=== PATIENT | female | born 1940 | race Caucasian/White ===

== ENCOUNTER 2022-08-05 10:03 | Outpatient (OUT) | payer MEDICARE, SELFPAY ==
--- NOTE | 2022-08-05 12:50 | PM.CN ---
Consult Note: HPI Data of Consult Patient: new to practice Consult date: 08/05/22 Requesting Physician: Guille Howard MD Primary Care Provider: Shruthi Monterroso MD Consult Narrative Reason for consult: Left knee pain Narrative: this is a pleasant 82-year-old female who presents for evaluation. She has increasing left knee pain that is worsened with ambulation. She previously underwent a left knee steroid injection several years ago, which provided significant relief for over a three-month period. She has not had any interventions or imaging since then. She utilizes Celebrex, which provided some relief. She otherwise denies adverse medication side effect or loss of bowel or bladder control. cc:: CC: Guille Howard MD Review of Systems ROS Status of ROS 10 or more systems reviewed and unremarkable except as noted in history and below Musculoskeletal Reports: joint pain (left knee) Exam Constitutional: Common normals: no apparent distress, oriented x3 and healthy appearing Respiratory: Common normals: normal respiratory effort Effort & inspection: able to speak in complete sentences Extremity: Common normals: normal to inspection Left lower extremity: knee joint (Tenderness to palpation. Crepitus noted with flexion and extension.) Neuro: Common normals: oriented x3, CN's II-XII intact bilaterally and no focal motor deficits Psych: Common normals: mental status grossly normal and cooperative Skin: Common normals: no rashes or lesions noted Assessment and Plan Assessment and Plan (1) Localized osteoarthritis of left knee: Plan this is a pleasant 82-year-old female who presents for evaluation. She has held physical and medical modalities, as listed above. We discussed that given her previous significant relief with a left knee injection, she may likely benefit from a repeated left knee steroid injection. Prior to this, I would like her to undergo a left knee x-ray. She is in agreement with this plan. Provided that there are no concerning acute findings, we will proceed with a left knee steroid injection. She is in agreement with this plan. Medications were reviewed, and no changes were made at this time. She will follow-up for the procedure.
== END 2022-08-05 10:04 ==
LOC: PM 10:03
PROVIDERS: PCP Specialist; Visit Provider Anesthesiology
DX: M17.12 Unilateral primary osteoarthritis, left knee (principal)
CPT/HCPCS: G0463

== ENCOUNTER 2022-08-05 11:13 | Outpatient (OUT) | payer MEDICARE, SELFPAY ==
--- NOTE | 2022-08-05 11:25 | XR_ITS ---
The [address] [address] Patient Name: BOB NEVAREZ MRN: [facility]:[id number] date: 1940 Sex: F Assigned Patient Location: [facility] Current Patient Location: [facility] Accession/Order Number: [id number] Exam Date: 08/05/2022 11:30 Report Date: 08/05/2022 13:04 At the request of: GAIL GIEDRAITIS Procedure: XR knee LT 4V EXAM: XR knee LT 4V HISTORY: Left Knee Pain COMPARISON: None. TECHNIQUE: 4 views FINDINGS: No acute fracture or dislocation. Moderate degenerative changes. Scattered calcified atherosclerotic disease of the SFA and popliteal artery. IMPRESSION: Moderate degenerative changes as described. Electronically authenticated by: PRECIOUS MAKI Date: 08/05/2022 13:04
== END 2022-08-05 11:14 ==
LOC: RAD 11:17
PROVIDERS: PCP Specialist; Visit Provider Anesthesiology
DX: M25.562 Pain in left knee (principal); M17.12 Unilateral primary osteoarthritis, left knee
CPT/HCPCS: 73564; G0463

== ENCOUNTER 2022-09-07 12:57 | Outpatient (OUT) | payer MEDICARE, SELFPAY | END 2022-09-07 12:58 | disposition home or self-care (01) | LOC: WC 12:57 | PROVIDERS: PCP Specialist; Visit Provider Podiatrist Foot & Ankle Surgery | DX: L60.3 Nail dystrophy (principal); G99.0 Autonomic neuropathy in diseases classified elsewhere; I73.89 Other specified peripheral vascular diseases | CPT/HCPCS: 11721 ==

== ENCOUNTER 2022-09-13 12:58 | Outpatient (RCR) | payer MEDICARE, SELFPAY | END 2022-09-30 11:00 | disposition home or self-care (01) | LOC: PT 12:58 | PROVIDERS: PCP Specialist; Visit Provider Family Medicine | DX: H83.09 Labyrinthitis, unspecified ear (principal) | CPT/HCPCS: 95992; 97110; 97140; 97161 ==

== ENCOUNTER 2022-09-21 12:51 | Outpatient (OUT) | payer MEDICARE, SELFPAY ==
--- NOTE | 2022-09-21 13:05 | US_ITS ---
The [address] [address] Patient Name: BOB NEVAREZ MRN: [facility]:[id number] date: 1940 Sex: F Assigned Patient Location: [place] Current Patient Location: [place] Accession/Order Number: [id number] Exam Date: 09/21/2022 13:15 Report Date: 09/21/2022 14:07 At the request of: RAMILA CASTILLO Procedure: US abdomen complete EXAM: US abdomen complete HISTORY: Right Upper Quadrant Pain COMPARISON: None. TECHNIQUE: Real-time complete abdomen ultrasound Findings: The visualized portions of the aorta and IVC are unremarkable. Evaluation of the pancreas is limited due to overlying bowel gas. The visualized portions unremarkable. The hepatic parenchyma is coarsened and echogenic. No focal intrahepatic mass. The main portal vein is patent and demonstrates hepatopedal flow. The gallbladder is surgically absent. No biliary ductal dilatation. The common bile duct measures 0.5 cm. The right and left kidneys measure 9.2 and 9.8 cm. There is a nonobstructing 1.0 x 0.6 x 0.6 cm left renal stone. No renal collecting system dilatation. Left anechoic lesions with posterior acoustic enhancement likely representing cysts. The largest is an exophytic cyst off the upper pole measuring 3.0 x 2.4 x 3.0 cm. No perinephric fluid collection. The spleen is nonenlarged measuring 11.0 cm unremarkable. No free abdominal fluid. US/US abdomen complete IMPRESSION: 1. Coarsened and echogenic hepatic parenchymal echotexture likely related to diffuse hepatocellular disease such as fatty infiltration. 2. Nonobstructing left renal stone. 3. Left renal cysts. Electronically authenticated by: EDGAR HEART Date: 09/21/2022 14:07
== END 2022-09-21 12:52 | disposition home or self-care (01) ==
LOC: US 12:52
PROVIDERS: PCP Specialist; Visit Provider Nurse Practitioner
DX: R10.11 Right upper quadrant pain (principal); N28.1 Cyst of kidney, acquired
CPT/HCPCS: 76700

== ENCOUNTER 2022-09-22 10:57 | Outpatient (OUT) | payer MEDICARE, SELFPAY ==
--- NOTE | 2022-09-22 11:03 | XR_ITS ---
[address] [address] Patient Name: BOB NEVAREZ MRN: [facility]:[id number] date: 1940 Sex: F Assigned Patient Location: Current Patient Location: [place] Accession/Order Number: [id number] Exam Date: 09/22/2022 11:10 Report Date: 09/22/2022 17:10 At the request of: RAMILA CASTILLO Procedure: XR DEXA axial skeleton EXAMINATION: XR DEXA axial skeleton, 09/22/2022 11:10 AM EDT HISTORY: Primary Ovarian Failure Z00.01 COMPARISON: 2006. TECHNIQUE: Dual-energy X-ray absorptiometry (DEXA) bone density study performed for the axial skeleton. HISTORY: Primary Ovarian Failure Z00.01 FINDINGS: Bone mineral density lumbar spine L1-L4 measures 1.451 g/sq cm. T score 2.3. WHO classification: Normal. This likely is elevated secondary to proliferative degenerative spondylosis Lowest bone mineral densities the right femoral trochanter measuring 0.637 g/sq cm. T score -1.9. WHO classification: Osteopenia. XR/XR DEXA axial skeleton IMPRESSION: Osteopenia. Moderate fracture risk Electronically authenticated by: CORDELL SANTOS Date: 09/22/2022 17:10
== END 2022-09-22 10:58 | disposition home or self-care (01) ==
LOC: US 10:57
PROVIDERS: PCP Specialist; Visit Provider Nurse Practitioner
DX: M81.0 Age-related osteoporosis without current pathological fracture (principal); E28.39 Other primary ovarian failure; M85.851 Other specified disorders of bone density and structure, right thigh
CPT/HCPCS: 77080

== ENCOUNTER 2022-10-05 09:57 | Outpatient (OUT) | payer MEDICARE, SELFPAY ==
--- NOTE | 2022-10-05 11:05 | CA_ITS ---
Patient: BOB NEVAREZ Exam Date: 10/05/2022 : 1940 Gender:F Ordering : DR NAOMY NAYLOR M.D. Admission #: [id number] Family : Order #: [id number] CLICK HERE TO VIEW EXAM ECHOCARDIOGRAM REPORT PROCEDURE: CA ECHO DOPPLER COMPLETE INDICATIONS: Aortic valve stenosis COMPARISON: None. DESCRIPTION: COMPLETE ECHOCARDIOGRAM Real-time transthoracic echocardiography with 2D, M-mode, spectral and color flow Doppler performed. QUALITY: Technical quality was good. LEFT VENTRICLE: Normal chamber size. Mild left ventricular hypertrophy. The septum is abnormal in motion, likely due to bundle branch block. Global left ventricular systolic function is normal. LV EF: Calculated left ventricular ejection fraction is 57%. DIASTOLIC: Grade I diastolic dysfunction. ATRIAL SEPTUM: LEFT ATRIUM: Mild dilatation. RIGHT ATRIUM: Normal chamber size. RIGHT VENTRICLE: Normal chamber size. Normal right ventricular systolic function. TRICUSPID VALVE: Normal mobility and thickness. No stenosis with trivial regurgitation. No evidence of pulmonary hypertension. RVSP 36 mmHg MITRAL VALVE: Normal mobility and thickness. No evidence of mitral valve stenosis. There is no mitral annular calcification. Trivial mitral regurgitation. AORTIC VALVE: Normal trileaflet appearance. Mildly calcified aortic valve. Mildly diminished mobility. Doppler velocity suggest mild aortic valve stenosis. DVI 0.5, Vmax 2.1m/s, Mean gradient 8.94 mmHg. Mild aortic regurgitation. AORTIC ROOT: Normal diameter and appearance. PULMONIC VALVE: Normal thickness and mobility. No stenosis. Trivial regurgitation. PERICARDIUM: No evidence of pericardial effusion. IVC: Collapses with inspirations. Normal size. PLEURA: CONCLUSION: 1. Mild left ventricular hypertrophy with normal global systolic function. LVEF is 55 to 60%. 2. Normal right ventricular size and systolic function. 3. Mild diastolic dysfunction. 4. Mild aortic valve stenosis with mild regurgitation. 5. Mildly elevated right-sided pressures. Adult Echocardiography Procedure Report Left Ventricle LVEDD (3.7 - 5.6 cm): 3.83 cm LVESD (2.2 - 4.0 cm): 2.71 cm LVIVS thickness (0.6 - 1.2 cm): 1.25 cm LVPW thickness (0.5 - 1.0 cm): 1.00 cm e': 0.04 m/s E - e': 16.53 LVOT Max Gradient: 4.39 mm[Hg] LVOT Area (cm2): 1.05 m/s Peak Velocity (LVOT): 1.05 m/s Mean Velocity (LVOT): 0.73 m/s LVOT Diameter 1.59 cm Left Ventricular Ejection Fraction: 56.94 % Left Atrium LA Volume Index (2D A2C): 29.28 ml/m2 Left Atrium Systolic Dimension: 2.94 cm Mitral Valve MV E to A Ratio: 0.55 Mitral Valve A-Wave Peak Velocity: 1.10 m/s Mitral Valve E-Wave Peak Velocity: 0.61 m/s Right Ventricle RV Internal Diastolic Dimension: 2.65 cm Aorta AO Root Diam: 3.29 cm Ascending Ao Diam: 3.15 cm Aortic Valve AoV Area (Peak Sami): 1.15 cm2, 0.99 cm2, 1.06 cm2, 1.06 cm2 AoV Area (VTI): 1.19 cm2, 1.01 cm2 Deceleration [place]: 1.45 m/s2 Pressure Half-Time: 739.45 ms Peak Velocity(Antegrade Flow): 2.10 m/s, 1.54 m/s, 1.98 m/s Peak Gradient(Antegrade Flow): 17.69 mm[Hg], 9.47 mm[Hg], 15.65 mm[Hg] Mean Velocity(Antegrade Flow): 1.38 m/s, 1.02 m/s Mean Gradient(Antegrade Flow): 8.94 mm[Hg], 4.84 mm[Hg] Velocity Time Integral: 39.10 cm, 27.13 cm Tricuspid Valve Peak Velocity (Regurgitant Flow): 2.87 m/s, 2.39 m/s, 2.71 m/s Pulmonic Valve Mean Gradient: 2.89 mm[Hg], 4.00 mm[Hg] Mean Velocity: 0.78 m/s, 0.91 m/s Peak Velocity: 1.36 m/s Peak Gradient: 5.83 mm[Hg], 9.25 mm[Hg] Right Atrium Right Atrium Systolic Pressure: 22.70 ml, 22.70 ml Dictated by: Naomy Naylor M.D. on 10/06/2022 at 13:08 Approved by: Naomy Naylor M.D. on 10/06/2022 at 13:13
== END 2022-10-05 09:58 | disposition home or self-care (01) ==
LOC: CARD 09:57
PROVIDERS: PCP Specialist; Visit Provider Internal Medicine Interventional Cardiology
DX: I35.0 Nonrheumatic aortic (valve) stenosis (principal)
CPT/HCPCS: 93306

== ENCOUNTER 2022-11-24 17:02 | Outpatient (RCR) | payer MEDICARE, SELFPAY | END 2022-12-10 16:37 | disposition home or self-care (01) | LOC: PT 17:02 | PROVIDERS: PCP Family Medicine; Visit Provider Family Medicine | DX: R42 Dizziness and giddiness (principal) | CPT/HCPCS: 97140; 97161 ==

== ENCOUNTER 2022-12-28 13:05 | Outpatient (OUT) | payer MEDICARE, SELFPAY | END 2022-12-28 13:06 | disposition home or self-care (01) | LOC: WC 13:05 | PROVIDERS: PCP Family Medicine; Visit Provider Podiatrist Foot & Ankle Surgery | DX: L60.3 Nail dystrophy (principal); G90.9 Disorder of the autonomic nervous system, unspecified; I73.9 Peripheral vascular disease, unspecified; B35.1 Tinea unguium | CPT/HCPCS: 11721 ==

== ENCOUNTER 2023-02-09 10:51 | Outpatient (OUT) | payer MEDICARE, SELFPAY ==
[2023-02-09 12:24] LABS: Alanine Aminotransferase 34 U/L (14-59); Albumin Globulin Ratio 1.1; Albumin Level 3.9 g/dL (3.4-5.0); Alkaline Phosphatase 83 U/L (46-116); Aspartate Amino Transferase 25 U/L (15-37); Bilirubin Direct 0.2 mg/dL (0.0-0.2); Bilirubin Total 0.9 mg/dL (0.2-1.0); Globulin 3.5 g/dL; Total Protein 7.4 g/dL (6.4-8.2)
[2023-02-10 06:09] LABS: HBsAg Screen Negative (Negative); HCV Ab Non Reactive (Non Reactive); Hep A Ab, Total Negative (Negative); Hep B Core Ab, Tot Negative (Negative); Hepatitis B Surf Ab Quant 27.4 mIU/mL (Immunity>9.9)
== END 2023-02-09 10:52 | disposition home or self-care (01) ==
LOC: LAB 10:53
PROVIDERS: PCP Family Medicine
DX: R10.11 Right upper quadrant pain (principal)
CPT/HCPCS: 36415; 80076; 86704; 86706; 86708; 86803; 87340

== ENCOUNTER 2023-03-22 13:30 | Outpatient (OUT) | payer MEDICARE, SELFPAY ==
--- OUTSIDE RECORDS SUMMARY | 2023-03-22 13:35 | XMS_ITS | CCD ---
Author Name Unknown Address [address] [place] [address] Organization [facility] Care Team Providers Care Patent Chemist Name Role Phone SHRUTHI MONTERROSO Primary Care Unavailable SHRUTHI MONTERROSO Referring Unavailable SUSANA OSAMA Admitting Unavailable SUSANA OSAOTTO Attending Unavailable IA Procedure Practitioner Unavailab BERTHA Ahumada Surgeon Unavailable CASEY GARSIA Attending Unavailable CASEY GARSIA Admitting Unavailable MONTERROSO ., DR SHRUTHI Yanes Primary Care Unavailable CASEY GARSIA Attending Unavailable MONTERROSO ., DR SHRUTHI Yanes Primary Care Unavailable CASEY GARSIA Admitting Unavailable TAISHA EATON Admitting Unavailable TAISHA EATON Consulting Unavailable TAISHA EATON Attending Unavailable MONTERROSO ., DR SHRUTHI Yanes Primary Care Unavailable MONTERROSO ., DR SHRUTHI Yanes Primary Care Unavailable MONTERROSO ., DR SHRUTHI Yanes Consulting Unavailable MONTERROSO ., DR SHRUTHI Yanes Attending Unavailable MONTERROSO ., DR SHRUTHI Yanes Admitting Unavailable MONTERROSO ., DR SHRUTHI Yanes Primary Care Unavailable MONTERROSO ., DR SHRUTHI Yanes Consulting Unavailable MONTERROSO ., DR SHRUTHI Yanes Attending Unavailable MONTERROSO ., DR SHRUTHI Yanes Admitting Unavailable MONTERROSO ., DR SHRUTHI Yanes Primary Care Unavailable MONTERROSO ., DR SHRUTHI Yanes Attending Unavailable MONTERROSO ., DR SHRUTHI Yanes Admitting Unavailable CASEY GARSIA Attending Unavailable MONTERROSO ., DR SHRUTHI Yanes Primary Care Unavailable CASEY GARSIA Admitting Unavailable CASEY GARSIA Attending Unavailable MONTERROSO ., DR SHRUTHI Yanes Primary Care Unavailable CASEY GARSIA Admitting Unavailable Yaniv De La Garza. Primary Care Physician SHAHBAZ SCHULTZ Attending Unavailable Asaad, Imad Unavailable Asaad, Imad Admitting Unavailable Clintad, Imad Attending Unavailable Yaniv De La Garza Primary Care Unavailable SHRUTHI MONTERROSO Attending Unavailable Yaniv De La Garza. Attending Unavailable Ross, Yaniv E. Attending Unavailable Yaniv De La Garza Attending Unavailable Marlee Malcolm Attending Unavailable Marlee Malcolm Attending Unavailable SHRUTHI MONTERROSO Admitting Unavailable SHRUTHI MONTERROSO Attending Unavailable Marlee Malcolm Attending Unavailable Marlee Malcolm Admitting Unavailable Joy Harper Attending Unavaila Yaniv Marshall Referring Unavailable Marlee Malcolm Attending Unavailable Marlee Malcolm Attending Unavailable Yaniv De La Garza Attending Unavailable SHRUTHI MONTERROSO Attending Unavailable Allergies Allergy Classification Reported Allergen(s) Allergy Type Date of Onset Reaction(s) Facility (1 source) Hicks powder; Translations: [hicks powder] Propensity to adverse reactions (disorder) [address] [facility] Rep[facility] (1 source) eggplant extract Drug Allergy [address] [facility] (3 sources) Sulfonamides (Antibiotic); Translations: [SULFA (SULFONAMIDE ANTIBIOTICS)] Propensity to adverse reactions (disorder) [address] [facility] (1 source) HYDROcodone Drug Allergy 0 [facility] (1 source) Sulfonamides (Antibiotic) Drug allergy (disorder) 3 [facility] (2 sources) Amoxicillin / Clavulanate; Translations: [amoxicillin-cla vulanate] Drug Allergy Unknown (qualifier value) [facility] (3 sources) Fluconazole; Translations: [fluconazole] Drug Allergy 3 Unknown (qualifier value) [facility] (2 sources) Sulfonamides (Antibiotic); Translations: [sulfa drugs] Drug allergy Unknown (qualifier value) [facility] (3 sources) traMADol; Translations: [tramadol] Drug Allergy 3 Unknown (qualifier value) [facility] (1 source) AMOXICILLIN-POT CLAVULANATE; Translations: [AMOXICILLIN-POT CLAVULANATE] Propensity to adverse reactions to drug (disorder) 3 [facility] Medications Current Medications Medication Drug Class(es) Dates Sig (Normalized) Sig (Original) ProAir HFA (1 source) beta2-Adrenergic Agonist Start: 09-08-2022 ProAir HFA Inhalation, q6hr Wheezing, Refill(s) 0 Start Date: 09/08/22 Status: Ordered Aspir-81 (2 sources) Aspir-81 Active aspirin 81 mg oral tablet (1 source) Platelet Aggregation Inhibitor, Nonsteroidal Anti-inflammatory Drug Start: 09-08-2022 take 81 mg by mouth once daily aspirin 81 mg, Oral, Daily, Refills(s) 0 Start Date: 09/08/22 Status: Ordered Symbicort (3 sources) Corticosteroid, beta2-Adrenergic Agonist Start: 09-08-2022 Symbicort 80/4.5, Inhalation, BID, Refill(s) 0 Start Date: 09/08/22 Status: Ordered take 2 puff(s) by inhalation twi ce daily Symbicort 80-4.5 MCG/ACT 2 puffs Inhalation Twice a day Active Symbicort Active Calcium Carbonate (3 sources) Start: 09-08-2022 Tums mg, Chewe d, Daily, Refills(s) 0 Start Date: 09/08/22 Status: Ordered Tums Active candesartan cilexetil 4 mg oral tablet (2 sources) Angiotensin 2 Receptor Mily Start: 09-08-2022 take 1 tablet by mouth once daily Atacand 4 mg Tab 4 mg = 1 tab(s), Oral, Daily, # 90 tab(s), Refills(s) 0, Pharmacy: [facility], 148, cm, 09/08/22 11:37:00 EDT, Height/Length Dosing, 63.6, kg, 09/08/22 11:37:00 EDT, Weight Dosing Start Date: 09/08/22 Status: Ordered Candesartan Cilexetil-HCTZ (1 source) Candesartan Cilexetil-HCTZ Active celecoxib 200 mg oral capsule (3 sources) Nonsteroidal Anti-inflammatory Drug Start: 07-05-2022 take 1 capsule by mouth twice daily as needed for pain celecoxib 200 mg Cap 200 mg = 1 cap(s), Oral, BID, as needed for pain, Refills(s) 0 Start Date: 07/05/22 Status: Ordered Celecoxib Active digoxin 0.125 mg oral tablet (3 sources) Cardiac Glycoside Start: 07-05-2022 take 1 tablet by mouth once daily digoxin 125 mcg (0.125 mg) Tab 125 mcg = 1 tab(s), Oral, Daily, Refills(s) 0 Start Date: 07/05/22 Status: Ordered Digoxin Active ICaps AREDS 2 (1 source) Start: 07-05-2022 ICaps AREDS 2 See Instructions, Refill(s) 0, take 2 orally daily Start Date: 07/05/22 Status: Ordered levothyroxine sodium 0.05 mg oral tablet (3 sources) l-Thyroxi ne Start: 07-05-2022 take 1 tablet by mouth once daily levothyroxine 50 mcg (0.05 mg) Tab 50 mcg = 1 tab(s), Oral, Daily, Refills(s) 0 Start Date: 07/05/22 Status: Ordered Levothyroxine So dium Active meclizine hydrochloride 25 mg oral tablet (1 source) Antiemetic Start: 08-25-2022 take 1 tablet by mouth every eight hours as needed for dizziness meclizine 25 mg Tab 25 mg = 1 tab(s), Oral, q8hr, as needed for dizziness, # 30 tab(s), Refills(s) 0, Pharmacy: [facility]/pharmacy #[id number], 147.8, cm, 07/26/22 15:28:00 EDT, Height/Length Dosing, 63.6, kg, 07/26/22 15:28:00 EDT, Weight Dosing Start Date: 08/25/22 Status: Ordered 24 hr metoprolol succinate 25 mg extended release oral tablet (2 sources) beta-Adrenergic Mily Start: 07-05-2022 take 1 tablet by mouth at bedtime metoprolol 25 mg ER Tab 25 mg = 1 tab(s), Oral, Bedtime, Refills(s) 0 Start Date: 07/05/22 Status: Ordered Metoprolol Tartr ate Not-Taking montelukast 10 mg oral tablet (3 sources) Leukotriene Receptor Antagonist Start: 08-22-2022 take 1 tablet by mouth once daily montelukast 10 mg Tab 10 mg = 1 tab(s), Oral, Daily, # 90 tab(s), Refills(s) 3, Pharmacy: [facility], 147.8, cm, 07/26/22 15:28:00 EDT, Height/Length Dosing, 63.6, kg, 07/26/22 15:28:00 EDT, Weight Dosing Start Date: 08/22/22 Status: Ordered Montelukast Sodi um Active PreserVision AREDS (2 sources) PreserVision ARE DS Active spironolactone 25 mg oral tablet (3 sources) Aldosterone Antagonist Start: 07-06-19 take 1 tablet by mouth once daily spironolactone 25 mg Tab 25 mg = 1 tab(s), Oral, Daily, Refills(s) 0 Start Date: 07/05/22 Status: Ordered Spironolactone A ctive Tylenol Extra Strength (1 source) Start: 09-08-2022 take 500 mg by mouth twice daily as needed for pain Tylenol Extra Strength 500 mg, Oral, BID, PRN as needed for pain, Refills(s) 0 Start Date: 09/08/22 Status: Ordered Problems Active Problems Problem Classification Problem Date Documented Date Episodic/Chronic Abdominal pain (3 sources) Right upper quadrant pain; Translations: [Right upper quadrant pain] Episodic Acquired foot deformities (1 source) Foot-drop 09-08-2022 Episodic Asthma (1 source) Asthma 09-08-2022 Chronic Conditions associated with dizziness or vertigo (5 sources) Benign paroxysmal vertigo, unspecified ear; Translations: [Labyrinthitis] Onset: 12-23-19 Episodic Conduction disorders (2 sources) Left bundle-branch block, unspecified; Translations: [Left bundle-branch block, unspecified] Onset: 10-21-19 Chronic Disorders of lipid metabolism (1 source) Hypercholesterolemia 07-05-2022 Chronic Diverticulosis and diverticulitis (1 source) Diverticular disease 07-05-2022 Chronic Essential hypertension (3 sources) Hypertensive disorder; Translations: [Essential (primary) hypertension] Onset: 10-21-1907-05-2022 Chronic Heart valve disorders (6 sources) Nonrheumatic aortic (valve) stenosis; Translations: [NONRHEUMATIC AORTIC VALVE STENOSIS] Onset: 07-20-19 Chronic Heart valve disorders (1 source) Heart murmur 07-05-2022 Episodic Comment on above: bicuspid aortic valv e Osteoarthritis (1 source) Osteoarthritis of hip 07-05-2022 Chronic Osteoporosis (1 source) Osteoporosis 07-05-2022 Chronic 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 OPERATOR infection and poliomyelitis (1 source) 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 Other gastrointestinal disorders (2 sources) Dysphagia; Translations: [Dysphagia, unspecified] Episodic Other hereditary and degenerative nervous system conditions (1 source) Restless legs 07-05-2022 Chronic Other liver diseases (2 sources) Steatosis of liver; Translations: [Fatty (change of) liver, not elsewhere classified] 07-05-2022 Chronic Other liver diseases (2 sources) Fatty (change of) liver, not elsewhere classified; Translations: [Fatty (change of) liver, not elsewhere classified] Onset: 12-28-19 Chronic Other nervous system disorders (1 source) Disorder of the autonomic nervous system, unspecified; Translations: [DISORDER AUTONOMIC NERVOUS SYS UNS] Onset: 03-11-19 Chronic Other nervous system disorders (1 source) Other disorders of autonomic nervous system; Translations: [OTH DISORDERS AUTONOMIC NERVOUS SYS] Onset: 12-11-19 Chronic Other nutritional; endocrine; and metabolic disorders (1 source) Overweight 07-05-2022 Episodic Other skin disorders (4 sources) Nail dystrophy; Translations: [NAIL DYSTROPHY] Onset: 06-09-19 Episodic Other upper respiratory disease (1 source) Allergic rhinitis 07-05-2022 Chronic Peripheral and visceral atherosclerosis (1 source) Peripheral vascular disease, unspecified; Translations: [PERIPHERAL VASCULAR DISEASE UNS] Onset: 03-11-19 Chronic Spondylosis; intervertebral disc disorders; other back problems (3 sources) Cervical spondylosis; Translations: [Lumbar spondylosis] 07-05-2022 Chronic Thyroid disorders (1 source) Hypothyroidism 07-05-2022 Chronic Unclassified (3 sources) COUGH, UNSPECIFIED; Translations: [COUGH, UNSPECIFIED] Onset: 09-11-19 Viral infection (1 source) COVID-19; Translations: [COVID-19] Onset: 09-11-19 Past or Other Problems Problem Classification Problem Date Documented Da te Episodic/Chronic Mycoses (2 sources) Tinea unguium; Translations: [Dermatophytosis, unspecified] Onset: 03-11-2022 Episodic Other circulatory disease (4 sources) Other specified symptoms and signs involving the circulatory and respiratory systems; Translations: [OTH SPEC SX SIGNS INVLV CIRC RS] Onset: 01-03-2022 Episodic Other skin disorders (1 source) Onychogryphosis; 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] Onset: 09-02-2021 Episodic Unclassified (1 source) COUGH, UNSPECIFIED; Translations: [COUGH, UNSPECIFIED] Onset: 09-07-2021 Results Test Name Value Interpretation Reference Range April tate Retail - Clinical Noteon Retail - Clinical Note [id number] 0TIFF Normal [facility] Ambulatory Visit Summaryon 1 Ambulatory Visit Summary UNA GOMEZ :1940 Visit Date:03/03/2023 Ambulatory Visit Instructions Your Diagnosis Body mass index [BMI] 28.0-28.9, adult Non-smoker Your Care Team Attending Physician - Marlee Martinez Primary Care Physician - Yaniv De La Garza MD This Is Your Medications List acetaminophen (Tylenol Extra Strength) albuterol (ProAir HFA) aspirin budesonide-formoterol (Symbicort) calcium carbonate (Tums) candesartan (Atacand 4 mg Tab) celecoxib (celecoxib 200 mg Cap) digoxin (digoxin 125 mcg (0.125 mg) Tab) levothyroxine (levothyroxine 50 mcg (0.05 mg) Tab) meclizine (meclizine 25 mg Tab) metoprolol (metoprolol 25 mg ER Tab) montelukast (montelukast 10 mg Tab) multivitamin with minerals (ICaps AREDS 2) spironolactone (spironolactone 25 mg Tab) Procedures Performed Cataracts, Cholecystectomy, Shoulder replacement. Discharge Vitals Temperature (Tympanic) 36.4 ?C Heart Rate (Peripheral) 88 Respiratory Rate 18 Blood Pressure 124/70 Height 148 cm Height 58 in Weight 64.1 kg Weight 141.02 lb BMI 29.26 What to do next Scheduled Follow-Up Appointments Monday 1:15 PM EST With: Yaniv De La Garza MD Where: [facility] Normal [address] [place] [id number].br\ Medications\.br\ What How Much When Instructions\.br \ Unchanged acetaminophen (Tylenol Extra Strength) 500 Milligram By Mouth 2 times a day as needed for as needed for pain\.br\ Unchanged albuterol (ProAir HFA) Inhalation Every 6 hours as needed for Wheezing\.br\ Unchanged aspirin 81 Milligram By Mouth Every day\.br\ Unchanged budesonide-formo terol (Symbicort) 80/4.5 Inhalation 2 times a day\.br\ Unchanged calcium carbonate (Tums) Chewed Every day\.br\ Unchanged candesartan (Atacand 4 mg Tab) 1 Tablets By Mouth Every day\.br\ Unchanged celecoxib (celecoxib 200 mg Cap) 1 Capsules By Mouth 2 times a day as needed for pain \.br\ Unchanged digoxin (digoxin 125 mcg (0.125 mg) Tab) 1 Tablets By Mouth Every day Duration: 90 Days\.br\ Unchanged levothyroxine (levothyroxine 50 mcg (0.05 mg) Tab) 1 Tablets By Mouth Every day\.br\ Unchanged meclizine (meclizine 25 mg Tab) 1 Tablets By Mouth Every 8 hours as needed for dizziness \.br\ Unchanged metoprolol (metoprolol 25 mg ER Tab) 1 Tablets By Mouth At bedtime\.br\ Unchanged montelukast (montelukast 10 mg Tab) 1 Tablets By Mouth Every day\.br\ Unchanged multivitamin with minerals (ICaps AREDS 2) See instructions take 2 orally daily \.br\ Unchanged spironolactone (spironolactone 25 mg Tab) 1 Tablets By Mouth Every day\.br\ Allergies\.br\ Augmentin (Unknown)\.br\ Diflucan (Unknown)\.br\ sulfa drugs (Unknown)\.br\ traMADol (Unknown)\.br\ Problems\.br\ Ongoing - Any problem that you are currently receiving treatment for.\.br\ Age-related osteoporosis without current pathological fracture\.br\ Asthma\.br\ Cervical spondylosis\.br\ Diverticular disease\.br\ Foot drop\.br\ Hypercholesterol emia\.br\ Hypothyroidism\. 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 Please share your experience with us by completing your survey. We appreciate your feedback and thank you for choosing us for your care.\.br\ \.br\ [facility] Family Medicine Office/Clini c Noteon 03-03-2023 Family Medicine Office/Clinic Note HPI Staff Una is a 82 year old female presenting for acute sick visit Respiratory C/O: Onset: 3 days Body aches: no Chest congestion: no Chills: no Cough: yes Sputum production: no Sore throat: no Ear complaints: no pressure and itching right ear worse Eye itching/watering: no Fever: no Headache: no Nasal congestion: yes Nasal discharge: yes Post nasal drip: yes Poor appetite: yes Reduced activity: no Sinus pain/pressure: no Sneezing: yes Wheezing: no Ill contacts: yes Remedies tried: emergent-c Questions/Concerns: pt needs refills on spironolactone, metoprolol and levothyroxine History of Present Illness pt presents today wit URI symptoms Review of Systems PHQ Score Initial Depression Screen Score: 0 SCORE ROS - Provider Constitutional: no fever, no chills, no sweats, no fatigue Respiratory: no shortness of breath, yes cough, no orthopnea, no wheezing. nasal congestion, ear pressure Cardiovascular: no chest pain, no palpitations, no edema. Neurologic: no headache, no dizziness, no numbness, no weakness. Physical Exam Vitals & Measurements T: 36.4 ?C(Tympanic) HR: 88(Peripheral) RR: 18 BP: 124/70 SpO2: 95% HT: 58 in HT: 148 cm WT: 64.1 kg WT: 141.02 lb BMI: 29.26 General: alert, no acute distress ENMT: oral mucosa moist, no pharyngeal erythema or exudate Cardiovascular: regular rate and rhythm, normal peripheral perfusion Respiratory: Lungs CTA, respirations non labored Extremities: no deformity, no trauma Neurological: oriented x 4, LOC appropriate for age, CN II-XII intact, motor strength equal & normal bilaterally, speech normal CHRISTOPHER ear canals impacted with cerumen Assessment/Plan 1. Cough (R05.9: Cough, unspecified) pt c/o worsening cough. has asthma and when she get URI's it sometimes turns into pneumonia. will treat with z teresa, medrol dose pack and tessalon pearls. samples of mucinex provided. RTC as needed 2. Nasal congestion (R09.81: Nasal congestion) pt c/o nasal congestion and sinus pressure 3. Body mass index [BMI] 28.0-28.9, adult (Z68.28: Body mass index [BMI] 28.0-28.9, adult) BMI education complete Ordered: azithromycin, = 1 packet(s), Oral, As Directed, as directed on package labeling, X 5 day(s), # 6 tab(s), Refills(s) 0, Pharmacy: [facility] #[id number], 148, cm, 03/03/23 13:51:00 EST, Height/Length Dosing, 64.1, kg, 03/03/23 13:51:00 EST, Weight Dosing benzonatate, 200 mg = 1 cap(s), Oral, TID, X 7 day(s), # 21 cap(s), Refills(s) 0, Pharmacy: [facility] #[id number], 148, cm, 03/03/23 13:51:00 EST, Height/Length Dosing, 64.1, kg, 03/03/23 13:51:00 EST, Weight Dosing 4. Non-smoker (Z78.9: Other specified health status) continue not smoking Ordered: azithromycin, = 1 packet(s), Oral, As Directed, as directed on package labeling, X 5 day(s), # 6 tab(s), Refills(s) 0, Pharmacy: [facility] #[id number], 148, cm, 03/03/23 13:51:00 EST, Height/Length Dosing, 64.1, kg, 03/03/23 13:51:00 EST, Weight Dosing benzonatate, 200 mg = 1 cap(s), Oral, TID, X 7 day(s), # 21 cap(s), Refills(s) 0, Pharmacy: [facility] #[id number], 148, cm, 03/03/23 13:51:00 EST, Height/Length Dosing, 64.1, kg, 03/03/23 13:51:00 EST, Weight Dosing 5. Cerumen impaction (H61.20: Impacted cerumen, unspecified ear) pt encouraged to get debrox ear drops and use for 1 week then make nurse visit appointment for irrigation Orders: methylPREDNISolone, = 1 packet(s), Oral, Once, as directed on package labeling, # 21 tab(s), Refills(s) 0, Pharmacy: [facility]acy #[id number], 148, cm, 03/03/23 13:51:00 EST, Height/Length Dosing, 64.1, kg, 03/03/23 13:51:00 EST, Weight Dosing Follow-up No qualifying data available Problem List/Past Medical History Ongoing Age-related osteoporosis without current pathological fracture Asthma Cerumen impaction Cervical spondylosis Cough Diverticular disease Foot drop Hypercholesterolemia Hypothyroidism Labyrinthitis Lumbar spondylosis Murmur Nasal congestion Non-seasonal allergic rhinitis due to pollen Osteoarthritis of hip Osteopenia Over weight Post-poliomyelitis muscular atrophy Primary hypertension Restless legs syndrome Right upper quadrant pain Squamous cell carcinoma in situ Steatosis of liver Thoracic spondylosis Historical No qualifying data Procedure/Surgical History Cataracts, Cholecystectomy, Shoulder replacement. Medications aspirin, 81 mg, Oral, Daily Atacand 4 mg Tab, 4 mg= 1 tab(s), Oral, Daily, 1 refills azithromycin 250 mg Tab, 1 packet(s), Oral, As Directed benzonatate 200 mg oral capsule, 200 mg= 1 cap(s), Oral, TID celecoxib 200 mg Cap, 200 mg= 1 cap(s), Oral, BID, 1 refills digoxin 125 mcg (0.125 mg) Tab, 125 mcg= 1 tab(s), Oral, Daily, 3 refills ICaps AREDS 2, See Instructions levothyroxine 50 mcg (0.05 mg) Tab, 50 mcg= 1 tab(s), Oral, Daily, 1 refills meclizine 25 mg Tab, 25 mg= 1 tab(s), Oral, q8hr methylPREDNISolone 4 mg tab dosepak, 1 packet(s), Oral, Once metoprolol 25 m (more content not included)... Normal [facility] Comment on above: Result Comment: Elec tronically Signed By: Marlee Martinez\.br\Date and Time Signed: 03/03/23 15:50 EST Consultation Noteon 12-28-19 Consultation Note [id number] [facility] Immunization Recordson 12-20 Immunization Records [id number] [facility] Discharge Note - PTon 2022 Discharge Note - PT [id number] [facility] Plan of Care - PT/OT/Speecho n 11-28-2022 Plan of Care - PT/OT/Speech [id number] 0CD:[address] [facility] Office Visiton 10-20-2022 Follow-up visit [id number] Una Gomez 1940 F Date Provider Department Center 10/20/2022 [id number] SCHULTZ CARD [facility] No family history on file Level of Service:05127 [place] OFFICE/OUTPATIENT ESTABLISHED LOW MDM 20-29 MIN Reason for Visit and Comments: Follow-up [135655] - Yearly follow up - go over echo results Normal [facility] Physician Referralon 023 Physician Referral [id number] CD:127 Normal [facility] Discharge Note - PTon 2022 Discharge Note - PT [id number] 0CD:127 Normal [facility] Dexa Scanson 09-27-2022 Dexa Scans [id number] 0CD:127 Normal [facility] Dexa Scanson 09-26-2022 Dexa Scans [id number] 0CD:127 Normal [facility] Family Medicine Office/Clini c Noteon 09-22-2022 Family Medicine Office/Clinic Note Chief Complaint establish care HPI Staff establish care Establish Care: History: asthma. htn, hypothyroid, hypercholesterolemia Last provider: Loc Any recent labs: 06/2021 Health Maintenance UTD: Colonoscopy: aged out not opposed to doing the cologard if you feel necessary Mammogram: doesn't get them anymore Pelvic/Pap: aged out covid: UTD Acute: Current issues/complaints: saw Marlee on monday for right side pain, toradol shot really helped, didn't start the medro dosepak due to already had vertigo and that was a side effect. Still having the vertigo will need her symbicort refilled ([facility]) there's another but she can't remember the other History of Present Illness Una Gomez is an 82-year-old female who presents today for a follow-up evaluation. She is still experiencing abdominal pain. She recently received an injection, which calmed everything down. It does not hurt right now, but she feels uncomfortable. She suspected that nuts can aggravate the pain, so she quit eating them. She had her gallbladder removed a couple of years ago. She states that it has always felt kind of wearing in there. She has an ultrasound coming up. She had a biopsy done. She states that it was a carcinoma. She has vertigo that is not going away. She has gone to physical therapy twice. The first time she went, she felt great. During the week she overdid it, she got too tired again and it started coming back. The last time she went to physical therapy last week, it did not go away. She has a follow-up appointment tomorrow. She has been trying to drink more water. She was prescribed a steroid which you can take many pills in a day then decreased it, but she was reading it and it said that it might cause dizziness so she has not taken it yet. She wants to get rid with the dizziness. Her dizziness was really bad this week. She has asthma and uses a Symbicort inhaler. Review of Systems PHQ Score Initial Depression Screen Score: 0 Physical Exam Vitals & Measurements T: 36.4 ?C(Oral) HR: 78(Peripheral) RR: 14 BP: 122/80 SpO2: 98% HT: 58 in HT: 148 cm WT: 63.14 kg WT: 138.908 lb BMI: 28.83 General: alert, no acute distress ENMT: oral mucosa moist, no pharyngeal erythema or exudate Cardiovascular: regular rate and rhythm, normal peripheral perfusion Respiratory: Lungs CTA, respirations non labored Extremities: no deformity, no trauma Neurological: oriented x 4, LOC appropriate for age, CN II-XII intact, motor strength equal & normal bilaterally, speech normal Assessment/Plan Total time spent preparing for the encounter, evaluating and assessing the patient, documenting the visit, and ordering appropriate follow-up work was 50 minutes. 1. Primary hypertension (I10: Essential (primary) hypertension) Patient's blood pressure is at goal. No concerns at this time. Continue on home medication. 2. Hypercholesterolemia (E78.00: Pure hypercholesterolemia, unspecified) Patient's cholesterol is low, a total of 107 mg/dL, triglycerides are 151mg/dL, HDL is 30 mg/dL, and LDL is 60 mg/dL. Patient is not on any cholesterol medicine at this time, so we will continue holding off for adding any cholesterol medication. Unsure where the hypercholesterolemia came from other than the triglycerides and at this time we will not be treating just a sole triglyceride issue. 3. Hypothyroidism, unspecified type (E03.9: Hypothyroidism, unspecified) Reviewed labs. Patient is doing well with her medication and the dosage. We will continue medication as before. 4. Age-related osteoporosis without current pathological fracture (M81.0: Age-related osteoporosis without current pathological fracture) Patient has not had any fracture. Patient takes calcium for this. 5. Labyrinthitis, unspecified laterality (H83.09: Labyrinthitis, unspecified ear) We will try low dose steroid to decrease the inflammation, increase hydration. Patient already has meclizine for this. Patient can take a half of meclizine as this helps her. Patient continues to see physical therapy, but encouraged the patient to continue with hydration to help. 6. Non-seasonal allergic rhinitis due to pollen (J30.1: Allergic rhinitis due to pollen) 7. Diverticular disease (K57.90: Diverticulosis of intestine, part unspecified, without perforation or abscess without bleeding) No issues at this time 8. BMI 28.0-28.9,adult (Z68.28: Body mass index [BMI] 28.0-28.9, adult) 9. Overweight (E66.3: Overweight) 10. Steatosis of liver (K76.0: Fatty (change of) liver, not elsewhere classified) This may be the cause of the pain in the right upper quadrant. Labs for the liver are within normal limits, so we will wait for the ultrasound. 11. 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 Do not see any statement about if clean margins have been taken. Unsure what the next steps are with this, so we will call the dermatology group this week to see what (more content not included)... [facility] Comment on above: Result Comment: Elec tronically Signed By: Yaniv De La Garza MD\.br\Date and Time Signed: 09/22/22 12:58 EDT\.br\Electronically Co-Signed By: Anneliese Anguiano\.br\Date and Time Co-Signed: 09/19/22 12:41 EDT\.br\Electronically Co-Signed By: Anneliese Anguiano\.br\Date and Time Co-Signed: 09/19/22 12:42 EDT Physician Referralon 023 Physician Referral [id number] 0CD:[address] [facility] RAD - Ultrasound Reporton RAD - Ultrasound Report [id number] 0CD:[address] [facility] Consenton 09-19-2022 Consent [id number] 0CD:[address] [facility] PT - Progress Noteson 2022 PT - Progress Notes [id number] 0CD:[address] [facility] Family Medicine Office/Clini c Noteon 09-16-2022 Family Medicine Office/Clinic Note Chief Complaint right side pain HPI Staff Una is an 82 year old presents with severe back pain, worsening on right side, started Wed. woke up with whole right side of back and rolled around to the middle, has had her gallbladder out and it's in that area now. ALso been dealing with vertigo for a few weeks did PT monday and felt great but over did it and vertigo is flared Pain characteristics: Pain location: right side of back and rotates around to the front in [facility] area Intensity:06/13 Onset: Mon woke this way Medication used: nothing but has tried stretching Opioids prescribed: n/a Medication agreement UTD: n/a Urine drug screen performed:n/a History of Present Illness pt presents today with R upper quadrant pain Review of Systems PHQ Score Initial Depression Screen Score: 0 ROS - Provider Constitutional: no fever, no chills, no sweats, no fatigue Respiratory: no shortness of breath, no cough, no orthopnea, no wheezing. Cardiovascular: no chest pain, no palpitations, no edema. Neurologic: no headache, no dizziness, no numbness, no weakness. right upper quadrant pain Physical Exam Vitals & Measurements HR: 82(Peripheral) RR: 16 BP: 118/66 SpO2: 93% HT: 58 in HT: 148 cm WT: 63.3 kg WT: 139.26 lb BMI: 28.9 General: alert, no acute distress ENMT: oral mucosa moist, no pharyngeal erythema or exudate Cardiovascular: regular rate and rhythm, normal peripheral perfusion Respiratory: Lungs CTA, respirations non labored Extremities: no deformity, no trauma Neurological: oriented x 4, LOC appropriate for age, CN II-XII intact, motor strength equal & normal bilaterally, speech normal negative rebound tenderness to abdomen. Assessment/Plan 1. Right upper quadrant pain (R10.11: Right upper quadrant pain) pt c/o right upper quadrant pain. she does not have her gallbladder. pt states the pain is the worst when she tries to get out of bed. then it lessens as she starts to move around. all questions answered. pt has appointment with Dr. De La Garza on Monday to establish care with him. I feel this pain may be musculoskeletal. Will give dose of toradol and a medrol dose pack for inflammation. will order abdominal ultrasound as well. order faxed to [facility] Ordered: methylPREDNISolone, = 1 packet(s), Oral, As Directed, as directed on package labeling, X 6 day(s), # 21 tab(s), Refills(s) 0, [id number], 148, cm, 09/16/22 15:05:00 EDT, Height/Length Dosing, 63.3, kg, 09/16/22 15:05:00 EDT, Weight Dosing 2. BMI 28.0-28.9,adult (Z68.28: Body mass index [BMI] 28.0-28.9, adult) BMI education complete Ordered: methylPREDNISolone, = 1 packet(s), Oral, As Directed, as directed on package labeling, X 6 day(s), # 21 tab(s), Refills(s) 0, [id number], 148, cm, 09/16/22 15:05:00 EDT, Height/Length Dosing, 63.3, kg, 09/16/22 15:05:00 EDT, Weight Dosing Body Mass Index (BMI) documented 3008F Current tobacco non-user 1036F Depression Screening Negative 3352F Fall Risk Screen 2 or more w/injury 1100F Influenza immunization administered or previously received 4274F Most recent diastolic blood pressure <80 mm Hg 3078F Systolic BP <130 mm Hg (Most Recent) 3074F 3. Over weight (E66.3: Overweight) see above Ordered: methylPREDNISolone, = 1 packet(s), Oral, As Directed, as directed on package labeling, X 6 day(s), # 21 tab(s), Refills(s) 0, [id number], 148, cm, 09/16/22 15:05:00 EDT, Height/Length Dosing, 63.3, kg, 09/16/22 15:05:00 EDT, Weight Dosing Body Mass Index (BMI) documented 3008F Current tobacco non-user 1036F Depression Screening Negative 3352F Fall Risk Screen 2 or more w/injury 1100F Influenza immunization administered or previously received 4274F Most recent diastolic blood pressure <80 mm Hg 3078F Systolic BP <130 mm Hg (Most Recent) 3074F Follow-up No qualifying data available Problem List/Past Medical History Ongoing Allergic rhinitis Asthma Cervical spondylosis Diverticular disease Foot drop Hypercholesterolemia Hypertension Hypothyroid Labyrinthitis Lumbar spondylosis Murmur Osteoarthritis of hip Osteoporosis Over weight Post-poliomyelitis muscular atrophy Restless legs syndrome Right upper quadrant pain Steatosis of liver Thoracic spondylosis Historical No qualifying data Procedure/Surgical History Cataracts, Cholecystectomy, Shoulder replacement. Medications aspirin, 81 mg, Oral, Daily Atacand 4 mg Tab, 4 mg= 1 tab(s), Oral, Daily celecoxib 200 mg Cap, 200 mg= 1 cap(s), Oral, BID digoxin 125 mcg (0.125 mg) Tab, 125 mcg= 1 tab(s), Oral, Daily ICaps AREDS 2, See Instructions levothyroxine 50 mcg (0.05 mg) Tab, 50 mcg= 1 tab(s), Oral, Daily meclizine 25 mg Tab, 25 mg= 1 tab(s), Oral, q8hr Medrol 4 mg Tab, 1 packet(s), Oral, As Directed metoprolol 25 mg ER Tab, 25 mg= 1 tab(s), Oral, Bedtime montelukast 10 mg Tab, 10 mg= 1 tab(s), Oral, Daily, 3 refills ProAir HFA, Inhalation, q6 (more content not included)... Normal [facility] Comment on above: Result Comment: Elec tronically Signed By: Marlee Martinez\.br\Date and Time Signed: 09/16/22 15:30 EDT Consultation Noteon 09-13-19 Consultation Note [id number] 0CD:127 Normal [facility] CHEMISTRYOrdered By: SYSTEM SYSTEM on 09-09-2022 Albumin [Mass/Vol] 4.4 g/dL Normal 3.3 - 5.0 gm/dL [facility] Albumin/Globulin [Mass ratio] 1.6 {ratio} Normal 1.1 - 2.2 [facility] ALP [Catalytic activity/Vol] 77 [iU]/d Normal 21 - 98 Int._Unit/L [facility] ALT No additional P-5'-P [Catalytic activity/Vol] 20 [iU]/d Normal 6 - 46 Int._Unit/L [facility] Anion gap [Moles/Vol] 12 mmol/L Normal 6 - 16 mEq/L [facility] AST [Catalytic activity/Vol] 25 [iU]/d Normal 5 - 43 Int._Unit/L [facility] Bilirubin [Mass/Vol] 1.1 mg/dL Normal 0.0 - 1.1 mg/dL [facility] Calcium [Mass/Vol] 9.4 mg/dL Normal 8.9 - 11.1 mg/dL [facility] Chloride [Moles/Vol] 104 mmol/L Normal 101 - 111 mmol/L [facility] Cholesterol [Mass/Vol] 107 mg/dL Low 120 - 200 mg/dL [facility] Cholesterol in HDL [Mass/Vol] 30 mg/dL Invalid Interpretation Code [facility] Cholesterol in LDL [Mass/Vol] 60 mg/dL Normal <=129mg/dL [facility] Cholesterol in VLDL [Mass/Vol] 30 mg/dL Normal 7 - 40 mg/dL [facility] CO2 [Moles/Vol] 26 mmol/L Normal 21 - 31 mmol/L [facility] Creatinine [Mass/Vol] 0.8 mg/dL Normal 0.5 - 1.3 mg/dL [facility] GFR/1.73 sq M.predicted among non-blacks MDRD (S/P/Bld) [Vol rate/Area] 73 mL/min/1.73 m2 Normal >=59mL/min/1.73 m2 FT [facility] S Globulin (S) [Mass/Vol] 2.8 g/dL Normal 1.4 - 4.0 gm/dL [facility] Glucose [Mass/Vol] 96 mg/dL Normal 55 - 199 mg/dL [facility] Potassium [Moles/Vol] 4.1 mmol/L Normal 3.5 - 5.3 mmol/L [facility] Protein [Mass/Vol] 7.2 g/dL Normal 6.0 - 7.8 gm/dL [facility] Sodium [Moles/Vol] 138 mmol/L Normal 135 - 145 mmol/L [facility] Triglyceride [Mass/Vol] 151 mg/dL High <=149mg/dL [facility] TSH Qn 1.42 m[IU]/L Normal 0.34 - 5.60 mcIU/mL [facility] Urea nitrogen [Mass/Vol] 13 mg/dL Normal 5 - 21 mg/dL [facility] Urea nitrogen/Creatinine [Mass ratio] 16 mg/mg Normal 10 - 20 [facility] Remisol CMPon 09-09-2022 Albumin [Mass/Vol] 4.4 g/dL Normal 3.3-5.0 [facility] Comment on above: Performed By: #### 2 [id number], [id number], 3456147, [id number] ####[facility] [address] [place] [address] Albumin/Globulin (S) [Mass conc ratio] 1.6 Normal 1.1-2.2 [facility] Comment on above: Performed By: #### 2 443283, [id number], 4569941, [id number] ####[facility] [address] [place] [address] ALP [Catalytic activity/Vol] 77 Int._Unit/L Normal 21-98 [facility] Comment on above: Performed By: #### 2 545843, 11026682, 1397187, 76385219 ####[facility] [address] [place] [address] ALT No additional P-5'-P [Catalytic activity/Vol] 20 Int._Unit/L Normal 6-46 [facility] Comment on above: Performed By: #### 2 641030, 89973241, 8397406, 75162760 ####[facility] [address] [place] [address] Anion gap [Moles/Vol] 12 mmol/L Normal 6-16 [facility] Comment on above: Performed By: #### 2 531466, 95381284, 6894622, 46203741 ####[facility] [address] [place] [address] AST [Catalytic activity/Vol] 25 Int._Unit/L Normal 5-43 [facility] Comment on above: Performed By: #### 2 370884, 58582856, 8863919, [id number] ####[facility] [address] [place] [address] Bilirubin [Mass/Vol] 1.1 mg/dL Normal 0.0-1.1 [facility] Comment on above: Performed By: #### 2 984642, 55063083, 7891917, 07803617 ####[facility] [address] [place] [address] Calcium [Mass/Vol] 9.4 mg/dL Normal 8.9-11.1 [facility] Comment on above: Performed By: #### 2 637712, 76409883, 5062799, 12898176 ####[facility] [address] [place] [address] Chloride [Moles/Vol] 104 mmol/L Normal 101-111 [facility] Comment on above: Performed By: #### 2 050341, 54043079, 8452078, 72357536 ####[facility] [address] [place] [address] CO2 [Moles/Vol] 26 mmol/L Normal 21-31 [facility] Comment on above: Performed By: #### 2 018987, 19161863, 0054808, 77370920 ####[facility] [address] [place] [address] Creatinine [Mass/Vol] 0.8 mg/dL Normal 0.5-1.3 [facility] Comment on above: Performed By: #### 2 715794, 93753704, 7990485, 01232729 ####[facility] [address] [place] [address] Globulin (S) [Mass/Vol] 2.8 g/dL Normal 1.4-4.0 [facility] Comment on above: Performed By: #### 2 135529, 79080425, 8177620, 06462970 ####[facility] [address] [place] [address] Glucose [Mass/Vol] 96 mg/dL Normal 55-199 [facility] Comment on above: Result Comment: If t his glucose result represents a fasting glucose, interpretation should refer to the following reference range: 55-99 mg/dL Performed By: #### 2 402476, 29447541, 6035309, 71146968 ####[facility] [address] [place] [address] Potassium [Moles/Vol] 4.1 mmol/L Normal 3.5-5.3 [facility] Comment on above: Performed By: #### 2 459971, 13868185, 5637104, 41873564 ####[facility] [address] [place] [address] Protein [Mass/Vol] 7.2 g/dL Normal 6.0-7.8 [facility] Comment on above: Performed By: #### 2 709866, 52985379, 4547057, 01411540 ####[facility] [address] [place] [address] Sodium [Moles/Vol] 138 mmol/L Normal 135-145 [facility] Comment on above: Performed By: #### 2 405700, 61813855, 5677688, 61594070 ####[facility] [address] [place] [address] Urea nitrogen [Mass/Vol] 13 mg/dL Normal 5-21 [facility] Comment on above: Performed By: #### 2 528486, 11378617, 0576572, 63975466 ####[facility] [address] [place] [address] Urea nitrogen/Creatinine [Mass ratio] 16 No Units Normal 10-20 [facility] Comment on above: Performed By: #### 2 776695, 69882323, 3271113, 73351009 ####[facility] [address] [place] [address] Lipid Panelon 09-09-2022 Cholesterol [Mass/Vol] 107 mg/dL Low 120-200 [facility] Comment on above: Performed By: #### 2 187181, 14376845, 8379028, 96503479 ####[facility] [address] [place] [address] Cholesterol in HDL [Mass/Vol] 30 mg/dL Invalid Interpretation Code [facility] Comment on above: Result Comment: HDL > or equal to 60 mg/dL: Low cardiovascular risk HDL < 40 mg/dL : High cardiovascular risk Performed By: #### 2 602082, 76794085, 5639583, 73618594 ####[facility] [address] [facility] [place] [address] Cholesterol in LDL [Mass/Vol] 60 mg/dL Normal <=129 [facility] Comment on above: Performed By: #### 2 335310, 94946097, 9779406, 97352344 ####[facility] [address] [facility] [place] [address] Cholesterol in VLDL [Mass/Vol] 30 mg/dL Normal 7-40 [facility] Comment on above: Performed By: #### 2 827790, 17952102, 4702925, 22666837 ####[facility] [address] [place] [address] Triglyceride [Mass/Vol] 151 mg/dL High <=149 [facility] Comment on above: Performed By: #### 2 920272, 98909973, 5349665, 90504076 ####[facility] [address] [place] [address] Nurse Consultation Noteon Nurse Consultation Note Physical Exam pt here for lab draw, pt tolerated well Assessment/Plan Well adult exam (Z00.00: Encounter for general adult medical examination without abnormal findings) Medications aspirin, 81 mg, Oral, Daily Atacand 4 mg Tab, 4 mg= 1 tab(s), Oral, Daily celecoxib 200 mg Cap, 200 mg= 1 cap(s), Oral, BID digoxin 125 mcg (0.125 mg) Tab, 125 mcg= 1 tab(s), Oral, Daily ICaps AREDS 2, See Instructions levothyroxine 50 mcg (0.05 mg) Tab, 50 mcg= 1 tab(s), Oral, Daily meclizine 25 mg Tab, 25 mg= 1 tab(s), Oral, q8hr metoprolol 25 mg ER Tab, 25 mg= 1 tab(s), Oral, Bedtime montelukast 10 mg Tab, 10 mg= 1 tab(s), Oral, Daily, 3 refills ProAir HFA, Inhalation, q6hr, PRN spironolactone 25 mg Tab, 25 mg= 1 tab(s), Oral, Daily Symbicort, 80/4.5, Inhalation, BID Tums, Chewed, Daily Tylenol Extra Strength, 500 mg, Oral, BID, PRN Allergies Augmentin (Unknown) Diflucan (Unknown) sulfa drugs (Unknown) traMADol (Unknown) Immunizations Vaccine Date Status Comments SARS-CoV-2 (COVID-19) [id number].[id number] 02/10/2022 Recorded influenza virus vaccine, inactivated 12/27/2021 Recorded SARS-CoV-2 (COVID-19) mRNA-1273 vaccine 03/17/2021 Recorded 2022-07-04: [id number] influenza virus vaccine, inactivated 02/10/2021 Recorded pneumococcal 23-valent vaccine 09/11/2020 Recorded SARS-CoV-2 (COVID-19) mRNA-1273 vaccine 05/05/2020 Recorded SARS-CoV-2 (COVID-19) mRNA-1273 vaccine 04/07/2020 Recorded pneumococcal 13-valent vaccine 09/12/2019 Recorded influenza virus vaccine, inactivated 02/01/2019 Recorded influenza virus vaccine, inactivated 01/30/2018 Recorded influenza virus vaccine, inactivated 03/04/2016 Recorded influenza virus vaccine, inactivated 03/18/2015 Recorded influenza, whole 01/17/2005 Recorded Normal [facility] TSH With T4fr Reflexon 09-09 TSH Qn 1.42 m[IU]/L Normal 0.34-5.60 [facility] Comment on above: Performed By: #### 2 120536, 07080990, 0959184, 17865500 ####[facility] [address] [place] [address] eGFRon 09-09-2022 GFR/1.73 sq M.predicted among non-blacks MDRD (S/P/Bld) [Vol rate/Area] 73 mL/min/1.73 m2 Normal >=59 [facility] Comment on above: Order Comment: Order added by Discern Expert. Result Comment: [employer]en[employer] Architect ivana kidney disease could be indicated at eGFR's of less than 60 mL/min/1.73m2. Kidney failure is indicated at less than 15 mL/min/1.73m2. Performed By: #### 2 441094, 94811991, 3167214, [id number] ####[facility] [address] [place] [address] Ambulatory Visit Summaryon 0 09-08-2022 Ambulatory Visit Summary UNA GOMEZ :1940 Visit Date:09/08/2022 Ambulatory Visit Instructions Your Diagnosis Annual visit for general adult medical examination with abnormal findings Ovarian failure Osteoporosis Other asthma Foot drop, unspecified foot Hypercholesterolemia Hypertension Over weight Hypothyroid Tests Performed BD Bone Density DEXA -- Results Pending -- Please visit your patient portal for your results or contact your primary care physician. Your Care Team Attending Physician - Yaniv De La Garza MD Primary Care Physician - Yaniv De La Garza MD This Is Your Medications List acetaminophen (Tylenol Extra Strength) albuterol (ProAir HFA) aspirin budesonide-formoterol (Symbicort) calcium carbonate (Tums) candesartan (Atacand 4 mg Tab) celecoxib (celecoxib 200 mg Cap) digoxin (digoxin 125 mcg (0.125 mg) Tab) levothyroxine (levothyroxine 50 mcg (0.05 mg) Tab) meclizine (meclizine 25 mg Tab) metoprolol (metoprolol 25 mg ER Tab) montelukast (montelukast 10 mg Tab) multivitamin with minerals (ICaps AREDS 2) spironolactone (spironolactone 25 mg Tab) Procedures Performed Cataracts, Cholecystectomy, Shoulder replacement. Discharge Vitals Heart Rate (Peripheral) 79 Blood Pressure 116/64 Height 148 cm Height 58 in Weight 63.6 kg Weight 139.92 lb BMI 29.04 What to do next Scheduled Follow-Up Appointments Monday 10:00 AM EDT With: Where: [facility] Invalid Interpretation Code [address] [place] [address]- \.br\ 2023 11:00 AM EDT \.br\ With:\.br\ Where: [facility] Family Medicine Office/Clini c Noteon 09-08-2022 Family Medicine Office/Clinic Note Chief Complaint Subsequent Medicare Wellness Visit Review of Systems PHQ Score Initial Depression Screen Score: 0 Physical Exam Vitals & Measurements HR: 79(Peripheral) BP: 116/64 SpO2: 94% HT: 148 cm HT: 58 in WT: 63.6 kg WT: 139.92 lb BMI: 29.04 Assessment/Plan 1. Annual visit for general adult medical examination with abnormal findings (Z00.01: Encounter for general adult medical examination with abnormal findings) The patient was given a customized and personalized print out of all the current AHRQ USPSTF?s recommendations for preventative services and all current CDC recommended immunizations, relevant risk recommendations and the following patient brochures were given. Reviewed Medicare preventative services checklist. CDC-Falls Prevention and home safety screening reviewed. Patient reports 1 fall in last 12 months, voices no worry about falling, exhibits no problems with sitting, standing, or ambulation. Pt voices understanding with keeping walk way area free of clutter to prevent tripping and/or falling. [place] Advance Directives reviewed, patient has LW/POA at home, encouraged to bring documents to office for scanning to chart. Patient denies any problems with ADL?s and Instrumental ADL?s. Cognitive screening completed with memory and clock face drawing, no deficits noted. Immunization Record reviewed with the patient. Discussed Shingrix vaccine with educational handout and availability. COVID vaccines have been administered, with 2 boosters, immunization record is up to date. Allergies and medications reviewed and up to date. Patient denies concerns with taking medication as prescribed, reviewed OTC medications with patient, medication list up to date. Blood tests were reviewed: Discussed what tests need to be updated. Labs were ordered, will have completed prior to next PCP visit. Nurse visit scheduled: 09/09/2022 Will have labs completed with [facility]. Patient denies coloscopy, states Cologuard in past was negative, records requested. Mammograms stopped at age 78, pt encouraged to continue with self breast exams. Reviewed pain symptoms with patient: reports left leg and right side pain, 3-4/10. Patient continues taking Celebrex and Tylenol as needed for pain, states effective. Patient continue exercises at home, learned from different therapies. Reviewed all outside providers that patient follows. Last visit summary notes available in chart and/or have been requested. Follow up scheduled, 09/19/2022 AWV has been scheduled, 09/14/2023 Medicare provides yearly screening for alcohol and depression concerns. This is completed during our Medicare Wellness visit for those who do not have a current diagnosis of depression or concerns with alcohol use. I spent a total of 17 minutes on this date of service which included preparing to see the patient, face to face patient care, completing clinical documentation, obtaining and/or reviewing separately obtained history, counseling and educating the patient with handouts. Explanations were provided with reviewing questionnaires. AUDIT risk assessment screening completed, risk score 0, with patient denying concerns with use. Completed PHQ-2 risk assessment for depression with risk score 0, negative findings. Patient has been reminded to notify the provider if there would be a change or concerns with symptoms with fear, unable to sleep, worrying too much or feeling down and/or sad with lost of interest with daily activities. Will continue to monitor with screening yearly during Medicare wellness visits. 2. Ovarian failure (E28.39: Other primary ovarian failure) Reviewed recommended bone mineral density testing for women who are 65 years of age or older. Medicare recommends testing every 5 years if results are WNL and every 2 years if results shows low bone mass. This is a deterioration of bone structure and can increase the risk of a fracture with falls. Eating a well-balanced diet with plenty of Calcium and Vitamin D will help to protect your bones. Daily weight-bearing physical activity can help build strong bones, improve bone amounts, and may reduce the risk of weakening of bones (Osteoporosis) later in life. Dexa scan ordered today, order faxed to [facility]. 3. Osteoporosis (M81.0: Age-related osteoporosis without current pathological fracture) Patient not currently taking any medication at this time. Patient denies any issues or concerns. Also see above #2. 4. Other asthma (J45.998: Other asthma) Patient using inhalers daily as directed with effectiveness. Encouraged to remain active. Patient no longer follows miller head wet process, states asthma has been under good control for years. Will continue to monitor for changes and/or concerns with office visits. Pulse ox today was 94%. 5. Foot drop, unspecified foot (M21.379: Foot drop, unspecified foot) Patient denies issues or concerns at this time. Patient continues to wear foot brace. Patient will continue to follow up with PCP as needed (more content not included)... Normal [facility] Comment on above: Result Comment: Elec tronically Signed By: Marlee Martinez\.br\Date and Time Signed: 09/08/22 12:54 EDT\.br\Electronically Co-Signed By: Sean Ford\.br\Date and Time Co-Signed: 09/08/22 12:12 EDT Patient Educationon 09-09-19 Patient Education Endocrinology Hypothyroidism Hypothyroidism is when the thyroid gland does not make enough of certain hormones. This is called an underactive thyroid. The thyroid gland is a small gland located in the lower front part of the neck, just in front of the windpipe (trachea). This gland makes hormones that help control how the body uses food for energy (metabolism) as well as how the heart and brain function. These hormones also play a role in keeping your bones strong. When the thyroid is underactive, it produces too little of the hormones thyroxine (T4) and triiodothyronine (T3). What are the causes? This condition may be caused by: ? Enzo's disease. This is a disease in which the body's disease-fighting system (immune system) attacks the thyroid gland. This is the most common cause. ? Viral infections. ? . ? Certain medicines. ? defects. ? Problems with a gland in the center of the brain (pituitary gland). ? Lack of enough iodine in the diet. Other causes may include: ? Past radiation treatments to the head or neck for cancer. ? Past treatment with radioactive iodine. ? Past exposure to radiation in the environment. ? Past surgical removal of part or all of the thyroid. What increases the risk? You are more likely to develop this condition if: ? You are female. ? You have a family history of thyroid conditions. ? You use a medicine called lithium. ? You take medicines that affect the immune system (immunosuppressants). What are the signs or symptoms? Common symptoms of this condition include: ? Not being able to tolerate cold. ? Feeling as though you have no energy (lethargy). ? Lack of appetite. ? Constipation. ? Sadness or depression. ? Weight gain that is not explained by a change in diet or exercise habits. ? Menstrual irregularity. ? Dry skin, coarse hair, or brittle nails. Other symptoms may include: ? Muscle pain. ? Slowing of thought processes. ? Poor memory. How is this diagnosed? This condition may be diagnosed based on: ? Your symptoms, your medical history, and a physical exam. ? Blood tests. You may also have imaging tests, such as an ultrasound or MRI. How is this treated? This condition is treated with medicine that replaces the thyroid hormones that your body does not make. After you begin treatment, it may take several weeks for symptoms to go away. Follow these instructions at home: ? Take sjpo-yfi-ddckxen and prescription medicines only as told by your health care provider. ? If you start taking any new medicines, tell your health care provider. ? Keep all follow-up visits as told by your health care provider. This is important. ? As your condition improves, your dosage of thyroid hormone medicine may change. ? You will need to have blood tests regularly so that your health care provider can monitor your condition. Contact a health care provider if: ? Your symptoms do not get better with treatment. ? You are taking thyroid hormone replacement medicine and you: ? Sweat a lot. ? Have tremors. ? Feel anxious. ? Lose weight rapidly. ? Cannot tolerate heat. ? Have emotional swings. ? Have diarrhea. ? Feel weak. Get help right away if: ? You have chest pain. ? You have an irregular heartbeat. ? You have a rapid heartbeat. ? You have difficulty breathing. These symptoms may be an emergency. Get help right away. Call 911. ? Do not wait to see if the symptoms will go away. ? Do not drive yourself to the hospital. Summary ? Hypothyroidism is when the thyroid gland does not make enough of certain hormones (it is underactive). ? When the thyroid is underactive, it produces too little of the hormones thyroxine (T4) and triiodothyronine (T3). ? The most common cause is Enzo's disease, a disease in which the body's disease-fighting system (immune system) attacks the thyroid gland. The condition can also be caused by viral infections, medicine, , or past radiation treatment to the head or neck. ? Symptoms may include weight gain, dry skin, constipation, feeling as though you do not have energy, and not being able to tolerate cold. ? This condition is treated with medicine to replace the thyroid hormones that your body does not make. This information is not intended to replace advice given to you by your health care provider. Make sure you discuss any questions you have with your health care provider. Document Revised: 02/22/2022 Document Reviewed: 02/22/2022 [employer] Patient Education ? 2022 [employer]. Nutrition High Cholesterol High cholesterol is a condition in which the blood has high levels of a white, waxy substance similar to fat (cholesterol). The liver makes all the cholesterol that the body needs. The human body needs small amounts of cholesterol to help build cells. A person gets extra or excess cholesterol from the food that he o (more content not included)... Normal [facility] Screenson 09-08-2022 Screens [id number] 0CD:[address] [facility] Physician Referralon 023 Physician Referral [id number] 0CD:[address] [facility] Pathology Noteon 08-09-2022 Pathology Note [id number] 0CD:[address] [facility] Pathology Reporton Pathology Report [id number]. 00CD:[address] [facility] Nurse Consultation Noteon Nurse Consultation Note Reason for Visit Patient presents for suture removal, lesions excised from anterior front left clavicle area. Incision intact, no signs of infection, healing well, 3 sutures removed Medications Atacand 4 mg Tab, 4 mg= 1 tab(s), Oral, Daily celecoxib 200 mg Cap, 200 mg= 1 cap(s), Oral, BID digoxin 125 mcg (0.125 mg) Tab, 125 mcg= 1 tab(s), Oral, Daily famotidine 40 mg Tab, 40 mg= 1 tab(s), Oral, Daily ICaps AREDS 2, See Instructions levothyroxine 50 mcg (0.05 mg) Tab, 50 mcg= 1 tab(s), Oral, Daily metoprolol 25 mg ER Tab, 25 mg= 1 tab(s), Oral, Bedtime montelukast 10 mg Tab, 10 mg= 1 tab(s), Oral, Daily Proventil HFA 90 mcg/inh Aerosol, 2 puff(s), Inhalation, q4hr spironolactone 25 mg Tab, 25 mg= 1 tab(s), Oral, Daily Allergies Augmentin (Unknown) Diflucan (Unknown) sulfa drugs (Unknown) traMADol (Unknown) Immunizations Vaccine Date Status Comments SARS-CoV-2 (COVID-19) mRNAMUL.ORD![id number] 02/10/2022 Recorded influenza virus vaccine, inactivated 12/27/2021 Recorded SARS-CoV-2 (COVID-19) mRNA-1273 vaccine 03/17/2021 Recorded 2022-07-04: [id number] influenza virus vaccine, inactivated 02/10/2021 Recorded pneumococcal 23-valent vaccine 09/11/2020 Recorded SARS-CoV-2 (COVID-19) mRNA-1273 vaccine 05/05/2020 Recorded SARS-CoV-2 (COVID-19) mRNA-1273 vaccine 04/07/2020 Recorded pneumococcal 13-valent vaccine 09/12/2019 Recorded influenza virus vaccine, inactivated 02/01/2019 Recorded influenza virus vaccine, inactivated 01/30/2018 Recorded influenza virus vaccine, inactivated 03/04/2016 Recorded influenza virus vaccine, inactivated 03/18/2015 Recorded influenza, whole 01/17/2005 Recorded Normal [facility] Physician Referralon 023 Physician Referral [id number] 0CD:127 Normal [facility] Ambulatory Visit Summaryon 0 07-26-2022 Ambulatory Visit Summary UNA GOMEZ :1940 Visit Date:07/26/2022 Ambulatory Visit Instructions Your Diagnosis BMI 29.0-29.9,adult Over weight Neoplasm of uncertain behavior of skin Tests Performed Pathology Tissue Exam -- Results Pending -- Please visit your patient portal for your results or contact your primary care physician. Your Care Team Attending Physician - SHRUTHI MONTERROSO MD Primary Care Physician - SHRUTHI MONTERROSO MD This Is Your Medications List albuterol (Proventil HFA 90 mcg/inh Aerosol) candesartan (Atacand 4 mg Tab) celecoxib (celecoxib 200 mg Cap) digoxin (digoxin 125 mcg (0.125 mg) Tab) famotidine (famotidine 40 mg Tab) levothyroxine (levothyroxine 50 mcg (0.05 mg) Tab) metoprolol (metoprolol 25 mg ER Tab) montelukast (montelukast 10 mg Tab) multivitamin with minerals (ICaps AREDS 2) spironolactone (spironolactone 25 mg Tab) Procedures Performed Cataracts, Cholecystectomy, Shoulder replacement. Discharge Vitals Heart Rate (Peripheral) 71 Respiratory Rate 16 Blood Pressure 138/72 Height 147.8 cm Height 58 in Weight 63.6 kg Weight 139.92 lb BMI 29.11 What to do next Scheduled Follow-Up Appointments Monday 10:20 AM EDT With: Where: [place] [id number]- \.br\ Medications\.br\ What How Much When Instructions\.br \ Unchanged albuterol (Proventil HFA 90 mcg/ inh Aerosol) 2 Puffs Inhalation Every 4 hours as needed \.br\ Unchanged candesartan (Atacand 4 mg Tab) 1 Tablets By Mouth Every day\.br\ Unchanged celecoxib (celecoxib 200 mg Cap) 1 Capsules By Mouth 2 times a day as needed for pain \.br\ Unchanged digoxin (digoxin 125 mcg (0.125 mg) Tab) 1 Tablets By Mouth Every day\.br\ Unchanged famotidine (famotidine 40 mg Tab) 1 Tablets By Mouth Every day\.br\ Unchanged levothyroxine (levothyroxine 50 mcg (0.05 mg) Tab) 1 Tablets By Mouth Every day\.br\ Unchanged metoprolol (metoprolol 25 mg ER Tab) 1 Tablets By Mouth At bedtime\.br\ Unchanged montelukast (montelukast 10 mg Tab) 1 Tablets By Mouth Every day\.br\ Unchanged multivitamin with minerals (ICaps AREDS 2) See instructions take 2 orally daily \.br\ Unchanged spironolactone (spironolactone 25 mg Tab) 1 Tablets By Mouth Every day\.br\ Allergies\.br\ Augmentin (Unknown)\.br\ Diflucan (Unknown)\.br\ sulfa drugs (Unknown)\.br\ traMADol (Unknown)\.br\ Problems\.br\ Ongoing - Any problem that you are currently receiving treatment for.\.br\ Allergic rhinitis\.br\ Asthma\.br\ Cervical spondylosis\.br\ Diverticular disease\.br\ Foot drop\.br\ Hypercholesterol emia\.br\ Hypertension\.br \ Hypothyroid\.br\ Labyrinthitis\.b r\ Lumbar spondylosis\.br\ Murmur\.br\ Osteoarthritis of hip\.br\ Osteoporosis\.br \ Over weight\.br\ Restless legs syndrome\.br\ Steatosis of liver\.br\ Thoracic spondylosis\.br\ \.br\ [facility] Medicine Office/Clini c Noteon 07-26-2022 Family Medicine Office/Clinic Note Chief Complaint excision lesion on neck HPI Staff Here for excision of a lesion on left side of her neck Review of Systems PHQ Score Initial Depression Screen Score: 0 Physical Exam Vitals & Measurements HR: 71(Peripheral) RR: 16 BP: 138/72 SpO2: 93% HT: 58 in HT: 147.8 cm WT: 63.6 kg WT: 139.92 lb BMI: 29.11 LESION ON LEFT SCAPULA 0.8 CM BY 0.4 CM. MAJOR RISKS AND BENEFITS EXPLAINED. STERILE SCRUB, LOCAL 1% XYLOCAINE ELLIPTICAL EXCISION WITH WIDE MARGINS. LESION REMOVED AND SENT TO PATHOLOGY. CLOSE WITH 3-0 NYLON X3 KEEP COVERED FOR 24 HOURS. AFTER THAT DOES NOT HAVE TO COVER AND MAY SHOWER WITH SOAP AND WATER BUT NO IMMERSION IN WATER, IE SWIMMING ETC. HYDROGEN PEROXIDE TID EXPLAINED. REMOVE STITCHES IN 10-14 DAYS. RTO FOR EVIDENCE OF INFECTION, EXPLAINED. Assessment/Plan SENT FOR PATHOLOGY READING. 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 Benign neoplasm of skin (D23.9: Other benign neoplasm of skin, unspecified) 3. BMI 29.0-29.9,adult (Z68.29: Body mass index [BMI] 29.0-29.9, adult) Ordered: Body Mass Index (BMI) documented 3008F Current tobacco non-user 1036F Depression Screening Negative 3352F Influenza immunization administered or previously received 4274F Most recent diastolic blood pressure <80 mm Hg 3078F Pathology Tissue Exam Patient screen for fall risk: no falls in last year or 1 fall with no injury in last year 1101F Systolic BP 130-139 mm Hg (Most Recent) 3075F 4. Over weight (E66.3: Overweight) Ordered: Body Mass Index (BMI) documented 3008F Current tobacco non-user 1036F Depression Screening Negative 3352F Influenza immunization administered or previously received 4274F Most recent diastolic blood pressure <80 mm Hg 3078F Patient screen for fall risk: no falls in last year or 1 fall with no injury in last year 1101F Systolic BP 130-139 mm Hg (Most Recent) 3075F Neoplasm of uncertain behavior of skin (D48.5: Neoplasm of uncertain behavior of skin) Ordered: Pathology Tissue Exam Follow-up No qualifying data available Problem List/Past Medical History Ongoing Allergic rhinitis Asthma Cervical spondylosis Diverticular disease Foot drop Hypercholesterolemia Hypertension Hypothyroid Labyrinthitis Lumbar spondylosis Murmur Osteoarthritis of hip Osteoporosis Over weight Restless legs syndrome Steatosis of liver Thoracic spondylosis Historical No qualifying data Procedure/Surgical History Cataracts, Cholecystectomy, Shoulder replacement. Medications Atacand 4 mg Tab, 4 mg= 1 tab(s), Oral, Daily celecoxib 200 mg Cap, 200 mg= 1 cap(s), Oral, BID digoxin 125 mcg (0.125 mg) Tab, 125 mcg= 1 tab(s), Oral, Daily famotidine 40 mg Tab, 40 mg= 1 tab(s), Oral, Daily ICaps AREDS 2, See Instructions levothyroxine 50 mcg (0.05 mg) Tab, 50 mcg= 1 tab(s), Oral, Daily metoprolol 25 mg ER Tab, 25 mg= 1 tab(s), Oral, Bedtime montelukast 10 mg Tab, 10 mg= 1 tab(s), Oral, Daily Proventil HFA 90 mcg/inh Aerosol, 2 puff(s), Inhalation, q4hr spironolactone 25 mg Tab, 25 mg= 1 tab(s), Oral, Daily Allergies Augmentin (Unknown) Diflucan (Unknown) sulfa drugs (Unknown) traMADol (Unknown) Social History Tobacco Never (less than 100 in lifetime) Tobacco Use:. Never Smokeless Tobacco Use:., 07/26/2022 Family History Acute myocardial infarction: Grandparent and Grandparent. Immunizations Vaccine Date Status Comments SARS-CoV-2 (COVID-19) mRNAMUL.[id number] 02/10/2022 Recorded influenza virus vaccine, inactivated 12/27/2021 Recorded SARS-CoV-2 (COVID-19) mRNA-1273 vaccine 03/17/2021 Recorded 2022-07-04: [id number] influenza virus vaccine, inactivated 02/10/2021 Recorded pneumococcal 23-valent vaccine 09/11/2020 Recorded SARS-CoV-2 (COVID-19) mRNA-1273 vaccine 05/05/2020 Recorded SARS-CoV-2 (COVID-19) mRNA-1273 vaccine 04/07/2020 Recorded pneumococcal 13-valent vaccine 09/12/2019 Recorded influenza virus vaccine, inactivated 02/01/2019 Recorded influenza virus vaccine, inactivated 01/30/2018 Recorded influenza virus vaccine, inactivated 03/04/2016 Recorded influenza virus vaccine, inactivated 03/18/2015 Recorded influenza, whole 01/17/2005 Recorded Normal [facility] Comment on above: Result Comment: Elec tronically Signed By: LOC BELTRAN, SHRUTHI Yanes\.br\Date and Time Signed: 07/26/22 16:21 EDT Physician Referralon 023 Physician Referral [id number]. 00CD:127 Normal [facility] Family Medicine Office/Clini c Noteon 07-05-2022 Family Medicine Office/Clinic Note Chief Complaint sore area on neck that won't heal HPI Staff sore on lower left neck area that won't go away Health Maintenance: Colonoscopy: aged out Dexa: lpng time Mammo: none since age 78 Pap: aged out Last Labs: fall 2021 covid: UTD questions/concerns: has a list with her History of Present Illness SPOT ON LEFT NECK FOR ABOUT ONE YEAR, SEEMS TO GET BIGGER AND THEN SMALLER. LEFT KNEE IS FIBING HER MORE PROB LEMS, USING VOLTAREN AND HELPS BUT DOES NOT LAST LONG IT USED TO. WONDERS ABOUT SHOTS. WANTS TO LOOK INTO A MEDICAL ALERT HTN HYPERCHOLESTEROLEMIA HYPOTHYROID Review of Systems PHQ Score Initial Depression Screen Score: 2 Constitutional: no fever, no chills, no sweats, no weakness Respiratory: no shortness of breath, no cough, no orthopnea, no wheezing Cardiovascular: no chest pain, no palpitations, no edema left knee pain Additional ROS info: Except as noted in the above Review of Systems and in the History of Present Illness all other systems have been reviewed and are negative or noncontributory. Physical Exam Vitals & Measurements HR: 81(Peripheral) RR: 16 BP: 118/74 SpO2: 89% HT: 58 in HT: 147.8 cm WT: 64.2 kg WT: 141.24 lb BMI: 29.39 General: alert, no acute distress tired and anxious Skin: warm, dryLESIONS LEFT CLAVIVLE NEEDS REMOVED Head: no trauma, normocephalic Neck: Trachea midline, no adenopathy, no tenderness Eye: normal conjunctiva, sclera clear ENMT: TM's clear, oral mucosa moist, no pharyngeal erythema or exudate Cardiovascular: regular rate and rhythm, normal peripheral perfusion Respiratory: Lungs CTA, respirations non labored Chest wall: no deformity. Gastrointestinal: soft, non distended, no tenderness, no guarding. Back: No tenderness, Normal ROM, Normal alignment. Extremities: diffuse arthritis Neurological: oriented FOOT DROP Psychiatric: cooperative, affect appropriate for age, normal judgement, normal psychiatric thoughts. Assessment/Plan MEDS REVIEWED. WILL REFER TO PAIN MGM FOR THE KNEE WILL NEED BIOPSY LEFT CLAVICLE DISCUSSED LORATIADINE FOR ALLERGIES. DISCUSSED MEDICAL ALERT AND GAVE PATIENT LIST OF POSSIBLE VENDORS. RTO PRN EXPLAINED. 1. Hypertension (I10: Essential (primary) hypertension) 2. Hypercholesterolemia (E78.00: Pure hypercholesterolemia, unspecified) 3. Hypothyroid (E03.9: Hypothyroidism, unspecified) 4. Osteoarthritis of left knee (M17.12: Unilateral primary osteoarthritis, left knee) Orders: Body Mass Index (BMI) documented 3008F Current tobacco non-user 1036F Depression Screening Negative 3352F Influenza immunization administered or previously received 4274F Most recent diastolic blood pressure <80 mm Hg 3078F Patient screen for fall risk: no falls in last year or 1 fall with no injury in last year 1101F Systolic BP <130 mm Hg (Most Recent) 3074F Follow-up No qualifying data available Problem List/Past Medical History Ongoing Allergic rhinitis Asthma BMI 29.0-29.9,adult Cervical spondylosis Diverticular disease Foot drop Hypercholesterolemia Hypertension Hypothyroid Labyrinthitis Lumbar spondylosis Murmur Osteoarthritis of hip Osteoporosis Over weight Restless legs syndrome Steatosis of liver Thoracic spondylosis Historical No qualifying data Procedure/Surgical History Cataracts, Cholecystectomy, Shoulder replacement. Medications Atacand 4 mg Tab, 4 mg= 1 tab(s), Oral, Daily celecoxib 200 mg Cap, 200 mg= 1 cap(s), Oral, BID digoxin 125 mcg (0.125 mg) Tab, 125 mcg= 1 tab(s), Oral, Daily famotidine 40 mg Tab, 40 mg= 1 tab(s), Oral, Daily, Not taking ICaps AREDS 2, See Instructions levothyroxine 50 mcg (0.05 mg) Tab, 50 mcg= 1 tab(s), Oral, Daily metoprolol 25 mg ER Tab, 25 mg= 1 tab(s), Oral, Bedtime montelukast 10 mg Tab, 10 mg= 1 tab(s), Oral, Daily Proventil HFA 90 mcg/inh Aerosol, 2 puff(s), Inhalation, q4hr spironolactone 25 mg Tab, 25 mg= 1 tab(s), Oral, Daily Allergies Augmentin (Unknown) Diflucan (Unknown) sulfa drugs (Unknown) traMADol (Unknown) Social History Tobacco Never (less than 100 in lifetime) Tobacco Use:. Never Smokeless Tobacco Use:., 07/05/2022 Family History Acute myocardial infarction: Grandparent and Grandparent. Immunizations Vaccine Date Status Comments SARS-CoV-2 (COVID-19) mRNAMUL.[id number] 02/10/2022 Recorded influenza virus vaccine, inactivated 12/27/2021 Recorded SARS-CoV-2 (COVID-19) mRNA-1273 vaccine 03/17/2021 Recorded 2022-07-04: [id number] influenza virus vaccine, inactivated 02/10/2021 Recorded pneumococcal 23-valent vaccine 09/11/2020 Recorded SARS-CoV-2 (COVID-19) mRNA-1273 vaccine 05/05/2020 Recorded SARS-CoV-2 (COVID-19) mRNA-1273 vaccine 04/07/2020 Recorded pneumococcal 13-valent vaccine 09/12/2019 Recorded influenza virus vaccine, inactivated 02/01/2019 Recorded influenza virus vaccine, inactivated 01/30/2018 Recorded influenza virus vaccine, inactivated 03/04/2016 Recor (more content not included)... Normal [facility] Comment on above: Result Comment: Elec tronically Signed By: LOC BELTRAN, SHRUTHI [employer]\Date and Time Signed: 07/05/22 15:45 EDT [facility]on SARS-CoV-2 (COVID-19) RNA JESSIE+probe Ql (Unsp spec) Detected Critically abnormal NOT DETECTED [facility] Comment on above: Result Comment: This test is not yet approved or cleared by the [place] FDA. When there are no FDA-approved or cleared tests available, and other criteria are met, FDA can make tests available under an emergency access mechanism called an Emergency Use Authorization (EUA). The EUA for this test is supported by the [employer] In[employer] of Health and Human Service's declaration that circumstances exist to justify the emergency use of in vitro diagnostics for the detection and/or diagnosis of the virus that causes COVID-19. This EUA will remain in effect for the duration of the COVID-19 declaration justifying emergency of IVDs, unless it is terminated or revoked by the FDA (after which the test may no longer be used). Performed By: #### [facility] #### [facility] [address] [place] [address] Dr. Josie Bauman ECHOCARDIO M/2D COMPLETEon 0 07-19-2021 ECHOCARDIO M/2D COMPLETE Patient: UNA GOMEZ Exam Date: 07/19/2021 : 1940 Gender:F Ordering : DR SHRUTHI MONTERROSO . Admission #: [id number] Family : Order #: [id number] CLICK HERE TO VIEW EXAM ECHOCARDIOGRAM REPORT PROCEDURE: CARDIO PULMONARY ECHOCARDIO M/2D COMP INDICATIONS: Aortic Stenosis COMPARISON: None. DESCRIPTION: COMPLETE ECHOCARDIOGRAM Real-time transthoracic echocardiography with 2D, M-mode, spectral and color flow Doppler performed. QUALITY: Technical quality was good. LEFT VENTRICLE: Normal chamber size. Normal left ventricular wall thickness. Abnormal septal motion likely due to bundle branch block. Left ventricular systolic function is at the lower limits of normal. LV EF: Left ventricular ejection fraction is at the lower limits of normal, (50%). DIASTOLIC: Diastolic function is indeterminate. ATRIAL SEPTUM: LEFT ATRIUM: Normal chamber size. RIGHT ATRIUM: Normal chamber size. RIGHT VENTRICLE: Normal chamber size. Normal right ventricular systolic function. TRICUSPID VALVE: Normal mobility and thickness. No stenosis with trivial regurgitation. No evidence of pulmonary hypertension. RVSP is 33 mmHg MITRAL VALVE: Normal mobility and thickness. No evidence of mitral valve stenosis. There is no mitral annular calcification. Mild mitral regurgitation. AORTIC VALVE: Normal trileaflet appearance. Thickened aortic valve. Mildly diminished mobility. Doppler velocities suggest very aortic valve stenosis. DVI 0.59, LINDSEY (VTI) 1.54 cm2. Mild aortic regurgitation. AORTIC ROOT: Normal diameter and appearance. Ascending aorta is mildly dilated (3.37 cm). PULMONIC VALVE: Normal thickness and mobility. No stenosis. No regurgitation. PERICARDIUM: No evidence of pericardial effusion. IVC: Collapses with inspirations. PLEURA: CONCLUSION: 1. Left ventricular systolic function is at the lower limits of normal. LVEF is 50%. 2. Normal right ventricular systolic function. 3. Mild aortic valve stenosis. 4. No pericardial effusion. 5. Normal right-sided pressures. Adult Echocardiography Procedure Report Left Ventricle LVEDD (3.7 - 5.6 cm): 4.46 cm LVESD (2.2 - 4.0 cm): 3.33 cm LVIVS thickness (0.6 - 1.2 cm): 9.60 mm LVPW thickness (0.5 - 1.0 cm): 9.59 mm e': 5.59 cm/s E - e': 12.90 LVOT Area (cm2): 2.54 cm2 LVOT Diameter 1.80 cm Left Ventricular Ejection Fraction: 50 % Left Atrium LA Volume Index (2D A2C): 23.50 ml/m2 Left Atrium Systolic Dimension: 3.30 cm Left Atrium Systolic Area(A2C): 14.80 cm2 Left Atrium Systolic Volume(A2C): 08881 mm3 Mitral Valve MV E to A Ratio: 0.70 Mitral Valve A-Wave Peak Velocity: 102.00 cm/s Mitral Valve E-Wave Peak Velocity: 72.10 cm/s Deceleration Time: 251 ms Right Ventricle Aorta AO Root Diam: 3.30 cm Aortic Valve Peak Velocity (Antegrade Flow): 137.00 cm/s AoV Area (Peak Sami): 1.52 cm2 AoV Area (VTI): 1.54 cm2 Peak Velocity(Antegrade Flow): 174.00 cm/s Peak Gradient(Antegrade Flow): 12 mm[Hg] Mean Velocity(Antegrade Flow): 120.00 cm/s Mean Gradient(Antegrade Flow): 7 mm[Hg] Velocity Time Integral: 33.70 cm Tricuspid Valve Pulmonic Valve Peak Velocity: 127.00 cm/s Peak Gradient: 6 mm[Hg] Right Atrium Dictated by: Curtis Naylor M.D. on 07/19/2021 at 18:20 Approved by: Curtis Naylor M.D. on 07/19/2021 at 18:28 Normal [facility] KNEE LEFT [address] [facility] 07-16-2020 KNEE LEFT 3 [facility] Department of Radiology [address] [place] [id number] ======== Patient Name: UNA GOMEZ : 1940 Sex: F Age: Race: White Pt. Location: Patient Status: D Ordered Date: 07/16/2020 2:00:00 PM Completed Date: 07/16/2020 01:59 PM Requesting Provider: NICOLLE JAY Attending Provider: Report Copy To: Signs & Symptoms: M25.561 Pain in right knee I10 History: [place] Comments: , , , Ordering Provider - NICOLLE JAY MD , Exam: KNEE LEFT 3 S ======== KNEE LEFT 3 S 07/16/2020 1:59 PM SIGNS AND SYMPTOMS: M25.561 Pain in right knee I10 TECHNOLOGIST COMMENTS: pt states having bilateral knee pain. no known trauma QUESTION FOR THE RADIOLOGIST: , , , Ordering Provider - NICOLLE JAY MD , PROTOCOL: AP,Lateral and Tangential views were obtained. COMPARISON: None FINDINGS: Tricompartment degenerative disease. Medial compartment noted more so than lateral. Spur formation more pronounced medial side as well as tibial spines and patellar undersurface. Small suprapatellar joint effusion. IMPRESSION: * Tricompartment degenerative disease. No acute findings. Electronically signed: Trell Amado. Transcribed by: [email or web address], User Resident: TRELL AMADO Electronically Signed by: TRELL AMADO @ 07/17/2020 10:46 AM I personally read this/these film(s) with this resident Normal [facility] Comment on above: Order Comment: , , = ========= , Ordering Provider - NICOLLE JAY MD , KNEE RIGHT [address] [facility] 1 KNEE RIGHT [address] [facility] Department of Radiology [address] [place] [phone] ======== Patient Name: UNA GOMEZ : 1940 Sex: F Age: Race: White Pt. Location: Patient Status: D Ordered Date: 07/16/2020 2:00:00 PM Completed Date: 07/16/2020 01:59 PM Requesting Provider: NICOLLE JAY Attending Provider: Report Copy To: Signs & Symptoms: M25.561 Pain in right knee I10 History: [place] Comments: , , , Ordering Provider - NICOLLE JAY MD , Exam: KNEE RIGHT 3 VWS ======== KNEE RIGHT 3 VWS 07/16/2020 1:59 PM SIGNS AND SYMPTOMS: M25.561 Pain in right knee I10 TECHNOLOGIST COMMENTS: pt states having bilateral knee pain. no known trauma QUESTION FOR THE RADIOLOGIST: , , , Ordering Provider - NICOLLE JAY MD , PROTOCOL: AP,Lateral and Tangential views were obtained. COMPARISON: None FINDINGS: Tricompartment degenerative disease. Anterior compartment shows remodeling of the patellar undersurface as well as adjacent lateral trochlea. Chronic suprapatellar joint effusion with calcifications. Additional chondrocalcinosis and medial and lateral compartment narrowing. IMPRESSION: * Tricompartment degenerative disease with advanced anterior compartment disease and articular surface remodeling. Electronically signed: Trell Amado. Transcribed by: [email or web address], User Resident: TRELL AMADO Electronically Signed by: TRELL AMADO @ 07/17/2020 08:46 AM I personally read this/these film(s) with this resident Normal [facility] Comment on above: Order Comment: , , = ========= , Ordering Provider - NICOLLE JAY MD , HIPS BILATERAL 2 VWS WITH PE LVISon 07-06-2020 HIPS BILATERAL [address] [facility] Department of Radiology [address] [place] [id number] ======== Patient Name: UNA GOMEZ : 1940 Sex: F Age: Race: White Pt. Location: 82 Patient Status: O Ordered Date: 07/06/2020 1:25:00 PM Completed Date: 07/06/2020 01:28 PM Requesting Provider: BERTHA MEZA Attending Provider: BERTHA MEZA Report Copy To: SHRUTHI MONTERROSO Signs & Symptoms: M25.551 Pain in right hip I10 History: [place] Comments: evaluate Exam: HIPS BILATERAL 2 VWS WITH PELVIS ======== HIPS BILATERAL 2 VWS WITH PELVIS HISTORY: Hip pain. COMPARISON: None. IMPRESSION: 1. Osteopenia, no appreciable fracture. No malalignment. If there is concern for occult fracture, consider further evaluation with MRI. 2. Hip arthritis with near complete joint space narrowing, multi focal osteophytes. Sacroiliac, pubic symphyseal, and partially visualized lower lumbar spine degenerative changes. Electronically signed: Lincoln Brooke. Transcribed by: [email or web address], User Resident: Electronically Signed by: LINCOLN BROOKE @ 07/06/2020 02:[address] [facility] Comment on above: Order Comment: evalu ate Operative Reporton Operative Report MR#: [id number] [facility] Pt. Name: Una Gomez Room #: [id number] Discharge 04/15/2020 Date: Birthdate: 1940 OPERATIVE REPORT DATE OF SURGERY: 04/14/2020 SURGEON: Bertha Meza MD PHOTOVOLTAIC PANEL INSTALLER: Bruno Schafer MD. ANESTHESIA: General with interscalene nerve block. PREOPERATIVE DIAGNOSIS: Left shoulder severe glenohumeral osteoarthritis with rotator cuff deficiency and arthropathy. POSTOPERATIVE DIAGNOSIS: Left shoulder severe glenohumeral osteoarthritis with rotator cuff deficiency and arthropathy. PROCEDURE PERFORMED: Left reverse total shoulder replacement noted as per anesthesia record. ESTIMATED BLOOD LOSS: 400 mL. DRAINS: None. SPECIMENS: None. COMPLICATIONS: None. EXPLANTS: None. IMPLANTS: 1. Tornier reverse Aequalis Ascend flex stem size 3. 2. Glenoid base plate, size 25 mm. 3. Glenosphere size 36 standard. 4. Standard tray. 5. +9 mm polyethylene insert. OPERATIVE INDICATION: The patient is an 80-year-old female patient, who presents to our office with chronic left hip pain and weakness and after failing extensive conservative management with physical therapy and corticosteroid injection, the patient was deemed an appropriate candidate to proceed to the above-mentioned procedure. The patient has had an MRI and an x-ray and a CT scan that showed severe glenohumeral osteoarthritis of the left shoulder joint with [id number] as well as severe massive retracted chronic rotator cuff tear with rotator cuff insufficiency. All benefits and potential risks of the procedure have been explained to the patient. Risks of surgery include, but not limited to infection, neurovascular injury, DVT, persistent pain, worsening of pain, loosening of the prosthesis, instability of the prosthesis, dislocation of the prosthesis, the need for further surgery, as well as medical risks associated with anesthesia. DESCRIPTION OF THE PROCEDURE: On the day of surgery, the patient was greeted in the preoperative holding area by me. The patient's left upper extremity and shoulder were marked with my initials. Informed consent was obtained. All questions were answered. Prophylactic antibiotics were administrated. Regional nerve block was established by Anesthesia in the preoperative holding area. The patient was then taken back to the operating theater, placed in supine position on the operating table. General anesthesia was induced without complications. The patient was then subsequently placed in a semi beach chair position where the head was secured in the headrest and all bony prominences were well padded and the patient was secured to the table with safety straps. The left upper extremity and shoulder were then prepped and draped in a standard sterile fashion. The arm was then placed in a spider arm mar and positioner. A time-out was next performed confirming correct patient, correct procedure, and correct laterality. We then began by marking our skin incision. Our landmark was the coracoid process and about 12 cm skin incision was made 1 cm lateral to the coracoid process and beginning just proximal to the coracoid process and crossing the deltopectoral groove, which was palpated. Once we made the skin incision, we then used Bovie to perform meticulous subcutaneous dissection of the subcutaneous tissue and fat. We then used 2 Gelpi retractors to retract the skin edges and made by identified the interval between the pectoralis major and the deltoid in the deltopectoral groove. We then identified the cephalic vein, which was dissected and retracted laterally with the deltoid. We then placed a Hohmann retractor over the coracoid, performed release of the coracoacromial ligament on the lateral aspect of the coracoid process to facilitate exposure. We also performed an extensive release of the subdeltoid as well as subcoracoid area. We then identified the strap muscles deeper to the pectoralis major muscle. In total to obtain better visualization and exposure, we performed a partial release of the insertion of the upper border of the pectoralis major and about 1 cm of the pectoralis major insertion was taken down to facilitate exposure. We also identified the circumflex visited the lower border of subscapularis and they were cauterized using Bovie. It was noted that the patient had a full-thickness tear of the supraspinatus and infraspinatus. There was also atrophied rudimentary subscapularis tendon. We then retracted the strap muscles medially and deltoid laterally. We then identified the biceps tendon in the bicipital groove and opened the sheaths of the biceps tendon. It was noted that the biceps tendon was severely diseased and sheath was significantly thickened and diseased as well. We then checked the biceps tendon proximally and entered the shoulder joint and performed a biceps tenotomy. We then followed the cou (more content not included)... Normal [facility] HEMOGLOBINon 04-14-2020 Hemoglobin (Bld) [Mass/Vol] 12.7 g/dL Normal 12.0-15.[address] [facility] Comment on above: Order Comment: No: D o not add to previous draw Performed By: #### [id number] #### [facility] [address] [place] [address], [facility] POC GLUCOSE LABon 04-14-2020 Glucose [Mass/Vol] 97 mg/dL Normal 70-[address] [facility] Comment on above: Performed By: #### [id number] #### [place] [address], [facility] PORTABLE SHOULDER LEFT 2 VWS on 04-14-2020 PORTABLE SHOULDER LEFT [address] [facility] Department of Radiology [address] [place] [id number] ======== Patient Name: UNA GOMEZ : 1940 Sex: F Age: Race: White Pt. Location: [place] [address] Patient Status: I Ordered Date: 04/14/2020 5:10:00 PM Completed Date: 04/14/2020 05:37 PM Requesting Provider: BRUNO SCHAFER Attending Provider: BERTHA MEZA Report Copy To: Signs & Symptoms: Pain History: Comments: Hardware Evaluation, in PACU Exam: PORTABLE SHOULDER LEFT 2 VWS ======== PORTABLE SHOULDER LEFT 2 VWS 04/14/2020 5:37 PM CLINICAL INDICATIONS: Pain TECHNOLOGIST COMMENTS: post op .Hardware Evaluation QUESTION FOR THE RADIOLOGIST: Hardware Evaluation, in PACU PROTOCOL: COMPARISON: Preoperative x-ray 12/25/2019 FINDINGS: There are recent surgical changes of total left glenohumeral arthroplasty with satisfactory gross alignment and no gross hardware failure. There is moderate amount of subcutaneous soft tissue emphysema consistent with recent surgical procedure. IMPRESSION: Satisfactory total left shoulder arthroplasty alignment with no gross hardware failure Electronically signed: Tarek Moustafa. Transcribed by: [email or web address], User Resident: EFRAIN INGRAM Electronically Signed by: EFRAIN INGRAM @ 04/14/2020 06:12 PM I personally read this/these film(s) with this resident Normal [facility] Comment on above: Order Comment: Hardw are Evaluation, in PACU Vital Signs Date Time Vital Sign Value Performing Clinician Facility 02-07-2023 15:15-0500 Body height 149.86 cm Imad Asaad Other [facility] Other 02-07-2023 15:15-0500 Body mass index (BMI) [Ratio] 27.87 kg/m2 Imad Asaad Other [facility] Other 02-07-2023 15:15-0500 Body weight 62.6 kg Imad Asaad Other [facility] Other 02-07-2023 15:15-0500 Diastolic blood pressure 63 mm[Hg] Imad Asaad Other [facility] Other 02-07-2023 15:15-0500 Systolic blood pressure 129 mm[Hg] Imad Asaad Other [facility] Other 12-13-2022 14:15-0400 Body height 149.86 cm Imad Asaad Other [facility] Other 12-13-2022 14:15-0400 Body mass index (BMI) [Ratio] 29.28 kg/m2 Imad Asaad Other [facility] Other 12-13-2022 14:15-0400 Body weight 65.77 kg Imad Asaad Other [facility] Other 12-13-2022 14:15-0400 Diastolic blood pressure 63 mm[Hg] Imad Asaad Other [facility] Other 12-13-2022 14:15-0400 Systolic blood pressure 140 mm[Hg] Imad Asaad Other [facility] Other Encounters Encounter Date Encounter Type Care Provider Facility Start: 03-03-2023 End: 03-04-2023 ambulatory Marlee L Yun Facility:[facility] Start: 02-07-2023 End: 02-07-2023 ambulatory Imad Asaad Other [facility] Other Start: 02-07-2023 Office outpatient ne w 45 minutes Imad Asaad [facility] Start: 12-27-2022 End: 12-27-2022 ambulatory Imad Asaad Facility:[facility] Start: 12-26-2022 ambulatory Joy Harper Facility:[facility] Start: 12-13-2022 End: 12-13-2022 ambulatory Imad Asaad Other [facility] Other Start: 12-13-2022 Office outpatient ne w 45 minutes Imad Asaad [facility] Start: 10-20-2022 End: 10-20-2022 ambulatory [facility] Start: 10-12-2022 ambulatory SHRUTHI MONTERROSO Facility:[facility] Start: 09-19-2022 End: 09-20-2022 ambulatory Yaniv De La Garza Facility: [facility] Start: 09-16-2022 End: 09-17-2022 ambulatory Marlee L Yun Facility: [facility] Start: 09-09-2022 End: 09-10-2022 ambulatory Marlee L Yun Facility:[facility] Start: 09-09-2022 End: 09-09-2022 Lab Drop off Marlee L Yun [facility] Start: 09-08-2022 End: 09-09-2022 ambulatory Yaniv De La Garza Facility: [facility] Start: 08-08-2022 End: 08-09-2022 ambulatory Yaniv De La Garza Facility: [facility] Start: 07-26-2022 End: 07-27-2022 ambulatory SHRUTHI MONTERROSO Facility:[facility] Start: 07-26-2022 End: 07-27-2022 ambulatory SHRUTHI MONTERROSO Facility:[facility] Start: 07-05-2022 End: 07-06-2022 ambulatory SHRUTHI MONTERROSO Facility:[facility] Start: 06-14-2022 ambulatory SHRUTHI MONTERROSO Facility: [facility] Start: 06-08-2022 End: 06-09-2022 ambulatory CASEY GARSIA Facility:[facility] Start: 03-03-2022 End: 03-04-2022 ambulatory CASEY GARSIA Facility:[facility] Start: 01-03-2022 End: 01-04-2022 ambulatory TAISHA EATON Facility:[facility] Start: 12-22-2021 End: 02-10-[address] SHRUTHI MONTERROSO . Facility:[facility] Start: 11-29-2021 End: 11-30-2021 ambulatory CASEY GARSIA Facility:[facility] Start: 09-07-2021 End: 09-07-[address] SHRUTHI MONTERROSO . Facility:[facility] Start: 08-27-2021 End: 08-28-2021 ambulatory CASEY GARSIA Facility:[facility] Start: 07-19-2021 End: 07-20-[address] SHRUTHI MONTERROSO . Facility:[facility] Start: 04-14-2020 End: 04-15-2020 Evaluation and management of inpatient SHRUTHI MONTERROSO Facility:[facility] Procedures Date Procedure Procedure Detail Performing Clinician Start: 04-15-2020 ASSISTANCE WITH RESP IRATORY VENTILATION, <24 HRS OSAMA ELATTAR Start: 04-14-2020 REPLACEMENT OF L ABIGAIL JEFFRIESDER JT WITH SYNTH SUB, OPEN APPROACH OSAMA ELATTAR Start: 04-14-2020 REPOSITION LEFT UPPE R ARM TENDON, OPEN APPROACH OSAMA ELATTAR Bilateral cataracts (disorder) Marlee Yun Cholecystectomy Marlee Yun Prosthetic arthropla sty of shoulder Marlee Yun Comment on above: right 2019 Plan of Treatment Date Care Activity Detail Author Start: 09-14-2023 ambulatory Ambulatory Facility:[facility] Start: 03-20-2023 ambulatory [facility] Immun[facility] Immunization Date Immunization Notes Care Provider Analisa juan 02-10-2022 SARS-CoV-2 (COVID-19 ) [id number] Marlee Yun [facility] 12-27-2021 influenza virus vacc ine, unspecified formulation Marlee Yun [facility] 03-17-2021 SARS-CoV-2 (COVID-19 ) mRNA-1273 vaccine Marlee Yun [facility] Comment on above: Result Comment: 2022: [id number] 02-10-2021 influenza virus vacc ine, unspecified formulation Marlee Yun [facility] 09-11-2020 pneumococcal polysaccharide vaccine, 23 valent Marlee Yun [facility] 05-05-2020 SARS-CoV-2 (COVID-19 ) mRNA-1273 vaccine Marlee Yun [facility] 04-07-2020 SARS-CoV-2 (COVID-19 ) mRNA-1273 vaccine Marlee Yun [facility] 09-12-2019 pneumococcal conjuga te vaccine, 13 valent Marlee Yun [facility] 02-01-2019 influenza virus vacc ine, unspecified formulation Mralee Yun [facility] 01-30-2018 influenza virus vacc ine, unspecified formulation Marlee Yun [facility] 03-04-2016 influenza virus vacc ine, unspecified formulation Marlee Yun [facility] 03-18-2015 influenza virus vacc ine, unspecified formulation Marlee Yun [facility] 01-17-2005 influenza, whole Marlee Yun [facility] Payers Date Payer Category Payer Self-pay 1961 Medicare [id number] 1940 Unknown [id number] 2.16.8 40.1.745804.3.579.2.647 1940 Unknown [id number] 2.16.84 0.1.490811.3.579.2.593 1940 Unknown [id number] 2.16.84 0.1.489991.3.579.2.593 1940 Unknown [id number] 2.16.84 0.1.537055.3.579.2.593 1940 Unknown [id number] 2.16.84 0.1.095106.3.579.2.593 1940 Unknown [id number] 2.16.84 0.1.840057.3.579.2.593 1940 Unknown [id number] 2.16.84 0.1.423405.3.579.2.593 1940 Unknown [id number] 2.16.84 0.1.201143.3.579.2.593 1940 Unknown [id number] 2.16.84 0.1.743555.3.579.2.593 1940 Unknown [id number] 2.16.8 40.1.604903.3.579.2.727 1940 Unknown [id number] 2.16.8 40.1.909861.3.579.2.727 1940 Unknown [id number] 2.16.8 40.1.541872.3.579.2.727 1940 Unknown [id number] 2.16.8 40.1.038449.3.579.2.727 1940 Unknown [id number] 2.16.8 40.1.779332.3.579.2.727 1940 Unknown [id number] 2.16.8 40.1.680087.3.579.2.727 1940 Unknown [id number] 2.16.8 40.1.595159.3.579.2.727 1940 Unknown [id number] 2.16.8 40.1.831314.3.579.2.727 1940 Unknown [id number] 2.16.8 40.1.225431.3.579.2.727 1940 Unknown [id number] 2.16.8 40.1.979530.3.579.2.727 1940 Unknown [id number] 2.16.8 40.1.804253.3.579.2.727 1940 Unknown [id number] 2.16.8 40.1.421324.3.579.2.727 1940 Unknown [id number] 2.16.8 40.1.617201.3.579.2.727 1940 Unknown [id number] 2.16.8 40.1.657044.3.579.2.727 Private Health Insurance [facility] [id number] Unknown [id number] 2.16.8 40.1.357089.3.579.2.531 Social History Date Type Detail Facility Start: 09-08-2022 Tobacco smoking status Never s moked tobacco (finding) [facility] Sex Assigned At Female [facility] Evaluation note 02-07-2023 Note Date & Type Note Facility 02-07-2023 Evaluation note Encounter Date Diagnosis Assessment Notes Feb, Fatty liver (ICD-10 - K76.0) Patient advised to make life style modifications -diet/exercis e/weight loss. Repeat fibroscan in 1 yr Rto 1 yr [facility] Other Evaluation note 12-13-2022 Note Date & Type Note Facility 12-13-2022 Evaluation note Encounter Date Diagnosis Assessment Notes Dec, RUQ pain (ICD-10 - R10.11) [facility] Other Progress note 10-20-2022 Note Date & Type Note Facility 10-20-2022 Note Cardiology Clinic No te Subjective Una Gomez is a 82 y.o. year old female with past medical history of aortic valve stenosis, left bundle branch block, hypertension, and ?irregular heart rhythm seen in follow-up. 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 Age-related osteoporosis without current pathological fracture Allergic rhinitis Asthma Blepharitis of upper and lower eyelids of both eyes Diverticular disease Dry eyes Dyspnea Foot drop Heart murmur Hypercholesterolemia Hypertension Hypothyroidism Labyrinthitis Left bundle branch block Non-seasonal allergic rhinitis due to pollen Osteoarthritis of glenohumeral joint Osteoarthritis of hip Osteoporosis Over weight Post poliomyelitis syndrome Restless legs syndrome Right upper quadrant pain Shoulder pain Squamous cell carcinoma in situ Steatosis of liver Lumbar spondylosis No family history on file. Social History Tobacco Use Smoking status: Never Smokeless tobacco: Never Substance Use Topics Alcohol use: Not Currently Drug use: Never HPI Ms. Gomez is seen in follow up. She is an 81-year-old woman. She has history of polio as a child with right leg weakness. In 2014 she was admitted to the [place] with shortness of breath. Her echocardiogram showed normal ventricular function, and normal valvular function. At that time her ECG showed that she has LBBB which was new compared to prior ECG several years ago. She has been taking digoxin for many years for ? irregular heart beat. She has prior history of possible bicuspid aortic valve noted in prior documents but a prior echocardiogram showed normal valve. Recent echocardiogram in July 2021 showed preserved ventricular function with mild aortic valve stenosis and mild regurgitation. She has hypertension on therapy. She has been doing well with no chest pain and no shortness of breath. She is taking thyroid replacement and feels good with that. She has good activity tolerance and no symptoms. Update: 10/20/2022 She has been doing well without concerns Blood pressure is well controlled Denies chest pain, dyspneic symptoms, or lower extremity edema Review of Systems Cardiovascular: Negative for chest pain, dyspnea on exertion, irregular heartbeat, leg swelling, near-syncope, orthopnea, palpitations, paroxysmal nocturnal dyspnea and syncope. Objective Visit Vitals BP 100/60 (BP Location: Right arm, Patient Position: Sitting, BP Cuff Size: Adult) Pulse 70 Resp 12 Ht 1.499 m (4' 11 ) Wt 59.9 kg (132 lb) SpO2 96% BMI 26.66 kg/m??? Smoking Status Never BSA 1.58 m??? Physical Exam General: Awake, alert, NAD Pulm: Breath sounds clear to ascultation bilaterally with no wheeze, crackles or rhonchi Cards: Regular rate and rhythm, S1, S2. No S3 or S4 gallop. Murmur: none Extr: Lower extremity edema: None. Skin: warm, dry, well perfused Neuro: A&Ox3, No gross deficits Allergies Allergies Allergen Reactions Amoxicillin-Pot Clavulanate Unknown Fluconazole Unknown Other Reaction(s): Unknown Sulfa (Sulfonamide Antibiotics) Unknown Tramadol Unknown Other Reaction(s): Unknown Medications Current Outpatient Medications: aspirin 81 mg EC tablet, 1 (one) time each day at the same time., Disp: , Rfl: budesonide-formoteroL (Symbicort) 80-4.5 mcg/actuation inhaler, Inhale 1 puff twice a day by inhalation route for 90 days., Disp: , Rfl: candesartan (Atacand) 4 mg tablet, Take 1 tablet every day by oral route for 90 days., Disp: , Rfl: celecoxib (CeleBREX) 200 mg capsule, , Disp: , Rfl: digoxin (Lanoxin) 125 MCG tablet, Take 1 tablet every day by oral route for 90 days., Disp: , Rfl: montelukast (Singulair) 10 mg tablet, , Disp: , Rfl: spironolactone (Aldactone) 25 mg tablet, , Disp: , Rfl: Synthroid 50 mcg tablet, , Disp: , Rfl: Recent Labs Request recent labs from PCP Dr. De La Garza. Imaging and other tests Echocardiogram: 10/05/2022 Mild left ventricular hypertrophy with normal global systolic function. LVEF 55 to 60% Mild right ventricular size and function Mild diastolic dysfunction Mild aortic valve stenosis with mild regurgitation (DVI 0.5, V-max 2.1 m/s, mean gradient 8.94 mmHg) Mildly elevated right-sided pressures (RVSP 36 mmHg) Echocardiogram 07/19/2021: LV systolic function is at the lower limits of normal, LVEF is 50%, normal right ventricular systolic function, mild aortic valve stenosis, no pericardial effusion, normal right-sided pressures. The aortic valve has a normal trileaflet appearance. Aortic valve area is 1.54 cm???, DVI 0.59. Mild aortic valve regurgitation. Blood testing 06/28/2021: Hemoglobin 13.3, platelets 176, potassium 4.3, BUN 10, creatinine 0.86, GFR more than 60, LFTs normal, TSH normal. ECG 01/13/2021: Sinus rhythm, left bundle branch block. Pr (more content not included)... [facility] Discharge summary note 04-22-2020 Note Date & Type Note Facility 04-22-2020 Note MR#: [id number] [facility] Pt. 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 SECONDARY DIAGNOSIS: None. HOSPITAL COURSE: The patient came to the [facility] for left reverse total shoulder arthroplasty on 04/14/2020. The patient tolerated the procedure well. The patient was transferred up to the floor where she worked with PT and OT. The patient was discharged home in good condition on 04/15/2020 with prescriptions for pain medicine for Colace and for Lovenox. The patient will follow up with Dr. Meza in clinic in 2 weeks' time. The patient will be nonweightbearing in a sling. Electronically Signed by: Bertha Meza MD 05/03/2020 09:57 P Bertha Meza MD I personally saw this patient on the day of the encounter, performed the penaloza portion(s) of the service and participated in the management and confirm the resident's documentation. Please note there may be an additional personal documentation from me. Date Dict: 04/22/2020/05:42 P/Bruno Schafer MD Date Trans: 04/22/2020 06:23 P/vicky [id number] cc: Shruthi Monterroso M.D. [address] [place] [address] [facility] [id number] [facility] Evaluation + Plan note Note Date & Type Note Facility Evaluation + Plan note Future Appointments Appointment Date:09/19/2022 10:40:00 AM Scheduled Provider:Yaniv De La Garza MD Location:[facility] Appointment Type: Open Appointment Date:09/14/2023 11:00:00 AM Scheduled Provider: Location:[facility] Appointment Type:FM Medicare Wellness Subsequent [facility] History general Narrative - Reported Note Date & Type Note Facility History general Narrative - Reported Type Medical History ASTHMA Medical History VERTIGO Medical History ESOPHAGEAL STRICTURE Surgical History SHOULDER REPLACEMENT Surgical History CHOLECYSTECOMY Hospitalization History SEE ABOVE [employer] Other Hospital course Narrative Note Date & Type Note Facility Hospital course Narrative No data available for this section [facility] Hospital Discharge instructions Note Date & Type Note Facility Hospital Discharge instructions No data available for this section [facility] Progress note Note Date & Type Note Facility Progress note No data available for this section [facility] Summary Purpose Family History No Family History Records FoundNo Family History Records FoundNo Family History Records FoundNo Family History Records FoundNo Family History Records Found Advance Directives No Advanced Directives Records FoundNo Advanced Directives Records FoundNo Advanced Directives Records FoundNo Advanced Directives Records FoundNo Advanced Directives Records Found Additional Source Comments INFORMATION SOURCE (unrecogn ized section and content) DATE CREATED AUTHOR 04/11/2021 [facility] DATE CREATED AUTHOR AUTHOR'S ORGANIZ ATION 07/07/2022 [facility] DATE CREATED AUTHOR AUTHOR'S ORGANIZ ATION 10/21/[address] [facility] DATE CREATED AUTHOR AUTHOR'S ORGANIZ ATION 01/08/2023 [facility] [place] DATE CREATED AUTHOR AUTHOR'S ORGANIZ ATION 03/07/2023 [place] [facility] Patient Care team informatio n (unrecognized section and content) Personnel Name: Francisco BELTRAN, Yaniv Pope Address: [address] [place] [address]- REASON FOR VISIT (unrecogniz ed section and content) PATIENT IS HERE AT THE [facility] OF DR[facility] DE LA GARZA FOR RUQ PAIN. ULTRASOUND SHOWED ABNORMALITIES OF LIVERfibroscan follow up FOR RECORDS PERTAINING TO PATIENTS WHO ARE OR HAVE BEEN ENROLLED IN A CHEMICAL DEPENDENCY/SUBSTANCEABUSE PROGRAM, SOME INFORMATION MAY BE OMITTED. This clinical summary was aggregated from multiple sources. Caution should be exercised in using it in the provision of clinical care. This summary normalizes information from multiple sources, and as a consequence, information in this document may materially change the coding, format and clinical context of patient data. In addition, data may be omitted in some cases. CLINICAL DECISIONS SHOULD BE BASED ON THE PRIMARY CLINICAL RECORDS. [employer] provides no warranty or guarantee of the accuracy or completeness of information in this document.
== END 2023-03-22 13:31 | disposition home or self-care (01) ==
LOC: WC 13:30
PROVIDERS: PCP Family Medicine; Visit Provider Podiatrist Foot & Ankle Surgery
DX: L60.3 Nail dystrophy (principal); G99.0 Autonomic neuropathy in diseases classified elsewhere
CPT/HCPCS: 11721

== ENCOUNTER 2023-04-24 15:55 | Outpatient (RCR) | payer MEDICARE, SELFPAY | END 2023-05-03 10:17 | disposition home or self-care (01) | LOC: PT 15:55 | PROVIDERS: PCP Family Medicine | DX: M54.2 Cervicalgia (principal); M50.30 Other cervical disc degeneration, unspecified cervical region; M54.12 Radiculopathy, cervical region ==

== ENCOUNTER 2023-06-21 13:46 | Outpatient (OUT) | payer MEDICARE, SELFPAY | END 2023-06-21 13:47 | disposition home or self-care (01) | LOC: WC 13:46 | PROVIDERS: PCP Family Medicine; Visit Provider Podiatrist Foot & Ankle Surgery | DX: L60.3 Nail dystrophy (principal); B35.1 Tinea unguium; G99.0 Autonomic neuropathy in diseases classified elsewhere; I73.89 Other specified peripheral vascular diseases | CPT/HCPCS: 11721 ==

== ENCOUNTER 2023-06-29 09:33 | Outpatient (OUT) | payer MEDICARE, SELFPAY ==
--- OUTSIDE RECORDS SUMMARY | 2023-06-29 09:43 | XMS_ITS | CCD ---
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 Primary Care Physician Asaad, Imad Unavailable Asaad, Imad Admitting Unavailable Clintad, Imad Attending Unavailable Yaniv De La Garza Primary Care Unavailable OTTONIEL LOUISE Attending Unavailable ELATTAR, OSAMA Attending Unavailable ELATTAR, OSAMA Referring Unavailable ELATTAR, OSAMA Referring Unavailable ELATTAR, OSAMA Referring Unavailable SHAHBAZ SCHULTZ Attending Unavailable CYNTHIA PENN Attending Unavailable BERTHA MEZA Referring Unavailable Marlee Malcolm Attending Unavailable MD Yaniv De La Garza Attending Unavailable Marlee Malcolm Attending Unavailable SHRUTHI MONTERROSO Attending Unavailable SHRUTHI MONTERROSO Attending Unavailable SHRUTHI MONTERROSO Admitting Unavailable SHRUTHI MONTERROSO Attending Unavailable Marlee Malcolm Attending Unavailable Marlee Malcolm Admitting Unavailable Joy Harper Attending Unavaila MD Yaniv Marshall Referring Unavailable MD Yaniv De La Garza Attending Unavailable MD Yaniv De La Garza Attending Unavailable Marlee Malcolm Attending Unavailable MD Yaniv De La Garza Attending Unavailable Marlee Malcolm Attending Unavailable MD Yaniv De La Garza Attending Unavailable MD Yaniv De La Garza Attending Unavailable Allergies Allergy Classification Reported Allergen(s) Allergy Type Date of Onset Reaction(s) Facility (1 source) Hicks powder; Translations: [hicks powder] Propensity to adverse reactions (disorder) [address] [facility] Repository (1 source) eggplant extract Drug Allergy [address] [facility] Repository (3 sources) Sulfonamides (Antibiotic); Translations: [SULFA (SULFONAMIDE ANTIBIOTICS)] Propensity to adverse reactions (disorder) [address] [facility] Repository (1 source) HYDROcodone Drug Allergy 0 [facility] Repository (1 source) Sulfonamides (Antibiotic) Drug allergy (disorder) 3 [facility] Repository (2 sources) Amoxicillin / Clavulanate; Translations: [amoxicillin-cla vulanate] Drug Allergy Unknown (qualifier value) [facility] (3 sources) Fluconazole; Translations: [fluconazole] Drug Allergy 3 Unknown (qualifier value) [facility] (2 sources) Sulfonamides (Antibiotic); Translations: [sulfa drugs] Drug allergy Unknown (qualifier value) [facility] (3 sources) traMADol; Translations: [tramadol] Drug Allergy 3 Unknown (qualifier value) [facility] (1 source) AMOXICILLIN-POT CLAVULANATE; Translations: [AMOXICILLIN-POT CLAVULANATE] Propensity to adverse reactions to drug (disorder) 3 [facility] Repository Medications Current Medications Medication Drug Class(es) [...] Daily, # 90 tab(s), Refills(s) 0, Pharmacy: [facility], 148, cm, 09/08/22 11:37:00 EDT, [...] dizziness, # 30 tab(s), Refills(s) 0, Pharmacy: [facility]/pharmacy #[id number], 147.8, cm, 07/26/22 15:28:00 EDT, Height/Length [...] Daily, # 90 tab(s), Refills(s) 3, Pharmacy: [facility], 147.8, cm, 07/26/22 15:28:00 EDT, [...] Osteoporosis (1 source) Osteoporosis 07-05-2022 Chronic Other [employer] infection and poliomyelitis (1 source) Post poliomyelitis [...] AUTONOMIC NERVOUS SYS] Onset: 12-11-19 Chronic Other non-traumatic joint disorders (2 sources) Pain in right shoulder; Translations: [Pain in right shoulder] Onset: 10-21-19 Episodic Other non-traumatic joint disorders (2 sources) Pain in left shoulder; Translations: [Pain in left shoulder] Onset: 10-21-19 Episodic Other nutritional; endocrine; and metabolic disorders (1 source) Overweight 07-05-2022 Episodic Other skin disorders (4 sources) Nail dystrophy; Translations: [NAIL DYSTROPHY] Onset: 06-09-19 Episodic Other upper respiratory disease (1 source) Allergic rhinitis 07-05-2022 Chronic Peripheral and visceral atherosclerosis (1 source) Peripheral vascular disease, unspecified; Translations: [PERIPHERAL VASCULAR DISEASE UNS] Onset: 03-11-19 Chronic Spondylosis; intervertebral disc disorders; other back problems (5 sources) Cervical spondylosis; Translations: [Lumbar spondylosis] Onset: 04-13-1907-05-2022 Chronic Spondylosis; intervertebral disc disorders; other back problems (4 sources) Radiculopathy, cervical region; Translations: [Cervicalgia] Onset: 04-10-19 24 Episodic Thyroid disorders (1 source) Hypothyroidism 07-05-2022 Chronic Unclassified (3 sources) COUGH, UNSPECIFIED; Translations: [COUGH, UNSPECIFIED] Onset: 09-11-19 Viral infection (1 source) COVID-19; Translations: [COVID-19] Onset: 09-11-19 22 Past or Other Problems Problem Classification Problem [...] Results Test Name Value Interpretation Reference Range Facil ity Ambulatory Visit Summaryon 0 06-27-2023 Ambulatory Visit Summary UNA GOMEZ :1940 Visit Date:06/27/2023 Ambulatory Visit Instructions Your Care Team Attending Physician - Yaniv [...] Cataracts, Cholecystectomy, Shoulder replacement. Discharge Vitals Temperature (Temporal Artery) 36.1 ?C Heart Rate (Peripheral) 76 Respiratory Rate 16 Blood Pressure 120/78 Height 148 cm Height 58 in Weight 62.3 kg Weight 137.06 lb BMI 28.44 What to do next Scheduled Follow-Up Appointments 2023 11:00 AM EDT With: Where: [facility] [place] [facility] [address] [place] [address]- \.br\ Medications\.br\ What How Much When Instructions\.br\ Unchanged acetaminophen (Tylenol Extra Strength) 500 Milligram By Mouth 2 times a day as needed for as needed for pain\.br\ Unchanged albuterol (ProAir HFA) Inhalation Every 6 hours as needed for Wheezing\.br\ Unchanged aspirin 81 Milligram By Mouth Every day\.br\ Unchanged budesonide-formoterol (Symbicort) 80/4.5 Inhalation 2 times a day\.br\ [...] that you are currently receiving treatment for.\.br\ Asthma\.br\ Cervical spondylosis\.br\ Diverticular disease\.br\ Foot drop\.br\ Hypercholesterolemia\ .br\ Hypothyroidism\.br\ Lumbar spondylosis\.br\ Murmur\.br\ Nasal congestion\.br\ Non-seasonal allergic rhinitis due to pollen\.br\ Osteoarthritis of hip\.br\ Osteopenia\.br\ Over weight\.br\ Post-poliomyelitis muscular atrophy\.br\ Primary hypertension\.br\ Restless legs syndrome\.br\ Right upper quadrant pain\.br\ Shoulder pain, right\.br\ Squamous cell carcinoma in situ\.br\ Steatosis of liver\.br\ Thoracic spondylosis\.br\ Patient Survey\.br\ You may receive a survey via text or e-mail asking about your office visit. Please share your experience with us by completing your survey. We appreciate your feedback and thank you for choosing us for your care.\.br\ \.br\ [facility] Family Medicine Office/Clini c Noteon 06-27-2023 Family Medicine Office/Clinic Note HPI Staff Una is an 83 year old female presenting for acute visit Acute: left knee pain, wants to discuss options Also started with some right hip pain, sore when pushes on it Pain characteristics: Pain location: left knee Intensity:3/10 Onset: ongoing 4 years ago had xrays and was told bone on bone got a shot that helped for awhile and using voltaren gel Medication used: voltaren gel History of Present Illness - See staff HPI. Physical Exam Vitals & Measurements T: 36.1 ?C(Temporal Artery) HR: 76(Peripheral) RR: 16 BP: 120/78 SpO2: 97% HT: 58 in HT: 148 cm WT: 62.3 kg WT: 137.06 lb BMI: 28.44 General: alert, no acute distress ENMT: oral mucosa moist, Cardiovascular: normal peripheral perfusion Respiratory: respirations non labored Extremities: no deformity, no trauma, antalgic gait Neurological: oriented x 4, LOC appropriate for age, CN II-XII intact, motor strength equal & normal bilaterally, speech normal Assessment/Plan 1. Knee pain, left (M25.562: Pain in left knee) - Steroids - Injection by ortho when able - Xray ordered. [place] [facility] [place] Referral Orders: methylPREDNISolone, = 1 packet(s), Oral, As Directed, as directed on package labeling, X 6 day(s), # 21 tab(s), Refills(s) 0, Pharmacy: [facility]/pharmacy #[id number], 148, cm, 06/27/23 11:22:00 EDT, Height/Length Dosing, 62.3, kg, 06/27/23 11:22:00 EDT, Weight Dosing Follow-up No qualifying data available Patient Education Acute Knee Pain, Adult Problem List/Past Medical History Ongoing Asthma Cervical spondylosis Diverticular disease Foot drop Hypercholesterolemia Hypothyroidism Knee pain, left Lumbar spondylosis Murmur Nasal congestion Non-seasonal allergic rhinitis due to pollen Osteoarthritis of hip Osteopenia Over weight Post-poliomyelitis muscular atrophy Primary hypertension Restless legs syndrome Right upper quadrant pain Shoulder pain, right Squamous cell carcinoma in situ Steatosis of liver Thoracic spondylosis Historical No qualifying data Procedure/Surgical History Cataracts, Cholecystectomy, Shoulder replacement. Medications aspirin, 81 mg, Oral, Daily Atacand 4 mg Tab, 4 mg= 1 tab(s), Oral, Daily, 1 refills celecoxib 200 mg Cap, 200 mg= 1 cap(s), Oral, BID, 1 refills digoxin 125 mcg (0.125 mg) Tab, 125 mcg= 1 tab(s), Oral, Daily, 3 refills ICaps AREDS 2, See Instructions levothyroxine 50 mcg (0.05 mg) Tab, 50 mcg= 1 tab(s), Oral, Daily, 1 refills meclizine 25 mg Tab, 25 mg= 1 tab(s), Oral, q8hr, Self Directed Medrol 4 mg Tab, 1 packet(s), Oral, As Directed metoprolol 25 mg ER Tab, 25 mg= 1 tab(s), Oral, Bedtime, 1 refills montelukast 10 mg Tab, 10 mg= 1 tab(s), Oral, Daily, 3 refills ProAir HFA, Inhalation, q6hr, PRN spironolactone 25 mg Tab, 25 mg= 1 tab(s), Oral, Daily, 1 refills Symbicort, 80/4.5, Inhalation, BID Tums, Chewed, Daily Tylenol Extra Strength, 500 mg, Oral, BID, PRN Allergies Augmentin (Unknown) Diflucan (Unknown) sulfa drugs (Unknown) traMADol (Unknown) Social History Alcohol Household alcohol concerns: No., 09/08/2022 Tobacco Never (less than 100 in lifetime) Tobacco Use:. Never Smokeless Tobacco Use:. Household tobacco concerns: No., 06/27/2023 Family History Acute myocardial infarction: Grandparent and Grandparent. Immunizations Vaccine Date Status Comments influenza virus vaccine, inactivated 12/14/2022 Recorded SARS-CoV-2 (COVID-19) [id number] 02/10/2022 Recorded influenza virus vaccine, inactivated 12/27/2021 [...] 03/18/2015 Recorded influenza, whole 01/17/2005 Recorded Normal [facility] Comment on above: Result Comment: Elec tronically Signed By: Francisco BELTRAN, Yaniv Sanabria.br\Date and Time Signed: 06/27/23 11:48 EDT Patient Educationon 06-27-19 Patient Education Orthopedics Acute Knee Pain, Adult Acute knee pain is sudden and may be caused by damage, swelling, or irritation of the muscles and tissues that support the knee. Pain may result from: ? A fall. ? An injury to the knee from twisting motions. ? A hit to the knee. ? Infection. Acute knee pain may go away on its own with time and rest. If it does not, your health care provider may order tests to find the cause of the pain. These may include: ? Imaging tests, such as an X-ray, MRI, CT scan, or ultrasound. ? Joint aspiration. In this test, fluid is removed from the knee and evaluated. ? Arthroscopy. In this test, a lighted tube is inserted into the knee and an image is projected onto a TV screen. ? Biopsy. In this test, a sample of tissue is removed from the body and studied under a microscope. Follow these instructions at home: If you have a knee sleeve or brace: ? Wear the knee sleeve or brace as told by your health care provider. Remove it only as told by your health care provider. ? Loosen it if your toes tingle, become numb, or turn cold and blue. ? Keep it clean. ? If the knee sleeve or brace is not waterproof: ? Do not let it get wet. ? Cover it with a watertight covering when you take a bath or shower. Activity ? Rest your knee. ? Do not do things that cause pain or make pain worse. ? Avoid high-impact activities or exercises, such as running, jumping rope, or doing jumping jacks. ? Work with a physical therapist to make a safe exercise program, as recommended by your health care provider. Do exercises as told by your physical therapist. Managing pain, stiffness, and swelling ? If directed, put ice on the affected knee. To do this: ? If you have a removable knee sleeve or brace, remove it as told by your health care provider. ? Put ice in a plastic bag. ? Place a towel between your skin and the bag. ? Leave the ice on for 20 minutes, 2?3 times a day. ? Remove the ice if your skin turns bright red. This is very important. If you cannot feel pain, heat, or cold, you have a greater risk of damage to the area. ? If directed, use an elastic bandage to put pressure (compression) on your injured knee. This may control swelling, give support, and help with discomfort. ? Raise (elevate) your knee above the level of your heart while you are sitting or lying down. ? Sleep with a pillow under your knee. General instructions ? Take fpdl-vhx-skxynve and prescription medicines only as told by your health care provider. ? Do not use any products that contain nicotine or tobacco, such as cigarettes, e-cigarettes, and chewing tobacco. If you need help quitting, ask your health care provider. ? If you are overweight, work with your health care provider and a dietitian to set a weight-loss goal that is healthy and reasonable for you. Extra weight can put pressure on your knee. ? Pay attention to any changes in your symptoms. ? Keep all follow-up visits. This is important. Contact a health care provider if: ? Your knee pain continues, changes, or gets worse. ? You have a fever along with knee pain. ? Your knee feels warm to the touch or is red. ? Your knee inderjit or locks up. Get help right away if: ? Your knee swells, and the swelling becomes worse. ? You cannot move your knee. ? You have severe pain in your knee that cannot be managed with pain medicine. Summary ? Acute knee pain can be caused by a fall, an injury, an infection, or damage, swelling, or irritation of the tissues that support your knee. ? Your health care provider may perform tests to find out the cause of the pain. ? Pay attention to any changes in your symptoms. Relieve your pain with rest, medicines, light activity, and the use of ice. ? Get help right away if your knee swells, you cannot move your knee, or you have severe pain that cannot be managed with medicine. This information is not intended to replace advice given to you by your health care provider. Make sure you discuss any questions you have with your health care provider. Document Revised: 08/05/2020 Document Reviewed: 08/05/2020 [employer] Patient Education ? 2022 [employer]. [facility] Physician Referralon 024 Physician Referral [id number] 1.00TIFF [facility] Physician Orderon 04-21-2023 Physician Order [id number] .00TIFF [facility] Consultation Noteon 04-18-19 24 Consultation Note [id number] .00TIFF [facility] 29on 04-13-2023 29 Addended by: TYRONE MONTALVO on: 04/13/2023 10:49 AM Modules accepted: Orders [facility] Office Visiton 04-13-2023 Follow-up visit [id number] Una Gomez 1940 F Date Provider Department Center 04/13/2023 [facility]CYNTHIA P[facility] No family history on file Level of Service:97813 [place] OFFICE/OUTPATIENT ESTABLISHED MOD MDM 30 MIN Reason for Visit and Comments: Follow-up [087088] - Pt is c/o neck pain that started back in 02/2023. She has had two regimens of steroids, last dose was on this past Monday night. Denies any injury. Denies any pain at this time. [facility] Office Visiton 04-10-2023 Follow-up visit [id number] Una Gomez 1940 F Date Provider Department Center 04/10/2023 [facility]BERTHA [facility] No family history on file Level of Service:82370 [place] OFFICE/OUTPATIENT ESTABLISHED LOW MDM 20 MIN Reason for Visit and Comments: Pain [136] Pain [136] Normal [facility] Ambulatory Visit Summaryon 0 03-21-2023 Ambulatory Visit Summary UNA GOMEZ :1940 Visit Date:03/21/2023 Ambulatory Visit Instructions Your Diagnosis Hypothyroidism Hypercholesterolemia Primary hypertension BMI 29.0-29.9,adult Over weight Nonsmoker Post-poliomyelitis muscular atrophy Shoulder pain, right Osteopenia Your Care Team Attending Physician - Yaniv De La Garza MD Primary Care Physician - Yaniv De La Garza MD This Is Your Medications List candesartan (Atacand 4 mg Tab) celecoxib (celecoxib 200 mg Cap) digoxin (digoxin 125 mcg (0.125 mg) Tab) levothyroxine (levothyroxine 50 mcg (0.05 mg) Tab) metoprolol (metoprolol 25 mg ER Tab) montelukast (montelukast 10 mg Tab) predniSONE (predniSONE 20 mg Tab) spironolactone (spironolactone 25 mg Tab) Contact prescribing physician if questions or concerns acetaminophen (Tylenol Extra Strength) albuterol (ProAir HFA) aspirin budesonide-formoterol (Symbicort) calcium carbonate (Tums) meclizine (meclizine 25 mg Tab) multivitamin with minerals (ICaps AREDS 2) Procedures Performed Cataracts, Cholecystectomy, Shoulder replacement. Discharge Vitals Temperature (Temporal Artery) 35.9 ?C Heart Rate (Peripheral) 80 Respiratory Rate 16 Blood Pressure 122/70 Height 148 cm Height 58 in Weight 64.0 kg Weight 140.8 lb BMI 29.22 What to do next Scheduled Follow-Up Appointments 2023 11:00 AM EDT With: Where: [facility] Normal [address] [id number] \.br\ Medications\.br\ What How Much When Why Instructions\.br\ New predniSONE (predniSONE 20 mg Tab) 1 Tablets By Mouth Every day Hypothyroidism Hypercholesterolemia Primary hypertension BMI 29.0-29.9,adult Over weight Nonsmoker Post-poliomyelitis muscular atrophy Duration: 5 Days Pickup at [facility]/pharmacy #[id number]\.br\ Changed metoprolol (metoprolol 25 mg ER Tab) 1 Tablets By Mouth At bedtime Pickup at [facility]/pharmacy #[id number]\.br\ Changed spironolactone (spironolactone 25 mg Tab) 1 Tablets By Mouth Every day Pickup at [facility]/pharmacy #[id number]\.br\ Unchanged candesartan (Atacand 4 mg Tab) 1 Tablets By Mouth Every day Pickup at [facility]/pharmacy #[id number]\.br\ Unchanged celecoxib (celecoxib 200 mg Cap) 1 Capsules By Mouth 2 times a day as needed for pain Pickup at [facility]/pharmacy #[id number]\.br\ Unchanged digoxin (digoxin 125 mcg (0.125 mg) Tab) 1 Tablets By Mouth Every day Duration: 90 Days Pickup at [facility]/pharmacy #[id number]\.br\ Unchanged levothyroxine (levothyroxine 50 mcg (0.05 mg) Tab) 1 Tablets By Mouth Every day Pickup at [facility]/pharmacy #[id number]\.br\ Unchanged montelukast (montelukast 10 mg Tab) 1 Tablets By Mouth Every day Pickup at [facility]/pharmacy #[id number]\.br\ Unchanged acetaminophen (Tylenol Extra Strength) 500 Milligram By Mouth 2 times a day as needed for as needed for pain Contact prescribing physician if questions or concerns \.br\ Unchanged albuterol (ProAir HFA) Inhalation Every 6 hours as needed for Wheezing Contact prescribing physician if questions or concerns \.br\ Unchanged aspirin 81 Milligram By Mouth Every day Contact prescribing physician if questions or concerns \.br\ Unchanged budesonide-formoterol (Symbicort) 80/4.5 Inhalation 2 times a day Contact prescribing physician if questions or concerns \.br\ Unchanged calcium carbonate (Tums) Chewed Every day Contact prescribing physician if questions or concerns \.br\ Unchanged meclizine (meclizine 25 mg Tab) 1 Tablets By Mouth Every 8 hours as needed for dizziness Contact prescribing physician if questions or concerns \.br\ Unchanged multivitamin with minerals (ICaps AREDS 2) See instructions take 2 orally daily Contact prescribing physician if questions or concerns \.br\ Pharmacy Information\.br\ [facility]/pharmacy #[id number]: [address], [place] [id number] [phone]\.br\ Allergies\.br\ Augmentin (Unknown)\.br\ Diflucan (Unknown)\.br\ sulfa drugs (Unknown)\.br\ traMADol (Unknown)\.br\ Problems\.br\ Ongoing - Any problem that you are currently receiving treatment for.\.br\ Asthma\.br\ Cervical spondylosis\.br\ Diverticular disease\.br\ Foot drop\.br\ Hypercholesterolemia\ .br\ Hypothyroidism\.br\ Lumbar spondylosis\.br\ Murmur\.br\ Nasal congestion\.br\ Non-seasonal allergic rhinitis due to pollen\.br\ Osteoarthritis of hip\.br\ Osteopenia\.br\ Over weight\.br\ Post-poliomyelitis muscular atrophy\.br\ Primary hypertension\.br\ Restless legs syndrome\.br\ Right upper quadrant pain\.br\ Shoulder pain, right\.br\ Squamous cell carcinoma in situ\.br\ Steatosis of liver\.br\ Thoracic spondylosis\.br\ Patient Survey\.br\ You may receive a survey via text or e-mail asking about your office visit. Please share your experience with us by completing your survey. We appreciate your feedback and thank you for choosing us for your care.\.br\ Education Materials\.br\ BMI for Adults\.br\ What is BMI?\.br\ Body mass index (BMI) is a number that is calculated from a person's weight and height. BMI can help estimate how much of a person's weight is composed of fat. BMI does not measure body fat directly. Rather, it is an alternative to procedures that directly measure body fat, which can be difficult and expensive.\.br\ BMI can help identify people who may be at higher risk for certain medical problems.\.br\ What are BMI measurements used for?\.br\ BMI is used as a screening tool to identify possible weight problems. It helps determine whether a person is obese, overweight, a healthy weight, or underweight.\.br\ BMI is useful for:\.br\ ? \.br\ Identifying a weight problem that may be related to a medical condition or may increase the risk for medical problems.\.br\ ? \.br\ Promoting changes, such as changes in diet and exercise, to help reach a healthy weight. BMI screening can be repeated to see if these changes are working.\.br\ How is BMI calculated?\.br\ BMI involves measuring your weight in relation to your height. Both height and weight are measured, and the BMI is calculated from those numbers. This can be done either in [place] or metric measurements. Note that charts and online BMI calculators are available to help you find your BMI quickly and easily without having to do these calculations yourself.\.br\ To calculate your BMI in [place] measurements:\.br\ \.br\ 1. \.br\ Measure your weight in pounds (lb).\.br\ 2. \.br\ Multiply the number of pounds by 703.\.br\ ? \.br\ For example, for a person who weighs 180 lb, multiply that number by 703, which equals 126,540.\.br\ 3. \.br\ Measure your height in inches. Then multiply that number by itself to get a measurement called inches squared. \.br\ ? \.br\ For example, for a person who is 70 inches tall, the inches squared measurement is 70 inches x 70 inches, which equals 4,900 inches squared.\.br\ 4. \.br\ Divide the total from step 2 (number of lb x 703) by the total from step 3 (inches squared): 126,540 ? 4,900 = 25.8. This is your BMI.\.br\ To calculate your BMI in metric measurements:\.br\ 1. \.br\ Measure your weight in kilograms (kg).\.br\ 2. \.br\ Measure your height in meters (m). Then multiply that number by itself to get a measurement called meters squared. \.br\ ? \.br\ For example, for a person who is 1.75 m tall, the meters squared measurement is 1.75 m x 1.75 m, which is equal to 3.1 meters squared.\.br\ 3. \.br\ Divide the number of kilograms (your weight) by the meters squared number. In this example: 70 ? 3.1 = 22.6. This is your BMI.\.br\ What do the results mean?\.br\ BMI charts are used to identify whether you are underweight, normal weight, overweight, or obese. The following guidelines will be used:\.br\ ? \.br\ Underweight: BMI less than 18.5.\.br\ ? \.br\ Normal weight: BMI between 18.5 and 24.9.\.br\ ? \.br\ Overweight: BMI between 25 and 29.9.\.br\ ? \.br\ Obese: BMI of 30 or above.\.br\ Keep these notes in mind:\.br\ ? \.br\ Weight includes both fat and muscle, so someone with a muscular build, such as an athlete, may have a BMI that is higher than 24.9. In cases like these, BMI is not an accurate measure of body fat.\.br\ ? \.br\ To determine if excess body fat is the cause of a BMI of 25 or higher, further assessments may need to be done by a health care provider.\.br\ ? \.br\ BMI is usually interpreted in the same way for men and women.\.br\ Where to find more information\.br\ For more information about BMI, including tools to quickly calculate your BMI, go to these websites:\.br\ ? \.br\ Centers for Disease Control and Prevention: www.cdc.gov\.br\ ? \.br\ [place] Heart Association: www.heart.org\.br\ ? \.br\ National Heart, Lung, and Blood [place]: www.nhlbi.nih.gov\.br \ Summary\.br\ ? \.br\ Body mass index (BMI) is a number that is calculated from a person's weight and height.\.br\ ? \.br\ BMI may help estimate how much of a person's weight is composed of fat. BMI can help identify those who may be at higher risk for certain medical problems.\.br\ ? \.br\ BMI can be measured aline Saucedo [facility] Family Medicine Office/Clini c Jaylene 03-21-2023 Family Medicine Office/Clinic Note HPI Staff Una is an 82 year old female presenting for 6 month follow up cholesterol, thyroid, htn Patient is here for follow up on hyperlipidemia: Do you have side effects from the medication? not on any meds for cholesterol Refill needed?:n/a _ Yearly Lipid labs: 09/09/22 Patient is here for follow up on Thyroid Disease. Do you have any of the following symptoms? Change in energy level? no Weight change? no Heat/cold intolerance? yesgets quite hot, sleeps with just a sheet still having hot flashes Hair/skin/nail changes? no Change in bowels? no Last TSH: TSH: 1.42 mcIU/mL (09/09/22 10:14:00) Patient is here for follow up on hypertension. How often are you checking your blood pressure? Doesnt check BP at home What are your average readings? N/A, Not checking at home Yearly BMP:09/09/22 flu: UTD questions/concerns: needs all meds refilled with new insurance can use [facility] ( not the symbicort, [facility] refills that) Acute thinks she did something to her right shoulder, having neck pain and by bedtime it really hurts, has used heating pad at night for several nights til it calms down, the shoulder does hurt some, only thing she did was sleep on her right side and had pressure on it from sleeping, can't think of anything else that would of caused this ( did have both shoulders replaced) History of Present Illness The patient is a 73-year-old female who presents for evaluation of multiple medical concerns. Her shoulder does not hurt constantly, but as the day goes, she gets pain in her neck. By nighttime, it is very painful and she has trouble going to sleep. She was up with a hot pad on it last night. She likes to sleep on her right side, but she went too far over and must have done something to her shoulder. Her shoulder and neck also hurt. Her neck pain has been going on for a month or so. She has used prednisone in the past. She denies any issues with her thyroid. She is doing well on her medications. She denies any issues with her cholesterol. She denies any history of stroke or heart attack. She has rheumatoid arthritis. She has not had labs done since she had a wellness check last fall. Supplemental Information She had polio in 1945. She had a reverse shoulder surgery by Dr. Arriaza at the [facility]. She never had any pain after the surgery. Review of Systems PHQ Score Initial Depression Screen Score: 1 SCORE Physical Exam Vitals & Measurements T: 35.9 ?C(Temporal Artery) HR: 80(Peripheral) RR: 16 BP: 122/70 SpO2: 97% HT: 58 in HT: 148 cm WT: 64.0 kg WT: 140.8 lb BMI: 29.22 General: alert, no acute distress ENMT: oral mucosa moist, Cardiovascular: regular rate and rhythm, normal peripheral perfusion Respiratory: Lungs CTA, respirations non labored Extremities: no deformity, no trauma Neurological: oriented x 4, LOC appropriate for age, CN II-XII intact, motor strength equal & normal bilaterally, speech normal Abdomen: Soft, Nontender, Non-distended, + BS Assessment/Plan 1. Hypothyroidism (E03.9: Hypothyroidism, unspecified) - At goal. - Continue with meds as before - Refilled today Ordered: predniSONE, 20 mg = 1 tab(s), Oral, Daily, X 5 day(s), # 5 tab(s), Refills(s) 0, Pharmacy: [facility]/pharmacy #[id number], 148, cm, 03/21/23 8:51:00 EST, Height/Length Dosing, 64, kg, 03/21/23 8:51:00 EST, Weight Dosing Body Mass Index (BMI) documented 3008F Current tobacco non-user 1036F Depression Screening Negative 3352F Influenza immunization administered or previously received 4274F Most recent diastolic blood pressure <80 mm Hg 3078F Patient screen for fall risk: no falls in last year or 1 fall with no injury in last year 1101F Systolic BP <130 mm Hg (Most Recent) 3074F 2. Hypercholesterolemia (E78.00: Pure hypercholesterolemia, unspecified) - Not on cholesterol meds - Cholesterol is at goal Ordered: predniSONE, 20 mg = 1 tab(s), Oral, Daily, X 5 day(s), # 5 tab(s), Refills(s) 0, Pharmacy: [facility]/pharmacy #[id number], 148, cm, 03/21/23 8:51:00 EST, Height/Length Dosing, 64, kg, 03/21/23 8:51:00 EST, Weight Dosing Body Mass Index (BMI) documented 3008F Current tobacco non-user 1036F Depression Screening Negative 3352F Influenza immunization administered or previously received 4274F Most recent diastolic blood pressure <80 mm Hg 3078F Patient screen for fall risk: no falls in last year or 1 fall with no injury in last year 1101F Systolic BP <130 mm Hg (Most Recent) 3074F 3. Primary hypertension (I10: Essential (primary) hypertension) - At goal today - Will refill meds Ordered: predniSONE, 20 mg = 1 tab(s), Oral, Daily, X 5 day(s), # 5 tab(s), Refills(s) 0, Pharmacy: [facility]/pharmacy #[id number], 148, cm, 03/21/23 8:51:00 EST, Height/Length Dosing, 64, kg, 03/21/23 8:51:00 EST, Weight Dosing Body Mass Index (BMI) documented 3008F Current tobacco non-user 1036F Depression Screening Negative 3352F Influenza immunization administered or previously received 4274F Most r (more content not included)... Normal [facility] Comment on above: Result Comment: Elec tronically Signed By: Francisco BELTRAN, Yaniv Sanabria.br\Date and Time Signed: 03/21/23 09:18 EST Patient Educationon 03-21-19 Patient Education Nutrition BMI for Adults What is BMI? Body mass index (BMI) is a number that is calculated from a person's weight and height. BMI can help estimate how much of a person's weight is composed of fat. BMI does not measure body fat directly. Rather, it is an alternative to procedures that directly measure body fat, which can be difficult and expensive. BMI can help identify people who may be at higher risk for certain medical problems. What are BMI measurements used for? BMI is used as a screening tool to identify possible weight problems. It helps determine whether a person is obese, overweight, a healthy weight, or underweight. BMI is useful for: ? Identifying a weight problem that may be related to a medical condition or may increase the risk for medical problems. ? Promoting changes, such as changes in diet and exercise, to help reach a healthy weight. BMI screening can be repeated to see if these changes are working. How is BMI calculated? BMI involves measuring your weight in relation to your height. Both height and weight are measured, and the BMI is calculated from those numbers. This can be done either in [place] or metric measurements. Note that charts and online BMI calculators are available to help you find your BMI quickly and easily without having to do these calculations yourself. To calculate your BMI in [place] measurements: 1. Measure your weight in pounds (lb). 2. Multiply the number of pounds by 703. ? For example, for a person who weighs 180 lb, multiply that number by 703, which equals 126,540. 3. Measure your height in inches. Then multiply that number by itself to get a measurement called inches squared. ? For example, for a person who is 70 inches tall, the inches squared measurement is 70 inches x 70 inches, which equals 4,900 inches squared. 4. Divide the total from step 2 (number of lb x 703) by the total from step 3 (inches squared): 126,540 ? 4,900 = 25.8. This is your BMI. To calculate your BMI in metric measurements: 1. Measure your weight in kilograms (kg). 2. Measure your height in meters (m). Then multiply that number by itself to get a measurement called meters squared. ? For example, for a person who is 1.75 m tall, the meters squared measurement is 1.75 m x 1.75 m, which is equal to 3.1 meters squared. 3. Divide the number of kilograms (your weight) by the meters squared number. In this example: 70 ? 3.1 = 22.6. This is your BMI. What do the results mean? BMI charts are used to identify whether you are underweight, normal weight, overweight, or obese. The following guidelines will be used: ? Underweight: BMI less than 18.5. ? Normal weight: BMI between 18.5 and 24.9. ? Overweight: BMI between 25 and 29.9. ? Obese: BMI of 30 or above. Keep these notes in mind: ? Weight includes both fat and muscle, so someone with a muscular build, such as an athlete, may have a BMI that is higher than 24.9. In cases like these, BMI is not an accurate measure of body fat. ? To determine if excess body fat is the cause of a BMI of 25 or higher, further assessments may need to be done by a health care provider. ? BMI is usually interpreted in the same way for men and women. Where to find more information For more information about BMI, including tools to quickly calculate your BMI, go to these websites: ? Centers for Disease Control and Prevention: www.cdc.gov ? [place] Heart Association: www.heart.org ? National Heart, Lung, and Blood [place]: www.nhlbi.nih.gov Summary ? Body mass index (BMI) is a number that is calculated from a person's weight and height. ? BMI may help estimate how much of a person's weight is composed of fat. BMI can help identify those who may be at higher risk for certain medical problems. ? BMI can be measured using [place] measurements or metric measurements. ? BMI charts are used to identify whether you are underweight, normal weight, overweight, or obese. This information is not intended to replace advice given to you by your health care provider. Make sure you discuss any questions you have with your health care provider. Document Revised: 11/13/2019 Document Reviewed: 09/20/2019 [employer] Patient Education ? 2022 [employer]. [facility] Retail - Clinical Noteon Retail - Clinical Note [id number]#1 .00TIFF [facility] Ambulatory Visit Summaryon 1 Ambulatory Visit Summary GERI UNA S :1940 Visit Date:03/03/2023 Ambulatory Visit Instructions Your [...] With: Yaniv De La Garza MD Where: [facility] Normal [address] [place] [address] \.br\ Medications\.br\ What How Much When Instructions\.br\ Unchanged acetaminophen (Tylenol Extra Strength) 500 Milligram By Mouth 2 times a day as needed for as needed for pain\.br\ Unchanged albuterol (ProAir HFA) Inhalation Every 6 hours as needed for Wheezing\.br\ Unchanged aspirin 81 Milligram By Mouth Every day\.br\ Unchanged budesonide-formoterol (Symbicort) 80/4.5 Inhalation 2 times a day\.br\ [...] Asthma\.br\ Cervical spondylosis\.br\ Diverticular disease\.br\ Foot drop\.br\ Hypercholesterolemia\ .br\ Hypothyroidism\.br\ Labyrinthitis\.br\ Lumbar spondylosis\.br\ Murmur\.br\ Non-seasonal allergic rhinitis due to pollen\.br\ Osteoarthritis of hip\.br\ Osteopenia\.br\ Over weight\.br\ Post-poliomyelitis muscular atrophy\.br\ Primary hypertension\.br\ Restless legs syndrome\.br\ Right upper quadrant pain\.br\ Squamous cell carcinoma in situ\.br\ Steatosis of liver\.br\ Thoracic spondylosis\.br\ Patient Survey\.br\ You may receive a survey via text or e-mail asking about your office visit. Please share your experience with us by completing your survey. We appreciate your feedback and thank you for choosing us for your care.\.br\ \.br\ [facility] Family Medicine Office/Clini c Noteon 03-03-2023 Family [...] # 6 tab(s), Refills(s) 0, [id number], 148, cm, 03/03/23 13:51:00 EST, Height/Length Dosing, 64.1, kg, 03/03/23 13:51:00 EST, Weight Dosing benzonatate, 200 mg = 1 cap(s), Oral, TID, X 7 day(s), # 21 cap(s), Refills(s) 0, [id number], 148, cm, 03/03/23 13:51:00 EST, Height/Length Dosing, 64.1, kg, 03/03/23 13:51:00 EST, Weight Dosing 4. Non-smoker (Z78.9: Other specified health status) continue not smoking Ordered: azithromycin, = 1 packet(s), Oral, As Directed, as directed on package labeling, X 5 day(s), # 6 tab(s), Refills(s) 0, Pharmacy: [facility] #[id number], 148, cm, 03/03/23 13:51:00 EST, Height/Length Dosing, 64.1, kg, 03/03/23 13:51:00 EST, Weight Dosing benzonatate, 200 mg = 1 cap(s), Oral, TID, X 7 day(s), # 21 cap(s), Refills(s) 0, Pharmacy: [facility] #[id number], 148, cm, 03/03/23 13:51:00 EST, Height/Length Dosing, 64.1, kg, 03/03/23 13:51:00 EST, Weight Dosing 5. Cerumen impaction (H61.20: Impacted cerumen, unspecified ear) pt encouraged to get debrox ear drops and use for 1 week then make nurse visit appointment for irrigation Orders: methylPREDNISolone, = 1 packet(s), Oral, Once, as directed on package labeling, # 21 tab(s), Refills(s) 0, Pharmacy: [facility] #[id number], 148, cm, 03/03/23 13:51:00 EST, Height/Length [...] metoprolol 25 m (more content not included)... [facility] Comment on above: Result Comment: Elec tronically Signed By: Marlee Martinez\.br\Date and Time Signed: 03/03/23 15:50 EST Consultation Noteon 12-28-19 Consultation Note [id number]#1 .00TIFF [facility] Immunization Recordson 12-20 Immunization Records [id number]#1 .00TIFF [facility] Discharge Note - PTon 2022 Discharge Note - PT [id number]#1 .00TIFF [facility] Plan of Care - PT/OT/Speecho n 11-28-2022 Plan of Care - PT/OT/Speech [id number] .00CD:127 Normal [facility] Office Visiton 10-20-2022 Follow-up visit [id number] Una Gomez 1940 F Date Provider Department Center 10/20/2022 [id number]-MNOERKNVLSHAHBAZ SCHULT[facility] C[facility] No family history on file Level of Service:38287 [place] OFFICE/OUTPATIENT ESTABLISHED LOW MDM 20-29 MIN Reason for Visit and Comments: Follow-up [697591] - Yearly follow up - go over echo results Normal [facility] Physician Referralon 023 Physician Referral [id number]#1. 00CD:127 Normal [facility] Discharge Note - PTon 2022 Discharge Note - PT [id number] .00CD:127 Normal [facility] Dexa Scanson 09-27-2022 Dexa Scans [id number] .00CD:127 Normal [facility] Dexa Scanson 09-26-2022 Dexa Scans [id number] .00CD:127 Normal [facility] Family Medicine Office/Clini c Noteon 09-22-2022 Family [...] to see what (more content not included)... Normal [facility] Comment on above: Result Comment: Elec tronically Signed By: Francisco BELTRAN, Yaniv Pope\.br\Date and Time Signed: 09/22/22 12:58 EDT\.br\Electronically Co-Signed By: Anneliese Anguiano\.br\Date and Time Co-Signed: 09/19/22 12:41 EDT\.br\Electronically Co-Signed By: Anneliese Anguiano\.br\Date and Time Co-Signed: 09/19/22 12:42 EDT Physician Referralon 023 Physician Referral [id number]#1 .00CD:127 Normal [facility] RAD - Ultrasound Reporton RAD - Ultrasound Report [id number]#1 .00CD:127 Normal [facility] Consenton 09-19-2022 Consent [id number] .00CD:127 Normal [facility] PT - Progress Noteson 2022 PT - Progress Notes [id number] .00CD:127 Normal [facility] Family Medicine Office/Clini c Noteon 09-16-2022 Family [...] and rotates around to the front in [facility] area Intensity:06/13 Onset: Mon woke this way [...] abdominal ultrasound as well. order faxed to [facility] Ordered: methylPREDNISolone, = 1 packet(s), Oral, As Directed, as directed on package labeling, X 6 day(s), # 21 tab(s), Refills(s) 0, Pharmacy: [facility]/pharmacy #[id number], 148, cm, 09/16/22 15:05:00 EDT, Height/Length Dosing, 63.3, kg, 09/16/22 15:05:00 EDT, Weight Dosing 2. BMI 28.0-28.9,adult (Z68.28: Body mass index [BMI] 28.0-28.9, adult) BMI education complete Ordered: methylPREDNISolone, = 1 packet(s), Oral, As Directed, as directed on package labeling, X 6 day(s), # 21 tab(s), Refills(s) 0, Pharmacy: [facility]/pharmacy #[id number], 148, cm, 09/16/22 15:05:00 EDT, Height/Length [...] day(s), # 21 tab(s), Refills(s) 0, Pharmacy: [facility]/pharmacy #6177, 148, cm, 09/16/22 15:05:00 EDT, Height/Length [...] Inhalation, q6 (more content not included)... Normal [facility] Comment on above: Result Comment: Elec tronically Signed By: Marlee Martinez\.br\Date and Time Signed: 09/16/22 15:30 EDT Consultation Noteon 09-13-19 Consultation Note [id number]#1 .00CD:127 Normal [facility] CHEMISTRYOrdered By: SYSTEM SYSTEM on 09-09-2022 Albumin [Mass/Vol] 4.4 g/dL Normal 3.3 - 5.0 gm/dL [facility] Remisol Albumin/Globulin [Mass ratio] 1.6 {ratio} Normal [...] 96 mg/dL Normal 55 - 199 mg/dL [facility] Remisol Potassium [Moles/Vol] 4.1 mmol/L Normal 3.5 - 5.3 mmol/L [facility] Remisol Protein [Mass/Vol] 7.2 g/dL Normal 6.0 - 7.8 gm/dL [facility] Remisol Sodium [Moles/Vol] 138 mmol/L Normal 135 - 145 mmol/L [facility] Remisol Triglyceride [Mass/Vol] 151 mg/dL High <=149mg/dL [facility] Remisol TSH Qn 1.42 m[IU]/L Normal 0.34 - 5.60 mcIU/mL [facility] Remisol Urea nitrogen [Mass/Vol] 13 mg/dL Normal 5 - 21 mg/dL [facility] Remisol Urea nitrogen/Creatini ne [Mass ratio] 16 mg/mg Normal 10 - 20 [facility] Remisol CMPon 09-09-2022 Albumin [Mass/Vol] 4.4 g/dL Normal 3.3-5.0 [facility] Comment on above: Performed By: #### 2 100571, [id number], 9459387, 50306931 ####[facility] [address] [place] [address] Albumin/Globulin (S) [Mass conc ratio] 1.6 Normal 1.1-2.2 [facility] Comment on above: Performed By: #### 2 644358, [id number], 1333330, 57421470 ####[facility] [address] [place] [address] ALP [Catalytic activity/Vol] 77 Int._Unit/L Normal 21-98 [facility] Comment on above: Performed By: #### 2 364374, 13577207, 8997725, 25506531 ####[facility] [address] [place] [address] ALT No additional P-5'-P [Catalytic activity/Vol] 20 Int._Unit/L Normal 6-46 [facility] Comment on above: Performed By: #### 2 616999, 55008552, 3621337, 70280911 ####[facility] [address] [place] [address] Anion gap [Moles/Vol] 12 mmol/L Normal 6-16 [facility] Comment on above: Performed By: #### 2 770657, 25705513, 4169536, 52490444 ####[facility] [address] [place] [address] AST [Catalytic activity/Vol] 25 Int._Unit/L Normal 5-43 [facility] Comment on above: Performed By: #### 2 620451, 79423238, 4937441, 69630114 ####[facility] [address] [place] [facility] [place] [address] Bilirubin [Mass/Vol] 1.1 mg/dL Normal 0.0-1.1 [facility] Comment on above: Performed By: #### 2 080403, 91266163, 5895491, 31859633 ####[facility] [address] [place] [address] Calcium [Mass/Vol] 9.4 mg/dL Normal 8.9-11.1 [facility] Comment on above: Performed By: #### 2 215081, 57443595, 5991565, 85760601 ####[facility] [address] [place] [address] Chloride [Moles/Vol] 104 mmol/L Normal 101-111 [facility] Comment on above: Performed By: #### 2 982622, 18671412, 2554086, 08905695 ####[facility] [address] [place] [address] CO2 [Moles/Vol] 26 mmol/L Normal 21-31 [facility] Comment on above: Performed By: #### 2 274836, 61108337, 0445060, 22295202 ####[facility] [address] [place] [address] Creatinine [Mass/Vol] 0.8 mg/dL Normal 0.5-1.3 [facility] Comment on above: Performed By: #### 2 644937, 72528320, 6938817, 37542944 ####[facility] [address] [place] [address] Globulin (S) [Mass/Vol] 2.8 g/dL Normal 1.4-4.0 [facility] Comment on above: Performed By: #### 2 467871, 60275998, 9978373, 56694809 ####[facility] [address] [place] [address] Glucose [Mass/Vol] 96 mg/dL Normal 55-199 [facility] Comment on above: Result Comment: If t his glucose result represents a fasting glucose, interpretation should refer to the following reference range: 55-99 mg/dL Performed By: #### 2 526276, 19074756, 5268647, 79546521 ####[facility] [address] [place] [address] Potassium [Moles/Vol] 4.1 mmol/L Normal 3.5-5.3 [facility] Comment on above: Performed By: #### 2 945880, 46332103, 0794131, 15217628 ####[facility] [address] [place] [address] Protein [Mass/Vol] 7.2 g/dL Normal 6.0-7.8 [facility] Comment on above: Performed By: #### 2 849335, 53313113, 5235537, 04665077 ####[facility] [address] [place] [address] Sodium [Moles/Vol] 138 mmol/L Normal 135-145 [facility] Comment on above: Performed By: #### 2 108957, 19498443, 9674189, 80742015 ####[facility] [address] [place] [address] Urea nitrogen [Mass/Vol] 13 mg/dL Normal 5-21 [facility] Comment on above: Performed By: #### 2 849710, 04650282, 5880096, 67885150 ####[facility] [address] [place] [address] Urea nitrogen/Creatini ne [Mass ratio] 16 No Units Normal 10-20 [facility] Comment on above: Performed By: #### 2 318534, 76547437, 4150374, 25924909 ####[facility] [address] [place] [address] Lipid Panelon 09-09-2022 Cholesterol [Mass/Vol] 107 mg/dL Low 120-200 [facility] Comment on above: Performed By: #### 2 436676, 33506788, 7640169, 14896239 ####[facility] [address] [place] [address] Cholesterol in HDL [Mass/Vol] 30 mg/dL Invalid Interpretation Code [facility] Comment on above: Result Comment: HDL > or equal to 60 mg/dL: Low cardiovascular risk HDL < 40 mg/dL : High cardiovascular risk Performed By: #### 2 323118, 30445076, 6604611, 46303221 ####[facility] [address] [place] [address] Cholesterol in LDL [Mass/Vol] 60 mg/dL Normal <=129 [facility] Comment on above: Performed By: #### 2 067338, 30766767, 2017784, 86175467 ####[facility] [address] [place] [address] Cholesterol in VLDL [Mass/Vol] 30 mg/dL Normal 7-40 [facility] Comment on above: Performed By: #### 2 165633, 62230474, 3465868, 27041217 ####[facility] [address] [place] [address] Triglyceride [Mass/Vol] 151 mg/dL High <=149 [facility] Comment on above: Performed By: #### 2 823630, 07701730, 2100624, 71532164 ####[facility] [address] [place] [address] Nurse Consultation Noteon Nurse Consultation Note Physical [...] Immunizations Vaccine Date Status Comments SARS-CoV-2 (COVID-19) [id number].[id number] 02/10/2022 Recorded influenza virus vaccine, inactivated 12/27/2021 [...] 03/18/2015 Recorded influenza, whole 01/17/2005 Recorded Normal [facility] TSH With T4fr Reflexon 09-09 TSH Qn 1.42 m[IU]/L Normal 0.34-5.60 [facility] Comment on above: Performed By: #### 2 [id number], [id number], [id number], [id number] ####[facility] [address] [place] [address] eGFRon 09-09-2022 GFR/1.73 sq M.predicted among non-blacks MDRD (S/P/Bld) [Vol rate/Area] 73 mL/min/1.73 m2 Normal >=59 [facility] Comment on above: Order Comment: Order added by Discern Expert. Result Comment: Plastics Worker ivana kidney disease could be indicated at eGFR's of less than 60 mL/min/1.73m2. Kidney failure is indicated at less than 15 mL/min/1.73m2. Performed By: #### 2 [id number], [id number], [id number] ####[facility] [address] [place] [address] Ambulatory Visit Summaryon 0 09-08-2022 Ambulatory Visit [...] Appointments Monday 10:00 AM EDT With: Where: [facility] Invalid Interpretation Code [address] [place] [address]- \.br\ 2023 11:00 AM EDT \.br\ With:\.br\ Where: [facility] Family Medicine Office/Clini c Noteon 09-08-2022 Family [...] of clutter to prevent tripping and/or falling. [place] Advance Directives reviewed, patient has LW/POA at [...] scheduled: 09/09/2022 [place] with [facility] Patient denies coloscopy, states Cologuard in past [...] scan ordered today, order faxed to [facility]. 3. Osteoporosis (M81.0: Age-related osteoporosis without current pathological fracture) Patient not currently taking any medication at this time. Patient denies any issues or concerns. Also see above #2. 4. Other asthma (J45.998: Other asthma) Patient using inhalers daily as directed with effectiveness. Encouraged to remain active. Patient no longer follows converting technician, states asthma has been under good control [...] as needed (more content not included)... Normal [facility] Comment on above: Result Comment: [...] Follow these instructions at home: ? Take rjai-aue-dttusqm and prescription medicines only as told by [...] provider. Document Revised: 02/22/2022 Document Reviewed: 02/22/2022 [employer] Patient Education ? 2022 [employer]. Nutrition High Cholesterol High cholesterol is a [...] he o (more content not included)... Normal [facility] Screenson 09-08-2022 Screens [id number] .00CD:127 Normal [facility] Physician Referralon 023 Physician Referral [id number] .00CD:127 Normal [facility] Pathology Noteon 08-09-2022 Pathology Note [id number] .00CD:127 Normal [facility] Pathology Reporton Pathology Report [id number]# 1.00CD:127 Normal [facility] Nurse Consultation Noteon Nurse Consultation Note Reason [...] Immunizations Vaccine Date Status Comments SARS-CoV-2 (COVID-19) mRNAMUL.ORD![id number] 02/10/2022 Recorded influenza virus vaccine, inactivated 12/27/2021 [...] 03/18/2015 Recorded influenza, whole 01/17/2005 Recorded Normal [facility] Physician Referralon 023 Physician Referral [id number] .00CD:127 Normal [facility] Ambulatory Visit Summaryon 0 07-26-2022 [...] Appointments Monday 10:20 AM EDT With: Where: [facility] Normal [address] [place] [address]- \.br\ Medications\.br\ What How Much When Instructions\.br\ Unchanged albuterol (Proventil HFA 90 mcg/ inh [...] Asthma\.br\ Cervical spondylosis\.br\ Diverticular disease\.br\ Foot drop\.br\ Hypercholesterolemia\ .br\ Hypertension\.br\ Hypothyroid\.br\ Labyrinthitis\.br\ Lumbar spondylosis\.br\ Murmur\.br\ Osteoarthritis of hip\.br\ Osteoporosis\.br\ Over weight\.br\ Restless legs syndrome\.br\ Steatosis of liver\.br\ Thoracic spondylosis\.br\ \.br\ [facility] Medicine Office/Clini c Noteon 07-26-2022 Family Medicine [...] Immunizations Vaccine Date Status Comments SARS-CoV-2 (COVID-19) mRNAMUL.ORD![id number] 02/10/2022 Recorded influenza virus vaccine, inactivated 12/27/2021 [...] 03/18/2015 Recorded influenza, whole 01/17/2005 Recorded Normal [facility] Comment on above: Result Comment: Elec tronically Signed By: LOC BELTRAN, SHRUTHI Sharp\Date and Time Signed: 07/26/22 16:21 EDT Physician Referralon 023 Physician Referral [id number]# 1.00CD:127 Normal [facility] Family Medicine Office/Clini c Noteon [...] Immunizations Vaccine Date Status Comments SARS-CoV-2 (COVID-19) mRNAMUL.ORD![id number] 02/10/2022 Recorded influenza virus vaccine, inactivated 12/27/2021 [...] 03/04/2016 Recor (more content not included)... Normal [facility] Comment on above: Result Comment: Elec tronically Signed By: LOC BELTRAN, SHRUTHI E\.br\Date and Time Signed: 07/05/22 15:45 EDT Covid-19 PCR (CVDTB)on SARS-CoV-2 (COVID-19) RNA JESSIE+probe Ql (Unsp spec) Detected Critically abnormal NOT DETECTED [facility] Comment on above: Result Comment: This test is not yet approved or cleared by the [place] FDA. When there are no FDA-approved or cleared tests available, and other criteria are met, FDA can make tests available under an emergency access mechanism called an Emergency Use Authorization (EUA). The EUA for this test is supported by the C[employer] Lathe Operator of Health and Human Service's declaration that [...] longer be used). Performed By: #### [facility] #### [facility] [address] [address] [address] Josie Bauman ECHOCARDIO M/2D COMPLETEon 0 07-19-2021 ECHOCARDIO M/2D COMPLETE Patient: UNA GOMEZ Exam Date: 07/19/2021 : 1940 Gender:F Ordering : DR SHRUTHI MONTERROSO . Admission #: [id number] Family : Order #: [id number] CLICK HERE TO VIEW EXAM ECHOCARDIOGRAM REPORT [...] Area(A2C): 14.80 cm2 Left Atrium Systolic Volume(A2C): 45885 mm3 Mitral Valve MV E to A [...] Naylor M.D. on 07/19/2021 at 18:28 Normal [facility] KNEE LEFT 3 Son 07-16-2020 K[address] LEFT [address] [facility] Department of Radiology [address] [place] [phone] Patient Name: UNA GOMEZ : 1940 Sex: F Age: Race: White Pt. Location: 84 Patient Status: D Ordered Date: 07/16/2020 2:00:00 PM Completed Date: 07/16/2020 01:59 PM Requesting Provider: NICOLLE JAY Attending Provider: Report Copy To: Signs & Symptoms: M25.561 Pain in right knee I10 History: Mone Comments: , , , Ordering Provider - NICOLLE JAY MD , Exam: KNEE LEFT 3 [facility] KNEE LEFT 3 S 07/16/2020 1:59 PM [...] findings. Electronically signed: Trell Amado. Transcribed by: [email or web address], User Resident: TRELL AMADO Electronically Signed by: TRELL AMADO @ 07/17/2020 10:46 AM I personally read this/these film(s) with this resident Normal [facility] Comment on above: Order Comment: , , = ========= , Ordering Provider - NICOLLE JAY MD , KNEE RIGHT 3 Son KNEE RIGHT [address] [facility] Department of Radiology [address] [place] [phone] Patient Name: UNA GOMEZ : 1940 Sex: F Age: Race: White Pt. Location: Patient Status: D Ordered Date: 07/16/2020 2:00:00 PM Completed Date: 07/16/2020 01:59 PM Requesting Provider: NICOLLE JAY Attending Provider: Report Copy To: Signs & Symptoms: M25.561 Pain in right knee I10 History: Mone Comments: , , , Ordering Provider - NICOLLE JAY MD , Exam: KNEE RIGHT 3 [facility] KNEE RIGHT 3 S 07/16/2020 1:59 PM SIGNS AND [...] remodeling. Electronically signed: Trell Amado. Transcribed by: [email or web address], User Resident: TRELL AMADO Electronically Signed by: TRELL AMADO @ 07/17/2020 08:46 AM I personally read this/these film(s) with this resident Normal [facility] Comment on above: Order Comment: , , = ========= , Ordering Provider - NICOLLE JAY MD , HIPS BILATERAL 2 VWS WITH PE LVISon 07-06-2020 HIPS BILATERAL [address] [facility] Department of Radiology [address] [place] [phone] Patient Name: UNA GOMEZ : 1940 Sex: F Age: Race: White Pt. Location: 84 Patient Status: O Ordered Date: 07/06/2020 1:25:00 PM Completed Date: 07/06/2020 01:28 PM Requesting Provider: BERTHA MEZA Attending Provider: BERTHA MEZA Report Copy To: SHRUTHI MONTERROSO Signs & Symptoms: M25.551 Pain in right hip I10 History: Mone Comments: evaluate Exam: HIPS BILATERAL 2 VWS WITH PELVIS HIPS BILATERAL 2 VWS WITH PELVIS HISTORY: Hip pain. COMPARISON: None. IMPRESSION: 1. Osteopenia, no appreciable fracture. No malalignment. If there is concern for occult fracture, consider further evaluation with MRI. 2. Hip arthritis with near complete joint space narrowing, multi focal osteophytes. Sacroiliac, pubic symphyseal, and partially visualized lower lumbar spine degenerative changes. Electronically signed: Lincoln Brooke. Transcribed by: [email or web address], User Resident: Electronically Signed by: LINCOLN BROOKE @ 07/06/2020 02:[address] [facility] Comment on above: Order Comment: evalu ate Operative Reporton Operative Report MR#: [id number] [facility] Pt. Name: Una Gomez Room #: [id number] Discharge 04/15/2020 Date: Birthdate: 1940 OPERATIVE REPORT DATE OF SURGERY: 04/14/2020 SURGEON: Bertha Meza MD EMERGENCY ROOM TECHNICIAN: Bruno Schafer MD. ANESTHESIA: General with interscalene [...] osteoarthritis of the left shoulder joint with lnlm-ls-cmfh as well as severe massive retracted chronic [...] (more content not included)... Normal [facility] HEMOGLOBINon 04-14-2020 Hemoglobin (Bld) [Mass/Vol] 12.7 g/dL Normal 12.0-15.[address] [facility] Comment on above: Order Comment: No: D o not add to previous draw Performed By: #### 9 2089 #### [address] POC GLUCOSE LABon 04-14-2020 Glucose [Mass/Vol] 97 mg/dL Normal 70-[address] [facility] Comment on above: Performed By: #### 8 5499 #### [address] PORTABLE SHOULDER LEFT 2 VWS on 04-14-2020 PORTABLE SHOULDER LEFT [address] [facility] Department of Radiology [address] [place] [address] Patient Name: UNA GOMEZ : 1940 Sex: F Age: Race: White Pt. Location: [place] [address] Patient Status: I Ordered Date: 04/14/2020 5:10:00 PM Completed Date: 04/14/2020 05:37 PM Requesting Provider: BRUNO SCHAFER Attending Provider: BERTHA MEZA Report Copy To: Signs & Symptoms: Pain History: Comments: Hardware Evaluation, in PACU Exam: PORTABLE SHOULDER LEFT 2 VWS PORTABLE SHOULDER LEFT 2 S 04/14/2020 5:37 PM CLINICAL INDICATIONS: Pain TECHNOLOGIST [...] with no gross hardware failure Electronically signed: Andres Ingram. Transcribed by: [email or web address], User Resident: ANDRES INGRAM Electronically Signed by: ANDRES INGRAM @ 04/14/2020 06:12 PM I personally read this/these film(s) with this resident Normal [facility] Comment on above: Order Comment: Hardw are Evaluation, in PACU Vital Signs Date Time Vital Sign Value Performing Clinician Facility 02-07-2023 15:15-0500 Body height 149.86 cm [facility] Other [facility] Other 02-07-2023 15:15-0500 Body mass index (BMI) [Ratio] 27.87 kg/m2 Imad [facility] Other [facility] Other 02-07-2023 15:15-0500 Body weight 62.6 kg Imad Asaad Other [facility] Other 02-07-2023 15:15-0500 Diastolic blood pressure 63 mm[Hg] Imad Asaad Other [facility] Other 02-07-2023 15:15-0500 Systolic blood pressure 129 mm[Hg] Imad Asaad Other [facility] Other 12-13-2022 14:15-0400 Body height 149.86 cm Imad Asaad Other [facility] Other 12-13-2022 14:15-0400 Body mass index (BMI) [Ratio] 29.28 kg/m2 Imad Asaad Other [facility] Other 12-13-2022 14:15-0400 Body weight 65.77 kg Imad Asaad Other [facility] Other 12-13-2022 14:15-0400 Diastolic blood pressure 63 mm[Hg] Imad Asaad Other [facility] Other 12-13-2022 14:15-0400 Systolic blood pressure 140 mm[Hg] Imad Asaad Other [facility] Other Encounters Encounter Date Encounter Type Care Provider Facility Start: 09-19-2023 ambulatory MD Yaniv Chen ity:[facility] Start: 09-14-2023 ambulatory Marlee Malcolm Facility: [facility] [place] Start: 06-27-2023 ambulatory MD Yaniv De La Garza Facil ity:[facility] Start: 04-13-2023 End: 04-13-2023 ambulatory [facility] Start: 04-10-2023 End: 04-11-[address] [facility] Start: 03-22-2023 End: 03-22-2023 ambulatory OTTONIEL LOUISE Not Available Start: 03-21-2023 End: 03-22-2023 ambulatory MD Yaniv De La Garza Facility:[facility] [place] [facility] Start: 03-03-2023 End: 03-04-2023 ambulatory Marlee L Yun Facility: [facility] Start: 02-07-2023 End: 02-07-2023 ambulatory [facility]ad [facility] Other Start: 02-07-2023 Office outpatient ne w 45 minutes Imad Asaad [facility] Start: 12-27-2022 End: 12-27-2022 ambulatory Imad Asaad Facility:[facility] Start: 12-26-2022 ambulatory Joy Yen Noreenjusten Facility:[facility] Start: 12-13-2022 End: 12-13-2022 ambulatory Imad Asaad [facility] Other Start: 12-13-2022 Office outpatient ne w 45 minutes Imad Asaad [facility] Start: 10-20-2022 End: 10-20-2022 [facility] Start: 10-12-2022 ambulatory Marlee Yun Facility:[facility] Start: 09-19-2022 End: 09-20-2022 ambulatory MD Yaniv De La Garza Facility: [facility] Start: 09-16-2022 End: 09-17-2022 ambulatory Marlee L Yun Facility: [facility] Start: 09-09-2022 End: 09-10-2022 ambulatory Marlee L Yun [place] Start: 09-09-2022 End: 09-09-2022 Lab Drop off Marlee L Yun [facility] Start: 09-08-2022 End: 09-09-2022 ambulatory MD Yaniv De La Garza Facility:[facility] Start: 08-08-2022 End: 08-09-2022 ambulatory MD Yaniv De La Garza Facility:[facility] Start: 07-26-2022 End: 07-27-2022 ambulatory SHRUTHI MONTERROSO Facility:[facility] Start: 07-26-2022 End: 07-27-2022 ambulatory SHRUTHI MONTERROSO [facility] Start: 07-05-2022 End: 07-06-2022 ambulatory SHRUTHI MONTERROSO Facility:[facility] Start: 06-08-2022 End: 06-09-2022 ambulatory CASEY GARSIA Facility: Start: 03-03-2022 End: 03-04-2022 ambulatory CASEY GARSIA Facility: Start: 01-03-2022 End: 01-04-2022 ambulatory TAISHA EATON Facility:[facility] Start: 12-22-2021 End: 02-10-[address] SHRUTHI MONTERROSO . Facility:[facility] Start: 11-29-2021 End: 11-30-2021 ambulatory CASEY GARSIA Facility: Start: 09-07-2021 End: 09-07-[address] SHRUTHI MONTERROSO . Facility: Start: 08-27-2021 End: 08-28-2021 ambulatory CASEY GARSIA Facility: Start: 07-19-2021 End: 07-20-[address] SHRUTHI MONTERROSO . Facility: Start: 04-14-2020 End: 04-15-2020 Evaluation and management of inpatient SHRUTHI MONTERROSO Facility:[facility] Procedures Date Procedure Procedure Detail Performing Clinician Start: 04-15-2020 ASSISTANCE WITH RESP IRATORY VENTILATION, <24 HRS OSAMA ELATTAR Start: 04-14-2020 REPLACEMENT OF L ABIGAIL ULDER JT WITH SYNTH SUB, OPEN APPROACH OSAMA ELATTAR Start: 04-14-2020 REPOSITION LEFT UPPE R ARM TENDON, OPEN APPROACH OSAMA ELATTAR Bilateral cataracts (disorder) Marlee Yun Cholecystectomy Marlee Yun Prosthetic arthropla sty of shoulder Marlee Yun Comment on above: right 2020 Immunizations Immunization Date Immunization Notes Care Provider Fa drake 02-10-2022 SARS-CoV-2 (COVID-19 ) mRNAMUL.ORD![id number] Marlee Yun [facility] 12-27-2021 influenza virus vacc ine, unspecified formulation Marlee Yun [facility] 03-17-2021 SARS-CoV-2 (COVID-19 ) mRNA-1273 vaccine Marlee Yun [facility] Comment on above: Result Comment: 2022: [id number] 02-10-2021 influenza virus vacc ine, unspecified formulation Marlee Yun [facility] 09-11-2020 pneumococcal polysaccharide vaccine, 23 valent Marlee Yun [facility] 05-05-2020 SARS-CoV-2 (COVID-19 ) mRNA-1273 vaccine Marlee Yun [facility] 04-07-2020 SARS-CoV-2 (COVID-19 ) mRNA-1273 vaccine Marlee Yun [facility] 09-12-2019 pneumococcal conjuga te vaccine, 13 valent Marlee Yun [facility] 02-01-2019 influenza virus vacc ine, unspecified formulation Marlee Yun [facility] 01-30-2018 influenza virus vacc ine, unspecified formulation Marlee Yun [facility] 03-04-2016 influenza virus vacc ine, unspecified formulation Marlee Yun [facility] 03-18-2015 influenza virus vacc ine, unspecified formulation Marlee Ynu [facility] 01-17-2005 influenza, whole Marlee Yun [facility] Payers Date Payer Category Payer Self-pay 1961 Medicare [id number] 1940 Unknown [id number] 2.16.8 40.1.799903.3.579.2.647 1940 Unknown [id number] 2.16.84 0.1.369140.3.579.2.593 1940 Unknown [id number] 2.16.84 0.1.284283.3.579.2.593 1940 Unknown [id number] 2.16.84 0.1.939023.3.579.2.593 1940 Unknown [id number] 2.16.84 0.1.168375.3.579.2.593 1940 Unknown [id number] 2.16.84 0.1.157632.3.579.2.593 1940 Unknown [id number] 2.16.84 0.1.737318.3.579.2.593 1940 Unknown [id number] 2.16.84 0.1.044906.3.579.2.593 1940 Unknown [id number] 2.16.84 0.1.826742.3.579.2.593 1940 Unknown [id number] 2.16.84 0.1.401866.3.579.2.1259 1940 Unknown [id number] 2.16.8 40.1.988872.3.579.2.727 1940 Unknown [id number] 2.16.8 40.1.180203.3.579.2.727 1940 Unknown [id number] 2.16.8 40.1.252686.3.579.2.727 1940 Unknown [id number] 2.16.8 40.1.386031.3.579.2.727 1940 Unknown [id number] 2.16.8 40.1.423430.3.579.2.727 1940 Unknown [id number] 2.16.8 40.1.776832.3.579.2.727 1940 Unknown [id number] 2.16.8 40.1.640499.3.579.2.727 1940 Unknown [id number] 2.16.8 40.1.264508.3.579.2.727 1940 Unknown [id number] 2.16.8 40.1.948977.3.579.2.727 1940 Unknown [id number] 2.16.8 40.1.291509.3.579.2.727 1940 Unknown [id number] 2.16.8 40.1.541762.3.579.2.727 1940 Unknown [id number] 2.16.8 40.1.714858.3.579.2.727 1940 Unknown [id number] 2.16.8 40.1.254155.3.579.2.727 1940 Unknown [id number] 2.16.8 40.1.128258.3.579.2.727 1940 Unknown [id number] 2.16.8 40.1.113327.3.579.2.727 Private Health Insurance [id number] Unknown [id number] 2.16.8 40.1.154472.3.579.2.531 Social History Date Type Detail Facility Start: 09-08-2022 Tobacco smoking status Never s moked tobacco (finding) [facility] Tobacco smoking status Never [facility] Sex Assigned At Female [facility] Clinical Notes 04-22-2020 to 04-13-2023 Note Date & Type Note Facility 04-13-2023 Note Chief Complaint: nec k pain and radicular pain shoulder right arm HPI When did this problem begin: Long time Timing/frequency of occurrence: Constant Pain description: dull ache Pain severity: 10 Radicular pain: right shoulder Numbness/tingling: No Weakness: No What improves symptoms: Rest What makes symptoms worse: Activity Gait disturbance: No Fine hand dexterity problem: No Previous treatment for this problem: prednisone helped ROS Constitutional: Fatigue: No Weight loss: No Fever: No Chills: No History reviewed. No pertinent surgical history. History reviewed. No pertinent past medical history. History reviewed. No pertinent surgical history. Allergies Allergen Reactions Amoxicillin-Pot Clavulanate Unknown Fluconazole Unknown Other Reaction(s): Unknown Sulfa (Sulfonamide Antibiotics) Unknown Tramadol Unknown Other Reaction(s): Unknown Current Outpatient Medications: aspirin 81 mg EC [...] 50 mcg tablet, , Disp: , Rfl: Social History Socioeconomic History Marital status: Spouse name: Not on file Number of children: Not on file Years of education: Not on file Highest education level: Not on file Occupational History Not on file Tobacco Use Smoking status: Never Smokeless tobacco: Never Substance and Sexual Activity Alcohol use: Not Currently Drug use: Never Sexual activity: Defer Other Topics Concern Not on file Social History Narrative Not on file Social Determinants of Health Financial Resource Strain: Low Risk (04/10/2023) Overall Financial Resource Strain (CARDIA) Difficulty of Paying Living Expenses: Not hard at all Food Insecurity: Unknown (04/10/2023) Hunger Vital Sign Worried About Running Out of Food in the Last Year: Never true Ran Out of Food in the Last Year: Not on file Transportation Needs: Unknown (04/10/2023) PRAPARE - Transportation Lack of Transportation (Medical): No Lack of Transportation (Non-Medical): Not on file Physical Activity: Not on file Stress: Not on file Social Connections: Not on file Intimate Partner Violence: Not on file (04/13/2023) Housing Stability: Unknown (04/10/2023) Housing Stability Vital Sign Unable to Pay for Housing in the Last Year: Not on file Number of Places Lived in the Last Year: Not on file Unstable Housing in the Last Year: No No family history on file. Physical Exam There were no vitals taken for this visit. Musculoskeletal Ortho spine musculoskeletal examination: Alignment spine: normal Tenderness: cervical paraspinal Range of motion Cervical spine: limited Range of motion lumbar spine: normal Spurling Test: Negative Neurological Biceps strength: 5 Wrist extension: 5 Triceps strength: 5 Finger flexor: 5 Finger abduction strength: 5 Flexion at the hip strength: 5 Quadriceps strength: 5 Tibialis anterior strength: 5 Plantar flexion strength: 5 Extensor Hallicis Longus strength: 5 Sensory Exam: intact Straight leg raising: Negative Positive degrees DTR/ Pathologic reflexes Biceps reflex- 2 Brachioradialis reflex- 2 Triceps reflex- 2 Patellar reflex- 2 Achilles reflex- 2 Babinski- negative Bryan reflex: Absent Gait and station Gait: Normal Images: I, Dr. Cynthia Penn, personally reviewed the images and my personal interpretation are: x ray mutilevel cervical disc degeneration, C4-5 anterolisthesis Assessment and Plan 83 years presents with neck and right shoulder pain Explained the clinical and radiological findings with the patient and discussed management options. Recommended PT, extra strength tylenol Follow up 4-[address] [facility] 04-10-2023 Note Orthopedic Surgery Subjective Chief complaint: Chief Complaint Patient presents with Left Shoulder - Pain Right Shoulder - Pain 04/10/23 Una Gomez is a 83 y.o. year old female presenting for follow up of bilateral shoulders. She is: 3 years S/P L shoulder rTSA (DOS 04/14/2020) 3 and half years R rTSA (DOS 10/29/2019) She has been doing very well. Able to do all ADLs with no pain and has maintained good motion in the shoulder. Recently she had pain in her neck and felt it radiates down her trap ms and to the right shoulder. She is here today to make sure that nothing is wrong with the reverse shoulder replacement. Denies numbness, tingling, and weakness. ROS Constitutional: Denies Musculoskeletal: No back pain Skin: Denies any skin lesions Neurological: No tingling, numbness, weakness Patient History History reviewed. No pertinent surgical history. History reviewed. No pertinent past medical history. Objective General: Body mass index is 26.66 kg/m???. No acute distress, comfortable Respiratory: Unlabored breathing with normal rate, no cough Cardiovascular: Warm well perfused extremities Psych: Appropriate mood behavior Cardiovascular System: Right: radial pulse 2+, hand edema none, and finger capillary refill <2 seconds. Left: radial pulse 2+, ulnar pulse 2+, hand edema none, and finger capillary refill <2 seconds. Sensation: Right: axillary normal, median normal, ulnar normal, and radial normal. Left: axillary normal, median normal, ulnar normal, and radial normal. Evaluation of the Left shoulder reveals healed surgical incision, FF to 140, ER to 45,IR to back pocket Evaluation of the right shoulder reveals healed surgical incision, FF to 160, ER to 45,IR to back pocket Axillary nerve intact, and deltoid firing bilaterally Both UL are NVI + Spurling test Imaging: Bilateral shoulder X-rays, 3 views each obtained in office today 04/10/23 shows stable well aligned reverse shoulder arthroplasty components with no complications Assessment/Plan Una Gomez is a 83 y.o. year old female with neck pain and possible radiculopathy Of note she is: 3 years S/P L shoulder rTSA (DOS 04/14/2020) 3 and half years R rTSA (DOS 10/29/2019 Shoulders are doing very well.Today's X-rays reviewed. Plan Continue activities as tolerated using pain as a guide Continue shoulder HEP Will get cervical spine X-rays and have the patient see Dr. Penn for further evaluation of her cervical spine Follow up as needed The patient understands and agrees to the management plan, and all patient questions have been answered to her satisfaction. Bilateral shoulder pain, unspecified chronicity Neck pain, acute Bertha Meza MD Orthopedic Surgery, [employer] [facility] 04/10/23 [facility] 02-07-2023 Evaluation note Encounter Date Diagnosis Assessment Notes Feb, Fatty liver (ICD-10 - K76.0) Patient advised to make life style modifications -diet/exercis e/weight loss. Repeat fibroscan in 1 yr Rto 1 yr [employer] Other 10-10-2023 Evaluation note* Encounter Date Diagnosis Assessment Notes Treatment Notes Treatment Clinical Notes Dec, RUQ pain (ICD-10 - R10.11) [employer] Other 08-17-2023 NoteCardiology Clinic Note Subjective Una Gomez is a 82 y.o. [...] In 2014 she was admitted to the [facility] with shortness of breath. Her echocardiogram showed [...] bundle branch block. Pr (more content not included)...[facility]02-17-2021 NoteMR#: [id number] [facility] Pt. 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 SECONDARY DIAGNOSIS: None. HOSPITAL COURSE: The patient came to the [facility] for left reverse total shoulder arthroplasty on [...] may be an additional personal documentation from ms. Date Dict: 04/22/2020/05:42 P/Bruno Schafer MD Date Trans: 04/22/2020 06:23 P/mmo [id number] cc: Shruthi Monterroso M.D. [address] [place] [address] [facility] [id number] [facility] + [facility] note Future Appointments Appointment Date:09/19/2022 10:40:00 AM Scheduled Provider:Yaniv De La Garza MD Location:[facility] Appointment Type:FM Open Appointment Date:09/14/2023 11:00:00 AM Scheduled Provider: Location:[facility] Appointment Type: Medicare Wellness [facility] N[facility] - Reported* Type Description Date Medical History ASTHMA Medical History VERTIGO Medical History ESOPHAGEAL STRICTURE Surgical History SHOULDER REPLACEMENT Surgical History CHOLECYSTECOMY Hospitalization History SEE ABOVE [employer] Other Hospital course Narrative No data available for this section [facility] No data available for this section [facility] No data available for this section [facility] Summary Purpose Family History No Family History [...] and content) DATE CREATED AUTHOR 04/11/2021 [facility] DATE CREATED AUTHOR AUTHOR'S ORGANIZ ATION 07/07/2022 [facility] DATE CREATED AUTHOR AUTHOR'S ORGANIZ ATION 01/08/2023 [facility] DATE CREATED AUTHOR AUTHOR'S ORGANIZ ATION 03/23/2023 [facility] EPIC DATE CREATED AUTHOR AUTHOR'S ORGANIZ ATION 04/14/2023 [facility] DATE CREATED AUTHOR AUTHOR'S ORGANIZ ATION 06/27/2023 [facility] Patient Care team informatio n (unrecognized section and content) Personnel Name: Francisco BELTRAN, Yaniv Pope Address: Address: [address] [place] [address]- REASON FOR VISIT (unrecogniz ed section and content) [facility] FOR [...] BE BASED ON THE PRIMARY CLINICAL RECORDS. [employer] provides no warranty or guarantee of the accuracy or completeness of information in this document.
--- NOTE | 2023-06-29 09:44 | XR_ITS ---
The [address] [address] Patient Name: BOB NEVAREZ MRN: [id number] date: 1940 Sex: F Assigned Patient Location: [facility] Current Patient Location: Accession/Order Number: [id number] Exam Date: 06/29/2023 10:03 Report Date: 06/30/2023 05:47 At the request of: SREEKANTH DE LA GARZA Procedure: XR knee LT 4V PROCEDURE: XR knee LT 4V HISTORY: Left Knee Pain ; chronic medial left knee pain increasing in severity COMPARISON: XR knee left 08/05/2022 FINDINGS: BONES:Narrowing of the anterior and medial joint spaces with large periarticular degenerative osteophytes. No fracture, dislocation, bone lesion. SOFT TISSUES:No visible soft tissue swelling. EFFUSION:None visible. OTHER: Negative. XR/XR knee LT 4V IMPRESSION: 1. 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 No appreciable progression. Electronically authenticated by: LANE HERBERT Date: 06/30/2023 05:47
== END 2023-06-29 09:34 | disposition home or self-care (01) ==
LOC: RAD 09:35
PROVIDERS: PCP Family Medicine; Visit Provider Family Medicine
DX: M25.562 Pain in left knee (principal); M17.12 Unilateral primary osteoarthritis, left knee
CPT/HCPCS: 73564

== ENCOUNTER 2023-10-03 09:51 | Outpatient (RCR) | payer MEDICARE, SELFPAY | END 2023-11-04 08:15 | disposition home or self-care (01) | LOC: PT 09:51 | PROVIDERS: PCP Family Medicine; Visit Provider Family Medicine | DX: M54.32 Sciatica, left side (principal); H83.09 Labyrinthitis, unspecified ear; M85.80 Other specified disorders of bone density and structure, unspecified site ==

== ENCOUNTER 2023-10-04 16:11 | Outpatient (OUT) | payer MEDICARE, SELFPAY ==
--- OUTSIDE RECORDS SUMMARY | 2023-10-04 16:15 | XMS_ITS | CCD ---
Author Organization [facility] Care Team Providers Care Community Health Nurse Name Role Phone SHRUTHI MONTERROSO Primary Care Unavailable SHRUTHI MONTERROSO Referring Unavailable ELATTAR, OSAMA Admitting Unavailable ELATTAR, OSAMA Attending Unavailable PA Procedure Practitioner Unavailab le ALEXIS MEZAMA Surgeon Unavailable CASEY GARSIA Attending Unavailable CASEY [...] Yaniv De La Garza. Primary Care Physician [phone] Asaad, Imad Unavailable Asaad, Imad Admitting Unavailable Clintad, Imad Attending Unavailable Yaniv De La Garza Primary Care Unavailable ELATTAR, OSAMA Attending Unavailable ELATTAR, OSAMA Referring Unavailable ELATTAR, OSAMA Referring Unavailable ELATTAR, OSAMA Referring Unavailable SHAHBAZ SCHULTZ Attending Unavailable CYNTHIA PENN Attending Unavailable BERTHA MEZA Referring Unavailable OTTONIEL LOUISE Attending Unavailable OTTONIEL LOUISE Attending Unavailable OTTONIEL LOUISE Attending Unavailable Yaniv De La Garza Attending Unavailable LEA WALLACE Attending Unavailable Yaniv De La Garza Attending Unavailable Yaniv De La Garza Attending Unavailable Marlee Malcolm Attending Unavailable Yaniv De La Garza Attending Unavailable Marlee Malcolm Attending Unavailable Yaniv De La Garza Attending Unavailable Yaniv De La Garza Admitting Unavailable Yaniv De La Garza Attending Unavailable Yaniv De La Garza Referring Unavailable Joy Harper Attending Unavaila Yaniv Marshall Attending Unavailable Yaniv De La Garza Attending Unavailable MD Yaniv De La Garza Admitting Unavailable MD Yaniv De LaG arza Attending Unavailable MD Yaniv De La Garza Attending Unavailable Allergies Allergy Classification Reported Allergen(s) Allergy Type Date of Onset Reaction(s) Facility (1 source) Hicks powder; Translations: [hicks powder] Propensity to adverse reactions (disorder) 1 [facility] (1 source) eggplant extract Drug Allergy 1 [facility] (3 sources) Sulfonamides (Antibiotic); Translations: [SULFA (SULFONAMIDE ANTIBIOTICS)] Propensity to adverse reactions (disorder) 9 [facility] (1 source) HYDROcodone Drug Allergy 0 [facility] (1 source) Sulfonamides (Antibiotic) Drug allergy (disorder) 3 [facility] (4 sources) Amoxicillin / Clavulanate; Translations: [amoxicillin-cla vulanate] Drug Allergy Unknown (qualifier value) [facility] (5 sources) Fluconazole; Translations: [fluconazole] Drug Allergy 3 Unknown (qualifier value) [facility] (4 sources) Sulfonamides (Antibiotic); Translations: [sulfa drugs] Drug allergy Unknown (qualifier value) [facility] (5 sources) traMADol; Translations: [tramadol] Drug Allergy 3 Unknown (qualifier value) [facility] (1 source) AMOXICILLIN-POT CLAVULANATE; Translations: [AMOXICILLIN-POT CLAVULANATE] Propensity to adverse reactions to drug (disorder) 3 [facility] Medications Current Medications Medication Drug Class(es) Dates Sig (Normalized) Sig (Original) ProAir HFA (1 source) beta2-Adrenergic Agonist Start: 09-08-2022 ProAir HFA Inhalation, q6hr Wheezing, Refill(s) 0 Start Date: 09/08/22 Status: Ordered Albuterol (Eqv-ProAir HFA) 90 mcg/inh inhalation aerosol (1 source) Start: 08-15-2023 Albuterol (Eqv-ProAir HFA) 90 mcg/inh inhalation aerosol See Instructions, 8.5 EA, Refill(s) 0, TAKE 2 PUFFS EVERY 4 HOURS NEEDED, [id number], 148, cm, 07/19/23 10:14:00 EDT, Height/Length Dosing, 61.7, kg, 07/19/23 10:14:00 EDT, Weight Dosing Start Date: 08/15/23 Status: Ordered Aspir-81 (2 sources) Aspir-81 Active aspirin 81 mg oral tablet (2 sources) Platelet Aggregation Inhibitor, Nonsteroidal Anti-inflammatory Drug Start: 09-08-2022 take 81 mg by mouth once daily aspirin 81 mg, Oral, Daily, Refills(s) 0 Start Date: 09/08/22 Status: Ordered Symbicort (4 sources) Corticosteroid, beta2-Adrenergic Agonist Start: 09-08-2022 Symbicort 80/4.5, Inhalation, BID, Refill(s) 0 Start Date: 09/08/22 Status: Ordered take 2 puff(s) by inhalation twi ce daily Symbicort 80-4.5 MCG/ACT 2 puffs Inhalation Twice a day Active Symbicort Active Calcium Carbonate (4 sources) Start: 09-08-2022 Tums mg, Chewe d, Daily, Refills(s) 0 Start Date: 09/08/22 Status: Ordered Tums Active candesartan cilexetil 4 mg oral tablet (3 sources) Angiotensin 2 Receptor Mily Start: 03-21-2023 take 1 tablet by mouth once daily Atacand 4 mg Tab 4 mg = 1 tab(s), Oral, Daily, # 90 tab(s), Refills(s) 1, Pharmacy: [facility]/pharmacy #[id number], 148, cm, 03/21/23 8:51:00 EST, Height/Length Dosing, 64, kg, 03/21/23 8:51:00 EST, Weight Dosing Start Date: 03/21/23 Status: Ordered Start: 09-08-2022 take 1 tablet by [facility] once daily Atacand 4 mg Tab 4 mg = 1 tab(s), Oral, Daily, # 90 tab(s), Refills(s) 0, Pharmacy: [facility], 148, cm, 09/08/22 11:37:00 EDT, Height/Length Dosing, 63.6, kg, 09/08/22 11:37:00 EDT, Weight Dosing Start Date: 09/08/22 Status: Ordered Candesartan Cilexetil-HCTZ (1 source) Candesartan Cilexetil-HCTZ Active celecoxib 200 mg oral capsule (4 sources) Nonsteroidal Anti-inflammatory Drug Start: 09-14-19 take 1 capsule by mouth twice daily as needed for pain celecoxib 200 mg Cap See Instructions, TAKE 1 CAPSULE BY MOUTH TWICE A DAY NEEDED FOR PAIN, # 180 cap(s), Refills(s) 1, Pharmacy: [facility] STORE [id number], 148, cm, 07/19/23 10:14:00 EDT, Height/Length Dosing, 61.7, kg, 07/19/23 10:14:00 EDT, Weight Dosing Start Date: 09/14/23 Status: Ordered Start: 07-05-2022 take 1 capsule by [facility] twice daily as needed for pain celecoxib 200 mg Cap 200 mg = 1 cap(s), Oral, BID, as needed for pain, Refills(s) 0 Start Date: 07/05/22 Status: Ordered Celecoxib Active digoxin 0.125 mg oral tablet (4 sources) Cardiac Glycoside Start: 03-21-2023 End: 03-15-2024 take 1 tablet by mouth once daily digoxin 125 mcg (0.125 mg) Tab 125 mcg = 1 tab(s), Oral, Daily, X 90 day(s), # 90 tab(s), Refills(s) 3, Pharmacy: [facility]/pharmacy #[id number], 148, cm, 03/21/23 8:51:00 EST, Height/Length Dosing, 64, kg, 03/21/23 8:51:00 EST, Weight Dosing Start Date: 03/21/23 Stop Date: 03/15/24 Status: Ordered Start: 07-05-2022 take 1 tablet by bridget th once daily digoxin 125 mcg (0.125 mg) Tab 125 mcg = 1 tab(s), Oral, Daily, Refills(s) 0 Start Date: 07/05/22 Status: Ordered Digoxin Active ICaps AREDS 2 (2 sources) Start: 07-05-2022 ICaps AREDS 2 See Instructions, Refill(s) 0, take 2 orally daily Start Date: 07/05/22 Status: Ordered levothyroxine sodium 0.05 mg oral tablet (4 sources) l-Thyroxi ne Start: 03-21-2023 take 1 tablet by mouth once daily levothyroxine 50 mcg (0.05 mg) Tab 50 mcg = 1 tab(s), Oral, Daily, # 90 tab(s), Refills(s) 1, Pharmacy: [facility]/pharmacy #[id number], 148, cm, 03/21/23 8:51:00 EST, Height/Length Dosing, 64, kg, 03/21/23 8:51:00 EST, Weight Dosing Start Date: 03/21/23 Status: Ordered Start: 07-05-2022 take 1 tablet by bridget once daily levothyroxine 50 mcg (0.05 mg) Tab 50 mcg = 1 tab(s), Oral, Daily, Refills(s) 0 Start Date: 07/05/22 Status: Ordered Levothyroxine So dium Active meclizine hydrochloride 25 mg oral tablet (2 sources) Antiemetic Start: 08-25-2022 take 1 tablet by mouth every eight hours as needed for dizziness meclizine 25 mg Tab 25 mg = 1 tab(s), Oral, q8hr, as needed for dizziness, # 30 tab(s), Refills(s) 0, Pharmacy: [facility]/pharmacy #[id number], 147.8, cm, 07/26/22 15:28:00 EDT, Height/Length Dosing, 63.6, kg, 07/26/22 15:28:00 EDT, Weight Dosing Start Date: 08/25/22 Status: Ordered 24 hr metoprolol succinate 25 mg extended release oral tablet (3 sources) beta-Adrenergic Mily Start: 09-14-2023 take 1 tablet by mouth at bedtime metoprolol succinate 25 mg ER Tab 25 mg = 1 tab(s), Oral, Bedtime, # 90 tab(s), Refills(s) 1, Pharmacy: [facility]/pharmacy #[id number], 148, cm, 07/19/23 10:14:00 EDT, Height/Length Dosing, 61.7, kg, 07/19/23 10:14:00 EDT, Weight Dosing Start Date: 09/14/23 Status: Ordered Start: 07-05-2022 take 1 tablet by bridget th at bedtime metoprolol 25 mg ER Tab 25 mg = 1 tab(s), Oral, Bedtime, Refills(s) 0 Start Date: 07/05/22 Status: Ordered Metoprolol Tartr ate Not-Taking montelukast 10 mg oral tablet (4 sources) Leukotriene Receptor Antagonist Start: 03-21-2023 take 1 tablet by mouth once daily montelukast 10 mg Tab 10 mg = 1 tab(s), Oral, Daily, # 90 tab(s), Refills(s) 3, [id number] 148, cm, 03/21/23 8:51:00 EST, Height/Length Dosing, 64, kg, 03/21/23 8:51:00 EST, Weight Dosing Start Date: 03/21/23 Status: Ordered Start: 08-22-2022 take 1 tablet by bridget th once daily montelukast 10 mg Tab 10 mg = 1 tab(s), Oral, Daily, # 90 tab(s), Refills(s) 3, Pharmacy: [facility], 147.8, cm, 07/26/22 15:28:00 EDT, Height/Length Dosing, 63.6, kg, 07/26/22 15:28:00 EDT, Weight Dosing Start Date: 08/22/22 Status: Ordered Montelukast Sodi um Active PreserVision AREDS (2 sources) PreserVision ARE DS Active spironolactone 25 mg oral tablet (4 sources) Aldosterone Antagonist Start: 09-14-19 take 1 tablet by mouth once daily spironolactone 25 mg Tab See Instructions, TAKE 1 TABLET BY MOUTH EVERY DAY, # 90 tab(s), Refills(s) 1, Pharmacy: [id number], 148, cm, 07/19/23 10:14:00 EDT, Height/Length Dosing, 61.7, kg, 07/19/23 10:14:00 EDT, Weight Dosing Start Date: 09/14/23 Status: Ordered Start: 07-05-2022 take 1 tablet by bridget th once daily spironolactone 25 mg Tab 25 mg = 1 tab(s), Oral, Daily, Refills(s) 0 Start Date: 07/05/22 Status: Ordered Spironolactone A ctive Tylenol Extra Strength (2 sources) Start: 09-08-2022 take 500 mg by mouth twice daily as needed for pain Tylenol Extra Strength 500 mg, Oral, BID, PRN as needed for pain, Refills(s) 0 Start Date: 09/08/22 Status: Ordered Problems Active Problems Problem Classification Problem Date Documented Date Episodic/Chronic Abdominal pain (4 sources) Right upper quadrant pain; Translations: [Right upper quadrant pain] Episodic Acquired foot deformities (2 sources) Foot-drop 09-08-2022 Episodic Asthma (2 sources) Asthma 09-08-2022 Chronic Cancer; other and unspecified primary (1 source) Squamous cell carcinoma in situ Onset: 09-20-1909-19-2022 Chronic Conditions associated with dizziness or vertigo (5 sources) Benign paroxysmal vertigo, unspecified ear; Translations: [Labyrinthitis] Onset: 12-23-19 Episodic Conduction disorders (2 sources) Left bundle-branch block, unspecified; Translations: [Left bundle-branch block, unspecified] Onset: 10-21-19 Chronic Disorders of lipid metabolism (2 sources) Hypercholesterolemia 07-05-2022 Chronic Diverticulosis and diverticulitis (2 sources) Diverticular disease 07-05-2022 Chronic Essential hypertension (4 sources) Hypertensive disorder; Translations: [Essential (primary) hypertension] Onset: 10-21-1907-05-2022 Chronic Heart valve disorders (6 sources) Nonrheumatic aortic (valve) stenosis; Translations: [NONRHEUMATIC AORTIC VALVE STENOSIS] Onset: 07-20-19 Chronic Heart valve disorders (2 sources) Heart murmur 07-05-2022 Episodic Comment on above: bicuspid aortic valv e Osteoarthritis (2 sources) Osteoarthritis of hip 07-05-2022 Chronic Osteoporosis (1 source) Osteoporosis 07-05-2022 Chronic Other bone disease and musculoskeletal deformities (1 source) Osteopenia 09-26-2022 Episodic Other [employer] infection and poliomyelitis (2 sources) 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 Other gastrointestinal disorders (2 sources) Dysphagia; Translations: [Dysphagia, unspecified] Episodic Other hereditary and degenerative nervous system conditions (2 sources) Restless legs 07-05-2022 Chronic Other liver diseases (3 sources) Steatosis of liver; Translations: [Fatty (change [...] Episodic Other nutritional; endocrine; and metabolic disorders (2 sources) Overweight 07-05-2022 Episodic Other skin disorders (4 sources) Nail dystrophy; Translations: [NAIL DYSTROPHY] Onset: 06-09-19 Episodic Other upper respiratory disease (1 source) Allergic rhinitis 07-05-2022 Chronic Other upper respiratory disease (1 source) Allergic rhinitis due to pollen; Translations: [Allergic rhinitis due to pollen] 09-19-2022 Chronic Other upper respiratory disease (1 source) Nasal congestion 03-03-2023 Episodic Other upper respiratory infections (1 source) Acute upper respiratory infection 07-10-2023 Episodic Peripheral and visceral atherosclerosis (1 source) Peripheral vascular disease, unspecified; Translations: [PERIPHERAL VASCULAR DISEASE UNS] Onset: 03-11-19 Chronic Spondylosis; intervertebral disc disorders; other back problems (8 sources) Cervical spondylosis; Translations: [Lumbar spondylosis] Onset: 04-13-19 24 07-05-2022 Chronic Spondylosis; intervertebral disc disorders; other back problems (4 sources) Radiculopathy, cervical region; Translations: [Cervicalgia] Onset: 04-10-19 Episodic Thyroid disorders (2 sources) Hypothyroidism 07-05-2022 Chronic Unclassified (3 sources) COUGH, UNSPECIFIED; Translations: [COUGH, UNSPECIFIED] Onset: 09-11-19 Unclassified (1 source) Pain of knee region 06-27-2023 Unclassified (1 source) Pain of right shoulder region 03-21-2023 Viral infection (1 source) COVID-19; Translations: [COVID-19] [...] Range Facil ity Ambulatory Visit Summaryon 0 09-19-2023 Ambulatory Visit Summary Ambulatory Visit Summary UNA GOMEZ :1940 Visit Date:09/19/2023 Ambulatory Visit Instructions Your Diagnosis Hypothyroidism Primary hypertension Squamous cell carcinoma in situ Left sciatic nerve pain BMI 28.0-28.9,adult Over weight Nonsmoker Your Care Team Attending Physician - Yaniv De La Garza MD Primary Care Physician - Yaniv De La Garza MD This Is Your Medications List Contact prescribing physician if questions or concerns acetaminophen (Tylenol Extra Strength) albuterol (Albuterol (Eqv-ProAir HFA) 90 mcg/inh inhalation aerosol) aspirin budesonide-formoterol (Symbicort) calcium carbonate (Tums) candesartan (Atacand 4 mg Tab) celecoxib (celecoxib 200 mg Cap) digoxin (digoxin 125 mcg (0.125 mg) Tab) levothyroxine (levothyroxine 50 mcg (0.05 mg) Tab) meclizine (meclizine 25 mg Tab) metoprolol (metoprolol succinate 25 mg ER Tab) montelukast (montelukast 10 mg Tab) multivitamin with minerals (ICaps AREDS 2) spironolactone (spironolactone 25 mg Tab) Procedures Performed Cataracts, Cholecystectomy, Shoulder replacement. Discharge Vitals Temperature (Oral) 36.6 ?C Heart Rate (Peripheral) 72 Respiratory Rate 16 Blood Pressure 118/72 Height 147 cm Height 58 in Weight 61.8 kg Weight 135.96 lb BMI 28.6 What to do next Scheduled Follow-Up Appointments Monday 10:45 AM EST With: Francisco BELTRAN, Yaniv Pope Where: [place] [phone] \.br\ Medications\.br\ What How Much When Instructions\.br\ Unchanged acetaminophen (Tylenol Extra Strength) 500 Milligram By Mouth 2 times a day as needed for as needed for pain Contact prescribing physician if questions or concerns \.br\ Unchanged albuterol (Albuterol (Eqv-ProAir HFA) 90 mcg/ inh inhalation aerosol) See instructions TAKE 2 PUFFS EVERY 4 HOURS NEEDED Contact prescribing physician if questions or concerns \.br\ Unchanged aspirin 81 Milligram By Mouth Every day Contact prescribing physician if questions or concerns \.br\ Unchanged budesonide-formoterol (Symbicort) 80/4.5 Inhalation 2 times a day Contact prescribing physician if questions or concerns \.br\ Unchanged calcium carbonate (Tums) Chewed Every day Contact prescribing physician if questions or concerns \.br\ Unchanged candesartan (Atacand 4 mg Tab) 1 Tablets By Mouth Every day Contact prescribing physician if questions or concerns \.br\ Unchanged celecoxib (celecoxib 200 mg Cap) See instructions TAKE 1 CAPSULE BY MOUTH TWICE A DAY NEEDED FOR PAIN Contact prescribing physician if questions or concerns \.br\ Unchanged digoxin (digoxin 125 mcg (0.125 mg) Tab) 1 Tablets By Mouth Every day Duration: 90 Days Contact prescribing physician if questions or concerns \.br\ Unchanged levothyroxine (levothyroxine 50 mcg (0.05 mg) Tab) 1 Tablets By Mouth Every day Contact prescribing physician if questions or concerns \.br\ Unchanged meclizine (meclizine 25 mg Tab) 1 Tablets By Mouth Every 8 hours as needed for dizziness Contact prescribing physician if questions or concerns \.br\ Unchanged metoprolol (metoprolol succinate 25 mg ER Tab) 1 Tablets By Mouth At bedtime Contact prescribing physician if questions or concerns \.br\ Unchanged montelukast (montelukast 10 mg Tab) 1 Tablets By Mouth Every day Contact prescribing physician if questions or concerns \.br\ Unchanged multivitamin with minerals (ICaps AREDS 2) See instructions take 2 orally daily Contact prescribing physician if questions or concerns \.br\ Unchanged spironolactone (spironolactone 25 mg Tab) See instructions TAKE 1 TABLET BY MOUTH EVERY DAY Contact prescribing physician if questions or concerns \.br\ Allergies\.br\ Augmentin (Unknown)\.br\ Diflucan (Unknown)\.br\ sulfa drugs (Unknown)\.br\ traMADol (Unknown)\.br\ Problems\.br\ Ongoing - Any problem that you are currently receiving treatment for.\.br\ Asthma\.br\ Cervical spondylosis\.br\ Diverticular disease\.br\ Foot drop\.br\ Hypercholesterolemia\ .br\ Hypothyroidism\.br\ Knee pain, left\.br\ Left sciatic nerve pain\.br\ Lumbar spondylosis\.br\ Murmur\.br\ Nasal congestion\.br\ Non-seasonal allergic [...] choosing us for your care.\.br\ \.br\ [facility] Medicine Office/Clini c Noteon 09-19-2023 Family Medicine Office/Clinic Note Family Medicine Office/Clinic Note HPI Staff Una is an 83 year old female presenting for 6 month follow up htn, thyroid Patient is here for follow up on hypertension. How often are you checking your blood pressure? Doesnt check BP at home What are your average readings? N/A, Not checking at home Yearly BMP: 09/09/22 Patient is here for follow up on Thyroid Disease. Do you have any of the following symptoms? Change in energy level? no Weight change? 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 yes gets hot flashes yet Hair/skin/nail changes? no Change in bowels? no Last TSH: TSH: 1.42 mcIU/mL (09/09/22 10:14:00) questions/concerns: her sciatic nerve especially left leg, has one exercise she does but ? maybe needs some PT to get more exercises to help it History of Present Illness - Here for follow up. - See staff HPI. Review of Systems PHQ Score Initial Depression Screen Score: 2 SCORE Physical Exam Vitals & Measurements T: 36.6 ?C(Oral) HR: 72(Peripheral) RR: 16 BP: 118/72 SpO2: 98% HT: 58 in HT: 147 cm WT: 61.8 kg WT: 135.96 lb BMI: 28.6 General: alert, no acute distress ENMT: oral mucosa moist, Cardiovascular: regular rate and rhythm, normal peripheral perfusion Respiratory: Lungs CTA, respirations non labored Extremities: no deformity, no trauma, pain radiating down the Neurological: oriented x 4, LOC appropriate for age, CN II-XII intact, motor strength equal & normal bilaterally, speech normal Abdomen: Soft, Nontender, Non-distended, + BS Assessment/Plan 1. Hypothyroidism (E03.9: Hypothyroidism, unspecified) WNL. - Continue on meds as before Ordered: TSH With T4fr Reflex 2. Primary hypertension (I10: Essential (primary) hypertension) - At goal. - No issues with meds Ordered: Comprehensive Metabolic Panel eGFR 3. 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 Left sciatic nerve pain (M54.32: Sciatica, left side) - Will send to PT for further work to reduce pain. 5. Bereavement (Z63.4: Disappearance and of family member) - Doing ok. - Pt will contact us if needing anything. 6. BMI 28.0-28.9,adult (Z68.28: Body mass index [BMI] 28.0-28.9, adult) - BMI education added 7. Over weight (E66.3: Overweight) - Diet and exercise advised Ordered: TSH With T4fr Reflex 8. Nonsmoker (Z78.9: Other specified health status) - Please continue to not smoke. Orders: Lab Specimen Collect [id number] Lipid Panel Follow-up No qualifying data available Patient Education BMI for Adults Problem List/Past Medical History Ongoing Asthma Bereavement Cervical spondylosis Diverticular disease Foot drop Hypercholesterolemia Hypothyroidism Knee pain, left Left sciatic nerve pain Lumbar spondylosis Murmur Nasal congestion Non-seasonal allergic rhinitis due to pollen Osteoarthritis of hip Osteopenia Over weight Post-poliomyelitis muscular atrophy Primary hypertension Restless legs syndrome Right upper quadrant pain Shoulder pain, right Squamous cell carcinoma in situ Steatosis of liver Thoracic spondylosis Historical No qualifying data Procedure/Surgical History Cataracts, Cholecystectomy, Shoulder replacement. Medications Albuterol (Eqv-ProAir HFA) 90 mcg/inh inhalation aerosol, See Instructions aspirin, 81 mg, Oral, Daily Atacand 4 mg Tab, 4 mg= 1 tab(s), Oral, Daily, 1 refills celecoxib 200 mg Cap, See Instructions digoxin 125 mcg (0.125 mg) Tab, 125 mcg= 1 tab(s), Oral, Daily, 3 refills ICaps AREDS 2, See Instructions levothyroxine 50 mcg (0.05 mg) Tab, 50 mcg= 1 tab(s), Oral, Daily, 1 refills meclizine 25 mg Tab, 25 mg= 1 tab(s), Oral, q8hr metoprolol succinate 25 mg ER Tab, 25 mg= 1 tab(s), Oral, Bedtime, 1 refills montelukast 10 mg Tab, 10 mg= 1 tab(s), Oral, Daily, 3 refills spironolactone 25 mg Tab, See Instructions Symbicort, 80/4.5, Inhalation, BID Tums, Chewed, Daily Tylenol Extra Strength, 500 mg, Oral, BID, PRN Allergies Augmentin (Unknown) Diflucan (Unknown) sulfa drugs (Unknown) traMADol (Unknown) Social History Alcohol - Denies Alcohol Use, 09/14/2023 Household alcohol concerns: No., 09/08/2022 Substance Abuse - Denies Substance Abuse, 09/14/2023 Tobacco - Denies Tobacco Use, 09/14/2023 Never (less than 100 in lifetime) Tobacco Use:. Never Smokeless Tobacco Use:. Household tobacco concerns: No., 09/19/2023 Family History Acute myocardial infarction: Grandparent and Grandparent. Immunizations Vaccine Date Status Comments influenza virus vaccine, inactivated 12/14/2022 Recorded SARS-CoV-2 (COVID-19) [id number] 02/10/2022 Recorded influenza virus vaccine, inactivated 12/27/2021 Recorded SARS-CoV-2 (COVID-19) [id number] vaccine 03/17/2021 Recorded 2022-07-04: [id number] influenza virus vaccine, inactivated 02/10/2021 Recorded pneumoco (more content not included)... Normal [facility] Comment on above: Result Comment: Elec tronically Signed By: Francisco BELTRAN, Yaniv Pope\.br\Date and Time Signed: 09/19/23 10:30 EDT CHEMISTRYOrdered By: SYSTEM SYSTEM on 09-18-2023 Albumin [Mass/Vol] 4.5 g/dL Normal 3.3 - 5.0 gm/dL Remisol Chem Albumin/Globulin [Mass ratio] 1.6 {ratio} Normal 1.1 - 2.2 Remisol Chem ALP [Catalytic activity/Vol] 81 [iU]/d Normal 21 - 98 Int._Unit/L Remisol Chem ALT No additional P-5'-P [Catalytic activity/Vol] 23 [iU]/d Normal 6 - 46 Int._Unit/L Remisol Chem Anion gap [Moles/Vol] 11 mmol/L Normal 6 - 16 mEq/L Remisol Chem AST [Catalytic activity/Vol] 25 [iU]/d Normal 5 - 43 Int._Unit/L Remisol Chem Bilirubin [Mass/Vol] 1.4 mg/dL High 0.0 - 1.1 mg/dL Remisol Chem Calcium [Mass/Vol] 9.4 mg/dL Normal 8.9 - 11.1 mg/dL Remisol Chem Chloride [Moles/Vol] 105 mmol/L Normal 101 - 111 mmol/L Remisol Chem Cholesterol [Mass/Vol] 105 mg/dL Low 120 - 200 mg/dL Remisol Chem Cholesterol in HDL [Mass/Vol] 32 mg/dL Invalid Interpretation Code Remisol Chem Comment on above: Result Comment: '>= 60 LOW RISK' '<= 40 HIGH RISK' Cholesterol in LDL [Mass/Vol] 60 mg/dL Normal <=129mg/dL Remisol Chem Cholesterol in VLDL [Mass/Vol] 28 mg/dL Normal 7 - 40 mg/dL Remisol Chem CO2 [Moles/Vol] 25 mmol/L Normal 21 - 31 mmol/L Remis ol Chem Creatinine [Mass/Vol] 0.7 mg/dL Normal 0.5 - 1.3 mg/dL Remisol Chem eGFR 84 mL/min/1.73 m2 Normal >=59mL/min/1.73 m2 Remisol Chem Globulin (S) [Mass/Vol] 2.8 g/dL Normal 1.4 - 4.0 gm/dL Remisol Chem Glucose [Mass/Vol] 96 mg/dL Normal 55 - 199 mg/dL Remisol Chem Potassium [Moles/Vol] 4.1 mmol/L Normal 3.5 - 5.3 mmol/L Remisol Chem Protein [Mass/Vol] 7.3 g/dL Normal 6.0 - 7.8 gm/dL Remisol Chem Sodium [Moles/Vol] 137 mmol/L Normal 135 - 145 mmol/L Remisol Chem Triglyceride [Mass/Vol] 142 mg/dL Normal <=149mg/dL Remisol Chem TSH Qn 1.34 m[IU]/L Normal 0.34 - 5.60 mcIU/mL Rem isol Chem Urea nitrogen [Mass/Vol] 19 mg/dL Normal 5 - 21 mg/dL Remisol Chem Urea nitrogen/Creatini ne [Mass ratio] 27 mg/mg High 10 - 20 Remisol Chem CMPon 09-18-2023 Albumin [Mass/Vol] 4.5 g/dL Normal 3.3-5.0 [facility] Comment on above: Performed By: #### 2 [id number] #### [facility] [address] [place] [address] Albumin/Globulin (S) [Mass conc ratio] 1.6 Normal 1.1-2.2 [facility] Comment on above: Performed By: #### 2 [id number] #### [facility] [address] [place] [address] ALP [Catalytic activity/Vol] 81 Int._Unit/L Normal 21-98 [facility] Comment on above: Performed By: #### 2 [id number] #### [facility] [address] [place] [address] ALT No additional P-5'-P [Catalytic activity/Vol] 23 Int._Unit/L Normal 6-46 [facility] Comment on above: Performed By: #### 2 [id number] #### [facility] [address] [place] [address] Anion gap [Moles/Vol] 11 mmol/L Normal 6-16 [facility] Comment on above: Performed By: #### 2 [id number] #### [facility] [address] [place] [address] AST [Catalytic activity/Vol] 25 Int._Unit/L Normal 5-43 [facility] Comment on above: Performed By: #### 2 [id number] #### [facility] [address] [place] [address] Bilirubin [Mass/Vol] 1.4 mg/dL High 0.0-1.1 [facility] Comment on above: Performed By: #### 2 [id number] #### [facility] [address] [place] [address] Calcium [Mass/Vol] 9.4 mg/dL Normal 8.9-11.1 [facility] Comment on above: Performed By: #### 2 [id number] #### [facility] [address] [place] [address] Chloride [Moles/Vol] 105 mmol/L Normal 101-111 [facility] Comment on above: Performed By: #### 2 [id number] #### [facility] [address] [place] [address] CO2 [Moles/Vol] 25 mmol/L Normal 21-31 [facility] Comment on above: Performed By: #### 2 [id number] #### [facility] [address] [place] [address] Creatinine [Mass/Vol] 0.7 mg/dL Normal 0.5-1.3 [facility] Comment on above: Performed By: #### 2 [id number] #### [facility] [address] [place] [address] Globulin (S) [Mass/Vol] 2.8 g/dL Normal 1.4-4.0 [facility] Comment on above: Performed By: #### 2 [id number] #### [facility] [address] [place] [address] Glucose [Mass/Vol] 96 mg/dL Normal 55-199 [facility] Comment on above: Performed By: #### 2 [id number] #### [facility] [address] [place] [address] Potassium [Moles/Vol] 4.1 mmol/L Normal 3.5-5.3 [facility] Comment on above: Performed By: #### 2 [id number] #### [facility] [address] [place] [address] Protein [Mass/Vol] 7.3 g/dL Normal 6.0-7.8 [facility] Comment on above: Performed By: #### 2 [id number] #### [facility] [address] [place] [address] Sodium [Moles/Vol] 137 mmol/L Normal 135-145 [facility] Comment on above: Performed By: #### 2 [id number] #### [facility] [address] [place] [address] Urea nitrogen [Mass/Vol] 19 mg/dL Normal 5-21 [facility] Comment on above: Performed By: #### 2 [id number] #### [facility] [address] [place] [address] Urea nitrogen/Creatini ne [Mass ratio] 27 No Units High 10-20 [facility] Comment on above: Performed By: #### 2 [id number] #### [facility] [address] [place] [address] Lipid Panelon 09-18-2023 Cholesterol [Mass/Vol] 105 mg/dL Low 120-200 [facility] Comment on above: Performed By: #### 2 [id number] #### [facility] [address] [place] [address] Cholesterol in HDL [Mass/Vol] 32 mg/dL Invalid Interpretation Code [facility] Comment on above: Result Comment: '>= 60 LOW RISK' '<= 40 HIGH RISK' Performed By: #### 2 [id number] #### [facility] [address] [place] [address] Cholesterol in LDL [Mass/Vol] 60 mg/dL Normal <=129 [facility] Comment on above: Performed By: #### 2 [id number] #### [facility] [address] [place] [address] Cholesterol in VLDL [Mass/Vol] 28 mg/dL Normal 7-40 [facility] Comment on above: Performed By: #### 2 [id number] #### [facility] [address] [place] [address] Triglyceride [Mass/Vol] 142 mg/dL Normal <=149 [facility] Comment on above: Performed By: #### 2 [id number] #### [facility] [address] [place] [address] TSH With T4fr Reflexon 09-17 TSH Qn 1.34 m[IU]/L Normal 0.34-5.60 [facility] Comment on above: Performed By: #### 1 [id number] #### [facility] [address] [place] [address] eGFRon 09-18-2023 eGFR 84 mL/min/1.73 m2 Normal >=59 [facility] Comment on above: Order Comment: Order added by Discern Expert. Performed By: #### 1 [id number] #### [facility] [address] [place] [address] Ambulatory Visit Summaryon 0 09-14-2023 Ambulatory Visit Summary Ambulatory Visit Summary UNA GOMEZ :1940 Visit Date:09/14/2023 Ambulatory Visit Instructions Your Diagnosis Annual visit for general adult medical examination without abnormal findings Post-poliomyelitis muscular atrophy Primary hypertension Hypothyroidism Hypercholesterolemia Asthma Osteoarthritis of hip Over weight Your Care Team Attending Physician - Marlee Martinez Primary Care Physician - Yaniv De La Garza MD This Is Your Medications List acetaminophen (Tylenol Extra Strength) albuterol (Albuterol (Eqv-ProAir HFA) 90 mcg/inh inhalation aerosol) aspirin budesonide-formoterol (Symbicort) calcium carbonate (Tums) candesartan (Atacand 4 mg Tab) celecoxib (celecoxib 200 mg Cap) digoxin (digoxin 125 mcg (0.125 mg) Tab) levothyroxine (levothyroxine 50 mcg (0.05 mg) Tab) meclizine (meclizine 25 mg Tab) metoprolol (metoprolol succinate 25 mg ER Tab) montelukast (montelukast 10 mg Tab) multivitamin with minerals (ICaps AREDS 2) spironolactone (spironolactone 25 mg Tab) Procedures Performed Cataracts, Cholecystectomy, Shoulder replacement. Discharge Vitals Heart Rate (Peripheral) 71 Respiratory Rate 16 Blood Pressure 102/62 Height 147 cm Height 58 in Weight 61 kg Weight 134.2 lb BMI 28.23 What to do next Scheduled Follow-Up Appointments Monday 9:20 AM EDT With: Where: [facility] Invalid Interpretation Code [address] [place] [address]- \.br\ Monday 11:00 AM EDT \.br\ With:\.br\ Where: [facility] Family Medicine Office/Clini c Noteon 09-14-2023 Family Medicine Office/Clinic Note Family Medicine Office/Clinic Note Chief Complaint Medicare Wellness Visit Subsequent Review of Systems PHQ Score Initial Depression Screen Score: 3 SCORE Detailed Depression Screen Score: 5 Total Depression Screen Score: 8 Physical Exam Vitals & Measurements HR: 71(Peripheral) RR: 16 BP: 102/62 SpO2: 95% HT: 147 cm HT: 58 in WT: 61 kg WT: 134.2 lb BMI: 28.23 Assessment/Plan 1. Annual visit for general adult medical examination without abnormal findings (Z00.00: Encounter for general adult medical examination without abnormal findings) Discussed all the current AHRQ USPSTF?s recommendations for preventative services and all current CDC recommended immunizations, relevant risk recommendations and the following patient brochures were given. Reviewed Medicare Prevention Services checklist. CDC-Falls Prevention and home safety screening reviewed. Patient states one fall without injury last 12 months, denies any falls in the past three months, voices no worry about falling. Exhibits no problems with sitting, standing or ambulation. Patient aware with keeping walk way area free of clutter to prevent tripping and/or falling. [place] Advance Directives reviewed. Documents remain at home and present in the chart. Patient denies any problems with ADL?s and Instrumental ADL?s- states she does need help to do heavy cleaning, states she plans to call to hire someone to come clean for her. Cognitive screening completed with memory and clock face drawing. No deficits noted. Immunization record reviewed, discussed Shingrix vaccine with educational handout and availability. COVID vaccines have been administered, with Boosters received. Allergies and medications reviewed and up to date. No concerns with taking medication as prescribed. Reviewed OTC medications, medication list up to date. Blood tests were reviewed: Discussed what tests need to be updated. Labs were ordered, will have completed prior to next PCP visit. Labs to be completed with [facility] on a nurse visit. No concerns with bowel/ bladder. Colonoscopy: Aged out. Reviewed pain symptoms : denies pain today, c/o sciatic nerve pain down her left leg sometimes when she stands, states she has had it for years but has decided to discuss this with PCP at next office visit, declined to make an earlier appointment, states she is going to request an order for PT from PCP when she sees him next. Reviewed all outside providers that patient follows. Last visit summary notes available in chart and/or have been requested. Patient declines any signs or symptoms of depression at this time. 15 minutes spent with screening and documentation. PHQ2 screening score 3. PHQ9-8. Patient declines referral for Behavioral Health at this time. Denies suicidal thoughts. States her recently passed and she has been down but is not ready to talk about it yet. States when she is ready she has a really good manager hiv she can talk to and she can talk to her daughter who lives nearby. Patient denies alcohol use, denies concerns. 8 minutes spent with screening and documentation. Audit score 0. Follow up scheduled with PCP, 09/19/23. AWV has been scheduled, 09/09/24. Medicare provides yearly screening for alcohol and depression concerns. This is completed during our Medicare wellness visit for those who do not have a current diagnosis of depression or concerns with alcohol use. I spent a total of 23 minutes on this date of service which included preparing to see the patient, face to face patient care, completing clinical documentation, obtaining and/or reviewing separately obtained history, counseling and educating the patient with handouts. Explanations were provided with reviewing questionnaires. AUDIT risk assessment screening completed, risk score (0) with patient denying concerns with use. Completed PHQ-2 risk assessment for depression with risk score (3), positive findings, PHQ-9 risk score 8, negative findings. Patient has been reminded to notify the provider if there would be a change or concerns with symptoms with fear, unable to sleep, worrying too much or feeling down and/or sad with lost of interest with daily activities. Will continue to monitor with screening yearly during Medicare wellness visits. 2. Post-poliomyelitis muscular atrophy (G14: Postpolio syndrome) Denies any muscle weakness, denies difficulty walking, denies tripping, able to perform most ADLs on her own states she just needs help with heavy house cleaning. Her used to do it for her but recently passed, she plans to call to hire a general cleaner but has not done it yet. Follow up with PCP. 3. Primary hypertension (I10: Essential (primary) hypertension) Patient taking medications daily as directed, BP not monitored at home. Patient does voice understanding with signs and symptoms to monitor for. HTN stoplight handout reviewed with importance of keeping BP <140/90 to prevent increased cardiovascular risks. DASH dietary handout reviewed with impo (more content not included)... Normal [facility] Comment on above: Result Comment: Elec tronically Signed By: LEA WALLACE CNP\.br\Date and Time Signed: 09/14/23 15:23 EDT\.br\Electronically Co-Signed By: Brittney Weber LPN\.br\Date and Time Co-Signed: 09/14/23 14:34 EDT Ambulatory Visit Summaryon 0 07-19-2023 Ambulatory Visit Summary UNA GOMEZ :1940 Visit Date:07/19/2023 Ambulatory Visit Instructions Your Diagnosis Asthma BMI 28.0-28.9,adult Your Care Team Attending Physician - LEA WALLACE CNP Primary Care Physician - Yaniv De La Garza MD This Is Your Medications List acetaminophen (Tylenol Extra Strength) albuterol (Albuterol (Eqv-ProAir HFA) 90 mcg/inh inhalation aerosol) aspirin budesonide-formoterol (Symbicort) calcium carbonate (Tums) candesartan [...] Shoulder replacement. Discharge Vitals Temperature (Temporal Artery) 37.0 ?C Heart Rate (Peripheral) 76 Respiratory Rate 14 Blood Pressure 112/60 Height 148.0 cm Height 58 in Weight 61.7 kg Weight 135.74 lb BMI 28.17 What to do next Scheduled Follow-Up Appointments 2023 11:00 AM EDT With: Where: [facility] Normal [address] [place] [id number]- \.br\ Medications\.br\ What How Much When Instructions\.br\ Changed albuterol (Albuterol (Eqv-ProAir HFA) 90 mcg/ inh inhalation aerosol) 2 Puffs Inhalation Every 4 hours as needed \.br\ Unchanged acetaminophen (Tylenol Extra Strength) 500 Milligram By Mouth 2 times a day as needed for as needed for pain\.br\ Unchanged aspirin 81 Milligram By Mouth Every [...] that you are currently receiving treatment for.\.br\ Acute URI\.br\ Asthma\.br\ Cervical spondylosis\.br\ Diverticular disease\.br\ Foot drop\.br\ Hypercholesterolemia\ .br\ Hypothyroidism\.br\ Knee pain, left\.br\ Lumbar spondylosis\.br\ Murmur\.br\ Nasal congestion\.br\ Non-seasonal allergic [...] for choosing us for your care.\.br\ \.br\ [facility] Ambulatory Visit Summary UNA GOMEZ :1940 Visit Date:07/19/2023 Ambulatory Visit Instructions Your Diagnosis Asthma BMI 28.0-28.9,adult Your Care Team Attending Physician - LEA WALLACE CNP Primary Care Physician - Yaniv De La Garza MD This Is Your Medications List acetaminophen (Tylenol Extra Strength) albuterol (Albuterol (Eqv-ProAir HFA) 90 mcg/inh inhalation aerosol) aspirin budesonide-formoterol (Symbicort) calcium carbonate (Tums) candesartan [...] Shoulder replacement. Discharge Vitals Temperature (Temporal Artery) 37.0 ?C Heart Rate (Peripheral) 76 Respiratory Rate 14 Blood Pressure 112/60 Height 148.0 cm Height 58 in Weight 61.7 kg Weight 135.74 lb BMI 28.17 What to do next Scheduled Follow-Up Appointments 2023 11:00 AM EDT With: Where: [facility] [place] Normal [address] [place] [address]- \.br\ Medications\.br\ What How Much When Instructions\.br\ Changed albuterol (Albuterol (Eqv-ProAir HFA) 90 mcg/ inh inhalation aerosol) 2 Puffs Inhalation Every 4 hours as needed \.br\ Unchanged acetaminophen (Tylenol Extra Strength) 500 Milligram By Mouth 2 times a day as needed for as needed for pain\.br\ Unchanged aspirin 81 Milligram By Mouth Every [...] that you are currently receiving treatment for.\.br\ Acute URI\.br\ Asthma\.br\ Cervical spondylosis\.br\ Diverticular disease\.br\ Foot drop\.br\ Hypercholesterolemia\ .br\ Hypothyroidism\.br\ Knee pain, left\.br\ Lumbar spondylosis\.br\ Murmur\.br\ Nasal congestion\.br\ Non-seasonal allergic [...] for choosing us for your care.\.br\ \.br\ [facility] Family Medicine Office/Clini c Noteon 07-19-2023 Family Medicine Office/Clinic Note Chief Complaint chest congestion and cough HPI Staff Patient of Dr. De La Garza presents for acute visit. complaints of chest congestion and cough not improving. Onset: seen Dr. De La Garza for same condition 07/10/2023 negative COVID and FLU tests Characteristics: congestion in head and chest OTC tried: Mucinex, Zpack, and steroids rescue inhaler sent in by Dr. De La Garza, [facility] called patient yesterday to tell her they got it in. Dr. De La Garza gave steriods and zpack. Patient feels it did help some. Patient is still taking mucinex. History of Present Illness 83 year old patient of Dr. De La Gazra presents today for an acute visit for evaluation of cough and chest congestion. She was seen by Dr. De La Garza on 07/10/2023 and prescribed a Zpack and a Medrol dose pack. She reports she has not obtained the ProAir as she was just notified by the pharmacy that it is available. She denies ear pain, fever, and nasal congestion. She reports she has a cough with some white mucus production. She is taking OTC Mucinex one time daily. Review of Systems Constitutional: no fever, no chills, no sweats, no weakness Respiratory: no shortness of breath, mild cough, no orthopnea, no wheezing Cardiovascular: no chest pain, no palpitations, no edema Additional ROS info: Except as noted in the above Review of Systems and in the History of Present Illness all other systems have been reviewed and are negative or noncontributory. Physical Exam Vitals & Measurements T: 37.0 ?C(Temporal Artery) HR: 76(Peripheral) RR: 14 BP: 112/60 SpO2: 96% HT: 58 in HT: 148.0 cm WT: 61.7 kg WT: 135.74 lb BMI: 28.17 General: alert, no acute distress ENMT: TM's clear, oral mucosa moist, no pharyngeal erythema or exudate; nasal passages clear Cardiovascular: regular rate and rhythm, normal peripheral perfusion Respiratory: Lungs CTA, respirations non labored Extremities: no deformity, no trauma Neurological: oriented x 4, LOC appropriate for [facility] normal Assessment/Plan 1. Asthma (J45.998: Other asthma) Continue with montelukast & symbicort as prescribed Encouraged to obtain the Albuterol inhaler from the pharmacy Discussed Mavis Nguyen with patient and she declined at this visit Discussed with patient viral vs bacterial infections Encouraged to continue OTC Mucinex BID f/u if no improvement in 3 days Ordered: Body Mass Index (BMI) documented 3008F Current tobacco non-user 1036F Medication list documented in medical record 1159F Most recent diastolic blood pressure <80 mm Hg 3078F Patient screen for fall risk: no falls in last year or 1 fall with no injury in last year 1101F Systolic BP <130 mm Hg (Most Recent) 3074F 2. BMI 28.0-28.9,adult (Z68.28: Body mass index [BMI] 28.0-28.9, adult) The standard range for ages 18 and older is >=18.5 and < 25 kg/m2. Your BMI today was above this range, this falls in the overweight to obese category and there are medical benefits to weight loss. We can offer counselling, referral, and/or medical support in addressing this problem. Your BMI and weight management will be followed at subsequent visits. Follow-up No qualifying data available Patient Education Cough, Adult, Opej-xe-Gghz Problem List/Past Medical History Ongoing Acute URI Asthma Cervical spondylosis Diverticular disease Foot drop [...] Procedure/Surgical History Cataracts, Cholecystectomy, Shoulder replacement. Medications Albuterol (Eqv-ProAir HFA) 90 mcg/inh inhalation aerosol, 180 mcg= 2 puff(s), Inhalation, q4hr aspirin, 81 mg, Oral, Daily Atacand 4 [...] mg= 1 tab(s), Oral, Daily, 3 refills spironolactone 25 mg Tab, 25 mg= 1 tab(s), Oral, Daily, 1 refills Symbicort, 80/4.5, Inhalation, BID Tums, Chewed, Daily Tylenol Extra Strength, 500 mg, Oral, BID, PRN Allergies Augmentin (Unknown) Diflucan (Unknown) sulfa drugs (Unknown) traMADol (Unknown) Social History Alcohol Household alcohol concerns: No., 09/08/2022 Tobacco Never (less than 100 in lifetime) Tobacco Use:. Never Smokeless Tobacco Use:. Household tobacco concerns: No., 07/19/2023 Family History Acut (more content not included)... Normal [facility] Comment on above: Result Comment: Elec tronically Signed By: LEA WALLACE CNP\.deshawn\Date and Time Signed: 07/19/23 12:30 EDT Patient Educationon 07-19-19 Patient Education ENT Cough, Adult A cough helps to clear your throat and lungs. A cough may be a sign of an illness or another medical condition. An acute cough may only last 2?3 weeks, while a chronic cough may last 8 or more weeks. Many things can cause a cough. They include: ? Germs (viruses or bacteria) that attack the airway. ? Breathing in things that bother (irritate) your lungs. ? Allergies. ? Asthma. ? Mucus that runs down the back of your throat (postnasal drip). ? Smoking. ? Acid backing up from the stomach into the tube that moves food from the mouth to the stomach (gastroesophageal reflux). ? Some medicines. ? Lung problems. ? Other medical conditions, such as heart failure or a blood clot in the lung (pulmonary embolism). Follow these instructions at home: Medicines ? Take cecf-yzu-fuwosfc and prescription medicines only as told by your doctor. ? Talk with your doctor before you take medicines that stop a cough (cough suppressants). Lifestyle ? Do not smoke, and try not to be around smoke. Do not use any products that contain nicotine or tobacco, such as cigarettes, e-cigarettes, and chewing tobacco. If you need help quitting, ask your doctor. ? Drink enough fluid to keep your pee (urine) pale yellow. ? Avoid caffeine. ? Do not drink alcohol if your doctor tells you not to drink. General instructions ? Watch for any changes in your cough. Tell your doctor about them. ? Always cover your mouth when you cough. ? Stay away from things that make you cough, such as perfume, candles, campfire smoke, or cleaning products. ? If the air is dry, use a cool mist vaporizer or humidifier in your home. ? If your cough is worse at night, try using extra pillows to raise your head up higher while you sleep. ? Rest as needed. ? Keep all follow-up visits as told by your doctor. This is important. Contact a doctor if: ? You have new symptoms. ? You cough up pus. ? Your cough does not get better after 2?3 weeks, or your cough gets worse. ? Cough medicine does not help your cough and you are not sleeping well. ? You have pain that gets worse or pain that is not helped with medicine. ? You have a fever. ? You are losing weight and you do not know why. ? You have night sweats. Get help right away if: ? You cough up blood. ? You have trouble breathing. ? Your heartbeat is very fast. These symptoms may be an emergency. Do not wait to see if the symptoms will go away. Get medical help right away. Call your local emergency services (911 in the [place] Do not drive yourself to the hospital. Summary ? A cough helps to clear your throat and lungs. Many things can cause a cough. ? Take kwzm-oaz-dmshwcz and prescription medicines only as told by your doctor. ? Always cover your mouth when you cough. ? Contact a doctor if you have new symptoms or you have a cough that does not get better or gets worse. This information is not intended to replace advice given to you by your health care provider. Make sure you discuss any questions you have with your health care provider. Document Revised: 04/10/2020 Document Reviewed: 03/11/2019 [employer] Patient Education ? 2022 [employer]. [facility] Ambulatory Visit Summaryon 0 07-10-2023 Ambulatory Visit Summary UNA GOMEZ :1940 Visit Date:07/10/2023 Ambulatory Visit Instructions Your Diagnosis Acute URI Asthma BMI 28.0-28.9,adult Overweight Your Care Team Attending Physician - Yaniv De La Garza MD Primary Care Physician - Yaniv De La Garza MD This Is Your Medications List azithromycin (azithromycin 250 mg Tab 5-day Dose Pack (Z-Sachin)) methylPREDNISolone (Medrol Dosepack 4 mg Tab) Contact prescribing physician if questions or concerns acetaminophen (Tylenol Extra Strength) albuterol (Albuterol (Eqv-ProAir HFA) 90 mcg/inh inhalation aerosol) albuterol (ProAir HFA) aspirin budesonide-formoterol (Symbicort) calcium [...] Shoulder replacement. Discharge Vitals Temperature (Temporal Artery) 35.8 ?C Heart Rate (Peripheral) 80 Respiratory Rate 16 Blood Pressure 116/62 Height 148 cm Height 58 in Weight 62.0 kg Weight 136.4 lb BMI 28.31 What to do next Scheduled Follow-Up Appointments 2023 11:00 AM EDT With: Where: [facility] [place] [facility] [address] [place] [address]- \.br\ Medications\.br\ What How Much When Instructions\.br\ New azithromycin (azithromycin 250 mg Tab 5-day Dose Pack (Z-Sachin)) 1 Packets By Mouth As Directed Duration: 5 Days as directed on package labeling Pickup at [facility]/pharmacy #[id number]\.br\ New methylPREDNISolone (Medrol Dosepack 4 mg Tab) 1 Packets By Mouth As Directed Duration: 6 Days as directed on package labeling Pickup at [facility]/pharmacy #[id number]\.br\ Unchanged acetaminophen (Tylenol Extra Strength) 500 Milligram By Mouth 2 times a day as needed for as needed for pain Contact prescribing physician if questions or concerns \.br\ Unchanged albuterol (Albuterol (Eqv-ProAir HFA) 90 mcg/ inh inhalation aerosol) 2 Puffs Inhalation Every 4 hours as needed Contact prescribing physician if questions or concerns [...] physician if questions or concerns \.br\ Unchanged candesartan (Atacand 4 mg Tab) 1 Tablets By Mouth Every day Contact prescribing physician if questions or concerns \.br\ Unchanged celecoxib (celecoxib 200 mg Cap) 1 Capsules By Mouth 2 times a day as needed for pain Contact prescribing physician if questions or concerns \.br\ Unchanged digoxin (digoxin 125 mcg (0.125 mg) Tab) 1 Tablets By Mouth Every day Duration: 90 Days Contact prescribing physician if questions or concerns \.br\ Unchanged levothyroxine (levothyroxine 50 mcg (0.05 mg) Tab) 1 Tablets By Mouth Every day Contact prescribing physician if questions or concerns \.br\ Unchanged meclizine (meclizine 25 mg Tab) 1 Tablets By Mouth Every 8 hours as needed for dizziness Contact prescribing physician if questions or concerns \.br\ Unchanged metoprolol (metoprolol 25 mg ER Tab) 1 Tablets By Mouth At bedtime Contact prescribing physician if questions or concerns \.br\ Unchanged montelukast (montelukast 10 mg Tab) 1 Tablets By Mouth Every day Contact prescribing physician if questions or concerns \.br\ Unchanged multivitamin with minerals (ICaps AREDS 2) See instructions take 2 orally daily Contact prescribing physician if questions or concerns \.br\ Unchanged spironolactone (spironolactone 25 mg Tab) 1 Tablets By Mouth Every day Contact prescribing physician if questions or concerns \.br\ Pharmacy Information\.br\ [id number]: [address], [place] [id number] [phone]\.br\ Allergies\.br\ Augmentin (Unknown)\.br\ Diflucan (Unknown)\.br\ sulfa drugs (Unknown)\.br\ traMADol (Unknown)\.br\ Problems\.br\ Ongoing - Any problem that you are currently receiving treatment for.\.br\ Acute URI\.br\ Asthma\.br\ Cervical spondylosis\.br\ Diverticular disease\.br\ Foot drop\.br\ Hypercholesterolemia\ .br\ Hypothyroidism\.br\ Knee pain, left\.br\ Lumbar spondylosis\.br\ Murmur\.br\ Nasal congestion\.br\ Non-seasonal allergic [...] choosing us for your care.\.br\ \.br\ [facility] Family Medicine Office/Clini c Noteon 07-10-2023 Family Medicine Office/Clinic Note HPI Staff Una is an 83 year old female presenting for sick visit Acute: sinus congestion and cough home with hospice and she's not getting any sleep due to no one to sit with her during the night so she's run down _Respiratory C/O: Duration: weekend before this current one Body aches: no Chest congestion: yes Chills: no Cough: yes Ear complaints: no Eye itching/watering: no Fever: no Headache: no Nasal congestion: yes Nasal discharge: yes colored Poor appetite: yes Reduced activity: no Sinus pain/pressure: no Sneezing: yes Sputum production: yescolored Wheezing: no Ill contacts: no Remedies tried: mucinex just recently and it relieves the congestions for a while _ _ questions/concerns: needs her albuterol rescue inhaler refilled hers was last filled in 2020 and she doesn't use it often but hers is old History of Present Illness - Here for URI symptoms. - is in hospice. - Not sleeping. - Been in and out of the hospital. - + sick contacts. - Worried with her asthma. Physical Exam Vitals & Measurements T: 35.8 ?C(Temporal Artery) HR: 80(Peripheral) RR: 16 BP: 116/62 SpO2: 98% HT: 58 in HT: 148 cm WT: 62.0 kg WT: 136.4 lb BMI: 28.31 General: alert, no acute distress ENMT: oral mucosa moist, Cardiovascular: regular rate and rhythm, normal peripheral perfusion Respiratory: Lungs expiratory wheezes, respirations non labored Extremities: no deformity, no trauma Neurological: oriented x 4, LOC appropriate for age, CN II-XII intact, motor strength equal & normal bilaterally, speech normal Abdomen: Soft, Nontender, Non-distended, + BS Assessment/Plan 1. Acute URI (J06.9: Acute upper respiratory infection, unspecified) - Will do steroids - Will do Zpack given and anti-inflammatory properties to help with number 2. 2. Asthma (J45.998: Other asthma) - Wheezing. - Steroids ordered - Increase rescue inhaler and wean down as needed 3. BMI 28.0-28.9,adult (Z68.28: Body mass index [BMI] 28.0-28.9, adult) - BMI education given Ordered: Body Mass Index (BMI) documented 3008F Current tobacco non-user 1036F Depression Screening Negative 3352F Influenza immunization administered or previously received 4274F Most recent diastolic blood pressure <80 mm Hg 3078F Patient screen for fall risk: no falls in last year or 1 fall with no injury in last year 1101F Systolic BP <130 mm Hg (Most Recent) 3074F 4. Overweight (E66.3: Overweight) - Diet and exercise advised Ordered: Body Mass Index (BMI) documented 3008F Current tobacco non-user 1036F Depression Screening Negative 3352F Influenza immunization administered or previously received 4274F Most recent diastolic blood pressure <80 mm Hg 3078F Patient screen for fall risk: no falls in last year or 1 fall with no injury in last year 1101F Systolic BP <130 mm Hg (Most Recent) 3074F Orders: azithromycin, = 1 packet(s), Oral, As Directed, as directed on package labeling, X 5 day(s), # 6 tab(s), Refills(s) 0, Pharmacy: [facility]/pharmacy #[id number], 148, cm, 07/10/23 10:38:00 EDT, Height/Length Dosing, 62, kg, 07/10/23 10:38:00 EDT, Weight Dosing methylPREDNISolone, = 1 packet(s), Oral, As Directed, as directed on package labeling, X 6 day(s), # 21 tab(s), Refills(s) 0, Pharmacy: [facility]/pharmacy #[id number], 148, cm, 07/10/23 10:38:00 EDT, Height/Length Dosing, 62, kg, 07/10/23 10:38:00 EDT, Weight Dosing Follow-up No qualifying data available Problem List/Past Medical History Ongoing Acute URI Asthma Cervical spondylosis Diverticular disease Foot drop [...] Procedure/Surgical History Cataracts, Cholecystectomy, Shoulder replacement. Medications Albuterol (Eqv-ProAir HFA) 90 mcg/inh inhalation aerosol, 2 puff(s), Inhalation, q4hr aspirin, 81 mg, Oral, Daily Atacand 4 mg Tab, 4 mg= 1 tab(s), Oral, Daily, 1 refills azithromycin 250 mg Tab 5-day Dose Pack (Z-Sachin), 1 packet(s), Oral, As Directed celecoxib 200 mg Cap, 200 mg= 1 cap(s), Oral, BID, 1 refills digoxin 125 mcg (0.125 mg) Tab, 125 mcg= 1 tab(s), Oral, Daily, 3 refills ICaps AREDS 2, See Instructions levothyroxine 50 mcg (0.05 mg) Tab, 50 mcg= 1 tab(s), Oral, Daily, 1 refills meclizine 25 mg Tab, 25 mg= 1 tab(s), Oral, q8hr, Self Directed Medrol Dosepack 4 mg Tab, 1 packet(s), Oral, As Directed metoprolol 25 mg ER Tab, 25 mg= 1 tab(s), Oral, Bedtime, 1 refills montelukast 10 mg Tab, 10 mg= 1 tab(s), Oral, Daily, 3 refills ProAir HFA, Inhalation, q6hr, PRN spironolactone 25 mg Tab, 2 (more content not included)... Normal [facility] Comment on above: Result Comment: Elec tronically Signed By: Yaniv De La Garza MD\.br\Date and Time Signed: 07/10/23 11:11 EDT RAD - MISCon 06-30-2023 RAD - MISC [id number] .00TIFF Normal [facility] Ambulatory Visit Summaryon 0 06-27-2023 Ambulatory Visit Summary GERIKHALIFUNA Radha :1940 Visit Date:06/27/2023 Ambulatory Visit Instructions Your [...] Appointments 2023 11:00 AM EDT With: Where: [facility] [place] [facility] [address] [id number]- \.br\ Medications\.br\ What How Much When Instructions\.br\ [...] choosing us for your care.\.br\ \.br\ [facility] Family Medicine Office/Clini c Noteon 06-27-2023 Family [...] ortho when able - Xray ordered. Ordered: [facility] External Ambulatory Referral Orders: methylPREDNISolone, = 1 packet(s), Oral, As Directed, as directed on package labeling, X 6 day(s), # 21 tab(s), Refills(s) 0, Pharmacy: [facility]/pharmacy #[id number], 148, cm, 06/27/23 11:22:00 EDT, Height/Length [...] virus vaccine, inactivated 12/14/2022 Recorded SARS-CoV-2 (COVID-19) mRNAMUL.ORD![id number] 02/10/2022 Recorded influenza virus vaccine, inactivated 12/27/2021 [...] Recorded influenza, whole 01/17/2005 Recorded Normal [facility] Comment on above: Result Comment: Elec tronically [...] under your knee. General instructions ? Take [id number]-qcfwyao and prescription medicines only as told by [...] provider. Document Revised: 08/05/2020 Document Reviewed: 08/05/2020 Elsevier Patient Education ? 2022 [employer] Normal [facility] Physician Referralon 024 Physician Referral [id number] 1.00TIFF Normal [facility] Physician Orderon 04-21-2023 Physician Order [id number] .00TIFF [facility] Consultation Noteon 04-18-19 24 Consultation Note [id number] .00TIFF [facility] 29on 04-13-2023 29 Addended by: TYRONE MONTALVO on: 04/13/2023 10:49 AM Modules accepted: Orders Normal [facility] Office Visiton 04-13-2023 Follow-up visit [id number] Una Gomez 1940 F Date Provider Department Center 04/13/2023 Akua-CYNTHIA PENN MP ORTHO MPORTHO No family history on file Level of Service:57257 PA OFFICE/OUTPATIENT ESTABLISHED MOD MDM 30 MIN Reason for Visit and Comments: Follow-up [028443] - Pt is c/o neck pain that started back in 02/2023. She has had two regimens of steroids, last dose was on this past Monday night. Denies any injury. Denies any pain at this time. Normal [facility] Office Visiton 04-10-2023 Follow-up visit [id number] Una Gomez 1940 F Date Provider Department Center 04/10/2023 Arthur-BERTHA MEZA MP ORTHO MPORTHO No family history on file Level of Service:41944 PA OFFICE/OUTPATIENT ESTABLISHED LOW MDM 20 MIN Reason for Visit and Comments: Pain [136] Pain [136] [facility] Ambulatory Visit Summaryon 0 03-21-2023 Ambulatory Visit [...] Appointments 2023 11:00 AM EDT With: Where: [facility] Normal [address] [id number] \.br\ Medications\.br\ What How Much When Why Instructions\.br\ New predniSONE (predniSONE 20 mg Tab) 1 Tablets By Mouth Every day Hypothyroidism Hypercholesterolemia Primary hypertension BMI 29.0-29.9,adult Over weight Nonsmoker Post-poliomyelitis muscular atrophy Duration: 5 Days Pickup at [facility]/pharmacy #[id number]\.br\ Changed metoprolol (metoprolol 25 mg ER Tab) 1 Tablets By Mouth At bedtime Pickup at [facility]/pharmacy #6177\.br\ Changed spironolactone (spironolactone 25 mg Tab) 1 Tablets By Mouth Every day Pickup at [facility]/pharmacy #6177\.br\ Unchanged candesartan (Atacand 4 mg Tab) 1 Tablets By Mouth Every day Pickup at [facility]/pharmacy #6177\.br\ Unchanged celecoxib (celecoxib 200 mg Cap) 1 Capsules By Mouth 2 times a day as needed for pain Pickup at [facility]/pharmacy #6177\.br\ Unchanged digoxin (digoxin 125 mcg (0.125 mg) Tab) 1 Tablets By Mouth Every day Duration: 90 Days Pickup at [facility]/pharmacy #6177\.br\ Unchanged levothyroxine (levothyroxine 50 mcg (0.05 mg) Tab) 1 Tablets By Mouth Every day Pickup at [facility]/pharmacy #6156\.br\ Unchanged montelukast (montelukast 10 mg Tab) 1 Tablets By Mouth Every day Pickup at [facility]/pharmacy #6179\.br\ Unchanged acetaminophen (Tylenol Extra Strength) 500 Milligram [...] if questions or concerns \.br\ Pharmacy Information\.br\ [facility]/pharmacy #[id number]: [address], [place] [id number] [phone]\.br\ Allergies\.br\ Augmentin (Unknown)\.br\ Diflucan (Unknown)\.br\ sulfa drugs [...] numbers. This can be done either in [place] ([place] or metric measurements. Note that charts and online BMI calculators are available to help you find your BMI quickly and easily without having to do these calculations yourself.\.br\ To calculate your BMI in [place] ([place] measurements:\.br\ \.br\ 1. \.br\ Measure your [...] Disease Control and Prevention: www.cdc.gov\.br\ ? \.br\ [place] Heart [employer]: www.heart.org\.br\ ? \.br\ National Heart, Lung, and Blood [place]: www.nhlbi.nih.gov\.br \ Summary\.br\ ? \.br\ Body mass index (BMI) is a number that is calculated from a person's weight and height.\.br\ ? \.br\ BMI may help estimate how much of a person's weight is composed of fat. BMI can help identify those who may be at higher risk for certain medical problems.\.br\ ? \.br\ BMI can be measured aline [facility] Family Medicine Office/Clini c Noteon 03-21-2023 Family Medicine Office/Clinic Note HPI Staff [...] [facility] ( not the symbicort, senior marketing data analyst refills that) Acute thinks she did something [...] shoulder surgery by Dr. Arriaza at the [facility]. She never had any pain after the [...] day(s), # 5 tab(s), Refills(s) 0, Pharmacy: [facility]/pharmacy #6177, 148, cm, 03/21/23 8:51:00 EST, Height/Length [...] day(s), # 5 tab(s), Refills(s) 0, [id number] 148, cm, 03/21/23 8:51:00 EST, Height/Length [...] day(s), # 5 tab(s), Refills(s) 0, Pharmacy: [facility]/pharmacy #6177, 148, cm, 03/21/23 8:51:00 EST, Height/Length Dosing, 64, kg, 03/21/23 8:51:00 EST, Weight Dosing Body Mass Index (BMI) documented 3008F Current tobacco non-user 1036F Depression Screening Negative 3352F Influenza immunization administered or previously received 4274F Most r (more content not included)... Normal [facility] Comment on above: Result Comment: Elec [...] numbers. This can be done either in [place] ([place] or metric measurements. Note that charts and online BMI calculators are available to help you find your BMI quickly and easily without having to do these calculations yourself. To calculate your BMI in [place]ese ([place] measurements: 1. Measure your weight in [...] for Disease Control and Prevention: www.cdc.gov ? [place] Heart [employer]: www.heart.org ? National Heart, Lung, and Blood [place]: www.nhlbi.nih.gov Summary ? Body mass index (BMI) is a number that is calculated from a person's weight and height. ? BMI may help estimate how much of a person's weight is composed of fat. BMI can help identify those who may be at higher risk for certain medical problems. ? BMI can be measured using [place]ese measurements or metric measurements. ? BMI charts are used to identify whether you are underweight, normal weight, overweight, or obese. This information is not intended to replace advice given to you by your health care provider. Make sure you discuss any questions you have with your health care provider. Document Revised: 11/13/2019 Document Reviewed: 09/20/2019 [employer] Patient Education ? 2022 [employer]. [facility] Retail - Clinical Noteon Retail - Clinical Note [id number] .00TIFF [facility] Ambulatory Visit Summaryon 1 Ambulatory Visit Summary [...] With: Yaniv De La Garza MD Where: [facility] Normal [address] [place], [place] [address]- \.br\ Medications\.br\ What How Much When Instructions\.br\ [...] for choosing us for your care.\.br\ \.br\ [facility] Medicine Office/Clini c Noteon 03-03-2023 Family Medicine [...] turns into pneumonia. will treat with z sachin, medrol dose pack and tessalon pearls. samples [...] day(s), # 6 tab(s), Refills(s) 0, [id number], 148, cm, 03/03/23 13:51:00 EST, Height/Length Dosing, 64.1, kg, 03/03/23 13:51:00 EST, Weight Dosing benzonatate, 200 mg = 1 cap(s), Oral, TID, X 7 day(s), # 21 cap(s), Refills(s) 0, [facility], 148, cm, 03/03/23 13:51:00 EST, Height/Length Dosing, 64.1, kg, 03/03/23 13:51:00 EST, Weight Dosing 4. Non-smoker (Z78.9: Other specified health status) continue not smoking Ordered: azithromycin, = 1 packet(s), Oral, As Directed, as directed on package labeling, X 5 day(s), # 6 tab(s), Refills(s) 0, [facility], 148, cm, 03/03/23 13:51:00 EST, Height/Length Dosing, 64.1, kg, 03/03/23 13:51:00 EST, Weight Dosing benzonatate, 200 mg = 1 cap(s), Oral, TID, X 7 day(s), # 21 cap(s), Refills(s) 0, Pharmacy: [facility]/pharmacy #6177, 148, cm, 03/03/23 13:51:00 EST, Height/Length Dosing, 64.1, kg, 03/03/23 13:51:00 EST, Weight Dosing 5. Cerumen impaction (H61.20: Impacted cerumen, unspecified ear) pt encouraged to get debrox ear drops and use for 1 week then make nurse visit appointment for irrigation Orders: methylPREDNISolone, = 1 packet(s), Oral, Once, as directed on package labeling, # 21 tab(s), Refills(s) 0, Pharmacy: [facility]/pharmacy #6177, 148, cm, 03/03/23 13:51:00 EST, Height/Length [...] metoprolol 25 m (more content not included)... [facility] Comment on above: Result Comment: Elec tronically Signed By: Marlee Martinez\.br\Date and Time Signed: 03/03/23 15:50 EST Consultation Noteon 24-20 23 Consultation Note [id number] .00TIFF [facility] Immunization Recordson 12-20 Immunization Records [id number] .00TIFF [facility] Discharge Note - PTon 2022 Discharge Note - PT [id number] .00TIFF [facility] Plan of Care - PT/OT/Speecho n 11-28-2022 Plan of Care - PT/OT/Speech [id number] .00CD:127 [facility] Office Visiton 10-20-2022 Follow-up visit [id number] Una Gomez 1940 F Date Provider Department Center 10/20/2022 [id number]-INJUQLEJSSHAHBAZ [facility] No family history on file Level of Service:68812 PA OFFICE/OUTPATIENT ESTABLISHED LOW MDM 20-29 MIN Reason for Visit and Comments: Follow-up [916068] - Yearly follow up - go over echo results Normal [facility] Physician Referralon 023 Physician Referral [id number]. 00CD:127 Normal [facility] Discharge Note - PTon 2022 Discharge Note - PT [id number] .00CD:127 [facility] Dexa Scanson 09-27[birth year]2022 Dexa Scans [id number] .00CD:127 [facility] Dexa Scanson [birth year]-26[birth year]2022 Dexa Scans [id number] .00CD:127 [facility] Family Medicine Office/Clini c Noteon 09-22-2022 [...] to see what (more content not included)... [facility] Comment on above: Result Comment: Elec tronically Signed By: Yaniv De La Garza MD\.br\Date and Time Signed: 09/22/22 12:58 EDT\.br\Electronically Co-Signed By: Anneliese Anguiano\.br\Date and Time Co-Signed: 09/19/22 12:41 EDT\.br\Electronically Co-Signed By: Anneliese Anguiano\.br\Date and Time Co-Signed: 09/19/22 12:42 EDT Physician Referralon 023 Physician Referral [id number] .00CD:127 [facility] RAD - Ultrasound Reporton RAD - Ultrasound Report [id number] .00CD:127 [facility] PT - Progress Noteson 2022 PT - Progress Notes [id number] .00CD:127 [facility] CHEMISTRYOrdered By: SYSTEM SYSTEM on 09-09-2022 Albumin [...] rate/Area] 73 mL/min/1.73 m2 Normal >=59mL/min/1.73 m2 [facility] Chem S Globulin (S) [Mass/Vol] 2.8 g/dL [...] 13 mg/dL Normal 5 - 21 mg/dL [facility] Remisol Urea nitrogen/Creatini ne [Mass ratio] 16 mg/mg Normal 10 - 20 [facility] Remisol Covid-19 PCR ([facility])on SARS-CoV-2 (COVID-19) RNA JESSIE+probe Ql (Unsp spec) Detected Critically abnormal NOT DETECTED [facility] Comment on above: Result Comment: This test is not yet approved or cleared by the [place] FDA. When there are no FDA-approved or cleared tests available, and other criteria are met, FDA can make tests available under an emergency access mechanism called an Emergency Use Authorization (EUA). The EUA for this test is supported by the Marriage And Family Counselor of Health and Human Service's declaration that [...] longer be used). Performed By: #### [facility] #### [facility] [address] [place] [address] Dr. Josie Bauman ECHOCARDIO M/2D COMPLETEon 0 07-19-2021 ECHOCARDIO M/2D COMPLETE Patient: UNA GOMEZ Exam Date: 07/19/2021 : 1940 Gender:F Ordering : DR SHRUTHI MONTERROSO . Admission #: [id number] Family : Order #: [id number] CLICK HERE TO VIEW EXAM ECHOCARDIOGRAM REPORT [...] Area(A2C): 14.80 cm2 Left Atrium Systolic Volume(A2C): 01147 mm3 Mitral Valve MV E to A [...] Naylor M.D. on 07/19/2021 at 18:28 Normal [facility] KNEE LEFT 3 Son 07-16-2020 KNEE LEFT 3 S [facility] Department of Radiology [address] [place] [address] Patient Name: UNA GOMEZ : 1940 Sex: F Age: Race: White Pt. Location: Patient Status: D Ordered Date: 07/16/2020 2:00:00 PM Completed Date: 07/16/2020 01:59 PM Requesting Provider: NICOLLE JAY Attending Provider: Report Copy To: Signs & Symptoms: M25.561 Pain in right knee I10 History: [place] Comments: , , , Ordering Provider - NICOLLE JAY MD , Exam: KNEE LEFT 3 [facility] KNEE LEFT 3 S 07/16/2020 1:59 PM [...] findings. Electronically signed: Trell Amado. Transcribed by: [email or web address], User Resident: TRELL AMADO Electronically Signed by: TRELL AMADO @ 07/17/2020 10:46 AM I personally read this/these film(s) with this resident Normal [facility] Comment on above: Order Comment: , , = ========= , Ordering Provider - NICOLLE JAY MD , KNEE RIGHT 3 Son 1 KNEE RIGHT 3 S [facility] Department of Radiology [address] [place] [id number] Patient Name: UNA GOMEZ : 1940 Sex: F Age: Race: White Pt. Location: Patient Status: D Ordered Date: 07/16/2020 2:00:00 PM Completed Date: 07/16/2020 01:59 PM Requesting Provider: NICOLLE JAY Attending Provider: Report Copy To: Signs & Symptoms: M25.561 Pain in right knee I10 History: [place] Comments: , , , Ordering Provider - NICOLLE JAY MD , Exam: KNEE RIGHT 3 VWS KNEE RIGHT 3 VWS 07/16/2020 1:59 PM [...] remodeling. Electronically signed: Trell Amado. Transcribed by: [email or web address], User Resident: TRELL AMADO Electronically Signed by: TRELL AMADO @ 07/17/2020 08:46 AM I personally read this/these film(s) with this resident Normal [facility] Comment on above: Order Comment: , , = ========= , Ordering Provider - NICOLLE JAY MD , HIPS BILATERAL 2 VWS WITH PE LVISon 07-06-2020 HIPS BILATERAL 2 VWS WITH PELVIS [facility] Department of Radiology [address] [place] [id number] Patient Name: UNA GOMEZ : 1940 Sex: F Age: Race: White Pt. Location: 84 Patient Status: O Ordered Date: 07/06/2020 1:25:00 PM Completed Date: 07/06/2020 01:28 PM Requesting Provider: BERTHA MEZA Attending Provider: BETRHA MEZA Report Copy To: SHRUTHI MONTERROSO Signs [...] changes. Electronically signed: Lincoln Brooke. Transcribed by: [email or web address], User Resident: Electronically Signed by: LINCOLN BROOKE @ 07/06/2020 02:00 PM Normal [facility] Comment on above: Order Comment: evalu ate Operative Reporton Operative Report MR#: [id number] I [facility] Pt. Name: Una Gomez Room #: [id number] Discharge 04/15/2020 Date: Birthdate: 1940 OPERATIVE REPORT DATE OF SURGERY: 04/14/2020 SURGEON: Bertha Meza MD FACULTY HEAD: Bruno Schafer MD. 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 Normal [facility] HEMOGLOBINon 04-14-2020 Hemoglobin (Bld) [Mass/Vol] 12.7 g/dL Normal 12.0-15.0 [facility] Comment on above: Order Comment: No: D o not add to previous draw Performed By: #### [id number] #### [facility] [address] [place] [address], [facility] POC GLUCOSE LABon 04-14-2020 Glucose [Mass/Vol] 97 mg/dL Normal 70-100 [facility] Comment on above: Performed By: #### [id number] #### [address] [address], [facility] PORTABLE SHOULDER LEFT 2 VWS on 04-14-2020 PORTABLE SHOULDER LEFT 2 VWS [facility] Department of Radiology [address] [place] [id number] Patient Name: UNA GOMEZ : 1940 Sex: F Age: Race: White Pt. Location: [place] [address] Patient Status: I Ordered Date: 04/14/2020 5:10:00 PM Completed Date: 04/14/2020 05:37 PM Requesting Provider: BRUNO SCHAFER Attending Provider: BERTHA MEZA Report Copy To: Signs & Symptoms: Pain History: Comments: Hardware Evaluation, in PACU Exam: PORTABLE SHOULDER LEFT 2 VWS PORTABLE SHOULDER LEFT 2 VWS 04/14/2020 5:37 [...] failure Electronically signed: Andres Ingram. Transcribed by: [email or web address], User Resident: ANDRES INGRAM Electronically Signed by: ANDRES INGRAM @ 04/14/2020 06:12 PM I personally read this/these film(s) with this resident Normal [facility] Comment on above: Order Comment: Hardw are Evaluation, in PACU Vital Signs Date Time Vital Sign Value Performing Clinician Facility 02-07-2023 15:15-0500 Body height 149.86 cm Imad Asaad Other [facility] Other 02-07-2023 15:15-0500 Body mass index (BMI) [Ratio] 27.87 kg/m2 Imad Asaad Other [facility] Other 02-07-2023 15:15-0500 Body weight 62.6 kg Imad Asaad Other [facility] Other 02-07-2023 15:15-0500 Diastolic blood pressure 63 mm[Hg] Imad Asaad Other [facility] Other 02-07-2023 15:15-0500 Systolic blood pressure 129 mm[Hg] Imad Asaad Other [facility] Other 12-13-2022 14:15-0400 Body height 149.86 cm Imad Asaad Other [facility] Other 12-13-2022 14:15-0400 Body mass index (BMI) [Ratio] 29.28 kg/m2 Imad Asaad Other [facility] Other 12-13-2022 14:15-0400 Body weight 65.77 kg Imad Asaad Other [facility] Other 12-13-2022 14:15-0400 Diastolic blood pressure 63 mm[Hg] Imad Asaad Other [facility] Other 12-13-2022 14:15-0400 Systolic blood pressure 140 mm[Hg] Imad Asaad Other [facility] Other Encounters Encounter Date Encounter Type Care Provider Facility Start: 09-09-2024 ambulatory Yaniv De La Garza Facility :[facility] Start: 02-13-2024 ambulatory MD Yaniv De La Garza [facility] ity:[facility] Start: 09-19-2023 End: 09-19-2023 ambulatory Yaniv De La Garza Facility:[facility] Start: 09-18-2023 End: 09-18-2023 Lab Drop off Yaniv De La Garza [facility] Start: 09-18-2023 End: 09-18-2023 ambulatory Yaniv De La Garza Facility:[facility] [place] [facility] Start: 09-14-2023 End: 09-14-2023 ambulatory Marlee Malcolm Facility:[facility] [place] [facility] Start: 08-02-2023 End: 08-02-2023 ambulatory OTTONIEL LOUISE Not Available Start: 07-19-2023 End: 07-19-2023 ambulatory OTTONIEL LOUISE Not Available Start: 07-19-2023 End: 07-19-2023 ambulatory LEA WALLACE Facility:[facility] Start: 07-10-2023 End: 07-10-2023 ambulatory Yaniv De La Garza Facility:[facility] [place] [facility] Start: 06-27-2023 End: 06-27-2023 ambulatory Yaniv De La Garza Facility:[facility] [place] [facility] Start: 04-13-2023 End: 04-13-2023 ambulatory CYNTHIA SUTTONBrandin [facility] Start: 04-10-2023 End: 04-11-2023 ambulatory [facility] Start: 03-22-2023 End: 03-22-2023 ambulatory OTTONIEL LOUISE Not Available Start: 03-21-2023 End: 03-21-2023 ambulatory Yaniv Toshia De La Garza Facility:[facility] Start: 03-03-2023 End: 03-03-2023 ambulatory Marlee L Yun Facility:[facility] Start: 02-07-2023 End: 02-07-2023 ambulatory Imad Asaad Other [facility] [employer] Other Start: 02-07-2023 Office outpatient ne w 45 minutes Imad Asaad [facility] Start: 12-27-2022 End: 12-27-2022 ambulatory Imad Asaad Facility:[facility] Start: 12-26-2022 ambulatory Yaniv ELynn De La Garza Facility :[place] Start: 12-13-2022 End: 12-13-2022 ambulatory Imad Asaad Other [facility] [employer] Other Start: 12-13-2022 Office outpatient ne w 45 minutes Imad Asaad [facility] Start: 10-20-2022 End: 10-20-2022 ambulatory [facility] Start: 10-12-2022 ambulatory Yaniv Francisco Facility: [facility] Start: 09-19-2022 End: 09-19-2022 ambulatory Yaniv De La Garza Facility:[facility] Start: 09-09-2022 End: 09-09-2022 Lab Drop off Marlee L Yun [facility] Start: 06-08-2022 End: 06-09-2022 ambulatory CASEY GARSIA Facility:[facility] Start: 03-03-2022 End: 03-04-2022 ambulatory CASEY GARSIA Facility:[facility] Start: 01-03-2022 End: 01-04-2022 ambulatory TAISHA EATON Facility:[facility] Start: 12-22-2021 End: 02-10-[address] SHRUTHI Bailey Facility:[facility] Start: 11-29-2021 End: 11-30-2021 ambulatory CASEY GARSIA Facility:[facility] Start: 09-07-2021 End: 09-07-[address] SHRUTHI MONTERROSO . Facility:[facility] Start: 08-27-2021 End: 08-28-2021 ambulatory CASEY GARSIA Facility:[facility] Start: 07-19-2021 End: 07-20-[address] SHRUTHI MONTERROSO . Facility:[facility] Start: 04-14-2020 End: 04-15-2020 Evaluation and management of inpatient SHRUTHI MONTERROSO Facility:[facility] Procedures Date Procedure Procedure Detail Performing [...] Marlee Yun Comment on above: right 2019 Immunizations Immunization Date Immunization Notes Care Provider Analisa navarrete 12-14-2022 influenza virus vacc ine, unspecified formulation Yaniv De La Garza [facility] 02-10-2022 SARS-CoV-2 (COVID-19 ) [id number] Marlee Yun [facility] 12-27-2021 influenza virus vacc ine, unspecified formulation Marlee Yun [facility] 03-17-2021 SARS-CoV-2 (COVID-19 ) mRNA-1273 vaccine Marlee Yun [facility] Comment on above: Result Comment: 2022: [id number] 02-10-2021 influenza virus vacc ine, unspecified formulation Marlee Yun [facility] 09-11-2020 pneumococcal polysaccharide vaccine, 23 valent Marlee Yun [facility] 05-05-2020 SARS-CoV-2 (COVID-19 ) mRNA-1273 vaccine Marlee Yun [facility] 04-07-2020 SARS-CoV-2 (COVID-19 ) mRNA-1273 vaccine Marlee Yun [facility] 09-12-2019 pneumococcal conjuga te vaccine, 13 valent Marlee Yun [facility] 02-01-2019 influenza virus vacc ine, unspecified formulation Marlee Yun [facility] 01-30-2018 influenza virus vacc ine, unspecified formulation Marlee Yun [facility] 03-04-2016 influenza virus vacc ine, unspecified formulation Marlee Yun [facility] 03-18-2015 influenza virus vacc ine, unspecified formulation Marlee Yun [facility] 01-17-2005 influenza, whole Marlee Yun [facility] Payers Date Payer Category Payer Self-pay 1961 Medicare [id number] 1940 Unknown [id number] 2.16.8 40.1.514879.3.579.2.647 1940 Unknown [id number] 2.16.84 0.1.073165.3.579.2.593 1940 Unknown [id number] 2.16.84 0.1.462224.3.579.2.593 1940 Unknown [id number] 2.16.84 0.1.407857.3.579.2.593 1940 Unknown [id number] 2.16.84 0.1.007276.3.579.2.593 1940 Unknown [id number] 2.16.84 0.1.941970.3.579.2.593 1940 Unknown [id number] 2.16.84 0.1.135488.3.579.2.593 1940 Unknown [id number] 2.16.84 0.1.084579.3.579.2.593 1940 Unknown [id number] 2.16.84 0.1.524238.3.579.2.593 1940 Unknown [id number] 2.16.84 0.1.329830.3.579.2.1259 1940 Unknown [id number] 2.16.84 0.1.593470.3.579.2.1259 1940 Unknown [id number] 2.16.84 0.1.062879.3.579.2.1259 1938 Unknown [id number] 2.16.8 40.1.419585.3.579.2.727 1940 Unknown [id number] 2.16.8 40.1.041624.3.579.2.727 1940 Unknown [id number] 2.16.8 40.1.746888.3.579.2.727 1940 Unknown [id number] 2.16.8 40.1.910630.3.579.2.727 1938 Unknown [id number] 2.16.8 40.1.955974.3.579.2.727 1938 Unknown [id number] 2.16.8 40.1.988133.3.579.2.727 1938 Unknown [id number] 2.16.8 40.1.716086.3.579.2.727 1940 Unknown [id number] 2.16.8 40.1.113124.3.579.2.72 1940 Unknown [id number] 2.16.8 40.1.094132.3.579.2.727 1940 Unknown [id number] 2.16.8 40.1.829185.3.579.2.727 1940 Unknown [id number] 2.16.8 40.1.599801.3.579.2.727 1940 Unknown [id number] 2.16.8 40.1.528052.3.579.2.727 1940 Unknown [id number] 2.16.8 40.1.765123.3.579.2.727 Private Health Insurance [facility] [id number] Unknown [id number] 2.16.8 40.1.364362.3.579.2.531 Social History Date Type Detail Facility Start: 09-08-2022 End: 07-19-2023 Tobacco smoking status Never smoked tobacco (finding) [facility] Tobacco smoking status Never [facility] Sex Assigned At Female [facility] Clinical Notes 04-22-2020 to 09-19-2023 Note Date & Type Note Facility 09-19-2023 Note Patient Education Nutrition BMI for Adults What [...] numbers. This can be done either in [place] ([place] or metric measurements. Note that charts and online BMI calculators are available to help you find your BMI quickly and easily without having to do these calculations yourself. To calculate your BMI in [place] ([place] measurements: 1. Measure your weight in [...] for Disease Control and Prevention: www.cdc.gov ? [place] Heart Association: www.heart.org ? National Heart, Lung, and Blood [place]: www.nhlbi.nih.gov Summary ? Body mass index (BMI) is a number that is calculated from a person's weight and height. ? BMI may help estimate how much of a person's weight is composed of fat. BMI can help identify those who may be at higher risk for certain medical problems. ? BMI can be measured using [place] measurements or metric measurements. ? BMI charts are used to identify whether you are underweight, normal weight, overweight, or obese. This information is not intended to replace advice given to you by your health care provider. Make sure you discuss any questions you have with your health care provider. Document Revised: 11/13/2019 Document Reviewed: 09/20/2019 [employer] Patient Education ? 2022 [employer]. [facility] 09-14-2023 Note Patient Education Mental and Behavioral Health Managing Depression, Adult Depression is a mental health condition that affects your thoughts, feelings, and actions. Being diagnosed with depression can bring you relief if you did not know why you have felt or behaved a certain way. It could also leave you feeling overwhelmed with uncertainty about your future. Preparing yourself to manage your symptoms can help you feel more positive about your future. How to manage lifestyle changes Managing stress Stress is your body's reaction to life changes and events, both good and bad. Stress can add to your feelings of depression. Learning to manage your stress can help lessen your feelings of depression. Try some of the following approaches to reducing your stress (stress reduction techniques): ? Listen to music that you enjoy and that inspires you. ? Try using a meditation charity or take a meditation class. ? Develop a practice that helps you connect with your spiritual self. Walk in nature, pray, or go to a place of mosque. ? Do some deep breathing. To do this, inhale slowly through your nose. Pause at the top of your inhale for a few seconds and then exhale slowly, letting your muscles relax. ? Practice yoga to help relax and work your muscles. Choose a stress reduction technique that suits your lifestyle and personality. These techniques take time and practice to develop. Set aside 5?15 minutes a day to do them. Therapists can offer training in these techniques. Other things you can do to manage stress include: ? Keeping a stress diary. ? Knowing your limits and saying no when you think something is too much. ? Paying attention to how you react to certain situations. You may not be able to control everything, but you can change your reaction. ? Adding humor to your life by watching funny films or TV shows. ? Making time for activities that you enjoy and that relax you. Medicines Medicines, such as antidepressants, are often a part of treatment for depression. ? Talk with your pharmacist or health care provider about all the medicines, supplements, and herbal products that you take, their possible side effects, and what medicines and other products are safe to take together. ? Make sure to report any side effects you may have to your health care provider. Relationships Your health care provider may suggest family therapy, couples therapy, or individual therapy as part of your treatment. How to recognize changes Everyone responds differently to treatment for depression. As you recover from depression, you may start to: ? Have more interest in doing activities. ? Feel less hopeless. ? Have more energy. ? Overeat less often, or have a better appetite. ? Have better mental focus. It is important to recognize if your depression is not getting better or is getting worse. The symptoms you had in the beginning may return, such as: ? Tiredness (fatigue) or low energy. ? Eating too much or too little. ? Sleeping too much or too little. ? Feeling restless, agitated, or hopeless. ? Trouble focusing or making decisions. ? Unexplained physical complaints. ? Feeling irritable, angry, or aggressive. If you or your family members notice these symptoms coming back, let your health care provider know right away. Follow these instructions at home: Activity ? Try to get some form of exercise each day, such as walking, biking, swimming, or lifting weights. ? Practice stress reduction techniques. ? Engage your mind by taking a class or doing some volunteer work. Lifestyle ? Get the right amount and quality of sleep. ? Cut down on using caffeine, tobacco, alcohol, and other potentially harmful substances. ? Eat a healthy diet that includes plenty of vegetables, fruits, whole grains, low-fat dairy products, and lean protein. Do not eat a lot of foods that are high in solid fats, added sugars, or salt (sodium). General instructions ? Take jqja-xmf-htdwbmc and prescription medicines only as told by your health care provider. ? Keep all follow-up visits as told by your health care provider. This is important. Where to find support Talking to others Friends and family members can be sources of support and guidance. Talk to trusted friends or family members about your condition. Explain your symptoms to them, and let them know that you are working with a health care provider to treat your depression. Tell friends and family members how they also can be helpful. Finances ? Find appropriate mental health providers that fit with your financial situation. ? Talk with your health care provider about options to get reduced prices on your medicines. Where to find more information You can find support in your area from: ? Anxiety and Depression Association of [place] (ADAA): www.adaa.org ? Mental Health [place]: www.ga (more content not included)... 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 Repeat fibroscan in 1 yr Rto 1 yr [facility] Other 10-10-2023 Evaluation note* Encounter Date Diagnosis Assessment Notes Treatment Notes Treatment Clinical Notes Dec, RUQ pain (ICD-10 - R10.11) [facility] Other 08-17-2023 NoteCardiology Clinic Note Subjective Una [...] In 2014 she was admitted to [facility] with shortness of breath. Her echocardiogram showed [...] bundle branch block. Pr (more content not included)...[facility]02-17-2021 NoteMR#: [id number] I [facility] Pt. 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 SECONDARY DIAGNOSIS: None. HOSPITAL COURSE: The patient came to the [facility] for left reverse total shoulder arthroplasty [...] Schafer MD Date Trans: 04/22/2020 06:23 P/vicky [id number] cc: Shruthi Monterroso M.D. [address] [place] [id number] Future Appointments Appointment Date:09/19/2022 10:40:00 AM Scheduled Provider:Yaniv De La Garza MD [facility] App[facility] Type:FM Open Appointment Date:09/14/2023 11:00:00 AM Scheduled Provider: Location:[facility] [place] Appointment Type:FM [facility] Future Appointments Appointment Date:09/19/2023 10:00:00 AM Scheduled Provider:Yaniv De La Garza MD [facility] Appointment Type:FM Open Appointment Date:09/09/2024 11:00:00 AM Scheduled Provider: Location:[facility] Appointment Type: Medicare Wellness [facility] - Reported* Type Description Date Medical History ASTHMA Medical History VERTIGO Medical History ESOPHAGEAL STRICTURE Surgical History SHOULDER REPLACEMENT Surgical History CHOLECYSTECOMY Hospitalization History SEE ABOVE [facility] Other Hospital course Narrative No data available for this section [facility] No data available for this section [facility] No data available for this section [facility] Summary Purpose Family History No Family History Records FoundNo Family History Records FoundNo Family History Records FoundNo Family History Records FoundNo Family History Records FoundNo Family History Records Found No data available for this section No Family History Records FoundNo Family History [...] section and content) DATE CREATED AUTHOR 04/11/2021 [facility] DATE CREATED AUTHOR AUTHOR'S ORGANIZ ATION 07/07/2022 [facility] DATE CREATED AUTHOR AUTHOR'S ORGANIZ ATION 01/08/2023 [facility] DATE CREATED AUTHOR AUTHOR'S ORGANIZ ATION 04/14/2023 [facility] DATE CREATED AUTHOR AUTHOR'S ORGANIZ ATION 08/03/2023 [facility] dical Specialists [facility] DATE CREATED AUTHOR AUTHOR'S ORGANIZ ATION 09/20/2023 [facility] DATE CREATED AUTHOR AUTHOR'S ORGANIZ ATION 09/22/2023 [facility] DATE CREATED AUTHOR AUTHOR'S ORGANIZ ATION 09/26/2023 [facility] Patient Care team informatio n (unrecognized section and content) Personnel Name: Yaniv De La Garza MD Address: Address: [facility] [place], [place] [address] Personnel Name: Yaniv De La Garza MD Address: Address: [address] [place] [address]- REASON FOR VISIT (unrecogniz ed section and [...] BE BASED ON THE PRIMARY CLINICAL RECORDS. [facility] [employer] [facility]. provides no warranty or guarantee of the accuracy or completeness of information in this document.
== END 2023-10-04 16:12 | disposition home or self-care (01) ==
LOC: WC 16:11
PROVIDERS: PCP Family Medicine; Visit Provider Podiatrist Foot & Ankle Surgery
DX: L60.3 Nail dystrophy (principal)
CPT/HCPCS: G0463

== ENCOUNTER 2024-01-25 15:28 | Outpatient (OUT) | payer MEDICARE, SELFPAY | END 2024-01-25 15:29 | disposition home or self-care (01) | LOC: WC 15:28 | PROVIDERS: PCP Family Medicine; Visit Provider Physician Assistant | DX: L60.3 Nail dystrophy (principal); I73.89 Other specified peripheral vascular diseases | CPT/HCPCS: 11721 ==

== ENCOUNTER 2024-02-15 15:15 | Outpatient (OUT) | payer MEDICARE, SELFPAY | END 2024-02-15 15:16 | disposition home or self-care (01) | LOC: WC 15:15 | PROVIDERS: PCP Family Medicine; Visit Provider Physician Assistant | DX: L84 Corns and callosities (principal); I73.89 Other specified peripheral vascular diseases | CPT/HCPCS: G0463 ==

== ENCOUNTER 2024-04-22 15:16 | Outpatient (OUT) | payer MEDICARE, SELFPAY | END 2024-04-22 15:17 | disposition home or self-care (01) | LOC: WC 15:16 | PROVIDERS: PCP Family Medicine; Visit Provider Physician Assistant | DX: I73.89 Other specified peripheral vascular diseases (principal); G99.0 Autonomic neuropathy in diseases classified elsewhere; L60.3 Nail dystrophy | CPT/HCPCS: 11721 ==

== ENCOUNTER 2024-05-13 09:41 | Emergency (ER) | payer MEDICARE, SELFPAY ==
[2024-05-13 09:48] VITALS: BP 134/84; PULSE 85; TEMP 36.5; O2SAT 96; BMI 26.3
--- NOTE | 2024-05-13 09:55 | ED_ITS ---
HPI HPI - General Adult General Chief complaint: Extremity Problem, Nontraumatic Stated complaint: RIGHT FOOT PAIN Time Seen by Provider: 05/13/24 09:44 Source: patient Mode of arrival: walk-in Limitations: no limitations History of Present Illness HPI narrative: 84-year-old female presents because she has a callus on her right fifth toe and she wanted it filed down. It has been hurting for a few weeks and she sees a composite laminator. That office is closed this week and she was referred to another 1 nearby and she has an appointment tomorrow morning but she did not want to wait. There has been no injury to her foot or toe. Related Data Home Medications ?Medication ?Instructions ?Recorded ?Confirmed acetaminophen 500 mg tablet 500 mg PO BID PRN pain 08/05/22 08/05/22 (Tylenol Extra Strength) aspirin 81 mg capsule 81 mg PO DAILY 08/05/22 08/05/22 budesonide-formoterol HFA 80 2 inh inhalation BID 08/05/22 08/05/22 mcg-4.5 mcg/actuation aerosol inhaler (Symbicort) calcium carbonate (Antacid 200 mg PO DAILY 08/05/22 08/05/22 (calcium carbonate)) candesartan 4 mg tablet (Atacand) 4 mg PO DAILY 08/05/22 08/05/22 celecoxib 200 mg capsule (Celebrex) 200 mg PO BID 08/05/22 08/05/22 digoxin 125 mcg (0.125 mg) tablet 125 mcg PO DAILY 08/05/22 08/05/22 (Digitek) levothyroxine 50 mcg tablet 50 mcg PO DAILY 08/05/22 08/05/22 (Euthyrox) metoprolol tartrate 25 mg tablet 25 mg PO .hs 08/05/22 08/05/22 montelukast 10 mg tablet 10 mg PO DAILY 08/05/22 08/05/22 (Singulair) pro-air inhaler 08/05/22 spironolactone 25 mg tablet 25 mg PO DAILY 08/05/22 08/05/22 (Aldactone) vit C 250 mg-vit E 90 mg-zinc 40 1 tab PO BID 08/05/22 08/05/22 mg-copper 1 ce-sbwocn-drphse capsule (PreserVision AREDS-2) Allergies Allergy/AdvReac Type Severity Reaction Status Date / Time Sulfa (Sulfonamide Allergy Mild Nausea Verified 08/05/22 13:18 Antibiotics) Opioid HPI Opioid Management Most Recent Opioid Data: No Data to Display Review of Systems ROS Narrative A ten point review of systems is negative except as noted above. PFSH PFS Medical History (Updated 05/13/24 @ 09:55 by Samuel Cheng MD) Osteoarthritis ?M19.90 - Unspecified osteoarthritis, unspecified site (ICD-10) Hypothyroid ?E03.9 - Hypothyroidism, unspecified (ICD-10) Asthma ?J45.909 - Unspecified asthma, uncomplicated (ICD-10) Irregular heart beat ?I49.9 - Cardiac arrhythmia, unspecified (ICD-10) Hypertension ?I10 - Essential (primary) hypertension (ICD-10) Surgical History (Updated 08/05/22 @ 13:31 by Dominique Castellanos) History of cholecystectomy ?Z90.49 - Acquired absence of other specified parts of digestive tract (ICD- 10) History of arthroplasty of left shoulder ?Z96.612 - Presence of left artificial shoulder joint (ICD-10) History of arthroplasty of right shoulder ?Z96.611 - Presence of right artificial shoulder joint (ICD-10) Status post tonsillectomy and adenoidectomy ?Z90.89 - Acquired absence of other organs (ICD-10) Social History Little interest or pleasure in doing things: not at all Feeling down, depressed, or hopeless: not at all Exam Narrative Exam Narrative: Nurses note and vital signs reviewed and patient is not hypoxic. General: The patient appears well and in no apparent distress. Patient is resting comfortably on cart. Skin: Warm, dry, no pallor noted. There is no rash noted. Head: Normocephalic, atraumatic Eye: Normal conjunctiva, no drainage Ears, Nose, Mouth, and Throat: oral mucosa is moist. Nares patent. Cardiovascular: Regular Rate and Rhythm Respiratory: Patient is in no distress, no accessory muscle use, lungs are clear to auscultation, no wheezing, rales or rhonchi Back: non-tender GI: Nontender Musculoskeletal: The right fifth toes examined. There is a small callus on the lateral aspect of it. There is no erythema open area or drainage and there is no wart present. Neurological: A&O, normal speech Psychiatric: Cooperative Constitutional Vital Signs, click to edit/add: Last Vital Signs Temp 97.7 F 05/13/24 09:48 Pulse 85 05/13/24 09:48 Resp 20 05/13/24 09:48 BP 134/84 05/13/24 09:48 Pulse Ox 96 05/13/24 09:48 O2 Del Method Room Air 05/13/24 09:48 Course Vital Signs Vital signs: Vital Signs Temperature 97.7 F 05/13/24 09:48 Pulse Rate 85 05/13/24 09:48 Respiratory Rate 20 05/13/24 09:48 Blood Pressure 134/84 05/13/24 09:48 Pulse Oximetry 96 05/13/24 09:48 Oxygen Delivery Method Room Air 05/13/24 09:48 Temperature 97.7 F 05/13/24 09:48 Pulse Rate 85 05/13/24 09:48 Respiratory Rate 20 05/13/24 09:48 Blood Pressure 134/84 05/13/24 09:48 Pulse Oximetry 96 05/13/24 09:48 Oxygen Delivery Method Room Air 05/13/24 09:48 Medical Decision Making MDM Narrative Medical decision making narrative: My clinical impression is that she has a callus and she will need to have this addressed by podiatry at her appointment tomorrow morning. Differential Diagnosis Differential Diagnosis: Callus Discharge Plan Discharge Chief Complaint: Extremity Problem, Nontraumatic Clinical Impression: Callus of foot Patient Disposition: Home, Self-Care Time of Disposition Decision: 09:53 Condition: Good Mode of Transportation: Private Vehicle Prescriptions / Home Meds: No Action digoxin [Digitek] 125 mcg (0.125 mg) tablet 125 mcg PO DAILY montelukast [Singulair] 10 mg tablet 10 mg PO DAILY spironolactone [Aldactone] 25 mg tablet 25 mg PO DAILY candesartan [Atacand] 4 mg tablet 4 mg PO DAILY metoprolol tartrate 25 mg tablet 25 mg PO .hs budesonide-formoterol [Symbicort] 80-4.5 mcg/actuation HFA aerosol inhaler 2 inh inhalation BID aspirin 81 mg capsule 81 mg PO DAILY calcium carbonate [Antacid (calcium carbonate)] 200 mg calcium (500 mg) tablet,chewable 200 mg PO DAILY levothyroxine [Euthyrox] 50 mcg tablet 50 mcg PO DAILY PreserVision AREDS-2 250-90-40-1 mg capsule 1 tab PO BID celecoxib [Celebrex] 200 mg capsule 200 mg PO BID acetaminophen [Tylenol Extra Strength] 500 mg tablet 500 mg PO BID PRN (Reason: pain) pro-air inhaler inhaler Print Language: Malawian Instructions: Arthralgia (ED) Referrals: SREEKANTH DE LA GARZA [Primary Care Provider] - 1 week
--- OUTSIDE RECORDS SUMMARY | 2024-05-13 10:09 | XMS_ITS | CCD ---
Author Organization [facility] Care Team Providers Care Bicycle Courier Name Role Phone AMAURY MONTERROSO Primary Care Unavailable AMAURY MONTERROSO Referring Unavailable ELTIFFANIER OSAMA Admitting Unavailable KRISTINR OSAMA Attending Unavailable TX Procedure Practitioner UnavailBERTHA Burkett Surgeon Unavailable CASEY GARSIA Attending Unavailable CASEY GARSIA Admitting Unavailable MONTERROSO ., DR AMAURY Palumbo Primary Care Unavailable CASEY GARSIA Attending Unavailable MONTERROSO ., DR AMAURY Palumbo Primary Care Unavailable CASEY GARSIA Admitting Unavailable TAISHA EATON Admitting Unavailable TAISHA EATON Consulting Unavailable TAISHA EATON Attending Unavailable MONTERROSO ., DR AMAURY Palumbo Primary Care Unavailable MONTERROSO ., DR AMAURY Palumbo Primary Care Unavailable MONTERROSO ., DR AMAURY Palumbo Consulting Unavailable MONTERROSO ., DR AMAURY Palumbo Attending Unavailable MONTERROSO ., DR AMAURY Palumbo Admitting Unavailable MONTERROSO ., DR AMAURY Palumbo Primary Care Unavailable MONTERROSO ., DR AMAURY Palumbo Consulting Unavailable MONTERROSO ., DR AMAURY Palumbo Attending Unavailable MONTERROSO ., DR AMAURY Palumbo Admitting Unavailable MONTERROSO ., DR AMAURY Palumbo Primary Care Unavailable MONTERROSO ., DR AMAURY Palumbo Attending Unavailable MONTERROSO ., DR AMAURY Palumbo Admitting Unavailable CASEY GARSIA Attending Unavailable MONTERROSO ., DR AMAURY Palumbo Primary Care Unavailable CASEY GARSIA Admitting Unavailable CASEY GARSIA Attending Unavailable MONTERROSO ., DR AMAURY Palumbo Primary Care Unavailable CASEY GARSIA Admitting Unavailable Yaniv Singh. Primary Care Physician Asaad, Imangel Unavailable Yaniv Singh. Attending Unavailable LEA WALLACE Attending Unavailable Yaniv Singh. Attending Unavailable Yaniv Singh. Attending Unavailable Marlee Malcolm Attending Unavailable Yaniv Singh. Attending Unavailable Marlee Malcolm Attending Unavailable Yaniv Singh Attending Unavailable Yaniv Singh Admitting Unavailable Yaniv Singh Attending Unavailable Yaniv Singh Referring Unavailable Joy Harper Attending Unavaila Yaniv Marshall Attending Unavailable Yaniv Singh Attending Unavailable ELATTAR, OSAMA Referring Unavailable ELJUAN CARRANZA Attending Unavailable ELATTAR, OSAMA Referring Unavailable ELATTAR, OSAMA Attending Unavailable MELISSA RODRIGEZ Attending Unavailable ELATTAR, OSAMA Referring Unavailable ELATTAR, OSAMA Referring Unavailable Yaniv Singh MD Primary Care Provider [phone] MD Yaniv Singh Attending Unavailable MD Yaniv Singh Admitting Unavailable MD Yaniv Singh Attending Unavailable MD Yaniv Singh Attending Unavailable DIONTE, MELISSA A Admitting Unavailable DIONTE, MELISSA A Attending Unavailable OTTONIEL WILLS Attending Unavailable OTTONIEL WILLS Attending Unavailable OTTONIEL WILLS Attending Unavailable OTTONIEL WILLS Attending Unavailable OTTONIEL WILLS Attending Unavailable Yaniv Singh Attending Unavailable Yaniv Singh Attending Unavailable Yaniv Singh Attending Unavailable DIONTEVADIM LANDAVERDEA A Admitting Unavailable MELISSA RODRIGEZ Attending Unavailable Marlee Malcolm Attending Unavailable Yaniv Singh Attending Unavailable Yaniv Singh MD Primary Care Provider [phone] Marija Vega MD Attending Provider Marija Vega Attending Unavailable Gary Imangel Admitting Unavailable Yaniv Singh Primary Care Unavailable Yaniv Singh Primary Care Unavailable Fred Hernandez II Attending UnavailFred Adam II Admitting Unavailnery palumbo Allergies Allergy Classification Reported Allergen(s) Allergy Type Date of Onset Reaction(s) Facility (1 source) Hicks powder; Translations: [hicks powder] Propensity to adverse reactions (disorder) 1 [facility] Repository (1 source) eggplant extract Drug Allergy 1 [facility] Repository (3 sources) Sulfonamides (Antibiotic); Translations: [SULFA (SULFONAMIDE ANTIBIOTICS)] Propensity to adverse reactions (disorder) 0 [facility] Repository (1 source) HYDROcodone Drug Allergy 0 The [facility] Repository (1 source) Sulfonamides (Antibiotic) Drug allergy (disorder) 3 The [facility] Repository (6 sources) Amoxicillin / Clavulanate; Translations: [amoxicillin-cla vulanate] Drug Allergy Unknown (qualifier value) [facility] (7 sources) Fluconazole; Translations: [fluconazole] Drug Allergy 3 Unknown (qualifier value) [facility] (6 sources) Sulfonamides (Antibiotic); Translations: [sulfa drugs] Drug allergy Unknown (qualifier value) [facility] (12 sources) traMADol; Translations: [tramadol] Drug Allergy 3 Unknown (qualifier value) [facility] (6 sources) AMOXICILLIN-POT CLAVULANATE; Translations: [AMOXICILLIN-POT CLAVULANATE] Propensity to adverse reactions to drug (disorder) 3 Unknown [facility] Repository (5 sources) Fluconazole Allergy to substance 3 [facility] (5 sources) Sulfonamides (Antibiotic) Drug Allergy 3 Unknown [facility] Healthcare Medications Current Medications Medication Drug Class(es) Dates Sig (Normalized) Sig (Original) acetaminophen 500 mg oral tablet (6 sources) Start: 07-10-2018 take 1 tablet by mouth twice daily as needed for pain Acetaminophen (Tylenol Extra Strength) 500 mg Tablet Active 500 MG PO Twice daily as needed for Pain July 09, 2018 11:00pm acetaminophen (T ylenol Extra Strength) 500 MG tablet every 6 (six) hours. Active ProAir HFA (6 sources) beta2-Adrenergic Agonist Start: 09-08-2022 ProAi r HFA Inhalation, q6hr Wheezing, Refill(s) 0 Start Date: 09/08/22 Status: Ordered Start: 07-05-2022 take 2 puff(s) by in halation every four hours as needed albuterol HFA (Proventil HFA) 90 mcg/act inhaler 2 puff(s), Inhalation, q4hr, Refill(s) 0, as needed 07/05/2022 Active Albuterol (Eqv-ProAir HFA) 90 mcg/inh inhalation aerosol (2 sources) Start: 08-15-2023 Albuterol (Eqv-ProAir HFA) 90 mcg/inh inhalation aerosol See Instructions, 8.5 EA, Refill(s) 0, TAKE 2 PUFFS EVERY 4 HOURS NEEDED, [id number], 148, cm, 07/19/23 10:14:00 EDT, Height/Length Dosing, 61.7, kg, 07/19/23 10:14:00 EDT, Weight Dosing Start Date: 08/15/23 Status: Ordered Aspir-81 (2 sources) Aspir-81 Active aspirin 81 mg oral tablet (19 sources) Platelet Aggregation Inhibitor, Nonsteroidal Anti-inflammatory Drug Start: 09-08-2022 take 81 mg by mouth once daily aspirin 81 mg, Oral, Daily, Refills(s) 0 Start Date: 09/08/22 Status: Ordered Start: 07-10-2018 take 1 tablet by bridget th once daily Aspirin 81 mg Tablet,Chewable Active 81 MG PO Daily July 09, 2018 11:00pm aspirin 81 MG EC tablet 1 (one) time each day at the same time. Active Symbicort (11 sources) Corticosteroid, beta2-Adrenergic Agonist Start: 09-08-2022 Symbicort 80/4. 5, Inhalation, BID, Refill(s) 0 Start Date: 09/08/22 Status: Ordered Start: 06-13-2022 Symbicort 80-4 .5 MCG/ACT inhaler 06/13/2022 Active Start: 07-10-2018 take 1 puff(s) by in halation twice daily Budesonide-Formoterol 80-4.5 mcg/actuation HFA aerosol inhaler Active 1 PUFF INHALATION Twice daily July 09, 2018 11:00pm take 2 puff(s) by in halation twice daily Symbicort 80-4.5 MCG/ACT 2 puffs Inhalation Twice a day Active Symbicort Active bupivacaine hydrochloride 5 mg/ml injectable solution (5 sources) Amide Local Anesthetic bupivacai ne (Marcaine) 0.5 % injection bupivacaine HCl 0.5 % (5 mg/mL) injection solution via inject Active Calcium Carbonate (11 sources) Start: 09-08-2022 Tums mg, Chewed, Daily, Refills(s) 0 Start Date: 09/08/22 Status: Ordered Start: 07-10-2018 take 1 tablet by bridget twice daily Calcium Carbonate (Tums) 200 mg calcium (500 mg) Tablet,Chewable Active 200 MG PO Twice daily July 09, 2018 11:00pm calcium carbonat e (Os-Yung) 1250 (500 Ca) MG chewable tablet Chew 200 mg in the morning. Active Tums Active candesartan cilexetil 4 mg oral tablet (10 sources) Angiotensin 2 Receptor Samm Start: 07-10-2018 take 1 tablet by mouth once daily candesartan 4 mg Tab See Instructions, TAKE 1 TABLET BY MOUTH EVERY DAY, # 90 tab(s), Refills(s) 1, Pharmacy: [id number], 147, cm, 09/19/23 10:15:00 EDT, Height/Length Dosing, 61.8, kg, 09/19/23 10:15:00 EDT, Weight Dosing Start Date: 09/21/23 Status: Ordered Candesartan Cilexetil-HCTZ (1 source) Candesartan Cilexetil-HCTZ Active celecoxib 200 mg oral capsule (16 sources) Nonsteroidal Anti-inflammatory Drug Start: 07-05-2022 celecoxib (CeleBREX) 200 MG capsule 1 (one) time each day at the same time. 07/05/2022 Active Start: 07-10-2018 take 1 capsule by mo [facility] twice daily as needed for pain celecoxib 200 mg Cap See Instructions, TAKE 1 CAPSULE BY MOUTH TWICE A DAY NEEDED FOR PAIN, # 180 cap(s), Refills(s) 1, Pharmacy: [id number], 148, cm, 07/19/23 10:14:00 EDT, Height/Length Dosing, 61.7, kg, 07/19/23 10:14:00 EDT, Weight Dosing Start Date: 09/14/23 Status: Ordered Celecoxib Active cephalexin 500 mg oral capsule (5 sources) Cephalosporin Antibacterial Start: 04-07-2022 take 1 capsule by mouth in the morning cephalexin (Keflex) 500 MG capsule Take 500 mg by mouth in the morning and 500 mg before bedtime. 04/07/2022 Active desonide 0.5 mg/ml topical cream (5 sources) Corticosteroid Start: 07-11-2022 desonide (DesOwen) 0.05 % cream APPLY SMALL AMOUNT 3 TIMES A DAY NEEDED 07/11/2022 Active digoxin 0.125 mg oral tablet (11 sources) Cardiac Glycoside Start: 03-21-2023 End: 03-15-2024 take 1 tablet by mouth once daily digoxin 125 mcg (0.125 mg) Tab 125 mcg = 1 tab(s), Oral, Daily, X 90 day(s), # 90 tab(s), Refills(s) 3, Pharmacy: [facility]/pharmacy #[id number], 148, cm, 03/21/23 8:51:00 EST, Height/Length Dosing, 64, kg, 03/21/23 8:51:00 EST, Weight Dosing Start Date: 03/21/23 Stop Date: 03/15/24 Status: Ordered Start: 07-05-2022 take 1 tablet by bridget th once daily digoxin 125 mcg (0.125 mg) Tab 125 mcg = 1 tab(s), Oral, Daily, Refills(s) 0 Start Date: 07/05/22 Status: Ordered Start: 07-10-2018 digoxin (Lanox in) 125 MCG tablet digoxin 125 mcg (0.125 mg) tablet 07/05/2022 Active Digoxin Active famotidine 40 mg oral tablet (5 sources) Histamine-2 Receptor Antagonist Start: 07-05-2022 famotidine (Pepcid) 40 MG tablet Take 40 mg by mouth. 07/05/2022 Active ICaps AREDS 2 (3 sources) Start: 07-05-2022 ICaps AREDS 2 See Instructions, Refill(s) 0, take 2 orally daily Start Date: 07/05/22 Status: Ordered levothyroxine sodium 0.05 mg oral tablet (11 sources) l-Thyroxine Start: 10-18-2023 take 1 tablet by mouth once daily levothyroxine 50 mcg (0.05 mg) Tab See Instructions, TAKE 1 TABLET BY MOUTH EVERY DAY, # 90 tab(s), Refills(s) 1, Pharmacy: [facility] STORE [id number], 147, cm, 09/19/23 10:15:00 EDT, Height/Length Dosing, 61.8, kg, 09/19/23 10:15:00 EDT, Weight Dosing Start Date: 10/18/23 Status: Ordered Start: 03-21-2023 take 1 tablet by bridget th once daily levothyroxine 50 mcg (0.05 mg) Tab 50 mcg = 1 tab(s), Oral, Daily, # 90 tab(s), Refills(s) 1, [id number], 148, cm, 03/21/23 8:51:00 EST, Height/Length Dosing, 64, kg, 03/21/23 8:51:00 EST, Weight Dosing Start Date: 03/21/23 Status: Ordered Start: 07-05-2022 take 1 tablet by bridget once daily levothyroxine 50 mcg (0.05 mg) Tab 50 mcg = 1 tab(s), Oral, Daily, Refills(s) 0 Start Date: 07/05/22 Status: Ordered Start: 07-10-2018 Synthroid 50 M CG tablet Synthroid 50 mcg tablet 07/05/2022 Active Levothyroxine So dium Active meclizine hydrochloride 25 mg oral tablet (3 sources) Antiemetic Start: 08-25-2022 take 1 tablet by mouth every eight hours as needed for dizziness meclizine 25 mg Tab 25 mg = 1 tab(s), Oral, q8hr, as needed for dizziness, # 30 tab(s), Refills(s) 0, Pharmacy: [facility]/pharmacy #[id number], 147.8, cm, 07/26/22 15:28:00 EDT, Height/Length Dosing, 63.6, kg, 07/26/22 15:28:00 EDT, Weight Dosing Start Date: 08/25/22 Status: Ordered methylPREDNISolone (5 sources) Corticosteroid Start: 09-16-2022 methylPREDNISolone (Medrol Dospak) 4 MG tablets TAKE 6 TABLETS ON DAY 1 DIRECTED ON PACKAGE AND DECREASE BY 1 TAB EACH DAY FOR A TOTAL OF 6 DAYS 09/16/2022 Active 24 hr metoprolol succinate 25 mg extended release oral tablet (15 sources) beta-Adrenergic Samm Start: 09-14-2023 take 1 tablet by mouth at bedtime metoprolol succinate 25 mg ER Tab 25 mg = 1 tab(s), Oral, Bedtime, # 90 tab(s), Refills(s) 1, Pharmacy: [facility]/pharmacy #[id number], 148, cm, 07/19/23 10:14:00 EDT, Height/Length Dosing, 61.7, kg, 07/19/23 10:14:00 EDT, Weight Dosing Start Date: 09/14/23 Status: Ordered Start: 07-05-2022 metoprolol suc cinate XL (Toprol-XL) 25 MG 24 hr tablet metoprolol succinate ER 25 mg tablet,extended release 24 hr 07/05/2022 Active Start: 07-10-2018 take 1 tablet by bridget th at bedtime metoprolol 25 mg ER Tab 25 mg = 1 tab(s), Oral, Bedtime, Refills(s) 0 Start Date: 07/05/22 Status: Ordered metoprolol tartr ate (Lopressor) 25 MG tablet 1 (one) time each day at the same time. Active Metoprolol Tartr ate Not-Taking montelukast 10 mg oral tablet (11 sources) Leukotriene Receptor Antagonist Start: 07-10-2018 montelukast (Singulair) 10 MG tablet montelukast 10 mg tablet 07/05/2022 Active Montelukast Sodi um Active Multiple Vitamins-Minerals (PreserVision AREDS) tablet (5 sources) Multiple Vitamins-Minerals (PreserVision AREDS) tablet Orally Active prednisoLONE acetate 10 mg/ml ophthalmic suspension (5 sources) Corticosteroid prednisoLONE veena lao (Pred-Forte) 1 % ophthalmic suspension prednisolone acetate 1 % eye drops,suspension Active PreserVision AREDS (2 sources) PreserVision ARE DS Active spironolactone 25 mg oral tablet (16 sources) Aldosterone Antagonist Start: spironolactone (Aldactone) 25 MG tablet every 12 (twelve) hours. 07/05/2022 Active Start: 07-10-2018 take 1 tablet by bridget th once daily spironolactone 25 mg Tab See Instructions, TAKE 1 TABLET BY MOUTH EVERY DAY, # 90 tab(s), Refills(s) 1, Pharmacy: [id number], 148, cm, 07/19/23 10:14:00 EDT, Height/Length Dosing, 61.7, kg, 07/19/23 10:14:00 EDT, Weight Dosing Start Date: 09/14/23 Status: Ordered Spironolactone A ctive Tylenol Extra Strength (3 sources) Start: 09-08-2022 take 500 mg by mouth twice daily as needed for pain Tylenol Extra Strength 500 mg, Oral, BID, PRN as needed for pain, Refills(s) 0 Start Date: 09/08/22 Status: Ordered Vit C,E-Mj-Pytgb-Lutein-Ze axan (Preservision Areds-2) [id number] cb-omzd-ry-mg Capsule (1 source) Start: 07-13-2018 take 1 capsule by mouth twice daily Vit C,Y-Wh-Elfzp-Lutein-Stephanie barak (Preservision Areds-2) [phone] gz-xqes-wk-mg Capsule Active 2 TAB PO Twice daily July 12, 2018 11:00pm Completed/Discontinued Medications Medication Drug Class(es) Dates Sig (Normalized) Sig (Original) Areds 2 1 tab (1 source) Start: 07-10-2018 End: 07-13-2018 take 2 tablets by mouth twice daily Areds 2 1 tab Discontinued 2 TAB PO Twice daily July 09, 2018 11:00pm July 13, 2018 9:17am Problems Active Problems Problem Classification Problem Date Documented Date Episodic/Chronic Abdominal pain (5 sources) Right upper quadrant pain; Translations: [Right upper quadrant pain] Episodic Acquired foot deformities (3 sources) Foot-drop 09-08-2022 Episodic Administrative/social admission (1 source) Bereavement 09-19-2023 Episodic Asthma (3 sources) Asthma 09-08-2022 Chronic Cancer; other and unspecified primary (2 sources) Squamous cell carcinoma in situ Onset: 09-20-1909-19-2022 Chronic Conditions associated with dizziness or vertigo (5 sources) Benign paroxysmal vertigo, unspecified ear; Translations: [Labyrinthitis] Onset: 12-23-19 Episodic Disorders of lipid metabolism (3 sources) Hypercholesterolemia 07-05-2022 Chronic Diverticulosis and diverticulitis (3 sources) Diverticular disease 07-05-2022 Chronic Essential hypertension (3 sources) Hypertensive disorder; Translations: [Essential hypertension] 07-05-2022 Chronic Heart valve disorders (6 sources) Nonrheumatic aortic (valve) stenosis; Translations: [Rheumatic disorders of both mitral and aortic valves] Onset: 07-20-19 Chronic Heart valve disorders (3 sources) Heart murmur 07-05-2022 Episodic Comment on above: bicuspid aortic valv e Hypertension with complications and secondary hypertension (2 sources) Hypertensive heart disease without heart failure; Translations: [Hypertensive heart disease without heart failure] Onset: 11-30-19 Chronic Inflammation; infection of eye (except that caused by tuberculosis or sexually transmitteddisease) (7 sources) 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; Translations: [Unspecified blepharitis right eye, upper and lower eyelids] Onset: 09-20-1909-19-2022 Episodic Osteoarthritis (3 sources) Osteoarthritis of hip 07-05-2022 Chronic Osteoporosis (1 source) Osteoporosis 07-05-2022 Chronic Other aftercare (2 sources) Encounter for therapeutic drug level monitoring; Translations: [Encounter for therapeutic drug level monitoring] Onset: 11-30-19 Episodic Other aftercare (2 sources) Other kick press setter (current) drug therapy; Translations: [Other kick press setter (current) drug therapy] Onset: 11-30-19 Episodic Other bone disease and musculoskeletal deformities (2 sources) Osteopenia 09-26-2022 Episodic Other ESL INSTRUCTOR infection and poliomyelitis (3 sources) 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 EHR Cmte Other hereditary and degenerative nervous system conditions (3 sources) Restless legs 07-05-2022 Chronic Other liver diseases (5 sources) Steatosis of liver; Translations: [Fatty (change of) liver, not elsewhere classified] 07-05-2022 Chronic Other liver diseases (3 sources) Fatty (change of) liver, not elsewhere classified; Translations: [Other chronic nonalcoholic liver disease] Onset: 03-05-20 Chronic Other nervous system disorders (1 source) Disorder of the autonomic nervous system, unspecified; Translations: [DISORDER AUTONOMIC NERVOUS SYS UNS] Onset: 03-11-19 Chronic Other nervous system disorders (1 source) Other disorders of autonomic nervous system; Translations: [OTH DISORDERS AUTONOMIC NERVOUS SYS] Onset: 12-11-19 Chronic Other non-traumatic joint disorders (1 source) Pain in right hip; Translations: [Pain in right hip] Onset: 05-09-19 Episodic Other nutritional; endocrine; and metabolic disorders (3 sources) Overweight 07-05-2022 Episodic Other skin disorders (4 sources) Nail dystrophy; Translations: [NAIL DYSTROPHY] Onset: 06-09-19 Episodic Other upper respiratory disease (1 source) Allergic rhinitis 07-05-2022 Chronic Other upper respiratory disease (2 sources) Allergic rhinitis due to pollen; Translations: [Allergic rhinitis due to pollen] 09-19-2022 Chronic Other upper respiratory disease (2 sources) Nasal congestion 03-03-2023 Episodic Other upper respiratory infections (1 source) Acute upper respiratory infection 07-10-2023 Episodic Peripheral and visceral atherosclerosis (1 source) Peripheral vascular disease, unspecified; Translations: [PERIPHERAL VASCULAR DISEASE UNS] Onset: 03-11-19 Chronic Retinal detachments; defects; vascular occlusion; and retinopathy (7 sources) Nonexudative age-related macular degeneration; Translations: [Nonexudative age-related macular degeneration, bilateral, advanced atrophic with subfoveal involvement] Onset: 09-20-1909-19-2022 Chronic Spondylosis; intervertebral disc disorders; other back problems (11 sources) Cervical spondylosis; Translations: [Lumbar spondylosis] Onset: 04-13-1907-05-2022 Chronic Thyroid disorders (3 sources) Hypothyroidism 07-05-2022 Chronic Unclassified (3 sources) COUGH, UNSPECIFIED; Translations: [COUGH, UNSPECIFIED] Onset: 09-11-19 Unclassified (2 sources) Pain of knee region 06-27-2023 Unclassified (2 sources) Pain of right shoulder region 03-21-2023 Viral [...] INVLV CIRC RS] Onset: 01-03-2022 Episodic Other non-traumatic joint disorders (2 sources) Pain in right shoulder; Translations: [Pain in right shoulder] Onset: 10-20-2022 Episodic Other non-traumatic joint disorders (2 sources) Pain in left shoulder; Translations: [Pain in left shoulder] Onset: 10-20-2022 Episodic Other skin disorders (1 source) Onychogryphosis; 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] Onset: 09-02-2021 Episodic Spondylosis; intervertebral disc disorders; other back problems (5 sources) Cervicalgia; Translations: [Radiculopathy, cervical region] Onset: 04-13-2023 Episodic Unclassified (1 source) COUGH, UNSPECIFIED; Translations: [COUGH, UNSPECIFIED] Onset: 09-07-2021 Results Test Name Value Interpretation Reference Range Facil ity XR hip RT min 2V(w/wo pelvis )*on 05-08-2024 XR hip RT min 2V(w/wo pelvis)* [facility] [address] [place] [address] XRay Report Signed Patient: Una Gomez MR#: [id number] : 1940 Acct:[id number] Age/Sex: 84 / F ADM Date: 05/08/24 Loc: [facility] [place]: Type: [facility] Attending Dr: Fred Hernandez II, MD Copies to: Fred Hernandez MD Ordering Provider: Fred Hernandez MD Date of Service: 05/08/24 XR/XR hip RT min 2V(w/wo pelvis)*: M25.551 - Pain in right hip WEIGHTBEARING AP PELVIS AND RIGHT HIP - 2 views: CLINICAL HISTORY: Right hip and groin pain for 4 to 5 months. No injury. COMPARISON: None AP view of the pelvis and crosstable lateral view of the right hip were obtained. There is no acute fracture or dislocation. There is moderate to severe narrowing of the hip joint spaces bilaterally though minimally worse on the right. There is also marginal spurring at the periphery of the femoral heads and superior acetabula. There is mild sclerosis at the SI joints. Dextroscoliotic curvature and degenerative changes are seen at the lower imaged lumbar spine. There are no significant soft tissue abnormalities. XR/XR hip RT min 2V(w/wo pelvis)* IMPRESSION: DEGENERATIVE CHANGE INVOLVING BOTH HIPS, SLIGHTLY WORSE ON THE RIGHT. Impression dictated by: Nory Jarrett M.D.05/08/2024 4:04 PM Dictation Location: [place] [address] Transcribed By: NURYS 05/08/24 1604 Dictated By: Nory Jarrett MD 05/08/24 1602 Signed By: 05/08/24 1604 Normal [facility] Physician [facility] Family Medicine Office/Clini c Noteon 04-08-2024 Family Medicine Office/Clinic Note Family Medicine Office/Clinic Note Chief Complaint Rt Leg Pain The patient presents with hip pain aggravated by playing the organ, with a history of post-poliomyelitis muscular atrophy. HPI Staff Pt presents today due to pain Rt leg. Pain characteristics: Pain location: Rt leg Intensity:_Currently 5/10 Onset: Worst pain is at night. Keeps her awake Medication used: Celecoxib. No relief. Has not tried Tylenol due to scared it will cause dizziness. History of Present Illness The patient is an 84-year-old female presenting with concerns of hip pain and mobility issues, primarily exacerbated by playing the organ. The patient reports experiencing pain in the right leg, specifically near the hip, which escalates to a pain level of 5 while walking and resolves upon sitting. The pain increases during organ playing, attributed to weight shifting and movement. The patient conveyed concerns about the potential for arthritis, with a belief that this issue might stem from the hip joint as the pain initiates in the front and rotates to the back. The patient's history includes post-poliomyelitis muscular atrophy, potentially impacting muscle strength and mobility. The patient has utilized analgesics like Tylenol independently, although efficacy appears limited. She possesses a life alert system for emergencies while alone, indicating a proactive approach to maintaining safety. - Discussion on utilizing life alert system for safety at home. - Suggestion to try Tylenol for pain management. - Consideration of physical therapy or local injection for hip pain due to suspected arthritis. Review of Systems PHQ Score Initial Depression Screen Score: 2 SCORE Physical Exam Vitals & Measurements T: 36.7 ???C(Tympanic) HR: 84(Peripheral) RR: 18 BP: 132/84 SpO2: 97% HT: 58 in HT: 147 cm WT: 59.7 kg WT: 131.616 lb BMI: 27.63 General: alert, no acute distress ENMT: oral mucosa moist Cardiovascular: Regular rate and rhythm, normal peripheral perfusion Respiratory: Lungs clear to auscultation, respirations non labored Extremities: no deformity, no trauma, right leg pain near the hip, possibly due to hip arthritis, Leg roll was negative. Neurological: oriented x 4, level of consciousness appropriate for age, CN II-XII intact, motor strength equal & normal bilaterally, speech normal Abdomen: Soft, Non-tender, Non-distended, + Bowel sounds Assessment/Plan 1. Hip pain (M25.559: Pain in unspecified hip) Unsure if this is due to OA or something else. 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 Tylenol for pain. Discussed safety given she lives at home and fear of being dizzy. [place] [facility] [place] 2. BMI 27.0-27.9,adult (Z68.27: Body mass index [BMI] 27.0-27.9, adult) Monitor weight and provide guidance on maintaining a healthy BMI through balanced diet and exercise, as discussed with the patient. [place] [facility] [place] 3. Overweight (BMI 25.0-29.9) (E66.3: Overweight) Reinforce healthy lifestyle modifications, including diet and physical activity, to maintain or reduce weight and improve overall health, considering the patient's age and mobility status. Ordered[place] [facility] [place] 4. 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 Ordered[place] [facility] [place] 5. 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 Continuation of current routine, with consideration for orthopedic assessment if functional concerns arise. Ordered: [facility] [place] 6. Nonsmoker (Z78.9: Other specified health status) Please continue to not smoke. 84-year-old female with a history of post-poliomyelitis muscular atrophy presenting with hip pain possibly due to hip arthritis. The pain is notably exacerbated by activities that require shifting body weight, such as playing the organ. The lack of pain on passive movement during examination suggests localized issues rather than systemic causes. The past history of polio and resultant muscular atrophy may complicate her musculoskeletal health and contribute to her current symptoms. During the visit, I discussed with the patient the likelihood of hip arthritis contributing to her pain, particularly exacerbated by activities like playing the organ. We considered potential management strategies, including referring for an orthopedic evaluation to explore further interventions such as possible injections or physical therapy aimed at strengthening surrounding musculature. I emphasized the importance of continuing her current safety measures at home, especially use of her life alert system. We also discussed pain management options including Tylen (more content not included)... Normal [facility] Comment on above: Result Comment: Elec tronically Signed By: Yaniv Singh MD\.br\Date and Time Signed: 04/08/24 11:14 EST Optical coherence tomography study reporton 02-21-2024 [facility] Radiology Study observation (narrative) [facility] Ambulatory Visit Summaryon 1 04-15-2023 Ambulatory Visit Summary Ambulatory Visit Summary UNA GOMEZ :1940 Visit Date:02/13/2024 Ambulatory Visit Instructions Your Diagnosis Primary hypertension Hypothyroidism BMI 27.0-27.9,adult Overweight Nonsmoker Osteoarthritis of hip Left sciatic nerve pain Post-poliomyelitis muscular atrophy Nasal congestion Your Care Team Attending Physician - Yaniv Singh MD Primary Care Physician - Yaniv Singh MD This Is Your Medications List acetaminophen (Tylenol Extra Strength) albuterol (Albuterol (Eqv-ProAir HFA) 90 mcg/inh inhalation aerosol) aspirin budesonide-formoterol (Symbicort) calcium carbonate (Tums) candesartan (candesartan 4 mg Tab) celecoxib (celecoxib 200 mg Cap) digoxin (digoxin 125 mcg (0.125 mg) Tab) levothyroxine (levothyroxine 50 mcg (0.05 mg) Tab) meclizine (meclizine 25 mg Tab) methylPREDNISolone (Medrol Dosepack 4 mg Tab) metoprolol (metoprolol succinate 25 mg ER Tab) montelukast (montelukast 10 mg Tab) multivitamin with minerals (ICaps AREDS 2) spironolactone (spironolactone 25 mg Tab) Procedures Performed Cataracts, Cholecystectomy, Shoulder replacement. Discharge Vitals Temperature (Temporal Artery) 36.5 ???C Heart Rate (Peripheral) 80 Respiratory Rate 18 Blood Pressure 118/66 Height 147 cm Height 58 in Weight 59.9 kg Weight 132.057 lb BMI 27.72 What to do next Scheduled Follow-Up Appointments Monday 1:00 PM EDT With: Francisco BELTRAN, Yaniv Pope Where: [address] [address]- Monday 11:00 AM EDT With: Where: [address] [address]- Medications What How Much When Why Instructions New methylPREDNISolone (Medrol Dosepack 4 mg Tab) 1 Packets By Mouth As Directed Primary hypertension Hypothyroidism BMI 27.0-27.9,adult Overweight Nonsmoker Osteoarthritis of hip Left sciatic nerve pain Post-poliomyelitis muscular atrophy Nasal congestion Duration: 6 Days as directed on package labeling Pickup at [facility]/pharmacy #[id number] Unchanged acetaminophen (Tylenol Extra Strength) 500 Milligram By Mouth 2 times a day as needed for as needed for pain Unchanged albuterol (Albuterol (Eqv-ProAir HFA) 90 mcg/ inh inhalation aerosol) See instructions TAKE 2 PUFFS EVERY 4 HOURS NEEDED Unchanged aspirin 81 Milligram By Mouth Every day Unchanged budesonide-formoterol (Symbicort) 80/4.5 Inhalation 2 times a day Unchanged calcium carbonate (Tums) Chewed Every day Unchanged candesartan (candesartan 4 mg Tab) See instructions TAKE 1 TABLET BY MOUTH EVERY DAY Unchanged celecoxib (celecoxib 200 mg Cap) See instructions TAKE 1 CAPSULE BY MOUTH TWICE A DAY NEEDED FOR PAIN Unchanged digoxin (digoxin 125 mcg (0.125 mg) Tab) 1 Tablets By Mouth Every day Duration: 90 Days Unchanged levothyroxine (levothyroxine 50 mcg (0.05 mg) Tab) See instructions TAKE 1 TABLET BY MOUTH EVERY DAY Unchanged meclizine (meclizine 25 mg Tab) 1 Tablets By Mouth Every 8 hours as needed for dizziness Unchanged metoprolol (metoprolol succinate 25 mg ER Tab) 1 Tablets By Mouth At bedtime Unchanged montelukast (montelukast 10 mg Tab) 1 Tablets By Mouth Every day Unchanged multivitamin with minerals (ICaps AREDS 2) See instructions take 2 orally daily Unchanged spironolactone (spironolactone 25 mg Tab) See instructions TAKE 1 TABLET BY MOUTH EVERY DAY Pharmacy Information [facility]/pharmacy #[id number]: [address], [place] [phone] Allergies Augmentin (Unknown) Diflucan (Unknown) sulfa drugs (Unknown) traMADol (Unknown) Problems Ongoing - Any problem that you are currently receiving treatment for. Asthma Bereavement BMI 27.0-27.9,adult Cellulitis Cervical spondylosis Diverticular disease Foot drop Hypercholesterolemia Hypothyroidism Knee pain, left Left sciatic nerve pain Lumbar spondylosis Murmur Nasal congestion Non-seasonal allergic rhinitis due to pollen Nonsmoker Osteoarthritis of hip Osteopenia Over weight Overweight (BMI 25.0-29.9) Overweight with body mass index (BMI) of 27 to 27.9 in adult Post-poliomyelitis muscular atrophy Primary hypertension Restless legs syndrome Right hip pain Right upper quadrant pain Shoulder pain, right Skin infection Squamous cell carcinoma in situ Steatosis of liver Thoracic spondylosis Patient Survey You may receive a survey via text or e-mail asking about your office visit. Please share your experience with us by completing your survey. We appreciate your feedback and thank you for choosing us for your care. Normal [facility] Family Medicine Office/Clini c Noteon 02-13-2024 Family Medicine Office/Clinic Note Family Medicine Office/Clinic Note HPI Staff Una is an 83 year old female presenting for follow up htn, thyroid Patient is here for follow up on hypertension. How often are you checking your blood pressure? Doesnt check BP at home What are your average readings? N/A, Not checking at home Yearly BMP: 09/18/23 Patient is here for follow up on Thyroid Disease. Do you have any of the following symptoms? Change in energy level? no Weight change? no Heat/cold intolerance? no Hair/skin/nail changes? yes callous on bottom of one of her toes Change in bowels? no Last TSH: TSH: 1.34 mcIU/mL (09/18/23 12:10:00) questions/concerns: sneezing and some nasal congestion legs hurting ? arthritis moving down her legs, wondered about a high dose of celebrex ( may be on the highest dose) Also still having issues with her sciatic nerve History of Present Illness Pt states she is having OA pain down both legs. Worse first thing in the AM, better with movement then her sciatic kicks in. She states it kicks in every now and then. Pt states 7 days ago she started with sneezing and congestion. She was around others who were sick on the flight. No change in 7 days. At night she is worse. Does not want anything sedating. Having itching on the R leg, better now with the cream. NO other concerns. Review of Systems PHQ Score Initial Depression Screen Score: 1 SCORE Physical Exam Vitals & Measurements T: 36.5 ???C(Temporal Artery) HR: 80(Peripheral) RR: 18 BP: 118/66 SpO2: 97% HT: 58 in HT: 147 cm WT: 59.9 kg WT: 132.057 lb BMI: 27.72 General: alert, no acute distress ENMT: oral mucosa moist, Cardiovascular: regular rate and rhythm, normal peripheral perfusion, Murmur Respiratory: Lungs CTA, respirations non labored Extremities: no deformity, no trauma Neurological: oriented x 4, LOC appropriate for age, CN II-XII intact, motor strength equal & normal bilaterally, speech normal Abdomen: Soft, Nontender, Non-distended, + BS Assessment/Plan 1. Primary hypertension (I10: Essential (primary) hypertension) At goal at this time. No issues. Continue meds as before. Ordered: methylPREDNISolone, = 1 packet(s), Oral, As Directed, as directed on package labeling, X 6 day(s), # 21 tab(s), Refills(s) 0, Pharmacy: [facility]/pharmacy #[id number], 147, cm, 02/13/24 10:53:00 EST, Height/Length Dosing, 59.9, kg, 02/13/24 10:53:00 EST, Weight Dosing Body Mass Index (BMI) documented 3008F Current tobacco non-user 1036F Depression Screening Negative 3352F Influenza immunization administered or previously received 4274F Most recent diastolic blood pressure <80 mm Hg 3078F Patient screen for fall risk: no falls in last year or 1 fall with no injury in last year 1101F Systolic BP <130 mm Hg (Most Recent) 3074F 2. Hypothyroidism (E03.9: Hypothyroidism, unspecified) NO symptoms at this time. Recheck labs in 6 months Ordered: methylPREDNISolone, = 1 packet(s), Oral, As Directed, as directed on package labeling, X 6 day(s), # 21 tab(s), Refills(s) 0, Pharmacy: [facility]/pharmacy #[id number], 147, cm, 02/13/24 10:53:00 EST, Height/Length Dosing, 59.9, kg, 02/13/24 10:53:00 EST, Weight Dosing Body Mass Index (BMI) documented 3008F Current tobacco non-user 1036F Depression Screening Negative 3352F Influenza immunization administered or previously received 4274F Most recent diastolic blood pressure <80 mm Hg 3078F Patient screen for fall risk: no falls in last year or 1 fall with no injury in last year 1101F Systolic BP <130 mm Hg (Most Recent) 3074F 3. BMI 27.0-27.9,adult (Z68.27: Body mass index [BMI] 27.0-27.9, adult) BMI education added Ordered: methylPREDNISolone, = 1 packet(s), Oral, As Directed, as directed on package labeling, X 6 day(s), # 21 tab(s), Refills(s) 0, Pharmacy: [facility]/pharmacy #[id number], 147, cm, 02/13/24 10:53:00 EST, Height/Length Dosing, 59.9, kg, 02/13/24 10:53:00 EST, Weight Dosing Body Mass Index (BMI) [...] (Most Recent) 3074F 4. Overweight (E66.3: Overweight) Diet and exercise advised Ordered: methylPREDNISolone, = 1 packet(s), Oral, As Directed, as directed on package labeling, X 6 day(s), # 21 tab(s), Refills(s) 0, Pharmacy: [facility]/pharmacy #[id number], 147, cm, 02/13/24 10:53:00 EST, Height/Length Dosing, 59.9, kg, 02/13/24 10:53:00 EST, Weight Dosing Body Mass Index (BMI) documented 3008F Current tobacco non-user 1036F Depression Screening Negative 3352F Influenza immunization administered or previously received 4274F Most recent diastolic blood pressure <80 mm Hg 3078F Patient screen for fall risk: no falls in last year or 1 fall with no injury in last year 1101F Systolic BP <130 mm Hg (Most Recent (more content not included)... Normal [facility] Comment on above: Result Comment: Elec tronically Signed By: Yaniv Singh MD\.br\Date and Time Signed: 02/13/24 11:19 EST Ambulatory Visit Summaryon 1 03-17-2023 Ambulatory Visit Summary Ambulatory Visit Summary UNA GOMEZ :1940 Visit Date:01/16/2024 Ambulatory Visit Instructions Your Diagnosis Cellulitis Left sciatic nerve pain Post-poliomyelitis muscular atrophy Overweight (BMI 25.0-29.9) Nonsmoker Body mass index [BMI] 28.0-28.9, adult Your Care Team Attending Physician - Yaniv Singh MD Primary Care Physician - Yaniv Singh MD This Is Your Medications List acetaminophen (Tylenol Extra Strength) albuterol (Albuterol (Eqv-ProAir HFA) 90 mcg/inh inhalation aerosol) aspirin budesonide-formoterol (Symbicort) calcium carbonate (Tums) candesartan (candesartan 4 mg Tab) celecoxib (celecoxib 200 mg Cap) digoxin (digoxin 125 mcg (0.125 mg) Tab) levothyroxine (levothyroxine 50 mcg (0.05 mg) Tab) meclizine (meclizine 25 mg Tab) methylPREDNISolone (Medrol Dosepack 4 mg Tab) metoprolol (metoprolol succinate 25 mg ER Tab) montelukast (montelukast 10 mg Tab) multivitamin with minerals (ICaps AREDS 2) spironolactone (spironolactone 25 mg Tab) triamcinolone topical (triamcinolone Top 0.1% Crm 15 gram) Procedures Performed Cataracts, Cholecystectomy, Shoulder replacement. Discharge Vitals Temperature (Tympanic) 36.4 ???C Heart Rate (Peripheral) 83 Respiratory Rate 16 Blood Pressure 140/80 Height 147 cm Height 58 in Weight 60.6 kg Weight 133.6 lb BMI 28.04 What to do next Scheduled Follow-Up Appointments Monday 10:45 AM EST With: Francisco BELTRAN, Yaniv Pope Where: [address] [address]- Monday 11:00 AM EDT With: Where: [address] [address]- Medications What How Much When Why Instructions New methylPREDNISolone (Medrol Dosepack 4 mg Tab) 1 Packets By Mouth As Directed Cellulitis Left sciatic nerve pain Duration: 6 Days as directed on package labeling Pickup at [facility]/pharmacy #[id number] Unchanged acetaminophen (Tylenol Extra Strength) 500 Milligram By Mouth 2 times a day as needed for as needed for pain Unchanged albuterol (Albuterol (Eqv-ProAir HFA) 90 mcg/ inh inhalation aerosol) See instructions TAKE 2 PUFFS EVERY 4 HOURS NEEDED Unchanged aspirin 81 Milligram By Mouth Every day Unchanged budesonide-formoterol (Symbicort) 80/4.5 Inhalation 2 times a day Unchanged calcium carbonate (Tums) Chewed Every day Unchanged candesartan (candesartan 4 mg Tab) See instructions TAKE 1 TABLET BY MOUTH EVERY DAY Unchanged celecoxib (celecoxib 200 mg Cap) See instructions TAKE 1 CAPSULE BY MOUTH TWICE A DAY NEEDED FOR PAIN Unchanged digoxin (digoxin 125 mcg (0.125 mg) Tab) 1 Tablets By Mouth Every day Duration: 90 Days Unchanged levothyroxine (levothyroxine 50 mcg (0.05 mg) Tab) See instructions TAKE 1 TABLET BY MOUTH EVERY DAY Unchanged meclizine (meclizine 25 mg Tab) 1 Tablets By Mouth Every 8 hours as needed for dizziness Unchanged metoprolol (metoprolol succinate 25 mg ER Tab) 1 Tablets By Mouth At bedtime Unchanged montelukast (montelukast 10 mg Tab) 1 Tablets By Mouth Every day Unchanged multivitamin with minerals (ICaps AREDS 2) See instructions take 2 orally daily Unchanged spironolactone (spironolactone 25 mg Tab) See instructions TAKE 1 TABLET BY MOUTH EVERY DAY Unchanged triamcinolone topical (triamcinolone Top 0.1% Crm 15 gram) 1 Application Topical 3 times a day BMI 27.0-27.9,adult Overweight with body mass index (BMI) of 27 to 27.9 in adult Nonsmoker Pharmacy Information [facility]/pharmacy #[id number]: [address], [place] [phone] Allergies Augmentin (Unknown) Diflucan (Unknown) sulfa drugs (Unknown) traMADol (Unknown) Problems Ongoing - Any problem that you are currently receiving treatment for. Asthma Bereavement BMI 27.0-27.9,adult Cellulitis Cervical spondylosis Diverticular disease Foot drop Hypercholesterolemia Hypothyroidism Knee pain, left Left sciatic nerve pain Lumbar spondylosis Murmur Nasal congestion Non-seasonal allergic rhinitis due to pollen Nonsmoker Osteoarthritis of hip Osteopenia Over weight Overweight (BMI 25.0-29.9) Overweight with body mass index (BMI) of 27 to 27.9 in adult Post-poliomyelitis muscular atrophy Primary hypertension Restless legs syndrome Right hip pain Right upper quadrant pain Shoulder pain, right Skin infection Squamous cell carcinoma in situ Steatosis of liver Thoracic spondylosis Patient Survey You may receive a survey via text or e-mail asking about your office visit. Please share your experience with us by completing your survey. We appreciate your feedback and thank you for choosing us for your care. Education Materials BMI for Adults Body mass index (BMI) is a number found using a person's weight and height. BMI can help tell how much of a person's weight is (more content not included)... Normal [facility] Family Medicine Office/Clini c Noteon 01-16-2024 Family Medicine Office/Clinic Note Family Medicine Office/Clinic Note Chief Complaint 1wk follow up to possible cellulitis & hip pain HPI Staff Pt presents today for 1wk follow up to cellulitis vs skin breakdown from AFO Continued on Cipro @ time of EL & started on abx cream Also given steroid for hip pain however pt states pharmacy never received script. Increased redness & pain in Rt leg. Feels swollen & hot. History of Present Illness Please see staff HPI Review of Systems PHQ Score Initial Depression Screen Score: 0 SCORE Physical Exam Vitals & Measurements T: 36.4 ???C(Tympanic) HR: 83(Peripheral) RR: 16 BP: 140/80 SpO2: 97% HT: 58 in HT: 147 cm WT: 60.6 kg WT: 133.6 lb BMI: 28.04 Improved redness in the right white. Assessment/Plan 1. Cellulitis (L03.90: Cellulitis, unspecified) At this time I do not believe that this is cellulitis. I do think this is skin irritation. Increased padding and lotion is recommended for the skin. If this does not improve we will try to send a wound. Will call in Keflex tomorrow if patient still having issues after starting the steroid. Ordered: methylPREDNISolone, = 1 packet(s), Oral, As Directed, as directed on package labeling, X 6 day(s), # 21 tab(s), Refills(s) 0, Pharmacy: [facility]/pharmacy #[id number], 147, cm, 01/16/24 11:11:00 EST, Height/Length Dosing, 60.6, kg, 01/16/24 11:11:00 EST, Weight Dosing 2. Left sciatic nerve pain (M54.32: Sciatica, left side) Will do a Medrol Dosepak at this time. This was not sent last time. Encouraged the patient to call us if medication does not get called in. Ordered: methylPREDNISolone, = 1 packet(s), Oral, As Directed, as directed on package labeling, X 6 day(s), # 21 tab(s), Refills(s) 0, Pharmacy: [facility]/pharmacy #[id number], 147, cm, 01/16/24 11:11:00 EST, Height/Length Dosing, 60.6, kg, 01/16/24 11:11:00 EST, Weight Dosing 3. Post-poliomyelitis muscular atrophy (G14: Postpolio syndrome) Wondering if the cause of the patient's feeling different in that leg is because of the post polymyositis atrophy. 4. Overweight (BMI 25.0-29.9) (E66.3: Overweight) 5. Body mass index [BMI] 28.0-28.9, adult (Z68.28: Body mass index [BMI] 28.0-28.9, adult) Follow-up No qualifying data available Patient Education BMI for Adults Problem List/Past Medical History Ongoing Asthma Bereavement BMI 27.0-27.9,adult Cellulitis Cervical spondylosis Diverticular disease Foot drop Hypercholesterolemia Hypothyroidism Knee pain, left Left sciatic nerve pain Lumbar spondylosis Murmur Nasal congestion Non-seasonal allergic rhinitis due to pollen Nonsmoker Osteoarthritis of hip Osteopenia Over weight Overweight (BMI 25.0-29.9) Overweight with body mass index (BMI) of 27 to 27.9 in adult Post-poliomyelitis muscular atrophy Primary hypertension Restless legs syndrome Right hip pain Right upper quadrant pain Shoulder pain, right Skin infection Squamous cell carcinoma in situ Steatosis of liver Thoracic spondylosis Historical No qualifying data Procedure/Surgical History Cataracts, Cholecystectomy, Shoulder replacement. Medications Albuterol (Eqv-ProAir HFA) 90 mcg/inh inhalation aerosol, See Instructions aspirin, 81 mg, Oral, Daily candesartan 4 mg Tab, See Instructions celecoxib 200 mg Cap, See Instructions digoxin 125 mcg (0.125 mg) Tab, 125 mcg= 1 tab(s), Oral, Daily, 3 refills ICaps AREDS 2, See Instructions levothyroxine 50 mcg (0.05 mg) Tab, See Instructions meclizine 25 mg Tab, 25 mg= 1 tab(s), Oral, q8hr Medrol Dosepack 4 mg Tab, 1 packet(s), Oral, As Directed metoprolol succinate 25 mg ER Tab, 25 mg= 1 tab(s), Oral, Bedtime, 1 refills montelukast 10 mg Tab, 10 mg= 1 tab(s), Oral, Daily, 3 refills spironolactone 25 mg Tab, See Instructions Symbicort, 80/4.5, Inhalation, BID triamcinolone Top 0.1% Crm 15 gram, 1 charity, Topical, TID Tums, Chewed, Daily Tylenol Extra Strength, 500 mg, Oral, BID, PRN Allergies Augmentin (Unknown) Diflucan (Unknown) sulfa drugs (Unknown) traMADol (Unknown) Social History Alcohol - Denies Alcohol Use, 09/14/2023 Never., 01/03/2024 Substance Abuse - Denies Substance Abuse, 09/14/2023 Never., 01/03/2024 Tobacco - Denies Tobacco Use, 09/14/2023 Never (less than 100 in lifetime) Tobacco Use:. Never Smokeless Tobacco Use:. Household tobacco concerns: No. Yes, 01/16/2024 Family History Acute myocardial infarction: Grandparent and Grandparent. Immunizations Vaccine Date Status Comments influenza virus vaccine, inactivated 12/14/2022 Recorded SARS-CoV-2 (COVID-19) [id number] 02/10/2022 Recorded influenza virus vaccine, inactivated 12/27/2021 Recorded SARS-CoV-2 (COVID-19) mRNA-1273 vaccine 03/17/2021 Recorded 2022-07-04: [id number] influenza virus vaccine, inactivated 02/10/2021 Recorded pneumococcal 23-valent vaccine 09/11/2020 Recorded SARS-CoV-2 (COVID-19) mRNA-1273 vaccine 05/05/2020 Recorded SARS-CoV-2 (COVID-19) mRNA-1273 vaccine 04/07/2020 Recorded pne (more content not included)... Normal [facility] Comment on above: Result Comment: Elec tronically Signed By: Francisco BELTRAN, Yaniv Pope\.br\Date and Time Signed: 01/16/24 11:28 EST Family Medicine Office/Clini c Noteon 01-08-2024 Family Medicine Office/Clinic Note Family Medicine Office/Clinic Note HPI Staff Una is an 83 year old female presenting for follow up right leg no improvement Seen 01/02 by Marlee ford/ sadaf infection rt leg, rxed keflex and triamcinolone cream The cream really stops the itching which keeps her from scratching, no swelling or redness but feels it's in there again the brace she wears on her right leg has really been bothering her where it straps across, put a handkerchief in there today so less irritation Also some trouble with her right hip and had a horrible time sleeping last night, rated it a 9 last night but only a 3 right now History of Present Illness See staff HPI Review of Systems PHQ Score Initial Depression Screen Score: 1 SCORE Physical Exam Vitals & Measurements T: 36.6 ???C(Oral) HR: 72(Peripheral) RR: 16 BP: 120/72 SpO2: 97% HT: 58 in HT: 147 cm WT: 60.6 kg WT: 133.32 lb BMI: 28.04 Patient has an area of redness on her right white where the AFO brace comes across. Slight erythema in that area without any swelling. Patient is tender to palpation of the right hip. Assessment/Plan At this time we will not sure that this really is cellulitis versus skin breakdown from the AFO. Will continue the patient on the Cipro however we will work on topical antibiotic cream with petroleum jelly to help protect the skin. Will continue to monitor. Right hip is likely secondary to playing the organ more than normal. Will go ahead and do a small dose of steroid. Stop using the topical steroid for the skin as there is breakdown. Will have the patient follow-up as needed. 1. Cellulitis (L03.90: Cellulitis, unspecified) 2. Right hip pain (M25.551: Pain in right hip) 3. BMI 28.0-28.9,adult (Z68.28: Body mass index [BMI] 28.0-28.9, adult) Ordered: Body Mass Index (BMI) documented 3008F Current tobacco non-user 1036F Depression Screening Negative 3352F Most recent diastolic blood pressure <80 mm Hg 3078F Patient screen for fall risk: no falls in last year or 1 fall with no injury in last year 1101F Systolic BP <130 mm Hg (Most Recent) 3074F 4. Overweight (E66.3: Overweight) Ordered: Body Mass Index (BMI) documented 3008F Current tobacco non-user 1036F Depression Screening Negative 3352F Most recent diastolic blood pressure <80 mm Hg 3078F Patient screen for fall risk: no falls in last year or 1 fall with no injury in last year 1101F Systolic BP <130 mm Hg (Most Recent) 3074F 5. Nonsmoker (Z78.9: Other specified health status) Ordered: Body Mass Index (BMI) documented 3008F Current tobacco non-user 1036F Depression Screening Negative 3352F Most recent diastolic blood pressure <80 mm Hg 3078F Patient screen for fall risk: no falls in last year or 1 fall with no injury in last year 1101F Systolic BP <130 mm Hg (Most Recent) 3074F 6. Post-poliomyelitis muscular atrophy (G14: Postpolio syndrome) Follow-up No qualifying data available Problem List/Past Medical History Ongoing Asthma Bereavement BMI 27.0-27.9,adult Cellulitis Cervical spondylosis Diverticular disease Foot drop Hypercholesterolemia Hypothyroidism Knee pain, left Left sciatic nerve pain Lumbar spondylosis Murmur Nasal congestion Non-seasonal allergic rhinitis due to pollen Osteoarthritis of hip Osteopenia Over weight Overweight with body mass index (BMI) of 27 to 27.9 in adult Post-poliomyelitis muscular atrophy Primary hypertension Restless legs syndrome Right hip pain Right upper quadrant pain Shoulder pain, right Skin infection Squamous cell carcinoma in situ Steatosis of liver Thoracic spondylosis Historical No qualifying data Procedure/Surgical History Cataracts, Cholecystectomy, Shoulder replacement. Medications Albuterol (Eqv-ProAir HFA) 90 mcg/inh inhalation aerosol, See Instructions aspirin, 81 mg, Oral, Daily candesartan 4 mg Tab, See Instructions celecoxib 200 mg Cap, See Instructions cephalexin 500 mg Cap, 500 mg= 1 cap(s), Oral, q12hr digoxin 125 mcg (0.125 mg) Tab, 125 mcg= 1 tab(s), Oral, Daily, 3 refills ICaps AREDS 2, See Instructions levothyroxine 50 mcg (0.05 mg) Tab, See Instructions meclizine 25 mg Tab, 25 mg= 1 tab(s), Oral, q8hr metoprolol succinate 25 mg ER Tab, 25 mg= 1 tab(s), Oral, Bedtime, 1 refills montelukast 10 mg Tab, 10 mg= 1 tab(s), Oral, Daily, 3 refills spironolactone 25 mg Tab, See Instructions Symbicort, 80/4.5, Inhalation, BID triamcinolone Top 0.1% Crm 15 gram, 1 charity, Topical, TID Tums, Chewed, Daily Tylenol Extra Strength, 500 mg, Oral, BID, PRN Allergies Augmentin (Unknown) Diflucan (Unknown) sulfa drugs (Unknown) traMADol (Unknown) Social History Alcohol - Denies Alcohol Use, 09/14/2023 Never., 01/03/2024 Substance Abuse - Denies Substance Abuse, 09/14/2023 Never., 01/03/2024 Tobacco - Denies Tobacco Use, 09/14/2023 Never (less than 100 in lifetime) Tobacco Use:. Never Smokeless Tobacco Use:. Household tobacco concerns: No. Ye (more content not included)... Normal [facility] Comment on above: Result Comment: Elec tronically Signed By: Francisco BELTRAN, Yaniv Pope\.br\Date and Time Signed: 01/08/24 14:52 EST Ambulatory Visit Summaryon 1 Ambulatory Visit Summary Ambulatory Visit Summary UNA GOMEZ :1940 Visit Date:01/03/2024 Ambulatory Visit Instructions Your Diagnosis Skin infection BMI 27.0-27.9,adult Overweight with body mass index (BMI) of 27 to 27.9 in adult Nonsmoker Your Care Team Attending Physician - Marlee Martinez Primary Care Physician - Yaniv Singh MD This Is Your Medications List acetaminophen (Tylenol Extra Strength) albuterol (Albuterol (Eqv-ProAir HFA) 90 mcg/inh inhalation aerosol) aspirin budesonide-formoterol (Symbicort) calcium carbonate (Tums) candesartan (candesartan 4 mg Tab) celecoxib (celecoxib 200 mg Cap) cephalexin (cephalexin 500 mg Cap) digoxin (digoxin 125 mcg (0.125 mg) Tab) levothyroxine (levothyroxine 50 mcg (0.05 mg) Tab) meclizine (meclizine 25 mg Tab) metoprolol (metoprolol succinate 25 mg ER Tab) montelukast (montelukast 10 mg Tab) multivitamin with minerals (ICaps AREDS 2) spironolactone (spironolactone 25 mg Tab) triamcinolone topical (triamcinolone Top 0.1% Crm 15 gram) Procedures Performed Cataracts, Cholecystectomy, Shoulder replacement. Discharge Vitals Temperature (Tympanic) 36.0 ???C Heart Rate (Peripheral) 74 Respiratory Rate 18 Blood Pressure 138/74 Height 147 cm Height 58 in Weight 60.2 kg Weight 132.44 lb BMI 27.86 What to do next Scheduled Follow-Up Appointments Monday 10:45 AM EST With: Yaniv Singh MD Where: [address] [id number] Monday 11:00 AM EDT With: Where: [address] [address]- Medications What How Much When Why Instructions New triamcinolone topical (triamcinolone Top 0.1% Crm 15 gram) 1 Application Topical 3 times a day BMI 27.0-27.9,adult Overweight with body mass index (BMI) of 27 to 27.9 in adult Nonsmoker Tuckerup at [facility]/pharmacy #[id number] Unchanged acetaminophen (Tylenol Extra Strength) 500 Milligram By Mouth 2 times a day as needed for as needed for pain Unchanged albuterol (Albuterol (Eqv-ProAir HFA) 90 mcg/ inh inhalation aerosol) See instructions TAKE 2 PUFFS EVERY 4 HOURS NEEDED Unchanged aspirin 81 Milligram By Mouth Every day Unchanged budesonide-formoterol (Symbicort) 80/4.5 Inhalation 2 times a day Unchanged calcium carbonate (Tums) Chewed Every day Unchanged candesartan (candesartan 4 mg Tab) See instructions TAKE 1 TABLET BY MOUTH EVERY DAY Unchanged celecoxib (celecoxib 200 mg Cap) See instructions TAKE 1 CAPSULE BY MOUTH TWICE A DAY NEEDED FOR PAIN Unchanged cephalexin (cephalexin 500 mg Cap) 1 Capsules By Mouth Every 12 hours Pickup at [facility]/pharmacy #[id number] Unchanged digoxin (digoxin 125 mcg (0.125 mg) Tab) 1 Tablets By Mouth Every day Duration: 90 Days Unchanged levothyroxine (levothyroxine 50 mcg (0.05 mg) Tab) See instructions TAKE 1 TABLET BY MOUTH EVERY DAY Unchanged meclizine (meclizine 25 mg Tab) 1 Tablets By Mouth Every 8 hours as needed for dizziness Unchanged metoprolol (metoprolol succinate 25 mg ER Tab) 1 Tablets By Mouth At bedtime Unchanged montelukast (montelukast 10 mg Tab) 1 Tablets By Mouth Every day Unchanged multivitamin with minerals (ICaps AREDS 2) See instructions take 2 orally daily Unchanged spironolactone (spironolactone 25 mg Tab) See instructions TAKE 1 TABLET BY MOUTH EVERY DAY Pharmacy Information [facility]/pharmacy #[id number]: [address], [place] [id number] [phone] Allergies Augmentin (Unknown) Diflucan (Unknown) sulfa drugs (Unknown) traMADol (Unknown) Problems Ongoing - Any problem that you are currently receiving treatment for. Asthma Bereavement BMI 27.0-27.9,adult Cervical spondylosis Diverticular disease Foot drop Hypercholesterolemia Hypothyroidism Knee pain, left Left sciatic nerve pain Lumbar spondylosis Murmur Nasal congestion Non-seasonal allergic rhinitis due to pollen Osteoarthritis of hip Osteopenia Over weight Overweight with body mass index (BMI) of 27 to 27.9 in adult Post-poliomyelitis muscular atrophy Primary hypertension Restless legs syndrome Right upper quadrant pain Shoulder pain, right Skin infection Squamous cell carcinoma in situ Steatosis of liver Thoracic spondylosis Patient Survey You may receive a survey via text or e-mail asking about your office visit. Please share your experience with us by completing your survey. We appreciate your feedback and thank you for choosing us for your care. Nubia Saucedo [facility] Family Medicine Office/Clini c Noteon 01-03-2024 Family Medicine Office/Clinic Note Family Medicine Office/Clinic Note Chief Complaint Possible Infection HPI Staff Una is a 83 year old female presenting with possible infection on right leg Rt white. Started last week. Denies pain. Does itch. Keeps her up at night. Redness. States she had an infection in leg a while ago, does not want it to get to that point. Has not tried anything because she was not sure what to put on it. History of Present Illness pt presents today with red itchy area on right white Review of Systems PHQ Score Initial Depression Screen Score: 1 SCORE Physical Exam Vitals & Measurements T: 36.0 ???C(Tympanic) HR: 74(Peripheral) RR: 18 BP: 138/74 SpO2: 98% HT: 58 in HT: 147 cm WT: 60.2 kg WT: 132.44 lb BMI: 27.86 General: alert, no acute distress ENMT: oral mucosa moist, no pharyngeal erythema or exudate Cardiovascular: regular rate and rhythm, normal peripheral perfusion Respiratory: Lungs CTA, respirations non labored Extremities: no deformity, no trauma Neurological: oriented x 4, LOC appropriate for age, CN II-XII intact, motor strength equal & normal bilaterally, speech normal red raised area about 2.5 inches in length and 1 inch in width. no oozing Assessment/Plan 1. Skin infection (L08.9: Local infection of the skin and subcutaneous tissue, unspecified) pt has area on right white that is red, irritated and itchy. a few years ago she had severe cellulitis of this leg and she says this is how it felt when that started. will order keflex and triamcinolone cream. if no improvement she will come back in. RTC as needed 2. BMI 27.0-27.9,adult (Z68.27: Body mass index [BMI] 27.0-27.9, adult) BMI education given Ordered: triamcinolone topical, 1 charity, Topical, TID, 30 gram, Refill(s) 0, [id number], 147, cm, 01/03/24 11:43:00 EDT, Height/Length Dosing, 60.2, kg, 01/03/24 11:43:00 EDT, Weight Dosing 3. Overweight with body mass index (BMI) of 27 to 27.9 in adult (E66.3: Overweight) see above Ordered: triamcinolone topical, 1 charity, Topical, TID, 30 gram, Refill(s) 0, [id number], 147, cm, 01/03/24 11:43:00 EDT, Height/Length Dosing, 60.2, kg, 01/03/24 11:43:00 EDT, Weight Dosing 4. Nonsmoker (Z78.9: Other specified health status) continue not smoking Ordered: triamcinolone topical, 1 charity, Topical, TID, 30 gram, Refill(s) 0, [id number], 147, cm, 01/03/24 11:43:00 EDT, Height/Length Dosing, 60.2, kg, 01/03/24 11:43:00 EDT, Weight Dosing Orders: cephalexin, 500 mg = 1 cap(s), Oral, q12hr, # 20 cap(s), Refills(s) 0, Pharmacy: [facility]/pharmacy #[id number], 147, cm, 01/03/24 11:43:00 EDT, Height/Length Dosing, 60.2, kg, 01/03/24 11:43:00 EDT, Weight Dosing Follow-up No qualifying data available Problem List/Past Medical History Ongoing Asthma Bereavement BMI 27.0-27.9,adult Cervical spondylosis Diverticular disease Foot drop Hypercholesterolemia Hypothyroidism Knee pain, left Left sciatic nerve pain Lumbar spondylosis Murmur Nasal congestion Non-seasonal allergic rhinitis due to pollen Osteoarthritis of hip Osteopenia Over weight Overweight with body mass index (BMI) of 27 to 27.9 in adult Post-poliomyelitis muscular atrophy Primary hypertension Restless legs syndrome Right upper quadrant pain Shoulder pain, right Skin infection Squamous cell carcinoma in situ Steatosis of liver Thoracic spondylosis Historical No qualifying data Procedure/Surgical History Cataracts, Cholecystectomy, Shoulder replacement. Medications Albuterol (Eqv-ProAir HFA) 90 mcg/inh inhalation aerosol, See Instructions aspirin, 81 mg, Oral, Daily candesartan 4 mg Tab, See Instructions celecoxib 200 mg Cap, See Instructions cephalexin 500 mg Cap, 500 mg= 1 cap(s), Oral, q12hr digoxin 125 mcg (0.125 mg) Tab, 125 mcg= 1 tab(s), Oral, Daily, 3 refills ICaps AREDS 2, See Instructions levothyroxine 50 mcg (0.05 mg) Tab, See Instructions meclizine 25 mg Tab, 25 mg= 1 tab(s), Oral, q8hr metoprolol succinate 25 mg ER Tab, 25 mg= 1 tab(s), Oral, Bedtime, 1 refills montelukast 10 mg Tab, 10 mg= 1 tab(s), Oral, Daily, 3 refills spironolactone 25 mg Tab, See Instructions Symbicort, 80/4.5, Inhalation, BID triamcinolone Top 0.1% Crm 15 gram, 1 charity, Topical, TID Tums, Chewed, Daily Tylenol Extra Strength, 500 mg, Oral, BID, PRN Allergies Augmentin (Unknown) Diflucan (Unknown) sulfa drugs (Unknown) traMADol (Unknown) Social History Alcohol - Denies Alcohol Use, 09/14/2023 Never., 01/03/2024 Substance Abuse - Denies Substance Abuse, 09/14/2023 Never., 01/03/2024 Tobacco - Denies Tobacco Use, 09/14/2023 Never (less than 100 in lifetime) Tobacco Use:. Never Smokeless Tobacco Use:. Household tobacco concerns: No. Yes, 01/03/2024 Family History Acute myocardial infarction: Grandparent and Grandparent. Immunizations Vaccine Date Status Comments influenza virus vaccine, inactivated 12/14/2022 Recorded SARS-CoV-2 (COVID-19) [id number].[id number] (more content not included)... Normal [facility] Comment on above: Result Comment: Elec tronically Signed By: Marlee Martinez\.br\Date and Time Signed: 01/03/24 12:21 EDT 36on 12-12-2023 36 Regarding dig level from 12/11/2023: Melissa Rodrigez, FRANSISCO Clarke MA Please let her know her digoxin level looks good. Thanks Patient informed. Normal [facility] CHEMISTRYOrdered By: SYSTEM SYSTEM on 12-11-2023 Digoxin Lvl 0.6 ng/mL Normal 0.5 - 1.9 ng/mL Remisol Chem Digoxinon 12-11-2023 Digoxin Lvl 0.6 ng/mL Normal 0.5-1.9 [facility] Comment on above: Performed By: #### 2 [id number] #### [facility] Laboratory [address] [place] [address] Office Visiton 11-30-2023 Follow-up visit [id number] Jason,Una Radha 1940 F Date Provider Department Center 11/30/2023 MELISSA DELACRUZ [facility] No family history on file Level of Service:17537 [place] OFFICE/OUTPATIENT ESTABLISHED LOW MDM 20 MIN Normal [facility] Optical coherence tomography study reporton 11-20-2023 [facility] Radiology Study observation (narrative) [facility] Ambulatory Visit Summaryon 0 09-19-2023 Ambulatory Visit Summary Ambulatory Visit Summary UNA GOMEZ :1940 Visit Date:09/19/2023 Ambulatory Visit Instructions Your Diagnosis Hypothyroidism Primary hypertension Squamous cell carcinoma in situ Left sciatic nerve pain BMI 28.0-28.9,adult Over weight Nonsmoker Your Care Team Attending Physician - Yaniv Singh MD Primary Care Physician - Yaniv Singh MD This Is Your Medications List Contact [...] Monday 10:45 AM EST With: Francisco BELTRAN, Yainv Pope Where: [facility] Normal [address] [place] [address]- \.br\ Medications\.br\ What How Much When Instructions\.br\ [...] choosing us for your care.\.br\ \.br\ [facility] Family Medicine Office/Clini c Noteon 09-19-2023 Family Medicine [...] to not smoke. Orders: Lab Specimen Collect [id number] Lipid Panel Follow-up No qualifying data available [...] virus vaccine, inactivated 12/14/2022 Recorded SARS-CoV-2 (COVID-19) [id number].[id number] 02/10/2022 Recorded influenza virus vaccine, inactivated 12/27/2021 Recorded SARS-CoV-2 (COVID-19) mRNA-1273 vaccine 03/17/2021 Recorded 2022-07-04: [id number] influenza virus vaccine, inactivated 02/10/2021 Recorded pneumoco (more content not included)... Normal [facility] Comment on above: Result Comment: Elec tronically Signed By: Francisco BELTRAN, Yaniv Sanabria.br\Date and Time Signed: 09/19/23 10:30 EDT CHEMISTRYOrdered [...] 09-18-2023 Albumin [Mass/Vol] 4.5 g/dL Normal 3.3-5.0 [facility] Comment on above: Performed By: #### 2 [id number] #### [facility] [address] [place] [address] Albumin/Globulin (S) [Mass conc ratio] 1.6 Normal 1.1-2.2 [facility] Comment on above: Performed By: #### 2 [id number] #### [facility] [address] [place] [address] ALP [Catalytic activity/Vol] 81 Int._Unit/L Normal 21-98 [facility] Comment on above: Performed By: #### 2 [id number] #### [facility] [address] [place] [address] ALT No additional P-5'-P [Catalytic activity/Vol] 23 Int._Unit/L Normal 6-46 [facility] Comment on above: Performed By: #### 2 [id number] #### [facility] [address] [place] [address] Anion gap [Moles/Vol] 11 mmol/L Normal 6-16 [facility] Comment on above: Performed By: #### 2 [id number] #### [facility] [address] [place] [address] AST [Catalytic activity/Vol] 25 Int._Unit/L Normal 5-43 [facility] Comment on above: Performed By: #### 2 [id number] #### [facility] [address] [place] [address] Bilirubin [Mass/Vol] 1.4 mg/dL High 0.0-1.1 [facility] Comment on above: Performed By: #### 2 [id number] #### [facility] [address] [place] [address] Calcium [Mass/Vol] 9.4 mg/dL Normal 8.9-11.1 [facility] Comment on above: Performed By: #### 2 [id number] #### [facility] [address] [place] [address] Chloride [Moles/Vol] 105 mmol/L Normal 101-111 [facility] Comment on above: Performed By: #### 2 [id number] #### [facility] [address] [place] [address] CO2 [Moles/Vol] 25 mmol/L Normal 21-31 [facility] Comment on above: Performed By: #### 2 [id number] #### [facility] [address] [place] [address] Creatinine [Mass/Vol] 0.7 mg/dL Normal 0.5-1.3 [facility] Comment on above: Performed By: #### 2 [id number] #### [facility] [address] [place] [address] Globulin (S) [Mass/Vol] 2.8 g/dL Normal 1.4-4.0 [facility] Comment on above: Performed By: #### 2 [id number] #### [facility] [address] [place] [address] Glucose [Mass/Vol] 96 mg/dL Normal 55-199 [facility] Comment on above: Performed By: #### 2 [id number] #### [facility] [address] [place] [address] Potassium [Moles/Vol] 4.1 mmol/L Normal 3.5-5.3 [facility] Comment on above: Performed By: #### 2 [id number] #### [facility] [address] [place] [address] Protein [Mass/Vol] 7.3 g/dL Normal 6.0-7.8 [facility] Comment on above: Performed By: #### 2 769125 #### [facility] [address] [place] [address] Sodium [Moles/Vol] 137 mmol/L Normal 135-145 [facility] Comment on above: Performed By: #### 2 110993 #### [facility] [address] [place] [address] Urea nitrogen [Mass/Vol] 19 mg/dL Normal 5-21 [facility] Comment on above: Performed By: #### 2 [id number] #### [facility] [address] [place] [address] Urea nitrogen/Creatini ne [Mass ratio] 27 No Units High 10-20 [facility] Comment on above: Performed By: #### 2 [id number] #### [facility] [address] [place] [address] Lipid Panelon 09-18-2023 Cholesterol [Mass/Vol] 105 mg/dL Low 120-200 [facility] Comment on above: Performed By: #### 2 [id number] #### [facility] [address] [place] [address] Cholesterol in HDL [Mass/Vol] 32 mg/dL Invalid Interpretation Code [facility] Comment on above: Result Comment: '>= 60 LOW RISK' '<= 40 HIGH RISK' Performed By: #### 2 [id number] #### [facility] [address] [place] [address] Cholesterol in LDL [Mass/Vol] 60 mg/dL Normal <=129 [facility] Comment on above: Performed By: #### 2 [id number] #### [facility] [address] [place] [address] Cholesterol in VLDL [Mass/Vol] 28 mg/dL Normal 7-40 [facility] Comment on above: Performed By: #### 2 328203 #### [facility] [address] [place] [address] Triglyceride [Mass/Vol] 142 mg/dL Normal <=149 [facility] Comment on above: Performed By: #### 2 [id number] #### [facility] [address] [place] [address] TSH With T4fr Reflexon 09-17 TSH Qn 1.34 m[IU]/L Normal 0.34-5.60 [facility] Comment on above: Performed By: #### 1 [id number] #### [facility] [address] [place] [address] eGFRon 09-18-2023 eGFR 84 mL/min/1.73 m2 Normal >=59 [facility] Comment on above: Order Comment: Order added by Discern Expert. Performed By: #### 1 [id number] #### [facility] [address] [place] [address] Ambulatory Visit Summaryon 0 09-14-2023 Ambulatory Visit Summary Ambulatory Visit Summary UNA GOMEZ :1940 Visit Date:09/14/2023 Ambulatory Visit Instructions Your Diagnosis Annual visit for general adult medical examination without abnormal findings Post-poliomyelitis muscular atrophy Primary hypertension Hypothyroidism Hypercholesterolemia Asthma Osteoarthritis of hip Over weight Your Care Team Attending Physician - Marlee Martinez Primary Care Physician - Yaniv Singh MD This Is Your Medications List acetaminophen [...] Appointments Monday 9:20 AM EDT With: Where: [facility] Invalid Interpretation Code [address] [place] [address]- \.br\ Monday 11:00 AM EDT \.br\ With:\.br\ Where: [facility] Office/Clini c Noteon 09-14-2023 Family Medicine Office/Clinic [...] of clutter to prevent tripping and/or falling. [place] Advance Directives reviewed. Documents remain at home [...] PCP visit. Labs to be completed with [facility] on a nurse visit. No concerns [...] is ready she has a really good inside sales associate she can talk to and she can [...] she plans to call to hire a turkey cleaner but has not done it yet. [...] with impo (more content not included)... Normal [facility] Comment on above: Result Comment: [...] WALLACE CNP Primary Care Physician - Yaniv Singh MD This Is Your Medications List acetaminophen [...] Appointments 2023 11:00 AM EDT With: Where: [place] [id number] \.br\ Medications\.br\ What How Much When Instructions\.br\ [...] for choosing us for your care.\.br\ \.br\ [facility] Ambulatory Visit Summary UNA GOMEZ :1940 Visit Date:07/19/2023 Ambulatory Visit Instructions Your Diagnosis Asthma BMI 28.0-28.9,adult Your Care Team Attending Physician - LEA WALLACE CNP Primary Care Physician - Yaniv Singh MD This Is Your Medications List acetaminophen [...] Appointments 2023 11:00 AM EDT With: Where: [place] [id number] \.br\ Medications\.br\ What How Much When Instructions\.br\ [...] choosing us for your care.\.br\ \.br\ [facility] Medicine Office/Clini c Noteon 07-19-2023 Family Medicine Office/Clinic Note Chief Complaint chest congestion and cough HPI Staff Patient of Dr. Singh presents for acute visit. complaints of chest congestion and cough not improving. Onset: seen Dr. Singh for same condition 07/10/2023 negative COVID and FLU tests Characteristics: congestion in head and chest OTC tried: Mucinex, Zpack, and steroids rescue inhaler sent in by Dr. Singh, [facility] called patient yesterday to tell her they got it in. Dr. Singh gave steriods and zpack. Patient feels it did help some. Patient is still taking mucinex. History of Present Illness 83 [address] patient of Dr. Singh presents today for an acute visit for evaluation of cough and chest congestion. She was seen by Dr. Singh on 07/10/2023 and prescribed a Zpack and [...] Neurological: oriented x 4, LOC appropriate for agespeech normal Assessment/Plan 1. Asthma (J45.998: Other asthma) [...] qualifying data available Patient Education Cough, Adult, Ngcm-dz-Jcud Problem List/Past Medical History Ongoing Acute URI [...] History Acut (more content not included)... Normal [facility] Comment on above: Result Comment: Elec tronically Signed By: LEA WALLACE CNP\.br\Date and Time Signed: 07/19/23 12:30 EDT Patient Educationon 07-19-19 24 Patient Education ENT Cough, Adult A cough [...] these instructions at home: Medicines ? Take jtyw-rjv-xhmlibh and prescription medicines only as told by [...] things can cause a cough. ? Take mwbb-bxv-zgfdlrv and prescription medicines only as told by [...] provider. Document Revised: 04/10/2020 Document Reviewed: 03/11/2019 ElseSafeTool Patient Education ? 2022 Sleep Number. Normal [facility] Ambulatory Visit Summaryon 0 07-10-2023 Ambulatory Visit Summary UNA GOMEZ :1940 Visit Date:07/10/2023 Ambulatory Visit Instructions Your Diagnosis Acute URI Asthma BMI 28.0-28.9,adult Overweight Your Care Team Attending Physician - Yaniv Singh MD Primary Care Physician - Yaniv Singh MD This Is Your Medications List azithromycin [...] Appointments 2023 11:00 AM EDT With: Where: [facility] [place] [address] [place] [address]- \.br\ Medications\.br\ What How Much When Instructions\.br\ New azithromycin (azithromycin 250 mg Tab 5-day Dose Pack (Z-Sachin)) 1 Packets By Mouth As Directed Duration: 5 Days as directed on package labeling Pickup at [facility]/pharmacy #[id number]\.br\ New methylPREDNISolone (Medrol Dosepack 4 mg Tab) 1 Packets By Mouth As Directed Duration: 6 Days as directed on package labeling Pickup at [facility]/pharmacy #6110\.br\ Unchanged acetaminophen (Tylenol Extra Strength) 500 Milligram [...] \.br\ Pharmacy Information\.br\ [id number] [address], [place] [id number] [phone]\.br\ Allergies\.br\ Augmentin (Unknown)\.br\ Diflucan (Unknown)\.br\ sulfa drugs [...] for choosing us for your care.\.br\ \.br\ [facility] Family Medicine Office/Clini c Noteon 07-10-2023 Family [...] # 6 tab(s), Refills(s) 0, Pharmacy: [facility]/pharmacy #6177, 148, cm, 07/10/23 10:38:00 EDT, Height/Length Dosing, 62, kg, 07/10/23 10:38:00 EDT, Weight Dosing methylPREDNISolone, = 1 packet(s), Oral, As Directed, as directed on package labeling, X 6 day(s), # 21 tab(s), Refills(s) 0, [id number], 148, cm, 07/10/23 10:38:00 EDT, Height/Length [...] Tab, 2 (more content not included)... Normal [facility] Comment on above: Result Comment: Elec tronically Signed By: Francisco BELTRAN, Yaniv Pope\.br\Date and Time Signed: 07/10/23 11:11 EDT RAD - MISCon 06-30-2023 RAD - MISC [id number] .00TIFF Normal [facility] Ambulatory Visit Summaryon 0 06-27-2023 Ambulatory Visit Summary UNA GOMEZ :1940 Visit Date:06/27/2023 Ambulatory Visit Instructions Your Care Team Attending Physician - Yaniv Singh MD Primary Care Physician - Yaniv Singh MD This Is Your Medications List acetaminophen [...] 11:00 AM EDT With: Where: [facility] [place] [facility] [address] [id number]- \.br\ Medications\.br\ What How Much When Instructions\.br\ [...] for choosing us for your care.\.br\ \.br\ [facility] Family Medicine Office/Clini c Noteon 06-27-2023 [...] ortho when able - Xray ordered. Ordered: [facility] [place] Ambulatory Referral Orders: methylPREDNISolone, = 1 packet(s), Oral, As Directed, as directed on package labeling, X 6 day(s), # 21 tab(s), Refills(s) 0, Pharmacy: [facility]/pharmacy #[id number], 148, cm, 06/27/23 11:22:00 EDT, Height/Length [...] virus vaccine, inactivated 12/14/2022 Recorded SARS-CoV-2 (COVID-19) [id number].[id number] 02/10/2022 Recorded influenza virus vaccine, inactivated 12/27/2021 [...] Recorded influenza, whole 01/17/2005 Recorded Normal [facility] Comment on above: Result Comment: Elec tronically Signed By: Francisco BELTRAN, Yaniv Sanabria.br\Date and Time Signed: 06/27/23 11:48 EDT Patient Educationon 06-27-19 24 Patient Education Orthopedics Acute Knee Pain, Adult [...] under your knee. General instructions ? Take wtsw-dho-kafivvd and prescription medicines only as told by [...] Reviewed: 08/05/2020 Elsevier Patient Education ? 2022 [employer] [facility] Physician Referralon 024 Physician Referral [id number] 1.00TIFF [facility] Physician Orderon 04-21-2023 Physician Order [id number] .00TIFF [facility] Consultation Noteon 04-18-19 24 Consultation Note [id number] .00TIFF [facility] 29on 04-13-2023 29 Addended by: TYRONE MONTALVO on: 04/13/2023 10:49 AM Modules accepted: Orders Normal [facility] Office Visiton 04-13-2023 Follow-up visit [id number] Una Gomez 1940 F Date Provider Department Center 04/13/2023 Akua-JUAN PENN MP ORTHO MPORTHO No family history on file Level of Service:58149 [place] OFFICE/OUTPATIENT ESTABLISHED MOD MDM 30 MIN Reason for Visit and Comments: Follow-up [011809] - Pt is c/o neck pain that started back in 02/2023. She has had two regimens of steroids, last dose was on this past Monday night. Denies any injury. Denies any pain at this time. Normal [facility] Office Visiton 04-10-2023 Follow-up visit [id number] Una Gomez 1940 F Date Provider Department Center 04/10/2023 Arthur-BERTHA MEZA MP ORTHO MPORTHO No family history on file Level of Service:66091 [place] OFFICE/OUTPATIENT ESTABLISHED LOW MDM 20 MIN Reason for Visit and Comments: Pain [136] Pain [136] Normal [facility] Ambulatory Visit Summaryon 0 03-21-2023 Ambulatory Visit Summary UNA GOMEZ :1940 Visit Date:03/21/2023 Ambulatory Visit Instructions Your Diagnosis Hypothyroidism Hypercholesterolemia Primary hypertension BMI 29.0-29.9,adult Over weight Nonsmoker Post-poliomyelitis muscular atrophy Shoulder pain, right Osteopenia Your Care Team Attending Physician - Yaniv Singh MD Primary Care Physician - Yaniv Singh MD This Is Your Medications List candesartan [...] 11:00 AM EDT With: Where: [facility] [address] [place] [address]- \.br\ Medications\.br\ What How Much When Why Instructions\.br\ New predniSONE (predniSONE 20 mg Tab) 1 Tablets By Mouth Every day Hypothyroidism Hypercholesterolemia Primary hypertension BMI 29.0-29.9,adult Over weight Nonsmoker Post-poliomyelitis muscular atrophy Duration: 5 Days Pickup at [facility]/pharmacy #6177\.br\ Changed metoprolol (metoprolol 25 mg ER Tab) 1 Tablets By Mouth At bedtime Pickup at [facility]/pharmacy #6177\.br\ Changed spironolactone (spironolactone 25 mg Tab) 1 Tablets By Mouth Every day Pickup at [facility]/pharmacy #6177\.br\ Unchanged candesartan (Atacand 4 mg Tab) 1 Tablets By Mouth Every day Pickup at [facility]/pharmacy #6177\.br\ Unchanged celecoxib (celecoxib 200 mg Cap) 1 Capsules By Mouth 2 times a day as needed for pain Pickup at [facility]/pharmacy #6177\.br\ Unchanged digoxin (digoxin 125 mcg (0.125 mg) Tab) 1 Tablets By Mouth Every day Duration: 90 Days Pickup at [facility]/pharmacy #6177\.br\ Unchanged levothyroxine (levothyroxine 50 mcg (0.05 mg) Tab) 1 Tablets By Mouth Every day Pickup at [facility]/pharmacy #6177\.br\ Unchanged montelukast (montelukast 10 mg Tab) 1 Tablets By Mouth Every day Pickup at [facility]/pharmacy #6177\.br\ Unchanged acetaminophen (Tylenol Extra Strength) 500 [...] questions or concerns \.br\ Pharmacy Information\.br\ [facility]/pharmacy #6177: [address], [place] [id number] [phone]\.br\ Allergies\.br\ Augmentin (Unknown)\.br\ Diflucan (Unknown)\.br\ sulfa drugs [...] numbers. This can be done either in [place] ([place] or metric measurements. Note that charts and online BMI calculators are available to help you find your BMI quickly and easily without having to do these calculations yourself.\.br\ To calculate your BMI in [place] ([place] measurements:\.br\ \.br\ 1. \.br\ Measure your [...] Disease Control and Prevention: www.cdc.gov\.br\ ? \.br\ [place] Heart Association: www.heart.org\.br\ ? \.br\ National Heart, Lung, and Blood Kaplan: www.nhlbi.nih.gov\.br \ Summary\.br\ ? \.br\ Body mass index (BMI) is a number that is calculated from a person's weight and height.\.br\ ? \.br\ BMI may help estimate how much of a person's weight is composed of fat. BMI can help identify those who may be at higher risk for certain medical problems.\.br\ ? 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 Arriaza at [facility]. She never had any pain after [...] # 5 tab(s), Refills(s) 0, Pharmacy: [facility]/pharmacy #6177, 148, cm, 03/21/23 8:51:00 EST, Height/Length [...] # 5 tab(s), Refills(s) 0, Pharmacy: [facility]/pharmacy #6177, 148, cm, 03/21/23 8:51:00 EST, Height/Length [...] # 5 tab(s), Refills(s) 0, Pharmacy: [facility]/pharmacy #6177, 148, cm, 03/21/23 8:51:00 EST, Height/Length Dosing, 64, kg, 03/21/23 8:51:00 EST, Weight Dosing Body Mass Index (BMI) documented 3008F Current tobacco non-user 1036F Depression Screening Negative 3352F Influenza immunization administered or previously received 4274F Most r (more content not included)... Normal [facility] Comment on above: Result Comment: [...] numbers. This can be done either in [place] ([place] or metric measurements. Note that charts and online BMI calculators are available to help you find your BMI quickly and easily without having to do these calculations yourself. To calculate your BMI in [place] ([place] measurements: 1. Measure your weight in [...] for Disease Control and Prevention: www.cdc.gov ? [place] Heart Association: www.heart.org ? National Heart, Lung, and Blood Kaplan: www.nhlbi.nih.gov Summary ? Body mass index (BMI) is a number that is calculated from a person's weight and height. ? BMI may help estimate how much of a person's weight is composed of fat. BMI can help identify those who may be at higher risk for certain medical problems. ? BMI can be measured using Egyptian measurements or metric measurements. ? BMI charts are used to identify whether you are underweight, normal weight, overweight, or obese. This information is not intended to replace advice given to you by your health care provider. Make sure you discuss any questions you have with your health care provider. Document Revised: 11/13/2019 Document Reviewed: 09/20/2019 ONtheAIR Patient Education ? 2022 Sleep Number. [facility] Retail - Clinical Noteon Retail - Clinical Note [id number] .00TIFF [facility] Ambulatory Visit Summaryon 1 Ambulatory Visit Summary UNA GOMEZ :1940 Visit Date:03/03/2023 Ambulatory Visit Instructions Your Diagnosis Body mass index [BMI] 28.0-28.9, adult Non-smoker Your Care Team Attending Physician - Marlee Martinez Primary Care Physician - Yaniv Singh MD This Is Your Medications List acetaminophen [...] Appointments Monday 1:15 PM EST With: Yaniv Singh MD Where: [facility] Normal [address] [place] [address] \.br\ Medications\.br\ What How Much When Instructions\.br\ [...] choosing us for your care.\.br\ \.br\ [facility] Family Medicine Office/Clini c Noteon 03-03-2023 [...] day(s), # 6 tab(s), Refills(s) 0, [facility], 148, cm, 03/03/23 13:51:00 EST, Height/Length Dosing, 64.1, kg, 03/03/23 13:51:00 EST, Weight Dosing benzonatate, 200 mg = 1 cap(s), Oral, TID, X 7 day(s), # 21 cap(s), Refills(s) 0, [facility], 148, cm, 03/03/23 13:51:00 EST, Height/Length Dosing, 64.1, kg, 03/03/23 13:51:00 EST, Weight Dosing 4. Non-smoker (Z78.9: Other specified health status) continue not smoking Ordered: azithromycin, = 1 packet(s), Oral, As Directed, as directed on package labeling, X 5 day(s), # 6 tab(s), Refills(s) 0, [facility], 148, cm, 03/03/23 13:51:00 EST, Height/Length Dosing, 64.1, kg, 03/03/23 13:51:00 EST, Weight Dosing benzonatate, 200 mg = 1 cap(s), Oral, TID, X 7 day(s), # 21 cap(s), Refills(s) 0, Pharmacy: [facility] #6177, 148, cm, 03/03/23 13:51:00 EST, Height/Length Dosing, 64.1, kg, 03/03/23 13:51:00 EST, Weight Dosing 5. Cerumen impaction (H61.20: Impacted cerumen, unspecified ear) pt encouraged to get debrox ear drops and use for 1 week then make nurse visit appointment for irrigation Orders: methylPREDNISolone, = 1 packet(s), Oral, Once, as directed on package labeling, # 21 tab(s), Refills(s) 0, Pharmacy: [facility] #6177, 148, cm, 03/03/23 13:51:00 EST, [...] metoprolol 25 m (more content not included)... [facility] Comment on above: Result Comment: Elec tronically Signed By: Marlee Martinez\.br\Date and Time Signed: 03/03/23 15:50 EST Consultation Noteon 12-28-19 Consultation Note [id number] .00TIFF [facility] Immunization Recordson 12-20 Immunization Records [id number] .00TIFF [facility] Discharge Note - PTon 2022 Discharge Note - PT [id number] .00TIFF [facility] Plan of Care - PT/OT/Speecho n 11-28-2022 Plan of Care - PT/OT/Speech [id number] .00CD:127 Normal [facility] Physician Referralon 023 Physician Referral [id number]. 00CD:127 Normal [facility] Discharge Note - PTon 2022 Discharge Note - PT [id number] .00CD:127 Normal [facility] Dexa Scanson 09-27-2022 Dexa Scans [id number] .00CD:127 Normal [facility] Dexa Scanson 09-26-2022 Dexa Scans [id number] .00CD:127 Normal [facility] Family Medicine Office/Clini c Noteon [...] see what (more content not included)... Normal [facility] Comment on above: Result Comment: Elec tronically Signed By: Yaniv Singh MD\.br\Date and Time Signed: 09/22/22 12:58 EDT\.br\Electronically Co-Signed By: Anneliese Anguiano\.br\Date and Time Co-Signed: 09/19/22 12:41 EDT\.br\Electronically Co-Signed By: Anneliese Anguiano\.br\Date and Time Co-Signed: 09/19/22 12:42 EDT Physician Referralon 023 Physician Referral [id number] .00CD:127 Normal [facility] RAD - Ultrasound Reporton RAD - Ultrasound Report [id number] .00CD:127 Normal [facility] PT - Progress Noteson 2022 PT - Progress Notes [id number] .00CD:127 Normal [facility] CHEMISTRYOrdered By: SYSTEM SYSTEM on [...] mg/mg Normal 10 - 20 [facility]on SARS-CoV-2 (COVID-19) RNA JESSIE+probe Ql (Unsp spec) Detected Critically abnormal NOT DETECTED [facility] Comment on above: Result Comment: This test is not yet approved or cleared by the [place] FDA. When there are no FDA-approved or cleared tests available, and other criteria are met, FDA can make tests available under an emergency access mechanism called an Emergency Use Authorization (EUA). The EUA for this test is supported by the [place] of Health and Human Service's declaration that [...] longer be used). Performed By: #### C [facility] #### [facility] [address] [place] [address] Dr. Josie Bauman ECHOCARDIO M/2D COMPLETEon 0 07-19-2021 ECHOCARDIO M/2D COMPLETE Patient: UNA GOMEZ Exam Date: 07/19/2021 : 1940 Gender:F Ordering : DR AMAURY MONTERROSO . Admission #: [id number] Family : Order #: [id number] CLICK HERE TO VIEW EXAM ECHOCARDIOGRAM REPORT [...] Area(A2C): 14.80 cm2 Left Atrium Systolic Volume(A2C): 87570 mm3 Mitral Valve MV E to A [...] Naylor M.D. on 07/19/2021 at 18:28 Normal [facility] KNEE LEFT 3 [facility] 07-16-2020 KNEE LEFT 3 S [facility] Department of Radiology [address] [place] [phone] Patient Name: UNA GOMEZ : 1940 Sex: F Age: Race: White Pt. Location: Patient Status: D Ordered Date: 07/16/2020 2:00:00 PM Completed Date: 07/16/2020 01:59 PM Requesting Provider: NICOLLE JAY Attending Provider: Report Copy To: Signs & Symptoms: M25.561 Pain in right knee I10 History: [place] Comments: , , , Ordering Provider - NICOLLE AJY MD , Exam: KNEE LEFT 3 VWS KNEE LEFT 3 S 07/16/2020 1:59 PM [...] findings. Electronically signed: Trell Amado. Transcribed by: [email or web address], User Resident: TRELL AMADO Electronically Signed by: TRELL AMADO @ 07/17/2020 10:46 AM I personally read this/these film(s) with this resident Normal The [facility] Comment on above: Order Comment: , , = ========= , Ordering Provider - NICOLLE JAY MD , KNEE RIGHT 3 [facility] KNEE RIGHT 3 S [facility] Department of Radiology [address] [place] [phone] Patient Name: UNA GOMEZ : 1940 Sex: F Age: Race: White Pt. Location: Patient Status: D Ordered Date: 07/16/2020 2:00:00 PM Completed Date: 07/16/2020 01:59 PM Requesting Provider: NICOLLE JAY Attending Provider: Report Copy To: Signs & Symptoms: M25.561 Pain in right knee I10 History: [place] Comments: , , , Ordering Provider - NICOLLE JAY MD , Exam: KNEE RIGHT 3 [facility] KNEE RIGHT 3 [facility] 07/16/2020 1:59 PM SIGNS AND SYMPTOMS: M25.561 [...] remodeling. Electronically signed: Trell Amado. Transcribed by: [email or web address], User Resident: TRELL AMADO Electronically Signed by: TRELL AMADO @ 07/17/2020 08:46 AM I personally read this/these film(s) with this resident Normal [facility] Comment on above: Order Comment: , , = ========= , Ordering Provider - NICOLLE JAY MD , HIPS BILATERAL 2 VWS WITH PE LVISon 07-06-2020 HIPS BILATERAL 2 VWS WITH PELVIS [facility] Department of Radiology [address] [place] [phone] Patient Name: UNA GOMEZ : 1940 Sex: F Age: Race: White Pt. Location: Patient Status: O Ordered Date: 07/06/2020 1:25:00 PM Completed Date: 07/06/2020 01:28 PM Requesting Provider: BERTHA MEZA Attending Provider: BERTHA MEZA Report Copy To: AMAURY MONTERROSO Signs & Symptoms: M25.551 Pain in right hip I10 History: [place] Comments: evaluate Exam: HIPS BILATERAL 2 VWS [...] changes. Electronically signed: Lincoln Brooke. Transcribed by: [email or web address], User Resident: Electronically Signed by: LINCOLN BROOKE @ 07/06/2020 02:00 PM Normal [facility] Comment on above: Order Comment: evalu ate Operative Reporton Operative Report MR#: [id number] I [facility] Pt. Name: Una Gomez Room #: [id number] Discharge 04/15/2020 Date: Birthdate: 1940 OPERATIVE REPORT DATE OF SURGERY: 04/14/2020 SURGEON: Bertha Meza MD SUPERVISOR DRY CELL ASSEMBLY: Bruno Schafer MD. ANESTHESIA: General with interscalene [...] osteoarthritis of the left shoulder joint with xjpb-su-wegf as well as severe massive retracted chronic [...] was then placed in a spider arm amr and positioner. A time-out was next performed [...] cou (more content not included)... Normal [facility] HEMOGLOBINon 04-14-2020 Hemoglobin (Bld) [Mass/Vol] 12.7 g/dL Normal 12.0-15.0 [facility] Comment on above: Order Comment: No: D o not add to previous draw Performed By: #### 9 2089 #### [address] POC GLUCOSE LABon 04-14-2020 Glucose [Mass/Vol] 97 mg/dL Normal 70-100 [facility] Comment on above: Performed By: #### 8 5499 #### [address] PORTABLE SHOULDER LEFT 2 VWS on 04-14-2020 PORTABLE SHOULDER LEFT 2 VWS [facility] Department of Radiology [address] [place] [phone] Patient Name: UNA GOMEZ : 1940 Sex: F Age: Race: White Pt. Location: [place] [address] Patient Status: I Ordered Date: 04/14/2020 5:10:00 [...] with no gross hardware failure Electronically signed: Efrain Ingram. Transcribed by: [email or web address], User Resident: EFRAIN INGRAM Electronically Signed by: EFRAIN INGRAM @ 04/14/2020 06:12 PM I personally read this/these film(s) with this resident Normal [facility] Comment on above: Order Comment: Hardw are Evaluation, in PACU Vital Signs Date Time Vital Sign Value Performing Clinician Facility 04-10-2024 11:34-0500 Body height 149.86 cm Yaniv Singh MD Work Phone: [facility] 04-10-2024 11:34-0500 Body mass index (BMI) [Ratio] 26 kg/m2 Yaniv Singh MD Work Phone: [facility] 04-10-2024 11:34-0500 Body weight 58.51 kg Yaniv Singh MD Work Phone: [facility] 04-10-2024 11:34-0500 Diastolic blood pressure 70 mm[Hg] Yaniv Singh MD Work Phone: [facility] 04-10-2024 11:34-0500 Heart rate 76 /min Yaniv Singh MD Work Phone: [facility] 04-10-2024 11:34-0500 Systolic blood pressure 139 mm[Hg] Yaniv Singh MD Work Phone: [facility] 02-07-2023 15:15-0500 Body height 149.86 cm Imad Asaad Other [facility] Other 02-07-2023 15:15-0500 Body mass index (BMI) [Ratio] 27.87 kg/m2 Imad Asaad Other [facility] Other 02-07-2023 15:15-0500 Body weight 62.6 kg Imad Asaad Other [facility] Other 02-07-2023 15:15-0500 Diastolic blood pressure 63 mm[Hg] Imad Asaad Other [facility] Other 02-07-2023 15:15-0500 Systolic blood pressure 129 mm[Hg] Imad Asaad Other [facility] Other 12-13-2022 14:15-0400 Body height 149.86 cm Imad Asaad Other [facility] Other 12-13-2022 14:15-0400 Body mass index (BMI) [Ratio] 29.28 kg/m2 Imad Asaad Other [facility] Other 12-13-2022 14:15-0400 Body weight 65.77 kg Imad Asaad Other [facility] Other 12-13-2022 14:15-0400 Diastolic blood pressure 63 mm[Hg] Imad Asaad Other [facility] Other 12-13-2022 14:15-0400 Systolic blood pressure 140 mm[Hg] Imad Asaad Other [facility] [place] Other Encounters Encounter Date Encounter Type Care Provider Facility Start: 09-09-2024 ambulatory Yaniv Singh Facility :[facility] Start: 05-08-2024 End: 05-08-2024 ambulatory Yaniv Singh Facility:[facility] Start: 04-10-2024 End: 04-10-2024 ambulatory Yaniv Singh MD Work Phone: [facility] Work Phone: Start: 04-10-2024 End: 04-10-2024 Patient encounter procedure Yaniv Singh MD Work Phone: [facility] Work Phone: Start: 04-08-2024 End: 04-08-2024 ambulatory Yaniv Singh Facility:[facility] Start: 03-05-2024 End: 03-05-2024 Patient encounter procedure Yaniv Singh MD Work Phone: [facility] Work Phone: Start: 03-05-2024 End: 03-05-2024 ambulatory Imad Asaad Facility:[facility] Start: 02-21-2024 End: 02-21-2024 Bamboo flowsheet Ottoniel Wills DO Work Phone: [facility] Start: 02-21-2024 End: 02-21-2024 Bamboo flowsheet Ottoniel Wills DO Work Phone: [facility] Start: 02-21-2024 End: 02-21-2024 ambulatory OTTONIEL WILLS Not Available Start: 02-13-2024 End: 02-13-2024 ambulatory MD Yaniv Singh Facility:[facility] Start: 01-22-2024 End: 01-22-2024 Telephone encounter Klaus Kalpana Mckeon DO Work Phone: [facility] Start: 01-16-2024 End: 01-16-2024 ambulatory Yaniv Singh Facility:[facility] [facility] Start: 01-08-2024 End: 01-08-2024 ambulatory Yaniv Singh Facility:[facility] [place] [facility] Start: 01-03-2024 End: 01-03-2024 ambulatory Marlee L Yun Facility:[facility] [place] [facility] Start: 12-11-2023 End: 12-11-2023 Lab Drop off MELISSA A DIONTE [facility] Start: 12-11-2023 End: 12-11-2023 ambulatory MD Yaniv Singh Facility:[facility] Start: 11-30-2023 End: 11-30-2023 ambulatory [facility] Start: 11-20-2023 End: 11-20-2023 Bamboo flowsheet Ottoniel Wills DO Work Phone: [facility] Start: 11-20-2023 End: 11-20-2023 Bamboo flowsheet Ottoniel Sanchezhler DO Work Phone: [facility] Start: 11-20-2023 End: 11-20-2023 ambulatory OTTONIEL WILLS Not Available Start: 09-19-2023 End: 09-19-2023 ambulatory Yaniv Singh Facility:[facility] Start: 09-18-2023 End: 09-18-2023 Lab Drop off Yaniv Singh [facility] Start: 09-18-2023 End: 09-18-2023 ambulatory Yaniv Singh Facility:[facility] Start: 09-14-2023 End: 09-14-2023 ambulatory Marlee L Yun Facility:[facility] Start: 08-02-2023 End: 08-02-2023 ambulatory OTTONIEL D ZAHLER Not Available Start: 07-19-2023 End: 07-19-2023 ambulatory OTTONIEL D ZAHLER Not Available Start: 07-19-2023 End: 07-19-2023 ambulatory LEA WALLACE Facility:[facility] Start: 07-10-2023 End: 07-10-2023 ambulatory Yaniv Singh Facility:[facility] Start: 06-27-2023 End: 06-27-2023 ambulatory Yaniv Singh Facility:[facility] Start: 04-13-2023 End: 04-13-2023 ambulatory JUAN [facility] Start: 04-10-2023 End: 04-10-2023 ambulatory [facility] Start: 03-22-2023 End: 03-22-2023 ambulatory OTTONIEL WILLS Not Available Start: 03-21-2023 End: 03-21-2023 ambulatory Yaniv Singh Facility:[facility] Start: 03-03-2023 End: 03-03-2023 ambulatory Marele L Yun Facility:[facility] Start: 02-07-2023 End: 02-07-2023 ambulatory Imad Asaad Other [facility] [place] Other Start: 02-07-2023 Office outpatient ne w 45 minutes Imad Asaad [facility] Start: 12-26-2022 ambulatory Yaniv Singh Facility :[facility] Start: 12-13-2022 End: 12-13-2022 ambulatory Imad Asaad Other [facility] Other Start: 12-13-2022 Office outpatient ne w 45 minutes Imad Asaad [facility] Start: 10-12-2022 ambulatory Yaniv Singh Facility:[facility] Start: 09-19-2022 End: 09-19-2022 ambulatory Yaniv Singh Facility:[facility] Start: 09-09-2022 End: 09-09-2022 Lab Drop off Marlee Malcolm [facility] Start: 06-08-2022 End: 06-09-2022 ambulatory CASEY GARSIA Facility:[facility] Start: 03-03-2022 End: 03-04-2022 ambulatory CASEY GARSIA Facility:[facility] Start: 01-03-2022 End: 01-04-2022 ambulatory TAISHA ANGELITO Facility:[facility] Start: 12-22-2021 End: 02-10-[address] AMAURY MONTERROSO . Facility:[facility] Start: 11-29-2021 End: 11-30-2021 ambulatory CASEY GARSIA Facility:[facility] Start: 09-07-2021 End: 09-07-[address] AMAURY MONTERROSO . Facility:[facility] Start: 08-27-2021 End: 08-28-2021 ambulatory CASEY GARSIA Facility:[facility] Start: 07-19-2021 End: 07-20-[address] AMAURY MONTERROSO . 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 Ottoniel Wills DO Work Phone: Comment on above: Advanced atrophic no nexudative age-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 involvement (Primary Dx); Dry eyes; Blepharitis of upper and lower eyelids of both eyes, unspecified type Start: 11-20-2023 Computerized ophthal karolyn imaging retina Ottoniel Wills DO Work Phone: Start: 11-20-2023 End: 11-20-2023 Ophth medical xm&eval intermediate estab pt 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 Ottoniel Wills DO Work Phone: Comment on above: Advanced atrophic no nexudative age-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 involvement (Primary Dx); Dry eyes; Blepharitis of upper and lower eyelids of both eyes, unspecified type Start: 04-15-2020 ASSISTANCE WITH RESPIRATORY VENTILATION, <24 HRS OSAMA ELATTAR Start: 04-14-2020 REPLACEMENT OF L ABIGAIL ULDER JT WITH SYNTH SUB, OPEN APPROACH OSAMA ELATTAR Start: 04-14-2020 REPOSITION LEFT UPPE R ARM TENDON, OPEN APPROACH OSAMA ELATTAR Bilateral cataracts (disorder) Marlee Yun Cholecystectomy Marlee Yun Prosthetic arthropla sty of shoulder Marlee Yun Comment on above: right 2019 Plan of Treatment Date Care Activity Detail Author Start: 08-13-2024 ambulatory Ambulatory Facility:[facility] Start: 03-05-2024 [facility] Start: 02-21-2024 End: 02-21-2024 Patient encounter procedure [facility] Comment on above: Arrived Start: 11-20-2023 End: 11-20-2023 Patient encounter procedure 11/20/2023 1:30 PM EDT Office Visit [facility] [address] [place] [id number] Ottoniel Wills DO [address] [place] [address] Arrived [facility] Comment on above: Arrived Start: 11-05-2023 Influenza vaccination Influenza Vacc ine (#1) [facility] Immunizations Immunization Date Immunization Notes Care Provider Fa cility 01-23-2024 influenza virus vacc ine, unspecified formulation Ottoniel Wills DO Work Phone: [facility] 12-14-2022 influenza virus vacc ine, unspecified formulation Yaniv Singh [facility] 02-10-2022 SARS-CoV-2 (COVID-19 ) [id number].ORD![id number] Marlee Yun [facility] 12-27-2021 influenza virus vacc ine, unspecified formulation Marlee Yun [facility] 03-17-2021 SARS-CoV-2 (COVID-19 ) mRNA-1273 vaccine Marlee Yun [facility] Comment on above: Result Comment: 2022: [id number] 02-10-2021 influenza virus vacc ine, unspecified formulation Marlee Yun [facility] 09-11-2020 pneumococcal polysaccharide vaccine, 23 valent Marlee Yun [facility] 05-05-2020 SARS-CoV-2 (COVID-19 ) mRNA-1273 vaccine Marlee Yun [facility] 04-07-2020 SARS-CoV-2 (COVID-19 ) mRNA-1273 vaccine Marlee Yun [facility] 09-12-2019 pneumococcal conjuga te vaccine, 13 valent Marlee Yun [facility] 02-01-2019 influenza virus vacc ine, unspecified formulation Marlee Yun [facility] 01-30-2018 influenza virus vacc ine, unspecified formulation Marlee Yun [facility] 03-04-2016 influenza virus vacc ine, unspecified formulation Marlee Yun [facility] 03-18-2015 influenza virus vacc ine, unspecified formulation [facility] 01-17-2005 influenza, whole Marlee Malcolm [facility] Payers Date Payer Category Payer Self-pay 2021 Medicaid [id number] 2021 Medicare [id number] 1959 Medicare [id number] 1940 Unknown [id number] 2.16.8 40.1.125123.3.579.2.647 1938 Unknown [id number] 2.16.84 0.1.443404.3.579.2.593 1938 Unknown [id number] 2.16.84 0.1.858729.3.579.2.593 1938 Unknown [id number] 2.16.84 0.1.444269.3.579.2.593 1938 Unknown [id number] 2.16.84 0.1.021281.3.579.2.593 1938 Unknown [id number] 2.16.84 0.1.605643.3.579.2.593 1938 Unknown [id number] 2.16.84 0.1.738714.3.579.2.593 1938 Unknown [id number] 2.16.84 0.1.827467.3.579.2.593 1938 Unknown [id number] 2.16.84 0.1.429068.3.579.2.593 1938 Unknown [id number] 2.16.8 40.1.263536.3.579.2.727 1938 Unknown [id number] 2.16.8 40.1.934404.3.579.2. 1938 Unknown [id number] 2.16.8 40.1.231413.3.579.2. 1938 Unknown [id number] 2.16.8 40.1.600604.3.579.2. 1938 Unknown [id number] 2.16.8 40.1.248883.3.579.2. 1938 Unknown [id number] 2.16.8 40.1.112937.3.579.2 1938 Unknown [id number] 2.16.8 40.1.728379.3.579.2 1938 Unknown [id number] 2.16.8 40.1.262059.3.579.2 1938 Unknown [id number] 2.16.8 40.1.135361.3.579.2 1938 Unknown [id number] 2.16.8 40.1.578593.3.579.2 1938 Unknown [id number] 2.16.8 40.1.288889.3.579.2 1938 Unknown [id number] 2.16.8 40.1.584579.3.579.2 1938 Unknown [id number] 2.16.8 40.1.184164.3.579.2. 1938 Unknown [id number] 2.16.8 40.1.382413.3.579.2 1938 Unknown [id number] 2.16.8 40.1.505104.3.579.2 1938 Unknown [id number] 2.16.84 0.1.804556.3.579.2.1259 1938 Unknown [id number] 2.16.84 0.1.814325.3.579.2.1259 1938 Unknown [id number] 2.16.84 0.1.421793.3.579.2.1259 1938 Unknown [id number] 2.16.84 0.1.674170.3.579.2.1259 1938 Unknown [id number] 2.16.84 0.1.055411.3.579.2.1259 1938 Unknown [id number] 2.16.8 40.1.961652.3.579.2.727 1938 Unknown [id number] 2.16.8 40.1.765835.3.579.2.727 1938 Unknown [id number] 2.16.8 40.1.768898.3.579.2.727 1938 Unknown [id number] 2.16.8 40.1.925884.3.579.2.727 1938 Unknown [id number] 2.16.8 40.1.648605.3.579.2.727 Private Health Insurance [facility] [id number] Unknown [id number] 2.16.8 40.1.342117.3.579.2.531 Unknown [id number] 2.16.8 40.1.941129.3.579.2.531 Social History Date Type Detail Facility Start: 09-08-2022 End: 09-19-2022 Tobacco smoking status Never smoked tobacco (finding) [facility] Tobacco smoking status Never [facility] Start: 09-19-2022 End: 08-02-2023 Sex Assigned At Female [facility] Start: 09-19-2022 Tobacco use and exposure Smokeless tobacco non-user [facility] Start: 08-02-2023 End: 02-21-2024 Alcoholic beverage intake Lifetime non-drinker (finding) [facility] Start: 09-19-2022 End: 08-02-2023 History of Social function [facility] Start: 12-07-2022 Alcohol Comment caffeine: 1-2 cups per day [facility] Start: 1940 Sex assigned at Female [facility] Start: 11-16-2022 Gender identity Identifies as female gender (finding) [facility] Tobacco smoking status NHIS Unknown if ever smoked [facility] Work Phone: Start: 04-10-2024 Sex Female (finding) [facility] NEGATED: Highlighted rowStart: MIRNA History of tobacco use Passive smoker [facility] Clinical Notes 04-22-2020 to 04-08-2024 Ottoniel Wills, DO - 02/21/2024 1:45 PM ESTTelephone Encounter - Julia Webber - 01/22/2024 2:55 PM ESTTelephone Encounter - Julia Webber - 01/22/2024 2:55 PM EST Note Date & Type Note Facility 04-08-2024 Note Patient Education Nutrition BMI for Adults Body mass index (BMI) is a number found using a person's weight and height. BMI can help tell how much of a person's weight is made up of fat. BMI does not measure body fat directly. It is used instead of tests that directly measure body fat, which can be difficult and expensive. What are BMI measurements used for? BMI is useful to: ??? Find out if your weight puts you at higher risk for medical problems. ??? Help recommend changes, such as in diet and exercise. This can help you reach a healthy weight. BMI screening can be done again to see if these changes are working. How is BMI calculated? Your height and weight are measured. The BMI is found from those numbers. This can be done with U.S. or metric measurements. Note that charts and online BMI calculators are available to help you find your BMI quickly and easily without doing these calculations. To calculate your BMI in U.S. measurements: 1. Measure your weight in pounds (lb). 2. Multiply the number of pounds by 703. ??? So, for an adult who weighs 150 lb, multiply that number by 703: 150 x 703, which equals 105,450. 3. Measure your height in inches. Then multiply that number by itself to get a measurement called inches squared. ??? So, for an adult who is 70 inches tall, the inches squared measurement is 70 inches x 70 inches, which equals 4,900 inches squared. 4. Divide the total from step 2 (number of lb x 703) by the total from step 3 (inches squared): 105,450 ? 4,900 = 21.5. This is your BMI. To calculate your BMI in metric measurements: 1. Measure your weight in kilograms (kg). ??? For this example, the weight is 70 kg. 2. Measure your height in meters (m). Then multiply that number by itself to get a measurement called meters squared. ??? So, for an adult who is 1.75 m tall, the meters squared measurement is 1.75 m x 1.75 m, which equals 3.1 meters squared. 3. Divide the number of kilograms (your weight) by the meters squared number. In this example: 70 ? 3.1 = 22.6. This is your BMI. What do the results mean? BMI charts are used to see if you are underweight, normal weight, overweight, or obese. The following guidelines will be used: ??? Underweight: BMI less than 18.5. ??? Normal weight: BMI between 18.5 and 24.9. ??? Overweight: BMI between 25 and 29.9. ??? Obese: BMI of 30 or above. BMI is a tool and cannot diagnose a condition. Talk with your health care provider about what your BMI means for you. Keep these notes in mind: ??? Weight includes fat and muscle. Someone with a muscular build, such as an athlete, may have a BMI that is higher than 24.9. In cases like these, BMI is not a correct measure of body fat. ??? If you have a BMI of 25 or higher, your provider may need to do more testing to find out if excess body fat is the cause. ??? BMI is measured the same way for males and females. Females usually have more body fat than males of the same height and weight. Where to find more information For more information about BMI, including tools to quickly find your BMI, go to: ??? Centers for Disease Control and Prevention: cdc.gov ??? [place] Heart Association: heart.org ??? National Heart, Lung, and Blood Kaplan: nhlbi.nih.gov This information is not intended to replace advice given to you by your health care provider. Make sure you discuss any questions you have with your health care provider. Document Revised: 11/10/2022 Document Reviewed: 11/03/2022 Wolf Patient Education ? 2023 ONtheAIR ShawnaLynn [facility] 02-21-2024 Note Right Eye Quality was good. Scan locations included subfoveal. Progression has been stable. Findings include pigment epithelial detachment. Left Eye Quality was good. Scan locations included subfoveal. Progression has been stable. Findings include pigment epithelial detachment. [facility] 02-21-2024 History of Presen t illness Narrative Images from the original note were not included. 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 Importance of smoking cessation, blood pressure control, and healthy diet were emphasized. Patient was advised to consider ultraviolet-B blocking sunglasses. In accordance with the AREDS study, appropriate antioxidant and mineral supplements were prescribed. Patient was instructed to self monitor their monocular vision (reading/Amsler Grid) at least weekly. Patient should immediately report any new onset of decreased vision or metamorphopsia. - Adult Vitelliform variant Dry eyes - Dry Eyes OU -- Environmental changes to minimize dryness and exposure and the use of artificial tears were recommended. Blepharitis of upper and lower eyelids of both eyes, unspecified type - Blepharitis, posterior type OU - The patient exhibits inspissated meibomian glands. Warm compresses, lid massage and lid scrubs were recommended. documented in this encounter [facility] 01-22-2024 Telephone encounter Note Spoke with pt informing them that Dr. Bravo did not accept leora as a new patient. Pt voiced understanding [facility] 01-22-2024 Miscellaneous Notes Spoke with pt informing them that Dr. Bravo did not accept leora as a new patient. Pt voiced understanding documented in this encounter [facility] 01-16-2024 Note Patient Education Nutrition BMI for Adults Body mass index (BMI) is a number found using a person's weight and height. BMI can help tell how much of a person's weight is made up of fat. BMI does not measure body fat directly. It is used instead of tests that directly measure body fat, which can be difficult and expensive. What are BMI measurements used for? BMI is useful to: ??? Find out if your weight puts you at higher risk for medical problems. ??? Help recommend changes, such as in diet and exercise. This can help you reach a healthy weight. BMI screening can be done again to see if these changes are working. How is BMI calculated? Your height and weight are measured. The BMI is found from those numbers. This can be done with U.S. or metric measurements. Note that charts and online BMI calculators are available to help you find your BMI quickly and easily without doing these calculations. To calculate your BMI in U.S. measurements: 1. Measure your weight in pounds (lb). 2. Multiply the number of pounds by 703. ??? So, for an adult who weighs 150 lb, multiply that number by 703: 150 x 703, which equals 105,450. 3. Measure your height in inches. Then multiply that number by itself to get a measurement called inches squared. ??? So, for an adult who is 70 inches tall, the inches squared measurement is 70 inches x 70 inches, which equals 4,900 inches squared. 4. Divide the total from step 2 (number of lb x 703) by the total from step 3 (inches squared): 105,450 ? 4,900 = 21.5. This is your BMI. To calculate your BMI in metric measurements: 1. Measure your weight in kilograms (kg). ??? For this example, the weight is 70 kg. 2. Measure your height in meters (m). Then multiply that number by itself to get a measurement called meters squared. ??? So, for an adult who is 1.75 m tall, the meters squared measurement is 1.75 m x 1.75 m, which equals 3.1 meters squared. 3. Divide the number of kilograms (your weight) by the meters squared number. In this example: 70 ? 3.1 = 22.6. This is your BMI. What do the results mean? BMI charts are used to see if you are underweight, normal weight, overweight, or obese. The following guidelines will be used: ??? Underweight: BMI less than 18.5. ??? Normal weight: BMI between 18.5 and 24.9. ??? Overweight: BMI between 25 and 29.9. ??? Obese: BMI of 30 or above. BMI is a tool and cannot diagnose a condition. Talk with your health care provider about what your BMI means for you. Keep these notes in mind: ??? Weight includes fat and muscle. Someone with a muscular build, such as an athlete, may have a BMI that is higher than 24.9. In cases like these, BMI is not a correct measure of body fat. ??? If you have a BMI of 25 or higher, your provider may need to do more testing to find out if excess body fat is the cause. ??? BMI is measured the same way for males and females. Females usually have more body fat than males of the same height and weight. Where to find more information For more information about BMI, including tools to quickly find your BMI, go to: ??? Centers for Disease Control and Prevention: cdc.gov ??? [place] Heart Association: heart.org ??? National Heart, Lung, and Blood Kaplan: nhlbi.nih.gov This information is not intended to replace advice given to you by your health care provider. Make sure you discuss any questions you have with your health care provider. Document Revised: 11/10/2022 Document Reviewed: 11/03/2022 ONtheAIR Patient Education ? 2023 Sleep Number. [facility] 12-11-2023 Note Nurse Consultation N ote Reason for Visit Here for lab draw for Melissa Rodrigez CALCIMINER Assessment/Plan Anticoagulation management encounter (Z51.81: Encounter for therapeutic drug level monitoring) Current use of beta samm (Z79.899: Other kick press setter (current) drug therapy) intermediate (current) use of anticoagulants (Z79.01: outreach manager (current) use of anticoagulants) Medications Albuterol (Eqv-ProAir HFA) 90 mcg/inh inhalation aerosol, See Instructions aspirin, 81 mg, Oral, Daily candesartan 4 mg Tab, See Instructions celecoxib 200 mg Cap, See Instructions digoxin 125 mcg (0.125 mg) Tab, 125 mcg= 1 tab(s), Oral, Daily, 3 refills ICaps AREDS 2, See Instructions levothyroxine 50 mcg (0.05 mg) Tab, See Instructions meclizine 25 mg Tab, 25 mg= 1 [...] traMADol (Unknown) Immunizations Vaccine Date Status Comments influenza virus vaccine, inactivated 12/14/2022 Recorded SARS-CoV-2 (COVID-19) [id number].ORD![id number] 02/10/2022 Recorded influenza virus vaccine, inactivated 12/27/2021 [...] inactivated 03/18/2015 Recorded influenza, whole 01/17/2005 Recorded [facility] 11-30-2023 Note Patient here for 1 y ear follow up aortic valve stenosis, LBBB, and hypertension. Had routine labs w/ lipid panel in September 2023. She denies chest pain, SOB, palpitations, and LE edema. Doing very well. Review of Systems All other systems reviewed and are negative. [facility] 11-30-2023 Note Cardiovascular Medic [facility] SUBJECTIVE No chief complaint on file. Una Gomez is a 83 y.o. female here for follow-up. HPI PMHx: aortic valve stenosis, LBBB, HTN, hx of an irregular beat dx'd many years ago and has been maintained on digoxin She is feeling well. Denies c/o CP, dyspnea, orthopnea, PND, LE edema, dizziness/LH, palpitations, syncope. Patient Active Problem List Diagnosis Advanced atrophic [...] in situ Steatosis of liver Lumbar spondylosis Acute URI Bereavement Cerumen impaction Cough Dysphagia Knee pain, left Left sciatic nerve pain Nasal congestion No past medical history on file. No family history on file. Social History Tobacco Use Smoking status: Never Smokeless tobacco: Never Substance Use Topics Alcohol use: Not Currently Drug use: Never Allergies Allergen Reactions Amoxicillin-Pot Clavulanate Unknown Fluconazole Unknown Other Reaction(s): Unknown Sulfa (Sulfonamide Antibiotics) Unknown Tramadol Unknown Other Reaction(s): Unknown Review of Systems Constitutional: Negative for chills, decreased appetite, fever, malaise/fatigue and weight gain. Cardiovascular: Negative for chest pain, dyspnea on exertion, irregular heartbeat, leg swelling, near-syncope, orthopnea, palpitations, paroxysmal nocturnal dyspnea and syncope. Hematologic/Lymphatic: Negative for bleeding problem. Does not bruise/bleed easily. OBJECTIVE Visit Vitals BP 136/62 (BP Location: Left arm, Patient Position: Sitting) Pulse 84 Ht 1.499 m (4' 11 ) Wt 60.3 kg (133 lb) SpO2 97% BMI 26.86 kg/m??? Smoking Status Never BSA 1.58 m??? Medications: Current Outpatient Medications: aspirin 81 mg EC [...] , Rfl: celecoxib (CeleBREX) 200 mg capsule, 200 mg two times daily., Disp: , Rfl: digoxin (Lanoxin) 125 MCG tablet, Take 1 tablet every day by oral route for 90 days., Disp: , Rfl: metoprolol succinate XL (Toprol-XL) 25 mg 24 hr tablet, Take 25 mg by mouth once daily as directed., Disp: , Rfl: montelukast (Singulair) 10 mg tablet, Take 10 mg by mouth at bedtime., Disp: , Rfl: spironolactone (Aldactone) 25 mg tablet, Take 25 mg by mouth in the morning., Disp: , Rfl: Synthroid 50 mcg tablet, Take 50 mcg by mouth before breakfast., Disp: , Rfl: Physical Exam Vitals reviewed. Constitutional: Appearance: Normal appearance. She is normal weight. HENT: Head: Normocephalic and atraumatic. Right Ear: External ear normal. Left Ear: External ear normal. Eyes: Extraocular Movements: Extraocular movements intact. Conjunctiva/sclera: Conjunctivae normal. Pupils: Pupils are equal, round, and reactive to light. Neck: Vascular: No carotid bruit. Cardiovascular: Rate and Rhythm: Normal rate and regular rhythm. Pulses: Normal pulses. Heart sounds: Normal heart sounds. Pulmonary: Effort: Pulmonary effort is normal. Breath sounds: Normal breath sounds. Abdominal: General: Bowel sounds are normal. Palpations: Abdomen is soft. Musculoskeletal: Cervical back: Neck supple. Right lower leg: No edema. Left lower leg: No edema. Skin: General: Skin is warm and dry. Neurological: General: No focal deficit present. Mental Status: She is alert and oriented to person, place, and time. Psychiatric: Mood and Affect: Mood normal. Behavior: Behavior normal. Thought Content: Thought content normal. Judgment: Judgment normal. Labs: Legacy Encounter on 04/14/2020 Component Date Value Ref Range Status Hemoglobin 04/14/2020 12.7 12.0 - 15.0 g/dL Final No results found for: EXTCMP , BMPR1A , CBCDIF , BNP , LASAP , RED 09/18/2023 Cr 0.7, BUN 19, K 4.1, Na 137, eGFR 84, ALT 23, AST 25 Chol 105, trig 142, LDL direct 60, HDL 32 Blood testing 06/28/2021: Hemoglobin 13.3, platelets 176, potassium 4.3, BUN 10, creatinine 0.86, GFR more than 60, LFTs normal, TSH normal. ECG 01/13/2021: Sinus rhythm, left bundle branch block. Testing/Procedures: Echocardiogram: 10/05/2022 Mild left (more content not included)... [facility] 11-20-2023 Note Right Eye Quality was good. Scan locations included subfoveal. Progression has been stable. Findings include abnormal foveal contour, pigment epithelial detachment. Left Eye Quality was good. Scan locations included subfoveal. Progression has been stable. Findings include abnormal foveal contour, pigment epithelial detachment. Notes Vitelliform change central OU [facility] 11-20-2023 History of Presen t illness Narrative Images from the original note were not included. 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 Importance of smoking cessation, blood pressure control, and healthy diet were emphasized. Patient was advised to consider ultraviolet-B blocking sunglasses. In accordance with the AREDS study, appropriate antioxidant and mineral supplements were prescribed. Patient was instructed to self monitor their monocular vision (reading/Amsler Grid) at least weekly. Patient should immediately report any new onset of decreased vision or metamorphopsia. - Adult Vitelliform variant Dry eyes - Dry Eyes OU -- Environmental changes to minimize dryness and exposure and the use of artificial tears were recommended. Blepharitis of upper and lower eyelids of both eyes, unspecified type - Blepharitis, posterior type OU - The patient exhibits inspissated meibomian glands. Warm compresses, lid massage and lid scrubs were recommended. documented in this encounter [facility] 09-19-2023 Note Patient Education Nutrition BMI for [...] numbers. This can be done either in [place] ([place] or metric measurements. Note that charts and online BMI calculators are available to help you find your BMI quickly and easily without having to do these calculations yourself. To calculate your BMI in [place] ([place] measurements: 1. Measure your weight in [...] for Disease Control and Prevention: www.cdc.gov ? [place] Heart Association: www.heart.org ? National Heart, Lung, and Blood Kaplan: www.nhlbi.nih.gov Summary ? Body mass index (BMI) is a number that is calculated from a person's weight and height. ? BMI may help estimate how much of a person's weight is composed of fat. BMI can help identify those who may be at higher risk for certain medical problems. ? BMI can be measured using Egyptian measurements or metric measurements. ? BMI charts are used to identify whether you are underweight, normal weight, overweight, or obese. This information is not intended to replace advice given to you by your health care provider. Make sure you discuss any questions you have with your health care provider. Document Revised: 11/13/2019 Document Reviewed: 09/20/2019 Elsevier Patient Education ? 2022 Sleep Number. [facility] 09-14-2023 Note Patient Education Mental and [...] pray, or go to a place of scientology. ? Do some deep breathing. To do [...] or salt (sodium). General instructions ? Take [id number]-fbssvre and prescription medicines only as told by [...] Jerica (ADAA): www.adaa.org ? Mental Health Jerica: www.me (more content not included)... [facility] 04-13-2023 Note Chief Complaint: nec k [...] and station Gait: Normal Images: I, Dr. Juan Penn, personally reviewed the images and my personal interpretation are: x ray mutilevel cervical disc degeneration, C4-5 anterolisthesis Assessment and Plan 83 years presents with neck and right shoulder pain Explained the clinical and radiological findings with the patient and discussed management options. Recommended PT, extra strength tylenol Follow up 4-6 Weeks [facility] 04-10-2023 Note Orthopedic Surgery Subjective Chief complaint: [...] pain, acute Bertha Meza MD Orthopedic Surgery, Museum Director [facility] 04/10/23 [facility] 02-07-2023 Evaluation note Encounter Date Diagnosis Assessment Notes Feb, Fatty liver (ICD-10 - K76.0) Patient advised to make life style modifications -diet/exercis e/weight loss. Repeat fibroscan in 1 yr Rto 1 yr [facility] Other 10-10-2023 Evaluation note* Encounter Date Diagnosis Assessment Notes Treatment Notes Treatment Clinical Notes Dec, RUQ pain (ICD-10 - R10.11) [facility] Other 02-17-2021 NoteMR#: [id number] I [facility] Pt. 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 SECONDARY DIAGNOSIS: None. HOSPITAL COURSE: The patient came to the [facility] for left reverse total shoulder arthroplasty on [...] Schafer MD Date Trans: 04/22/2020 06:23 P/vicky [id number] cc: Amaury Monterroso M.D. [address] [place] [id number] Future Appointments Appointment Date:09/19/2022 10:40:00 AM Scheduled Provider:[facility]aniv [facility] Type:FM Open Appointment Date:09/14/2023 11:00:00 AM Scheduled Provider: [facility] Type[facility]FM Medicare Wellness [facility] Future Appointments Appointment Date:09/19/2023 10:00:00 AM Scheduled Provider:Yaniv Singh MD [facility] Appointment Type: Open Appointment Date:09/09/2024 11:00:00 AM Scheduled Provider: Location[facility] Appointment Type:FM Medicare Wellness [facility] Future Appointments Appointment Date:02/13/2024 10:45:00 AM Scheduled Provider:[facility] Open Appointment Date:09/09/2024 11:00:00 AM Scheduled Provider: [facility] Type: Medicare Wellness Subsequent [facility] Evaluation note* Diagnosis 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- Primary Dry eyes Unspecified tear film insufficiency Blepharitis of upper and lower eyelids of both eyes, unspecified type [facility] Diagnosis 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- Primary Dry eyes Unspecified tear film insufficiency Blepharitis of upper and lower eyelids of both eyes, unspecified type [facility] Diagnosis Onset Date Resolution Status Admit Date Fatty liver acute April 10, 2024 11:29am [facility] Work Phone: History general Narrative - Reported* Type Description Date Medical History ASTHMA Medical History VERTIGO Medical History ESOPHAGEAL STRICTURE Surgical History SHOULDER REPLACEMENT Surgical History CHOLECYSTECOMY Hospitalization History SEE ABOVE [facility] Other Hospital course Narrative No data available for this section [facility] No data available for this section [facility] No data available for this section [facility] Summary Purpose Family History No Family History Records Found Relationship Condition Age at Onset Recorded Date/T lisa mother Malignant neoplasm of breast Unknown father Dementia Unknown father Unknown mother Unknown Advance Directives No Advanced Directives Records Found Advance Directive Response Recorded Date/ Time Advance Directives No July 13 8:38am Chief Complaint and Reason for Visit Chief Complaint Admit Date fatty liver March 05, 2024 12:53pm 1 yr f/u-fatty liver April 10, 2024 11:29am Reason for Visit Admit Date Fatty liver April 10, 2024 1 1:29am Additional Source Comments INFORMATION SOURCE (unrecogn ized section and content) DATE CREATED AUTHOR 04/11/2021 [facility] DATE CREATED AUTHOR AUTHOR'S ORGANIZ ATION 07/07/2022 [facility] DATE CREATED AUTHOR AUTHOR'S ORGANIZ ATION 09/20/2023 [facility] DATE CREATED AUTHOR AUTHOR'S ORGANIZ ATION 09/22/[address] [facility] DATE CREATED AUTHOR AUTHOR'S ORGANIZ ATION 12/14/2023 [facility] DATE CREATED AUTHOR AUTHOR'S ORGANIZ ATION 02/15/[address] [facility] DATE CREATED AUTHOR AUTHOR'S ORGANIZ ATION 02/24/2024 [facility] dical 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 Start Date End Date Yaniv Singh MD [address] [place] [address] PCP - General Family Medicine 11/20/23 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 Start Date End Date Yaniv Singh MD [address] [place] [address] PCP - [facility] Medicine 11/20/23 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 Start Date End Date Yaniv Singh MD [address] [place] [address] PCP - [facility] 11/20/23 Team Status: Active Member Role Status Dates Yaniv Singh MD Primary Care Provider Active Team Status: Inactive Member Role Status Dates Yaniv Singh MD Primary Care Provider Active Start: March 05, 2024 End: March 05, 2024 Marija Vega MD Attending Provider Active Start: March 05, 2024 End: March 05, 2024 Team Status: Inactive Member Role Status Dates Yaniv Singh MD Primary Care Provider Active Start: April 10, 2024 End: April 10, 2024 Marija Vega MD Attending Provider Active Start: April 10, 2024 End: April 10, 2024 REASON FOR VISIT (unrecogniz ed section and content) Reason Comments Annual Exam Follow-up Reason Comments Follow-up Goals (unrecognized section and content) Goals may be documented in a n alternate section FOR RECORDS PERTAINING TO PATIENTS WHO ARE [...] BE BASED ON THE PRIMARY CLINICAL RECORDS. [facility] [employer] provides no warranty or guarantee of the accuracy or completeness of information in this document.
== END 2024-05-13 10:07 | disposition home or self-care (01) ==
PROVIDERS: Emergency Provider Emergency Medicine; PCP Family Medicine
DX: L84 Corns and callosities (principal); Z90.49 Acquired absence of other specified parts of digestive tract; Z96.612 Presence of left artificial shoulder joint; Z96.611 Presence of right artificial shoulder joint
CPT/HCPCS: 99281

== ENCOUNTER 2024-07-25 13:25 | Outpatient (OUT) | payer MEDICARE, SELFPAY ==
--- OUTSIDE RECORDS SUMMARY | 2024-07-24 09:42 | XMS_ITS ---
Author Name Auto Generated Organization [place] Care Team Providers Care Fretted Instruments Inspector Name Role Phone ROGER SCHULER Attending Unavailable MELISSA RODRIGEZ Attending Unavailable Marlee Malcolm Attending Unavailable Yaniv Singh Attending Unavailable Yaniv Singh Attending Unavailable Yaniv Singh Attending Unavailable Marlee Malcolm Attending Unavailable Marlee Malcolm Attending Unavailable DIONTE, MELISSA A Admitting Unavailable ROSE RODRIGEZINDA A Attending Unavailable Yaniv Singh Admitting Unavailable Yaniv Singh Attending Unavailable Yaniv Singh Attending Unavailable Yaniv Singh Admitting Unavailable DIONTE, MELISSA A Admitting Unavailable DIONTE, MELISSA A Attending Unavailable Yaniv Singh Attending Unavailable Yaniv Singh Attending Unavailable Yaniv Singh Attending Unavailable Yaniv Singh Attending Unavailable Yaniv Singh Attending Unavailable Yaniv Singh Primary Care Unavailable Asaangel Imangel Admitting Unavailable Marija Vega Attending Unavailable Fred Hernandez II Admitting UnavailFred Adam II Attending Unavailnery e Yaniv Singh Primary Care Unavailable OTTONIEL LOUISE Attending Unavailable OTTONIEL LOUISE Attending Unavailable OTTONIEL LOUISE Attending Unavailable ULI RAGSDALE Attending Unavailable ULI RAGSDALE Attending Unavailable OTTONIEL LOUISE Attending Unavailable PROBLEMS DATE TYPE CONDITION / CODE ATTENDING STATUS [facility] 07/24/2024 Admitting Diagnosis Acute poliomyelitis, unspecified / A80.9(ICD-10) KELL [facility] 07/24/2024 Admitting Diagnosis Pain in right hip / M25.551(ICD-10) KELL [facility] 07/24/2024 Admitting Diagnosis Other chronic pain / G89.29(ICD-10) ANASTACIO [facility] 05/08/2024 Unknown Pain in right hi p / M25.551(ICD-10) Fred Hernandez II [facility] 03/05/2024 Unknown Fatty (change of ) liver, not elsewhere classified / K76.0(ICD-10) Asaangel, Imad [facility] 11/30/2023 Admitting Diagnosis Encounter for therapeutic drug level monitoring / Z51.81(ICD-10) MELISSA RODRIGEZ [facility] 11/30/2023 Admitting Diagnosis Other admissions clinician (current) drug therapy / Z79.899(ICD-10) MELISSA RODRIGEZ [facility] 11/30/2023 Admitting Diagnosis Rheumatic disorders of both mitral and aortic valves / I08.0(ICD-10) MELISSA RODRIGEZ [facility] 11/30/2023 Admitting Diagnosis Hypertensive heart disease without heart failure / I11.9(ICD-10) MELISSA RODRIGEZ [facility] PROCEDURES No Procedure Records Found RESULTS OFFICE VISIT Observed: 07/24/2024 10:00 AM Status: COMPLETED Source: [facility] [id number] Una Gomez 1940 F Date Provider Department Center 07/24/2024 425-ROGER SCHULER MP PHYS MED Medical Pavi No family history on file Level of Service:58568 [place] OFFICE/OUTPATIENT [facility] 30 MINUTES (GC) Reason for Visit and Comments: Hip Pain [840146] - Right Leg Pain [[id number]] - Right PROGRESS Observed: 07/24/2024 10:00 AM Status: COMPLETED Source: [facility] Attestation signed by Roger Schuler MD at 07/24/2024 12:32 PM By using the attestations below, the signing clinician agrees that I have read and verify that the documentation has been personally reviewed by me and ensure that the documentation accurately reflects the encounter. GC: I personally saw this patient on the day of the encounter, performed the penaloza portion(s) of the service and participated in the management and confirm the resident's documentation. Please note there may be an additional personal documentation from me. Seen with Dr. Dior Agree with the resident. Explained that I do not feel her polio is a contraindication to right WALLACE. Explained symptoms of post-polio syndrome and need for submaximal exertion when she rehabilitates. Follow up as needed. I spent 30 minutes of total time on the day of the visit. This time was spent preparing for the visit, obtaining and reviewing any outside history/data, taking a history, performing an exam/evaluation, counseling and educating the patient/family about the diagnosis and plan, performing medical decision making, referring to and communicating with other health care referrals, independently interpreting results and documenting in the EMR, and coordinating care. Please see the additional documentation in this note for specific details. ASSESSMENT/PLAN: Una Alejandre was seen today for hip pain and leg pain. Diagnoses and all orders for this visit: Poliomyelitis (Primary) Chronic right hip pain No ref. provider found Assessment: 84-year-old female with history of poliomyelitis affecting the right lower extremity presenting for evaluation of chronic right hip pain. She has previously been evaluated by orthopedic surgery at an outside clinic near her home in the [facility] who she reports recommended right total hip arthroplasty for treatment of severe osteoarthritis that is likely a major contributor to her pain and limits her functionally. She came to see us today to determine whether or not the pain she is experiencing in her right hip and right lower extremity could be associated with postpolio syndrome and inquires about our opinion regarding her undergoing right WALLACE. Overall she does not demonstrate clinical signs of post polio syndrome given absence or worsening weakness/fatigue in the RLE. We do feel that she would benefit from R WALLACE for severe right hip arthritis if deemed an appropriate candidate by her surgeon. Plan: - provided education regarding polio vs post-polio syndrome along with exercise and rehabilitation techniques focusing on avoiding maximal exertion as to not overstress and burnout her affected motor nerves in the RLE - given severity of her hip arthritis, we recommended following up with orthopaedic surgery for consideration of right WALLACE. We additionally reviewed conservative treatments including physical therapy, NSAIDS, injections, and various modalities - follow up with us as needed Risks, and benefits to any new medications were discussed with patient. All questions answered to patient's satisfaction. The patient was instructed to call if symptoms are worsening or not improving. The patient was counseled regarding impressions, instructions for management and importance of compliance with treatment. Flash Dior MD SUBJECTIVE: Una Gomez is a 84 y.o. female who presents to [facility] today for hip pain in the setting of polio disease. HPI: She reports being diagnosed with poliomyelitis when she was 3 years old. Since then she has had stable right lower extremity weakness and diffuse muscle atrophy at the level of her hip and distally since then. She denies appreciable changes in strength level in the right lower extremity over the past months to years. For the past several years, she has been experiencing pain on the outside and front aspect of her right hip which radiates into her groin area. She does not have similar symptoms on the left. She denies back pain. She denies knee or ankle pain. She does have a history of bilateral shoulder replacements for treatment of arthritis. She has not had recent falls. She denies any new focal weakness. She does have burning pain in her right lower extremity at the level of her knee and distally. She does not have any numbness or tingling. Hip pain is improved with relative rest. It is worse with exertion and with bending over. It is difficult to get in and out of cars due to pain. She takes Celebrex for treatment of this. She is unsure how much this helps. She has not had recent physical therapy. She has not tried injections or other treatment options thus far. 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 She is independent with driving and uses a two-pedal system. She is independent with ADLs and ambulates without a device for short distances but uses a manual wheelchair for long distances in the community. Review of Systems No fevers or chills Patient Active Problem List Diagnosis Advanced atrophic [...] hip Osteoporosis Over weight Post poliomyelitis syndrome (CMS/HCC) Restless legs syndrome Right upper quadrant pain Shoulder pain Squamous cell carcinoma in situ Steatosis of liver Lumbar spondylosis Acute URI Bereavement Cerumen impaction Cough Dysphagia Knee pain, left Left sciatic nerve pain Nasal congestion Outpatient Medications Prior to Visit Medication Sig Dispense Refill aspirin 81 mg EC tablet 1 (one) time each day at the same time. budesonide-formoteroL (Symbicort) 80-4.5 mcg/actuation inhaler Inhale 1 puff twice a day by inhalation route for 90 days. candesartan (Atacand) 4 mg tablet Take 1 tablet every day by oral route for 90 days. celecoxib (CeleBREX) 200 mg capsule 200 mg two times daily. digoxin (Lanoxin) 125 MCG tablet Take 1 tablet every day by oral route for 90 days. metoprolol succinate XL (Toprol-XL) 25 mg 24 hr tablet Take 25 mg by mouth once daily as directed. montelukast (Singulair) 10 mg tablet Take 10 mg by mouth at bedtime. spironolactone (Aldactone) 25 mg tablet Take 25 mg by mouth in the morning. Synthroid 50 mcg tablet Take 50 mcg by mouth before breakfast. No facility-administered medications prior to visit. Allergies Allergen Reactions Amoxicillin-Pot Clavulanate Unknown Fluconazole Unknown Other Reaction(s): Unknown Sulfa (Sulfonamide Antibiotics) Unknown Tramadol Unknown Other Reaction(s): Unknown OBJECTIVE: Vitals: 07/24/24 0945 BP: 122/78 BP Location: Left arm Patient Position: Sitting BP Cuff Size: Adult Pulse: 97 Weight: 56.7 kg (125 lb) Height: 1.499 m (4' 11 ) Body mass index is 25.25 kg/m???. Physical Exam: General: No acute distress, conversant HEENT: Normocephalic nontraumatic Cardiac: Limbs warm to touch Lungs: Normal rate, no respiratory distress Extremity: No significant edema Psychiatric: Normal mood and affect Skin: Warm to touch, no obvious lesions NEURO-MUSCULOSKELETAL: - Alert and oriented, no dysarthria and no word finding difficulty, follows all commands, sensation intact to light touch - she is wearing an AFO on the right - R leg is grossly atrophied compared to left - Gross Spine Alignment : normal - Tenderness: nontender to palpation - Range of motion Cervical spine: nonlimited - Range of motion lumbar spine: nonlimited Strength - Biceps strength: 5/5 bilaterally - Wrist extension: 5/5 bilaterally - Triceps strength: 5/5 bilaterally - Finger flexor: 5/5 bilaterally - Finger abduction strength: 5/5 - Flexion at the hip strength: 5/5 - Quadriceps strength: 4/5 on the right compared to 5/5 on the left - Tibialis anterior strength: 4/5 on the right compared to 5/5 on the left - Plantar flexion strength: 3/5 on the right compared to 5/5 on the left - Extensor Hallicis Longus strength: 3/5 on the right compared to 5/5 on the left Reflexes - Biceps reflex: 2+ - Brachioradialis reflex: 2+ - Triceps reflex: 2+ - Patellar reflex: 2+ - Achilles reflex: 2+ - Babinski- negative bilaterally Gait and station - Gait: Normal - Tandem gait: Able Right hip - Scour testing positive - Logroll testing positive - OLU and FADIR testing negative Left Hip - Scour testing positive - Logroll testing negative - OLU and FADIR testing negative Studies Reviewed: 07/06/2020 x-ray hips bilateral demonstrate severe joint space narrowing, near complete This note was completed using a voice market garden worker system. Every effort was made to ensure accuracy; however, inadvertent computerized market garden worker errors may be present, please contact MD if any information is unclear. [facility] MEDICINE OFFICE/CLINI C NOTE Observed: 05/20/2024 11:06 AM Status: F Source: [facility] Medicine Office/Clini c Note HPI Staff Una is a 84 year old female presenting for acute sick visit Respiratory C/O: Onset: 4 days Body aches: no Chest congestion: yes Chills: no Cough: yes Sputum production: yes Sore throat: Ear complaints: no Eye itching/watering: no Fever: no Headache: no Nasal congestion: yes Nasal discharge: yes Poor appetite: no Reduced activity: no Sinus pain/pressure: yes Sneezing: no Wheezing: no Ill contacts: no Remedies tried: vitamin c Questions/Concerns: Today did start to feel SOB History of Present Illness pt presents today with c/o URI symptoms Review of Systems PHQ Score Initial Depression Screen Score: 0 SCORE Physical Exam Vitals & Measurements HR: 72(Peripheral) RR: 18 BP: 122/64 SpO2: 96% HT: 58 in HT: 147.0 cm WT: 58.5 kg WT: 128.97 lb BMI: 27.07 General: alert, no acute distress ENMT: oral mucosa moist, no pharyngeal erythema or exudate, nasal turnbinated red and swollen, sinus tenderness Cardiovascular: regular rate and rhythm, normal peripheral perfusion Respiratory: Lungs CTA, respirations non labored Extremities: no deformity, no trauma Neurological: oriented x 4, LOC appropriate for age, CN II-XII intact, motor strength equal & normal bilaterally, speech normal Assessment/Plan 1. Sinusitis (J32.9: Chronic sinusitis, unspecified) sinus tenderness, nasal congestion, cough. will treat with z teresa and medrol dose pack since she is allergic to augmentin. Ordered: azithromycin, = 1 packet(s), Oral, As Directed, as directed on package labeling, X 5 day(s), # 6 tab(s), Refills(s) 0, [id number] 147, cm, 05/20/24 10:52:00 EDT, Height/Length Dosing, 58.5, kg, 05/20/24 10:52:00 EDT, Weight Dosing brompheniramine/dextromethorphan/PSE, 5 mL, Oral, QID for cough and congestion, 200 mL, Refill(s) 0, [id number] 147, cm, 05/20/24 10:52:00 EDT, Height/Length Dosing, 58.5, kg, 05/20/24 10:52:00 EDT, Weight Dosing methylPREDNISolone, = 1 packet(s), Oral, As Directed, as directed on package labeling, X 6 day(s), # 21 tab(s), Refills(s) 0, [id number], 147, cm, 05/20/24 10:52:00 EDT, Height/Length Dosing, 58.5, kg, 05/20/24 10:52:00 EDT, Weight Dosing 2. Cough, (R05.9: Cough, unspecified)Cough covid and flu both negative Ordered: azithromycin, = 1 packet(s), Oral, As Directed, as directed on package labeling, X 5 day(s), # 6 tab(s), Refills(s) 0, [id number], 147, cm, 05/20/24 10:52:00 EDT, Height/Length Dosing, 58.5, kg, 05/20/24 10:52:00 EDT, Weight Dosing brompheniramine/dextromethorphan/PSE, 5 mL, Oral, QID for cough and congestion, 200 mL, Refill(s) 0, [facility]acy #[id number], 147, cm, 05/20/24 10:52:00 EDT, Height/Length Dosing, 58.5, kg, 05/20/24 10:52:00 EDT, Weight Dosing methylPREDNISolone, = 1 packet(s), Oral, As Directed, as directed on package labeling, X 6 day(s), # 21 tab(s), Refills(s) 0, [id number], 147, cm, 05/20/24 10:52:00 EDT, Height/Length Dosing, 58.5, kg, 05/20/24 10:52:00 EDT, Weight Dosing Influenza Type A&B POC 71583 Rapid COVID POC 21284 3. BMI 27.0-27.9,adult (Z68.27: Body mass index [BMI] 27.0-27.9, adult) BMI education given Ordered: azithromycin, = 1 packet(s), Oral, As Directed, as directed on package labeling, X 5 day(s), # 6 tab(s), Refills(s) 0, [id number], 147, cm, 05/20/24 10:52:00 EDT, Height/Length Dosing, 58.5, kg, 05/20/24 10:52:00 EDT, Weight Dosing brompheniramine/dextromethorphan/PSE, 5 mL, Oral, QID for cough and congestion, 200 mL, Refill(s) 0, [id number], 147, cm, 05/20/24 10:52:00 EDT, Height/Length Dosing, 58.5, kg, 05/20/24 10:52:00 EDT, Weight Dosing methylPREDNISolone, = 1 packet(s), Oral, As Directed, as directed on package labeling, X 6 day(s), # 21 tab(s), Refills(s) 0, [id number], 147, cm, 05/20/24 10:52:00 EDT, Height/Length Dosing, 58.5, kg, 05/20/24 10:52:00 EDT, Weight Dosing 4. Non-smoker (Z78.9: Other specified health status) continue not smoking Ordered: azithromycin, = 1 packet(s), Oral, As Directed, as directed on package labeling, X 5 day(s), # 6 tab(s), Refills(s) 0, [id number], 147, cm, 05/20/24 10:52:00 EDT, Height/Length Dosing, 58.5, kg, 05/20/24 10:52:00 EDT, Weight Dosing brompheniramine/dextromethorphan/PSE, 5 mL, Oral, QID for cough and congestion, 200 mL, Refill(s) 0, [id number] 147, cm, 05/20/24 10:52:00 EDT, Height/Length Dosing, 58.5, kg, 05/20/24 10:52:00 EDT, Weight Dosing methylPREDNISolone, = 1 packet(s), Oral, As Directed, as directed on package labeling, X 6 day(s), # 21 tab(s), Refills(s) 0, Pharmacy: [facility] #[id number], 147, cm, 05/20/24 10:52:00 EDT, Height/Length Dosing, 58.5, kg, 05/20/24 10:52:00 EDT, Weight Dosing Orders: levothyroxine, See Instructions, TAKE 1 TABLET BY MOUTH EVERY DAY, # 90 tab(s), Refills(s) 1, [id number], 147, cm, 05/20/24 10:52:00 EDT, Height/Length Dosing, 58.5, kg, 05/20/24 10:52:00 EDT, Weight Dosing levothyroxine, See Instructions, TAKE 1 TABLET BY MOUTH EVERY DAY, # 90 tab(s), Refills(s) 1, Pharmacy: [id number], 147, cm, 04/08/24 10:58:00 EST, Height/Length Dosing, 59.7, kg, 04/08/24 10:58:00 EST, Weight Dosing Follow-up No qualifying data available Problem List/Past Medical History Ongoing Asthma Bereavement BMI 26.0-26.9,adult BMI 27.0-27.9,adult Cellulitis Cervical spondylosis Cough Diverticular disease Foot deformity Foot drop Hip pain Hypercholesterolemia Hypothyroidism Knee pain, left Left sciatic nerve pain Lumbar spondylosis Murmur Nasal congestion Non-seasonal allergic rhinitis due to pollen Nonsmoker Osteoarthritis of hip Osteopenia Overweight (BMI 25.0-29.9) Post-poliomyelitis muscular atrophy Primary hypertension Restless legs syndrome Right hip pain Right upper quadrant pain Shoulder pain, right Sinusitis Skin infection Squamous cell carcinoma in situ Steatosis of liver Thoracic spondylosis Historical No qualifying data Procedure/Surgical History Cataracts, Cholecystectomy, Shoulder replacement. Medications Albuterol (Eqv-ProAir HFA) 90 mcg/inh inhalation aerosol, See Instructions aspirin, 81 mg, Oral, Daily azithromycin 250 mg Tab, 1 packet(s), Oral, As Directed Bromfed DM oral syrup, 5 mL, Oral, QID, PRN candesartan 4 mg Tab, See Instructions, 1 refills celecoxib 200 mg Cap, See Instructions, 1 refills digoxin 125 mcg (0.125 mg) Tab, See Instructions ICaps AREDS 2, See Instructions levothyroxine 50 mcg (0.05 mg) Tab, See Instructions, 1 refills meclizine 25 mg Tab, 25 mg= 1 tab(s), Oral, q8hr Medrol 4 mg Tab, 1 packet(s), Oral, As Directed metoprolol succinate 25 mg ER Tab, 25 mg= 1 tab(s), Oral, Bedtime, 3 refills montelukast 10 mg Tab, See Instructions spironolactone 25 mg Tab, See Instructions Symbicort, [...] Tobacco Use:. Household tobacco concerns: No. Yes, 05/13/2024 Family History Acute myocardial infarction: Grandparent and Grandparent. Immunizations Vaccine Date Status Comments influenza virus vaccine, inactivated 01/23/2024 Recorded influenza virus vaccine, inactivated 12/14/2022 Recorded SARS-CoV-2 (COVID-19) [id number] 02/10/2022 Recorded influenza virus vaccine, inactivated 12/27/2021 [...] inactivated 03/18/2015 Recorded influenza, whole 01/17/2005 Recorded Lab Results Ambulatory Point of Care Results Influenza A POC: Negative (05/20/24 11:04:00) Influenza B POC: Negative (05/20/24 11:04:00) Rapid Covid POC: Negative (05/20/24 11:04:00) Result Comment: Electronical ly Signed By: Marlee Martinez\.br\Date and Time Signed: 05/20/24 11:06 EDT AMBULATORY VISIT SUMMARY Observed: 05/20 11:02 AM Status: F Source: [facility] Ambulatory Visit Summary UNA GOMEZ :1940 Visit Date:05/20/2024 Ambulatory Visit Instructions Your Diagnosis Sinusitis Cough, Cough BMI 27.0-27.9,adult Non-smoker Your Care Team Attending Physician - Marlee Martinez Primary Care Physician - Yaniv Signh MD This Is Your Medications List acetaminophen [...] Shoulder replacement. Discharge Vitals Heart Rate (Peripheral) 72 Respiratory Rate 18 Blood Pressure 122/64 Height 147.0 cm Height 58 in Weight 58.5 kg Weight 128.97 lb BMI 27.07 What to do next Scheduled Follow-Up Appointments Monday 1:00 PM EDT With: Francisco BELTRAN, Yaniv Pope Where: [address] [id number]- Monday 11:00 AM EDT With: Where: [address] [address]- Medications What How Much When Instructions Unchanged acetaminophen (Tylenol Extra Strength) 500 Milligram [...] digoxin (digoxin 125 mcg (0.125 mg) Tab) See instructions TAKE 1 TABLET BY MOUTH EVERY DAY Unchanged levothyroxine (levothyroxine 50 mcg (0.05 mg) Tab) See instructions TAKE 1 TABLET BY MOUTH EVERY DAY Unchanged meclizine (meclizine 25 mg Tab) 1 Tablets By Mouth Every 8 hours as needed for dizziness Unchanged metoprolol (metoprolol succinate 25 mg ER Tab) 1 Tablets By Mouth At bedtime Duration: 90 Days Unchanged montelukast (montelukast 10 mg Tab) See instructions TAKE 1 TABLET BY MOUTH EVERY DAY Unchanged multivitamin with minerals (ICaps AREDS 2) See instructions take 2 orally daily Unchanged spironolactone (spironolactone 25 mg Tab) See instructions TAKE 1 TABLET BY MOUTH EVERY DAY Allergies Augmentin (Unknown) Diflucan (Unknown) sulfa drugs (Unknown) traMADol (Unknown) Problems Ongoing - Any problem that you are currently receiving treatment for. Asthma Bereavement BMI 26.0-26.9,adult BMI 27.0-27.9,adult Cellulitis Cervical spondylosis Cough Diverticular disease Foot deformity Foot drop Hip pain Hypercholesterolemia Hypothyroidism Knee pain, left Left sciatic nerve pain Lumbar spondylosis Murmur Nasal congestion Non-seasonal allergic rhinitis due to pollen Nonsmoker Osteoarthritis of hip Osteopenia Overweight (BMI 25.0-29.9) Post-poliomyelitis muscular atrophy Primary hypertension Restless legs syndrome Right hip pain Right upper quadrant pain Shoulder pain, right Sinusitis Skin infection Squamous cell carcinoma in situ Steatosis of liver Thoracic spondylosis Patient Survey You may receive a survey via text or e-mail asking about your office visit. Please share your experience with us by completing your survey. We appreciate your feedback and thank you for choosing us for your care. FAMILY MEDICINE OFFICE/CLINI C NOTE Observed: 05/13/2024 1:47 PM Status: F Source: [facility] Family Medicine Office/Clini c Note Chief Complaint Foot pain The patient presents with pain in the right pinky toe, which is now growing underneath the adjacent toe. HPI Staff Una is a 84 year old female presenting with Pain characteristics: Pain location: right foot. Little toe. Intensity:12/13 Onset: Has been ongoing for yrs. This episode started last Monday. Medication used: None Unable to put shoe on. History of Present Illness The patient is an 84-year-old female presenting with pain in the right pinky toe. The deformity, where the toe grows underneath the adjacent toe, has been present since childhood, following surgery for polio. The patient experiences pain in that toe while walking in shoes, although no pain occurs while she is seated. This condition has become more problematic recently, potentially due to changes in fat distribution with age, leading to a loss of cushioning. The patient attempted to contact a specialist for potential footwear solutions but was unable to secure an appointment due to their temporary closure. There are no signs of infection currently, but callus formation could pose a risk. The patient has not yet used pharmacological interventions for this issue. Review of Systems PHQ Score Initial Depression Screen Score: 0 SCORE Physical Exam Vitals & Measurements HR: 64(Peripheral) RR: 18 BP: 136/84 SpO2: 99% HT: 58 in HT: 147 cm WT: 58.3 kg WT: 128.529 lb BMI: 26.98 General: alert, no acute distress ENMT: oral mucosa moist Cardiovascular: Regular rate and rhythm, normal peripheral perfusion Respiratory: Lungs clear to auscultation, respirations non labored Extremities: right pinky toe growing underneath the other, no trauma Neurological: oriented x 4, level of consciousness appropriate for age, CN II- XII intact, motor strength equal & normal bilaterally, speech normal Abdomen: Soft, Non-tender, Non-distended, + Bowel sounds Assessment/Plan 1. Foot deformity (M21.969: Unspecified acquired deformity of unspecified lower leg) Right Pinky Toe Deformity The patient is experiencing increased pain due to a deformity derived from polio in her right pinky toe. Motrin will be prescribed to help reduce pain and any associated swelling. It is important to manage potential callus formation, as this might lead to infection. Discussion also highlighted the need for consultation with a specialist regarding fitting for suitable footwear, though contact with [facility] could not currently be made due to their relocation. 2. BMI 26.0-26.9,adult (Z68.26: Body mass index [BMI] 26.0-26.9, adult) Bmi education added 3. Overweight (BMI 25.0-29.9) (E66.3: Overweight) Diet and exercise advised 4. Nonsmoker (Z78.9: Other specified health status) Please continue to not smoe. 84-year-old female with a history of polio presenting with pain in the right pinky toe due to long-term deformity. This condition has recently resulted in increased discomfort and callus formation due to changes in weight-bearing mechanics. Currently, there is no infection present, although specialized footwear is likely needed to prevent progression and alleviate symptoms. I discussed with the patient the management of the increasing pain in her right pinky toe. The likely etiology stems from long-term weight-bearing changes and deformity related to her polio history. We agreed on starting Motrin for pain relief and swelling reduction. With regard to her footwear needs, I advised contacting [facility] as soon as they resume operations, to arrange a fitting for specialized shoes. We noted the callus could potentially lead to infection if untreated, though there are currently no signs of infection. We will re-evaluate and consider further interventions if symptoms persist or worsen. There were no other specific risk estimates detailed in our discussions, and she agreed with the outlined plan. Follow-up No qualifying data available Patient Education BMI for Adults Problem List/Past Medical History Ongoing Asthma Bereavement BMI 26.0-26.9,adult BMI 27.0-27.9,adult Cellulitis Cervical spondylosis Diverticular disease Foot deformity Foot drop Hip pain Hypercholesterolemia Hypothyroidism Knee pain, left Left sciatic nerve pain Lumbar spondylosis Murmur Nasal congestion Non-seasonal allergic rhinitis due to pollen Nonsmoker Osteoarthritis of hip Osteopenia Overweight (BMI 25.0-29.9) Post-poliomyelitis muscular atrophy Primary hypertension Restless legs syndrome Right hip pain Right upper quadrant pain Shoulder pain, right Skin infection Squamous cell carcinoma in situ Steatosis of liver Thoracic spondylosis Historical No qualifying data Procedure/Surgical History Cataracts, Cholecystectomy, Shoulder replacement. Medications Albuterol (Eqv-ProAir HFA) 90 mcg/inh inhalation aerosol, See Instructions aspirin, 81 mg, Oral, Daily candesartan 4 mg Tab, See Instructions, 1 refills celecoxib 200 mg Cap, See Instructions, 1 refills digoxin 125 mcg (0.125 mg) Tab, See Instructions ICaps AREDS 2, See Instructions levothyroxine 50 mcg (0.05 mg) Tab, See Instructions meclizine 25 mg Tab, 25 mg= 1 tab(s), Oral, q8hr metoprolol succinate 25 mg ER Tab, 25 mg= 1 tab(s), Oral, Bedtime, 3 refills montelukast 10 mg Tab, See Instructions spironolactone 25 mg Tab, See Instructions Symbicort, [...] Tobacco Use:. Household tobacco concerns: No. Yes, 05/13/2024 Family History Acute myocardial infarction: Grandparent and Grandparent. Immunizations Vaccine Date Status Comments influenza virus vaccine, inactivated 01/23/2024 Recorded influenza virus vaccine, inactivated 12/14/2022 Recorded SARS-CoV-2 (COVID-19) [id number] 02/10/2022 Recorded influenza virus vaccine, inactivated 12/27/2021 [...] inactivated 03/18/2015 Recorded influenza, whole 01/17/2005 Recorded Result Comment: Electronical ly Signed By: Francisco BELTRAN, Yaniv Sanabria.br\Date and Time Signed: 05/13/24 13:49 EDT PATIENT EDUCATION Observed: 05/13/2024 1:46 PM Status: F Source: [facility] Patient Education Nutrition BMI for Adults Body [...] for Disease Control and Prevention: cdc.gov ??? [place] Heart Association: heart.org ??? National Heart, Lung, and Blood [place]: nhlbi.nih.gov This information is not intended to replace advice given to you by your health care provider. Make sure you discuss any questions you have with your health care provider. Document Revised: 11/10/2022 Document Reviewed: 11/03/2022 [employer] Patient Education ? 2023 [email or web address]. AMBULATORY VISIT SUMMARY Observed: 05/13 1:45 PM Status: F Source: [facility] Ambulatory Visit Summary UNA GOMEZ :1940 Visit Date:05/13/2024 Ambulatory Visit Instructions Your Diagnosis Foot deformity BMI 26.0-26.9,adult Overweight (BMI 25.0-29.9) Nonsmoker Your Care Team Attending Physician - Yaniv Singh MD Primary Care Physician - Yaniv Singh MD. This Is Your Medications List acetaminophen (Tylenol [...] Shoulder replacement. Discharge Vitals Heart Rate (Peripheral) 64 Respiratory Rate 18 Blood Pressure 136/84 Height 147 cm Height 58 in Weight 58.3 kg Weight 128.529 lb BMI 26.98 What to do next Scheduled Follow-Up Appointments Monday 1:00 PM EDT With: Francisco BELTRAN, Yaniv Pope Where: [address] [address]- Monday 11:00 AM EDT With: Where: [address] [id number]- Medications What How Much When Instructions Unchanged acetaminophen (Tylenol Extra Strength) 500 Milligram [...] digoxin (digoxin 125 mcg (0.125 mg) Tab) See instructions TAKE 1 TABLET BY MOUTH EVERY DAY Unchanged levothyroxine (levothyroxine 50 mcg (0.05 mg) Tab) See instructions TAKE 1 TABLET BY MOUTH EVERY DAY Unchanged meclizine (meclizine 25 mg Tab) 1 Tablets By Mouth Every 8 hours as needed for dizziness Unchanged metoprolol (metoprolol succinate 25 mg ER Tab) 1 Tablets By Mouth At bedtime Duration: 90 Days Unchanged montelukast (montelukast 10 mg Tab) See instructions TAKE 1 TABLET BY MOUTH EVERY DAY Unchanged multivitamin with minerals (ICaps AREDS 2) See instructions take 2 orally daily Unchanged spironolactone (spironolactone 25 mg Tab) See instructions TAKE 1 TABLET BY MOUTH EVERY DAY Allergies Augmentin (Unknown) Diflucan (Unknown) sulfa drugs (Unknown) traMADol (Unknown) Problems Ongoing - Any problem that you are currently receiving treatment for. Asthma Bereavement BMI 26.0-26.9,adult BMI 27.0-27.9,adult Cellulitis Cervical spondylosis Diverticular disease Foot deformity Foot drop Hip pain Hypercholesterolemia Hypothyroidism Knee pain, left Left sciatic nerve pain Lumbar spondylosis Murmur Nasal congestion Non-seasonal allergic rhinitis due to pollen Nonsmoker Osteoarthritis of hip Osteopenia Overweight (BMI 25.0-29.9) Post-poliomyelitis muscular atrophy Primary hypertension Restless legs [...] you for choosing us for your care. XR HIP RT MIN 2V(W/WO PELVIS)* Observed: 05/08/2024 4:02 PM Status: COMPLETED Source: [facility] [address] [place] [address] XRay Report Signed Patient: Una Gomez MR#: [id number] : 1940 Acct:[id number] Age/Sex: 84 / F ADM Date: 05/08/24 Loc: [facility] [place] Room: Type: [facility] Attending Dr: Fred Hernandez II, MD Copies [...] Nory Jarrett M.D.05/08/2024 4:04 PM Dictation Location: [facility]--02 Transcribed By: NURYS 05/08/24 1604 Dictated By: Nory Jarrett MD 05/08/24 1602 Signed By: <Electronically signed by MD Nory Jarrett in OV> 05/08/24 1604 FAMILY MEDICINE OFFICE/CLINI C NOTE Observed: 04/08/2024 11:12 AM Status: F Source: [facility] Family Medicine Office/Clini c Note Chief Complaint Rt Leg Pain The [...] level of consciousness appropriate for age, CN II- XII intact, motor strength equal & normal bilaterally, [...] home and fear of being dizzy. Ordered: [facility] External Ambulatory Referral 2. BMI 27.0-27.9,adult (Z68.27: Body mass index [BMI] 27.0-27.9, adult) Monitor weight and provide guidance on maintaining a healthy BMI through balanced diet and exercise, as discussed with the patient. Ordered: [facility] External Ambulatory Referral 3. Overweight (BMI 25.0-29.9) (E66.3: Overweight) Reinforce healthy lifestyle modifications, including diet and physical activity, to maintain or reduce weight and improve overall health, considering the patient's age and mobility status. Ordered: [facility] External Ambulatory Referral 4. 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 Ordered: [facility] External Ambulatory Referral 5. 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 Continuation of current routine, with consideration for orthopedic assessment if functional concerns arise. Ordered: [facility] External Ambulatory Referral 6. Nonsmoker (Z78.9: Other [...] We also discussed pain management options including Tylenol and possibly escalating to other medications if needed, following orthopedic evaluation results. 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 Follow-up No qualifying data available Patient Education BMI for Adults Problem List/Past Medical History Ongoing Asthma Bereavement BMI 27.0-27.9,adult Cellulitis Cervical spondylosis Diverticular disease Foot drop Hip pain Hypercholesterolemia Hypothyroidism Knee pain, left Left sciatic nerve pain Lumbar spondylosis Murmur Nasal congestion Non-seasonal allergic rhinitis due to pollen Nonsmoker Osteoarthritis of hip Osteopenia Overweight (BMI 25.0-29.9) Post-poliomyelitis muscular atrophy Primary hypertension Restless legs syndrome Right hip pain Right upper quadrant pain Shoulder pain, right Skin infection Squamous cell carcinoma in situ Steatosis of liver Thoracic spondylosis Historical No qualifying data Procedure/Surgical History Cataracts, Cholecystectomy, Shoulder replacement. Medications Albuterol (Eqv-ProAir HFA) 90 mcg/inh inhalation aerosol, See Instructions aspirin, 81 mg, Oral, Daily candesartan 4 mg Tab, See Instructions, 1 refills celecoxib 200 mg Cap, See Instructions, 1 refills digoxin 125 mcg (0.125 mg) Tab, See Instructions ICaps AREDS 2, See Instructions levothyroxine 50 mcg (0.05 mg) Tab, See Instructions meclizine 25 mg Tab, 25 mg= 1 tab(s), Oral, q8hr metoprolol succinate 25 mg ER Tab, 25 mg= 1 tab(s), Oral, Bedtime, 3 refills montelukast 10 mg Tab, 10 mg= [...] Tobacco Use:. Household tobacco concerns: No. Yes, 04/08/2024 Family History Acute myocardial infarction: Grandparent and Grandparent. Immunizations Vaccine Date Status Comments influenza virus vaccine, inactivated 01/23/2024 Recorded influenza virus vaccine, inactivated 12/14/2022 Recorded SARS-CoV-2 (COVID-19) [id number] 02/10/2022 Recorded influenza virus vaccine, inactivated 12/27/2021 [...] inactivated 03/18/2015 Recorded influenza, whole 01/17/2005 Recorded Result Comment: Electronical ly Signed By: Francisco BELTRAN, Yaniv Sanabria.deshawn\Date and Time Signed: 04/08/24 11:14 EST PATIENT EDUCATION Observed: 04/08/2024 11:12 AM Status: F Source: [facility] Patient Education Nutrition BMI for Adults Body [...] for Disease Control and Prevention: cdc.gov ??? [place] Heart Association: heart.org ??? National Heart, Lung, and Blood [place]: nhlbi.nih.gov This information is not intended to replace advice given to you by your health care provider. Make sure you discuss any questions you have with your health care provider. Document Revised: 11/10/2022 Document Reviewed: 11/03/2022 [employer] Patient Education ? 2023 [email or web address]. FAMILY MEDICINE OFFICE/CLINI C NOTE Observed: 02/13/2024 11:19 AM Status: F Source: [facility] Family Medicine Office/Clini c Note HPI Staff Una is an 83 [...] day(s), # 21 tab(s), Refills(s) 0, Pharmacy: [facility]/pharmacy #[id number], 147, cm, 02/13/24 10:53:00 EST, Height/Length [...] day(s), # 21 tab(s), Refills(s) 0, Pharmacy: [facility]/pharmacy #[id number], 147, cm, 02/13/24 10:53:00 EST, Height/Length [...] day(s), # 21 tab(s), Refills(s) 0, [id number] 147, cm, 02/13/24 10:53:00 EST, Height/Length [...] day(s), # 21 tab(s), Refills(s) 0, Pharmacy: [facility]/pharmacy #[id number], 147, cm, 02/13/24 10:53:00 EST, Height/Length [...] 5. Nonsmoker (Z78.9: Other specified health status) Please continue to not smoke Ordered: methylPREDNISolone, = 1 packet(s), Oral, As Directed, as directed on package labeling, X 6 day(s), # 21 tab(s), Refills(s) 0, Pharmacy: [facility]/pharmacy #[id number], 147, cm, 02/13/24 10:53:00 EST, Height/Length [...] <130 mm Hg (Most Recent) 3074F 6. Osteoarthritis of hip (M16.9: Osteoarthritis of hip, unspecified) Will order an xray Ordered: methylPREDNISolone, = 1 packet(s), Oral, As Directed, as directed on package labeling, X 6 day(s), # 21 tab(s), Refills(s) 0, [id number], 147, cm, 02/13/24 10:53:00 EST, Height/Length Dosing, 59.9, kg, 02/13/24 10:53:00 EST, Weight Dosing 7. Left sciatic nerve pain (M54.32: Sciatica, left side) - Will do a medrol dose pack to help with the pain when it gets bad. Pt has a [employer] service she has to play at. Ordered: methylPREDNISolone, = 1 packet(s), Oral, As Directed, as directed on package labeling, X 6 day(s), # 21 tab(s), Refills(s) 0, Pharmacy: [facility]/pharmacy #[id number], 147, cm, 02/13/24 10:53:00 EST, Height/Length Dosing, 59.9, kg, 02/13/24 10:53:00 EST, Weight Dosing 8. Post-poliomyelitis muscular atrophy (G14: Postpolio syndrome) Stable. Continue to use cream to help with the itching Ordered: methylPREDNISolone, = 1 packet(s), Oral, As Directed, as directed on package labeling, X 6 day(s), # 21 tab(s), Refills(s) 0, Pharmacy: [facility]/pharmacy #[id number], 147, cm, 02/13/24 10:53:00 EST, Height/Length Dosing, 59.9, kg, 02/13/24 10:53:00 EST, Weight Dosing 9. Nasal congestion (R09.81: Nasal congestion) Pt is wanting something not so sedating. Will do Zyrtec. Pt will get OTC. Ordered: methylPREDNISolone, = 1 packet(s), Oral, As Directed, as directed on package labeling, X 6 day(s), # 21 tab(s), Refills(s) 0, [id number], 147, cm, 02/13/24 10:53:00 EST, Height/Length Dosing, 59.9, kg, 02/13/24 10:53:00 EST, Weight Dosing Follow-up No qualifying data [...] Tobacco Use:. Household tobacco concerns: No. Yes, 02/13/2024 Family History Acute myocardial infarction: Grandparent and Grandparent. Immunizations Vaccine Date Status Comments influenza virus vaccine, inactivated 01/23/2024 Recorded influenza virus vaccine, inactivated 12/14/2022 Recorded SARS-CoV-2 (COVID-19) [id number].[id number] 02/10/2022 Recorded influenza virus vaccine, inactivated 12/27/2021 [...] inactivated 03/18/2015 Recorded influenza, whole 01/17/2005 Recorded Result Comment: Electronical ly Signed By: Yaniv Singh MD\.br\Date and Time Signed: 02/13/24 11:19 EST AMBULATORY VISIT SUMMARY Observed: 02/12 11:17 AM Status: F Source: [facility] Ambulatory Visit Summary UNA GOMEZ :1940 Visit [...] Follow-Up Appointments Monday 1:00 PM EDT With: Yaniv Singh MD Where: [address] [address]- Monday 11:00 AM EDT With: Where: [address] [address]- Medications What How Much When Why Instructions New methylPREDNISolone (Medrol Dosepack 4 mg Tab) 1 Packets By Mouth As Directed Primary hypertension Hypothyroidism BMI 27.0-27.9,adult Overweight Nonsmoker Osteoarthritis of hip Left sciatic nerve pain Post-poliomyelitis muscular atrophy Nasal congestion Duration: 6 Days as directed on package labeling Pickup at [facility]/pharmacy #[id number] Unchanged acetaminophen (Tylenol Extra Strength) 500 Milligram [...] TABLET BY MOUTH EVERY DAY Pharmacy Information [facility]/pharmacy #[id number]: [address], [place] [phone] Allergies Augmentin (Unknown) Diflucan (Unknown) sulfa drugs [...] you for choosing us for your care. AMBULATORY VISIT SUMMARY Observed: 01/15 11:30 AM Status: F Source: [facility] Ambulatory Visit Summary UNA GOMEZ :1940 Visit Date:01/16/2024 Ambulatory Visit Instructions Your Diagnosis Cellulitis Left sciatic nerve pain Post-poliomyelitis muscular atrophy Overweight (BMI 25.0-29.9) Nonsmoker Body mass index [BMI] 28.0-28.9, adult Your Care Team Attending Physician - Yaniv Singh MD. Primary Care Physician - Yanvi Singh MD. This Is Your Medications List acetaminophen (Tylenol [...] EST With: Francisco BELTRAN, Yaniv Pope Where: [address] [address]- Monday 11:00 AM EDT With: Where: [address] [address]- Medications What How Much When Why Instructions New methylPREDNISolone (Medrol Dosepack 4 mg Tab) 1 Packets By Mouth As Directed Cellulitis Left sciatic nerve pain Duration: 6 Days as directed on package labeling Pickup at [facility]/pharmacy #[id number] Unchanged acetaminophen (Tylenol Extra Strength) 500 Milligram [...] to 27.9 in adult Nonsmoker Pharmacy Information [facility]/pharmacy #[id number]: [address], [place] [phone] Allergies Augmentin (Unknown) Diflucan (Unknown) sulfa drugs [...] total from step 3 (inches squared): 105,450 ??? 4,900 = 21.5. This is your BMI. [...] meters squared number. In this example: 70 ??? 3.1 = 22.6. This is your BMI. [...] for Disease Control and Prevention: cdc.gov ??? [place] Heart Association: heart.org ??? National Heart, Lung, and Blood [place]: nhlbi.nih.gov This information is not intended to replace advice given to you by your health care provider. Make sure you discuss any questions you have with your health care provider. Document Revised: 11/10/2022 Document Reviewed: 11/03/2022 [employer] Patient Education ??? 2023 [email or web address]. FAMILY MEDICINE OFFICE/CLINI C NOTE Observed: 01/16/2024 11:26 AM Status: F Source: [facility] Family Medicine Office/Clini c Note Chief Complaint 1wk follow up to [...] day(s), # 21 tab(s), Refills(s) 0, Pharmacy: [facility]/pharmacy #[id number], 147, cm, 01/16/24 11:11:00 EST, Height/Length [...] day(s), # 21 tab(s), Refills(s) 0, [id number], 147, cm, 01/16/24 11:11:00 EST, Height/Length Dosing, 60.6, kg, 01/16/24 11:11:00 EST, Weight Dosing 3. Post-poliomyelitis muscular atrophy (G14: Postpolio syndrome) Wondering if the cause of the patient's feeling different in that leg is because of the post polymyositis atrophy. 4. Overweight (BMI 25.0-29.9) (E66.3: Overweight) 5. Body mass index [BMI] 28.0-28.9, adult (Z68.28: Body mass index [BMI] 28.0- 28.9, adult) Follow-up No qualifying data available Patient [...] virus vaccine, inactivated 12/14/2022 Recorded SARS-CoV-2 (COVID-19) [id number].[id number] 02/10/2022 Recorded influenza virus vaccine, inactivated 12/27/2021 [...] inactivated 03/18/2015 Recorded influenza, whole 01/17/2005 Recorded Result Comment: Electronical ly Signed By: Francisco BELTRAN, Yaniv Pope\.br\Date and Time Signed: 01/16/24 11:28 EST PATIENT EDUCATION Observed: 01/16/2024 11:26 AM Status: F Source: [facility] Patient Education Nutrition BMI for Adults Body [...] for Disease Control and Prevention: cdc.gov ??? [place] Heart Association: heart.org ??? National Heart, Lung, and Blood [place]: nhlbi.nih.gov This information is not intended to replace advice given to you by your health care provider. Make sure you discuss any questions you have with your health care provider. Document Revised: 11/10/2022 Document Reviewed: 11/03/2022 [employer] Patient Education ? 2023 [email or web address]. FAMILY MEDICINE OFFICE/CLINI C NOTE Observed: 01/08/2024 2:52 PM Status: F Source: [facility] Office/Clini c Note HPI Staff Una is an 83 [...] Tobacco Use:. Household tobacco concerns: No. Yes, 01/08/2024 Family History Acute myocardial infarction: Grandparent and Grandparent. Immunizations Vaccine Date Status Comments influenza virus vaccine, inactivated 12/14/2022 Recorded SARS-CoV-2 (COVID-19) [id number].[id number] 02/10/2022 Recorded influenza virus vaccine, inactivated 12/27/2021 [...] inactivated 03/18/2015 Recorded influenza, whole 01/17/2005 Recorded Result Comment: Electronical ly Signed By: Francisco BELTRAN, Yaniv Kochbr\Date and Time Signed: 01/08/24 14:52 EST AMBULATORY VISIT SUMMARY Observed: 01/02 1:25 PM Status: F Source: [facility] Ambulatory Visit Summary UNA GOMEZ :1940 Visit [...] AM EST With: Yaniv Singh MD Where: [address] [address]- Monday 11:00 AM EDT With: Where: [address] [address]- Medications What How Much When Why Instructions New triamcinolone topical (triamcinolone Top 0.1% Crm 15 gram) 1 Application Topical 3 times a day BMI 27.0-27.9,adult Overweight with body mass index (BMI) of 27 to 27.9 in adult Nonsmoker Pickup at [facility]/pharmacy #[id number] Unchanged acetaminophen (Tylenol Extra Strength) 500 Milligram [...] By Mouth Every 12 hours Pickup at [facility]/pharmacy #[id number] Unchanged digoxin (digoxin 125 mcg (0.125 [...] TABLET BY MOUTH EVERY DAY Pharmacy Information [facility]/pharmacy #[id number]: [address], [place] [phone] Allergies Augmentin (Unknown) Diflucan (Unknown) sulfa drugs [...] you for choosing us for your care. FAMILY MEDICINE OFFICE/CLINI C NOTE Observed: 01/03/2024 12:21 PM Status: F Source: [facility] Family Medicine Office/Clini c Note Chief Complaint Possible Infection HPI Staff [...] q12hr, # 20 cap(s), Refills(s) 0, Pharmacy: [facility]/pharmacy #[id number], 147, cm, 01/03/24 11:43:00 EDT, Height/Length [...] virus vaccine, inactivated 12/14/2022 Recorded SARS-CoV-2 (COVID-19) [id number].[id number] 02/10/2022 Recorded influenza virus vaccine, inactivated 12/27/2021 [...] inactivated 03/18/2015 Recorded influenza, whole 01/17/2005 Recorded Result Comment: Electronical ly Signed By: Marlee Martinez\.br\Date and Time Signed: 01/03/24 12:21 EDT 36 Observed: 12/12/2023 1:55 PM Status: COMPLETED Source: [facility] Regarding dig level from 12/11/2023: Melissa Rodrigez, FRANSISCO Clarke MA Please let her know her digoxin level looks good. Thanks Patient informed. NURSE CONSULTATION NOTE Observed: 2023 2:30 PM Status: F Source: [facility] Nurse Consultation Note Reason for Visit Here for lab draw for Melissa Rodrigez NP Assessment/Plan Anticoagulation management encounter (Z51.81: Encounter for therapeutic drug level monitoring) Current use of beta samm (Z79.899: Other admissions clinician (current) drug therapy) folder hand (current) use of anticoagulants (Z79.01: penitentiary (current) use of anticoagulants) Medications Albuterol (Eqv-ProAir [...] virus vaccine, inactivated 12/14/2022 Recorded SARS-CoV-2 (COVID-19) [id number].[id number] 02/10/2022 Recorded influenza virus vaccine, inactivated 12/27/2021 [...] inactivated 03/18/2015 Recorded influenza, whole 01/17/2005 Recorded DIGOXIN Collected: 2:29 PM Status: F Source: [facility] TYPE CODE TESTS RESULT OUT OF RANGE REFERENCE UNITS LAB [id number](LOINC) Digoxin Lvl 0.6 Normal 0.5-1.9 ng/m L Performed By: #### [id number] # ### [facility] [address] [place] [address] PROGRESS Observed: 11/30/2023 2:40 PM Status: COMPLETED Source: [facility] Patient here for 1 year foll ow up aortic valve stenosis, LBBB, and hypertension. Had routine labs w/ lipid panel in September 2023. She denies chest pain, SOB, palpitations, and LE edema. Doing very well. Review of Systems All other systems reviewed and are negative. OFFICE VISIT Observed: 11/30/2023 2:40 PM Status: COMPLETED Source: [facility] [id number] Una Gomez 1940 F Date Provider Department Center 11/30/2023 Puma-MELISSA RODRIGEZ CARD [facility] No family history on file Level of Service:77794 [place] OFFICE/OUTPATIENT ESTABLISHED LOW MDM 20 MIN PROGRESS Observed: 11/30/2023 2:40 PM Status: COMPLETED Source: [facility] Cardiovascular Medicine [facility] SUBJECTIVE No chief complaint on file. [...] branch block. Testing/Procedures: Echocardiogram: 10/05/2022 Mild left ventricular hypertrophy with [...] cm???, DVI 0.59. Mild aortic valve regurgitation. Prior testing: TSH 08/2016 within normal. Renal function and electrolytes in 06/2016 were normal. Blood testing 07/14/2015 showed normal renal function and electrolytes, CBC. She had the lexiscan stress test on 02/02/2015. This showed no evidence of ischemia. She had abnormal wall motion likely due to LBBB. Digoxin level on 02/10/2015 was 0.5. 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 ASSESSMENT/PLAN: 1. Nonrheumatic aortic valve stenosis -Mild aortic valve stenosis per 10/2022 - stable. She is doing well clinically without dyspneic symptoms or signs of fluid volume overload on exam. Given stability, will plan for follow-up echocardiogram in 1 year prior to her next office visit. Will schedule soon if sx's arise. 2. Hypertension -Well-controlled on candesartan 4mg daily, Toprol 25mg daily, spirionolactone 25mg daily. -continue current medication regimen. 3. Digoxin use -Unclear indication, reports for an irregular heart rhythm in the past and has been on digoxin ever since. -Will check a digoxin level. 4. LBBB -Asymptomatic -Prior stress test negative for ischemia Follow up in about 1 year (around 11/29/2024). Melissa Rodrigez NP [facility] [[email or web address]] Cardiovascular Medicine FAMILY MEDICINE OFFICE/CLINI C NOTE Observed: 09/19/2023 10:29 AM Status: F Source: [facility] Family Medicine Office/Clini c Note HPI Staff Una is an 83 [...] to not smoke. Orders: Lab Specimen Collect [id number] Lipid Panel Follow-up No qualifying data available [...] virus vaccine, inactivated 12/14/2022 Recorded SARS-CoV-2 (COVID-19) mRNAMUL.ORD![id number] 02/10/2022 Recorded influenza virus vaccine, inactivated 12/27/2021 [...] inactivated 03/18/2015 Recorded influenza, whole 01/17/2005 Recorded Result Comment: Electronical ly Signed By: Francisco BELTRAN, Yaniv Sanabria.br\Date and Time Signed: 09/19/23 10:30 EDT PATIENT EDUCATION Observed: 09/19/2023 10:29 AM Status: F Source: [facility] Patient Education Nutrition BMI for Adults What [...] numbers. This can be done either in [place]ijian ([place] or metric measurements. Note that charts and online BMI calculators are available to help you find your BMI quickly and easily without having to do these calculations yourself. To calculate your BMI in [place] ([place] measurements: 1. Measure your weight in [...] for Disease Control and Prevention: www.cdc.gov ? [place] Heart Association: www.heart.org ? National Heart, Lung, and Blood [place]: www.nhlbi.nih.gov Summary ? Body mass index (BMI) is a number that is calculated from a person's weight and height. ? BMI may help estimate how much of a person's weight is composed of fat. BMI can help identify those who may be at higher risk for certain medical problems. ? BMI can be measured using Fijian measurements or metric measurements. ? BMI charts are used to identify whether you are underweight, normal weight, overweight, or obese. This information is not intended to replace advice given to you by your health care provider. Make sure you discuss any questions you have with your health care provider. Document Revised: 11/13/2019 Document Reviewed: 09/20/2019 Elsevier Patient Education ? 2022 [email or web address]. AMBULATORY VISIT SUMMARY Observed: 09/18 10:27 AM Status: F Source: [facility] Ambulatory Visit Summary UNA GOMEZ :1940 Visit [...] AM EST With: Yaniv Singh MD Where: [facility] Family Medicine [place] [facility] Collected: 12:10 PM Status: F Source: [facility] Order Comment: Order added b y Discern Expert. TYPE CODE TESTS RESULT OUT OF RANGE REFERENCE UNITS LAB 81670850(LOINC) eGFR 84 Normal >=59 mL/min/1 .7 3 m2 Performed By: #### [id number] #### [facility] [address] [place] [address] CMP Collected: 4 12:10 PM Status: F Source: [facility] TYPE CODE TESTS RESULT OUT OF RANGE REFERENCE UNITS LAB 2345-7([facility]) GLUCOSE:MCNC:P T:SER/PLAS:QN: 96 Normal 55-199 mg/dL LAB 3094-0([facility]) UREA NITROGEN:MCNC: PT:SER/PLAS:QN : 19 Normal 5-21 mg/dL LAB 2160-0([facility]) CREATININE:MCN C:PT:SER/PLAS: QN: 0.7 Normal 0.5-1.3 mg/dL LAB 94798-2([facility]) CALCIUM:MCNC:P T:SER/PLAS:QN: 9.4 Normal 8.9-11.1 mg/dL LAB 2951-2([facility]) SODIUM:SCNC:PT :SER/PLAS:QN: 137 Normal 135-145 mmol/L LAB 2823-3([facility]) POTASSIUM:SCNC :PT:SER/PLAS:Q N: 4.1 Normal 3.5-5.3 mmol/L LAB 2075-0([facility]) CHLORIDE:SCNC: PT:SER/PLAS:QN : 105 Normal 101-111 mmol/L LAB 2027-9([facility]) CARBON DIOXIDE:SCNC:P T:SER/PLAS:QN: 25 Normal 21-31 mmol/L LAB 6768-6([facility]) ALKALINE PHOSPHATASE:CC NC:PT:SER/PLAS :QN: 81 Normal 21-98 Int._Unit /L LAB 1975-2([facility]) BILIRUBIN:MCNC :PT:SER/PLAS:Q N: 1.4 High 0.0-1.1 mg/dL LAB 1751-7([facility]) ALBUMIN:MCNC:P T:SER/PLAS:QN: 4.5 Normal 3.3-5.0 gm/dL LAB 2885-2([facility]) PROTEIN:MCNC:P T:SER/PLAS:QN: 7.3 Normal 6.0-7.8 gm/dL LAB 1744-2([facility]) ALANINE AMINOTRANSFERA SE:CCNC:PT:SER /PLAS:QN:NO ADDITION OF P-5'-P 23 Normal 6-46 Int._Unit /L LAB 1920-8([facility]) ASPARTATE AMINOTRANSFERA SE:CCNC:PT:SER /PLAS:QN: 25 Normal 5-43 Int._Unit /L LAB 3097-3([facility]) UREA NITROGEN/CREAT ININE:MRTO:PT: SER/PLAS:QN: 27 High 10-20 No Units LAB 29123-2([facility]) ANION GAP:SCNC:PT:SE R/PLAS:QN: 11 Normal 6-16 mEq/L LAB 30456-5([facility]) GLOBULIN:MCNC: PT:SER:QN:CALC ULATED 2.8 Normal 1.4-4.0 gm/dL LAB 24725-8([facility]) ALBUMIN/GLOBUL IN:MCRTO:PT:SE R:QN: 1.6 Normal 1.1-2.2 Performed By: #### [id number] # ### [facility] [address] [place] [address] LIPID PANEL Collected: 4 12:10 PM Status: F Source: [facility] TYPE CODE TESTS RESULT OUT OF RANGE REFERENCE UNITS LAB 2092-05([facility]) CHOLESTEROL:M CNC:PT:SER/PL :QN: 105 Low 120-200 mg/dL LAB 2084-11([facility]) CHOLESTEROL.I N HDL:MCNC:PT:S ER/PLAS:QN: 32 Unknown mg/dL Result Comment: '>= 60 LOW R ISK' '<= 40 HIGH RISK' LAB 2088-03([facility]) CHOLESTEROL.I N LDL:MCNC:PT:S ER/PLAS:QN: 60 Normal <=129 mg/dL LAB 2571-8([facility]) TRIGLYCERIDE: MCNC:PT:SER/P LAS:QN: 142 Normal <=149 mg/dL LAB 59416-6([facility]) CHOLESTEROL.I N VLDL:MCNC:PT: SER/PLAS:QN:C ALCULATED 28 Normal 7-40 mg/dL Performed By: #### [id number] # ### [facility] [address] [place] [address] TSH WITH T4FR REFLEX Collected: 12:10 PM Status: F Source: [facility] TYPE CODE TESTS RESULT OUT OF RANGE REFERENCE UNITS LAB 3016-3(LOINC) THYROTROPIN: ACNC:PT:SER/ PLAS:QN: 1.34 Normal 0.34-5.60 mcIU/mL Performed By: #### [id number] #### [facility] [address] [place] [address] AMBULATORY VISIT SUMMARY Observed: 09/13 2:38 PM Status: F Source: [facility] Ambulatory Visit Summary UNA GOMEZ :1940 Visit [...] Appointments Monday 9:20 AM EDT With: Where: [facility] [place] PATIENT EDUCATION Observed: 09/14/2023 2:38 PM Status: C Source: [facility] Patient Education Mental and Behavioral Health Managing [...] pray, or go to a place of lutheran. ? Do some deep breathing. To do [...] or salt (sodium). General instructions ? Take mvna-myr-kcvmeog and prescription medicines only as told by [...] [place] (ADAA): www.adaa.org ? Mental Health [place]: www.mentalhealthamerica.net ? National [place] on Mental Illness: www.catherine.org Contact a health care provider if: ? You stop taking your antidepressant medicines, and you have any of these symptoms: ? Nausea. ? Headache. ? Light-headedness. ? Chills and body aches. ? Not being able to sleep (insomnia). ? You or your friends and family think your depression is getting worse. Get help right away if: ? You have thoughts of hurting yourself or others. If you ever feel like you may hurt yourself or others, or have thoughts about taking your own life, get help right away. Go to your nearest emergency department or: ? Call your local emergency services (761 in the [place] ? Call a suicide crisis helpline, such as the National Suicide Prevention Lifeline at or 894 in the [place] This is open 24 hours a day in the [place] ? Text the Crisis Text Line at 751199 (in the [place].). Summary ? If you are diagnosed with depression, preparing yourself to manage your symptoms is a good way to feel positive about your future. ? Work with your health care provider on a management plan that includes stress reduction techniques, medicines (if applicable), therapy, and healthy lifestyle habits. ? Keep talking with your health care provider about how your treatment is working. ? If you have thoughts about taking your own life, call a suicide crisis helpline or text a crisis text line. This information is not intended to replace advice given to you by your health care provider. Make sure you discuss any questions you have with your health care provider. Document Revised: 09/15/2021 Document Reviewed: 01/01/2020 [employer] Patient Education ? 2022 [email or web address].Nutrition DASH Eating Plan DASH stands for Dietary Approaches to Stop Hypertension. The DASH eating plan is a healthy eating plan that has been shown to: ? Reduce high blood pressure (hypertension). ? Reduce your risk for type 2 diabetes, heart disease, and stroke. ? Help with weight loss. What are tips for following this plan? Reading food labels ? Check food labels for the amount of salt (sodium) per serving. Choose foods with less than 5 percent of the Daily Value of sodium. Generally, foods with less than 300 milligrams (mg) of sodium per serving fit into this eating plan. ? To find whole grains, look for the word whole as the first word in the ingredient list. Shopping ? Buy products labeled as low-sodium or no salt added. ? Buy fresh foods. Avoid canned foods and pre-made or frozen meals. Cooking ? Avoid adding salt when cooking. Use salt-free seasonings or herbs instead of table salt or sea salt. Check with your health care provider or pharmacist before using salt substitutes. ? Do not [place] foods. Cook foods using healthy methods such as baking, boiling, grilling, roasting, and broiling instead. ? Cook with heart-healthy oils, such as olive, canola, avocado, soybean, or sunflower oil. Meal planning ? Eat a balanced diet that includes: ? 4 or more servings of fruits and 4 or more servings of vegetables each day. Try to fill one-half of your plate with fruits and vegetables. ? 6?8 servings of whole grains each day. ? Less than 6 oz (170 g) of lean meat, poultry, or fish each day. A 3-oz (85-g) serving of meat is about the same size as a deck of cards. One egg equals 1 oz (28 g). ? 2?3 servings of low-fat dairy each day. One serving is 1 cup (237 mL). ? 1 serving of nuts, seeds, or beans 5 times each week. ? 2?3 servings of heart-healthy fats. Healthy fats called omega-3 fatty acids are found in foods such as walnuts, flaxseeds, fortified milks, and eggs. These fats are also found in cold-water fish, such as sardines, salmon, and mackerel. ? Limit how much you eat of: ? Canned or prepackaged foods. ? Food that is high in trans fat, such as some fried foods. ? Food that is high in saturated fat, such as fatty meat. ? Desserts and other sweets, sugary drinks, and other foods with added sugar. ? Full-fat dairy products. ? Do not salt foods before eating. ? Do not eat more than 4 egg yolks a week. ? Try to eat at least 2 vegetarian meals a week. ? Eat more home-cooked food and less restaurant, buffet, and fast food. Lifestyle ? When eating at a restaurant, ask that your food be prepared with less salt or no salt, if possible. ? If you drink alcohol: ? Limit how much you use to: ? 0?1 drink a day for women who are not . ? 0?2 drinks a day for men. ? Be aware of how much alcohol is in your drink. In the [place] one drink equals one 12 oz bottle of beer (355 mL), one 5 oz glass of wine (148 mL), or one 1? oz glass of hard liquor (44 mL). General information ? Avoid eating more than 2,300 mg of salt a day. If you have hypertension, you may need to reduce your sodium intake to 1,500 mg a day. ? Work with your health care provider to maintain a healthy body weight or to lose weight. Ask what an ideal weight is for you. ? Get at least 30 minutes of exercise that causes your heart to beat faster (aerobic exercise) most days of the week. Activities may include walking, swimming, or biking. ? Work with your health care provider or dietitian to adjust your eating plan to your individual calorie needs. What foods should I eat? Fruits All fresh, dried, or frozen fruit. Canned fruit in natural juice (without added sugar). Vegetables Fresh or frozen vegetables (raw, steamed, roasted, or grilled). Low-sodium or reduced-sodium tomato and vegetable juice. Low-sodium or reduced-sodium tomato sauce and tomato paste. Low-sodium or reduced-sodium canned vegetables. Grains Whole-grain or whole-wheat bread. Whole-grain or whole-wheat pasta. Brown rice. Oatmeal. Quinoa. Bulgur. Whole-grain and low-sodium cereals. Maryjo bread. Low- fat, low-sodium crackers. Whole-wheat flour tortillas. Meats and other proteins Skinless chicken or turkey. Ground chicken or turkey. Pork with fat trimmed off. Fish and seafood. Egg whites. Dried beans, peas, or lentils. Unsalted nuts, nut butters, and seeds. Unsalted canned beans. Lean cuts of beef with fat trimmed off. Low- sodium, lean precooked or cured meat, such as sausages or meat loaves. Dairy Low-fat (1%) or fat-free (skim) milk. Reduced-fat, low-fat, or fat-free cheeses. Nonfat, low-sodium ricotta or cottage cheese. Low-fat or nonfat yogurt. Low-fat, low-sodium cheese. Fats and oils Soft margarine without trans fats. Vegetable oil. Reduced-fat, low-fat, or light mayonnaise and salad dressings (reduced-sodium). Canola, safflower, olive, avocado, soybean, and sunflower oils. Avocado. Seasonings and condiments Herbs. Spices. Seasoning mixes without salt. Other foods Unsalted popcorn and pretzels. Fat-free sweets. The items listed above may not be a complete list of foods and beverages you can eat. Contact a dietitian for more information. What foods should I avoid? Fruits Canned fruit in a light or heavy syrup. Fried fruit. Fruit in cream or butter sauce. Vegetables Creamed or fried vegetables. Vegetables in a cheese sauce. Regular canned vegetables (not low-sodium or reduced-sodium). Regular canned tomato sauce and paste (not low-sodium or reduced-sodium). Regular tomato and vegetable juice (not low- sodium or reduced-sodium). Pickles. Olives. Grains Baked goods made with fat, such as croissants, muffins, or some breads. Dry pasta or rice meal packs. Meats and other proteins Fatty cuts of meat. Ribs. Fried meat. Layne. Bologna, salami, and other precooked or cured meats, such as sausages or meat loaves. Fat from the back of a pig (fatback). Bratwurst. Salted nuts and seeds. Canned beans with added salt. Canned or smoked fish. Whole eggs or egg yolks. Chicken or turkey with skin. Dairy Whole or 2% milk, cream, and ahsi-zsh-qqut. Whole or full-fat cream cheese. Whole-fat or sweetened yogurt. Full-fat cheese. Nondairy creamers. Whipped toppings. Processed cheese and cheese spreads. Fats and oils Butter. Stick margarine. Lard. Shortening. Ghee. Layne fat. Tropical oils, such as coconut, palm kernel, or palm oil. Seasonings and condiments Onion salt, garlic salt, seasoned salt, table salt, and sea salt. Worcestershire sauce. Tartar sauce. Barbecue sauce. Teriyaki sauce. Soy sauce, including reduced-sodium. Steak sauce. Canned and packaged gravies. Fish sauce. Oyster sauce. Cocktail sauce. Store-bought horseradish. Ketchup. Mustard. Meat flavorings and tenderizers. Bouillon cubes. Hot sauces. Pre-made or packaged marinades. Pre- made or packaged taco seasonings. Relishes. Regular salad dressings. Other foods Salted popcorn and pretzels. The items listed above may not be a complete list of foods and beverages you should avoid. Contact a dietitian for more information. Where to find more information ? National Heart, Lung, and Blood [place]: www.nhlbi.nih.gov ? [place] Heart Association: www.heart.org ? Academy of Nutrition and Dietetics: www.eatright.org ? National Kidney Foundation: www.kidney.org Summary ? The DASH eating plan is a healthy eating plan that has been shown to reduce high blood pressure (hypertension). It may also reduce your risk for type 2 diabetes, heart disease, and stroke. ? When on the DASH eating plan, aim to eat more fresh fruits and vegetables, whole grains, lean proteins, low-fat dairy, and heart-healthy fats. ? With the DASH eating plan, you should limit salt (sodium) intake to 2,300 mg a day. If you have hypertension, you may need to reduce your sodium intake to 1,500 mg a day. ? Work with your health care provider or dietitian to adjust your eating plan to your individual calorie needs. This information is not intended to replace advice given to you by your health care provider. Make sure you discuss any questions you have with your health care provider. Document Revised: 01/24/2020 Document Reviewed: 01/24/2020 [employer] Patient Education ? 2022 [employer] Inc[employer]Obstetrics and Gynecology Breast Self-Awareness Breast self-awareness means being familiar with how your breasts look and feel. It involves checking your breasts regularly and telling your health care provider about any changes. Practicing breast self-awareness helps to maintain breast health. Sometimes, changes are not harmful (are benign). Other times, a change in your breasts can be a sign of a serious medical problem. Being familiar with the look and feel of your breasts can help you catch a breast problem while it is still small and can be treated. You should do breast self-exams even if you have breast implants. What you need: ? A mirror. ? A well-lit room. ? A pillow or other soft object. How to do a breast self-exam A breast self-exam is one way to learn what is normal for your breasts and whether your breasts are changing. To do a breast self-exam: Look for changes 1. Remove all the clothing above your waist. 2. joint special operations front of a mirror in a room with good lighting. 3. Put your hands down at your sides. 4. Compare your breasts in the mirror. Look for differences between them (asymmetry), such as: ? Differences in shape. ? Differences in size. ? Puckers, dips, and bumps in one breast and not the other. 5. Look at each breast for changes in the skin, such as: ? Redness. ? Scaly areas. ? Skin thickening. ? Dimpling. ? Open sores (ulcers). 6. Look for changes in your nipples, such as: ? Discharge. ? Bleeding. ? Dimpling. ? Redness. ? A nipple that looks pushed in (retracted), or that has changed position. Feel for changes Carefully feel your breasts for lumps and changes. It is best to do this self- exam while lying down. Follow these steps to feel each breast: 1. Place a pillow under the shoulder of one side of your body. 2. Place the arm of that side of your body behind your head. 3. Feel the breast of that side of your body using the hand of the opposite arm. To do this: ? Start in the nipple area and use the pads of your three middle fingers to make ?-inch (2 cm) overlapping circles. ? Use light, medium, and then firm pressure as you feel your breast, gently covering the entire breast area and armpit. 4. Continue the overlapping circles, moving downward over the breast until you feel your ribs below your breast. 5. Then, make circles with your fingers going upward until you reach your collarbone. 6. Next, make circles by moving outward across your breast and into your armpit area. 7. Squeeze the nipple. Check for discharge and lumps. 8. Repeat steps 1?7 to check your other breast. 9. Sit or machine cementer the tub or shower. 10. With soapy water on your skin, feel each breast the same way you did when you were lying down. Write down what you find Writing down what you find can help you remember what to discuss with your health care provider. Write down: ? What is normal for each breast. ? Any changes that you find in each breast. These include: ? The kind of changes you find. ? Any pain or tenderness. ? Size and location of any lumps. ? Where you are in your menstrual cycle, if you are still getting your menstrual period (menstruating). General tips ? If you are , the best time to examine your breasts is after a feeding or after using a breast pump. ? If you menstruate, the best time to examine your breasts is 5?7 days after your menstrual period. Breasts are generally lumpier during menstrual periods, and it may be more difficult to notice changes. ? With time and practice, you will become more familiar with the differences in your breasts and more comfortable with the exam. Contact a health care provider if: ? You see a change in the shape or size of your breasts or nipples. ? You see a change in the skin of your breast or nipples, such as a reddened or scaly area. ? You have unusual discharge from your nipples. ? You find a new lump or thick area. ? You have breast pain. ? You have any concerns about your breast health. Summary ? Breast self-awareness includes looking for physical changes in your breasts and feeling for any changes within your breasts. ? Breast self-awareness should be done in front of a mirror in a well-lit room. ? If you menstruate, the best time to examine your breasts is 5?7 days after your menstrual period. ? Tell your health care provider about any changes you notice in your breasts. Changes include changes in size, changes on the skin, pain or tenderness, or unusual fluid from your nipples. This information is not intended to replace advice given to you by your health care provider. Make sure you discuss any questions you have with your health care provider. Document Revised: 01/11/2022 Document Reviewed: 12/23/2021 [employer] Patient Education ? 2022 [email or web address]. FAMILY MEDICINE OFFICE/CLINI C NOTE Observed: 09/14/2023 2:34 PM Status: F Source: [facility] Medicine Office/Clini c Note Chief Complaint Medicare Wellness Visit Subsequent [...] of clutter to prevent tripping and/or falling. [place] Advance Directives reviewed. Documents remain at home [...] PCP visit. Labs to be completed with [facility] [place] on a nurse visit. 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 Follow up with PCP. 3. Primary hypertension (I10: Essential (primary) hypertension) Patient taking medications daily as directed, BP not monitored at home. Patient does voice understanding with signs and symptoms to monitor for. HTN stoplight handout reviewed with importance of keeping BP <140/90 to prevent increased cardiovascular risks. DASH dietary handout reviewed with importance to lower salt intake, eat more chicken, fish and lean white meats. CMP ordered. Follow up with PCP. 4. Hypothyroidism (E03.9: Hypothyroidism, unspecified) Continues taking Levothyroxine daily as ordered. Voices no sensitivity to cold, extreme hair loss or increased daytime fatigue. TSH with T4 reflex ordered. Labs and medications followed up with PCP as needed. 5. Hypercholesterolemia (E78.00: Pure hypercholesterolemia, unspecified) Patient encouraged to eat a diet that is low in saturated fats. Stressed importance of losing weight and/or maintain healthy BMI. as being overweight does produce more lipids. Monitor alcohol intake and avoid smoking. Risks may also increase with a family history of hyperlipidemia. Patient voices understanding with healthy dietary choices to reduce risk factors associated with CVA. Currently diet controlled. Lipid panel ordered. Will continue to follow up with labs as directed. 6. Asthma (J45.998: Other asthma) Patient takes inhalers and Singulair as directed, uses PRN inhaler when needed. States effectiveness with current regimen. Respirations 16, non-labored on room air, sp02 95%, will follow up as needed with PCP. 7. Osteoarthritis of hip (M16.9: Osteoarthritis of hip, unspecified) Taking Celebrex as ordered, states effectiveness with medication. States she does some exercises in a therapy pool once per week. Denies pain at today's visit. Follow up with PCP. 8. Over weight (E66.3: Overweight) A combination of diet and exercise can help you lose weight. Discussed weight loss benefits to dietary management and overall health with increased cardiovascular risks associated with waist measurement female>35 men>40. Reminded of importance to work on lowering current body weight with healthy dietary intake choices and portion control. Reviewed goals and patients readiness with needing to make a lifestyle change. Will work on increasing daily activity to prevent further weight gain. Will continue to monitor during office visits with progress. I was in the office and available for consultation and to provide direct supervision at the time of this visit. I have provided supervision of the care team and have reviewed this chart and office note and agree with the plan of care. Follow-up No qualifying data available Problem List/Past [...] Household tobacco concerns: No., 07/19/2023 Family History Acute myocardial infarction: Grandparent and Grandparent. Immunizations Vaccine Date Status Comments influenza virus vaccine, inactivated 12/14/2022 Recorded SARS-CoV-2 (COVID-19) mRNAMUL.ORD![id number] 02/10/2022 Recorded influenza virus vaccine, inactivated 12/27/2021 [...] inactivated 03/18/2015 Recorded influenza, whole 01/17/2005 Recorded Result Comment: Electronical ly Signed By: LEA WALLACE CNP\.br\Date and Time Signed: 09/14/23 15:23 EDT\.br\Electronically Co-Signed By: Brittney Weber LPN\.br\Date and Time Co-Signed: 09/14/23 14:34 EDT ALLERGIES DATE TYPE / CODE NAME / CODE REACTION SEVERITY SOURCE 05/08/2024 Drug Allergy/470433 002(SNOMED CT) Sulfa (Sulfonamide Antibiotics)/D0159176 91(RXNORM) Nausea Unknown [facility] 08/02/2022 DRUG/756604037 (SNOMED CT) AMOXICILLIN-POT CLAVULANATE Unknown [facility] 08/02/2022 DRUG INGREDI/233836 003(SNOMED CT) FLUCONAZOLE Unknown [facility] 08/02/2022 DRUG INGREDI/886523 003(SNOMED CT) TRAMADOL Unknown [facility] 01/06/2021 Drug Class/34740692 3(SNOMED CT) SULFA (SULFONAMIDE ANTIBIOTICS) Unknown [facility] /878926532(S NOMED CT) sulfa drugs [id number] [facility] /837512193(S NOMED CT) Augmentin [id number] [facility] /691415068(S NOMED CT) Diflucan [id number] [facility] /141713383(S NOMED CT) traMADol [id number] [facility] ENCOUNTERS ADMIT/DISCHARGE ACCOUNT NUMBER ADMITTING ENCOUNTER CLASS LOCATION SOURCE 07/24/2024 [id number] Ambulatory Building:PMM R [facility] 06/26/2024/06/27/19 [id number] Ambulatory Building:NOM S NB OPHT [facility] EPIC 06/11/2024/06/12/19 25 [id number] Ambulatory Building:NOM S POD [facility] EPIC 05/23/2024/05/24/19 25 [id number] Ambulatory Building:NOM S POD [facility] EPIC 05/20/2024/05/21/19 25 [id number] Ambulatory [place] [place] [facility] 05/13/2024/05/14/19 25 [id number] Ambulatory [facility] [place]:[facility] [place] : CD:[id number] [address] [place] [address] 05/08/2024/05/09/19 25 [id number] Fred Hernandez II [facility] 04/08/2024/04/08/19 25 [id number] Ambulatory [place] [facility] [place]:[facility] [place] : CD:[id number] [address] [place] [address] 03/05/2024/03/05/20 24 [id number] Marija Vega [facility] 02/21/2024/02/21/20 24 [id number] Ambulatory Building:NOM S NB OPHT [facility] EPIC 02/13/2024/02/13/20 24 [id number] Ambulatory [place]:[facility] [place] : CD:[id number] [address] [place] [address] 01/16/2024/01/16/20 24 [id number] Ambulatory [place] [facility] [place]:FT FM [place] [facility] 01/08/2024/01/08/20 24 [id number] Ambulatory [place]:[facility] [place] : CD:[id number] [facility] 01/03/2024/01/03/20 24 [id number] Ambulatory [place] [facility] [place]:FT [facility] [place] : CD:[id number] [facility] 12/11/2023 [id number] DOUSMANROSEMELISSA Patricia Ambulatory FTMCBuilding :FT LAB [facility] 12/11/2023/12/11/19 24 [id number] [facility] Ambulatory FTMCBuilding :FT LAB [facility] 12/11/2023/12/11/19 24 [id number] Ambulatory FT [place]:FT [facility] 11/30/2023/11/30/19 24 [id number] Ambulatory Building:[facility] 11/20/2023/11/20/19 24 [id number] Ambulatory Building:[facility] 09/19/2023/09/19/19 24 [id number] Ambulatory [place] [facility] [place]:FT [facility] [place] : CD:[id number] [facility] 09/18/[id number] Yaniv Singh Ambulatory FTMCBuilding :[facility] 09/18/2023/09/18/19 24 [id number] Yaniv Singh Ambulatory FTMCBuilding :FT [facility] 09/18/2023/09/18/19 24 [id number] Ambulatory [place]:FT [facility] 09/14/2023/09/14/19 24 [id number] Ambulatory FT [place]:FT [facility] 08/02/2023/08/02/19 24 [id number] Ambulatory [facility] EPIC PAYERS ENCOUNTER GUARANTOR PAYER SUBSCRIBER SOURCE 07/24/2024 Primary Insurance:AETNA MEDICARE ADVANTAGEPolicy Number: [id number] Date:2021-03-06 UNA ANTHONYERINGDOB: [id number] [place] [address] [facility] 06/26/2024 UNA Garcia PICKOSMARDOB: [facility] [place] [address]Xxb: (HP) Primary Insurance:AETNA MEDICARE ADVANTAGEPolicy Number: [id number] Date:2021-03-06 UNA GOMEZDOB: [id number] [place] [address] [facility] EPIC 06/11/2024 UNA GOMEZDOB: [facility] [place], [place] [address]Eto: (HP) Primary Insurance:AETNA MEDICARE ADVANTAGEPolicy Number: [id number] Date:2021-03-06 UNA GOMEZDOB: [id number] [place] [address] [facility] 05/23/2024 UNA GOMEZDOB: [facility] [place] [address]Ffx: (HP) Primary Insurance:AETNA MEDICARE ADVANTAGEPolicy Number: [id number] Date:2021-03-06 UNA GOMEZDOB: [id number] [facility] [place] [address] [facility] EPIC 05/20/2024 UNA GOMEZDOB: [place]: ~~( 41 (HP) Primary Insurance:AETNAPolicy Number: [id number] Date:5711-12-07IE PABLO 201281AGZOYA PERRIN [address]SN: UNA ROPER [facility] 05/13/2024 UNA Garcia PICKOSMARDOB: [place] [address]Tel: ~~( 41 (HP) Primary Insurance:AETNAPolicy Number: [id number] Date:6385-69-93EI [address] [place], [place] [address]HJ: UNA ROPER [facility] 05/08/2024 Una Landaverde [place], [place] [address]Oaf: (HP) Primary Insurance:Aetna [facility] PFFSPolicy Number: [id number] Date:3035-09-82QG [address], [place] [address]TJ: Una GomezDOB: [id number] [place], [place] [address]Bvg: (HP) [facility] 05/08/2024 Secondary Insurance:Self PayPolicy Number: Effective Date:2024-05-08 [facility]/08/2024 UNA GOMEZDOB: [place]Tel: ~~( 41 (HP) Primary Insurance:AETNAPolicy Number: [id number] Date:8712-42-73VS [address], [place] [address]LM: [facility] 03/05/2024 Una Santiago4 [place], [place] [address]Ken: (HP) Primary Insurance:Aetna [facility] PFFSPolicy Number: [id number] Date:6216-65-04IN [address] [address]KV: Una GomezDOB: [id number] [place], [place] [address]Aew: (HP) [facility] 03/05/2024 Secondary Insurance:Self PayPolicy Number: Effective Date:2024-02-22 [facility] 02/21/2024 UNA ANTHONYERINGDOB: [place], [place] [address]Dza: (HP) Primary Insurance:AETNA MEDICARE ADVANTAGEPolicy Number: [id number] Date:2021-03-06 UNA Garcia PICKERINGDOB: [id number] [place] [address] [facility] 02/13/2024 UNA Garcia PICKERINGDOB: [place]Tel: ~~( 41 (HP) Primary Insurance:AETNAPolicy Number: [id number] Date:8483-59-89ZS [address] [address]YT: [facility] 01/16/2024 UNA Garcia PICKERINGDOB: [place]Tel: ~(4 19 (HP) Primary Insurance:AETNAPolicy Number: [id number] Date:0229-87-81GD [address] [place] [address]HW: [facility] 01/08/2024 UNA Garcia PICKERINGDOB: [place]Tel: ~(4 19 (HP) Primary Insurance:AETNAPolicy Number: [id number] Date:5773-34-37KV [address] [place] [address]JZ: [facility] 01/03/2024 UNA S PICKERINGDOB: [place]Tel: ~(4 19 (HP) Primary Insurance:AETNAPolicy Number: [id number] Date:1576-16-78SQ [address] [place] [address]RC: [facility] 12/11/2023 UNA S PICKERINGDOB: [place] PLTel: ~(4 19 (HP) Primary Insurance:AETNAPolicy Number: [id number] Date:1205-01-68EV [address], [place] [address]BE: UNASANJUANITA ROPER [facility] 12/11/2023 UNA S PICKERINGDOB: [place]Tel: ~(4 19 (HP) Primary Insurance:AETNAPolicy Number: [id number] Date:7288-24-68GA [facility] [id number] [place] [address]PD: UNASANJUANITA ROPER [facility] 11/30/2023 Primary Insurance:AETNA MEDICARE ADVANTAGEPolicy Number: [id number] Date:2021-03-06 UNA S GABRIELLEERINGDOB: [id number] [place] [address] [facility] 11/20/2023 NUA S GABRIELLEERINGDOB: [place], [place] [address]Eod: (HP) Primary Insurance:AETNA MEDICARE ADVANTAGEPolicy Number: [id number] Date:2021-03-06 UNA S GABRIELLEERINGDOB: [id number] [place] [address] [facility] 09/19/2023 UNA S PICKERINGDOB: [place]Tel: ~(4 19 (HP) Primary Insurance:AETNAPolicy Number: [id number] Date:3907-56-12TA [facility] [address], [place] [address]CQ: UNASANJUANITA ROPER [facility] 09/18/2023 UNA S PICKERINGDOB: [place]Tel: ~(4 19 (HP) Primary Insurance:AETNAPolicy Number: [id number] Date:7730-11-01OJ [address] [place] [address]WS: UNA ROPER [facility] 09/18/2023 UNA S PICKERINGDOB: [place]Tel: ~(4 19 (HP) Primary Insurance:AETNAPolicy Number: [id number] Date:6042-49-97OL [address] [place] [address]PA: UNA ROPER [facility] 09/14/2023 UNA Garcia PICKERINGDOB: [place]Tel: ~(4 19 (HP) Primary Insurance:AETNAPolicy Number: [id number] Date:9042-25-49NO [facility] [id number] [place] [address]HP: UNA ROPER [facility] 08/02/2023 UNA S GABRIELLEOSMARDOB: [place], [place] [address]Dej: (HP) Primary Insurance:AETNA MEDICARE ADVANTAGEPolicy Number: [id number] Date:2021-03-06 UNA S PICKERINGDOB: [id number] [place] [address] [facility] EPIC
--- OUTSIDE RECORDS SUMMARY | 2024-07-25 13:27 | XMS_ITS | Clinical Summary ---
Author Organization [facility] [employer] [facility] tem Address [id number] [address] [place] [address] Care Team Providers Care Multiple Drum Sander Name Role Phone Shruthi Monterroso MD Primary Care Provider [phone] Allergies Active Allergy Reactions Criticality Noted Date Comments Sulfa (Sulfonamide Antibiotics) 05/2020 Medications albuterol (PROVENTIL HFA;VENTOLIN HFA) 90 mcg/actuation inhaler 1 Active aspirin 81 mg chewable tablet Chew 81 mg and swallow daily. Active SYMBICORT 80-4.5 mcg/actuation inhaler 1 Active bupivacaine HCl (MARCAINE) 0.5 % (5 mg/mL) injection bupivacaine HCl 0.5 % (5 mg/mL) injection solution via inject Active calcium carbonate (TUMS) 200 mg (500 mg) chewable tablet Chew 200 mg and swallow daily. Active candesartan (ATACAND) 4 mg tablet Take 4 mg by mouth daily. 1 Active celecoxib (CeleBREX) 200 mg capsule Take 200 mg by mouth 2 (two) times a day. 1 Active digoxin (LANOXIN) 125 mcg tablet Take 125 mcg by mouth daily. Active SYNTHROID 50 mcg tablet Take 50 mcg by mouth daily. 1 Active metoprolol succinate XL (TOPROL-XL) 25 mg 24 hr tablet Take 25 mg by mouth daily. Active montelukast (SINGULAIR) 10 mg tablet Take 10 mg by mouth daily. 1 Active spironolactone (ALDACTONE) 25 mg tablet Take 25 mg by mouth daily. 1 Active vit A/C/E ac/ZnOx/cupric oxide (EYE VITAMIN AND MINERALS ORAL) Take by mouth 2 (two) times a day. Active Active Problems No known active problems Family History Medical History Relation Name Comments Throat cancer Maternal Aunt Relation Name Status Comments Brother Alive Father Maternal Aunt Mother Social History Tobacco Use Types Packs/Day Years Used Date Smoking Tobacco: Never Smokeless Tobacco: Never Alcohol Use Standard Drinks/Week Comments Never 0 (1 standard drink = 0.6 oz pur e alcohol) Comments Unknown Sex and Gender Information Value Date Recorded Sex Assigned at Not on file Legal Sex Female 1:09 PM EDT Gender Identity Not on file Sexual Orientation Not on file Last Filed Vital Signs Vital Sign Reading Time Taken Comments Blood Pressure 132/80 02/12/2021 10:05 AM EST Pulse - - Temperature 35.6 C (96 F) 02/12/2021 10:05 AM EST Respiratory Rate - - Oxygen Saturation - - Inhaled Oxygen Concentration - - Weight 65.3 kg (144 lb) 02/12/2021 10:05 AM EST Height 149.9 cm (4' 11 ) 02/12/2021 10:05 AM EST Body Mass Index 29.08 02/12/2021 10:05 AM EST Plan of Treatment Health Maintenance Due Date Last Done Comments Depression Screening 1952 Tobacco Screening 1952 DTaP,Tdap and Td Vaccines (1 - Tdap) 1957 Zoster (Shingles) Vaccine (1 of 2) 1988 Fall Risk Screening 2003 COVID-19 Vaccine (3 - 2023-2 5 season) 2023 05/05/2020, 04/07/2020 Influenza Vaccine 11/04/2024 02/10/2021, , 01/30/2018, Additional history exists Medical Devices Not on file Insurance AETNA MEDICARE Care Teams Multiple Drum Sander Relationship Specialty Start Date End Date Shruthi Monterroso MD PCP - General Family Medicine 12/30/20
--- OUTSIDE RECORDS SUMMARY | 2024-07-25 13:27 | XMS_ITS | Clinical Summary ---
Author Organization [facility] Address [address] [place], [place] [address] Care Team Providers Care Dental Technician Instructor Name Role Phone Shruthi Monterroso MD Primary Care Provider [phone] Social History Tobacco Use Types Packs/Day Years Used Date Smoking Tobacco: Never Assessed Comments Unknown Sex and Gender Information Value Date Recorded Sex Assigned at Not on file Legal Sex Female 8:46 AM EST Gender Identity Not on file Sexual Orientation Not on file Plan of Treatment Not on file Insurance AETNA MEDICARE Care Teams Dental Technician Instructor Relationship Specialty Start Date End Date Shruthi Monterroso MD [address] [place] [address] PCP - General Family Medicine 01/30/15
--- OUTSIDE RECORDS SUMMARY | 2024-07-25 13:27 | XMS_ITS | Encounter Summary ---
Author Organization [facility] Address [address] [place] [address] Care Team Providers Care Supervisor Quality Control Name Role Phone Shruthi Monterroso MD Primary Care Provider [phone] Source Comments In the event this information is protected by the Federal Confidentiality of Alcohol and Drug AbusePatient Records regulations: The Federal rules restrict any use of the information to criminally investigate or prosecute any alcohol or drug abuse patient.[facility] Encounter Details Date Type Department Care Team (Late st Contact Info) Description 08/05/2022 Lab Requisition [facility] [address] [place] [address] Josie Bauman MD [address] [place], [place] [id number] Person encountering health services to consult on behalf of another person Social History Tobacco Use Types Packs/Day Years Used Date Smoking Tobacco: Never Assessed Comments Unknown Sex and Gender Information Value Date Recorded Sex Assigned at Not on file Legal Sex Female 8:46 AM EST Gender Identity Not on file Sexual Orientation Not on file documented as of this encounter Plan of Treatment Not on file documented as of this encounter Procedures Procedure Name Priority Date/Time Associated Diagnosis Comments SURGICAL PATHOLOGY REFERENCE LAB CONSULT Routine 08/05/2022 9:15 AM EDT Person encountering health services to consult on behalf of another person documented in this encounter Results * SURGICAL PATHOLOGY REFERENCE LAB CONSULT (08/05/2022 9:15 AM EDT) Case Report Surgical Pathology Report Case: [id number] Authorizing Provider: Josie Bauman MD Collected: 08/05/2022 09:15 AM Ordering Location: [facility] Main Received: 08/05/2022 09:14 AM Pathologist: Kymberly Srivastava MD Specimen: SLIDE(S)/BLOCK(S), 7 SLIDES AND 1 BLOCK ([id number]) 08/08/2022 12:02 PM EDT [facility] FINAL DIAGNOSIS A. Skin, left clavicle, excision ([id number], 07/26/2022): -Squamous cell carcinoma in situ, see comment. ZOFIA/ARIADNA 08/07/2022 08/08/2022 12:02 PM EDT [facility] at 1202 EDT Diagnosis Comment Many thanks for sending in consultation this excision from the clavicle of your 82-year-old patient. Histologic sections demonstrate actinically damaged skin with full-thickness keratinocytic dysplasia that extends focally down adnexal structures. There are areas composed of of larger more clear keratinocytes that demonstrate pagetoid scatter. Ancillary diagnostic stains from the referring institution were reviewed. The intra-epidermal proliferation demonstrates patchy positivity for CK AE1/3 and p16. The cells are negative for Melan-A, SOX10, and GMS. This is an interesting case. 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 Thank you for sending this case in consultation. Please call the Dermatopathology Consultation Service at [phone] with questions or if additional follow-up information becomes available regarding this patient. This case was reviewed in conjunction with the Dermatopathology Fellow, Dr. Chatman. 08/08/2022 12:02 PM EDT [facility] Clinical History CONSULT REQUESTED 08/08/2022 12:02 PM EDT [facility] Performing Lab Diagnostic interpretation performed at [facility], [address] [place], [place] [address] CLIA# [id number] Bead Trimmer: Tera Dixon M.D. 08/08/2022 12:02 PM EDT [facility] Blocks or Slides PARAFFIN EMBEDDED TISSUE BLOCK SPECIMEN / Unknown 08/05/2022 9:15 AM EDT 08/05/2022 9:14 AM EDT us Josie Bauman MD SURGICAL PATHOLOGY Final Result [facility] [address] [facility] [address] [place] [address], documented in this encounter Visit Diagnoses Diagnosis Person encountering health services to consult on behalf of another person Other person consulting on behalf of another person documented in this encounter Care Teams Supervisor Quality Control Relationship Specialty Start Date End Date Shruthi Monterroso MD [address] [place] [address] PCP - General Family Medicine 01/30/15 documented as of this encounter
--- OUTSIDE RECORDS SUMMARY | 2024-07-25 13:27 | XMS_ITS | Clinical Summary ---
Author Organization [facility] Address [address] [place] [address] Care Team Providers Care Memory Care Program Resident Name Role Phone Yaniv Singh MD Primary Care Provider [phone] Allergies Active Allergy Reactions Criticality Noted Date Comments Amoxicillin-Pot Clavulanate Unknown 08/03/19 23 Fluconazole 08/02/2022 Other Reaction(s): Unknown Sulfa Antibiotics Unknown 08/02/2022 Tramadol 08/02/2022 Other Reaction(s): Unknown Medications acetaminophen (Tylenol Extra Strength) 500 MG tablet every 6 (six) hours. Active albuterol HFA (Proventil HFA) 90 mcg/act inhaler 2 puff(s), Inhalation, q4hr, Refill(s) 0, as needed 3 Active aspirin 81 MG chewable tablet Daily. Active aspirin 81 MG chewable tablet Chew 81 mg 1 (one) time each day at the same time. Active aspirin 81 MG EC tablet 1 (one) time each day at the same time. Active Symbicort 80-4.5 MCG/ACT inhaler 3 Active bupivacaine (Marcaine) 0.5 % injection bupivacaine HCl 0.5 % (5 mg/mL) injection solution via inject Active calcium carbonate (Os-Yung) 1250 (500 Ca) MG chewable tablet Chew 200 mg in the morning. Active celecoxib (CeleBREX) 200 MG capsule 1 (one) time each day at the same time. 3 Active celecoxib (CeleBREX) 200 MG capsule celecoxib 200 mg capsule Active cephalexin (Keflex) 500 MG capsule Take 500 mg by mouth in the morning and 500 mg before bedtime. 3 Active desonide (DesOwen) 0.05 % cream APPLY SMALL AMOUNT 3 TIMES A DAY NEEDED 3 Active digoxin (Lanoxin) 125 MCG tablet digoxin 125 mcg (0.125 mg) tablet 3 Active famotidine (Pepcid) 40 MG tablet Take 40 mg by mouth. 3 Active Synthroid 50 MCG tablet Synthroid 50 mcg tablet 3 Active metoprolol succinate XL (Toprol-XL) 25 MG 24 hr tablet metoprolol succinate ER 25 mg tablet,extended release 24 hr 3 Active metoprolol tartrate (Lopressor) 25 MG tablet 1 (one) time each day at the same time. Active montelukast (Singulair) 10 MG tablet montelukast 10 mg tablet 3 Active Multiple Vitamins-[place] als (PreserVision AREDS) tablet Orally Active prednisoLONE acetate (Pred-Forte) 1 % ophthalmic suspension prednisolone acetate 1 % eye drops,suspension Active spironolactone (Aldactone) 25 MG tablet every 12 (twelve) hours. 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 09/19/2022 Encounters Date Type Department Care Team Description 06/26/2024 1:15 PM EDT Office Visit [facility] [address] [facility] [address] [place] [address] Shabbir Wills, 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 (Primary Dx); Dry eyes; Blepharitis of upper and lower eyelids of both eyes, unspecified type 06/26/2024 Bamboo flowsheet [facility] [address] [place] [phone] Shabbir Wills DO 06/26/2024 Travel 06/11/2024 1:50 PM EDT Office Visit [facility] [address] [place] [phone] Dolce, Jose R, DPM FACFAS Neoplasm of uncertain behavior of skin (Primary Dx); Plantar verruca 06/11/2024 Bamboo flowsheet [facility] [address] [place] [phone] Dolce, Jose R, DPM FACFAS 05/23/2024 2:00 PM EDT Office Visit [facility] [address] [place] [phone] Dolce, Jose R, DPM FACFAS Neoplasm of uncertain behavior of skin (Primary Dx); Plantar verruca; Pain in right toe(s) 05/23/2024 Bamboo flowsheet [facility] [address] [place] [phone] Dolce, Jose R, DPM FACFAS 05/13/2024 Travel from Last 3 Months Family History Medical History Relation Name Comments No Known Problems Brother No Known Problems Father Cancer Mother Hypertension Mother No Known Problems Sister Relation Name Status Comments Brother Father Mother Sister Social History Tobacco Use Types Packs/Day Years Used Date Smoking Tobacco: Never Passive Smoke Exposure: Never Smokeless Tobacco: Never Tobacco Cessation:Counseling Given: Yes Alcohol Use Standard Drinks/Week Comments Never 0 (1 standard drink = 0.6 oz pur e alcohol) caffeine: 1-2 cups per day Comments Unknown Sex and Gender Information Value Date Recorded Sex Assigned at Female 11/16/2022 8:12 PM EDT Legal Sex Female 8:34 PM EDT Gender Identity Female 11/16/2022 8:12 PM EDT Sexual Orientation Not on file Last Filed Vital Signs Vital Sign Reading Time Taken Comments Blood Pressure 124/72 06/11/2024 2:19 PM EDT Pulse 67 06/11/2024 2:19 PM EDT Temperature - - Respiratory Rate - - Oxygen Saturation - - Inhaled Oxygen Concentration - - Weight 57.2 kg (126 lb) 06/11/2024 2:19 PM EDT Height 147.3 cm (4' 10 ) 06/11/2024 2:19 PM EDT Body Mass Index 26.33 06/11/2024 2:19 PM EDT Plan of Treatment Upcoming Encounters Date Type Department Care Team (Late st Contact Info) Description 10/30/2024 1:15 PM EDT Office Visit [facility] [address] [place] [address] Shabbir Wills, [address] [place], [place] [id number] Health Maintenance Due Date Last Done Comments Pneumococcal Vaccine: 65+ Years Completed , 09/12/2019 Influenza Vaccine Completed 01/23/2024, , 12/27/2021, Additional history exists Procedures Procedure Name Priority Date/Time Associated Diagnosis Comments OCT, RETINA - OU - BOTH EYES Routine 06/26/2024 1:51 PM EDT 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 from Last 3 Months Results * OCT, Retina - OU - Both Eyes (06/26/2024 1:51 PM EDT) Anatomical Region Laterality Modality Head Optical Coherenc e Tomography Narrative 06/26/2024 1:51 PM EDT Right Eye Quality was good. Scan locations included subfoveal. Progression has been stable. Findings include abnormal foveal contour, pigment epithelial detachment. Left Eye Quality was good. Scan locations included subfoveal. Progression has been stable. Findings include abnormal foveal contour, pigment epithelial detachment. us Shabbir Wills DO OPHTH TOMOGRAPHY Edited Res ult - Final from Last 3 Months Insurance [employer] MED[employer]ARE [employer]VANTAGE Care Teams Memory Care Program Resident Relationship Specialty Start Date End Date Yaniv Singh MD [address] [place] [address] PCP - General Family Medicine 11/20/23
--- NOTE | 2024-07-25 13:36 | PM.WCHP ---
Wound Care H&P: HPI History of Present Illness Narrative: The patient is a pleasant 84-year-old female with history of postpolio syndrome who presents for routine toenail care and callus management. The patient states she has a callus on the right fifth toe that is very painful and limits her ability to walk and carry out ADLs. Her postpolio syndrome has affected her right leg and foot and has resulted in numbness in her foot and weakness. [facility] Medical History (Updated 07/25/24 @ 13:42 by TIMOTHY Gutierres) Osteoarthritis ?M19.90 - Unspecified osteoarthritis, unspecified site (ICD-10) Hypothyroid ?E03.9 - Hypothyroidism, unspecified (ICD-10) Asthma ?J45.909 - Unspecified asthma, uncomplicated (ICD-10) Irregular heart beat ?I49.9 - Cardiac arrhythmia, unspecified (ICD-10) Hypertension ?I10 - Essential (primary) hypertension (ICD-10) Surgical History (Updated 08/05/22 @ 13:31 by Dominique Castellanos) History of cholecystectomy ?Z90.49 - Acquired absence of other specified parts of digestive tract (ICD-10) History of arthroplasty of left shoulder ?Z96.612 - Presence of left artificial shoulder joint (ICD-10) History of arthroplasty of right shoulder ?Z96.611 - Presence of right artificial shoulder joint (ICD-10) Status post tonsillectomy and adenoidectomy ?Z90.89 - Acquired absence of other organs (ICD-10) Social History Little interest or pleasure in doing things: not at all Feeling down, depressed, or hopeless: not at all Meds Home Medications and Allergies Home Medications ?Medication ?Instructions ?Recorded ?Confirmed ?Type acetaminophen 500 mg tablet 500 mg PO BID PRN pain 08/05/22 08/05/22 History (Tylenol Extra Strength) aspirin 81 mg capsule 81 mg PO DAILY 08/05/22 08/05/22 History budesonide-formoterol HFA 80 2 inh inhalation BID 08/05/22 08/05/22 History mcg-4.5 mcg/actuation aerosol inhaler (Symbicort) calcium carbonate (Antacid 200 mg PO DAILY 08/05/22 08/05/22 History (calcium carbonate)) candesartan 4 mg tablet (Atacand) 4 mg PO DAILY 08/05/22 08/05/22 History celecoxib 200 mg capsule (Celebrex) 200 mg PO BID 08/05/22 08/05/22 History digoxin 125 mcg (0.125 mg) tablet 125 mcg PO DAILY 08/05/22 08/05/22 History (Digitek) levothyroxine 50 mcg tablet 50 mcg PO DAILY 08/05/22 08/05/22 History (Euthyrox) metoprolol tartrate 25 mg tablet 25 mg PO .hs 08/05/22 08/05/22 History montelukast 10 mg tablet 10 mg PO DAILY 08/05/22 08/05/22 History (Singulair) pro-air inhaler 08/05/22 History spironolactone 25 mg tablet 25 mg PO DAILY 08/05/22 08/05/22 History (Aldactone) vit C 250 mg-vit E 90 mg-zinc 40 1 tab PO BID 08/05/22 08/05/22 History mg-copper 1 [id number] capsule (PreserVision AREDS-2) Allergies Allergy/AdvReac Type Severity Reaction Status Date / Time Sulfa (Sulfonamide Allergy Mild Nausea Verified 08/05/22 13:18 Antibiotics) Exam Narrative: Exam Narrative: Derm: Toenails 1 through 10 are thickened, elongated, and painful. No evidence of paronychia. Small callus noted on the right lateral fifth toe where it purchases the ground. No ulceration noted at base. No sign of infection. Skin is diffusely dry, thin, and atrophic. Vascular: DP and PT pulses are nonpalpable on the right. DP pulses 2/4 on the left and PT pulses 1/4 on the left. Neuro: Vibratory sensation is absent on the right, present on the left. Achilles deep tendon reflex is 1+ on the right and absent on the left. Protective sensation was tested with the monofilament and is present in 1/5 areas tested on the right and 3/5 areas tested on the left. Weakness noted in all planes, but especially with with dorsiflexion of the right foot. Musculoskeletal: Hammertoe and rotational deformity noted of the right fifth toe. Weakness noted on the right foot/ankle. No gross deformity or weakness noted on the left. Assessment and Plan Assessment and Plan (1) Tinea unguium: (2) Diminished pulses in lower extremity: (3) Callus of foot: (4) Abnormality of gait due to impairment of balance: (5) Post-polio limb muscle weakness: Plan Routine nail care performed. Callus on the right fifth toe was pared with a dermal curette without incident. Patient noted pain relief postprocedure. She was encouraged to use a moisturizer and foot file to keep the callus exfoliated. Follow-up in 3 months or as needed. Acute Procedures Podiatry Nail Debridement Class B Findings Absent posterior tibial pulse: right Advanced trophic changes as evidenced by any three of the following: decreased hair growth, nail changes (thickening) and skin texture (thin or shiny) Absent dorsalis pedis pulse: right Class C Findings Claudication: No Temperature changes: No Edema: No Nail debridement paresthesia (abnormal spontaneous sensations in the feet): No Burning: No Qualifies If: Qualifiers If:: A patient qualifies for nail debridement if they have: 1 class A finding (Q7) 2 class B findings (Q8) OR 1 class B & 2 class C findings in addition to a primary condition (Q9) Nail Procedure Nail Procedure Time out: Yes Nail procedure: other (Toenail debridement toes 1 through 10, callus paring right toe #5) Number of affected nails: 10 Location (toes): left and right Procedure successful: Yes Patient tolerated procedure: well and no complications Additional comments: Toenails 1 through 10 were sharply debrided with nail nippers without incident. Callus on the right fifth toe was pared with a dermal curette without incident.
== END 2024-07-25 13:26 | disposition home or self-care (01) ==
LOC: WC 13:25
PROVIDERS: PCP Family Medicine; Visit Provider Physician Assistant
DX: B35.1 Tinea unguium (principal); I70.211 Atherosclerosis of native arteries of extremities with intermittent claudication, right leg; L84 Corns and callosities; R26.89 Other abnormalities of gait and mobility; G14 Postpolio syndrome
CPT/HCPCS: 11055; 11721

== ENCOUNTER 2024-10-02 10:55 | Outpatient (OUT) | payer MEDICARE, SELFPAY ==
--- OUTSIDE RECORDS SUMMARY | 2024-09-26 23:59 | XMS_ITS | Continuity of Care Document ---
Author Organization [facility] Address [address] [place] [address] Care Team Providers Care Finish Patcher Name Role Phone Marlee Malcolm Primary Care Physician Encounter FT_AMBFIN [id number] Date(s): 09/26/24 - 09/26/24 [facility] [address] [place] [address]- Encounter Diagnosis Hypercholesterolemia(Discharge Diagnosis) - 09/26/24 Discharge Disposition: Home (Routine DC) Attending Physician: Marlee Martinez Encounter Type: Clinic Allergies, Adverse Reactions, Alerts Substance Criticality Severity Reaction Reaction Severity Status sulfa drugs Unknown Active Augmentin Unknown Active Diflucan Unknown Active traMADol Unknown Active Assessment and Plan Future Appointments Appointment Date:02/17/2025 01:40:00 PM Scheduled Provider:Marlee Martinez [facility] Appointment Type: Open Appointment Date:09/09/2025 11:00:00 AM Scheduled Provider: Location:[facility] Appointment Type: Medicare Wellness Subsequent Future Scheduled Tests Radiology* BD Bone Density DEXA 09/09/24 Immunizations Given and Recorded Vaccine Date Status Refusal Reason influenza virus vaccine, inactivated 01/23/24 Cruz rded influenza virus vaccine, inactivated 12/14/22 Cruz rded influenza virus vaccine, inactivated 12/27/21 Cruz rded influenza virus vaccine, inactivated 02/10/21 Cruz rded influenza virus vaccine, inactivated 02/01/19 Cruz rded influenza virus vaccine, inactivated 01/30/18 Cruz rded influenza virus vaccine, inactivated 03/04/16 Cruz rded influenza virus vaccine, inactivated 03/18/15 Cruz rded SARS-CoV-2 (COVID-19) [id number] 02/10/22 Recorded SARS-CoV-2 (COVID-19) mRNA-1273 vaccine 1 03/17/21 Recorded SARS-CoV-2 (COVID-19) mRNA-1273 vaccine 05/05/20 R ecorded SARS-CoV-2 (COVID-19) mRNA-1273 vaccine 04/07/20 R ecorded pneumococcal 23-valent vaccine 09/11/20 Recorded pneumococcal 13-valent vaccine 09/12/19 Recorded influenza, whole 01/17/05 Recorded 1Result Comment: 2022-07-04: [id number] Medications Albuterol (Eqv-ProAir HFA) 90 mcg/inh inhalation aerosol See Instructions, 8.5 EA, Refill(s) 0, TAKE 2 PUFFS EVERY 4 HOURS NEEDED, [id number], 148, cm, 07/19/23 10:14:00 EDT, Height/Length Dosing, 61.7, kg, 07/19/23 10:14:00 EDT, Weight Dosing Start Date: 08/15/23 Status: Ordered Quantity: 8.5 Unit: EA Repeat number: 1 aspirin 81 mg, Oral, Daily, Refills(s) 0 Start Date: 09/08/22 Status: Ordered Repeat number: 1 candesartan 4 mg Tab See Instructions, TAKE 1 TABLET BY MOUTH EVERY DAY, # 90 tab(s), Refills(s) 4, [id number] 147, cm, 08/29/24 14:41:00 EDT, Height/Length Dosing, 57.9, kg, 08/29/24 14:41:00 EDT, Weight Dosing Start Date: 09/02/24 Status: Ordered Quantity: 90.0 Unit: tab(s) Repeat number: 5 celecoxib 200 mg Cap See Instructions, TAKE 1 CAPSULE BY MOUTH TWICE A DAY NEEDED FOR PAIN, # 180 cap(s), Refills(s) 1, Pharmacy: [facility]/pharmacy #[id number], 147, cm, 09/09/24 11:11:00 EDT, Height/Length Dosing, 58.1, kg, 09/09/24 11:11:00 EDT, Weight Dosing Start Date: 09/18/24 Status: Ordered Quantity: 180.0 Unit: cap(s) Repeat number: 2 digoxin 125 mcg (0.125 mg) Tab See Instructions, TAKE 1 TABLET BY MOUTH EVERY DAY, # 90 tab(s), Refills(s) 3, Pharmacy: [facility] [id number], 147, cm, 02/13/24 10:53:00 EST, Height/Length Dosing, 59.9, kg, 02/13/24 10:53:00 EST, WeightDosing Start Date: 04/01/24 Status: Ordered Quantity: 90.0 Unit: tab(s) Repeat number: 1 levothyroxine 50 mcg (0.05 mg) Tab See Instructions, TAKE 1 TABLET BY MOUTH EVERY DAY, # 90 tab(s), Refills(s) 1, [id number], 147, cm, 05/20/24 10:52:00 EDT, Height/Length Dosing, 58.5, kg, 05/20/24 10:52:00 EDT, Weight Dosing Start Date: 05/20/24 Status: Ordered Quantity: 90.0 Unit: tab(s) Repeat number: 2 meclizine 25 mg Tab 25 mg = 1 tab(s), Oral, q8hr, as needed for dizziness, # 30 tab(s), Refills(s) 0, [id number], 147.8, cm, 07/26/22 15:28:00 EDT, Height/Length Dosing, 63.6, kg, 07/26/22 15:28:00 EDT, Weight Dosing Start Date: 08/25/22 Status: Ordered Quantity: 30.0 Unit: tab(s) Repeat number: 1 methylPREDNISolone 4 mg tab dosepak = 1 packet(s), Oral, Once, as directed on package labeling, # 21 tab(s), Refills(s) 0, [id number], 147, cm, 09/09/24 11:11:00 EDT, Height/Length Dosing, 58.1, kg, 09/09/24 11:11:00 EDT, Weight Dosing Start Date: 09/18/24 Status: Ordered Quantity: 21.0 Unit: tab(s) Repeat number: 1 metoprolol succinate 25 mg ER Tab 25 mg = 1 tab(s), Oral, Bedtime, X 90 day(s), # 90 tab(s), Refills(s) 3, [id number], 147, cm, 02/13/24 10:53:00 EST, Height/Length Dosing, 59.9, kg, 02/13/24 10:53:00 EST, Weight Dosing Start Date: 04/03/24 Stop Date: 03/29/25 Status: Ordered Quantity: 90.0 Unit: tab(s) Repeat number: 4 montelukast 10 mg Tab See Instructions, TAKE 1 TABLET BY MOUTH EVERY DAY, # 90 tab(s), Refills(s) 3, Pharmacy: [facility] [id number], 147, cm, 04/08/24 10:58:00 EST, Height/Length Dosing, 59.7, kg, 04/08/24 10:58:00 EST, WeightDosing Start Date: 04/15/24 Status: Ordered Quantity: 90.0 Unit: tab(s) Repeat number: 1 spironolactone 25 mg Tab See Instructions, TAKE 1 TABLET BY MOUTH EVERY DAY, # 90 tab(s), Refills(s) 4, [id number], 147, cm, 08/20/24 11:30:00 EDT, Height/Length Dosing, 58.2, kg, 08/20/24 11:30:00 EDT, Weight Dosing Start Date: 08/28/24 Status: Ordered Quantity: 90.0 Unit: tab(s) Repeat number: 5 Symbicort 80/4.5, Inhalation, BID, Refill(s) 0 Start Date: 09/08/22 Status: Ordered Repeat number: 1 Tums mg, Chewed, Daily, Refills(s) 0 Start Date: 09/08/22 Status: Ordered Repeat number: 1 Tylenol Extra Strength 500 mg, Oral, BID, PRN as needed for pain, Refills(s) 0 Start Date: 09/08/22 Status: Ordered Repeat number: 1 Vitamin D 50,000 intl units (1.25 mg) oral capsule 50,000 International_Unit = 1 cap(s), Oral, 2x/Wk, # 24 cap(s), Refills(s) 3, Pharmacy: [id number], 147, cm, 08/29/24 14:41:00 EDT, Height/Length Dosing, 57.9, kg, 08/29/24 14:41:00 EDT, Weight Dosing Start Date: 08/29/24 Status: Ordered Quantity: 24.0 Unit: cap(s) Repeat number: 4 Indications: Vitamin D deficiency, unspecified; Encounter for other preprocedural examination; Problem List Condition Confirmation Course Effective Dates Status Health Status Informant Non-seasonal allergic rhinitis due to pollen Confirmed Active Asthma Confirmed Active Cervical spondylosis Confirmed Active Foot deformity Confirmed Active Diverticular disease Confirmed Active Primary hypertension Confirmed Active Foot drop Confirmed Active Murmur 1 Confirmed Active Hypercholesterolemia Confirmed Active Hypothyroidism Confirmed Active Left atrial enlargement Confirmed Active Left bundle branch block Confirmed Active Lumbar spondylosis Confirmed Active Osteoarthritis of hip Confirmed Active Osteopenia Confirmed Active BMI 26.0-26.9,adult Confirmed Active Knee pain, left Confirmed Active Shoulder pain, right Confirmed Active Pre-op exam Confirmed Active Post-poliomyelitis muscular atrophy Confirmed Active Restless legs syndrome Confirmed Active Right bundle branch block Confirmed Resolved Right upper quadrant pain Confirmed Active Left sciatic nerve pain Confirmed Active 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 Patient Care team information Care Team Personnel Name: Marlee Martinez Position: [facility] - Primary [facility] - [place] Member Role: Primary Care Physician Address: [address] [place] [address]- Telecom: Care Team Related Persons Name: PENELOPE WALDRON Name: ELIER PALACIOS Insurance Providers Guarantor name: BOB Garcia [place] [employer] Plan Information #: 1 Payer: NA Payer Identifier: [id number] Member Number: [id number] Group Number: [id number] Subscriber Identifier: [id number] Relationship to Subscriber: Self Coverage Type: MEDICARE Coverage Verification Date: NA Telecom: NA Address: NA
--- OUTSIDE RECORDS SUMMARY | 2024-09-26 23:59 | XMS_ITS | Continuity of Care Document ---
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 Name Role Phone Marlee Malcolm Primary Care Physician Encounter _[facility] [id number] Date(s): 09/26/24 - 09/26/24 [facility] [address] [place], [place] [address] Discharge Disposition: Home (Routine DC) Attending Physician: Marlee Martinez Admitting Physician: Marlee Martinez Encounter Type: Lab Drop off Allergies, Adverse Reactions, Alerts Substance Criticality Severity Reaction Reaction Severity Status sulfa drugs Unknown Active Augmentin Unknown Active Diflucan Unknown Active traMADol Unknown Active Assessment and Plan Future Appointments Appointment Date:02/17/2025 01:40:00 PM Scheduled Provider:Marlee Martinez Location:[facility] [place] Appointment Type: Open Appointment Date:09/09/2025 11:00:00 AM Scheduled Provider: Location:[facility] [place] Appointment Type:FM Medicare Wellness Subsequent Future Scheduled Tests Radiology* [...] vaccine, inactivated 03/18/15 Cruz rded SARS-CoV-2 (COVID-19) [id number] 02/10/22 Recorded SARS-CoV-2 (COVID-19) mRNA-1273 vaccine 1 03/17/21 Recorded SARS-CoV-2 (COVID-19) mRNA-1273 vaccine 05/05/20 R ecorded SARS-CoV-2 (COVID-19) mRNA-1273 vaccine 04/07/20 R ecorded pneumococcal 23-valent vaccine 09/11/20 Recorded pneumococcal 13-valent vaccine 09/12/19 Recorded influenza, whole 01/17/05 Recorded 1Result Comment: 2022-07-04: TPV80 Medications Albuterol (Eqv-ProAir HFA) 90 mcg/inh inhalation aerosol See Instructions, 8.5 EA, Refill(s) 0, TAKE 2 PUFFS EVERY 4 HOURS NEEDED, [id number], 148, cm, 07/19/23 10:14:00 EDT, Height/Length Dosing, 61.7, kg, 07/19/23 10:14:00 EDT, Weight Dosing Start Date: 08/15/23 Status: Ordered Quantity: 8.5 Unit: EA Repeat number: 1 aspirin 81 mg, Oral, Daily, Refills(s) 0 Start Date: 09/08/22 Status: Ordered Repeat number: 1 candesartan 4 mg Tab See Instructions, TAKE 1 TABLET BY MOUTH EVERY DAY, # 90 tab(s), Refills(s) 4, Pharmacy: [facility]/pharmacy #[id number], 147, cm, 08/29/24 14:41:00 EDT, Height/Length Dosing, 57.9, kg, 08/29/24 14:41:00 EDT, Weight Dosing Start Date: 09/02/24 Status: Ordered Quantity: 90.0 Unit: tab(s) Repeat number: 5 celecoxib 200 mg Cap See Instructions, TAKE 1 CAPSULE BY MOUTH TWICE A DAY NEEDED FOR PAIN, # 180 cap(s), Refills(s) 1, Pharmacy: [facility]/pharmacy #[id number], 147, cm, 09/09/24 11:11:00 EDT, Height/Length Dosing, 58.1, kg, 09/09/24 11:11:00 EDT, Weight Dosing Start Date: 09/18/24 Status: Ordered Quantity: 180.0 Unit: cap(s) Repeat number: 2 digoxin 125 mcg (0.125 mg) Tab See Instructions, TAKE 1 TABLET BY MOUTH EVERY DAY, # 90 tab(s), Refills(s) 3, Pharmacy: [facility] [id number], 147, cm, 02/13/24 10:53:00 EST, Height/Length Dosing, 59.9, kg, 02/13/24 10:53:00 EST, WeightDosing Start Date: 04/01/24 Status: Ordered Quantity: 90.0 Unit: tab(s) Repeat number: 1 levothyroxine 50 mcg (0.05 mg) Tab See Instructions, TAKE 1 TABLET BY MOUTH EVERY DAY, # 90 tab(s), Refills(s) 1, [id number] 147, cm, 05/20/24 10:52:00 EDT, Height/Length Dosing, 58.5, kg, 05/20/24 10:52:00 EDT, Weight Dosing Start Date: 05/20/24 Status: Ordered Quantity: 90.0 Unit: tab(s) Repeat number: 2 meclizine 25 mg Tab 25 mg = 1 tab(s), Oral, q8hr, as needed for dizziness, # 30 tab(s), Refills(s) 0, [id number], 147.8, cm, 07/26/22 15:28:00 EDT, Height/Length Dosing, 63.6, kg, 07/26/22 15:28:00 EDT, Weight Dosing Start Date: 08/25/22 Status: Ordered Quantity: 30.0 Unit: tab(s) Repeat number: 1 methylPREDNISolone 4 mg tab dosepak = 1 packet(s), Oral, Once, as directed on package labeling, # 21 tab(s), Refills(s) 0, [id number], 147, cm, 09/09/24 11:11:00 EDT, Height/Length Dosing, 58.1, kg, 09/09/24 11:11:00 EDT, Weight Dosing Start Date: 09/18/24 Status: Ordered Quantity: 21.0 Unit: tab(s) Repeat number: 1 metoprolol succinate 25 mg ER Tab 25 mg = 1 tab(s), Oral, Bedtime, X 90 day(s), # 90 tab(s), Refills(s) 3, [id number], 147, cm, 02/13/24 10:53:00 EST, Height/Length Dosing, 59.9, kg, 02/13/24 10:53:00 EST, Weight Dosing Start Date: 04/03/24 Stop Date: 03/29/25 Status: Ordered Quantity: 90.0 Unit: tab(s) Repeat number: 4 montelukast 10 mg Tab See Instructions, TAKE 1 TABLET BY MOUTH EVERY DAY, # 90 tab(s), Refills(s) 3, Pharmacy: [facility] [id number], 147, cm, 04/08/24 10:58:00 EST, Height/Length Dosing, 59.7, kg, 04/08/24 10:58:00 EST, WeightDosing Start Date: 04/15/24 Status: Ordered Quantity: 90.0 Unit: tab(s) Repeat number: 1 spironolactone 25 mg Tab See Instructions, TAKE 1 TABLET BY MOUTH EVERY DAY, # 90 tab(s), Refills(s) 4, [id number], 147, cm, 08/20/24 11:30:00 [...] 2x/Wk, # 24 cap(s), Refills(s) 3, [id number], 147, cm, 08/29/24 14:41:00 [...] Completed Shoulder replacement 1 Co mpleted 1r2019 Results Laboratory List Name Date Lipid Panel 09/26/24 Most recent to oldest [Reference Range]: 1 Chol [120-200 mg/dL] 112 mg/dL *LOW* (09/26/24 9:28 AM) HDL 40 mg/dL 1 *NA* (09/26/24 9:28 AM) Trig [<=149 mg/dL] 163 mg/dL *HI* (09/26/24 9:28 AM) LDL Direct [<=129 mg/dL] 58 mg/dL (09/26/24 9:28 AM) VLDL [7-40 mg/dL] 33 mg/dL (09/26/24 9:28 AM) 1Result Comment: '>= 60 LOW RISK' '<= 40 HIGH RISK' Social History Social History Type Response Smoking Status Never (less than 100 in lifetime);Never; Concerns about tobacco use in household: No; Smoking Cessation Yes 1 entered on: 09/09/24 Sex Female Sex Representation Female (finding) 1denies use. Patient Care team information Care Team Personnel Name: Marlee Martinez Position: FT Ambulatory - Primary Care - [place] Member Role: Primary Care Physician Address: [address] [place] [address]- Telecom: Care Team Related Persons Name: PENELOPE WALDRON Name: ELIER PALACIOS Insurance Providers Guarantor name: BOB S [facility] Information #: 1 Payer: NA Payer Identifier: [id number] Member Number: [id number] Group Number: [id number] Subscriber Identifier: [id number] Relationship to Subscriber: Self Coverage Type: MEDICARE Coverage Verification Date: NA Telecom: NA Address: NA
--- OUTSIDE RECORDS SUMMARY | 2024-09-26 23:59 | XMS_ITS | Continuity of Care Document ---
Author Organization [facility] Address [address] [place] [address] Care Team Providers Care Senior Budget Analyst Name Role Phone Marlee Malcolm Primary Care Physician [phone] Encounter [facility] [id number] Date(s): 09/26/24 - 09/26/24 [facility] [address] [place] [address]- Discharge Disposition: Home (Routine DC) Attending Physician: Marlee Martinez Encounter Type: Clinic Allergies, Adverse Reactions, Alerts Substance Criticality Severity Reaction Reaction Severity Status sulfa drugs Unknown Active Augmentin Unknown Active Diflucan Unknown Active traMADol Unknown Active Assessment and Plan Future Appointments Appointment Date:02/17/2025 01:40:00 PM Scheduled Provider:Marlee Martinez Location:[facility] Appointment Type: Open Appointment Date:09/09/2025 11:00:00 AM Scheduled Provider: Location:[facility] Appointment Type: Medicare Wellness Subsequent Future [...] vaccine, inactivated 03/18/15 Cruz rded SARS-CoV-2 (COVID-19) [id number] 02/10/22 Recorded SARS-CoV-2 (COVID-19) mRNA-1273 vaccine 1 03/17/21 Recorded SARS-CoV-2 (COVID-19) mRNA-1273 vaccine 05/05/20 R ecorded SARS-CoV-2 (COVID-19) mRNA-1273 vaccine 04/07/20 R ecorded pneumococcal 23-valent vaccine 09/11/20 Recorded pneumococcal 13-valent vaccine 09/12/19 Recorded influenza, whole 01/17/05 Recorded 1Result Comment: 2022-07-04: TPV80 Medications Albuterol (Eqv-ProAir HFA) 90 mcg/inh inhalation aerosol See Instructions, 8.5 EA, Refill(s) 0, TAKE 2 PUFFS EVERY 4 HOURS NEEDED, [facility] STORE [address]32, 148, cm, 07/19/23 10:14:00 EDT, Height/Length Dosing, 61.7, kg, 07/19/23 10:14:00 EDT, Weight Dosing Start Date: 08/15/23 Status: Ordered Quantity: 8.5 Unit: EA Repeat number: 1 aspirin 81 mg, Oral, Daily, Refills(s) 0 Start Date: 09/08/22 Status: Ordered Repeat number: 1 candesartan 4 mg Tab See Instructions, TAKE 1 TABLET BY MOUTH EVERY DAY, # 90 tab(s), Refills(s) 4, Pharmacy: [facility]/pharmacy #[id number], 147, cm, 08/29/24 14:41:00 EDT, Height/Length Dosing, 57.9, kg, 08/29/24 14:41:00 EDT, Weight Dosing Start Date: 09/02/24 Status: Ordered Quantity: 90.0 Unit: tab(s) Repeat number: 5 celecoxib 200 mg Cap See Instructions, TAKE 1 CAPSULE BY MOUTH TWICE A DAY NEEDED FOR PAIN, # 180 cap(s), Refills(s) 1, Pharmacy: [facility]/pharmacy #[id number], 147, cm, 09/09/24 11:11:00 EDT, Height/Length Dosing, 58.1, kg, 09/09/24 11:11:00 EDT, Weight Dosing Start Date: 09/18/24 Status: Ordered Quantity: 180.0 Unit: cap(s) Repeat number: 2 digoxin 125 mcg (0.125 mg) Tab See Instructions, TAKE 1 TABLET BY MOUTH EVERY DAY, # 90 tab(s), Refills(s) 3, Pharmacy: [facility] [id number], 147, cm, 02/13/24 10:53:00 EST, Height/Length Dosing, 59.9, kg, 02/13/24 10:53:00 EST, WeightDosing Start Date: 04/01/24 Status: Ordered Quantity: 90.0 Unit: tab(s) Repeat number: 1 levothyroxine 50 mcg (0.05 mg) Tab See Instructions, TAKE 1 TABLET BY MOUTH EVERY DAY, # 90 tab(s), Refills(s) 1, [id number], 147, cm, 05/20/24 10:52:00 EDT, Height/Length Dosing, 58.5, kg, 05/20/24 10:52:00 EDT, Weight Dosing Start Date: 05/20/24 Status: Ordered Quantity: 90.0 Unit: tab(s) Repeat number: 2 meclizine 25 mg Tab 25 mg = 1 tab(s), Oral, q8hr, as needed for dizziness, # 30 tab(s), Refills(s) 0, [id number], 147.8, cm, 07/26/22 15:28:00 EDT, Height/Length Dosing, 63.6, kg, 07/26/22 15:28:00 EDT, Weight Dosing Start Date: 08/25/22 Status: Ordered Quantity: 30.0 Unit: tab(s) Repeat number: 1 methylPREDNISolone 4 mg tab dosepak = 1 packet(s), Oral, Once, as directed on package labeling, # 21 tab(s), Refills(s) 0, [id number], 147, cm, 09/09/24 11:11:00 EDT, Height/Length Dosing, 58.1, kg, 09/09/24 11:11:00 EDT, Weight Dosing Start Date: 09/18/24 Status: Ordered Quantity: 21.0 Unit: tab(s) Repeat number: 1 metoprolol succinate 25 mg ER Tab 25 mg = 1 tab(s), Oral, Bedtime, X 90 day(s), # 90 tab(s), Refills(s) 3, [id number], 147, cm, 02/13/24 10:53:00 EST, Height/Length Dosing, 59.9, kg, 02/13/24 10:53:00 EST, Weight Dosing Start Date: 04/03/24 Stop Date: 03/29/25 Status: Ordered Quantity: 90.0 Unit: tab(s) Repeat number: 4 montelukast 10 mg Tab See Instructions, TAKE 1 TABLET BY MOUTH EVERY DAY, # 90 tab(s), Refills(s) 3, Pharmacy: [facility] [address], 147, cm, 04/08/24 10:58:00 EST, Height/Length Dosing, 59.7, kg, 04/08/24 10:58:00 EST, WeightDosing Start Date: 04/15/24 Status: Ordered Quantity: 90.0 Unit: tab(s) Repeat number: 1 spironolactone 25 mg Tab See Instructions, TAKE 1 TABLET BY MOUTH EVERY DAY, # 90 tab(s), Refills(s) 4, [id number], 147, cm, 08/20/24 11:30:00 EDT, Height/Length [...] Cholecystectomy Completed Shoulder replacement 1 Co mpleted 1right 2019 Social History Social History Type Response Smoking Status Never (less than 100 in lifetime);Never; Concerns about tobacco use in household: No; Smoking Cessation Yes 1 entered on: 09/09/24 Sex Female Sex Representation Female (finding) 1denies use. Patient Care team information Care Team Personnel Name: Marlee Martinez Position: FT Ambulatory - Primary Care - [place] Member Role: Primary Care Physician Address: [address] [place] [address]- Telecom: Care Team Related Persons Name: PENELOPE WALDRON Name: ELIER PALACIOS Insurance Providers Guarantor name: BOB Garcia [employer] Plan Information #: 1 Payer: NA Payer Identifier: [id number] Member Number: [id number] Group Number: [id number] Subscriber Identifier: [id number] Relationship to Subscriber: Self Coverage Type: MEDICARE Coverage Verification Date: 24 Telecom: NA Address: NA
--- OUTSIDE RECORDS SUMMARY | 2024-10-01 23:59 | XMS_ITS | Continuity of Care Document ---
Author Organization [facility] Address [address] [place] [address] Care Team Providers Care Cocktail Server Name Role Phone Marlee Malcolm Primary Care Physician Encounter FT_[facility] [id number] Date(s): 10/01/24 - 10/01/24 [facility] [address] [place] [address]- Encounter Diagnosis Rash(Discharge Diagnosis) - 10/01/24 Discharge Disposition: Home (Routine DC) Attending Physician: LEA WALLACE CNP Encounter Type: Clinic Allergies, Adverse Reactions, Alerts Substance Criticality Severity Reaction Reaction Severity Status sulfa drugs Unknown Active Augmentin Unknown Active Diflucan Unknown Active traMADol Unknown Active Assessment and Plan Future Appointments Appointment Date:10/02/2024 09:00:00 AM Scheduled Provider:LEA WALLACE CNP Location:[facility] Appointment Type: Open Appointment Date:02/17/2025 01:40:00 PM Scheduled Provider:Marlee Martinez Location:[facility] Appointment Type: Open Appointment Date:09/09/2025 11:00:00 AM Scheduled Provider: Location:[facility] Appointment Type:FM Medicare Wellness Subsequent Future Scheduled [...] vaccine, inactivated 03/18/15 Cruz rded SARS-CoV-2 (COVID-19) [id number] 02/10/22 Recorded SARS-CoV-2 (COVID-19) mRNA-1273 vaccine 1 03/17/21 Recorded SARS-CoV-2 (COVID-19) mRNA-1273 vaccine 05/05/20 R ecorded SARS-CoV-2 (COVID-19) mRNA-1273 vaccine 04/07/20 R ecorded pneumococcal 23-valent vaccine 09/11/20 Recorded pneumococcal 13-valent vaccine 09/12/19 Recorded influenza, whole 01/17/05 Recorded 1Result Comment: 2022-07-04: TPV80 Medications Albuterol (Eqv-ProAir HFA) 90 mcg/inh inhalation aerosol See Instructions, 8.5 EA, Refill(s) 0, TAKE 2 PUFFS EVERY 4 HOURS NEEDED, [facility] STORE 58081, 148, cm, 07/19/23 10:14:00 EDT, Height/Length Dosing, 61.7, kg, 07/19/23 10:14:00 EDT, Weight Dosing Start Date: 08/15/23 Status: Ordered Quantity: 8.5 Unit: EA Repeat number: 1 aspirin 81 mg, Oral, Daily, Refills(s) 0 Start Date: 09/08/22 Status: Ordered Repeat number: 1 candesartan 4 mg Tab See Instructions, TAKE 1 TABLET BY MOUTH EVERY DAY, # 90 tab(s), Refills(s) 4, Pharmacy: [facility]/pharmacy #[id number], 147, cm, 08/29/24 14:41:00 EDT, Height/Length Dosing, 57.9, kg, 08/29/24 14:41:00 EDT, Weight Dosing Start Date: 09/02/24 Status: Ordered Quantity: 90.0 Unit: tab(s) Repeat number: 5 celecoxib 200 mg Cap See Instructions, TAKE 1 CAPSULE BY MOUTH TWICE A DAY NEEDED FOR PAIN, # 180 cap(s), Refills(s) 1, [id number], 147, cm, 09/09/24 11:11:00 EDT, Height/Length Dosing, 58.1, kg, 09/09/24 11:11:00 EDT, Weight Dosing Start Date: 09/18/24 Status: Ordered Quantity: 180.0 Unit: cap(s) Repeat number: 2 digoxin 125 mcg (0.125 mg) Tab See Instructions, TAKE 1 TABLET BY MOUTH EVERY DAY, # 90 tab(s), Refills(s) 3, Pharmacy: [facility] [id number], 147, cm, 02/13/24 10:53:00 EST, Height/Length Dosing, 59.9, kg, 02/13/24 10:53:00 EST, WeightDosing Start Date: 04/01/24 Status: Ordered Quantity: 90.0 Unit: tab(s) Repeat number: 1 levothyroxine 50 mcg (0.05 mg) Tab See Instructions, TAKE 1 TABLET BY MOUTH EVERY DAY, # 90 tab(s), Refills(s) 1, [id number], 147, cm, 05/20/24 10:52:00 EDT, Height/Length Dosing, 58.5, kg, 05/20/24 10:52:00 EDT, Weight Dosing Start Date: 05/20/24 Status: Ordered Quantity: 90.0 Unit: tab(s) Repeat number: 2 meclizine 25 mg Tab 25 mg = 1 tab(s), Oral, q8hr, as needed for dizziness, # 30 tab(s), Refills(s) 0, [id number], 147.8, cm, 07/26/22 15:28:00 EDT, Height/Length Dosing, 63.6, kg, 07/26/22 15:28:00 EDT, Weight Dosing Start Date: 08/25/22 Status: Ordered Quantity: 30.0 Unit: tab(s) Repeat number: 1 methylPREDNISolone 4 mg tab dosepak = 1 packet(s), Oral, Once, as directed on package labeling, # 21 tab(s), Refills(s) 0, [id number], 147, cm, 09/09/24 11:11:00 EDT, Height/Length Dosing, 58.1, kg, 09/09/24 11:11:00 EDT, Weight Dosing Start Date: 09/18/24 Status: Ordered Quantity: 21.0 Unit: tab(s) Repeat number: 1 metoprolol succinate 25 mg ER Tab 25 mg = 1 tab(s), Oral, Bedtime, X 90 day(s), # 90 tab(s), Refills(s) 3, [id number], 147, cm, 02/13/24 10:53:00 EST, Height/Length Dosing, 59.9, kg, 02/13/24 10:53:00 EST, Weight Dosing Start Date: 04/03/24 Stop Date: 03/29/25 Status: Ordered Quantity: 90.0 Unit: tab(s) Repeat number: 4 montelukast 10 mg Tab See Instructions, TAKE 1 TABLET BY MOUTH EVERY DAY, # 90 tab(s), Refills(s) 3, Pharmacy: [facility] [id number], 147, cm, 04/08/24 10:58:00 EST, Height/Length Dosing, 59.7, kg, 04/08/24 10:58:00 EST, WeightDosing Start Date: 04/15/24 Status: Ordered Quantity: 90.0 Unit: tab(s) Repeat number: 1 spironolactone 25 mg Tab See Instructions, TAKE 1 TABLET BY MOUTH EVERY DAY, # 90 tab(s), Refills(s) 4, [id number], 147, cm, 08/20/24 11:30:00 EDT, Height/Length [...] 2x/Wk, # 24 cap(s), Refills(s) 3, Pharmacy: [facility]/pharmacy #[id number], 147, cm, 08/29/24 14:41:00 EDT, [...] Completed Shoulder replacement 1 Co mpleted 1right 2020 Social History Social History Type Response Smoking Status Never (less than 100 in lifetime);Never; Concerns about tobacco use in household: No; Smoking Cessation Yes 1 entered on: 09/09/24 Sex Female Sex Representation Female (finding) 1denies use. Patient Care team information Care Team Personnel Name: Marlee Martinez Position: FT Ambulatory - Primary Care - [place] Member Role: Primary Care Physician Address: [address] [place] [phone]- Telecom: Care Team Related Persons Name: PENELOPE WALDRON Name: ELIER PALACIOS Insurance Providers Guarantor name: BOB Garcia [facility] Information #: 1 Payer: NA Payer Identifier: [id number] Member Number: [id number] Group Number: [id number] Subscriber Identifier: [id number] Relationship to Subscriber: Self Coverage Type: MEDICARE Coverage Verification Date: 24 Telecom: DASIA Address: NA
--- OUTSIDE RECORDS SUMMARY | 2024-10-02 10:57 | XMS_ITS | Clinical Summary ---
Author Organization [facility] Address [address] [place] [address] Care Team Providers Care Special Services Supervisor Name Role Phone Yaniv Singh MD Primary Care Provider [phone] Allergies Active Allergy Reactions Criticality Noted Date Comments Amoxicillin-Pot Clavulanate Unknown 08/03/19 23 Fluconazole Unknown 08/02/2022 Other Reaction(s): Unknown Sulfa (Sulfonamide Antibiotics) Unknown 01/06/2021 Tramadol Unknown 08/02/2022 Other Reaction(s): Unknown Medications aspirin 81 mg EC tablet 1 (one) time each day at the same time. Active budesonide-form oteroL (Symbicort) 80-4.5 mcg/actuation inhaler Inhale 1 puff twice a day by inhalation route for 90 days. 1 Active digoxin (Lanoxin) 125 MCG tablet Take 1 tablet every day by oral route for 90 days. 3 Active montelukast (Singulair) 10 mg tablet Take 10 mg by mouth at bedtime. 3 Active spironolactone (Aldactone) 25 mg tablet Take 25 mg by mouth in the morning. 3 Active candesartan (Atacand) 4 mg tablet Take 1 tablet every day by oral route for 90 days. 1 Active Synthroid 50 mcg tablet Take 50 mcg by mouth before breakfast. 3 Active celecoxib (CeleBREX) 200 mg capsule 200 mg two times daily. 3 Active metoprolol succinate XL (Toprol-XL) 25 mg 24 hr tablet Take 25 mg by mouth once daily as directed. 9 Active Active Problems Problem Noted Date Diagnosed Date Acute URI 11/30/2023 Bereavement 11/30/2023 Cerumen impaction 11/30/2023 Cough 11/30/2023 Dysphagia 11/30/2023 Knee pain, left 11/30/2023 Left sciatic nerve pain 11/30/2023 Nasal congestion 11/30/2023 Age-related osteoporosis wit hout current pathological fracture 10/20/2022 10/20/2022 Allergic rhinitis 10/20/2022 10/20/2022 Diverticular disease 10/20/2022 10/20/2022 Dyspnea 10/20/2022 10/20/2022 Heart murmur 10/20/2022 10/20/2022 Overview (10/20/2022): bicuspid aortic valve Hypercholesterolemia 10/20/2022 10/20/2022 Hypertension 10/20/2022 10/20/2022 Hypothyroidism 10/20/2022 10/20/2022 Labyrinthitis 10/20/2022 10/20/2022 Left bundle branch block 10/20/2022 023 Non-seasonal allergic rhinitis due to pollen 10/20/2022 Osteoarthritis of hip 10/20/2022 10/20/2022 Osteoporosis 10/20/2022 10/20/2022 Over weight 10/20/2022 10/20/2022 Restless legs syndrome 10/20/2022 Right upper quadrant pain 10/20/20222022 Steatosis of liver 10/20/2022 10/20/2022 Lumbar spondylosis 10/20/2022 10/20/2022 Advanced atrophic nonexudati ve age-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 involvement 09/19/2022 0 10/20/2022 Blepharitis of upper and lower eyelids of both e yes 09/19/2022 10/20/2022 Dry eyes 09/19/2022 10/20/2022 Squamous cell carcinoma in situ 09/19/2022 10/20/2022 Foot drop 11/06/2020 10/20/2022 Post poliomyelitis syndrome 11/06/202010/04 Shoulder pain 09/04/2019 10/20/2022 Asthma 01/09/2019 10/20/2022 Osteoarthritis of glenohumeral joint 07/05/2018 10/20/2022 Encounters Date Type Department Care Team Description 07/24/2024 10:00 AM EDT Office Visit [facility] [place] [address] Crissy Schuler MD Poliomyelitis (Primary Dx); Chronic right hip pain from Last 3 Months Social History Tobacco Use Types Packs/Day Years Used Date Smoking Tobacco: Never Passive Smoke Exposure: Never Smokeless Tobacco: Never Alcohol Use Standard Drinks/Week Comments Not Currently 0 (1 standard drink = 0.6 oz pur e alcohol) Humiliation, Afraid, Rape, and Kick questionnair e Answer Date Recorded Within the last year, have y ou been afraid of your partner or ex-partner? No 07/24/2024 Emotionally Abused Not on file 07/24/2024 Physically Abused Not on file 07/24/2024 Sexually Abused Not on file 07/24/2024 Overall Financial Resource Strain (CARDIA) Answe r Date Recorded How hard is it for you to pa y for the very basics like food, housing, medical care, and heating? Not hard at all 04/10/2023 PHQ-2 Answer Date Recorded Patient Health Questionnaire-2 Score 1 07/24/2024 Transportation Answer Date Recorded In the past 12 months, has l ack of transportation kept you from medical appointments or from getting medications? No 04/10/2023 Lack of Transportation (Non-Medical) Not on file 04/10/2023 Housing Stability Vital Sign Answer Garett e Recorded Unable to Pay for Housing in the Last Year Not o n file 04/10/2023 Number of Places Lived in the Last Year Not on f ile 04/10/2023 In the last 12 months, was t here a time when you did not have a steady place to sleep or slept in a detention (including now)? No 04/10/2023 Hunger Vital Sign Answer Date Recorded Within the past 12 months, y ou worried that your food would run out before you got the money to buy more. Never true 04/10/19 24 Ran Out of Food in the Last Year Not on file 04/10/2023 Comments Unknown Sex and Gender Information Value Date Recorded Sex Assigned at Not on file Legal Sex Female 11:37 PM EDT Gender Identity Not on file Sexual Orientation Not on file Last Filed Vital Signs Vital Sign Reading Time Taken Comments Blood Pressure 122/78 07/24/2024 9:45 AM EDT Pulse 97 07/24/2024 9:45 AM EDT Temperature - - Respiratory Rate 12 10/20/2022 1:05 PM EDT Oxygen Saturation 97% 11/30/2023 2:56 PM EDT Inhaled Oxygen Concentration - - Weight 56.7 kg (125 lb) 07/24/2024 9:45 AM EDT Height 149.9 cm (4' 11 ) 07/24/2024 9:45 AM EDT Body Mass Index 25.25 07/24/2024 9:45 AM EDT Plan of Treatment Upcoming Encounters Date Type Department Care Team (Late st Contact Info) Description 10/21/2024 1:45 PM EDT Follow-Up [facility] [address] [place] [address] [place] [phone] Marla Mutlani MD [address] [place] [address] Health Maintenance Due Date Last Done Comments Medicare Annual Wellness (AWV) 1940 Adult Tetanus 1960 Zoster Vaccines (1 of 2) 1988 COVID-19 Vaccine ( season) 2023 02/10/2022, 03/17/2021, 05/05/2020, Additional history exists Influenza Vaccine (#1) 2024 , 12/14/2022, 12/27/2021, Additional history exists Depression Screening 07/24/2025 07/24/2024 Fall Risk Screening 07/24/2025 07/24/2024 Pneumococcal Vaccine: 50+ Years Completed 09/11/2020, 09/12/2019 HIB Vaccines Aged Out No longer eligi ble based on patient's age to complete this topic HPV Vaccines Aged Out No longer eligi ble based on patient's age to complete this topic IPV Vaccines Aged Out No longer eligi ble based on patient's age to complete this topic Meningococcal B Vaccine Aged Out No l onger eligible based on patient's age to complete this topic Meningococcal Vaccine Aged Out No luis sam eligible based on patient's age to complete this topic Rotavirus Vaccines Aged Out No longer eligible based on patient's age to complete this topic Insurance [employer] MEDICARE ADVANTAGE Care Teams Special Services Supervisor Relationship Specialty Start Date End Date Yaniv Singh MD [address] [place] [address] PCP - General Family Medicine 10/20/22
--- OUTSIDE RECORDS SUMMARY | 2024-10-02 10:57 | XMS_ITS | Encounter Summary ---
Author Organization [facility] Address [address] [place] [address] Care Team Providers Care Bombsight Specialist Name Role Phone Shruthi Monterroso MD Primary Care Provider [phone] Source Comments In the event this information is protected by the Federal Confidentiality of Alcohol and Drug AbusePatient Records regulations: The Federal rules restrict any use of the information to criminally investigate or prosecute any alcohol or drug abuse patient.[facility] Encounter Details Date Type Department Care Team (Late st Contact Info) Description 08/05/2022 Lab Requisition [facility] [address] [place] [address] Josie Bauman MD [address] [place], [place] [id number] Person encountering health services to consult on [...] EDT) Case Report Surgical Pathology Report Case: [id number] Authorizing Provider: Josie Bauman MD Collected: 08/05/2022 09:15 AM Ordering Location: [facility] Main Received: 08/05/2022 09:14 AM Pathologist: Kymberly Srivastava MD Specimen: SLIDE(S)/BLOCK(S), 7 SLIDES AND 1 BLOCK ([id number]) 08/08/2022 12:02 PM EDT [facility] FINAL DIAGNOSIS A. Skin, left clavicle, excision ([id number], 07/26/2022): -Squamous cell carcinoma in situ, see comment. ZOFIA/ARIADNA 08/07/2022 08/08/2022 12:02 PM EDT [facility] at 1202 EDT Diagnosis Comment Many [...] Please call the Dermatopathology Consultation Service at [phone] with questions or if additional follow-up information becomes available regarding this patient. This case was reviewed in conjunction with the Dermatopathology Fellow, Dr. Chatman. 08/08/2022 12:02 PM EDT [facility] Clinical History CONSULT REQUESTED 08/08/2022 12:02 PM EDT [facility] Performing Lab Diagnostic interpretation performed at [facility], [address] [place], [place] [id number] CLIA# [id number] Flight Coordinator: Tera Dixon M.D. 08/08/2022 12:02 PM EDT [facility] Blocks or Slides PARAFFIN EMBEDDED TISSUE BLOCK SPECIMEN / Unknown 08/05/2022 9:15 AM EDT 08/05/2022 9:14 AM EDT us Josie Bauman MD SURGICAL PATHOLOGY Final Result [facility] [address] [facility] [address] [place] [address], documented in this encounter Visit Diagnoses Diagnosis Person encountering health services to consult on behalf of another person Other person consulting on behalf of another person documented in this encounter Care Teams Bombsight Specialist Relationship Specialty Start Date End Date Shruthi Monterroso MD [address] [place] [address] PCP - General Family Medicine 01/30/15 documented as of this encounter
--- OUTSIDE RECORDS SUMMARY | 2024-10-02 10:57 | XMS_ITS | Clinical Summary ---
Author Organization [facility] Address [address] [place], [place] [address] Care Team Providers Care Hospice Entrance Attendant Name Role Phone Shruthi Monterroso MD Primary Care Provider [phone] Social History Tobacco Use Types Packs/Day Years Used Date Smoking Tobacco: Never Assessed Comments Unknown Sex and Gender Information Value Date Recorded Sex Assigned at Not on file Legal Sex Female 8:46 AM EST Gender Identity Not on file Sexual Orientation Not on file Plan of Treatment Not on file Insurance AETNA MEDICARE Care Teams Hospice Entrance Attendant Relationship Specialty Start Date End Date Shruthi Monterroso MD [address] [facility] [address] PCP - General Family Medicine 01/30/15
--- OUTSIDE RECORDS SUMMARY | 2024-10-02 10:57 | XMS_ITS | Encounter Summary ---
Author Organization [facility] Address [id number] [address] [place] [address] Care Team Providers Care Area Cleaner Name Role Phone Shruthi Monterroso MD Primary Care Provider [phone] Encounter Details Date Type Department Care Team (Late st Contact Info) Description 01/08/2021 Telephone [facility] [address] [place] [phone] Kayla Miller RMA Social History Tobacco Use Types Packs/Day Years Used Date Smoking Tobacco: Never Smokeless Tobacco: Never Alcohol Use Standard Drinks/Week Comments Never 0 (1 standard drink = 0.6 oz pur e alcohol) Comments Unknown Sex and Gender Information Value Date Recorded Sex Assigned at Not on file Legal Sex Female 1:09 PM EDT Gender Identity Not on file Sexual Orientation Not on file COVID-19 Exposure Response Date Recorded In the last month, have you been in contact with someone who was confirmed or suspected to have Coronavirus / COVID-19? No / Unsure 01/06/2021 1:51 PM EDT documented as of this encounter Miscellaneous Notes * Telephone Encounter - ELLEN Singletary - 01/08/2021 2:09 PM EDT I called and left a message to call our office regarding obtaining a surgical clearance for Una. Dr. Collazo would like to do a laparoscopic cholecystectomy at [facility]. documented in this encounter Plan of Treatment Not on file documented as of this encounter Visit Diagnoses Not on filedocumented in this encounter Care Teams Area Cleaner Relationship Specialty Start Date End Date Shruthi Monterroso MD PCP - General Family Medicine 12/30/20 documented as of this encounter
--- OUTSIDE RECORDS SUMMARY | 2024-10-02 10:58 | XMS_ITS | Clinical Summary ---
Author Organization [email or web address] Address [id number] [address] [place] [address] Care Team Providers Care Precast Molder Name Role Phone Shruthi Monterroso MD Primary Care Provider [phone] Allergies Active Allergy Reactions Criticality Noted Date [...] on file Insurance AETNA MEDICARE Care Teams Precast Molder Relationship Specialty Start Date End Date Shruthi Monterroso MD PCP - General Family Medicine 12/30/20
--- OUTSIDE RECORDS SUMMARY | 2024-10-02 10:58 | XMS_ITS | Clinical Summary ---
Author Organization [facility] Address [address] [place] [address] Care Team Providers Care Level Vial Inspector Name Role Phone Yaniv Singh MD Primary Care Provider [phone] Allergies Active Allergy Reactions Criticality Noted Date [...] montelukast 10 mg tablet 3 Active Multiple Vitamins-Cryptographic Clerk als (PreserVision AREDS) tablet Orally Active prednisoLONE [...] lower eyelids of both e yes 09/19/2022 Family History Medical History Relation Name Comments [...] 10/30/2024 1:15 PM EDT Office Visit [facility] [address] [place] [phone] Shabbir Wills DO [address] [place] [address] Health Maintenance Due Date Last Done Comments Influenza Vaccine (#1) 2024 4, 12/14/2022, 12/27/2021, Additional history exists Pneumococcal Vaccine: 65+ Years Completed 1, 09/12/2019 Insurance [employer] MEDICARE ADVANTAGE Care Teams Level Vial Inspector Relationship Specialty Start Date End Date Yaniv Singh MD [address] [place] [address] PCP - General Family Medicine 11/20/23
--- OUTSIDE RECORDS SUMMARY | 2024-10-02 11:15 | XMS_ITS | CCD ---
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 Name Role Phone AMAURY MONTERROSO Primary Care Unavailable AMAURY MONTERROSO Referring Unavailable KRISTINR, OSAMA Admitting Unavailable KRISTINR OSAMA Attending Unavailable MD Procedure Practitioner Unavailab BERTHA Ahumada Surgeon Unavailable CASEY GARSIA Attending Unavailable CASEY GARSIA Admitting Unavailable MONTERROSO ., DR AMAURY Yanes Primary Care Unavailable CASEY GARSIA Attending Unavailable MONTERROSO ., DR AMAURY Yanes Primary Care Unavailable CASEY GARSIA Admitting Unavailable TAISHA EATON Admitting Unavailable TAISHA EATON Consulting Unavailable TAISHA EATON Attending Unavailable MONTERROSO ., DR AMAURY Yanes Primary Care Unavailable MONTERROSO ., DR AMAURY Yanes Primary Care Unavailable MONTERROSO ., DR AMAURY Yanes Consulting Unavailable MONTERROSO ., DR AMAURY Yanes Attending Unavailable MONTERROSO ., DR AMAURY Yanes Admitting Unavailable MONTERROSO ., DR AMAURY Yanes Primary Care Unavailable MONTERROSO ., DR AMAURY Yanes Consulting Unavailable MONTERROSO ., DR AMAURY Yanes Attending Unavailable MONTERROSO ., DR AMAURY Yanes Admitting Unavailable MONTERROSO ., DR AMAURY Yanes Primary Care Unavailable MONTERROSO ., DR AMAURY Yanes Attending Unavailable MONTERROSO ., DR AMAURY Yanes Admitting Unavailable CASEY GARSIA Attending Unavailable MONTERROSO ., DR AMAURY Yanes Primary Care Unavailable CASEY GARSIA Admitting Unavailable CASEY GARSIA Attending Unavailable MONTERROSO ., DR AMAURY Yanes Primary Care Unavailable CASEY GARSIA Admitting Unavailable Yaniv Singh. Primary Care Physician Asaad, Imad Unavailable Yaniv Singh MD Primary Care Provider [phone] MD Yaniv Singh. Attending Unavailable MD Yaniv Singh. Admitting Unavailable MD Yaniv Singh. Attending Unavailable MD Yaniv Singh. Attending Unavailable MELISSA RODRIGEZ Admitting Unavailable MELISSA RODRIGEZ Attending Unavailable Yaniv Singh MD Primary Care Provider Marija Vega MD Attending Provider [phone] Yaniv Singh MD Primary Care Provider Marija Vega MD Attending Provider Fred Hernandez MD Attending Provider [phone] DOLCERAYOULI R Attending Unavailable DOLCE, ULI R Attending Unavailable ZAHLEROTTONIEL Attending Unavailable ZAHLERJAIMEEOTTONIEL Mely Attending Unavailable ZAHLOTTONIEL MILIAN Attending Unavailable OTTONIEL LOUISE Attending Unavailable OTTONIEL LOUISE Attending Unavailable CRISSY SCHULER Attending Unavailable MELISSA RODRIGEZ Attending Unavailable VADIM RODRIGEZA Patricia Admitting Unavailable MELISSA RODRIGEZ Attending Unavailable Yaniv Singh Attending Unavailable Yun, EMILIANO Cortés Attending Unavailable Yaniv Singh Attending Unavailable Yaniv Singh Attending Unavailable Yaniv Singh Attending Unavailable Yaniv Singh Attending Unavailable Yaniv Singh Attending Unavailable YunEMILIANO chavez Attending Unavailable Yaniv Singh Admitting Unavailable Yaniv Singh Attending Unavailable Yaniv Singh MD Primary Care Provider Fred Hernandez MD Attending Provider [phone] Curtis Morales MD Attending Provider Rosa M Romano APRN Emergency Provider [phone] Yun EXTRACT MIXER-CMarlee Primary Care Provider [phone] Yaniv Singh Attending Unavailable EMILIANO Malcolm Attending Unavailable Yaniv Singh Attending Unavailable EMILIANO Malcolm Attending Unavailable Yaniv Singh Admitting Unavailable Yaniv Singh Attending Unavailable Fred Hernandez II Admitting UnavailFred Adam II Attending UnavailYaniv Ramírez Primary Care Unavailable Fred Hernandez II Admitting UnavailFred Adam II Attending Unavailabl e Yaniv Singh Primary Care Unavailable Curtis Morales Attending Yaniv Hernandez Primary Care Unavailable KoromCurtis prieto Admitting Unavamarion pérez Asaad, Imad Admitting Unavailable Asaad, Imad Attending Unavailable Yaniv Singh Primary Care Unavailable YunMarlee Primary Care Unavailable Saffle, Rosa M N Admitting Unavailable Saffle, Rosa M N Attending Unavailable Yun, Marlee L Attending Unavailable Yun, Marlee L Attending Unavailable Yun, Marlee L Attending Unavailable Yun, Marlee L Attending Unavailable Yun, Marlee L Admitting Unavailable Yaniv Singh. Admitting Unavailable Yaniv Singh. Attending Unavailable Yun, Marlee L Attending Unavailable Yun, Marlee L Attending Unavailable Yun, Marlee L Attending Unavailable Yun, Marlee L Admitting Unavailable Allergies Allergy Classification Reported Allergen(s) Allergy Type Date of Onset Reaction(s) Facility (1 source) Hicks powder; Translations: [hicks powder] Propensity to adverse reactions (disorder) 1 [facility] Repository (1 source) eggplant extract Drug Allergy 1 [facility] (6 sources) Sulfonamides (Antibiotic); Translations: [SULFA (SULFONAMIDE ANTIBIOTICS)] Propensity to adverse reactions (disorder) 0 Nausea [facility] Rep[facility] (1 source) HYDROcodone Drug Allergy 0 [facility] Repository (1 source) Sulfonamides (Antibiotic) Drug allergy (disorder) 3 [facility] Rep[facility] (8 sources) Amoxicillin / Clavulanate; Translations: [amoxicillin-cla vulanate] Drug Allergy Unknown (qualifier value) [facility] (12 sources) Fluconazole; Translations: [fluconazole] Drug Allergy 3 Unknown (qualifier value) [facility] (8 sources) Sulfonamides (Antibiotic); Translations: [sulfa drugs] Drug allergy Unknown (qualifier value) [facility] (20 sources) traMADol; Translations: [tramadol] Drug Allergy 3 Unknown (qualifier value) [facility] (12 sources) Fluconazole Allergy to substance 3 [facility] (12 sources) Sulfonamides (Antibiotic) Drug Allergy 3 Unknown [facility] (13 sources) Amoxicillin-Pot Clavulanate; Translations: [AMOXICILLIN-POT CLAVULANATE] Drug Allergy 3 Unknown [facility] Work Phone: (4 sources) Amoxicillin; Translations: [amoxicillin] Drug Allergy 5 Unknown Reaction [facility] (4 sources) Clavulanate; Translations: [clavulanic acid] Drug Allergy 5 Unknown Reaction [facility] (1 source) Fluconazole Drug Allergy 5 [facility] Repository (1 source) traMADol Drug Allergy 5 [facility] Repository Medications Current Medications Medication Drug Class(es) Dates Sig (Normalized) Sig (Original) acetaminophen 325 mg / HYDROcodone bitartrate 5 mg oral tablet (2 sources) Opioid Agonist Start: 09-05-2024 take 1 tablet by mouth three times daily as needed for pain [id number] 200 actuat albuterol 0.09 mg/actuat metered dose inhaler (16 sources) beta2-Adrenergic Agonist Start: 09-04-2024 take 1 puff(s) by inhalation every four to six hours as needed Start: 09-08-2022 ProAir HFA Inh alation, q6hr Wheezing, Refill(s) 0 Start Date: 09/08/22 Status: Ordered Start: 07-05-2022 take 2 puff(s) by in halation every four hours as needed albuterol HFA (Proventil HFA) 90 mcg/act inhaler 2 puff(s), Inhalation, q4hr, Refill(s) 0, as needed 07/05/2022 Active Albuterol (Eqv-ProAir HFA) 9 0 mcg/inh inhalation aerosol (3 sources) Start: 08-15-2023 Albuterol (Eqv -ProAir HFA) 90 mcg/inh inhalation aerosol See Instructions, 8.5 EA, Refill(s) 0, TAKE 2 PUFFS EVERY 4 HOURS NEEDED, [id number], 148, cm, 07/19/23 10:14:00 EDT, Height/Length Dosing, 61.7, kg, 07/19/23 10:14:00 EDT, Weight Dosing Start Date: 08/15/23 Status: Ordered Quantity: 8.5 Unit: EA Repeat number: 1 Start: 08-15-2023 Albuterol (Eqv -ProAir HFA) 90 mcg/inh inhalation aerosol See Instructions, 8.5 EA, Refill(s) 0, TAKE 2 PUFFS EVERY 4 HOURS NEEDED, [id number], 148, cm, 07/19/23 10:14:00 EDT, Height/Length Dosing, 61.7, kg, 07/19/23 10:14:00 EDT, Weight Dosing Start Date: 08/15/23 Status: Ordered Aspir-81 (2 sources) Aspir-81 Active aspirin 81 mg oral tablet (20 sources) Platelet Aggregation Inhibitor, Nonsteroidal Anti-inflammatory Drug Start: 09-08-2022 take 81 mg by mouth once daily aspirin 81 mg, Oral, Daily, Refills(s) 0 Start Date: 09/08/22 Status: Ordered Repeat number: 1 Start: 07-10-2018 take 1 tablet by mouth once da ortiz aspirin 81 MG EC tablet 1 (one) time each day at the same time. Active Symbicort (20 sources) Corticosteroid, beta2-Adrenergic Agonist Start: 09-08-2022 Symbicort 80/4. 5, Inhalation, BID, Refill(s) 0 Start Date: 09/08/22 Status: Ordered Repeat number: 1 Start: 09-08-2022 Symbicort 80/4 .5, Inhalation, BID, Refill(s) 0 Start Date: 09/08/22 Status: Ordered Start: 06-13-2022 Symbicort 80-4 .5 MCG/ACT inhaler 06/13/2022 Active Start: 07-10-2018 take 1 puff(s) by in halation twice daily take 2 puff(s) by in halation twice daily Symbicort 80-4.5 MCG/ACT 2 puffs Inhalation Twice a day Active Symbicort Active bupivacaine hydrochloride 5 mg/ml injectable solution (12 sources) Amide Local Anesthetic bupivacai ne (Marcaine) 0.5 % injection bupivacaine HCl 0.5 % (5 mg/mL) injection solution via inject Active Calcium Carbonate (20 sources) Start: 09-08-2022 Tums mg, Chewed, Daily, Refills(s) 0 Start Date: 09/08/22 Status: Ordered Repeat number: 1 Start: 09-08-2022 Tums mg, Chewe d, Daily, Refills(s) 0 Start Date: 09/08/22 Status: Ordered Start: 07-10-2018 End: 09-04-2024 take 1 tablet by mouth twice daily Calcium Carbonate (Tums) 200 mg calcium (500 mg) Tablet,Chewable Discontinued 200 MG PO Twice daily July 10, 2018 12:00am September 04, 2024 8:22am calcium carbonat e (Os-Yung) 1250 (500 Ca) MG chewable tablet Chew 200 mg in the morning. Active Tums Active candesartan cilexetil 4 mg oral tablet (20 sources) Angiotensin 2 Receptor Samm Start: 07-10-2018 take 1 tablet by mouth once daily Candesartan Cilexetil-HCTZ (1 source) Candesartan Cilexetil-HCTZ Active celecoxib 200 mg oral capsule (20 sources) Nonsteroidal Anti-inflammatory Drug Start: 07-05-2022 celecoxib (CeleBREX) 200 MG capsule 1 (one) time each day at the same time. 07/05/2022 Active Start: 07-10-2018 take 1 capsule by mouth twice daily Celecoxib Active cephalexin 500 mg oral capsule (12 sources) Cephalosporin Antibacterial Start: 04-07-2022 take 1 capsule by mouth in the morning cephalexin (Keflex) 500 MG capsule Take 500 mg by mouth in the morning and 500 mg before bedtime. 04/07/2022 Active cholecalciferol 1.25 mg oral capsule (3 sources) Vitamin D Start: 09-04-2024 take 1 capsule by mouth two times weekly desonide 0.5 mg/ml topical cream (12 sources) Corticosteroid Start: 07-11-2022 desonide (DesOwen) 0.05 % cream APPLY SMALL AMOUNT 3 TIMES A DAY NEEDED 07/11/2022 Active digoxin 0.125 mg oral tablet (20 sources) Cardiac Glycoside Start: 04-01-2024 take 1 tablet by mouth once daily digoxin 125 mcg (0.125 mg) Tab See Instructions, TAKE 1 TABLET BY MOUTH EVERY DAY, # 90 tab(s), Refills(s) 3, Pharmacy: [id number], 147, cm, 02/13/24 10:53:00 EST, Height/Length Dosing, 59.9, kg, 02/13/24 10:53:00 EST, Weight Dosing Start Date: 04/01/24 Status: Ordered Quantity: 90.0 Unit: tab(s) Repeat number: 1 Start: 03-21-2023 End: 03-15-2024 take 1 tablet by mouth once daily digoxin 125 mcg (0.125 mg) Tab 125 mcg = 1 tab(s), Oral, Daily, X 90 day(s), # 90 tab(s), Refills(s) 3, Pharmacy: [facility]/pharmacy #[id number], 148, cm, 03/21/23 8:51:00 EST, Height/Length Dosing, 64, kg, 03/21/23 8:51:00 EST, Weight Dosing Start Date: 03/21/23 Stop Date: 03/15/24 Status: Ordered Start: 07-05-2022 take 1 tablet by bridget th once daily digoxin 125 mcg (0.125 mg) Tab 125 mcg = 1 tab(s), Oral, Daily, Refills(s) 0 Start Date: 07/05/22 Status: Ordered Start: 07-10-2018 take 1 tablet by bridget th once daily Digoxin Active famotidine 40 mg oral tablet (12 sources) Histamine-2 Receptor Antagonist Start: 07-05-2022 famotidine (Pepcid) 40 MG tablet Take 40 mg by mouth. 07/05/2022 Active ICaps AREDS 2 (3 sources) Start: 07-05-2022 ICaps AREDS 2 See Instructions, Refill(s) 0, take 2 orally daily Start Date: 07/05/22 Status: Ordered levothyroxine sodium 0.05 mg oral tablet (20 sources) l-Thyroxine Start: 05-20-2024 take 1 tablet by mouth once daily levothyroxine 50 mcg (0.05 mg) Tab See Instructions, TAKE 1 TABLET BY MOUTH EVERY DAY, # 90 tab(s), Refills(s) 1, Pharmacy: [facility]/pharmacy #[id number], 147, cm, 05/20/24 10:52:00 EDT, Height/Length Dosing, 58.5, kg, 05/20/24 10:52:00 EDT, Weight Dosing Start Date: 05/20/24 Status: Ordered Quantity: 90.0 Unit: tab(s) Repeat number: 2 Start: 10-18-2023 take 1 tablet by bridget th once daily levothyroxine 50 mcg (0.05 mg) Tab See Instructions, TAKE 1 TABLET BY MOUTH EVERY DAY, # 90 tab(s), Refills(s) 1, Pharmacy: [facility] [id number], 147, cm, 09/19/23 10:15:00 EDT, Height/Length Dosing, 61.8, kg, 09/19/23 10:15:00 EDT, Weight Dosing Start Date: 10/18/23 Status: Ordered Start: 03-21-2023 take 1 tablet by bridget th once daily levothyroxine 50 mcg (0.05 mg) Tab 50 mcg = 1 tab(s), Oral, Daily, # 90 tab(s), Refills(s) 1, [id number], 148, cm, 03/21/23 8:51:00 EST, Height/Length Dosing, 64, kg, 03/21/23 8:51:00 EST, Weight Dosing Start Date: 03/21/23 Status: Ordered Start: 07-05-2022 take 1 tablet by bridget th once daily levothyroxine 50 mcg (0.05 mg) Tab 50 mcg = 1 tab(s), Oral, Daily, Refills(s) 0 Start Date: 07/05/22 Status: Ordered Start: 07-10-2018 take 1 tablet by bridget th once daily Levothyroxine So dium Active meclizine hydrochloride 25 m g oral tablet (7 sources) Antiemetic Start: 09-04-2024 take 1 tablet by bridget th three times daily as needed Start: 08-25-2022 take 1 tablet by bridget th every eight hours as needed for dizziness meclizine 25 mg Tab 25 mg = 1 tab(s), Oral, q8hr, as needed for dizziness, # 30 tab(s), Refills(s) 0, Pharmacy: [facility]/pharmacy #[id number], 147.8, cm, 07/26/22 15:28:00 EDT, Height/Length Dosing, 63.6, kg, 07/26/22 15:28:00 EDT, Weight Dosing Start Date: 08/25/22 Status: Ordered Quantity: 30.0 Unit: tab(s) Repeat number: 1 methylPREDNISolone (12 sources) Corticosteroid Start: 09-16-2022 methylPREDNISolone (Medrol Dospak) 4 MG tablets TAKE 6 TABLETS ON DAY 1 DIRECTED ON PACKAGE AND DECREASE BY 1 TAB EACH DAY FOR A TOTAL OF 6 DAYS 09/16/2022 Active 24 hr metoprolol succinate 25 mg extended release oral tablet (20 sources) beta-Adrenergic Samm Start: 07-05-2022 metoprolol succinate XL (Toprol-XL) 25 MG 24 hr tablet metoprolol succinate ER 25 mg tablet,extended release 24 hr 07/05/2022 Active Start: 07-10-2018 End: 03-29-2025 take 1 tablet by mouth once daily metoprolol tartr ate (Lopressor) 25 MG tablet 1 (one) time each day at the same time. Active Metoprolol Tartr ate Not-Taking montelukast 10 mg oral tablet (20 sources) Leukotriene Receptor Antagonist Start: 07-10-2018 take 1 tablet by mouth once daily Montelukast Sodi um Active Multiple Vitamins-Minerals (PreserVision AREDS) tablet (12 sources) Multiple Vitamins-Minerals (PreserVision AREDS) tablet Orally Active prednisoLONE acetate 10 mg/ml ophthalmic suspension (12 sources) Corticosteroid prednisoLONE veena lao (Pred-Forte) 1 % ophthalmic suspension prednisolone acetate 1 % eye drops,suspension Active predniSONE 20 mg oral tablet (2 sources) Start: 2024 take 1 tablet by mouth once daily PreserVision AREDS (2 sources) PreserVision ARE DS Active spironolactone 25 mg oral tablet (20 sources) Aldosterone Antagonist Start: 2022 spironolactone (Aldactone) 25 MG tablet every 12 (twelve) hours. 07/05/2022 Active Start: 07-10-2018 take 1 tablet by mouth once da ortiz Spironolactone A ctive Tylenol Extra Strength (4 sources) Start: 09-08-2022 take 500 mg by mouth twice daily as needed for pain Tylenol Extra Strength 500 mg, Oral, BID, PRN as needed for pain, Refills(s) 0 Start Date: 09/08/22 Status: Ordered Repeat number: 1 Start: 09-08-2022 take 500 mg by mouth twice daily as needed for pain Tylenol Extra Strength 500 mg, Oral, BID, PRN as needed for pain, Refills(s) 0 Start Date: 09/08/22 Status: Ordered Completed/Discontinued Medications Medication Drug Class(es) Dates Sig (Normalized) Sig (Original) acetaminophen 500 mg oral tablet (18 sources) Start: 07-10-2018 End: 09-04-2024 take 1 tablet by mouth twice daily as needed for pain Acetaminophen (Tylenol Extra Strength) 500 mg Tablet Discontinued 500 MG PO Twice daily as needed for Pain July 10, 2018 12:00am September 04, 2024 8:22am acetaminophen (T ylenol Extra Strength) 500 MG tablet every 6 (six) hours. Active Areds 2 1 tab (6 sources) Start: 07-10-2018 End: 07-13-2018 take 2 tablets by mouth twice daily Areds 2 1 tab Discontinued 2 TAB PO Twice daily July 10, 2018 12:00am July 13, 2018 10:17am Start: 07-10-2018 End: 07-13-2018 take 2 tablets by mouth twice daily Areds 2 1 tab Discontinued 2 TAB PO Twice daily July 09, 2018 11:00pm July 13, 2018 9:17am Vit C,I-Xx-Tbzyy-Lutein-Zeax an (Preservision Areds-2) 288-288-27-1 tt-ukzn-yv-mg Capsule (6 sources) Start: 07-13-2018 End: 09-04-2024 take 1 capsule by mouth twice daily Vit C,U-Ei-Fgsvr-Lutein-Zeaxan (Preservision Areds-2) 482-134-89-1 cv-ysxw-mb-mg Capsule Discontinued 2 TAB PO Twice daily July 13, 2018 12:00am September 04, 2024 8:22am Start: 07-13-2018 take 1 capsule by [facility] twice daily Vit C,G-Kx-Zvmwr-Lutein-Zeaxan (Preservision Areds-2) 048-323-25-1 bx-djce-aa-mg Capsule Active 2 TAB PO Twice daily July 13, 2018 12:00am Start: 07-13-2018 take 1 capsule by [facility] twice daily Vit C,F-Tm-Bayke-Lutein-Zeaxan (Preservision Areds-2) 933-172-67-1 kh-gpoj-xb-mg Capsule Active 2 TAB PO Twice daily July 12, 2018 11:00pm Problems Active Problems Problem Classification Problem Date Documented Date Episodic/Chronic Abdominal pain (6 sources) Right upper quadrant pain; Translations: [Right upper quadrant pain] Episodic Acquired foot deformities (4 sources) Foot-drop 09-08-2022 Episodic Administrative/social admission (1 source) Bereavement 09-19-2023 Episodic Asthma (4 sources) Asthma 09-08-2022 Chronic Cancer; other and unspecified primary (3 sources) Squamous cell carcinoma in situ Onset: 09-20-1909-19-2022 Chronic Cardiac dysrhythmias (4 sources) Irregular heart beat; Translations: [Cardiac arrhythmia, unspecified] 09-05-2024 Chronic Conditions associated with dizziness or vertigo (5 sources) Benign paroxysmal vertigo, unspecified ear; Translations: [Labyrinthitis] Onset: 12-23-19 Episodic Conduction disorders (4 sources) Left bundle branch block; Translations: [Left bundle-branch block, unspecified] 09-05-2024 Chronic Disorders of lipid metabolism (4 sources) Hypercholesterolemia 07-05-2022 Chronic Diverticulosis and diverticulitis (4 sources) Diverticular disease 07-05-2022 Chronic Essential hypertension (8 sources) Hypertensive disorder; Translations: [Essential hypertension] 07-05-2022 Chronic Heart valve disorders (6 sources) Nonrheumatic aortic (valve) stenosis; Translations: [Rheumatic disorders of both mitral and aortic valves] Onset: 07-20-19 Chronic Heart valve disorders (4 sources) Heart murmur 07-05-2022 Episodic Comment on above: bicuspid aortic valv e Hypertension with complications and secondary hypertension (2 sources) Hypertensive heart disease without heart failure; Translations: [Hypertensive heart disease without heart failure] Onset: 11-30-19 Chronic Inflammation; infection of eye (except that caused by tuberculosis or sexually transmitteddisease) (15 sources) 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; Translations: [Unspecified blepharitis right eye, upper and lower eyelids] Onset: 09-20-19 23 09-19-2022 Episodic Neoplasms of unspecified nature or uncertain behavior (4 sources) Neoplasm of uncertain behavior of skin; Translations: [Neoplasm of uncertain behavior of skin] 05-23-2024 Episodic Osteoarthritis (12 sources) Osteoarthritis of hip; Translations: [Osteoarthritis of right hip joint] 07-05-2022 Chronic Osteoporosis (2 sources) Osteoporosis; Translations: [Age-related osteoporosis without current pathological fracture] Onset: 08-23-19 25 07-05-2022 Chronic Other acquired deformities (1 source) Deformity of foot 05-13-2024 Episodic Other aftercare (3 sources) Other skilled nursing (current) drug therapy; Translations: [Other skilled nursing (current) drug therapy] Onset: 11-30-19 Episodic Other bone disease and musculoskeletal deformities (3 sources) Osteopenia 09-26-2022 Episodic Other PLUG STITCHER infection and poliomyelitis (4 sources) 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 WHITLEY Huffe Other hereditary and degenerative nervous system conditions (4 sources) Restless legs 07-05-2022 Chronic Other liver diseases (11 sources) Steatosis of liver; Translations: [Fatty (change of) liver, not elsewhere classified] 07-05-2022 Chronic Other liver diseases (5 sources) Fatty (change of) liver, not elsewhere classified; Translations: [Other chronic nonalcoholic liver disease] Onset: 03-05-20 Chronic Other nervous system disorders (1 source) Disorder of the autonomic nervous system, unspecified; Translations: [DISORDER AUTONOMIC NERVOUS SYS UNS] Onset: 03-11-19 Chronic Other nervous system disorders (1 source) Other disorders of autonomic nervous system; Translations: [OTH DISORDERS AUTONOMIC NERVOUS SYS] Onset: 12-11-19 Chronic Other nervous system disorders (2 sources) Other chronic pain; Translations: [Other chronic pain] Onset: 07-25-19 Chronic Other non-traumatic joint disorders (5 sources) Hip pain; Translations: [Pain in right hip] 05-07-2024 Episodic Other non-traumatic joint disorders (1 source) Pain in right shoulder; Translations: [Pain in right shoulder] Onset: 09-06-19 Episodic Other nutritional; endocrine; and metabolic disorders (3 sources) Overweight 07-05-2022 Episodic Other screening for suspected conditions (not mental disorders or infectious disease) (1 source) Abnormal electrocardiogram [ECG] [EKG]; Translations: [Abnormal electrocardiogram [ECG] [EKG]] Onset: 09-06-19 Episodic Other skin disorders (4 sources) Nail dystrophy; Translations: [NAIL DYSTROPHY] Onset: 06-09-19 Episodic Other upper respiratory disease (1 source) Allergic rhinitis 07-05-2022 Chronic Other upper respiratory disease (3 sources) Allergic rhinitis due to pollen; Translations: [Allergic rhinitis due to pollen] 09-19-2022 Chronic Other upper respiratory disease (2 sources) Nasal congestion 03-03-2023 Episodic Other upper respiratory infections (1 source) Acute upper respiratory infection 07-10-2023 Episodic Peripheral and visceral atherosclerosis (1 source) Peripheral vascular disease, unspecified; Translations: [PERIPHERAL VASCULAR DISEASE UNS] Onset: 03-11-19 Chronic Retinal detachments; defects; vascular occlusion; and retinopathy (15 sources) Nonexudative age-related macular degeneration; Translations: [Nonexudative age-related macular degeneration, bilateral, advanced atrophic with subfoveal involvement] Onset: 09-20-1909-19-2022 Chronic Spondylosis; intervertebral disc disorders; other back problems (12 sources) Cervical spondylosis; Translations: [Lumbar spondylosis] 07-05-2022 Chronic Spondylosis; intervertebral disc disorders; other back problems (5 sources) Sciatica; Translations: [Nerve root disorder] Onset: 09-06-1909-19-2023 Episodic Thyroid disorders (4 sources) Hypothyroidism 07-05-2022 Chronic Unclassified (3 sources) COUGH, UNSPECIFIED; Translations: [COUGH, UNSPECIFIED] Onset: 09-11-19 Unclassified (3 sources) Pain of knee region 06-27-2023 Unclassified (3 sources) Pain of right shoulder region 03-21-2023 Viral infection (4 sources) Verruca plantaris; Translations: [Plantar wart] 05-23-2024 Episodic Viral infection (1 source) COVID-19; Translations: [COVID-19] Onset: 09-11-19 Past or Other Problems Problem Classification Problem Date Documented Da te Episodic/Chronic Mycoses (2 sources) Tinea unguium; Translations: [Dermatophytosis, unspecified] Onset: 03-11-2022 Episodic Other aftercare (2 sources) Encounter for therapeutic drug level monitoring; Translations: [Encounter for therapeutic drug level monitoring] Onset: 11-30-2023 Episodic Other circulatory disease (4 sources) Other specified symptoms and signs involving the circulatory and respiratory systems; Translations: [OTH SPEC SX SIGNS INVLV CIRC RS] Onset: 01-03-2022 Episodic Other non-traumatic joint disorders (3 sources) Pain in right hip; Translations: [Pain in right hip] Onset: 05-08-2024 Episodic Other skin disorders (1 source) Onychogryphosis; 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] Onset: 09-02-2021 Episodic Unclassified (1 source) COUGH, UNSPECIFIED; Translations: [COUGH, UNSPECIFIED] Onset: 09-07-2021 Results Test Name Value Interpretation Reference Range [facility] it Lipid Panelon 09-26-2024 Cholesterol [Mass/Vol] 112 mg/dL Low 120-200 [facility] Comment on above: Performed By: #### 2 [id number] #### [facility] [address] [place] [address] Cholesterol in HDL [Mass/Vol] 40 mg/dL Invalid Interpretation Code [facility] Comment on above: Result Comment: '>= 60 LOW RISK' '<= 40 HIGH RISK' Performed By: #### 2 [id number] #### [facility] [address] [place] [address] Cholesterol in LDL [Mass/Vol] 58 mg/dL Normal <=129 [facility] Comment on above: Performed By: #### 2 [id number] #### [facility] [address] [place] [address] Cholesterol in VLDL [Mass/Vol] 33 mg/dL Normal 7-40 [facility] Comment on above: Performed By: #### 2 [id number] #### [facility] [address] [place] [address] Triglyceride [Mass/Vol] 163 mg/dL High <=149 [facility] Comment on above: Performed By: #### 2 [id number] #### [facility] [address] [place] [address] Ambulatory Visit Summaryon 0 09-09-2024 Ambulatory Visit Summary Ambulatory Visit Summary UNA GOMEZ :1940 Visit Date:09/09/2024 Ambulatory Visit Instructions Your Diagnosis Encounter for subsequent annual wellness visit (AWV) in Medicare patient Post-poliomyelitis muscular atrophy Hypercholesterolemia Hypothyroidism Primary hypertension Osteopenia Ovarian failure due to menopause Family history of diabetes mellitus (DM) Overweight Your Care Team Attending Physician - Marlee Martinez Primary Care Physician - Marlee Martinez This Is Your Medications List acetaminophen (Tylenol Extra Strength) albuterol (Albuterol (Eqv-ProAir HFA) 90 mcg/inh inhalation aerosol) aspirin budesonide-formoterol (Symbicort) calcium carbonate (Tums) candesartan (candesartan 4 mg Tab) celecoxib (celecoxib 200 mg Cap) digoxin (digoxin 125 mcg (0.125 mg) Tab) ergocalciferol (Vitamin D 50,000 intl units (1.25 mg) oral capsule) levothyroxine (levothyroxine 50 mcg (0.05 mg) Tab) meclizine (meclizine 25 mg Tab) metoprolol (metoprolol succinate 25 mg ER Tab) montelukast (montelukast 10 mg Tab) spironolactone (spironolactone 25 mg Tab) Procedures Performed Cataracts, Cholecystectomy, Shoulder replacement. Discharge Vitals Heart Rate (Peripheral) 64 Blood Pressure 120/60 Height 147.5 cm Height 58 in Weight 58.15 kg Weight 128.199 lb BMI 26.73 What to do next Scheduled Follow-Up Appointments Monday 8:40 AM EDT With: Where: [address] [address]- Monday 1:40 PM EST With: Marlee Martinez Where: [address] [address]- [id number] 11:00 AM EDT With: Where: [address] [address]- You Need to Complete the Following Lipid Panel, Blood, Routine collect, 09/09/24, Order for future visit, Lab Collect, Hypercholesterolemia, Required & Missing, Print Label By Order Location [facility] DEXA, 09/09/24, Routine, Order for Future Visit, Transport Mode: Ambulatory, Reason: Post menopausal, Ovarian failure due to menopause, No, 128, pp_set_radiology_subspeci alty, Not Required, [facility] Medications What How Much When Why Instructions Unchanged acetaminophen (Tylenol Extra Strength) 500 [...] 1 TABLET BY MOUTH EVERY DAY Unchanged ergocalciferol (Vitamin D 50,000 intl units (1.25 mg) oral capsule) 1 Capsules By Mouth 2 times a week Pre-op exam Vitamin D deficiency Unchanged levothyroxine (levothyroxine 50 mcg (0.05 mg) [...] 1 TABLET BY MOUTH EVERY DAY Unchanged spironolactone (spironolactone 25 mg Tab) See instructions TAKE 1 TABLET BY MOUTH EVERY DAY Allergies Augmentin (Unknown) Diflucan (Unknown) sulfa drugs (Unknown) traMADol (Unknown) Problems Ongoing - Any problem that you are currently receiving treatment for. Asthma BMI 26.0-26.9,adult Cervical spondylosis Diverticular disease Foot deformity Foot drop Hypercholesterolemia Hypothyroidism Knee pain, left Left atrial enlargement Left bundle branch block Left sciatic nerve pain Lumbar spondylosis Murmur Non-seasonal allergic rhinitis due to pollen Osteoarthritis of hip Osteopenia Post-poliomyelitis muscular atrophy Pre-op exam Primary hypertension Restless legs syndrome Right upper quadrant pain Shoulder pain, right Squamous cell carcinoma in situ Steatosis of liver Thoracic spondylosis Vitamin D deficiency Historical - Any problem that you are no longer receiving treatment for. Right bundle branch block Patient Survey You may receive a survey via text or e-mail asking about your office visit. Please share your experience with us by completing your survey. We appreciate your feedback and thank you for choosing us fo (more content not included)... Normal [facility] Family Medicine Office/Clini c Noteon 09-09-2024 Family Medicine Office/Clinic Note Family Medicine Office/Clinic Note Chief Complaint Subsequent Medicare Wellness Review of Systems PHQ Score Initial Depression Screen Score: 0 SCORE Physical Exam Vitals & Measurements HR: 64(Peripheral) BP: 120/60 SpO2: 96% HT: 58 in HT: 147.5 cm WT: 128.199 lb WT: 58.15 kg BMI: 26.73 Assessment/Plan 1. Encounter for subsequent annual wellness visit (AWV) in Medicare patient (Z00.00: Encounter for general adult medical examination without abnormal findings) Patient in office today for her Subsequent Medicare Wellness Visit. A customized and personalized print out of all the current AHRQ USPSTF???s recommendations for preventative services and all current CDC recommended immunizations, relevant risk recommendations and the following patient brochures were given. Reviewed What can I expect during my Medicare preventative care visit CDC-Falls Prevention and home safety screening reviewed. Patient denies any falls in last 12 months, voices no worry about falling, exhibits no problems with sitting and standing. Pt voices understanding with keeping walk way area free of clutter to prevent tripping and/or falling. [place] Advance Directives reviewed, present at home. Encouraged to bring into office to scan into chart. Patient denies any problems with ADL???s and Instrumental ADL???s. Cognitive screening completed with memory and clock face drawing. Immunization Record reviewed with the patient. Discussed Shingrix vaccine and availability, information on vaccine provided. Pneumonococcal vaccines previously received. 2 COVID vaccines have been administered, and 2 boosters. Immunization record is up to date. Allergies and medications reviewed and up to date. Patient denies concerns with taking medication as prescribed, reviewed OTC medications with patient with medication list up to date. Blood tests were reviewed: Discussed what tests need to be updated. Labs were ordered per patient request, she will have completed at [facility] prior to next PCP visit. Mammogram: Patient no longer screens due to age. Colonoscopy screenings no longer screens due to age. Reviewed concerns with bladder control over past 6 months with no concerns. Reviewed pain symptoms with patient: denies pain today. Reviewed all outside providers that patient follows. Last visit summary notes available in chart and/or have been requested. Follow up scheduled: 02/17/2025. AWV has been scheduled: 09/09/2025. Medicare provides yearly screening for alcohol and depression concerns. This is completed during our Medicare wellness visit for those who do not have a current diagnosis of depression or concerns with alcohol use. I spent a total of (12) minutes on this date of service which included preparing to see the patient, face to face patient care, completing clinical documentation, obtaining and/or reviewing separately obtained history, counseling and educating the patient with handouts. Explanations were provided with reviewing questionnaires. AUDIT risk assessment screening completed, risk score(0) with patient denying concerns with use. Completed PHQ-2 risk assessment for depression with risk score(0), negative findings. Patient has been reminded to notify the provider if there would be a change or concerns with symptoms with fear, unable to sleep, worrying too much or feeling down and/or sad with lost of interest with daily activities. Will continue to monitor with screening yearly during Medicare wellness visits. 2. Post-poliomyelitis muscular atrophy (G14: Postpolio syndrome) Patient reports some pain in right leg due to post polio. Patient denies pain today. Patient follows pcp as directed. 3. Hypercholesterolemia (E78.00: Pure hypercholesterolemia, unspecified) Reviewed healthy lifestyle with low fat diet and exercise regimen. When you are overweight our body produces more lipids. Risk also increases with family history of hyperlipidemia and with monitoring alcohol use and avoid smoking. Pt voices understanding with importance of monitoring dietary intake to reduce risk factors associated with CVA. Taking statin medications daily as directed. Will continue to follow up with office visits with updated labs as directed. LIPID Panel ordered. 4. Hypothyroidism (E03.9: Hypothyroidism, unspecified) Patient taking (Levothyroxine) daily as directed, taking in am on an empty stomach and 30 minutes before eating or taking other medications. Denies concerns with cold intolerance, or change in appetite, constipation, slow growing hair or hair thinning. Follows up with PCP during office visits with blood work and medication management. 5. Primary hypertension (I10: Essential (primary) hypertension) Patient is taking metoprolol and spironolactone daily as directed. Does not monitor BP pressure at home. HTN stoplight reviewed with BP goal to be <140/90. Reviewed different factors that can alter blood pressure readings. Education handout provided with s/s to monitor for and report to pro (more content not included)... Normal [facility] Comment on above: Result Comment: Elec tronically Signed By: Marlee Martinez\.br\Date and Time Signed: 09/09/24 17:53 EDT\.br\Electronically Co-Signed By: Juliana Glez\.br\Date and Time Co-Signed: 09/09/24 13:48 EDT [facility] ECG *CARDIOLOGY ONLY*on 09-05-2024 [facility] ECG *CARDIOLOGY ONLY* [facility] Main [place] [address] [place] [address] Electrocardiograph Report Signed Patient: Una Gomez MR#: [id number] : 1940 Acct:[id number] Age/Sex: 84 / F ADM Date: 09/05/24 Loc: EKGCARDIO [facility]: [facility] Attending Dr: Curtis Morales MD Ordering Provider: Curtis Morales MD Date of Service: 09/05/2405/29/835 ECG/FPG ECG *CARDIOLOGY ONLY*: R94.31 - Abnormal electrocardiogram [ECG] [EKG] Copies to: Test Reason : Blood Pressure : */* mmHG Vent. Rate : 76 BPM Atrial Rate : 76 BPM P-R Int : 166 ms QRS Dur : 136 ms QT Int : 400 ms P-R-T Axes : 28 -76 72 degrees QTcB Int : 450 ms Normal sinus rhythm Left axis deviation Left bundle branch block Abnormal ECG No previous ECGs available Confirmed by Curtis Morales ([id number]) on 09/09/2024 4:23:45 PM Referred By: Electronically Signed By: Curtis Morales Transcribed By: MUS Signed By Curtis Morales MD 09/09/24 1623 Normal [facility] X-ray reportOrdered By: Pedrito Webster on 09-05-2024 Study report [facility] Main [place] [id number] XRay Report Signed Patient: Una Gomez MR#: [id number] : 1940 Acct:[id number] Age/Sex: 84 / F ADM Date: 5 Loc: ER Room: Type: [facility] ER Attending Dr: Copies to: Rosa M Romano APRN~ Ordering Provider: Rosa M Romano APRN Date of Service: 09/05/24 XR/XR shoulder RT min 2V*: Extremity Injury, Upper 4 views right shoulder plain film HISTORY: Right axillary shoulder pain for months. COMPARISON: None ACUTE FINDINGS: None DEGENERATIVE CHANGE: Unremarkable SOFT TISSUE FINDINGS: Unremarkable JOINT EFFUSION: None POSTOP CHANGES: Uncomplicated right shoulder arthroplasty BONY MINERALIZATION: Adequate XR/XR shoulder RT min 2V* IMPRESSION: Uncomplicated right shoulder arthroplasty. Impression dictated by: Rock Webster M.D. 09/05/2024 8:44 PM Dictation Location: [place] [address] Transcribed By: [facility] 09/05/242043 Dictated By: oRck Webster DO 09/05/242043 Signed By: 09/05/242043 [facility] XR shoulder RT min 2V*on XR shoulder RT min 2V* [facility] Main [address] [address] XRay Report Signed Patient: Una Gomez MR#: [id number] : 1940 Acct:[id number] Age/Sex: 84 / F ADM Date: 09/05/24 Loc: ER Room: Type: [facility] ER Attending Dr: Copies to: Rosa M Romano APRN Ordering Provider: Rosa M Romano APRN Date of Service: 09/05/24 XR/XR shoulder RT min 2V*: Extremity Injury, Upper 4 views right shoulder plain film HISTORY: Right axillary shoulder pain for months. COMPARISON: None ACUTE FINDINGS: None DEGENERATIVE CHANGE: Unremarkable SOFT TISSUE FINDINGS: Unremarkable JOINT EFFUSION: None POSTOP CHANGES: Uncomplicated right shoulder arthroplasty BONY MINERALIZATION: Adequate XR/XR shoulder RT min 2V* IMPRESSION: Uncomplicated right shoulder arthroplasty. Impression dictated by: Rock Webster M.D. 09/05/2024 8:44 PM [facility]ictation Location[facility] Transcribed By: [facility] 09/05/242043 Dictated By: Rock Webster DO 09/05/242043 Signed By: 09/05/242043 Normal [facility] Ambulatory Visit Summaryon 0 08-29-2024 Ambulatory Visit Summary Ambulatory Visit Summary GERI UNA Radha :1940 Visit Date:08/29/2024 Ambulatory Visit Instructions Your Diagnosis Pre-op exam Vitamin D deficiency Your Care Team Attending Physician - Marlee Martinez Primary Care Physician - Marlee Martinez This Is Your Medications List acetaminophen (Tylenol Extra Strength) albuterol (Albuterol (Eqv-ProAir HFA) 90 mcg/inh inhalation aerosol) aspirin budesonide-formoterol (Symbicort) calcium carbonate (Tums) candesartan (candesartan 4 mg Tab) celecoxib (celecoxib 200 mg Cap) digoxin (digoxin 125 mcg (0.125 mg) Tab) ergocalciferol (Vitamin D 50,000 intl units (1.25 mg) oral capsule) levothyroxine (levothyroxine 50 mcg (0.05 mg) Tab) meclizine (meclizine 25 mg Tab) metoprolol (metoprolol succinate 25 mg ER Tab) montelukast (montelukast 10 mg Tab) spironolactone (spironolactone 25 mg Tab) Procedures Performed Cataracts, Cholecystectomy, Shoulder replacement. Discharge Vitals Heart Rate (Peripheral) 82 Blood Pressure 112/70 Height 147 cm Height 58 in Weight 57.9 kg Weight 127.647 lb BMI 26.79 What to do next Scheduled Follow-Up Appointments Monday 11:00 AM EDT Where: [address] [address]- Medications What How Much When Why Instructions New ergocalciferol (Vitamin D 50,000 intl units (1.25 mg) oral capsule) 1 Capsules By Mouth 2 times a week Pre-op exam Vitamin D deficiency Refills: 3 Pickup at [facility]/pharmacy #[id number] Unchanged acetaminophen (Tylenol Extra Strength) 500 Milligram [...] 1 TABLET BY MOUTH EVERY DAY Unchanged spironolactone (spironolactone 25 mg Tab) See instructions TAKE 1 TABLET BY MOUTH EVERY DAY Pharmacy Information [facility]/pharmacy #[id number]: [address], [place] [id number] [phone] Allergies Augmentin (Unknown) Diflucan (Unknown) sulfa drugs (Unknown) traMADol (Unknown) Problems Ongoing - Any problem that you are currently receiving treatment for. Asthma Cervical spondylosis Diverticular disease Foot deformity Foot drop Hypercholesterolemia Hypothyroidism Knee pain, left Left sciatic nerve pain Lumbar spondylosis Murmur Non-seasonal allergic rhinitis due to pollen Osteoarthritis of hip Osteopenia Post-poliomyelitis muscular atrophy Pre-op exam Primary hypertension Restless legs syndrome Right upper quadrant pain Shoulder pain, right Squamous cell carcinoma in situ Steatosis of liver Thoracic spondylosis Vitamin D deficiency Patient Survey You may receive a survey via text or e-mail asking about your office visit. Please share your experience with us by completing your survey. We appreciate your feedback and thank you for choosing us for your care. Patient Portal You may access all of your results and other medical record information on our secure patient portal. If you are not signed up for this yet, please contact [employer] at [phone] to get signed up today. Language Information Language assistance services are available as needed. Normal [facility] Family Medicine Office/Clini c Noteon 08-29-2024 Family Medicine Office/Clinic Note Family Medicine Office/Clinic Note Chief Complaint surgical clearance HPI Staff Patient is presenting for pre-surgical clearance Ortho - Dr. Hernandez at [facility] Pre-testing, labs done Concerns: Refills: unsure History of Present Illness pt presents today for pre op exam. Review of Systems PHQ Score Initial Depression Screen Score: 0 SCORE Physical Exam Vitals & Measurements HR: 82(Peripheral) BP: 112/70 SpO2: 97% HT: 147 cm HT: 58 in WT: 127.647 lb WT: 57.9 kg BMI: 26.79 General: alert, no acute distress ENMT: oral mucosa moist, no pharyngeal erythema or exudate Cardiovascular: regular rate and rhythm, normal peripheral perfusion Respiratory: Lungs CTA, respirations non labored Extremities: no deformity, no trauma Neurological: oriented x 4, LOC appropriate for age, CN II-XII intact, motor strength equal & normal bilaterally, speech normal Assessment/Plan 1. Pre-op exam (Z01.818: Encounter for other preprocedural examination) pt will be scheduled for right total hip arthroplasty by Dr. Hernandez. all pre op testing reviewed. pt is cleared for surgery. will send letter with OV note. EKG was performed in office today. all questions answered. RTC as needed Ordered: ergocalciferol, 50,000 International_Unit = 1 cap(s), Oral, 2x/Wk, # 24 cap(s), Refills(s) 3, [id number], 147, cm, 08/29/24 14:41:00 EDT, Height/Length Dosing, 57.9, kg, 08/29/24 14:41:00 EDT, Weight Dosing ECG 12 Lead Adult [facility] External Ambulatory Referral 2. Vitamin D deficiency (E55.9: Vitamin D deficiency, unspecified) vitamin D sent in Ordered: ergocalciferol, 50,000 International_Unit = 1 cap(s), Oral, 2x/Wk, # 24 cap(s), Refills(s) 3, [id number], 147, cm, 08/29/24 14:41:00 EDT, Height/Length Dosing, 57.9, kg, 08/29/24 14:41:00 EDT, Weight Dosing [facility] External Ambulatory Referral 3. Left bundle branch block (I44.7: Left bundle-branch block, unspecified) PT WILL BE REFERRED TO [facility] FOR CARDIAC CLEARANCE FOR SURGERY Ordered: [facility] External Ambulatory Referral 4. Left atrial enlargement (I51.7: Cardiomegaly) ABNORMAL EKG IN OFFICE Ordered: [facility] External Ambulatory Referral 5. BMI 26.0-26.9,adult (Z68.26: Body mass index [BMI] 26.0-26.9, adult) BMI EDUCATION Follow-up No qualifying data available Problem List/Past Medical History Ongoing Asthma BMI 26.0-26.9,adult Cervical spondylosis Diverticular disease Foot deformity Foot drop Hypercholesterolemia Hypothyroidism Knee pain, left Left atrial enlargement Left bundle branch block Left sciatic nerve pain Lumbar spondylosis Murmur Non-seasonal allergic rhinitis due to pollen Osteoarthritis of hip Osteopenia Post-poliomyelitis muscular atrophy Pre-op exam Primary hypertension Restless legs syndrome Right upper quadrant pain Shoulder pain, right Squamous cell carcinoma in situ Steatosis of liver Thoracic spondylosis Vitamin D deficiency Historical Right bundle branch block Procedure/Surgical History Cataracts, Cholecystectomy, Shoulder replacement. Medications Albuterol (Eqv-ProAir HFA) 90 mcg/inh inhalation aerosol, See Instructions aspirin, 81 mg, Oral, Daily candesartan 4 mg Tab, See Instructions, 1 refills celecoxib 200 mg Cap, See Instructions, 1 refills digoxin 125 mcg (0.125 mg) Tab, See Instructions levothyroxine 50 mcg (0.05 mg) Tab, See Instructions, 1 refills meclizine 25 mg Tab, 25 mg= 1 tab(s), Oral, q8hr metoprolol succinate 25 mg ER Tab, 25 mg= 1 tab(s), Oral, Bedtime, 3 refills montelukast 10 mg Tab, See Instructions spironolactone 25 mg Tab, See Instructions, 4 refills Symbicort, 80/4.5, Inhalation, BID Tums, Chewed, Daily Tylenol Extra Strength, 500 mg, Oral, BID, PRN Vitamin D 50,000 intl units (1.25 mg) oral capsule, [id number] International_Unit= 1 cap(s), Oral, 2x/Wk, 3 refills Allergies Augmentin (Unknown) Diflucan (Unknown) sulfa drugs (Unknown) traMADol (Unknown) Social History Alcohol - Denies Alcohol Use, 09/14/2023 Never., 01/03/2024 Substance Abuse - Denies Substance Abuse, 09/14/2023 Never., 01/03/2024 Tobacco - Denies Tobacco Use, 09/14/2023 Never (less than 100 in lifetime) Tobacco Use:. Never Smokeless Tobacco Use:. Household tobacco concerns: No. Yes, 08/29/2024 Family History Acute myocardial infarction: Grandparent and Grandparent. Immunizations Vaccine Date Status Comments influenza virus vaccine, inactivated 01/23/2024 Recorded influenza virus vaccine, inactivated 12/14/2022 Recorded SARS-CoV-2 (COVID-19) [id number] 02/10/2022 Recorded influenza virus vaccine, inactivated 12/27/2021 Recorded SARS-CoV-2 (COVID-19) mRNA-1273 vaccine 03/17/2021 Recorded 2022-07-04: [id number] influenza virus vaccine, inactivated 02/10/2021 Recorded pneumococcal 23-valent vaccine 09/11/2020 Recorded SARS-CoV-2 (COVID-19) mRNA-1273 vaccine 05/05/2020 Recorded SARS-CoV-2 (COVID-19) mRNA-1273 (more content not included)... [facility] Comment on above: Result Comment: Elec tronically Signed By: Marlee Martinez\.br\Date and Time Signed: 08/29/24 15:48 EDT Provider Letteron 08-29-2024 Provider Letter Provider Letter [address] [place] [address] August 29, 2024 UNA GOMEZ [address] [place] [phone] : [address] Hernandez, The above patient has been evaluated at your request for preoperative clearance. After assessment of available pertinent labs and diagnostic tests, I feel this patient is medically optimized for surgery. Final discretion of whether the patient is cleared for surgery remains up to the surgeon/anesthesiologist. Thank you, Marlee Malcolm, EMILIANO-[place] Normal [facility] A1C with Estimated Average G luon 08-22-2024 Glucose [Mass/Vol] 103 mg/dL Normal [facility] Comment on above: Result Comment: PERF ORMED BY: [address] [place] [address] PATHOLOGIST DIRECTOR OF FRONT OFFICE BRENT LOPEZ M.D. Performed By: #### A LB, A1C WTH eA, MRSA - MSSA PCR, HGB, [id number] #### [address] #### NICOTINE #### [facility] , Albumin Levelon 08-22-2024 Albumin [Mass/Vol] 4.3 g/dL Normal 3.5-5.7 [facility] Comment on above: Performed By: #### A LB, A1C WTH eA, MRSA - MSSA PCR, HGB, [id number] #### [facility] [address] [place] [address] [place] #### NICOTINE #### [facility] , Albumin [Mass/volume] in Ser um or Plasma by Bromocresol green (BCG) dye binding methoOrdered By: Fred Hernandez on 08-22-2024 Albumin BCG dye [Mass/Vol] 4.3 g/dL 3.5-5.7 [facility] Blood estimated average gluc ose determination by estimation from glycated hemoglobinOrdered By: Fred Hernandez on 08-22-2024 Average glucose Estimated from glycated hemoglobin (Bld) [Mass/Vol] 103 mg/dL [facility] Cotinine [Mass/volume] in Se rum or PlasmaOrdered By: Fred Hernandez on 08-22-2024 Cotinine [Mass/Vol] <1.0 ng/mL . [facility] Comment on above: This test was develo ped and its performance characteristicsdetermined by [employer] ???. It has not been cleared orapproved by the Food and Drug Administration.Cotinine levels greater than 20.0 are consistent with theuse of tobacco or tobacco cessation products.Performed at: [address] [id number] Director: Kayleigh Lawrence MD, Phone: [phone] Hemoglobin A1c/Hemoglobin.to parth in BloodOrdered By: Fred Hernandez on 08-22-2024 HbA1c (Bld) [Mass fraction] 5.2 % Normal 4.3-5.6 [facility] Comment on above: Increased risk for d iabetes: 5.7 - 6.4diabetes: >6.4glycemic control for adults with diabetes: <7.0 Result Comment: Incr eased risk for diabetes: 5.7 - 6.4 diabetes: >6.4 glycemic control for adults with diabetes: <7.0 Performed By: #### A LB, A1C WTH eA, MRSA - MSSA PCR, HGB, [id number] #### [place] [address] [place] #### NICOTINE #### [facility] , Hemoglobin [Mass/volume] in BloodOrdered By: Fred Hernandez on 08-22-2024 Hemoglobin (Bld) [Mass/Vol] 13.1 g/dL Normal 11.8-15.4 [facility] Comment on above: Result Comment: PERF ORMED BY: [place] [address] PATHOLOGIST DIRECTOR OF FRONT OFFICE BRENT S JOHN M.D. Performed By: #### A LB, A1C WTH eA, MRSA - MSSA PCR, HGB, [id number] #### [address] #### NICOTINE #### [facility] , MRSA - MSSA Nasal PCRon 08-04 MRSA - MSSA Nasal PCR MRSA Result MRSA Negative MSSA Result MSSA Negative Real-time PCR Test performed by real-time PCR Reference Range Reference Range for all targets = Neg / Not Detected Reference Note 20 ---- Reference Note 26 ---- PERFORMED BY: [place] [address] PATHOLOGIST DIRECTOR OF FRONT OFFICE BRENT LOPEZ M.D. Normal [facility] Comment on above: Performed By: #### A LB, A1C WT eA, MRSA - MSSA PCR, HGB, [id number] #### [address] #### NICOTINE #### [facility] , Nicotine [Mass/volume] in Se rum or PlasmaOrdered By: Fred Hernandez on 08-22-2024 Nicotine [Mass/Vol] <1.0 ng/mL . [facility] Comment on above: This test was develo ped and its performance characteristicsdetermined by [employer] ???. It has not been cleared orapproved by the Food and Drug Administration.Nicotine levels greater than 2.0 are consistent with theuse of tobacco or tobacco cessation products. Nicotine/Cotinine Bloodon Cotinine, Blood <1.0 Normal . [facility] Comment on above: Result Comment: This test was developed and its performance characteristics determined by [facility]. It has not been cleared or approved by the Food and Drug Administration. Cotinine levels greater than 20.0 are consistent with the use of tobacco or tobacco cessation products. Performed at: [facility] [address] [id number] Stave Block Splitter: Kayleigh Lawrence MD, Phone: [phone] PERFORMED BY: [place] [id number] PATHOLOGIST DIRECTOR OF FRONT OFFICE BRENT LOPEZ M.D. Performed By: #### A LB, A1C WTH eA, MRSA - MSSA PCR, HGB, [id number] #### [address] #### NICOTINE #### [facility] , Nicotine, Blood <1.0 Normal . [facility] Comment on above: Result Comment: This test was developed and its performance characteristics determined by [facility]. It has not been cleared or approved by the Food and Drug Administration. Nicotine levels greater than 2.0 are consistent with the use of tobacco or tobacco cessation products. Performed By: #### A LB, A1C WTH eA, MRSA - MSSA PCR, HGB, [id number] #### [place] [address] [place] #### NICOTINE #### [facility] , No Panel InformationOrdered By: Fred Hernandez on 08-22-2024 Nasal Screen MRSA/MSSA [facility] Vitamin D 25 Hydroxy Totalon 08-22-2024 Vitamin D 25 Hydroxy Total 20.1 ng/mL Low 30-100 [facility] Comment on above: Result Comment: ANGELITO MIN D STATUS 25(OH)VITAMIN D RANGE (ng/mL) Deficient <20 Insufficient 20 to <30 Sufficient 30 to 100 Reference: Wade MF,Divya MITCHELL, La Nena VIDES, et al. Evaluation,treatment, and prevention of vitamin D deficiency; an Endocrine Society clinical practice guideline. JCEM. 2010; 96(7):1911-30. PERFORMED BY: [address] [address] PATHOLOGIST DIRECTOR OF FRONT OFFICE BRENT LOPEZ M.D. Performed By: #### A LB, A1C WTH eA, MRSA - MSSA PCR, HGB, [id number] #### [facility] [address] #### NICOTINE #### [facility] , Vitamin D+Metabolites [Mass/ volume] in Serum or PlasmaOrdered By: Fred Hernandez on 08-22-2024 Vitamin D+Metabolites [Mass/Vol] 20.1 ng/mL Low 30-100 [facility] Comment on above: VITAMIN D STATUS 25( [place])VITAMIN D RANGE (ng/mL) Deficient <20 Insufficient 20 to <30Sufficient 30 to 100Reference: Wade MF,Divya MITCHELL, La Nena VIDES, et al. Evaluation,treatment, and prevention of vitamin D deficiency; an Endocrine Society clinical practice guideline. JCEM. 2010; 96(7):1911-30. Ambulatory Visit Summaryon 0 08-20-2024 Ambulatory Visit Summary Ambulatory Visit Summary UNA GOMEZ :1940 Visit Date:08/20/2024 Ambulatory Visit Instructions Your Diagnosis Primary hypertension Hypothyroidism Hypercholesterolemia Unspecified osteoarthritis, unspecified site Your Care Team Attending Physician - Yaniv Singh MD. Primary Care Physician - Yaniv Singh MD. [...] ER Tab) montelukast (montelukast 10 mg Tab) spironolactone (spironolactone 25 mg Tab) Procedures Performed Cataracts, Cholecystectomy, Shoulder replacement. Discharge Vitals Temperature (Oral) 36.1 ???C Heart Rate (Peripheral) 80 Respiratory Rate 18 Blood Pressure 120/60 Height 147.0 cm Height 58 in Weight 58.2 kg Weight 128.309 lb BMI 26.93 What to do next Scheduled Follow-Up Appointments Monday 11:00 AM EDT Where: [address] [address]- Medications What How Much When Instructions Unchanged [...] By Mouth At bedtime Duration: 90 Days Pickup at [facility]/pharmacy #[id number] Unchanged montelukast (montelukast 10 mg Tab) See instructions TAKE 1 TABLET BY MOUTH EVERY DAY Unchanged spironolactone (spironolactone 25 mg Tab) See instructions TAKE 1 TABLET BY MOUTH EVERY DAY Pharmacy Information [facility]/pharmacy #[id number]: [address], [place] [id number] [phone] Allergies Augmentin (Unknown) Diflucan (Unknown) sulfa drugs (Unknown) traMADol (Unknown) Problems Ongoing - Any problem that you are currently receiving treatment for. Asthma Cervical spondylosis Diverticular disease Foot deformity Foot drop Hypercholesterolemia Hypothyroidism Knee pain, left Left sciatic nerve pain Lumbar spondylosis Murmur Non-seasonal allergic rhinitis due to pollen Osteoarthritis of hip Osteopenia Post-poliomyelitis muscular atrophy Primary hypertension Restless legs [...] for choosing us for your care. Normal [facility] CHEMISTRYOrdered By: SYSTEM SYSTEM on 08-20-2024 Albumin [Mass/Vol] 4.2 g/dL Normal 3.3 - 5.0 gm/dL R emisol Chem Albumin/Globulin [Mass ratio] 1.8 {ratio} Normal 1.1 - 2.2 Remisol Chem ALP [Catalytic activity/Vol] 86 [iU]/d Normal 21 - 98 Int._Unit/L Remisol Chem ALT No additional P-5'-P [Catalytic activity/Vol] 17 [iU]/d Normal 6 - 46 Int._Unit/L Remisol Chem Anion gap [Moles/Vol] 10 mmol/L Normal 6 - 16 mEq/L Remisol Chem AST [Catalytic activity/Vol] 21 [iU]/d Normal 5 - 43 Int._Unit/L Remisol Chem Bilirubin [Mass/Vol] 0.7 mg/dL Normal 0.0 - 1.1 mg/dL Remisol Chem Calcium [Mass/Vol] 9.5 mg/dL Normal 8.9 - 11. 1 mg/dL Remisol Chem Chloride [Moles/Vol] 104 mmol/L Normal 101 - 111 mmol/L Remisol Chem CO2 [Moles/Vol] 27 mmol/L Normal 21 - 31 mmol/L Remis ol Chem Creatinine [Mass/Vol] 0.6 mg/dL Normal 0.5 - 1.3 mg/dL Remisol Chem GFR/1.73 sq M.predicted MDRD (S/P/Bld) [Vol rate/Area] 87 mL/min/1.73 m2 Normal >=59mL/min/1.73 m2 Remisol Chem Globulin (S) [Mass/Vol] 2.4 g/dL Normal 1.4 - 4.0 gm/dL Remisol Chem Glucose [Mass/Vol] 124 mg/dL Normal 55 - 199 mg/dL Re misol Chem Potassium [Moles/Vol] 4.2 mmol/L Normal 3.5 - 5.3 mmol/L Remisol Chem Protein [Mass/Vol] 6.6 g/dL Normal 6.0 - 7.8 gm/dL R emisol Chem Sodium [Moles/Vol] 137 mmol/L Normal 135 - 145 mmol/L Remisol Chem TSH Qn 1.36 m[IU]/L Normal 0.34 - 5.60 mcIU/mL Remisol Chem Urea nitrogen [Mass/Vol] 13 mg/dL Normal 5 - 21 mg/dL Remisol Chem Urea nitrogen/Creatinine [Mass ratio] 22 mg/mg High 10 - 20 Remisol Chem CMPon 08-20-2024 Albumin [Mass/Vol] 4.2 g/dL Normal 3.3-5.0 [facility] Comment on above: Performed By: #### 2 [id number] #### [facility] [address] [place] [address] Albumin/Globulin [Mass ratio] 1.8 {ratio} Normal 1.1-2.2 [facility] Comment on above: Performed By: #### 2 [id number] #### [facility] [address] [place] [address] Alk Phos 86 Int._Unit/L Normal 21-98 [facility] Comment on above: Performed By: #### 2 [id number] #### [facility] [address] [place] [address] ALT 17 Int._Unit/L Normal 6-46 [facility] Comment on above: Performed By: #### 2 [id number] #### [facility] [address] [place] [address] Anion gap [Moles/Vol] 10 mmol/L Normal 6-16 [facility] Comment on above: Performed By: #### 2 [id number] #### [facility] [address] [place] [address] AST 21 Int._Unit/L Normal 5-43 [facility] Comment on above: Performed By: #### 2 [id number] #### [facility] [address] [place] [address] Bili Total 0.7 mg/dL Normal 0.0-1.1 [facility] Comment on above: Performed By: #### 2 230243 #### [facility] [address] [place] [address] BUN/Creat Ratio 22 No Units High 10-20 [facility] Comment on above: Performed By: #### 2 [id number] #### [facility] [address] [place] [address] Calcium [Mass/Vol] 9.5 mg/dL Normal 8.9-11.1 [facility] Comment on above: Performed By: #### 2 [id number] #### [facility] [address] [place] [address] Chloride [Moles/Vol] 104 mmol/L Normal 101-111 [facility] Comment on above: Performed By: #### 2 [id number] #### [facility] [address] [place] [address] CO2 [Moles/Vol] 27 mmol/L Normal 21-31 [facility] Comment on above: Performed By: #### 2 535234 #### [facility] [address] [place] [address] Creatinine [Mass/Vol] 0.6 mg/dL Normal 0.5-1.3 [facility] Comment on above: Performed By: #### 2 [id number] #### [facility] [address] [place] [address] Globulin (S) [Mass/Vol] 2.4 g/dL Normal 1.4-4.0 [facility] Comment on above: Performed By: #### 2 [id number] #### [facility] [address] [place] [address] Glucose [Mass/Vol] 124 mg/dL Normal 55-199 [facility] Comment on above: Performed By: #### 2 [id number] #### [facility] [address] [place] [address] Potassium [Moles/Vol] 4.2 mmol/L Normal 3.5-5.3 [facility] Comment on above: Performed By: #### 2 [id number] #### [facility] [address] [place] [address] Protein [Mass/Vol] 6.6 g/dL Normal 6.0-7.8 [facility] Comment on above: Performed By: #### 2 [id number] #### [facility] [address] [place] [address] Sodium [Moles/Vol] 137 mmol/L Normal 135-145 [facility] Comment on above: Performed By: #### 2 [id number] #### [facility] [address] [place] [address] Urea nitrogen [Mass/Vol] 13 mg/dL Normal 5-21 [facility] Comment on above: Performed By: #### 2 [id number] #### [facility] [address] [place] [address] Family Medicine Office/Clini c Noteon 08-20-2024 Family Medicine Office/Clinic Note Family Medicine Office/Clinic Note Chief Complaint The patient presents with difficulty walking due to arthritis and hip pain. HPI Staff Una Eugenie) is an 84 year old female presenting for 6month med f/u, htn, thyroid As per [facility]- 02/13/24- lab recheck today Patient is here for follow up on hypertension. How often are you checking your blood pressure? no What are your average readings? _ Yearly BMP: _ Patient is here for follow up on Thyroid Disease. Do you have any of the following symptoms? Change in energy level? yes Weight change? no Heat/cold intolerance? no Hair/skin/nail changes? no Change in bowels? no Last TSH: TSH: 1.34 mcIU/mL (09/18/23 12:10:00) Needs refills on Levothyroxine She would like her A1C checked today also if she can History of Present Illness - The patient is an 84-year-old female presenting with arthritis and hip pain. - Reports difficulty walking due to arthritis and hip pain, with a recommendation for hip replacement surgery by Dr. Hernandez. - Considering surgery timing to align with personal commitments, aiming for recovery before significant events. - Manages hypercholesterolemia, hypothyroidism, and primary hypertension, with stable blood pressure readings. - Blood pressure management: Continued monitoring and medication adherence for primary hypertension. - Thyroid function: Regular monitoring of thyroid levels due to hypothyroidism. - Lipid profile: Monitoring and management of hypercholesterolemia. Review of Systems PHQ Score Initial Depression Screen Score: 0 SCORE Physical Exam Vitals & Measurements T: 36.1 ???C(Oral) HR: 80(Peripheral) RR: 18 BP: 120/60 SpO2: 94% HT: 147.0 cm HT: 58 in WT: 58.2 kg WT: 128.309 lb BMI: 26.93 General: alert, no acute distress ENMT: oral mucosa moist Cardiovascular: Regular rate and rhythm, normal peripheral perfusion Respiratory: Lungs clear to auscultation, respirations non labored Extremities: no deformity, no trauma, patient reports trouble with legs and walking, likely due to arthritis and hip issues Neurological: oriented x 4, level of consciousness appropriate for age, CN II-XII intact, motor strength equal & normal bilaterally, speech normal Abdomen: Soft, Non-tender, Non-distended, + Bowel sounds Assessment/Plan 1. Primary hypertension (I10: Essential (primary) hypertension) - Maintain current antihypertensive regimen with regular blood pressure monitoring. Ordered: Comprehensive Metabolic Panel TSH With T4fr Reflex 2. Hypothyroidism (E03.9: Hypothyroidism, unspecified) - Regular monitoring of thyroid function tests to ensure adequate control. Ordered: Comprehensive Metabolic Panel TSH With T4fr Reflex 3. Hypercholesterolemia (E78.00: Pure hypercholesterolemia, unspecified) - Continue monitoring lipid levels and adherence to prescribed lipid-lowering therapy. Ordered: Comprehensive Metabolic Panel TSH With T4fr Reflex 4. Unspecified osteoarthritis, unspecified site (M19.90) - Plan for hip replacement surgery, considering timing to align with personal commitments and recovery goals. Ordered: Comprehensive Metabolic Panel TSH With T4fr Reflex - 84-year-old female with a history of arthritis presenting with hip pain, impacting mobility and quality of life. - Orthopedic consultation recommended hip replacement surgery, with patient considering timing for optimal recovery. - Manages hypercholesterolemia, hypothyroidism, and primary hypertension, with stable blood pressure readings during the visit. The patient and I discussed the recommendation for hip replacement surgery, considering the timing to optimize recovery and avoid missing personal events. We also reviewed the management of her chronic conditions, including hypercholesterolemia, hypothyroidism, and primary hypertension, emphasizing the importance of regular monitoring and medication adherence. - Consider scheduling hip replacement surgery in late summer or early fall to allow for recovery before significant events. - Continue taking prescribed medications for hypercholesterolemia, hypothyroidism, and hypertension. - Monitor blood pressure regularly and report any significant changes. - Follow up with Dr. Hernandez regarding hip surgery scheduling. Follow-up No qualifying data available Problem List/Past Medical History Ongoing Asthma Cervical spondylosis Diverticular disease Foot deformity Foot drop Hypercholesterolemia Hypothyroidism Knee pain, left Left sciatic nerve pain Lumbar spondylosis Murmur Non-seasonal allergic rhinitis due to pollen Osteoarthritis of hip Osteopenia Post-poliomyelitis muscular atrophy Primary hypertension Restless legs syndrome Right upper quadrant pain Shoulder pain, right Squamous cell carcinoma in situ Steatosis of liver Thoracic spondylosis Historical No qualifying data Procedure/Surgical History Cataracts, Cholecystectomy, Shoulder replace (more content not included)... Normal [facility] Comment on above: Result Comment: Elec tronically Signed By: Francisco BELTRAN, Yaniv Pope\.br\Date and Time Signed: 08/20/24 11:48 EDT TSH With T4fr Reflexon 08-20 TSH Qn 1.36 m[IU]/L Normal 0.34-5.60 [facility] Comment on above: Performed By: #### 1 [id number] #### [facility] [address] [place] [address] eGFRon 08-20-2024 eGFR 87 mL/min/1.73 m2 Normal >=59 [facility] Comment on above: Performed By: #### 1 [id number] #### [facility] [address] [place] [address] Family Medicine Office/Clini c Noteon 08-01-2024 Family Medicine Office/Clinic Note Family Medicine Office/Clinic Note [facility] Staff Una is an 84 year old female presenting for acute visit Onset: Cat Bite Location: right hand Characteristics: scratch and black and blue She said it stings Washed and covered with Neosporin and wearing a sock on it because it is greasy History of Present Illness Here for a bharti bite that happened yesterday. scabbing over. NO erythema, no pain. Review of Systems PHQ Score Initial Depression Screen Score: 0 SCORE Physical Exam Vitals & Measurements T: 36.3 ???C(Oral) HR: 68(Peripheral) RR: 18 BP: 128/80 SpO2: 100% HT: 147.0 cm HT: 58 in WT: 57.8 kg WT: 127.427 lb BMI: 26.75 - L hand shows signs of scratches and minor bite sweeney. Assessment/Plan 1. Cat bite (W55.01XA: Bitten by cat, initial encounter) - Abx sent. Allergy to Augmentin. Using doxy instead. Orders: doxycycline, 100 mg = 1 tab(s), Oral, q12hr, X 7 day(s), # 14 tab(s), Refills(s) 0, Pharmacy: [facility]/pharmacy #[id number], 147, cm, 08/01/24 14:06:00 EDT, Height/Length Dosing, 57.8, kg, 08/01/24 14:06:00 EDT, Weight Dosing Follow-up No qualifying data [...] See Instructions aspirin, 81 mg, Oral, Daily Bromfed DM oral syrup, 5 mL, Oral, QID, PRN candesartan 4 mg Tab, See Instructions, 1 refills celecoxib 200 mg Cap, See Instructions, 1 refills digoxin 125 mcg (0.125 mg) Tab, See Instructions doxycycline hyclate 100 mg Tab, 100 mg= 1 tab(s), Oral, q12hr ICaps AREDS 2, See Instructions levothyroxine 50 [...] Tobacco Use:. Household tobacco concerns: No. Yes, 08/01/2024 Family History Acute myocardial infarction: Grandparent and Grandparent. Immunizations Vaccine Date Status Comments influenza virus vaccine, inactivated 01/23/2024 Recorded influenza virus vaccine, inactivated 12/14/2022 Recorded SARS-CoV-2 (COVID-19) [id number] 02/10/2022 Recorded influenza virus vaccine, inactivated 12/27/2021 [...] Recorded influenza, whole 01/17/2005 Recorded Normal [facility] Comment on above: Result Comment: Elec tronically Signed By: Francisco BELTRAN, Yaniv Sanabria.br\Date and Time Signed: 08/01/24 14:24 EDT Office Visiton 07-24-2024 Follow-up visit [id number] Una Gomez 1940 F Date Provider Department Center 07/24/2024 [facility] PHYS MED [facility] No family history on file Level of Service:92467 MD OFFICE/OUTPATIENT NEW LOW MDM 30 MINUTES (GC) Reason for Visit and Comments: Hip Pain [338422] - Right Leg Pain [272968] - Right Normal [facility] Optical coherence tomography study reporton 06-26-2024 [facility] Radiology Study observation (narrative) [facility] Ambulatory Visit Summaryon 0 05-20-2024 Ambulatory Visit Summary Ambulatory Visit Summary UNA [...] PM EDT With: Yaniv Singh MD Where: [address] [address]- Monday 11:00 AM EDT With: Where: [address] [address]- Medications What How Much When Instructions Unchanged [...] for choosing us for your care. Normal [facility] Medicine Office/Clini c Noteon 05-20-2024 Family Medicine Office/Clinic Note Family Medicine Office/Clinic Note HPI Staff Una is a 84 [...] day(s), # 6 tab(s), Refills(s) 0, Pharmacy: [facility]/pharmacy #[id number], 147, cm, 05/20/24 10:52:00 EDT, Height/Length Dosing, 58.5, kg, 05/20/24 10:52:00 EDT, Weight Dosing brompheniramine/dextromet horphan/PSE, 5 mL, Oral, QID for cough and congestion, 200 mL, Refill(s) 0, [facility]/pharmacy #[id number], 147, cm, 05/20/24 10:52:00 EDT, Height/Length Dosing, 58.5, kg, 05/20/24 10:52:00 EDT, Weight Dosing methylPREDNISolone, = 1 packet(s), Oral, As Directed, as directed on package labeling, X 6 day(s), # 21 tab(s), Refills(s) 0, Pharmacy: [facility]/pharmacy #[id number], 147, cm, 05/20/24 10:52:00 EDT, Height/Length Dosing, 58.5, kg, 05/20/24 10:52:00 EDT, Weight Dosing 2. Cough, (R05.9: Cough, unspecified)Cough covid and flu both negative Ordered: azithromycin, = 1 packet(s), Oral, As Directed, as directed on package labeling, X 5 day(s), # 6 tab(s), Refills(s) 0, Pharmacy: [facility]/pharmacy #[id number], 147, cm, 05/20/24 10:52:00 EDT, Height/Length Dosing, 58.5, kg, 05/20/24 10:52:00 EDT, Weight Dosing brompheniramine/dextromet horphan/PSE, 5 mL, Oral, QID for cough and congestion, 200 mL, Refill(s) 0, [facility]/pharmacy #[id number], 147, cm, 05/20/24 10:52:00 EDT, Height/Length Dosing, 58.5, kg, 05/20/24 10:52:00 EDT, Weight Dosing methylPREDNISolone, = 1 packet(s), Oral, As Directed, as directed on package labeling, X 6 day(s), # 21 tab(s), Refills(s) 0, Pharmacy: [facility]/pharmacy #[id number], 147, cm, 05/20/24 10:52:00 EDT, Height/Length Dosing, 58.5, kg, 05/20/24 10:52:00 EDT, Weight Dosing Influenza Type A&B POC 54574 Rapid COVID POC 97691 3. BMI 27.0-27.9,adult (Z68.27: Body mass index [BMI] 27.0-27.9, adult) BMI education given Ordered: azithromycin, = 1 packet(s), Oral, As Directed, as directed on package labeling, X 5 day(s), # 6 tab(s), Refills(s) 0, Pharmacy: [facility]/pharmacy #[id number], 147, cm, 05/20/24 10:52:00 EDT, Height/Length Dosing, 58.5, kg, 05/20/24 10:52:00 EDT, Weight Dosing brompheniramine/dextromet horphan/PSE, 5 mL, Oral, QID for cough and congestion, 200 mL, Refill(s) 0, [facility]/pharmacy #[id number], 147, cm, 05/20/24 10:52:00 EDT, Height/Length Dosing, 58.5, kg, 05/20/24 10:52:00 EDT, Weight Dosing methylPREDNISolone, = 1 packet(s), Oral, As Directed, as directed on package labeling, X 6 day(s), # 21 tab(s), Refills(s) 0, Pharmacy: [facility]/pharmacy #[id number], 147, cm, 05/20/24 10:52:00 EDT, Height/Length Dosing, 58.5, kg, 05/20/24 10:52:00 EDT, Weight Dosing 4. Non-smoker (Z78.9: Other specified health status) continue not smoking Ordered: azithromycin, = 1 packet(s), Oral, As Directed, as directed on package labeling, X 5 day(s), # 6 tab(s), Refills(s) 0, Pharmacy: [facility]/pharmacy #[id number], 147, cm, 05/20/24 10:52:00 EDT, Height/Length Dosing, 58.5, kg, 05/20/24 10:52:00 EDT, Weight Dosing brompheniramine/dextromet horphan/PSE, 5 mL, Oral, QID for cough and congestion, 200 mL, Refill(s) 0, [facility]/pharmacy #[id number], 147, cm, 05/20/24 10:52:00 EDT, Height/Length Dosing, 58.5, kg, 05/20/24 10:52:00 EDT, Weight Dosing methylPREDNISolone, = 1 packet(s), Oral, As Directed, as directed on package labeling, X 6 day(s), # 21 tab(s), Refills(s) 0, Pharmacy: [facility]/pharmacy #[id number], 147, cm, 05/20/24 10:52:00 EDT, Height/Length Dosing, 58.5, kg, 05/20/24 10:52:00 EDT, Weight Dosing Orders: levothyroxine, See Instructions, TAKE 1 TABLET BY MOUTH EVERY DAY, # 90 tab(s), Refills(s) 1, Pharmacy: [facility]/pharmacy #[id number], 147, cm, 05/20/24 10:52:00 EDT, Height/Length Dosing, 58.5, (more content not included)... Normal [facility] Comment on above: Result Comment: Elec tronically Signed By: Yun CUMMINGS, Marlee Cortés\.br\Date and Time Signed: 05/20/24 11:06 EDT Ambulatory Visit Summaryon 0 05-13-2024 Ambulatory Visit Summary Ambulatory Visit Summary UNA [...] EDT With: Francisco BELTRAN, Yaniv Pope Where: [address] [address]- Monday 11:00 AM EDT With: Where: [address] [address]- Medications What How Much When Instructions Unchanged [...] for choosing us for your care. Normal [facility] Family Medicine Office/Clini c Noteon 05-13-2024 Family Medicine Office/Clinic Note Family Medicine Office/Clinic Note Chief Complaint Foot pain The patient presents with pain in the right pinky toe, which is now growing underneath the adjacent toe. HPI Staff Una is a 84 year old female presenting with Pain characteristics: Pain location: right foot. Little toe. Intensity:10/10 Onset: Has been ongoing for yrs. This [...] for suitable footwear, though contact with [facility] could not currently be made due [...] her footwear needs, I advised contacting [facility] as soon as they resume operations, [...] Daily candesartan 4 mg Tab, See Instructions, (more content not included)... Normal [facility] Comment on above: Result Comment: Elec tronically Signed By: Francisco BELTRAN, Yaniv Pope\.br\Date and Time Signed: 05/13/24 13:49 EDT X-ray reportOrdered By: Danielle Jarrett on 05-08-2024 Study report [facility] [address] [place] [address] XRay Report Signed Patient: Una Gomez MR#: [id number] : 1940 Acct:[id number] Age/Sex: 84 / F ADM Date: 5 Loc: [facility] Room: Type: [facility] Attending Dr: Fred Hernandez II, MD Copies to: Fred Hernandez MD~ Ordering Provider: Fred Hernandez MD Date of [...] Nory Jarrett M.D.05/08/2024 4:04 PM Dictation Location: [place] [address] Transcribed By: [facility] 05/08/24 1604 Dictated By: Nory Jarrett MD 05/08/24 160 Signed By: 05/08/24 160 [facility] Work Phone: XR hip RT min 2V(w/wo pelvis )*on 05-08-2024 XR hip RT min 2V(w/wo pelvis)* [facility] [address] [place] [address] XRay Report Signed Patient: Una Gomez MR#: [id number] : 1940 Acct:[id number] Age/Sex: 84 / F ADM Date: 05/08/24 Loc: [facility] Room: Type: [facility] Attending Dr: Fred Hernandez II, MD Copies [...] Nory Jarrett M.D.05/08/2024 4:04 PM Dictation Location: [place] [address] Transcribed By: NURYS 05/08/24 1604 Dictated By: Nory Jarrett MD 05/08/24 1602 Signed By: 05/08/24 1604 Normal [facility] Family Medicine Office/Clini c Noteon 04-08-2024 Family [...] home and fear of being dizzy. Ordered: [facility] External Ambulatory Referral 2. BMI 27.0-27.9,adult (Z68.27: Body mass index [BMI] 27.0-27.9, adult) Monitor weight and provide guidance on maintaining a healthy BMI through balanced diet and exercise, as discussed with the patient. Ordered: [facility] External Ambulatory Referral 3. Overweight (BMI 25.0-29.9) (E66.3: Overweight) Reinforce healthy lifestyle modifications, including diet and physical activity, to maintain or reduce weight and improve overall health, considering the patient's age and mobility status. Ordered: [facility] External Ambulatory Referral 4. 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 Ordered: [facility] External Ambulatory Referral 5. 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 Continuation of current routine, with consideration for orthopedic assessment if functional concerns arise. Ordered: [facility] External Ambulatory Referral 6. Nonsmoker (Z78.9: Other [...] including Tylen (more content not included)... Normal [facility] Comment on above: Result Comment: Elec tronically Signed By: Yaniv Singh MD\.br\Date and Time Signed: 04/08/24 11:14 EST Optical coherence tomography study reporton 02-21-2024 [facility] Radiology Study observation (narrative) [facility] Ambulatory Visit Summaryon 1 04-15-2023 Ambulatory Visit Summary Ambulatory Visit Summary UNA GOMEZ :1940 Visit Date:02/13/2024 Ambulatory Visit Instructions Your Diagnosis Primary hypertension Hypothyroidism BMI 27.0-27.9,adult Overweight Nonsmoker Osteoarthritis of hip Left sciatic nerve pain Post-poliomyelitis muscular atrophy Nasal congestion Your Care Team Attending Physician - Yaniv Singh MD Primary Care Physician - Yaniv Snigh MD This Is Your Medications List acetaminophen [...] Monday 1:00 PM EDT With: Francisco BELTRAN, Ynaiv Pope Where: [address] [address]- Monday 11:00 AM EDT With: Where: [address] [address]- Medications What How Much When Why Instructions New methylPREDNISolone (Medrol Dosepack 4 mg Tab) 1 Packets By Mouth As Directed Primary hypertension Hypothyroidism BMI 27.0-27.9,adult Overweight Nonsmoker Osteoarthritis of hip Left sciatic nerve pain Post-poliomyelitis muscular atrophy Nasal congestion Duration: 6 Days as directed on package labeling Pickup at [facility]/pharmacy #[id number] Unchanged acetaminophen (Tylenol Extra Strength) 500 Milligram [...] TABLET BY MOUTH EVERY DAY Pharmacy Information [facility]/pharmacy #6177: [address], [place] [phone] Allergies Augmentin (Unknown) Diflucan (Unknown) sulfa drugs [...] for choosing us for your care. Normal [facility] Family Medicine Office/Clini c Noteon 02-13-2024 [...] day(s), # 21 tab(s), Refills(s) 0, Pharmacy: [facility]/pharmacy #6177, 147, cm, 02/13/24 10:53:00 EST, Height/Length [...] day(s), # 21 tab(s), Refills(s) 0, Pharmacy: [facility]/pharmacy #6177, 147, cm, 02/13/24 10:53:00 EST, Height/Length [...] day(s), # 21 tab(s), Refills(s) 0, [facility], 147, cm, 02/13/24 10:53:00 EST, Height/Length [...] day(s), # 21 tab(s), Refills(s) 0, Pharmacy: [facility]/pharmacy #6177, 147, cm, 02/13/24 10:53:00 EST, Height/Length [...] (Most Recent (more content not included)... Normal [facility] Comment on above: Result Comment: Elec tronically Signed By: Francisco BELTRAN, Yaniv Pope\.br\Date and Time Signed: 02/13/24 11:19 EST Ambulatory Visit Summaryon 1 03-17-2023 Ambulatory Visit Summary Ambulatory Visit Summary UNA GOMEZ :1940 Visit Date:01/16/2024 Ambulatory Visit Instructions Your Diagnosis Cellulitis Left sciatic nerve pain Post-poliomyelitis muscular atrophy Overweight (BMI 25.0-29.9) Nonsmoker Body mass index [BMI] 28.0-28.9, adult Your Care Team Attending Physician - Yaniv Singh MD. Primary Care Physician - Yaniv Singh MD [...] EST With: Francisco BELTRAN, Yaniv Pope Where: [address] [address]- Monday 11:00 AM EDT With: Where: [address] [address]- Medications What How Much When Why Instructions New methylPREDNISolone (Medrol Dosepack 4 mg Tab) 1 Packets By Mouth As Directed Cellulitis Left sciatic nerve pain Duration: 6 Days as directed on package labeling Pickup at [facility]/pharmacy #2121 Unchanged acetaminophen (Tylenol Extra Strength) 500 Milligram [...] Nonsmoker Pharmacy Information [facility]pharmacy #6177: [address], [place] [phone] Allergies Augmentin (Unknown) Diflucan (Unknown) sulfa drugs [...] weight is (more content not included)... Normal [facility] Family Medicine Office/Clini c Noteon 01-16-2024 [...] day(s), # 21 tab(s), Refills(s) 0, Pharmacy: [facility]/pharmacy #6177, 147, cm, 01/16/24 11:11:00 EST, Height/Length [...] day(s), # 21 tab(s), Refills(s) 0, Pharmacy: [facility]/pharmacy #6177, 147, cm, 01/16/24 11:11:00 EST, Height/Length [...] virus vaccine, inactivated 12/14/2022 Recorded SARS-CoV-2 (COVID-19) mRNAMUL.ORD![id number] 02/10/2022 Recorded influenza virus vaccine, inactivated 12/27/2021 Recorded SARS-CoV-2 (COVID-19) mRNA-1273 vaccine 03/17/2021 Recorded 2022-07-04: TPV80 influenza virus vaccine, inactivated 02/10/2021 Recorded pneumococcal 23-valent vaccine 09/11/2020 Recorded SARS-CoV-2 (COVID-19) mRNA-1273 vaccine 05/05/2020 Recorded SARS-CoV-2 (COVID-19) mRNA-1273 vaccine 04/07/2020 Recorded pne (more content not included)... Normal [facility] Comment on above: Result Comment: Elec [...] No. Ye (more content not included)... Normal [facility] Comment on above: Result Comment: Elec tronically Signed By: Yaniv Singh MD\.br\Date and Time Signed: 01/08/24 14:52 EST Ambulatory [...] AM EST With: Yaniv Singh MD Where: [facility] [address] [address]- Monday 11:00 AM EDT With: Where: [facility] [place] [address] [place] [address]- Medications What How Much When Why Instructions New triamcinolone topical (triamcinolone Top 0.1% Crm 15 gram) 1 Application Topical 3 times a day BMI 27.0-27.9,adult Overweight with body mass index (BMI) of 27 to 27.9 in adult Nonsmoker Pickup at [facility]/pharmacy #6177 Unchanged acetaminophen (Tylenol Extra Strength) 500 [...] By Mouth Every 12 hours Pickup at [facility]/pharmacy #6177 Unchanged digoxin (digoxin 125 mcg (0.125 [...] TABLET BY MOUTH EVERY DAY Pharmacy Information [facility]/pharmacy #6177: [address], [place] [phone] Allergies Augmentin (Unknown) Diflucan (Unknown) sulfa drugs [...] for choosing us for your care. Normal [facility] Family Medicine Office/Clini c Noteon 01-03-2024 [...] q12hr, # 20 cap(s), Refills(s) 0, Pharmacy: [facility], 147, cm, 01/03/24 11:43:00 EDT, [...] virus vaccine, inactivated 12/14/2022 Recorded SARS-CoV-2 (COVID-19) mRNAMUL.ORD![id number] 12/ (more content not included)... Normal [facility] Comment on above: Result Comment: Elec tronically Signed By: Marlee Martinez\.br\Date and Time Signed: 01/03/24 12:21 EDT 36on 12-12-2023 36 Regarding dig level from 12/11/2023: Melissa Rodrigez, FRANSISCO Clarke MA Please let her know her digoxin level looks good. Thanks Patient informed. Normal [facility] CHEMISTRYOrdered By: SYSTEM SYSTEM on 12-11-2023 Digoxin Lvl 0.6 ng/mL Normal 0.5 - 1.9 ng/mL Remisol Chem Digoxinon 12-11-2023 Digoxin Lvl 0.6 ng/mL Normal 0.5-1.9 [facility] Comment on above: Performed By: #### 2 [id number] ####[facility] [id number] [place] [address] Office Visiton 11-30-2023 Follow-up visit [id number] Una Gomez 1940 F Date Provider Department Center 11/30/2023 [facility]-MELISSA RODRIGEZ CARD [facility] No family history on file Level of Service:33233 MD OFFICE/OUTPATIENT ESTABLISHED LOW MDM 20 MIN [facility] Optical coherence tomography study reporton 11-20-2023 [facility] Radiology Study observation (narrative) [facility] Ambulatory Visit Summaryon 0 09-19-2023 Ambulatory Visit [...] EST With: Francisco BELTRAN, Yaniv Pope Where: [place] [id number]- \.br\ Medications\.br \ What How Much When Instructions\.b r\ Unchanged acetaminophen (Tylenol Extra Strength) 500 Milligram [...] physician if questions or concerns \.br\ Unchanged budesonide-form oterol (Symbicort) 80/4.5 Inhalation 2 times a day [...] are currently receiving treatment for.\.br\ Asthma\.br\ Cervical spondylosis\.br \ Diverticular disease\.br\ Foot drop\.br\ Hypercholestero lemia\.br\ Hypothyroidism\ .br\ Knee pain, left\.br\ Left sciatic nerve pain\.br\ Lumbar spondylosis\.br \ Murmur\.br\ Nasal congestion\.br\ Non-seasonal allergic rhinitis due to pollen\.br\ Osteoarthritis of hip\.br\ Osteopenia\.br\ Over weight\.br\ Post-poliomyeli tis muscular atrophy\.br\ Primary hypertension\.b r\ Restless legs syndrome\.br\ Right upper quadrant pain\.br\ Shoulder pain, right\.br\ Squamous cell carcinoma in situ\.br\ Steatosis of liver\.br\ Thoracic spondylosis\.br \ Patient Survey\.br\ You may receive a survey via text or e-mail asking about your office visit. Please share your experience with us by completing your survey. We appreciate your feedback and thank you for choosing us for your care.\.br\ \.br\ [facility] Medicine Office/Clini c Noteon 09-19-2023 Family [...] to not smoke. Orders: Lab Specimen Collect 70132 Lipid Panel Follow-up No qualifying data available [...] virus vaccine, inactivated 12/14/2022 Recorded SARS-CoV-2 (COVID-19) mRNAMUL.ORD![id number] 02/10/2022 Recorded influenza virus vaccine, inactivated 12/27/2021 Recorded SARS-CoV-2 (COVID-19) mRNA-1273 vaccine 03/17/2021 Recorded 2022-07-04: TPV80 influenza virus vaccine, inactivated 02/10/2021 Recorded pneumoco (more content not included)... Normal [facility] Comment on above: Result Comment: Elec tronically Signed By: Francisco BELTRAN, Yaniv Pope\.br\Date and Time Signed: 09/19/23 10:30 EDT CHEMISTRYOrdered By: SYSTEM SYSTEM on 09-18-2023 Albumin [Mass/Vol] 4.5 g/dL Normal 3.3 - 5.0 gm/dL R emisol Chem Albumin/Globulin [Mass ratio] 1.6 {ratio} Normal [...] Calcium [Mass/Vol] 9.4 mg/dL Normal 8.9 - 11. 1 mg/dL Remisol Chem Chloride [Moles/Vol] 105 mmol/L [...] Remisol Chem eGFR 84 mL/min/1.73 m2 Normal >=59mL/min /1.73 m2 Remisol Chem Globulin (S) [Mass/Vol] 2.8 g/dL Normal 1.4 - 4.0 gm/dL Remisol Chem Glucose [Mass/Vol] 96 mg/dL Normal 55 - 199 mg/dL Re misol Chem Potassium [Moles/Vol] 4.1 mmol/L Normal 3.5 - 5.3 mmol/L Remisol Chem Protein [Mass/Vol] 7.3 g/dL Normal 6.0 - 7.8 gm/dL R emisol Chem Sodium [Moles/Vol] 137 mmol/L Normal 135 - 145 mmol/L Remisol Chem Triglyceride [Mass/Vol] 142 mg/dL Normal <=149mg/dL Remisol Chem TSH Qn 1.34 m[IU]/L Normal 0.34 - 5.60 mcIU/mL Remisol Chem Urea nitrogen [Mass/Vol] 19 mg/dL Normal 5 - 21 mg/dL Remisol Chem Urea nitrogen/Creatinine [Mass ratio] 27 mg/mg High 10 - 20 Remisol Chem CMPon 09-18-2023 Albumin [Mass/Vol] 4.5 g/dL Normal 3.3-5.0 [facility] Comment on above: Performed By: #### 2 [id number] #### [facility] [address] [place] [address] Albumin/Globulin (S) [Mass conc ratio] 1.6 Normal 1.1-2.2 [facility] Comment on above: Performed By: #### 2 [id number] #### [facility] [address] [place] [address] ALP [Catalytic activity/Vol] 81 Int._Unit/L Normal 21-98 [facility] Comment on above: Performed By: #### 2 769257 #### [facility] [address] [place] [address] ALT No additional P-5'-P [Catalytic activity/Vol] 23 Int._Unit/L Normal 6-46 [facility] Comment on above: Performed By: #### 2 574219 #### [facility] [address] [place] [address] Anion gap [Moles/Vol] 11 mmol/L Normal 6-16 [facility] Comment on above: Performed By: #### 2 003717 #### [facility] [address] [place] [address] AST [Catalytic activity/Vol] 25 Int._Unit/L Normal 5-43 [facility] Comment on above: Performed By: #### 2 090579 #### [facility] [address] [place] [address] Bilirubin [Mass/Vol] 1.4 mg/dL High 0.0-1.1 [facility] Comment on above: Performed By: #### 2 655043 #### [facility] [address] [place] [address] Calcium [Mass/Vol] 9.4 mg/dL Normal 8.9-11.1 [facility] Comment on above: Performed By: #### 2 643786 #### [facility] [address] [place] [address] Chloride [Moles/Vol] 105 mmol/L Normal 101-111 [facility] Comment on above: Performed By: #### 2 780598 #### [facility] [address] [place] [address] CO2 [Moles/Vol] 25 mmol/L Normal 21-31 [facility] Comment on above: Performed By: #### 2 183686 #### [facility] [address] [place] [address] Creatinine [Mass/Vol] 0.7 mg/dL Normal 0.5-1.3 [facility] Comment on above: Performed By: #### 2 763360 #### [facility] [address] [place] [address] Globulin (S) [Mass/Vol] 2.8 g/dL Normal 1.4-4.0 [facility] Comment on above: Performed By: #### 2 759431 #### [facility] [address] [place] [address] Glucose [Mass/Vol] 96 mg/dL Normal 55-199 [facility] Comment on above: Performed By: #### 2 603124 #### [facility] [address] [place] [address] Potassium [Moles/Vol] 4.1 mmol/L Normal 3.5-5.3 [facility] Comment on above: Performed By: #### 2 395648 #### [facility] [address] [place] [address] Protein [Mass/Vol] 7.3 g/dL Normal 6.0-7.8 [facility] Comment on above: Performed By: #### 2 608686 #### [facility] [address] [place] [address] Sodium [Moles/Vol] 137 mmol/L Normal 135-145 [facility] Comment on above: Performed By: #### 2 584414 #### [facility] [address] [place] [address] Urea nitrogen [Mass/Vol] 19 mg/dL Normal 5-21 [facility] Comment on above: Performed By: #### 2 163948 #### [facility] [address] [place] [address] Urea nitrogen/Creatinine [Mass ratio] 27 No Units High 10-20 [facility] Comment on above: Performed By: #### 2 676077 #### [facility] [address] [place] [address] Lipid Panelon 09-18-2023 Cholesterol [Mass/Vol] 105 mg/dL Low 120-200 [facility] Comment on above: Performed By: #### 2 [id number] #### [facility] [address] [place] [address] Cholesterol in HDL [Mass/Vol] 32 mg/dL Invalid Interpretation Code [facility] Comment on above: Result Comment: '>= 60 LOW RISK' '<= 40 HIGH RISK' Performed By: #### 2 937266 #### [facility] [address] [place] [address] Cholesterol in LDL [Mass/Vol] 60 mg/dL Normal <=129 [facility] Comment on above: Performed By: #### 2 033653 #### [facility] [address] [place] [address] Cholesterol in VLDL [Mass/Vol] 28 mg/dL Normal 7-40 [facility] Comment on above: Performed By: #### 2 636274 #### [facility] [address] [place] [address] Triglyceride [Mass/Vol] 142 mg/dL Normal <=149 [facility] Comment on above: Performed By: #### 2 393314 #### [facility] [address] [place] [address] TSH With T4fr Reflexon 09-17 TSH Qn 1.34 m[IU]/L Normal 0.34-5.60 [facility] Comment on above: Performed By: #### 1 [id number] #### [facility] [address] [place] [address] eGFRon 09-18-2023 eGFR 84 mL/min/1.73 m2 Normal >=59 [facility] Comment on above: Order Comment: Order added by Discern Expert. Performed By: #### 1 [id number] #### [facility] [address] [place] [address] Ambulatory Visit Summaryon 0 09-14-2023 Ambulatory Visit [...] Appointments Monday 9:20 AM EDT With: Where: [facility] Invalid Interpretation Code [address] [place] [address]- \.br\ Monday 11:00 AM EDT \.br\ With:\.br\ Where: [facility]3] Medicine Office/Clini c Noteon 09-14-2023 Family Medicine [...] of clutter to prevent tripping and/or falling. [place] Advance Directives reviewed. Documents remain at home [...] PCP visit. Labs to be completed with [facility] Britton on a nurse visit. No concerns [...] is ready she has a really good special population paraprofessional she can talk to and she can [...] she plans to call to hire a street cleaner but has not done it yet. [...] with impo (more content not included)... Normal [facility] Comment on above: Result Comment: Elec tronically Signed By: LEA WALLACE CNP\.br\Date and Time Signed: 09/14/23 15:23 EDT\.br\Electronically Co-Signed By: Brittney Weber LPN\.br\Date and Time Co-Signed: 09/14/23 14:34 EDT CHEMISTRYOrdered By: [employer] SYSTEM on 09-09-2022 Albumin [Mass/Vol] 4.4 g/dL [...] Calcium [Mass/Vol] 9.4 mg/dL Normal 8.9 - 11. 1 mg/dL [facility] Remisol Chloride [Moles/Vol] 104 mmol/L [...] 10 - 20 [facility] Remisol Covid-19 PCR ([facility])on SARS-CoV-2 (COVID-19) RNA JESSIE+probe Ql (Unsp spec) Detected Critically abnormal NOT DETECTED [facility] Comment on above: Result Comment: This test is not yet approved or cleared by the [place] FDA. When there are no FDA-approved or cleared tests available, and other criteria are met, FDA can make tests available under an emergency access mechanism called an Emergency Use Authorization (EUA). The EUA for this test is supported by the [place] of Health and Human Service's declaration that [...] longer be used). Performed By: #### C VDTB #### [facility] [address] [place] [address] [address] Josie Bauman ECHOCARDIO M/2D 07-19-2021 ECHOCARDIO M/2D COMPLETE Patient: UNA GOMEZ Exam Date: 07/19/2021 : 1940 Gender:F Ordering : DR AMAURY MONTERROSO . Admission #: [id number] Family : Order #: [id number] CLICK HERE TO VIEW EXAM ECHOCARDIOGRAM REPORT [...] Area(A2C): 14.80 cm2 Left Atrium Systolic Volume(A2C): 09691 mm3 Mitral Valve MV E to A [...] Naylor M.D. on 07/19/2021 at 18:28 Normal [facility] KNEE LEFT 3 [facility] 07-16-2020 KNEE LEFT 3 [facility] Department of Radiology [address] [place] [phone] Patient Name: UNA GOMEZ : 1940 Sex: F Age: Race: White Pt. Location: Patient Status: D Ordered Date: 07/16/2020 2:00:00 PM Completed Date: 07/16/2020 01:59 PM Requesting Provider: NICOLLE JAY Attending Provider: Report Copy To: Signs & Symptoms: M25.561 Pain in right knee I10 History: [place] Comments: , , , Ordering Provider - NICOLLE JAY MD , Exam: KNEE LEFT 3 [facility] KNEE LEFT 3 [facility] 07/16/2020 1:59 PM SIGNS AND SYMPTOMS: M25.561 [...] disease. No acute findings. Electronically signed: Trell Enciso. Transcribed by: [email or web address], User Resident: TRELL ENCISO Electronically Signed by: TRELL ENCISO @ 07/17/2020 10:46 AM I personally read this/these film(s) with this resident Normal [facility] Comment on above: Order Comment: , , = ========= , Ordering Provider - NICOLLE JAY MD , KNEE RIGHT 3 [facility] KNEE RIGHT 3 [facility] Department of Radiology [address] [place] [phone] Patient Name: UNA GOMEZ : 1940 Sex: F Age: Race: White Pt. Location: Patient Status: D Ordered Date: 07/16/2020 2:00:00 PM Completed Date: 07/16/2020 01:59 PM Requesting Provider: NICOLLE JAY Attending Provider: Report Copy To: Signs & Symptoms: M25.561 Pain in right knee I10 History: [place] Comments: , , , Ordering Provider - [...] and articular surface remodeling. Electronically signed: Trell Enciso. Transcribed by: [email or web address], User Resident: TRELL ENCISO Electronically Signed by: TRELL ENCISO @ 07/17/2020 08:46 AM I personally read this/these film(s) with this resident Normal [facility] Comment on above: Order Comment: , , = ========= , Ordering Provider - NICOLLE JAY MD , HIPS BILATERAL 2 VWS WITH PE LVISon 07-06-2020 HIPS BILATERAL 2 VWS WITH PELVIS [facility] Department of Radiology [address] [place] [phone] Patient Name: UNA GOMEZ : 1940 Sex: F Age: Race: White Pt. Location: Patient Status: O Ordered Date: 07/06/2020 1:25:00 PM Completed Date: 07/06/2020 01:28 PM Requesting Provider: BERTHA MULTANI Attending Provider: BERTHA MULTANI Report Copy To: AMAURY MONTERROSO Signs & Symptoms: M25.551 Pain in right hip I10 History: [place] Comments: evaluate Exam: HIPS BILATERAL 2 VWS [...] changes. Electronically signed: Lincoln Brooke. Transcribed by: [email or web address], User Resident: Electronically Signed by: LINCOLN BROOKE @ 07/06/2020 02:00 PM Normal [facility] Comment on above: Order Comment: evalu ate Operative Reporton Operative Report MR#: [id number] I [facility] Pt. Name: Una Gomez Room #: 6AB [id number] Discharge 04/15/2020 Date: Birthdate: 1940 OPERATIVE REPORT DATE OF SURGERY: 04/14/2020 SURGEON: Bertha Multani MD SENIOR CREDIT ANALYST: Bruno Schafer MD. ANESTHESIA: General with interscalene [...] osteoarthritis of the left shoulder joint with etwj-vy-[id number] as well as severe massive retracted chronic [...] cou (more content not included)... Normal [facility] HEMOGLOBINon 04-14-2020 Hemoglobin (Bld) [Mass/Vol] 12.7 g/dL Normal 12.0-15.0 [facility] Comment on above: Order Comment: No: D o not add to previous draw Performed By: #### 9 [id number] #### [facility] [address] POC GLUCOSE LABon 04-14-2020 Glucose [Mass/Vol] 97 mg/dL Normal 70-100 [facility] Comment on above: Performed By: #### 8 [id number] #### [address] PORTABLE SHOULDER LEFT 2 VWS on 04-14-2020 PORTABLE SHOULDER LEFT 2 VWS [facility] Department of Radiology [address] [place] [id number] Patient Name: UNA GOMEZ : 1940 Sex: F Age: Race: White Pt. Location: [place] [address] Patient Status: I Ordered Date: 04/14/2020 5:10:00 PM Completed Date: 04/14/2020 05:37 PM Requesting Provider: BRUNO SCHAFER Attending Provider: BERTHA MULTANI Report Copy To: Signs & Symptoms: Pain [...] no gross hardware failure Electronically signed: Efrain Cuello. Transcribed by: [email or web address], User Resident: EFRAIN CUELLO Electronically Signed by: EFRAIN CUELLO @ 04/14/2020 06:12 PM I personally read this/these film(s) with this resident Normal [facility] Comment on above: Order Comment: Hardw are Evaluation, in PACU Vital Signs Date Time Vital Sign Value Performing Clinician Facility 09-05-2024 20:05-0400 Body height 137.16 cm Yaniv Singh MD Work Phone: [facility] 09-05-2024 20:05-0400 Body temperature 98.1 [degF] Yaniv Singh MD Work Phone: [facility] 09-05-2024 20:05-0400 Body weight 57 kg Yaniv Singh MD Work Phone: [facility] 09-05-2024 20:05-0400 Diastolic blood pressure 85 mm[Hg] Yaniv Singh MD Work Phone: [facility] 09-05-2024 20:05-0400 Heart rate 75 /min Yaniv Singh MD Work Phone: [facility] 09-05-2024 20:05-0400 Respiratory rate 18 /min Yaniv Singh MD Work Phone: [facility] 09-05-2024 20:05-0400 SaO2% (BldA) [Mass fraction] 94 % Yaniv Singh MD Work Phone: [facility] 09-05-2024 20:05-0400 Systolic blood pressure 176 mm[Hg] Yaniv Singh MD Work Phone: [facility] 09-05-2024 08:48-0400 Body height 147.32 cm Yaniv Singh MD Work Phone: [facility] 09-05-2024 08:48-0400 Body mass index (BMI) [Ratio] 26.5 kg/m2 Yaniv Singh MD Work Phone: [facility] 09-05-2024 08:48-0400 Body weight 57.6 kg Yaniv Singh MD Work Phone: [facility] 09-05-2024 08:48-0400 Diastolic blood pressure 70 mm[Hg] Yaniv Singh MD Work Phone: [facility] 09-05-2024 08:48-0400 Heart rate 74 /min Yaniv Singh MD Work Phone: [facility] 09-05-2024 08:48-0400 Respiratory rate 18 /min Yaniv Singh MD Work Phone: [facility] 09-05-2024 08:48-0400 SaO2% (BldA) [Mass fraction] 97 % Yaniv Singh MD Work Phone: [facility] 09-05-2024 08:48-0400 Systolic blood pressure 122 mm[Hg] Yaniv Singh MD Work Phone: [facility] 08-22-2024 11:18-0400 Body height 149.86 cm Yaniv Singh MD Work Phone: [facility] 08-22-2024 11:18-0400 Body mass index (BMI) [Ratio] 25.8 kg/m2 Yaniv Singh MD Work Phone: [facility] 08-22-2024 11:18-0400 Body weight 58 kg Yaniv Singh MD Work Phone: [facility] 06-11-2024 14:19-0400 Body height 147.3 cm Uli Dolce DPM FACFAS Work Phone: [facility] 06-11-2024 14:19-0400 Body mass index (BMI) [Ratio] 26.33 kg/m2 Uli Dolce DPM FACFAS Work Phone: [facility] 06-11-2024 14:19-0400 Body weight 57.15 kg Uli Dolce DPM FACFAS Work Phone: [facility] 06-11-2024 14:19-0400 Diastolic blood pressure 72 mm[Hg] Uli Dolce DPM FACFAS Work Phone: [facility] 06-11-2024 14:19-0400 Heart rate 67 /min Uli Dolce DPM FACFAS Work Phone: [facility] 06-11-2024 14:19-0400 Systolic blood pressure 124 mm[Hg] Uli Dolce DPM FACFAS Work Phone: [facility] 05-23-2024 14:14-0400 Body height 147.3 cm Uli Dolce DPM FACFAS Work Phone: [facility] 05-23-2024 14:14-0400 Body mass index (BMI) [Ratio] 26.33 kg/m2 Uli Dolce DPM FACFAS Work Phone: [facility] 05-23-2024 14:14-0400 Body weight 57.15 kg Uli Dolce DPM FACFAS Work Phone: [facility] 05-23-2024 14:14-0400 Diastolic blood pressure 74 mm[Hg] Uli Dolce DPM FACFAS Work Phone: [facility] 05-23-2024 14:14-0400 Systolic blood pressure 122 mm[Hg] Uli Dolce DPM FACFAS Work Phone: [facility] 05-08-2024 13:25-0500 Body height 149.86 cm Yaniv Singh MD Work Phone: [facility] 05-08-2024 13:25-0500 Body mass index (BMI) [Ratio] 25.8 kg/m2 Yaniv Singh MD Work Phone: [facility] 05-08-2024 13:25-0500 Body weight 58.05 kg Yaniv Singh MD Work Phone: [facility] 04-10-2024 11:34-0500 Body height 149.86 cm Yaniv Singh MD Work Phone: [facility] 04-10-2024 11:34-0500 Body mass index (BMI) [Ratio] 26 kg/m2 Yaniv Singh MD Work Phone: [facility] 04-10-2024 11:34-0500 Body weight 58.51 kg Yaniv Singh MD Work Phone: [facility] 04-10-2024 11:34-0500 Diastolic blood pressure 70 mm[Hg] Yaniv Singh MD Work Phone: [facility] 04-10-2024 11:34-0500 Heart rate 76 /min Yaniv Singh MD Work Phone: [facility] 04-10-2024 11:34-0500 Systolic blood pressure 139 mm[Hg] Yaniv Singh MD Work Phone: [facility] 02-07-2023 15:15-0500 Body height 149.86 cm Imad Asaad Other [facility] Other 02-07-2023 15:15-0500 Body mass index (BMI) [Ratio] 27.87 kg/m2 Imad Asaad Other [employer] [facility] Other 02-07-2023 15:15-0500 Body weight 62.6 kg Imad Asaad Other [employer] Other 02-07-2023 15:15-0500 Diastolic blood pressure 63 mm[Hg] Imad Asaad Other [employer] Other 02-07-2023 15:15-0500 Systolic blood pressure 129 mm[Hg] Imad Asaad Other [employer] Other 12-13-2022 14:15-0400 Body height 149.86 cm Imad Asaad Other [employer] Other 12-13-2022 14:15-0400 Body mass index (BMI) [Ratio] 29.28 kg/m2 Imad Asaad Other [employer] Other 12-13-2022 14:15-0400 Body weight 65.77 kg Imad Asaad Other [employer] Other 12-13-2022 14:15-0400 Diastolic blood pressure 63 mm[Hg] Imad Asaad Other [employer] Other 12-13-2022 14:15-0400 Systolic blood pressure 140 mm[Hg] Imad Asaad Other [employer] Other Encounters Encounter Date Encounter Type Care Provider Facility Start: 09-09-2025 ambulatory Marlee L Yun Facility: [facility] Britton Start: 02-17-2025 ambulatory Marlee L Yun Facility: [facility] Britton Start: 09-26-2024 End: 09-26-2024 ambulatory Marlee L Yun Facility:[facility] Mercedes diaz Start: 09-25-2024 ambulatory Marlee L Yun Facility: [facility] Britton Start: 09-09-2024 End: 09-09-2024 ambulatory PRODUCTION [employer]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 LEADER Marele L Yun Facility:[facility] [place] [facility] Start: 09-05-2024 End: 09-05-2024 Emergency department patient visit Yaniv Singh MD Work Phone: -Emergency Room Work Phone: Start: 09-05-2024 End: 09-05-2024 ambulatory Yaniv Singh MD Work Phone: [facility] Work Phone: Start: 09-05-2024 End: 09-05-2024 Patient encounter procedure Curtis Morales MD -[facility] Work Phone: Start: 08-29-2024 End: 08-29-2024 ambulatory Marlee Malcolm Facility:[facility] [place] [facility] Start: 08-22-2024 End: 08-22-2024 Patient encounter procedure Fred Mcneil MD -[facility] Start: 08-22-2024 End: 08-22-2024 ambulatory Fred Hernandez II Facility:[facility] Start: 08-22-2024 End: 08-22-2024 Patient encounter procedure Fred Mcneil MD -[facility] Work Phone: Start: 08-20-2024 End: 08-20-2024 Lab Drop off Yaniv Singh [facility] Start: 08-20-2024 End: 08-20-2024 ambulatory Yaniv Singh Facility:[facility] [place] [facility] Start: 08-01-2024 End: 08-01-2024 ambulatory Yaniv Singh Facility:[facility] [place] [facility] Start: 07-24-2024 ambulatory CRISSY morrison [facility] Start: 06-26-2024 End: 06-26-2024 Bamboo flowsheet Ottoniel Louise DO Work Phone: [facility] Start: 06-26-2024 End: 06-26-2024 Bamboo flowsheet Ottoniel Louise DO Work Phone: [facility] Start: 06-26-2024 End: 06-26-2024 ambulatory OTTONIEL LOUISE Not Available Start: 06-11-2024 End: 06-11-2024 Bamboo flowsheet Uli R Dolce DPM FACFAS Work Phone: [facility] Start: 06-11-2024 End: 06-11-2024 Bamboo flowsheet Uli R Dolce DPM FACFAS Work Phone: [facility] Start: 06-11-2024 End: 06-11-2024 Office outpatient visit 15 minutes Uli R Dolce DPM FACFAS Work Phone: [facility] Comment on above: Neoplasm of uncertai n behavior of skin (Primary Dx); Plantar verruca Start: 06-11-2024 End: 06-11-2024 ambulatory ULI R DOLCE Not Available Start: 05-23-2024 End: 05-23-2024 ambulatory ULI R DOLCE Not Available Start: 05-23-2024 End: 05-23-2024 Office outpatient new 30 minutes Uli R Dolce DPM FACFAS Work Phone: [facility] Comment on above: Neoplasm of uncertai n behavior of skin (Primary Dx); Plantar verruca; Pain in right toe(s) Start: 05-20-2024 End: 05-20-2024 ambulatory 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 ZONE LEADER Marlee Malcolm Facility:[facility] [place] [facility] Start: 05-13-2024 End: 05-13-2024 ambulatory Yaniv Singh Facility:[facility] [place] [facility] Start: 05-08-2024 End: 05-08-2024 ambulatory Yaniv Singh MD Work Phone: [facility] Work Phone: Start: 05-08-2024 End: 05-08-2024 Patient encounter procedure Yaniv Singh MD Work Phone: [facility] Work Phone: Start: 04-10-2024 End: 04-10-2024 ambulatory Yaniv Singh MD Work Phone: [facility] Work Phone: Start: 04-10-2024 End: 04-10-2024 Patient encounter procedure Yaniv Singh MD Work Phone: [facility] Work Phone: Start: 04-08-2024 End: 04-08-2024 ambulatory Yaniv Singh Facility:[facility] [place] [facility] Start: 03-05-2024 End: 03-05-2024 Patient encounter procedure Yaniv Singh MD Work Phone: [facility] Work Phone: Start: 03-05-2024 End: 03-05-2024 ambulatory Imad Asaad Facility:[facility] Start: 02-21-2024 End: 02-21-2024 Bamboo flowsheet Ottoniel Louise DO Work Phone: [facility] Start: 02-21-2024 End: 02-21-2024 Bamboo flowsheet Ottoniel Louise DO Work Phone: [facility] Start: 02-21-2024 End: 02-21-2024 ambulatory OTTONIEL LOUISE Not Available Start: 02-13-2024 End: 02-13-2024 ambulatory MD Yaniv Singh Facility:[facility] [place] [facility] Start: 01-22-2024 End: 01-22-2024 Telephone encounter Klaus Mckeon DO Work Phone: [facility] Start: 01-16-2024 End: 01-16-2024 ambulatory Yaniv Singh Facility:[facility] [place] [facility] Start: 01-08-2024 End: 01-08-2024 ambulatory Yaniv Singh Facility:[facility] [place] [facility] Start: 01-03-2024 End: 01-03-2024 ambulatory PRODUCTION ZONE LEADER Marlee Malcolm Facility:[facility] [place] [facility] Start: 12-11-2023 End: 12-11-2023 Lab Drop off MLEISSA A DIONTE [facility] Start: 12-11-2023 End: 12-11-2023 ambulatory MD Yaniv Singh Facility: [facility] Start: 11-30-2023 End: 11-30-2023 ambulatory MELISSA [facility] Start: 11-20-2023 End: 11-20-2023 Bamboo flowsheet Ottoniel Diazer DO Work Phone: [facility] Start: 11-20-2023 End: 11-20-2023 Bamboo flowsheet Ottoniel Diazer DO Work Phone: [facility] Start: 11-20-2023 End: 11-20-2023 ambulatory OTTONIEL LOUISE Not Available Start: 09-19-2023 End: 09-19-2023 ambulatory Yaniv Singh Facility: [facility] Start: 09-18-2023 End: 09-18-2023 Lab Drop off Yaniv Singh [facility] Start: 09-18-2023 End: 09-18-2023 ambulatory MD Yaniv Singh Facility:[facility] Start: 09-14-2023 End: 09-14-2023 ambulatory PRODUCTION ZONE LEADER Marlee Malcolm Facility:[facility] Mercedes diaz Start: 08-02-2023 End: 08-02-2023 ambulatory OTTONIEL LOUISE Not Available Start: 07-19-2023 End: 07-19-2023 ambulatory OTTONIEL BARRIGAHLER Not Available Start: 02-07-2023 End: 02-07-2023 ambulatory Imad Asaad Other [employer] Other Start: 02-07-2023 Office outpatient ne w 45 minutes Imad Asaad [facility] Start: 12-13-2022 End: 12-13-2022 ambulatory Imad Asaad Other [facility] Other Start: 12-13-2022 Office outpatient ne w 45 minutes Imad Gary [facility] Start: 09-09-2022 End: 09-09-2022 Lab Drop off Marlee Malcolm [facility] Start: 06-08-2022 End: 06-09-2022 ambulatory CASEY [...] Evaluation and management of inpatient AMAURY MONTERROSO Facility:[facility] Procedures Date Procedure Procedure Detail Performing Clinician Start: 09-05-2024 Plain X-ray of right shoulder Yaniv Singh MD Work Phone: Start: 08-22-2024 Nasal Screen MRSA/MSSA Yaniv Singh MD Work Phone: Start: 06-26-2024 Computerized ophthal karolyn imaging retina Ottoniel Louise DO Work Phone: Start: 06-26-2024 End: 06-26-2024 Ophth medical xm&eval intermediate estab pt 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 Ottoniel Louise DO Work Phone: Comment on above: Advanced atrophic no nexudative age-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 involvement (Primary Dx); Dry eyes; Blepharitis of upper and lower eyelids of both eyes, unspecified type Start: 05-08-2024 Plain X-ray of right hip Yaniv Singh MD Work Phone: Start: 03-05-2024 Ultrasound elastogra phy of liver Yaniv Singh MD Work Phone: Start: 02-21-2024 Computerized ophthal karolyn imaging retina Ottoniel Louise DO Work Phone: Start: 02-21-2024 End: 02-21-2024 [facility] xm&eval comprhnsv estab pt 1/> 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 Ottoniel Louise DO Work Phone: Comment on above: Advanced atrophic no nexudative age-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 involvement (Primary Dx); Dry eyes; Blepharitis of upper and lower eyelids of both eyes, unspecified type Start: 11-20-2023 Computerized ophthal karolyn imaging retina Ottoniel Mely Louise DO Work Phone: Start: 11-20-2023 End: 11-20-2023 [facility]&eval intermediate estab pt 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 Ottoniel Mely Louise DO Work Phone: Comment on above: Advanced [...] Treatment Date Care Activity Detail Author Start: 09-05-2024 [facility] Start: 06-26-2024 End: 06-26-2024 Patient encounter procedure [facility] Comment on above: Arrived Start: 06-11-2024 End: 06-11-2024 Patient encounter procedure [facility] Comment on above: Arrived Start: 05-08-2024 Plain X-ray of right hip XR hi p RT min 2V(w/wo pelvis)* [facility] Start: 05-08-2024 XR Hip - right 2 Views [facility] Start: 03-05-2024 [facility] Start: 02-21-2024 End: 02-21-2024 Patient encounter procedure [facility] Comment on above: Arrived Start: 11-20-2023 End: 11-20-2023 Patient encounter procedure 11/20/2023 1:30 PM EDT Office Visit [facility] [address] [place] [id number] Ottoniel Louise DO [address] [place] [address] Arrived [facility] Comment on above: Arrived Start: 11-05-2023 Influenza vaccination Influenza Vacc ine (#1) [facility] Patient Education Radiculopathy of the neck and back (including sciatica) [facility] Work Phone: Patient referral [facility] Work Phone: [facility]ansthor[facility] Immunizations Immunization Date Immunization Notes Care Provider Fa cility 01-23-2024 influenza virus vacc ine, unspecified formulation Ottoniel Louise DO Work Phone: [facility] 12-14-2022 influenza virus vacc ine, unspecified formulation Yaniv Singh [facility] 12-08-2022 SARS-CoV-2 (COVID-19 ) [id number].[id number] Marlee Yun [facility] 12-27-2021 influenza virus vacc ine, unspecified formulation Marlee Yun [facility] 03-17-2021 SARS-CoV-2 (COVID-19 ) mRNA-1273 vaccine Marlee Yun [facility] Comment on above: Result Comment: 2022: [id number] 02-10-2021 influenza virus vacc ine, unspecified formulation Marlee Yun [facility] 09-11-2020 pneumococcal polysaccharide vaccine, 23 valent Marlee Yun [facility] 05-05-2020 SARS-CoV-2 (COVID-19 ) mRNA-1273 vaccine Marlee Yun [facility] 04-07-2020 SARS-CoV-2 (COVID-19 ) mRNA-1273 vaccine Marlee Yun [facility] 09-12-2019 pneumococcal conjuga te vaccine, 13 valent Marlee Yun [facility] 02-01-2019 influenza virus vacc ine, unspecified formulation Marlee Yun [facility] 01-30-2018 influenza virus vacc ine, unspecified formulation Marlee Yun [facility] 03-04-2016 influenza virus vacc ine, unspecified formulation Marlee Yun [facility] 03-18-2015 influenza virus vacc ine, unspecified formulation Marlee Yun [facility] 01-17-2005 influenza, whole Marlee Yun [facility] Payers Date Payer Category Payer Self-pay 2021 Medicaid [id number] 2021 Medicare [id number] 1959 Medicare [id number] 1940 Unknown [id number] 2.16.8 40.1.244528.3.579.2.647 1940 Unknown [id number] 2.16.84 0.1.074303.3.579.2.593 1940 Unknown [id number] 2.16.84 0.1.198249.3.579.2.593 1938 Unknown [id number] 2.16.84 0.1.299818.3.579.2.593 1938 Unknown [id number] 2.16.84 0.1.593966.3.579.2.593 1938 Unknown [id number] 2.16.84 0.1.377472.3.579.2.593 1938 Unknown [id number] 2.16.84 0.1.431957.3.579.2.593 1938 Unknown [id number] 2.16.84 0.1.062481.3.579.2.593 1938 Unknown [id number] 2.16.84 0.1.987453.3.579.2.593 1938 Unknown [id number] 2.16.8 40.1.309121.3.579.2.727 1938 Unknown [id number] 2.16.8 40.1.272488.3.579.2.727 1938 Unknown [id number] 2.16.8 40.1.516232.3.579.2.727 1938 Unknown [id number] 2.16.84 0.1.990774.3.579.2.1259 1938 Unknown [id number] 2.16.84 0.1.109998.3.579.2.1259 1938 Unknown [id number] 2.16.84 0.1.947072.3.579.2.125 1938 Unknown [id number] 2.16.84 0.1.049460.3.579.2.1259 1938 Unknown [id number] 2.16.84 0.1.075892.3.579.2.125 1938 Unknown [id number] 2.16.84 0.1.983693.3.579.2.1259 1938 Unknown [id number] 2.16.84 0.1.519614.3.579.2.125 1938 Unknown [id number] 2.16.8 40.1.031566.3.579.2.72 1938 Unknown [id number] 2.16.8 40.1.344198.3.579.2. 1938 Unknown [id number] 2.16.8 40.1.954522.3.579.2.72 1938 Unknown [id number] 2.16.8 40.1.499706.3.579.2.72 1938 Unknown [id number] 2.16.8 40.1.283257.3.579.2.72 1938 Unknown [id number] 2.16.8 40.1.969510.3.579.2. 1938 Unknown [id number] 2.16.8 40.1.927714.3.579.2.72 1938 Unknown [id number] 2.16.8 40.1.959318.3.579.2. 1938 Unknown [id number] 2.16.8 40.1.376687.3.579.2.727 1938 Unknown [id number] 2.16.8 40.1.403944.3.579.2.727 1938 Unknown [id number] 2.16.8 40.1.822543.3.579.2.727 1938 Unknown [id number] 2.16.8 40.1.715710.3.579.2.727 1938 Unknown [id number] 2.16.8 40.1.750801.3.579.2.727 1938 Unknown [id number] 2.16.8 40.1.450972.3.579.2.727 1938 Unknown [id number] 2.16.8 40.1.533417.3.579.2.727 1938 Unknown [id number] 2.16.8 40.1.721612.3.579.2.727 1938 Unknown [id number] 2.16.8 40.1.903170.3.579.2.727 1938 Unknown [id number] 2.16.8 40.1.857741.3.579.2.727 1938 Unknown [id number] 2.16.8 40.1.921473.3.579.2.727 1938 Unknown [id number] 2.16.8 40.1.547503.3.579.2.727 1938 Unknown [id number] 2.16.8 40.1.099135.3.579.2.727 Private Health Insurance [id number] Unknown [id number] 2.16.8 40.1.651533.3.579.2.531 Unknown [id number] 2.16.8 40.1.747667.3.579.2.531 Unknown [id number] 2.16.8 40.1.690207.3.579.2.531 Unknown [id number] 2.16.8 40.1.645354.3.579.2.531 Unknown [id number] 2.16.8 40.1.771245.3.579.2.531 Social History Date Type Detail Facility Start: 09-08-2022 End: 09-05-2024 Tobacco smoking status Never smoked tobacco (finding) [facility] Tobacco smoking status Never [facility] Start: 08-02-2023 End: 06-11-2024 Sex Assigned At Female [facility] Start: 09-19-2022 Tobacco use and exposure Smokeless tobacco non-user [facility] Start: 08-02-2023 End: 06-26-2024 Alcoholic beverage intake Lifetime non-drinker (finding) [facility] Start: 08-02-2023 End: 06-11-2024 History of Social function [facility] Start: 12-07-2022 Alcohol Comment caffeine: 1-2 cups per day [facility] Start: 1940 Sex assigned at Female N [facility] Start: 11-16-2022 Gender identity Identifies as female gender (finding) [facility] Tobacco smoking stat us NHIS Unknown if ever smoked [facility] Work Phone: Start: 05-28-2018 End: 04-10-2024 Sex Female (finding) [facility] Sexual Orientation [facility] NEGATED: Highlighted rowStart: NINF History of tobacco use Passive smoker [facility] Clinical Notes 04-22-2020 to 09-26-2024 Note Date & Type Note Facility 09-26-2024 Note Nurse Consultation N ote Reason for Visit Pt presents today for lab draw. Assessment/Plan 1. Hypercholesterolemia (E78.00: Pure hypercholesterolemia, unspecified) Medications Albuterol (Eqv-ProAir HFA) 90 mcg/inh inhalation aerosol, See Instructions aspirin, 81 mg, Oral, Daily candesartan 4 mg Tab, See Instructions, 4 refills celecoxib 200 mg Cap, See Instructions, 1 refills digoxin 125 mcg (0.125 mg) Tab, See Instructions levothyroxine 50 mcg (0.05 mg) Tab, See Instructions, 1 refills meclizine 25 mg Tab, 25 mg= 1 tab(s), Oral, q8hr methylPREDNISolone 4 mg tab dosepak, 1 packet(s), Oral, Once metoprolol succinate 25 mg ER Tab, 25 mg= 1 tab(s), Oral, Bedtime, 3 refills montelukast 10 mg Tab, See Instructions spironolactone 25 mg Tab, See Instructions, 4 refills Symbicort, 80/4.5, Inhalation, BID Tums, Chewed, Daily Tylenol Extra Strength, 500 mg, Oral, BID, PRN Vitamin D 50,000 intl units (1.25 mg) oral capsule, 49000 International_Unit= 1 cap(s), Oral, 2x/Wk, 3 refills Allergies Augmentin (Unknown) Diflucan (Unknown) sulfa drugs (Unknown) traMADol (Unknown) Immunizations Vaccine Date Status Comments influenza virus vaccine, inactivated 01/23/2024 Recorded influenza virus vaccine, inactivated 12/14/2022 Recorded SARS-CoV-2 (COVID-19) [id number] 02/10/2022 Recorded influenza virus vaccine, inactivated 12/27/2021 [...] inactivated 03/18/2015 Recorded influenza, whole 01/17/2005 Recorded [facility] 09-09-2024 Note Patient Education Emergency Medicine Heart Attack A heart attack occurs when blood and oxygen supply to the heart is cut off. A heart attack can cause damage to the heart that cannot be fixed. A heart attack is also called a myocardial infarction, or NV. If you think you are having a heart attack, do not wait to see if the symptoms will go away. Get medical help right away. What are the causes? This condition may be caused by: ??? A fatty substance (plaque) in the blood vessels (arteries). This can block the flow of blood to the heart. ??? A blood clot in the blood vessels that go to the heart. The blood clot blocks blood flow. ??? An abnormal heartbeat. ??? Some diseases, such as problems in red blood cells (anemia)orproblems in breathing (respiratory failure). ??? Tightening (spasm) of a blood vessel that cuts off blood to the heart. ??? A tear in a blood vessel of the heart. Other causes may include: ??? Using drugs such as cocaine or methamphetamine. ??? Low blood pressure. What increases the risk? Aging. The risk gets higher as you get older. ??? Having a personal or family history of chest pain, heart attack, stroke, or narrowing of the arteries in the legs, arms, head, or stomach (peripheral vascular disease). ??? Having taken chemotherapy or immune-suppressing medicines. ??? Being male. ??? Being overweight or obese. ??? Having any of these conditions: ? High blood pressure. ? High cholesterol. ? Diabetes. ??? Making lifestyle choices such as: ? Drinking too much alcohol. ? Not getting regular exercise. ? Smoking. What are the signs or symptoms? Chest pain. It may feel like: ? Crushing or squeezing. ? Tightness, pressure, fullness, or heaviness. ??? Pain in the arm, neck, jaw, back, or upper body. ??? Heartburn. ??? Upset stomach (indigestion). ??? Shortness of breath. ??? Feeling like you may vomit (nauseous). ??? Cold sweats. ??? Sudden light-headedness, dizziness, or passing out. ??? Feeling tired. How is this treated? A heart attack must be treated as soon as possible. Treatment may include: ??? Medicines to: ? Break up or dissolve blood clots. ? Thin your blood and help prevent blood clots. ? Treat blood pressure. ? Improve blood flow to the heart. ? Reduce pain. ? Reduce cholesterol. ??? Procedures to widen a blocked artery and keep it open. ??? Open heart surgery. ??? Making your heart strong again (cardiac rehabilitation) through exercise, education, and counseling. Follow these instructions at home: Medicines ??? Take reol-vdr-inylyad and prescription medicines only as told by your doctor. ??? Do not take these medicines unless your doctor says it is okay: ? NSAIDs, such as ibuprofen, naproxen, or celecoxib. ? Any vitamins or supplements. ? Hormone replacement therapy that has estrogen with or without progestin. ??? If you are taking blood thinners: ? Talk with your doctor before taking any medicines that have aspirin or NSAIDs, such as ibuprofen. ? Take medicines exactly as told. Take them at the same time each day. ? Avoid doing things that could hurt or bruise you. Take action to prevent falls. ? Wear an alert bracelet or carry a card that shows you are taking blood thinners. Lifestyle ??? Do not smoke or use any products that contain nicotine or tobacco. If you need help quitting, ask your doctor. ??? Avoid secondhand smoke. ??? Exercise regularly. Ask your doctor about a cardiac rehab program. ??? Eat heart-healthy foods. Your doctor will tell you what foods to eat. ??? Stay at a healthy weight. ??? Learn ways to lower your stress level. ??? Do not use illegal drugs. Alcohol use ??? Do not drink alcohol if: ? Your doctor tells you not to drink. ? You are , may be , or are planning to become . ??? If you drink alcohol: ? Limit how much you have to: ? 0?1 drink a day for women. ? 0?2 drinks a day for men. ? Know how much alcohol is in your drink. In the [place] one drink equals one 12 oz bottle of beer (355 mL), one 5 oz glass of wine (148 mL), or one 1? oz glass of hard liquor (44 mL). General instructions ??? Work with your doctor to treat other problems you may have, such as diabetes or high blood pressure. ??? Get screened for depression. Get treatment if needed. ??? Keep your vaccines up to date. Get the flu shot (influenza vaccine) every year. ??? Keep all follow-up visits. Contact a doctor if: ??? You feel very sad. ??? You have trouble doing your daily activities. ??? You get light-headed or dizzy. Get help right away if: ??? You have sudden, unexplained discomfort in your chest, arms, back, neck, jaw, or upper body. ??? You have shortness of breath. ??? You have sudden sweating or clammy skin. ??? You feel like you may vomit or you vomit. ??? You fe (more content not included)... [facility] 08-22-2024 Evaluation note Diagnosis Onset Date Resolution Personal history of poliomyelitis acute August 22, 2024 11:02am Primary osteoarthritis of right hip acute August 22, 2024 11:02am [facility] Work Phone: [phone]) 927-613706-19-2025 Evaluation note* Diagnosis Onset Date Resolution Status Admit Date Personal history of poliomyelitis ac basilia August 22, 2024 11:02am Primary osteoarthritis of ri ght hip acute August 22, 2024 11:02am Hypertension acute September 05 8:33am Irregular heart beat acute September 05, 2024 8:33am Left bundle branch block (LBBB) acut e September 05, 2024 8:33am Primary osteoarthritis of ri ght hip acute September 05, 2024 8 :33am [facility] Work Phone: 1(445) 799-606705-21-2025 Note Attestation signed by Crissy Schuler MD at 07/24/2024 12:32 PM By [...] outside clinic near her [facility] who she reports recommended right total hip [...] a 84 y.o. female who presents to [facility] today for hip pain in [...] far. 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 She is independent with driving and uses a (more content not included)...[facility]04[facility] Note Right Eye Quality was good. Scan locations included subfoveal. Progression has been stable. Findings include abnormal foveal contour, pigment epithelial detachment. Left Eye Quality was good. Scan locations included subfoveal. Progression has been stable. Findings include abnormal foveal contour, pigment epithelial detachment.[facility] [id number] History of Present illness Narrative* Ottoniel Louise DO - 06/26/2024 1:15 PM EDT Images from the original note were not [...] lid scrubs were recommended. documented in this encounterMineral Area Regional Medical [id number] History of Present illness Narrative* Uli Schulte DPM FACFAS - 06/11/2024 1:50 PM EDT Patient: Una Gomez : 1940 PCP: Yaniv Singh MD SUBJECTIVE This is a 84 y.o. female that presents today for follow up after a painful lesion treatment 5th digit right she states the area was less painful after the treatment she has been putting CeraVe lotionto soften it. Allergies: Allergies Allergen Reactions Amoxicillin-Pot Clavulanate Unknown Fluconazole Other Reaction(s): Unknown Sulfa Antibiotics Unknown Tramadol Other Reaction(s): Unknown Past Medical History: Past Medical History: Diagnosis Date Arrhythmia Arthritis Asthma Diverticulosis Dry eyes Hepatitis History of hyperthyroidism History of YAG laser capsulotomy of lens Hypertension (CMS/HCC) Irregular heart beat Macular degeneration Osteoporosis (CMS/HCC) Polio PSVT (paroxysmal supraventricular tachycardia) (CMS/HCC) Rheumatoid arthritis (CMS/HCC) SCC (squamous cell carcinoma) Medications: Current Outpatient Medications: acetaminophen (Tylenol Extra Strength) 500 MG tablet, every 6 (six) hours., Disp: , Rfl: albuterol HFA (Proventil HFA) 90 mcg/act inhaler, 2 puff(s), Inhalation, q4hr, Refill(s) 0, as needed, Disp: , Rfl: aspirin 81 MG chewable tablet, Daily., Disp: , Rfl: aspirin 81 MG chewable tablet, Chew 81 mg 1 (one) time each day at the same time., Disp: , Rfl: aspirin 81 MG EC tablet, 1 (one) time each day at the same time., Disp: , Rfl: bupivacaine (Marcaine) 0.5 % injection, bupivacaine HCl 0.5 % (5 mg/mL) injection solution via inject, Disp: , Rfl: calcium carbonate (Os-Yung) 1250 (500 Ca) MG chewable tablet, Chew 200 mg in the morning., Disp: , Rfl: candesartan (Atacand) 4 MG tablet, Take 4 mg by mouth Daily, Disp: , Rfl: celecoxib (CeleBREX) 200 MG capsule, 1 (one) time each day at the same time., Disp: , Rfl: celecoxib (CeleBREX) 200 MG capsule, celecoxib 200 mg capsule, Disp: , Rfl: cephalexin (Keflex) 500 MG capsule, Take 500 mg by mouth in the morning and 500 mg before bedtime.,Disp: , Rfl: desonide (DesOwen) 0.05 % cream, APPLY SMALL AMOUNT 3 TIMES A DAY NEEDED, Disp: , Rfl: digoxin (Lanoxin) 125 MCG tablet, digoxin 125 mcg (0.125 mg) tablet, Disp: , Rfl: famotidine (Pepcid) 40 MG tablet, Take 40 mg by mouth., Disp: , Rfl: methylPREDNISolone (Medrol Dospak) 4 MG tablets, TAKE 6 TABLETS ON DAY 1 DIRECTED ON PACKAGE ANDDECREASE BY 1 TAB EACH DAY FOR A TOTAL OF 6 DAYS, Disp: , Rfl: metoprolol succinate XL (Toprol-XL) 25 MG 24 hr tablet, metoprolol succinate ER 25 mg tablet,extended release 24 hr, Disp: , Rfl: metoprolol tartrate (Lopressor) 25 MG tablet, 1 (one) time each day at the same time., Disp: , Rfl: montelukast (Singulair) 10 MG tablet, montelukast 10 mg tablet, Disp: , Rfl: Multiple Vitamins-Minerals (PreserVision AREDS) tablet, Orally, Disp: , Rfl: prednisoLONE acetate (Pred-Forte) 1 % ophthalmic suspension, prednisolone acetate 1 % eye drops,suspension, Disp: , Rfl: spironolactone (Aldactone) 25 MG tablet, every 12 (twelve) hours., Disp: , Rfl: spironolactone (Aldactone) 25 MG tablet, spironolactone 25 mg tablet, Disp: , Rfl: Symbicort 80-4.5 MCG/ACT inhaler, , Disp: , Rfl: Synthroid 50 MCG tablet, Synthroid 50 mcg tablet, Disp: , Rfl: ROS: General: denies fever, chills, fatigue, malaise Unremarkable OBJECTIVE LE EXAM: DERM: Positive hair growth to b/l feet with good skin turgor noted. Negative openings in skin lesion has resolved 5th digit right VASC: Palpable pedal pulsed b/l with warm to cool tibia to toes b/l NEURO: Gross sensation intact digits 1-10 and b/l feet ORTHO: +5/5 DF/PF/IN/EV right, +5/5 DF/PF/IN/EV left. 20 degrees inversion and 10 degrees eversion STJ b/l. Ankle ROM less than 10 degrees b/l. XRAY: US: ASSESSMENT 1. Neoplasm of uncertain behavior of skin 2. Plantar verruca PLAN Patient will RTC p.r.n. the area has completely resolved in the right 5th digit she was instructed to pad the area. JEANNINE Dolan documented in this encounterMineral Area Regional Medical [id number] History of Present illness Narrative* JEANNINE Dolan - 05/23/2024 2:00 PM EDT Images from the original note were not included. Patient: Una Gomez : 1940 PCP: Yaniv Singh MD SUBJECTIVE This is a 84 y.o. female that presents today with a chief complaint of a painful lesion plantar aspect of the foot. They state the lesion has been slow growing and has multipled. The area is painful and causes marked limitation in ambulation secondary to the pain. They have attempted ahsz-qix-vkhxmny anti- inflammatory medications as well as atrw-mtc-qpkotvv wart treatment to no avail. Patient haspolio and due to her toes ann she has a lesion that is very painful on the 5th digit right Allergies: Allergies Allergen Reactions Amoxicillin-Pot Clavulanate Unknown Fluconazole Other Reaction(s): Unknown Sulfa Antibiotics Unknown Tramadol Other Reaction(s): Unknown Past Medical History: Past Medical History: Diagnosis Date Arrhythmia Arthritis Asthma (CMS/HCC) Diverticulosis Dry eyes Hepatitis History of hyperthyroidism History of YAG laser capsulotomy of lens Hypertension (CMS/HCC) Irregular heart beat Macular degeneration Osteoporosis (CMS/HCC) Polio PSVT (paroxysmal supraventricular tachycardia) (CMS/HCC) Rheumatoid arthritis (CMS/HCC) SCC (squamous cell carcinoma) Medications: Current Outpatient Medications: acetaminophen (Tylenol Extra Strength) 500 MG tablet, every 6 (six) hours., Disp: , Rfl: albuterol HFA (Proventil HFA) 90 mcg/act inhaler, 2 puff(s), Inhalation, q4hr, Refill(s) 0, as needed, Disp: , Rfl: aspirin 81 MG chewable tablet, Daily., Disp: , Rfl: aspirin 81 MG chewable tablet, Chew 81 mg 1 (one) time each day at the same time., Disp: , Rfl: aspirin 81 MG EC tablet, 1 (one) time each day at the same time., Disp: , Rfl: bupivacaine (Marcaine) 0.5 % injection, bupivacaine HCl 0.5 % (5 mg/mL) injection solution via inject, Disp: , Rfl: calcium carbonate (Os-Yung) 1250 (500 Ca) MG chewable tablet, Chew 200 mg in the morning., Disp: , Rfl: candesartan (Atacand) 4 MG tablet, Take 4 mg by mouth Daily, Disp: , Rfl: celecoxib (CeleBREX) 200 MG capsule, 1 (one) time each day at the same time., Disp: , Rfl: celecoxib (CeleBREX) 200 MG capsule, celecoxib 200 mg capsule, Disp: , Rfl: cephalexin (Keflex) 500 MG capsule, Take 500 mg by mouth in the morning and 500 mg before bedtime.,Disp: , Rfl: desonide (DesOwen) 0.05 % cream, APPLY SMALL AMOUNT 3 TIMES A DAY NEEDED, Disp: , Rfl: digoxin (Lanoxin) 125 MCG tablet, digoxin 125 mcg (0.125 mg) tablet, Disp: , Rfl: famotidine (Pepcid) 40 MG tablet, Take 40 mg by mouth., Disp: , Rfl: methylPREDNISolone (Medrol Dospak) 4 MG tablets, TAKE 6 TABLETS ON DAY 1 DIRECTED ON PACKAGE ANDDECREASE BY 1 TAB EACH DAY FOR A TOTAL OF 6 DAYS, Disp: , Rfl: metoprolol succinate XL (Toprol-XL) 25 MG 24 hr tablet, metoprolol succinate ER 25 mg tablet,extended release 24 hr, Disp: , Rfl: metoprolol tartrate (Lopressor) 25 MG tablet, 1 (one) time each day at the same time., Disp: , Rfl: montelukast (Singulair) 10 MG tablet, montelukast 10 mg tablet, Disp: , Rfl: Multiple Vitamins-Minerals (PreserVision AREDS) tablet, Orally, Disp: , Rfl: prednisoLONE acetate (Pred-Forte) 1 % ophthalmic suspension, prednisolone acetate 1 % eye drops,suspension, Disp: , Rfl: spironolactone (Aldactone) 25 MG tablet, every 12 (twelve) hours., Disp: , Rfl: spironolactone (Aldactone) 25 MG tablet, spironolactone 25 mg tablet, Disp: , Rfl: Symbicort 80-4.5 MCG/ACT inhaler, , Disp: , Rfl: Synthroid 50 MCG tablet, Synthroid 50 mcg tablet, Disp: , Rfl: Review of systems: Constitutional: Denies fever, chills, nausea, vomiting GI: Denies abdominal pain, cramping, loose stool, gastric ulcers Musculoskeletal: Denies low back pain, knee pain, systemic arthritis Neurologic: Denies burning, tingling, transient paralysis OBJECTIVE Physical Examination: DERM: Positive hair growth to b/l feet with good skin turgor noted. Negative openings in skin. There is pinpoint bleeding noted upon debridement. Pain with lateral compression. No skin lines running through the lesion. The lesions are multiple and sporadic. One nucleated lesion on the plantar lateral aspect of the 5th digit right VASC: DP /PT were palpable bilateral. Capillary refill time < 3 seconds Digits 1-5 bilateral NEURO: [place] 5.07 monofilament was intact B/L. Vibratory sensation was intact B/L Musculoskeletal: Muscle strength was +5 over 5 all intrinsic and extrinsic muscles tested. 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 Neoplasm of uncertain behavior of skin 2. Plantar verruca 3. Pain in right toe(s) PLAN Patient was educated on the etiology of the plantar neoplasm. We discussed surgical versus conservative options. From a surgical standpoint we discussed excision with pathological examination versus Chemo -lytic treatment. Today I debrided the lesions to the level of pinpoint bleeding. I applied anapplication of 60 percent salicylic acid to the lesions. Covered with an occlusive dressing. JEANNINE Dolan documented in this encounterMineral Area Regional Medical [id number] NotePatient Education Nutrition BMI for Adults Body mass [...] This can help you reach a healthy weight.BMI screening can be done again to see if these changes are working. How is BMI calculated? Your height and weight are measured. The BMI is found from those numbers. This can be done with U.S. or metric measurements. Note that charts and online BMI calculators are available to help you findyour BMI quickly and easily without doing these [...] measurement is 1.75 m x 1.75 m, whichequals 3.1 meters squared. 3. Divide the number of kilograms (your weight) by the meters squared number. In this example: 70 ?3.1 = 22.6. This is your BMI. What [...] for Disease Control and Prevention: cdc.gov ??? [place] Heart Association: heart.org ??? National Heart, Lung, and Blood [place]: nhlbi.nih.gov This information is not intended to replace advice given to you by your health care provider. Make sure you discuss any questions you have with your health care provider. Document Revised: 11/10/2022 Document Reviewed: 11/03/2022 [employer] Workflow Management Patient Education ? 2023 [employer] 04-10-2024 Evaluation note* Author Marija [facility]illoProv[facility] Hospital Authored April 10, 2024 1 :12pm 84-year-old female referred to the gastroenterology clinic for evaluation of fatty liver. Recent ultrasound showed hepatic steatosis FibroScan on 12/23/2022 showed LSM 6.9 consistent with no significant fibrosis and CAP 317 consistent with steatosis grade 3. FibroScan on 03/05/2024 showed LSM 5.7 consistent with no significant fibrosis and CAP 280 consistent with steatosis grade S2 Patient has HTN, and hypothyroidism which are risk factors associated with MASLD. Patient does not have secondary causes of hepatic fat accumulation such as significant alcohol consumption, viral hepatitis, steatogenic medications (e.g., tamoxifen, amiodarone, methotrexate), or lipodystrophy. Pt was counseled about mediterranean diet and exercise. No need for medical therapy [facility] Work Phone: [phone]) 692-403502-03-2025 NotePatient Education Nutrition BMI for Adults Body mass [...] This can help you reach a healthy weight.BMI screening can be done again to see if these changes are working. How is BMI calculated? Your height and weight are measured. The BMI is found from those numbers. This can be done with U.S. or metric measurements. Note that charts and online BMI calculators are available to help you findyour BMI quickly and easily without doing these [...] measurement is 1.75 m x 1.75 m, whichequals 3.1 meters squared. 3. Divide the number of kilograms (your weight) by the meters squared number. In this example: 70 ?3.1 = 22.6. This is your BMI. What [...] for Disease Control and Prevention: cdc.gov ??? [place] Heart Association: heart.org ??? National Heart, Lung, and Blood [place]: nhlbi.nih.gov This information is not intended to replace advice given to you by your health care provider. Make sure you discuss any questions you have with your health care provider. Document Revised: 11/10/2022 Document Reviewed: 11/03/2022 [employer] Patient Education ? 2023 [employer].[facility] 02-21-2024 NoteRight Eye Quality was good. Scan locations included subfoveal. Progression has been stable. Findings include pigment epithelial detachment. Left Eye Quality was good. Scan locations included subfoveal. Progression has been stable. Findings include pigment epithelial detachment.[facility] [id number] History of Present illness Narrative* Ottoniel Louise DO - 02/21/2024 1:45 PM EST Images from the original note were not [...] lid scrubs were recommended. documented in this encounterMineral Area Regional Medical [id number] Telephone encounter Note* Telephone Encounter - Julia Riccelli - 01/22/2024 2:55 PM EST Spoke with pt informing them that Dr. Bravo did not accept leora as a new patient. Pt voiced understanding [facility] [id number] Miscellaneous Notes* Telephone Encounter - Julia Hernandezjuan - 01/22/2024 2:55 PM EST Spoke with pt informing them that [facility] did not accept leora as a new patient. Pt voiced understanding documented in this encounterMineral Area Regional Medical [id number] NotePatient Education Nutrition BMI for Adults Body mass [...] This can help you reach a healthy weight.BMI screening can be done again to see if these changes are working. How is BMI calculated? Your height and weight are measured. The BMI is found from those numbers. This can be done with U.S. or metric measurements. Note that charts and online BMI calculators are available to help you findyour BMI quickly and easily without doing these [...] measurement is 1.75 m x 1.75 m, whichequals 3.1 meters squared. 3. Divide the number of kilograms (your weight) by the meters squared number. In this example: 70 ?3.1 = 22.6. This is your BMI. What [...] for Disease Control and Prevention: cdc.gov ??? [place] Heart Association: heart.org ??? National Heart, Lung, and Blood [place]: nhlbi.nih.gov This information is not intended to replace advice given to you by your health care provider. Make sure you discuss any questions you have with your health care provider. Document Revised: 11/10/2022 Document Reviewed: 11/03/2022 [employer] Workflow Management Patient Education ? 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 Had routine labs w/ lipid panel in September 2023. She denies chest pain, SOB, palpitations, and LE edema. Doing very well. Review of Systems All other systems reviewed and are negative.[facility] 11-30-2023 [facility]Cardiovascular Medicine [facility] SUBJECTIVE No chief complaint on file. [...] Echocardiogram: 10/05/2022 Mild left (more content not included)...[facility] 11-20-2023 NoteRight Eye Quality was good. Scan locations included subfoveal. Progression has been stable. Findings include abnormal foveal contour, pigment epithelial detachment. Left Eye Quality was good. Scan locations included subfoveal. Progression has been stable. Findings include abnormal foveal contour, pigment epithelial detachment. Notes Vitelliform change central [facility] [id number] History of Present illness Narrative* Ottoniel Louise, DO - 11/20/2023 1:30 PM EDT Images from the original note were not [...] lid scrubs were recommended. documented in this encounterMineral Area Regional Medical [id number] NotePatient Education Nutrition BMI for Adults What is BMI? Body mass index (BMI) is a number that is calculated from a person's weight and height. BMI can help estimate how much of a person's weight is composed of fat. BMI does not measure body fat directly.Rather, it is an alternative to procedures that [...] your height. Both height and weight are measured,and the BMI is calculated from those numbers. This can be done either in [place] ([place] or metric measurements. Note that charts and online BMI calculators are available to help you find your BMI quickly and easily without having to do these calculations yourself. To calculate your BMI in [place] (U.[place] measurements: 1. Measure your weight in [...] meters squared number. In this example: 70 ?3.1 = 22.6. This is your BMI. What [...] for Disease Control and Prevention: www.cdc.gov ? [place] Heart Association: www.heart.org ? National Heart, Lung, and Blood [place]: www.nhlbi.nih.gov Summary ? Body mass index (BMI) is a number that is calculated from a person's weight and height. ? BMI may help estimate how much of a person's weight is composed of fat. BMI can help identify those who may be at higher risk for certain medical problems. ? BMI can be measured using [place] measurements or metric measurements. ? BMI charts are used to identify whether you are underweight, normal weight, overweight, or obese. This information is not intended to replace advice given to you by your health care provider. Make sure you discuss any questions you have with your health care provider. Document Revised: 11/13/2019 Document Reviewed: 09/20/2019 [employer] Patient Education ? 2022 [employer] 09-14-2023 NotePatient Education Mental and Behavioral Health Managing Depression, [...] pray, or go to a place of church. ? Do some deep breathing. To do [...] coming back, let your health care provider knowright away. Follow these instructions at home: Activity [...] or salt (sodium). General instructions ? Take [id number]-[id number] and prescription medicines only as told by [...] Mental Health Jerica: www.me (more content not included)...[facility]12-05-2023 Evaluation note* Encounter Date Diagnosis Assessment Notes Treatment Notes Treatment Clinical Notes Feb, Fatty liver (ICD-10 - K76.0) Patient advised to make life style modifications-diet /exercise/weight loss. Repeat fibroscan in 1 yr Rto 1 yr [employer] Other 10-10-2023 Evaluation note* Encounter Date Diagnosis Assessment Notes Treatment Notes Treatment Clinical Notes Dec, RUQ pain (ICD-10 - R10.11) [employer] Other 02-17-2021 NoteMR#: [id number] I [facility] Pt. 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 SECONDARY DIAGNOSIS: None. HOSPITAL COURSE: The patient came to the [facility] for left reverse total shoulder arthroplasty on 04/14/2020. The patient tolerated the procedure well. The patient was transferred up to the floor where she worked with PT and OT. The patient was discharged home in good condition on 04/15/2020 with prescriptions for pain medicine for Colace and for Lovenox. The patient will follow up with Dr. Multani in clinic in 2 weeks' time. The patient will be nonweightbearing in a sling. Electronically Signed by: Bertha Multani MD 05/03/2020 09:57 P Bertha Multani MD I personally saw this patient on the day of the encounter, performed the penaloza portion(s) of the service and participated in the management and confirm the resident's documentation. Please note there may be an additional personal documentation from me. Date Dict: 04/22/2020/05:42 P/Bruno Schafer MD Date Trans: 04/22/2020 06:23 P/vicky [id number] cc: Amaury Monterroso M.D. [address] [place] [phone] [facility] note Future Appointments Appointment Date:09/19/2022 10:40:00 AM Scheduled Provider:Yaniv Singh MD Location:[facility] Appointment Type: Open Appointment Date:09/14/2023 11:00:00 AM Scheduled [facility] Future Appointments Appointment Date:09/19/2023 10:00:00 AM Scheduled Provider:[facility]aniv [facility]: Open Appointment Date:09/09/2024 11:00:00 AM Scheduled Provider: [facility] Future Appointments Appointment Date:02/13/2024 10:45:00 AM Scheduled Provider:Yaniv Singh MD [facility] Type: Open Appointment Date:09/09/2024 11:00:00 AM Scheduled Provider: [facility] Type: Medicare [facility] Evaluation + Plan note Future Appointments Appointment Date:09/09/2024 11:00:00 AM Scheduled Provider: [facility] Type: Medicare Wellness [facility] Evaluation note* Diagnosis 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- Primary Dry eyes Unspecified tear film insufficiency Blepharitis of upper and lower eyelids of both eyes, unspecified type documented in this encounter [facility] HealthcareEvaluation note* Diagnosis 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- Primary Dry eyes Unspecified tear film insufficiency Blepharitis of upper and lower eyelids of both eyes, unspecified type documented in this encounter [facility] HealthcareEvaluation note* Diagnosis Onset Date Resolution Status Admit Date Fatty liver acute April 10, 2024 11:29am [facility] Work Phone: Evaluation note* Diagnosis 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 Pain in right toe(s) documented in this encounter [facility] HealthcareEvaluation note* Diagnosis 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 documented in this encounter [facility] HealthcareHistory general Narrative - Reported* Type Description Date Medical History ASTHMA Medical History VERTIGO Medical History ESOPHAGEAL STRICTURE Surgical History SHOULDER REPLACEMENT Surgical History CHOLECYSTECOMY Hospitalization History SEE ABOVE Dataminr Other Hospital course Narrative No data available for this section [facility] No data available for this section [facility] No data available for this section [facility] for referral (narrative)No reason for referral information availableAv[facility] Work Phone: Summary Purpose Family History No Family History Records Found Relationship Condition Age at Onset Recorded Date/T lisa mother Malignant neoplasm of breast Unknown father Dementia Unknown father Unknown mother Unknown Relationship Condition Age at Onset Recorded Date/T lisa mother Malignant neoplasm of breast Unknown Unknown father Dementia Unknown Advance Directives No Advanced Directives Records Found Advance Directive Response Recorded Date/ Time Advance Directives No July 13 8:38am Advance Directive Response Recorded Date/ Time Advance Directives No July 13 9:38am Chief Complaint and Reason for Visit Chief Complaint Admit Date fatty liver March 05, 2024 12:53pm 1 yr f/u-fatty liver April 10, 2024 11:29am Reason for Visit Admit Date Fatty liver April 10, 2024 1 1:29am Chief Complaint Admit Date fatty liver March 05, 2024 12:53pm 1 yr f/u-fatty liver April 10, 2024 11:29am NEW RT HIP PAIN NX May 08, 2024 12:5 5pm M25.551 - Pain in right hip May 08 1:04pm Chief Complaint Admit Date OP SP RT HIP PAIN August 22, 2024 11:0 2am Z79.899 M81.0 August 22, 2024 12:5 8pm POC September 05, 2024 8:33a m Reason for Visit Admit Date Personal history of poliomyelitis August 042024 11:02am Primary osteoarthritis of right hip August 22, 2024 11:02am Chief Complaint Admit Date OP SP RT HIP PAIN August 22, 2024 11:0 2am Z79.899 M81.0 August 22, 2024 12:5 8pm POC September 05, 2024 8:33a m shoulder pain September 05, 2024 7:42p m Reason for Visit Admit Date Personal history of poliomyelitis August 042024 11:02am Primary osteoarthritis of right hip August 22, 2024 11:02am Hypertension September 05, 2024 8:33a m Irregular heart beat September 05, 2024 8:33 am Left bundle branch block (LBBB) September 8:33am Primary osteoarthritis of right hip September 05, 2024 8:33am Additional Source Comments INFORMATION SOURCE (unrecogn ized section and content) DATE CREATED AUTHOR 04/11/2021 [facility] DATE CREATED AUTHOR AUTHOR'S ORGANIZ ATION 07/07/2022 [facility] DATE CREATED AUTHOR AUTHOR'S ORGANIZ ATION 09/22/2023 Saucedo Perfecto [facility] DATE CREATED AUTHOR AUTHOR'S ORGANIZ ATION 02/15/2024 Lingle Perfecto [facility] DATE CREATED AUTHOR AUTHOR'S ORGANIZ ATION 06/27/2024 [facility] DATE CREATED AUTHOR AUTHOR'S ORGANIZ ATION 07/31/2024 [facility] DATE CREATED AUTHOR AUTHOR'S ORGANIZ ATION 08/21/2024 Lingle Perfecto [facility] DATE CREATED AUTHOR AUTHOR'S ORGANIZ ATION 08/23/2024 Saucedo [place] [facility] DATE CREATED AUTHOR AUTHOR'S ORGANIZ ATION 09/12/2024 Saucedo [place] [facility] DATE CREATED AUTHOR AUTHOR'S ORGANIZ ATION 09/26/2024 [facility] DATE CREATED AUTHOR AUTHOR'S ORGANIZ ATION 09/27/2024 Lingle Perfecto [facility] DATE CREATED AUTHOR AUTHOR'S ORGANIZ ATION 09/28/2024 [facility] Patient Care team informatio n (unrecognized section and content) 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..] April 10, 2024 End: April 10, 2024 Team Status: Inactive Member Role Status Dates Yaniv Singh MD Primary Care Provider Active Start: May 08, 2024 End: May 08, 2024 Fred Hernandez II, MD Attending Provider Active Start: May 08, 2024 End: May 08, 2024 Team Status: Active Member Role Status Dates Fred Hernandez II, MD Attending Provider Active Start: May 08, 2024 Yaniv Singh MD Primary Care Provider Active Start: May 08, 2024 Team Status: Inactive Member Role Status Dates Fred Hernandez II, MD Attending Provider Active Start: May 08, 2024 End: May 08, 2024 Yaniv Singh MD Primary Care Provider Active Start: May 08, 2024 End: May 08, 2024 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 Start Date End Date Yaniv Singh MD [address] [place] [address] PCP - General Family Medicine 11/20/23 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 Start Date End Date Yaniv Singh MD [address] [place] [address] PCP - General Family Medicine 11/20/23 Team Status: Inactive Member Role Status Dates Yaniv Singh MD Primary Care Provider Active Start: August 22, 2024 End: August 22, 2024 Fred Hernandez II, MD Attending Provider Active Start: August 22, 2024 End: August 22, 2024 Team Status: Inactive Member Role Status Dates Yaniv Singh MD Primary Care Provider Active Start: September 05, 2024 End: September 05, 2024 Curtis Morales MD Attending Provider Activ e Start: September 05, 2024 End: September 05, 2024 Team Status: Active Member Role Status Dates Yaniv Singh MD Primary Care Provider Active Start: September 05, 2024 Curtis Morlaes MD Attending Provider Activ e Start: September 05, 2024 Team Status: Active Member Role Status Dates BALJIT RyanC Primary Care Provider Active Team Status: Inactive Member Role Status Dates Rosa M Romano APRN Emergency Provider Active Start: September 05, 2024 End: September 05, 2024 Marlee Debbie Yun , EXTRACT MIXER-C Primary Care Provider Active Start: September 05, 2024 End: September 05, 2024 REASON FOR VISIT (unrecogniz ed section and content) Reason Comments Annual Exam Follow-up Reason Comments Follow-up Reason Comments Foot Callouses RT 5th digit callus Reason Comments Macular Degeneration Goals (unrecognized section and content) Goals may [...] BE BASED ON THE PRIMARY CLINICAL RECORDS. [facility] [employer] provides no warranty or guarantee of the accuracy or completeness of information in this document.
== END 2024-10-02 10:56 | disposition home or self-care (01) ==
LOC: RAD 10:56
PROVIDERS: PCP Family Medicine; Visit Provider Nurse Practitioner
DX: E28.39 Other primary ovarian failure (principal); M85.80 Other specified disorders of bone density and structure, unspecified site
CPT/HCPCS: 77080

== ENCOUNTER 2024-10-24 13:01 | Outpatient (OUT) | payer MEDICARE, SELFPAY ==
--- OUTSIDE RECORDS SUMMARY | 2024-10-21 13:45 | XMS_ITS | Encounter Summary ---
Author Organization [facility] Address [address] [place] [address] Care Team Providers Care Heater Operator Name Role Phone Yaniv Sinhg MD Primary Care Provider [phone] Reason for Referral * Therapy (Routine) - Pending Review Specialty Diagnoses / Procedures Referred By Kendrick sierra Referred To Contact Physical Therapy Diagnoses Right shoulder pain, unspecified chronicity Procedures ND OFFICE/OUTPATIENT [facility] 60 MINUTES Marla Multani MD [address] [address] Phone: tel: fax: Referral ID Status Reason Start Date Expiration Date Visits Requested Visits Authorized [id number] Pending Review Evaluation and Treat 10/21/2024 10/21/2025 1 1 Reason for Visit * Reason Comments Follow-up Pt c/o right armpit pain. Pt has had for a few months. Happened when carrying groceries. Pt says oral steroids have helped in the past with this pain Pain Pt c/o right armpit pain. Pt has had for a few months. Happened when carrying groceries. Pt says oral steroids have helped in the past with this pain Encounter Details Date Type Department Care Team (Late st Contact Info) Description 10/21/2024 1:45 PM EDT Follow-Up [facility] [address] [place] [address] [place] [address] Marla Multani MD [address] [address] Bilateral shoulder pain, unspecified chronicity (Primary Dx); Right shoulder pain, unspecified chronicity Social History Tobacco Use Types Packs/Day Years [...] Answer Date Recorded Patient Health Questionnaire-2 Score 0 10/21/2024 Transportation Answer Date Recorded In the past [...] place to sleep or slept in a mcc (including now)? No 04/10/2023 Hunger Vital Sign Answer Date Recorded Within the past 12 months, y ou worried that your food would run out before you got the money to buy more. Never true 04/10/19 24 Ran Out of Food in the Last Year Not on file 04/10/2023 Comments Unknown Sex and Gender Information Value Date Recorded Sex Assigned at Female 10/15/2024 2:54 PM EDT Legal Sex Female 11:37 PM EDT Gender Identity Female 10/15/2024 2:54 PM EDT Sexual Orientation Heterosexual or Straight 10/04 2:54 PM EDT documented as of this encounter Functional Status documented as of this encounter Plan of Treatment Upcoming Encounters Date Type Department Care Team (Late st Contact Info) Description 12/09/2024 11:45 AM EDT Office Visit [facility] [address] [place] [phone] Curtis Naylor MD [address] [facility] [address] [facility] [place] [phone] Scheduled Referrals Name Type Priority Associated Diagnoses Orde r Schedule Ambulatory referral to Physical Therapy Outpatient Referral Routine Right shoulder pain, unspecified chronicity Expected: 10/21/2024 (Approximate), Expires: 04/23/2025 documented as of this encounter Results * XR shoulder 2+ views right (10/21/2024 1:46 PM EDT) Anatomical Region Laterality Modality Upper Extremities, Shoulder Right Comp uted Radiography 10/22/2024 12:3 0 PM EDT Impressions 10/22/2024 12:31 PM EDT FINDINGS/impression: Right shoulder arthroplasty hardware is intact with satisfactory gross alignment. There is no gross hardware failure or loosening Electronically signed: Andres Cuello. Narrative 10/22/2024 12:31 PM EDT XR SHOULDER 2+ VIEWS RIGHT 10/21/2024 1:46 PM CLINICAL INDICATIONS: Chronic right shoulder pain with history of arthroplasty 5 1/2 years ago COMPARISON: 04/10/2023 Procedure Note Andres Cuello MD - 10/22/2024 XR SHOULDER 2+ VIEWS RIGHT 10/21/2024 1:46 PM CLINICAL INDICATIONS: Chronic right shoulder pain with history ofarthroplasty 5 1/2 years ago COMPARISON: 04/10/2023 IMPRESSION: FINDINGS/impression: Right shoulder arthroplasty hardware is intact with satisfactory gross alignment. There is no gross hardware failure or loosening Electronically signed: Andres Cuello. Marla Multani MD IMG XR PROCEDURES Final Result documented in this encounter Visit Diagnoses Diagnosis Bilateral shoulder pain, unspecified chronicity- Primary Right shoulder pain, unspecified chronicity Right shoulder pain, unspecified chronicity documented in this encounter Care Teams Heater Operator Relationship Specialty Start Date End Date Yaniv Singh MD [address] [place] [address] PCP - General Family Medicine 10/20/22 documented as of this encounter
--- OUTSIDE RECORDS SUMMARY | 2024-10-21 13:45 | XMS_ITS | Encounter Summary ---
Author Organization [facility] Address [address] [place] [address] Care Team Providers Care Lab Tester Name Role Phone Yaniv Singh MD Primary Care Provider Encounter Details Date Type Department Care Team (Latest Contact Info) Description 10/21/2024 1:45 PM EDT - 10/21/2024 11:59 PM EDT Hospital Encounter [facility] [address] [place] [address] [place] [phone] Right shoulder pain, unspecified chronicity Discharge Disposition: Home or Self Care () Social History Tobacco Use Types Packs/Day Years [...] place to sleep or slept in a senior care (including now)? No 04/10/2023 Hunger Vital Sign [...] Functional Status documented as of this encounter Medications at Time of Discharge aspirin 81 mg EC tablet 1 (one) time each day at the same time. budesonide-formo teroL (Symbicort) 80-4.5 mcg/actuation inhaler Inhale 1 puff twice a day by inhalation route for 90 days. 12/20/2020 candesartan (Atacand) 4 mg tablet Take 1 tablet every day by oral route for 90 days. 12/07/2020 celecoxib (CeleBREX) 200 mg capsule 200 mg two times daily. 10/18/2022 digoxin (Lanoxin) 125 MCG tablet Take 1 tablet every day by oral route for 90 days. 07/05/2022 metoprolol succinate XL (Toprol-XL) 25 mg 24 hr tablet Take 25 mg by mouth once daily as directed. 07/10/2018 montelukast (Singulair) 10 mg tablet Take 10 mg by mouth at bedtime. 08/22/2022 spironolactone (Aldactone) 25 mg tablet Take 25 mg by mouth in the morning. 08/01/2022 Synthroid 50 mcg tablet Take 50 mcg by mouth before breakfast. 08/01/2022 documented as of this encounter Plan of Treatment Upcoming Encounters Date Type Department Care Team (Late st Contact Info) Description 12/09/2024 11:45 AM EDT Office Visit [facility] [address] [place] [address] Curtis Naylor MD [address] [facility] [place] [address] documented as of this encounter Procedures Procedure Name Priority Date/Time Associated Diagnosis Comments XR SHOULDER 2+ VIEWS RIGHT Routine 10/21/2024 1:46 PM EDT Right shoulder pain, unspecified chronicity documented in this encounter Results * XR shoulder 2+ [...] documented in this encounter Visit Diagnoses Diagnosis Right shoulder pain, unspecified chronicity documented in this encounter Care Teams Lab Tester Relationship Specialty Start Date End Date Yaniv Singh MD [address] [place] [address] PCP - General Family Medicine 10/20/22 documented as of this encounter
--- OUTSIDE RECORDS SUMMARY | 2024-10-24 13:04 | XMS_ITS | Clinical Summary ---
Author Organization [facility] Address [address] [place], [place] [id number] Care Team Providers Care Conductor Freight Name Role Phone Shruthi Monterroso MD Primary Care Provider [phone] Social History Tobacco Use Types Packs/Day Years Used Date Smoking Tobacco: Never Assessed Comments Unknown Sex and Gender Information Value Date Recorded Sex Assigned at Not on file Legal Sex Female 8:46 AM EST Gender Identity Not on file Sexual Orientation Not on file Plan of Treatment Not on file Insurance [employer] MEDICARE Care Teams Conductor Freight Relationship Specialty Start Date End Date Shruthi Monterroso MD [address] [place] [address] PCP - General Family Medicine 01/30/15
--- OUTSIDE RECORDS SUMMARY | 2024-10-24 13:04 | XMS_ITS | Clinical Summary ---
Author Organization [facility] Address [address] [place] [address] Care Team Providers Care Loan Servicing Specialist Name Role Phone Yaniv Singh MD Primary Care Provider [phone] Allergies Active Allergy Reactions Criticality Noted Date [...] Encounters Date Type Department Care Team Description 10/21/2024 1:45 PM EDT - 10/21/2024 11:59 PM EDT Hospital Encounter [facility] [address] [place] [address] [place] [phone] Right shoulder pain, unspecified chronicity Discharge Disposition: Home or Self Care () 10/21/2024 1:45 PM EDT Follow-Up [facility] [address] [place] [address] [place] [phone] Marla Multani MD Bilateral shoulder pain, unspecified chronicity (Primary Dx); Right shoulder pain, unspecified chronicity 07/24/2024 10:00 AM EDT Office Visit [facility] [address] [place] [address] [place] [phone] Crissy Schuler MD Poliomyelitis (Primary Dx); Chronic [...] place to sleep or slept in a halfway (including now)? No 04/10/2023 Hunger Vital Sign [...] Heterosexual or Straight 10/04 2:54 PM EDT Last Filed Vital Signs Vital Sign Reading [...] Description 12/09/2024 11:45 AM EDT Office Visit [facility] [address] [place] [address] Curtis Naylor MD [address] [facility] [place] [address] Health Maintenance Due Date Last Done Comments Medicare Annual Wellness (AWV) 1940 Adult Tetanus 1962 Zoster Vaccines (1 of 2) 1988 COVID-19 Vaccine ( season) 2023 02/10/2022, 03/17/2021, 05/05/2020, Additional history exists Influenza Vaccine (#1) 2024 , 12/14/2022, 12/27/2021, Additional history exists Depression Screening 10/21/2025 10/21/2024 Fall Risk Screening 10/21/2025 10/21/2024 Pneumococcal Vaccine: 50+ Years Completed 09/11/2020, 09/12/2019 [...] on patient's age to complete this topic Procedures Procedure Name Priority Date/Time Associated Diagnosis Comments XR SHOULDER 2+ VIEWS RIGHT Routine 10/21/2024 1:46 PM EDT Right shoulder pain, unspecified chronicity from Last 3 Months Results * XR shoulder 2+ views right [...] Multani MD IMG XR PROCEDURES Final Result from Last 3 Months Insurance [employer] MED[employer]ARE ADVANTAGE Care Teams Loan Servicing Specialist Relationship Specialty Start Date End Date Yaniv Singh MD [address] [place] [id number] PCP - General Family Medicine 10/20/22
--- OUTSIDE RECORDS SUMMARY | 2024-10-24 13:04 | XMS_ITS | Encounter Summary ---
Author Organization [facility] Address [address] [place] [address] Care Team Providers Care Medart Operator Name Role Phone Shruthi Monterroso MD Primary Care Provider [phone] Source Comments In the event this information is protected by the Federal Confidentiality of Alcohol and Drug AbusePatient Records regulations: The Federal rules restrict any use of the information to criminally investigate or prosecute any alcohol or drug abuse patient.[facility] Encounter Details Date Type Department Care Team (Late st Contact Info) Description 08/05/2022 Lab Requisition [facility] [address] [place] [address] Josie Bauman MD [address] [place], [place] [id number] Person encountering health services to consult on [...] EDT) Case Report Surgical Pathology Report Case: [id number] Authorizing Provider: Jsoie Bauman MD Collected: 08/05/2022 09:15 AM Ordering Location: [facility] Main Received: 08/05/2022 09:14 AM Pathologist: Kymberly Srivastava MD Specimen: SLIDE(S)/BLOCK(S), 7 SLIDES AND 1 BLOCK ([id number]) 08/08/2022 12:02 PM EDT [facility] FINAL DIAGNOSIS A. Skin, left clavicle, excision ([id number], 07/26/2022): -Squamous cell carcinoma in situ, see comment. ZOFIA/ARIADNA 08/07/2022 08/08/2022 12:02 PM EDT [facility] at 1202 EDT Diagnosis Comment Many [...] Please call the Dermatopathology Consultation Service at [phone] with questions or if additional follow-up information becomes available regarding this patient. This case was reviewed in conjunction with the Dermatopathology Fellow, Dr. Chatman. 08/08/2022 12:02 PM EDT [facility] Clinical History CONSULT REQUESTED 08/08/2022 12:02 PM EDT [facility] Performing Lab Diagnostic interpretation performed at [facility], [address] [place], [place] [id number] CLIA# [id number] Twister Tender Paper: Tera Dixon M.D. 08/08/2022 12:02 PM EDT [facility] Blocks or Slides PARAFFIN EMBEDDED TISSUE BLOCK SPECIMEN / Unknown 08/05/2022 9:15 AM EDT 08/05/2022 9:14 AM EDT us Josie Bauman MD SURGICAL PATHOLOGY Final Result [facility] [address] [facility] [address] [place] [address], documented in this encounter Visit Diagnoses Diagnosis Person encountering health services to consult on behalf of another person Other person consulting on behalf of another person documented in this encounter Care Teams Medart Operator Relationship Specialty Start Date End Date Shruthi Monterroso MD [address] [place] [address] PCP - General Family Medicine 01/30/15 documented as of this encounter
--- OUTSIDE RECORDS SUMMARY | 2024-10-24 13:04 | XMS_ITS | Clinical Summary ---
Author Organization [facility] tem Address [id number] [address] [place] [address] Care Team Providers Care Photograph Printer Name Role Phone Shruthi Monterroso MD Primary Care Provider [phone] Allergies Active Allergy Reactions Criticality Noted Date [...] on file Insurance [employer] MED[employer]ARE Care Teams Photograph Printer Relationship Specialty Start Date End Date Shruthi Monterroso MD PCP - General Family Medicine 12/30/20
--- OUTSIDE RECORDS SUMMARY | 2024-10-24 13:09 | XMS_ITS | CCD ---
Author Organization [facility] CliniSyhi Care Team Providers Care 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 Name Role Phone AMAURY MONTERROSO Primary Care Unavailable AMAURY MONTERROSO Referring Unavailable AMANDAATTAR, OSAMA Admitting Unavailable SUSANA OSAOTTO Attending Unavailable DE Procedure Practitioner Unavailab BERTHA Ahumada Surgeon Unavailable [...] Admitting Unavailable Yaniv Singh. Primary Care Physician [phone] Asaad, Imad Unavailable Yaniv Singh MD Primary Care Provider [phone] MD Yaniv Singh. Attending Unavailable MD Yaniv Singh. Admitting Unavailable MD Yaniv Singh. Attending Unavailable MD Yaniv Singh. Attending Unavailable DIONTE, MELISSA A Admitting Unavailable MELISSA RODRIGEZ Attending Unavailable Yaniv Singh MD Primary Care Provider Marija Vega MD Attending Provider [phone] Yaniv Singh MD Primary Care Provider [phone] Marija Vega MD Attending Provider [phone] Frde Hernandez MD Attending Provider DOLCERAYOULI R Attending Unavailable DOLCE, ULI R Attending Unavailable ZAHLOTTONIEL MILIAN Attending Unavailable ZAHLOTTONIEL MILIAN Attending Unavailable ZAHLOTTONIEL MILIAN Attending Unavailable ZAHLEROTTONIEL Attending Unavailable NITHYAHLOTTONIEL MILIAN Attending Unavailable VADIM RODRIGEZA A Admitting Unavailable MELISSA RODRIGEZ Attending Unavailable Yaniv Singh Attending Unavailable Yun, COOK FRY Marlee Cortés Attending Unavailable Yaniv Singh Attending Unavailable Yaniv Singh Attending Unavailable Yaniv Singh Attending Unavailable Yaniv Singh Attending Unavailable Yaniv Singh Attending Unavailable Yun, COOK FRY Marlee Cortés Attending Unavailable Yaniv Singh Admitting Unavailable Yaniv Singh Attending Unavailable Yaniv Singh MD Primary Care Provider Fred Hernandez MD Attending Provider Curtis Morales MD Attending Provider Rosa M Romano APRN Emergency Provider [phone] Yun MOODY-CMarlee Primary Care Provider [phone] Yaniv Singh Attending Unavailable Yun, COOK FRY Marlee L Attending Unavailable Yaniv Singh Attending Unavailable Yun, COOK FRY Marlee L Attending Unavailable Yaniv Singh Admitting Unavailable Yaniv Singh Attending Unavailable Fred Hernandez II Admitting UnavailFred Adam II Attending UnavailYaniv Ramírez Primary Care Unavailable Fred Hernandez II Admitting Unavailnery e Fred Hernandez II Attending Unavailabl e Yaniv Singh Primary Care Unavailable Curtis Morales Attending Yaniv Hernandez Primary Care Unavailable Curtis Morales Admitting Unavai lable Asaad, Imad Admitting Unavailable Asaad, Imad Attending Unavailable Yaniv Singh Primary Care Unavailable YunMarlee Primary Care Unavailable Saffle, Rosa M N Admitting Unavailable Saffle, Rosa M N Attending Unavailable Yun, Marlee L Attending Unavailable Yun, Marlee L Attending Unavailable Yun, Marlee L Attending Unavailable Yun, Marlee L Attending Unavailable Yun, Marele L Admitting Unavailable Yaniv Singh. Admitting Unavailable Ross, Yaniv E. Attending Unavailable Yun, Marlee L Attending Unavailable Yun, Marlee L Attending Unavailable Yun, Marlee L Admitting Unavailable Yun, Marlee L Attending Unavailable RODRIGO, LEA A Attending Unavailable RODRIGO, LEA A Attending Unavailable ELATTAR, OSAMA Attending Unavailable MELISSA RODRIGEZ Attending Unavailable AMANDAATTAR, OSAMA Referring Unavailable CRISSY SCHULER Attending Unavailable Allergies Allergy Classification Reported Allergen(s) Allergy Type Date of Onset Reaction(s) Facility (1 source) Hicks powder; Translations: [hicks powder] Propensity to adverse reactions (disorder) 1 [facility] (1 source) eggplant extract Drug Allergy 1 [facility] (6 sources) Sulfonamides (Antibiotic); Translations: [SULFA (SULFONAMIDE ANTIBIOTICS)] Propensity to adverse reactions (disorder) 0 Nausea [facility] (1 source) HYDROcodone Drug Allergy 0 [facility] Repository (1 source) Sulfonamides (Antibiotic) Drug allergy (disorder) 3 [facility] Repository (9 sources) Amoxicillin / Clavulanate; Translations: [amoxicillin-cla vulanate] Drug Allergy Unknown (qualifier value) [facility] (13 sources) Fluconazole; Translations: [fluconazole] Drug Allergy 3 Unknown (qualifier value) [facility] (9 sources) Sulfonamides (Antibiotic); Translations: [sulfa drugs] Drug allergy Unknown (qualifier value) [facility] (20 sources) traMADol; Translations: [tramadol] Drug Allergy 3 Unknown (qualifier value) [facility] (12 sources) Fluconazole Allergy to substance 3 [facility] (12 sources) Sulfonamides (Antibiotic) Drug Allergy 3 Unknown [facility] (13 sources) Amoxicillin-Pot Clavulanate; Translations: [AMOXICILLIN-POT CLAVULANATE] Drug Allergy 3 Unknown [facility] Work Phone: (4 sources) Amoxicillin; Translations: [amoxicillin] Drug Allergy 5 Unknown Reaction [facility] (4 sources) Clavulanate; Translations: [clavulanic acid] Drug Allergy 5 Unknown Reaction [facility] (1 source) Fluconazole Drug Allergy 5 [facility] (1 source) traMADol Drug Allergy 5 [facility] Repository Medications Current Medications Medication Drug Class(es) Dates Sig (Normalized) Sig (Original) acetaminophen 325 mg / HYDROcodone bitartrate 5 mg oral tablet (2 sources) Opioid Agonist Start: 09-05-2024 take 1 tablet by mouth three times daily as needed for pain [id number] 200 actuat albuterol 0.09 mg/actuat metered dose [...] TAKE 2 PUFFS EVERY 4 HOURS NEEDED, [id number], 148, cm, 07/19/23 10:14:00 EDT, Height/Length Dosing, 61.7, kg, 07/19/23 10:14:00 EDT, Weight Dosing Start Date: 08/15/23 Status: Ordered Quantity: 8.5 Unit: EA Repeat number: 1 Start: 08-15-2023 Albuterol (Eqv -ProAir HFA) 90 mcg/inh inhalation aerosol See Instructions, 8.5 EA, Refill(s) 0, TAKE 2 PUFFS EVERY 4 HOURS NEEDED, [facility], 148, cm, 07/19/23 10:14:00 EDT, Height/Length Dosing, [...] DAY, # 90 tab(s), Refills(s) 3, Pharmacy: [facility] STORE [id number], 147, cm, 02/13/24 10:53:00 EST, Height/Length Dosing, 59.9, kg, 02/13/24 10:53:00 EST, Weight Dosing Start Date: 04/01/24 Status: Ordered Quantity: 90.0 Unit: tab(s) Repeat number: 1 Start: 03-21-2023 End: 03-15-2024 take 1 tablet by mouth once daily digoxin 125 mcg (0.125 mg) Tab 125 mcg = 1 tab(s), Oral, Daily, X 90 day(s), # 90 tab(s), Refills(s) 3, [id number] 148, cm, 03/21/23 8:51:00 EST, Height/Length [...] DAY, # 90 tab(s), Refills(s) 1, Pharmacy: [facility] [id number], 147, cm, 09/19/23 10:15:00 EDT, Height/Length Dosing, 61.8, kg, 09/19/23 10:15:00 EDT, Weight Dosing Start Date: 10/18/23 Status: Ordered Start: 03-21-2023 take 1 tablet by bridget once daily levothyroxine 50 mcg (0.05 mg) Tab 50 mcg = 1 tab(s), Oral, Daily, # 90 tab(s), Refills(s) 1, [id number] 148, cm, 03/21/23 8:51:00 EST, Height/Length [...] 07/26/22 15:28:00 EDT, Height/Length Dosing, 63.6, kg, 05/23/23 15:28:00 EDT, Weight Dosing Start Date: 08/25/22 [...] 2018 11:00pm July 13, 2018 9:17am Vit C,T-Do-Kisyp-Lutein-Zeax an (Preservision Areds-2) 063-615-26-1 ry-gtll-oj-mg Capsule (6 sources) Start: 07-13-2018 End: 09-04-2024 take 1 capsule by mouth twice daily Vit C,R-Yp-Gogxk-Lutein-Zeaxan (Preservision Areds-2) 169-340-30-1 qu-wiua-qk-mg Capsule Discontinued 2 TAB PO Twice daily July 13, 2018 12:00am September 04, 2024 8:22am Start: 07-13-2018 take 1 capsule by id ut twice daily Vit C,L-Cq-Ndtqg-Lutein-Zeaxan (Preservision Areds-2) 848-546-19-1 dk-tcfb-oh-mg Capsule Active 2 TAB PO Twice daily July 13, 2018 12:00am Start: 07-13-2018 take 1 capsule by mo ut twice daily Vit C,H-Hm-Jshub-Lutein-Zeaxan (Preservision Areds-2) 253-950-31-1 yc-olyb-sd-mg Capsule Active 2 TAB PO Twice daily [...] upper and lower eyelids] Onset: 09-20-1909-19-2022 Episodic Neoplasms of unspecified nature or uncertain behavior (4 sources) Neoplasm of uncertain behavior of skin; Translations: [Neoplasm of uncertain behavior of skin] 05-23-2024 Episodic Osteoarthritis (12 sources) Osteoarthritis of hip; Translations: [Osteoarthritis of right hip joint] 07-05-2022 Chronic Osteoporosis (2 sources) Osteoporosis; Translations: [Age-related osteoporosis without current pathological fracture] Onset: 08-23-1907-05-2022 Chronic Other acquired deformities (1 source) Deformity of foot 05-13-2024 Episodic Other bone disease and musculoskeletal deformities (3 sources) Osteopenia 09-26-2022 Episodic Other INSPECTOR METAL FABRICATING infection and poliomyelitis (4 sources) 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 Other INSPECTOR METAL FABRICATING infection and poliomyelitis (8 sources) H/O: poliomyelitis; Translations: [Personal history of poliomyelitis] Onset: 07-25-1908-22-2024 Episodic Other connective tissue disease (2 sources) [...] [DISORDER AUTONOMIC NERVOUS SYS UNS] Onset: 03-11-19 23 Chronic Other nervous system disorders (1 source) Other disorders of autonomic nervous system; Translations: [OTH DISORDERS AUTONOMIC NERVOUS SYS] Onset: 12-11-19 Chronic Other nervous system disorders (2 sources) Other chronic pain; Translations: [Other chronic pain] Onset: 07-25-19 Chronic Other non-traumatic joint disorders (5 sources) Hip pain; Translations: [Pain in right hip] 05-07-2024 Episodic Other non-traumatic joint disorders (3 sources) Pain in right shoulder; Translations: [Pain in right shoulder] Onset: 10-21-19 Episodic Other non-traumatic joint disorders (3 sources) Pain in right hip; Translations: [Pain in right hip] Onset: 05-09-19 Episodic Other non-traumatic joint disorders (2 sources) [...] [Dermatophytosis, unspecified] Onset: 03-11-2022 Episodic Other aftercare (3 sources) 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 HPI Staff Pt presents today for acute visit. Rash on arms for the past 1-2 wks. Had been itchy. Has had relief with cortisone cream. Wants to have it looked at it. History of Present Illness 84-year-old female presenting with a worsening rash. The rash began several weeks ago and has progressively worsened, characterized by itching and redness, particularly on the elbows and arms. The patient has a history of eczema during high school, which was stress-induced, but resolved after the stressor was removed. The patient has been applying Jergens lotion regularly, which she suspects may have contributed to the itching. She has tried washing the affected areas thoroughly and applying hydrocortisone cream, which provided temporary relief from itching. The patient is reluctant to use oral steroids due to previous side effects, including constipation. The patient denies any recent changes in personal care products or exposure to new environments that could have triggered the rash. She has a history of a shoulder injury for which she was previously prescribed steroids, which were effective but caused gastrointestinal side effects. Review of Systems PHQ Score Initial Depression Screen Score: 0 SCORE - Dermatological: Reports worsening rash with itching and redness on elbows and arms. - Gastrointestinal: Denies recent changes in bowel habits except when on steroids. Physical Exam Vitals & Measurements T: 36.8 ???C(Oral) HR: 78(Peripheral) RR: 18 BP: 120/78 SpO2: 97% HT: 58 in HT: 147 cm WT: 129.852 lb WT: 58.9 kg BMI: 27.26 General: alert, no acute distress Skin: multiple erythematous patches along bilateral forearms extending into the elbow region. Head: no trauma, normocephalic Neck: Trachea midline, no adenopathy, no tenderness Eye: normal conjunctiva, sclera clear Cardiovascular: regular rate and rhythm, normal peripheral perfusion Respiratory: Lungs CTA, respirations non labored Back: No tenderness, Normal ROM, Normal alignment. Extremities: no deformity, no trauma Assessment/Plan 1. Rash (R21: Rash and other nonspecific skin eruption) - Suspected contact with an unknown irritant causing the rash. - Avoidance of potential irritants was recommended. - Patient declined oral steroids - f/U in 2 weeks if no improvement Ordered: triamcinolone topical, 1 charity, Topical, TID, 60 gram, Refill(s) 0, [facility]/pharmacy #[id number], 147, cm, 10/02/24 8:57:00 EDT, Height/Length Dosing, 58.9, kg, 10/02/24 8:57:00 EDT, Weight Dosing 2. BMI 27.0-27.9,adult (Z68.27: Body mass index [BMI] 27.0-27.9, adult) BMI 27.26 3. Overweight (BMI 25.0-29.9) (E66.3: Overweight) The standard range for ages 18 and older is >=18.5 and < 25 kg/m2. Your BMI today was above this range, this falls in the overweight to obese category and there are medical benefits to weight loss. We can offer counselling, referral, and/or medical support in addressing this problem. Your BMI and weight management will be followed at subsequent visits. 4. Nonsmoker (Z78.9: Other specified health status) Encouraged to continue as a non-smoker Ordered: Functional status assessed 1170F Medication list documented in medical record 1159F Review of all meds by a prescribing practitioner or clinical pharmacist documented in EHR 1160F Follow-up With When Contact Information Marlee Malcolm Within [address] [place] [address] [facility] [place] (1) Additional Instructions: Rash of forearms Patient Education Rash, Adult, Hlue-pc-Qpkz Problem List/Past Medical History Ongoing Asthma BMI 27.0-27.9,adult Cervical spondylosis Diverticular disease Foot deformity Foot drop Hypercholesterolemia Hypothyroidism Knee pain, left Left atrial enlargement Left bundle branch block Left sciatic nerve pain Lumbar spondylosis Murmur Non-seasonal allergic rhinitis due to pollen Nonsmoker Osteoarthritis of hip Osteopenia Overweight (BMI 25.0-29.9) Post-poliomyelitis muscular atrophy Pre-op exam Primary hypertension [...] mg ER Tab, 25 mg= 1 tab(s), Ora (more content not included)... [facility] Comment on above: Result Comment: Elec tronically Signed By: LEA WALLACE CNP\.br\Date and Time Signed: 10/02/24 12:12 EDT Lipid Panelon 09-26-2024 Cholesterol [Mass/Vol] 112 mg/dL Low 120-200 [facility] Comment on above: Performed By: #### 2 [id number] #### [facility] [address] [place] [address] Cholesterol in HDL [Mass/Vol] 40 mg/dL Invalid Interpretation Code [facility] Comment on above: Result Comment: '>= 60 LOW RISK' '<= 40 HIGH RISK' Performed By: #### 2 [id number] #### [facility] [address] [place] [address] Cholesterol in LDL [Mass/Vol] 58 mg/dL Normal <=129 [facility] Comment on above: Performed By: #### 2 [id number] #### [facility] [address] [place] [address] Cholesterol in VLDL [Mass/Vol] 33 mg/dL Normal 7-40 [facility] Comment on above: Performed By: #### 2 [id number] #### [facility] [address] [place] [address] Triglyceride [Mass/Vol] 163 mg/dL High <=149 [facility] Comment on above: Performed By: #### 2 [id number] #### [facility] [address] [place] [address] Ambulatory Visit Summaryon 0 09-09-2024 Ambulatory Visit [...] Appointments Monday 8:40 AM EDT With: Where: [address] [id number]- Monday 1:40 PM EST With: Marlee Martinez Where: [address] [id number] 11:00 AM EDT With: Where: [address] [address]- You Need to Complete the Following Lipid Panel, Blood, Routine collect, 09/09/24, Order for future visit, Lab Collect, Hypercholesterolemia, Required & Missing, Print Label By Order Location BD Bone Density DEXA, 09/09/24, Routine, Order for Future Visit, Transport Mode: Ambulatory, Reason: Post menopausal, Ovarian failure due to menopause, No, 128, pp_set_radiology_subspeci alty, Not Required, [facility] Medications What How Much When Why Instructions [...] us fo (more content not included)... [facility] Family Medicine Office/Clini c Jaylene 09-09-2024 Family Medicine Office/Clinic Note Family Medicine [...] of clutter to prevent tripping and/or falling. [place] Advance Directives reviewed, present at home. Encouraged [...] patient request, she will have completed at [facility] prior to next PCP visit. Mammogram: Patient [...] to pro (more content not included)... [facility] Comment on above: Result Comment: Elec tronically Signed By: Yun COOK FRY, Marlee L\.br\Date and Time Signed: 09/09/24 17:53 EDT\.br\Electronically Co-Signed By: Juliana Glez\.br\Date and Time Co-Signed: 09/09/24 13:48 EDT [facility] ECG *CARDIOLOGY ONLY*on 09-05-2024 [facility] ECG *CARDIOLOGY ONLY* [facility] Main [place] [address] [id number] Electrocardiograph Report Signed Patient: Una Gomez MR#: [id number] : 1940 Acct:[id number] Age/Sex: 84 / F ADM Date: 09/05/24 Loc: EKGCARDIO [facility]: Curtis Morales MD Ordering Provider: [...] previous ECGs available Confirmed by Curtis Morales ([id number]) on 09/09/2024 4:23:45 PM Referred By: Electronically Signed By: Curtis Morales Transcribed By: MUS Signed By Curtis Morales MD 09/09/24 1623 Normal [facility] X-ray reportOrdered By: Pedrito Webster on 09-05-2024 Study report [facility] Main [address] [address] XRay Report Signed Patient: Una Gomez MR#: [id number] : 1940 Acct:[id number] Age/Sex: 84 / F ADM Date: 5 Loc: ER Room: Type: [facility] ER Attending Dr: Copies to: Rosa M [...] Webster M.D. 09/05/2024 8:44 PM Dictation Location: RADIO-PC-20 Transcribed By: NURYS 09/05/242043 Dictated By: Rock Webster DO 09/05/242043 Signed By: 09/05/242043 [facility] XR shoulder RT min 2V*on XR shoulder RT min 2V* [facility] [place] [address] XRay Report Signed Patient: Una Gomez MR#: [id number] : 1940 Acct:[id number] Age/Sex: 84 / F ADM Date: 09/05/24 Loc: ER Room: Type: [facility] ER Attending Dr: Copies to: Rosa M [...] Webster M.D. 09/05/2024 8:44 PM Dictation Location: RADIO-PC-20 Transcribed By: [facility] 09/05/242043 Dictated By: Rock Webster DO 09/05/242043 Signed By: 09/05/242043 [place] [facility] Ambulatory Visit Summaryon 0 08-29-2024 Ambulatory Visit Summary Ambulatory Visit Summary UNA GOMEZ :1940 Visit Date:08/29/2024 Ambulatory Visit Instructions Your [...] Follow-Up Appointments Monday 11:00 AM EDT Where: [place] [id number]- Medications What How Much When Why Instructions New ergocalciferol (Vitamin D 50,000 intl units (1.25 mg) oral capsule) 1 Capsules By Mouth 2 times a week Pre-op exam Vitamin D deficiency Refills: 3 Pickup at [facility]/pharmacy #[id number] Unchanged acetaminophen (Tylenol Extra Strength) 500 Milligram [...] Information [facility]/pharmacy #[id number]: [address], [place] [id number] [phone] Allergies Augmentin (Unknown) Diflucan (Unknown) sulfa drugs [...] signed up for this yet, please contact [employer] at [phone] to get signed up today. Language Information Language assistance services are available as needed. Normal [facility] Family Medicine Office/Clini c Noteon 08-29-2024 Family Medicine Office/Clinic Note Family Medicine Office/Clinic Note Chief Complaint surgical clearance HPI Staff Patient is presenting for pre-surgical clearance Ortho - Dr. Hernandez at [facility] Pre-testing, labs done Concerns: Refills: unsure History [...] 2x/Wk, # 24 cap(s), Refills(s) 3, Pharmacy: [facility]/pharmacy #[id number], 147, cm, 08/29/24 14:41:00 EDT, Height/Length Dosing, 57.9, kg, 08/29/24 14:41:00 EDT, Weight Dosing ECG 12 Lead Adult [facility] External Ambulatory Referral 2. Vitamin D deficiency (E55.9: Vitamin D deficiency, unspecified) vitamin D sent in Ordered: ergocalciferol, 50,000 International_Unit = 1 cap(s), Oral, 2x/Wk, # 24 cap(s), Refills(s) 3, Pharmacy: [facility]/pharmacy #[id number], 147, cm, 08/29/24 14:41:00 EDT, Height/Length Dosing, 57.9, kg, 08/29/24 14:41:00 EDT, Weight Dosing [facility] External Ambulatory Referral 3. Left bundle branch block (I44.7: Left bundle-branch block, unspecified) PT WILL BE REFERRED TO [facility] FOR CARDIAC CLEARANCE FOR SURGERY Ordered: [facility] External Ambulatory Referral 4. Left atrial enlargement (I51.7: Cardiomegaly) ABNORMAL EKG IN OFFICE Ordered: [facility] External Ambulatory Referral 5. BMI 26.0-26.9,adult (Z68.26: [...] 50,000 intl units (1.25 mg) oral capsule, 355[address] International_Unit= 1 cap(s), Oral, 2x/Wk, 3 refills [...] virus vaccine, inactivated 12/14/2022 Recorded SARS-CoV-2 (COVID-19) [id number] 02/10/2022 Recorded influenza virus vaccine, inactivated 12/27/2021 Recorded SARS-CoV-2 (COVID-19) mRNA-1273 vaccine 03/17/2021 Recorded 2022-07-04: [id number] influenza virus vaccine, inactivated 02/10/2021 Recorded pneumococcal 23-valent vaccine 09/11/2020 Recorded SARS-CoV-2 (COVID-19) mRNA-1273 vaccine 05/05/2020 Recorded SARS-CoV-2 (COVID-19) mRNA-1273 (more content not included)... [facility] Comment on above: Result Comment: Elec tronically Signed By: Marlee Martinez\.br\Date and Time Signed: 08/29/24 15:48 EDT Provider Letteron 08-29-2024 Provider Letter Provider Letter [address] [place], [place] [phone] August 29, 2024 UNA GOMEZ [address] [place] [id number] : [address] Hernandez, The above patient has been evaluated at your request for preoperative clearance. After assessment of available pertinent labs and diagnostic tests, I feel this patient is medically optimized for surgery. Final discretion of whether the patient is cleared for surgery remains up to the surgeon/anesthesiologist. Thank you, MACK Watt [facility] A1C with Estimated Average G suad 08-22-2024 Glucose [Mass/Vol] 103 mg/dL Normal [facility] Comment on above: Result Comment: PERF ORMED BY: [facility] [address] [place] [address] PATHOLOGIST PEST CONTROL SERVICE REPRESENTATIVE BRENT LOPEZ M.D. Performed By: #### A LB, A1C WTH eA, MRSA - MSSA PCR, HGB, [id number] #### [address] #### NICOTINE #### [facility] , Albumin Levelon 08-22-2024 Albumin [Mass/Vol] 4.3 g/dL Normal 3.5-5.7 [facility] Comment on above: Performed By: #### A LB, A1C WTH eA, MRSA - MSSA PCR, HGB, [id number] #### [address] #### NICOTINE #### [facility] , Albumin [Mass/volume] in Ser um or Plasma by Bromocresol green (BCG) dye binding methoOrdered By: Fred Hernandez on 08-22-2024 Albumin BCG dye [Mass/Vol] 4.3 g/dL 3.5-5.7 [facility] Blood estimated average gluc ose determination by estimation from glycated hemoglobinOrdered By: Fred Hernandez on 08-22-2024 Average glucose Estimated from glycated hemoglobin (Bld) [Mass/Vol] 103 mg/dL [facility] Cotinine [Mass/volume] in Se rum or PlasmaOrdered By: Fred Hernandez on 08-22-2024 Cotinine [Mass/Vol] <1.0 ng/mL . [facility] Comment on above: This test was develo ped and its performance characteristicsdetermined by [employer]. It has not been cleared orapproved by the Food and Drug Administration.Cotinine levels greater than 20.0 are consistent with theuse of tobacco or tobacco cessation products.Performed at: [address] [id number] Director: Kayleigh Lawrence MD, Phone: [phone] Hemoglobin A1c/Hemoglobin.to parth in BloodOrdered By: Fred Hernandez on 08-22-2024 HbA1c (Bld) [Mass fraction] 5.2 % Normal 4.3-5.6 [facility] Comment on above: Increased risk for d iabetes: 5.7 - 6.4diabetes: >6.4glycemic control for adults with diabetes: <7.0 Result Comment: Incr eased risk for diabetes: 5.7 - 6.4 diabetes: >6.4 glycemic control for adults with diabetes: <7.0 Performed By: #### A LB, A1C WTH eA, MRSA - MSSA PCR, HGB, [id number] #### [address] #### NICOTINE #### [facility] , Hemoglobin [Mass/volume] in BloodOrdered By: Fred Hernandez on 08-22-2024 Hemoglobin (Bld) [Mass/Vol] 13.1 g/dL Normal 11.8-15.4 [facility] Comment on above: Result Comment: PERF ORMED BY: [place] [address] PATHOLOGIST [employer]ST CONTROL SERVICE REPRESENTATIVE BRENT LOPEZ M.D. Performed By: #### A LB, A1C WTH eA, MRSA - MSSA PCR, HGB, [id number] #### [address] #### NICOTINE #### [facility] , MRSA - MSSA Nasal PCRon 08-04 MRSA - MSSA Nasal PCR MRSA Result MRSA Negative MSSA Result MSSA Negative Real-time PCR Test performed by real-time PCR Reference Range Reference Range for all targets = Neg / Not Detected Reference Note 20 ---- Reference Note 26 ---- PERFORMED BY: [place] [id number] PATHOLOGIST PEST CONTROL SERVICE REPRESENTATIVE BRENT LOPEZ M.D. Normal [facility] Comment on above: Performed By: #### A LB, A1C [facility] eA, MRSA - MSSA PCR, HGB, [id number] #### [place] [address] [place] #### NICOTINE #### [facility] , Nicotine [Mass/volume] in Se rum or PlasmaOrdered By: Fred Hernandez on 08-22-2024 Nicotine [Mass/Vol] <1.0 ng/mL . [facility] Comment on above: This test was develo ped and its performance characteristicsdetermined by [facility]. It has not been cleared orapproved by the Food and Drug Administration.Nicotine levels greater than 2.0 are consistent with theuse of tobacco or tobacco cessation products. Nicotine/Cotinine Bloodon Cotinine, Blood <1.0 Normal . [facility] Comment on above: Result Comment: This test was developed and its performance characteristics determined by [facility]. It has not been cleared or approved by the Food and Drug Administration. Cotinine levels greater than 20.0 are consistent with the use of tobacco or tobacco cessation products. Performed at: [address] [id number] Roller Varnisher: Kayleigh Lawrence MD, Phone: [phone] PERFORMED BY: [place] [address] PATHOLOGIST PEST CONTROL SERVICE REPRESENTATIVE BRENT LOPEZ M.D. Performed By: #### A LB, A1C [facility] eA, MRSA - MSSA PCR, HGB, [id number] #### [address] #### NICOTINE #### [facility] , Nicotine, Blood <1.0 Normal . [facility] Comment on above: Result Comment: This test was developed and its performance characteristics determined by [facility]. It has not been cleared or approved by the Food and Drug Administration. Nicotine levels greater than 2.0 are consistent with the use of tobacco or tobacco cessation products. Performed By: #### A LB, A1C WTH eA, MRSA - MSSA PCR, HGB, [id number] #### [address] #### NICOTINE #### [facility] , No Panel InformationOrdered By: Fred Hernandez on 08-22-2024 Nasal Screen MRSA/MSSA [facility] Vitamin D 25 Hydroxy Totalon 08-22-2024 Vitamin D 25 Hydroxy Total 20.1 ng/mL Low 30-100 [facility] Comment on above: Result Comment: ANGELITO MIN D STATUS 25(OH)VITAMIN D RANGE (ng/mL) Deficient <20 Insufficient 20 to <30 Sufficient 30 to 100 Reference: Divya Grant Bischoff-Ferrari HA, et al. Evaluation,treatment, and prevention of vitamin D deficiency; an Endocrine Society clinical practice guideline. JCEM. 2010; 96(7):1911-. PERFORMED BY: [place] [address] PATHOLOGIST PEST CONTROL SERVICE REPRESENTATIVE BRENT LOPEZ M.D. Performed By: #### A LB, A1C WTH eA, MRSA - MSSA PCR, HGB, [id number] #### [address] #### NICOTINE #### [facility] , Vitamin D+Metabolites [Mass/ volume] in Serum or PlasmaOrdered By: Fred Hernandez on 08-22-2024 Vitamin D+Metabolites [Mass/Vol] 20.1 ng/mL Low 30-100 [facility] Comment on above: VITAMIN D STATUS 25( [place])VITAMIN D RANGE (ng/mL) Deficient <20 Insufficient 20 to <30Sufficient 30 to 100Reference: Divya Grant, La Nena VIDES, et al. Evaluation,treatment, and [...] Follow-Up Appointments Monday 11:00 AM EDT Where: [facility] [address] [address]- Medications What How Much When Instructions Unchanged [...] [facility] #[id number]: [address], [place] [phone] Allergies Augmentin (Unknown) Diflucan (Unknown) sulfa drugs [...] for choosing us for your care. [facility] CHEMISTRYOrdered By: SYSTEM SYSTEM on 08-20-2024 [...] 08-20-2024 Albumin [Mass/Vol] 4.2 g/dL Normal 3.3-5.0 [facility] Comment on above: Performed By: #### 2 [id number] #### [facility] [address] [place] [address] Albumin/Globulin [Mass ratio] 1.8 {ratio} Normal 1.1-2.2 [facility] Comment on above: Performed By: #### 2 [id number] #### [facility] [address] [place] [address] Alk Phos 86 Int._Unit/L Normal 21-98 [facility] Comment on above: Performed By: #### 2 186792 #### [facility] [address] [place] [address] ALT 17 Int._Unit/L Normal 6-46 [facility] Comment on above: Performed By: #### 2 [id number] #### [facility] [address] [place] [address] Anion gap [Moles/Vol] 10 mmol/L Normal 6-16 [facility] Comment on above: Performed By: #### 2 122403 #### [facility] [address] [place] [address] AST 21 Int._Unit/L Normal 5-43 [facility] Comment on above: Performed By: #### 2 [id number] #### [facility] [address] [place] [address] Bili Total 0.7 mg/dL Normal 0.0-1.1 [facility] Comment on above: Performed By: #### 2 582575 #### [facility] [address] [place] [address] BUN/Creat Ratio 22 No Units High 10-20 [facility] Comment on above: Performed By: #### 2 [id number] #### [facility] [address] [place] [address] Calcium [Mass/Vol] 9.5 mg/dL Normal 8.9-11.1 [facility] Comment on above: Performed By: #### 2 624817 #### [facility] [address] [place] [address] Chloride [Moles/Vol] 104 mmol/L Normal 101-111 [facility] Comment on above: Performed By: #### 2 440167 #### [facility] [address] [place] [address] CO2 [Moles/Vol] 27 mmol/L Normal 21-31 [facility] Comment on above: Performed By: #### 2 178537 #### [facility] [address] [place] [address] Creatinine [Mass/Vol] 0.6 mg/dL Normal 0.5-1.3 [facility] Comment on above: Performed By: #### 2 440707 #### [facility] [address] [place] [address] Globulin (S) [Mass/Vol] 2.4 g/dL Normal 1.4-4.0 [facility] Comment on above: Performed By: #### 2 098666 #### [facility] [address] [place] [address] Glucose [Mass/Vol] 124 mg/dL Normal 55-199 [facility] Comment on above: Performed By: #### 2 512131 #### [facility] [address] [place] [address] Potassium [Moles/Vol] 4.2 mmol/L Normal 3.5-5.3 [facility] Comment on above: Performed By: #### 2 789888 #### [facility] [address] [place] [address] Protein [Mass/Vol] 6.6 g/dL Normal 6.0-7.8 [facility] Comment on above: Performed By: #### 2 872308 #### [facility] [address] [place] [address] Sodium [Moles/Vol] 137 mmol/L Normal 135-145 [facility] Comment on above: Performed By: #### 2 873067 #### [facility] [address] [place] [address] Urea nitrogen [Mass/Vol] 13 mg/dL Normal 5-21 [facility] Comment on above: Performed By: #### 2 416633 #### [facility] [address] [place] [address] Family Medicine Office/Clini c Noteon 08-20-2024 Family Medicine Office/Clinic Note Family Medicine Office/Clinic Note Chief Complaint The patient presents with difficulty walking due to arthritis and hip pain. HPI Staff Una Traore) is an 84 year old female presenting for 6month med f/u, htn, thyroid As per EL- 02/13/24- lab recheck today Patient is here [...] Shoulder replace (more content not included)... Normal [facility] Comment on above: Result Comment: Elec tronically Signed By: Francisco BELTRAN, Yaniv Pope\.br\Date and Time Signed: 08/20/24 11:48 EDT TSH With T4fr Reflexon 08-20 TSH Qn 1.36 m[IU]/L Normal 0.34-5.60 [facility] Comment on above: Performed By: #### 1 [id number] #### [facility] [address] [place] [address] eGFRon 08-20-2024 eGFR 87 mL/min/1.73 m2 Normal >=59 [facility] Comment on above: Performed By: #### 1 [id number] #### [facility] [address] [place] [address] Family Medicine Office/Clini c Noteon 08-01-2024 Family Medicine Office/Clinic Note Family Medicine Office/Clinic Note HPI Staff Una is an 84 year old [...] day(s), # 14 tab(s), Refills(s) 0, Pharmacy: [id number], 147, cm, 08/01/24 14:06:00 EDT, Height/Length [...] virus vaccine, inactivated 12/14/2022 Recorded SARS-CoV-2 (COVID-19) mRNAMUL.ORD![id number] 02/10/2022 Recorded influenza virus vaccine, inactivated 12/27/2021 [...] Recorded influenza, whole 01/17/2005 Recorded Normal [facility] Comment on above: Result Comment: Elec tronically Signed By: Francisco BELTRAN, Yaniv Pope\.br\Date and Time Signed: 08/01/24 14:24 EDT Office Visiton 07-24-2024 Follow-up visit [id number] Una Gomez 1940 F Date Provider Department Center 07/24/2024 [facility] No family history on file Level of Service:06497 DE OFFICE/OUTPATIENT NEW LOW MDM 30 MINUTES (GC) Reason for Visit and Comments: Hip Pain [377764] - Right Leg Pain [545545] - Right Normal [facility] Optical coherence tomography study reporton 06-26-2024 [facility] Study observation (narrative) [facility] Ambulatory Visit Summaryon 0 05-20-2024 Ambulatory Visit [...] EDT With: Francisco BELTRAN, Yaniv Pope Where: [address] [address]- Monday 11:00 AM EDT With: Where: [address] [address]- Medications What How Much When Instructions Unchanged [...] for choosing us for your care. [facility] Family Medicine Office/Clini c Noteon 05-20-2024 Family Medicine [...] cough and congestion, 200 mL, [facility](s) 0[facility] 147, cm, 05/20/24 10:52:00 EDT, Height/Length Dosing, 58.5, kg, 05/20/24 10:52:00 EDT, Weight Dosing methylPREDNISolone, = 1 packet(s), Oral, As Directed, as directed on package labeling, X 6 day(s), # 21 tab(s), Refills(s) 0, [id number], 147, cm, 05/20/24 10:52:00 EDT, Height/Length Dosing, 58.5, kg, 05/20/24 10:52:00 EDT, Weight Dosing Influenza Type A&B POC 16202 Rapid COVID POC 31410 3. BMI 27.0-27.9,adult (Z68.27: Body mass index [BMI] 27.0-27.9, adult) BMI education given Ordered: azithromycin, = 1 packet(s), Oral, As Directed, as directed on package labeling, X 5 day(s), # 6 tab(s), Refills(s) 0, [id number], 147, cm, 05/20/24 10:52:00 [...] day(s), # 21 tab(s), Refills(s) 0, [id number], 147, cm, 05/20/24 10:52:00 EDT, Height/Length Dosing, 58.5, kg, 05/20/24 10:52:00 EDT, Weight Dosing 4. Non-smoker (Z78.9: Other specified health status) continue not smoking Ordered: azithromycin, = 1 packet(s), Oral, As Directed, as directed on package labeling, X 5 day(s), # 6 tab(s), Refills(s) 0, [id number], 147, cm, 05/20/24 10:52:00 EDT, Height/Length Dosing, 58.5, kg, 05/20/24 10:52:00 EDT, Weight Dosing brompheniramine/dextromet horphan/PSE, 5 mL, Oral, QID for cough and congestion, 200 mL, Refill(s) 0, [facility], 147, cm, 05/20/24 10:52:00 EDT, Height/Length Dosing, 58.5, kg, 05/20/24 10:52:00 EDT, Weight Dosing methylPREDNISolone, = 1 packet(s), Oral, As Directed, as directed on package labeling, X 6 day(s), # 21 tab(s), Refills(s) 0, [id number], 147, cm, 05/20/24 10:52:00 EDT, Height/Length Dosing, 58.5, kg, 05/20/24 10:52:00 EDT, Weight Dosing Orders: levothyroxine, See Instructions, TAKE 1 TABLET BY MOUTH EVERY DAY, # 90 tab(s), Refills(s) 1, [id number], 147, cm, 05/20/24 10:52:00 EDT, Height/Length Dosing, 58.5, (more content not included)... [facility] Comment on above: Result Comment: Elec tronically Signed By: Yun CUMMINGS, Marlee Cortés\.br\Date and Time Signed: 03/17/25 11:06 EDT Ambulatory Visit Summaryon 0 05-13-2024 [...] PM EDT With: Yaniv Singh MD Where: [address] [id number]- Monday 11:00 AM EDT With: Where: [address] [id number]- Medications What How Much When Instructions Unchanged [...] choosing us for your care. Normal [facility] Family Medicine Office/Clini c Noteon 05-13-2024 Family Medicine Office/Clinic Note Family Medicine Office/Clinic Note Chief Complaint Foot pain The patient presents with pain in the right pinky toe, which is now growing underneath the adjacent toe. HPI Staff Una is a 84 year old female presenting with Pain characteristics: Pain location: right foot. Little toe. Intensity:10 Onset: Has been ongoing for yrs. This [...] fitting for suitable footwear, though contact with [facility] [place] not currently be made due to [...] to her footwear needs, I advised contacting [facility] as soon as they resume operations, to [...] See Instructions, (more content not included)... Normal [facility] Comment on above: Result Comment: Elec tronically Signed By: Francisco BELTRAN, Yaniv Pope\.br\Date and Time Signed: 05/13/24 13:49 EDT X-ray reportOrdered By: Danielle Jarrett on 05-08-2024 Study report [facility] [address] [place] [address] XRay Report Signed Patient: Una Gomez MR#: [id number] : 1940 Acct:[id number] Age/Sex: 84 / F ADM Date: 5 Loc: [facility] [place] Room: Type: [facility] Attending Dr: Fred Hernandez II, MD Copies [...] Nory Jarrett M.D.05/08/2024 4:04 PM Dictation Location: [place] [address] Transcribed By: [facility] 05/08/24 1603 Dictated By: Nory Jarrett MD 05/08/24 1602 Signed By: 05/08/24 6698 [facility] Work Phone: XR hip RT min 2V(w/wo pelvis )*on 05-08-2024 XR hip RT min 2V(w/wo pelvis)* [facility] [address] [place] [address] XRay Report Signed Patient: Uan Gomez MR#: [id number] : 1940 Acct:[id number] Age/Sex: 84 / F ADM Date: 05/08/24 Loc: [facility] [place] Room: Type: [facility] Attending Dr: Fred Hernadnez II, MD Copies to: Fred Hernandez MD [...] Nory Jarrett M.D.05/08/2024 4:04 PM Dictation Location: [place] [address] Transcribed By: [facility] 05/08/24 1604 Dictated By: Nory Jarrett MD 05/08/24 1602 Signed By: 05/08/24 1604 Normal [facility] Family Medicine Office/Clini c Noteon [...] home and fear of being dizzy. Ordered: [facility] [place] 2. BMI 27.0-27.9,adult (Z68.27: Body mass index [BMI] 27.0-27.9, adult) Monitor weight and provide guidance on maintaining a healthy BMI through balanced diet and exercise, as discussed with the patient. Ordered: [facility] [place] [place] 3. Overweight (BMI 25.0-29.9) (E66.3: Overweight) Reinforce healthy lifestyle modifications, including diet and physical activity, to maintain or reduce weight and improve overall health, considering the patient's age and mobility status. Ordered: [facility] [place] Referral 4. 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 Ordered: [facility] Amb[facility] Referral 5. 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 Continuation of current routine, with consideration for orthopedic assessment if functional concerns arise. Ordered: [facility] Ambulatory Referral 6. Nonsmoker (Z78.9: Other [...] including Tylen (more content not included)... [facility] Comment on above: Result Comment: Elec tronically Signed By: Francisco BELTRAN, Yaniv Sanabria.br\Date and Time Signed: 04/08/24 11:14 EST Optical coherence tomography study reporton 02-21-2024 [facility] Study observation (narrative) [facility] Ambulatory Visit Summaryon 1 04-15-2023 Ambulatory Visit [...] PM EDT With: Yaniv Singh MD Where: [address] [address]- Monday 11:00 AM EDT With: Where: [address] [address]- Medications What How Much When Why Instructions New methylPREDNISolone (Medrol Dosepack 4 mg Tab) 1 Packets By Mouth As Directed Primary hypertension Hypothyroidism BMI 27.0-27.9,adult Overweight Nonsmoker Osteoarthritis of hip Left sciatic nerve pain Post-poliomyelitis muscular atrophy Nasal congestion Duration: 6 Days as directed on package labeling Pickup at [facility]/pharmacy #6199 Unchanged acetaminophen (Tylenol Extra Strength) 500 Milligram [...] Information [facility]/pharmacy #6177: [address], [place] [phone] Allergies Augmentin (Unknown) Diflucan (Unknown) sulfa drugs [...] choosing us for your care. Normal [facility] Family Medicine Office/Clini c Noteon 02-13-2024 Family Medicine Office/Clinic Note Family Medicine Office/Clinic Note [facility] Staff Una is an 83 year old [...] day(s), # 21 tab(s), Refills(s) 0, [facility], 147, cm, 02/13/24 10:53:00 EST, Height/Length [...] day(s), # 21 tab(s), Refills(s) 0, Pharmacy: [facility] #6177, 147, cm, 02/13/24 10:53:00 EST, Height/Length [...] day(s), # 21 tab(s), Refills(s) 0, [facility], 147, cm, 02/13/24 10:53:00 [...] (Most Recent (more content not included)... [facility] Comment on above: Result Comment: Elec tronically Signed By: Francisco BELTRAN, Yaniv Sanabria.deshawn\Date and Time Signed: 02/13/24 11:19 EST Ambulatory [...] AM EST With: Yaniv Singh MD Where: [address] [address]- Monday 11:00 AM EDT With: Where: [address] [address]- Medications What How Much When Why Instructions New methylPREDNISolone (Medrol Dosepack 4 mg Tab) 1 Packets By Mouth As Directed Cellulitis Left sciatic nerve pain Duration: 6 Days as directed on package labeling Pickup at [facility]/pharmacy #6828 Unchanged acetaminophen (Tylenol Extra Strength) 500 Milligram [...] to 27.9 in adult Nonsmoker Pharmacy Information [facility]/pharmacy #6177: [address], [place] [phone] Allergies Augmentin (Unknown) Diflucan (Unknown) sulfa drugs [...] weight is (more content not included)... [facility] Family Medicine Office/Clini c Noteon 01-16-2024 [...] virus vaccine, inactivated 12/14/2022 Recorded SARS-CoV-2 (COVID-19) mRNAMUL.ORD![id number] 02/10/2022 Recorded influenza virus vaccine, inactivated 12/27/2021 Recorded SARS-CoV-2 (COVID-19) mRNA-1273 vaccine 03/17/2021 Recorded 2022-07-04: [id number] influenza virus vaccine, inactivated 02/10/2021 Recorded pneumococcal 23-valent vaccine 09/11/2020 Recorded SARS-CoV-2 (COVID-19) mRNA-1273 vaccine 05/05/2020 Recorded SARS-CoV-2 (COVID-19) mRNA-1273 vaccine 04/07/2020 Recorded pne (more content not included)... [facility] Comment on above: Result Comment: Elec tronically Signed By: Francisco BELTRAN, Yaniv Sanabria.deshawn\Date and Time Signed: 01/16/24 11:28 EST Family [...] No. Ye (more content not included)... [facility] Comment on above: Result Comment: [...] EST With: Francisco BELTRAN, Yaniv Pope Where: [address] [address]- Monday 11:00 AM EDT With: Where: [address] [address]- Medications What How Much When Why Instructions New triamcinolone topical (triamcinolone Top 0.1% Crm 15 gram) 1 Application Topical 3 times a day BMI 27.0-27.9,adult Overweight with body mass index (BMI) of 27 to 27.9 in adult Nonsmoker Pickup at [facility]/pharmacy #5872 Unchanged acetaminophen (Tylenol Extra Strength) 500 Milligram [...] [facility]/pharmacy #6177: [address], [place] [phone] Allergies Augmentin (Unknown) Diflucan (Unknown) sulfa drugs [...] choosing us for your care. [facility] Family Medicine Office/Clini c Noteon 01-03-2024 Family [...] charity, Topical, TID, 30 gram, Refill(s) 0, [facility] #6177, 147, cm, 01/03/24 11:43:00 EDT, Height/Length [...] charity, Topical, TID, 30 gram, Refill(s) 0, [facility]/pharmacy #6177, 147, cm, 01/03/24 11:43:00 EDT, Height/Length Dosing, 60.2, kg, 01/03/24 11:43:00 EDT, Weight Dosing Orders: cephalexin, 500 mg = 1 cap(s), Oral, q12hr, # 20 cap(s), Refills(s) 0, Pharmacy: [facility]/pharmacy #6177, 147, cm, 01/03/24 11:43:00 EDT, Height/Length [...] virus vaccine, inactivated 12/14/2022 Recorded SARS-CoV-2 (COVID-19) mRNAMUL.ORD![id number] 12/ (more content not included)... [facility] Comment on above: Result Comment: Elec tronically Signed By: Marlee Martinez\.br\Date and Time Signed: 01/03/24 12:21 EDT 36on 12-12-2023 36 Regarding dig level from 12/11/2023: Melissa Rodrigez, FRANSISCO Clarke MA Please let her know her digoxin level looks good. Thanks Patient informed. Normal [facility] CHEMISTRYOrdered By: SYSTEM SYSTEM on 12-11-2023 Digoxin Lvl 0.6 ng/mL Normal 0.5 - 1.9 ng/mL Remisol Chem Digoxinon 12-11-2023 Digoxin Lvl 0.6 ng/mL Normal 0.5-1.9 [facility] Comment on above: Performed By: #### 2 [id number] ####[facility] [address] [place] [address] Office Visiton 11-30-2023 Follow-up visit [id number] Una Gomez 1940 F Date Provider Department Center 11/30/2023 MELISSA DELACRUZ [facility]3] Hos No family history on file Level of Service:68068 DE OFFICE/OUTPATIENT ESTABLISHED LOW MDM 20 MIN Normal [facility] Optical coherence tomography study reporton 11-20-2023 [facility] Study observation (narrative) [facility] Ambulatory Visit Summaryon 0 09-19-2023 Ambulatory Visit [...] AM EST With: Yaniv Singh MD Where: [facility] [place] Normal [address] [place] [address]- \.br\ Medications\.br \ What How Much When [...] choosing us for your care.\.br\ \.br\ [facility] Family Medicine Office/Clini c Noteon 09-19-2023 Family [...] to not smoke. Orders: Lab Specimen Collect 900[address] Lipid Panel Follow-up No qualifying data available [...] virus vaccine, inactivated 12/14/2022 Recorded SARS-CoV-2 (COVID-19) mRNAMUL.ORD![id number] 02/10/2022 Recorded influenza virus vaccine, inactivated 12/27/2021 Recorded SARS-CoV-2 (COVID-19) mRNA-1273 vaccine 03/17/2021 Recorded 2022-07-04: TPV80 influenza virus vaccine, inactivated 02/10/2021 Recorded pneumoco (more content not included)... [facility] Comment on above: Result Comment: [...] 09-18-2023 Albumin [Mass/Vol] 4.5 g/dL Normal 3.3-5.0 [facility] Comment on above: Performed By: #### 2 [id number] #### [facility] [address] [place] [address] Albumin/Globulin (S) [Mass conc ratio] 1.6 Normal 1.1-2.2 [facility] Comment on above: Performed By: #### 2 [id number] #### [facility] [address] [place] [address] ALP [Catalytic activity/Vol] 81 Int._Unit/L Normal 21-98 [facility] Comment on above: Performed By: #### 2 [id number] #### [facility] [address] [place] [address] ALT No additional P-5'-P [Catalytic activity/Vol] 23 Int._Unit/L Normal 6-46 [facility] Comment on above: Performed By: #### 2 [id number] #### [facility] [address] [place] [address] Anion gap [Moles/Vol] 11 mmol/L Normal 6-16 [facility] Comment on above: Performed By: #### 2 [id number] #### [facility] [address] [place] [address] AST [Catalytic activity/Vol] 25 Int._Unit/L Normal 5-43 [facility] Comment on above: Performed By: #### 2 [id number] #### [facility] [address] [place] [address] Bilirubin [Mass/Vol] 1.4 mg/dL High 0.0-1.1 [facility] Comment on above: Performed By: #### 2 [id number] #### [facility] [address] [place] [address] Calcium [Mass/Vol] 9.4 mg/dL Normal 8.9-11.1 [facility] Comment on above: Performed By: #### 2 [id number] #### [facility] [address] [place] [address] Chloride [Moles/Vol] 105 mmol/L Normal 101-111 [facility] Comment on above: Performed By: #### 2 [id number] #### [facility] [address] [place] [address] CO2 [Moles/Vol] 25 mmol/L Normal 21-31 [facility] Comment on above: Performed By: #### 2 [id number] #### [facility] [address] [place] [address] Creatinine [Mass/Vol] 0.7 mg/dL Normal 0.5-1.3 [facility] Comment on above: Performed By: #### 2 [id number] #### [facility] [address] [place] [address] Globulin (S) [Mass/Vol] 2.8 g/dL Normal 1.4-4.0 [facility] Comment on above: Performed By: #### 2 [id number] #### [facility] [address] [place] [address] Glucose [Mass/Vol] 96 mg/dL Normal 55-199 [facility] Comment on above: Performed By: #### 2 [id number] #### [facility] [address] [place] [address] Potassium [Moles/Vol] 4.1 mmol/L Normal 3.5-5.3 [facility] Comment on above: Performed By: #### 2 [id number] #### [facility] [address] [place] [address] Protein [Mass/Vol] 7.3 g/dL Normal 6.0-7.8 [facility] Comment on above: Performed By: #### 2 [id number] #### [facility] [address] [place] [address] Sodium [Moles/Vol] 137 mmol/L Normal 135-145 [facility] Comment on above: Performed By: #### 2 [id number] #### [facility] [address] [place] [address] Urea nitrogen [Mass/Vol] 19 mg/dL Normal 5-21 [facility] Comment on above: Performed By: #### 2 [id number] #### [facility] [address] [place] [address] Urea nitrogen/Creatinine [Mass ratio] 27 No Units High 10-20 [facility] Comment on above: Performed By: #### 2 [id number] #### [facility] [address] [place] [address] Lipid Panelon 09-18-2023 Cholesterol [Mass/Vol] 105 mg/dL Low 120-200 [facility] Comment on above: Performed By: #### 2 [id number] #### [facility] [address] [place] [address] Cholesterol in HDL [Mass/Vol] 32 mg/dL Invalid Interpretation Code [facility] Comment on above: Result Comment: '>= 60 LOW RISK' '<= 40 HIGH RISK' Performed By: #### 2 [id number] #### [facility] [address] [place] [address] Cholesterol in LDL [Mass/Vol] 60 mg/dL Normal <=129 [facility] Comment on above: Performed By: #### 2 [id number] #### [facility] [address] [place] [address] Cholesterol in VLDL [Mass/Vol] 28 mg/dL Normal 7-40 [facility] Comment on above: Performed By: #### 2 [id number] #### [facility] [address] [place] [address] Triglyceride [Mass/Vol] 142 mg/dL Normal <=149 [facility] Comment on above: Performed By: #### 2 [id number] #### [facility] [address] [place] [address] TSH With T4fr Reflexon 09-17 TSH Qn 1.34 m[IU]/L Normal 0.34-5.60 [facility] Comment on above: Performed By: #### 1 [id number] #### [facility] [address] [place] [address] eGFRon 09-18-2023 eGFR 84 mL/min/1.73 m2 Normal >=59 [facility] Comment on above: Order Comment: Order added by Discern Expert. Performed By: #### 1 [id number] #### [facility] [address] [place] [address] Ambulatory Visit Summaryon 0 09-14-2023 Ambulatory Visit [...] Appointments Monday 9:20 AM EDT With: Where: [facility] Invalid Interpretation Code [address] [place] [address]- \.br\ Monday 11:00 AM EDT \.br\ With:\.br\ Where: [facility] Medicine Office/Clini c Noteon 09-14-2023 Family Medicine [...] of clutter to prevent tripping and/or falling. [place] Advance Directives reviewed. Documents remain at home [...] PCP visit. Labs to be completed with [facility] on a nurse visit. 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 [...] with impo (more content not included)... [facility] Comment on above: Result Comment: Elec tronically Signed By: LEA WALLACE CNP\.br\Date and Time Signed: 09/14/23 15:23 EDT\.br\Electronically Co-Signed By: Brittney Weber LPN\.br\Date and Time Co-Signed: 09/14/23 14:34 EDT CHEMISTRYOrdered By: SYSTEM SYSTEM on 09-09-2022 Albumin [Mass/Vol] 4.4 g/dL Normal 3.3 - 5.0 gm/dL [facility] Albumin/Globulin [Mass ratio] 1.6 {ratio} Normal [...] mg/dL Normal 55 - 199 mg/dL [facility] Potassium [Moles/Vol] 4.1 mmol/L Normal 3.5 [...] 10 - 20 [facility]isol Covid-19 PCR (CVDTBH)on 070 SARS-CoV-2 (COVID-19) RNA JESSIE+probe Ql (Unsp spec) Detected Critically abnormal NOT DETECTED [facility] Comment on above: Result Comment: This test is not yet approved or cleared by the [place] FDA. When there are no FDA-approved or cleared tests available, and other criteria are met, FDA can make tests available under an emergency access mechanism called an Emergency Use Authorization (EUA). The EUA for this test is supported by the [place] of Health and Human Service's declaration that [...] longer be used). Performed By: #### C [facility] #### [facility] [address] [place] [address] Dr. Josie Bauman ECHOCARDIO M/2D COMPLETEon 0 07-19-2021 ECHOCARDIO M/2D COMPLETE Patient: UNA GOMEZ Exam Date: 07/19/2021 : 1940 Gender:F Ordering : DR AMAURY MONTERROSO . Admission #: [id number] Family : Order #: [id number] CLICK HERE TO VIEW EXAM ECHOCARDIOGRAM REPORT [...] Area(A2C): 14.80 cm2 Left Atrium Systolic Volume(A2C): 37199 mm3 Mitral Valve MV E to A [...] Naylor M.D. on 07/19/2021 at 18:28 Normal [facility] KNEE LEFT 3 VWSon 07-16-2020 KNEE LEFT 3 S [facility] Department of Radiology [address] [place] [phone] Patient Name: UNA GOMEZ : 1940 Sex: F Age: Race: White Pt. Location: Patient Status: D Ordered Date: 07/16/2020 2:00:00 PM Completed Date: 07/16/2020 01:59 PM Requesting Provider: NICOLLE JAY Attending Provider: Report Copy To: Signs & Symptoms: M25.561 Pain in right knee I10 History: [place] Comments: , , , Ordering Provider - NICOLLE JAY MD , Exam: KNEE LEFT 3 [facility] KNEE LEFT 3 S 07/16/2020 1:59 PM [...] findings. Electronically signed: Trell Enciso. Transcribed by: [email or web address], User Resident: TRELL ENCISO Electronically Signed by: TRELL ENCISO @ 07/17/2020 10:46 AM I personally read this/these film(s) with this resident Normal [facility] Comment on above: Order Comment: , , = ========= , Ordering Provider - NICOLLE JAY MD , KNEE RIGHT 3 [facility] 1 KNEE RIGHT 3 [facility] Department of Radiology [address] [place] [phone] Patient Name: UNA GOMEZ : 1940 Sex: F Age: Race: White Pt. Location: Patient Status: D Ordered Date: 07/16/2020 2:00:00 PM Completed Date: 07/16/2020 01:59 PM Requesting Provider: NICOLLE JAY Attending Provider: Report Copy To: Signs & Symptoms: M25.561 Pain in right knee I10 History: [place] Comments: , , , Ordering Provider - NICOLLE JAY MD , Exam: KNEE RIGHT 3 [facility] KNEE RIGHT 3 VWS 07/16/2020 1:59 PM [...] remodeling. Electronically signed: Trell Enciso. Transcribed by: [email or web address], User Resident: TRELL ENCISO Electronically Signed by: TRELL ENCISO @ 07/17/2020 08:46 AM I personally read this/these film(s) with this resident Normal [facility] Comment on above: Order Comment: , , = ========= , Ordering Provider - NICOLLE JAY MD , HIPS BILATERAL 2 VWS WITH PE LVISon 07-06-2020 HIPS BILATERAL 2 VWS WITH PELVIS [facility] Department of Radiology [address] [place] [phone] Patient Name: UNA GOMEZ : 1940 Sex: F Age: Race: White Pt. Location: 84 Patient Status: O Ordered Date: 07/06/2020 1:25:00 PM Completed Date: 07/06/2020 01:28 PM Requesting Provider: BERTHA MULTANI Attending Provider: BERTHA MULTANI Report Copy To: AMAURY MONTERROSO Signs & Symptoms: M25.551 Pain in right hip I10 History: [place] Comments: evaluate Exam: HIPS BILATERAL 2 VWS [...] changes. Electronically signed: Lincoln Brooke. Transcribed by: [email or web address], User Resident: Electronically Signed by: LINCOLN BROOKE @ 07/06/2020 02:00 PM Normal [facility] Comment on above: Order Comment: evalu ate Operative Reporton Operative Report MR#: [id number] I [facility] Pt. Name: Una Gomez Room #: [id number] Discharge 04/15/2020 Date: Birthdate: 1940 OPERATIVE REPORT DATE OF SURGERY: 04/14/2020 SURGEON: Bertha Multani MD PHARMACY AFFAIRS ASSISTANT: Bruno Schafer MD. ANESTHESIA: General with interscalene [...] osteoarthritis of the left shoulder joint with [id number] as well as severe massive retracted chronic [...] cou (more content not included)... Normal [facility] HEMOGLOBINon 04-14-2020 Hemoglobin (Bld) [Mass/Vol] 12.7 g/dL Normal 12.0-15.0 [facility] Comment on above: Order Comment: No: D o not add to previous draw Performed By: #### 9 [id number] #### [facility] [address] [place] [address], [facility] POC GLUCOSE LABon 04-14-2020 Glucose [Mass/Vol] 97 mg/dL Normal 70-100 [facility] Comment on above: Performed By: #### 8 [id number] #### [facility] [address] [place] [address], [facility] PORTABLE SHOULDER LEFT 2 VWS on 04-14-2020 PORTABLE SHOULDER LEFT 2 [facility] Department of Radiology [address] [place] [phone] Patient Name: UNA GOMEZ : 1940 Sex: F Age: Race: White Pt. Location: [place] [address] Patient Status: I Ordered Date: 04/14/2020 5:10:00 PM Completed Date: 04/14/2020 05:37 PM Requesting Provider: BRUNO SCHAFER Attending Provider: BERTHA MULTANI Report Copy To: Signs & Symptoms: Pain History: Comments: Hardware Evaluation, in PACU Exam: PORTABLE SHOULDER LEFT 2 [facility] PORTABLE SHOULDER LEFT 2 [facility] 04/14/2020 5:37 PM CLINICAL INDICATIONS: Pain TECHNOLOGIST [...] failure Electronically signed: Efrain Cuello. Transcribed by: [email or web address], User Resident: EFRAIN CUELLO Electronically Signed by: EFRAIN CUELLO @ 04/14/2020 06:12 PM I personally read this/these film(s) with this resident Normal [facility] Comment on above: Order Comment: Hardw are Evaluation, in PACU Vital Signs Date Time Vital Sign Value Performing Clinician Facility 09-05-2024 20:05-0400 Body height 137.16 cm Yaniv Singh MD Work Phone: [facility] 09-05-2024 20:05-0400 Body temperature 98.1 [degF] Yaniv Singh MD Work Phone: [facility] 09-05-2024 20:05-0400 Body weight 57 kg Yaniv Singh MD Work Phone: [facility] 09-05-2024 20:05-0400 Diastolic blood pressure 85 mm[Hg] Yaniv Singh MD Work Phone: [facility] 09-05-2024 20:05-0400 Heart rate 75 /min Yaniv Singh MD Work Phone: [facility] 09-05-2024 20:05-0400 Respiratory rate 18 /min Yaniv Singh MD Work Phone: [facility] 09-05-2024 20:05-0400 SaO2% (BldA) [Mass fraction] 94 % Yaniv Singh MD Work Phone: [facility] 09-05-2024 20:05-0400 Systolic blood pressure 176 mm[Hg] Yaniv Singh MD Work Phone: [facility] 09-05-2024 08:48-0400 Body height 147.32 cm Yaniv Singh MD Work Phone: [facility] 09-05-2024 08:48-0400 Body mass index (BMI) [Ratio] 26.5 kg/m2 Yaniv Singh MD Work Phone: [facility] 09-05-2024 08:48-0400 Body weight 57.6 kg Yaniv Singh MD Work Phone: [facility] 09-05-2024 08:48-0400 Diastolic blood pressure 70 mm[Hg] Yaniv Singh MD Work Phone: [facility] 09-05-2024 08:48-0400 Heart rate 74 /min Yaniv Singh MD Work Phone: [facility] 09-05-2024 08:48-0400 Respiratory rate 18 /min Yaniv Singh MD Work Phone: [facility] 09-05-2024 08:48-0400 SaO2% (BldA) [Mass fraction] 97 % Yaniv Singh MD Work Phone: [facility] 09-05-2024 08:48-0400 Systolic blood pressure 122 mm[Hg] Yaniv Singh MD Work Phone: [facility] 08-22-2024 11:18-0400 Body height 149.86 cm Yaniv Singh MD Work Phone: [facility] 08-22-2024 11:18-0400 Body mass index (BMI) [Ratio] 25.8 kg/m2 Yaniv Singh MD Work Phone: [facility] 08-22-2024 11:18-0400 Body weight 58 kg Yaniv Singh MD Work Phone: [facility] 06-11-2024 14:19-0400 Body height 147.3 cm Uli Dolce DPM FACFAS Work Phone: [facility] 06-11-2024 14:19-0400 Body mass index (BMI) [Ratio] 26.33 kg/m2 Uli Dolce DPM FACFAS Work Phone: [facility] 06-11-2024 14:19-0400 Body weight 57.15 kg Uli Dolce DPM FACFAS Work Phone: [facility] 06-11-2024 14:19-0400 Diastolic blood pressure 72 mm[Hg] Uli Dolce DPM FACFAS Work Phone: [facility] 06-11-2024 14:19-0400 Heart rate 67 /min Uli Dolce DPM FACFAS Work Phone: [facility] 06-11-2024 14:19-0400 Systolic blood pressure 124 mm[Hg] Uli Dolce DPM FACFAS Work Phone: [facility] 05-23-2024 14:14-0400 Body height 147.3 cm Uli Dolce DPM FACFAS Work Phone: [facility] 05-23-2024 14:14-0400 Body mass index (BMI) [Ratio] 26.33 kg/m2 Uli Dolce DPM FACFAS Work Phone: [facility] 05-23-2024 14:14-0400 Body weight 57.15 kg Uli Dolce DPM FACFAS Work Phone: [facility] 05-23-2024 14:14-0400 Diastolic blood pressure 74 mm[Hg] Uli Dolce DPM FACFAS Work Phone: [facility] 05-23-2024 14:14-0400 Systolic blood pressure 122 mm[Hg] Uli Dolce DPM FACFAS Work Phone: [facility] 05-08-2024 13:25-0500 Body height 149.86 cm Yaniv Singh MD Work Phone: [facility] 05-08-2024 13:25-0500 Body mass index (BMI) [Ratio] 25.8 kg/m2 Yaniv Singh MD Work Phone: [facility] 05-08-2024 13:25-0500 Body weight 58.05 kg Yaniv Singh MD Work Phone: [facility] 04-10-2024 11:34-0500 Body height 149.86 cm Yaniv Singh MD Work Phone: [facility] 04-10-2024 11:34-0500 Body mass index (BMI) [Ratio] 26 kg/m2 Yaniv Singh MD Work Phone: [facility] 04-10-2024 11:34-0500 Body weight 58.51 kg Yaniv Singh MD Work Phone: [facility] 04-10-2024 11:34-0500 Diastolic blood pressure 70 mm[Hg] Yaniv Singh MD Work Phone: [facility] 04-10-2024 11:34-0500 Heart rate 76 /min Yaniv Singh MD Work Phone: [facility] 04-10-2024 11:34-0500 Systolic blood pressure 139 mm[Hg] Yaniv Singh MD Work Phone: [facility] 02-07-2023 15:15-0500 Body height 149.86 cm Imad Asaad Other [employer] Other 02-07-2023 15:15-0500 Body mass index (BMI) [Ratio] 27.87 kg/m2 Imad Asaad Other [employer] Other 02-07-2023 15:15-0500 Body weight 62.6 kg Imad Asaad Other [employer] Other 02-07-2023 15:15-0500 Diastolic blood pressure 63 mm[Hg] Imad Asaad Other [employer] Other 02-07-2023 15:15-0500 Systolic blood pressure 129 mm[Hg] Imad Asaad Other [employer] Other 12-13-2022 14:15-0400 Body height 149.86 cm Imad Asaad Other [employer] Other 12-13-2022 14:15-0400 Body mass index (BMI) [Ratio] 29.28 kg/m2 Imad Asaad Other [employer] Other 12-13-2022 14:15-0400 Body weight 65.77 kg Imad Asaad Other [employer] Other 12-13-2022 14:15-0400 Diastolic blood pressure 63 mm[Hg] Imad Asaad Other [employer] Other 12-13-2022 14:15-0400 Systolic blood pressure 140 mm[Hg] Imad Asaad Other [employer] Other Encounters Encounter Date Encounter Type Care Provider Facility Start: 09-09-2025 ambulatory Marlee L Yun Facility: [facility] Start: 02-17-2025 ambulatory Marlee L Yun Facility: [facility] Start: 10-21-2024 End: 10[facility] Start: 10-02-2024 End: 10-02-2024 ambulatory LEA A RODRIGO Facility:[facility] [place] [facility] Start: 10-01-2024 End: 10-01-2024 ambulatory LEA A RODRIGO Facility:[facility] [place] [facility] Start: 09-26-2024 End: 09-26-2024 ambulatory Marlee L Yun Facility:[facility] [place] [facility] Start: 09-25-2024 ambulatory Marlee L Yun Facility: [facility] [place] Start: 09-09-2024 End: 09-09-2024 ambulatory COOK FRY Marlee L Yun Facility:[facility] [place] [facility] Start: 09-05-2024 End: 09-05-2024 Emergency department patient visit Yaniv Singh MD Work Phone: -Emergency Room Work Phone: Start: 09-05-2024 End: 09-05-2024 ambulatory Yaniv Singh MD Work Phone: [facility] Work Phone: Start: 09-05-2024 End: 09-05-2024 Patient encounter procedure Curtis Morales MD -[facility] Cardiology Work Phone: Start: 08-29-2024 End: 08-29-2024 ambulatory Marlee [place] Facility:[facility] Start: 08-22-2024 End: 08-22-2024 Patient encounter procedure Fred Mcneil MD -Lab [facility] Start: 08-22-2024 End: 08-22-2024 ambulatory Fred Hernandez II Facility:[facility] Start: 08-22-2024 End: 08-22-2024 Patient encounter procedure Fred Mcneil MD -[facility] Orthopedics Work Phone: Start: 08-20-2024 End: 08-20-2024 Lab Drop off Yaniv Singh [facility] Start: 08-20-2024 End: 08-20-2024 ambulatory Yaniv Singh Facility:[facility] Start: 08-01-2024 End: 08-01-2024 ambulatory Yaniv Singh Facility:[facility] Start: 07-24-[address] [facility] Start: 06-26-2024 End: 06-26-2024 Bamboo flowsheet [...] right toe(s) Start: 05-20-2024 End: 05-20-2024 ambulatory COOK FRY Marlee [place] Facility:[facility] [place] [facility] Start: 05-13-2024 End: 05-13-2024 ambulatory Yaniv Singh Facility:[facility] [place] [facility] Start: 05-08-2024 End: 05-08-2024 ambulatory Yaniv Singh MD Work Phone: [facility] Work Phone: Start: 05-08-2024 End: 05-08-2024 Patient encounter procedure Yaniv Singh MD Work Phone: [facility] Work Phone: Start: 04-10-2024 End: 04-10-2024 ambulatory Yaniv Singh MD Work Phone: [facility] Work Phone: Start: 04-10-2024 End: 04-10-2024 Patient encounter procedure Yaniv Singh MD Work Phone: [facility] Work Phone: Start: 04-08-2024 End: 04-08-2024 ambulatory Yaniv Singh Facility:[facility] [place] [facility] Start: 03-05-2024 End: 03-05-2024 Patient encounter procedure Yaniv Singh MD Work Phone: [facility] Work Phone: Start: 03-05-2024 End: 03-05-2024 ambulatory Imad Asaad Facility:[facility] Start: 02-21-2024 End: 02-21-2024 Bamboo flowsheet Ottoniel Louise DO Work Phone: [facility] Start: 02-21-2024 End: 02-21-2024 Bamboo flowsheet Ottoniel Louise DO Work Phone: [facility] Start: 02-21-2024 End: 02-21-2024 ambulatory OTTONIEL LOUISE Not Available Start: 02-13-2024 End: 02-13-2024 ambulatory MD Yaniv Singh Facility:[facility] [place] [facility] Start: 01-22-2024 End: 01-22-2024 Telephone encounter Klaus Mckeon DO Work Phone: [facility] Start: 01-16-2024 End: 01-16-2024 ambulatory Yaniv Singh Facility:[facility] [place] [facility] Start: 01-08-2024 End: 01-08-2024 ambulatory Yaniv Singh Facility:[facility] [place] [facility] Start: 01-03-2024 End: 01-03-2024 ambulatory COOK FRY Marlee [place] Facility:[facility] [place] [facility] Start: 12-11-2023 End: 12-11-2023 Lab Drop off MELISSA RODRIGEZ [facility] Start: 12-11-2023 End: 12-11-2023 ambulatory MD Yaniv Singh Facility:[facility] [place] [facility] Start: 11-30-2023 End: 11-30-2023 ambulatory MELISSA RODRIGEZ [facility] Start: 11-20-2023 End: 11-20-2023 Bamboo flowsheet Ottoniel Louise DO Work Phone: [facility] Start: 11-20-2023 End: 11-20-2023 Bamboo flowsheet Ottoniel Boone Zaagneser DO Work Phone: [facility] Start: 11-20-2023 End: 11-20-2023 ambulatory OTTONIEL DYSONER Not Available Start: 09-19-2023 End: 09-19-2023 ambulatory Yaniv Singh Facility:[facility] Start: 09-18-2023 End: 09-18-2023 Lab Drop off Yaniv Singh [facility] Start: 09-18-2023 End: 09-18-2023 ambulatory MD Yaniv Singh Facility:[facility] Start: 09-14-2023 End: 09-14-2023 ambulatory COOK FRY Marlee L Yun Facility:[facility]asc[facility] Start: 08-02-2023 End: 08-02-2023 ambulatory OTTONIEL DYSONER Not Available Start: 07-19-2023 End: 07-19-2023 ambulatory OTTONIEL Mely BARRIGAHLER Not Available Start: 02-07-2023 End: 02-07-2023 ambulatory Imad Asaad Other [employer] [facility] Other Start: 02-07-2023 Office outpatient ne w 45 minutes Imad Asaad [facility] Start: 12-13-2022 End: 12-13-2022 ambulatory Imad Asaad Other [facility] Other Start: 12-13-2022 Office outpatient ne w 45 minutes Imad Asaad [facility] Start: 09-09-2022 End: 09-09-2022 Lab Drop off Marlee L Yun [facility] Start: 06-08-2022 End: 06-09-2022 ambulatory CASEY [...] management of inpatient AMAURY MONTERROSO Facility:[facility] Procedures Date Procedure Procedure Detail Performing Clinician Start: 09-05-2024 Plain X-ray of right shoulder Yaniv Singh MD Work Phone: Start: 08-22-2024 Nasal Screen MRSA/MSSA Yaniv Singh MD Work Phone: Start: 06-26-2024 Computerized ophthal karolyn imaging retina Ottoniel Louise DO Work Phone: Start: 06-26-2024 End: 06-26-2024 Oph medical xm&eval intermediate estab pt Advanced atrophic [...] DO Work Phone: Start: 02-21-2024 End: 02-21-2024 Oph medical xm&eval comprhnsv estab pt 1/> 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 Ottoniel Louise DO Work Phone: Comment on above: Advanced atrophic no nexudative age-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 involvement (Primary Dx); Dry eyes; Blepharitis of upper and lower eyelids of both eyes, unspecified type Start: 11-20-2023 Computerized ophthal karolyn imaging retina Ottoniel Louise DO Work Phone: Start: 11-20-2023 End: 11-20-2023 [facility] medical xm&eval intermediate estab pt Advanced atrophic [...] Date Care Activity Detail Author Start: 09-05-2024 [facility] Start: 06-26-2024 End: 06-26-2024 Patient encounter procedure [facility] Comment on above: Arrived Start: 06-11-2024 End: 06-11-2024 Patient encounter procedure [facility] Comment on above: Arrived Start: 05-08-2024 Plain X-ray of right hip XR hi p RT min 2V(w/wo pelvis)* [facility] Start: 05-08-2024 XR Hip - right 2 Views [facility] Start: 03-05-2024 [facility] Start: 02-21-2024 End: 02-21-2024 Patient encounter procedure [facility] Comment on above: Arrived Start: 11-20-2023 End: 11-20-2023 Patient encounter procedure 11/20/2023 1:30 PM EDT Office Visit [facility] [address] [place] [address] Ottoniel Louise DO [address] [place] [address] Arrived [facility] Comment on above: Arrived Start: 11-05-2023 Influenza vaccination Influenza Vacc ine (#1) [facility] Patient Education Radiculopathy of the neck and back (including sciatica) [facility] Work Phone: Patient referral [facility] Work Phone: [facility] Immunizations Immunization Date Immunization Notes Care Provider Fa cility 01-23-2024 influenza virus vacc ine, unspecified formulation Ottoniel Louise DO Work Phone: [facility] 12-14-2022 influenza virus vacc ine, unspecified formulation Yaniv Singh [facility] 02-10-2022 SARS-CoV-2 (COVID-19 ) mRNAMUL.ORD![id number] Marlee Yun [facility] 12-27-2021 influenza virus vacc ine, unspecified formulation Marlee Yun [facility] 03-17-2021 SARS-CoV-2 (COVID-19 ) mRNA-1273 vaccine Marlee Yun [facility] Comment on above: Result Comment: 2022: [id number] 02-10-2021 influenza virus vacc ine, unspecified formulation Marlee Yun [facility] 09-11-2020 pneumococcal polysaccharide vaccine, 23 valent Marlee Yun [facility] 05-05-2020 SARS-CoV-2 (COVID-19 ) mRNA-1273 vaccine Marlee Yun [facility] 04-07-2020 SARS-CoV-2 (COVID-19 ) mRNA-1273 vaccine Marlee Yun [facility] 09-12-2019 pneumococcal conjuga te vaccine, 13 valent Marlee Yun [facility] 02-01-2019 influenza virus vacc ine, unspecified formulation Marlee Yun [facility] 01-30-2018 influenza virus vacc ine, unspecified formulation Marlee Yun [facility] 03-04-2016 influenza virus vacc ine, unspecified formulation Marlee Yun [facility] 03-18-2015 influenza virus vacc ine, unspecified formulation Marlee Yun [facility] 01-17-2005 influenza, whole Marlee Yun [facility] Payers Date Payer Category Payer Self-pay 2021 Medicaid [id number] 2021 Medicare [id number] 1959 Medicare [id number] 1940 Unknown [id number] 2.16.8 40.1.426355.3.579.2.647 1940 Unknown [id number] 2.16.84 0.1.026646.3.579.2.593 1938 Unknown [id number] 2.16.84 0.1.148598.3.579.2.593 1938 Unknown [id number] 2.16.84 0.1.058647.3.579.2.593 1938 Unknown [id number] 2.16.84 0.1.280894.3.579.2.593 1938 Unknown [id number] 2.16.84 0.1.826929.3.579.2.593 1938 Unknown [id number] 2.16.84 0.1.092522.3.579.2.593 1938 Unknown [id number] 2.16.84 0.1.277898.3.579.2.593 1938 Unknown [id number] 2.16.84 0.1.275949.3.579.2.593 1938 Unknown [id number] 2.16.8 40.1.272692.3.579.2.727 1938 Unknown [id number] 2.16.8 40.1.888195.3.579.2.727 1938 Unknown [id number] 2.16.8 40.1.038968.3.579.2.727 1938 Unknown [id number] 2.16.84 0.1.626205.3.579.2.1259 1938 Unknown [id number] 2.16.84 0.1.170579.3.579.2.1259 1938 Unknown [id number] 2.16.84 0.1.381238.3.579.2.1259 1938 Unknown [id number] 2.16.84 0.1.402455.3.579.2.1259 1938 Unknown [id number] 2.16.84 0.1.253613.3.579.2.1259 1938 Unknown [id number] 2.16.84 0.1.912562.3.579.2.1259 1938 Unknown [id number] 2.16.84 0.1.390582.3.579.2.1259 1938 Unknown [id number] 2.16.8 40.1.776888.3.579.2.72 1938 Unknown [id number] 2.16.8 40.1.783458.3.579.2.72 1938 Unknown [id number] 2.16.8 40.1.487397.3.579.2. 1938 Unknown [id number] 2.16.8 40.1.625289.3.579.2.72 1938 Unknown [id number] 2.16.8 40.1.877563.3.579.2.72 1938 Unknown [id number] 2.16.8 40.1.269849.3.579.2.72 1938 Unknown [id number] 2.16.8 40.1.871886.3.579.2. 1938 Unknown [id number] 2.16.8 40.1.175294.3.579.2.72 1938 Unknown [id number] 2.16.8 40.1.583642.3.579.2.72 1938 Unknown [id number] 2.16.8 40.1.268157.3.579.2.72 1938 Unknown [id number] 2.16.8 40.1.936115.3.579.2.72 1938 Unknown [id number] 2.16.8 40.1.670440.3.579.2.72 1938 Unknown [id number] 2.16.8 40.1.354419.3.579.2.727 1938 Unknown [id number] 2.16.8 40.1.741622.3.579.2.727 1938 Unknown [id number] 2.16.8 40.1.672944.3.579.2.727 1938 Unknown [id number] 2.16.8 40.1.601592.3.579.2.727 1938 Unknown [id number] 2.16.8 40.1.013326.3.579.2.727 1938 Unknown [id number] 2.16.8 40.1.021077.3.579.2.727 1938 Unknown [id number] 2.16.8 40.1.132407.3.579.2.727 1938 Unknown [id number] 2.16.8 40.1.908363.3.579.2.727 1938 Unknown [id number] 2.16.8 40.1.366759.3.579.2.727 1938 Unknown [id number] 2.16.8 40.1.979619.3.579.2.727 1938 Unknown [id number] 2.16.8 40.1.843129.3.579.2.727 Private Health Insurance [id number] Unknown [id number] 2.16.8 40.1.113113.3.579.2.531 Unknown [id number] 2.16.8 40.1.200619.3.579.2.531 Unknown [id number] 2.16.8 40.1.357937.3.579.2.531 Unknown [id number] 2.16.8 40.1.346285.3.579.2.531 Unknown [id number] 2.16.8 40.1.769725.3.579.2.531 Social History Date Type Detail Facility Start: 09-08-2022 End: 09-05-2024 Tobacco smoking status Never smoked tobacco (finding) [facility] Tobacco smoking status Never [facility] Start: 08-02-2023 End: 06-11-2024 Sex Assigned At Female [facility] Start: 09-19-2022 Tobacco use and exposure Smokeless tobacco non-user [facility] Start: 08-02-2023 End: 06-26-2024 Alcoholic beverage intake Lifetime non-drinker (finding) [facility] Start: 08-02-2023 End: 06-11-2024 History of Social function [facility] Start: 12-07-2022 Alcohol Comment caffeine: 1-2 cups per day [facility] Start: 1940 Sex assigned at Female [facility] Start: 11-16-2022 Gender identity Identifies as female gender (finding) [facility] Tobacco smoking stat [facility] Unknown if ever smoked [facility] Work Phone: Start: 05-28-2018 End: 04-10-2024 Sex Female (finding) [facility] Sexual Orientation [facility] NEGATED: Highlighted rowStart: NINF History of tobacco use Passive smoker [facility] Clinical Notes 04-22-2020 to 10-02-2024 Note Date & Type Note Facility 10-02-2024 Note Patient Education Infectious Disease Rash, Adult A rash is a breakout of spots or blotches on the skin. It can change the way your skin looks and feels. Many things can cause a rash. The goal of treatment is to stop the itching and keep the rash from spreading. Follow these instructions at home: Medicine Take or apply dpqu-iok-wqwbjnn and prescription medicines only as told by your doctor. These may include medicines to treat: ??? Red or swollen skin. ??? Itching. ??? An allergy. ??? Pain. ??? An infection. Skin care ??? Put a cool, wet cloth on the rash. ??? Do not scratch or rub your skin. ??? Try not to cover the rash. Keep it exposed to air as often as you can. Managing itching and discomfort ??? Avoid hot showers or baths. These can make itching worse. A cold shower may help. ??? Try taking a bath with: ? Epsom salts. You can get these at your pharmacy or grocery store. Follow the instructions on the package. ? Baking soda. Pour a small amount into the bath as told by your doctor. ? Colloidal oatmeal. You can get this at your pharmacy or grocery store. Follow the instructions on the package. ??? Try putting baking soda paste on your skin. Stir water into baking soda until it gets like a paste. ??? Try putting on a lotion to help with itching (calamine lotion). ??? Keep cool. Stay out of the sun. Sweating and being hot can make itching worse. General instructions ??? Rest as needed. ??? Drink enough fluid to keep your pee (urine) pale yellow. ??? Wear loose-fitting clothes. ??? Avoid scented soaps, detergents, and perfumes. Use gentle soaps, detergents, perfumes, and cosmetics. ??? Avoid the things that cause your rash. Keep a journal to help keep track of what causes your rash. Write down: ? What you eat. ? What cosmetics you use. ? What you drink. ? What you wear. This includes jewelry. Contact a doctor if: ??? You sweat a lot at night. ??? You pee (urinate) more or less than normal. ??? Your pee is a darker color than normal. ??? Your eyes are sensitive to light. ??? Your skin or the white parts of your eyes turn yellow. ??? Your skin tingles or is numb. ??? You get painful blisters in your nose or mouth. ??? Your rash does not go away after a few days, or it gets worse. ??? You are more tired than normal. ??? You are more thirsty than normal. ??? You have new or worse symptoms. These may include: ? Pain in your belly. ? A fever. ? Watery poop (diarrhea). ? Vomiting. ? Weakness. ? Weight loss. Get help right away if: ??? You start to feel mixed up (confused). ??? You have a very bad headache or a stiff neck. ??? You have very bad joint pain or stiffness. ??? You get very sleepy or not responsive. ??? You have a seizure. This information is not intended to replace advice given to you by your health care provider. Make sure you discuss any questions you have with your health care provider. Document Revised: 12/09/2022 Document Reviewed: 12/09/2022 [employer] Patient Education ? 2023 [employer]. [facility] 09-26-2024 Note Nurse Consultation N ote Reason [...] 50,000 intl units (1.25 mg) oral capsule, 20841 International_Unit= 1 cap(s), Oral, 2x/Wk, 3 refills Allergies Augmentin (Unknown) Diflucan (Unknown) sulfa drugs (Unknown) traMADol (Unknown) Immunizations Vaccine Date Status Comments influenza virus vaccine, inactivated 01/23/2024 Recorded influenza virus vaccine, inactivated 12/14/2022 Recorded SARS-CoV-2 (COVID-19) mRNAMUL.ORD![id number] 02/10/2022 Recorded influenza virus vaccine, inactivated 12/27/2021 [...] inactivated 03/18/2015 Recorded influenza, whole 01/17/2005 Recorded [facility] 09-09-2024 Note Patient Education Emergency Medicine Heart Attack A heart attack occurs when blood and oxygen supply to the heart is cut off. A heart attack can cause damage to the heart that cannot be fixed. A heart attack is also called a myocardial infarction, or IL. If you think you are having a [...] these instructions at home: Medicines ??? Take drus-avn-pzptzyo and prescription medicines only as told by [...] ??? You fe (more content not included)... [facility] 08-22-2024 Evaluation note Diagnosis Onset Date Resolution Personal history of poliomyelitis acute August 22, 2024 11:02am Primary osteoarthritis of right hip acute August 22, 2024 11:02am [facility] Work Phone: 1(370) 747-634306-19-2025 Evaluation note* Diagnosis Onset Date Resolution Status Admit Date Personal history of poliomyelitis ac lummi August 22, 2024 11:02am Primary osteoarthritis of ri ght hip acute August 22, 2024 11:02am Hypertension acute September 05 8:33am Irregular heart beat acute September 05, 2024 8:33am Left bundle branch block (LBBB) acut e September 05, 2024 8:33am Primary osteoarthritis of ri ght hip acute September 05, 2024 8 :33am [facility] Work Phone: 1(781) 459-778105-21-2025 Note Attestation signed by Crissy Schuler MD [...] outside clinic near her [facility] who she reports recommended right total hip [...] a 84 y.o. female who presents to [facility] today for hip pain in [...] far. 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 She is independent with driving and uses a (more content not included)...[facility]04-23-2025 Note Right Eye Quality was good. Scan locations included subfoveal. Progression has been stable. Findings include abnormal foveal contour, pigment epithelial detachment. Left Eye Quality was good. Scan locations included subfoveal. Progression has been stable. Findings include abnormal foveal contour, pigment epithelial detachment.[facility] [id number] History of Present illness Narrative* Ottoniel Louise [...] lid scrubs were recommended. documented in this encounterHawthorn Children's Psychiatric [id number] History of Present illness Narrative* Uli Schulte [...] the area. JEANNINE Dolan documented in this encounterHawthorn Children's Psychiatric [id number] History of Present illness Narrative* JEANNINE Dolan [...] secondary to the pain. They have attempted nnag-ota-uojjunl anti- inflammatory medications as well as tcry-hxa-waszsnb wart treatment to no avail. Patient haspolio [...] < 3 seconds Digits 1-5 bilateral NEURO: Elizabeth Ru 5.07 monofilament was intact B/L. Vibratory [...] occlusive dressing. JEANNINE Dolan documented in this encounterHawthorn Children's Psychiatric HospitalYvcdcynsde90-38-3058 NotePatient Education Nutrition BMI for Adults Body [...] for Disease Control and Prevention: cdc.gov ??? [place] Heart Association: heart.org ??? National Heart, Lung, and Blood Firth: nhlbi.nih.gov This information is not intended to replace advice given to you by your health care provider. Make sure you discuss any questions you have with your health care provider. Document Revised: 11/10/2022 Document Reviewed: 11/03/2022 Else[employer] Patient Education ? 2023 [employer] 04-10-2024 Evaluation note* Author Marija [facility] Authored April 10, 2024 1 :12pm 84-year-old [...] and exercise. No need for medical therapy [facility] Work Phone: 1(799) 621-602302-03-2025 NotePatient Education Nutrition BMI for Adults Body [...] for Disease Control and Prevention: cdc.gov ??? [place] Heart Association: heart.org ??? National Heart, Lung, and Blood Firth: nhlbi.nih.gov This information is not intended to replace advice given to you by your health care provider. Make sure you discuss any questions you have with your health care provider. Document Revised: 11/10/2022 Document Reviewed: 11/03/2022 [employer] Patient Education ? 2023 [employer] 02-21-2024 NoteRight Eye Quality was good. Scan locations included subfoveal. Progression has been stable. Findings include pigment epithelial detachment. Left Eye Quality was good. Scan locations included subfoveal. Progression has been stable. Findings include pigment epithelial detachment.[facility] [id number] History of Present illness Narrative* Ottoniel Louise, DO - 02/21/2024 1:45 PM EST Images [...] lid scrubs were recommended. documented in this encounterHawthorn Children's Psychiatric [id number] Telephone encounter Note* Telephone Encounter - Julia Webber - 01/22/2024 2:55 PM EST Spoke with pt informing them that Dr. Bravo did not accept leora as a new patient. Pt voiced understanding [facility] [id number] Miscellaneous Notes* Telephone Encounter - Julia Webber - 01/22/2024 2:55 PM EST Spoke with pt informing them that Dr. Bravo did not accept leora as a new patient. Pt voiced understanding documented in this encounterHawthorn Children's Psychiatric HospitalYeokltwgfg26-48-7989 NotePatient Education Nutrition BMI for Adults Body [...] for Disease Control and Prevention: cdc.gov ??? [place] Heart Association: heart.org ??? National Heart, Lung, and Blood Firth: nhlbi.nih.gov This information is not intended to replace advice given to you by your health care provider. Make sure you discuss any questions you have with your health care provider. Document Revised: 11/10/2022 Document Reviewed: 11/03/2022 [employer] Patient Education ? 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 Had routine labs w/ lipid panel in September 2023. She denies chest pain, SOB, palpitations, and LE edema. Doing very well. Review of Systems All other systems reviewed and are negative.[facility] 11-30-2023 NoteCardiovascular Medicine [facility] SUBJECTIVE No chief complaint on file. [...] Echocardiogram: 10/05/2022 Mild left (more content not included)...[facility] 11-20-2023 NoteRight Eye Quality was good. Scan locations included subfoveal. Progression has been stable. Findings include abnormal foveal contour, pigment epithelial detachment. Left Eye Quality was good. Scan locations included subfoveal. Progression has been stable. Findings include abnormal foveal contour, pigment epithelial detachment. Notes Vitelliform change central OU [facility] [id number] History of Present illness Narrative* Ottoniel Louise DO - 11/20/2023 1:30 PM EDT Images [...] lid scrubs were recommended. documented in this encounterHawthorn Children's Psychiatric [id number] NotePatient Education Nutrition BMI for Adults What [...] numbers. This can be done either in [place] or metric measurements. Note that charts and online BMI calculators are available to help you find your BMI quickly and easily without having to do these calculations yourself. To calculate your BMI in [place] measurements: 1. Measure your weight in [...] for Disease Control and Prevention: www.cdc.gov ? [place] Heart Association: www.heart.org ? National Heart, Lung, and Blood Firth: www.nhlbi.nih.gov Summary ? Body mass index (BMI) is a number that is calculated from a person's weight and height. ? BMI may help estimate how much of a person's weight is composed of fat. BMI can help identify those who may be at higher risk for certain medical problems. ? BMI can be measured using [place] measurements or metric measurements. ? BMI charts are used to identify whether you are underweight, normal weight, overweight, or obese. This information is not intended to replace advice given to you by your health care provider. Make sure you discuss any questions you have with your health care provider. Document Revised: 11/13/2019 Document Reviewed: 09/20/2019 [employer] Patient Education ? 2022 [employer] 09-14-2023 NotePatient Education Mental and Behavioral [...] pray, or go to a place of sabianist. ? Do some deep breathing. To do [...] or salt (sodium). General instructions ? Take uywi-biw-ieeoyac and prescription medicines only as told by [...] Mental Health Jer[place]: www.me (more content not included)...[facility]12-05-2023 Evaluation note* Encounter Date Diagnosis Assessment Notes Treatment Notes Treatment Clinical Notes Feb, Fatty liver (ICD-10 - K76.0) Patient advised to make life style modifications-diet /exercise/weight loss. Repeat fibroscan in 1 yr Rto 1 yr [employer] Other 10-10-2023 Evaluation note* Encounter Date Diagnosis Assessment Notes Treatment Notes Treatment Clinical Notes Dec, RUQ pain (ICD-10 - R10.11) [employer] Other 02-17-2021 NoteMR#: [id number] I [facility] Pt. 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 SECONDARY DIAGNOSIS: None. HOSPITAL COURSE: The patient came to the [facility] for left reverse total shoulder arthroplasty [...] Schafer MD Date Trans: 04/22/2020 06:23 P/vicky [id number] cc: Amaury Monterroso M.D. [address] [place] [address] [facility] [phone] Children's HospitalEvaluation + Plan note Future Appointments Appointment Date:09/19/2022 10:40:00 AM Scheduled Provider:Yaniv Singh MD [facility] Appointment Type:FM Open Appointment Date:09/14/2023 11:00:00 AM Scheduled Provider: Location:[facility] [place] Appointment Type[facility]FM [facility] Future Appointments Appointment Date:09/19/2023 10:00:00 AM Scheduled Provider:[facility] Open Appointment Date:09/09/2024 11:00:00 AM Scheduled Provider: Location:[facility] Appointment Type:FM Medicare [facility]ness [facility] Future Appointments Appointment Date:02/13/2024 10:45:00 AM Scheduled Provider:[facility]iv [facility]: Open Appointment Date:09/09/2024 11:00:00 AM Scheduled Provider[facility] Type: Medicare Wellness Subsequent [facility] Evaluation + Plan note Future Appointments Appointment Date:09/09/2024 11:00:00 AM Scheduled Provider: Location:[facility] Appointment Type: Medicare Wellness Subsequent [facility] Evaluation note* Diagnosis Advanced atrophic nonexudative [...] Fatty liver acute April 10, 2024 11:29am [facility] Work Phone: Evaluation note* Diagnosis 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 Pain in right toe(s) [facility]* Diagnosis 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 documented in this encounter [facility] HealthcareHistory general Narrative - Reported* Type Description Date Medical History ASTHMA Medical History VERTIGO Medical History ESOPHAGEAL STRICTURE Surgical History SHOULDER REPLACEMENT Surgical History CHOLECYSTECOMY Hospitalization History SEE ABOVE [employer] Other Hospital course Narrative No data available for this section [facility] Dis[facility] instructions No data available for this section [facility] HospitalProgress note No data available for this section [facility] HospitalReason for referral (narrative)No reason for referral information availableWayne [facility] Work Phone: Summary Purpose Family History No Family History Records Found Relationship Condition Age at Onset Recorded Date/T lisa mother Malignant neoplasm of breast Unknown father Dementia Unknown father Unknown mother Unknown Relationship Condition Age at Onset Recorded Date/T ilsa mother Malignant neoplasm of breast Unknown Unknown [...] and content) DATE CREATED AUTHOR 04/11/2021 [facility] DATE CREATED AUTHOR AUTHOR'S ORGANIZ ATION 07/07/2022 [facility] DATE CREATED AUTHOR AUTHOR'S ORGANIZ ATION 09/22/2023 [facility] DATE CREATED AUTHOR AUTHOR'S ORGANIZ ATION 02/15/2024 [facility] DATE CREATED AUTHOR AUTHOR'S ORGANIZ ATION 06/27/2024 [facility] DATE CREATED AUTHOR AUTHOR'S ORGANIZ ATION 08/21/2024 [facility] DATE CREATED AUTHOR AUTHOR'S ORGANIZ ATION 08/23/2024 [facility] DATE CREATED AUTHOR AUTHOR'S ORGANIZ ATION 09/12/2024 [facility] DATE CREATED AUTHOR AUTHOR'S ORGANIZ ATION 09/26/2024 [facility] DATE CREATED AUTHOR AUTHOR'S ORGANIZ ATION 09/27/2024 [facility] DATE CREATED AUTHOR AUTHOR'S ORGANIZ ATION 10/05/2024 [facility] DATE CREATED AUTHOR AUTHOR'S ORGANIZ ATION 10/22/2024 [facility] Patient Care team informatio n (unrecognized section and content) 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 Relationship Specialty Start Date End Date Yaniv Singh MD [address] [place] [phone] PCP - General Family Medicine 11/20/23 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 Relationship Specialty Start Date End Date Yaniv Singh MD [address] [place] [phone] PCP - General Family Medicine 11/20/23 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 Relationship Specialty Start Date End Date Yaniv Singh MD [address] [place] [address] PCP - General Family Medicine 11/20/23 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 Relationship Specialty Start Date End Date Yaniv Singh MD [address] [place] [address] PCP - General Family Medicine 11/20/23 Team [...] May 08, 2024 End: May 08, 2024 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 Relationship Specialty Start Date End Date Yaniv Singh MD [address] [place] [address] PCP - General Family Medicine 11/20/23 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 Relationship Specialty Start Date End Date Yaniv Singh MD [address] [place] [address] PCP - General Family Medicine 11/20/23 Team [...] Provider Active Start: September 05, 2024 Curtis Morales MD Attending Provider Activ e Start: September 05, 2024 Team Status: Active Member Role Status Dates DAWIT Ryan Primary Care Provider Active Team Status: Inactive Member Role Status Dates Rosa M Romano APRN Emergency Provider Active Start: September 05, 2024 End: September 05, 2024 Marlee Malcolm NP-Kalpana Primary Care Provider Active Start: September 05, [...] BE BASED ON THE PRIMARY CLINICAL RECORDS. [employer] provides no warranty or guarantee of the accuracy or completeness of information in this document.
--- NOTE | 2024-10-24 13:30 | PM.WCHP ---
Wound Care H&P: HPI History of Present Illness Narrative: The patient is a pleasant 84-year-old female with history of postpolio syndrome who presents for routine toenail care and callus management. The patient states she has a callus on the right fifth toe that is very painful and limits her ability to walk and carry out ADLs. Her postpolio syndrome has affected her right leg and foot and has resulted in numbness in her foot and weakness. [facility] Medical History (Updated 07/25/24 @ 13:42 by TIMOTHY Gutierres) Osteoarthritis ?M19.90 - Unspecified osteoarthritis, unspecified site (ICD-10) Hypothyroid ?E03.9 - Hypothyroidism, unspecified (ICD-10) Asthma ?J45.909 - Unspecified asthma, uncomplicated (ICD-10) Irregular heart beat ?I49.9 - Cardiac arrhythmia, unspecified (ICD-10) Hypertension ?I10 - Essential (primary) hypertension (ICD-10) Surgical History (Updated 08/05/22 @ 13:31 by Dominique Castellanos) History of cholecystectomy ?Z90.49 - Acquired absence of other specified parts of digestive tract (ICD-10) History of arthroplasty of left shoulder ?Z96.612 - Presence of left artificial shoulder joint (ICD-10) History of arthroplasty of right shoulder ?Z96.611 - Presence of right artificial shoulder joint (ICD-10) Status post tonsillectomy and adenoidectomy ?Z90.89 - Acquired absence of other organs (ICD-10) Social History Little interest or pleasure in doing things: not at all Feeling down, depressed, or hopeless: not at all Meds Home Medications and Allergies Home Medications ?Medication ?Instructions ?Recorded ?Confirmed ?Type acetaminophen 500 mg tablet 500 mg PO BID PRN pain 08/05/22 08/05/22 History (Tylenol Extra Strength) aspirin 81 mg capsule 81 mg PO DAILY 08/05/22 08/05/22 History budesonide-formoterol HFA 80 2 inh inhalation BID 08/05/22 08/05/22 History mcg-4.5 mcg/actuation aerosol inhaler (Symbicort) calcium carbonate (Antacid 200 mg PO DAILY 08/05/22 08/05/22 History (calcium carbonate)) candesartan 4 mg tablet (Atacand) 4 mg PO DAILY 08/05/22 08/05/22 History celecoxib 200 mg capsule (Celebrex) 200 mg PO BID 08/05/22 08/05/22 History digoxin 125 mcg (0.125 mg) tablet 125 mcg PO DAILY 08/05/22 08/05/22 History (Digitek) levothyroxine 50 mcg tablet 50 mcg PO DAILY 08/05/22 08/05/22 History (Euthyrox) metoprolol tartrate 25 mg tablet 25 mg PO .hs 08/05/22 08/05/22 History montelukast 10 mg tablet 10 mg PO DAILY 08/05/22 08/05/22 History (Singulair) pro-air inhaler 08/05/22 History spironolactone 25 mg tablet 25 mg PO DAILY 08/05/22 08/05/22 History (Aldactone) vit C 250 mg-vit E 90 mg-zinc 40 1 tab PO BID 08/05/22 08/05/22 History mg-copper 1 bb-bninad-wbsrxz capsule (PreserVision AREDS-2) Allergies Allergy/AdvReac Type Severity Reaction Status Date / Time Sulfa (Sulfonamide Allergy Mild Nausea Verified 08/05/22 13:18 Antibiotics) Exam Narrative: Exam Narrative: Derm: Toenails 1 through 10 are thickened, elongated, mycotic, and painful. Right hallux toenail is partially absent with just a spicule growing from the medial nail fold. No evidence of paronychia. Small callus noted on the right lateral fifth toe where it purchases the ground. No ulceration noted at base. No sign of infection. Skin is diffusely dry, thin, and atrophic. Vascular: DP and PT pulses are nonpalpable on the right. DP pulses 2/4 on the left and PT pulses 1/4 on the left. Neuro: Vibratory sensation is absent on the right, present on the left. Achilles deep tendon reflex is 1+ on the right and absent on the left. Protective sensation was tested with the monofilament and is present in 1/5 areas tested on the right and 3/5 areas tested on the left. Weakness noted in all planes, but especially with with dorsiflexion of the right foot. Musculoskeletal: Hammertoe and rotational deformity noted of the right fifth toe. Weakness noted on the right foot/ankle. No gross deformity or weakness noted on the left. Assessment and Plan Assessment and Plan (1) Tinea unguium: (2) Diminished pulses in lower extremity: (3) Callus of foot: (4) Abnormality of gait due to impairment of balance: (5) Post-polio limb muscle weakness: Plan Routine nail care performed. Callus on the right fifth toe was pared with a dermal curette without incident. Patient noted pain relief postprocedure. She was encouraged to use a moisturizer and foot file to keep the callus exfoliated. Follow-up in 3 months or as needed. Acute Procedures Podiatry Nail Debridement Class B Findings Absent posterior tibial pulse: right Advanced trophic changes as evidenced by any three of the following: decreased hair growth, nail changes (thickening) and skin texture (thin or shiny) Absent dorsalis pedis pulse: right Class C Findings Claudication: No Temperature changes: No Edema: No Nail debridement paresthesia (abnormal spontaneous sensations in the feet): No Burning: No Qualifies If: Qualifiers If:: A patient qualifies for nail debridement if they have: 1 class A finding (Q7) 2 class B findings (Q8) OR 1 class B & 2 class C findings in addition to a primary condition (Q9) Nail Procedure Nail Procedure Time out: Yes Nail procedure: other (Toenail debridement toes 1 through 10, callus paring right toe #5) Number of affected nails: 10 Location (toes): left and right Procedure successful: Yes Patient tolerated procedure: well and no complications Additional comments: Toenails 1 through 10 were sharply debrided with nail nippers without incident. Callus on the right fifth toe was pared with a dermal curette without incident.
== END 2024-10-24 13:02 | disposition home or self-care (01) ==
LOC: WC 13:01
PROVIDERS: PCP Nurse Practitioner; Visit Provider Physician Assistant
DX: B35.1 Tinea unguium (principal); R09.89 Other specified symptoms and signs involving the circulatory and respiratory systems; L84 Corns and callosities; R26.89 Other abnormalities of gait and mobility; G14 Postpolio syndrome
CPT/HCPCS: 11721

== ENCOUNTER 2024-10-25 14:58 | Outpatient (RCR) | payer MEDICARE, SELFPAY | END 2024-11-18 10:24 | disposition home or self-care (01) | LOC: PT 14:58 | PROVIDERS: PCP Nurse Practitioner; Visit Provider Orthopaedic Surgery Sports Medicine | DX: M25.511 Pain in right shoulder (principal) ==

== ENCOUNTER 2024-12-04 13:35 | Outpatient (OUT) | payer MEDICARE, SELFPAY | END 2024-12-04 13:36 | disposition home or self-care (01) | LOC: WC 13:35 | PROVIDERS: PCP Nurse Practitioner; Visit Provider Physician Assistant | DX: L84 Corns and callosities (principal); I73.89 Other specified peripheral vascular diseases | CPT/HCPCS: 11055 ==

== ENCOUNTER 2024-12-09 10:00 | Outpatient (RCR) | payer MEDICARE, SELFPAY | END 2025-01-01 06:53 | disposition home or self-care (01) | LOC: PT 10:00 | PROVIDERS: PCP Nurse Practitioner; Visit Provider Physical Medicine & Rehabilitation | DX: M25.551 Pain in right hip (principal); Z96.641 Presence of right artificial hip joint | CPT/HCPCS: 97110; 97112; 97161 ==

== ENCOUNTER 2025-01-20 17:14 | Emergency (ER) | payer MEDICARE, SELFPAY ==
[2025-01-20 17:21] VITALS: BP 124/73; PULSE 91; TEMP 36.5; O2SAT 97; BMI 25.3
--- NOTE | 2025-01-20 18:36 | ED.GENADUL1 ---
HPI HPI - General Adult General Chief complaint: Skin/Abscess/Foreign Body Stated complaint: PAIN FROM POSS SHINGLES Time Seen by Provider: 01/20/25 17:51 Source: patient Mode of arrival: walk-in Limitations: no limitations History of Present Illness HPI narrative: Patient is an 84-year-old female that presents with complaints of pain from her shingles that is on her right buttock and travels down her posterior thigh, and mid thigh that is preventing her from sleeping well. She has been taking extra strength Tylenol and states that the part on her right buttock bothers her more when she lays down to try and rest or sleep. She states that the outbreak started January 09 and she also had a total hip replacement with Dr. Hernandez in november. She reports that she was on an antibiotic that she finished today, on med check this was an antiviral valacyclovir x 3 days that her PCP, Dr Cottrell, gave her. Related Data Home Medications ?Medication ?Instructions ?Recorded ?Confirmed acetaminophen 500 mg tablet 500 mg PO BID PRN pain 08/05/22 08/05/22 (Tylenol Extra Strength) aspirin 81 mg capsule 81 mg PO DAILY 08/05/22 08/05/22 budesonide-formoterol HFA 80 2 inh inhalation BID 08/05/22 08/05/22 mcg-4.5 mcg/actuation aerosol inhaler (Symbicort) calcium carbonate (Antacid 200 mg PO DAILY 08/05/22 08/05/22 (calcium carbonate)) candesartan 4 mg tablet (Atacand) 4 mg PO DAILY 08/05/22 08/05/22 celecoxib 200 mg capsule (Celebrex) 200 mg PO BID 08/05/22 08/05/22 digoxin 125 mcg (0.125 mg) tablet 125 mcg PO DAILY 08/05/22 08/05/22 (Digitek) levothyroxine 50 mcg tablet 50 mcg PO DAILY 08/05/22 08/05/22 (Euthyrox) metoprolol tartrate 25 mg tablet 25 mg PO .hs 08/05/22 08/05/22 montelukast 10 mg tablet 10 mg PO DAILY 08/05/22 08/05/22 (Singulair) pro-air inhaler 08/05/22 spironolactone 25 mg tablet 25 mg PO DAILY 08/05/22 08/05/22 (Aldactone) vit C 250 mg-vit E 90 mg-zinc 40 1 tab PO BID 08/05/22 08/05/22 mg-copper 1 [id number] capsule (PreserVision AREDS-2) Allergies Allergy/AdvReac Type Severity Reaction Status Date / Time Sulfa (Sulfonamide Allergy Mild Nausea Verified 08/05/22 13:18 Antibiotics) Opioid HPI Opioid Management Most Recent Opioid Data: Last Pain Scale 5 05/13/24, 09:58 Last MAR Pain Assessment 01/20/25, 20:01 Review of Systems ROS Status of ROS 10 or more systems reviewed and unremarkable except as noted in history and below [facility] Medical History (Updated 01/20/25 @ 19:49 by TIMOTHY Duggan) Osteoarthritis ?M19.90 - Unspecified osteoarthritis, unspecified site (ICD-10) Hypothyroid ?E03.9 - Hypothyroidism, unspecified (ICD-10) Asthma ?J45.909 - Unspecified asthma, uncomplicated (ICD-10) Irregular heart beat ?I49.9 - Cardiac arrhythmia, unspecified (ICD-10) Hypertension ?I10 - Essential (primary) hypertension (ICD-10) Surgical History (Updated 08/05/22 @ 13:31 by Dominique Castellanos) History of cholecystectomy ?Z90.49 - Acquired absence of other specified parts of digestive tract (ICD-10) History of arthroplasty of left shoulder ?Z96.612 - Presence of left artificial shoulder joint (ICD-10) History of arthroplasty of right shoulder ?Z96.611 - Presence of right artificial shoulder joint (ICD-10) Status post tonsillectomy and adenoidectomy ?Z90.89 - Acquired absence of other organs (ICD-10) Social History Little interest or pleasure in doing things: not at all Feeling down, depressed, or hopeless: not at all Exam Narrative Exam Narrative: General: No distress, age-appropriate Skin: Warm, dry, no pallor. Rash right buttock that extends down the posterior right thigh, and mid thigh consistent with shingles. No drainage, no surrounding erythema. No warmth. Head: Normocephalic, atraumatic. Neck: Supple, non-tender. Eye: Pupils are equal, round and EOMI. No scleral icterus. Ears, Nose, Mouth, and Throat: No nasal mucosal hypertrophy. Oral mucosa is moist, no posterior oropharynx erythema, uvula is mid-line Cardiovascular: Regular Rate and Rhythm without murmur, gallop or rub. Respiratory: No accessory muscle use or respiratory distress. Musculoskeletal: Full ROM of all extremities, no calf or popliteal tenderness. Surgical incisions are well-healed, no surrounding erythema, shingles rash as above. Tenderness cannot be reproduced on exam. Neurological: A&O x4. No cranial nerve dysfunction observed. No truncal ataxia. Moves all extremities. Sensation intact. Psychiatric: Cooperative and interactive. Normal mood and affect. Constitutional Vital Signs, click to edit/add: Last Vital Signs Temp 97.7 F 01/20/25 17:21 Pulse 91 H 01/20/25 17:21 Resp 18 01/20/25 17:21 BP 124/73 01/20/25 17:21 Pulse Ox 97 01/20/25 17:21 O2 Del Method Room Air 01/20/25 17:21 Documenting provider has reviewed patient's vital signs: yes Course Vital Signs Vital signs: Vital Signs Temperature 97.7 F 01/20/25 17:21 Pulse Rate 91 H 01/20/25 17:21 Respiratory Rate 18 01/20/25 17:21 Blood Pressure 124/73 01/20/25 17:21 Pulse Oximetry 97 01/20/25 17:21 Oxygen Delivery Method Room Air 01/20/25 17:21 Temperature 97.7 F 01/20/25 17:21 Pulse Rate 91 H 01/20/25 17:21 Respiratory Rate 18 01/20/25 17:21 Blood Pressure 124/73 01/20/25 17:21 Pulse Oximetry 97 01/20/25 17:21 Oxygen Delivery Method Room Air 01/20/25 17:21 Medical Decision Making MDM Narrative Medical decision making narrative: This is a 84-year-old that presented to the ED with complaints of persistent right buttock pain after a shingles outbreak that started about 10 days ago. She also had a right total hip replacement with Dr. Hernandez 2 months ago. She has been taking valacyclovir for 3 days from her PCP but states that she is still having a lot of pain when she tries to go to sleep, more specifically in her right buttock. Her PCP could not see her today, she does have appointment tomorrow but needs some pain relief to help her sleep. Patient observed ambulating without issue, shingles rash extends from right buttock down posterior thigh. No signs of infection. Pain can be reproduced on exam but she notes when she tries to sleep it is in her right mid buttock area. It does not cause any issues with ambulation. 100 mg of tramadol given in ED. On reevaluation patient reports some improvement and would like to go home and try to sleep. I did give her 50 mg tramadol dose to go in case she wakes up in the middle of the night with breakthrough pain. She can continue to take her extra strength Tylenol with this. Patient voiced understanding. I recommended keeping her scheduled appointment with Dr. Cottrell, her PCP tomorrow. Patient's pain controlled, continue and ambulation stable, and was discharged from the emergency department with plan for follow-up with PCP tomorrow. Differential Diagnosis Differential Diagnosis: Postherpetic neuralgia, postop pain total hip Discharge Plan Discharge Chief Complaint: Skin/Abscess/Foreign Body Clinical Impression: Acute pain associated with herpes zoster Patient Disposition: Home, Self-Care Time of Disposition Decision: 19:48 Condition: Good Mode of Transportation: Private Vehicle Prescriptions / Home Meds: No Action digoxin [Digitek] 125 mcg (0.125 mg) tablet 125 mcg PO DAILY montelukast [Singulair] 10 mg tablet 10 mg PO DAILY spironolactone [Aldactone] 25 mg tablet 25 mg PO DAILY candesartan [Atacand] 4 mg tablet 4 mg PO DAILY metoprolol tartrate 25 mg tablet 25 mg PO .hs budesonide-formoterol [Symbicort] 80-4.5 mcg/actuation HFA aerosol inhaler 2 inh inhalation BID aspirin 81 mg capsule 81 mg PO DAILY calcium carbonate [Antacid (calcium carbonate)] 200 mg calcium (500 mg) tablet,chewable 200 mg PO DAILY levothyroxine [Euthyrox] 50 mcg tablet 50 mcg PO DAILY PreserVision AREDS-2 250-90-40-1 mg capsule 1 tab PO BID celecoxib [Celebrex] 200 mg capsule 200 mg PO BID acetaminophen [Tylenol Extra Strength] 500 mg tablet 500 mg PO BID PRN (Reason: pain) pro-air inhaler inhaler Print Language: Martiniquais Instructions: Shingles (ED) Additional Instructions: May take ultram sent home with you for pain after 1am. Follow up with your doctor tomorrow as scheduled. Referrals: Physician,Non-Staff, MD [Primary Care Provider] - 01/21/25 Referral Note: See Dr Cottrell tomorrow as scheduled. Discharge Date/Time: 01/20/25 20:07
--- OUTSIDE RECORDS SUMMARY | 2025-01-20 18:39 | XMS_ITS | CCD ---
Author Organization [facility] Care Team Providers Care Bailiff Name Role Phone AMAURY MONTERROSO Primary Care Unavailable AMAURY MONTERROSO Referring Unavailable AMANDAATTAR, OSAMA Admitting Unavailable SUSANA OSAOTTO Attending Unavailable [place] Procedure Practitioner Unavailab BERTHA Ahumada Surgeon Unavailable [...] Yanes Attending Unavailable MONTERROSO ., DR AMAURY Ynaes Admitting Unavailable MONTERROSO ., DR AMAURY Yanes [...] Unavailable Yaniv Singh MD Primary Care Provider [phone] MD Yaniv Singh. Attending Unavailable MD Yaniv Singh. Admitting Unavailable MD Yaniv Singh. Attending Unavailable MD Yaniv Singh. Attending Unavailable MELISSA RODRIGEZ Admitting Unavailable MELISSA RODRIGEZ Attending Unavailable Yaniv Singh MD Primary Care Provider Marija Vega MD Attending Provider Yaniv Singh MD Primary Care Provider Marija Vega MD Attending Provider Fred Hernandez MD Attending Provider MELISSA RODRIGEZ Admitting Unavailable MELISSA RODRIGEZ Attending Unavailable Yaniv Singh ELynn Attending Unavailable Yun, GUEST HOUSE MANAGER Marlee L Attending Unavailable Yaniv Singh ELynn Attending Unavailable Francisco Yaniv ELynn Attending Unavailable Francisco Yaniv ELynn Attending Unavailable Abdelrahman Singhuel ELynn Attending Unavailable Ross Yaniv ELynn Attending Unavailable Yun, GUEST HOUSE MANAGER Marlee L Attending Unavailable Francisco Yaniv ELynn Admitting Unavailable Yaniv Singh Attending Unavailable Yaniv Singh MD Primary Care Provider Fred Hernandez MD Attending Provider Curtis Morales MD Attending Provider Rosa M Romano APRN Emergency Provider [phone] Yun BROWNING PROCESSOR-CMarlee Primary Care Provider Yaniv Singh Attending Unavailable Yun, GUEST HOUSE MANAGER Marlee L Attending Unavailable Yaniv Singh ELynn Attending Unavailable Yun, GUEST HOUSE MANAGER Marlee L Attending Unavailable Francisco Yaniv ELynn Admitting Unavailable Yaniv Singh Attending Unavailable DOLCE, ULI R Attending Unavailable DOLCE, ULI R Attending Unavailable DANI OTTONIEL Mely Attending Unavailable OTTONEIL LOUISE Attending Unavailable OTTONIEL LOUISE Attending Unavailable OTTONIEL LOUISE Attending Unavailable Yaniv Singh MD Primary Care Provider [phone] BERTHA MULTANI Attending Unavailable MELISSA RODRIGEZ Attending Unavailable BERTHA MULTANI Referring Unavailable CRISSY SCHULER Attending Unavailable Yaniv Singh MD Primary Care Provider Fred Hernandez MD Attending Provider Fred Hernandez MD Other Provider Lorenza RN, Adalgisa Other Provider Unavailable Benjamin RN, Karine Other Provider Unavailable Arley RN, Love Other Provider Unavailable Vivienne RN, Gabrielle Other Provider Unavailable Francisco RN, Tonya Other Provider Unavailable Gopal RN, Tamia Other Provider Unavailable Nicholas Mckinley MD Other Provider Akhil NESS, Debby Other Provider [phone] Jacinto Billy MD Other Provider Joey Avelar DO Other Provider Marvel BELTRAN, Richard Other Provider Herminia Ashton MD Other Provider Jovon Mendez DO Other Provider Sanchez BELTRAN, Carlo Other Provider Unavailable Debbie Mendoza APRN Other Provider Garcia BELTRAN, Maximo Other Provider Doris Hallman MD Other Provider Unavailable Ksenia Rosario MD Other Provider Jovon Cramer DO Other Provider Abhishek Ngo MD Other Provider Alexis Dickson MD Other Provider Kristen BROWNING PROCESSOR-C, Kailee Chavarria Other Provider Merlin Swift APRN Other Provider Unavailable Jayson Deal MD Other Provider Aj BELTRAN, Tej Other Provider Brian BELTRAN, Coleen Other Provider Unavailable Kemar Brown DO Other Provider Stephanie PERSAUD, Cindy Other Provider Acosta Ptots DO Other Provider Rubén BELTRAN, John Mcneil Other Provider Areli Bear APRN Other Provider Stefania PERSAUD, Argelia Acuna Other Provider Elena BELTRAN, Beryl Other Provider Unavailable Sukhjinder BELTRAN, Orestes Chavarria Other Provider Anil Baires DO Other Provider Jero BELTRAN, Mayur Carr Other Provider Mark BELTRAN, Mikhail Sow Other Provider [phone] Froilan PERSAUD, Elissa Other Provider Unavailable Geovanny BELTRAN, Dejuan Other Provider Robert BELTRAN, Harlan Giraldo Other Provider Lena BELTRAN, Carlo Garcia Other Provider Bobo BELTRAN, Dat Other Provider Derick PERSAUD, Elina Izquierdo Other Provider Belinda PERSAUD, Kb Other Provider [phone] Becky WOODY, Cinthia Other Provider Unavailable Harlan Herron MD Other Provider Antonio Roche MD Admit Provider Antonio Roche MD Attending Provider [phone] Sara Liriano MD Other Provider Jovon Mendez DO Other Provider Unavailab Antonio Vann MD Other Provider Lucie Yanes APRN Attending Provider Yun BROWNING PROCESSOR-C, Marlee Lewis Primary Care Provider [phone] Curtis Morales MD Attending Provider Yun, GUEST HOUSE MANAGER Marlee L Attending Unavailable Yun, GUEST HOUSE MANAGER Marlee L Attending Unavailable Yun, GUEST HOUSE MANAGER Marlee L Attending Unavailable Yun, GUEST HOUSE MANAGER Marlee L Admitting Unavailable Yun, GUEST HOUSE MANAGER Marlee L Attending Unavailable Yaniv Singh Admitting Unavailable Yaniv Singh Attending Unavailable Yun, GUEST HOUSE MANAGER Marlee L Attending Unavailable Bobbs, Shauni L. Attending Unavailable Marlee Malcolm Primary Care Unavailable Adalgisa Britt Consulting Unavailable Fred Hernandez II Attending UnavailFred Adam II Admitting UnavailKarine Patel Consulting Unavailable Love Tubbs Consulting Unavailable Gabrielle Palafox Consulting Unavailable Tonya Singh Consulting Unavailable Tamia Herron Consulting Unavailable Nicholas Mckinley Consulting Unavailable Debby Landaverde Consulting Unavailable Jacinto Billy Consulting Unavailable Joey Avelar Consulting UnavailRichard Chavarria Consulting Unavailable Herminia Ashton Consulting Unavailable Jovon Mendez Consulting Unavailable Carlo Bradford Consulting Unavailable Debbie Mendoza Consulting UnavailMaximo Macdonald Consulting Unavailable Doris Hallman Consulting Unavailable Ksenia Rosario Consulting Unavailable Jovon Cramer Consulting Unavailable Abhishek Ngo Consulting Unavailable Alexis Dickson Consulting Unavailable Kailee Peterson Consulting Unavailable Merlin Swift Consulting Unavailable DoJayson springer Consulting Unavailab Tej Vanegas Consulting Unavailable Coleen Torres Consulting Unavailable Kemar Brown Consulting Unavailable Cindy Brown Consulting Unavailable Acosta Potts Consulting Unavailable John [place] Consulting Unavailable Areli Bear Consulting Unavailable Argelia Aguiar Consulting Unavailable Alayevgeniy Alaa Consulting Unavailable Orestes Slaughter Consulting Unavailable Anil Baires Consulting Unavailable Mayur Nogueira Consulting Unavailable Mikhail Flores Consulting Unava Elissa Barbour Consulting Unavailable Dejuan Small Consulting Unavailable Harlan Jones Consulting Unavailable Carlo Paredes Consulting Unavailable Dat Broussard Consulting Unavailable Elina Sepulveda Consulting Unavailable Kb Trevino Consulting Unavaila Cinthia Natarajan Consulting Unavailable Harlan Herron Consulting Unavailable Antonio Roche Attending Unavaila Adalgisa Horton Consulting Unavailable Antonio Roche Admitting Unavaila Marlee Blankenship Primary Care Unavailable Karine Alexander Consulting Unavailable Love Tubbs Consulting Unavailable Gabrielle Palafox Consulting Unavailable Tonya Singh Consulting Unavailable Tamia Herron Consulting Unavailable Nicholas Mckinley Consulting Unavailable Debby Landaverde Consulting Unavailable Jacinto Billy Consulting Unavailable Joey Avelar Consulting UnavailRichard Chavarria Consulting Unavailable Herminia Ashton Consulting Unavailable Jovon Mendez Consulting Unavailable Carlo Bradford Consulting Unavailable Debbie Mendoza Consulting UnavailMaximo Macdonald Consulting Unavailable Doris Hallman Consulting Unavailable Ksenia Rosario Consulting Unavailable Jovon Cramer Consulting Unavailable Abhishek Ngo Consulting Unavailable Alexis Dickson Consulting Unavailable Kailee Peterson Consulting Unavailable Merlin Swift Consulting Unavailable Jayson Deal Consulting Unavailab Tej Vanegas Consulting Unavailable Coleen Torres Consulting Unavailable Kemar Brown Consulting Unavailable Cindy Brown Consulting Unavailable Acosta Potts Consulting Unavailable John [place] Consulting Unavailable Areli Bear Consulting Unavailable Argelia Aguiar Consulting Unavailable Alahmad, Alaa Consulting Unavailable Orestes Slaughter Consulting Unavailable Dequan Yagurpreet Consulting Unavailable Mayur Nogueira Consulting Unavailable Mikhail Flores Consulting Unava rimmaable Elissa Mcgovern Consulting Unavailable Dejuan Small Consulting Unavailable Harlan Jones Consulting Unavailable Carlo Paredes Consulting Unavailable Dat Broussard Consulting Unavailable Elina Sepulvdea Consulting Unavailable Kb Trevino Consulting Unavaila Sara Walker Consulting Unavailable Cinthia Pena Consulting Unavailable Fred Hernandez II Attending UnavailFred Adam II Admitting Unavailabl e Francisco, Yaniv E Primary Care Unavailable Fred Hernandez II Attending Unavailnery Hernandez II, Fred Mcneil Admitting Unavailabl e Francisco, Yaniv E Primary Care Unavailable Asaad, Imad Attending Unavailable Asaad, Imad Admitting Unavailable Francisco, Yaniv E Primary Care Unavailable Rosa M Romano Admitting Unavailable Marlee Malcolm Primary Care Unavailable Rosa M Romano Attending Unavailable Fred Hernandez II Admitting Unavailnery Hernandez II, Fred Mcneil Attending Unavailabl e Yun, Marlee Lewis Primary Care Unavailable David JESUS, Fred Mcneil Attending Unavailabl e David II, Fred Mcneil Admitting Unavailabl e Yun, Marlee Lewis Primary Care Unavailable Koromconner, Curtis Mohan Attending Unavamarion lable Koromia, Curtis Mohan Admitting Unavai lable Yun, Marlee Lewis Primary Care Unavailable David JESUS, Fred Mcneil Attending Unavailabl e [place] II, Fred Mcneil Admitting Unavailabl e Yun, Marlee Lewis Primary Care Unavailable Koromia, Curtis Mohan Admitting Unavai lable Koromia, Curtis Mohan Attending NenavaYaniv Johnson Primary Care Unavailable Yun, Marlee Cortés Admitting Unavailable Yun, Marlee Cortés Attending Unavailable Yun, Marlee Cortés Admitting Unavailable Bobbs, Stew LLynn Attending Unavailable Bobbs, Stew Kennedy Attending Unavailable Bobbs, Stew Kennedy Attending Unavailable RODRIGOLEA A Attending Unavailable Bobbs, Stew Kennedy Attending Unavailable RODRIGOLEA A Attending Unavailable Yun, Marlee Cortés Attending Unavailable RODRIGOLEA LONG Attending Unavailable Allergies Allergy ClassificationReported Allergen(s)Allergy TypeDate of OnsetReaction(s) Facility (1 source)Hicks powder; Translations: [hicks powder]Propensity to adverse reactions (disorder)80-14-6648Hum [facility] Repository (1 source)eggplant extractDrug Irccdcv15-31-4386[facility] (16 sources)Sulfonamides (Antibiotic); Translations: [SULFA (SULFONAMIDE ANTIBIOTICS)]Propensity to adverse reactions (disorder)09-50-1486WbezkeXsr [facility] Repository (1 source)HYDROcodoneDrug Kqqhmdh20-93-4028WcnSelect [facility] (1 source)Sulfonamides (Antibiotic)Drug allergy (disorder)93-02-1059Vmb [facility] Repository (9 sources)Amoxicillin / Clavulanate; Translations: [amoxicillin-clavulanate] Drug AllergyUnknown (qualifier value)[facility] (20 sources)Fluconazole; Translations: [fluconazole]Drug Iddzsge66-90-9204 Unknown (qualifier value)[facility] (9 sources)Sulfonamides (Antibiotic); Translations: [sulfa drugs]Drug allergy Unknown (qualifier value)[facility] (20 sources)traMADol; Translations: [tramadol]Drug Holwqyr69-03-8066Ubqyyng (qualifier value)[facility] (14 sources)FluconazoleAllergy to fdrknuvqr32-74-8564ND[facility] (14 sources)Sulfonamides (Antibiotic)Drug Ppsmhng82-47-6518JuxufbiSEHZ Healthcare (15 sources)Amoxicillin-Pot Clavulanate; Translations: [AMOXICILLIN-POT CLAVULANATE]Drug Pfmgmch65-43-2875RnrvmalFXKH Healthcare Work Phone: (14 sources)Amoxicillin; Translations: [amoxicillin]Drug Eoqhfaz52-19-8647 [facility]Do[facility] (14 sources)Clavulanate; Translations: [clavulanic acid]Drug Pyaizib85-20-7585 Unknown ReactionDoctors Hospital (11 sources)predniSONE; Translations: [prednisone]Drug Otdgrxz21-18-0498 constipationDoctors Hospital (1 source)FluconazoleDrug Uchzsrw93-30-4289DievqtffnDoctors Hospital Repository (1 source)traMADolDrug Absnqdt76-15-2556UuzkhjhhgDoctors Hospital Repository Medications Current Medications MedicationDrug Class(es)DatesSig (Normalized)Sig (Original)acetaminophen 500 mg oral tablet (20 sources)Start: 11-07-2024 End: 54-26-2450dijx 2 tablets by mouth every eight hours as needed for pain Acetaminophen 500 mg Tablet Active 1000 MG PO Q8H as needed for Pain 0 0 December 02, 2024 12:00am Complies with drug therapyStart: 11-01-2024 End: 79-35-1966ayou 1 tablet by mouth twice dailyAcetaminophen (Acetaminophen Extra Strength) 500 mg tablet Discontinued 500 MG PO Twice daily November 01, 2024 12:00am December 02, 2024 10:51amStart: 07-10-2018 End: 59-15-1220nqis 1 tablet by mouth twice daily as needed for pain Acetaminophen (Tylenol Extra Strength) 500 mg Tablet Discontinued 500 MG PO Twice daily as needed for Pain July 10, 2018 12:00am September 04, 2024 8:22am acetaminophen (Tylenol Extra Strength) 500 MG tablet every 6 (six) hours. Active [id number] 200 actuat albuterol 0.09 mg/actuat metered dose inhaler (20 sources)beta2-Adrenergic AgonistStart: 90-84-5040worj 1 puff(s) by inhalation every four to six hours as needed for wheezingAlbuterol Sulfate 90 mcg/actuation HFA aerosol inhaler Active 2 PUFF INHALATION EVERY 4-6 HOURS as n eeded for shortness of breath or wheezing September 04, 2024 12:00am Complies with drug therapyStart: 73-53-0622UosJgo HFA Inhalation, q6hr Wheezing, Refill(s) 0 Start Date: 09/08/22 Status: OrderedStart: 19-00-9923wgqw 2 puff(s) by inhalation every four hours as neededalbuterol HFA (Proventil HFA) 90 mcg/act inhaler 2 puff(s), Inhalation, q4hr, Refill(s) 0, as needed 07/05/2022 ActiveAlbuterol (Eqv-ProAir HFA) 90 mcg/inh inhalation aerosol (3 sources)Start: 00-89-5263Gavloyitj (Eqv-ProAir HFA) 90 mcg/inh inhalation aerosol See Instructions, 8.5 EA, Refill(s) 0, TAKE 2 PUFFS EVERY 4 HOURS NEEDED, [id number], 148, cm, 07/19/23 10:14:00 EDT, Height/Length Dosing, 61.7, kg, 07/19/23 10:14:00 EDT, Weight Dosing Start Date: 08/15/23 Status: Ordered Quantity: 8.5 Unit: EA Repeat number: 1Start: 58-47-4472Wyymetefe (Eqv- ProAir HFA) 90 mcg/inh inhalation aerosol See Instructions, 8.5 EA, Refill(s) 0, TAKE 2 PUFFS EVERY 4 HOURS NEEDED, [id number], 148, cm, 07/19/23 10:14:00 EDT, Height/Length Dosing, 61.7, kg, 07/19/23 10:14:00 EDT, Weight Dosing Start Date: 08/15/23 Status: OrderedAspir-81 (2 sources)Aspir-81 Activeaspirin 81 mg delayed release oral tablet (20 sources)Platelet Aggregation Inhibitor, Nonsteroidal Anti-inflammatory Drug Start: 86-21-8735dymw 1 tablet by mouth once dailyAspirin 81 mg tablet,delayed release (DR/EC) Active 81 MG PO daily December 04, 2024 11:00am Complies with drug therapyStart: 11-07-2024 End: 52-94-1263wgqq 1 tablet by mouth twice dailyAspirin 81 mg tablet,delayed release (DR/EC) Discontinued 81 MG PO Twice daily 60 30 0 December 02, 2024 10:49am December 04, 2024 11:03am DO NOT RECONCILE UNTIL DOS:11/19/2024 MED TO BEDStart: 33-72-4262dpjc 81 mg by mouth once dailyaspirin 81 mg, Oral, Daily, Refills(s) 0 Start Date: 09/08/22 Status: Ordered Repeat number: 1Start: 07-10-2018 End: 37-36-9662vuki 1 tablet by mouth once dailyAspirin 81 mg Tablet,Chewable Discontinued 81 MG PO Daily July 10, 2018 12:00am November 25, 2024 2:06pm On Hold: Resume on 12/25/24.aspirin 81 MG EC tablet 1 (one) time each day at the same time. ActiveSymbicort (20 sources)Corticosteroid, beta2-Adrenergic AgonistStart: 23-72-1934Gtknawcpj 80/4.5, Inhalation, BID, Refill(s) 0 Start Date: 09/08/22 Status: Ordered Repeat number: 1Start: 81-91-6026Zghhvccub 80/4.5, Inhalation, BID, Refill(s) 0 Start Date: 09/08/22 Status: OrderedStart: 52-65-3547Psdeiydvq 80-4.5 MCG/ACT inhaler 06/13/2022 ActiveStart: 67-45-5731yaya 1 puff(s) by inhalation twice daily Budesonide-Formoterol 80-4.5 mcg/actuation HFA aerosol inhaler Active 2 PUFF INHALATION Twice dailyJuly 10, 2018 12:00am Complies with drug therapyStart: 80-58-5488sfwk 1 puff(s) by inhalation twice dailyStart: 57-92-6903bzon 1 puff(s) by inhalation twice dailytake 2 puff(s) by inhalation twice daily Symbicort 80-4.5 MCG/ACT 2 puffs Inhalation Twice a day ActiveSymbicort Active bupivacaine hydrochloride 5 mg/ml injectable solution (14 sources)Amide Local Anestheticbupivacaine (Marcaine) 0.5 % injection bupivacaine HCl 0.5 % (5 mg/mL) injection solution via inject Activecalcium carbonate 500 mg chewable tablet (20 sources)Start: 16-98-7991hjlr 1 tablet by mouth once daily in the morning Calcium Carbonate (Calcium Antacid) 200 mg calcium (500 mg) tablet,chewable Active 200 MG PO Every morning November 01, 2024 12:00am Complies with drug therapyStart: 15-91-6942Bcug mg, Chewed, Daily, Refills(s) 0 Start Date: 09/08/22 Status: Ordered Repeat number: 1Start: 87-61-3657Fhsb mg, Chewed, Daily, Refills(s) 0 Start Date: 09/08/22 Status: OrderedStart: 07-10-2018 End: 84-46-5835aytq 1 tablet by mouth twice dailyCalcium Carbonate (Tums) 200 mg calcium (500 mg) Tablet,Chewable Discontinued 200 MG PO Twice dailyMay 2018 12:00am September 04, 2024 8:22amcalcium carbonate (Os-Yung) 1250 (500 Ca) MG chewable tablet Chew 200 mg in the morning. ActiveTums Activecandesartan cilexetil 4 mg oral tablet (20 sources)Angiotensin 2 Receptor BlockerStart: 94-62-9608bfvz 1 tablet by mouth once daily at bedtimeCandesartan 4 mg tablet Active 4 MG PO Daily at bedtime July 10, 2018 12:00am Complies with drug therapyCandesartan Cilexetil-HCTZ (1 source)Candesartan Cilexetil-HCTZ Activecelecoxib 200 mg oral capsule (20 sources)Nonsteroidal Anti-inflammatory DrugStart: 26-61-5446olfoaeudu (CeleBREX) 200 MG capsule 1 (one) time each day at the same time. 07/05/2022 ActiveStart: 07-10-2018 End: 61-67-9831zzgd 1 capsule by mouth twice daily as needed for painCelecoxib 200 mg capsule Active 200 MG PO Twice daily as needed for pain 60 0 December 02, 2024 10:49am Complies with drug therapyCelecoxib Activecephalexin 500 mg oral capsule (14 sources)Cephalosporin AntibacterialStart: 78-61-4854mkfe 1 capsule by mouth in the morningcephalexin (Keflex) 500 MG capsule Take 500 mg by mouth in the morning and 500 mg before bedtime. 04/07/2022 Activedesonide 0.5 mg/ml topical cream (14 sources)CorticosteroidStart: 41-79-7487gtrgohvq (DesOwen) 0.05 % cream APPLY SMALL AMOUNT 3 TIMES A DAY NEEDED 07/11/2022 Activedigoxin 0.125 mg oral tablet (20 sources)Cardiac GlycosideStart: 20-85-9386ndqw 1 tablet by mouth once daily digoxin 125 mcg (0.125 mg) Tab See Instructions, TAKE 1 TABLET BY MOUTH EVERY DAY, # 90 tab(s), Refills(s) 3, Pharmacy: [id number], 147, cm, 02/13/24 10:53:00 EST, Height/Length Dosing, 59.9, kg, 02/13/24 10:53:00 EST, Weight Dosing Start Date: 04/01/24 Status: Ordered Quantity: 90.0 Unit: tab(s) Repeat number: 1Start: 03-21-2023 End: 26-47-4431ytss 1 tablet by mouth once dailydigoxin 125 mcg (0.125 mg) Tab 125 mcg = 1 tab(s), Oral, Daily, X 90 day(s), # 90 tab(s), Refills(s) 3, Pharmacy: [facility]/pharmacy #[id number], 148, cm, 03/21/23 8:51:00 EST, Height/Length Dosing, 64, kg, 03/21/23 8:51:00 EST, Weight Dosing Start Date: 03/21/23 Stop Date: 03/15/24 Status: OrderedStart: 16-22-8887etnb 1 tablet by mouth once daily digoxin 125 mcg (0.125 mg) Tab 125 mcg = 1 tab(s), Oral, Daily, Refills(s) 0 Start Date: 07/05/22 Status: OrderedStart: 06-88-0268mrvw 1 tablet by mouth once daily in the morningDigoxin 125 mcg tablet Active 125 MCG PO Every morning July 10, 2018 12:00am Complies with drug therapyDigoxin Activefamotidine 40 mg oral tablet (14 sources)Histamine-2 Receptor AntagonistStart: 45-12-2823zgevfpgdvj (Pepcid) 40 MG tablet Take 40 mg by mouth. 07/05/2022 ActiveICaps AREDS 2 (3 sources)Start: 45-42-2363CBnqt AREDS 2 See Instructions, Refill(s) 0, take 2 orally daily Start Date: 07/05/22 Status: Orderedlevothyroxine sodium 0.05 mg oral tablet (20 sources)l-ThyroxineStart: 87-92-2155pczi 1 tablet by mouth once daily levothyroxine 50 mcg (0.05 mg) Tab See Instructions, TAKE 1 TABLET BY MOUTH EVERY DAY, # 90 tab(s),Refills(s) 1, [id number] 147, cm, 05/20/24 10:52:00 EDT, Height/Length Dosing, 58.5, kg, 05/20/24 10:52:00 EDT, Weight Dosing Start Date: 05/20/24 Status: Ordered Quantity: 90.0 Unit: tab(s) Repeat number: 2Start: 74-03-8029wzdv 1 tablet by mouth once dailylevothyroxine 50 mcg (0.05 mg) Tab See Instructions, TAKE 1 TABLET BY MOUTH EVERY DAY, # 90 tab(s),Refills(s) 1, Pharmacy: [id number], 147, cm, 09/19/23 10:15:00 EDT, Height/Length Dosing, 61.8, kg, 09/19/23 10:15:00 EDT, Weight Dosing Start Date: 10/18/23 Status: OrderedStart: 83-03-8352oqvx 1 tablet by mouth once daily levothyroxine 50 mcg (0.05 mg) Tab 50 mcg = 1 tab(s), Oral, Daily, # 90 tab(s), Refills(s) 1, [id number], 148, cm, 03/21/23 8:51:00 EST, Height/Length Dosing, 64, kg, 03/21/23 8:51:00 EST, Weight Dosing Start Date: 03/21/23 Status: OrderedStart: 66-21-4011ekqh 1 tablet by mouth once daily levothyroxine 50 mcg (0.05 mg) Tab 50 mcg = 1 tab(s), Oral, Daily, Refills(s) 0 Start Date: 07/05/22 Status: OrderedStart: 28-91-7902swrh 1 tablet by mouth once daily in the morningLevothyroxine 50 mcg tablet Active 50 MCG PO Every morning July 10, 2018 12:00am Complies with drugtherapyLevothyroxine Sodium Active meclizine hydrochloride 25 mg oral tablet (17 sources)AntiemeticStart: 75-41-6561jrue 1 tablet by mouth three times daily as needed for dizzinessMeclizine 25 mg tablet Active 25 MG PO Three times daily as needed for dizziness September 04, 2024 12:00am Complies with drug therapyStart: 82-59-8293zcfh 1 tablet by mouth every eight hours as needed for dizziness meclizine 25 mg Tab 25 mg = 1 tab(s), Oral, q8hr, as needed for dizziness, # 30 tab(s), Refills(s) 0, Pharmacy: [facility]/pharmacy #[id number], 147.8, cm, 07/26/22 15:28:00 EDT, Height/Length Dosing, 63.6, kg, 07/26/22 15:28:00 EDT, Weight Dosing Start Date: 08/25/22 Status: Ordered Quantity: 30.0 Unit: tab(s) Repeat number: 1 methylPREDNISolone (14 sources)CorticosteroidStart: 23-25-8942krajciIZTGPXAdyyqg (Medrol Dospak) 4 MG tablets TAKE 6 TABLETS ON DAY 1 DIRECTED ON PACKAGE AND DECREASE BY 1 TAB EACH DAY FOR A TOTAL OF 6 DAYS 09/16/2022 Hobukx77 hr metoprolol succinate 25 mg extended release oral tablet (20 sources)beta-Adrenergic BlockerStart: 45-21-9151yinqckabke succinate XL (Toprol-XL) 25 MG 24 hr tablet metoprolol succinate ER 25 mg tablet,extended release 24 hr 07/05/2022 ActiveStart: 07-10-2018 End: 98-76-3819bmzb 1 tablet by mouth once daily in the eveningMetoprolol Succinate 25 mg tablet extended release 24 hr Active 25 MG PO Every evening July 10, 2018 12:00am Complies with drug therapymetoprolol tartrate (Lopressor) 25 MG tablet 1 (one) time each day at the same time. ActiveMetoprolol Tartrate Not-Takingmontelukast 10 mg oral tablet (20 sources)Leukotriene Receptor AntagonistStart: 57-77-9280rdvy 1 tablet by mouth once daily in the morningMontelukast 10 mg tablet Active 10 MG PO Every morning July 10, 2018 12:00am Complies with drug therapyMontelukast Sodium ActiveMultiple Vitamins-Minerals (PreserVision AREDS) tablet (14 sources)Multiple Vitamins-Minerals (PreserVision AREDS) tablet Orally Active prednisoLONE acetate 10 mg/ml ophthalmic suspension (14 sources)CorticosteroidprednisoLONE acetate (Pred-Forte) 1 % ophthalmic suspension prednisolone acetate 1 % eye drops,suspension ActivePreserVision AREDS (2 sources)PreserVision AREDS Activespironolactone 25 mg oral tablet (20 sources)Aldosterone AntagonistStart: 73-87-8745Ioimmquexobpik 25 mg tablet Active 12.5 MG PO Every morning 45 90 0 December 04, 2024 11:23am Complies with drug therapyStart: 48-94-7323hlaxdvdtwzhogg (Aldactone) 25 MG tablet every 12 (twelve) hours. 07/05/2022 ActiveStart: 07-10-2018 End: 43-01-7797yalq 1 tablet by mouth once daily in the morningSpironolactone 25 mg tablet Discontinued 25 MG PO Every morning July 10, 2018 12:00am December 04, 2024 11:24amSpironolactone ActiveTylenol Extra Strength (4 sources)Start: 74-34-4727dyqq 500 mg by mouth twice daily as needed for pain Tylenol Extra Strength 500 mg, Oral, BID, PRN as needed for pain, Refills(s) 0 Start Date: 09/08/22 Status: Ordered Repeat number: 1Start: 21-53-8395mfoa 500 mg by mouth twice daily as needed for painTylenol Extra Strength 500 mg, Oral, BID, PRN as needed for pain, Refills(s) 0 Start Date: 09/08/22 Status: OrderedVit C,O-Fk-Zvyky-Lutein-Zeaxan (Preservision Areds-2) 250-90-40-1 mg capsule (10 sources)Start: 95-35-3997Swj C,M-Fn-Ivzub-Lutein-Zeaxan (Preservision Areds- 2) 250-90-40-1 mg capsule Active 1 TAB PO Twice daily November 01, 2024 12:00am Complies with drug therapyStart: 11-01-2024 Completed/Discontinued Medications MedicationDrug Class(es)DatesSig (Normalized)Sig (Original)acetaminophen 325 mg / HYDROcodone bitartrate 5 mg oral tablet (12 sources)Opioid AgonistStart: 09-05-2024 End: 44-26-0322yvzy 1 tablet by mouth three times daily as needed for pain Hydrocodone-Acetaminophen 5-325 mg tablet Discontinued 1 TAB PO Three times daily as needed for pain 6 2 0 September 05, 2024 November 01, 2024 10:44am Radiculopathy Radiculopathy, site unspecifiedAreds 2 1 tab (16 sources)Start: 07-10-2018 End: 42-78-7415tybh 2 tablets by mouth twice dailyAreds 2 1 tab Discontinued 2 TAB PO Twice daily July 10, 2018 12:00am July 13, 2018 10:17amStart: 07-10-2018 End: 96-55-8923ncoq 2 tablets by mouth twice dailyAreds 2 1 tab Discontinued 2 TAB PO Twice daily July 09, 2018 11:00pm July 13, 2018 9:17amcefadroxil 500 mg oral capsule (9 sources)Cephalosporin AntibacterialStart: 11-07-2024 End: 83-84-3337xzzu 1 capsule by mouth every twelve hoursCefadroxil 500 mg capsule Discontinued 500 MG PO Q12H 14 7 0 November 07, 2024 12:00am December 02, 2024 10:51am DO NOT RECONCILE UNTIL DOS:11/19/2024 MED TO BED cholecalciferol 1.25 mg oral capsule (13 sources)Vitamin DStart: 09-04-2024 End: 81-12-9167flsu 1 capsule by mouth two times weeklyCholecalciferol (Vitamin D3) 1,250 mcg (50,000 unit) capsule Discontinued 1250 MCG PO Twice a Week September 04, 2024 12:00am November 01, 2024 10:44amdocusate sodium 50 mg / sennosides, fdc 8.6 mg oral tablet (9 sources)Start: 11-07-2024 End: 96-41-8599fyul 2 tablets by mouth once dailySennosides-Docusate Sodium (Senokot-S) 8.6-50 mg tablet Discontinued 2 TAB PO daily 60 30 0 November 07, 2024 12:00am December 02, 2024 10:51am DO NOT RECONCILE UNTIL DOS:11/19/2024 MED TO BEDergocalciferol 1.25 mg oral capsule (10 sources)Provitamin D2 CompoundStart: 09-13-2024 End: 12-19-1557ktlm 1 capsule by mouth every weekErgocalciferol (Vitamin D2) 1,250 mcg (50,000 unit) capsule Discontinued 1250 MCG PO Q7D 8 60 0 September 13, 2024 12:00am November 01, 2024 10:44amondansetron 4 mg oral tablet (9 sources)Serotonin-3 Receptor AntagonistStart: 11-07-2024 End: 64-15-2824tmhm 1 tablet by mouth every eight hours as needed for nausea Ondansetron Hcl 4 mg tablet Discontinued 4 MG PO Q8H as needed for Nausea 9 0 November 07, 2024 12:00am December 04, 2024 11:02am DO NOT RECONCILE UNTIL DOS:11/19/2024 MED TO BEDoxyCODONE hydrochloride 5 mg oral tablet (9 sources)Opioid AgonistStart: 11-07-2024 End: 56-46-5159ffjq 1 tablet by mouth every four hours as needed for pain Oxycodone 5 mg tablet Discontinued 5 MG PO Q4H as needed for Pain 42 7 0 November 07, 2024 December 02, 2024 10:51am Primary osteoarthritis of right hip Unilateral primary osteoarthritis, right hip DO NOT RECONCILE UNTIL DOS:11/19/2024 MED TO BEDpantoprazole 20 mg delayed release oral tablet (14 sources)Proton Pump InhibitorStart: 11-07-2024 End: 57-71-1221atih 1 tablet by mouth once dailyPantoprazole (Protonix) 20 mg tablet,delayed release (DR/EC) Discontinued 20 MG PO daily 35 35 0 December 02, 2024 10:49am December 04, 2024 11:03am DO NOT RECONCILE UNTIL DOS:11/19/2024 MED TO BEDpolyethylene glycol 3350 39835 mg powder for oral solution (9 sources)Osmotic LaxativeStart: 11-07-2024 End: 48-68-8237Ulsqylggvnek Glycol 3350 (Miralax) 17 gram/dose powder Discontinued 17 GM PO daily 7 7 0 November 07, 2024 12:00am December 02, 2024 10:51am 1 packed mixed with 8 ounces of fluid. DO NOT RECONCILE UNTIL DOS:11/19/2024 MED TO BEDpredniSONE 10 mg oral tablet (20 sources)Start: 11-07-2024 End: 40-56-5536hauu 1 tablet by mouth once dailyPrednisone 10 mg tablet Discontinued 10 MG PO daily 10 10 0 November 07, 2024 12:00am November 19, 2024 12:51pm DO NOT RECONCILE UNTIL DOS:11/19/2024 MED TO BEDStart: 09-05-2024 End: 97-24-4213dnjx 1 tablet by mouth once dailyPrednisone 20 mg tablet Discontinued 20 MG PO Daily 5 5 0 September 05, 2024 12:00am November 01, 2024 1 0:44amtraMADol hydrochloride 50 mg oral tablet (9 sources)Opioid AgonistStart: 11-07-2024 End: 94-15-7715qoiw 1 tablet by mouth every six hours as needed for painTramadol 50 mg tablet Discontinued 50 MG PO Q6H as needed for Pain 40 7 0 November 07, 2024 12:00am December 02, 2024 10:51am Primary osteoarthritis of right hip Unilateral primary osteoarthritis, right hip DO NOT RECONCILE UNTIL DOS:11/19/2024 MED TO BEDVit C,U-Wc-Nrfmz-Lutein-Zeaxan (Preservision Areds-2) 813-741-09-1 qv-xbmx-yw-mg Capsule (16 sources)Start: 07-13-2018 End: 83-71-7185vgiz 1 capsule by mouth twice dailyVit C,P-Mk-Qmtik-Lutein-Zeaxan (Preservision Areds-2) 616-716-07-1 ox-fuse-yz-mg Capsule Discontinued 2 TAB PO Twice daily July 13, 2018 12:00am September 04, 2024 8:22amStart: 86-48-3954bmyl 1 capsule by mouth twice dailyVit C,L-Fb-Qwxmm-Lutein-Zeaxan (Preservision Areds- 2) 363-633-93-1 th-ggcm-kr-mg Capsule Active 2 TAB PO Twice daily July 13, 2018 12:00amStart: 59-16-4004jjvc 1 capsule by mouth twice dailyVit C,L-Vm-Ijqdv-Lutein-Zeaxan (Preservision Areds-2) 520-980-91-1 rr-lona-pw-mg Capsule Active 2 TAB PO Twice daily July 12, 2018 11:00pm Problems Active Problems Problem ClassificationProblemDateDocumented DateEpisodic/ChronicAbdominal pain (6 sources)Right upper quadrant pain; Translations: [Right upper quadrant pain] EpisodicAcquired foot deformities (4 sources)Djtj-vrmr73-72tmil94-50-1511LbbpgjdzSxvizprqcmtifr/social admission (19 sources)Bereavement; Translations: [Other reduced mobility]Onset: 11-19-2024 25-60-3210CvptdhsuYcbodv (4 sources)Vqegja56-93-8905IryhtaeFvxbxh; other and unspecified primary (3 sources)Squamous cell carcinoma in situOnset: hronic Cardiac dysrhythmias (20 sources)Irregular heart beat; Translations: [Cardiac arrhythmia, unspecified]89-88-5463DoaormaKjjfudwbba associated with dizziness or vertigo (5 sources)Benign paroxysmal vertigo, unspecified ear; Translations: [Labyrinthitis]Onset: 58-51-1492RkimdfmkJkhgnkoava disorders (20 sources)Left bundle branch block; Translations: [Left bundle-branch block, unspecified]45-60-3713EibaknxItbgcllqj of lipid metabolism (4 sources)Ygifpmqnunhnfvzvpugq78-25-3041WvacqlvFlzgbbcberhpnb and diverticulitis (4 sources)Diverticular ahftnoa01-50-4882MskxqinNpxnilzpo hypertension (20 sources)Hypertensive disorder; Translations: [Essential hypertension]Onset: 710756-80-4115WkydjhjKndtd valve disorders (6 sources)Nonrheumatic aortic (valve) stenosis; Translations: [Rheumatic disorders of both mitral and aortic valves]Onset: 77-22-6368MkcablgSmswj valve disorders (4 sources)Heart gjoays86-38-7593TywrupinLpxcrjo on above:bicuspid aortic valve Hypertension with complications and secondary hypertension (2 sources)Hypertensive heart disease without heart failure; Translations: [Hypertensive heart disease withoutheart failure]Onset: 98-95-9209Zaqohjx Inflammation; infection of eye (except that caused by tuberculosis or sexually transmitteddisease) (18 sources)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; Translations: [Unspecified blepharitis right eye, upper and lower eyelids]Onset: 564750-75-6288DeenuzdzXzwdpogtp of unspecified nature or uncertain behavior (4 sources)Neoplasm of uncertain behavior of skin; Translations: [Neoplasm of uncertain behavior of skin]57-35-0982ArrlbnejRgavskpmpuuxnw (20 sources)Osteoarthritis of hip; Translations: [Osteoarthritis of right hip joint]Onset: 348410-28-0962TpfdmdjDrrazwwqmfzw (2 sources)Osteoporosis; Translations: [Age-related osteoporosis without current pathological fracture]Onset: 495529-24-6750OlchzpuSyrvw acquired deformities (1 source)Deformity of gkwi37-76-0312PuhdodfoOeikj aftercare (6 sources)Patient encounter status; Translations: [Aftercare following joint replacement surgery]79-59-8539EcmjiqqOiyyj aftercare (1 source)Aftercare following joint replacement surgery; Translations: [Aftercare following joint replacementsurgery]Onset: 78-58-7022GxyrbnbFaezr bone disease and musculoskeletal deformities (3 sources)Ukfznobhci17-17-2036ZsyzhyryIcubm ALLEY TENDER infection and poliomyelitis (20 sources)Post poliomyelitis syndrome; 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] Onset: 796832-07-6542CfmrwdtGyjsg ALLEY TENDER infection and poliomyelitis (20 sources)H/O: poliomyelitis; Translations: [Personal history of poliomyelitis]Onset: 503812-24-0923DfeodaulTwqyg connective tissue disease (20 sources)History of total hip arthroplasty; Translations: [Presence of right artificial hip joint]62-52-7479EudkswxLavad connective tissue disease (1 source)Presence of right artificial hip joint; Translations: [Presence of right artificial hip joint]Onset: 53-83-1323FygmgvpLkdet connective tissue disease (2 sources)Pain of toe of right foot; Translations: [Pain in right toe(s)] 86-19-4813GodoeuyfNvsfb eye disorders (18 sources)Dry eyes; Translations: [Dry eye syndrome of bilateral lacrimal glands]Onset: 593526-05-2199XcoeibnnGxphk gastrointestinal disorders (18 sources)Dysphagia; Translations: [Dysphagia, unspecified]70-85-4074Yzftdbkr Comment on above:Problem List clean-up per request of Phys. EHR CmteOther hereditary and degenerative nervous system conditions (4 sources)Restless ybxt30-72-6595UofguvtOwtux liver diseases (20 sources)Steatosis of liver; Translations: [Fatty (change of) liver, not elsewhere classified]43-77-0004HroejevWilhn liver diseases (5 sources)Fatty (change of) liver, not elsewhere classified; Translations: [Other chronic nonalcoholic liver disease]Onset: 29-68-8064OkfnrtiFpnbp nervous system disorders (1 source)Disorder of the autonomic nervous system, unspecified; Translations: [DISORDER AUTONOMIC NERVOUS SYS UNS]Onset: 53-04-1821LsxgkfgLkbxe nervous system disorders (1 source)Other disorders of autonomic nervous system; Translations: [OTH DISORDERS AUTONOMIC NERVOUS SYS]Onset: 32-42-9990BpljzonAtdng nervous system disorders (2 sources)Other chronic pain; Translations: [Other chronic pain]Onset: 72-65-0323ZtbtgpkRgxxf non-traumatic joint disorders (20 sources)Hip pain; Translations: [Pain in right hip]94-69-7554PkatkscqBpqsv non-traumatic joint disorders (2 sources)Pain in left shoulder; Translations: [Pain in left shoulder]Onset: 67-35-4798VvryloonWfzzs non-traumatic joint disorders (3 sources)Pain in right hip; Translations: [Pain in right hip]Onset: 07-24-2024 EpisodicOther nutritional; endocrine; and metabolic disorders (3 sources)Twodnicsqb16-75-0028AiiwjbhrIupay screening for suspected conditions (not mental disorders or infectious disease) (1 source)Abnormal electrocardiogram [ECG] [EKG]; Translations: [Abnormal electrocardiogram [ECG] [EKG]]Onset: 88-03-1400CzgjlwviXjclz skin disorders (4 sources)Nail dystrophy; Translations: [NAIL DYSTROPHY]Onset: 06-08-2022 EpisodicOther upper respiratory disease (1 source)Allergic qmiudizu18-70-1997LptjevnHvtsp upper respiratory disease (3 sources)Allergic rhinitis due to pollen; Translations: [Allergic rhinitis due to pollen]66-21-6886WbgmwgtXtlgz upper respiratory disease (2 sources)Nasal nakimogiqe52-59-0237RjykxzidJztpd upper respiratory infections (1 source)Acute upper respiratory hqzayzamq79-03-5731NmiolwroEhdm-; endo-; and myocarditis; cardiomyopathy (except that caused by tuberculosis or sexually transmitted disease) (1 source)Cardiomyopathy, unspecified; Translations: [Cardiomyopathy, unspecified]Onset: 74-65-5873HgnfujaFdkjxfteyt and visceral atherosclerosis (1 source)Peripheral vascular disease, unspecified; Translations: [PERIPHERAL VASCULAR DISEASE UNS]Onset: 37-22-2949EturpfvMrpnokfj codes; unclassified (1 source)Other specified health status; Translations: [Other specified health status]Onset: 60-75-1212ObslpqmpMevgrro detachments; defects; vascular occlusion; and retinopathy (18 sources)Nonexudative age-related macular degeneration; Translations: [Nonexudative age-related macular degeneration, bilateral, advanced atrophic with subfoveal involvement]Onset: 625877-12-5869LsslkrfWuulzxcpoks; intervertebral disc disorders; other back problems (12 sources)Cervical spondylosis; Translations: [Lumbar spondylosis]07-05-2022 ChronicThyroid disorders (4 sources)Qoiikbmzglvlfp66-20-2728PwnhecuTnukvhaavsxy (3 sources)COUGH, UNSPECIFIED; Translations: [COUGH, UNSPECIFIED]Onset: 86-58-2280Dnwnexavmkzc (3 sources)Pain of knee zoeafb75-14-7580Gpqeelkrdhnz (3 sources)Pain of right shoulder omonop24-71-9918Pasbmkeuhjzi (10 sources)Follow up with rehab physician as neededUnclassified (10 sources)Call to schedule follow up appointment with PCP after dischargeViral infection (4 sources)Verruca plantaris; Translations: [Plantar wart]23-31-9727Gacztlbw Viral infection (1 source)COVID-19; Translations: [COVID-19]Onset: 09-10-2021 Past or Other Problems Problem ClassificationProblemDateDocumented DateEpisodic/ChronicMycoses (2 sources)Tinea unguium; Translations: [Dermatophytosis, unspecified]Onset: 62-41-7638TuctyeaeJgruh aftercare (2 sources)Encounter for therapeutic drug level monitoring; Translations: [Encounter for therapeutic drug level monitoring]Onset: 36-02-7902OkkqgfcpShilo aftercare (3 sources)Other [place] [facility] [place] therapy; Translations: [Other [place] [facility] [place] ([place] drug therapy]Onset: 23-10-7043MngffnlgQvwzr circulatory disease (4 sources)Other specified symptoms and signs involving the circulatory and respiratory systems; Translations:[OTH SPEC SX SIGNS INVLV CIRC RS]Onset: 09-49-2626VughqnyjJtplg non-traumatic joint disorders (3 sources)Pain in right shoulder; Translations: [Pain in right shoulder]Onset: 29-06-9517GzquhfrqLuegj skin disorders (1 source)Onychogryphosis; 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]Onset: 09-02-2021 EpisodicSpondylosis; intervertebral disc disorders; other back problems (15 sources)Sciatica; Translations: [Nerve root disorder]Onset: 09-05-2024 81-72-3543SetelxhxIxkbadeaglhh (1 source)COUGH, UNSPECIFIED; Translations: [COUGH, UNSPECIFIED]Onset: 09-07-2021 Results Test NameValueInterpretationReference RangeFacilityAmbulatory Visit Summaryon 50-28-9058Tcgxpxxwdq Visit SummaryAmbulatory Visit Summary JASONUNA :1940 Visit Date:01/16/2025 Ambulatory Visit Instructions Your Diagnosis BMI 26.0-26.9,adult Overweight (BMI 25.0-29.9) Your Care Team Attending Physician - Stew Cottrell DO Primary Care Physician - Marlee Martinez This Is Your Medications List acetaminophen (Tylenol Extra Strength) albuterol (Albuterol (Eqv-ProAir HFA) 90 mcg/inh inhalation aerosol) aspirin budesonide-formoterol (Symbicort) calcium carbonate (Tums) candesartan (candesartan 4 mg Tab) digoxin (digoxin 125 mcg (0.125 mg) Tab) ergocalciferol (Vitamin D 50,000 intl units (1.25 mg) oral capsule) levothyroxine (levothyroxine 50 mcg (0.05 mg) Tab) meclizine (meclizine 25 mg Tab) metoprolol (metoprolol succinate 25 mg ER Tab) montelukast (montelukast 10 mg Tab) predniSONE (predniSONE 10 mg Tab) spironolactone (spironolactone 25 mg Tab) valacyclovir (valacyclovir 1 g Tab) Procedures Performed Hip replacement (11/29/2024), Cataracts, Cholecystectomy, Shoulder replacement. Discharge Vitals Temperature (Temporal Artery) 36.3 ???C Heart Rate (Peripheral) 87 Respiratory Rate 18 Blood Pressure 128/80 Height 147.0 cm Height 58 in Weight 56.6 kg Weight 124.781 lb BMI 26.19 What to do next Scheduled Follow-Up Appointments Monday 3:40 PM EST With: Stew Cottrell DO Where: [place] [address]- Monday 1:40 PM EST With: Stew Cottrell DO Where: [place] [id number] Monday2025 11:00 AM EDT With: Where: [place] [id number]- You Need to Schedule the Following Appointments Follow Up with Stew Cottrell DO, FAM, PED When: In 1 week Where: Medications What How Much When Why Instructions Unchanged acetaminophen (Tylenol Extra Strength) 500 Milligram By Mouth 2 times a day as needed foras needed for pain Unchanged albuterol (Albuterol (Eqv-ProAir HFA) 90 mcg/ inh inhalation aerosol) See instructions TAKE 2 PUFFS EVERY 4 HOURS NEEDED Unchanged aspirin 81 Milligram By Mouth Every day Unchanged budesonide-formoterol (Symbicort) 80/4.5 Inhalation 2 times a day Unchanged calcium carbonate (Tums) Chewed Every day Unchanged candesartan (candesartan 4 mg Tab) See instructions TAKE 1 TABLET BY MOUTH EVERY DAY Unchanged digoxin (digoxin 125 mcg (0.125 mg) Tab) See instructions TAKE 1 TABLET BY MOUTH EVERY DAY Unchanged ergocalciferol (Vitamin D 50,000 intl units (1.25 mg) oral capsule) 1 Capsules By Mouth 2times a week Pre-op exam Vitamin D deficiency Unchanged levothyroxine (levothyroxine 50 mcg (0.05 mg) Tab) See instructions TAKE 1 TABLET BY MOUTH EVERY DAY Unchanged meclizine (meclizine 25 mg Tab) 1 Tablets By Mouth Every 8 hours as needed for dizziness Unchanged metoprolol (metoprolol succinate 25 mg ER Tab) 1 Tablets By Mouth At bedtime Duration: 90Days Unchanged montelukast (montelukast 10 mg Tab) See instructions TAKE 1 TABLET BY MOUTH EVERY DAY Unchanged predniSONE (predniSONE 10 mg Tab) 1 Tablets By Mouth Every day BMI 26.0-26.9,adult Overweight (BMI 25.0-29.9) Duration: 7 Days Unchanged spironolactone (spironolactone 25 mg Tab) See instructions TAKE 1 TABLET BY MOUTH EVERY DAY Unchanged valacyclovir (valacyclovir 1 g Tab) 1 Tablets By Mouth 3 times a day Herpes zoster Shingles Duration: 7 Days Allergies Augmentin (Unknown) Diflucan (Unknown) sulfa drugs (Unknown) traMADol (Unknown) Problems Ongoing - Any problem that you are currently receiving treatment for. BMI 26.0-26.9,adult Cervical spondylosis Diverticular disease Foot deformity Foot drop Hypercholesterolemia Hypothyroidism Knee pain, left Left atrial enlargement Left bundle branch block Left sciatic nerve pain Lumbar spondylosis Macular degeneration, bilateral Moderate persistent asthma Murmur Non-seasonal allergic rhinitis due to pollen Osteoarthritis of hip Osteopenia Overweight (BMI 25.0-29.9) Post-poliomyelitis muscular atrophy Primary hypertension Restless legs syndrome Right upper quadrant pain Shoulder pain, right Squamous cell carcinoma in situ Steatosis of liver Thoracic spondylosis Vitamin D deficiency Historical - Any problem that you are no longer receiving treatment for. Asthma Right bundle branch block Patient Survey You [...] our secure patient portal. If you are n (more content not included)...[facility] Summaryon 09-89-7707Telcfgewxd Visit SummaryAmbulatory Visit Summary UNA GOMEZ :1940 Visit Date:01/10/2025 Ambulatory Visit Instructions Your Diagnosis BMI 26.0-26.9,adult Overweight (BMI 25.0-29.9) Your Care Team Attending Physician - Stew Cottrell DO Primary Care Physician - Marlee Martinez This Is Your Medications List acetaminophen (Tylenol Extra Strength) albuterol (Albuterol (Eqv-ProAir HFA) 90 mcg/inh inhalation aerosol) aspirin budesonide-formoterol (Symbicort) calcium carbonate (Tums) candesartan (candesartan 4 mg Tab) digoxin (digoxin 125 mcg (0.125 mg) Tab) ergocalciferol (Vitamin D 50,000 intl units (1.25 mg) oral capsule) levothyroxine (levothyroxine 50 mcg (0.05 mg) Tab) meclizine (meclizine 25 mg Tab) metoprolol (metoprolol succinate 25 mg ER Tab) montelukast (montelukast 10 mg Tab) spironolactone (spironolactone 25 mg Tab) Procedures Performed Hip replacement (11/29/2024), Cataracts, Cholecystectomy, Shoulder replacement. Discharge Vitals Temperature (Temporal Artery) 36.5 ???C Heart Rate (Peripheral) 89 Respiratory Rate 18 Blood Pressure 124/78 Height 147 cm Height 58 in Weight 56.6 kg Weight 124.781 lb BMI 26.19 What to do next Scheduled Follow-Up Appointments Monday 1:40 PM EST With: Stew Cottrell DO [facility] [address] [place] [address]- Monday2025 11:00 AM EDT With: Where: [facility] [address] [address]- You Need to Schedule the Following Appointments Follow Up with Stew Cottrell DO, FAM, PED When: In 1 week Where: Medications What How Much When Why Instructions Unchanged acetaminophen (Tylenol Extra Strength) 500 Milligram By Mouth 2 times a day as needed foras needed for pain Unchanged albuterol (Albuterol (Eqv-ProAir HFA) 90 mcg/ inh inhalation aerosol) See instructions TAKE 2 PUFFS EVERY 4 HOURS NEEDED Unchanged aspirin 81 Milligram By Mouth Every day Unchanged budesonide-formoterol (Symbicort) 80/4.5 Inhalation 2 times a day Unchanged calcium carbonate (Tums) Chewed Every day Unchanged candesartan (candesartan 4 mg Tab) See instructions TAKE 1 TABLET BY MOUTH EVERY DAY Unchanged digoxin (digoxin 125 mcg (0.125 mg) Tab) See instructions TAKE 1 TABLET BY MOUTH EVERY DAY Unchanged ergocalciferol (Vitamin D 50,000 intl units (1.25 mg) oral capsule) 1 Capsules By Mouth 2times a week Pre-op exam Vitamin D deficiency Unchanged levothyroxine (levothyroxine 50 mcg (0.05 mg) Tab) See instructions TAKE 1 TABLET BY MOUTH EVERY DAY Unchanged meclizine (meclizine 25 mg Tab) 1 Tablets By Mouth Every 8 hours as needed for dizziness Unchanged metoprolol (metoprolol succinate 25 mg ER Tab) 1 Tablets By Mouth At bedtime Duration: 90Days Unchanged montelukast (montelukast 10 mg Tab) See instructions TAKE 1 TABLET BY MOUTH EVERY DAY Unchanged spironolactone (spironolactone 25 mg Tab) See instructions TAKE 1 TABLET BY MOUTH EVERY DAY Allergies Augmentin (Unknown) Diflucan (Unknown) sulfa drugs (Unknown) traMADol (Unknown) Problems Ongoing - Any problem that you are currently receiving treatment for. BMI 26.0-26.9,adult Cervical spondylosis Diverticular disease Foot deformity Foot drop Hypercholesterolemia Hypothyroidism Knee pain, left Left atrial enlargement Left bundle branch block Left sciatic nerve pain Lumbar spondylosis Macular degeneration, bilateral Moderate persistent asthma Murmur Non-seasonal allergic rhinitis due to pollen Osteoarthritis of hip Osteopenia Overweight (BMI 25.0-29.9) Post-poliomyelitis muscular atrophy Primary hypertension Restless legs syndrome Right upper quadrant pain Shoulder pain, right Squamous cell carcinoma in situ Steatosis of liver Thoracic spondylosis Vitamin D deficiency Historical - Any problem that you are no longer receiving treatment for. Asthma Right bundle branch block Patient Survey You [...] signed up for this yet, please contact [employer] at [phone] to get signed up today. Language Information Language assistance services are available as needed. [facility] Medicine Office/Clinic Noteon [phone] [facility] Office/Clinic NoteFaclover hill hospital [facility] Office/Clinic Note HPI Staff Pt is presenting for acute visit, still in pain, blisters on legs EL started tylenol. Still having pain in both legs. entire right leg has broke out with blisters that are red and itchy and hurt if she scratches them History of Present Illness Patient is an 84-year-old female with past medical history of aortic valve stenosis, left bundle branch block, hypertension, hyperlipidemia, bilateral age- related macular degeneration (follows with Dr. 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 Patient was here to establish care 2 days ago. At that time, we discussed that patient should take Tylenol instead of Celebrex for right hip pain due to recent (Nov 2024) surgery. Celebrex was not working for the patient. Since then, patient reported increase in stinging pain and an emergence of a rash on her right leg.No fever or chills. Review of Systems PHQ Score Initial Depression Screen Score: 0 SCORE Pertinent review of systems is addressed in the HPI. Physical Exam Vitals & Measurements T: 36.5 ???C(Temporal Artery) HR: 89(Peripheral) RR: 18 BP: 124/78 SpO2: 98% HT: 147 cm HT: 58 in WT: 124.781 lb WT: 56.6 kg BMI: 26.19 General: Alert and oriented, in no acute distress HEENT: - Normocephalic, atraumatic - EOMI, conjunctiva WNL Neurologic: Grossly intact, normal gait Skin: Right-lower extremity erythemic vesicular rash spanning from buttock to ankle Psych: Normal mood, normal affect Assessment/Plan 1. Shingles, (B02.9: Zoster without complications)Herpes zoster Start valacyclovir 1 gram TID and prednisone 10 mg daily for 7 days, possible side effects discussed. Recommended continued use of Tylenol as needed. 1 week follow up to assess. Ordered: valacyclovir, 1 gm = 1 tab(s), Oral, TID, X 7 day(s), # 21 tab(s), Refills(s) 0, Pharmacy: [facility]/pharmacy #[id number], 147, cm, 01/10/25 14:43:00 EST, Height/Length Dosing, 56.6, kg, 01/10/25 14:43:00 EST, Weight Dosing Orders: predniSONE, 10 mg = 1 tab(s), Oral, Daily, X 7 day(s), # 7 tab(s), Refills(s) 0, Pharmacy: [facility]/pharmacy #[id number], 147, cm, 01/10/25 14:43:00 EST, Height/Length Dosing, 56.6, kg, 01/10/25 14:43:00 EST, Weight Dosing Follow-up With When Contact Information tSew Cottrell DO, FAM, PED In 1 week Additional Instructions: Problem List/Past Medical History Ongoing BMI 26.0-26.9,adult Cervical spondylosis Diverticular disease Foot deformity Foot drop Hypercholesterolemia Hypothyroidism Knee pain, left Left atrial enlargement Left bundle branch block Left sciatic nerve pain Lumbar spondylosis Macular degeneration, bilateral Moderate persistent asthma Murmur Non-seasonal allergic rhinitis due to pollen Osteoarthritis of hip Osteopenia Overweight (BMI 25.0-29.9) Post-poliomyelitis muscular atrophy Primary hypertension Restless legs syndrome Right upper quadrant pain Shoulder pain, right Squamous cell carcinoma in situ Steatosis of liver Thoracic spondylosis Vitamin D deficiency Historical Asthma Right bundle branch block Procedure/Surgical History Hip replacement (11/29/2024), Cataracts, Cholecystectomy, Shoulder replacement. Medications Albuterol (Eqv-ProAir HFA) 90 mcg/inh inhalation aerosol, See Instructions aspirin, 81 mg, Oral, Daily candesartan 4 mg Tab, See Instructions, 4 refills digoxin 125 mcg (0.125 mg) Tab, See Instructions levothyroxine 50 mcg (0.05 mg) Tab, See Instructions meclizine 25 mg Tab, 25 mg= 1 tab(s), Oral, q8hr metoprolol succinate 25 mg ER Tab, 25 mg= 1 tab(s), Oral, Bedtime, 3 refills montelukast 10 mg Tab, See Instructions predniSONE 10 mg Tab, 10 mg= 1 tab(s), Oral, Daily spironolactone 25 mg Tab, See Instructions, 4 refills Symbicort, 80/4.5, Inhalation, BID Tums, Chewed, Daily Tylenol Extra Strength, 500 mg, Oral, BID, PRN valacyclovir 1 g Tab, 1 gm= 1 tab(s), Oral, TID Vitamin D 50,000 intl units (1.25 mg) oral capsule, 37646 International_Unit= 1 cap(s), Oral, 2x/Wk, 3 refills Allergies Augmentin (Unknown) Diflucan (Unknown) sulfa drugs (Unknown) traMADol (Unknown) Social History Alcohol - Denies Alcohol Use, 09/14/2023 Never, 09/09/2024 Substance Abuse - Denies Substance Abuse, 09/14/2023 Never, 09/09/2024 Tobacco - Denies Tobacco Use, 09/14/2023 Never (less than 100 in lifetime) Tobacco Use:. Yes., 01/10/2025 Family History Acute myocardial infarction: Grandparent and Grandparent. Immunizations Vaccine Date Status Comments influenza virus vaccine, inactivated 01/23/2024 Recorded influenza virus vaccine, inactivated 12/14/2022 Recorded SARS-CoV-2 (COVID-19) [id number] 02/10/2022 Recorded influenza (more content not included)...[facility] CenterComment on above:Result Comment: Electronically Signed By: Stew Cottrell DO\.br\Date and Time Signed: 01/10/25 15:59 [facility] Medicine Office/Clinic Noteon [id number] HPI Staff Pt is presenting to establish care Establish Care: History: Any previous diagnosis: none 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 Had arthritis that went her legs this summer andsince weather has gotten colder they are hurting more. No pain after hip surgery but arthritis has gotten worse now. Would like something tot take to relieve the pain Refills: none Had hip surgery , Dr. Hernandez in [place]. Has been getting tired more easily since havingthe surgery. History of Present Illness Patient is an 84-year-old female with past medical history of aortic valve stenosis, left bundle branch block, hypertension, hyperlipidemia, bilateral age- related macular degeneration (follows with Dr. 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 Patient's right hip surgery was in November. She continues to report right lower extremity pain. She completed a course of physical therapy with some improvement. She has been taking Celebrex with no improvement in her symptoms. Patient follows with cardiology and GI at [facility]. She also follows with Dr. Louise for her bilateral macular degeneration. Review of Systems PHQ Score Initial Depression Screen Score: 1 SCORE Pertinent review of systems is addressed in the HPI. Physical Exam Vitals & Measurements T: 36.2 ???C(Temporal Artery) HR: 82(Peripheral) RR: 18 BP: 122/76 SpO2: 98% HT: 147.0 cm HT: 58 in WT: 124.781 lb WT: 56.6 kg BMI: 26.19 General: Alert and oriented, in no acute distress HEENT: - Normocephalic, atraumatic - EOMI, conjunctiva WNL Cardiovascular: Regular rate and rhythm, no murmur/rubs/gallops, no lower extremity edema Respiratory: Lungs clear to auscultation BL without wheezing/rales/rhonchi, normal respiratory effort Abdomen: Soft, nontender, nondistended Neurologic: Grossly intact, normal gait Skin: Warm, dry, intact Psych: Normal mood, normal affect Assessment/Plan 1. History of arthroplasty of right hip (Z96.641: Presence of right artificial hip joint) Recommended discontinuation of Celebrex due to being ineffective. Recommended as needed use of extra strength Tylenol. Advised patient continue home stretching/exercise as tolerated and adequate rest. 2. 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 Vitamin D deficiency (E55.9: Vitamin D deficiency, unspecified) Patient recently prescribed 50,000 IUs of vitamin D, patient has been taking this for weeks now. Advised patient to discontinue vitamin D supplementation. Plan to recheck vitamin D level. 4. Macular degeneration, bilateral (H35.30: Unspecified macular degeneration) Follows with Dr. Louise 5. BMI 26.0-26.9,adult (Z68.26: Body mass index [BMI] 26.0-26.9, adult) Patient's current BMI 26.19 kg/m2, while the standard range for people aged 18 years old and older is >=18.5 to <25 kg/m2. Patient's BMI and weight management strategies will continued to be monitored at subsequent visits. 6. Overweight (BMI 25.0-29.9) (E66.3: Overweight) Patient's BMI and weight management strategies will continued to be monitored at subsequent visits. Follow-up With When Contact Information Stew Cottrell DO, ELANA, PED In 1 month Additional Instructions: Problem List/Past Medical History Ongoing BMI 26.0-26.9,adult Cervical spondylosis Diverticular disease Foot deformity Foot drop Hypercholesterolemia Hypothyroidism Knee pain, left Left atrial enlargement Left bundle branch block Left sciatic nerve pain Lumbar spondylosis Macular degeneration, bilateral Moderate persistent asthma Murmur Non-seasonal allergic rhinitis due to pollen Osteoarthritis of hip Osteopenia Overweight (BMI 25.0-29.9) Post-poliomyelitis muscular atrophy Primary hypertension Restless legs syndrome Right upper quadrant pain Shoulder pain, right Squamous cell carcinoma in situ Steatosis of liver Thoracic spondylosis Vitamin D deficiency Historical Asthma Right bundle branch block Procedure/Surgical History Hip replacement (11/29/2024), Cataracts, Cholecystectomy, Shoulder replacement. Medications Albuterol (Eqv-ProAir HFA) 90 mcg/inh inhalation aerosol, See Instructions aspirin, 81 mg, Oral, Daily candesartan 4 mg Tab, See Instructions, 4 refills d (more content not included)...[facility] CenterComment on above:Result Comment: Electronically Signed By: Stew Cottrell DO\.br\Date and Time Signed: 01/09/25 11:29 ESTAmbulatory Visit Summaryon [id number] Visit SummaryAmbulatory Visit Summary UNA GOMEZ :1940 Visit Date:01/08/2025 Ambulatory Visit Instructions Your Diagnosis Left bundle branch block Vitamin D deficiency BMI 26.0-26.9,adult Overweight (BMI 25.0-29.9) Your Care Team Attending Physician - Stew Cottrell DO Primary Care Physician - Marlee Martinez This Is Your Medications List acetaminophen (Tylenol Extra Strength) albuterol (Albuterol (Eqv-ProAir HFA) 90 mcg/inh inhalation aerosol) aspirin budesonide-formoterol (Symbicort) calcium carbonate (Tums) candesartan (candesartan 4 mg Tab) digoxin (digoxin 125 mcg (0.125 mg) Tab) ergocalciferol (Vitamin D 50,000 intl units (1.25 mg) oral capsule) levothyroxine (levothyroxine 50 mcg (0.05 mg) Tab) meclizine (meclizine 25 mg Tab) metoprolol (metoprolol succinate 25 mg ER Tab) montelukast (montelukast 10 mg Tab) spironolactone (spironolactone 25 mg Tab) [Image Removed: STOP]Stop taking these medications methylPREDNISolone (methylPREDNISolone 4 mg tab dosepak) Procedures Performed Hip replacement (11/29/2024), Cataracts, Cholecystectomy, Shoulder replacement. Discharge Vitals Temperature (Temporal Artery) 36.2 ???C Heart Rate (Peripheral) 82 Respiratory Rate 18 Blood Pressure 122/76 Height 147.0 cm Height 58 in Weight 56.6 kg Weight 124.781 lb BMI 26.19 What to do next Scheduled Follow-Up Appointments Monday 1:40 PM EST With: Stew Cottrell DO Where: [address] [address]- Monday2025 11:00 AM EDT With: Where: [address] [phone]- You Need to Schedule the Following Appointments Follow Up with Stew Cottrell DO, ELANA, PED When: In 1 month Where: Medications What How Much When Why Instructions Unchanged acetaminophen (Tylenol Extra Strength) 500 Milligram By Mouth 2 times a day as needed foras needed for pain Unchanged albuterol (Albuterol (Eqv-ProAir HFA) 90 mcg/ inh inhalation aerosol) See instructions TAKE 2 PUFFS EVERY 4 HOURS NEEDED Unchanged aspirin 81 Milligram By Mouth Every day Unchanged budesonide-formoterol (Symbicort) 80/4.5 Inhalation 2 times a day Unchanged calcium carbonate (Tums) Chewed Every day Unchanged candesartan (candesartan 4 mg Tab) See instructions TAKE 1 TABLET BY MOUTH EVERY DAY Unchanged digoxin (digoxin 125 mcg (0.125 mg) Tab) See instructions TAKE 1 TABLET BY MOUTH EVERY DAY Unchanged ergocalciferol (Vitamin D 50,000 intl units (1.25 mg) oral capsule) 1 Capsules By Mouth 2times a week Pre-op exam Vitamin D deficiency Unchanged levothyroxine (levothyroxine 50 mcg (0.05 mg) Tab) See instructions TAKE 1 TABLET BY MOUTH EVERY DAY Unchanged meclizine (meclizine 25 mg Tab) 1 Tablets By Mouth Every 8 hours as needed for dizziness Unchanged metoprolol (metoprolol succinate 25 mg ER Tab) 1 Tablets By Mouth At bedtime Duration: 90Days Unchanged montelukast (montelukast 10 mg Tab) See instructions TAKE 1 TABLET BY MOUTH EVERY DAY Unchanged spironolactone (spironolactone 25 mg Tab) See instructions TAKE 1 TABLET BY MOUTH EVERY DAY What How Much When Comments Stop Taking methylPREDNISolone (methylPREDNISolone 4 mg tab dosepak) 1 Packets By Mouth Once as directed on package labeling Allergies Augmentin (Unknown) Diflucan (Unknown) sulfa drugs (Unknown) traMADol (Unknown) Problems Ongoing - Any problem that you are currently receiving treatment for. Cervical spondylosis Diverticular disease Foot deformity Foot drop Hypercholesterolemia Hypothyroidism Knee pain, left Left atrial enlargement Left bundle branch block Left sciatic nerve pain Lumbar spondylosis Moderate persistent asthma Murmur Non-seasonal allergic rhinitis due to pollen Osteoarthritis of hip Osteopenia Overweight (BMI 25.0-29.9) Post-poliomyelitis muscular atrophy Primary hypertension Restless legs syndrome Right upper quadrant pain Shoulder pain, right Squamous cell carcinoma in situ Steatosis of liver Thoracic spondylosis Vitamin D deficiency Historical - Any problem that you are no longer receiving treatment for. Asthma Right bundle branch block Patient Survey You [...] signed up for this yet, please contact [employer] at [phone] to get signed up today. Language Information Language assistance services are available as needed. [facility] CenterX-ray reportOrdered By: Jamarcus Meneses on [id number] [address] [place] [address] XRay Report Signed Patient: Una Gomez MR#: [id number] : 1940 Acct:[id number] Age/Sex: 84 / F ADM Date: 5 Loc: SOXD Room: Type: [facility] Attending Dr: Fred Hernandez II, MD Copies to: Fred Hernandez MD~ Ordering Provider: Fred Hernandez MD Date of Service: 01/03/25 XR/XR hip RT min 2V(w/wo pelvis)*: Z96.641 - Presenceof right artificialhip joint Single frontal view pelvis and single view right hip INDICATION: Right hip total arthroplasty 11/19/2024 FINDINGS: Postsurgical changes status post right total hip arthroplasty with well aligned osseous components. No periprosthetic lucency or fracture identified. Severe degenerative changes left hip. [id number] degenerative changes sacroiliac joints. Degenerative changes lumbosacral junction. XR/XR hip RT min 2V(w/wo pelvis)* IMPRESSION: Satisfactory right total hip arthroplasty. Severe degenerative changes left hip . Impression dictated by: Jamarcus Meneses M.D. 01/03/2025 6:01 PM Dictation Location: [facility] Transcribed By: [facility] 01/03/251800 Dictated By: Jamarcus Meneses MD 01/03/251756 Signed By: 01/03/251800 [facility] Work Phone: XR hip RT min 2V(w/wo pelvis)*on [id number] hip RT min 2V(w/wo pelvis)*[facility] [address] [place] [address] XRay Report Signed Patient: Una Gomez MR#: [id number] : 1940 Acct:[id number] Age/Sex: 84 / F ADM Date: 01/03/25 Loc: [facility] Room: Type: [facility] Attending Dr: Fred Hernandez II, MD Copies to: Fred Hernandez MD Ordering Provider: Fred Hernandez MD Date of Service: 01/03/25 XR/XR hip RT min 2V(w/wo pelvis)*: Z96.641 - Presence of right artificial hip joint Single frontal view pelvis and single view right hip INDICATION: Right hip total arthroplasty 11/19/2024 FINDINGS: Postsurgical changes status post right total hip arthroplasty with well aligned osseous components. No periprosthetic lucency or fracture identified. Severe degenerative changes left hip. [id number] degenerative changes sacroiliac joints. Degenerative changes lumbosacral junction. XR/XR hip RT min 2V(w/wo pelvis)* IMPRESSION: Satisfactory right total hip arthroplasty. Severe degenerative changes left hip . Impression dictated by: Jamarcus Meneses M.D. 01/03/2025 6:01 PM Dictation Location: [place] [address] Transcribed By: [facility] 01/03/251800 Dictated By: Jamarcus Meneses MD 01/03/251756 Signed By: 01/03/251800[facility] Physician GroupAmbulatory Visit Summaryon [id number] Visit SummaryAmbulatory Visit Summary UNA GOMEZ :1940 Visit Date:12/16/2024 Ambulatory Visit Instructions Your Diagnosis Osteoarthritis of hip Your Care Team Attending Physician - LEA WALLACE CNP Primary Care Physician - Marlee Martinez This [...] Tab) meclizine (meclizine 25 mg Tab) methylPREDNISolone (methylPREDNISolone 4 mg tab dosepak) metoprolol (metoprolol succinate 25 mg ER Tab) montelukast (montelukast 10 mg Tab) spironolactone (spironolactone 25 mg Tab) triamcinolone topical (triamcinolone Top 0.1% Crm 15 gram) Procedures Performed Hip replacement (11/29/2024), Cataracts, Cholecystectomy, Shoulder replacement. Discharge Vitals Heart Rate (Peripheral) 80 Respiratory Rate 16 Blood Pressure 122/60 Height 147 cm Height 58 in Weight 57.3 kg Weight 126.325 lb BMI 26.52 What to do next Scheduled Follow-Up Appointments Monday 1:40 PM EST With: Marlee Martinez Where: [address] [address]- Monday2025 11:00 AM EDT With: Where: [address] [address]- Medications What How Much When Why Instructions Unchanged acetaminophen (Tylenol Extra Strength) 500 Milligram By Mouth 2 times a day as needed foras needed for pain Unchanged albuterol (Albuterol (Eqv-ProAir [...] mg) oral capsule) 1 Capsules By Mouth 2times a week Pre-op exam Vitamin D deficiency Unchanged levothyroxine (levothyroxine 50 mcg (0.05 mg) Tab) See instructions TAKE 1 TABLET BY MOUTH EVERY DAY Unchanged meclizine (meclizine 25 mg Tab) 1 Tablets By Mouth Every 8 hours as needed for dizziness Unchanged methylPREDNISolone (methylPREDNISolone 4 mg tab dosepak) 1 Packets By Mouth Once as directed on package labeling Unchanged metoprolol (metoprolol succinate 25 mg ER Tab) 1 Tablets By Mouth At bedtime Duration: 90Days Unchanged montelukast (montelukast 10 mg Tab) See instructions TAKE 1 TABLET BY MOUTH EVERY DAY Unchanged spironolactone (spironolactone 25 mg Tab) See instructions TAKE 1 TABLET BY MOUTH EVERY DAY Unchanged triamcinolone topical (triamcinolone Top 0.1% Crm 15 gram) 1 Application Topical 3 times a day Rash Allergies Augmentin (Unknown) Diflucan (Unknown) sulfa drugs (Unknown) traMADol (Unknown) Problems Ongoing - Any problem that you are currently receiving treatment for. BMI 27.0-27.9,adult Cervical spondylosis Diverticular disease Foot deformity Foot drop Hypercholesterolemia Hypothyroidism Knee pain, left Left atrial enlargement Left bundle branch block Left sciatic nerve pain Lumbar spondylosis Moderate persistent asthma Murmur Non-seasonal allergic rhinitis due to pollen Nonsmoker Osteoarthritis of hip Osteopenia Overweight (BMI 25.0-29.9) Post-poliomyelitis muscular atrophy Primary hypertension Restless legs syndrome Right upper quadrant pain Shoulder pain, right Squamous cell carcinoma in situ Steatosis of liver Thoracic spondylosis Vitamin D deficiency Historical - Any problem that you are no longer receiving treatment for. Asthma Right bundle branch block Patient Survey You [...] signed up for this yet, please contact [employer] at [phone] to get signed up today. Language Information Language assistance services are available as needed. [facility] Medicine Office/Clinic Noteon [id number] Medicine Office/Cl[facility] NoteFaclover [facility] Medicine Office/Clinic Note HPI Staff TCM: 14 day Hospital: [facility] Admission date: 11/25 Discharge date:12/02 Symptoms the patient presented with: S/p total hip, post polio syndrome, impaired mobility Current concerns: pt states doing real good with the right hip, pt denies any pain today in office pt stated there is still swelling from the right knee down pt stated is going elevation to help control the swelling but that only last for a few hrs pt stats was RXed aspirin for after care for swelling but pt stated she does not feel good if she takes them so she stopped taking the aspirin pt stated that while in the hospital she come down with a cold and congestion pt stated the congestion has resolved but still has drainage in her throat History of Present Illness Patient presents today in f/u to right hip replacement. SHe reports she had her f/u ppointment withortho last week. She is receiving PT across from the hospital. She states her only concern is some slight swelling in the lower RL. This provider explained this is normal after surgery for this to have edema up to 12 weeks post-op. She states she is ambulating well and has no additional concerns. She denies needing medication refills at this visit. Review of Systems PHQ Score Initial Depression Screen Score: 0 SCORE Physical Exam Vitals & Measurements HR: 80(Peripheral) RR: 16 BP: 122/60 SpO2: 97% HT: 147 cm HT: 58 in WT: 57.3 kg WT: 126.325 lb BMI: 26.52 General: alert, no acute distress Skin: warm, dry Head: no trauma, normocephalic Neck: Trachea midline, no adenopathy, no tenderness Eye: normal conjunctiva, sclera clear Cardiovascular: regular rate and rhythm, normal peripheral perfusion Respiratory: Lungs CTA, respirations non labored Extremities: no deformity, no trauma Assessment/Plan 1. Osteoarthritis of hip (M16.9: Osteoarthritis of hip, unspecified) - Encouraged to continue with PT as ordered - Follow-up with Ortho as scheduled Follow-up No qualifying data available Patient Education Total Hip Replacement, [id number] Problem List/Past Medical History Ongoing BMI 27.0-27.9,adult Cervical spondylosis Diverticular disease Foot deformity Foot drop Hypercholesterolemia Hypothyroidism Knee pain, left Left atrial enlargement Left bundle branch block Left sciatic nerve pain Lumbar spondylosis Moderate persistent asthma Murmur Non-seasonal allergic rhinitis due to pollen Nonsmoker Osteoarthritis of hip Osteopenia Overweight (BMI 25.0-29.9) Post-poliomyelitis muscular atrophy Primary hypertension Restless legs syndrome Right upper quadrant pain Shoulder pain, right Squamous cell carcinoma in situ Steatosis of liver Thoracic spondylosis Vitamin D deficiency Historical Asthma Right bundle branch block Procedure/Surgical History Hip replacement (11/29/2024), Cataracts, Cholecystectomy, Shoulder replacement. Medications acetaminophen 500 mg Tab Albuterol (Eqv-ProAir HFA) 90 mcg/inh inhalation aerosol, See Instructions aspirin, 81 mg, Oral, Daily aspirin 81 mg Oral EC Tab budesonide-formoterol 80 mcg-4.5 mcg/inh Inh Aer w/adapter candesartan 4 mg Tab, See Instructions, 4 refills celecoxib 200 mg Cap, See Instructions, 1 refills digoxin 125 mcg (0.125 mg) Tab, See Instructions docusate-senna 50 mg-8.6 mg Tab ergocalciferol 50,000 intl units Cap levothyroxine 50 mcg (0.05 mg) Tab, See Instructions, 1 refills meclizine 25 mg Tab, 25 mg= 1 tab(s), Oral, q8hr methylPREDNISolone 4 mg tab dosepak, 1 packet(s), Oral, Once metoprolol succinate 25 mg ER Tab, 25 mg= 1 tab(s), Oral, Bedtime, 3 refills montelukast 10 mg Tab, See Instructions spironolactone 25 mg Tab, See Instructions, 4 refills Symbicort, 80/4.5, Inhalation, BID triamcinolone Top 0.1% Crm 15 gram, 1 charity, Topical, TID Tums, Chewed, Daily Tylenol Extra Strength, 500 mg, Oral, BID, PRN Vitamin D 50,000 intl units (1.25 mg) oral capsule, 48420 International_Unit= 1 cap(s), Oral, 2x/Wk, 3 refills Allergies Augmentin (Unknown) Diflucan (Unknown) sulfa drugs (Unknown) traMADol (Unknown) Social History Alcohol - Denies Alcohol Use, 09/14/2023 Never, 09/09/2024 Substance Abuse - Denies Substance Abuse, 09/14/2023 Never, 09/09/2024 Tobacco - Denies Tobacco Use, 09/14/2023 Never (less than 100 in lifetime) Tobacco Use:. Never Smokeless Tobacco Use:. Household tobacco concerns: No. Yes, 10/02/2024 Family History Acute myocardial infarction: Grandparent and Grandparent. Immunizations Vaccine Date Status Comments influenza virus vaccine, inactivated 01/23/2024 Recorded influenza virus vaccine, inactivated 12/14/2022 Recorded SARS-CoV-2 (COVID-19) mRNAMUL.ORD![id number] 02/10/2022 Recorded influenza virus vaccine, inactivated 12/27/2021 Recorded SARS-CoV-2 (COVID-19) mRNA-1273 vaccine 03/17/2021 Recorded 2022-07-04: TPV80 influenza virus vaccine, inactivated 02/10/2021 Recorded pneumococca (more content not included)...[facility] Comment on above:Result Comment: Electronically Signed By: LEA WALLACE CNP.[email or web address]\Date and Time Signed: 12/16/24 14:44 EDTPre-Visit Planningon 12-12-2024 Pre-Visit PlanningPre-Visit Planning From: Sapphire Goel To: Marlee Martinez; Sent: 12/11/2024 10:01:57 EDT Subject: Pre-Visit Planning Due Date/Time: 12/11/2024 10:01:00 EDT Caller Name: UNA GOMEZ; Caller Number: Forrest , M Dc Whalen. During a pre-visit planning chart review, I noted the following documentation in the medical record: Current Problem List: Asthma. Current Medication List: albuterol, budesonide-formoterol, methylprednisolone, and montelukast. Based on your medical judgment, can you please clarify which of the following conditions/complications are present? I can update the Chronic Problem List with your response if you would like. -Intermittent or Persistent and -Mild, moderate, or severe -Other (please specify): In responding to this request, please exercise your independent professional judgment. The fact that a question is asked does not imply that any particular answer is desired or expected. If you have any questions, please feel free to contact me at extension [phone]. Thank you! Sapphire Goel LPN Clinical Public Transit Bus Driver [place] [address] Extension: [phone] [email or web address] From: Marlee Martinez To: Sapphire Goel; Sent: 12/12/2024 08:35:38 EDT Subject: RE: Pre-Visit Planning Caller Name: UNA GOMEZ; Caller Number: Forrest , M moderate persistent [facility]eraNoAden[facility] [phone] [facility] Case Information Case Priority: None Programs: -- Referral Source: Product Operations Associate Referral Reason: Care coordination Case Type: Transition Care Management Risk Score: -- Case Status: Enrolled (December 03, 2024) Date Assigned: December 03, 2024 Assigned By: Sean Ford Date Enrolled: December 03, 2024 Assigned Primary Personnel: Sean Ford Assigned Secondary Personnel: -- Case Physician: Marlee Martinez Problems Ongoing Asthma BMI 27.0-27.9,adult Cervical spondylosis Diverticular [...] block Procedure/Surgical History Cataracts, Cholecystectomy, Shoulder replacement. Home Medications Albuterol (Eqv-ProAir HFA) 90 mcg/inh inhalation [...] Instructions, 4 refills Symbicort, 80/4.5, Inhalation, BID triamcinolone Top 0.1% Crm 15 gram, 1 charity, Topical, TID Tums, Chewed, Daily Tylenol Extra Strength, 500 mg, Oral, BID, PRN Vitamin D 50,000 intl units (1.25 mg) oral capsule, 89052 International_Unit= 1 cap(s), Oral, 2x/Wk, 3 refills Allergies Augmentin (Unknown) Diflucan (Unknown) sulfa drugs (Unknown) traMADol (Unknown) Social History Alcohol - Denies Alcohol Use, 09/14/2023 Never, 09/09/2024 Substance Abuse - Denies Substance Abuse, 09/14/2023 Never, 09/09/2024 Tobacco - Denies Tobacco Use, 09/14/2023 Never (less than 100 in lifetime) Tobacco Use:. Never Smokeless Tobacco Use:. Household tobacco concerns: No. Yes, 10/02/2024 Family History Acute myocardial infarction: Grandparent and Grandparent. Screenings and Assessments 12/03/24 10:44:00 Result Name Value Comment Phone Call Monitoring Consent Agreed to continue call Phone Verification Patient Information Full name, street address and date of verified CM Program Enrollment Provides verbal consent for enrollment Goals and Interventions Care Plan Progress Note Admit Date: 11/25/24 [facility] Date of Discharge: 12/02/24 Follow-up appointment scheduled? yes, TCM follow up with Yan Malcolm 12/12 at 1340 Did you understand your discharge instructions? yes Are you able to follow them? yes Did you receive new medications? yes, acetaminophen 1000 mg q8 hr PRN Have you filled the Rx's? no, 'I do not need that' Are you taking them as prescribed? has not needed Are you having difficulty eating or swallowing your pills? no Are you having any stomach upset, diarrhea or constipation? no How are you sleeping? 'I slept really good last night' Are you having any pain? no Do you have everything you need at home to care for yourself? yes Do you have Home Health? no, will be doing out patient PT at [facility] Called patient for initial Transitional Care Management Program call. Readmission score is not available. Reviewed d/c instructions and dx of: S/P right total hip, post polio syndrome, impaired mobility, primary osteoarthritis. Reviewed purpose and side effects of new medication with patient. Medications will need to be reconciled at time of OV, patient is upstairs in bedroom at time of call. Patient underwent surgery at [facility], she was admitted there 11/19-11/25, prior to transitioning to the rehab unit. Patient states she is feeling 'good.' Notes she is ambulating without difficulty, she only uses walker if needed. She will complete PT at [facility] out patient clinic. Notes her appetite is good, and she is drinking lots of fluid. Denies bowel or urinary issues. Notes her surgical incision looks good, tashi intact. Denies drainage. Denied fever. Patient denies any questions or concerns at thistime. Patient has ortho f/u this Monday. TCM follow up with PCP, 12/12/24 at 1340, medications will need to be reconciled at that time. CN explained TCM program and gave CN contact number. Communication Events Date: December 03, 2024 Method: Phone c (more content not included)...Normal [facility] HospitalComplete Blood Count Auto Diffon 05-12-9221Wdnzapeii (Bld) [#/Vol]0.0 10*3/uLNormal0.0-0.2The [facility] Physician GroupComment on above:Result Comment: PERFORMED BY: [facility] [address] [place] [id number] PATHOLOGIST SALES STORE CHECKER BRENT LOPEZ M.D.Performed By: #### CBC, CMP, PAB ####[place] [address] USABasophils/100 WBC (Bld)0.3 % Normal.The [facility] Physician GroupComment on above:Performed By: #### CBC, CMP, PAB ####[place] [address] USAEosinophils (Bld) [#/Vol]0.3 10*3/uLNormal0.0-0.45The [facility] Physician GroupComment on above:Performed By: #### CBC, CMP, PAB ####[place] [address] USAEosinophils/100 WBC (Bld)5.2 % Normal.The [facility] Physician GroupComment on above:Performed By: #### CBC, CMP, PAB ####[place] [id number] USAErythrocyte distribution width (RBC) [Ratio]15.6 %High11.9-15.3The [facility] Physician GroupComment on above:Performed By: #### CBC, CMP, PAB ####[place] [address] USAHematocrit (Bld) [Volume fraction]28.8 %Low34.0-46.4The [facility] Physician GroupComment on above:Performed By: #### CBC, CMP, PAB ####[place] [address] USAHemoglobin (Bld) [Mass/Vol]9.9 g/dLLow 11.8-15.4The [facility] Physician GroupComment on above:Performed By: #### CBC, CMP, PAB ####[place] [address] USALymphocytes (Bld) [#/Vol]1.7 10*3/uLNormal1.00-4.8The [facility] Physician GroupComment on above:Performed By: #### CBC, CMP, PAB ####[place] [address] USALymphocytes/100 WBC (Bld)30.4 %Normal.The [facility] Physician GroupComment on above:Performed By: #### CBC, CMP, PAB ####[address] Ward StreetH (RBC) [Entitic mass]29.3 cqVyotds17.7-34.3The [facility] Comment on above:Performed By: #### CBC, CMP, PAB ####[address]MCV (RBC) [Entitic vol]85.5 fLNormal 80-100The [facility] Physician GroupComment on above:Performed By: #### CBC, CMP, PAB ####[address] Mean Corpuscular HGB Conc34.2 g/gQNwhvwu54.0-35.0The [facility] Comment on above:Performed By: #### CBC, CMP, PAB ####[place] [address] USAMonocytes (Bld) [#/Vol]0.6 10*3/uL Normal0.0-0.8The [facility] Physician GroupComment on above:Performed By: #### CBC, CMP, PAB ####[place] [address] USAMonocytes/100 WBC (Bld)11.0 %Normal.[facility] Comment on above:Performed By: #### CBC, CMP, PAB ####[place] [address] USANeutrophils (Bld) [#/Vol]3.0 10*3/uL Normal1.8-7.7The [facility] Physician GroupComment on above:Performed By: #### CBC, CMP, PAB ####[place] [address] USANeutrophils/100 WBC (Bld)53.1 %Normal.[facility] Comment on above:Performed By: #### CBC, CMP, PAB ####[place] [address] USANRBC%0.1 /100{WBC}Normal0-0.5The [facility] Physician GroupComment on above:Performed By: #### CBC, CMP, PAB ####[place] [address] [place] Platelet mean volume (Bld) [Entitic vol]7.3 fLNormal6.3-10.7The [facility] Physician GroupComment on above:Performed By: #### CBC, CMP, PAB ####[place] [address] USAPlatelets (Bld) [#/Vol]233 10*3/yOWxqpfx171-340Ubm [facility] Physician GroupComment on above: Performed By: #### CBC, CMP, PAB ####[place] [address] USARBC (Bld) [#/Vol]3.37 10*6/uLLow3.60-5.00The [facility] Physician GroupComment on above:Performed By: #### CBC, CMP, PAB ####[place] [address] USAWBC (Bld) [#/Vol]5.6 10*3/uLNormal3.8-11.6The [facility] Physician GroupComment on above:Performed By: #### CBC, CMP, PAB ####[address] [address] USAWhite Blood Count5.6 [CFU]/mLNormal3.8-11.6The [facility] Physician GroupComment on above:Performed By: #### CBC, CMP, PAB ####[address] [address] [facility] Comprehensive Metabolic Panelon [id number] [Mass/Vol]3.4 g/dLLow3.5-5.7 The [facility] Physician GroupComment on above:Performed By: #### CBC, CMP, PAB ####[place] [id number] [facility] Albumin/Globulin [Mass ratio]1.5 {ratio}NormalThe [facility] Comment on above:Performed By: #### CBC, CMP, PAB ####[address] [address] USAALP [Catalytic activity/Vol]58 U/L Ksekiy22-742Jcd [facility] Physician GroupComment on above:Performed By: #### CBC, CMP, PAB ####[address] [address] USAALT [Catalytic activity/Vol]20 U/LNormal7-52The [facility] Physician GroupComment on above:Performed By: #### CBC, CMP, PAB ####[address] [address] USAAnion gap [Moles/Vol]10.0 mmol/LNormal6.0-15.0The [facility] Physician GroupComment on above:Performed By: #### CBC, CMP, PAB ####[address] [address] USAAST [Catalytic activity/Vol]29 U/NRvxery04-55Aft [facility] Physician GroupComment on above:Performed By: #### CBC, CMP, PAB ####[address] [address] USABilirubin [Mass/Vol]0.7 mg/dL Normal0.3-1.0The [facility] Physician GroupComment on above:Performed By: #### CBC, CMP, PAB ####[place] [address] [place] [address] USACalcium [Mass/Vol]8.8 mg/dLNormal8.6-10.3The [facility] Comment on above:Performed By: #### CBC, CMP, PAB ####[address] [address] USAChloride [Moles/Vol]106 mmol/LNormal 98-107The [facility] Physician GroupComment on above:Performed By: #### CBC, CMP, PAB ####[address] [address] [place] CO2 [Moles/Vol]26.1 mmol/HTarjal93.0-31.0The [facility] Physician GroupComment on above:Performed By: #### CBC, CMP, PAB ####[place] [address] USACreatinine [Mass/Vol]0.65 mg/dLNormal0.60-1.20 The [facility] Physician GroupComment on above:Performed By: #### CBC, CMP, PAB ####[place] [address] [place] Creatinine Clr Calc Fqnjutzv24.56NormTampa Shriners Hospital Physician GroupComment on above:Performed By: #### CBC, CMP, PAB ####[place] [address] USAGFR/1.73 sq M.predicted MDRD (S/P/Bld) [Vol rate/Area]mL/min/{1.73_m2}NormalThe [facility] Physician GroupComment on above: Performed By: #### CBC, CMP, PAB ####[address] [address] USAGlobulin (S) [Mass/Vol]2.2 g/dLNoUNC Health Caldwell Physician GroupComment on above:Performed By: #### CBC, CMP, PAB ####[place] [address] USAGlucose [Mass/Vol]114 mg/aOIehb63-747Qpo [facility]ician GroupComment on above:Result Comment: Random Glucose Reference Range is dependent on time and content of last meal. Glucose of more than 200 mg/dL in a nonstressed, ambulatory subject supports the diagnosis of Diabetes Mellitus. ADA recommended reference rangePerformed By: #### CBC, CMP, PAB ####[place] [address] [place] [address] USAPotassium [Moles/Vol] 4.1 mmol/LNormal3.5-5.1The [facility] Physician GroupComment on above:Performed By: #### CBC, CMP, PAB ####[place] [address] [place] [address] USAProtein [Mass/Vol]5.6 g/dLLow6.4-8.9The [facility] Physician GroupComment on above:Performed By: #### CBC, CMP, PAB ####[address] [address] USASodium [Moles/Vol]138 mmol/FNceltf794-296Btd [facility] Physician GroupComment on above:Performed By: #### CBC, CMP, PAB ####[address] [address] USAUrea nitrogen [Mass/Vol]10 mg/dLNormal7-25The [facility] Physician GroupComment on above:Performed By: #### CBC, CMP, PAB ####[address] [address] USAPrealbuminon 11-26-2024 Prealbumin [Mass/Vol]14.1 mg/dLLow17.0-34.0The [facility] Physician GroupComment on above:Result Comment: PERFORMED BY: [facility] [address] [facility] [place] [id number] PATHOLOGIST SALES STORE CHECKER BRENT LOPEZ M.D.Performed By: #### CBC, CMP, PAB ####[address] [address] USABasic Metabolic Panelon [id number] gap [Moles/Vol]7.2 mmol/LNormal6.0-15.0The [facility] Physician GroupComment on above:Performed By: #### BMP, CBC ####[place] [address] [place] [address] USACalcium [Mass/Vol]8.1 mg/dLLow 8.6-10.3The [facility] Physician GroupComment on above:Performed By: #### BMP, CBC ####[place] [address] [place] [address] [place] Chloride [Moles/Vol]104 mmol/GGylsvo89-601Sfb [facility] Physician GroupComment on above:Performed By: #### BMP, CBC ####[place] [address] [place] [address] USACO2 [Moles/Vol]26.9 mmol/OAmuanl54.0-31.0The [facility] Physician GroupComment on above:Performed By: #### BMP, CBC ####[address] [address] [place] Creatinine [Mass/Vol]0.58 mg/dLLow0.60-1.20The [facility] Physician GroupComment on above:Performed By: #### BMP, CBC ####[place] [address] [place] [address] USACreatinine Clr Calc Jefyznml17.08NormTampa Shriners Hospital Physician [facility] HospitalComment on above:Result Comment: PERFORMED BY: [facility] [address] [place] [id number] PATHOLOGIST SALES STORE CHECKER BRENT LOPEZ M.D.Performed By: #### BMP, CBC ####[address] [address] USAGFR/1.73 sq M.predicted MDRD (S/P/Bld) [Vol rate/Area]mL/min/{1.73_m2}NormalThe [facility] Physician GroupComment on above:Performed By: #### BMP, CBC ####[address] [address] USAGlucose [Mass/Vol]99 mg/rGOkftnt66-191Rdw [facility] Physician GroupComment on above:Result Comment: Random Glucose Reference Range is dependent on time and content of last meal. Glucose of more than 200 mg/dL in a nonstressed, ambulatory subject supports the diagnosis of Diabetes Mellitus. ADA recommended reference rangePerformed By: #### BMP, CBC ####[place] [address] USAPotassium [Moles/Vol] 4.1 mmol/LNormal3.5-5.1The [facility] Physician GroupComment on above:Performed By: #### BMP, CBC ####[place] [address] USASodium [Moles/Vol]134 mmol/MJwv831-581Djx [facility] Comment on above:Performed By: #### BMP, CBC ####[place] [address] USAUrea nitrogen [Mass/Vol]12 mg/dLNormal 7-25The [facility] Physician GroupComment on above:Performed By: #### BMP, CBC ####[address] Complete Blood Count Auto Diffon [id number] (Bld) [#/Vol]0.0 10*3/uL Normal0.0-0.2The [facility] Physician [facility] HospitalComment on above:Result Comment: PERFORMED BY: [address] [place] [address] PATHOLOGIST SALES STORE CHECKER BRENT LOPEZ M.D.Performed By: #### BMP, CBC ####[place] [address] USABasophils/100 WBC (Bld)0.2 %Normal.The [facility] Physician GroupComment on above:Performed By: #### BMP, CBC ####[place] [address] [place] Eosinophils (Bld) [#/Vol]0.1 10*3/uLNormal0.0-0.45The [facility] Comment on above:Performed By: #### BMP, CBC ####[place] [address] USAEosinophils/100 WBC (Bld)1.0 %Normal. The [facility] Physician GroupComment on above:Performed By: #### BMP, CBC ####[place] [address] [place] Erythrocyte distribution width (RBC) [Ratio]15.7 %High11.9-15.3The [facility] Physician GroupComment on above:Performed By: #### BMP, CBC ####[place] [address] USAHematocrit (Bld) [Volume fraction]29.4 %Low34.0-46.4The [facility] Physician GroupComment on above:Performed By: #### BMP, CBC ####[place] [address] USAHemoglobin (Bld) [Mass/Vol]10.0 g/dLLow11.8-15.4The [facility] Physician GroupComment on above:Performed By: #### BMP, CBC ####[place] [address] [place] Lymphocytes (Bld) [#/Vol]2.3 10*3/uLNormal1.00-4.8The [facility] Comment on above:Performed By: #### BMP, CBC ####[place] [address] USALymphocytes/100 WBC (Bld)27.8 %Normal. The [facility] Physician GroupComment on above:Performed By: #### BMP, CBC ####[place] [address] USAMCH (RBC) [Entitic mass]29.4 kiOezdtn34.7-34.3The [facility] Physician GroupComment on above:Performed By: #### BMP, CBC ####[place] [address] USAMCV (RBC) [Entitic vol]86.6 rNSbvmeu44-203Cyh [facility] Physician GroupComment on above:Performed By: #### BMP, CBC ####[place] [address] USAMean Corpuscular HGB Conc33.9 g/zGTgmmae21.0-35.0The [facility] Physician GroupComment on above:Performed By: #### BMP, CBC ####[place] [address] USAMonocytes (Bld) [#/Vol]0.9 10*3/uLHigh0.0-0.8 The [facility] Physician GroupComment on above:Performed By: #### BMP, CBC ####[place] [address] [place] Monocytes/100 WBC (Bld)10.3 %Normal.The [facility] Physician GroupComment on above:Performed By: #### BMP, CBC ####[place] [address] USANeutrophils (Bld) [#/Vol]5.1 10*3/uLNormal1.8-7.7The [facility] Physician GroupComment on above:Performed By: #### BMP, CBC ####[place] [address] [place] Neutrophils/100 WBC (Bld)60.7 %Normal.The [facility] Physician GroupComment on above:Performed By: #### BMP, CBC ####[place] [address] USANRBC%0.0 /100{WBC}Normal0-0.5The [facility] Physician GroupComment on above:Performed By: #### BMP, CBC ####[place] [address] USAPlatelet mean volume (Bld) [Entitic vol]7.4 fLNormal6.3-10.7The [facility] Physician GroupComment on above: Performed By: #### BMP, CBC ####[place] [address] USAPlatelets (Bld) [#/Vol]174 10*3/bBRvzrpo125-661Sqb [facility] Physician GroupComment on above:Performed By: #### BMP, CBC ####[facility] [address] [place] [id number] USARBC (Bld) [#/Vol]3.39 10*6/uLLow3.60-5.00The [facility] Physician GroupComment on above:Performed By: #### BMP, CBC ####[facility] [address] [place] [address] USAWBC (Bld) [#/Vol]8.4 10*3/uLNormal3.8-11.6The [facility] Physician GroupComment on above:Performed By: #### BMP, CBC ####[place] [address] USAWhite Blood Count8.4 [CFU]/mLNormal3.8-11.6The [facility] Physician GroupComment on above:Performed By: #### BMP, CBC ####[place] [address] USABasic Metabolic Panelon [id number] gap [Moles/Vol]10.0 mmol/LNormal6.0-15.0The [facility] Physician GroupComment on above:Performed By: #### BMP, CBC #### [facility] [address] [place] [address] USACalcium [Mass/Vol]8.7 mg/dLNormal8.6-10.3The [facility] Physician GroupComment on above:Performed By: #### BMP, CBC #### [facility] [address] [place] [address] USAChloride [Moles/Vol]102 mmol/OBkmtks42-045Mhq [facility] Physician GroupComment on above:Performed By: #### BMP, CBC #### [facility] [address] [place] [address] USACO2 [Moles/Vol]27.0 mmol/RDhhwvh15.0-31.0The [facility] Physician GroupComment on above:Performed By: #### BMP, CBC #### [facility] [address] [place] [address] USACreatinine [Mass/Vol]0.61 mg/dLNormal0.60-1.20The [facility] Physician GroupComment on above:Performed By: #### BMP, CBC #### [place] [address] USACreatinine Clr Calc Paikhzjf02.08NormalThe [facility] Physician GroupComment on above:Result Comment: PERFORMED BY: [place] [address] PATHOLOGIST SALES STORE CHECKER BRENT LOPEZ M.D.Performed By: #### BMP, CBC #### [place] [address] USAGFR/1.73 sq M.predicted MDRD (S/P/Bld) [Vol rate/Area] mL/min/{1.73_m2}NormalThe [facility] Physician GroupComment on above:Performed By: #### BMP, CBC #### [place] [address] USAGlucose [Mass/Vol]139 mg/rIRclw98-479Ltb [facility] Physician GroupComment on above:Result Comment: Random Glucose Reference Range is dependent on time and content of last meal. Glucose of more than 200 mg/dL in a nonstressed, ambulatory subject supports the diagnosis of Diabetes Mellitus. ADA recommended reference rangePerformed By: #### BMP, CBC #### [place] [address] USAPotassium [Moles/Vol]4.0 mmol/LNormal3.5-5.1The [facility] Physician GroupComment on above:Performed By: #### BMP, CBC #### [place] [address] USASodium [Moles/Vol]135 mmol/CGxq512-818Ack [facility] Physician GroupComment on above:Performed By: #### BMP, CBC #### [place] [address] USAUrea nitrogen [Mass/Vol]12 mg/dLNormal7-25The [facility] Physician GroupComment on above:Performed By: #### BMP, CBC #### [place] [address] USAComplete Blood Count Auto Diffon [id number] (Bld) [#/Vol]0.0 10*3/uLNormal0.0-0.2The [facility] Physician GroupComment on above: Result Comment: PERFORMED BY: [place] [address] PATHOLOGIST SALES STORE CHECKER BRENT LOPEZ M.D.Performed By: #### BMP, CBC #### [place] [address] USABasophils/100 WBC (Bld)0.1 %Normal.The [facility] Physician GroupComment on above:Performed By: #### BMP, CBC #### [place] [address] USAEosinophils (Bld) [#/Vol]0.0 10*3/uLNormal0.0-0.45The [facility] Physician GroupComment on above:Performed By: #### BMP, CBC #### [place] [address] USAEosinophils/100 WBC (Bld)0.0 %Normal.The [facility] Physician GroupComment on above:Performed By: #### BMP, CBC #### [place] [address] USAErythrocyte distribution width (RBC) [Ratio]15.6 %High 11.9-15.3The [facility] Physician GroupComment on above:Performed By: #### BMP, CBC #### [place] [address] USAHematocrit (Bld) [Volume fraction]32.9 %Low34.0-46.4The [facility] Physician GroupComment on above:Performed By: #### BMP, CBC #### [place] [address] USAHemoglobin (Bld) [Mass/Vol]11.0 g/dLLow11.8-15.4The [facility] Physician GroupComment on above:Performed By: #### BMP, CBC #### [address] [place] [address] USALymphocytes (Bld) [#/Vol]1.2 10*3/uLNormal1.00-4.8The [facility] Physician GroupComment on above:Performed By: #### BMP, CBC #### [place] [address] USALymphocytes/100 WBC (Bld)9.8 %Normal.The [facility] Physician GroupComment on above:Performed By: #### BMP, CBC #### [place] [address] USAMCH (RBC) [Entitic mass]28.6 pvCfwklp98.7-34.3The [facility] Physician GroupComment on above:Performed By: #### BMP, CBC #### [place] [address] USAMCV (RBC) [Entitic vol]85.5 cTHndfyx56-816Yub [facility] Physician GroupComment on above:Performed By: #### BMP, CBC #### [place] [address] USAMean Corpuscular HGB Conc33.4 g/hEVluxlg04.0-35.0The [facility] Physician GroupComment on above:Performed By: #### BMP, CBC #### [place] [address] USAMonocytes (Bld) [#/Vol]0.6 10*3/uLNormal0.0-0.8The [facility] Physician GroupComment on above:Performed By: #### BMP, CBC #### [place] [address] USAMonocytes/100 WBC (Bld)5.4 %Normal.The [facility] Physician GroupComment on above:Performed By: #### BMP, CBC #### [place] [address] USANeutrophils (Bld) [#/Vol]10.2 10*3/uLHigh1.8-7.7The [facility] Physician GroupComment on above:Performed By: #### BMP, CBC #### [facility] [address] [place] [address] USANeutrophils/100 WBC (Bld)84.7 %Normal.The [facility] Physician GroupComment on above:Performed By: #### BMP, CBC #### [facility] [address] [place] [address] USANRBC%0.0 /100{WBC}Normal0-0.5The [facility] Comment on above:Performed By: #### BMP, CBC #### [place] [address] USAPlatelet mean volume (Bld) [Entitic vol]7.6 fLNormal 6.3-10.7The [facility] Physician GroupComment on above:Performed By: #### BMP, CBC #### [place] [address] USAPlatelets (Bld) [#/Vol]204 10*3/mLQexags478-160Rim [facility] Health Physician GroupComment on above:Performed By: #### BMP, CBC #### [place] [address] USARBC (Bld) [#/Vol]3.85 10*6/uLNormal3.60-5.00The [facility] Health Physician GroupComment on above:Performed By: #### BMP, CBC #### [place] [address] USAWBC (Bld) [#/Vol]12.0 10*3/uLHigh3.8-11.6The [facility] Health Physician GroupComment on above:Performed By: #### BMP, CBC #### [place] [address] USAWhite Blood Count12.0 [CFU]/mLHigh3.8-11.6The [facility] Health Physician GroupComment on above:Performed By: #### BMP, CBC #### [place] [address] USALon 11-19-2024L Specimen: [id number] Received: 11/19/24 Status: SHERYL Paiz Num: [id number] Spec Type: Surgical Subm Dr: Fred Hernandez MD Tissues: A Gross Only (R HIP BONE AND TISSUE) Procedures: Level 1 Gross Age/ Patient Sex Location Account Attending Physician Una Gomez 84/F 4N [id number] Fred Hernandez MD SPEC NUM: [id number] RECD: 11/19/24 STATUS: SHERYL PAIZ NUM: [id number] FABIANA: 11/19/24-[address] [facility] DR: Fred Hernandez MD ENTERED: 11/19/[address] [facility] [address]: SPEC TYPE: Surgical DEPT: S ENTERED BY: [id number] RECV BY: [id number] ORDERED: Level 1 Gross ORDERED: Level 1 Gross Pathological Diagnosis Right hip, bone and tissue, right total hip arthroplasty: - Right femoral head with degenerative changes. - Gross examination. Clinical Information Right hip osteoarthritis Gross Description Received in formalin labeled with the patients name, date of , and bone and tissue right hip is a femoral head, 4 x 4.2 x 4 cm, resected with attached femoral neck, 1.5 cm in length by up to 3.5 cm in diameter with detached bone fragments admixed with a small amount of fibrofatty tissue, 6.5 x 4.5 x 2.3 cm in aggregate. The articular surface is remarkable for granular deep generation, eburnation, and a hyperostotic change along the rim of the neck, 3.2 x 1.6 x 0.4 cm. The subarticular capsular surface ranges from less than 0.1 to 0.2 cm in thickness. The medullary bone was coles, firm and uniform. GROSS ONLY- Microscopic Description Gross examination only. Specimen: [id number] Received: 11/19/24 Status: SHERYL Paiz Num: [id number] Spec Type: Surgical Subm Dr: Fred Hernandez MD Tissues: A Gross Only (R HIP BONE AND TISSUE) Procedures: Level 1 Gross Patient: Una Gomez [id number] (Continued) Specimen: [id number] Received: 11/19/24 (Continued) Signed (signature on file) Kwasi Colindres MD 11/20/24 1456 Specimen: [id number] Received: 11/19/24 Status: SHERYL Paiz Num: [id number] Spec Type: Surgical Subm Dr: Fred Hernandez MD Tissues: A Gross Only (R HIP BONE AND TISSUE) Procedures: Level 1 Gross Patient: Una Gomez [id number] (Continued) Specimen: [id number] Received: 11/19/24 (Continued) CPT Codes 83488 Specimen: [id number] Received: 11/19/24 Status: SHERYL Paiz Num: [id number] Spec Type: Surgical Subm Dr: Fred Hernandez MD Tissues: A Gross Only (R HIP BONE AND TISSUE) Procedures: Level 1 Gross Patient: Una Gomez [id number] (Continued) Signed (signature on file) Kwasi Colindres MD 11/20/24 1456NoAt[facility] Physician GroupXR hip RT 1Von 59-73-3352TA hip RT 1[facility] Main [address] [address] XRay Report Signed Patient: Una Gomez MR#: [id number] : 1940 Acct:[id number] Age/Sex: 84 / F ADM Date: 11/19/24 Loc: Room: [address] [place] [address] Type: [facility] Attending Dr: Fred Hernandez II, MD Copies to: Fred Hernandez MD Ordering Provider: Fred Hernandez MD Date of Service: 11/19/24 XR/XR hip RT 1V: RT TOTAL HIP IN OR Fluoroscopic assessment for right total hip arthroplasty HISTORY: Right hip arthroplasty 6 image was obtained. Cumulative Air Kerma in mGy: 6.69 mGy Adequate alignment without hardware complication. XR/XR hip RT 1V IMPRESSION: Intraoperative assessment of right hip arthroplasty Impression dictated by: Rock Webster M.D. 11/19/2024 4:36 PM Dictation Location: [facility]--16 Transcribed By: [facility] 11/19/24 163 Dictated By: Rock Webster DO 11/19/24 1635 Signed By: 11/19/24 1636[facility] Physician GroupXR low pelvis w/RT x-table hipon 64-68-7041ST low pelvis w/RT x-[facility]AD[facility] Main [address] [address] XRay Report Signed Patient: Una Gomez MR#: [id number] : 1940 Acct:[id number] Age/Sex: 84 / F ADM Date: 11/19/24 Loc: [place] Room: Type: [facility] Attending Dr: Fred Hernandez II, MD Copies to: Fred Hernandez MD Ordering Provider: Fred Hernandez MD Date of Service: 11/19/24 XR/XR low pelvis w/RT x-table hip: Total hip, do in PACU Plain film of pelvis with right crosstable hip HISTORY: Status post right total hip arthroplasty Adequate alignment of hardware without complication. Adequate bony alignment without acute displaced fracture. Postsurgical soft tissue changes. Extensive left hip degeneration. XR/XR low pelvis w/RT x-table hip IMPRESSION: Uncomplicated right hip arthroplasty. Impression dictated by: Rock Webster M.D. 11/19/2024 1:46 PM Dictation Location: [facility]-16 Transcribed By: [facility] 11/19/24 1346 Dictated By: Rock Webster DO 11/19/24 1345 Signed By: 11/19/24 1346[facility]ician [facility] transthoracicon 06-78-6649EUY echo transthoracicADENA REGIONAL [facility] Main [place] [address] [place] [address] Echocardiogram Signed Patient: Una Gomez MR#: [id number] : 1940 Acct:[id number] Age/Sex: 84 / F ADM Date: 11/12/24 Loc: Room: Type: [facility] Attending Dr: Curtis Morales MD Ordering Provider: Curtis Morales MD Date of Service: 11/12/2411/28/856 ECH/[facility] echo transthoracic: R94.31 - Abnormal electrocardiogram [ECG] [EKG] Copies to: Curtis Morales MD Weight: 128 lb Performed By: HEENA Kilpatrick BSA: 1.5 m2 BP: 115/68 mmHg HR: 70 Reason For Study: R94.31 - Abnormal electrocardiogram [ECG] [EKG] History: HTN, Asthma, COVID, Irregular Heart Beat Interpretation Summary Ejection Fraction = 50-55%. Septal motion is consistent with conduction abnormality. The left ventricular size and thickness are normal. Mild aortic regurgitation. There is trace tricuspid regurgitation. There is no comparison study available. Procedure/Quality: A two-dimensional transthoracic echocardiogram with color flow, Doppler and injection of contrast agent Definity was performed. The study was technically good in quality. Left Ventricle: The left ventricular size and thickness are normal. Ejection Fraction = 50-55%. Indeterminate diastolic function. Septal motion is consistent with conduction abnormality. Left Atrium: The left atrium appears normal in size. Right Atrium: The right atrium appears normal in size. Right Ventricle: The right ventricle is normal in size and function. Aortic Valve: The aortic valve is mildly calcified. The aortic valve is trileaflet. No hemodynamically significant valvular aortic stenosis. Mild aortic regurgitation. Mitral Valve: The mitral valve is normal in structure. No significant mitral valve stenosis. There is no mitral regurgitation noted. Tricuspid Valve: The tricuspid valve is normal in structure. There is trace tricuspid regurgitation. Pulmonic Valve: The pulmonic valve is not well visualized. No significant pulmonic regurgitation. Arteries: The aortic root is normal size. Pericardium/Pleura: No pericardial effusion seen. IVC/Hepatic Veins: The inferior vena cava is normal in size, with a normal collapsibility index. Measurements with Normals IVSd: 1.1 cm (0.7-1.1 cm)LVIDd: 4.5 cm (3.7-5.4 cm) LVPWd: 1.0 cm (0.7-1.1 cm)LVIDs: 2.7 cm (2.3-3.6 cm) LA dimension: 2.6 cm (2.3-4.0 cm)Ao root diam: 3.3 cm(2.0-3.6 cm) asc Aorta Diam: 3.7 cm(2.1-3.4cm) Doppler with Normals RVSP(TR): 33.1 mmHg (18-35mmHg) LV V1 max: 124.0 cm/sec (0.7-1.7m/s)MV E max barbara: 85.3 cm/sec(0.8-1.3m/s) MV A max barbara: 127.4 cm/sec(0.0-0.0m/s) MV E/A: 0.67 (<1.5) MMode/2D Measurements Calculations RVDd: 2.2 cm FS: 40.2 % Ao root area: LVOT diam: 1.9 cm TAPSE: 2.6 cm EDV(Teich): 8.4 cm2 LVOT area: 2.9 cm2 RV S Barbara: 92.4 ml 23.5 cm/sec ESV(Teich): 26.8 ml EF(Teich): 71.0 % __ LVLd ap4: 7.2 cm SV(MOD-sp4): LAV(MOD-sp4): LA A2 area: 12.6 cm2 EDV(MOD-sp4): 61.2 ml 18.2 ml 124.0 ml LAV(MOD-sp2): LA A4 area: 9.9 cm2 LVLs ap4: 6.4 cm 29.8 ml LA length (vol): ESV(MOD-sp4): 4.4 cm 62.8 ml LA vol: 23.9 ml EF(MOD-sp4): 49.4 % LA vol index: 15.8 ml/m2 Doppler Measurements Calculations MV dec time: MV V2 max: E/E' lat: 10.7 MV P1/2t max barbara: 0.35 sec 168.3 cm/sec E/E' med: 16.3 102.1 cm/sec MV max P.0 mmHg MV P1/2t: 96.9 msec MV V2 mean: 83.7 cm/sec MVA(P1/2t): 2.3 cm2 MV mean P.4 mmHg MV dec slope: MV V2 VTI: 48.6 cm 308.4 cm/sec2 MVA(VTI): 1.2 cm2 __ Ao V2 max: AI max barbara: LV V1 max PG: MR max barbara: 189.0 cm/sec 374.6 cm/sec 6.2 mmHg 360.1 cm/sec Ao max PG: AI max P.1 mmHg LV V1 mean PG: MR max P.0 mmHg 14.3 mmHg AI dec slope: 3.0 mmHg Ao mean PG: LV V1 mean: 8.0 mmHg 118.9 cm/sec2 74.9 cm/sec Ao V2 mean: AI P1/2t: 922.8 msec LV V1 VTI: 125.0 cm/sec 21.0 cm Ao V2 VTI: 38.5 cm LINDSEY(I,D): 1.6 cm2 LINDSEY(V,D): 1.9 cm2 __ TV max PG: TR max barbara: 28.0 mmHg 265.0 cm/sec TR max P.1 mmHg RAP systole: 5.0 mmHg Transcribed By: DEBORAH Performed At: 11/12/24 0859 Signed By: Curtis Morales MD 11/12/24 1611NoUNC Health Caldwell Physician GroupAppearance of UrineOrdered By: Fred Hernandez on 11-01-2024 Appearance (U)ClearNormalClearDoctors HospitalComment on above: Order Comment: Name Collection Type:: Clean-Voided MidstreamPerformed By: #### UA ####[facility] [address] Basic Metabolic Panelon 24-41-9910SYM/1.73 sq M.predicted MDRD (S/P/Bld) [Vol rate/Area]mL/min/{1.73_m2}NormalThe Caromont Health Physician GroupComment on above: Performed By: #### FRUC #### [facility] , #### BMP, CBC #### [facility] [address] [place] [address] USABasophils [#/volume] in Blood by Automated countOrdered By: Fred Hernandez on 09-40-2236Wopraeyuj (Bld) [#/Vol]0.0 10*3/uLNormal0.0-0.2 Doctors HospitalComment on above:Result Comment: PERFORMED BY: [facility] [address] [facility] [place] [address] PATHOLOGIST SALES STORE CHECKER BRENT LOPEZ M.D.Performed By: #### FRUC #### [facility] , #### BMP, CBC #### [facility] [address] [place] [id number] USABasophils/100 leukocytes in Blood by Automated count Ordered By: Fred Hernandez on 05-37-4749Ylqchjxby/100 WBC (Bld)0.5 %Normal. Doctors HospitalComment on above:Performed By: #### FRUC #### [facility] , #### BMP, CBC #### [facility] [address] [place] [address] USABilirubin Test strip Ql (U)Ordered By: Fred Hernandez on 50-22-3684Ojrmqwaua Ql (U)NegativeNegativeDoctors Hospital Calcium [Mass/volume] in Serum or PlasmaOrdered By: Fred Hernandez on 48-86-4025Ocphykm [Mass/Vol]9.7 mg/dLNormal8.6-10.3FMiami Valley HospitalComment on above:Result Comment: PERFORMED BY: [place] [address] PATHOLOGIST SALES STORE CHECKER BRENT LOPEZ M.D.Performed By: #### FRUC #### [facility] , #### BMP, CBC #### [place] [address] USACarbon dioxide, total [Moles/volume] in Serum or Plasma Ordered By: Fred Hernandez on 49-83-5553JR3 [Moles/Vol]30.2 mmol/LNormal 21.0-31.0Doctors HospitalComment on above:Performed By: #### FRUC #### [facility] , #### BMP, CBC #### [place] [address] USAChloride [Moles/volume] in Serum or PlasmaOrdered By: Fred Hernandez on 74-22-6820Nglobnbr [Moles/Vol]101 mmol/BAzrhft29-344VtlzqxezjDoctors HospitalComment on above:Performed By: #### FRUC #### [facility] , #### BMP, CBC #### [facility] [address] [place] [address] USAColor of Urine by AutoOrdered By: Fred Hernandez on 37-71-6181Ifrxz (U)Light-yellowNormalYellowDoctors Hospital Comment on above:Order Comment: Name Collection Type:: Clean-Voided Midstream Performed By: #### UA ####[facility] [address] [place] [address] USAComplete Blood Count Auto Diffon 14-64-4432Eaup Corpuscular HGB Conc33.7 g/eWUjusiu55.0-35.0The [facility] Physician [facility] Regional HospitalComment on above:Performed By: #### FRUC #### [facility] , #### BMP, CBC #### [facility] [address] [place] [address] USANRBC%0.1 /100{WBC}Normal0-0.5The [facility] Comment on above:Performed By: #### FRUC #### [facility] , #### BMP, CBC #### [place] [address] USAWhite Blood Count6.1 [CFU]/mLNormal3.8-11.6The Mercy Philadelphia HospitalComment on above:Performed By: #### FRUC #### [facility] , #### BMP, CBC #### [facility] [address] [place] [address] USACreatinine [Mass/volume] in Serum or PlasmaOrdered By: Fred Hernandez on 96-43-7816Nrhnikmeeu [Mass/Vol]0.63 mg/dLNormal0.60-1.20 Doctors HospitalComment on above:Performed By: #### FRUC #### [facility] , #### BMP, CBC #### [facility] [address] [place] [address] USAEosinophils [#/volume] in Blood by Automated countOrdered By: Fred Hernandez on 88-45-0247Oehkqxvvzmy (Bld) [#/Vol]0.2 10*3/uLNormal 0.0-0.45Doctors HospitalComment on above:Performed By: #### FRUC #### [facility] , #### BMP, CBC #### [place] [address] USAEosinophils/100 leukocytes in Blood by Automated count Ordered By: Fred Hernandez on 05-13-0195Qsdpqkoeauv/100 WBC (Bld)3.9 %Normal. Doctors HospitalComment on above:Performed By: #### FRUC #### [facility] , #### BMP, CBC #### [facility] [address] [place] [address] USAErythrocyte distribution width [Ratio] by Automated count Ordered By: Fred Hernandez on 62-29-8970Lhzkffekhnb distribution width (RBC) [Ratio]16.7 %High11.9-15.3FMiami Valley HospitalComment on above: Performed By: #### FRUC #### [facility] , #### BMP, CBC #### [place] [address] USAErythrocytes [#/volume] in Blood by Automated countOrdered By: Fred Hernandez on 95-79-9848DAB (Bld) [#/Vol]4.29 10*6/uLNormal3.60-5.00 Doctors HospitalComment on above:Performed By: #### FRUC #### [facility] , #### BMP, CBC #### [place] [address] USAFructosamineon 08-64-9960Iwhcyptxvgmr258 umol/LNormal0-285 The [facility] Health Physician GroupComment on above:Result Comment: Published reference interval for apparently healthy subjects between age 20 and 60 is 205 - 285 umol/L and in a poorly controlled diabetic population is 228 - 563 umol/L with a mean of 396 umol/L. Performed at: [facility] [address] [id number] Legal Instructor: Fady Shoemaker PhD, Phone: [phone] PERFORMED BY: [place] [address] PATHOLOGIST SALES STORE CHECKER BRENT LOPEZ M.D.Performed By: #### FRUC #### [facility] , #### BMP, CBC #### [facility] [address] [place] [id number] USAFructosamine [Moles/volume] in Serum or PlasmaOrdered By: Fred Hernandez on 88-69-1252Zpdyilkgoleh [Moles/Vol]222 umol/L0-285Doctors HospitalComment on above:Published reference interval for apparently healthysubjects between age 20 and 60 is 205 - 285 umol/L and in apoorly controlled diabetic population is 228 - 563 umol/Lwith a mean of 396 umol/L.Performed at: [address] [id number] Director: Fady Shoemaker PhD, Phone: [phone] filtration rate [Volume Rate/Area] in Serum, Plasma or Blood by Creatinine Ordered By: Fred Hernandez on 32-53-7411Xsqgtnubcc filtration rate [Volume Rate/Area] in Serum, Plasma or Blood by Creatinine> 60.0 mL/MinDoctors HospitalGlucose [Mass/volume] in Serum or PlasmaOrdered By: Fred Hernandez on 60-89-7291Gkacqho [Mass/Vol]97 mg/aINondvo26-373KvbrddamwDoctors HospitalComment on above:ADA recommended reference rangeRandom Glucose Reference Range is dependent on time and content of last meal. Glucose of more than 200 mg/dL in a nonstressed, ambulatory subject supports the diagnosisof Diabetes Mellitus.Result Comment: Random Glucose Reference Range is dependent on time and content of last meal. Glucose of more than 200 mg/dL in a nonstressed, ambulatory subject supports the diagnosis of Diabetes Mellitus. ADA recommended reference rangePerformed By: #### FRUC #### [facility] , #### BMP, CBC #### [facility] [address] [place] [address] USAGlucose [Mass/volume] in Urine by Test stripOrdered By: Fred Hernandez on 27-80-7388Opsjohp Test strip (U) [Mass/Vol]Normal mg/dLNormal Doctors HospitalHematocrit [Volume Fraction] of Blood by Automated countOrdered By: Fred Hernandez on 27-15-7303Bptcisjhfr (Bld) [Volume fraction]36.8 %Qydzvu07.0-46.4FMiami Valley HospitalComment on above:Performed By: #### FRUC #### [facility] , #### BMP, CBC #### [facility] [address] [place] [id number] USAHemoglobin Test strip Ql (U)Ordered By: Fred Hernandez on 16-09-6297Urchokzhxk Ql (U)[facility] Hemoglobin [Mass/volume] in BloodOrdered By: Fred Hernandez on 11-01-2024 Hemoglobin (Bld) [Mass/Vol]12.4 g/nKOxknmr87.8-15.4FMiami Valley HospitalComment on above:Performed By: #### FRUC #### [facility] , #### BMP, CBC #### [facility] [address] [place] [address] USAKetones [Presence] in Urine by Test stripOrdered By: Fred Hernandez on 72-82-6681Embwlxj Ql (U)NegativeGuernsey Memorial HospitalComment on above:Order Comment: Name Collection Type:: Clean-Voided MidstreamPerformed By: #### UA ####[facility] [place] [id number] USALeukocyte esterase [Presence] in Urine by Test stripOrdered By: Fred Hernandez on 94-84-2933Qhmqlffpq esterase Test strip Ql (U)NegativeGuernsey Memorial HospitalComment on above:Order Comment: Name Collection Type:: Clean-Voided MidstreamPerformed By: #### UA ####[place] [address] USALeukocytes [#/volume] corrected for nucleated erythrocytes in Blood by Automated counOrdered By: Fred Hernandez on 82-18-4214VDB corrected for nucl RBC Auto (Bld) [#/Vol]6.1 10*3/uL3.8-11.6FMiami Valley Hospital Leukocytes [#/volume] in Blood by Automated countOrdered By: Fred Hernandez on 73-22-7569GOT (Bld) [#/Vol]6.1 10*3/uLNormal3.8-11.6FMiami Valley HospitalComment on above:Performed By: #### FRUC #### [facility] , #### BMP, CBC #### [facility] [address] [place] [id number] USALymphocytes [#/volume] in Blood by Automated countOrdered By: Fred Hernandez on 05-32-7811Xicsigtshmn (Bld) [#/Vol]1.9 10*3/uLNormal 1.00-4.8Doctors HospitalComment on above:Performed By: #### FRUC #### [facility] , #### BMP, CBC #### [facility] [address] [place] [address] USALymphocytes/100 leukocytes in Blood by Automated count Ordered By: Fred Hernandez on 89-88-3415Swnucajisfa/100 WBC (Bld)30.4 %Normal. Doctors HospitalComment on above:Performed By: #### FRUC #### [facility] , #### BMP, CBC #### [facility] [address] [place] [address] [facility] [Entitic mass] by Automated countOrdered By: Fred Hernandez on 22-04-4943ZOE (RBC) [Entitic mass]29.0 dvYjuhuk86.7-34.3FMiami Valley HospitalComment on above:Performed By: #### FRUC #### [facility] , #### BMP, CBC #### [facility] [address] [place] [address] USAMCHC Auto (RBC) [Mass/Vol]Ordered By: Fred Hernandez on 96-29-1231BITK (RBC) [Mass/Vol]33.7 g/dL32.0-35.0Doctors HospitalMCV [Entitic volume] by Automated countOrdered By: Fred Hernandez on 53-51-0777CNG (RBC) [Entitic vol]85.8 dKVaeaak77-556IcsncszfrDoctors HospitalComment on above:Performed By: #### FRUC #### [facility] , #### BMP, CBC #### [facility] [address] [place] [address] USAMonocytes [#/volume] in Blood by Automated countOrdered By: Fred Hernandez on 52-22-1807Zmgdwrrmu (Bld) [#/Vol]0.7 10*3/uLNormal0.0-0.8 Doctors HospitalComment on above:Performed By: #### FRUC #### [facility] , #### BMP, CBC #### [facility] [address] [place], [place] [address] USAMonocytes/100 leukocytes in Blood by Automated count Ordered By: Fred Hernandez on 06-60-4157Unaqunkfr/100 WBC (Bld)10.9 %Normal. Doctors HospitalComment on above:Performed By: #### FRUC #### [facility] , #### BMP, CBC #### [facility] [address] [place] [address] USANeutrophils [#/volume] in Blood by Automated countOrdered By: Fred Hernandez on 98-81-7751Fickezgpeae (Bld) [#/Vol]3.3 10*3/uLNormal 1.8-7.7FMiami Valley HospitalComment on above:Performed By: #### FRUC #### [facility] , #### BMP, CBC #### [facility] [address] [place] [id number] USANeutrophils/100 leukocytes in Blood by Automated count Ordered By: Fred Hernandez on 60-14-8601Igmcgomuhmc/100 WBC (Bld)54.3 %Normal. Doctors HospitalComment on above:Performed By: #### FRUC #### [facility] , #### BMP, CBC #### [facility] [address] [place] [address] USANitrite Test strip Ql (U)Ordered By: Fred Hernandez on 83-02-4742Gckugib Ql (U)NegativeNegativeDoctors HospitalNo Panel InformationOrdered By: Fred Hernandez on 76-43-9531Avbjrcsp Creatinine Clearance (ChemN/[facility] Medical CenterNucleated erythrocytes [Presence] in Blood by Automated countOrdered By: Fred Hernandez on 11-01-2024 Nucleated RBC Auto Ql (Bld)0.1 /100{WBC}0-0.5FMiami Valley Hospital Platelet mean volume [Entitic volume] in Blood by Automated countOrdered By: Fred Hernandez on 68-45-5279Fsiyszam mean volume (Bld) [Entitic vol]7.3 fL Normal6.3-10.7FMiami Valley HospitalComment on above:Performed By: #### FRUC #### [facility] , #### BMP, CBC #### [facility] [address] [place] [address] USAPlatelets [#/volume] in Blood by Automated countOrdered By: Fred Hernandez on 45-20-4139Dtoocyasu (Bld) [#/Vol]209 10*3/aFSciiik316-474 Doctors HospitalComment on above:Performed By: #### FRUC #### [facility] , #### BMP, CBC #### [facility] [address] [place] [address] USAPotassium [Moles/volume] in Serum or PlasmaOrdered By: Fred Hernandez on 93-49-2480Ezmavmuai [Moles/Vol]4.3 mmol/LNormal3.5-5.1 Doctors HospitalComment on above:Performed By: #### FRUC #### [facility] , #### BMP, CBC #### [facility] [address] [place] [address] USAProtein Test strip (U) [Mass/Vol]Ordered By: Fred Hernandez on 52-09-9188Cthpzoq (U) [Mass/Vol]NegativeNegativeMercy Health Anderson Hospitalerum or plasma anion gap determinationOrdered By: Fred Hernandez on 52-61-2518Xxmmb gap [Moles/Vol]10.1 mmol/LNormal6.0-15.0Doctors HospitalComment on above:Performed By: #### FRUC #### [facility] , #### BMP, CBC #### [place] [address] USASodium [Moles/volume] in Serum or PlasmaOrdered By: Fred Hernandez on 63-12-4143Ynxhbo [Moles/Vol]137 mmol/CLucaow864-506GqtiuexloDoctors HospitalComment on above:Performed By: #### FRUC #### [facility] , #### BMP, CBC #### [facility] [address] [place] [address] USASpecific gravity Test strip (U) [Rel density]Ordered By: Fred Hernandez on 70-10-1033Fkoypuvs gravity (U) [Rel density]1.0181.001-1.030 Doctors HospitalUrea nitrogen [Mass/volume] in Serum or Plasma Ordered By: Fred Hernandez on 59-00-4470Uoff nitrogen [Mass/Vol]17 mg/dLNormal 7-Doctors HospitalComment on above:Performed By: #### FRUC #### [facility] , #### BMP, CBC #### [place] [address] USAUrinalysison 66-35-3338Iowgkietc,UrineNegativeNormal NegativeThe Caromont Health Physician GroupComment on above:Order Comment: Name Collection Type:: Clean-Voided MidstreamPerformed By: #### UA ####[address] [address] USAGlucose Ql (U)Normal NormalNormTampa Shriners Hospital Physician GroupComment on above:Order Comment: Name Collection Type:: Clean-Voided MidstreamPerformed By: #### UA ####[address] [address] USANitrite,UrineNegative NormalNegativeThe [facility] Health Physician GroupComment on above:Order Comment: Name Collection Type:: Clean-Voided MidstreamPerformed By: #### UA ####[address] [address] USAOccult Blood,Urine NegativeNormalNegativeThe Caromont Health Physician GroupComment on above:Order Comment: Name Collection Type:: Clean-Voided MidstreamResult Comment: PERFORMED BY: [facility] [address] [place] [id number] PATHOLOGIST SALES STORE CHECKER BRENT LOPEZ M.D.Performed By: #### UA ####[address] [address] USAProtein,UrineNegativeNormalNegativeMedical Center Clinic Physician GroupComment on above:Order Comment: Name Collection Type:: Clean-Voided MidstreamPerformed By: #### UA ####[address] [address] USASpecificy [place],Urine1.018Normal 1.001-1.030The [facility] Health Physician GroupComment on above:Order Comment: Name Collection Type:: Clean-Voided MidstreamPerformed By: #### UA ####[address] [address] [address] USAUrobilinogen,Urine NormalNormalNormTampa Shriners Hospital Physician GroupComment on above:Order Comment: Name Collection Type:: Clean-Voided MidstreamPerformed By: #### UA ####[address] [address] USAUrobilinogen Test strip (U) [Mass/Vol]Ordered By: Fred Hernandez on 55-93-0854Ujoejtkofpgc (U) [Mass/Vol]Normal mg/dLNormalDoctors HospitalpH of Urine by Test stripOrdered By: Fred Hernandez on 57-68-6497yE (U)5.5 [pH]Normal5.0-9.0 Doctors HospitalComment on above:Order Comment: Name Collection Type:: Clean-Voided MidstreamPerformed By: #### UA ####[facility] [address] [place] [address] USAOptical coherence tomography study reporton 85-89-4914ZYBFJohn J. Pershing VA Medical Center HealthcareRadiology Study observation (narrative)NOM HealthcareFollow-Upon 52-95-7824Stifkg-[id number] JasonUna Radha 1940 F Date Provider Department Center 10/21/2024 264-BERTHA MULTANI MP ORTHO MPORTHO No family history on file Level of Service:81224 LA OFFICE/OUTPATIENT ESTABLISHED LOW [facility] 20 MIN Reason for Visit and Comments: Follow-up [640082] - Pt c/o right armpit pain. Pt has had for a few months. Happened when carrying groceries. Pt says oral steroids have helped in the past with this pain Pain [136] - Pt c/o right armpit pain. Pt has had for a few months. Happened when carrying groceries. Pt says oral steroids have helped in the past with this painNormalUniversC[facility] Medicine Office/Clinic Noteon 00-37-4400Jcmogq Medicine Office/Clinic NoteFaclover hill hospital Medicine Office/Clinic Note Chief Complaint Acute Visit [...] a shoulder injury for which she was previouslyprescribed steroids, which were effective but caused gastrointestinal [...] charity, Topical, TID, 60 gram, Refill(s) 0, [facility]/pharmacy #[id number], 147, cm, 10/02/24 [...] medical support in addressing this problem. Your BMIand weight management will be followed at subsequent visits. 4. Nonsmoker (Z78.9: Other specified health status) Encouraged to continue as a non-smoker Ordered: Functional status assessed 1170F Medication list documented in medical record 1159F Review of all meds by a prescribing practitioner or clinical pharmacist documented in EHR 1160F Follow-up With When Contact Information Marlee Malcolm Within [address] [place] [address] [facility] (1) Additional Instructions: Rash of forearms Patient Education Rash, Adult, Aomu-xq-Zquj Problem List/Past Medical History Ongoing Asthma BMI [...] mg= 1 tab(s), Ora (more content not included)...[facility] Grant Medical CenterComment on above:Result Comment: Electronically Signed By: LEA WALLACE CNP\Date and Time Signed: 10/02/24 12:12 EDTLipid Panelon 29-67-3099Fziuousqsgo [Mass/Vol]112 mg/dLLow 120-200Dun[facility] Memorial HospitalComment on above:Performed By: #### [id number] ####[facility] Qjgqowbdof[address] [place] [address] Cholesterol in HDL [Mass/Vol]40 mg/dLInvalid Interpretation CodeDunlap Memorial HospitalComment on above:Result Comment: '>= 60 LOW RISK' '<= 40 HIGH RISK'Performed By: #### [id number] ####[facility] H[address]ubalrzq[address], [place] [address]Ylzvlrqcsff in LDL [Mass/Vol]58 mg/dL Normal<=129Dun[facility] Memorial HospitalComment on above:Performed By: #### [id number] ####[facility] Qfrkrcnark[address], [place] [address]Dbpvdctqctk in VLDL [Mass/Vol]33 mg/dLNormal7-40[facility] Comment on above:Performed By: #### [id number] ####[facility] [address]efsczn[address], [place] [address]Sboiicjarajm [Mass/Vol]163 mg/dLHigh <=149Dunlap Memorial HospitalComment on above:Performed By: #### [id number] ####[facility] [address]vffw[address] [place] [address] Ambulatory Visit Summaryon 36-01-4165Ypvrgvrwot Visit SummaryAmbulatory Visit Summary UNA GOMEZ :1940 Visit Date:09/09/2024 [...] Appointments Monday 8:40 AM EDT With: Where: [address] [address]- Monday 1:40 PM EST With: Marlee Martinez Where: [address] [phone]- [id number] 11:00 AM EDT With: Where: [address] [address]- You Need to Complete the Following Lipid Panel, Blood, Routine collect, 09/09/24, Order for future visit, Lab Collect, Hypercholesterolemia, Required & Missing, Print Label By Order Location BD Bone Density DEXA, 09/09/24, Routine, Order for Future Visit, Transport Mode: Ambulatory, Reason: Post menopausal, Ovarian failure due to menopause, No, 128, pp_set_radiology_subspecialty, Not Required, [facility] Medications What How Much When Why Instructions Unchanged acetaminophen (Tylenol Extra Strength) 500 Milligram By Mouth 2 times a day as needed foras needed for pain Unchanged albuterol (Albuterol (Eqv-ProAir [...] mg) oral capsule) 1 Capsules By Mouth 2times a week Pre-op exam Vitamin D deficiency Unchanged levothyroxine (levothyroxine 50 mcg (0.05 mg) Tab) See instructions TAKE 1 TABLET BY MOUTH EVERY DAY Unchanged meclizine (meclizine 25 mg Tab) 1 Tablets By Mouth Every 8 hours as needed for dizziness Unchanged metoprolol (metoprolol succinate 25 mg ER Tab) 1 Tablets By Mouth At bedtime Duration: 90Days Unchanged montelukast (montelukast 10 mg Tab) See [...] choosing us fo (more content not included)... [facility] Medicine Office/Clinic Noteon 09-09-2024 Family Medicine Office/Clinic NoteFall River Hospital Medicine Office/Clinic Note Chief Complaint Subsequent Medicare [...] of clutter to prevent tripping and/or falling. [place] Advance Directives reviewed, present at home. Encouraged [...] patient request, she will have completed at [facility] prior to next PCP visit. Mammogram: Patient [...] exercise regimen. When you are overweight our bodyproduces more lipids. Risk also increases with family history of hyperlipidemia and with monitoringalcohol use and avoid smoking. Pt voices understanding with importance of monitoring dietary intaketo reduce risk factors associated with CVA. Taking [...] and report to pro (more content not included)...[facility] Grant Medical CenterComment on above:Result Comment: Electronically Signed By: Marlee Martinez\.br\Date and Time Signed: 09/09/24 17:53 EDT\.br\Electronically Co-Signed By: Juliana Glez\.br\Date and Time Co- Signed: 09/09/24 13:48 EDTFPG ECG *CARDIOLOGY ONLY*on 31-39-8185BIY ECG *CARDIOLOGY ONLY*[facility] Main [place] [id number] Electrocardiograph Report Signed Patient: Una Gomez MR#: [id number] : 1940 Acct:[id number] Age/Sex: 84 / F ADM Date: 09/05/24 Loc: [facility] Room: Type: [facility] Attending Dr: Curtis Morales MD Ordering Provider: [...] ECG No previous ECGs available Confirmed by Cutris Morales ([id number]) on 09/09/2024 4:23:45 PM Referred By: Electronically Signed By: Curtis Morales Transcribed By: MUS Signed By Curtis Morales MD 09/09/[address] [place] [address] Physician GroupX-ray reportOrdered By: Rock Webster on 78-49-5983Wjads reportADENA REGIONAL MEDICAL [facility]ENTER Main [address] [address] XRay Report Signed Patient: Una Gomez MR#: [id number] : 1940 Acct:[id number] Age/Sex: 84 / F ADM Date: 5 Loc: ER Room: Type: [facility] ER Attending Dr: Copies to: Rosa M [...] Rock Webster DO 09/05/242043 Signed By: 09/05/242043 Doctors HospitalXR shoulder RT min 2V*on 67-91-2022WY shoulder RT min 2V*[facility] Main [place] [address] [place] [address] XRay Report Signed Patient: Una Gomez MR#: [id number] : 1940 Acct:[id number] Age/Sex: 84 / F ADM Date: 09/05/24 Loc: ER Room: Type: [facility] ER Attending Dr: Copies to: Rosa M [...] By: Rock Webster DO 09/05/242043 Signed By: 09/05/242043[facility] Physician GroupAmbulatory Visit Summaryon 34-92-1650Nowtqlmhxb Visit SummaryAmbulatory Visit Summary UNA GOMEZ :1940 Visit Date:08/29/2024 [...] Follow-Up Appointments Monday 11:00 AM EDT Where: [address] [address]- Medications What How Much When Why Instructions New ergocalciferol (Vitamin D 50,000 intl units (1.25 mg) oral capsule) 1 Capsules By Mouth 2 timesa week Pre-op exam Vitamin D deficiency Refills: 3 Pickup at [facility]/pharmacy #[id number] Unchanged acetaminophen (Tylenol Extra Strength) 500 Milligram By Mouth 2 times a day as needed foras needed for pain Unchanged albuterol (Albuterol (Eqv-ProAir [...] 1 Tablets By Mouth At bedtime Duration: 90Days Unchanged montelukast (montelukast 10 mg Tab) See instructions TAKE 1 TABLET BY MOUTH EVERY DAY Unchanged spironolactone (spironolactone 25 mg Tab) See instructions TAKE 1 TABLET BY MOUTH EVERY DAY Pharmacy Information [facility]/pharmacy #[id number]: [address] [place], [place] [phone] Allergies Augmentin (Unknown) Diflucan (Unknown) sulfa drugs [...] signed up for this yet, please contact [employer] at [phone] to get signed up today. Language Information Language assistance services are available as needed. [facility] Medicine Office/Clinic Noteon 52-18-3200Fiosjh Medicine Office/Clinic NoteFall River Hospital Medicine Office/Clinic Note Chief Complaint surgical clearance HPI Staff Patient is presenting for pre-surgical clearance Ortho - Dr. Hernandez at [facility] Pre-testing, labs done Concerns: Refills: unsure History [...] by Dr. Hernandez. all pre op testing reviewed.pt is cleared for surgery. will send letter with OV note. EKG was performed in office today. all questions answered. RTC as needed Ordered: ergocalciferol, 50,000 International_Unit = 1 cap(s), Oral, 2x/Wk, # 24 cap(s), Refills(s) 3, Pharmacy: [facility]/pharmacy #[id number], 147, cm, 08/29/24 14:41:00 EDT, Height/Length Dosing, 57.9, kg, 08/29/24 14:41:00 EDT, Weight Dosing ECG 12 Lead Adult [facility] External Ambulatory Referral 2. Vitamin D deficiency (E55.9: Vitamin D deficiency, unspecified) vitamin D sent in Ordered: ergocalciferol, 50,000 International_Unit = 1 cap(s), Oral, 2x/Wk, # 24 cap(s), Refills(s) 3, Pharmacy: [facility]/pharmacy #[id number], 147, cm, 08/29/24 14:41:00 EDT, Height/Length Dosing, 57.9, kg, 08/29/24 14:41:00 EDT, Weight Dosing [facility] External Ambulatory Referral 3. Left bundle branch block (I44.7: Left bundle-branch block, unspecified) PT WILL BE REFERRED TO [facility] FOR CARDIAC CLEARANCE FOR SURGERY Ordered: [facility] External Ambulatory Referral 4. Left atrial enlargement (I51.7: Cardiomegaly) ABNORMAL EKG IN OFFICE Ordered: [facility] External Ambulatory Referral 5. BMI 26.0-26.9,adult (Z68.26: [...] 50,000 intl units (1.25 mg) oral capsule, [address] International_Unit= 1 cap(s), Oral, 2x/Wk, 3 refills [...] virus vaccine, inactivated 12/14/2022 Recorded SARS-CoV-2 (COVID-19) mRNAMUL.ORD![id number] 02/10/2022 Recorded influenza virus vaccine, inactivated 12/27/2021 Recorded SARS-CoV-2 (COVID-19) mRNA-1273 vaccine 03/17/2021 Recorded 2022-07-04: TPV80 influenza virus vaccine, inactivated 02/10/2021 Recorded pneumococcal 23-valent vaccine 09/11/2020 Recorded SARS-CoV-2 (COVID-19) mRNA-1273 vaccine 05/05/2020 Recorded SARS-CoV-2 (COVID-19) mRNA-1273 (more content not included)...[facility] Grant Medical CenterComment on above:Result Comment: Electronically Signed By: Marlee Martinez\.br\Date and Time Signed: 08/29/24 15:48 EDTProvider Letteron 12-09-9865Pgtpvmug LetterProvider Letter [address] [place] [address] August 29, 2024 UNA GOMEZ [address] [place] [id number] : [address] Hernandez, The above patient has been evaluated at your request for preoperative clearance. After assessment of available pertinent labs and diagnostic tests, I feel this patient is medicallyoptimized for surgery. Final discretion of whether the patient is cleared for surgery remains up tothe surgeon/anesthesiologist. Thank you, Marlee Malcolm, [facility] CampusA1C with Estimated Average Gluon 23-53-7022Smtoplu [Mass/Vol]103 mg/dLNoUNC Health Caldwell Physician Group Comment on above:Result Comment: PERFORMED BY: [facility] [address] [place] [address] PATHOLOGIST SALES STORE CHECKER BRENT LOPEZ M.D.Performed By: #### MRSA - MSSA PCR, HGB, CSAB10SD, ALB, A1C WT eA ####[facility] Ebp[address]#### NICOTINE ####[facility] ,Albumin Levelon 22-56-7960Cfboami [Mass/Vol]4.3 g/dLNormal3.5-5.7The [facility] Physician GroupComment on above: Performed By: #### MRSA - MSSA PCR, HGB, LIVV29CG, ALB, A1C WT eA #### [facility] [address] #### NICOTINE #### [facility] ,Albumin [Mass/volume] in Serum or Plasma by Bromocresol green (BCG) dye binding methoOrdered By: Fred Hernandez on 93-42-2888Gnzknis BCG dye [Mass/Vol]4.3 g/dL3.5-5.7FMiami Valley HospitalBlood estimated average glucose determination by estimation from glycated hemoglobinOrdered By: Fred Hernandez on 48-85-0120Hkylumy glucose Estimated from glycated hemoglobin (Bld) [Mass/Vol] 103 mg/dLDoctors HospitalCotinine [Mass/volume] in Serum or PlasmaOrdered By: Fred Hernandez on 73-20-7980Meucxavh [Mass/Vol]<1.0 ng/mL. Doctors HospitalComment on above:This test was developed and its performance characteristicsdetermined by [employer]. It has not been cleared orapproved by the Food and Drug Administration.Cotinine levels greater than 20.0 are consistent with theuse of tobacco or tobacco cessation products.Performed at: [facility] [place], [place] [id number] Director: Kayleigh Lawrence MD, Phone: [phone] A1c/Hemoglobin.total in BloodOrdered By: Fred Hernandez on 37-70-3080YfJ3q (Bld) [Mass fraction]5.2 %Normal4.3-5.6FMiami Valley HospitalComment on above:Increased risk for diabetes: 5.7 - 6.4diabetes: >6.4glycemic control for adults with diabetes: <7.0Result Comment: Increased risk for diabetes: 5.7 - 6.4 diabetes: >6.4 glycemic control for adults with diabetes: <7.0Performed By: #### MRSA - MSSA PCR, HGB, [id number], ALB, A1C WTH eA ####[facility]#### NICOTINE ####[facility] ,Hemoglobin [Mass/volume] in BloodOrdered By: Fred Hernandez on 70-61-3809Rzsylfhpfq (Bld) [Mass/Vol]13.1 g/nMTlbpvf61.8-15.4FMiami Valley HospitalComment on above:Result Comment: PERFORMED BY: [facility] [address] [place] [address] PATHOLOGIST SALES STORE CHECKER BRENT LOPEZ M.D.Performed By: #### MRSA - MSSA PCR, HGB, [id number], ALB, A1C WTH eA #### [facility] [address] #### NICOTINE #### [facility] ,MRSA - MSSA Nasal PCRon 08-84-8206BQQB - MSSA Nasal PCRMRSA Result MRSA Negative MSSA Result MSSA Negative Real-time PCR Test performed by real-time PCR Reference Range Reference Range for all targets = Neg / Not Detected Reference Note 20 Reference Note 26 PERFORMED BY: [facility] [address] [place] [address] PATHOLOGIST SALES STORE CHECKER BRENT LOPEZ M.D.NormalMedical Center Clinic Physician GroupComment on above: Performed By: #### MRSA - MSSA PCR, HGB, [id number], ALB, A1C WTH eA ####[address]#### NICOTINE ####[facility] ,Nicotine [Mass/volume] in Serum or PlasmaOrdered By: Fred Hernandez on 68-03-8967Qzyioxlp [Mass/Vol]<1.0 ng/mL.Doctors HospitalComment on above:This test was developed and its performance characteristicsdetermined by [facility]. It has not been cleared orapproved by the Food and Drug Administration.Nicotine levels greater than 2.0 are consistent with theuse of tobacco or tobacco cessation products.Nicotine/Cotinine Bloodon 51-71-8793Qxrtnobl, Blood<1.0Normal.The [facility] Physician GroupComment on above:Result Comment: This test was developed and its performance characteristics determined by [facility]. It has not been cleared or approved by the Food and Drug Administration. Cotinine levels greater than 20.0 are consistent with the use of tobacco or tobacco cessation products. Performed at: [facility] [address] [id number] Legal Instructor: Kayleigh Lawrence MD, Phone: [phone] PERFORMED BY: [facility] [address] [place] [id number] PATHOLOGIST SALES STORE CHECKER BRENT LOPEZ M.D.Performed By: #### MRSA - MSSA PCR, HGB, [id number], ALB, A1C WTH eA ####[place] [address] [place]#### NICOTINE ####[facility] ,Nicotine, Blood<1.0Normal.The [facility] Physician GroupComment on above:Result Comment: This test was developed and its performance characteristics determined by [facility]. It has not been cleared or approved by the Food and Drug Administration. Nicotine levels greater than 2.0 are consistent with the use of tobacco or tobacco cessation products.Performed By: #### MRSA - MSSA PCR, HGB, [id number], ALB, A1C WTH eA ####[facility] Lvz[address]#### NICOTINE ####[facility] ,No Panel InformationOrdered By: Fred Hernandez on 93-93-7911Zovrm Screen MRSA/MSSA Doctors HospitalVitamin D 25 Hydroxy Totalon 19-58-0959Ezzorer D 25 Hydroxy Total20.1 ng/sDYma00-588Ydr [facility] Physician GroupComment on above:Result Comment: VITAMIN D STATUS 25(OH)VITAMIN D RANGE (ng/mL) Deficient <20 Insufficient 20 to <30 Sufficient 30 to 100 Reference: Wade IZQUIERDO,Divya MITCHELL, [place] VIDES, et al. Evaluation,treatment, and prevention of vitamin D deficiency; an Endocrine Society clinical practice guideline. JCEM. 2010; 96(7):1911-30. PERFORMED BY: [facility] [address] [place] [address] PATHOLOGIST SALES STORE CHECKER BRENT LOPEZ M.D.Performed By: #### MRSA - MSSA PCR, HGB, [id number], ALB, A1C WTH eA #### [facility] [address] #### NICOTINE #### [facility] ,Vitamin D+Metabolites [Mass/volume] in Serum or PlasmaOrdered By: Fred Hernandez on 45-06-8375Lrvyovk D+Metabolites [Mass/Vol]20.1 ng/tFYfp63-262 Doctors HospitalComment on above:VITAMIN D STATUS 25(OH)VITAMIN D RANGE (ng/mL) Deficient <20 Insufficient 20 to <25Qgrbebgouc37 to 100Reference: Eduardo Grantkley [place], La [place]ena VIDES, et al. Evaluation,treatment, and prevention of vitamin D deficiency; an Endocrine Society clinical practice guideline. JCEM. 2010; 96(7):1911-30.Ambulatory Visit Summaryon 58-09-0466Qbtrlnoqzg Visit SummaryAmbulatory Visit Summary UNA GOMEZ :1940 Visit Date:08/20/2024 [...] Follow-Up Appointments Monday 11:00 AM EDT Where: [place] [id number]- Medications What How Much When Instructions Unchanged acetaminophen (Tylenol Extra Strength) 500 Milligram By Mouth 2 times a day as needed foras needed for pain Unchanged albuterol (Albuterol (Eqv-ProAir [...] 1 Tablets By Mouth At bedtime Duration: 90Days Pickup at [facility]/pharmacy #6177 Unchanged montelukast (montelukast 10 mg Tab) See instructions TAKE 1 TABLET BY MOUTH EVERY DAY Unchanged spironolactone (spironolactone 25 mg Tab) See instructions TAKE 1 TABLET BY MOUTH EVERY DAY Pharmacy Information [facility]/pharmacy #6177: [address] [place], [place] [phone] Allergies Augmentin (Unknown) Diflucan (Unknown) sulfa drugs [...] you for choosing us for your care. [facility] Medical CenterCHEMISTRYOrdered By: SYSTEM SYSTEM on 26-03-6692Gducubg [Mass/Vol]4.2 g/dLNormal3.3 - 5.0 gm/dLRemisol Chem Albumin/Globulin [Mass ratio]1.8 {ratio}Normal1.1 - 2.2Remisol ChemALP [Catalytic activity/Vol]86 [iU]/mRserpn85 - 98 Int._Unit/LRemisol ChemALT No additional P-5'-P [Catalytic activity/Vol]17 [iU]/dNormal6 - 46 Int._Unit/L Remisol ChemAnion gap [Moles/Vol]10 mmol/LNormal6 - 16 mEq/LRemisol ChemAST [Catalytic activity/Vol]21 [iU]/dNormal5 - 43 Int._Unit/LRemisol ChemBilirubin [Mass/Vol]0.7 mg/dLNormal0.0 - 1.1 mg/dLRemisol ChemCalcium [Mass/Vol]9.5 mg/dL Normal8.9 - 11.1 mg/dLRemisol ChemChloride [Moles/Vol]104 mmol/QPktene713 - 111 mmol/LRemisol ChemCO2 [Moles/Vol]27 mmol/XZnpbpa95 - 31 mmol/LRemisol Chem Creatinine [Mass/Vol]0.6 mg/dLNormal0.5 - 1.3 mg/dLRemisol ChemGFR/1.73 sq M.predicted MDRD (S/P/Bld) [Vol rate/Area]87 mL/min/1.73 i8Mfdjxa>=59mL/min/1.73 a5Sbzvzrc ChemGlobulin (S) [Mass/Vol]2.4 g/dLNormal1.4 - 4.0 gm/dLRemisol Chem Glucose [Mass/Vol]124 mg/sTRhiofb26 - 199 mg/dLRemisol ChemPotassium [Moles/Vol] 4.2 mmol/LNormal3.5 - 5.3 mmol/LRemisol ChemProtein [Mass/Vol]6.6 g/dLNormal6.0 - 7.8 gm/dLRemisol ChemSodium [Moles/Vol]137 mmol/YKwfsfr493 - 145 mmol/LRemisol ChemTSH Qn1.36 m[IU]/LNormal0.34 - 5.60 mcIU/mLRemisol ChemUrea nitrogen [Mass/Vol]13 mg/dLNormal5 - 21 mg/dLRemisol ChemUrea nitrogen/Creatinine [Mass ratio]22 mg/hlCxfa83 - 20Remisol ChemCMPon 92-77-1047Ikmdbec [Mass/Vol]4.2 g/dL Normal3.3-5.0Dun[facility] Memorial HospitalComment on above:Performed By: #### [id number] #### [facility] [address] [place], [place] [address]Drpvmct/Globulin [Mass ratio]1.8 {ratio}Normal1.1-2.2FUpper Valley Medical CenterComment on above:Performed By: #### [id number] #### [facility] [address] [place], [place] [address]Tlb Phos86 Int._Unit/MMppscn26-81LtbqpdDunlap Memorial Hospital Comment on above:Performed By: #### [id number] #### [facility] [address] [place], [place] [address]FGZ80 Int._Unit/LNormal6-46Dun[facility] Memorial HospitalComment on above:Performed By: #### [id number] #### [facility] [address] [place], [place] [address]Ecwpn gap [Moles/Vol]10 mmol/LNormal6-16[facility] Memorial HospitalComment on above:Performed By: #### [id number] #### [facility] [address] [place], [place] [address]NSN39 Int._Unit/LNormal5-43[facility] Memorial HospitalComment on above:Performed By: #### [id number] #### [facility] [address] [place], [place] [address]Skdu Total0.7 mg/dLNormal0.0-1.1FUpper Valley Medical Center Comment on above:Performed By: #### [id number] #### [facility] [address] [place], [place] [address]XHJ/Creat Ratio22 No HyplmLybc75-08QvtqbzDunlap Memorial Hospital Comment on above:Performed By: #### [id number] #### [facility] [address] [place], [place] [address]Fmwenub [Mass/Vol]9.5 mg/dLNormal8.9-11.1FUpper Valley Medical CenterComment on above:Performed By: #### [id number] #### [facility] [address] [place], [place] [address]Eqhgsmkj [Moles/Vol]104 mmol/ZCaqkrs323-957GrlslqDunlap Memorial HospitalComment on above:Performed By: #### [id number] #### [facility] [address] [place], [place] [address]XK7 [Moles/Vol]27 mmol/GYgotgg75-90NmbpuvDunlap Memorial Hospital Comment on above:Performed By: #### [id number] #### [facility] [address] [place], [place] [address]Gsjwbsnljo [Mass/Vol]0.6 mg/dLNormal0.5-1.3FUpper Valley Medical CenterComment on above:Performed By: #### [id number] #### [facility] [address] [place], [place] [address]Fajsfhts (S) [Mass/Vol]2.4 g/dLNormal1.4-4.0Dun[facility] Memorial HospitalComment on above:Performed By: #### [id number] #### [facility] [address] [place], [place] [address]Ehfuyyk [Mass/Vol]124 mg/yFLbwfyf84-533GsmxigDunlap Memorial HospitalComment on above:Performed By: #### [id number] #### [facility] [address] [place], [place] [address]Vjqwppasc [Moles/Vol]4.2 mmol/LNormal3.5-5.3FUpper Valley Medical CenterComment on above:Performed By: #### [id number] #### [facility] [address] [place], [place] [address]Nqdlgrx [Mass/Vol]6.6 g/dLNormal6.0-7.8Dun[facility] Memorial HospitalComment on above:Performed By: #### [id number] #### [facility] [address] [place], [place] [address]Wqbhdb [Moles/Vol]137 mmol/LVwfith565-658HtkjiyDunlap Memorial HospitalComment on above:Performed By: #### [id number] #### [facility] [address] [place], [place] [address]Xvhx nitrogen [Mass/Vol]13 mg/dLNormal5-21Dun[facility] Memorial HospitalComment on above:Performed By: #### [id number] #### [facility] [address] [place], [place] [address]Wrdbot Medicine Office/Clinic Noteon 28-35-2054Qlwxyq Medicine Office/Clinic NoteFall River Hospital Medicine Office/Clinic Note Chief Complaint The patient presents with difficulty walking due to arthritis and hip pain. HPI Staff Una Eugenie) is an 84 year old female presenting for 6month med f/u, htn, thyroid As per [facility]- 02/13/24- lab recheck today Patient is here [...] conditions, including hypercholesterolemia, hypothyroidism, and primary hypertension, emphasizingthe importance of regular monitoring and medication adherence. [...] Cholecystectomy, Shoulder replace (more content not included)... NormalDunlap Memorial HospitalComment on above:Result Comment: Electronically Signed By: Francisco BELTRAN, Yaniv Sanabria.br\Date and Time Signed: 08/20/24 11:48 EDTTSH With T4fr Reflexon [id number] Qn1.36 m[IU]/LNormal0.34-5.60Dunlap Memorial HospitalComment on above:Performed By: #### [id number] #### [facility] [address] [place], [place] [address]cOVHab 74-72-5454yQSZ62 mL/min/1.73 b5Itpwok>=59Dunlap Memorial HospitalComment on above:Performed By: #### [id number] #### [facility] [address] [place], [place] [address]Ojmhoq Medicine Office/Clinic Noteon 57-14-9180Pnrrvj Medicine Office/Clinic NoteFaclover hill hospital Medicine Office/Clinic Note [facility] Staff Una is an 84 year [...] day(s), # 14 tab(s), Refills(s) 0, Pharmacy: [facility]/pharmacy #[id number], 147, cm, 08/01/24 [...] virus vaccine, inactivated 12/14/2022 Recorded SARS-CoV-2 (COVID-19) mRNAMUL.ORD![id number] 02/10/2022 Recorded influenza virus vaccine, inactivated 12/27/2021 [...] vaccine, inactivated 03/18/2015 Recorded influenza, whole 01/17/2005 [facility]Comment [facility]:Result Comment: Electronically Signed By: Francisco BELTRAN, Yaniv Sanabria.br\Date and Time Signed: 08/01/24 14:24 EDTOffice Visiton 00-24-1612Qtgnof-up [id number] Una Gomez 1940 F Date Provider Department Center 07/24/2024 425-CRISSY SCHULER MP [facility] Medical Pavi No family history on file Level of Service:78125 LA OFFICE/OUTPATIENT NEW LOW MDM 30 MINUTES (GC) Reason for Visit and Comments: Hip Pain [493150] - Right Leg Pain [019794] - RightNormalUniversity of [facility] Harker HeightsOptical coherence tomography study reporton [id number] Johnson Regional Hospital Radiology Study observation (narrative)NOMS HealthcareAmbulatory Visit Summaryon [id number] Visit SummaryAmbulatory Visit Summary UNA GOMEZ :1940 Visit Date:05/20/2024 [...] PM EDT With: Yaniv Singh MD Where: [address] [address]- Monday 11:00 AM EDT With: Where: [address] [address]- Medications What How Much When Instructions Unchanged acetaminophen (Tylenol Extra Strength) 500 Milligram By Mouth 2 times a day as needed foras needed for pain Unchanged albuterol (Albuterol (Eqv-ProAir [...] 1 Tablets By Mouth At bedtime Duration: 90Days Unchanged montelukast (montelukast 10 mg Tab) See [...] you for choosing us for your care. [facility] Medicine Office/Clinic Noteon 47-72-5274Vpvhhc Medicine Office/Clinic NoteFall River Hospital Medicine Office/Clinic Note HPI Staff Una is [...] day(s), # 6 tab(s), Refills(s) 0, Pharmacy: [facility]/pharmacy #[id number], 147, cm, 05/20/24 10:52:00 EDT, Height/Length Dosing, 58.5, kg, 05/20/24 10:52:00 EDT, Weight Dosing brompheniramine/dextromethorphan/PSE, 5 mL, Oral, QID for cough and congestion, 200 mL, Refill(s) 0, [id number], 147, cm, 05/20/24 10:52:00 EDT, Height/Length Dosing, 58.5, kg, 05/20/24 10:52:00 EDT, Weight Dosing methylPREDNISolone, = 1 packet(s), Oral, As Directed, as directed on package labeling, X 6 day(s), # 21 tab(s), Refills(s) 0, Pharmacy: [facility]/pharmacy #[id number], 147, cm, 05/20/24 10:52:00 EDT, Height/Length Dosing, 58.5, kg, 05/20/24 10:52:00 EDT, Weight Dosing 2. Cough, (R05.9: Cough, unspecified)Cough covid and flu both negative Ordered: azithromycin, = 1 packet(s), Oral, As Directed, as directed on package labeling, X 5 day(s), # 6 tab(s), Refills(s) 0, Pharmacy: [facility]/pharmacy #[id number], 147, cm, 05/20/24 10:52:00 EDT, Height/Length Dosing, 58.5, kg, 05/20/24 10:52:00 EDT, Weight Dosing brompheniramine/dextromethorphan/PSE, 5 mL, Oral, QID for cough and congestion, 200 mL, Refill(s) 0, [facility]/pharmacy #[id number], 147, cm, 05/20/24 10:52:00 EDT, Height/Length Dosing, 58.5, kg, 05/20/24 10:52:00 EDT, Weight Dosing methylPREDNISolone, = 1 packet(s), Oral, As Directed, as directed on package labeling, X 6 day(s), # 21 tab(s), Refills(s) 0, Pharmacy: [facility]/pharmacy #[id number], 147, cm, 05/20/24 10:52:00 EDT, Height/Length Dosing, 58.5, kg, 05/20/24 10:52:00 EDT, Weight Dosing Influenza Type A&B POC 89018 Rapid COVID POC 78084 3. BMI 27.0-27.9,adult (Z68.27: Body mass index [BMI] 27.0-27.9, adult) BMI education given Ordered: azithromycin, = 1 packet(s), Oral, As Directed, as directed on package labeling, X 5 day(s), # 6 tab(s), Refills(s) 0, Pharmacy: [facility]/pharmacy #[id number], 147, cm, 05/20/24 10:52:00 EDT, Height/Length Dosing, 58.5, kg, 05/20/24 10:52:00 EDT, Weight Dosing brompheniramine/dextromethorphan/PSE, 5 mL, Oral, QID for cough and congestion, 200 mL, Refill(s) 0, [facility]/pharmacy #[id number], 147, cm, 05/20/24 10:52:00 EDT, Height/Length Dosing, 58.5, kg, 05/20/24 10:52:00 EDT, Weight Dosing methylPREDNISolone, = 1 packet(s), Oral, As Directed, as directed on package labeling, X 6 day(s), # 21 tab(s), Refills(s) 0, Pharmacy: [facility]/pharmacy #[id number], 147, cm, 05/20/24 10:52:00 EDT, Height/Length Dosing, 58.5, kg, 05/20/24 10:52:00 EDT, Weight Dosing 4. Non-smoker (Z78.9: Other specified health status) continue not smoking Ordered: azithromycin, = 1 packet(s), Oral, As Directed, as directed on package labeling, X 5 day(s), # 6 tab(s), Refills(s) 0, Pharmacy: [facility]/pharmacy #[id number], 147, cm, 05/20/24 10:52:00 EDT, Height/Length Dosing, 58.5, kg, 05/20/24 10:52:00 EDT, Weight Dosing brompheniramine/dextromethorphan/PSE, 5 mL, Oral, QID for cough and congestion, 200 mL, Refill(s) 0, [facility]/pharmacy #[id number], 147, cm, 05/20/24 10:52:00 EDT, Height/Length Dosing, 58.5, kg, 05/20/24 10:52:00 EDT, Weight Dosing methylPREDNISolone, = 1 packet(s), Oral, As Directed, as directed on package labeling, X 6 day(s), # 21 tab(s), Refills(s) 0, Pharmacy: [facility]/pharmacy #[id number], 147, cm, 05/20/24 10:52:00 EDT, Height/Length Dosing, 58.5, kg, 05/20/24 10:52:00 EDT, Weight Dosing Orders: levothyroxine, See Instructions, TAKE 1 TABLET BY MOUTH EVERY DAY, # 90 tab(s), Refills(s) 1, Pharmacy: [facility]/pharmacy #[id number], 147, cm, 05/20/24 10:52:00 EDT, Height/Length Dosing, 58.5, (more content not included)...[facility] CenterComment on above:Result Comment: Electronically Signed By: Marlee Martinez\.br\Date and Time Signed: 05/20/24 11:06 EDTAmbulatory Visit Summary on 20-49-6527Sgovfwhlxh Visit SummaryAmbulatory Visit Summary UNA GOMEZ :1940 Visit Date:05/13/2024 [...] EDT With: Francisco BELTRAN, Yaniv Pope Where: [address] [id number]- Monday 11:00 AM EDT With: Where: [address] [address]- Medications What How Much When Instructions Unchanged acetaminophen (Tylenol Extra Strength) 500 Milligram By Mouth 2 times a day as needed foras needed for pain Unchanged albuterol (Albuterol (Eqv-ProAir [...] 1 Tablets By Mouth At bedtime Duration: 90Days Unchanged montelukast (montelukast 10 mg Tab) See [...] you for choosing us for your care. [facility] Medicine Office/Clinic Noteon 42-25-1672Xtgdhg Medicine Office/Clinic NoteFall River Hospital Medicine Office/Clinic Note Chief Complaint Foot pain The patient presents with pain in the right pinky toe, which is now growing underneath the adjacenttoe. HPI Staff Una is a 84 year [...] but callus formation could pose a risk. Thepatient has not yet used pharmacological interventions for [...] deformity derived from polio in her right pinkytoe. Motrin will be prescribed to help reduce pain and any associated swelling. It is important to manage potential callus formation, as this might lead to infection. Discussion also highlighted the need for consultation with a specialist regarding fitting for suitable footwear, [facility] [place] be made due to [...] to her footwear needs, I advised contacting [facility] [place] 2] as soon as they resume operations, to arrange a fitting for specialized shoes. We noted the callus could potentially lead to infection if untreated, though there are currently no signs of infection. We will re- evaluate and consider further interventions if symptoms persist [...] mg Tab, See Instructions, (more content not included)...Normal Dunlap Memorial HospitalComment on above:Result Comment: Electronically Signed By: Francisco BELTRAN, Yaniv Pope\.br\Date and Time Signed: 05/13/24 13:49 EDTX-ray reportOrdered By: Nory Jarrett on [id number] reportADENA REGIONAL [facility] [address] [place] [address] XRay Report Signed Patient: Una Gomez MR#: [id number] : 1940 Acct:[id number] Age/Sex: 84 / F ADM Date: 5 Loc: [facility] Room: Type: [facility] Attending Dr: Fred Hernandez II, MD [...] right hip were obtained. There is no acutefracture or dislocation. There is moderate to severe narrowing of the hip joint spaces bilaterally though minimally worse on the right. There is also marginal spurring at the periphery of the femoralheads and superior acetabula. There is mild sclerosis at the SI joints. Dextroscoliotic curvature and degenerative changes are seen at the lower imaged lumbar spine. There are no significant soft tissue abnormalities. XR/XR hip RT min 2V(w/wo pelvis)* IMPRESSION: DEGENERATIVE CHANGE INVOLVING BOTH HIPS, SLIGHTLY WORSE ON THE RIGHT. Impression dictated by: Nory Jarrett M.D.05/08/2024 4:04 PM Dictation Location: [place] [address] Transcribed By: NURYS 05/08/24 1604 Dictated By: Nory Jarrett MD 05/08/24 1602 Signed By: 05/08/24 1604 [facility] Work Phone: XR hip RT min 2V(w/wo pelvis)*on [id number] hip RT min 2V(w/wo pelvis)*[facility] [address] [place] [address] XRay Report Signed Patient: Una Gomez MR#: [id number] : 1940 Acct:[id number] Age/Sex: 84 / F ADM Date: 05/08/24 Loc: [facility] Room: Type: [facility] Attending Dr: Fred Hernandez II, MD [...] Nory Jarrett M.D.05/08/2024 4:04 PM Dictation Location: [place] [address] Transcribed By: [facility] 05/08/24 1604 Dictated By: Nory Jarrett MD 05/08/24 1602 Signed By: 05/08/24 1604[facility] GroupFaclover hill hospital Medicine Office/Clinic Noteon 69-71-2669Cntgbk Medicine Office/Clinic NoteFami Medicine Office/Clinic Note Chief Complaint Rt Leg [...] of 5 while walking and resolves upon sitting.The pain increases during organ playing, attributed to weight shifting and movement. The patient conveyed concerns about the potential for arthritis, with a belief that this issue might stem from thehip joint as the pain initiates in the [...] home and fear of being dizzy. Ordered: [facility] External Ambulatory Referral 2. BMI 27.0-27.9,adult (Z68.27: Body mass index [BMI] 27.0-27.9, adult) Monitor weight and provide guidance on maintaining a healthy BMI through balanced diet and exercise, as discussed with the patient. Ordered: [facility] External Ambulatory Referral 3. Overweight (BMI 25.0-29.9) (E66.3: Overweight) Reinforce healthy lifestyle modifications, including diet and physical activity, to maintain or reduce weight and improve overall health, considering the patient's age and mobility status. Ordered: [facility] External Ambulatory Referral 4. 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 Ordered: [facility] External Ambulatory Referral 5. 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 Continuation of current routine, with consideration for orthopedic assessment if functional concerns arise. Ordered: [facility] External Ambulatory Referral 6. Nonsmoker (Z78.9: Other [...] management options including Tylen (more content not included)...[facility] CenterComment on above:Result Comment: Electronically Signed By: Yaniv Singh MD\.br\Date and Time Signed: 04/08/24 11:14 ESTOptical coherence tomography study reporton [id number] HealthcareRadiology Study observation (narrative)NOMS HealthcareAmbulatory Visit Summaryon 16-04-3333Aipwwdpmzt Visit SummaryAmbulatory Visit Summary UNA GOMEZ :1940 Visit Date:02/13/2024 [...] EDT With: Francisco BELTRAN, Yaniv Pope Where: [address] [address]- Monday 11:00 AM EDT With: Where: [address] [address]- Medications What How Much When Why Instructions New methylPREDNISolone (Medrol Dosepack 4 mg Tab) 1 Packets By Mouth As Directed Primary hypertension Hypothyroidism BMI 27.0-27.9,adult Overweight Nonsmoker Osteoarthritis of hip Left sciatic nerve pain Post-poliomyelitis muscular atrophy Nasal congestion Duration: 6 Days as directed on package labeling Pickup at [facility]/pharmacy #6351 Unchanged acetaminophen (Tylenol Extra Strength) 500 Milligram By Mouth 2 times a day as needed foras needed for pain Unchanged albuterol (Albuterol (Eqv-ProAir [...] TABLET BY MOUTH EVERY DAY Pharmacy Information [facility]/pharmacy #6177: [address] [place], [place] [phone] Allergies Augmentin (Unknown) Diflucan (Unknown) sulfa drugs [...] you for choosing us for your care. [facility] Medicine Office/Clinic Noteon 11-26-8870Xrvisb Medicine Office/Clinic NoteFall River Hospital Medicine Office/Clinic Note HPI Staff Una is [...] day(s), # 21 tab(s), Refills(s) 0, Pharmacy: [facility]/pharmacy #6177, 147, cm, 02/13/24 [...] # 21 tab(s), Refills(s) 0, [facility] 147, cm, 02/13/24 10:53:00 EST, Height/Length [...] # 21 tab(s), Refills(s) 0, [facility], 147, cm, 02/13/24 10:53:00 EST, Height/Length [...] # 21 tab(s), Refills(s) 0, [facility], 147, cm, 02/13/24 10:53:00 EST, Height/Length [...] mm Hg (Most Recent (more content not included)...[facility] Medical CenterComment on above:Result Comment: Electronically Signed By: Yaniv Singh MD\.br\Date and Time Signed: 02/13/24 11:19 ESTAmbulatory Visit Summaryon 45-71-8723Mzwhsqkpwb Visit SummaryAmbulatory Visit Summary UNA GOMEZ :1940 Visit Date:01/16/2024 [...] EST With: Francisco BELTRAN, Yaniv Pope Where: [address] [address]- Monday 11:00 AM EDT With: Where: [address] [address]- Medications What How Much When Why Instructions New methylPREDNISolone (Medrol Dosepack 4 mg Tab) 1 Packets By Mouth As Directed Cellulitis Left sciatic nerve pain Duration: 6 Days as directed on package labeling Pickup at [facility]/pharmacy #9840 Unchanged acetaminophen (Tylenol Extra Strength) 500 Milligram By Mouth 2 times a day as needed foras needed for pain Unchanged albuterol (Albuterol (Eqv-ProAir [...] Nonsmoker Pharmacy Information [facility]: [address] [place], [place] [phone] Allergies Augmentin (Unknown) Diflucan (Unknown) sulfa drugs [...] person's weight is (more content not included)... [facility] Medicine Office/Clinic Noteon 01-16-2024 Family Medicine Office/Clinic NoteFami Medicine Office/Clinic Note Chief Complaint 1wk follow [...] day(s), # 21 tab(s), Refills(s) 0, [facility], 147, cm, 01/16/24 11:11:00 EST, Height/Length [...] day(s), # 21 tab(s), Refills(s) 0, [facility], 147, cm, 01/16/24 11:11:00 EST, Height/Length [...] virus vaccine, inactivated 12/14/2022 Recorded SARS-CoV-2 (COVID-19) mRNAMUL.ORD![id number] 02/10/2022 Recorded influenza virus vaccine, inactivated 12/27/2021 Recorded SARS-CoV-2 (COVID-19) mRNA-1273 vaccine 03/17/2021 Recorded 2022-07-04: TPV80 influenza virus vaccine, inactivated 02/10/2021 Recorded pneumococcal 23-valent vaccine 09/11/2020 Recorded SARS-CoV-2 (COVID-19) mRNA-1273 vaccine 05/05/2020 Recorded SARS-CoV-2 (COVID-19) mRNA-1273 vaccine 04/07/2020 Recorded pne (more content not included)...[facility] Medical CenterComment on above:Result Comment: Electronically Signed By: Francisco BELTRAN, Yaniv Sanabria.br\Date and Time Signed: 01/16/24 11:28 ESTFamily Medicine Office/Clinic Noteon 01-08-2024 Family Medicine Office/Clinic NoteFamily Medicine Office/Clinic Note HPI Staff Una is [...] sleeping last night, rated it a 9 lastnight but only a 3 right now History [...] will work on topical antibiotic cream with petroleumjelly to help protect the skin. Will continue [...] tobacco concerns: No. Ye (more content not included)...[facility] Medical CenterComment on above:Result Comment: Electronically Signed By: Francisco BELTRAN, Yaniv Sanabria.br\Date and Time Signed: 01/08/24 14:52 ESTAmbulatory Visit Summaryon 59-60-0705Effdecfdtr Visit SummaryAmbulatory Visit Summary UNA GOMEZ :1940 Visit Date:01/03/2024 [...] AM EST With: Yaniv Singh MD Where: [address] [address]- Monday 11:00 AM EDT With: Where: [address] [address]- Medications What How Much When Why Instructions New triamcinolone topical (triamcinolone Top 0.1% Crm 15 gram) 1 Application Topical 3 times a day BMI 27.0-27.9,adult Overweight with body mass index (BMI) of 27 to 27.9 in adult [facility]onsmoker [facility] Unchanged acetaminophen (Tylenol Extra Strength) 500 Milligram By Mouth 2 times a day as needed foras needed for pain Unchanged albuterol (Albuterol (Eqv-ProAir [...] By Mouth Every 12 hours Pickup at [facility]/pharmacy #6155 Unchanged digoxin (digoxin 125 mcg (0.125 mg) [...] TABLET BY MOUTH EVERY DAY [facility] Information [facility]: [address] [place], [place] [phone] Allergies Augmentin (Unknown) Diflucan (Unknown) sulfa drugs [...] you for choosing us for your care. [facility] Medicine Office/Clinic Noteon 86-27-6166Jvhqro Medicine Office/Clinic NoteFall River Hospital Medicine Office/Clinic Note Chief Complaint Possible Infection [...] q12hr, # 20 cap(s), Refills(s) 0, Pharmacy: [facility] #[facility]177, 147, cm, 01/03/24 11:43:00 EDT, Height/Length [...] virus vaccine, inactivated 12/14/2022 Recorded SARS-CoV-2 (COVID-19) mRNAMUL.ORD![id number] (more content not included)... [facility] CenterComment on above:Result Comment: Electronically Signed By: Marlee Martinez\.br\Date and Time Signed: 01/03/24 12:21 WVV20qg [id number] dig level from 12/11/2023: FRANSISCO Blake MA Please let her know her digoxin level looks good. Thanks Patient informed.[facility] - WestCHEMISTRYOrdered By: SYSTEM SYSTEM on 79-33-0468Fquivxc Lvl0.6 ng/mLNormal0.5 - 1.9 ng/mLRemisol Chem Digoxinon 17-05-6614Kztktdy Lvl0.6 ng/mLNormal0.5-1.9[facility] Comment on above:Performed By: #### [id number] ####[facility] [address] [place] [place]wil[place], [place] [address]Aqjjtk Visiton 26-44-6162Rcpifd-up [id number] EllisUna paniagua Radha 1940 F Date Provider Department Center 11/30/2023 MELISSA DELACRUZ [facility]ARD [facility] No family history on file Level of Service:33092 LA OFFICE/OUTPATIENT ESTABLISHED LOW MDM 20 [facility] HospitalOpt[facility] coherence tomography study reporton [id number] HealthcareRadiology Study observation (narrative) NOM[facility] HealthcareAmbulatory Visit Summaryon 83-65-4499Uhtowozhqn Visit Summary Ambulatory Visit Summary UNA GOMEZ [...] EST With: Francisco BELTRAN, Yaniv Pope Where: [facility] [address] [place] [address]- \.br\ Medications\.br\ What How Much When Instructions\.br\ Unchanged acetaminophen (Tylenol Extra Strength) 500 Milligram By Mouth 2 times a day as needed for as needed for pain Contact prescribing physician if questions or concerns \.br\ Unchanged albuterol (Albuterol (Eqv-ProAir HFA) 90 mcg/ inh inhalation aerosol) See instructions TAKE 2PUFFS EVERY 4 HOURS NEEDED Contact prescribing physician if questions or concerns \.br\ Unchanged aspirin 81 Milligram By Mouth Every day Contact prescribing physician if questions or concerns \.br\ Unchanged budesonide- formoterol (Symbicort) 80/4.5 Inhalation 2 times a day Contact prescribing ph ysician if questions or concerns \.br\ Unchanged calcium carbonate (Tums) Chewed Every day Contact prescribing physician if questions or concerns \.br\ Unchanged candesartan (Atacand 4 mg Tab) 1 Tablets By Mouth Every day Contact prescribing physician if questions or concerns \.br\ Unchanged celecoxib (celecoxib 200 mg Cap) See instructions TAKE 1 CAPSULE BY MOUTH TWICE A DAY NEEDED FOR PAIN Co ntact prescribing physician if questions or concerns \.br\ Unchanged digoxin (digoxin 125 mcg (0.125 mg) Tab) 1 Tablets By Mouth Every day Duration: 90 Days Contact prescribing physician if questionsor concerns \.br\ Unchanged levothyroxine (levothyroxine 50 mcg (0.05 mg) Tab) 1 Tablets By Mouth Every day Contact prescribing physician if questions or concerns \.br\ Unchanged meclizine (ydimqmuxb96 mg Tab) 1 Tablets By Mouth Every [...] treatment for.\.br\ Asthma\.br\ Cervical spondylosis\.br\ Diverticular disease\.br\ Footdrop\.br\ Hypercholesterolemia\.br\ Hypothyroidism\.br\ Knee pain, left\.br\ Left sciatic nerve pain\.br\ Lumbar spondylosis\.br\ Murmur\.br\ Nasal congestion\.br\ Non-seasonal allergic rhinitis due to pollen\.br\ Osteoarthritis of hip\.br\ Osteopenia\.br\ Over weight\.br\ Post-poliomyelitis muscular atrophy\.br\ Primary hypertension\.br\ Restless legs syndrome\.br\ Right upper quadrant pain\.br\Shoulder pain, right\.br\ Squamous cell carcinoma in situ\.br\ Steatosis of liver\.br\ Thoracic spondylosis\.br\ Patient Survey\.br\ You may receive a survey via text or e-mail asking about your office visit. Please share your experience with us by completing your survey. We appreciate your feedback and thank you for choosing us for your care.\.br\ \.br\[facility] Medicine Office/Clinic Noteon 67-79-1869Twvvop Medicine Office/Clinic NoteFamily Medicine Office/Clinic Note HPI Staff Una is [...] to not smoke. Orders: Lab Specimen Collect [id number] Lipid Panel Follow-up No qualifying data available [...] virus vaccine, inactivated 12/14/2022 Recorded SARS-CoV-2 (COVID-19) mRNAMUL.ORD![id number] 02/10/2022 Recorded influenza virus vaccine, inactivated 12/27/2021 Recorded SARS-CoV-2 (COVID-19) mRNA-1273 vaccine 03/17/2021 Recorded 2022-07-04: TPV80 influenza virus vaccine, inactivated 02/10/2021 Recorded pneumoco (more content not included)...[facility] CenterComment on above:Result Comment: Electronically Signed By: Francisco BELTRAN, Yaniv Sanabria.br\Date and Time Signed: 09/19/23 10:30 EDTCHEMISTRYOrdered By: SYSTEM SYSTEM on 01-50-0826Tvxorcu [Mass/Vol]4.5 g/dLNormal3.3 - 5.0 gm/dLRemisol Chem Albumin/Globulin [Mass ratio]1.6 {ratio}Normal1.1 - 2.2Remisol ChemALP [Catalytic activity/Vol]81 [iU]/qFbldsw34 - 98 Int._Unit/LRemisol ChemALT No additional P-5'-P [Catalytic activity/Vol]23 [iU]/dNormal6 - 46 Int._Unit/L Remisol ChemAnion gap [Moles/Vol]11 mmol/LNormal6 - 16 mEq/LRemisol ChemAST [Catalytic activity/Vol]25 [iU]/dNormal5 - 43 Int._Unit/LRemisol ChemBilirubin [Mass/Vol]1.4 mg/dLHigh0.0 - 1.1 mg/dLRemisol ChemCalcium [Mass/Vol]9.4 mg/dL Normal8.9 - 11.1 mg/dLRemisol ChemChloride [Moles/Vol]105 mmol/EQauxag863 - 111 mmol/LRemisol ChemCholesterol [Mass/Vol]105 mg/dWAxy505 - 200 mg/dLRemisol Chem Cholesterol in HDL [Mass/Vol]32 mg/dLInvalid Interpretation CodeRemisol Chem Comment on above:Result Comment: '>= 60 LOW RISK' '<= 40 HIGH RISK'Cholesterol in LDL [Mass/Vol]60 mg/dLNormal<=129mg/dLRemisol ChemCholesterol in VLDL [Mass/Vol]28 mg/dLNormal7 - 40 mg/dLRemisol ChemCO2 [Moles/Vol]25 mmol/LHddwbz84 - 31 mmol/LRemisol ChemCreatinine [Mass/Vol]0.7 mg/dLNormal0.5 - 1.3 mg/dLRemisol YxxxwATV73 mL/min/1.73 i9Qhvuam>=59mL/min/1.73 t3Jbrstet ChemGlobulin (S) [Mass/Vol]2.8 g/dLNormal1.4 - 4.0 gm/dLRemisol Chem Glucose [Mass/Vol]96 mg/lGRbkphf96 - 199 mg/dLRemisol ChemPotassium [Moles/Vol] 4.1 mmol/LNormal3.5 - 5.3 mmol/LRemisol ChemProtein [Mass/Vol]7.3 g/dLNormal6.0 - 7.8 gm/dLRemisol ChemSodium [Moles/Vol]137 mmol/IAkejiy257 - 145 mmol/LRemisol ChemTriglyceride [Mass/Vol]142 mg/dLNormal<=149mg/dLRemisol ChemTSH Qn1.34 m[IU]/LNormal0.34 - 5.60 mcIU/mLRemisol ChemUrea nitrogen [Mass/Vol]19 mg/dL Normal5 - 21 mg/dLRemisol ChemUrea nitrogen/Creatinine [Mass ratio]27 mg/mgHigh 10 - 20Remisol ChemCMPon 72-38-6126Sczktmx [Mass/Vol]4.5 g/dLNormal3.3-5.0JaradSt. Agnes HospitalComment on above:Performed By: #### [id number] #### [facility] [address] [place], [place] [address]Wriuurf/Globulin (S) [Mass conc ratio]1.9Xijpii3.1-2.2FUpper Valley Medical CenterComment on above:Performed By: #### [id number] #### [facility] [address] [place], [place] [address]XYS [Catalytic activity/Vol]81 Int._Unit/HVlbzzj12-40SkdosrDunlap Memorial HospitalComment on above:Performed By: #### [id number] #### [facility] [address] [place], [place] [address]YRL No additional P-5'-P [Catalytic activity/Vol]23 Int._Unit/L Normal6-46[facility] Memorial HospitalComment on above:Performed By: #### [id number] #### [facility] [address] [place] [address]Bbbxr gap [Moles/Vol]11 mmol/LNormal6-16[facility] Memorial HospitalComment on above:Performed By: #### [id number] #### [facility] [address] [place] [address]QXV [Catalytic activity/Vol]25 Int._Unit/LNormal5-43[facility] Memorial HospitalComment on above:Performed By: #### [id number] #### [facility] [address] [place] [address]Xclelovnq [Mass/Vol]1.4 mg/dLHigh0.0-1.1FUpper Valley Medical CenterComment on above:Performed By: #### [id number] #### [facility] [address] [place], [place] [address]Ibxjdji [Mass/Vol]9.4 mg/dLNormal8.9-11.1FUpper Valley Medical CenterComment on above:Performed By: #### [id number] #### [facility] [address] [place] [address]Yharthgw [Moles/Vol]105 mmol/LPuqteh796-994NsznftDunlap Memorial HospitalComment on above:Performed By: #### [id number] #### [facility] [address] [place], [place] [address]CR9 [Moles/Vol]25 mmol/CCbuzhj75-81PmeoagDunlap Memorial Hospital Comment on above:Performed By: #### [id number] #### [facility] [address] [place], [place] [address]Eeydgxqcvn [Mass/Vol]0.7 mg/dLNormal0.5-1.3FUpper Valley Medical CenterComment on above:Performed By: #### [id number] #### [facility] [address] [place], [place] [address]Bcjmgcdd (S) [Mass/Vol]2.8 g/dLNormal1.4-4.0Dun[facility] Memorial HospitalComment on above:Performed By: #### [id number] #### [facility] [address] [place], [place] [address]Dnmpgyi [Mass/Vol]96 mg/tIVsijpd39-519LfvcfmDunlap Memorial HospitalComment on above:Performed By: #### [id number] #### [facility] [address], [place] [address]Hojswtgce [Moles/Vol]4.1 mmol/LNormal3.5-5.3FUpper Valley Medical CenterComment on above:Performed By: #### [id number] #### [facility] [address] [place], [place] [address]Aroujaq [Mass/Vol]7.3 g/dLNormal6.0-7.8[facility] Memorial HospitalComment on above:Performed By: #### [id number] #### [facility] [address] [place], [place] [address]Eldxwu [Moles/Vol]137 mmol/DJpkluh670-668YfzzqpDunlap Memorial HospitalComment on above:Performed By: #### [id number] #### [facility] [address] [place], [place] [address]Arll nitrogen [Mass/Vol]19 mg/dLNormal5-21[facility] Memorial HospitalComment on above:Performed By: #### [id number] #### [facility] [address], [place] [address]Lusx nitrogen/Creatinine [Mass ratio]27 No LxtinRjfw23-33DgqkijDunlap Memorial HospitalComment on above:Performed By: #### [id number] #### [facility] [address] [place], [place] [address]Rpihu Panelon 94-71-1242Kvsqxnyufew [Mass/Vol]105 mg/dLLow 120-200Dun[facility] Memorial HospitalComment on above:Performed By: #### [id number] #### [facility] [address] [place], [place] [address]Zgvigrdjfrl in HDL [Mass/Vol]32 mg/dLInvalid Interpretation CodeDunlap Memorial HospitalComment on above:Result Comment: '>= 60 LOW RISK' '<= 40 HIGH RISK'Performed By: #### [id number] #### [facility] [address] [place], [place] [address]Gnucjcqdykj in LDL [Mass/Vol]60 mg/dLNormal<=129Dunlap Memorial HospitalComment on above:Performed By: #### [id number] #### [facility] [address] [place], [place] [address]Byjtzibsxjn in VLDL [Mass/Vol]28 mg/dLNormal7-40Dun[facility] Memorial HospitalComment on above:Performed By: #### [id number] #### [facility] [address] [place], [place] [address]Datjeoxbxpmi [Mass/Vol]142 mg/dLNormal<=149Dun[facility] Memorial HospitalComment on above:Performed By: #### [id number] #### [facility] [address] [place], [place] [address]XIV With T4fr Reflexon 60-93-1376VWH Qn1.34 m[IU]/LNormal 0.34-5.60Dun[facility] Memorial HospitalComment on above:Performed By: #### [id number] #### [facility] [address] [place], [place] [address]iJLInr 70-22-0764eQHQ65 mL/min/1.73 x5Mriqij>=59Fisher [facility] HospitalComment on above:Order Comment: Order added by Discern Expert. Performed By: #### [id number] #### [facility] [address] [place], [place] [address]Wmmtdbkcpx Visit Summaryon 62-12-9023Msjwimrksu Visit Summary Ambulatory Visit Summary UNA GOMEZ :1940 Visit Date:09/14/2023 Ambulatory Visit Instructions Your Diagnosis Annual visit for general adult medical examination without abnormal findings Post-poliomyelitis muscular atrophy Primary hypertension Hypothyroidism Hypercholesterolemia Asthma Osteoarthritis of hip Over weight Your Care Team Attending Physician - Yun CUMMINGS, Marlee Cortés Primary Care Physician - Yaniv Singh MD [...] Appointments Monday 9:20 AM EDT With: Where: [facility]Invalid Interpretation [address] [place] [address]- \.br\ Monday 11:00 AM EDT \.br\ With:\.br\ Where: [facility] Medicine Office/Clinic Noteon 08-05-2218Lsalqh [facility] Chief Complaint Medicare Wellness [...] risk recommendations and the following patient brochures weregiven. Reviewed Medicare Prevention Services checklist. CDC-Falls Prevention and home safety screening reviewed. Patient states one fall without injury last 12 months, denies any falls in the past three months, voices no worry about falling. Exhibits no problems with sitting, standing or ambulation. Patient aware with keeping walk way area free of clutter to prevent tripping and/or falling. [place] Advance Directives reviewed. Documents remain at home [...] discussed Shingrix vaccine with educational handout and availability.COVID vaccines have been administered, with Boosters received. Allergies and medications reviewed and up to date. No concerns with taking medication as prescribed. Reviewed OTC medications, medication list up to date. Blood tests were reviewed: Discussed what tests need to be updated. Labs were ordered, will have completed prior to next PCP visit. Labs to be completed with [facility] on a nurse visit. No concerns [...] is ready she has a really good well cleaner she cantalk to and she can talk to her [...] AUDIT risk assessment screening completed, risk score (0)with patient denying concerns with use. Completed PHQ-2 risk assessment for depression with risk score (3), positive findings, PHQ-9 risk score 8, negative findings. Patient has been reminded to notify the provider if there would be a change or concerns with symptoms with fear, unable to sleep, worrying too much or feeling down and/or sad with lost of interest with daily activities. Will continueto monitor with screening yearly during Medicare wellness visits. 2. Post-poliomyelitis muscular atrophy (G14: Postpolio syndrome) Denies any muscle weakness, denies difficulty walking, denies tripping, able to perform most ADLs on her own states she just needs help with heavy house cleaning. Her used to do it for her but recently passed, she plans to call to hire a well cleaner but has not done it yet. Follow up with PCP. 3. Primary hypertension (I10: Essential (primary) hypertension) Patient taking medications daily as directed, BP not monitored at home. Patient does voice understanding with signs and symptoms to monitor for. HTN stoplight handout reviewed with importance of keeping BP <140/90 to prevent increased cardiovascular risks. DASH dietary handout reviewed with impo(more content not included)...[facility] CenterComment on above:Result Comment: Electronically Signed By: LEA WALLACE CNP\.br\Date and Time Signed: 09/14/23 15:23 EDT\.br\Electronically Co-Signed By: Brittney Weber LPN\.br\Date and Time Co-Signed: 09/14/23 14:34 EDTCHEMISTRYOrdered By: SYSTEM SYSTEM on 55-54-9835Wlpqrjd [Mass/Vol]4.4 g/dLNormal3.3 - 5.0 gm/dLFTMC Remisol Albumin/Globulin [Mass ratio]1.6 {ratio}Normal1.1 - 2.2FT[facility] RemisolALP [Catalytic activity/Vol]77 [iU]/iPayezd70 - 98 Int._Unit/LFTMC RemisolALT No additional P-5'-P [Catalytic activity/Vol]20 [iU]/dNormal6 - 46 Int._Unit/LFTMC RemisolAnion gap [Moles/Vol]12 mmol/LNormal6 - 16 mEq/LFTMC RemisolAST [Catalytic activity/Vol]25 [iU]/dNormal5 - 43 Int._Unit/LFTMC RemisolBilirubin [Mass/Vol]1.1 mg/dLNormal0.0 - 1.1 mg/dLFTMC RemisolCalcium [Mass/Vol]9.4 mg/dL Normal8.9 - 11.1 mg/dLFTMC RemisolChloride [Moles/Vol]104 mmol/WHkldcr152 - 111 mmol/LFTMC RemisolCholesterol [Mass/Vol]107 mg/sKUoe388 - 200 mg/dLFTMC Remisol Cholesterol in HDL [Mass/Vol]30 mg/dLInvalid Interpretation CodeFTMC Remisol Cholesterol in LDL [Mass/Vol]60 mg/dLNormal<=129mg/dLFTMC RemisolCholesterol in VLDL [Mass/Vol]30 mg/dLNormal7 - 40 mg/dLFTMC RemisolCO2 [Moles/Vol]26 mmol/L Rfqfjr84 - 31 mmol/LFTMC RemisolCreatinine [Mass/Vol]0.8 mg/dLNormal0.5 - 1.3 mg/dLFTMC RemisolGFR/1.73 sq M.predicted among non-blacks MDRD (S/P/Bld) [Vol rate/Area]73 mL/min/1.73 g6Ktgfbs>=59mL/min/1.73 m2FTMC Chem SGlobulin (S) [Mass/Vol]2.8 g/dLNormal1.4 - 4.0 gm/dLFTMC RemisolGlucose [Mass/Vol]96 mg/dL Egahdz41 - 199 mg/dLFTMC RemisolPotassium [Moles/Vol]4.1 mmol/LNormal3.5 - 5.3 mmol/LFTMC RemisolProtein [Mass/Vol]7.2 g/dLNormal6.0 - 7.8 gm/dLFTMC Remisol Sodium [Moles/Vol]138 mmol/PZmlwrx560 - 145 mmol/LFTMC RemisolTriglyceride [Mass/Vol]151 mg/dLHigh<=149mg/dLFTMC RemisolTSH Qn1.42 m[IU]/LNormal0.34 - 5.60 mcIU/mLFTMC RemisolUrea nitrogen [Mass/Vol]13 mg/dLNormal5 - 21 mg/dLFTMC RemisolUrea nitrogen/Creatinine [Mass ratio]16 mg/ogDwntre62 - 20FT[facility] Remisol Covid-19 PCR (CVDTBH)on 67-70-2780NNWM-CoV-2 (COVID-19) RNA JESSIE+probe Ql (Unsp spec)DetectedCritically abnormalNOT DETECTEDThe Green Cross HospitalComment on above:Result Comment: This test is not yet approved or cleared by the [place] FDA. When there are no FDA-approved or cleared tests available, and other criteria are met, FDA can make tests available under an emergency access mechanism called an Emergency Use Authorization (EUA). The EUA for this test is supported by the Machine Room Operator of Health and Human Service's declaration that circumstances exist to justify the emergency use of in vitro diagnostics for the detection and/or diagnosis of the virusthat causes COVID-19. This EUA will remain in effect for the duration of the COVID-19 declaration justifying emergency of IVDs, unless it is terminated or revoked by the FDA (after which the test mayno longer be used).Performed By: #### CVDTBH #### [facility] [address] [address] [address] Galindo ChangECHOCARDIO M/2D COMPLETEon 70-96-8255TTOSLRRRQD M/2D COMPLETE Patient: UNA GOMEZ Exam Date: 07/19/2021 : 1940 Gender:F Ordering : DR AMAURY MONTERROSO . Admission #: [id number] Family : Order #: [id number] CLICK HERE TO VIEW EXAM ECHOCARDIOGRAM REPORT [...] Area(A2C): 14.80 cm2 Left Atrium Systolic Volume(A2C): 25525 mm3 Mitral Valve MV E to A Ratio: 0.70 Mitral Valve A-Wave Peak Velocity: 102.00 cm/s Mitral Valve E-Wave Peak Velocity: 72.10 cm/s Deceleration Time: 251 ms Right Ventricle Aorta AO Root Diam: 3.30 cm Aortic Valve Peak Velocity (Antegrade Flow): 137.00 cm/s AoV Area (Peak Barbara): 1.52 cm2 AoV Area (VTI): 1.54 cm2 Peak Velocity(Antegrade Flow): 174.00 cm/s Peak Gradient(Antegrade Flow): 12 mm[Hg] Mean Velocity(Antegrade Flow): 120.00 cm/s Mean Gradient(Antegrade Flow): 7 mm[Hg] Velocity Time Integral: 33.70 cm Tricuspid Valve Pulmonic Valve Peak Velocity: 127.00 cm/s Peak Gradient: 6 mm[Hg] Right Atrium Dictated by: Curtis Naylor M.D. on 07/19/2021 at 18:20 Approved by: Curtis Naylor M.D. on 07/19/2021 at 18:28[facility] LEFT 3 [facility] 40-76-4572NQEK LEFT 3 [facility] Department of Radiology [address] [place] [id number] Patient Name: UNA GOMEZ : 1940 Sex: F Age: Race: White Pt. Location: Patient Status: D Ordered Date: 07/16/2020 2:00:00 PM Completed Date: 07/16/2020 01:59 PM Requesting Provider: NICOLLE JAY Attending Provider: Report Copy To: Signs & Symptoms: M25.561 Pain in right knee I10 History: Mone Comments: , , , Ordering Provider - NICOLLE JAY MD , Exam: KNEE LEFT 3 S KNEE LEFT 3 VWS 07/16/2020 1:59 PM SIGNS AND [...] findings. Electronically signed: Trell Enciso. Transcribed by: [email or web address], User Resident: TRELL ENCISO Electronically Signed by: TRELL ENCISO @ 07/17/2020 10:46 AM I personally read this/these film(s) with this [facility] HospitalComment on above:Order Comment: , , , Ordering Provider - NICOLLE JAY MD , KNEE RIGHT 3 VWSon [id number] RIGHT 3 [facility]UniSelect [facility] of Radiology [address] [place] [id number] Patient Name: UNA GOMEZ : 1940 [...] remodeling. Electronically signed: Trell Enciso. Transcribed by: [email or web address], User Resident: TRELL ENCISO Electronically Signed by: TRELL ENCISO @ 07/17/2020 08:46 AM I personally read this/these film(s) with this [facility] HospitalComment on above:Order Comment: , , , Ordering Provider - NICOLLE JAY MD , HIPS BILATERAL 2 VWS WITH PELVISon 19-53-2903AXBH BILATERAL 2 VWS WITH PELVISUnUniversity [facility]als Health System Department of Radiology [address] [place] [id number] Patient Name: UNA GOMEZ : 1940 Sex: F Age: Race: White Pt. Location: 84 Patient Status: O Ordered Date: 07/06/2020 1:25:00 PM Completed Date: 07/06/2020 01:28 PM Requesting Provider: BERTHA MULTANI Attending Provider: BERTHA MULTANI Report Copy To: AMAURY MONTERROSO Signs & Symptoms: M25.551 Pain in right hip I10 History: Cubero Comments: evaluate Exam: HIPS BILATERAL 2 VWS [...] changes. Electronically signed: Lincoln Brooke. Transcribed by: [email or web address], User Resident: Electronically Signed by: LINCOLN BROOKE @ 07/06/2020 02:00 PMNormalThe [facility] Health SystemComment on above:Order Comment: evaluateOperative Report on 64-94-3478Ufjadkmdb ReportMR#: [id number] I [facility] Pt. Name: Una Gomez Room #: [id number] Discharge 04/15/2020 Date: Birthdate: 1940 OPERATIVE REPORT DATE OF SURGERY: 04/14/2020 SURGEON: Bertha Multani MD EMERGENCY PHYSICIAN: Bruno Schafer MD. ANESTHESIA: General with interscalene [...] osteoarthritis of the left shoulder joint with jwhb-xb-jvce as well as severe massive retracted chronic [...] then followed the cou (more content not included)...NormalThe [facility] HEMOGLOBINon 65-83-5193Obrjiocdkk (Bld) [Mass/Vol]12.7 g/gCNocdvl19.0-15.0The [facility] Health SystemComment on above:Order Comment: No: Do not add to previous drawPerformed By: #### [id number] #### [address] [place] [address], [facility] GLUCOSE LABon 30-68-3947Nawcjpe [Mass/Vol]97 mg/dL Dnrsny31-730Buk [facility] SystemComment on above:Performed By: #### [id number] #### [address] [place] [address], USAPORTABLE SHOULDER LEFT 2 VWSon 02-35-8587ZXTETZHM SHOULDER LEFT 2 SUniversAultman [facility] Department of Radiology [address] [place] [phone] Patient Name: UNA GOMEZ : 1940 Sex: F Age: Race: White Pt. Location: [place] [address] Patient Status: I Ordered Date: 04/14/2020 5:10:00 [...] failure Electronically signed: Efrain Cuello. Transcribed by: [email or web address], User Resident: EFRAIN CUELLO Electronically Signed by: EFRAIN CUELLO @ 04/14/2020 06:12 PM I personally read this/these film(s) with this [facility] HospitalComment on above:Order Comment: Hardware Evaluation, in PACU Vital Signs Date TimeVital SignValuePerforming RkqahzthvGlanedge31-60-6496 11:06-0400Body riqyhf605.48 Rachel Singh MD Work Phone: [facility]10-01-2025 11:06-0400 Body mass index (BMI) [Ratio]22.6 kg/k6RraluyYaniv Singh MD Work Phone: 1(567)[address] [place], [place] 4444110-01-2025 11:06-0400 Body ulprpx10.24 kgYaniv Singh MD Work Phone: 1(692)[address] [place], [place] 4444110-01-2025 11:06-0400 Diastolic blood rsecharh53 mm[Hg]Yaniv Singh MD Work Phone: 1(502)[address] [place], [place] 4444110-01-2025 11:06-0400 Heart rate78 /Padmini Singh MD Work Phone: 1(990)[address] [place], [place] 4444110-01-2025 11:06-0400 Respiratory rate18 /Padmini Singh MD Work Phone: 1(305)[address] [place], [place] 4444110-01-2025 11:06-0400 SaO2% (BldA) [Mass fraction]98 %Yaniv Singh MD Work Phone: 1(217)[address] [place], [place] 4444110-01-2025 11:06-0400 Systolic blood kvugwqhh456 mm[Hg]Yaniv Singh MD Work Phone: 1(233)[address] [place], [place] 4444109-29-2025 08:33-0400 Heart rate67 /Padmini Singh MD Work Phone: 1(383)[address] [place], [place] 4444109-29-2025 07:30-0400 Body ooicrevtrzo67.4 [degF]Yaniv Singh MD Work Phone: 1(673)[address] [place], [place] 4444109-29-2025 07:30-0400 Diastolic blood wgpektwp86 mm[Hg]Yainv Singh MD Work Phone: 1(237)[address] [place], [place] 4444109-29-2025 07:30-0400 Respiratory rate17 /Padmini Singh MD Work Phone: 1(029)[address] [place], [place] 4444109-29-2025 07:30-0400 SaO2% (BldA) [Mass fraction]98 %Yaniv Singh MD Work Phone: 1(687)[address] [place], [place] 4444109-29-2025 07:30-0400 Systolic blood vuilumby268 mm[Hg]Yaniv Singh MD Work Phone: 1(037)[address] [place], [place] 4444109-28-2025 06:22-0400 Body ouikat83.3 kgYaniv Singh MD Work Phone: 1(502)[address] [place], [place] 4444109-22-2025 13:39-0400 Body fdqifa337.32 cmStanner Singh MD Work Phone: 1(868)[address] [place], [place] 4444109-22-2025 13:39-0400 Body ijkbuauzssz23.8 [degF]Yaniv Singh MD Work Phone: 1(606)[address] [place], [place] 4444109-22-2025 13:39-0400 Body snfnoa36 kgYaniv Singh MD Work Phone: 1(702)[address] [place], [place] 4444109-22-2025 13:39-0400 Diastolic blood mm[Hg]Yaniv Singh MD Work Phone: 1(819)[address] [place], [place] 4444109-22-2025 13:39-0400 Respiratory rate18 /Padmini Singh MD Work Phone: 1(661)[address] [place], [place] 4444109-22-2025 13:39-0400 SaO2% (BldA) [Mass fraction]97 %Yaniv Singh MD Work Phone: 1(527)[address] [place], [place] 4444109-22-2025 13:39-0400 Systolic blood fgjurjug385 mm[Hg]Yaniv Singh MD Work Phone: 1(940)[address] [place], [place] 4444109-22-2025 11:45-0400 Body criayhpbrri66.7 [degF]Yaniv Singh MD Work Phone: 1(381)[address] [place], [place] 4444109-22-2025 11:45-0400 Diastolic blood vkoylmtw70 mm[Hg]Yaniv Singh MD Work Phone: 1(703)[address] [place], [place] 4444109-22-2025 11:45-0400 Heart rate76 /Padmini Singh MD Work Phone: 1(247)[address] [place], [place] 4444109-22-2025 11:45-0400 Respiratory rate16 /Padmini Singh MD Work Phone: 1(482)[address] [place], [place] 4444109-22-2025 11:45-0400 SaO2% (BldA) [Mass fraction]96 %Yaniv Singh MD Work Phone: 1(636)[address] [place], [place] 4444109-22-2025 11:45-0400 Systolic blood ukttgkbf741 mm[Hg]Yaniv Singh MD Work Phone: 1(838)[address] [place], [place] 4444109-22-2025 06:00-0400 Body ysmxkw22.5 kgYaniv Singh MD Work Phone: 1(910)[address] [place], [place] 4444109-17-2025 16:12-0400 Inhaled oxygen flow rate0 L/minStanner Singh MD Work Phone: 1(691)[address] [place], [place] 4444109-16-2025 08:15-0400 Body zqxbru904.32 cmStanner Singh MD Work Phone: 1(845)[address] [place], [place] 4444107-03-2025 20:05-0400 Body .16 cmStanner Singh MD Work Phone: 1(729)[address] [place], [place] 6108507-03-2025 20:05-0400 Body losdrkxchsi75.1 [degF]Yaniv Singh MD Work Phone: 1(623)[address]07-03-2025 20:05-0400 Body aswmyo45 kgYaniv Singh MD Work Phone: 1(464)[address]07-03-2025 20:05-0400 Diastolic blood xiyyjqds49 mm[Hg]Yaniv Singh MD Work Phone: 1(079)[address]07-03-2025 20:05-0400 Heart rate75 /Padmini Singh MD Work Phone: 1(336)422-[address] [place], [place] 7802207-03-2025 20:05-0400 Respiratory rate18 /Padmini Singh MD Work Phone: 1(741)[address]07-03-2025 20:05-0400 SaO2% (BldA) [Mass fraction]94 %Yaniv Singh MD Work Phone: 1(456)617-[address] [place], [place] 7802207-03-2025 20:05-0400 Systolic blood ylxlhncd397 mm[Hg]Yaniv Singh MD Work Phone: 1(364)[address] [place], [place] 6108507-03-2025 08:48-0400 Body ctabfu092.32 Rachel Singh MD Work Phone: 1(095)[address] [place], [place] 6108507-03-2025 08:48-0400 Body mass index (BMI) [Ratio]26.5 kg/q1VdtfkxYaniv Singh MD Work Phone: 1(052)[address] [place], [place] 6108507-03-2025 08:48-0400 Body .6 kgYaniv Singh MD Work Phone: 1(356)[address] [place], [place] 6108507-03-2025 08:48-0400 Diastolic blood krvyfbec45 mm[Hg]Yaniv Singh MD Work Phone: 1(987)[address] [place], [place] 6108507-03-2025 08:48-0400 Heart rate74 /Padmini Singh MD Work Phone: 1(115)[address] [place], [place] 6108507-03-2025 08:48-0400 Respiratory rate18 /Padmini Singh MD Work Phone: 1(838)[address] [place], [place] 6108507-03-2025 08:48-0400 SaO2% (BldA) [Mass fraction]97 %Yaniv Singh MD Work Phone: 1(842)[address] [place], [place] 6108507-03-2025 08:48-0400 Systolic blood ihnsvepm348 mm[Hg]Yaniv Singh MD Work Phone: 1(340)[address] [place], [place] 6108506-19-2025 11:18-0400 Body boitgp098.86 Rachel Singh MD Work Phone: 1(008)[address] [place], [place] 6108506-19-2025 11:18-0400 Body mass index (BMI) [Ratio]25.8 kg/x1MxywopYaniv Singh MD Work Phone: 1(447)[address] [place], [place] 6108506-19-2025 11:18-0400 Body fdhwip45 kgYaniv Singh MD Work Phone: 1(432)[address] [place], [place] 6108504-08-2025 14:19-0400 Body mhmiem293.3 cmKareem Dolce DPM FACFAS Work Phone: 1(740)[address] [place], [place] 4203504-08-2025 14:19-0400Body mass index (BMI) [Ratio]26.33 kg/h5Qobhav Dolce DPM FACFAS Work Phone: 1419)[address] [place], [place] 4203504-08-2025 14:19-0400Body jjmlof01.15 kgKareem Dolce DPM FACFAS Work Phone: 1(419)[address] [place], [place] 4203504-08-2025 14:19-0400Diastolic blood tvtxytkp90 mm[Hg]Uli Dolce DPM FACFAS Work Phone: 1419)[address] [place], [place] 4203504-08-2025 14:19-0400Heart rate67 /min Uli Dolce DPM FACFAS Work Phone: 1419)[address] [place], [place] 4203504-08-2025 14:19-0400Systolic blood zpfczliz292 mm[Hg]Uli Dolce DPM FACFAS Work Phone: 1419)[address] [place], [place] 4203503-20-2025 14:14-0400Body .3 cmKareem Dolce DPM FACFAS Work Phone: 1(453)[address] [place], [place] 4203503-20-2025 14:14-0400Body mass index (BMI) [Ratio]26.33 kg/c9Wkucxf Dolce DPM FACFAS Work Phone: 1(085)[address] [place], [place] 4203503-20-2025 14:14-0400Body qnlwah13.15 kgKareem Dolce DPM FACFAS Work Phone: [phone])[address] [place], [place] 4203503-20-2025 14:14-0400Diastolic blood mm[Hg]Uli Dolce DPM FACFAS Work Phone: [phone])[address] [place], [place] 4203503-20-2025 14:14-0400Systolic blood bsgxgurr168 mm[Hg]Uli Dolce DPM FACFAS Work Phone: 1(396)[address] [place], [place] 4203503-05-2025 13:25-0500Body aiapfg083.86 cmSamuel Ross MD Work Phone: 1(604)335-[address] [place], [place] 7802203-05-2025 13:25-0500 Body mass index (BMI) [Ratio]25.8 kg/w2JybncvYaniv Singh MD Work Phone: 0([phone])399-[address] [place], [place] 7802203-05-2025 13:25-0500 Body btkrni85.05 kgYaniv Singh MD Work Phone: 1(318)910-[address] [place], [place] 7802202-05-2025 11:34-0500 Body nbilgs220.86 Rachel Singh MD Work Phone: [phone])[address]02-05-2025 11:34-0500 Body mass index (BMI) [Ratio]26 kg/j8VzihrjYaniv Singh MD Work Phone: [phone])[address]02-05-2025 11:34-0500 Body meaxtt57.51 kgYaniv Singh MD Work Phone: 1(559)438-[address] [place], [place] 7802202-05-2025 11:34-0500 Diastolic blood hjbnuznf73 mm[Hg]Yaniv Singh MD Work Phone: 1(468)[address]02-05-2025 11:34-0500 Heart rate76 /minStanner Singh MD Work Phone: 1(413)622-[address] [place], [place] [address]2202-05-2025 11:34-0500 Systolic blood zqyuolxy122 mm[Hg]Yaniv Singh MD Work Phone: 1(808)308-[address] [place], [place] 7802212-05-2023 15:15-0500 Body fpulaj156.86 cmImad Asaad Other [employer] Other 12-05-2023 15:15-0500Body mass index (BMI) [Ratio] 27.87 kg/m2Imad Asaad Other [facility] Other 12-05-2023 15:15-0500Body iidqam70.6 kgImad Asaad Other 119.543.5549[employer] Other 12-05-2023 15:15-0500Diastolic blood qgdksdfa46 mm[Hg] Imad Asaad Other [employer] Other 12-05-2023 15:15-0500Systolic blood cmnlinhg303 mm[Hg] Imad Asaad Other [employer] Other 10-10-2023 14:15-0400Body dulwca955.86 cmImad Asaad Other [employer] Other 10-10-2023 14:15-0400Body mass index (BMI) [Ratio] 29.28 kg/m2Imad Asaad Other [employer] Other 10-10-2023 14:15-0400Body vadzww00.77 kgImad Asaad Other [employer] Other 10-10-2023 14:15-0400Diastolic blood tzdugslu90 mm[Hg] Imad Asaad Other [employer] Other 10-10-2023 14:15-0400Systolic blood twioqyth748 mm[Hg] Imad Asaad Other [employer] Other Encounters Encounter DateEncounter TypeCare ProviderFacilityStart: 84-59-5086solyznutkhVIH Jodi L SchwabFacility:[facility] BellevueStart: 70-99-0605slmtxoozprYryaak L. Bobbs Facility:[facility]mouthevueStart: 38-94-7836uehdehkyhxPxxdwz L. BobbsFacility:[facility] BellevueStart: 01-16-2025 End: 58-29-4093yatilmrdmsYiuafk L. BobbsFacility:[facility] BellevueStart: 01-10-2025 End: 56-84-7938siexrplgfxAqpjkd L. BobbsFacility:[facility] BellevueStart: 01-08-2025 End: 39-52-3950nuzyvmqbmaAaaylc L. BobbsFacility:[facility] BellevueStart: 01-03-2025 End: 73-88-5964oznjuvebmbZmun Lynn Schwab BROWNING PROCESSOR-C Work Phone: [phone]-Iwwsvrped Health OrthopedicsStart: 01-03-2025 End: 38-73-0794Uvbpzeh encounter procedureRobert David Mcneil MD-[facility] Orthopedics Work Phone: Start: 01-03-2025 End: 39-85-9086jesqgadjcoJtqi Lynn Schwab BROWNING PROCESSOR-C Work Phone: -Meli Gómez OrthoStart: 01-03-2025 End: 45-90-0714Mjkrrlz encounter procedureRobert David Gómez OrthoStart: 12-16-2024 End: 95-94-3331diiuoectypPUGBYX A LEHMANNFacility:[facility] BellevueStart: 12-12-2024 End: 12-99-7412asnwepigmnWomd L SchwabFacility:[facility] BellevueStart: 12-06-2024 End: 40-24-5461cmwnzaanyyOyuf Lynn Schwab BROWNING PROCESSOR-C Work Phone: [facility] Work Phone: Start: 12-06-2024 End: 20-80-9720Biertyh encounter procedureRobfadumo Mcneil MD-[facility] Orthopedics Work Phone: Start: 12-04-2024 End: 75-16-9778szrssfpiyaVlwoad E Ross MD Work Phone: [facility] Work Phone: Start: 12-04-2024 End: 45-22-8919Leywduv encounter procedureLucie Yanes APRN-[facility] Cardiology Work Phone: Start: 12-03-2024 End: 14-08-8442ioppxpdyjtIstf L SchwabFacility:CD:[id number]: 12-02-2024 Non-patient / Non-visitChrislinda Boone MD-[facility] Re[facility] Sp[facility] Work Phone: Start: 55-60-5157Ttc-patient / Non-visitRobert David Mcneil MD-[facility] Orthopedics Work Phone: Start: 11-25-2024 End: 91-33-2500Esktqajeny and management of inpatientChristian Melchor Boone MD[address] Rehab Work Phone: Start: 11-19-2024 End: 40-53-6861tiwhohqequVpsuJonah Albertcility:[facility] Hospitaltart: 44-17-5065Mmw-patient / Non-visitRobert David Mcneil MD-[facility] Orthopedics Work Phone: Start: 11-12-2024 End: 16-89-7494Ytmwgbp encounter procedureCurtis Morales MD -Electrodiagnostics Work Phone: Start: 11-12-2024 End: 52-39-1449evpqeuaeedZmwqea E Ross MD Work Phone: [facility] Work Phone: Start: 11-08-2024 End: 00-46-9711aayvjcvkoaBijugt E Ross MD Work Phone: [facility] Work Phone: Start: 11-08-2024 End: 49-26-7609Snokqsd encounter procedureFred Mcneil MD-[facility] Orthopedics Work Phone: Start: 11-07-2024 End: 85-39-9533gpvgxobiahWbpvmn E Ross MD Work Phone: [facility] Work Phone: Start: 11-07-2024 End: 11-55-9414Ywbuwtf encounter procedureFred Mcneil MD-[facility] Orthopedics Work Phone: Start: 45-59-7857Wrwpaglzke RecurringFred Mcneil MD-Physical Therapy Bone CreekStart: 23-53-2043rsptqknqdmUovjnn M David II Facility:[facility] Hospitaltart: 85-65-3263Gcbqgofbt for other preprocedural examinationFred Hernandez IIThe [facility] Physician GroupStart: 11-01-2024 End: 70-80-6430Tkhrskf encounter procedureFred Mcneil MD-Pre-Surgical Testing Work Phone: Start: 11-01-2024 End: 01-29-6294sawjtngzhoXelway E Ross MD Work Phone: [facility] Work Phone: Start: 05-30-0047Biafyndwg for preprocedural laboratory examinationJuanert Tarun Hernandez IIThe [facility] Health Physician GroupStart: 10-30-2024 End: 03-70-8297Tcblsqkike Louise DO Work Phone: [facility] EyeStart: 10-30-2024 End: 63-98-0095Zogmewkike Louise DO Work Phone: [facility] EyeStart: 10-30-2024 End: 72-38-2032epjvbpczuhZQYIIQDS D ZAHLERNot AvailableStart: 10-21-2024 End: 37-78-3115dbbfvsoxwpSANXB ELATTARUniLima Memorial Hospitaltart: 10-02-2024 End: 27-65-8325qiwmpdyskzXRAEQW A LEHMANNFacility:[facility] FM BellevueStart: 10-01-2024 End: 48-31-8197fkcgldhnhxNBBMYK A LEHMANNFacility:[facility] BellevueStart: 09-26-2024 End: 09-15-7597bnonthdojlPMW Marlee L SchwabFacility:[facility] FM BellevueStart: 47-79-7600xwyommxtbbHKA Marlee L SchwabFacility:[facility] BellevueStart: 09-09-2024 End: 34-74-4195bwpwobuvvoBKP Marlee L SchwabFacility:[facility] FM BellevueStart: 09-05-2024 End: 31-48-2878Vgmtpdfao department patient visitStanner Singh MD Work Phone: [phone]-Moyjwpnkq Room Work Phone: Start: 09-05-2024 End: 42-52-4080ckazqphexgOluazy E Ross MD Work Phone: [facility] Work Phone: Start: 09-05-2024 End: 00-37-5770Roqsumn encounter procedureGeorcristobal Morales MD-[facility] Cardiology Work Phone: Start: 08-29-2024 End: 23-37-6820yuynqsoyjoLIP Marlee L SchwabFacility:FT FM evueStart: 08-22-2024 End: 17-40-4758Zyynmih encounter procedureRobfadumo Mcneil MD-[facility]tart: 08-22-2024 End: 70-79-9438tswjsdfmdsArhyyk M Carlisle IIFacility:[facility] Hospitaltart: 08-22-2024 End: 32-14-5788Xlurukv encounter procedureFred Mcneil MD-[facility] Orthopedics Work Phone: Start: 08-20-2024 End: 77-06-8258Qpw Drop Chuck Singh [facility] Start: 08-20-2024 End: 22-66-0872brplzlavrlScvoaz E. RossFacility:[facility] FM BellevueStart: 08-01-2024 End: 56-76-7083qthgvqvvvdKkocmh E. RossFacility:[facility] BellevueStart: 07-24-2024 [facility]: 06-26-2024 End: 10-00-0282Toswwp flowsheetJonathan D Zahler DO Work Phone: noms NB OPHTStart: 06-26-2024 End: 11-91-6031Oqdjtr flowsheetJonathan D Zahler DO Work Phone: noms NB OPHTStart: 06-26-2024 End: 32-94-4374rimggebxfyIHSMYPHD D ZAHLERNot AvailableStart: 06-11-2024 End: 30-88-2535Pilpps flowsheetKareem R Dolce DPM FACFAS Work Phone: [facility] PODStart: 06-11-2024 End: 15-48-3327Xkbbww flowsheetKareem R Dolce DPM FACFAS Work Phone: [facility] ASC PODStart: 06-11-2024 End: 60-95-7106Jnvfay outpatient visit 15 minutesKareem R Dolce DPM FACFAS Work Phone: noMS NMA PODComment on above:Neoplasm of uncertain behavior of skin (Primary Dx); Plantar verrucaStart: 06-11-2024 End: 06-99-5658bdthorfvixHIQEBD R DOLCENot AvailableStart: 05-23-2024 End: 59-44-9086vsmzefzmsqVLAXVS R DOLCENot AvailableStart: 05-23-2024 End: 59-48-0166Ksuhyd outpatient new 30 minutesKareem R Dolce DPM FACFAS Work Phone: NOM[facility] NMA PODComment on above:Neoplasm of uncertain behavior of skin (Primary Dx); Plantar verruca; Pain in right toe(s)Start: 05-20-2024 End: 25-48-8439lczuevspvlYTW Jodi L SchwabFacility:[facility] BellevueStart: 05-13-2024 End: 03-09-6930uakoqnquslQnytjf E. RossFacility:[facility] FM BellevueStart: 05-08-2024 End: 99-90-5941tougbmnwzwEnlezv E Ross MD Work Phone: [facility] Work Phone: Start: 05-08-2024 End: 55-35-9021Svjfaso encounter procedureStanner Singh MD Work Phone: [facility] Work Phone: Start: 04-10-2024 End: 10-08-2991codhvmbtxnYfvibz E Ross MD Work Phone: [facility] Work Phone: Start: 04-10-2024 End: 26-46-1518Shcvxiv encounter procedureStanner Singh MD Work Phone: [facility] Work Phone: Start: 04-08-2024 End: 82-78-6118jozuhprrfjBygtpa E. RossFacility:FT BellevueStart: 03-05-2024 End: 32-10-0034Pmgeoar encounter procedureStanner Singh MD Work Phone: [facility] Work Phone: Start: 03-05-2024 End: 83-68-5113qojszbxahbIpsi AsaadFacility:[facility] Start: 02-21-2024 End: 91-59-8777Vtqcdk flowsIvonne Louise DO Work Phone: noms NB OPHTStart: 02-21-2024 End: 54-17-1060Exvjcj flowsIvonne Louise DO Work Phone: n[facility] NB OPHTStart: 02-21-2024 End: 76-61-9273zmaxsxeyidWQMWKAMA D ZAHLERNot AvailableStart: 02-13-2024 End: 03-48-6293vgubxyaimyOS Samuel E. RossFacility:FT FM BellevueStart: 01-22-2024 End: 53-02-0301Hrcuquauw encounterKlaus Mckeon DO Work Phone: [facility] SWS FM 230Start: 01-16-2024 End: 48-10-3851budojxhlxyBdjxpj E. RossFacility:FT FM BellevueStart: 01-08-2024 End: 14-77-9328nczleyktzeQxncrv E. RossFacility:[facility] FM BellevueStart: 01-03-2024 End: 00-51-4956meljocukzhIAC Jodi L SchwabFacility:FT FM BellevueStart: 12-11-2023 End: 28-46-9010Dzv Drop offMELISSA BONECKER [facility] Start: 12-11-2023 End: 72-38-2536fafbnzbyfrGO Samuel E. RossFacility:FT FM BellevueStart: 11-30-2023 End: 57-67-6451oyykpjppvnAEMLTTA [facility] Systemtart: 11-20-2023 End: 28-29-4882Byyrob Patricia Louise DO Work Phone: [facility] NB OPHTStart: 11-20-2023 End: 28-79-5995Vtgkvh flowsheetOttoniel Louise DO Work Phone: [facility] NB OPHTStart: 11-20-2023 End: 69-76-4086bueyvtjcjfRYAKQQIY D ZAHLERNot AvailableStart: 09-19-2023 End: 55-32-0703wfgyceknblKrhvlb E. RossFacility:[facility] FM BellevueStart: 09-18-2023 End: 60-79-5281Wgz Drop Chuck Singh [facility] Start: 09-18-2023 End: 30-16-1509qemqiybdwcTB Yaniv Pope RossFacility:FTMCStart: 09-14-2023 End: 68-21-8155racdehnckuZXJ Marlee MalcolmFacility:FT FM BellevueStart: 02-07-2023 End: 32-73-1033yuoptjfffyXbud Asaad Other [facility] IDx Other Start: 28-84-4094Hycpcb outpatient new 45 minutesImad AsaadFPG GastroenterologyStart: 12-13-2022 End: 86-39-6963zxwcrkjmkfDrrq Asaad Other [place] IDx Other Start: 55-46-0012Xvrqnb outpatient new 45 minutesImad AsaadFPG GastroenterologyStart: 09-09-2022 End: 66-20-6257Fpl Drop offMarlee Malcolm [facility] Start: 06-08-2022 End: 45-14-1290bermcvdsesKWPXH D HIGHLANDERFacility:E0Fmbqr: 03-03-2022 End: 86-88-9045ckvkgyevsxUGVUB D HIGHLANDERFacility:A5Hinxa: 01-03-2022 End: 26-50-4387wnhbesjfcmYPIBJIIG CULLENFacility:Z0Heayb: 12-22-2021 End: 32-30-9973bkslvmpckeSK KIM E KNIGHT .Facility:J0Ikyzq: 11-29-2021 End: 09-25-1837pydpllkcifIRHGA D HIGHLANDERFacility:F1Ofmpq: 09-07-2021 End: 25-34-5624uqzxprrvhqKS KIM E KNIGHT .Facility:N7Evine: 08-27-2021 End: 81-90-2765icmywlzjjsQHJRP D HIGHLANDERFacility:W9Qxntl: 07-19-2021 End: 61-65-9893talmmhucvkDD KIM E KNIGHT .Facility:U0Atfoa: 04-14-2020 End: 18-17-6833Vgowxxmatc and management of inpatientKIM KNIGHTFacility:[facility] Procedures DateProcedureProcedure DetailPerforming ClinicianStart: 73-49-7592Fyrmv X-ray of right hipJodi Yun BROWNING PROCESSOR-C Work Phone: Start: 30-49-7861Rscsjcibcvfx ophthalmic imaging retinaAbbiejovannydalton Mely Dani DO Work Phone: Start: 10-30-2024 End: 04-97-1181Echpv medical xm&eval intermediate [facility] pt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Ottoniel Boone Dani DO Work Phone: comment on above: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 (Primary Dx); Dry eyes; Blepharitis of upper and lower eyelids of both eyes, unspecified typeStart: 43-82-9759Raebs X-ray of right shoulderYaniv Singh MD Work Phone: Start: 59-95-1509Tkdoh Screen MRSA/Juanjose Singh MD Work Phone: Start: 83-35-4096Vcvnmpuaokhi ophthalmic imaging retinaOttoniel Sanchezagnesjordana DO Work Phone: Start: 06-26-2024 End: 29-78-6635TxjnwRockcastle Regional Hospital&eval intermediate [facility] pt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Ottoniel Louise DO Work Phone: comment on above: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 (Primary Dx); Dry eyes; Blepharitis of upper and lower eyelids of both eyes, unspecified typeStart: 18-63-9635Jeica X-ray of right hipStanner Singh MD Work Phone: Start: 91-79-9768Eidwojahdl elastography of liver Yaniv Singh MD Work Phone: Start: 61-35-3658Qivtapxwykpn ophthalmic imaging retinaOttoniel Louise DO Work Phone: Start: 02-21-2024 End: 99-12-9444Llrhu medical xm&eval comprhnsv estab pt 1/>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Ottoniel Louise DO Work Phone: comment on above: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 (Primary Dx); Dry eyes; Blepharitis of upper and lower eyelids of both eyes, unspecified typeStart: 17-50-7027Aogfeogbioyx ophthalmic imaging retinaOttoniel Louise DO Work Phone: Start: 11-20-2023 End: 99-96-7374Euuni medical xm&eval intermediate estab pt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Ottoniel Louise DO Work Phone: comment on above: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 (Primary Dx); Dry eyes; Blepharitis of upper and lower eyelids of both eyes, unspecified typeStart: 54-35-7712LEVLDFRDRJ WITH RESPIRATORY VENTILATION, <24 HRSOSAMA ELATTARStart: 01-23-9504FEBFSXEDWHY OF L SHOULDER JT WITH SYNTH SUB, OPEN APPROACHOSAMA ELATTARStart: 32-46-1342BVCVMVNCOG LEFT UPPER ARM TENDON, OPEN APPROACHOSAMA ELATTARBilateral cataracts (disorder)Marlee Yun CholecystectomyJodi Yun Prosthetic arthroplasty of shoulderJodi Yun Comment on above:right 2019 Plan of Treatment DateCare ActivityDetailAuthorStart: 33-58-1416Qbamn X-ray of right hipXR hip RT min 2V(w/wo pelvis)*[facility]tart: 30-83-1118NO Hip - right 2 ViewsMercy Health Anderson Hospitaltart: 35-78-2672JrmqdznaxMercy Health Anderson Hospitaltart: 73-49-3818Vtgexdnflogfh metabolic 2000 panel - Serum or PlasmaMercy Health Anderson Hospitaltart: 28-33-2042IkobcijtpMercy Health Anderson Hospitaltart: 58-29-7061Xgyqbqdw admissionMercy Health Anderson Hospitaltart: 06-92-9943Nsauwso referral to dietitianMercy Health Anderson Hospitaltart: 76-36-8274Heuaaexo therapy procedureMercy Health Anderson Hospitaltart: 07-17-7927Shyicjyb to clinical allergistMercy Health Anderson Hospitaltart: 09-88-8404Fsdxvdsg to occupational therapistMercy Health Anderson Hospitaltart: 65-41-2872Wrujxxbga procedureMercy Health Anderson Hospitaltart: 37-58-6342EonwjturbMercy Health Anderson Hospitaltart: 80-98-2573AvfyzkgpqMercy Health Anderson Hospitaltart: 79-16-7943Uwckeyxe to rehabilitation physicianMercy Health Anderson Hospitaltart: 11-19-2024 Hospital admissionMercy Health Anderson Hospitaltart: 57-74-1243Bploudur to clinical allergistMercy Health Anderson Hospitaltart: 28-71-6899Eyrwwfopu vaccinationInfluenza Vaccine (#1)NOM HealthcareStart: 26-66-4732ZjslcgjtwMercy Health Anderson Hospitaltart: 10-30-2024 End: 44-84-5240Vrvbnqa encounter umecvpacp94/27/2025 1:15 PM EDT Office Visit [facility] [address] [place] [address] Ottoniel Louise, DO [address] [place] [address] ArrivedNOUniversity of [facility] EyeComment on above:ArrivedStart: 12-66-2744GidefagcbMercy Health Anderson Hospitaltart: 06-26-2024 End: 59-26-2473Rlxefge encounter procedureNOMS NB OPHTComment on above:Arrived Start: 06-11-2024 End: 71-12-0067Vvgxtux encounter procedureNOMS NMA PODComment on above:Arrived Start: 25-27-7921Nliph X-ray of right hipXR hip RT min 2V(w/wo pelvis)*[facility] Hospitaltart: 91-46-7668IJ Hip - right 2 ViewsMercy Health Anderson Hospitaltart: 34-24-4497VfpdepyumMercy Health Anderson Hospitaltart: 02-21-2024 End: 94-15-6161Pqzjazw encounter procedureNOMS NB OPHTComment on above:Arrived Start: 11-20-2023 End: 32-83-4734Nwbnumy encounter huhryhyhs35/16/2024 1:30 PM EDT Office Visit NOMRadha [facility] OPHT [address] [place] [address] Ottoniel Louise DO [address] [place] [address] ArrivedNOMS NB OPHTComment on above:ArrivedStart: 32-97-4185Dzbejzxgx vaccinationInfluenza Vaccine (#1)[facility] HealthcarePatient EducationHolzer Health System Ctr Work Phone: Patient referralHolzer Health System Ctr Work Phone: [facility] TransthoracicHCA [facility] Immunizations Immunization DateImmunizationNotesCare PanzszboOwvfdkij30-38-0314nvnjrrfja virus vaccine, unspecified formulationOttoniel Louise DO Work Phone: [phone]-EhiwmOhiohealth Grove [facility] Hospital 17-50-8478kmhjcvyvi virus vaccine, unspecified formulationStanenr Singh 503-6071Ncnxrf-JhyyaOhiohealth Grove [facility] Hospital 54-10-9175HTQE-CoV-2 (COVID-19) mRNAMUL.ORD!o27382Cngg Yun 749-9663Qmmpoh-AqtbbNationwide Children'S Hospital10-24-2022 influenza virus vaccine, unspecified formulationJodi Yun 184-6681Gklhkr-EhfesNationwide Children'S Hospital01-12-2022 SARS-CoV-2 (COVID-19) mRNA-1273 vaccineJodi Yun 770-6202Hcvysy-DvpgtNationwide Children'S HospitalComment on above: Result Comment: 2022-07-04: GEU3406-01-5779yxnutjjpg virus vaccine, unspecified formulationJodi Yun 622-8585Flfebs-TcxjyNationwide Children'S Hospital07-09-2021 pneumococcal polysaccharide vaccine, 23 valentJodi Yun 540-7143Sogdze-OhojzNationwide Children'S Hospital03-02-2021 SARS-CoV-2 (COVID-19) mRNA-1273 vaccineJodi Yun 192-9964Ttprwb-XuuadNationwide Children'S Hospital02-02-2021 SARS-CoV-2 (COVID-19) mRNA-1273 vaccineJodi Yun 735-3951Mhemik-KukidNationwide Children'S Hospital07-09-2020 pneumococcal conjugate vaccine, 13 valentJodi Yun 756-8293Otovan-GtfotNationwide Children'S Hospital11-29-2019 influenza virus vaccine, unspecified formulationJodi Yun 543-3439Ivlsfi-ArkktNationwide Children'S Hospital11-27-2018 influenza virus vaccine, unspecified formulationJodi Yun 802-4476Vebulb-TkwgzNationwide Children'S Hospital12-30-2016 influenza virus vaccine, unspecified formulationJodi Yun 409-3071Wmeope-GwydcNationwide Children'S Hospital01-13-2016 influenza virus vaccine, unspecified formulationJodi Yun 564-6385Wpjece-TloroNationwide Children'S Hospital11-14-2005 influenza, wholeJodi Yun 064-9511Pjxrml-InbxdNationwide Children'S Hospital Payers DatePayer CategoryPayerPolicy [id number] 2024Self-pay [id number] [id number] [id number] [id number] 2.16.840.1.448545.3.57[id number] 2.16.840.1.535977.3.57[id number] 2.16.840.1.567318.3.57[id number] 2.16.840.1.731257.3.57[id number] 2.16.840.1.160573.3.57[id number] 2.16.840.1.001926.3.57[id number] 2.16.840.1.195764.3.579.[id number] 2.16.840.1.211555.3.579.2.55890-50-9706Nluulpy4112156 2.16.840.1.352132.3.57[id number] 2.16.840.1.359425.3.57[id number] 2.16.840.1.483561.3.579.[id number] 2.16.840.1.890367.3.579.[id number] 2.16.840.1.169223.3.579.2.[id number] 2.16.840.1.114515.3.57[id number] 2.16.840.1.544110.3.579.2.[id number] 2.16.840.1.414460.3.579.2.62228-04-0654Nknamjn48383878 2.16.840.1.568607.3.579.[id number] 2.16.840.1.387086.3.579.2.69419-21-0401Zlvljkk30140137 2.16840.1.379170.3.579.2.[id number] 2.16.840.1.350616.3.579.2.57[id number] 2.16.840.1.496476.3.579.2.72274-11-2985Yofvjph86266862 2.16.840.1.812804.3.579.2.[id number] 2.16.840.1.133396.3.579.2.09[id number] 2.16.840.1.828845.3.579.2.68009-66-7809Tavzjei77971781 2.16.840.1.187099.3.579.2.65412-42-0227Zpgnjfc75656855 2.16.840.1.942939.3.579.2.05602-60-7113Zlnvbip16399436 2.16.840.1.295485.3.579.2.705603-96-5247Odyazic0944393 2.16.840.1.999423.3.579.2.589843-79-3412Yjwvguw4036960 2.16.840.1.090666.3.579.2.237185-27-9376Btqolpa8900780 2.16840.1.419436.3.579.2.903655-12-2597Myrctgu0817928 2.16840.1.684375.3.579.2.187759-85-6071Mtzefqs7019295 2.16840.1.068655.3.579.2.453828-34-5541Amltdrl23341664 2.16840.1.423959.3.579.2.32197-91-6098Svjxcnx47017999 2.16840.1.034381.3.579.2.19139-09-1877Xcoasug04245674 2.16.840.1.475963.3.579.2.96876-92-4057Lwoviji37012177 2.16840.1.280345.3.579.2.27492-43-8178Ritkhla29591806 2.16840.1.192336.3.579.2.92056-02-7692Botonbu51680152 2.16840.1.154609.3.579.2.95643-87-1788Ephthfw14744179 2.16840.1.182900.3.579.2.46986-50-6351Rejvyxt14070166 2.16840.1.491107.3.579.2.71038-88-6841Zdqdryh39132440 2.16840.1.596634.3.579.2.10334-57-3715Ncmvthy28006258 2.840.1.743678.3.579.2.71559-13-6751Ofvjycp94130681 2.840.1.001713.3.579.2.61817-14-1171Gjfbxtm27672440 2.840.1.637850.3.579.2.16286-62-2205Zhpermc17017645 2.0.1.519807.3.579.2.38151-10-0570Kbzyolj51585566 2..1.037568.3.579.2.38071-51-2355Nchdnff67295251 2.0.1.701312.3.579.2.727[facility] WadixexisHVKI4TGVIpgvbzt01577662 2.840.1.620739.3.579.2.544Onofesi08868319 2..1.610314.3.579.2.531 Ioospne79836684 2.84.1.365789.3.579.2.619Yahmept08611046 2.0.1.954209.3.579.2.033Abklhhx95771407 2.0.1.233846.3.579.2.531 Cimflnq18275010 2.840.1.962231.3.579.2.040Vtvbtfo79320695 2.0.1.187783.3.579.2.494Qihtpxr69628657 2.840.1.734268.3.579.2.531 Ndjinrz07306798 2.840.1.615394.3.579.2.688Iwwmxos90477087 2.16.840.1.078054.3.579.2.080Pdrpjpd23139483 2.16.840.1.208832.3.579.2.531 Social History DateTypeDetailFacilityStart: 09-08-2022 End: 26-09-3899Lovvhhg smoking statusNever smoked tobacco (finding)[facility] smoking statusNeverKnox [facility] BellevueStart: 08-02-2023 End: 69-10-2133Zae [facility] Hospitaltart: 28-41-4582Drkfgej use and exposureSmokeless tobacco non-userNOMS Healthcare Start: 08-02-2023 End: 62-07-7271Iwzvexqez beverage intakeLifetime non-drinker (finding)[facility] HealthcareStart: 08-02-2023 End: 95-70-6623Uruutnp of Social functionNOMS HealthcareStart: 72-97-4377Jwdhgqj Commentcaffeine: 1-2 cups per dayNOMS HealthcareStart: 53-08-1844Glx assigned at [facility] HealthcareStart: 13-59-3125Dfydpe identityIdentifies as female gender (finding)[facility] CenterTobagreat [facility] smoking status NHISUnknown if ever smokedWayne Hospital Work Phone: Start: 05-28-2018 End: [id number] (finding)[facility] OrientationUniversity Hospitals [facility] Start: 11-25-2024 End: 87-78-8257GSLE Follow upSDOH Follow upClermont County Hospital Work Phone: NEGATED: Highlighted rowStart: NINFHistory of tobacco usePassive smokerNOUT Healthcare Medical Equipment Procedure CodeEquipment CodeEquipment Original TextEquipment IdentifierDates Arthroplasty, hip, total, anterior approachAcetabular shell [id number] FDAStart: 05-66-6444Aslmpahfbqjf, hip, total, anterior approachCeramic femoral head prosthesis ()[id number] FDAStart: 22-93-0435Rhdzjypdomuj, hip, total, anterior approachCoated hip femur prosthesis, modular ()[id number] FDAStart: 97-01-1024Qstjpshhsdlo, hip, total, anterior approachNon-constrained polyethylene acetabular liner ()[id number] FDAStart: 11-19-2024 Functional Status YudoQtgudkqqjfAwifqfMyfdlhgx88-56-7780Rfyeaoszlt statusPatient Not at Baseline [facility] Work Phone: Mental Status AmdfWrhyoqyqmsHtwrhaBanmroou07-84-6408Qybzqfibo functionCognitive Status Patient is Progressing Toward BaselineClermont County Hospital Work Phone: Clinical Notes 04-22-2020 to 12-16-2024 Note Date & BrhpJrxaIuxmvskh65-72-8362 NotePatient Education Orthopedics Total Hip Replacement Total hip replacement is a surgery to replace your damaged hip joint. You may have this surgery to lessen your pain and to help your hip move better. Tell your doctor about: ??? Any allergies you have. ??? All medicines you are taking. This includes vitamins, herbs, eye drops, creams, and edvy-pof-admwiky medicines. ??? Any problems you or family members have had with anesthetic medicines. These medicines numb areas of your body or make you fall asleep for surgery. ??? Any blood disorders you have. ??? Any surgeries you have had. ??? Any medical conditions you have. ??? Whether you are or may be . What are the risks? In general, this is a safe surgery. But problems may occur, such as: ??? Infection. ??? Bleeding. ??? Allergic reactions to medicines. ??? Damage to nerves or other parts. ??? Problems with your man-made joint (prosthesis). These may include: ? Your joint moving out of place or getting loose. ? Swelling and pressure buildup. ??? A blood clot that can form in your leg and break loose and move to your lungs. ??? A bone break, loss of movement, or lasting stiffness or pain. What happens before the procedure? Staying hydrated Follow instructions from your doctor about hydration. These may include: ??? Up to 2 hours before the procedure ? you may continue to drink clear liquids. These include water, clear fruit juice, black coffee, and plain tea. Eating and drinking restrictions ??? Follow instructions from your doctor about eating and drinking. These may include: ? 8 hours before the procedure ? stop eating heavy meals or foods. These include meat, fried foods,or fatty foods. ? 6 hours before the procedure ? stop eating light meals or foods. These include toast or cereal. ? 6 hours before the procedure ? stop drinking milk or drinks that contain milk. ? 2 hours before the procedure ? stop drinking clear liquids. ??? Do not drink alcohol for 48 hours before your surgery. Medicines ??? Ask your doctor about changing or stopping: ? Your normal medicines. ? Vitamins, herbs, and supplements. ? Gsir-wsa-rgzkznk medicines. ??? Do not take aspirin or ibuprofen unless you are told to. Tests ??? You may have a physical exam. ??? You may have tests, such as: ? X-rays or an MRI. ? An electrocardiogram (EKG). ? Blood or pee (urine) tests. General instructions ??? Plan to have a responsible adult take you home from the hospital or clinic. ??? Plan to have a responsible adult care for you for the time you are told after you leave the hospital or clinic. This is important. ??? Get your home ready so you can be safe while you heal. Be sure you can reach all the things youneed. ??? Keep your body and teeth clean. Germs from anywhere in your body can infect your new joint. Tell your doctor: ? If you plan to have dental care and routine cleanings. ? If you get any skin infections. ??? Avoid shaving your legs just before surgery. ??? For your safety, your doctor may: ? Larry the area of surgery. ? Remove hair at the surgery site. ? Ask you to wash with a soap that kills germs. ? Give you antibiotic medicine. What happens during the procedure? An IV tube will be put into one of your veins. ??? You may be given: ? A sedative. This medicine helps you relax. ? A medicine to: ? Numb certain areas of your body. ? Make you fall asleep for surgery. ??? Your doctor will make a cut (incision) in your hip. ??? Then, your doctor will: ? Cut and take out damaged parts of your hip joint. ? Put a man-made hip joint into place. ? Do an X-ray of the new hip joint to make sure it is in the right place. ? Place a drain to take away extra fluid, if needed. ? Close the incision and place a bandage over it. The procedure may vary among doctors and hospitals. What happens after the procedure? You will be monitored until you leave the hospital or clinic. This includes checking your bloodpressure, heart rate, breathing rate, and blood oxygen level. ??? Your health care team will check if you can move your foot and can feel sensations in it. ??? You will receive pain medicine. ??? You may need to: ? Wear a type of socks that are tight (compression stockings). ? Take medicines to thin your blood (anticoagulants). ??? You will do exercises to help your hip move better and get stronger until you are well enough to go home. ??? You may need to use a walker, crutches, or a cane. ??? You may need to use a wedge pillow (hip abduction pillow) when you are in bed. Summary ??? Total hip replacement is a surgery to replace your damaged hip joint. ??? Follow instructions from your doctor about eating and drinking before the procedure. ??? Plan to have a responsible adult take you home from the hospital or clinic. ??? You may need t (more content not included)...[facility] 11-07-2024 Evaluation note* Diagnosis Onset Date Resolution Status Admit Date Primary osteoarthritis of right hip inactiveSept2024 1:56pmHypertensionacuteSept2024 8:00am Personal history of poliomyelitisacuteSept2024 8:00amImpaired mobility and activities of daily livingresolvedSept2024 8:00am Postpolio syndromeinactiveSeptember 2024 8:00amPrimary osteoarthritis of right hipinactiveSeptember 2024 8:00amStatus post total replacement of right hipinactiveSeptember 2024 8:00amHypertensionacuteSeptember 2024 1:32pmImpaired mobility and activities of daily livingresolvedSeptember 2024 1:32pmPostpolio syndromeinactiveSeptember 2024 1:32pmPrimary osteoarthritis of right hipinactiveSeptember 2024 1:32pmRight hip pain inactiveSeptember 2024 1:32pmStatus post total replacement of right hip inactiveSeptember 2024 1:32pmHypertensionacuteOctober 2024 10:55am Irregular heart beatacuteOctober 2024 10:55amLeft bundle branch block (LBBB)acuteOctober 2024 10:55am [facility] Work Phone: 1(723) 459-690909-04-2025 Evaluation note* Diagnosis Onset Date Resolution Status Admit Date Primary osteoarthritis of right hip inactiveSeptember 2024 1:56pmHypertensionacuteSeptember 2024 8:00am Personal history of poliomyelitisacuteSeptember 2024 8:00amStatus post total replacement of right hipacuteSeptember 2024 8:00amImpaired mobility and activities of daily livingresolvedSeptember 2024 8:00amPostpolio syndromeinactiveSeptember 2024 8:00amPrimary osteoarthritis of right hip inactiveSeptember 2024 8:00amHypertensionacuteSeptember 2024 1:32pm Status post total replacement of right hipacuteSeptember 2024 1:32pm Impaired mobility and activities of daily livingresolvedSeptember 2024 1:32pmPostpolio syndromeinactiveSeptember 2024 1:32pmPrimary osteoarthritis of right hipinactiveSeptember 2024 1:32pmRight hip pain inactiveSeptember 2024 1:32pmHypertensionacuteOctober 2024 10:55am Irregular heart beatacuteOctober 2024 10:55amLeft bundle branch block (LBBB)acuteOctober 2024 10:55amAftercare following right hip joint replacement surgeryacuteOctober 2024 9:32amStatus post total replacement of right hipacuteOctober 2024 9:32amAftercare following right hip joint replacement surgeryacuteOctober 2024 9:59amStatus post total replacement of right hipacuteOctober 2024 9:59am [facility] Work Phone: 1(747) 128-222608-27-2025 NoteRight Eye Quality was good. Scan locations included subfoveal. Progression has been stable. Findings include pigment epithelial detachment. Left Eye Quality was good. Scan locations included subfoveal. Progression has been stable. Findings include pigment epithelial detachment.[facility] CenterUywgtervbq84-78-8291 History of Present illness Narrative* Ottoniel Louise DO - 10/30/2024 1:15 PM EDT Images from the original [...] lid scrubs were recommended. documented in this encounterMadison Medical CenterXudknvyokh47-00-7805 NoteOrthopedic Surgery Subjective Chief complaint: Chief Complaint Patient presents with Right Arm - Follow-up, Pain Pt c/o right armpit pain. Pt has had for a few months. Happened when carrying groceries. Pt says oral steroids have helped in the past with this pain 10/21/24 Una Gomez is a 84 y.o. year old female presenting for follow up of her right shoulder. Patient is s/p: 4 and half years s/p L shoulder rTSA (DOS 04/14/2020) 5 years s/p R rTSA (DOS 10/29/2019) She has been doing well. Able to do all ADLs with no pain and has maintained good motion in the shoulder. She developed pain in the right axilla, and pec .major after a movement a few months ago. She is here today to make sure that nothing is wrong with the right reverse shoulder replacement. Denies numbness, tingling, and weakness. ROS Constitutional: Denies Musculoskeletal: No back pain Skin: Denies any skin lesions Neurological: No tingling, numbness, weakness History No past surgical history on file. No past medical history on file. Objective General: No acute distress, comfortable Respiratory: Unlabored breathing with normal rate, no cough Cardiovascular: Warm well perfused extremities Psych: Appropriate mood behavior Evaluation of the right shoulder reveals healed surgical incision, FF to 160, ER to 45, IR to back pocket Imaging: Right shoulder X-rays, 3 views, obtained in office today 10/21/24 shows stable well aligned reverse shoulder arthroplasty components with no complications Imaging was reviewed and interpreted by me, and findings were reviewed with the patient. Assessment/Plan Una Gomez is a 84 y.o. year old female with right shoulder (more of axilla and chest wall pain) Of note she is: 4 and half years s/p left shoulder rTSA (DOS 04/14/2020) 5 years s/p right rTSA (DOS 10/29/2019) Today's right shoulder X-rays were reviewed and patient was reassured Plan - Continue activities as tolerated using pain as a guide - Physical therapy to work on decreasing inflammation, improving ROM, stretching and strengthening ,as well as deep tissue massage - Follow up as needed The patient understands and agrees to the management plan, and all patient questions have been answered to her satisfaction. Bilateral shoulder pain, unspecified chronicity Right shoulder pain, unspecified chronicity Bertha Multani MD Orthopedic Surgery, [employer] [facility] 10/21/24[facility]07-30-2025 NotePatient Education Infectious Disease Rash, Adult A rash is a breakout of spots or blotches on the skin. It can change the way your skin looks and feels. Many things can cause a rash. The goal of treatment is to stop the itching and keep the rash from spreading. Follow these instructions at home: Medicine Take or apply gztm-jcr-qaovlqw and prescription medicines only as told by [...] pharmacy or grocery store. Follow the instructions onthe package. ??? Try putting baking soda paste [...] provider. Document Revised: 12/09/2022 Document Reviewed: 12/09/2022 Anturis Patient Education ? 2023 Babybe.[facility] 09-26-2024 NoteNurse Consultation Note Reason for Visit Pt presents today for [...] 50,000 intl units (1.25 mg) oral capsule, 24928 International_Unit= 1 cap(s), Oral, 2x/Wk, 3 refills Allergies Augmentin (Unknown) Diflucan (Unknown) sulfa drugs (Unknown) traMADol (Unknown) Immunizations Vaccine Date Status Comments influenza virus vaccine, inactivated 01/23/2024 Recorded influenza virus vaccine, inactivated 12/14/2022 Recorded SARS-CoV-2 (COVID-19) mRNAMUL.ORD![id number] 02/10/2022 Recorded influenza virus vaccine, inactivated 12/27/2021 [...] vaccine, inactivated 03/18/2015 Recorded influenza, whole 01/17/2005 [facility]ed[facility]-2025 Note Patient Education Emergency Medicine Heart Attack A heart attack occurs when blood and oxygen supply to the heart is cut off. A heart attack can cause damage to the heart that cannot be fixed. A heart attack is also called a myocardial infarction, or LA. If you think you are having a heart attack, do not wait to see if the symptoms will go away. Get medical help right away. What are the causes? This condition may be caused by: ??? A fatty substance (plaque) in the blood vessels (arteries). This can block the flow of blood tothe heart. ??? A blood clot in the blood vessels that go to the heart. The blood clot blocks blood flow. ??? An abnormal heartbeat. ??? Some diseases, such as problems in red blood cells (anemia)orproblems in breathing (respiratoryfailure). ??? Tightening (spasm) of a blood vessel [...] these instructions at home: Medicines ??? Take mzco-qjs-fqqxxnj and prescription medicines only as told by [...] vomit. ??? You fe (more content not included)...[facility]07-03-2025 Evaluation note* Diagnosis Onset Date Resolution Status Admit Date Hypertension acuteJuly 2024 8:33amIrregular heart beatacuteJuly 2024 8:33amLeft bundle branch block (LBBB)acuteJuly 2024 8:33amPrimary osteoarthritis of right hipacuteJuly 2024 8:33amPrimary osteoarthritis of right hipacute November 07, 2024 1:56pmHypertensionacuteSeptember 2024 8:00amImpaired mobility and activities of daily livingacuteSeptember 2024 8:00amPersonal history of poliomyelitisacuteSeptember 2024 8:00amPostpolio syndromeacute November 19, 2024 8:00amPrimary osteoarthritis of right hipacuteSeptember 2024 8:00amStatus post total replacement of right hipacuteSeptember 2024 8:00am [facility] Work Phone: 1([phone]) 356-651907-03-2025 Evaluation note* Diagnosis Onset Date Resolution Status Admit Date Hypertension acuteJuly 2024 8:33amIrregular heart beatacuteJuly 2024 8:33amLeft bundle branch block (LBBB)acuteJuly 2024 8:33amPrimary osteoarthritis of right hipacuteJuly 2024 8:33amPrimary osteoarthritis of right hipacute November 07, 2024 1:56pmHypertensionacuteSeptember 2024 8:00amImpaired mobility and activities of daily livingacuteSeptember 2024 8:00amPersonal history of poliomyelitisacuteSeptember 2024 8:00amPostpolio syndromeacute November 19, 2024 8:00amPrimary osteoarthritis of right hipacuteSeptember 2024 8:00amStatus post total replacement of right hipacuteSeptember 2024 8:00amHypertensionacuteSeptember 2024 1:32pmImpaired mobility and activities of daily livingacuteSeptember 2024 1:32pmPostpolio syndrome acuteSeptember 2024 1:32pmPrimary osteoarthritis of right hipacute November 25, 2024 1:32pmRight hip painacuteSeptember 2024 1:32pmStatus post total replacement of right hipacuteSeptember 2024 1:32pm [facility] Work Phone: 1(193) 656-206207-03-2025 Evaluation note* Diagnosis Onset Date Resolution Status Admit Date Hypertension acuteJuly 2024 8:33amIrregular heart beatacuteJuly 2024 8:33amLeft bundle branch block (LBBB)acuteJuly 2024 8:33amPrimary osteoarthritis of right hipinactiveJuly 2024 8:33amPrimary osteoarthritis of right hip inactiveSeptember 2024 1:56pmHypertensionacuteSeptember 2024 8:00am Personal history of poliomyelitisacuteSeptember 2024 8:00amImpaired mobility and activities of daily livingresolvedSeptember 2024 8:00am Postpolio syndromeinactiveSeptember 2024 8:00amPrimary osteoarthritis of right hipinactiveSeptember 2024 8:00amStatus post total replacement of right hipinactiveSeptember 2024 8:00amHypertensionacuteSeptember 2024 1:32pmImpaired mobility and activities of daily livingresolvedSeptember 2024 1:32pmPostpolio syndromeinactiveSeptember 2024 1:32pmPrimary osteoarthritis of right hipinactiveSeptember 2024 1:32pmRight hip pain inactiveSeptember 2024 1:32pmStatus post total replacement of right hip inactiveSeptember 2024 1:32pmHypertensionacuteOctober 2024 10:55am Irregular heart beatacuteOctober 2024 10:55amLeft bundle branch block (LBBB)acuteOctober 2024 10:55am [facility] Work Phone: 1(981) 642-883606-19-2025 Evaluation note* Diagnosis Onset Date Resolution Status Admit Date Personal history of poliomyelitis acuteJune 2024 11:02amPrimary osteoarthritis of right hipacuteJune 2024 11:02am [facility] Work Phone: 1(525) 831-122506-19-2025 Evaluation note* Diagnosis Onset Date Resolution Status Admit Date Personal history of poliomyelitis acuteJune 2024 11:02amPrimary osteoarthritis of right hipacuteJune 2024 11:02amHypertensionacuteJuly 2024 8:33amIrregular heart beatacuteJuly 2024 8:33amLeft bundle branch block (LBBB)acuteJuly 2024 8:33amPrimary osteoarthritis of right hipacuteJuly 2024 8:33am [facility] Work Phone: 1(628) 279-715806-19-2025 Evaluation note* Diagnosis Onset Date Resolution Status Admit Date Personal history of poliomyelitis acuteJune 2024 11:02amPrimary osteoarthritis of right hipacuteJune 2024 11:02amHypertensionacuteJuly 2024 8:33amIrregular heart beatacuteJuly 2024 8:33amLeft bundle branch block (LBBB)acuteJuly 2024 8:33amPrimary osteoarthritis of right hipacuteJuly 2024 8:33amPrimary osteoarthritis of right hipacuteSeptember 2024 1:56pm [facility] Work Phone: 1(120) 477-232205-21-2025 Note Attestation signed by Crissy Schuler MD [...] outside clinic near her home in the [facility] who she reports recommended right total hip [...] a 84 y.o. female who presents to [facility] today for hip pain in [...] far. 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 She is independent with driving and uses a (more content not included)...[facility]04-23-2025 Note Right Eye Quality was good. Scan locations included subfoveal. Progression has been stable. Findings include abnormal foveal contour, pigment epithelial detachment. Left Eye Quality was good. Scan locations included subfoveal. Progression has been stable. Findings include abnormal foveal contour, pigment epithelial detachment.[facility] Medical CenterNnjdyvigrn85-92-5215 History of Present illness Narrative* Ottoniel Louise [...] lid scrubs were recommended. documented in this encounterMadison Medical CenterKqcwfncjmw15-08-0092 History of Present illness Narrative* Uli Schulte [...] she was instructed to pad the area. Uli Schulte DPM FACFAS documented in this encounterMadison Medical CenterWqrwuhkxnp22-54-8978 History of Present illness Narrative* JEANNINE Dolan [...] secondary to the pain. They have attempted eidz-vdn-yvixoec anti- inflammatory medications as well as nxic-ccp-zvlwoft wart treatment to no avail. Patient haspolio [...] < 3 seconds Digits 1-5 bilateral NEURO: [place] Ru 5.07 monofilament was intact B/L. Vibratory [...] occlusive dressing. JEANNINE Dolan documented in this encounterMadison Medical CenterLaboolatgk04-61-3604 NotePatient Education Nutrition BMI for Adults Body [...] for Disease Control and Prevention: cdc.gov ??? [place] Heart Association: heart.org ??? National Heart, Lung, and Blood Rye: nhlbi.nih.gov This information is not intended to replace advice given to you by your health care provider. Make sure you discuss any questions you have with your health care provider. Document Revised: 11/10/2022 Document Reviewed: 11/03/2022 Elsevier Patient Education ? 2023 Babybe.[facility] 04-10-2024 Evaluation note* Author [facility] Vega [facility] CenterhoHelen [facility] 1:03no52-sskt-zzj female referred to the gastroenterology clinic for [...] exercise. No need for medical therapy [facility] Work Phone: 1(106) 338-551502-03-2025 NotePatient Education Nutrition BMI for Adults Body [...] for Disease Control and Prevention: cdc.gov ??? [place] Heart Association: heart.org ??? National Heart, Lung, and Blood Rye: nhlbi.nih.gov This information is not intended to replace advice given to you by your health care provider. Make sure you discuss any questions you have with your health care provider. Document Revised: 11/10/2022 Document Reviewed: 11/03/2022 Anturis Patient Education ? 2023 Babybe.[facility] 02-21-2024 NoteRight Eye Quality was good. Scan locations included subfoveal. Progression has been stable. Findings include pigment epithelial detachment. Left Eye Quality was good. Scan locations included subfoveal. Progression has been stable. Findings include pigment epithelial detachment.[facility] Medical CenterBcwletftow69-69-9271 History of Present illness Narrative* Ottoniel Louise, [...] lid scrubs were recommended. documented in this encounterMadison Medical CenterWnjmekuwrm32-89-9837 Telephone encounter Note* Telephone Encounter - Julia Webber - 01/22/2024 2:55 PM EST Spoke with pt informing them that Dr. Bravo did not accept leora as a new patient. Pt voiced understanding [facility] Medical CenterNysucwuhpv49-51-4645 Miscellaneous Notes* Telephone Encounter - Julia Webber - 01/22/2024 2:55 PM EST Spoke with pt informing them that Dr. Bravo did not accept leora as a new patient. Pt voiced understanding documented in this [facility]11-12-2024 NotePatient Education Nutrition BMI for Adults Body [...] for Disease Control and Prevention: cdc.gov ??? [place] Heart Association: heart.org ??? National Heart, Lung, and Blood Rye: nhlbi.nih.gov This information is not intended to replace advice given to you by your health care provider. Make sure you discuss any questions you have with your health care provider. Document Revised: 11/10/2022 Document Reviewed: 11/03/2022 Anturis Patient Education ? 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 [...] Echocardiogram: 10/05/2022 Mild left (more content not included)...[facility] 11-30-2023 NotePatient here for 1 year follow up aortic valve stenosis, LBBB, and hypertension. Had routine labs w/ lipid panel in September 2023. She denies chest pain, SOB, palpitations, and LE edema. Doing very well. Review of Systems All other systems reviewed and are negative.[facility] 11-20-2023 NoteRight Eye Quality was good. Scan locations included subfoveal. Progression has been stable. Findings include abnormal foveal contour, pigment epithelial detachment. Left Eye Quality was good. Scan locations included subfoveal. Progression has been stable. Findings include abnormal foveal contour, pigment epithelial detachment. Notes Vitelliform change central [facility] [id number] History of Present illness Narrative* Ottoniel Louise [...] lid scrubs were recommended. documented in this encounterMadison Medical [id number] NotePatient Education Nutrition BMI for Adults What [...] numbers. This can be done either in [place] ([place] or metric measurements. Note that charts and online BMI calculators are available to help you find your BMI quickly and easily without having to do these calculations yourself. To calculate your BMI in [place] measurements: 1. Measure your weight [...] for Disease Control and Prevention: www.cdc.gov ? [place] Heart Association: www.heart.org ? National Heart, Lung, and Blood [place]: www.nhlbi.nih.gov Summary ? Body mass index (BMI) is a number that is calculated from a person's weight and height. ? BMI may help estimate how much of a person's weight is composed of fat. BMI can help identify those who may be at higher risk for certain medical problems. ? BMI can be measured using [place] measurements or metric measurements. ? BMI charts are used to identify whether you are underweight, normal weight, overweight, or obese. This information is not intended to replace advice given to you by your health care provider. Make sure you discuss any questions you have with your health care provider. Document Revised: 11/13/2019 Document Reviewed: 09/20/2019 [employer] Patient Education ? 2022 [employer].[facility] 09-14-2023 NotePatient Education Mental and Behavioral [...] pray, or go to a place of islam. ? Do some deep breathing. To do [...] or salt (sodium). General instructions ? Take uouw-kjl-xjskdvo and prescription medicines only as told by [...] Mental Health Jerica: www.me (more content not included)...[facility]12-05-2023 Evaluation note* Encounter Date Diagnosis Assessment Notes Treatment Notes Treatment Clinical Notes Feb, Fatty liver (ICD-10 - K76.0) Patient advised to make life style modifications-diet/exercise/weight loss. Repeat fibroscan in 1 yr Rto 1 yr [facility] Other 10-10-2023 Evaluation note* Encounter Date Diagnosis Assessment Notes Treatment Notes Treatment Clinical Notes Dec, RUQ pain (ICD-10 - R10.11) [facility] Other 02-17-2021 NoteMR#: [id number] I [facility] Pt. 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 SECONDARY DIAGNOSIS: None. HOSPITAL COURSE: The patient came to the [facility] for left reverse total shoulder arthroplasty on [...] Schafer MD Date Trans: 04/22/2020 06:23 P/vicky [id number] cc: Amaury Monterroso M.D. [address] [place] [id number] HospitalEvaluation + Plan note Future Appointments Appointment Date:09/19/2022 10:40:00 AM Scheduled Provider:[facility] Open Appointment Date:09/14/2023 11:00:00 AM Scheduled Provider: [facility] Future App[facility]ments Appointment Date:09/19/2023 10:00:00 AM Scheduled Provider:[facility] Type:FM Open Appointment Date:09/09/2024 11:00:00 AM Scheduled [facility] Future Appointments Appointment Date:02/13/2024 10:45:00 AM Scheduled Provider:Yaniv Singh MD Location:[facility] Appointment Type:FM Open Appointment Date:09/09/2024 11:00:00 AM Scheduled Provider: Location:[facility] Appointment Type: Medicare Wellness Subsequent [facility] Evaluation + Plan note Future Appointments Appointment Date:09/09/2024 11:00:00 AM Scheduled Provider: Location:[facility] Appointment Type: Medicare Wellness Subsequent [facility] Evaluation note* Diagnosis Advanced atrophic [...] Date Resolution Status Admit Date Fatty liver acuteFebruary 2024 11:29am [facility] Work Phone: Evaluation note* Diagnosis 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 Pain in right toe(s) documented [facility] Diagnosis 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 documented in this encounter [facility] HealthcareHistory general Narrative - Reported* Type Description Date Medical History ASTHMA Medical HistoryVERTIGOMedical HistoryESOPHAGEAL STRICTURESurgical History SHOULDER REPLACEMENTSurgical HistoryCHOLECYSTECOMYHospitalization HistorySEE ABOVE [facility] Other Hospital course Narrative No data available for this section [facility] Dis[facility] instructions No data available for this section [facility] CenterProgress note No data available for this section [facility] CenterReason for referral (narrative)No reason for referral information availableWayne Hospital Work Phone: Summary Purpose Family History No Family History Records Found Relationship Condition Age at Onset Recorded Date/T lisa mother Malignant neoplasm of breast Unknown fatherDementiaUnknownfatherDeceasedUnknownmotherDeceasedUnknown Relationship Condition Age at Onset Recorded Date/T lisa mother Malignant neoplasm of breast Unknown DeceasedUnknownfatherDementiaUnknown Advance Directives No Advanced Directives Records Found [...] M25.551 - Pain in right hip May 08, 1:04pm Chief Complaint Admit Date OP SP [...] of right hip September 05, 2024 8:33am Chief Complaint Admit Date OP SP RT HIP PAIN August 22, 2024 11:0 2am Z79.899 M81.0 August 22, 2024 12:5 8pm POC September 05, 2024 8:33a m R94.September 05, 2024 8:36a m shoulder pain September 05, 2024 7:42p m Hip pain November 01, 2024 10 :03am Chief Complaint Admit Date OP SP RT HIP PAIN August 22, 2024 11:0 2am Z79.899 M81.0 August 22, 2024 12:5 8pm POC September 05, 2024 8:33a m R94.September 05, 2024 8:36a m shoulder pain September 05, 2024 7:42p m Hip pain November 01, 2024 10 :03am Pre-Op RTH November 07, 2024 12:37pm H&P RTHA- INPT/REHAB November 07, 2024 1:56pm Reason for Visit Admit Date Personal history of poliomyelitis August 042024 11:02am Primary osteoarthritis of right hip August 22, 2024 11:02am Hypertension September 05, 2024 8:33a m Irregular heart beat September 05, 2024 8:33 am Left bundle branch block (LBBB) September 8:33am Primary osteoarthritis of right hip September 05, 2024 8:33am Primary osteoarthritis of right hip Sept emb2024 1:56pm Chief Complaint Admit Date OP SP RT HIP PAIN August 22, 2024 11:0 2am Z79.899 M81.0 August 22, 2024 12:5 8pm POC September 05, 2024 8:33a m R94.September 05, 2024 8:36a m shoulder pain September 05, 2024 7:42p m Hip pain November 01, 2024 10 :03am Pre-Op RTH November 07, 2024 12:37pm H&P RTHA- INPT/REHAB November 07, 2024 1:56pm Prolonged November 08, 2024 6:25am Chief Complaint Admit Date OP SP RT HIP PAIN August 22, 2024 11:0 2am Z79.899 M81.0 August 22, 2024 12:5 8pm POC September 05, 2024 8:33a m R94.September 05, 2024 8:36a m shoulder pain September 05, 2024 7:42p m Hip pain November 01, 2024 10 :03am Pre-Op RTH November 07, 2024 12:37pm H&P RTHA- INPT/REHAB November 07, 2024 1:56pm Prolonged November 08, 2024 6:25am R94.31 I42.9 November 12, 2024 8:34am Chief Complaint Admit Date POC September 05, 2024 8:33a m R94.31 September 05, 2024 8:36a m shoulder pain September 05, 2024 7:42p m Hip pain November 01, 2024 10 :03am Pre-Op RTH November 07, 2024 12:37pm H&P RTHA- INPT/REHAB November 07, 2024 1:56pm Prolonged November 08, 2024 6:25am R94.31 I42.9 November 12, 2024 8:34am Hip pain November 19, 2024 8:00am right hip oste[facility] 1:32pm Reason for Visit Admit Date Hypertension September 05, 2024 8:33a m Irregular heart beat September 05, 2024 8:33 am Left bundle branch block (LBBB) September 8:33am Primary osteoarthritis of right hip September 05, 2024 8:33am Primary osteoarthritis of right hip Sept emb2024 1:56pm Hypertension November 19, 2024 8:00am Impaired mobility and activities of dangelo y living November 19, 2024 8:00am Personal history of poliomyelitis Septem armando 2024 8:00am 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, 2024 8:00am [facility] Status post total replacement of right h ip November 19, 2024 8:00am Chief Complaint Admit Date POC September 05, 2024 8:33a m R94.31 September 05, 2024 8:36a m shoulder pain September 05, 2024 7:42p m Hip pain November 01, 2024 10 :03am Pre-Op RTH November 07, 2024 12:37pm H&P RTHA- INPT/REHAB November 07, 2024 1:56pm Prolonged November 08, 2024 6:25am R94.31 I42.9 November 12, 2024 8:34am Hip pain November 19, 2024 8:00am right hip osteoarthritis s/p W[facility] 2024 1:32pm Hip pain November 26, 2024 12:00am right hip osteoarthritis s/p [facility] 2024 12:00am Reason for Visit Admit Date Hypertension September 05, 2024 8:33a m Irregular heart beat September 05, 2024 8:33 am Left bundle branch block (LBBB) September 8:33am Primary osteoarthritis of right hip September 05, 2024 8:33am Primary osteoarthritis of right hip [facility]2024 1:56pm Hypertension November 19, 2024 8:00am Impaired mobility and activities of dangelo y living November 19, 2024 8:00am Personal history of poliomyelitis [facility] [place] 8:00am 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, 2024 8:00am Primary osteoarthritis of right hip [facility] 2024 8:00am Status post total replacement of right h ip November 19, 2024 8:00am Hypertension November 25, 2024 1:32pm Impaired mobility and activities of dangelo y living November 25, 2024 1:32pm 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 25, 2024 1:32pm Primary osteoarthritis of right hip [facility] 2024 1:32pm Right hip pain November 25, 2024 1:32pm Status post total replacement of right h ip November 25, 2024 1:32pm Chief Complaint Admit Date POC September 05, 2024 8:33a m R94.31 September 05, 2024 8:36a m shoulder pain September 05, 2024 7:42p m Hip pain November 01, 2024 10 :03am Pre-Op RTH November 07, 2024 12:37pm H&P RTHA- INPT/REHAB November 07, 2024 1:56pm Prolonged November 08, 2024 6:25am R94.31 I42.9 November 12, 2024 8:34am Hip pain November 19, 2024 8:00am right hip osteoarthritis s/p [facility] 2024 1:32pm Hip pain November 26, 2024 12:00am right hip osteoarthritis s/p [facility] 2024 12:00am 3 month f/u December 04, 2024 10 :55am Reason for Visit Admit Date Hypertension September 05, 2024 8:33a m Irregular heart beat September 05, 2024 8:33 am Left bundle branch block (LBBB) September 8:33am Primary osteoarthritis of right hip September 05, 2024 8:33am Primary osteoarthritis of right hip [facility]2024 1:56pm Hypertension November 19, 2024 8:00am Personal history of poliomyelitis Sept 2024 8:00am Impaired mobility and activities of dangelo y living November 19, 2024 8:00am 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, 2024 8:00am Primary osteoarthritis of right hip [facility]2024 8:00am Status post total replacement of right h ip November 19, 2024 8:00am Hypertension November 25, 2024 1:32pm Impaired mobility and activities of dangelo y living November 25, 2024 1:32pm 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 25, 2024 1:32pm Primary osteoarthritis of right hip [facility]2024 1:32pm Right hip pain November 25, 2024 1:32pm Status post total replacement of right h ip November 25, 2024 1:32pm Hypertension December 04, 2024 10 :55am Irregular heart beat December 04, 2024 1 0:55am Left bundle branch block (LBBB) December 04, 2024 10:55am Chief Complaint Admit Date Hip pain November 01, 2024 10 :03am Pre-Op RTH November 07, 2024 12:37pm H&P RTHA- INPT/REHAB November 07, 2024 1:56pm Prolonged November 08, 2024 6:25am R94.31 I42.9 November 12, 2024 8:34am Hip pain November 19, 2024 8:00am right hip osteoarthritis s/p [facility] 2024 1:32pm Hip pain November 26, 2024 12:00am right hip osteoarthritis s/p [facility] 2024 12:00am 3 month f/u December 04, 2024 10 :55am 2 WK POST OP RTHA December 06, 2024 9: 32am Reason for Visit Admit Date Primary osteoarthritis of right hip Sept emb2024 1:56pm Hypertension November 19, 2024 8:00am Personal history of poliomyelitis Septem 2024 8:00am Impaired mobility and activities of dangelo y living November 19, 2024 8:00am 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, 2024 8:00am Primary osteoarthritis of right hip Sept emb2024 8:00am Status post total replacement of right h ip November 19, 2024 8:00am Hypertension November 25, 2024 1:32pm Impaired mobility and activities of dangelo y living November 25, 2024 1:32pm 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 25, 2024 1:32pm Primary osteoarthritis of right hip Nov emb2024 1:32pm Right hip pain November 25, 2024 1:32pm Status post total replacement of right h ip November 25, 2024 1:32pm Hypertension December 04, 2024 10 :55am Irregular heart beat December 04, 2024 1 0:55am Left bundle branch block (LBBB) December 04, 2024 10:55am Chief Complaint Admit Date Hip pain November 01, 2024 10 :03am Pre-Op RTH November 07, 2024 12:37pm H&P RTHA- INPT/REHAB November 07, 2024 1:56pm Prolonged November 08, 2024 6:25am R94.31 I42.9 November 12, 2024 8:34am Hip pain November 19, 2024 8:00am right hip osteoarthritis s/p [facility] 1:32pm Hip pain November 26, 2024 12:00am right hip osteoarthritis s/p [facility] 12:00am 3 month f/u December 04, 2024 10 :55am 2 WK POST OP RTHA December 06, 2024 9: 32am Z96.641 - 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 January 03, 2025 8:21am 4 WK RECHECK RTHA January 03, 2025 9 :59am Reason for Visit Admit Date Primary osteoarthritis of right hip Sept 2024 1:56pm Hypertension November 19, 2024 8:00am Personal history of poliomyelitis Septem 2024 8:00am Status post total replacement of right h ip November 19, 2024 8:00am Impaired mobility and activities of dangelo y living November 19, 2024 8:00am 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, 2024 8:00am Primary osteoarthritis of right hip Nov 8:00am Hypertension November 25, 2024 1:32pm Status post total replacement of right h ip November 25, 2024 1:32pm Impaired mobility and activities of dangelo y living November 25, 2024 1:32pm 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 25, 2024 1:32pm Primary osteoarthritis of right hip Nov 1:32pm Right hip pain November 25, 2024 1:32pm Hypertension December 04, 2024 10 :55am Irregular heart beat December 04, 2024 1 0:55am Left bundle branch block (LBBB) December 04, 2024 10:55am Aftercare following right hip joint repl acement surgery December 06, 2024 9:32am Status post total replacement of right h ip December 06, 2024 9:32am Aftercare following right hip joint repl acement surgery January 03, 2025 9:59am Status post total replacement of right h ip January 03, 2025 9:59am Additional Source Comments INFORMATION SOURCE (unrecogn ized section and content) DATE CREATED AUTHOR 04/11/2021 [facility] DATE CREATED AUTHOR AUTHOR'S ORGANIZ ATION 07/07/2022 [facility] DATE CREATED AUTHOR AUTHOR'S ORGANIZ ATION 09/22/2023 [facility] DATE CREATED AUTHOR AUTHOR'S ORGANIZ ATION 02/15/2024 [facility] DATE CREATED AUTHOR AUTHOR'S ORGANIZ ATION 08/21/2024 [facility] DATE CREATED AUTHOR AUTHOR'S ORGANIZ ATION 08/23/2024 [facility] DATE CREATED AUTHOR AUTHOR'S ORGANIZ ATION 09/12/2024 [facility] DATE CREATED AUTHOR AUTHOR'S ORGANIZ ATION 11/01/2024 [facility] DATE CREATED AUTHOR AUTHOR'S ORGANIZ ATION 11/02/2024 [facility] DATE CREATED AUTHOR AUTHOR'S ORGANIZ ATION 01/10/2025 [facility] DATE CREATED AUTHOR AUTHOR'S ORGANIZ ATION 01/11/2025 [facility] DATE CREATED AUTHOR AUTHOR'S ORGANIZ ATION 01/17/2025 [facility] Patient Care team informatio n (unrecognized section and content) Team MemberRelationshipSpecialtyStart DateEnd Date Yaniv Singh MD [address] [place] [phone] PCP - GeneralFamily Medicine11/20/23Team MemberRelationshipSpecialtyStart DateEnd Date Yaniv Singh MD [address] [place] [address] PCP - GeneralFamily Medicine11/20/23Team MemberRelationshipSpecialtyStart DateEnd Date Yaniv Singh MD [address] [place] [address] PCP - GeneralFamily Medicine11/20/23Team MemberRelationshipSpecialtyStart DateEnd Date Yaniv Singh MD [address] [place] [phone] PCP - GeneralFamily Medicine11/20/23 Team Status: Active Member Role Status Dates Yaniv Singh MD Primary Care Provider Active Team Status: Inactive Member Role Status Dates Yaniv Singh MD Primary Care Provider Active Start: March 05, 2024 End: March 05, 2024Imad Tra Vega ProviderActiveStart: March 05, 2024 End: March 05, 2024 Team Status: Inactive Member Role Status Dates Yaniv Singh MD Primary Care Provider Active Start: April 10, 2024 End: April 10, 2024Imad Tra Vega ProviderActiveStart: April 10, 2024 End: April 10, 2024 Team Status: Inactive Member Role Status Dates Yaniv Singh MD Primary Care Provider Active Start: May 08, 2024 End: May 08, 2024Robfadumo Mcneil David JESUS, MDAttending ProviderActiveStart: May 08, 2024 End: May 08, 2024 Team Status: Active Member Role Status Dates Fred Hernandez II, MD Attending Provider Active Start: May 08, 2024 Jatin Herrera Care ProviderActiveStart: May 08, 2024 Team Status: Inactive Member Role Status Dates Fred Hernandez II, MD Attending Provider Active Start: May 08, 2024 End: May 08, 2024Jatin Herrera Care ProviderActiveStart: May 08, 2024 End: May 08, 2024Team MemberRelationshipSpecialtyStart DateEnd Date Yaniv Singh MD [address] [place] [address] [facility] - [facility]/23Team MemberRelationshipSpecialtyStart DateEnd Date Yaniv Singh MD [address] [place] [address] PCP - [facility] Medicine11/20/23 Team Status: Inactive Member Role Status Dates Yaniv Singh MD Primary Care Provider Active Start: August 22, 2024 End: August 22, 2024Robfadumo Hernandez II, MDAttending ProviderActiveStart: August 22, 2024 End: August 22, 2024 Team Status: Inactive Member Role Status Dates Yaniv Singh MD Primary Care Provider Active Start: September 05, 2024 End: September 05, 2024Curtis Morales MDAttending ProviderActiveStart: September 05, 2024 End: September 05, 2024 Team Status: Active Member Role Status Dates Yaniv Singh MD Primary Care Provider Active Start: September 05, 2024 Curtis Morales MDAttending ProviderActiveStart: September 05, 2024 Team Status: Active Member Role Status Dates Marlee Malcolm BROWNING PROCESSOR-C Primary Care Provider Active Team Status: Inactive Member Role Status Dates Rosa M Romano APRN Emergency Provider Active Start: September 05, 2024 End: September 05, 2024Marlee Malcolm , BROWNING PROCESSOR-CPrimary Care ProviderActiveStart: September 05, 2024 End: September 05, 2024 Team Status: Inactive Member Role Status Dates Marlee Malcolm , BROWNING PROCESSOR-C Primary Care Provider Active Start: November 01, 2024 End: November 01, 2024Fred Hernandez II, MDAttending ProviderActiveStart: November 01, 2024 End: November 01, 2024 Team Status: Active Member Role Status Dates Marlee Malcolm , BROWNING PROCESSOR-C Primary Care Provider Active Start: November 07, 2024 Fred Hernandez II, MDAttending ProviderActiveStart: November 07, 2024 Team Status: Inactive Member Role Status Dates Marlee Malcolm , BROWNING PROCESSOR-C Primary Care Provider Active Start: November 07, 2024 End: November 07, 2024Robfadumo Hernandez II, MDAttending ProviderActiveStart: November 07, 2024 End: November 07, 2024 Team Status: Inactive Member Role Status Dates Marlee Malcolm , BROWNING PROCESSOR-C Primary Care Provider Active Start: November 08, 2024 End: November 08, 2024Robfadumo Hernandez II, MDAttending ProviderActiveStart: November 08, 2024 End: November 08, 2024 Team Status: Inactive Member Role Status Dates Curtis Morales MD Attending Provider Activ e Start: November 12, 2024 End: November 12, 2024Marlee Malcolm , BROWNING PROCESSOR-CPrimary Care ProviderActiveStart: November 12, 2024 End: November 12, 2024 Team Status: Active Member Role Status Dates Marlee Malcolm , BROWNING PROCESSOR-C Primary Care Provider Active Start: November 19, 2024 Fred Hernandez II, MDAttending ProviderActiveStart: November 19, 2024 Fred Hernandez II, MDOther ProviderActiveStart: November 19, 2024 Adalgisa Britt , ANNALISEOther ProviderActiveStart: November 19, 2024 Karine Alexander , ANNALISEOther ProviderActiveStart: November 19, 2024 Love Tubbs , ANNALISEOther ProviderActiveStart: November 19, 2024 Gabrielle Palafox , ANNALISEOther ProviderActiveStart: November 19, 2024 Tonya Singh RNOther ProviderActiveStart: November 19, 2024 Tamia Herron RNOther ProviderActiveStart: November 19, 2024 Nicholas Mckinley MDOther ProviderActiveStart: November 19, 2024 Debby Landaverde , DOOther ProviderActiveStart: November 19, 2024 Jacinto Billy MDOther ProviderActiveStart: November 19, 2024 Joey Avelar , DOOther ProviderActiveStart: November 19, 2024 Richard Grier MDOther ProviderActiveStart: November 19, 2024 Herminia Ashton MDOther ProviderActiveStart: November 19, 2024 Jovon Mendez , DOOther ProviderActiveStart: November 19, 2024 Carlo Bradford MDOther ProviderActiveStart: November 19, 2024 Debbie Mendoza , APRNOther ProviderActiveStart: November 19, 2024 Maximo Zelaya MDOther ProviderActiveStart: November 19, 2024 Doris Hallman MDOther ProviderActiveStart: November 19, 2024 Ksenia Rosario MDOther ProviderActiveStart: November 19, 2024 Jovon Cramer , DOOther ProviderActiveStart: November 19, 2024 Abhishek Ngo MDOther ProviderActiveStart: November 19, 2024 Alexis Dickson MDOther ProviderActiveStart: November 19, 2024 Kailee Peterson , BROWNING PROCESSOR-COther ProviderActiveStart: November 19, 2024 Merlin Swift , APRNOther ProviderActiveStart: November 19, 2024 Jayson Deal MDOther ProviderActiveStart: November 19, 2024 Tej Rocha MDOther ProviderActiveStart: November 19, 2024 Coleen Torres MDOther ProviderActiveStart: November 19, 2024 Kemar Brown , DOOther ProviderActiveStart: November 19, 2024 Cindy Brown , APRNOther ProviderActiveStart: November 19, 2024 Acosta Potts DOOther ProviderActiveStart: November 19, 2024 John Montana MDOther ProviderActiveStart: November 19, 2024 Areli Bear , APRNOther ProviderActiveStart: November 19, 2024 Argelia Aguiar , APRNOther ProviderActiveStart: November 19, 2024 Beryl Parker MDOther ProviderActiveStart: November 19, 2024 Orestes Slaughter MDOther ProviderActiveStart: November 19, 2024 Martagurpreet Dequan , DOOther ProviderActiveStart: November 19, 2024 Mayur Nogueira MDOther ProviderActiveStart: November 19, 2024 Mikhail Flores MDOther ProviderActiveStart: November 19, 2024 Elissa Mcgovern , APRNOther ProviderActiveStart: November 19, 2024 Dejuan Small MDOther ProviderActiveStart: November 19, 2024 Harlan Jones MDOther ProviderActiveStart: November 19, 2024 Carlo Paredes MDOther ProviderActiveStart: November 19, 2024 Dat Broussard MDOther ProviderActiveStart: November 19, 2024 Elina Sepulveda , APRNOther ProviderActiveStart: November 19, 2024 Kb Trevino , APRNOther ProviderActiveStart: November 19, 2024 Cinthia Pena RNOther ProviderActiveStart: November 19, 2024 Harlan Herron MDOther ProviderActiveStart: November 19, 2024 Team Status: Active Member Role Status Dates Marlee Malcolm BROWNING PROCESSOR-C Primary Care Provider Active Start: November 25, 2024 Matthew Nielson ProviderActiveStart: November 25, 2024 Antonio Roche MDAttending ProviderActiveStart: November 25, 2024 Dejuan Small MDOther ProviderActiveStart: November 25, 2024 Beryl Parker MDOther ProviderActiveStart: November 25, 2024 Coleen Torres MDOther ProviderActiveStart: November 25, 2024 Harlan Jones MDOther ProviderActiveStart: November 25, 2024 Kb Trevino APRNOther ProviderActiveStart: November 25, 2024 Elissa Mcgovern APRNOther ProviderActiveStart: November 25, 2024 Cinthia Pena RNOther ProviderActiveStart: November 25, 2024 Carlo Paredes MDOther ProviderActiveStart: November 25, 2024 John Montana MDOther ProviderActiveStart: November 25, 2024 Mikhail Flores MDOther ProviderActiveStart: November 25, 2024 Love Tubbs , ANNALISEOther ProviderActiveStart: November 25, 2024 Jayson Deal MDOther ProviderActiveStart: November 25, 2024 Sara Liriano MDOther ProviderActiveStart: November 25, 2024 Jovon Cramer DOOther ProviderActiveStart: November 25, 2024 Karine Alexander , ANNALISEOther ProviderActiveStart: November 25, 2024 Carlo Bradford MDOther ProviderActiveStart: November 25, 2024 Merlin Swift , APRNOther ProviderActiveStart: November 25, 2024 Orestes Slaughter MDOther ProviderActiveStart: November 25, 2024 Alexis Dickson MDOther ProviderActiveStart: November 25, 2024 Adalgisa Britt RNOther ProviderActiveStart: November 25, 2024 Elina Sepulveda , APRNOther ProviderActiveStart: November 25, 2024 Anil Baires , DOOther ProviderActiveStart: November 25, 2024 Ksenia Rosario MDOther ProviderActiveStart: November 25, 2024 Joey Avelar , DOOther ProviderActiveStart: November 25, 2024 Kailee Peterson , BROWNING PROCESSOR-COther ProviderActiveStart: November 25, 2024 Jacinto Billy MDOther ProviderActiveStart: November 25, 2024 Kemar Brown , DOOther ProviderActiveStart: November 25, 2024 Debby Landaverde , DOOther ProviderActiveStart: November 25, 2024 Nicholas Mckinley MDOther ProviderActiveStart: November 25, 2024 Jovon Mendez DOOther ProviderActiveStart: November 25, 2024 Argelia Aguiar , APRNOther ProviderActiveStart: November 25, 2024 Cindy Brown , APRNOther ProviderActiveStart: November 25, 2024 Richard Grier MDOther ProviderActiveStart: November 25, 2024 Dat Broussard MDOther ProviderActiveStart: November 25, 2024 Doris Hallman MDOther ProviderActiveStart: November 25, 2024 Tamia Herron , ANNALISEOther ProviderActiveStart: November 25, 2024 Gabrielle Palafox , RNOther ProviderActiveStart: November 25, 2024 Tonya Singh RNOther ProviderActiveStart: November 25, 2024 Abhishek Ngo MDOther ProviderActiveStart: November 25, 2024 Herminia Ashton MDOther ProviderActiveStart: November 25, 2024 Mayur Nogueira MDOther ProviderActiveStart: November 25, 2024 Areli Bear , APRNOther ProviderActiveStart: November 25, 2024 Debbie Mendoza , APRNOther ProviderActiveStart: November 25, 2024 Tej Rocha MDOther ProviderActiveStart: November 25, 2024 Acosta Potts DOOther ProviderActiveStart: November 25, 2024 Maximo Zelaya MDOther ProviderActiveStart: November 25, 2024 Team Status: Active Member Role Status Dates Marlee Malcolm BROWNING PROCESSOR-C Primary Care Provider Active Start: November 25, 2024 Micky Nielsonit ProviderActiveStart: November 25, 2024 Antonio Roche MDAttending ProviderActiveStart: November 25, 2024 Antonio Roche MDOther ProviderActiveStart: November 25, 2024 Adalgisa Britt RNOther ProviderActiveStart: November 25, 2024 Karine Alexander RNOther ProviderActiveStart: November 25, 2024 Love Tubbs , ANNALISEOther ProviderActiveStart: November 25, 2024 Gabrielle Palafox RNOther ProviderActiveStart: November 25, 2024 Tonya Singh RNOther ProviderActiveStart: November 25, 2024 Tamia Herron RNOther ProviderActiveStart: November 25, 2024 Nicholas Mckinley MDOther ProviderActiveStart: November 25, 2024 Debby Landaverde , DOOther ProviderActiveStart: November 25, 2024 Jacinto Billy MDOther ProviderActiveStart: November 25, 2024 Joey Avelar , DOOther ProviderActiveStart: November 25, 2024 Richard Grier MDOther ProviderActiveStart: November 25, 2024 Herminia Ashton MDOther ProviderActiveStart: November 25, 2024 Jovon Mendez , DOOther ProviderActiveStart: November 25, 2024 Carlo Bradford MDOther ProviderActiveStart: November 25, 2024 Debbie Mendoza , APRNOther ProviderActiveStart: November 25, 2024 Maximo Zelaya MDOther ProviderActiveStart: November 25, 2024 Doris Hallman MDOther ProviderActiveStart: November 25, 2024 Ksenia Rosario MDOther ProviderActiveStart: November 25, 2024 Jovon Cramer , DOOther ProviderActiveStart: November 25, 2024 Abhishek Ngo MDOther ProviderActiveStart: November 25, 2024 Alexis Dickson MDOther ProviderActiveStart: November 25, 2024 Kailee Peterson , BROWNING PROCESSOR-COther ProviderActiveStart: November 25, 2024 Merlin Swift , APRNOther ProviderActiveStart: November 25, 2024 Jayson Deal MDOther ProviderActiveStart: November 25, 2024 Tej Rocha MDOther ProviderActiveStart: November 25, 2024 Coleen Torres MDOther ProviderActiveStart: November 25, 2024 Kemar Brown , DOOther ProviderActiveStart: November 25, 2024 Cindy Brown , APRNOther ProviderActiveStart: November 25, 2024 Acosta Potts , DOOther ProviderActiveStart: November 25, 2024 John Montana MDOther ProviderActiveStart: November 25, 2024 Areli Bear , APRNOther ProviderActiveStart: November 25, 2024 Argelia Aguiar , APRNOther ProviderActiveStart: November 25, 2024 Beryl Parker MDOther ProviderActiveStart: November 25, 2024 Orestes Slaughter MDOther ProviderActiveStart: November 25, 2024 Anil Baires , DOOther ProviderActiveStart: November 25, 2024 Mayur Nogueira MDOther ProviderActiveStart: November 25, 2024 Mikhail Flores MDOther ProviderActiveStart: November 25, 2024 Elissa Mcgovern , APRNOther ProviderActiveStart: November 25, 2024 Dejuan Small MDOther ProviderActiveStart: November 25, 2024 Harlan Jones MDOther ProviderActiveStart: November 25, 2024 Carlo Paredes MDOther ProviderActiveStart: November 25, 2024 Dat Broussard MDOther ProviderActiveStart: November 25, 2024 Elina Sepulveda , APRNOther ProviderActiveStart: November 25, 2024 Kb Trevino , APRNOther ProviderActiveStart: November 25, 2024 Sara Liriano MDOther ProviderActiveStart: November 25, 2024 Cinthia Pena , ANNALISEOther ProviderActiveStart: November 25, 2024 Team Status: Active Member Role Status Dates Marlee Malcolm BROWNING PROCESSOR-C Primary Care Provider Active Start: November 26, 2024 Fred Hernandez II, MDAttending ProviderActiveStart: November 26, 2024 Fred Hernandez II, MDOther ProviderActiveStart: November 26, 2024 Adalgisa Britt , ANNALISEOther ProviderActiveStart: November 26, 2024 Karine Alexander , ANNALISEOther ProviderActiveStart: November 26, 2024 Love Tubbs , ANNALISEOther ProviderActiveStart: November 26, 2024 Gabrielle Palafox RNOther ProviderActiveStart: November 26, 2024 Tonya Singh , ANNALISEOther ProviderActiveStart: November 26, 2024 Tamia Herron , ANNALISEOther ProviderActiveStart: November 26, 2024 Nicholas Mckinley MDOther ProviderActiveStart: November 26, 2024 Debby Landaverde DOOther ProviderActiveStart: November 26, 2024 Jacinto Billy MDOther ProviderActiveStart: November 26, 2024 Joey Avelar , DOOther ProviderActiveStart: November 26, 2024 Richard Grier MDOther ProviderActiveStart: November 26, 2024 Herminia Ashton MDOther ProviderActiveStart: November 26, 2024 Jovon Mendez , DOOther ProviderActiveStart: November 26, 2024 Carlo Bradford MDOther ProviderActiveStart: November 26, 2024 Debbie Mendoza , APRNOther ProviderActiveStart: November 26, 2024 Maximo Zelaya MDOther ProviderActiveStart: November 26, 2024 Doris Hallman MDOther ProviderActiveStart: November 26, 2024 Ksenia Rosario MDOther ProviderActiveStart: November 26, 2024 Jovon Cramer , DOOther ProviderActiveStart: November 26, 2024 Abhishek Ngo MDOther ProviderActiveStart: November 26, 2024 Alexis Dickson MDOther ProviderActiveStart: November 26, 2024 Kailee Peterson , BROWNING PROCESSOR-COther ProviderActiveStart: November 26, 2024 Merlin Swift , APRNOther ProviderActiveStart: November 26, 2024 Jayson Deal MDOther ProviderActiveStart: November 26, 2024 Tej Rocha MDOther ProviderActiveStart: November 26, 2024 Coleen Torres MDOther ProviderActiveStart: November 26, 2024 Kemar Brown , DOOther ProviderActiveStart: November 26, 2024 Cindy Brown , APRNOther ProviderActiveStart: November 26, 2024 Acosta Potts , DOOther ProviderActiveStart: November 26, 2024 John Montana MDOther ProviderActiveStart: November 26, 2024 Areli Bear , APRNOther ProviderActiveStart: November 26, 2024 Argelia Aguiar , APRNOther ProviderActiveStart: November 26, 2024 Beryl Parker MDOther ProviderActiveStart: November 26, 2024 Orestes Slaughter MDOther ProviderActiveStart: November 26, 2024 Anil Baires , DOOther ProviderActiveStart: November 26, 2024 Mayur Nogueira MDOther ProviderActiveStart: November 26, 2024 Mikhail Flores MDOther ProviderActiveStart: November 26, 2024 Elissa Mcgovern , APRNOther ProviderActiveStart: November 26, 2024 Dejuan Small MDOther ProviderActiveStart: November 26, 2024 Harlan Jones MDOther ProviderActiveStart: November 26, 2024 Carlo Paredes MDOther ProviderActiveStart: November 26, 2024 Dat Broussard MDOther ProviderActiveStart: November 26, 2024 Elina Sepulveda , APRNOther ProviderActiveStart: November 26, 2024 bK Trevino , APRNOther ProviderActiveStart: November 26, 2024 Cinthia Pena RNOther ProviderActiveStart: November 26, 2024 Harlan Herron MDOther ProviderActiveStart: November 26, 2024 Team Status: Active Member Role Status Dates Marlee Malcolm BROWNING PROCESSOR-C Primary Care Provider Active Start: December 02, 2024 Matthew Nielson ProviderActiveStart: December 02, 2024 Antonio Roche MDAttending ProviderActiveStart: December 02, 2024 Antonio Roche MDOther ProviderActiveStart: December 02, 2024 Adalgisa Britt , ANNALISEOther ProviderActiveStart: December 02, 2024 Karine Alexander , ANNALISEOther ProviderActiveStart: December 02, 2024 Love Tubbs , ANNALISEOther ProviderActiveStart: December 02, 2024 Gabrielle Palafox , ANNALISEOther ProviderActiveStart: December 02, 2024 Tonya Singh RNOther ProviderActiveStart: December 02, 2024 Tamia Herron , ANNALISEOther ProviderActiveStart: December 02, 2024 Nicholas Mckinley MDOther ProviderActiveStart: December 02, 2024 Debby Landaverde DOOther ProviderActiveStart: December 02, 2024 Jacinto Billy MDOther ProviderActiveStart: December 02, 2024 Joey Avelar , DOOther ProviderActiveStart: December 02, 2024 Richard Grier MDOther ProviderActiveStart: December 02, 2024 Herminia Ashton MDOther ProviderActiveStart: December 02, 2024 Jovon Mendez , DOOther ProviderActiveStart: December 02, 2024 Carlo Bradford MDOther ProviderActiveStart: December 02, 2024 Debbie Mendoza , APRNOther ProviderActiveStart: December 02, 2024 Maximo Zelaya MDOther ProviderActiveStart: December 02, 2024 Doris Hallman MDOther ProviderActiveStart: December 02, 2024 Ksenia Rosario MDOther ProviderActiveStart: December 02, 2024 Jovon Cramer , DOOther ProviderActiveStart: December 02, 2024 Abhishek Ngo MDOther ProviderActiveStart: December 02, 2024 Alexis Dickson MDOther ProviderActiveStart: December 02, 2024 Kailee Peterson , BROWNING PROCESSOR-COther ProviderActiveStart: December 02, 2024 Merlin Swift , APRNOther ProviderActiveStart: December 02, 2024 Jayson Deal MDOther ProviderActiveStart: December 02, 2024 Tej Rocha MDOther ProviderActiveStart: December 02, 2024 Coleen Torres MDOther ProviderActiveStart: December 02, 2024 Kemar Brown , DOOther ProviderActiveStart: December 02, 2024 Cindy Brown , APRNOther ProviderActiveStart: December 02, 2024 Acosta Potts , DOOther ProviderActiveStart: December 02, 2024 John Montana MDOther ProviderActiveStart: December 02, 2024 Areli Bear , APRNOther ProviderActiveStart: December 02, 2024 Argelia Aguiar , APRNOther ProviderActiveStart: December 02, 2024 Beryl Parker MDOther ProviderActiveStart: December 02, 2024 Orestes Slaughter MDOther ProviderActiveStart: December 02, 2024 Anil Baires , DOOther ProviderActiveStart: December 02, 2024 Mayur Nogueira MDOther ProviderActiveStart: December 02, 2024 Mikhail Flores MDOther ProviderActiveStart: December 02, 2024 Elissa Mcgovern , APRNOther ProviderActiveStart: December 02, 2024 Dejuan Small MDOther ProviderActiveStart: December 02, 2024 Harlan Jones MDOther ProviderActiveStart: December 02, 2024 Carlo Paredes MDOther ProviderActiveStart: December 02, 2024 Dat Broussard MDOther ProviderActiveStart: December 02, 2024 Elina Sepulveda , APRNOther ProviderActiveStart: December 02, 2024 Kb Trevino , APRNOther ProviderActiveStart: December 02, 2024 Sara Liriano MDOther ProviderActiveStart: December 02, 2024 Cinthia Pena RNOther ProviderActiveStart: December 02, 2024 Team Status: Inactive Member Role Status Dates Lucie Yanes APRN Attending Provider Active Start: December 04, 2024 End: December 04, 2024Marlee [facility] ProviderActiveStart: December 04, 2024 End: December 04, 2024 Team Status: Inactive Member Role Status Dates Marlee Malcolm BROWNING PROCESSOR-C Primary Care Provider Active Start: December 06, 2024 End: December 06, 2024Robfadumo Hernandez II MDAttending ProviderActiveStart: December 06, 2024 End: December 06, 2024 Team Status: Active Member Role/Relationship Status Dates Marlee Malcolm BROWNING PROCESSOR-C Primary Care Provider Active Team Status: Inactive Member Role/Relationship Status Dates Marlee Malcolm BROWNING PROCESSOR-C Primary Care Provider Active Start: November 01, 2024 End: November 01, 2024Fred Hernandez II MDAttending ProviderActiveStart: November 01, 2024 End: November 01, 2024 Team Status: Active Member Role/Relationship Status Dates Marlee Malcolm BROWNING PROCESSOR-C Primary Care Provider Active Start: November 07, 2024 Fred Hernandez II, MDAttending ProviderActiveStart: November 07, 2024 Team Status: Inactive Member Role/Relationship Status Dates Marlee Malcolm BROWNING PROCESSOR-C Primary Care Provider Active Start: November 07, 2024 End: November 07, 2024Fred Hernandez II, MDAttending ProviderActiveStart: November 07, 2024 End: November 07, 2024 Team Status: Inactive Member Role/Relationship Status Dates Marlee Malcolm BROWNING PROCESSOR-C Primary Care Provider Active Start: November 08, 2024 End: November 08, 2024Robfadumo Hernandez II, MDAttending ProviderActiveStart: November 08, 2024 End: November 08, 2024 Team Status: Inactive Member Role/Relationship Status Dates Curtis Morales MD Attending Provider Activ e Start: November 12, 2024 End: November 12, 2024Marlee Malcolm BROWNING PROCESSOR-CPrimary Care ProviderActiveStart: November 12, 2024 End: November 12, 2024 Team Status: Active Member Role/Relationship Status Dates Marlee Malcolm BROWNING PROCESSOR-C Primary Care Provider Active Start: November 19, 2024 Fred Hernandez II MDAttending ProviderActiveStart: November 19, 2024 Fred Hernandez II, MDOther ProviderActiveStart: November 19, 2024 Adalgisa Britt , RNOther ProviderActiveStart: November 19, 2024 Karine Alexander , ANNALISEOther ProviderActiveStart: November 19, 2024 Love Tubbs , ANNALISEOther ProviderActiveStart: November 19, 2024 Gabrielle Palafox , ANNALISEOther ProviderActiveStart: November 19, 2024 Tonya Singh , ANNALISEOther ProviderActiveStart: November 19, 2024 Tamia Herron , ANNALISEOther ProviderActiveStart: November 19, 2024 Nicholas Mckinley MDOther ProviderActiveStart: November 19, 2024 Debby Landaverde , DOOther ProviderActiveStart: November 19, 2024 Jacinto Billy MDOther ProviderActiveStart: November 19, 2024 Joey Avelar , DOOther ProviderActiveStart: November 19, 2024 Richard Grier MDOther ProviderActiveStart: November 19, 2024 Herminia Ashton MDOther ProviderActiveStart: November 19, 2024 Jovon Mendez , DOOther ProviderActiveStart: November 19, 2024 Carlo Bradford MDOther ProviderActiveStart: November 19, 2024 Debbie Mendoza , APRNOther ProviderActiveStart: November 19, 2024 Maximo Zelaya MDOther ProviderActiveStart: November 19, 2024 Doris Hallman MDOther ProviderActiveStart: November 19, 2024 Ksenia Rosario MDOther ProviderActiveStart: November 19, 2024 Jovon Cramer DOOther ProviderActiveStart: November 19, 2024 Abhishek Ngo MDOther ProviderActiveStart: November 19, 2024 Alexis Dickson MDOther ProviderActiveStart: November 19, 2024 Kailee Peterson , BROWNING PROCESSOR-COther ProviderActiveStart: November 19, 2024 Merlin Swift , APRNOther ProviderActiveStart: November 19, 2024 Jayson Deal MDOther ProviderActiveStart: November 19, 2024 Tej Rocha MDOther ProviderActiveStart: November 19, 2024 Coleen Torres MDOther ProviderActiveStart: November 19, 2024 Kemar Brown , DOOther ProviderActiveStart: November 19, 2024 Cindy Brown , APRNOther ProviderActiveStart: November 19, 2024 Acosta Potts , DOOther ProviderActiveStart: November 19, 2024 John Montana MDOther ProviderActiveStart: November 19, 2024 Areli Bear , APRNOther ProviderActiveStart: November 19, 2024 Argelia Aguiar , APRNOther ProviderActiveStart: November 19, 2024 Beryl Parker MDOther ProviderActiveStart: November 19, 2024 Orestes Slaughter MDOther ProviderActiveStart: November 19, 2024 Anil Baires , DOOther ProviderActiveStart: November 19, 2024 Mayur Nogueira MDOther ProviderActiveStart: November 19, 2024 Mikhail Flores MDOther ProviderActiveStart: November 19, 2024 Elissa Mcgovern , APRNOther ProviderActiveStart: November 19, 2024 Dejuan Small MDOther ProviderActiveStart: November 19, 2024 Harlan Jones MDOther ProviderActiveStart: November 19, 2024 Carlo Paredes MDOther ProviderActiveStart: November 19, 2024 Dat Broussard MDOther ProviderActiveStart: November 19, 2024 Elina Sepulveda , APRNOther ProviderActiveStart: November 19, 2024 Kb Trevino , APRNOther ProviderActiveStart: November 19, 2024 Cinthia Pena RNOther ProviderActiveStart: November 19, 2024 Harlan Herron MDOther ProviderActiveStart: November 19, 2024 Team Status: Active Member Role/Relationship Status Dates Marlee Malcolm BROWNING PROCESSOR-C Primary Care Provider Active Start: November 25, 2024 Antonio Roche MDAdmit ProviderActiveStart: November 25, 2024 Antonio Roche MDAttending ProviderActiveStart: November 25, 2024 Antonio Roceh MDOther ProviderActiveStart: November 25, 2024 Adalgisa Britt , ANNALISEOther ProviderActiveStart: November 25, 2024 Karine Alexander , ANNALISEOther ProviderActiveStart: November 25, 2024 Love Tubbs , ANNALISEOther ProviderActiveStart: November 25, 2024 Gabrielle Palafox , ANNALISEOther ProviderActiveStart: November 25, 2024 Tonya Singh , ANNALISEOther ProviderActiveStart: November 25, 2024 Tamia Herron , ANNALISEOther ProviderActiveStart: November 25, 2024 Nicholas Mckinley MDOther ProviderActiveStart: November 25, 2024 Debby Landaverde , DOOther ProviderActiveStart: November 25, 2024 Jacinto Billy MDOther ProviderActiveStart: November 25, 2024 Joey Avelar , DOOther ProviderActiveStart: November 25, 2024 Richard Grier MDOther ProviderActiveStart: November 25, 2024 Herminia Ashton MDOther ProviderActiveStart: November 25, 2024 Jovon Mendez , DOOther ProviderActiveStart: November 25, 2024 Carlo Bradford MDOther ProviderActiveStart: November 25, 2024 Debbie Mendoza , APRNOther ProviderActiveStart: November 25, 2024 Maximo Zelaya MDOther ProviderActiveStart: November 25, 2024 Doris Hallman MDOther ProviderActiveStart: November 25, 2024 Ksenia Rosario MDOther ProviderActiveStart: November 25, 2024 Jovon Cramer , DOOther ProviderActiveStart: November 25, 2024 Abhishek Ngo MDOther ProviderActiveStart: November 25, 2024 Alexis Dickson MDOther ProviderActiveStart: November 25, 2024 Kailee Peterson , BROWNING PROCESSOR-COther ProviderActiveStart: November 25, 2024 Merlin Swift , APRNOther ProviderActiveStart: November 25, 2024 Jayson Deal MDOther ProviderActiveStart: November 25, 2024 Tej Rocha MDOther ProviderActiveStart: November 25, 2024 Coleen Torres MDOther ProviderActiveStart: November 25, 2024 Kemar Brown , DOOther ProviderActiveStart: November 25, 2024 Cindy Brown , APRNOther ProviderActiveStart: November 25, 2024 Acosta Potts , DOOther ProviderActiveStart: November 25, 2024 John Montana MDOther ProviderActiveStart: November 25, 2024 Areli Bear , APRNOther ProviderActiveStart: November 25, 2024 Argelia Aguiar , APRNOther ProviderActiveStart: November 25, 2024 Beryl Parker MDOther ProviderActiveStart: November 25, 2024 Orestes Slaughter MDOther ProviderActiveStart: November 25, 2024 Anil Baires , DOOther ProviderActiveStart: November 25, 2024 Mayur Nogueira MDOther ProviderActiveStart: November 25, 2024 Mikhail Flores MDOther ProviderActiveStart: November 25, 2024 Elissa Mcgovern , APRNOther ProviderActiveStart: November 25, 2024 Dejuan Small MDOther ProviderActiveStart: November 25, 2024 Harlan Jones MDOther ProviderActiveStart: November 25, 2024 Carlo Paredes MDOther ProviderActiveStart: November 25, 2024 Dat Broussard MDOther ProviderActiveStart: November 25, 2024 Elina Sepulveda , APRNOther ProviderActiveStart: November 25, 2024 Kb Trevino , APRNOther ProviderActiveStart: November 25, 2024 Sara Liriano MDOther ProviderActiveStart: November 25, 2024 Cinthia Pena , ANNALISEOther ProviderActiveStart: November 25, 2024 Team Status: Active Member Role/Relationship Status Dates Marlee Malcolm , BROWNING PROCESSOR-C Primary Care Provider Active Start: November 26, 2024 Fred Hernandez II, MDAttending ProviderActiveStart: November 26, 2024 rFed Hernandez II, MDOther ProviderActiveStart: November 26, 2024 Adalgisa Britt , ANNALISEOther ProviderActiveStart: November 26, 2024 Karine Alexander , ANNALISEOther ProviderActiveStart: November 26, 2024 Love Tubbs , ANNALISEOther ProviderActiveStart: November 26, 2024 Gabrielle Palafox , ANNALISEOther ProviderActiveStart: November 26, 2024 Tonya Singh , ANNALISEOther ProviderActiveStart: November 26, 2024 Tamia Herron , ANNALISEOther ProviderActiveStart: November 26, 2024 Nicholas Mckinley MDOther ProviderActiveStart: November 26, 2024 Debby Landaverde , DOOther ProviderActiveStart: November 26, 2024 Jacinto Billy MDOther ProviderActiveStart: November 26, 2024 Joey Avelar DOOther ProviderActiveStart: November 26, 2024 Richard Grier MDOther ProviderActiveStart: November 26, 2024 Herminia Ashton MDOther ProviderActiveStart: November 26, 2024 Jovon Menolasino , DOOther ProviderActiveStart: November 26, 2024 Carlo Bradford MDOther ProviderActiveStart: November 26, 2024 Debbie Mendoza , APRNOther ProviderActiveStart: November 26, 2024 Maximo Zelaya MDOther ProviderActiveStart: November 26, 2024 Doris Hallman MDOther ProviderActiveStart: November 26, 2024 Ksenia Rosario MDOther ProviderActiveStart: November 26, 2024 Jovon Cramer , DOOther ProviderActiveStart: November 26, 2024 Abhishek Ngo MDOther ProviderActiveStart: November 26, 2024 Alexis Dickson MDOther ProviderActiveStart: November 26, 2024 Kailee Pteerson , BROWNING PROCESSOR-COther ProviderActiveStart: November 26, 2024 Merlin Swift , APRNOther ProviderActiveStart: November 26, 2024 Jayson Deal MDOther ProviderActiveStart: November 26, 2024 Tej Rocha MDOther ProviderActiveStart: November 26, 2024 Coleen Torres MDOther ProviderActiveStart: November 26, 2024 Kemar Brown , DOOther ProviderActiveStart: November 26, 2024 Cindy Brown , APRNOther ProviderActiveStart: November 26, 2024 Acosta Potts , DOOther ProviderActiveStart: November 26, 2024 John Montana MDOther ProviderActiveStart: November 26, 2024 Areli Bear , APRNOther ProviderActiveStart: November 26, 2024 Argelia Aguiar , APRNOther ProviderActiveStart: November 26, 2024 Beryl Parker MDOther ProviderActiveStart: November 26, 2024 Orestes Slaughter MDOther ProviderActiveStart: November 26, 2024 Anil Baires , DOOther ProviderActiveStart: November 26, 2024 Mayur Nogueira MDOther ProviderActiveStart: November 26, 2024 Mikhail Flores MDOther ProviderActiveStart: November 26, 2024 Elissa Mcgovern , APRNOther ProviderActiveStart: November 26, 2024 Dejuan Small MDOther ProviderActiveStart: November 26, 2024 Harlan Jones MDOther ProviderActiveStart: November 26, 2024 Carlo Paredes MDOther ProviderActiveStart: November 26, 2024 Dat Broussard MDOther ProviderActiveStart: November 26, 2024 Elina Sepulveda , APRNOther ProviderActiveStart: November 26, 2024 Kb Trevino , APRNOther ProviderActiveStart: November 26, 2024 Cinthia Pena , ANNALISEOther ProviderActiveStart: November 26, 2024 Harlan Herron MDOther ProviderActiveStart: November 26, 2024 Team Status: Active Member Role/Relationship Status Dates Marlee Malcolm , BROWNING PROCESSOR-C Primary Care Provider Active Start: December 02, 2024 Antonio Roche MDAdmit ProviderActiveStart: December 02, 2024 Antonio Roche MDAttending ProviderActiveStart: December 02, 2024 Antonio Roche MDOther ProviderActiveStart: December 02, 2024 Adalgisa Britt , ANNALISEOther ProviderActiveStart: December 02, 2024 Karine Alexander , ANNALISEOther ProviderActiveStart: December 02, 2024 Love Tubbs , ANNALISEOther ProviderActiveStart: December 02, 2024 Gabrielle Palafox , ANNALISEOther ProviderActiveStart: December 02, 2024 Tonya Singh , ANNALISEOther ProviderActiveStart: December 02, 2024 Tamia Herron , ANNALISEOther ProviderActiveStart: December 02, 2024 Nicholas Mckinley MDOther ProviderActiveStart: December 02, 2024 Debby Landaverde , DOOther ProviderActiveStart: December 02, 2024 Jacinto Billy MDOther ProviderActiveStart: December 02, 2024 Joey Avelar , DOOther ProviderActiveStart: December 02, 2024 Richard Grier MDOther ProviderActiveStart: December 02, 2024 Herminia Ashton MDOther ProviderActiveStart: December 02, 2024 Jovon Menolasino , DOOther ProviderActiveStart: December 02, 2024 Carlo Bradford MDOther ProviderActiveStart: December 02, 2024 Debbie Mendoza , APRNOther ProviderActiveStart: December 02, 2024 Maximo Zelaya MDOther ProviderActiveStart: December 02, 2024 Doris Hallman MDOther ProviderActiveStart: December 02, 2024 Ksenia Rosario MDOther ProviderActiveStart: December 02, 2024 Jovon Cramer , DOOther ProviderActiveStart: December 02, 2024 Abhishek Ngo MDOther ProviderActiveStart: December 02, 2024 Alexis Dickson MDOther ProviderActiveStart: December 02, 2024 Kailee Peterson BROWNING PROCESSOR-COther ProviderActiveStart: December 02, 2024 Merlin wSift , APRNOther ProviderActiveStart: December 02, 2024 Jayson Deal MDOther ProviderActiveStart: December 02, 2024 Tej Rocha MDOther ProviderActiveStart: December 02, 2024 Coleen Torres MDOther ProviderActiveStart: December 02, 2024 Kemar Brown , DOOther ProviderActiveStart: December 02, 2024 Cindy Brown , APRNOther ProviderActiveStart: December 02, 2024 Acosta Potts , DOOther ProviderActiveStart: December 02, 2024 John Montana MDOther ProviderActiveStart: December 02, 2024 Areli Bear , APRNOther ProviderActiveStart: December 02, 2024 Argelia Aguiar , APRNOther ProviderActiveStart: December 02, 2024 Beryl Parker MDOther ProviderActiveStart: December 02, 2024 Orestes Slaughter MDOther ProviderActiveStart: December 02, 2024 Anil Baires , DOOther ProviderActiveStart: December 02, 2024 Mayur Nogueira MDOther ProviderActiveStart: December 02, 2024 Mikhail Flores MDOther ProviderActiveStart: December 02, 2024 Elissa Mcgovern , APRNOther ProviderActiveStart: December 02, 2024 Dejuan Small MDOther ProviderActiveStart: December 02, 2024 Harlan Jones MDOther ProviderActiveStart: December 02, 2024 Carlo Paredes MDOther ProviderActiveStart: December 02, 2024 Dat Broussard MDOther ProviderActiveStart: December 02, 2024 Elina Sepulveda , APRNOther ProviderActiveStart: December 02, 2024 Kb Trevino , APRNOther ProviderActiveStart: December 02, 2024 Sara Liriano MDOther ProviderActiveStart: December 02, 2024 Cinthia Pena RNOther ProviderActiveStart: December 02, 2024 Team Status: Inactive Member Role/Relationship Status Dates Lucie Yanes APRN Attending Provider Active Start: December 04, 2024 End: December 04, 2024Jovicenta Malcolm , BROWNING PROCESSOR-CPrimary Care ProviderActiveStart: December 04, 2024 End: December 04, 2024 Team Status: Inactive Member Role/Relationship Status Dates Marlee Malcolm BROWNING PROCESSOR-C Primary Care Provider Active Start: December 06, 2024 End: December 06, 2024Tra Fagan II ProviderActiveStart: December 06, 2024 End: December 06, 2024 Team Status: Active Member Role/Relationship Status Dates Fred Hernandez II, MD Attending Provider Active Start: January 03, 2025 Marlee Malcolm , BROWNING PROCESSOR-CPrimary Care ProviderActiveStart: January 03, 2025 Team Status: Inactive Member Role/Relationship Status Dates Marlee Malcolm BROWNING PROCESSOR-C Primary Care Provider Active Start: January 03, 2025 End: January 03, 2025Vanessa Fagan IIending ProviderActiveStart: January 03, 2025 End: January 03, 2025 Team Status: Inactive Member Role/Relationship Status Dates Fred Hernandez II, MD Attending Provider Active Start: January 03, 2025 End: January 03, 2025Marlee Malcolm , BROWNING PROCESSOR-CPrimary Care ProviderActiveStart: January 03, 2025 End: January 03, 2025 REASON FOR VISIT (unrecogniz ed section and content) ReasonCommentsAnnual HcdcTjewww-jzYbnbqpGfetmxzxMertpc-viRskcfdOoclpqcnCoym CallousesRT 5th digit callusReasonCommentsMacular Degeneration Goals (unrecognized section and content) Type Treatment Intervention Code Status: Full Code Goals may be documented in an alternate section FOR RECORDS PERTAINING TO PATIENTS [...] BE BASED ON THE PRIMARY CLINICAL RECORDS. [facility] [employer] [facility]. provides no warranty or guarantee of the accuracy or completeness of information in this document.
[2025-01-20] MEDS: TRAMADOL HCL 50 MG TABLET 100 MG PO (19:15)
[2025-01-20] MEDS: TRAMADOL HCL 50 MG TABLET PO (20:01)
== END 2025-01-20 20:07 | disposition home or self-care (01) ==
PROVIDERS: Emergency Provider Emergency Medicine
DX: B02.9 Zoster without complications (principal); Z96.641 Presence of right artificial hip joint; R52 Pain, unspecified
CPT/HCPCS: 99283

== ENCOUNTER 2025-01-23 13:41 | Outpatient (OUT) | payer MEDICARE, SELFPAY ==
--- OUTSIDE RECORDS SUMMARY | 2025-01-22 05:55 | XMS_ITS | Continuity of Care Document ---
Author Organization [facility] Address [address] [place] [address] Phone Care Team Providers Care Easter Bunny Name Role Phone YunMarlee Debbie UPSTAIRS MAID-C Primary Care Provider [phone] Fred Hernandez II, MD Attending Provider [phone] Curtis Morales MD Attending Provider Fred Hernandez II, MD Other Provider Adalgisa Britt RN Other Provider Unavailable Karine Alexander RN Other Provider Unavailable Love Tubbs RN Other Provider Unavailable Gabrielle Palafox RN Other Provider Unavailable Tonya Singh RN Other Provider Unavailable Tamia Herron RN Other Provider Unavailable Nicholas Mckinley MD Other Provider [phone] Debby Landaverde DO Other Provider Jacinto Billy MD Other Provider [phone] Joey Avelar DO Other Provider Richard Grier MD Other Provider Herminia Ashton MD Other Provider [phone] Jovon Mendez DO Other Provider Unavailab Carlo Carrington MD Other Provider Unavailable Debbie Mendoza APRN Other Provider Maximo Zelaya MD Other Provider Doris Hallman MD Other Provider Unavailable Ksenia Rosario MD Other Provider Jovon Cramer DO Other Provider Abhishek Ngo MD Other Provider Alexis Dickson MD Other Provider Kailee Peterson UPSTAIRS MAID-C Other Provider Merlin Swift C DEVELOPER Other Provider Unavailable Jayson Deal MD Other Provider [phone] Tej Rocha MD Other Provider Coleen Torres MD Other Provider Unavailable Kemar Brown DO Other Provider Cindy Brown C DEVELOPER Other Provider Acosta Potts DO Other Provider John Montana MD Other Provider Areli Bear C DEVELOPER Other Provider [phone] Argelia Aguiar C DEVELOPER Other Provider Beryl Parker MD Other Provider Unavailable rOestes Slaughter MD Other Provider [phone] DequanMartagurpreet DO Other Provider Mayur Nogueira MD Other Provider Mikhail Flores MD Other Provider Elissa Mcgovern APRN Other Provider Unavailable Dejuan Small MD Other Provider Harlan Jones MD Other Provider [phone] Carlo Paredes MD Other Provider [phone] Dat Broussard MD Other Provider Elina Sepulveda C DEVELOPER Other Provider Kb Trevino C DEVELOPER Other Provider Cinthia Pena RN Other Provider Unavailable Harlan Herron MD Other Provider Antonio Roche MD Admit Provider Antonio Roche MD Attending Provider Antonio Roche MD Other Provider Sara Liriano MD Other Provider Lucie Yanes APRN Attending Provider Care Teams Patient Care Team Team Status: Active Member Role/Relationship Status Dates Marlee Malcolm , UPSTAIRS MAID-C Primary Care Provider Active Visit Care Team Team Status: Inactive Member Role/Relationship Status Dates Mralee Malcolm , UPSTAIRS MAID-C Primary Care Provider Active Start: November 01, 2024 End: November 01, 2024Vanessa Fagan IIending ProviderActiveStart: November 01, 2024 End: November 01, 2024 Visit Care Team Team Status: Active Member Role/Relationship Status Dates Marlee Malcolm , UPSTAIRS MAID-C Primary Care Provider Active Start: November 07, 2024 Fred Hernandez II, MDAttending ProviderActiveStart: November 07, 2024 Visit Care Team Team Status: Inactive Member Role/Relationship Status Dates Marlee Malcolm , UPSTAIRS MAID-C Primary Care Provider Active Start: November 07, 2024 End: November 07, 2024Fred Hernandez II, MDAttending ProviderActiveStart: November 07, 2024 End: November 07, 2024 Visit Care Team Team Status: Inactive Member Role/Relationship Status Dates Marlee Malcolm , UPSTAIRS MAID-C Primary Care Provider Active Start: November 08, 2024 End: November 08, 2024Fred Hernandez II, MDAttending ProviderActiveStart: November 08, 2024 End: November 08, 2024 Visit Care Team Team Status: Inactive Member Role/Relationship Status Dates Curtis Morales MD Attending Provider Activ e Start: November 12, 2024 End: November 12, 2024Marlee Malcolm UPSTAIRS MAID-CPrimary Care ProviderActiveStart: November 12, 2024 End: November 12, 2024 Visit Care Team Team Status: Active Member Role/Relationship Status Dates Marlee Malcolm , FRANSISCO-C Primary Care Provider Active Start: November 19, [...] MDOther ProviderActiveStart: November 19, 2024 Jovon Mendez DOOther ProviderActiveStart: November 19, 2024 Carlo Bradford [...] ProviderActiveStart: November 19, 2024 Kailee Peterson , UPSTAIRS MAID-COther ProviderActiveStart: November 19, 2024 Merlin Swift , [...] Harlan Herron MDOther ProviderActiveStart: November 19, 2024 Visit Care Team Team Status: Active Member Role/Relationship Status Dates Marlee Malcolm , UPSTAIRS MAID-C Primary Care Provider Active Start: November 25, [...] Jovon Mendez DOOther ProviderActiveStart: November 25, 2024 Carlo Bradford MDOther ProviderActiveStart: November 25, 2024 Debbie Mendoza APRNOther ProviderActiveStart: November 25, 2024 Maximo Zelaya MDOther ProviderActiveStart: November 25, 2024 Doris Hallman MDOther ProviderActiveStart: November 25, 2024 Ksenia Rosario MDOther ProviderActiveStart: November 25, 2024 Jovon Cramer DOOther ProviderActiveStart: November 25, 2024 Abhishek Ngo MDOther ProviderActiveStart: November 25, 2024 Alexis Dickson MDOther ProviderActiveStart: November 25, 2024 Kailee J Trilla , UPSTAIRS MAID-COther ProviderActiveStart: November 25, 2024 Merlin Swift , [...] MDOther ProviderActiveStart: November 25, 2024 Cinthia Pena RNOther ProviderActiveStart: November 25, 2024 Visit Care Team Team Status: Active Member Role/Relationship Status Dates Marlee Debbie Yun , UPSTAIRS MAID-C Primary Care Provider Active Start: November 26, [...] MDOther ProviderActiveStart: November 26, 2024 Jovon Mendez DOOther ProviderActiveStart: November 26, 2024 Carlo Bradford MDOther ProviderActiveStart: November 26, 2024 Debbie Mendoza , APRNOther ProviderActiveStart: November 26, 2024 Maximo Zelaya MDOther ProviderActiveStart: November 26, 2024 Doris Hallman MDOther ProviderActiveStart: November 26, 2024 Ksenia Rosario MDOther ProviderActiveStart: November 26, 2024 Jovon Cramer DOOther ProviderActiveStart: November 26, 2024 Abhishek Ngo MDOther ProviderActiveStart: November 26, 2024 Alexis Dickson MDOther ProviderActiveStart: November 26, 2024 Kailee Peterson , UPSTAIRS MAID-COther ProviderActiveStart: November 26, 2024 Merlin Swift , [...] Harlan Herron MDOther ProviderActiveStart: November 26, 2024 Visit Care Team Team Status: Active Member Role/Relationship Status Dates Marlee Malcolm NP-C Primary Care Provider Active Start: December 02, 2024 Antonio Roche MDAdmit ProviderActiveStart: December 02, 2024 Antonio Roche MDAttending ProviderActiveStart: December 02, 2024 Antonio Roche MDOther ProviderActiveStart: December 02, 2024 Adalgisa Britt , ANNALISEOther ProviderActiveStart: December 02, 2024 Karine Alexander , ANNALISEOther ProviderActiveStart: December 02, 2024 Love Tubbs , ANNALISEOther ProviderActiveStart: December 02, 2024 Gabrielle Palafox , RNOther ProviderActiveStart: December 02, 2024 Tonya Singh , [...] MDOther ProviderActiveStart: December 02, 2024 Jovon Mendez DOOther ProviderActiveStart: December 02, 2024 Carlo Bradford MDOther ProviderActiveStart: December 02, 2024 Debbie Mendoza , APRNOther ProviderActiveStart: December 02, 2024 Maximo Zelaya MDOther ProviderActiveStart: December 02, 2024 Doris Hallman MDOther ProviderActiveStart: December 02, 2024 Ksenia Rosario MDOther ProviderActiveStart: December 02, 2024 Jovon Cramer DOOther ProviderActiveStart: December 02, 2024 Abhishek Ngo MDOther ProviderActiveStart: December 02, 2024 Alexis Dickson MDOther ProviderActiveStart: December 02, 2024 Kailee Peterson , UPSTAIRS MAID-COther ProviderActiveStart: December 02, 2024 Merlin Swift , [...] Cinthia Pena RNOther ProviderActiveStart: December 02, 2024 Visit Care Team Team Status: Inactive Member Role/Relationship Status Dates Lucie Yanes APRN Attending Provider Active Start: December 04, 2024 End: December 04, 2024Jovicenta Malcolm UPSTAIRS MAID-CPrimary Care ProviderActiveStart: December 04, 2024 End: December 04, 2024 Visit Care Team Team Status: Inactive Member Role/Relationship Status Dates Marlee Malcolm UPSTAIRS MAID-C Primary Care Provider Active Start: December 06, 2024 End: December 06, 2024Vanessa Fagan IIending ProviderActiveStart: December 06, 2024 End: December 06, 2024 Visit Care Team Team Status: Inactive Member Role/Relationship Status Dates Fred Hernandez II, MD Attending Provider Active Start: January 03, 2025 End: January 03, 2025Jovicenta Malcolm UPSTAIRS MAID-CPrimary Care ProviderActiveStart: January 03, 2025 End: January 03, 2025 Visit Care Team Team Status: Inactive Member Role/Relationship Status Dates Marlee Malcolm UPSTAIRS MAID-C Primary Care Provider Active Start: January 03, 2025 End: January 03, 2025RobTra Evans II ProviderActiveStart: January 03, 2025 End: January 03, 2025 Patient Care Team Team Status: Inactive Member Role/Relationship Status Dates Marlee Malcolm UPSTAIRS MAID-C Primary Care Provider Active Start: January 22, 2025 End: January 22, 2025Tra Fagan II ProviderActiveStart: January 22, 2025 End: January 22, 2025 Chief Complaint and Reason for Visit Chief Complaint Admit Date Hip pain November 01, 2024 10 :03am Pre-Op RTH November 07, 2024 12:37pm H&P RTHA- INPT/REHAB November 07, 2024 1:56pm Prolonged November 08, 2024 6:25am R94.31 I42.9 November 12, 2024 8:34am Hip pain November 19, 2024 8:00am [facility] 1:32[facility] Hip pain November 26, 2024 12:00am right hip oste[facility] 12:00am 3 month f/u December 04, 2024 10 :55am 2 WK POST OP RTHA December 06, 2024 9: 32am Z96.641 - 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 January 03, 2025 8:21am 4 WK RECHECK RTHA January 03, 2025 9 :59am RTHA RECHECK January 22, 2025 9:49am Reason for Visit Admit Date Primary osteoarthritis of right hip Nov 1:56pm Hypertension November 19, 2024 8:00am Personal history of poliomyelitis Sept2024 8:00am Status post total replacement of right [...] right h ip January 03, 2025 9:59am Aftercare following right hip joint repl acement surgery January 22, 2025 9:49am Status post total replacement of right h ip January 22, 2025 9:49am Reason for Referral Type Reason(s) Provider Provider Contact Information P rovider Address Start Date Follow up with rehab physician as neededCall to schedule follow up appointment with PCP after dischargeTarun Pollack MDWork Phone: [phone] [address] [place] [id number] up with rehab physician as neededChMely George Phone: [phone] [facility], [address] [facility] [address]Axof to schedule follow up appointment with PCP after discharge Marlee Malcolm CNPWork Phone: [facility] [address] [facility] [place] [address]UokiiwTarun Pollack MDWork Phone: [phone] [facility] [address] Allergies, Adverse Reactions, Alerts Allergen Type Severity Reaction Last Updated Verified Status amoxicillin Allergy Mild Unknown Reaction Novembe r 2024 10:35am Yes Active clavulanic acid Allergy Mild Unknown Reaction Nov ember 2024 10:35am Yes Active fluconazole Allergy Mild Unknown Reaction [facility] 2024 10:35am Yes Active tramadol Allergy Mild Unknown Reaction January 22, 2025 10:35am Yes Active Sulfa (Sulfonamide Antibiotics) Allergy Unknown Nausea January 22, 2025 10:35am Yes Active prednisone Adverse Reaction Unknown constipation January 22, 2025 10:35am Yes Active Social History Smoking Status Status Start Date End Date Date of Observa tion Never smoked tobacco (finding) December 04, 2024 11:04am Observation Status Observation Response Date of Response Legal Sex Female (finding) [facility] 1940 Social History Assessments Assessment Value Date Recorded SDOH Follow up December 02, 2024 9:41amQuestionAnswerDate RecordedHas the SDOH screening changed since admission?NSeptember 2024 9:41am Assessment Value Date Recorded SDOH Follow up November 25, 2024 9:51amQuestionAnswerDate RecordedHas the SDOH screening changed since admission?NSeptember 2024 9:51am Family History Relationship Condition Age at Onset Recorded Date/T lisa mother Malignant neoplasm of breast Unknown DeceasedUnknownfatherDementiaUnknownDeceasedUnknown Problems Active Problems Problem Diagnosis/Recorded Date Onset Date Status C omments Irregular heart beat July 10, 2018 1:28pm Unknown Activ e Fatty liverFebruary 2024 11:31amUnknownActiveStatus post total replacement of right hipSeptember 2024 7:19amUnknownActiveAftercare following right hip joint replacement surgeryOctober 2024 10:06amUnknownActivePersonal history of poliomyelitisJune 2024 11:17amUnknownActiveHypertensionMay 2018 1:28pmUnknownActiveLeft bundle branch block (LBBB)September 05, 2024 11:26am UnknownActiveInactive/Resolved Problems Problem Diagnosis/Recorded Date Onset Date Status C omments Primary osteoarthritis of ri ght hip May 09, 2024 1:45pm Unknown Resolved Impaired mobility and activities of daily livingSeptember 2024 3:16pm UnknownResolvedPostpolio syndromeSeptember 2024 3:16pmUnknownResolved DysphagiaMay 2018 10:23amUnknownResolvedProblem List clean-up per request of Phys. EHR CmteRadiculopathyJuly 2024 7:54pmUnknownResolvedRight hip pain May 07, 2024 3:02pmUnknownResolved Medications Medication Status Dose Units Route Directions Qty Days Refills S tart Date Stop Date End Date Reason(s) Instructions Adherence Ergocalciferol (Vitamin D2) 1,250 mcg (50,000 unit) capsule Discontinued 1250 MCG PO Q7D 8 60 0 Dane y 2024 11:00pm November 01, 2024 9:44amAreds 2 1 gidFviddvasjgig4NIONYNmxlh dailyMay 2018 11:00pmMay 2018 9:17amCandesartan 4 mg awdmnnMvvrnv0YLWFSjwbh at bedtime July 09, 2018 11:00pmComplies with drug therapySpironolactone 25 mg tablet Fpnvgwiqbadp41GOVRDwpxr morningMay 2018 11:00pmOctober 2024 10:24am Levothyroxine 50 mcg iodznrFattim65DUYBPDdfmd morningMay 2018 11:00pm Complies with drug therapyCalcium Carbonate (Tums) 200 mg calcium (500 mg) Tablet,IyylzxxjQkjorsirhhiw163GMKXOkclj dailyMay 2018 11:00pmJuly 2024 7:22amAspirin 81 mg Tablet,IdckaqxsHjpxuabqksfb45CPPUSkexiJek 2018 11:00pm November 25, 2024 1:06pmOn Hold: Resume on 12/25/24.Montelukast 10 mg tablet Gnamfb71FZPWQwqey morningMay 2018 11:00pmComplies with drug therapyDigoxin 125 mcg qlfmnxEbmnts046MKWKUXfpsw morningMay 2018 11:00pmComplies with drug therapyMetoprolol Succinate 25 mg tablet extended release 24 feSocuxq76YDSRWzypt eveningMay 2018 11:00pmComplies with drug therapyBudesonide-Formoterol 80- 4.5 mcg/actuation HFA aerosol juddfwdRoqezm9RLGDZTKEHCGRBUFabet dailyMay 2018 11:00pmComplies with drug therapyCelecoxib 200 mg qgjepreDyanurznbytm919QJ POTwice dailyMay 2018 11:00pmSeptember 2024 9:50amAcetaminophen (Tylenol Extra Strength) 500 mg SnyyqyDxovgnypxjkp017VNQMIkqkp daily as needed for PainMay 2018 11:00pmJuly 2024 7:22amVit C,X-Qa-Mdsja-Lutein-Zeaxan (Preservision Areds-2) 972-044-78-1 bh-mjps-bk-mg StpnlawAizxynwosmni3HAEWDUdljo dailyMay 2018 11:00pmJuly 2024 7:22amPrednisone 20 mg tablet Xrvlahwtzxey36AMYNWtrgz525Znch 2024 11:00pmAugust 2024 9:44am Hydrocodone-Acetaminophen 5-325 mg bdkdutIqqyniufdjnz0NTOMNDplvi times daily as needed for btsu795Tcav ugust 2024 9:44amRadiculopathy Radiculopathy, site unspecifiedAcetaminophen 500 mg EvubvgNuxasq9309GNCNB5Q as needed for Eftx15Wmbkfujqr 2024 11:00pmComplies with drug therapyCelecoxib 200 mg wpgvzddJpqaqxowzdzm142HTKWDkbfu daily as needed for mhfe468Qaleikicg 2024 9:49amNovember 2024 10:36amAspirin 81 mg tablet,delayed release (DR/EC)Gshjxksbmwcb11QMOPPazwl rgmku10905Hsurthktj 29th, 2025 9:49amOctober 2024 10:03amDO NOT RECONCILE UNTIL DOS:11/19/2024 MED TO BEDPantoprazole (Protonix) 20 mg tablet,delayed release (DR/EC)Uulkphkkyrsg74KNYUstlvv17166 December 02, 2024 9:49amOctober 2024 10:03amDO NOT RECONCILE UNTIL DOS:11/19/2024 MED TO BEDCalcium Carbonate (Calcium Antacid) 200 mg calcium (500 mg) tablet,kmwuhjgnXnuswe074LLQNGbelo morningAugust 2024 11:00pmComplies with drug therapyVit C,H-Eo-Pdulg-Lutein-Zeaxan (Preservision Areds-2) 250-90-40-1 mg cxtjohuLdewfy6TBOCWCpmjq dailyAugust 2024 11:00pmComplies with drug therapyAcetaminophen (Acetaminophen Extra Strength) 500 mg tablet Kkstgljdmaio751CWZDFxzpy dailyAugust 2024 11:00pmSeptember 2024 9:51amMeclizine 25 mg ubvjjdYkxrlo15NTWIMkbiw times daily as needed for dizzinessJuly 2024 11:00pmComplies with drug therapyAlbuterol Sulfate 90 mcg/actuation HFA aerosol rqodaqaGbjdeq5GEQRIWDVYLQQJBUHISI 4-6 HOURS as needed for shortness of breath or wheezingJuly 2024 11:00pmComplies with drug therapyCholecalciferol (Vitamin D3) 1,250 mcg (50,000 unit) capsuleDiscontinued 1250MCGPOTwice a WeekJuly 2024 11:00pmAugust 2024 9:44amAspirin 81 mg tablet,delayed release (DR/EC)Qeooan04AVQWvvwksSutrdrh 1st, 2025 10:00amComplies with drug therapySpironolactone 25 mg zlccwnMcnnfw43.5MGPOEvery qszpdbu80308 December 04, 2024 10:23amComplies with drug therapySennosides-Docusate Sodium (Senokot-S) 8.6-50 mg lcfufmNnxesjbwcqrw9CNHKNgmaeg04259Gelhkxsei 2024 11:00pmSeptember 2024 9:51amDO NOT RECONCILE UNTIL DOS:11/19/2024 MED TO BEDTramadol 50 mg zbkutkKuquuruzxcaj70VZSAM5I as needed for Nuqu2918Cpneqvxvl 3rd, 2025 11:00pmSeptember 2024 9:51amPrimary osteoarthritis of right hip Unilateral primary osteoarthritis, right hipDO NOT RECONCILE UNTIL DOS:11/19/2024 MED TO BEDAcetaminophen 500 mg dduuspUswqymuapsgf2633BFRRC7U963504Aajlepcdg 3rd, 2025 11:00pmSept2024 9:51amDO NOT RECONCILE UNTIL DOS:11/19/2024 MED TO BEDCefadroxil 500 mg eyershhRgivjqbeqthq558WEDPT96J9556Uaavzpiec 3rd, 2025 11:00pmSeptember 2024 9:51amDO NOT RECONCILE UNTIL DOS:11/19/2024 MED TO BEDPolyethylene Glycol 3350 (Miralax) 17 gram/dose wvldkrNoumggiemiud28OGQYxyrrz 770Sept2024 11:00pmSept2024 9:51am1 packed mixed with 8 ounces of fluid. DO NOT RECONCILE UNTIL DOS:11/19/2024 MED TO BEDOxycodone 5 mg jahhzeVjcwuvhghpuy9EHRUS1M as needed for Ozxb0255Wwnslwqrm 4th, 2025Sept2024 9:51amPrimary osteoarthritis of right hip Unilateral primary osteoarthritis, right hipDO NOT RECONCILE UNTIL DOS:11/19/2024 MED TO BEDPrednisone 10 mg awycgsBqumcxeyqcus22UWZAobmdx53846Dufpjkmou 3rd, 2025 11:00pmSept2024 11:51amDO NOT RECONCILE UNTIL DOS:11/19/2024 MED TO BEDOndansetron Hcl 4 mg guvkpgGkizatccjaxr8LZBIQ3T as needed for Heibfq24 November 06, 2024 11:00pmOct2024 10:02amDO NOT RECONCILE UNTIL DOS:11/19/2024 MED TO BEDAspirin 81 mg tablet,delayed release (DR/EC)Discontinued 81MGPOTwice dqode59131Grslkzbph 3rd, 2025 11:00pmSept2024 9:50amDO NOT RECONCILE UNTIL DOS:11/19/2024 MED TO BEDPantoprazole (Protonix) 20 mg tablet,delayed release (DR/EC)Fswzdeglrzsc67NSCNsjkaz48813Nrkmiyasj 3rd, 2025 11:00pmSeptember 2024 9:50amDO NOT RECONCILE UNTIL DOS:11/19/2024 MED TO BEDPrednisone 10 mg jsfqluDrsfebyrlyvj38ZLKBIzlve017Ulanzzyxw 3rd, 2025 11:00pm November 19, 2024 11:51am Medical Equipment Device Date Implanted Device Details Acetabular shell November 19, 2024 CHRISTINA: [id number] Issuing Agency: [facility] Device Id: [id number] Expiration Date: 2033-07-23 Lot Number: [id number] femoral head prosthesisSept2024UDI: [id number] Issuing Agency: [facility] Device Id: [id number] Expiration Date: 2032-03-23 Lot Number: [id number] hip femur prosthesis, modularSept2024UDI: [id number] Issuing Agency: [facility] Device Id: [id number] Expiration Date: 2028-06-13 Lot Number: [id number]-[id number] polyethylene acetabular linerSept2024UDI: ()[id number] Issuing Agency: [facility] Device Id: [id number] Expiration Date: 2028-07-24 Lot Number: [id number] Procedures Procedure Date Performed Status XR hip RT min 2V(w/wo pelvis)* January 03 7:21am completed Relevant Diagnostic Tests and/or Laboratory Data Laboratory Results Test Collection Date/Time Result Date/Time Result Interpretation Reference Range Result Comment Performing Site Corrected White Blood Count November 01, 2024 9:39am November 01, 2024 9:50am 6.1 10*3/uL 3[facility] [id number] [address] [facility] [address]Kkjpfcthccp WBC CountAugust 2024 9:39amAugust 2024 9:50am6.1 10*3/uL3.8-11.6F[facility] [id number] [address] [place] [address]Nrt Blood CountAugust 2024 9:39amAugu2024 9:50am 4.29 10*6/uL3.60-5.00[facility] [id number] [address] [place] [address] 71894QwmsecdwndFjsmtx 2024 9:39amAugust 2024 9:50am12.4 g/dL11.8-15.4F[facility] [id number] [address] [place] [address] 16[address]QsxyarjbjuSuhkoc 29th, 2025 9:39amAugu2024 9:50am36.8 %34.0-46.4F[facility] [id number] [address] [place] [address]Agst Corpuscular VolumeAugust 2024 9:39amAugust 2024 9:50am85.8 hT87-442HfsuooymjMercy Health [facility] [id number] [address] [place] [address] 98[address]Tobt Corpuscular HemoglobinAugust 2024 9:39amAugust 2024 9:50am29.0 pg24.7-34.3FGe[facility] [id number] [address] [facility] [address]Pjnr Corpuscular Hemoglobin ConcentAugust 2024 9:39am November 01, 2024 9:50am33.7 g/dL32.0-35.0[facility] [id number] [address] [facility] 156[address]Kxl Cell Distribution WidthAugust 2024 9:392024 9:50am16.7 %Above high qalhwt27.9-15.3F[facility] [id number] [address] [facility] [address]Sxhkjhkn CountAugust 2024 9:392024 9:50am 209 10*3/fW005-132AtbafkxmmMercy Health [facility] [id number] [address] [facility] [address]23[address]Zbsi Platelet VolumeAugust 2024 9:392024 9:50am7.3 fL6.3-10.7F[facility] [id number] [address] [facility] 137[address]Llwdfkjakao (%) (Auto)November 01, 2024 9:392024 9:50am54.3 %.[facility] [id number] [address] [facility] [address]Ikhueiyfloz (%) (Auto)November 01, 2024 9:392024 9:50am30.4 %.[facility] [id number] [address] [facility] [address]Zsbgenzcp (%) (Auto)November 01, 2024 9:392024 9:50am10.9 %.[facility] [id number] [address] [facility] 90015Lzkfqjkqbkq (%) (Auto)November 01, 2024 9:392024 9:50am3.9 %.[facility] [id number] [address] [facility] 017[address]Bzpzylybs (%) (Auto)November 01, 2024 9:392024 9:50am0.5 %.[facility] [id number] [address] [facility] [address]Wjpppmton RBC Relative Count (auto)November 01, 2024 9:39am November 01, 2024 9:50am0.1 /100{WBC}0-0.5FGe[facility] [id number] [address] [place], [place] [address]Neutrophils # (Auto)November 01, 2024 9:39amAugust 2024 9:50am3.3 10*3/uL1.8-7.7FGe[facility] [id number] [address] [place], [place] [address]Lymphocytes # (Auto)November 01, 2024 9:39amAugust 2024 9:50am1.9 10*3/uL1.00-4.8[facility] [id number] [address] [place], [place] [address]Monocytes # (Auto)November 01, 2024 9:39amAugust 2024 9:50am0.7 10*3/uL0.0-0.8[facility] [id number] [address] [place], [place] [address]Eosinophils # (Auto)November 01, 2024 9:39amAugu2024 9:50am0.2 10*3/uL0.0-0.45[facility] [id number] [address] [place], [place] [address]Basophils # (Auto)November 01, 2024 9:39amAugu2024 9:50am0.0 10*3/uL0.0-0.2FGe[facility] [id number] [address] [place], [place] [address]Urine ColorAugust 2024 9:582024 10:21am Light-yellowYellowMercy Health Defiance Hospital Ctr [id number] [address] [place], [place] [address]Urine AppearanceAugust 2024 9:58amAugust 2024 10:21amClearClearMercy Health Defiance Hospital Ctr [id number] [address] [place], [place] [address]Urine Specific GravityAugust 2024 9:58amAugust 2024 10:21am1.0181.001-1.030[facility] [id number] [address] [place], [place] [address]Urine pHAugust 2024 9:58amAugu2024 10:21am5.5 5.0-9.0[facility] [id number] [address] [facility] [address]Ubupm Leukocyte EsteraseAugust 2024 9:58amAugust 2024 10:21amNegativeNegativeMercy Health Defiance [facility] Ctr [id number] [address] [facility] [address]Vaeyk NitriteAugust 2024 9:58amAugust 2024 10:21am NegativeNegativeMercy Health Defiance Hospital [facility]tr [id number] [address] [facility] [address]Tagds ProteinAugust 2024 9:58amAugust 2024 10:21am Negative mg/dLNegativeMercy Health Defiance [facility]tr [id number] [address] [facility] [address]Lgbyy Glucose (UA)November 01, 2024 9:58amAugust 2024 10:21amNormal mg/dLNormalMercy Health Defiance Hospital Ctr [id number] [address] [facility] [address]Purpz KetonesAugust 2024 9:58amAugust 2024 10:21am NegativeNegativeMercy Health Def[facility] [id number] [address] [facility] [address]Vqbbl UrobilinogenAugust 2024 9:58amAugust 2024 10:21amNormal mg/dLNormalMercy Health Defiance Hospital Ctr [id number] [address] [facility] [address]Syweu BilirubinAugust 2024 9:58amAugust 2024 10:21amNegativeNegativeMercy Health Def[facility]tr [id number] [address] [facility] [address]Nmche Occult BloodAugust 2024 9:58amAugust 2024 10:21amNegativeNegativeMercy Health Defiance [facility] [id number] [address] [facility] [address]Zunhttb LevelAugust 2024 9:39amAugu2024 12:33pm 97 mg/bQ56-558SIG recommended reference rangeRandom Glucose Reference Range is dependent on time and content of last meal. Glucose of more than 200 mg/dL in a nonstressed, ambulatory subject supports the diagnosisof Diabetes Mellitus. [facility] [id number] [address] [facility] [address]Sylgu Urea NitrogenAugust 2024 9:392024 12:33pm17 mg/dL7-25[facility] [id number] [address] [place] [id number] 9:392024 12:33pm0.63 mg/dL0.60-1.20[facility] [id number] [address] [place] [id number] GFR (CKD-EPI)November 01, 2024 9:392024 12:33pm> 60.0 mL/MinMercy Health Defiance Hospital Ctr [id number] [address] [place] [id number] LevelAugust 2024 9:39amA2024 12:33pm 137 mmol/N200-509FrvufpymqMercy Health Defiance Hospital Ctr [id number] [address] [place] [id number] LevelAugust 2024 9:392024 12:33pm4.3 mmol/L3.5-5.1FGe[facility] [id number] [address] [place] [id number] LevelAugust 2024 9:392024 12:33pm 101 mmol/J59-462AqdoqbwjhMercy Health Defiance Hospital Ctr [id number] [address] [place] [id number] Dioxide LevelAugust 2024 9:392024 12:33pm30.2 mmol/L21.0-31.0[facility] [id number] [address] [place] [id number] GapAugust 2024 9:39amAugu2024 12:33pm10.1 mEq/L6.0-15.0[facility] [id number] [address] [place] [id number] LevelAugust 2024 9:39amA2024 12:33pm 9.7 mg/dL8.6-10.3FGeorgetown [facility]al [facility] [id number] [address] [facility] [address]Zgbtrste Creatinine Clearance (ChemAugust 2024 9:39am November 01, 2024 12:33pmN/AFGeorgetown [facility]al Hospital [facility]tr [id number] [address] [facility] [address]EubavysoqmbrPvpgwu 2024 9:39amA2024 7:88mj874 umol/L0-285Published reference interval for apparently healthysubjects between age 20 and 60 is 205 - 285 umol/L and in apoorly controlled diabetic population is 228 - 563 umol/Lwith a mean of 396 umol/L.Performed at: [address] [id number] Director: Fady Shoemaker PhD, Phone: [phone] Diagnostic Imaging Reports Author Jamarcus Meneses Protestant HospitalAuthoredOctober 2024 5:57pmReportDictated Date/TimeDictated ByStatusRadiology ReportOctober 2024 5:57pmJamarcus Meneses [facility]omp[facility] [address] [place] [address] XRay Report Signed Patient: Una Gomez MR#: [id number] : 1940 Acct:[id number] Age/Sex: 84 / F ADM Date: 5 [place] [facility] [place]: Type: [facility] Attending Dr: Fred Hernandez II, MD [...] fracture identified. Severe degenerative changes left hip. Myng-zx-hkjcikmn dege nerative changes sacroiliac joints. Degenerative changes lumbosacral junction. XR/XR hip RT min 2V(w/wo pelvis)* IMPRESSION: Satisfactory right total hip arthroplasty. Severe degenerative changes left hip . Impression dictated by: Jamarcus Meneses M.D. 01/03/2025 6:01 PM Dictation Location: [place] [address] Transcribed By: [facility] 01/03/251800 Dictated By: Jamarcus Meneses MD 01/03/251756 Signed By: <Electronically signed by Jamarcus Meneses MD in OV> 01/03/251800 Vital Signs Vital Reading Result Reference Range Collection Date/Time Height 58 [in_i] November 19, 2024 7:18oxMknxsq11.50 kgSeptember 2024 5:00amBody Auogrnsfjau59.7 [degF]97.6-99.0Sept2024 10:45amHeart Rate76 /min 60-100Sept2024 10:45amRespiratory rate16 /omc24-62Fqxbheqim 22nd, 2025 10:45amOxygen saturation by Pulse lekucwoi00 %95-100Sept2024 10:45amBP Efxyqypo089 mm[Hg]100-140September 2024 10:45amBP Jeiaxhzkp86 mm[Hg]60-100September 2024 10:45amInhaled oxygen flow rate0 L/minSeptember 2024 3:65mpTkbdtw68 [in_i]November 25, 2024 12:29twYjyvra53.30 kg December 01, 2024 5:22amBody Nqsprdkcigw98.4 [degF]97.6-99.0September 2024 6:30amHeart Rate67 /apk67-388Vzkwahfty 2024 7:33amRespiratory rate17 /vjb34-24Ihggtwvta 29th, 2025 6:30amOxygen saturation by Pulse % 95-100September 2024 6:30amBP Pzprzsuy939 mm[Hg]100-140Sept2024 6:30amBP Yujwnhvhv22 mm[Hg]60-100September 2024 6:33utJensmd16 [in_i] December 04, 2024 10:68gvLzqwau40.24 kgOctober 2024 10:06amHeart Rate78 /fpt11-250Gdarbms 2024 10:06amRespiratory rate18 /wem17-18Hgpizkx 2024 10:06amOxygen saturation by Pulse %95-100October 2024 10:06amBP Zteuntzp170 mm[Hg]100-140October 2024 10:06amBP Zcbgvfxvp02 mm[Hg]60-100 December 04, 2024 10:06amBMI (Body Mass Index)22.6 kg/e3Lnmzgtp 2024 10:06am Advance Directives Advance Directive Response Recorded Date/ Time Advance Directives No July 13 8:38am Insurance Providers Guarantor Una Gomez Address [address] [place] [id number] Info.Home Phone: Payer Group Member ID Coverage Type Subscriber Relationship to Subscriber Effective Date Expiration Date Medicare Id: [id number] Encounters Encounter Location(s) Arrival/Admit Date Discharge/Departure Date Discharge/Departure Disposition Provider(s) Departed Clinical -Pre-Surgica l Testing November 01, 2024 10:03am November 01, 2024 10:04am Discharged to home care or self care (routine discharge) Tarun Pollack MD Registered Recurring -Physical Therapy [facility] 2024 12:37pm Tarun Pollack MDDeparted Physician/Provider Office Visit-[facility] 2024 1:56pmSept2024 3:10pmDischarged to home care or self care (routine discharge)Tarun Pollack MDDeparted Physician/Provider Office Visit-[facility] 2024 6:25amSept2024 6:30amDischarged to home care or self care (routine discharge)Tarun Pollack MDDeparted Clinical-ElectrodiagnosticsSeptember 2024 8:34amSeptember 2024 8:35amDischarged to home care or self care (routine discharge)Curtis Morales MDNon-patient / Non-visit- [facility] OrthopedicsSeptember 2024 8:00amTarun Pollack MD Non-patient / Pbb-hvcnz-Pqxqcmyea [facility] 2024 1:32pMely Miller MDNon-patient / Fqq-siugf-Ojivthkql [facility] OrthopedicsSeptember 2024 12:00Tarun Quintanilla-patient / Csu-jrsun-Xnybfkmxp [facility]September 2024 12:00amMely Small MDDeparted Physician/[facility] 10:55amOctober 2024 11:21amDischarged to home care or self care (routine discharge)Lucie Yanes , WILVERNDeparted Physician/Provider [facility]opedicsOctober 2024 9:32amOctober 2024 10:32amDischarged to home care or self care (routine discharge)Tarun Pollack MDDeparted Clinical-XRay [facility]October 2024 8:21amOctober 2024 8:22amDischarged to home care or self care (routine discharge)Tarun Pollack MDDeparted Physician/Provider [facility]October 2024 9:59amOctober 2024 10:38amDischarged to home care or self care (routine discharge)Tarun Pollack MDDeparted Physician/Provider [facility] January 22, 2025 9:49amNovember 2024 10:53amDischarged to home care or self care (routine discharge)Tarun Pollack MD Recent Diagnosis Onset Date Admit Date Primary osteoarthritis of right hip Unknown November 07, 2024 1:56pm Hypertension Unknown November 19, 2024 8:00am Personal history of poliomyelitis Unknown November 19, 2024 8:00am Status post total replacement of right hip Unkno wn November 19, 2024 8:00am Impaired mobility and activi ties of daily living Unknown November 19, 2024 8:00am Postpolio syndrome Unknown November 8:00am Primary osteoarthritis of right hip Unknown November 19, 2024 8:00am Hypertension Unknown November 25, 2024 1:32pm Status post total replacement of right hip Unkno wn November 25, 2024 1:32pm Impaired mobility and activi ties of daily living Unknown November 25, 2024 1:32pm Postpolio syndrome Unknown November 1:32pm Primary osteoarthritis of right hip Unknown November 25, 2024 1:32pm Right hip pain Unknown November 25, 2024 1:32pm Hypertension Unknown December 04 10:55am Irregular heart beat Unknown December 10:55am Left bundle branch block (LBBB) Unknown December 04, 2024 10:55am Aftercare following right hi p joint replacement surgery Unknown December 06, 2024 9:32am Status post total replacement of right hip Unkno wn December 06, 2024 9:32am Aftercare following right hi p joint replacement surgery Unknown January 03, 2025 9:59am Status post total replacement of right hip Unkno wn January 03, 2025 9:59am Aftercare following right hi p joint replacement surgery Unknown January 22, 2025 9:49am Status post total replacement of right hip Unkno wn January 22, 2025 9:49am Assessments Diagnosis Onset Date Resolution Status Admit Date Primary osteoarthritis of right hip inactiveSept2024 1:56pmHypertensionacuteSeptember 2024 8:00am Personal history of poliomyelitisacuteSeptember [...] post total replacement of right hipacuteOctober 2024 9:59amAftercare following right hip joint replacement surgeryacuteNovember 2024 9:49amStatus post total replacement of right hipacuteNovember 2024 9:49am Plan of Treatment Author Lucie Yanes Protestant HospitalAutohiohealth [facility] hospitalOctober 2024 11:17amAssessment: #OA of right hip with need for right total hip replacement: completed without any complications. #Left bundle branch block, irregular heart beat: no record of AF or PVC/SVT. EKG today normal sinus with LBBB. #Hypertension: now with hypotension and lightheadedness #Other: obesity, vitamin D deficiency , hypothyroidism, RLS, history of Polio. EKG 09/05/2024: normal sinus rhythm left axis deviation, LBBB, rate 76 bpm. Echo 11/12/2024: EF 50-55%, septal motion consistent with conduction abnormality, mild AR, trace TR. Plan: -Patient euvolemic, blood pressure controlled. EKG unremarkable with LBBB. -Reviewed above recent echocardiogram with patient. -Hypertension: continue candesartan 4 mg daily, decrease spironolactone to 12.5 mg daily due to low blood pressures at home and in office with lightheadedness. -Irregular heart rate: continue digoxin 125 mcg daily, metoprolol succinate 25 mg daily. -Follow up with FRANSISCO Faulkner in 3 months, sooner if needed. Will need BMP and BNP lab work prior to that visit. Future Tests Future scheduled test information is unavailable Pending Tests Pending diagnostic test information is unavailable Future Visits Future appointment information is unavailable Future Procedures Procedure Name Ordered Date Scheduled Date Admit Status Order November 25, 2024 12:56pm November 25, 2024 12:56pm Consult to Adult Hospitalist November 25 12:56pm November 25, 2024 12:56pm Discharge Order December 02, 2024 10:02am Sep tember 2024 10:02am Admit Status Order November 19, 2024 11:47am November 19, 2024 11:47am Consult to Adult Hospitalist November 19 11:47am November 19, 2024 11:47am Discharge Order November 25, 2024 8:55am Sept ember 2024 8:55am Consult to Physiatry November 19, 2024 11:47a m November 19, 2024 11:49am Basic Metabolic Panel December 04, 2024 10:22am B-Type Natriuretic PeptideOct2024 10:22am Future Medications Future medication information is unavailable Patient Instructions Instruction Admit Date 3M Prevana Plus 125 Therapy November 192024 8:00am Know your Meds November 25, 2024 1:32pm
--- OUTSIDE RECORDS SUMMARY | 2025-01-23 13:45 | XMS_ITS | Clinical Summary ---
Author Organization [facility] Address [address] [place], [place] [id number] Care Team Providers Care Supervisor Color Paste Mixing Name Role Phone Shruthi Monterroso MD Primary Care Provider [phone] Social History Tobacco UseTypesPacks/DayYears UsedDateSmoking Tobacco: Never Assessed CommentsUnknownSex and Gender InformationValueDate RecordedSex Assigned at Not on fileLegal HogOcxhfe53/02/2012 8:46 AM ESTGender IdentityNot on fileSexual OrientationNot on file Plan of Treatment Not on file Insurance Care Teams Team MemberRelationshipSpecialtyStart DateEnd Shruthi Monterroso MD [address] [facility] [place] [address] PCP - GeneralFamily Fofivkdz54/27/15
--- OUTSIDE RECORDS SUMMARY | 2025-01-23 13:45 | XMS_ITS | Clinical Summary ---
Author Organization [facility] Address [address] [place] [address] Care Team Providers Care Account Resolution Specialist Name Role Phone Yaniv Singh MD Primary Care Provider [phone] Allergies Active AllergyReactionsCriticalityNoted DateCommentsAmoxicillin-Pot Clavulanate Wooljzj0108/02/20226593Bcxqogcmeul37/30/2023 Other Reaction(s): Unknown Sulfa FqcwhcdglytDnbxqed17/30/0043Ezerqfjd70/30/2023 Other Reaction(s): Unknown Medications MedicationSigDispense QuantityRefillsLast FilledStart DateEnd DateStatus acetaminophen (Tylenol Extra Strength) 500 MG tablet every 6 (six) hours.Active albuterol HFA (Proventil HFA) 90 mcg/act inhaler 2 puff(s), Inhalation, q4hr, Refill(s) 0, as sdrpal2607/05/2022ctive aspirin 81 MG chewable tablet Daily.Active aspirin 81 MG chewable tablet Chew 81 mg 1 (one) time each day at the same time.Active aspirin 81 MG EC tablet 1 (one) time each day at the same time.Active Symbicort 80-4.5 MCG/ACT inhaler 06/13/2022ctive bupivacaine (Marcaine) 0.5 % injection bupivacaine HCl 0.5 % (5 mg/mL) injection solution via injectActive calcium carbonate (Os-Yung) 1250 (500 Ca) MG chewable tablet Chew 200 mg in the morning.Active celecoxib (CeleBREX) 200 MG capsule 1 (one) time each day at the same time.07/05/2022ctive celecoxib (CeleBREX) 200 MG capsule celecoxib 200 mg capsuleActive cephalexin (Keflex) 500 MG capsule Take 500 mg by mouth in the morning and 500 mg before bedtime.04/07/2022ctive desonide (DesOwen) 0.05 % cream APPLY SMALL AMOUNT 3 TIMES A DAY RLXMNK2007/11/2022ctive digoxin (Lanoxin) 125 MCG tablet digoxin 125 mcg (0.125 mg) xkvnrw5807/05/2022ctive famotidine (Pepcid) 40 MG tablet Take 40 mg by mouth.07/05/2022ctive Synthroid 50 MCG tablet Synthroid 50 mcg syblcf8607/05/2022ctive metoprolol succinate XL (Toprol-XL) 25 MG 24 hr tablet metoprolol succinate ER 25 mg tablet,extended release 24 hr07/05/2022ctive metoprolol tartrate (Lopressor) 25 MG tablet 1 (one) time each day at the same time.Active montelukast (Singulair) 10 MG tablet montelukast 10 mg uzlihn8107/05/2022ctive Multiple Vitamins-Minerals (PreserVision AREDS) tablet OrallyActive prednisoLONE acetate (Pred-Forte) 1 % ophthalmic suspension prednisolone acetate 1 % eye drops,suspensionActive spironolactone (Aldactone) 25 MG tablet every 12 (twelve) hours.07/05/2022ctive spironolactone (Aldactone) 25 MG tablet spironolactone 25 mg tabletActive methylPREDNISolone (Medrol Dospak) 4 MG tablets TAKE 6 TABLETS ON DAY 1 DIRECTED ON PACKAGE AND DECREASE BY 1 TAB EACH DAY FOR A TOTAL OF 6 DAYS09/16/2022ctive candesartan (Atacand) 4 MG tablet Take 4 mg by mouth DailyActive Active Problems ProblemNoted DateDiagnosed Date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 yeuzgojhnon44/17/2023ry eyes 09/19/2022lepharitis of upper and lower eyelids of both eyes09/19/2022 Encounters DateTypeDepartmentCare CsfsUjhzewavjzx73/27/2025 1:15 PM EDTOffice Visit [facility] [address] [place] [address] Shabbir Wills DO 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 (Primary Dx); Dry eyes; Blepharitis of upper and lower eyelids of both eyes, unspecified type10/30/2024 Bamboo flowsheet [facility] [address] [place] [address] Shabbir Wills, 10/30/2024Travelfrom Last 3 Months Family History Medical HistoryRelationNameCommentsNo Known ProblemsBrotherNo Known Problems FatherCancerMotherHypertensionMotherNo Known ProblemsSisterRelationNameStatus CommentsBrotherFatherDeceasedMotherDeceasedSister Social History Tobacco UseTypesPacks/DayYears UsedDateSmoking Tobacco: NeverPassive Smoke Exposure: NeverSmokeless Tobacco: Never Tobacco Cessation:Counseling Given: Yes Alcohol UseStandard Drinks/WeekCommentsNever0 (1 standard drink = 0.6 oz pure alcohol)caffeine: 1-2 cups per dayCommentsUnknownSex and Gender InformationValueDate RecordedSex Assigned at UbsczChegho85/13/2023 8:12 PM EDT Legal FthSidwrf28/01/2023 8:34 PM EDTGender HklssxqiWsxdeo62/13/2023 8:12 PM EDT Sexual OrientationNot on file Last Filed Vital Signs Vital SignReadingTime TakenCommentsBlood Xvuoxlsg957/7204 2:19 PM EDT Vazvy322606/11/2024 2:19 PM EDTTemperature--Respiratory Rate--Oxygen Saturation-- Inhaled Oxygen Concentration--Zvrffg94.2 kg (126 lb)06/11/2024 2:19 PM EDTHeight 147.3 cm (4' 10 )06/11/2024 2:19 PM EDTBody Mass Index26.3304 2:19 PM EDT Plan of Treatment DateTypeDepartmentCare Team (Latest Contact Info)Zqonxzpyaki56/23/2025 2:45 PM ESTOffice Visit [facility] [address] [place] [address] Shabbir Wills, DO [address] [place] [address] Procedures Procedure NamePriorityDate/TimeAssociated DiagnosisCommentsOCT, RETINA - OU - BOTH HEMBQlzxuub36/27/2025 1:47 PM EDT 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 Scan locations included subfoveal. Progression has been stable. Findings include pigment epithelial detachment. Left Eye Quality was good. Scan locations included subfoveal. Progression has been stable. Findings include pigment epithelial detachment. Authorizing ProviderResult TypeResult StatusJonatdalton Wills DOOPH TOMOGRAPHY Edited Result - Final from Last 3 Months Insurance Care Teams Team MemberRelationshipSpecialtyStart DateEnd Yaniv Singh MD [address] [place] [id number] PCP - GeneralFamily Medicine11/20/23
--- OUTSIDE RECORDS SUMMARY | 2025-01-23 13:45 | XMS_ITS | Clinical Summary ---
Author Organization [facility] Address [address] [place] [address] Care Team Providers Care Photo Finish Photographer Name Role Phone Maricruz Alvarado PROMOTIONS DIRECTOR Primary Care Provider [phone] Allergies Active AllergyReactionsCriticalityNoted DateCommentsAmoxicillin-Pot Clavulanate Dtlpxkp7508/02/20224644SqrfjbxdndeKxkxazt37/30/2023 Other Reaction(s): Unknown Sulfa (Sulfonamide Antibiotics)Bbbzmgy9601/06/20211546WwvvkktcSkbbzvd70/30/2023 Other Reaction(s): Unknown Medications MedicationSigDispense QuantityRefillsLast FilledStart DateEnd DateStatus aspirin 81 mg EC tablet 1 (one) time each day at the same time.Active budesonide-formoteroL (Symbicort) 80-4.5 mcg/actuation inhaler Inhale 1 puff twice a day by inhalation route for 90 days.12/20/2020ctive digoxin (Lanoxin) 125 MCG tablet Take 1 tablet every day by oral route for 90 days.07/05/2022ctive montelukast (Singulair) 10 mg tablet Take 10 mg by mouth at bedtime.08/22/2022ctive spironolactone (Aldactone) 25 mg tablet Take 25 mg by mouth in the morning.08/01/2022ctive candesartan (Atacand) 4 mg tablet Take 1 tablet every day by oral route for 90 days.12/07/2020ctive Synthroid 50 mcg tablet Take 50 mcg by mouth before breakfast.08/01/2022ctive celecoxib (CeleBREX) 200 mg capsule 200 mg two times daily.08/15/2023Active metoprolol succinate XL (Toprol-XL) 25 mg 24 hr tablet Take 25 mg by mouth once daily as directed.07/10/2018Active Active Problems ProblemNoted DateDiagnosed DateAcute URI11/30/20231555Bdsnpretrme57/26/2024erumen bihcrbfyb78/26/3164Ntwtz53/26/3354Ftmgzwjfm96/26/2024Knee pain, left11/30/2023 Left sciatic nerve pain11/30/2023Nasal ihqzcdanzc35/26/2024ge-related osteoporosis without current pathological aoilqsbq27llergic tbamjmpr40iverticular ywqvrak82yspnea Heart gsypmz98 Overview (10/20/2022): bicuspid aortic valve Lceovbxnxtpnmzqnyoxq73/17/202308/17/8341Rrkeuvyorwdn47 Qqbwzfbjxxxcra33LabyrinthitisLeft bundle branch blockNon-seasonal allergic rhinitis due to pollen Osteoarthritis of hipOsteoporosis Over zvbhdw17Restless legs syndrome Right upper quadrant painSteatosis of liverLumbar gypsnifwmpd94dvanced atrophic nonexudative age-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 hnzqxkjyene48lepharitis of upper and lower eyelids of both eyesry eyesSquamous cell carcinoma in situFoot dropost poliomyelitis syndrome Shoulder painsthma11/ Osteoarthritis of glenohumeral joint Social History Tobacco UseTypesPacks/DayYears UsedDateSmoking Tobacco: NeverPassive Smoke Exposure: NeverSmokeless Tobacco: NeverAlcohol UseStandard Drinks/WeekComments Not Currently0 (1 standard drink = 0.6 oz pure alcohol)Humiliation, Afraid, Rape, and Kick questionnaireAnswerDate RecordedWithin the last year, have you been afraid of your partner or ex-partner?No07/24/2024Emotionally AbusedNot on file07/24/2024Physically AbusedNot on file07/24/2024Sexually AbusedNot on file 07/24/2024Overall Financial Resource Strain (CARDIA)AnswerDate RecordedHow hard is it for you to pay for the very basics like food, housing, medical care, and heating?Not hard at all04/10/2023HQ-2AnswerDate RecordedPatient Health Questionnaire-2 Vqols315UT Safety & EnvironmentAnswerDate RecordedWithin the last year, have you been afraid of your partner or ex-partner?No04/13/2023 Within the last year, have you been humiliated or emotionally abused in other ways by your partner or ex-partner?04/13/2023Within the last year, have you been kicked, hit, slapped, or otherwise physically hurt by your partner or ex-partner?04/13/2023Within the last year, have you been raped or forced to have any kind of sexual activity by your partner or ex-partner?No04/13/2023 Physically or Sexually AbusedNot on file04/13/2023TransportationAnswerDate RecordedIn the past 12 months, has lack of transportation kept you from medical appointments or from getting medications?No04/10/2023Lack of Transportation (Non-Medical)Not on file02/05/2024Housing Stability Vital SignAnswerDate RecordedUnable to Pay for Housing in the Last YearNot on file04/10/2023Number of Places Lived in the Last YearNot on file04/10/2023In the last 12 months, was there a time when you did not have a steady place to sleep or slept in ashelter (including now)?No04/10/2023Hunger Vital SignAnswerDate RecordedWithin the past 12 months, you worried that your food would run out before you got the money to buymore.Never true4Ran Out of Food in the Last YearNot on file 04/10/2023CommentsUnknownSex and Gender InformationValueDate RecordedSex Assigned at YvxihHhisup44/12/2025 2:54 PM EDTLegal GvtOniqvu77/29/2022 11:37 PM EDTGender FjoccoqxYwffzw25/12/2025 2:54 PM EDTSexual OrientationHeterosexual or Ldagduis02/12/2025 2:54 PM EDT Last Filed Vital Signs Vital SignReadingTime TakenCommentsBlood Ljvryenc331/7805 9:45 AM EDT Amntl053007/24/2024 9:45 AM EDTTemperature--Respiratory Oqam9401 1:05 PM EDTOxygen Reolujweia77%11/30/2023 2:56 PM EDTInhaled Oxygen Concentration-- Owqzec22.7 kg (125 lb)07/24/2024 9:45 AM TERPvszwa239.9 cm (4' 11 )07/24/2024 9:45 AM EDTBody Mass Index25.25007/24/2024 9:45 AM EDT Plan of Treatment Health MaintenanceDue DateLast DoneCommentsMedicare Annual Wellness (AWV) 9Adult Qgdmjpy2203/24/1960Zoster Vaccines (1 of 2)1988COVID-19 Vaccine ( season), 03/17/2021, 05/05/2020, Additional history existsInfluenza Vaccine (#1)5103/24/2023, 12/14/2022, 12/27/2021, Additional history existsDepression Nhicnkuaq36/ Fall Risk Affwcphgk26Pneumococcal Vaccine: 50+ YearsCompleted 09/11/2020, 09/12/2019HIB VaccinesAged OutNo longer eligible based on patient's age to complete this topicHPV VaccinesAged OutNo longer eligible based on patient's age to complete this topicIPV VaccinesAged OutNo longer eligible based on patient's age to complete this topicMeningococcal B VaccineAged OutNo longer eligible based on patient's age to complete this topicMeningococcal VaccineAged OutNo longer eligible based on patient's age to complete this topicRotavirus VaccinesAged OutNo longer eligible based on patient's age to complete this topic Insurance Care Teams Team MemberRelationshipSpecialtyStart DateEnd Date Maricruz Alvarado FNP [address] [place] [id number] PCP - GeneralNurse Practitioner11/01/24
--- OUTSIDE RECORDS SUMMARY | 2025-01-23 13:45 | XMS_ITS | Clinical Summary ---
Author Organization [facility] Address [id number] [address] [place] [address] Care Team Providers Care Program Evaluation Consultant Name Role Phone Shruthi Monterroso MD Primary Care Provider [phone] Allergies Active AllergyReactionsCriticalityNoted DateCommentsSulfa (Sulfonamide Antibiotics)01/06/2021 Medications MedicationSigDispense QuantityRefillsLast FilledStart DateEnd DateStatus albuterol (PROVENTIL HFA;VENTOLIN HFA) 90 mcg/actuation inhaler 12/11/2020ctive aspirin 81 mg chewable tablet Chew 81 mg and swallow daily.Active SYMBICORT 80-4.5 mcg/actuation inhaler 12/20/2020ctive bupivacaine HCl (MARCAINE) 0.5 % (5 mg/mL) injection bupivacaine HCl 0.5 % (5 mg/mL) injection solution via injectActive calcium carbonate (TUMS) 200 mg (500 mg) chewable tablet Chew 200 mg and swallow daily.Active candesartan (ATACAND) 4 mg tablet Take 4 mg by mouth daily.12/07/2020ctive celecoxib (CeleBREX) 200 mg capsule Take 200 mg by mouth 2 (two) times a day.10/19/2020ctive digoxin (LANOXIN) 125 mcg tablet Take 125 mcg by mouth daily.Active SYNTHROID 50 mcg tablet Take 50 mcg by mouth daily.11/03/2020ctive metoprolol succinate XL (TOPROL-XL) 25 mg 24 hr tablet Take 25 mg by mouth daily.Active montelukast (SINGULAIR) 10 mg tablet Take 10 mg by mouth daily.11/05/2020ctive spironolactone (ALDACTONE) 25 mg tablet Take 25 mg by mouth daily.11/05/2020ctive vit A/C/E ac/ZnOx/cupric oxide (EYE VITAMIN AND MINERALS ORAL) Take by mouth 2 (two) times a day.Active Active Problems No known active problems Family History Medical HistoryRelationNameCommentsThroat cancerMaternal AuntRelationNameStatus CommentsBrotherAliveFatherDeceasedMaternal AuntDeceasedMotherDeceased Social History Tobacco UseTypesPacks/DayYears UsedDateSmoking Tobacco: NeverSmokeless Tobacco: NeverAlcohol UseStandard Drinks/WeekCommentsNever0 (1 standard drink = 0.6 oz pure alcohol)CommentsUnknownSex and Gender InformationValueDate Recorded Sex Assigned at BirthNot on fileLegal OmsRkcdkq94/27/2021 1:09 PM EDTGender IdentityNot on fileSexual OrientationNot on file Last Filed Vital Signs Vital SignReadingTime TakenCommentsBlood Jasbohgf721/8012 10:05 AM EST Pulse--Injdcelflse05.6 ??C (96 ??F)02/12/2021 10:05 AM ESTRespiratory Rate-- Oxygen Saturation--Inhaled Oxygen Concentration--Dqpcui27.3 kg (144 lb) 02/12/2021 10:05 AM TMBXgyqaz066.9 cm (4' 11 )02/12/2021 10:05 AM ESTBody Mass Index29.0802/12/2021 10:05 AM EST Plan of Treatment Health MaintenanceDue DateLast DoneCommentsDepression Gbbkpacyy83/19/1951Tobacco Csfhtzmht69/19/1951DTaP,Tdap and Td Vaccines (1 - Tdap)1957Zoster (Shingles) Vaccine (1 of 2)1988Fall Risk Uylpsaasw69/19/2004RSV ( or age 60+ yrs) (1 - 1-dose 75+ series)2013COVID-19 Vaccine ( - season)503/04/2020, 04/07/2020Influenza [place]52/01/389434/10/2020, 02/01/2019, 01/30/2018, Additional history exists Medical Devices Not on file Insurance Care Teams Team MemberRelationshipSpecialtyStart DateEnd Date Shruthi Monterroso MD PCP - GeneralFamily Gacvpsca13/27/21
--- OUTSIDE RECORDS SUMMARY | 2025-01-23 13:48 | XMS_ITS | CCD ---
Author Organization [facility] Care Team Providers Care Lead Cargoman Name Role Phone AMAURY MONTERROSO Primary Care [...] Admitting Unavailable Yaniv Singh. Primary Care Physician [phone] Asaad, Imad Unavailable Yaniv Singh MD Primary Care Provider [phone] MD Yaniv Singh. Attending Unavailable MD Yaniv [...] Unavailable Yaniv Singh ELynn Attending Unavailable Yun, PACKER Marlee L Attending Unavailable Yaniv Singh ELynn Attending Unavailable Frnacisco Yaniv ELynn Attending Unavailable Francisco Yaniv ELynn Attending Unavailable Abdelrahman Singhuel ELynn Attending Unavailable Ross Yaniv ELynn Attending Unavailable Yun, PACKER Marlee L Attending Unavailable Francisco Yaniv ELynn Admitting Unavailable Yaniv Singh Attending Unavailable Yaniv Singh MD Primary Care Provider Fred Hernandez MD Attending Provider Curtis Morales MD Attending Provider Rosa M Romano APRN Emergency Provider Yun FLIGHT PURSER-CMarlee Primary Care Provider [phone] Yaniv Singh Attending Unavailable Yun, PACKER Marlee L Attending Unavailable Yaniv Singh ELynn Attending Unavailable Yun, PACKER Marlee L Attending Unavailable Francisco Yaniv ELynn Admitting Unavailable Yaniv Singh Attending Unavailable DOLCE, ULI R Attending Unavailable DOLCE, ULI R Attending Unavailable DANI OTTONIEL Mely Attending Unavailable OTTONIEL LOUISE Attending Unavailable OTTONIEL LOUISE Attending Unavailable OTTONIEL LOUISE Attending Unavailable Yaniv Singh MD Primary Care Provider BERTHA MULTANI Attending Unavailable MELISSA RODRIGEZ Attending [...] Other Provider Akhil NESS, Debby Other Provider Jacinto Billy MD Other Provider [phone] Joey Avelar DO Other Provider Marvel BELTRAN, Richard Other Provider [phone] Herminia Ashton MD Other Provider Jovon Mendez DO Other Provider Sanchez BELTRAN, Carlo Other Provider Unavailable Debbie Mendoza APRN Other Provider [phone] Garcia BELTRAN, Maximo Other Provider Doris Hallman MD Other Provider Unavailable Ksenia Rosario MD Other Provider Jovon Cramer DO Other Provider [phone] Abhishek Ngo MD Other Provider Alexis Dickson MD Other Provider Kristen FLIGHT PURSER-C, Kailee Chavarria Other Provider Merlin Swift APRN Other Provider Unavailable Jayson Deal MD Other Provider Aj BELTRAN, Tej Other Provider Brian BELTRAN, Coleen Other Provider Unavailable Kemar Brown DO Other Provider Stephanie PERSAUD, Cindy Other Provider Acosta Potts DO Other Provider Rubén BELTRAN, John Mcneil Other Provider Areli Bear APRN Other Provider Stefania PERSAUD, Argelia Acuna Other Provider Elena BELTRAN, Beryl Other Provider Unavailable Sukhjinder BELTRAN, Orestes Chavarria Other Provider Anil Baires DO Other Provider Jero BELTRAN, Mayur Carr Other Provider Mark BELTRAN, Mikhail Sow Other Provider [phone] Froilan PERSAUD, Elissa Other Provider Unavailable Geovanny BELTRAN, Dejuan Other Provider Robert BELTRAN, Harlan Giraldo Other Provider [phone] Lena BELTRAN, Carlo Garcia Other Provider Bobo BELTRAN, Dat Other Provider Derick PERSAUD, Elnia Izquierdo Other Provider [phone] Belinda PERSAUD, Kb Other Provider [phone] Becky WOODY, Cinthia Other Provider Unavailable Harlan Herron MD Other Provider Antonio Roche MD Admit Provider Antonio Roche MD Attending Provider [phone] Sara Liriano MD Other Provider Jovon Mendez DO Other Provider Unavailab Antonio Vann MD Other Provider Lucie Yanes APRN Attending Provider Yun FLIGHT PURSER-C, Marlee Lewis Primary Care Provider [phone] Curtis Morales MD Attending Provider Yun, PACKER Marlee L Attending Unavailable Yun, PACKER Marlee L Attending Unavailable Yun, PACKER Marlee L Attending Unavailable Yun, PACKER Marlee L Admitting Unavailable Yun, PACKER Marlee L Attending Unavailable Yaniv Singh Admitting Unavailable Yaniv Singh Attending Unavailable Yun, PACKER Marlee L Attending Unavailable Bobbs, Shauni L. [...] [employer] Unavailable Kb [employer] Unavaila Sara [...] David JESUS, Fred Mcneil Attending Unavailabl e [place] II, Fred Mcneil Admitting Unavailabl e Yun, [...] powder; Translations: [hicks powder]Propensity to adverse reactions (disorder)71-48-7995Sgp [facility] Repository (1 source)eggplant extractDrug Lcotgav24-40-8853PriKind[facility] (16 sources)Sulfonamides (Antibiotic); Translations: [SULFA (SULFONAMIDE ANTIBIOTICS)]Propensity to adverse reactions (disorder)55-04-6441JszubwQox [facility] Repository (1 source)HYDROcodoneDrug Ighhqlg39-85-4288[facility] Rep[facility] (1 source)Sulfonamides (Antibiotic)Drug allergy (disorder)68-46-4815Nvx [facility] Repository (9 sources)Amoxicillin / Clavulanate; Translations: [amoxicillin-clavulanate] Drug AllergyUnknown (qualifier value)[facility] (20 sources)Fluconazole; Translations: [fluconazole]Drug Ntkxpez04-47-0230 Unknown (qualifier value)[facility] (9 sources)Sulfonamides (Antibiotic); Translations: [sulfa drugs]Drug allergy Unknown (qualifier value)[facility] (20 sources)traMADol; Translations: [tramadol]Drug Ghjilic85-33-9688Uiygnrx (qualifier value)[facility] (14 sources)FluconazoleAllergy to ghieudedf44-00-7291[facility] (14 sources)Sulfonamides (Antibiotic)Drug Ifcriwg68-88-2265NpjcryiGSNM Healthcare (15 sources)Amoxicillin-Pot Clavulanate; Translations: [AMOXICILLIN-POT CLAVULANATE]Drug Qdrumcp08-78-0335MafstfpDVYE Healthcare Work Phone: (14 sources)Amoxicillin; Translations: [amoxicillin]Drug Iizblgx48-99-[address] [facility] (14 sources)Clavulanate; Translations: [clavulanic acid]Drug Wfoutuk76-49-[address] [facility] (11 sources)predniSONE; Translations: [prednisone]Drug Hnwergl92-79-[address] [facility] (1 source)FluconazoleDrug Gcywcml62-85-8209GizrqkjabMercy Health St. [facility] Repository (1 source)traMADolDrug Yyxzppg90-00-6773EnkqgomycMercy Health St. [facility] Repository Medications Current Medications MedicationDrug Class(es)DatesSig (Normalized)Sig (Original)acetaminophen 500 mg oral tablet (20 sources)Start: 11-07-2024 End: 62-87-7103rgks 2 tablets by mouth every eight hours as needed for pain Acetaminophen 500 mg Tablet Active 1000 MG PO Q8H as needed for Pain 0 0 December 02, 2024 12:00am Complies with drug therapyStart: 11-01-2024 End: 65-97-7729rlwb 1 tablet by mouth twice dailyAcetaminophen (Acetaminophen Extra Strength) 500 mg tablet Discontinued 500 MG PO Twice daily November 01, 2024 12:00am December 02, 2024 10:51amStart: 07-10-2018 End: 34-57-6709kqly 1 tablet by mouth twice daily as needed for pain Acetaminophen (Tylenol Extra Strength) 500 mg Tablet Discontinued 500 MG PO Twice daily as needed for Pain July 10, 2018 12:00am September 04, 2024 8:22am acetaminophen (Tylenol Extra Strength) 500 MG tablet every 6 (six) hours. Active [id number] 200 actuat albuterol 0.09 mg/actuat metered dose inhaler (20 sources)beta2-Adrenergic AgonistStart: 84-89-0873kivq 1 puff(s) by inhalation every four to six hours as needed for wheezingAlbuterol Sulfate 90 mcg/actuation HFA aerosol inhaler Active 2 PUFF INHALATION EVERY 4-6 HOURS as n eeded for shortness of breath or wheezing September 04, 2024 12:00am Complies with drug therapyStart: 64-03-1969BxhHwq HFA Inhalation, q6hr Wheezing, Refill(s) 0 Start Date: 09/08/22 Status: OrderedStart: 84-68-1163tcoz 2 puff(s) by inhalation every four hours as neededalbuterol HFA (Proventil HFA) 90 mcg/act inhaler 2 puff(s), Inhalation, q4hr, Refill(s) 0, as needed 07/05/2022 ActiveAlbuterol (Eqv-ProAir HFA) 90 mcg/inh inhalation aerosol (3 sources)Start: 57-41-6126Psqpyygtq (Eqv-ProAir HFA) 90 mcg/inh inhalation aerosol See Instructions, 8.5 EA, Refill(s) 0, TAKE 2 PUFFS EVERY 4 HOURS NEEDED, [id number], 148, cm, 07/19/23 10:14:00 EDT, Height/Length Dosing, 61.7, kg, 07/19/23 10:14:00 EDT, Weight Dosing Start Date: 08/15/23 Status: Ordered Quantity: 8.5 Unit: EA Repeat number: 1Start: 02-22-7098Oeborostp (Eqv- ProAir HFA) 90 mcg/inh inhalation aerosol See Instructions, 8.5 EA, Refill(s) 0, TAKE 2 PUFFS EVERY 4 HOURS NEEDED, [id number], 148, cm, 07/19/23 10:14:00 EDT, Height/Length Dosing, 61.7, kg, 07/19/23 10:14:00 EDT, Weight Dosing Start Date: 08/15/23 Status: OrderedAspir-81 (2 sources)Aspir-81 Activeaspirin 81 mg delayed release oral tablet (20 sources)Platelet Aggregation Inhibitor, Nonsteroidal Anti-inflammatory Drug Start: 78-35-4200fthb 1 tablet by mouth once dailyAspirin 81 mg tablet,delayed release (DR/EC) Active 81 MG PO daily December 04, 2024 11:00am Complies with drug therapyStart: 11-07-2024 End: 95-98-5854esad 1 tablet by mouth twice dailyAspirin 81 mg tablet,delayed release (DR/EC) Discontinued 81 MG PO Twice daily 60 30 0 December 02, 2024 10:49am December 04, 2024 11:03am DO NOT RECONCILE UNTIL DOS:11/19/2024 MED TO BEDStart: 81-47-0590lmvl 81 mg by mouth once dailyaspirin 81 mg, Oral, Daily, Refills(s) 0 Start Date: 09/08/22 Status: Ordered Repeat number: 1Start: 07-10-2018 End: 28-20-6727sgqg 1 tablet by mouth once dailyAspirin 81 mg Tablet,Chewable Discontinued 81 MG PO Daily July 10, 2018 12:00am November 25, 2024 2:06pm On Hold: Resume on 12/25/24.aspirin 81 MG EC tablet 1 (one) time each day at the same time. ActiveSymbicort (20 sources)Corticosteroid, beta2-Adrenergic AgonistStart: 57-58-7027Nplmkwktp 80/4.5, Inhalation, BID, Refill(s) 0 Start Date: 09/08/22 Status: Ordered Repeat number: 1Start: 64-39-1965Vsvtpsztq 80/4.5, Inhalation, BID, Refill(s) 0 Start Date: 09/08/22 Status: OrderedStart: 58-56-2112Vngqbnjmh 80-4.5 MCG/ACT inhaler 06/13/2022 ActiveStart: 68-78-2691elbn 1 puff(s) by inhalation twice daily Budesonide-Formoterol 80-4.5 mcg/actuation HFA aerosol inhaler Active 2 PUFF INHALATION Twice dailyJuly 10, 2018 12:00am Complies with drug therapyStart: 24-72-1736damf 1 puff(s) by inhalation twice dailyStart: 11-17-2330haao 1 puff(s) by inhalation twice dailytake 2 puff(s) by inhalation twice daily Symbicort 80-4.5 MCG/ACT 2 puffs Inhalation Twice a day ActiveSymbicort Active bupivacaine hydrochloride 5 mg/ml injectable solution (14 sources)Amide Local Anestheticbupivacaine (Marcaine) 0.5 % injection bupivacaine HCl 0.5 % (5 mg/mL) injection solution via inject Activecalcium carbonate 500 mg chewable tablet (20 sources)Start: 03-10-4601lkms 1 tablet by mouth once daily in the morning Calcium Carbonate (Calcium Antacid) 200 mg calcium (500 mg) tablet,chewable Active 200 MG PO Every morning November 01, 2024 12:00am Complies with drug therapyStart: 86-33-4625Yqau mg, Chewed, Daily, Refills(s) 0 Start Date: 09/08/22 Status: Ordered Repeat number: 1Start: 94-85-8393Rjbh mg, Chewed, Daily, Refills(s) 0 Start Date: 09/08/22 Status: OrderedStart: 07-10-2018 End: 55-68-6274zbsm 1 tablet by mouth twice dailyCalcium Carbonate (Tums) 200 mg calcium (500 mg) Tablet,Chewable Discontinued 200 MG PO Twice dailyMay 2018 12:00am September 04, 2024 8:22amcalcium carbonate (Os-Yung) 1250 (500 Ca) MG chewable tablet Chew 200 mg in the morning. ActiveTums Activecandesartan cilexetil 4 mg oral tablet (20 sources)Angiotensin 2 Receptor BlockerStart: 54-07-5096wxql 1 tablet by mouth once daily at bedtimeCandesartan 4 mg tablet Active 4 MG PO Daily at bedtime July 10, 2018 12:00am Complies with drug therapyCandesartan Cilexetil-HCTZ (1 source)Candesartan Cilexetil-HCTZ Activecelecoxib 200 mg oral capsule (20 sources)Nonsteroidal Anti-inflammatory DrugStart: 71-21-9816eufbbeqru (CeleBREX) 200 MG capsule 1 (one) time each day at the same time. 07/05/2022 ActiveStart: 07-10-2018 End: 61-40-7002cskz 1 capsule by mouth twice daily as needed for painCelecoxib 200 mg capsule Active 200 MG PO Twice daily as needed for pain 60 0 December 02, 2024 10:49am Complies with drug therapyCelecoxib Activecephalexin 500 mg oral capsule (14 sources)Cephalosporin AntibacterialStart: 00-10-0698rpdf 1 capsule by mouth in the morningcephalexin (Keflex) 500 MG capsule Take 500 mg by mouth in the morning and 500 mg before bedtime. 04/07/2022 Activedesonide 0.5 mg/ml topical cream (14 sources)CorticosteroidStart: 82-81-1888kioaphdz (DesOwen) 0.05 % cream APPLY SMALL AMOUNT 3 TIMES A DAY NEEDED 07/11/2022 Activedigoxin 0.125 mg oral tablet (20 sources)Cardiac GlycosideStart: 83-33-6953ceor 1 tablet by mouth once daily digoxin 125 mcg (0.125 mg) Tab See Instructions, TAKE 1 TABLET BY MOUTH EVERY DAY, # 90 tab(s), Refills(s) 3, Pharmacy: [facility] STORE [id number], 147, cm, 02/13/24 10:53:00 EST, Height/Length Dosing, 59.9, kg, 02/13/24 10:53:00 EST, Weight Dosing Start Date: 04/01/24 Status: Ordered Quantity: 90.0 Unit: tab(s) Repeat number: 1Start: 03-21-2023 End: 32-21-0915sdrh 1 tablet by mouth once dailydigoxin 125 mcg (0.125 mg) Tab 125 mcg = 1 tab(s), Oral, Daily, X 90 day(s), # 90 tab(s), Refills(s) 3, Pharmacy: [facility]/pharmacy #[id number], 148, cm, 03/21/23 8:51:00 EST, Height/Length Dosing, 64, kg, 03/21/23 8:51:00 EST, Weight Dosing Start Date: 03/21/23 Stop Date: 03/15/24 Status: OrderedStart: 91-94-8474zgiv 1 tablet by mouth once daily digoxin 125 mcg (0.125 mg) Tab 125 mcg = 1 tab(s), Oral, Daily, Refills(s) 0 Start Date: 07/05/22 Status: OrderedStart: 16-15-4913zbva 1 tablet by mouth once daily in the morningDigoxin 125 mcg tablet Active 125 MCG PO Every morning July 10, 2018 12:00am Complies with drug therapyDigoxin Activefamotidine 40 mg oral tablet (14 sources)Histamine-2 Receptor AntagonistStart: 28-56-9148ytbendkjjv (Pepcid) 40 MG tablet Take 40 mg by mouth. 07/05/2022 ActiveICaps AREDS 2 (3 sources)Start: 55-88-8369WRtqe AREDS 2 See Instructions, Refill(s) 0, take 2 orally daily Start Date: 07/05/22 Status: Orderedlevothyroxine sodium 0.05 mg oral tablet (20 sources)l-ThyroxineStart: 26-78-0275nnui 1 tablet by mouth once daily levothyroxine 50 mcg (0.05 mg) Tab See Instructions, TAKE 1 TABLET BY MOUTH EVERY DAY, # 90 tab(s),Refills(s) 1, [id number], cm, 05/20/24 10:52:00 EDT, Height/Length Dosing, 58.5, kg, 05/20/24 10:52:00 EDT, Weight Dosing Start Date: 05/20/24 Status: Ordered Quantity: 90.0 Unit: tab(s) Repeat number: 2Start: 35-40-0274uyvh 1 tablet by mouth once dailylevothyroxine 50 mcg (0.05 mg) Tab See Instructions, TAKE 1 TABLET BY MOUTH EVERY DAY, # 90 tab(s),Refills(s) 1, Pharmacy: [facility] STORE [id number], 147, cm, 09/19/23 10:15:00 EDT, Height/Length Dosing, 61.8, kg, 09/19/23 10:15:00 EDT, Weight Dosing Start Date: 10/18/23 Status: OrderedStart: 77-58-3044mfix 1 tablet by mouth once daily levothyroxine 50 mcg (0.05 mg) Tab 50 mcg = 1 tab(s), Oral, Daily, # 90 tab(s), Refills(s) 1, [id number] 148, cm, 03/21/23 8:51:00 EST, Height/Length Dosing, 64, kg, 03/21/23 8:51:00 EST, Weight Dosing Start Date: 03/21/23 Status: OrderedStart: 33-70-4149siup 1 tablet by mouth once daily levothyroxine 50 mcg (0.05 mg) Tab 50 mcg = 1 tab(s), Oral, Daily, Refills(s) 0 Start Date: 07/05/22 Status: OrderedStart: 49-85-0892yzdf 1 tablet by mouth once daily in the morningLevothyroxine 50 mcg tablet Active 50 MCG PO Every morning July 10, 2018 12:00am Complies with drugtherapyLevothyroxine Sodium Active meclizine hydrochloride 25 mg oral tablet (17 sources)AntiemeticStart: 37-36-8996opwd 1 tablet by mouth three times daily as needed for dizzinessMeclizine 25 mg tablet Active 25 MG PO Three times daily as needed for dizziness September 04, 2024 12:00am Complies with drug therapyStart: 00-16-9991wwxc 1 tablet by mouth every eight hours as needed for dizziness meclizine 25 mg Tab 25 mg = 1 tab(s), Oral, q8hr, as needed for dizziness, # 30 tab(s), Refills(s) 0, Pharmacy: [facility]/pharmacy #[id number], 147.8, cm, 07/26/22 15:28:00 EDT, Height/Length Dosing, 63.6, kg, 07/26/22 15:28:00 EDT, Weight Dosing Start Date: 08/25/22 Status: Ordered Quantity: 30.0 Unit: tab(s) Repeat number: 1 methylPREDNISolone (14 sources)CorticosteroidStart: 45-00-1035vwmgonQZYAINActmzb (Medrol Dospak) 4 MG tablets TAKE 6 TABLETS ON DAY 1 DIRECTED ON PACKAGE AND DECREASE BY 1 TAB EACH DAY FOR A TOTAL OF 6 DAYS 09/16/2022 Nubqnf77 hr metoprolol succinate 25 mg extended release oral tablet (20 sources)beta-Adrenergic BlockerStart: 59-92-9984ydclgacwph succinate XL (Toprol-XL) 25 MG 24 hr tablet metoprolol succinate ER 25 mg tablet,extended release 24 hr 07/05/2022 ActiveStart: 07-10-2018 End: 15-17-9083catr 1 tablet by mouth once daily in the eveningMetoprolol Succinate 25 mg tablet extended release 24 hr Active 25 MG PO Every evening July 10, 2018 12:00am Complies with drug therapymetoprolol tartrate (Lopressor) 25 MG tablet 1 (one) time each day at the same time. ActiveMetoprolol Tartrate Not-Takingmontelukast 10 mg oral tablet (20 sources)Leukotriene Receptor AntagonistStart: 04-01-9142ridn 1 tablet by mouth once daily in [...] 25 mg oral tablet (20 sources)Aldosterone AntagonistStart: 09-73-9968Wicjhjzeutkeem 25 mg tablet Active 12.5 MG PO Every morning 45 90 0 December 04, 2024 11:23am Complies with drug therapyStart: 82-89-7300hcggvwsvqpbsep (Aldactone) 25 MG tablet every 12 (twelve) hours. 07/05/2022 ActiveStart: 07-10-2018 End: 91-44-4937qzly 1 tablet by mouth once daily in the morningSpironolactone 25 mg tablet Discontinued 25 MG PO Every morning July 10, 2018 12:00am December 04, 2024 11:24amSpironolactone ActiveTylenol Extra Strength (4 sources)Start: 67-12-5541oxex 500 mg by mouth twice daily as needed for pain Tylenol Extra Strength 500 mg, Oral, BID, PRN as needed for pain, Refills(s) 0 Start Date: 09/08/22 Status: Ordered Repeat number: 1Start: 78-94-0628pjtj 500 mg by mouth twice daily as needed for painTylenol Extra Strength 500 mg, Oral, BID, PRN as needed for pain, Refills(s) 0 Start Date: 09/08/22 Status: OrderedVit C,K-Ob-Ygxnh-Lutein-Zeaxan (Preservision Areds-2) 250-90-40-1 mg capsule (10 sources)Start: 20-87-1010Xvo C,I-Lk-Xxtio-Lutein-Zeaxan (Preservision Areds- 2) 250-90-40-1 mg capsule Active 1 TAB PO Twice daily November 01, 2024 12:00am Complies with drug therapyStart: 11-01-2024 Completed/Discontinued Medications MedicationDrug Class(es)DatesSig (Normalized)Sig (Original)acetaminophen 325 mg / HYDROcodone bitartrate 5 mg oral tablet (12 sources)Opioid AgonistStart: 09-05-2024 End: 73-16-8801irsb 1 tablet by mouth three times daily as needed for pain Hydrocodone-Acetaminophen 5-325 mg tablet Discontinued 1 TAB PO Three times daily as needed for pain 6 2 0 September 05, 2024 November 01, 2024 10:44am Radiculopathy Radiculopathy, site unspecifiedAreds 2 1 tab (16 sources)Start: 07-10-2018 End: 04-92-5461isky 2 tablets by mouth twice dailyAreds 2 1 tab Discontinued 2 TAB PO Twice daily July 10, 2018 12:00am July 13, 2018 10:17amStart: 07-10-2018 End: 20-50-3358nkmf 2 tablets by mouth twice dailyAreds 2 1 tab Discontinued 2 TAB PO Twice daily July 09, 2018 11:00pm July 13, 2018 9:17amcefadroxil 500 mg oral capsule (9 sources)Cephalosporin AntibacterialStart: 11-07-2024 End: 53-97-3302fwbr 1 capsule by mouth every twelve hoursCefadroxil 500 mg capsule Discontinued 500 MG PO Q12H 14 7 0 November 07, 2024 12:00am December 02, 2024 10:51am DO NOT RECONCILE UNTIL DOS:11/19/2024 MED TO BED cholecalciferol 1.25 mg oral capsule (13 sources)Vitamin DStart: 09-04-2024 End: 69-97-3727sprx 1 capsule by mouth two times weeklyCholecalciferol (Vitamin D3) 1,250 mcg (50,000 unit) capsule Discontinued 1250 MCG PO Twice a Week September 04, 2024 12:00am November 01, 2024 10:44amdocusate sodium 50 mg / sennosides, nursing home 8.6 mg oral tablet (9 sources)Start: 11-07-2024 End: 98-40-6140nirk 2 tablets by mouth once dailySennosides-Docusate Sodium (Senokot-S) 8.6-50 mg tablet Discontinued 2 TAB PO daily 60 30 0 November 07, 2024 12:00am December 02, 2024 10:51am DO NOT RECONCILE UNTIL DOS:11/19/2024 MED TO BEDergocalciferol 1.25 mg oral capsule (10 sources)Provitamin D2 CompoundStart: 09-13-2024 End: 45-15-6376diwv 1 capsule by mouth every weekErgocalciferol (Vitamin D2) 1,250 mcg (50,000 unit) capsule Discontinued 1250 MCG PO Q7D 8 60 0 September 13, 2024 12:00am November 01, 2024 10:44amondansetron 4 mg oral tablet (9 sources)Serotonin-3 Receptor AntagonistStart: 11-07-2024 End: 67-97-8102bxus 1 tablet by mouth every eight hours as needed for nausea Ondansetron Hcl 4 mg tablet Discontinued 4 MG PO Q8H as needed for Nausea 9 0 November 07, 2024 12:00am December 04, 2024 11:02am DO NOT RECONCILE UNTIL DOS:11/19/2024 MED TO BEDoxyCODONE hydrochloride 5 mg oral tablet (9 sources)Opioid AgonistStart: 11-07-2024 End: 55-57-4827tfcd 1 tablet by mouth every four hours [...] tablet (14 sources)Proton Pump InhibitorStart: 11-07-2024 End: 47-94-3459cmxk 1 tablet by mouth once dailyPantoprazole (Protonix) 20 mg tablet,delayed release (DR/EC) Discontinued 20 MG PO daily 35 35 0 December 02, 2024 10:49am December 04, 2024 11:03am DO NOT RECONCILE UNTIL DOS:11/19/2024 MED TO BEDpolyethylene glycol 3350 44033 mg powder for oral solution (9 sources)Osmotic LaxativeStart: 11-07-2024 End: 29-77-3923Vtofbqymtbfr Glycol 3350 (Miralax) 17 gram/dose powder Discontinued 17 GM PO daily 7 7 0 November 07, 2024 12:00am December 02, 2024 10:51am 1 packed mixed with 8 ounces of fluid. DO NOT RECONCILE UNTIL DOS:11/19/2024 MED TO BEDpredniSONE 10 mg oral tablet (20 sources)Start: 11-07-2024 End: 37-44-9724tksl 1 tablet by mouth once dailyPrednisone 10 mg tablet Discontinued 10 MG PO daily 10 10 0 November 07, 2024 12:00am November 19, 2024 12:51pm DO NOT RECONCILE UNTIL DOS:11/19/2024 MED TO BEDStart: 09-05-2024 End: 75-58-9405jzaa 1 tablet by mouth once dailyPrednisone 20 mg tablet Discontinued 20 MG PO Daily 5 5 0 September 05, 2024 12:00am November 01, 2024 1 0:44amtraMADol hydrochloride 50 mg oral tablet (9 sources)Opioid AgonistStart: 11-07-2024 End: 71-40-8741ekns 1 tablet by mouth every six hours as needed for painTramadol 50 mg tablet Discontinued 50 MG PO Q6H as needed for Pain 40 7 0 November 07, 2024 12:00am December 02, 2024 10:51am Primary osteoarthritis of right hip Unilateral primary osteoarthritis, right hip DO NOT RECONCILE UNTIL DOS:11/19/2024 MED TO BEDVit C,F-Ma-Ohzml-Lutein-Zeaxan (Preservision Areds-2) 838-000-74-1 tt-hhyn-jt-mg Capsule (16 sources)Start: 07-13-2018 End: 82-39-0720xdgr 1 capsule by mouth twice dailyVit C,D-Fb-Azdjm-Lutein-Zeaxan (Preservision Areds-2) 071-131-63-1 ch-hkxc-nh-mg Capsule Discontinued 2 TAB PO Twice daily July 13, 2018 12:00am September 04, 2024 8:22amStart: 73-45-3421mfsm 1 capsule by mouth twice dailyVit C,Z-Lz-Vchhb-Lutein-Zeaxan (Preservision Areds- 2) 963-887-98-1 mr-wdxg-vs-mg Capsule Active 2 TAB PO Twice daily July 13, 2018 12:00amStart: 53-41-0007ukmv 1 capsule by mouth twice dailyVit C,D-Eu-Dzmht-Lutein-Zeaxan (Preservision Areds-2) 518-829-70-1 vd-koxm-ic-mg Capsule Active 2 TAB PO Twice daily July 12, 2018 11:00pm Problems Active Problems Problem ClassificationProblemDateDocumented DateEpisodic/ChronicAbdominal pain (6 sources)Right upper quadrant pain; Translations: [Right upper quadrant pain] EpisodicAcquired foot deformities (4 sources)Vbsh-mlif95-41gsxu58-13-4897CsmmiufdBslrmmpummwmru/social admission (19 sources)Bereavement; Translations: [Other reduced mobility]Onset: 11-19-2024 88-96-6822CsrrryzhKnhlxs (4 sources)Hclrdr71-82-6943ShidxadJuhweb; other and unspecified primary (3 sources)Squamous cell carcinoma in situOnset: hronic Cardiac dysrhythmias (20 sources)Irregular heart beat; Translations: [Cardiac arrhythmia, unspecified]62-02-5991TxqudqaPinbzcpvlk associated with dizziness or vertigo (5 sources)Benign paroxysmal vertigo, unspecified ear; Translations: [Labyrinthitis]Onset: 20-94-4756KgykrzloUqrjabpuog disorders (20 sources)Left bundle branch block; Translations: [Left bundle-branch block, unspecified]90-26-8645DuzruqjIqiadjdkz of lipid metabolism (4 sources)Vgksjiflzeqsjpksqbmc98-46-7748LtovhutJliivcgewextam and diverticulitis (4 sources)Diverticular pszgryc31-11-9948WdvupybZfzeciyjn hypertension (20 sources)Hypertensive disorder; Translations: [Essential hypertension]Onset: 979977-39-3109ZbeyhoeJdouh valve disorders (6 sources)Nonrheumatic aortic (valve) stenosis; Translations: [Rheumatic disorders of both mitral and aortic valves]Onset: 06-64-9341LgndydhFbyvg valve disorders (4 sources)Heart zdxheg97-99-8337ObiyggqzMwwegiz on above:bicuspid aortic valve Hypertension with complications and secondary hypertension (2 sources)Hypertensive heart disease without heart failure; Translations: [Hypertensive heart disease withoutheart failure]Onset: 95-55-9981Icmucwg Inflammation; infection of eye (except that caused by tuberculosis or sexually transmitteddisease) (18 sources)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; Translations: [Unspecified blepharitis right eye, upper and lower eyelids]Onset: 968503-26-8308KlwpbkzhPkgqouxwn of unspecified nature or uncertain behavior (4 sources)Neoplasm of uncertain behavior of skin; Translations: [Neoplasm of uncertain behavior of skin]31-64-8963RmugmpxkJjdsimwxzyyaym (20 sources)Osteoarthritis of hip; Translations: [Osteoarthritis of right hip joint]Onset: 827635-03-2573RoubchzRivlvlzbcodz (2 sources)Osteoporosis; Translations: [Age-related osteoporosis without current pathological fracture]Onset: 413358-87-2213LgbdkivRbvwo acquired deformities (1 source)Deformity of rjwf21-04-7304IupfgzjxJvvqz aftercare (6 sources)Patient encounter status; Translations: [Aftercare following joint replacement surgery]56-64-7944NkdlkxhSthcj aftercare (1 source)Aftercare following joint replacement surgery; Translations: [Aftercare following joint replacementsurgery]Onset: 46-50-5931TnsatiuHyulb bone disease and musculoskeletal deformities (3 sources)Nmiinlqkxt70-31-9797WjyyxgxwFclrp OPERATIONS AND MAINTENANCE SPECIALIST infection and poliomyelitis (20 sources)Post poliomyelitis syndrome; 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] Onset: 853696-63-4669YlhfcncZgfwa OPERATIONS AND MAINTENANCE SPECIALIST infection and poliomyelitis (20 sources)H/O: poliomyelitis; Translations: [Personal history of poliomyelitis]Onset: 066488-08-0166OigiottcNtvis connective tissue disease (20 sources)History of total hip arthroplasty; Translations: [Presence of right artificial hip joint]40-18-1392OqflruoJdhhi connective tissue disease (1 source)Presence of right artificial hip joint; Translations: [Presence of right artificial hip joint]Onset: 04-40-7081VsqpqgrPpork connective tissue disease (2 sources)Pain of toe of right foot; Translations: [Pain in right toe(s)] 50-98-7656DprttcoyHukng eye disorders (18 sources)Dry eyes; Translations: [Dry eye syndrome of bilateral lacrimal glands]Onset: 552880-17-0311DuuulvudFurbm gastrointestinal disorders (18 sources)Dysphagia; Translations: [Dysphagia, unspecified]70-18-8765Enenmfwt Comment on above:Problem List clean-up per request of Phys. EHR CmteOther hereditary and degenerative nervous system conditions (4 sources)Restless lgck92-85-1823YoxnchvXwvua liver diseases (20 sources)Steatosis of liver; Translations: [Fatty (change of) liver, not elsewhere classified]26-53-6982OwphzmwXjwdd liver diseases (5 sources)Fatty (change of) liver, not elsewhere classified; Translations: [Other chronic nonalcoholic liver disease]Onset: 18-34-0093QftrwygEkhsg nervous system disorders (1 source)Disorder of the autonomic nervous system, unspecified; Translations: [DISORDER AUTONOMIC NERVOUS SYS UNS]Onset: 96-12-9592QdhyllzLuvav nervous system disorders (1 source)Other disorders of autonomic nervous system; Translations: [OTH DISORDERS AUTONOMIC NERVOUS SYS]Onset: 88-09-6233TpcszivUglat nervous system disorders (2 sources)Other chronic pain; Translations: [Other chronic pain]Onset: 94-19-9108EyivlxtNgmwm non-traumatic joint disorders (20 sources)Hip pain; Translations: [Pain in right hip]53-47-2039GgjcwyozAadsw non-traumatic joint disorders (2 sources)Pain in left shoulder; Translations: [Pain in left shoulder]Onset: 56-34-8359RrasgqvvGnphg non-traumatic joint disorders (3 sources)Pain in right hip; Translations: [Pain in right hip]Onset: 07-24-2024 EpisodicOther nutritional; endocrine; and metabolic disorders (3 sources)Fbmsxtnryc66-21-2047PbsfkpviJbqyb screening for suspected conditions (not mental disorders or infectious disease) (1 source)Abnormal electrocardiogram [ECG] [EKG]; Translations: [Abnormal electrocardiogram [ECG] [EKG]]Onset: 53-21-0037RirzbzfgKnrkq skin disorders (4 sources)Nail dystrophy; Translations: [NAIL DYSTROPHY]Onset: 06-08-2022 EpisodicOther upper respiratory disease (1 source)Allergic roseincz25-72-8834ZucpngzEaimf upper respiratory disease (3 sources)Allergic rhinitis due to pollen; Translations: [Allergic rhinitis due to pollen]81-21-9601HobzolrJsrfp upper respiratory disease (2 sources)Nasal axmcgohmde21-79-1813DxqvfvdwHfepr upper respiratory infections (1 source)Acute upper respiratory tcrwklvow54-36-8344SktskdxeNxuh-; endo-; and myocarditis; cardiomyopathy (except that caused by tuberculosis or sexually transmitted disease) (1 source)Cardiomyopathy, unspecified; Translations: [Cardiomyopathy, unspecified]Onset: 34-50-0610McknhetMazjimtnts and visceral atherosclerosis (1 source)Peripheral vascular disease, unspecified; Translations: [PERIPHERAL VASCULAR DISEASE UNS]Onset: 23-99-5593YclmrwcVsdotuue codes; unclassified (1 source)Other specified health status; Translations: [Other specified health status]Onset: 96-71-5908GnxtubhnHwofqut detachments; defects; vascular occlusion; and retinopathy (18 sources)Nonexudative age-related macular degeneration; Translations: [Nonexudative age-related macular degeneration, bilateral, advanced atrophic with subfoveal involvement]Onset: 806550-04-0178FmgeveuTvhshdbgeme; intervertebral disc disorders; other back problems (12 sources)Cervical spondylosis; Translations: [Lumbar spondylosis]07-05-2022 ChronicThyroid disorders (4 sources)Pnfutgkwvbbkxq99-66-2450GmksaxlYuqvqoshqomg (3 sources)COUGH, UNSPECIFIED; Translations: [COUGH, UNSPECIFIED]Onset: 23-81-5836Fezcifxigyyk (3 sources)Pain of knee jbuehs92-09-7744Tflytyhbexxp (3 sources)Pain of right shoulder souzpr89-66-9715Epmujjgvrhbk (10 sources)Follow up with rehab physician as neededUnclassified (10 sources)Call to schedule follow up appointment with PCP after dischargeViral infection (4 sources)Verruca plantaris; Translations: [Plantar wart]44-82-3491Rjpogygk Viral infection (1 source)COVID-19; Translations: [COVID-19]Onset: 09-10-2021 Past or Other Problems Problem ClassificationProblemDateDocumented DateEpisodic/ChronicMycoses (2 sources)Tinea unguium; Translations: [Dermatophytosis, unspecified]Onset: 01-50-4818YgoylmztMiwow aftercare (2 sources)Encounter for therapeutic drug level monitoring; Translations: [Encounter for therapeutic drug level monitoring]Onset: 59-32-9973ZvxetwriUaxxx aftercare (3 sources)[facility] [place] [facility] [place]; Translations: [Other [place] [facility] [place] ([place] drug therapy]Onset: 28-51-3412ZztiwyufMplez circulatory disease (4 sources)Other specified symptoms and signs involving the circulatory and respiratory systems; Translations:[OTH SPEC SX SIGNS INVLV CIRC RS]Onset: 26-16-3618OfpkhimwBpbmw non-traumatic joint disorders (3 sources)Pain in right shoulder; Translations: [Pain in right shoulder]Onset: 49-78-5942DgninspiKjxxw skin disorders (1 source)Onychogryphosis; 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]Onset: 09-02-2021 EpisodicSpondylosis; intervertebral disc disorders; other back problems (15 sources)Sciatica; Translations: [Nerve root disorder]Onset: 09-05-2024 14-61-5528AvkwyzopKehahbdlyips (1 source)COUGH, UNSPECIFIED; Translations: [COUGH, UNSPECIFIED]Onset: 09-07-2021 Results Test NameValueInterpretationReference RangeFacilityAmbulatory Visit Summaryon 23-11-1714Neodvylwnn Visit SummaryAmbulatory Visit Summary JASONUNA :1940 Visit [...] PM EST With: Stew Cottrell DO Where: [place] [address]- Monday 1:40 PM EST With: Stew Cottrell DO Where: [place] [id number]- Monday2025 11:00 AM EDT With: Where: [place] [id number]- You Need to Schedule the Following Appointments [...] If you are n (more content not included)...[facility] SystemAmbulatory Visit Summaryon 39-79-1003Ukqrydpyzd Visit SummaryAmbulatory Visit Summary UNA GOMEZ :1940 [...] PM EST With: Stew Cottrell DO Where: [facility] [address] [place] [address]- Monday2025 11:00 AM EDT With: Where: [facility] [address] [address]- You Need to Schedule the Following Appointments [...] signed up for this yet, please contact [employer] at [phone] to get signed up today. Language Information Language assistance services are available as needed. [facility] Medicine Office/Clinic Noteon 63-56-2584Ddrsip Medicine Office/Clinic NoteFajewish healthcare center Medicine Office/Clinic Note HPI Staff Pt is [...] day(s), # 21 tab(s), Refills(s) 0, Pharmacy: [facility]/pharmacy #[id number], 147, cm, 01/10/25 14:43:00 EST, Height/Length Dosing, 56.6, kg, 01/10/25 14:43:00 EST, Weight Dosing Orders: predniSONE, 10 mg = 1 tab(s), Oral, Daily, X 7 day(s), # 7 tab(s), Refills(s) 0, Pharmacy: [facility]/pharmacy #[id number], 147, cm, 01/10/25 14:43:00 EST, Height/Length Dosing, 56.6, kg, 01/10/25 14:43:00 EST, Weight Dosing Follow-up With When Contact Information Stew Cottrell DO, FAM, PED In 1 week [...] 50,000 intl units (1.25 mg) oral capsule, [address] International_Unit= 1 cap(s), Oral, 2x/Wk, 3 refills [...] virus vaccine, inactivated 12/14/2022 Recorded SARS-CoV-2 (COVID-19) mRNAMUL.ORD![id number] 02/10/2022 Recorded influenza (more content not included)...[facility] SystemComment on above:Result Comment: Electronically Signed By: Stew Cottrell DO\.br\Date and Time Signed: 01/10/25 15:59 [facility] Medicine Office/Clinic Noteon 95-06-2237Bmadzi Medicine Office/Clinic NoteW[facility] Medicine Office/Clinic Note HPI Staff Pt is presenting to establish care Establish Care: History: Any previous diagnosis: none History of seeing any specialist: accredited pharmacy technician When was your last doctors visit: 12/16/24 [...] Had hip surgery , Dr. Hernandez in [place]. Has been getting tired more easily since [...] Patient follows with cardiology and GI at [facility]. She also follows with Dr. Louise for [...] Instructions, 4 refills d (more content not included)...[facility] SystemComment on above:Result Comment: Electronically Signed By: Stew Cottrell DO\.br\Date and Time Signed: 01/09/25 11:29 ESTAmbulatory Visit Summaryon 28-13-0784Gvfewydnkq Visit SummaryAmbulatory Visit Summary UNA GOMEZ :1940 [...] PM EST With: Stew Cottrell DO Where: [address] [address]- Monday2025 11:00 AM EDT With: Where: [address] [address]- You Need to Schedule the Following Appointments [...] signed up for this yet, please contact [employer] at [phone] to get signed up today. Language Information Language assistance services are available as needed. [facility] SystemX-ray reportOrdered By: Jamarcus Meneses on 61-82-5036Mvvht [facility] [address] [place] [address] XRay Report Signed Patient: Una Gomez MR#: [id number] : 1940 Acct:[id number] Age/Sex: 84 / F ADM Date: 5 Loc: SOXD Room: Type: [facility] Attending Dr: Fred Hernandez II, MD Copies [...] fracture identified. Severe degenerative changes left hip. Nyky-xz-fhnqtcab degenerative changes sacroiliac joints. Degenerative changes lumbosacral junction. XR/XR hip RT min 2V(w/wo pelvis)* IMPRESSION: Satisfactory right total hip arthroplasty. Severe degenerative changes left hip . Impression dictated by: Jamarcus Meneses M.D. 01/03/2025 6:01 PM Dictation Location: [facility] Transcribed By: [facility] 01/03/251800 Dictated By: Jamarcus Meneses MD 01/03/251756 Signed By: 01/03/25[address] [facility] Work Phone: XR hip RT min 2V(w/wo pelvis)*on 55-32-6846GO hip RT min 2V(w/wo pelvis)*[facility] [address] [place] [address] XRay Report Signed Patient: Una Gomez MR#: [id number] : 1940 Acct:[id number] Age/Sex: 84 / F ADM Date: 01/03/25 Loc: [facility] Room: Type: [facility] Attending Dr: Fred Hernandez II, MD Copies [...] fracture identified. Severe degenerative changes left hip. Ggxm-zm-zowvuklr degenerative changes sacroiliac joints. Degenerative changes lumbosacral junction. XR/XR hip RT min 2V(w/wo pelvis)* IMPRESSION: Satisfactory right total hip arthroplasty. Severe degenerative changes left hip . Impression dictated by: Jamarcus Meneses M.D. 01/03/2025 6:01 PM Dictation Location: [place] [address] Transcribed By: [facility] 01/03/251800 Dictated By: Jamarcus Meneses MD 01/03/251756 Signed By: 01/03/251800[facility] GroupAmbulatory Visit Summaryon 59-87-6184Cedtwetvjv Visit SummaryAmbulatory Visit Summary UNA GOMEZ :1940 [...] 1:40 PM EST With: Marlee Martinez Where: [address] [address]- Monday2025 11:00 AM EDT With: Where: [address] [address]- Medications What How Much When Why Instructions [...] signed up for this yet, please contact [employer] at [phone] to get signed up today. Language Information Language assistance services are available as needed. [facility] Medicine Office/Clinic Noteon 55-52-1347Vdhpfp Medicine Office/Clinic NoteFajewish healthcare center Medicine Office/Clinic Note HPI Staff TCM: 14 day Hospital: [facility] Admission date: 11/25 Discharge date:12/02 Symptoms the [...] data available Patient Education Total Hip Replacement, Nxri-ln-Thgt Problem List/Past Medical History Ongoing BMI 27.0-27.9,adult [...] 50,000 intl units (1.25 mg) oral capsule, 49755 International_Unit= 1 cap(s), Oral, 2x/Wk, 3 refills [...] virus vaccine, inactivated 12/14/2022 Recorded SARS-CoV-2 (COVID-19) mRNAMUL.ORD![id number] 02/10/2022 Recorded influenza virus vaccine, inactivated 12/27/2021 Recorded SARS-CoV-2 (COVID-19) mRNA-1273 vaccine 03/17/2021 Recorded 2022-07-04: TPV80 influenza virus vaccine, inactivated 02/10/2021 Recorded pneumococca (more content not included)...[facility] Comment on above:Result Comment: Electronically Signed By: [...] feel free to contact me at extension [phone]. Thank you! Sapphire Goel LPN Clinical Paster [employer] [place] [address] Extension: [phone] [email or web address] From: Marlee Martinez To: Sapphire Goel; Sent: 12/12/2024 08:35:38 EDT Subject: RE: Pre-Visit Planning Caller Name: UNA GOMEZ; Caller Number: Forrest , M moderate persistent [facility] [phone] Case Information Case Priority: None Programs: -- Referral Source: [employer] Portal Architect Referral Reason: Care coordination Case Type: Transition [...] 50,000 intl units (1.25 mg) oral capsule, [address] International_Unit= 1 cap(s), Oral, 2x/Wk, 3 refills [...] Care Plan Progress Note Admit Date: 11/25/24 [facility] Date of Discharge: 12/02/24 Follow-up appointment scheduled? [...] will be doing out patient PT at [facility] Called patient for initial Transitional Care Management [...] time of call. Patient underwent surgery at [facility], she was admitted there 11/19-11/25, prior to transitioning to the rehab unit. Patient states she is feeling 'good.' Notes she is ambulating without difficulty, she only uses walker if needed. She will complete PT at [facility] out patient clinic. Notes her appetite is [...] Method: Phone c (more content not included)...Normal [facility] CenterComplete Blood Count Auto Diffon 68-73-1172Vedwqlzhm (Bld) [#/Vol]0.0 10*3/uLNormal0.0-0.2The [facility] Physician GroupComment on above:Result Comment: PERFORMED BY: [facility] [address] [place] [id number] PATHOLOGIST SLATE SPLITTER BRENT LOPEZ M.D.Performed By: #### CBC, CMP, PAB ####[place] [address] USABasophils/100 WBC (Bld)0.3 % Normal.The [facility] Physician GroupComment on above:Performed By: #### CBC, CMP, PAB ####[place] [address] USAEosinophils (Bld) [#/Vol]0.3 10*3/uLNormal0.0-0.45The [facility] Physician GroupComment on above:Performed By: #### CBC, CMP, PAB ####[place] [address] USAEosinophils/100 WBC (Bld)5.2 % Normal.The [facility] Physician GroupComment on above:Performed By: #### CBC, CMP, PAB ####[place] [id number] USAErythrocyte distribution width (RBC) [Ratio]15.6 %High11.9-15.3The [facility] Physician GroupComment on above:Performed By: #### CBC, CMP, PAB ####[place] [address] USAHematocrit (Bld) [Volume fraction]28.8 %Low34.0-46.4The [facility] Physician GroupComment on above:Performed By: #### CBC, CMP, PAB ####[place] [address] USAHemoglobin (Bld) [Mass/Vol]9.9 g/dLLow 11.8-15.4The [facility] Physician GroupComment on above:Performed By: #### CBC, CMP, PAB ####[place] [address] USALymphocytes (Bld) [#/Vol]1.7 10*3/uLNormal1.00-4.8The [facility] Physician GroupComment on above:Performed By: #### CBC, CMP, PAB ####[place] [address] USALymphocytes/100 WBC (Bld)30.4 %Normal.The [facility] Physician GroupComment on above:Performed By: #### CBC, CMP, PAB ####[address] Morgan StreetH (RBC) [Entitic mass]29.3 mnHjlpoh98.7-34.3The [facility] Comment on above:Performed By: #### CBC, CMP, PAB ####[address]MCV (RBC) [Entitic vol]85.5 fLNormal 80-100The [facility] Physician GroupComment on above:Performed By: #### CBC, CMP, PAB ####[address] Mean Corpuscular HGB Conc34.2 g/qCDkpzvm33.0-35.0The [facility] Comment on above:Performed By: #### CBC, CMP, PAB ####[place] [address] USAMonocytes (Bld) [#/Vol]0.6 10*3/uL Normal0.0-0.8The [facility] Physician GroupComment on above:Performed By: #### CBC, CMP, PAB ####[place] [address] USAMonocytes/100 WBC (Bld)11.0 %Normal.The [facility] Comment on above:Performed By: #### CBC, CMP, PAB ####[place] [address] USANeutrophils (Bld) [#/Vol]3.0 10*3/uL Normal1.8-7.7The [facility] Physician GroupComment on above:Performed By: #### CBC, CMP, PAB ####[place] [address] USANeutrophils/100 WBC (Bld)53.1 %Normal.The [facility] Comment on above:Performed By: #### CBC, CMP, PAB ####[place] [address] USANRBC%0.1 /100{WBC}Normal0-0.5The [facility] Physician GroupComment on above:Performed By: #### CBC, CMP, PAB ####[place] [address] [place] Platelet mean volume (Bld) [Entitic vol]7.3 fLNormal6.3-10.7The [facility] Physician GroupComment on above:Performed By: #### CBC, CMP, PAB ####[place] [address] USAPlatelets (Bld) [#/Vol]233 10*3/bEOyhmud840-823Xuq [facility] Physician GroupComment on above: Performed By: #### CBC, CMP, PAB ####[place] [address] USARBC (Bld) [#/Vol]3.37 10*6/uLLow3.60-5.00The [facility] Physician GroupComment on above:Performed By: #### CBC, CMP, PAB ####[place] [address] USAWBC (Bld) [#/Vol]5.6 10*3/uLNormal3.8-11.6The [facility] Physician GroupComment on above:Performed By: #### CBC, CMP, PAB ####[address] [address] USAWhite Blood Count5.6 [CFU]/mLNormal3.8-11.6The [facility] Physician GroupComment on above:Performed By: #### CBC, CMP, PAB ####[address] [address] RUST Comprehensive Metabolic Panelon 07-67-0055Gjwuqjl [Mass/Vol]3.4 g/dLLow3.5-5.7 The [facility] Physician GroupComment on above:Performed By: #### CBC, CMP, PAB ####[place] [id number] RUST Albumin/Globulin [Mass ratio]1.5 {ratio}NormalThe [facility] Comment on above:Performed By: #### CBC, CMP, PAB ####[address] [address] USAALP [Catalytic activity/Vol]58 U/L Dhdunz83-584Zdo [facility] Physician GroupComment on above:Performed By: #### CBC, CMP, PAB ####[address] [address] USAALT [Catalytic activity/Vol]20 U/LNormal7-52The [facility] Physician GroupComment on above:Performed By: #### CBC, CMP, PAB ####[address] [address] USAAnion gap [Moles/Vol]10.0 mmol/LNormal6.0-15.0The [facility] Physician GroupComment on above:Performed By: #### CBC, CMP, PAB ####[address] [address] USAAST [Catalytic activity/Vol]29 U/NQegliy81-65Hda [facility] Physician GroupComment on above:Performed By: #### CBC, CMP, PAB ####[address] [address] USABilirubin [Mass/Vol]0.7 mg/dL Normal0.3-1.0The [facility] Physician GroupComment on above:Performed By: #### CBC, CMP, PAB ####[place] [address] [place] [address] USACalcium [Mass/Vol]8.8 mg/dLNormal8.6-10.3The [facility] Comment on above:Performed By: #### CBC, CMP, PAB ####[address] [address] USAChloride [Moles/Vol]106 mmol/LNormal 98-107The [facility] Physician GroupComment on above:Performed By: #### CBC, CMP, PAB ####[address] [address] [place] CO2 [Moles/Vol]26.1 mmol/NEsafhg00.0-31.0The [facility] Physician GroupComment on above:Performed By: #### CBC, CMP, PAB ####[place] [address] USACreatinine [Mass/Vol]0.65 mg/dLNormal0.60-1.20 The [facility] Physician GroupComment on above:Performed By: #### CBC, CMP, PAB ####[place] [id number] [place] Creatinine Clr Calc Evxtoynn74.56NormAdventHealth for Children Physician GroupComment on above:Performed By: #### CBC, CMP, PAB ####[place] [id number] USAGFR/1.73 sq M.predicted MDRD (S/P/Bld) [Vol rate/Area]mL/min/{1.73_m2}NormalThe [facility] Physician GroupComment on above: Performed By: #### CBC, CMP, PAB ####[address] [address] USAGlobulin (S) [Mass/Vol]2.2 g/dLNoAtrium Health [facility] Physician GroupComment on above:Performed By: #### CBC, CMP, PAB ####[place] [id number] USAGlucose [Mass/Vol]114 mg/fFCfkz76-621Nlq [facility] Physician GroupComment on above:Result Comment: Random Glucose Reference Range is dependent on time and content of last meal. Glucose of more than 200 mg/dL in a nonstressed, ambulatory subject supports the diagnosis of Diabetes Mellitus. ADA recommended reference rangePerformed By: #### CBC, CMP, PAB ####[place] [address] [place] [address] USAPotassium [Moles/Vol] 4.1 mmol/LNormal3.5-5.1The [facility] Physician GroupComment on above:Performed By: #### CBC, CMP, PAB ####[place] [address] [place] [address] USAProtein [Mass/Vol]5.6 g/dLLow6.4-8.9The [facility] Physician GroupComment on above:Performed By: #### CBC, CMP, PAB ####[address] [address] USASodium [Moles/Vol]138 mmol/CPfavrd040-784Igc [facility] Physician GroupComment on above:Performed By: #### CBC, CMP, PAB ####[address] [address] USAUrea nitrogen [Mass/Vol]10 mg/dLNormal7-25The [facility] Physician GroupComment on above:Performed By: #### CBC, CMP, PAB ####[address] [address] USAPrealbuminon 11-26-2024 Prealbumin [Mass/Vol]14.1 mg/dLLow17.0-34.0The [facility] Physician GroupComment on above:Result Comment: PERFORMED BY: [facility] [address] [facility]IT[address] [place] [id number] PATHOLOGIST SLATE SPLITTER BRENT LOPEZ M.D.Performed By: #### CBC, CMP, PAB ####[address] [address] USABasic Metabolic Panelon 59-45-2491Vqqov gap [Moles/Vol]7.2 mmol/LNormal6.0-15.0The [facility] Physician GroupComment on above:Performed By: #### BMP, CBC ####[address] [place] [address] USACalcium [Mass/Vol]8.1 mg/dLLow 8.6-10.3The [facility] Physician GroupComment on above:Performed By: #### BMP, CBC ####[address] [place] [address] [place] Chloride [Moles/Vol]104 mmol/PUfjvom12-100Xwy [facility] Physician GroupComment on above:Performed By: #### BMP, CBC ####[address] [place] [address] USACO2 [Moles/Vol]26.9 mmol/ABpoocf26.0-31.0The [facility] Physician GroupComment on above:Performed By: #### BMP, CBC ####[address] [address] [place] Creatinine [Mass/Vol]0.58 mg/dLLow0.60-1.20The [facility] Physician GroupComment on above:Performed By: #### BMP, CBC ####[address] [place] [address] USACreatinine Clr Calc Qaigtsrs98.08NormAdventHealth for Children Physician [facility] Of MississippiComment on above:Result Comment: PERFORMED BY: [facility] [address] [place] [id number] PATHOLOGIST SLATE SPLITTER BRENT LOPEZ M.D.Performed By: #### BMP, CBC ####[address] [address] USAGFR/1.73 sq M.predicted MDRD (S/P/Bld) [Vol rate/Area]mL/min/{1.73_m2}NormalThe [facility] Physician GroupComment on above:Performed By: #### BMP, CBC ####[address] [address] USAGlucose [Mass/Vol]99 mg/hHJnlayu22-566Wxo [facility] Physician GroupComment on above:Result Comment: Random Glucose Reference Range is dependent on time and content of last meal. Glucose of more than 200 mg/dL in a nonstressed, ambulatory subject supports the diagnosis of Diabetes Mellitus. ADA recommended reference rangePerformed By: #### BMP, CBC ####[place] [address] USAPotassium [Moles/Vol] 4.1 mmol/LNormal3.5-5.1The [facility] Physician GroupComment on above:Performed By: #### BMP, CBC ####[place] [address] USASodium [Moles/Vol]134 mmol/DRam655-591Iyq [facility] Physician [facility] Comment on above:Performed By: #### BMP, CBC ####[place] [address] USAUrea nitrogen [Mass/Vol]12 mg/dLNormal 7-25The [facility] Physician GroupComment on above:Performed By: #### BMP, CBC ####[address] Complete Blood Count Auto Diffon 09-90-5280Wasysfuyu (Bld) [#/Vol]0.0 10*3/uL Normal0.0-0.2The [facility] Physician [facility] MississippiComment on above:Result Comment: PERFORMED BY: [address] [place] [address] PATHOLOGIST SLATE SPLITTER BRENT LOPEZ M.D.Performed By: #### BMP, CBC ####[place] [address] USABasophils/100 WBC (Bld)0.2 %Normal.The [facility] Physician GroupComment on above:Performed By: #### BMP, CBC ####[place] [address] [place] Eosinophils (Bld) [#/Vol]0.1 10*3/uLNormal0.0-0.45The [facility]ician [facility] Comment on above:Performed By: #### BMP, CBC ####[place] [address] USAEosinophils/100 WBC (Bld)1.0 %Normal. The [facility] Physician GroupComment on above:Performed By: #### BMP, CBC ####[place] [address] [place] Erythrocyte distribution width (RBC) [Ratio]15.7 %High11.9-15.3The [facility] Physician GroupComment on above:Performed By: #### BMP, CBC ####[place] [address] USAHematocrit (Bld) [Volume fraction]29.4 %Low34.0-46.4The [facility] Physician GroupComment on above:Performed By: #### BMP, CBC ####[place] [address] USAHemoglobin (Bld) [Mass/Vol]10.0 g/dLLow11.8-15.4The [facility] Physician GroupComment on above:Performed By: #### BMP, CBC ####[place] [address] [place] Lymphocytes (Bld) [#/Vol]2.3 10*3/uLNormal1.00-4.8The [facility] Comment on above:Performed By: #### BMP, CBC ####[place] [address] USALymphocytes/100 WBC (Bld)27.8 %Normal. The [facility] Physician GroupComment on above:Performed By: #### BMP, CBC ####[place] [address] USAMCH (RBC) [Entitic mass]29.4 bkHyzkkm09.7-34.3The [facility] Physician GroupComment on above:Performed By: #### BMP, CBC ####[place] [address] USAMCV (RBC) [Entitic vol]86.6 hQDjaqbw24-263Owv [facility] Physician GroupComment on above:Performed By: #### BMP, CBC ####[id number] USAMean Corpuscular HGB Conc33.9 g/vBDfjctv49.0-35.0The [facility] Physician GroupComment on above:Performed By: #### BMP, CBC ####[place] [address] USAMonocytes (Bld) [#/Vol]0.9 10*3/uLHigh0.0-0.8 The [facility] Physician GroupComment on above:Performed By: #### BMP, CBC ####[place] [address] [place] Monocytes/100 WBC (Bld)10.3 %Normal.The [facility] Physician GroupComment on above:Performed By: #### BMP, CBC ####[place] [address] USANeutrophils (Bld) [#/Vol]5.1 10*3/uLNormal1.8-7.7The [facility] Physician GroupComment on above:Performed By: #### BMP, CBC ####[place] [address] [place] Neutrophils/100 WBC (Bld)60.7 %Normal.The [facility] Physician GroupComment on above:Performed By: #### BMP, CBC ####[place] [address] USANRBC%0.0 /100{WBC}Normal0-0.5The [facility] Physician GroupComment on above:Performed By: #### BMP, CBC ####[place] [address] USAPlatelet mean volume (Bld) [Entitic vol]7.4 fLNormal6.3-10.7The [facility] Physician GroupComment on above: Performed By: #### BMP, CBC ####[place] [address] USAPlatelets (Bld) [#/Vol]174 10*3/lGLmgqlp941-328Izz [facility] Physician GroupComment on above:Performed By: #### BMP, CBC ####[facility] [address] USARBC (Bld) [#/Vol]3.39 10*6/uLLow3.60-5.00The [facility] Physician GroupComment on above:Performed By: #### BMP, CBC ####[facility] [address] [place] [address] USAWBC (Bld) [#/Vol]8.4 10*3/uLNormal3.8-11.6The [facility] Physician GroupComment on above:Performed By: #### BMP, CBC ####[address] USAWhite Blood Count8.4 [CFU]/mLNormal3.8-11.6The [facility] Physician GroupComment on above:Performed By: #### BMP, CBC ####[place] [address] USABasic Metabolic Panelon 62-40-3870Zreve gap [Moles/Vol]10.0 mmol/LNormal6.0-15.0The [facility] Physician GroupComment on above:Performed By: #### BMP, CBC #### [facility] [address] [place] [address] USACalcium [Mass/Vol]8.7 mg/dLNormal8.6-10.3The [facility] Physician GroupComment on above:Performed By: #### BMP, CBC #### [facility] [address] [place] [address] USAChloride [Moles/Vol]102 mmol/BStxgql42-726Geh [facility] Physician GroupComment on above:Performed By: #### BMP, CBC #### [facility] [address] [place] [address] USACO2 [Moles/Vol]27.0 mmol/UUfacig60.0-31.0The [facility] Physician GroupComment on above:Performed By: #### BMP, CBC #### [facility] [address] [place] [address] USACreatinine [Mass/Vol]0.61 mg/dLNormal0.60-1.20The [facility] Physician GroupComment on above:Performed By: #### BMP, CBC #### [place] [address] USACreatinine Clr Calc Zgqsqtgd82.08NormalThe [facility] Physician GroupComment on above:Result Comment: PERFORMED BY: [place] [address] PATHOLOGIST SLATE SPLITTER BRENT LOPEZ M.D.Performed By: #### BMP, CBC #### [place] [address] USAGFR/1.73 sq M.predicted MDRD (S/P/Bld) [Vol rate/Area] mL/min/{1.73_m2}NormalThe [facility] Physician GroupComment on above:Performed By: #### BMP, CBC #### [place] [address] USAGlucose [Mass/Vol]139 mg/tMYurd58-486Exc [facility] Physician GroupComment on above:Result Comment: Random Glucose Reference Range is dependent on time and content of last meal. Glucose of more than 200 mg/dL in a nonstressed, ambulatory subject supports the diagnosis of Diabetes Mellitus. ADA recommended reference rangePerformed By: #### BMP, CBC #### [place] [address] USAPotassium [Moles/Vol]4.0 mmol/LNormal3.5-5.1The [facility] Physician GroupComment on above:Performed By: #### BMP, CBC #### [place] [address] USASodium [Moles/Vol]135 mmol/PAtt377-529Lmq [facility] Physician GroupComment on above:Performed By: #### BMP, CBC #### [place] [address] USAUrea nitrogen [Mass/Vol]12 mg/dLNormal7-25The [facility] Physician GroupComment on above:Performed By: #### BMP, CBC #### [place] [address] USAComplete Blood Count Auto Diffon 00-98-3537Pxhdhvylc (Bld) [#/Vol]0.0 10*3/uLNormal0.0-0.2The [facility] Physician GroupComment on above: Result Comment: PERFORMED BY: [place] [address] PATHOLOGIST SLATE SPLITTER BRENT LOPEZ M.D.Performed By: #### BMP, CBC #### [place] [address] USABasophils/100 WBC (Bld)0.1 %Normal.The [facility] Physician GroupComment on above:Performed By: #### BMP, CBC #### [place] [address] USAEosinophils (Bld) [#/Vol]0.0 10*3/uLNormal0.0-0.45The [facility] Physician GroupComment on above:Performed By: #### BMP, CBC #### [place] [address] USAEosinophils/100 WBC (Bld)0.0 %Normal.The [facility] Physician GroupComment on above:Performed By: #### BMP, CBC #### [place] [address] USAErythrocyte distribution width (RBC) [Ratio]15.6 %High 11.9-15.3The [facility] Physician GroupComment on above:Performed By: #### BMP, CBC #### [place] [address] USAHematocrit (Bld) [Volume fraction]32.9 %Low34.0-46.4The [facility] Physician GroupComment on above:Performed By: #### BMP, CBC #### [place] [address] USAHemoglobin (Bld) [Mass/Vol]11.0 g/dLLow11.8-15.4The [facility] Physician GroupComment on above:Performed By: #### BMP, CBC #### [address] [place] [address] USALymphocytes (Bld) [#/Vol]1.2 10*3/uLNormal1.00-4.8The [facility] Physician GroupComment on above:Performed By: #### BMP, CBC #### [place] [address] USALymphocytes/100 WBC (Bld)9.8 %Normal.The [facility] Physician GroupComment on above:Performed By: #### BMP, CBC #### [place] [address] USAMCH (RBC) [Entitic mass]28.6 dyAvoxlx92.7-34.3The [facility] Physician GroupComment on above:Performed By: #### BMP, CBC #### [place] [address] USAMCV (RBC) [Entitic vol]85.5 wIRmjivp01-676Kjh [facility] Physician GroupComment on above:Performed By: #### BMP, CBC #### [place] [address] USAMean Corpuscular HGB Conc33.4 g/tOBylvjp25.0-35.0The [facility] Physician GroupComment on above:Performed By: #### BMP, CBC #### [place] [address] USAMonocytes (Bld) [#/Vol]0.6 10*3/uLNormal0.0-0.8The [facility] Physician GroupComment on above:Performed By: #### BMP, CBC #### [place] [address] USAMonocytes/100 WBC (Bld)5.4 %Normal.The [facility] Physician GroupComment on above:Performed By: #### BMP, CBC #### [place] [address] USANeutrophils (Bld) [#/Vol]10.2 10*3/uLHigh1.8-7.7The [facility] Physician GroupComment on above:Performed By: #### BMP, CBC #### [facility] [address] [place] [address] USANeutrophils/100 WBC (Bld)84.7 %Normal.The [facility] Physician GroupComment on above:Performed By: #### BMP, CBC #### [facility] [address] [place] [address] USANRBC%0.0 /100{WBC}Normal0-0.5The [facility] Comment on above:Performed By: #### BMP, CBC #### [place] [address] USAPlatelet mean volume (Bld) [Entitic vol]7.6 fLNormal 6.3-10.7The [facility] Physician GroupComment on above:Performed By: #### BMP, CBC #### [place] [address] USAPlatelets (Bld) [#/Vol]204 10*3/ePYgmixn905-856Wqc [facility] Physician GroupComment on above:Performed By: #### BMP, CBC #### [place] [address] USARBC (Bld) [#/Vol]3.85 10*6/uLNormal3.60-5.00The [facility] Physician GroupComment on above:Performed By: #### BMP, CBC #### [place] [address] USAWBC (Bld) [#/Vol]12.0 10*3/uLHigh3.8-11.6The [facility] Physician GroupComment on above:Performed By: #### BMP, CBC #### [place] [address] USAWhite Blood Count12.0 [CFU]/mLHigh3.8-11.6The [facility] Physician GroupComment on above:Performed By: #### BMP, CBC #### [place] [address] USALon 11-19-2024L Specimen: [id number] Received: 11/19/24 Status: SHERYL Paiz Num: [id number] Spec Type: Surgical Subm Dr: Fred Hernandez MD Tissues: A Gross Only (R HIP BONE AND TISSUE) Procedures: Level 1 Gross Age/ Patient Sex Location Account Attending Physician Una Gomez 84/F 4N [id number] Fred Hernandez MD SPEC NUM: [id number] RECD: 11/19/24 STATUS: SHERYL PAIZ NUM: [id number] FABIANA: 11/19/24-[address] [facility] [address]: Fred Hernandez MD ENTERED: 11/19/24 [facility] DR: SPEC TYPE: Surgical DEPT: S ENTERED BY: [id number] RECV BY: [id number] ORDERED: Level 1 Gross ORDERED: Level 1 [...] ONLY- Microscopic Description Gross examination only. Specimen: [id number] Received: 11/19/24 Status: SHERYL Paiz Num: [id number] Spec Type: Surgical Subm Dr: Fred Hernandez MD Tissues: A Gross Only (R HIP BONE AND TISSUE) Procedures: Level 1 Gross Patient: Una Gomez [id number] (Continued) Specimen: [id number] Received: 11/19/24 (Continued) Signed (signature on file) Kwasi Colindres MD 11/20/24 1456 Specimen: [id number] Received: 11/19/24 Status: SHERYL Paiz Num: [id number] Spec Type: Surgical Subm Dr: Fred Hernandez MD Tissues: A Gross Only (R HIP BONE AND TISSUE) Procedures: Level 1 Gross Patient: Una Gomez [id number] (Continued) Specimen: [id number] Received: 11/19/24 (Continued) CPT Codes 11405 Specimen: [id number] Received: 11/19/24 Status: SHERYL Paiz Num: [id number] Spec Type: Surgical Subm Dr: Fred Hernandez MD Tissues: A Gross Only (R HIP BONE AND TISSUE) Procedures: Level 1 Gross Patient: Una Gomez [id number] (Continued) Signed (signature on file) Kwasi Colindres MD 11/20/24 1456NoNov[facility] Physician GroupXR hip RT 1Von 45-13-0541ZX hip RT 1V[facility] Main [address] [address] XRay Report Signed Patient: Una Gomez MR#: [id number] : 1940 Acct:[id number] Age/Sex: 84 / F ADM Date: 11/19/24 Loc: Room: [address] [place] [address] Type: [facility] Attending Dr: Fred Hernandez II, MD Copies [...] Webster M.D. 11/19/2024 4:36 PM Dictation Location: [facility]--16 Transcribed By: [facility] 11/19/24 163 Dictated By: Rock Webster DO 11/19/24 1635 Signed By: 11/19/24 1636[facility] Physician GroupXR low pelvis w/RT x-table hipon 66-21-0784NF low pelvis w/RT x-table hipPROMEDICA FLOWER [facility] Main [address] [address] XRay Report Signed Patient: Una Gomez MR#: [id number] : 1940 Acct:[id number] Age/Sex: 84 / F ADM Date: 11/19/24 Loc: [place] Room: Type: [facility] Attending Dr: Fred Hernandez II, MD Copies [...] Webster M.D. 11/19/2024 1:46 PM Dictation Location: [facility]-16 Transcribed By: [facility] 11/19/24 1346 Dictated By: Rock Webster DO 11/19/24 1345 Signed By: 11/19/24 1346[facility] Physician [facility] MississippiECH echo transthoracicon 92-33-3135KAO echo transthoracicPROMEDICA FLOWER [facility] Main [place] [address] [place] [address] Echocardiogram Signed Patient: Una Gomez MR#: [id number] : 1940 Acct:[id number] Age/Sex: 84 / F ADM Date: 11/12/24 Loc: Room: Type: [facility] Attending Dr: Curtis Morales MD Ordering Provider: Curtis Morales MD Date of Service: 11/12/2411/28/856 ECH/[facility] echo transthoracic: R94.31 - Abnormal [...] 0859 Signed By: Curtis Morales MD 11/12/24 1611NoAt[facility] Health [facility] Physician GroupAppearance of UrineOrdered By: Fred Hernandez on 11-01-2024 Appearance (U)ClearNormalClearMercy Health St. Anne HospitalComment on above: Order Comment: Name Collection Type:: Clean-Voided MidstreamPerformed By: #### UA ####[facility] [address] Basic Metabolic Panelon 19-35-9289HIX/1.73 sq M.predicted MDRD (S/P/Bld) [Vol rate/Area]mL/min/{1.73_m2}NormalThe [facility] Physician GroupComment on above: Performed By: #### FRUC #### [facility] , #### BMP, CBC #### [facility] [address] [place] [address] USABasophils [#/volume] in Blood by Automated countOrdered By: Fred Hernandez on 19-02-9397Ztiremabl (Bld) [#/Vol]0.0 10*3/uLNormal0.0-0.[address] Anne HospitalComment on above:Result Comment: PERFORMED BY: [facility] [address] [facility] [place] [address] PATHOLOGIST SLATE SPLITTER BRENT LOPEZ M.D.Performed By: #### FRUC #### [facility] , #### BMP, CBC #### [facility] [address] [place] [id number] USABasophils/100 leukocytes in Blood by Automated count Ordered By: Fred Hernandez on 20-20-6440Vitergqnw/100 WBC (Bld)0.5 %Normal. [facility]. Anne HospitalComment on above:Performed By: #### FRUC #### [facility] , #### BMP, CBC #### [facility] [address] [place] [address] USABilirubin Test strip Ql (U)Ordered By: Fred Hernandez on 78-86-1186Mghzqskox Ql (U)NegativeNegativeMercy Health St. Anne Hospital Calcium [Mass/volume] in Serum or PlasmaOrdered By: Fred Hernandez on 19-17-5409Ywkjmif [Mass/Vol]9.7 mg/dLNormal8.6-10.3FCleveland Clinic Children's Hospital for RehabilitationComment on above:Result Comment: PERFORMED BY: [place] [address] PATHOLOGIST SLATE SPLITTER BRENT LOPEZ M.D.Performed By: #### FRUC #### [facility] , #### BMP, CBC #### [place] [address] USACarbon dioxide, total [Moles/volume] in Serum or Plasma Ordered By: Fred Hernandez on 74-29-6106KD5 [Moles/Vol]30.2 mmol/LNormal 21.0-31.0[facility] Health St. Anne HospitalComment on above:Performed By: #### FRUC #### [facility] , #### BMP, CBC #### [place] [address] USAChloride [Moles/volume] in Serum or PlasmaOrdered By: Fred Hernandez on 00-04-6609Rarvvpmk [Moles/Vol]101 mmol/UOnpxjk70-182GfnnzqqjdMercy Health St. Anne HospitalComment on above:Performed By: #### FRUC #### [facility] , #### BMP, CBC #### [facility] [address] [place] [address] USAColor of Urine by AutoOrdered By: Fred Hernandez on 76-23-2909Tjlhn (U)Light-yellowNormalYellowMercy Health St. Anne Hospital Comment on above:Order Comment: Name Collection Type:: Clean-Voided Midstream Performed By: #### UA ####[facility] [address] [place] [address] USAComplete Blood Count Auto Diffon 29-58-2065Rkfd Corpuscular HGB Conc33.7 g/sHQjlaqv81.0-35.0The [facility] Physician [facility] MississippiComment on above:Performed By: #### FRUC #### [facility] , #### BMP, CBC #### [facility] [address] [place] [address] USANRBC%0.1 /100{WBC}Normal0-0.5The [facility] Physician [facility] Comment on above:Performed By: #### FRUC #### [facility] , #### BMP, CBC #### [place] [address] USAWhite Blood Count6.1 [CFU]/mLNormal3.8-11.6The [facility] Summit State HospitalComment on above:Performed By: #### FRUC #### [facility] , #### BMP, CBC #### [facility] [address] [place] [address] USACreatinine [Mass/volume] in Serum or PlasmaOrdered By: Fred Hernandez on 73-42-0237Yvgnydmonr [Mass/Vol]0.63 mg/dLNormal0.60-1.[address] Anne HospitalComment on above:Performed By: #### FRUC #### [facility] , #### BMP, CBC #### [facility] [address] [place] [address] USAEosinophils [#/volume] in Blood by Automated countOrdered By: Fred Hernandez on 28-17-2514Iznpqqjnqoz (Bld) [#/Vol]0.2 10*3/uLNormal 0.0-0.45Mer[facility] Health St. Anne HospitalComment on above:Performed By: #### FRUC #### [facility] , #### BMP, CBC #### [place] [address] USAEosinophils/100 leukocytes in Blood by Automated count Ordered By: Fred Hernandez on 99-77-4904Qvkgqqulctl/100 WBC (Bld)3.9 %Normal. [facility]. Anne HospitalComment on above:Performed By: #### FRUC #### [facility] , #### BMP, CBC #### [facility] [address] [place] [address] USAErythrocyte distribution width [Ratio] by Automated count Ordered By: Fred Hernandez on 04-55-1743Mbrytfjfpev distribution width (RBC) [Ratio]16.7 %High11.9-15.3FCleveland Clinic Children's Hospital for RehabilitationComment on above: Performed By: #### FRUC #### [facility] , #### BMP, CBC #### [place] [address] USAErythrocytes [#/volume] in Blood by Automated countOrdered By: Fred Hernandez on 95-88-7881IHR (Bld) [#/Vol]4.29 10*6/uLNormal3.60-5.[address] Anne HospitalComment on above:Performed By: #### FRUC #### [facility] , #### BMP, CBC #### [place] [address] USAFructosamineon 40-89-7622Srdvzdobfvrn379 umol/LNormal0-285 The [facility] Physician GroupComment on above:Result Comment: Published reference interval for apparently healthy subjects between age 20 and 60 is 205 - 285 umol/L and in a poorly controlled diabetic population is 228 - 563 umol/L with a mean of 396 umol/L. Performed at: [facility] [id number] Track Template Maker: Fady Shoemaker PhD, Phone: [phone] PERFORMED BY: [place] [address] PATHOLOGIST SLATE SPLITTER BRENT LOPEZ M.D.Performed By: #### FRUC #### [facility] , #### BMP, CBC #### [facility] [address] [place] [id number] USAFructosamine [Moles/volume] in Serum or PlasmaOrdered By: Fred Hernandez on 56-64-3093Diylnghfiaww [Moles/Vol]222 umol/L0-285Mercy Health St. Anne HospitalComment on above:Published reference interval for apparently healthysubjects between age 20 and 60 is 205 - 285 umol/L and in apoorly controlled diabetic population is 228 - 563 umol/Lwith a mean of 396 umol/L.Performed at: [address] [id number] Director: Fady Shoemaker PhD, Phone: [phone] filtration rate [Volume Rate/Area] in Serum, Plasma or Blood by Creatinine Ordered By: Fred Hernandez on 73-94-6341Yhyouypllr filtration rate [Volume Rate/Area] in Serum, Plasma or Blood by Creatinine> 60.0 mL/MinMercy Health St. Anne HospitalGlucose [Mass/volume] in Serum or PlasmaOrdered By: Fred Hernandez on 73-90-5093Szjkivx [Mass/Vol]97 mg/jOShplod80-716LsfpcmhlzMercy Health St. Anne HospitalComment on above:ADA recommended reference rangeRandom Glucose [...] #### [facility] , #### BMP, CBC #### [facility] [address] [place] [address] USAGlucose [Mass/volume] in Urine by Test stripOrdered By: Fred Hernandez on 03-73-1419Ahhebdm Test strip (U) [Mass/Vol]Normal mg/dLNormal [facility] St. Anne HospitalHematocrit [Volume Fraction] of Blood by Automated countOrdered By: Fred Hernandez on 99-89-8651Rcdzfdhjmf (Bld) [Volume fraction]36.8 %Jdcwch59.0-46.4FCleveland Clinic Children's Hospital for RehabilitationComment on above:Performed By: #### FRUC #### [facility] , #### BMP, CBC #### [facility] [address] [place] [id number] USAHemoglobin Test strip Ql (U)Ordered By: Fred Hernandez on 99-08-9807Aaqpmecdar Ql (U)[facility] Hemoglobin [Mass/volume] in BloodOrdered By: Fred Hernandez on 11-01-2024 Hemoglobin (Bld) [Mass/Vol]12.4 g/rQYpoced81.8-15.4FCleveland Clinic Children's Hospital for RehabilitationComment on above:Performed By: #### FRUC #### [facility] , #### BMP, CBC #### [facility] [address] [place] [id number] USAKetones [Presence] in Urine by Test stripOrdered By: Fred Hernandez on 59-77-4585Eiwtxnr Ql (U)NegativeSelect Medical Specialty Hospital - ColumbusComment on above:Order Comment: Name Collection Type:: Clean-Voided MidstreamPerformed By: #### UA ####[facility] [place] [address] USALeukocyte esterase [Presence] in Urine by Test stripOrdered By: Fred Hernandez on 19-60-5342Qhltyvcag esterase Test strip Ql (U)NegativeSelect Medical Specialty Hospital - ColumbusComment on above:Order Comment: Name Collection Type:: Clean-Voided MidstreamPerformed By: #### UA ####[place] [id number] USALeukocytes [#/volume] corrected for nucleated erythrocytes in Blood by Automated counOrdered By: Fred Hernandez on 01-77-9840AXV corrected for nucl RBC Auto (Bld) [#/Vol]6.1 10*3/uL3.8-11.6FCleveland Clinic Children's Hospital for Rehabilitation Leukocytes [#/volume] in Blood by Automated countOrdered By: Fred Hernandez on 03-77-7947JHE (Bld) [#/Vol]6.1 10*3/uLNormal3.8-11.6FCleveland Clinic Children's Hospital for RehabilitationComment on above:Performed By: #### FRUC #### [facility] , #### BMP, CBC #### [facility] [address] [id number] USALymphocytes [#/volume] in Blood by Automated countOrdered By: Fred Hernandez on 77-12-1595Qsccajshrom (Bld) [#/Vol]1.9 10*3/uLNormal 1.00-4.8[facility] St. Anne HospitalComment on above:Performed By: #### FRUC #### [facility] , #### BMP, CBC #### [facility] [address] [id number] USALymphocytes/100 leukocytes in Blood by Automated count Ordered By: Fred Hernandez on 28-89-2553Hysnloejynq/100 WBC (Bld)30.4 %Normal. [facility] St. Anne HospitalComment on above:Performed By: #### FRUC #### [facility] , #### BMP, CBC #### [facility] [address] [id number] [facility] [Entitic mass] by Automated countOrdered By: Fred Hernandez on 02-26-5947PFQ (RBC) [Entitic mass]29.0 jqUmgylw53.7-34.3FCleveland Clinic Children's Hospital for RehabilitationComment on above:Performed By: #### FRUC #### [facility] , #### BMP, CBC #### [facility] [address] [id number] USAMCHC Auto (RBC) [Mass/Vol]Ordered By: Fred Hernandez on 12-56-8207HFFF (RBC) [Mass/Vol]33.7 g/dL32.0-35.0[facility] St. Anne HospitalMCV [Entitic volume] by Automated countOrdered By: Fred Hernandez on 16-04-2720ZFT (RBC) [Entitic vol]85.8 dOZaosqz44-789DygqffzvjMercy Health St. Anne HospitalComment on above:Performed By: #### FRUC #### [facility] , #### BMP, CBC #### [facility] [address] [place] [address] USAMonocytes [#/volume] in Blood by Automated countOrdered By: Fred Hernandez on 70-91-5941Ngatqmuyd (Bld) [#/Vol]0.7 10*3/uLNormal0.0-0.[address] Anne HospitalComment on above:Performed By: #### FRUC #### [facility] , #### BMP, CBC #### [facility] [address] [place], [place] [address] USAMonocytes/100 leukocytes in Blood by Automated count Ordered By: Fred Hernandez on 86-41-4639Vwrxhzvtd/100 WBC (Bld)10.9 %Normal. [facility]. Anne HospitalComment on above:Performed By: #### FRUC #### [facility] , #### BMP, CBC #### [facility] [address] [place] [address] USANeutrophils [#/volume] in Blood by Automated countOrdered By: Fred Hernandez on 29-84-4554Oxkasefaevi (Bld) [#/Vol]3.3 10*3/uLNormal 1.8-7.7FCleveland Clinic Children's Hospital for RehabilitationComment on above:Performed By: #### FRUC #### [facility] , #### BMP, CBC #### [facility] [address] [id number] USANeutrophils/100 leukocytes in Blood by Automated count Ordered By: Fred Hernandez on 86-12-5785Lmzbjaclfgg/100 WBC (Bld)54.3 %Normal. [facility]. Anne HospitalComment on above:Performed By: #### FRUC #### [facility] , #### BMP, CBC #### [facility] [address] [place] [address] USANitrite Test strip Ql (U)Ordered By: Fred Hernandez on 71-07-3907Fpvwgif Ql (U)NegativeNegativeMercy Health St. Anne HospitalNo Panel InformationOrdered By: Fred Hernandez on 78-00-7202Rwvkkvkr Creatinine Clearance (ChemN/[facility] Memorial HospitalNucleated erythrocytes [Presence] in Blood by Automated countOrdered By: Fred Hernandez on 11-01-2024 Nucleated RBC Auto Ql (Bld)0.1 /100{WBC}0-0.5FCleveland Clinic Children's Hospital for Rehabilitation Platelet mean volume [Entitic volume] in Blood by Automated countOrdered By: Fred Hernandez on 27-81-1050Rcnozzqt mean volume (Bld) [Entitic vol]7.3 fL Normal6.3-10.7FCleveland Clinic Children's Hospital for RehabilitationComment on above:Performed By: #### FRUC #### [facility] , #### BMP, CBC #### [facility] [address] [place] [address] USAPlatelets [#/volume] in Blood by Automated countOrdered By: Fred Hernandez on 68-00-6668Sayoralee (Bld) [#/Vol]209 10*3/wMGbbnzv299-[address] Anne HospitalComment on above:Performed By: #### FRUC #### [facility] , #### BMP, CBC #### [facility] [address] [place] [address] USAPotassium [Moles/volume] in Serum or PlasmaOrdered By: Fred Hernandez on 49-13-2561Ivmyonmvu [Moles/Vol]4.3 mmol/LNormal3.5-5.[address] Anne HospitalComment on above:Performed By: #### FRUC #### [facility] , #### BMP, CBC #### [facility] [address] [place] [address] USAProtein Test strip (U) [Mass/Vol]Ordered By: Fred Hernandez on 79-67-7477Oegbrho (U) [Mass/Vol]NegativeNegativeOhioHealth Marion General Hospitalerum or plasma anion gap determinationOrdered By: Fred Hernandez on 46-20-2071Wapoq gap [Moles/Vol]10.1 mmol/LNormal6.0-15.0Mer[facility] St. Anne HospitalComment on above:Performed By: #### FRUC #### [facility] , #### BMP, CBC #### [place] [address] USASodium [Moles/volume] in Serum or PlasmaOrdered By: Fred Hernandez on 83-55-6258Rgjdwg [Moles/Vol]137 mmol/PVeoqtk325-039WkvyavnoqMercy Health St. Anne HospitalComment on above:Performed By: #### FRUC #### [facility] , #### BMP, CBC #### [facility] [address] [place] [address] USASpecific gravity Test strip (U) [Rel density]Ordered By: Fred Hernandez on 80-64-1954Afwpjcju gravity (U) [Rel density]1.0181.001-1.[address] Anne HospitalUrea nitrogen [Mass/volume] in Serum or Plasma Ordered By: Fred Hernandez on 53-92-5251Cvfv nitrogen [Mass/Vol]17 mg/dLNormal 7-[facility] St. Anne HospitalComment on above:Performed By: #### FRUC #### [facility] , #### BMP, CBC #### [place] [address] USAUrinalysison 06-62-3508Isjbyypvy,UrineNegativeNormal NegativeThe [facility] Physician GroupComment on above:Order Comment: Name Collection Type:: Clean-Voided MidstreamPerformed By: #### UA ####[address] [address] USAGlucose Ql (U)Normal NormalNormAdventHealth for Children Physician GroupComment on above:Order Comment: Name Collection Type:: Clean-Voided MidstreamPerformed By: #### UA ####[address] [address] USANitrite,UrineNegative NormalNegativeThe [facility] Physician GroupComment on above:Order Comment: Name Collection Type:: Clean-Voided MidstreamPerformed By: #### UA ####[address] [address] USAOccult Blood,Urine NegativeNormalNegativeThe [facility] Physician GroupComment on above:Order Comment: Name Collection Type:: Clean-Voided MidstreamResult Comment: PERFORMED BY: [facility] [address] [place] [place] [id number] PATHOLOGIST SLATE SPLITTER BRENT LOPEZ M.D.Performed By: #### UA ####[address] [address] USAProtein,UrineNegativeNormalNegativeBaptist Health Bethesda Hospital East Physician GroupComment on above:Order Comment: Name Collection Type:: Clean-Voided MidstreamPerformed By: #### UA ####[address] [address] USASpecificy [place],Urine1.018Normal 1.001-1.030The [facility] Physician GroupComment on above:Order Comment: Name Collection Type:: Clean-Voided MidstreamPerformed By: #### UA ####[address] [address] USAUrobilinogen,Urine NormalNormalNormAdventHealth for Children Physician GroupComment on above:Order Comment: Name Collection Type:: Clean-Voided MidstreamPerformed By: #### UA ####[address] [address] USAUrobilinogen Test strip (U) [Mass/Vol]Ordered By: Fred Hernandez on 01-71-2175Kmxyswdvyauk (U) [Mass/Vol]Normal mg/dLNormalMercy Health St. Anne HospitalpH of Urine by Test stripOrdered By: Fred Hernandez on 83-90-8707zQ (U)5.5 [pH]Normal5.0-9.[address] Anne HospitalComment on above:Order Comment: Name Collection Type:: Clean-Voided MidstreamPerformed By: #### UA ####[facility] [address] [place] [address] USAOptical coherence tomography study reporton 93-73-5715NFPJMissouri Delta Medical Center HealthcareRadiology Study observation (narrative)NOM HealthcareFollow-Upon 46-17-9195Xtmlsi-[id number] JasonUna Radha 1940 F Date Provider Department Center 10/21/2024 264-BERTHA MULTANI MP ORTHO MPORTHO No family history on file Level of Service:39286 [place] OFFICE/OUTPATIENT ESTABLISHED LOW [facility] 20 MIN Reason for Visit and Comments: Follow-up [285302] - Pt c/o right armpit pain. Pt has had for a few months. Happened when carrying groceries. Pt says oral steroids have helped in the past with this pain Pain [136] - Pt c/o right armpit pain. Pt has had for a few months. Happened when carrying groceries. Pt says oral steroids have helped in the past with this painNormalUniversMercy Health Medicine Office/Clinic Noteon 61-93-7098Qahqie Medicine Office/Clinic NoteFajewish healthcare center Medicine Office/Clinic Note Chief Complaint Acute Visit [...] charity, Topical, TID, 60 gram, Refill(s) 0, [facility]/pharmacy #[id number], 147, cm, 10/02/24 8:57:00 EDT, Height/Length [...] Contact Information Marlee Malcolm Within [address] [place] [address] [facility] (1) Additional Instructions: Rash of forearms Patient Education Rash, Adult, Dfwy-gf-Agjv Problem List/Past Medical History Ongoing Asthma BMI [...] mg= 1 tab(s), Ora (more content not included)...Bl[facility]ard Valley Health SystemComment on above:Result Comment: Electronically Signed By: LEA WALLACE CNP\Date and Time Signed: 10/02/24 12:12 EDTLipid Panelon 63-34-9410Fnyijsbxlqc [Mass/Vol]112 mg/dLLow 120-200K[facility] Soin Medical CenterComment on above:Performed By: #### [id number] ####[facility] Xcjjgnytub[address] [place] [address] Cholesterol in HDL [Mass/Vol]40 mg/dLInvalid Interpretation CodeKettering Health – Soin Medical CenterComment on above:Result Comment: '>= 60 LOW RISK' '<= 40 HIGH RISK'Performed By: #### [id number] ####[facility] [address]hlbqmu[address], [place] [address]Qqnmxqytezp in LDL [Mass/Vol]58 mg/dL Normal<=129K[facility] So[facility] Medical CenterComment on above:Performed By: #### [id number] ####[facility] Pxhtnujjtb[address], [place] [address]Qoqecreczix in VLDL [Mass/Vol]33 mg/dLNormal7-40[facility] Comment on above:Performed By: #### [id number] ####[facility] K[address]xzat[address], [place] [address]Xonwvnmrlaxd [Mass/Vol]163 mg/dLHigh <=149K[facility] So[facility] Medical CenterComment on above:Performed By: #### [id number] ####[facility] Wowwjrejzx[address] [place] [address] Ambulatory Visit Summaryon 83-64-4300Xejzvzbfsg Visit SummaryAmbulatory Visit Summary UNA GOMEZ :1940 [...] Appointments Monday 8:40 AM EDT With: Where: [address] [address]- Monday 1:40 PM EST With: Marlee [place] Where: [address] [address]- Monday2025 11:00 AM EDT With: Where: [address] [address]- You Need to Complete the Following Lipid Panel, Blood, Routine collect, 09/09/24, Order for future visit, Lab Collect, Hypercholesterolemia, Required & Missing, Print Label By Order Location BD Bone Density DEXA, 09/09/24, Routine, Order for Future Visit, Transport Mode: Ambulatory, Reason: Post menopausal, Ovarian failure due to menopause, No, 128, pp_set_radiology_subspecialty, Not Required, [facility] Medications What How Much When Why Instructions [...] us fo (more content not included)... [facility] Medicine Office/Clinic Noteon 09-09-2024 Family Medicine Office/Clinic NoteWesson Women'[facility] Medicine Office/Clinic Note Chief Complaint Subsequent [...] of clutter to prevent tripping and/or falling. [place] Advance Directives reviewed, present at home. Encouraged [...] patient request, she will have completed at [facility] prior to next PCP visit. Mammogram: Patient [...] and report to pro (more content not included)...[facility] Valley Health SystemComment on above:Result Comment: Electronically Signed By: Marlee [place]\.br\Date and Time Signed: 09/09/24 17:53 EDT\.br\Electronically Co-Signed By: Juliana Glez\.br\Date and Time Co- Signed: 09/09/24 13:48 EDTFPG ECG *CARDIOLOGY ONLY*on 67-38-4759TTL ECG *CARDIOLOGY ONLY*[facility] [address] [place] [id number] Electrocardiograph Report Signed Patient: Una Gomez MR#: [id number] : 1940 Acct:[id number] Age/Sex: 84 / F ADM Date: 09/05/24 Loc: [facility] Room: Type: [facility] Attending Dr: Curtis Morales MD Ordering Provider: [...] previous ECGs available Confirmed by Curtis Morales ([id number]) on 09/09/2024 4:23:45 PM Referred By: Electronically Signed By: Curtis Morales Transcribed By: MUS Signed By Curtis Morales MD 09/09/[address] [place] [address] Physician GroupX-ray reportOrdered By: Rock Webster on 90-97-2631Fvdfh reportPROMEDICA FLOWER HOSPITAL Main [address] [address] XRay Report Signed Patient: Una Gomez MR#: [id number] : 1940 Acct:[id number] Age/Sex: 84 / F ADM Date: 5 Loc: ER Room: Type: [facility] ER Attending Dr: Copies to: Rosa M [...] Rock Webster DO 09/05/242043 Signed By: 09/05/242043 [facility] Anne HospitalXR shoulder RT min 2V*on 97-33-6558ZU shoulder RT min 2V*[facility] Main [place] [address] [place] [address] XRay Report Signed Patient: Una Gomez MR#: [id number] : 1940 Acct:[id number] Age/Sex: 84 / F ADM Date: 09/05/24 Loc: ER Room: Type: [facility] ER Attending Dr: Copies to: Rosa M [...] By: Rock Webster DO 09/05/242043 Signed By: 09/05/242043[facility] Physician GroupAmbulatory Visit Summaryon 40-17-6296Zhjxxspiqx Visit SummaryAmbulatory Visit Summary UNA GOMEZ :1940 [...] Follow-Up Appointments Monday 11:00 AM EDT Where: [address] [address]- Medications What How Much When Why Instructions New ergocalciferol (Vitamin D 50,000 intl units (1.25 mg) oral capsule) 1 Capsules By Mouth 2 timesa week Pre-op exam Vitamin D deficiency Refills: 3 Pickup at [facility]/pharmacy #[id number] Unchanged acetaminophen (Tylenol Extra Strength) 500 Milligram [...] TABLET BY MOUTH EVERY DAY Pharmacy Information [facility]/pharmacy #[id number]: [address] [place], [place] [phone] Allergies Augmentin (Unknown) Diflucan (Unknown) sulfa drugs [...] signed up for this yet, please contact [employer] at [phone] to get signed up today. Language Information Language assistance services are available as needed. [facility] Medicine Office/Clinic Noteon 24-18-4297Vnaiso Medicine Office/Clinic NoteWesson Women'S Hospital Medicine Office/Clinic Note Chief Complaint surgical clearance HPI Staff Patient is presenting for pre-surgical clearance [facility] Pre-testing, labs done Concerns: Refills: unsure History [...] 2x/Wk, # 24 cap(s), Refills(s) 3, Pharmacy: [facility]/pharmacy #[id number], 147, cm, 08/29/24 14:41:00 EDT, Height/Length Dosing, 57.9, kg, 08/29/24 14:41:00 EDT, Weight Dosing ECG 12 Lead Adult [facility] External Ambulatory Referral 2. Vitamin D deficiency (E55.9: Vitamin D deficiency, unspecified) vitamin D sent in Ordered: ergocalciferol, 50,000 International_Unit = 1 cap(s), Oral, 2x/Wk, # 24 cap(s), Refills(s) 3, Pharmacy: [facility]/pharmacy #[id number], 147, cm, 08/29/24 14:41:00 EDT, Height/Length Dosing, 57.9, kg, 08/29/24 14:41:00 EDT, Weight Dosing [facility] External Ambulatory Referral 3. Left bundle branch block (I44.7: Left bundle-branch block, unspecified) PT WILL BE REFERRED TO [facility] FOR CARDIAC CLEARANCE FOR SURGERY Ordered: [facility] External Ambulatory Referral 4. Left atrial enlargement (I51.7: Cardiomegaly) ABNORMAL EKG IN OFFICE Ordered: [facility] External Ambulatory Referral 5. BMI 26.0-26.9,adult (Z68.26: [...] 50,000 intl units (1.25 mg) oral capsule, [address] International_Unit= 1 cap(s), Oral, 2x/Wk, 3 refills [...] virus vaccine, inactivated 12/14/2022 Recorded SARS-CoV-2 (COVID-19) mRNAMUL.ORD![id number] 02/10/2022 Recorded influenza virus vaccine, inactivated 12/27/2021 Recorded SARS-CoV-2 (COVID-19) mRNA-1273 vaccine 03/17/2021 Recorded 2022-07-04: TPV80 influenza virus vaccine, inactivated 02/10/2021 Recorded pneumococcal 23-valent vaccine 09/11/2020 Recorded SARS-CoV-2 (COVID-19) mRNA-1273 vaccine 05/05/2020 Recorded SARS-CoV-2 (COVID-19) mRNA-1273 (more content not included)...[facility] SystemComment on above:Result Comment: Electronically Signed By: Marlee [place]\.br\Date and Time Signed: 08/29/24 15:48 EDTProvider Letteron 77-65-2498Imvnijqo LetterProvider Letter [address] [place] [address] August 29, 2024 UNA GOMEZ [address] [place] [id number] : [address] Hernandez, The above patient has been evaluated at your request for preoperative clearance. After assessment of available pertinent labs and diagnostic tests, I feel this patient is medicallyoptimized for surgery. Final discretion of whether the patient is cleared for surgery remains up tothe surgeon/anesthesiologist. Thank you, Marlee Malcolm, [facility] SouthA1C with Estimated Average Gluon 20-77-7041Ttykoer [Mass/Vol]103 mg/dLNoAtrium Health University City Physician Group Comment on above:Result Comment: PERFORMED BY: [facility] [address] [place] [address] PATHOLOGIST SLATE SPLITTER BRENT LOPEZ M.D.Performed By: #### MRSA - MSSA PCR, HGB, [id number], ALB, A1C WT eA ####[facility] [address]#### NICOTINE ####[facility] ,Albumin Levelon 75-66-6209Qgckdml [Mass/Vol]4.3 g/dLNormal3.5-5.7The [facility] Physician GroupComment on above: Performed By: #### MRSA - MSSA PCR, HGB, [id number], ALB, A1C WT eA #### [facility] [address] #### NICOTINE #### [facility] ,Albumin [Mass/volume] in Serum or Plasma by Bromocresol green (BCG) dye binding methoOrdered By: Fred Hernandez on 55-86-8792Wxtliip BCG dye [Mass/Vol]4.3 g/dL3.5-5.7FCleveland Clinic Children's Hospital for RehabilitationBlood estimated average glucose determination by estimation from glycated hemoglobinOrdered By: Fred Hernandez on 54-62-4247Hxwiddl glucose Estimated from glycated hemoglobin (Bld) [Mass/Vol] [address] mg/dLMercy Health [address]. Anne HospitalCotinine [Mass/volume] in Serum or PlasmaOrdered By: Fred Hernandez on 66-20-1992Ifpykuuk [Mass/Vol]<1.0 ng/mL. [facility]. Anne HospitalComment on above:This test was developed and its performance characteristicsdetermined by [employer]. It has not been cleared orapproved by the Food and Drug Administration.Cotinine levels greater than 20.0 are consistent with theuse of tobacco or tobacco cessation products.Performed at: [facility] [place], [place] [id number] Director: Kayleigh Lawrence MD, Phone: [phone] A1c/Hemoglobin.total in BloodOrdered By: Fred Hernandez on 95-35-8101QqJ1v (Bld) [Mass fraction]5.2 %Normal4.3-5.6FCleveland Clinic Children's Hospital for RehabilitationComment on above:Increased risk for diabetes: 5.7 - 6.4diabetes: >6.4glycemic control for adults with diabetes: <7.0Result Comment: Increased risk for diabetes: 5.7 - 6.4 diabetes: >6.4 glycemic control for adults with diabetes: <7.0Performed By: #### MRSA - MSSA PCR, HGB, [id number], ALB, A1C WTH eA ####[facility]#### NICOTINE ####[facility] ,Hemoglobin [Mass/volume] in BloodOrdered By: Fred Hernandez on 52-66-6576Rvnwickcaq (Bld) [Mass/Vol]13.1 g/jCBnzaou81.8-15.4FCleveland Clinic Children's Hospital for RehabilitationComment on above:Result Comment: PERFORMED BY: [facility] [address] [place] [address] PATHOLOGIST SLATE SPLITTER BRENT LOPEZ M.D.Performed By: #### MRSA - MSSA PCR, HGB, [id number], ALB, A1C WTH eA #### [facility] [address] #### NICOTINE #### [facility] ,MRSA - MSSA Nasal PCRon [id number] - MSSA Nasal PCRMRSA Result MRSA Negative MSSA Result MSSA Negative Real-time PCR Test performed by real-time PCR Reference Range Reference Range for all targets = Neg / Not Detected Reference Note 20 Reference Note 26 PERFORMED BY: [facility] [address] [place] [address] PATHOLOGIST SLATE SPLITTER BRENT LOPEZ M.D.NormalBaptist Health Bethesda Hospital East Physician GroupComment on above: Performed By: #### MRSA - MSSA PCR, HGB, [id number], ALB, A1C WTH eA ####[address]#### NICOTINE ####[facility] ,Nicotine [Mass/volume] in Serum or PlasmaOrdered By: Fred Hernandez on 43-64-6021Vufpklho [Mass/Vol]<1.0 ng/mL.[facility] St. Anne HospitalComment on above:This test was developed and its performance characteristicsdetermined by [facility]. It has not been cleared orapproved by the Food and Drug Administration.Nicotine levels greater than 2.0 are consistent with theuse of tobacco or tobacco cessation products.Nicotine/Cotinine Bloodon 37-66-3799Eklvjvoi, Blood<1.0Normal.The [facility] Physician GroupComment on above:Result Comment: This test was developed and its performance characteristics determined by [facility]. It has not been cleared or approved by the Food and Drug Administration. Cotinine levels greater than 20.0 are consistent with the use of tobacco or tobacco cessation products. Performed at: [facility] Lab[address] [id number] Track Template Maker: Kayleigh Lawrence MD, Phone: [phone] PERFORMED BY: [facility] [address] [id number] PATHOLOGIST SLATE SPLITTER BRENT LOPEZ M.D.Performed By: #### MRSA - MSSA PCR, HGB, [id number], ALB, A1C WTH eA ####[place] [address] [place]#### NICOTINE ####[facility] ,Nicotine, Blood<1.0Normal.The [facility] Physician GroupComment on above:Result Comment: This test was developed and its performance characteristics determined by [facility]. It has not been cleared or approved by the Food and Drug Administration. Nicotine levels greater than 2.0 are consistent with the use of tobacco or tobacco cessation products.Performed By: #### MRSA - MSSA PCR, HGB, [id number], ALB, A1C WTH eA ####[facility] [address]#### NICOTINE ####[facility] ,No Panel InformationOrdered By: Fred Hernandez on 55-67-4913Xocqs Screen MRSA/MSSA [facility] Anne HospitalVitamin D 25 Hydroxy Totalon 06-24-8977Wczcren D 25 Hydroxy Total20.1 ng/bZSgw79-327Kbl [facility] Physician GroupComment on above:Result Comment: VITAMIN D STATUS 25(OH)VITAMIN D RANGE (ng/mL) Deficient <20 Insufficient 20 to <30 Sufficient 30 to 100 Reference: Wade IZQUIERDO,Divya MITCHELL, [place] VIDES, et al. Evaluation,treatment, and prevention of vitamin D deficiency; an Endocrine Society clinical practice guideline. JCEM. 2010; 96(7):1911-30. PERFORMED BY: [facility] [address] [place] [address] PATHOLOGIST SLATE SPLITTER BRENT LOPEZ M.D.Performed By: #### MRSA - MSSA PCR, HGB, [id number], ALB, A1C WTH eA #### [facility] [address] #### NICOTINE #### [facility] ,Vitamin D+Metabolites [Mass/volume] in Serum or PlasmaOrdered By: Fred Hernandez on 72-80-1674Psmbpnt D+Metabolites [Mass/Vol]20.1 ng/hTPif12-[address] Anne HospitalComment on above:VITAMIN D STATUS 25(OH)VITAMIN D RANGE (ng/mL) Deficient <20 Insufficient 20 to <53Pjpllcunqa37 to 100Reference: Eduardo Grantkley [place], [place] VIDES, et al. Evaluation,treatment, and prevention of vitamin D deficiency; an Endocrine Society clinical practice guideline. JCEM. 2010; 96(7):1911-30.Ambulatory Visit Summaryon 31-50-3671Rubqtdxtdy Visit SummaryAmbulatory Visit Summary UNA GOMEZ :1940 [...] Follow-Up Appointments Monday 11:00 AM EDT Where: [place] [id number]- Medications What How Much When Instructions Unchanged [...] Mouth At bedtime Duration: 90Days Pickup at [facility]/pharmacy #6177 Unchanged montelukast (montelukast 10 mg Tab) See instructions TAKE 1 TABLET BY MOUTH EVERY DAY Unchanged spironolactone (spironolactone 25 mg Tab) See instructions TAKE 1 TABLET BY MOUTH EVERY DAY Pharmacy Information [facility]/pharmacy #[id number]: [address], [place] [phone] Allergies Augmentin (Unknown) Diflucan (Unknown) sulfa drugs [...] you for choosing us for your care. [facility] SystemCHEMISTRYOrdered By: SYSTEM SYSTEM on 11-71-1156Gawlkmr [Mass/Vol]4.2 g/dLNormal3.3 - 5.0 gm/dLRemisol Chem Albumin/Globulin [Mass ratio]1.8 {ratio}Normal1.1 - 2.2Remisol ChemALP [Catalytic activity/Vol]86 [iU]/tXrsfgt49 - 98 Int._Unit/LRemisol ChemALT No additional P-5'-P [Catalytic activity/Vol]17 [iU]/dNormal6 - 46 Int._Unit/L Remisol ChemAnion gap [Moles/Vol]10 mmol/LNormal6 - 16 mEq/LRemisol ChemAST [Catalytic activity/Vol]21 [iU]/dNormal5 - 43 Int._Unit/LRemisol ChemBilirubin [Mass/Vol]0.7 mg/dLNormal0.0 - 1.1 mg/dLRemisol ChemCalcium [Mass/Vol]9.5 mg/dL Normal8.9 - 11.1 mg/dLRemisol ChemChloride [Moles/Vol]104 mmol/HBjkelw369 - 111 mmol/LRemisol ChemCO2 [Moles/Vol]27 mmol/NQesiyl77 - 31 mmol/LRemisol Chem Creatinine [Mass/Vol]0.6 mg/dLNormal0.5 - 1.3 mg/dLRemisol ChemGFR/1.73 sq M.predicted MDRD (S/P/Bld) [Vol rate/Area]87 mL/min/1.73 k1Wjrfgy>=59mL/min/1.73 j1Tkbzvnb ChemGlobulin (S) [Mass/Vol]2.4 g/dLNormal1.4 - 4.0 gm/dLRemisol Chem Glucose [Mass/Vol]124 mg/uJDqrqsc16 - 199 mg/dLRemisol ChemPotassium [Moles/Vol] 4.2 mmol/LNormal3.5 - 5.3 mmol/LRemisol ChemProtein [Mass/Vol]6.6 g/dLNormal6.0 - 7.8 gm/dLRemisol ChemSodium [Moles/Vol]137 mmol/XPecmnx718 - 145 mmol/LRemisol ChemTSH Qn1.36 m[IU]/LNormal0.34 - 5.60 mcIU/mLRemisol ChemUrea nitrogen [Mass/Vol]13 mg/dLNormal5 - 21 mg/dLRemisol ChemUrea nitrogen/Creatinine [Mass ratio]22 mg/rpDqag28 - 20Remisol ChemCMPon 33-45-9791Seblypn [Mass/Vol]4.2 g/dL Normal3.3-5.0[facility] CenterComment on above:Performed By: #### [id number] #### [facility] Laboratory [address], [place] [address]Yqfkxee/Globulin [Mass ratio]1.8 {ratio}Normal1.1-2.2FSelect Medical Specialty Hospital - YoungstownComment on above:Performed By: #### [id number] #### [facility] Laboratory [address], [place] [address]Qwo Phos86 Int._Unit/FWxhejw35-19SnontyKettering Health – [facility] Center Comment on above:Performed By: #### [id number] #### [facility] Laboratory [address], [place] [address]PWP39 Int._Unit/LNormal6-46[facility] CenterComment on above:Performed By: #### [id number] #### [facility] Laboratory [address], [place] [address]Acbzr gap [Moles/Vol]10 mmol/LNormal6-16[facility] CenterComment on above:Performed By: #### [id number] #### [facility] Laboratory [address], [place] [address]SSI90 Int._Unit/LNormal5-43[facility] CenterComment on above:Performed By: #### [id number] #### [facility] [address], [place] [address]Args Total0.7 mg/dLNormal0.0-1.1FSelect Medical Specialty Hospital - Youngstown Comment on above:Performed By: #### [id number] #### [facility] Laboratory [address], [place] [address]CGV/Creat Ratio22 No YmepqPhit57-23AvrpymKettering Health – [facility]in Medical Center Comment on above:Performed By: #### [id number] #### [facility] Laboratory [address], [place] [address]Clxcahh [Mass/Vol]9.5 mg/dLNormal8.9-11.1FSelect Medical Specialty Hospital - YoungstownComment on above:Performed By: #### [id number] #### [facility] Laboratory [address], [place] [address]Voidorhm [Moles/Vol]104 mmol/JYqzuyi244-671QivuhrKettering Health – Soin Medical CenterComment on above:Performed By: #### [id number] #### [facility] Laboratory [address], [place] [address]PX1 [Moles/Vol]27 mmol/QSpwvvh61-16TpgftlKettering Health – Soin Medical Center Comment on above:Performed By: #### [id number] #### [facility] Laboratory [address], [place] [address]Agvsmutfdw [Mass/Vol]0.6 mg/dLNormal0.5-1.3FSelect Medical Specialty Hospital - YoungstownComment on above:Performed By: #### [id number] #### [facility] Laboratory [address], [place] [address]Eqkujyey (S) [Mass/Vol]2.4 g/dLNormal1.4-4.0[facility] CenterComment on above:Performed By: #### [id number] #### [facility] Laboratory [address], [place] [address]Rncweud [Mass/Vol]124 mg/lBMvfgjm67-300LaafbaKettering Health – Soin Medical CenterComment on above:Performed By: #### [id number] #### [facility] Laboratory [address], [place] [address]Ltnpvxudg [Moles/Vol]4.2 mmol/LNormal3.5-5.3FSelect Medical Specialty Hospital - YoungstownComment on above:Performed By: #### [id number] #### [facility] Laboratory [address], [place] [address]Zgtpijh [Mass/Vol]6.6 g/dLNormal6.0-7.8[facility] CenterComment on above:Performed By: #### [id number] #### [facility] Laboratory [address], [place] [address]Ytkdxg [Moles/Vol]137 mmol/OXgmthw838-005YmcozmKettering Health – Soin Medical CenterComment on above:Performed By: #### [id number] #### [facility] [address], [place] [address]Axsm nitrogen [Mass/Vol]13 mg/dLNormal5-21[facility] Medical CenterComment on above:Performed By: #### [id number] #### [facility] Laboratory [address], [place] [address]Uuykrs Medicine Office/Clinic Noteon 37-44-0355Xgusoh Medicine Office/Clinic NoteWesson Women'S Hospital Medicine Office/Clinic Note Chief Complaint The patient presents with difficulty walking due to arthritis and hip pain. HPI Staff Una Eugenie) is an 84 year old female presenting for 6month med f/u, htn, thyroid As per [facility]- 02/13/24- lab recheck today Patient is here [...] Cholecystectomy, Shoulder replace (more content not included)... NormalKettering Health – Soin Medical CenterComment on above:Result Comment: Electronically Signed By: Francisco BELTRAN, Yaniv Sanabria.br\Date and Time Signed: 08/20/24 11:48 EDTTSH With T4fr Reflexon 37-08-8941KGH Qn1.36 m[IU]/LNormal0.34-5.60[facility] CenterComment on above:Performed By: #### [id number] #### [facility] Laboratory [address], [place] [address]yUCZve 46-43-6085zTOX33 mL/min/1.73 b9Gdwwkd>=59[facility] Medical CenterComment on above:Performed By: #### [id number] #### [facility] Laboratory [address], [place] [address]Algdtd Medicine Office/Clinic Noteon 25-98-4401Zpccpa Medicine Office/Clinic NoteFajewish healthcare center Medicine Office/Clinic Note [facility] Staff Una is an 84 year [...] day(s), # 14 tab(s), Refills(s) 0, Pharmacy: [facility]/pharmacy #[id number], 147, cm, 08/01/24 14:06:00 EDT, Height/Length [...] virus vaccine, inactivated 12/14/2022 Recorded SARS-CoV-2 (COVID-19) mRNAMUL.ORD![id number] 02/10/2022 Recorded influenza virus vaccine, inactivated 12/27/2021 [...] vaccine, inactivated 03/18/2015 Recorded influenza, whole 01/17/2005 [facility]Comment [facility]:Result Comment: Electronically Signed By: Francisco BELTRAN, Yaniv Sanabria.br\Date and Time Signed: 08/01/24 14:24 EDTOffice Visiton 74-18-8293Inmlnz-up [id number] Una Gomez 1940 F Date Provider Department Center 07/24/2024 425-CRISSY SCHULER MP [facility] Medical Pavi No family history on file Level of Service:70121 [place] OFFICE/OUTPATIENT NEW LOW MDM 30 MINUTES (GC) Reason for Visit and Comments: Hip Pain [794207] - Right Leg Pain [289433] - RightNormalUniversity of Memorial Hermann Southwest HospitalOptical coherence tomography study reporton 38-91-1210WRTLNovant Health Forsy[facility] Medical Center Radiology Study observation (narrative)NOMS HealthcareAmbulatory Visit Summaryon 90-96-9686Xkkjfdefoh Visit SummaryAmbulatory Visit Summary UNA GOMEZ :1940 [...] PM EDT With: Yaniv Singh MD Where: [address] [address]- Monday 11:00 AM EDT With: Where: [address] [address]- Medications What How Much When [...] you for choosing us for your care. [facility] Medicine Office/Clinic Noteon 37-04-1355Wmyilp Medicine Office/Clinic NoteWesson Women'S Hospital Medicine Office/Clinic Note HPI Staff Una [...] day(s), # 6 tab(s), Refills(s) 0, Pharmacy: [facility]/pharmacy #[id number], 147, cm, 05/20/24 10:52:00 EDT, [...] day(s), # 21 tab(s), Refills(s) 0, Pharmacy: [facility]/pharmacy #[id number], 147, cm, 05/20/24 10:52:00 EDT, Height/Length Dosing, 58.5, kg, 05/20/24 10:52:00 EDT, Weight Dosing 2. Cough, (R05.9: Cough, unspecified)Cough covid and flu both negative Ordered: azithromycin, = 1 packet(s), Oral, As Directed, as directed on package labeling, X 5 day(s), # 6 tab(s), Refills(s) 0, Pharmacy: [facility]/pharmacy #[id number], 147, cm, 05/20/24 10:52:00 EDT, Height/Length Dosing, 58.5, kg, 05/20/24 10:52:00 EDT, Weight Dosing brompheniramine/dextromethorphan/PSE, 5 mL, Oral, QID for cough and congestion, 200 mL, Refill(s) 0, [facility]/pharmacy #[id number], 147, cm, 05/20/24 10:52:00 EDT, Height/Length Dosing, 58.5, kg, 05/20/24 10:52:00 EDT, Weight Dosing methylPREDNISolone, = 1 packet(s), Oral, As Directed, as directed on package labeling, X 6 day(s), # 21 tab(s), Refills(s) 0, Pharmacy: [facility]/pharmacy #[id number], 147, cm, 05/20/24 10:52:00 EDT, Height/Length Dosing, 58.5, kg, 05/20/24 10:52:00 EDT, Weight Dosing Influenza Type A&B POC 91801 Rapid COVID POC 77290 3. BMI 27.0-27.9,adult (Z68.27: Body mass index [BMI] 27.0-27.9, adult) BMI education given Ordered: azithromycin, = 1 packet(s), Oral, As Directed, as directed on package labeling, X 5 day(s), # 6 tab(s), Refills(s) 0, Pharmacy: [facility]/pharmacy #[id number], 147, cm, 05/20/24 10:52:00 EDT, Height/Length Dosing, 58.5, kg, 05/20/24 10:52:00 EDT, Weight Dosing brompheniramine/dextromethorphan/PSE, 5 mL, Oral, QID for cough and congestion, 200 mL, Refill(s) 0, [facility]/pharmacy #[id number], 147, cm, 05/20/24 10:52:00 EDT, Height/Length Dosing, 58.5, kg, 05/20/24 10:52:00 EDT, Weight Dosing methylPREDNISolone, = 1 packet(s), Oral, As Directed, as directed on package labeling, X 6 day(s), # 21 tab(s), Refills(s) 0, Pharmacy: [facility]/pharmacy #[id number], 147, cm, 05/20/24 10:52:00 EDT, Height/Length Dosing, 58.5, kg, 05/20/24 10:52:00 EDT, Weight Dosing 4. Non-smoker (Z78.9: Other specified health status) continue not smoking Ordered: azithromycin, = 1 packet(s), Oral, As Directed, as directed on package labeling, X 5 day(s), # 6 tab(s), Refills(s) 0, Pharmacy: [facility]/pharmacy #[id number], 147, cm, 05/20/24 10:52:00 EDT, Height/Length Dosing, 58.5, kg, 05/20/24 10:52:00 EDT, Weight Dosing brompheniramine/dextromethorphan/PSE, 5 mL, Oral, QID for cough and congestion, 200 mL, Refill(s) 0, [facility]/pharmacy #[id number], 147, cm, 05/20/24 10:52:00 EDT, Height/Length Dosing, 58.5, kg, 05/20/24 10:52:00 EDT, Weight Dosing methylPREDNISolone, = 1 packet(s), Oral, As Directed, as directed on package labeling, X 6 day(s), # 21 tab(s), Refills(s) 0, Pharmacy: [facility]/pharmacy #[id number], 147, cm, 05/20/24 10:52:00 EDT, Height/Length Dosing, 58.5, kg, 05/20/24 10:52:00 EDT, Weight Dosing Orders: levothyroxine, See Instructions, TAKE 1 TABLET BY MOUTH EVERY DAY, # 90 tab(s), Refills(s) 1, Pharmacy: [facility]/pharmacy #[id number], 147, cm, 05/20/24 10:52:00 EDT, Height/Length Dosing, 58.5, (more content not included)...[facility] SystemComment on above:Result Comment: Electronically Signed By: Marlee [place]\.br\Date and Time Signed: 05/20/24 11:06 EDTAmbulatory Visit Summary on 84-22-5519Rnhkfxpdgw Visit SummaryAmbulatory Visit Summary UNA GOMEZ :1940 [...] EDT With: Francisco BELTRAN, Yaniv Pope Where: [address] [phone]- Monday 11:00 AM EDT With: Where: [address] [address]- Medications What How Much When Instructions Unchanged [...] you for choosing us for your care. [facility] Medicine Office/Clinic Noteon 11-16-0427Jhhyus Medicine Office/Clinic NoteWesson Women'S Hospital Medicine Office/Clinic Note Chief Complaint Foot [...] regarding fitting for suitable [facility], [facility] [...] to her footwear needs, I advised contacting [facility] as soon as they resume operations, to [...] Tab, See Instructions, (more content not included)...Normal [facility] CenterComment on above:Result Comment: Electronically Signed By: Francisco BELTRAN, Yaniv Pope\.br\Date and Time Signed: 05/13/24 13:49 EDTX-ray reportOrdered By: Nory Jarrett on 38-04-1599Putad reportPROMEDICA FLOWER [facility] [address] [place] [address] XRay Report Signed Patient: Una Gomez MR#: [id number] : 1940 Acct:[id number] Age/Sex: 84 / F ADM Date: 5 Loc: [facility] Room: Type: [facility] Attending Dr: Fred Hernandez II, MD Copies [...] Nory Jarrett M.D.05/08/2024 4:04 PM Dictation Location: [place] [address] Transcribed By: NURYS 05/08/24 1604 Dictated By: Nory Jarrett MD 05/08/24 1602 Signed By: 05/08/[address] [facility] Work Phone: XR hip RT min 2V(w/wo pelvis)*on 33-20-4557UU hip RT min 2V(w/wo pelvis)*[facility] [address] [place] [address] XRay Report Signed Patient: Una Gomez MR#: [id number] : 1940 Acct:[id number] Age/Sex: 84 / F ADM Date: 05/08/24 Loc: [facility] Room: Type: [facility] Attending Dr: Fred Hernandez II, MD Copies [...] Nory Jarrett M.D.05/08/2024 4:04 PM Dictation Location: [place] [address] Transcribed By: [facility] 05/08/24 1604 Dictated By: Nory Jarrett MD 05/08/24 1602 Signed By: 05/08/24 1604[facility] Phys[facility] GroupFajewish healthcare center Medicine Office/Clinic Noteon 60-50-8478Erjvoi Medicine Office/Clinic NoteFami Medicine Office/Clinic Note Chief [...] home and fear of being dizzy. Ordered: [facility] External Ambulatory Referral 2. BMI 27.0-27.9,adult (Z68.27: Body mass index [BMI] 27.0-27.9, adult) Monitor weight and provide guidance on maintaining a healthy BMI through balanced diet and exercise, as discussed with the patient. Ordered: [facility] External Ambulatory Referral 3. Overweight (BMI 25.0-29.9) (E66.3: Overweight) Reinforce healthy lifestyle modifications, including diet and physical activity, to maintain or reduce weight and improve overall health, considering the patient's age and mobility status. Ordered: [facility] External Ambulatory Referral 4. 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 Ordered: [facility] External Ambulatory Referral 5. 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 Continuation of current routine, with consideration for orthopedic assessment if functional concerns arise. Ordered: [facility] External Ambulatory Referral 6. Nonsmoker (Z78.9: Other [...] management options including Tylen (more content not included)...[facility] SystemComment on above:Result Comment: Electronically Signed By: Yaniv Singh MD\.br\Date and Time Signed: 04/08/24 11:14 ESTOptical coherence tomography study reporton 33-98-2551QPCJRay County Memorial Hospital HealthcareRadiology Study observation (narrative)[facility]OM[facility] HealthcareAmbulatory Visit Summaryon 28-80-3065Ssryrlhnju Visit SummaryAmbulatory Visit Summary UNA GOMEZ :1940 [...] EDT With: Francisco BELTRAN, Yaniv Pope Where: [address] [address]- Monday 11:00 AM EDT With: Where: [address] [address]- Medications What How Much When Why Instructions New methylPREDNISolone (Medrol Dosepack 4 mg Tab) 1 Packets By Mouth As Directed Primary hypertension Hypothyroidism BMI 27.0-27.9,adult Overweight Nonsmoker Osteoarthritis of hip Left sciatic nerve pain Post-poliomyelitis muscular atrophy Nasal congestion Duration: 6 Days as directed on package labeling Pickup at [facility]/pharmacy #[id number] Unchanged acetaminophen (Tylenol Extra Strength) 500 Milligram [...] TABLET BY MOUTH EVERY DAY Pharmacy Information [facility]/pharmacy #[id number]: [address] [place], [place] [phone] Allergies Augmentin (Unknown) Diflucan (Unknown) sulfa drugs [...] you for choosing us for your care. [facility] Medicine Office/Clinic Noteon 66-47-3635Mvyjwb Medicine Office/Clinic NoteWesson Women'S Hospital Medicine Office/Clinic Note HPI Staff Una [...] day(s), # 21 tab(s), Refills(s) 0, Pharmacy: [facility]/pharmacy #[id number], 147, cm, 02/13/24 10:53:00 EST, [...] day(s), # 21 tab(s), Refills(s) 0, [id number], cm, 02/13/24 10:53:00 EST, [...] day(s), # 21 tab(s), Refills(s) 0, [id number] 147, cm, 02/13/24 10:53:00 EST, [...] day(s), # 21 tab(s), Refills(s) 0, [id number] 147, cm, 02/13/24 10:53:00 EST, [...] mm Hg (Most Recent (more content not included)...[facility] SystemComment on above:Result Comment: Electronically Signed By: Yaniv Singh MD\.br\Date and Time Signed: 02/13/24 11:19 ESTAmbulatory Visit Summaryon 30-63-8689Zmaosmoiur Visit SummaryAmbulatory Visit Summary UNA GOMEZ :1940 [...] EST With: Francisco BELTRAN, Yaniv Pope Where: [address] [address]- Monday 11:00 AM EDT With: Where: [address] [address]- Medications What How Much When Why Instructions New methylPREDNISolone (Medrol Dosepack 4 mg Tab) 1 Packets By Mouth As Directed Cellulitis Left sciatic nerve pain Duration: 6 Days as directed on package labeling Pickup at [facility]/pharmacy #5093 Unchanged acetaminophen (Tylenol Extra Strength) 500 Milligram [...] Nonsmoker Pharmacy Information [facility]6177: [address] [place], [place] [phone] Allergies Augmentin (Unknown) Diflucan (Unknown) sulfa drugs [...] person's weight is (more content not included)... [facility] Medicine Office/Clinic Noteon 01-16-2024 Family [...] day(s), # 21 tab(s), Refills(s) 0, [id number], 147, cm, 01/16/24 11:11:00 EST, Height/Length [...] day(s), # 21 tab(s), Refills(s) 0, [id number], 147, cm, 01/16/24 11:11:00 EST, Height/Length [...] virus vaccine, inactivated 12/14/2022 Recorded SARS-CoV-2 (COVID-19) mRNAMUL.ORD![id number] 02/10/2022 Recorded influenza virus vaccine, inactivated 12/27/2021 Recorded SARS-CoV-2 (COVID-19) mRNA-1273 vaccine 03/17/2021 Recorded 2022-07-04: TPV80 influenza virus vaccine, inactivated 02/10/2021 Recorded pneumococcal 23-valent vaccine 09/11/2020 Recorded SARS-CoV-2 (COVID-19) mRNA-1273 vaccine 05/05/2020 Recorded SARS-CoV-2 (COVID-19) mRNA-1273 vaccine 04/07/2020 Recorded pne (more content not included)...[facility] SystemComment on above:Result Comment: Electronically Signed By: Francisco [...] tobacco concerns: No. Ye (more content not included)...[facility] SystemComment on above:Result Comment: Electronically Signed By: Francisco BELTRAN, Yaniv Sanabria.br\Date and Time Signed: 01/08/24 14:52 ESTAmbulatory Visit Summaryon 32-08-4770Sgsyglwteo Visit SummaryAmbulatory Visit Summary UNA GOMEZ :1940 [...] AM EST With: Yaniv Singh MD Where: [address] [address]- Monday 11:00 AM EDT With: Where: [address] [address]- Medications What How Much When [...] By Mouth Every 12 hours Pickup at [facility]/pharmacy #6129 Unchanged digoxin (digoxin 125 mcg (0.125 mg) [...] EVERY DAY Pharmacy Information [id number]: [address], [place] [phone] Allergies Augmentin (Unknown) Diflucan (Unknown) sulfa drugs [...] you for choosing us for your care. [facility] Medicine Office/Clinic Noteon 22-24-2115Ntcrde Medicine Office/Clinic NoteWesson Women'S Hospital Medicine Office/Clinic Note Chief Complaint Possible [...] q12hr, # 20 cap(s), Refills(s) 0, Pharmacy: [facility]/pharmacy #6177, 147, cm, 01/03/24 11:43:00 EDT, Height/Length [...] virus vaccine, inactivated 12/14/2022 Recorded SARS-CoV-2 (COVID-19) mRNAMUL.ORD!u12420 (more content not included)... [facility] SystemComment on above:Result Comment: Electronically Signed By: Marlee [place]\.br\Date and Time Signed: 01/03/24 12:21 KMQ14ad 40-97-551383Xucqrysiw dig level from 12/11/2023: FRANSISCO Blake MA Please let her know her digoxin level looks good. Thanks Patient informed.[facility] CenterCHEMISTRYOrdered By: SYSTEM SYSTEM on 88-04-7128Waixeiz Lvl0.6 ng/mLNormal0.5 - 1.9 ng/mLRemisol Chem Digoxinon 44-91-0166Fdrujwc Lvl0.6 ng/mLNormal0.5-1.9[facility] Comment on above:Performed By: #### [id number] ####[facility] [address] Drucharlotte hungerford hospitalwilC[place], [place] [address]Rsqhdi Visiton 37-08-8358Imbkbw-up [id number] BairoilUna paniagua Radha 1940 F Date Provider Department Center 11/30/2023 MELISSA DELACRUZ CARD [facility] No family history on file Level of Service:57662 LA OFFICE/OUTPATIENT ESTABLISHED LOW MDM [address] [facility] HospitalOptical coherence tomography study reporton 77-72-2788KXYJRay County Memorial Hospital HealthcareRadiology Study observation (narrative) [facility] HealthcareAmbulatory Visit Summaryon 99-38-7674Jpvwgwkwup Visit Summary Ambulatory Visit Summary UNA GOMEZ [...] EST With: Francisco BELTRAN, Yaniv Pope Where: [facility] [address] [place] [address]- \.br\ Medications\.br\ What How Much When Instructions\.br\ [...] if questions or concerns \.br\ Unchanged meclizine (kumognoub43 mg Tab) 1 Tablets By Mouth Every [...] for choosing us for your care.\.br\ \.br\[facility] Medicine Office/Clinic Noteon 14-54-6815Qyfxzz Medicine Office/Clinic NoteFamily Medicine Office/Clinic Note HPI [...] to not smoke. Orders: Lab Specimen Collect 55310 Lipid Panel Follow-up No qualifying data available [...] virus vaccine, inactivated 12/14/2022 Recorded SARS-CoV-2 (COVID-19) mRNAMUL.ORD![id number] 02/10/2022 Recorded influenza virus vaccine, inactivated 12/27/2021 Recorded SARS-CoV-2 (COVID-19) mRNA-1273 vaccine 03/17/2021 Recorded 2022-07-04: TPV80 influenza virus vaccine, inactivated 02/10/2021 Recorded pneumoco (more content not included)...[facility] SystemComment on above:Result Comment: Electronically Signed By: Francisco BELTRAN, Yaniv Sanabria.br\Date and Time Signed: 09/19/23 10:30 EDTCHEMISTRYOrdered By: SYSTEM SYSTEM on 45-99-4867Osxmgfl [Mass/Vol]4.5 g/dLNormal3.3 - 5.0 gm/dLRemisol Chem Albumin/Globulin [Mass ratio]1.6 {ratio}Normal1.1 - 2.2Remisol ChemALP [Catalytic activity/Vol]81 [iU]/jKyreqf06 - 98 Int._Unit/LRemisol ChemALT No additional P-5'-P [Catalytic activity/Vol]23 [iU]/dNormal6 - 46 Int._Unit/L Remisol ChemAnion gap [Moles/Vol]11 mmol/LNormal6 - 16 mEq/LRemisol ChemAST [Catalytic activity/Vol]25 [iU]/dNormal5 - 43 Int._Unit/LRemisol ChemBilirubin [Mass/Vol]1.4 mg/dLHigh0.0 - 1.1 mg/dLRemisol ChemCalcium [Mass/Vol]9.4 mg/dL Normal8.9 - 11.1 mg/dLRemisol ChemChloride [Moles/Vol]105 mmol/PKcrjen338 - 111 mmol/LRemisol ChemCholesterol [Mass/Vol]105 mg/zJLfw501 - 200 mg/dLRemisol Chem Cholesterol in HDL [Mass/Vol]32 mg/dLInvalid Interpretation CodeRemisol Chem Comment on above:Result Comment: '>= 60 LOW RISK' '<= 40 HIGH RISK'Cholesterol in LDL [Mass/Vol]60 mg/dLNormal<=129mg/dLRemisol ChemCholesterol in VLDL [Mass/Vol]28 mg/dLNormal7 - 40 mg/dLRemisol ChemCO2 [Moles/Vol]25 mmol/GIemihn37 - 31 mmol/LRemisol ChemCreatinine [Mass/Vol]0.7 mg/dLNormal0.5 - 1.3 mg/dLRemisol CtqpkTKI86 mL/min/1.73 p2Blsvnt>=59mL/min/1.73 e0Uuchpjm ChemGlobulin (S) [Mass/Vol]2.8 g/dLNormal1.4 - 4.0 gm/dLRemisol Chem Glucose [Mass/Vol]96 mg/fJGjtpzn21 - 199 mg/dLRemisol ChemPotassium [Moles/Vol] 4.1 mmol/LNormal3.5 - 5.3 mmol/LRemisol ChemProtein [Mass/Vol]7.3 g/dLNormal6.0 - 7.8 gm/dLRemisol ChemSodium [Moles/Vol]137 mmol/IPmruem370 - 145 mmol/LRemisol ChemTriglyceride [Mass/Vol]142 mg/dLNormal<=149mg/dLRemisol ChemTSH Qn1.34 m[IU]/LNormal0.34 - 5.60 mcIU/mLRemisol ChemUrea nitrogen [Mass/Vol]19 mg/dL Normal5 - 21 mg/dLRemisol ChemUrea nitrogen/Creatinine [Mass ratio]27 mg/mgHigh 10 - 20Remisol ChemCMPon 80-09-4356Wxxdzyx [Mass/Vol]4.5 g/dLNormal3.3-5.0JaradMedStar Good Samaritan HospitalComment on above:Performed By: #### [id number] #### [facility] [address], [place] [address]Ucholpe/Globulin (S) [Mass conc ratio]1.9Kjyelh3.1-2.2FSelect Medical Specialty Hospital - YoungstownComment on above:Performed By: #### [id number] #### [facility] [address], [place] [address]VEV [Catalytic activity/Vol]81 Int._Unit/JAfmstt52-53PdqtwpKettering Health – Soin Medical CenterComment on above:Performed By: #### [id number] #### [facility] [address], [place] [address]BDX No additional P-5'-P [Catalytic activity/Vol]23 Int._Unit/L Normal6-46[facility] Medical CenterComment on above:Performed By: #### [id number] #### [facility] [address] [place] [address]Xcwdq gap [Moles/Vol]11 mmol/LNormal6-16[facility] CenterComment on above:Performed By: #### [id number] #### [facility] [address] [place] [address]HMV [Catalytic activity/Vol]25 Int._Unit/LNormal5-43[facility] Medical CenterComment on above:Performed By: #### [id number] #### [facility] [address] [place] [address]Vovuxovzp [Mass/Vol]1.4 mg/dLHigh0.0-1.1FSelect Medical Specialty Hospital - YoungstownComment on above:Performed By: #### [id number] #### [facility] [address], [place] [address]Ijzrhcv [Mass/Vol]9.4 mg/dLNormal8.9-11.1FSelect Medical Specialty Hospital - YoungstownComment on above:Performed By: #### [id number] #### [facility] [address] [place] [address]Ckdqpqhf [Moles/Vol]105 mmol/FTwhonf575-366AmkhsjKettering Health – Soin Medical CenterComment on above:Performed By: #### [id number] #### [facility] [address], [place] [address]QO7 [Moles/Vol]25 mmol/ZDjfeww82-81GyvejyKettering Health – [facility] Medical Center Comment on above:Performed By: #### [id number] #### [facility] [address], [place] [address]Oototnzoas [Mass/Vol]0.7 mg/dLNormal0.5-1.3FSelect Medical Specialty Hospital - YoungstownComment on above:Performed By: #### [id number] #### [facility] [address], [place] [address]Xpfzfvoc (S) [Mass/Vol]2.8 g/dLNormal1.4-4.0[facility] CenterComment on above:Performed By: #### [id number] #### [facility] [address], [place] [address]Nzbnhtg [Mass/Vol]96 mg/lZSnuyrr76-039HhicvdKettering Health – Soin Medical CenterComment on above:Performed By: #### [id number] #### [facility] [address], [place] [address]Lpwbcqhlm [Moles/Vol]4.1 mmol/LNormal3.5-5.3FSelect Medical Specialty Hospital - YoungstownComment on above:Performed By: #### [id number] #### [facility] [address], [place] [address]Hslcnue [Mass/Vol]7.3 g/dLNormal6.0-7.8[facility] CenterComment on above:Performed By: #### [id number] #### [facility] [address], [place] [address]Wdlxrr [Moles/Vol]137 mmol/VVigaso745-955SqisxmKettering Health – Soin Medical CenterComment on above:Performed By: #### [id number] #### [facility] [address], [place] [address]Gnou nitrogen [Mass/Vol]19 mg/dLNormal5-21[facility] CenterComment on above:Performed By: #### [id number] #### [facility] [address], [place] [address]Mbjh nitrogen/Creatinine [Mass ratio]27 No IpapsMdpf00-90FyifqnKettering Health – Soin Medical CenterComment on above:Performed By: #### [id number] #### [facility] [address], [place] [address]Acyhu Panelon 91-50-9143Vpaqmhutxam [Mass/Vol]105 mg/dLLow 120-200[facility] Medical CenterComment on above:Performed By: #### [id number] #### [facility] [address], [place] [address]Ihysvzjgfnf in HDL [Mass/Vol]32 mg/dLInvalid Interpretation CodeKettering Health – Soin Medical CenterComment on above:Result Comment: '>= 60 LOW RISK' '<= 40 HIGH RISK'Performed By: #### [id number] #### [facility] [address], [place] [address]Anjccyzeiwy in LDL [Mass/Vol]60 mg/dLNormal<=129[facility] Medical CenterComment on above:Performed By: #### [id number] #### [facility] [address], [place] [address]Ppmeivcazhl in VLDL [Mass/Vol]28 mg/dLNormal7-40[facility] Medical CenterComment on above:Performed By: #### [id number] #### [facility] [address], [place] [address]Hvnjhhreyyaf [Mass/Vol]142 mg/dLNormal<=149[facility] Medical CenterComment on above:Performed By: #### [id number] #### [facility] [address], [place] [address]PHX With T4fr Reflexon 72-76-5326CBE Qn1.34 m[IU]/LNormal 0.34-5.60[facility] Medical CenterComment on above:Performed By: #### [id number] #### [facility] [address], [place] [address]mSIXqb 94-59-6455nGIW84 mL/min/1.73 n7Ahuzly>=59Fisher [facility] HospitalComment on above:Order Comment: Order added by Discern Expert. Performed By: #### [id number] #### [facility] [address], [place] [address]Rqywbeljzr Visit Summaryon 33-08-3091Hubogtqanv Visit Summary Ambulatory Visit Summary UNA GOMEZ [...] Appointments Monday 9:20 AM EDT With: Where: [facility] systemInvalid Interpretation [address] [place] [address]- \.br\ Monday 11:00 AM EDT \.br\ With:\.br\ Where: [facility] Medicine Office/Clinic Noteon 66-03-4438Azgnvn Medicine Office/Clinic NoteW[facility]/Clinic Note Chief Complaint Medicare [...] of clutter to prevent tripping and/or falling. [place] Advance Directives reviewed. Documents remain at home [...] PCP visit. Labs to be completed with [facility]on on a nurse visit. 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 Follow up with PCP. 3. Primary hypertension (I10: Essential (primary) hypertension) Patient taking medications daily as directed, BP not monitored at home. Patient does voice understanding with signs and symptoms to monitor for. HTN stoplight handout reviewed with importance of keeping BP <140/90 to prevent increased cardiovascular risks. DASH dietary handout reviewed with impo(more content not included)...[facility] Health SystemComment on above:Result Comment: Electronically Signed By: LEA WALLACE CNP\.br\Date and Time Signed: 09/14/23 15:23 EDT\.br\Electronically Co-Signed By: Brittney Weber LPN\.br\Date and Time Co-Signed: 09/14/23 14:34 EDTCHEMISTRYOrdered By: SYSTEM SYSTEM on 21-47-1891Lajqwkf [Mass/Vol]4.4 g/dLNormal3.3 - 5.0 gm/dLFTMC Remisol Albumin/Globulin [Mass ratio]1.6 {ratio}Normal1.1 - 2.2FT[facility] RemisolALP [Catalytic activity/Vol]77 [iU]/sWjjmsf11 - 98 Int._Unit/LFTMC RemisolALT No additional P-5'-P [Catalytic activity/Vol]20 [iU]/dNormal6 - 46 Int._Unit/LFTMC RemisolAnion gap [Moles/Vol]12 mmol/LNormal6 - 16 mEq/LFTMC RemisolAST [Catalytic activity/Vol]25 [iU]/dNormal5 - 43 Int._Unit/LFTMC RemisolBilirubin [Mass/Vol]1.1 mg/dLNormal0.0 - 1.1 mg/dLFTMC RemisolCalcium [Mass/Vol]9.4 mg/dL Normal8.9 - 11.1 mg/dLFTMC RemisolChloride [Moles/Vol]104 mmol/BNlduik175 - 111 mmol/LFTMC RemisolCholesterol [Mass/Vol]107 mg/hQUje187 - 200 mg/dLFTMC Remisol Cholesterol in HDL [Mass/Vol]30 mg/dLInvalid Interpretation CodeFTMC Remisol Cholesterol in LDL [Mass/Vol]60 mg/dLNormal<=129mg/dLFTMC RemisolCholesterol in VLDL [Mass/Vol]30 mg/dLNormal7 - 40 mg/dLFTMC RemisolCO2 [Moles/Vol]26 mmol/L Ynmgvu40 - 31 mmol/LFTMC RemisolCreatinine [Mass/Vol]0.8 mg/dLNormal0.5 - 1.3 mg/dLFTMC RemisolGFR/1.73 sq M.predicted among non-blacks MDRD (S/P/Bld) [Vol rate/Area]73 mL/min/1.73 b1Bnphpr>=59mL/min/1.73 m2FTMC Chem SGlobulin (S) [Mass/Vol]2.8 g/dLNormal1.4 - 4.0 gm/dLFTMC RemisolGlucose [Mass/Vol]96 mg/dL Zmperk49 - 199 mg/dLFTMC RemisolPotassium [Moles/Vol]4.1 mmol/LNormal3.5 - 5.3 mmol/LFTMC RemisolProtein [Mass/Vol]7.2 g/dLNormal6.0 - 7.8 gm/dLFTMC Remisol Sodium [Moles/Vol]138 mmol/VTvscph578 - 145 mmol/LFTMC RemisolTriglyceride [Mass/Vol]151 mg/dLHigh<=149mg/dLFTMC RemisolTSH Qn1.42 m[IU]/LNormal0.34 - 5.60 mcIU/mLFTMC RemisolUrea nitrogen [Mass/Vol]13 mg/dLNormal5 - 21 mg/dLFTMC RemisolUrea nitrogen/Creatinine [Mass ratio]16 mg/bgQvydul13 - 20FTMC Remisol Covid-19 PCR (CVDTBH)on 29-95-8452MATV-CoV-2 (COVID-19) RNA JESSIE+probe Ql (Unsp spec)DetectedCritically abnormalNOT DETECTEDThe Samaritan North Health CenterComment on above:Result Comment: This test is not yet approved or cleared by the [place] FDA. When there are no FDA-approved or cleared tests available, and other criteria are met, FDA can make tests available under an emergency access mechanism called an Emergency Use Authorization (EUA). The EUA for this test is supported by the University Registrar of Health and Human Service's declaration that [...] longer be used).Performed By: #### CVDTBH #### [facility] [address] [address] [address] Galindo ChangECHOCARDIO M/2D COMPLETEon 91-75-1933EFJUXNWHKN M/2D COMPLETE Patient: UNA GOMEZ Exam Date: 07/19/2021 : 1940 Gender:F Ordering : DR AMAURY MONTERROSO . Admission #: [id number] Family : Order #: [id number] CLICK HERE TO VIEW EXAM ECHOCARDIOGRAM REPORT [...] Area(A2C): 14.80 cm2 Left Atrium Systolic Volume(A2C): 65835 mm3 Mitral Valve MV E to A [...] by: Curtis Naylor M.D. on 07/19/2021 at 18:28[facility] LEFT 3 [facility] 62-41-4611NTDC LEFT 3 [facility] Department of Radiology [address] [place] [phone] Patient Name: UNA GOEMZ : 1940 Sex: F Age: Race: White [...] findings. Electronically signed: Trell Enciso. Transcribed by: [email or web address], User Resident: TRELL ENCISO Electronically Signed by: TRELL ENCISO @ 07/17/2020 10:46 AM I personally read this/these film(s) with this [facility] HospitalComment on above:Order Comment: , , , Ordering Provider - NICOLLE JAY MD , KNEE RIGHT 3 VWSon 91-03-1992DXOA RIGHT [address] [facility] Department of Radiology [address] [place] [phone] Patient Name: UNA GOMEZ : 1940 [...] remodeling. Electronically signed: Trell Enciso. Transcribed by: [email or web address], User Resident: TRELL ENCISO Electronically Signed by: TRELL ENCISO @ 07/17/2020 08:46 AM I personally read this/these film(s) with this [facility] HospitalComment on above:Order Comment: , , , Ordering Provider - NICOLLE JAY MD , HIPS BILATERAL 2 VWS WITH PELVISon 09-39-1973KRGA BILATERAL 2 VWS WITH PELVISUnTriHealth [facility] Department of Radiology [address] [place] [phone] Patient Name: UNA GOMEZ : 1940 Sex: F Age: Race: White Pt. Location: 84 Patient Status: O Ordered Date: 07/06/2020 1:25:00 PM Completed Date: 07/06/2020 01:28 PM Requesting Provider: BERTHA MULTANI Attending Provider: BERTHA MULTANI Report Copy To: AMAURY MONTERROSO Signs & Symptoms: M25.551 Pain in right hip I10 History: [place] Comments: evaluate Exam: HIPS BILATERAL 2 VWS [...] changes. Electronically signed: Lincoln Brooke. Transcribed by: [email or web address], User Resident: Electronically Signed by: LINCOLN BROOKE @ 07/06/2020 02:00 PMNormalThe [facility] CenterComment on above:Order Comment: evaluateOperative Report on 46-33-0762Nevdtoegf ReportMR#: [id number] I [facility] Pt. Name: Una Gomez Room #: [id number] Discharge 04/15/2020 Date: Birthdate: 1940 OPERATIVE REPORT DATE OF SURGERY: 04/14/2020 SURGEON: Bertha Multani MD REPAIRER HELPER: Bruno Schafer MD. ANESTHESIA: General with interscalene [...] osteoarthritis of the left shoulder joint with hdgd-kg-wqhk as well as severe massive retracted chronic [...] followed the cou (more content not included)...NormalThe [facility] HEMOGLOBINon 40-43-1829Ijytnydyul (Bld) [Mass/Vol]12.7 g/wAOunyif61.0-15.0The [facility] CenterComment on above:Order Comment: No: Do not add to previous drawPerformed By: #### [id number] #### [address] [place] [address], [place] GLUCOSE LABon 85-63-0166Lrjcrjg [Mass/Vol]97 mg/dL Wbtfvp04-854Ank [facility] CenterComment on above:Performed By: #### [id number] #### [address] [place] [address], USAPORTABLE SHOULDER LEFT 2 VWSon 91-39-8819YSRJCUVV SHOULDER LEFT 2 SUniversThe [facility] Hospital Department of Radiology [address] [place] [phone] Patient Name: UNA GOMEZ : 1940 Sex: F Age: Race: White Pt. Location: [place] [address] Patient Status: I Ordered Date: 04/14/2020 5:10:00 [...] failure Electronically signed: Efrain Cuello. Transcribed by: [email or web address], User Resident: EFRAIN CUELLO Electronically Signed by: EFRAIN CUELLO @ 04/14/2020 06:12 PM I personally read this/these film(s) with this [facility] HospitalComment on above:Order Comment: Hardware Evaluation, in PACU Vital Signs Date TimeVital SignValuePerforming XrebvucerIxnrkthm75-65-1811 11:06-0400Body .48 Rachel Singh MD Work Phone: [facility]10-01-2025 11:06-0400 Body mass index (BMI) [Ratio]22.6 kg/q9GtsdknYaniv Singh MD Work Phone: 1(567)[address] [place], [place] 3273810-01-2025 11:06-0400 Body cazbcg69.24 kgYaniv Singh MD Work Phone: 1(790)[address] [place], [place] 3273810-01-2025 11:06-0400 Diastolic blood mm[Hg]Yaniv Singh MD Work Phone: 1(326)[address] [place], [place] 3273810-01-2025 11:06-0400 Heart rate78 /Padmini Singh MD Work Phone: 1(434)[address] [place], [place] 3273810-01-2025 11:06-0400 Respiratory rate18 /Padmini Singh MD Work Phone: 1(328)[address] [place], [place] 3273810-01-2025 11:06-0400 SaO2% (BldA) [Mass fraction]98 %Yaniv Singh MD Work Phone: 1(854)[address] [place], [place] 3273810-01-2025 11:06-0400 Systolic blood mm[Hg]Yaniv Singh MD Work Phone: 1(350)[address] [place], [place] 3273809-29-2025 08:33-0400 Heart rate67 /Padmini Singh MD Work Phone: 1(845)[address] [place], [place] 3273809-29-2025 07:30-0400 Body ekllzrlhahu68.4 [degF]Yaniv Singh MD Work Phone: 1(180)[address] [place], [place] 3273809-29-2025 07:30-0400 Diastolic blood aosjnwtd00 mm[Hg]Yaniv Singh MD Work Phone: 1(332)[address] [place], [place] 3273809-29-2025 07:30-0400 Respiratory rate17 /Padmini Singh MD Work Phone: 1(788)[address] [place], [place] 3273809-29-2025 07:30-0400 SaO2% (BldA) [Mass fraction]98 %Yaniv Singh MD Work Phone: 1(412)[address] [place], [place] 3273809-29-2025 07:30-0400 Systolic blood yqkxegqt992 mm[Hg]Yaniv Singh MD Work Phone: 1(780)[address] [place], [place] 3273809-28-2025 06:22-0400 Body wrekvv93.3 kgYaniv Singh MD Work Phone: 1(355)[address] [place], [place] 3273809-22-2025 13:39-0400 Body kowsfl694.32 cmStanner Singh MD Work Phone: 1(353)[address] [place], [place] 3273809-22-2025 13:39-0400 Body rkttmndvyjp86.8 [degF]Yaniv Singh MD Work Phone: 1(187)[address] [place], [place] 3273809-22-2025 13:39-0400 Body ffmodv40 kgYaniv Singh MD Work Phone: 1(503)[address] [place], [place] 3273809-22-2025 13:39-0400 Diastolic blood qemtvqzu10 mm[Hg]Yaniv Singh MD Work Phone: 1(826)[address] [place], [place] 3273809-22-2025 13:39-0400 Respiratory rate18 /Padmini Singh MD Work Phone: 1(038)[address] [place], [place] 3273809-22-2025 13:39-0400 SaO2% (BldA) [Mass fraction]97 %Yaniv Singh MD Work Phone: 1(346)[address] [place], [place] 3273809-22-2025 13:39-0400 Systolic blood xspicvsj119 mm[Hg]Yaniv Singh MD Work Phone: 1(332)[address] [place], [place] 3273809-22-2025 11:45-0400 Body vyeqyjtkgkb54.7 [degF]Yaniv Singh MD Work Phone: 1(760)[address] [place], [place] 3273809-22-2025 11:45-0400 Diastolic blood wcmjxojn77 mm[Hg]Yaniv Singh MD Work Phone: 1(810)[address] [place], [place] 3273809-22-2025 11:45-0400 Heart rate76 /Padmini Singh MD Work Phone: 1(386)[address] [place], [place] 3273809-22-2025 11:45-0400 Respiratory rate16 /Padmini Singh MD Work Phone: 1(581)[address] [place], [place] 3273809-22-2025 11:45-0400 SaO2% (BldA) [Mass fraction]96 %Yaniv Singh MD Work Phone: 1(452)[address] [place], [place] 3273809-22-2025 11:45-0400 Systolic blood zsboboqp292 mm[Hg]Yaniv Singh MD Work Phone: 1(368)[address] [place], [place] 3273809-22-2025 06:00-0400 Body luwdta11.5 kgYaniv Singh MD Work Phone: 1(180)[address] [place], [place] 3273809-17-2025 16:12-0400 Inhaled oxygen flow rate0 L/minStanner Singh MD Work Phone: 1(523)[address] [place], [place] 3273809-16-2025 08:15-0400 Body urmojb059.32 cmStanner Singh MD Work Phone: 1(667)[address] [place], [place] 3273807-03-2025 20:05-0400 Body asgrjz900.16 cmStanner Singh MD Work Phone: 1(555)[address] [place], [place] 0515607-03-2025 20:05-0400 Body yuuugirfzib75.1 [degF]Yaniv Singh MD Work Phone: 1(035)[address]07-03-2025 20:05-0400 Body biuvlj24 kgYaniv Singh MD Work Phone: 1(692)[address]07-03-2025 20:05-0400 Diastolic blood txgblwxa95 mm[Hg]Yaniv Singh MD Work Phone: 1(326)[address]07-03-2025 20:05-0400 Heart rate75 /Padmini Singh MD Work Phone: 1(548)843-[address] [place], [place] 1222207-03-2025 20:05-0400 Respiratory rate18 /Padmini Singh MD Work Phone: 1(119)[address]07-03-2025 20:05-0400 SaO2% (BldA) [Mass fraction]94 %Yaniv Singh MD Work Phone: 1(321)727-[address] [place], [place] 1222207-03-2025 20:05-0400 Systolic blood pqixjmkf663 mm[Hg]Yaniv Singh MD Work Phone: 1(979)[address] [place], [place] 0515607-03-2025 08:48-0400 Body fnyomq603.32 Rachel Singh MD Work Phone: 1(294)[address] [place], [place] 0515607-03-2025 08:48-0400 Body mass index (BMI) [Ratio]26.5 kg/k3OjxlctYaniv Singh MD Work Phone: 1(645)[address] [place], [place] 0515607-03-2025 08:48-0400 Body .6 kgYaniv Singh MD Work Phone: 1(432)[address] [place], [place] 0515607-03-2025 08:48-0400 Diastolic blood mxukulmz85 mm[Hg]Yaniv Singh MD Work Phone: 1(113)[address] [place], [place] 0515607-03-2025 08:48-0400 Heart rate74 /Padmini Singh MD Work Phone: 1(613)[address] [place], [place] 0515607-03-2025 08:48-0400 Respiratory rate18 /Padmini Singh MD Work Phone: 1(525)[address] [place], [place] 0515607-03-2025 08:48-0400 SaO2% (BldA) [Mass fraction]97 %Yaniv Singh MD Work Phone: 1(605)[address] [place], [place] 0515607-03-2025 08:48-0400 Systolic blood rvcdighl319 mm[Hg]Yaniv Singh MD Work Phone: 1(104)[address] [place], [place] 0515606-19-2025 11:18-0400 Body nkidjy908.86 Rachel Singh MD Work Phone: 1(694)[address] [place], [place] 0515606-19-2025 11:18-0400 Body mass index (BMI) [Ratio]25.8 kg/z7JkqystYaniv Singh MD Work Phone: 1(398)[address] [place], [place] 0515606-19-2025 11:18-0400 Body xemyut14 kgYaniv Singh MD Work Phone: 1(051)[address] [place], [place] 0515604-08-2025 14:19-0400 Body ggljdi082.3 cmKareem Dolce DPM FACFAS Work Phone: 1(058)[address] [place], [place] 4582004-08-2025 14:19-0400Body mass index (BMI) [Ratio]26.33 kg/m2Invyjw Dolce DPM FACFAS Work Phone: 1419)[address] [place], [place] 4582004-08-2025 14:19-0400Body vgvstu47.15 kgKareem Dolce DPM FACFAS Work Phone: 1(419)[address] [place], [place] 4582004-08-2025 14:19-0400Diastolic blood cffwujrb86 mm[Hg]Uli Dolce DPM FACFAS Work Phone: 1419)[address] [place], [place] 4582004-08-2025 14:19-0400Heart rate67 /min Uli Dolce DPM FACFAS Work Phone: 1419)[address] [place], [place] 4582004-08-2025 14:19-0400Systolic blood sfcdeuoj079 mm[Hg]Uli Dolce DPM FACFAS Work Phone: 1419)[address] [place], [place] 4582003-20-2025 14:14-0400Body .3 cmKareem Dolce DPM FACFAS Work Phone: 1(947)[address] [place], [place] 4582003-20-2025 14:14-0400Body mass index (BMI) [Ratio]26.33 kg/m8Ayknqr Dolce DPM FACFAS Work Phone: 1(881)[address] [place], [place] 4582003-20-2025 14:14-0400Body .15 kgKareem Dolce DPM FACFAS Work Phone: 1419)[address] [place], [place] 4582003-20-2025 14:14-0400Diastolic blood djkfgqle31 mm[Hg]Uli Dolce DPM FACFAS Work Phone: 1419)[address] [place], [place] 4582003-20-2025 14:14-0400Systolic blood hrxanogi125 mm[Hg]Uli Dolce DPM FACFAS Work Phone: 1(139)[address] [place], [place] 4582003-05-2025 13:25-0500Body scemxe467.86 cmSamuel Ross MD Work Phone: 1(961)192-[address] [place], [place] 1222203-05-2025 13:25-0500 Body mass index (BMI) [Ratio]25.8 kg/p5YxyxjuYaniv Singh MD Work Phone: 4(063)296-[address] [place], [place] 1222203-05-2025 13:25-0500 Body zgsxof80.05 kgYaniv Singh MD Work Phone: 1(936)830-[address] [place], [place] 1222202-05-2025 11:34-0500 Body lyhpqq202.86 Rachel Singh MD Work Phone: 1(018)[address]02-05-2025 11:34-0500 Body mass index (BMI) [Ratio]26 kg/w8YoajxwYaniv Singh MD Work Phone: 1(363)[address]02-05-2025 11:34-0500 Body nfutzo46.51 kgYaniv Singh MD Work Phone: 1(429)468-[address] [place], [place] 1222202-05-2025 11:34-0500 Diastolic blood zzfqyhsj85 mm[Hg]Yaniv Singh MD Work Phone: 1(406)[address]02-05-2025 11:34-0500 Heart rate76 /minStanner Singh MD Work Phone: 1(782)399-[address] [place], [place] 1222202-05-2025 11:34-0500 Systolic blood edjyexkp549 mm[Hg]Yaniv Singh MD Work Phone: 1(806)228-[address] [place], [place] 1222212-05-2023 15:15-0500 Body ytqari302.86 cmImad Asaad Other [employer] Other 12-05-2023 15:15-0500Body mass index (BMI) [Ratio] 27.87 kg/m2Imad Asaad Other [facility] [employer] Other 12-05-2023 15:15-0500Body dfmvcy11.6 kgImad Asaad Other [phone] Other 12-05-2023 15:15-0500Diastolic blood cqimwavl63 mm[Hg] Imad Asaad Other [employer] Other 12-05-2023 15:15-0500Systolic blood itdiloja099 mm[Hg] Imad Asaad Other [employer] Other 10-10-2023 14:15-0400Body rbioau385.86 cmImad Asaad Other [employer] Other 10-10-2023 14:15-0400Body mass index (BMI) [Ratio] 29.28 kg/m2Imad Asaad Other [employer] Other 10-10-2023 14:15-0400Body iuxwhy10.77 kgImad Asaad Other [employer] Other 10-10-2023 14:15-0400Diastolic blood dvqaxjcc90 mm[Hg] Imad Asaad Other [employer] Other 10-10-2023 14:15-0400Systolic blood uobqbpsn846 mm[Hg] Imad Asaad Other [employer] Other Encounters Encounter DateEncounter TypeCare ProviderFacilityStart: 53-75-3143cqcfbnvqwxXWZ Jodi L SchwabFacility:[facility] BellevueStart: 46-89-7809cjzggilnazMqrclu L. Bobbs Facility:[facility]vueStart: 28-19-2647mzaydfffyaNtzlwi L. BobbsFacility:[facility] [place]vueStart: 01-16-2025 End: 61-68-9014aqtunwlfmcToyvwr L. BobbsFacility:[facility] BellevueStart: 01-10-2025 End: 69-20-3464mktxubqlelXlnuco L. BobbsFacility:[facility] BellevueStart: 01-08-2025 End: 11-76-8756leagiglbioNdvjww L. BobbsFacility:[facility] BellevueStart: 01-03-2025 End: 75-50-6665csusezaqlrVowv Lynn Schwab [employer] Work Phone: [phone]-Feijwdkhx Health OrthopedicsStart: 01-03-2025 End: 75-92-1668Cwhodzu encounter procedureRobert David Mcneil MD-[facility] Work Phone: Start: 01-03-2025 End: 97-98-0503lmtnkwiiniGghf Lynn Schwab [employer] Work Phone: -[facility]eli Gómez OrthoStart: 01-03-2025 End: 77-38-7631Bblphdv encounter procedureRobert David Gómez OrthoStart: 12-16-2024 End: 06-08-2864cdbmhuowffFXUXEN A LEHMANNFacility:FT FM BellevueStart: 12-12-2024 End: 90-16-4036hxgqjwijyaMjik L SchwabFacility:[facility] BellevueStart: 12-06-2024 End: 19-44-0440wvkvegzgqoFqcp Lynn Schwab FLIGHT PURSER-C Work Phone: [facility] Work Phone: Start: 12-06-2024 End: 39-03-9536Hmjtkdz encounter procedureRobfadumo Mcneil MD-[facility] Work Phone: Start: 12-04-2024 End: 82-92-6159azkmlyjxbaYdrhcf E Ross MD Work Phone: [facility] Work Phone: Start: 12-04-2024 End: 09-84-1406Flwjlds encounter procedureLucie Yanes APRN-[facility] Work Phone: Start: 12-03-2024 End: 16-92-7152mpprmyduaqFjaq L SchwabFacility:CD:[id number]: 12-02-2024 Non-patient / Non-visitChrislinda Boone MD-[facility] Work Phone: Start: 76-31-7071Mhf-patient / Non-visitRobert David Mcneil MD-[facility] Work Phone: Start: 11-25-2024 End: 43-33-3995Mxbgxmylhc and management of inpatientChristian Melchor Boone MD[address] [facility] Work Phone: Start: 11-19-2024 End: 71-90-3869vlfpuzozafFdzbJonah Albertcility:[facility] Hospitaltart: 05-81-1148Jgn-patient / Non-visitRobert David Mcneil MD-[facility] Work Phone: Start: 11-12-2024 End: 77-63-6749Cjrbrxq encounter procedureCurtis Morales MD -Electrodiagnostics Work Phone: Start: 11-12-2024 End: 76-44-3081iaucxgswoiLuxpry E Ross MD Work Phone: [facility] Work Phone: Start: 11-08-2024 End: 85-86-1845omoolbrrucIjrvli E Ross MD Work Phone: [facility] Work Phone: Start: 11-08-2024 End: 70-68-0545Wwiupng encounter procedureFred Mcneil MD-[facility] Work Phone: Start: 11-07-2024 End: 72-76-2089tbsqvtpmunXitvvg E Ross MD Work Phone: [facility] Work Phone: Start: 11-07-2024 End: 67-76-7840Fvcmxcz encounter procedureFred Mcneil MD-[facility] Work Phone: Start: 01-41-3175Atultpewaq RecurringFred Mcneil MD-Physical Therapy Bone CreekStart: 83-12-5726yyztrivwsbLijnnl M David II Facility:[facility]tart: 62-05-2214Gqltqqrkp for other preprocedural examinationFred Hernandez IIThe [facility] Physician GroupStart: 11-01-2024 End: 03-72-7688Vumpwfy encounter procedureFred Mcneil MD-Pre-Surgical Testing Work Phone: Start: 11-01-2024 End: 46-58-7420wiuvzwgqhmWlcikx E Ross MD Work Phone: [facility] Work Phone: Start: 02-76-1724Zxzcoehuc for preprocedural laboratory examinationJuanert Tarun Hernandez IIThe [facility] Physician GroupStart: 10-30-2024 End: 76-95-2294Yyangqkike Louise DO Work Phone: [facility] EyeStart: 10-30-2024 End: 08-74-9313Clpafhkike Louise DO Work Phone: [facility] EyeStart: 10-30-2024 End: 52-63-6094qkrzqtgvafOZPLNXRB D ZAHLERNot AvailableStart: 10-21-2024 End: 68-90-4590vnelkoudjhZTQLB ELATTARUniChillicothe VA Medical Centertart: 10-02-2024 End: 89-81-6948yamjnpaxwtGSILZZ A LEHMANNFacility:[facility] FM BellevueStart: 10-01-2024 End: 10-46-3770htutwvxkjpLOOTCW A LEHMANNFacility:[facility] FM BellevueStart: 09-26-2024 End: 44-89-6723xtvxsututeDNT Marlee L SchwabFacility:FT FM BellevueStart: 97-13-8464damciivbytKIK Marlee L SchwabFacility:[facility] FM BellevueStart: 09-09-2024 End: 33-32-9309pdbfnwkqvqMXR Marlee L SchwabFacility:FT FM BellevueStart: 09-05-2024 End: 61-19-1722Rlrgmcapm department patient visitStanner Singh MD Work Phone: [phone]-Hhmohqhpq Room Work Phone: Start: 09-05-2024 End: 08-71-7453oeaqvmizlxWkchdy E Ross MD Work Phone: [facility] Work Phone: Start: 09-05-2024 End: 59-52-5009Ymfffwa encounter procedureGeorcristobal Morales MD-[facility] Work Phone: Start: 08-29-2024 End: 73-82-9220hfttdybuirLNU Marlee L SchwabFacility:FT FM evueStart: 08-22-2024 End: 18-34-9280Xhzifzl encounter procedureRobfadumo Mcneil MD-[facility]art: 08-22-2024 End: 58-82-0064hoitbtunryAedeuh M Carlisle IIFacility:[facility] Hospitaltart: 08-22-2024 End: 36-11-8700Eqtwbnr encounter procedureFred Mcneil MD-[facility] Work Phone: Start: 08-20-2024 End: 05-59-3505Qrn Drop Chuck Singh [facility] Start: 08-20-2024 End: 46-13-3303vtvvsixzhgUcpsae E. RossFacility:FT FM BellevueStart: 08-01-2024 End: 44-89-2389ukrbvgfxtmUosdck E. RossFacility:[facility] BellevueStart: 07-24-2024 [facility]tart: 06-26-2024 End: 80-02-7672Oktrch flowsheetJonathan D Zahler DO Work Phone: noms NB OPHTStart: 06-26-2024 End: 30-84-5618Gekwye flowsheetJonathan D Zahler DO Work Phone: noms NB OPHTStart: 06-26-2024 End: 75-41-9900iemjxuupcfPISQKHDG D ZAHLERNot AvailableStart: 06-11-2024 End: 53-26-5427Rxigdl flowsheetKareem R Dolce DPM FACFAS Work Phone: [facility] PODStart: 06-11-2024 End: 36-55-1851Zgspxr flowsheetKareem R Dolce DPM FACFAS Work Phone: [facility] PODStart: 06-11-2024 End: 22-35-3322Vxddfl outpatient visit 15 minutesKareem R Dolce DPM FACFAS Work Phone: noMS NMA PODComment on above:Neoplasm of uncertain behavior of skin (Primary Dx); Plantar verrucaStart: 06-11-2024 End: 38-29-1257encdgjmurpRRRKMN R DOLCENot AvailableStart: 05-23-2024 End: 32-70-0538xyngqccdbyESZUNO R DOLCENot AvailableStart: 05-23-2024 End: 31-05-2813Ysnyue outpatient new 30 minutesKareem R Dolce DPM FACFAS Work Phone: [facility] NMA PODComment on above:Neoplasm of uncertain behavior of skin (Primary Dx); Plantar verruca; Pain in right toe(s)Start: 05-20-2024 End: 26-54-5805ibrsrmuaqbDGB Jodi L SchwabFacility:[facility] BellevueStart: 05-13-2024 End: 74-74-1506onhrjfevxwOkuixv E. RossFacility:FT FM BellevueStart: 05-08-2024 End: 85-13-0675eshscartfgZrpfyj E Ross MD Work Phone: [facility] Work Phone: Start: 05-08-2024 End: 65-18-2438Tiyvtsz encounter procedureStanner Singh MD Work Phone: [facility] Work Phone: Start: 04-10-2024 End: 46-59-0460gxteltamczWpgttm E Ross MD Work Phone: [facility] Work Phone: Start: 04-10-2024 End: 93-08-5715Hnlmgrk encounter procedureStanner Singh MD Work Phone: [facility] Work Phone: Start: 04-08-2024 End: 61-52-9448wizncvmamiJvadiu E. RossFacility:FT BellevueStart: 03-05-2024 End: 63-44-2731Ugbenso encounter procedureStanner Singh MD Work Phone: [facility] Work Phone: Start: 03-05-2024 End: 57-32-3619oveinhstvyPliu AsaadFacility:[facility] Start: 02-21-2024 End: 15-38-7558Czxhxz flowsIvonne Louise DO Work Phone: noms NB OPHTStart: 02-21-2024 End: 51-11-0862Lyhvye flowsIvonne Louise DO Work Phone: [facility] NB OPHTStart: 02-21-2024 End: 35-75-9293cyjsiiiysnUNSAFFJO D ZAHLERNot AvailableStart: 02-13-2024 End: 42-06-3453imvzpotpjcJW Samuel E. RossFacility:FT FM BellevueStart: 01-22-2024 End: 13-74-7444Vmoasvrcq encounterKlaus Mckeon DO Work Phone: [facility] SWS FM 230Start: 01-16-2024 End: 13-44-4413wqrrofnnstOwmkca E. RossFacility:FT FM BellevueStart: 01-08-2024 End: 41-80-3045awlubxuceoDojnke E. RossFacility:FT FM BellevueStart: 01-03-2024 End: 27-05-2612zmvqkvliuwXHU Jodi L SchwabFacility:FT FM BellevueStart: 12-11-2023 End: 86-21-7079Nvp Drop offMELISSA BONECKER [facility] Start: 12-11-2023 End: 22-42-3329poaoxairtcLY Samuel E. RossFacility:FT FM BellevueStart: 11-30-2023 End: 93-74-4744umqejxvwdiEUCRXEV [facility] Hospitaltart: 11-20-2023 End: 65-30-0661Scwujv Patricia Louise DO Work Phone: [facility] NB OPHTStart: 11-20-2023 End: 34-32-8243Ordkyq flowsheetOttoniel Louise DO Work Phone: [facility] NB OPHTStart: 11-20-2023 End: 34-49-1492mjfudexgzgQIKYNRGR D ZAHLERNot AvailableStart: 09-19-2023 End: 14-76-9108jmsauouqgoImuyuq E. RossFacility:[facility] FM BellevueStart: 09-18-2023 End: 68-24-2457Klv Drop Chuck Singh [facility] Start: 09-18-2023 End: 34-78-0145cjyhqtogiiGF Yaniv Pope RossFacility:FTMCStart: 09-14-2023 End: 33-67-9189jjejemfzguETW Marlee MalcolmFacility:FT FM BellevueStart: 02-07-2023 End: 07-91-7722gcctabfqxmXiai Asaad Other [facility] GO-SIM Other Start: 32-82-4829Qeifhm outpatient new 45 minutesImad AsaadFPG GastroenterologyStart: 12-13-2022 End: 62-97-5635bzwyydxgtbFxiz Asaad Other [facility] GO-[employer] Other Start: 69-05-7894Pwqcuv outpatient new 45 minutesImad AsaadFPG GastroenterologyStart: 09-09-2022 End: 04-32-6065Mrh Drop offMarele Malcolm [facility] Start: 06-08-2022 End: 76-28-3880ssebwlssngVMJYE D HIGHLANDERFacility:F9Npehe: 03-03-2022 End: 88-48-6037cleauofxlkMKHTJ D HIGHLANDERFacility:P7Xdtkm: 01-03-2022 End: 74-69-9211lvwxrzrjtuPHXJIQVZ CULLENFacility:X0Ckbku: 12-22-2021 End: 35-09-4085ycfzbojlggFQ KIM E KNIGHT .Facility:R7Xkdmj: 11-29-2021 End: 97-30-7669glgbjhvrcvEFALF D HIGHLANDERFacility:Z3Hbiun: 09-07-2021 End: 01-04-9194lmttzsnmxyIY KIM E KNIGHT .Facility:C3Eskbo: 08-27-2021 End: 63-44-2843ncdjpufwwbVVRZL D HIGHLANDERFacility:U9Sxwbl: 07-19-2021 End: 20-49-0838igldxmeaxqQT KIM E KNIGHT .Facility:N7Oziyj: 04-14-2020 End: 22-98-7576Dpgijzrtzr and management of inpatientKIM KNIGHTFacility:[facility] Procedures DateProcedureProcedure DetailPerforming ClinicianStart: 31-84-5311Oprki X-ray of right hipJodi Yun FLIGHT PURSER-C Work Phone: Start: 24-12-7596Cvflegnmnegr ophthalmic imaging retinaAbbiejovannydalton Mely Dani DO Work Phone: Start: 10-30-2024 End: 81-66-4383Gcwuq medical xm&eval [facility] pt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Ottoniel Boone Dani DO Work Phone: comment on above: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 (Primary Dx); Dry eyes; Blepharitis of upper and lower eyelids of both eyes, unspecified typeStart: 40-60-8776Lrhpy X-ray of right shoulderYaniv Singh MD Work Phone: Start: 85-62-9999Athaq Screen MRSA/Juanjose Singh MD Work Phone: Start: 97-82-6699Uaqhbowgbkll ophthalmic imaging retinaOttoniel Sanchezagnesjordana DO Work Phone: Start: 06-26-2024 End: 92-41-4297BlkylEastern State Hospital&eval [facility] pt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Ottoniel Louise DO Work Phone: comment on above: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 (Primary Dx); Dry eyes; Blepharitis of upper and lower eyelids of both eyes, unspecified typeStart: 25-28-5885Ciuxx X-ray of right hipStanner Singh MD Work Phone: Start: 60-07-7740Sykrawthiy elastography of liver Yaniv Singh MD Work Phone: Start: 07-00-2513Hedqeisxhbzy ophthalmic imaging retinaOttoniel Louise DO Work Phone: Start: 02-21-2024 End: 76-43-1778Iknth medical xm&eval comprhnsv estab pt 1/>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Ottoniel Louise DO Work Phone: comment on above: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 (Primary Dx); Dry eyes; Blepharitis of upper and lower eyelids of both eyes, unspecified typeStart: 32-71-6617Vzxkfbusirjq ophthalmic imaging retinaOttoniel Louise DO Work Phone: Start: 11-20-2023 End: 99-93-3248Dmiwi medical xm&eval intermediate estab pt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Ottoniel Louise DO Work Phone: comment on above: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 (Primary Dx); Dry eyes; Blepharitis of upper and lower eyelids of both eyes, unspecified typeStart: 73-61-5858WERPOOIYNE WITH RESPIRATORY VENTILATION, <24 HRSOSAMA ELATTARStart: 75-29-1140PQIBVKRJEEE OF L SHOULDER JT WITH SYNTH SUB, OPEN APPROACHOSAMA ELATTARStart: 34-06-8981ESEBAFJUWB LEFT UPPER ARM TENDON, OPEN APPROACHOSAMA ELATTARBilateral cataracts (disorder)Marlee Yun CholecystectomyJodi Yun Prosthetic arthroplasty of shoulderJodi Yun Comment on above:right 2019 Plan of Treatment DateCare ActivityDetailAuthorStart: 88-26-8586Ryvmx X-ray of right hipXR hip RT min 2V(w/wo pelvis)*[facility] Hospitaltart: 83-53-9509XB Hip - right 2 ViewsOhioHealth Marion General Hospitaltart: 82-57-3241ZnevyabojOhioHealth Marion General Hospitaltart: 02-12-7519Abyrqqexdabbs metabolic 2000 panel - Serum or PlasmaOhioHealth Marion General Hospitaltart: 00-60-6085JwpzwhgflOhioHealth Marion General Hospitaltart: 47-81-4921Tgyibnri admissionOhioHealth Marion General Hospitaltart: 87-25-7906Gkapxxz referral to dietitianOhioHealth Marion General Hospitaltart: 70-72-5253Ddtbwjjo therapy procedureOhioHealth Marion General Hospitaltart: 55-07-4398Kfbwkfku to clinical allergistOhioHealth Marion General Hospitaltart: 33-66-7046Mrvodavu to occupational therapistOhioHealth Marion General Hospitaltart: 60-09-3490Kkkgkinxt procedureOhioHealth Marion General Hospitaltart: 07-26-5700JarpnmspqOhioHealth Marion General Hospitaltart: 41-06-5239YggxyyaaeOhioHealth Marion General Hospitaltart: 11-66-1584Jhljaqsv to rehabilitation physicianOhioHealth Marion General Hospitaltart: 11-19-2024 Hospital admissionOhioHealth Marion General Hospitaltart: 35-24-5124Lzxnoalf to clinical allergistOhioHealth Marion General Hospitaltart: 50-12-0590Uheezvqvm vaccinationInfluenza Vaccine (#1)NOM HealthcareStart: 98-77-1520IkzbvgfmsOhioHealth Marion General Hospitaltart: 10-30-2024 End: 67-60-6877Wkkxknc encounter etyeqmigx51/27/2025 1:15 PM EDT Office Visit [facility] [address] [place] [address] Ottoniel Louise, DO [address] [place] [address] ArrivedNOMerit Health Woman's Hospital EyeComment on above:ArrivedStart: 86-26-2468WvpwaedobOhioHealth Marion General Hospitaltart: 06-26-2024 End: 52-46-2311Srpgokf encounter procedureNOMS NB OPHTComment on above:Arrived Start: 06-11-2024 End: 73-89-4969Rhshdam encounter procedureNOMS NMA PODComment on above:Arrived Start: 57-30-9450Gdfbd X-ray of right hipXR hip RT min 2V(w/wo pelvis)*[facility] Hospitaltart: 34-60-5828LI Hip - right 2 ViewsOhioHealth Marion General Hospitaltart: 00-04-1826WckkvongqOhioHealth Marion General Hospitaltart: 02-21-2024 End: 95-89-6928Zasmjgf encounter procedureNOMS NB OPHTComment on above:Arrived Start: 11-20-2023 End: 45-15-9821Dhsexsp encounter qkhhpwedu54/16/2024 1:30 PM EDT Office Visit NOMRadha [facility] OPHT [address] [place] [address] Ottoniel Louise DO [address] [place] [address] ArrivedNOMS NB OPHTComment on above:ArrivedStart: 86-15-1830Vkkxpahao vaccinationInfluenza Vaccine (#1)[facility] HealthcarePatient EducationTrihealth Ctr Work Phone: Patient referralTrihealth Ctr Work Phone: [facility] TransthoracicNCH Healthcare [facility] Immunizations Immunization DateImmunizationNotesCare LrafqzkrQvlrlcof96-52-7511mcilehxgc virus vaccine, unspecified formulationOttoniel Louise DO Work Phone: [phone]-HjolfLouis Stokes [facility] Center 91-44-7050npnzrdrcp virus vaccine, unspecified formulationStanner Singh 655-2653Izomni-GerpfLouis Stokes [facility] Va Medical Center 09-34-3676OYQJ-CoV-2 (COVID-19) mRNAMUL.ORD!x79930Bbqj Yun 858-2717Cvwcpb-CpfoqOhio State University [facility] Center10-24-2022 influenza virus vaccine, unspecified formulationJodi Yun 953-5326Ykkvht-VsbotOhio State University [facility]ner Medical Center01-12-2022 SARS-CoV-2 (COVID-19) mRNA-1273 vaccineJodi Yun 147-6820Ixggkx-QfvpxOhio State University Wexner Medical CenterComment on above: Result Comment: 2022-07-04: CAI4178-38-5515bzuodselp virus vaccine, unspecified formulationJodi Yun 506-4963Jqaixb-ClhkjOhio State University [facility] Center07-09-2021 pneumococcal polysaccharide vaccine, 23 valentJodi Yun 237-5881Cpwzgm-VizuuOhio State University [facility] Center03-02-2021 SARS-CoV-2 (COVID-19) mRNA-1273 vaccineJodi Yun 479-4558Ughpni-BwihbOhio State University [facility]xner Medical Center02-02-2021 SARS-CoV-2 (COVID-19) mRNA-1273 vaccineJodi Yun 671-1940Dpyzag-RamoiOhio State University [facility]ner Medical Center07-09-2020 pneumococcal conjugate vaccine, 13 valentJodi Yun 649-7472Vzydsb-KutwhOhio State University [facility]ner Medical Center11-29-2019 influenza virus vaccine, unspecified formulationJodi Yun 990-6107Kwfumz-IaygpOhio State University [facility] Center11-27-2018 influenza virus vaccine, unspecified formulationJodi Yun 768-8537Zbzqpf-XnvqzOhio State University [facility] Center12-30-2016 influenza virus vaccine, unspecified formulationJodi Yun 060-8038Bisoju-GfuacOhio State University [facility] Center01-13-2016 influenza virus vaccine, unspecified formulationJodi Yun 502-9221Uzmgnv-CuqvjOhio State University [facility] Medical Center11-14-2005 influenza, wholeJodi Yun 750-5145Ohddlk-VtupcOhio State University [facility] Payers DatePayer CategoryPayerPolicy [id number] 2024Self-pay [id number] [id number] [id number] [id number] 2.16.840.1.616639.3.57[id number] 2.16.840.1.487098.3.579.2.16622-98-8925Diaujuf9999811 2.16.840.1.867623.3.579.2.00825-70-7794Tqqevjr0617530 2.16.840.1.279525.3.579.2.94293-46-5112Hvxkmto4425738 2.16.840.1.632475.3.579.[id number] 2.16.840.1.483431.3.579.[id number] 2.16.840.1.256167.3.579.2.94947-83-1130Oirlbbj6145925 2.16.840.1.112109.3.579.2.74491-02-3127Jenppde7569013 2.16.840.1.726327.3.579.2.92712-13-0843Wqnzxgq36712020 2.16.840.1.112184.3.579.2.79227-61-5856Czcwyhm03587466 2.16.840.1.909860.3.579.2.87975-81-6803Qsltlgs59068401 2.16.840.1.411973.3.579.2.40546-85-6727Vtgmbvp62471295 2.16.840.1.187308.3.579.2.53837-74-1042Zbudzvf56293357 2.16.840.1.848155.3.579.2.61128-59-7376Urddjbl77945430 2.16.840.1.527031.3.579.2.26893-91-2229Xdqetge26214349 2.16.840.1.518074.3.579.2.47725-64-0033Dizcsku99451207 2.16.840.1.975200.3.579.2.01251-28-0854Ztkdyro55382318 2.16.840.1.098280.3.579.2.96597-13-6787Xjuqbjl30593728 2.16840.1.074960.3.579.2.49334-28-3758Fiqifog32688818 2.16.840.1.118651.3.579.2.65802-37-4747Dblhkdy07135458 2.16.840.1.285723.3.579.2.33872-81-7425Rsrseyv06529939 2.16.840.1.598695.3.579.2.47924-83-2128Ojqbnvc56691239 2.16.840.1.243367.3.579.2.23576-36-4054Hgupcig14980024 2.16.840.1.995481.3.579.2.65142-74-1474Rzpmrfi16043137 2.16.840.1.629999.3.579.2.96588-01-4874Unerehy79038639 2.16.840.1.279865.3.579.2.29732-44-3325Pyanmzu65266078 2.16.840.1.005761.3.579.2.419185-89-9755Hplbpes6697116 2.16.840.1.527241.3.579.2.283127-33-7122Yzklrof7457565 2.16.840.1.709369.3.579.2.467635-24-1926Hthmkkh1812639 2.16840.1.064235.3.579.2.606487-42-1428Ctkhrdd9632869 2.16840.1.497315.3.579.2.499286-07-3974Dghfept3552295 2.16840.1.079765.3.579.2.943708-40-2793Adrgtkx03826858 2.16840.1.663424.3.579.2.90223-66-5356Ugxxacb60293125 2.16840.1.995500.3.579.2.88804-80-3333Ddnivcu74424395 2.16.840.1.833972.3.579.2.51357-61-7711Gwkvgar21374454 2.16840.1.451025.3.579.2.96426-05-5677Hbtcfgx22204752 2.16840.1.311499.3.579.2.72987-56-2096Fadymds35098341 2.16840.1.281032.3.579.2.63315-06-5084Beqxdlx60610132 2.16840.1.467619.3.579.2.10048-14-8687Parujqu43930905 2.16840.1.661209.3.579.2.08903-56-3743Gbzklhu51615253 2.16840.1.851175.3.579.2.49290-32-6396Jqayzex19779890 2.840.1.127393.3.579.2.32719-16-6212Idmiral81066446 2.840.1.371739.3.579.2.48163-85-8903Pnatbjy00284503 2.840.1.440948.3.579.2.34964-09-3168Irxhnwd14114606 2.0.1.195558.3.579.2.57237-95-3279Hhbsmqd71965828 2..1.316652.3.579.2.93536-61-2897Yrjumwr88127329 2.0.1.750631.3.579.2.727Private Health TshqsaxhpMRES7FLDJpbrwji23214781 2.840.1.044613.3.579.2.016Hcpunhh35463898 2..1.286189.3.579.2.531 Qvalnpz79826433 2.84.1.936425.3.579.2.820Axcbwnf08698574 2.0.1.693592.3.579.2.510Yrtlhhh80403275 2.0.1.840088.3.579.2.531 Fyfvupv74984704 2.840.1.735517.3.579.2.992Jxhbfea59550732 2.0.1.758840.3.579.2.079Syamtxk01465884 2.840.1.925846.3.579.2.531 Vdgpvrn42846709 2.840.1.697729.3.579.2.118Smbebya36528011 2.16.840.1.660502.3.579.2.039Vcejhiz83865446 2.16.840.1.122839.3.579.2.531 Social History DateTypeDetailFacilityStart: 09-08-2022 End: 84-00-4741Hgpitfc smoking statusNever smoked tobacco (finding)[facility] CenterTobaintegris bass [facility] smoking statusNeverSelect Medical [facility] BellevueStart: 08-02-2023 End: 90-38-4825Hko Assigned At [facility] Systemtart: 86-81-2929Fqgwkmg use and exposureSmokeless tobacco non-userNOMS Healthcare Start: 08-02-2023 End: 23-94-3582Sxihrproz beverage intakeLifetime non-drinker (finding)[facility] HealthcareStart: 08-02-2023 End: 13-04-8288Noynbru of Social functionNOMS HealthcareStart: 55-91-1586Eormxmb Commentcaffeine: 1-2 cups per dayNOMS HealthcareStart: 33-23-2285Wud assigned at [facility] HealthcareStart: 24-49-3513Ymbufs identityIdentifies as female gender (finding)[facility] JoplinTobaintegris [facility] smoking status NHISUnknown if ever smokedUc Health Work Phone: Start: 05-28-2018 End: 32-14-2458KlsUtqdto (finding)[facility] OrientationSelect Medical Specialty [facility] Start: 11-25-2024 End: 44-26-9362PCAX Follow upSDOH Follow upTri[facility] Work Phone: NEGATED: Highlighted rowStart: NINFHistory of tobacco usePassive smokerNOTX Healthcare Medical Equipment Procedure CodeEquipment CodeEquipment Original TextEquipment IdentifierDates Arthroplasty, hip, total, anterior approachAcetabular shell [id number] FDAStart: 86-68-3546Flpzjryudggn, hip, total, anterior approachCeramic femoral head prosthesis ()[id number] FDAStart: 42-04-6863Xbcffrmyfzth, hip, total, anterior approachCoated hip femur prosthesis, modular ()[id number] FDAStart: 60-94-7968Czmyypprdujn, hip, total, anterior approachNon-constrained polyethylene acetabular liner ()[id number] FDAStart: 11-19-2024 Functional Status HqgcOyzdohoioxHyaxakCujlhlri73-79-7203Guwrnpkwtd statusPatient Not at Baseline [facility] Work Phone: Mental Status CogvSaogdeiilbKksuaiVhmyznha99-67-6599Gylkrmcxy functionCognitive Status Patient is Progressing Toward BaselineTrihealth Bethesda North Hospital Work Phone: Clinical Notes 04-22-2020 to 12-16-2024 Note Date & VfsaCikdEjrdpvpe79-72-3385 NotePatient Education Orthopedics Total Hip Replacement Total hip replacement is a surgery to replace your damaged hip joint. You may have this surgery to lessen your pain and to help your hip move better. Tell your doctor about: ??? Any allergies you have. ??? All medicines you are taking. This includes vitamins, herbs, eye drops, creams, and kwtw-yuv-vjqsfno medicines. ??? Any problems you or family [...] medicines. ? Vitamins, herbs, and supplements. ? Kbju-pxw-itzzbjs medicines. ??? Do not take aspirin or [...] You may need t (more content not included)...[facility] 11-07-2024 Evaluation note* Diagnosis Onset Date Resolution [...] 10:55amLeft bundle branch block (LBBB)acuteOctober 2024 10:55am [facility] Work Phone: 1(621) 963-728909-04-2025 Evaluation note* Diagnosis Onset Date Resolution Status [...] total replacement of right hipacuteOctober 2024 9:59am [facility] Work Phone: 1(321) 176-371608-27-2025 NoteRight Eye Quality was good. Scan locations included subfoveal. Progression has been stable. Findings include pigment epithelial detachment. Left Eye Quality was good. Scan locations included subfoveal. Progression has been stable. Findings include pigment epithelial detachment.[facility]oplinTjmvwshjxm82-97-8411 History of Present illness Narrative* Ottoniel Louise [...] lid scrubs were recommended. documented in this encounterMercy Hospital JoplinYsrnrpfrzg48-21-6603 NoteOrthopedic Surgery Subjective Chief complaint: Chief Complaint [...] unspecified chronicity Bertha Multani MD Orthopedic Surgery, Support Service Tech [facility] 10/21/24[facility]07-30-2025 NotePatient Education Infectious Disease Rash, Adult A rash is a breakout of spots or blotches on the skin. It can change the way your skin looks and feels. Many things can cause a rash. The goal of treatment is to stop the itching and keep the rash from spreading. Follow these instructions at home: Medicine Take or apply msbt-tyb-tvmvjxz and prescription medicines only as told by [...] provider. Document Revised: 12/09/2022 Document Reviewed: 12/09/2022 Domain Apps Patient Education ? 2023 [employer]u.[facility] 09-26-2024 NoteNurse Consultation Note Reason for Visit [...] 50,000 intl units (1.25 mg) oral capsule, 56766 International_Unit= 1 cap(s), Oral, 2x/Wk, 3 refills Allergies Augmentin (Unknown) Diflucan (Unknown) sulfa drugs (Unknown) traMADol (Unknown) Immunizations Vaccine Date Status Comments influenza virus vaccine, inactivated 01/23/2024 Recorded influenza virus vaccine, inactivated 12/14/2022 Recorded SARS-CoV-2 (COVID-19) mRNAMUL.ORD![id number] 02/10/2022 Recorded influenza virus vaccine, inactivated 12/27/2021 [...] vaccine, inactivated 03/18/2015 Recorded influenza, whole 01/17/2005 [facility]ed[facility]07-[facility]-2025 Note Patient Education Emergency Medicine Heart Attack A heart attack occurs when blood and oxygen supply to the heart is cut off. A heart attack can cause damage to the heart that cannot be fixed. A heart attack is also called a myocardial infarction, or NE. If you think you are having a [...] these instructions at home: Medicines ??? Take ehms-fdd-osqkkmk and prescription medicines only as told by [...] vomit. ??? You fe (more content not included)...[facility]07-03-2025 Evaluation note* Diagnosis Onset Date Resolution Status [...] total replacement of right hipacuteSeptember 2024 8:00am [facility] Work Phone: 1(958) 206-617207-03-2025 Evaluation note* Diagnosis Onset Date Resolution Status [...] total replacement of right hipacuteSeptember 2024 1:32pm [facility] Work Phone: 1(901) 369-443207-03-2025 Evaluation note* Diagnosis Onset Date Resolution Status [...] 10:55amLeft bundle branch block (LBBB)acuteOctober 2024 10:55am [facility] Work Phone: 1(416) 314-399106-19-2025 Evaluation note* Diagnosis Onset Date Resolution Status Admit Date Personal history of poliomyelitis acuteJune 2024 11:02amPrimary osteoarthritis of right hipacuteJune 2024 11:02am [facility] Work Phone: 1(621) 414-723406-19-2025 Evaluation note* Diagnosis Onset Date Resolution Status Admit Date Personal history of poliomyelitis acuteJune 2024 11:02amPrimary osteoarthritis of right hipacuteJune 2024 11:02amHypertensionacuteJuly 2024 8:33amIrregular heart beatacuteJuly 2024 8:33amLeft bundle branch block (LBBB)acuteJuly 2024 8:33amPrimary osteoarthritis of right hipacuteJuly 2024 8:33am [facility] Work Phone: 1(190) 851-952806-19-2025 Evaluation note* Diagnosis Onset Date Resolution Status Admit Date Personal history of poliomyelitis acuteJune 2024 11:02amPrimary osteoarthritis of right hipacuteJune 2024 11:02amHypertensionacuteJuly 2024 8:33amIrregular heart beatacuteJuly 2024 8:33amLeft bundle branch block (LBBB)acuteJuly 2024 8:33amPrimary osteoarthritis of right hipacuteJuly 2024 8:33amPrimary osteoarthritis of right hipacuteSeptember 2024 1:56pm [facility] Work Phone: 1(114) 891-818705-21-2025 Note Attestation signed by Crissy Schuler MD [...] outside clinic near her home in the [facility] who she reports recommended right total [...] a 84 y.o. female who presents to [facility] today for hip pain in [...] far. 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 She is independent with driving and uses a (more content not included)...[facility]04-23-2025 Note Right Eye Quality was good. Scan locations included subfoveal. Progression has been stable. Findings include abnormal foveal contour, pigment epithelial detachment. Left Eye Quality was good. Scan locations included subfoveal. Progression has been stable. Findings include abnormal foveal contour, pigment epithelial detachment.[id number] History of Present illness Narrative* Ottoniel Louise [...] lid scrubs were recommended. documented in this encounterMercy Hospital [id number] History of Present illness Narrative* Uli Schulte [...] Uli Schulte DPM FACFAS documented in this encounterMercy Hospital [id number] History of Present illness Narrative* JEANNINE Dolan [...] secondary to the pain. They have attempted ouwi-npl-upqhdcg anti- inflammatory medications as well as qdmo-ykq-kghfiru wart treatment to no avail. Patient haspolio [...] < 3 seconds Digits 1-5 bilateral NEURO: [place] Ru 5.07 monofilament was intact B/L. Vibratory [...] occlusive dressing. JEANNINE Dolan documented in this encounterMercy Hospital JoplinAwikbspppc86-22-6971 NotePatient Education Nutrition BMI for Adults Body [...] for Disease Control and Prevention: cdc.gov ??? Swedish Heart Association: heart.org ??? National Heart, Lung, and Blood [place]: nhlbi.nih.gov This information is not intended to replace advice given to you by your health care provider. Make sure you discuss any questions you have with your health care provider. Document Revised: 11/10/2022 Document Reviewed: 11/03/2022 Elsevier Patient Education ? 2023 [employer]Blu.[facility] 04-10-2024 Evaluation note* Author [facility] Vega [facility] 1:30uk75-zbrx-eix female referred to the gastroenterology clinic for [...] and exercise. No need for medical therapy [facility] Work Phone: 1(285) 358-774602-03-2025 NotePatient Education Nutrition BMI for Adults Body [...] for Disease Control and Prevention: cdc.gov ??? Swedish Heart Association: heart.org ??? National Heart, Lung, and Blood [place]: nhlbi.nih.gov This information is not intended to replace advice given to you by your health care provider. Make sure you discuss any questions you have with your health care provider. Document Revised: 11/10/2022 Document Reviewed: 11/03/2022 Domain Apps Patient Education ? 2023 [employer]u.[facility] 02-21-2024 NoteRight Eye Quality was good. Scan locations included subfoveal. Progression has been stable. Findings include pigment epithelial detachment. Left Eye Quality was good. Scan locations included subfoveal. Progression has been stable. Findings include pigment epithelial detachment.[facility] [id number] History of Present illness Narrative* Ottoniel Louise, [...] lid scrubs were recommended. documented in this encounterMercy Hospital [id number] Telephone encounter Note* Telephone Encounter - Julia Webber - 01/22/2024 2:55 PM EST Spoke with pt informing them that Dr. Bravo did not accept leora as a new patient. Pt voiced understanding [facility] JoplinRtdempugcg67-45-1594 Miscellaneous Notes* Telephone Encounter - Julia Webber - 01/22/2024 2:55 PM EST Spoke with pt informing them that Dr. Bravo did not accept leora as a new patient. Pt voiced understanding documented in this [facility]11-12-2024 NotePatient Education Nutrition BMI for Adults Body [...] for Disease Control and Prevention: cdc.gov ??? Swedish Heart Association: heart.org ??? National Heart, Lung, and Blood [place]: nhlbi.nih.gov This information is not intended to replace advice given to you by your health care provider. Make sure you discuss any questions you have with your health care provider. Document Revised: 11/10/2022 Document Reviewed: 11/03/2022 Domain Apps Patient Education ? 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 Assessment/Plan Anticoagulation management encounter (Z51.81: Encounter for therapeutic drug level monitoring) Current use of beta samm (Z79.899: Other extermination supervisor (current) drug therapy) shelter (current) use of anticoagulants (Z79.01: shelter (current) use of anticoagulants) Medications Albuterol (Eqv-ProAir [...] virus vaccine, inactivated 12/14/2022 Recorded SARS-CoV-2 (COVID-19) mRNAMUL.ORD![id number] 02/10/2022 Recorded influenza virus vaccine, inactivated 12/27/2021 [...] vaccine, inactivated 03/18/2015 Recorded influenza, whole 01/17/2005 RecordedK[facility]09-26-2024 Note Cardiovascular Medicine [facility] SUBJECTIVE No chief complaint on file. [...] Echocardiogram: 10/05/2022 Mild left (more content not included)...[facility] 11-30-2023 NotePatient here for 1 year follow up aortic valve stenosis, LBBB, and hypertension. Had routine labs w/ lipid panel in September 2023. She denies chest pain, SOB, palpitations, and LE edema. Doing very well. Review of Systems All other systems reviewed and are negative.[facility] 11-20-2023 NoteRight Eye Quality was good. Scan locations included subfoveal. Progression has been stable. Findings include abnormal foveal contour, pigment epithelial detachment. Left Eye Quality was good. Scan locations included subfoveal. Progression has been stable. Findings include abnormal foveal contour, pigment epithelial detachment. Notes Vitelliform change central [facility] [id number] History of Present illness Narrative* Ottoniel Louise [...] lid scrubs were recommended. documented in this encounterMercy Hospital [id number] NotePatient Education Nutrition BMI for Adults What [...] This can be done either in [place] ([place].S[place] or metric measurements. Note that charts and online BMI calculators are available to help you find your BMI quickly and easily without having to do these calculations yourself. To calculate your BMI in British (U.[place] measurements: 1. Measure your weight in [...] for Disease Control and Prevention: www.cdc.gov ? Swedish Heart Association: www.heart.org ? National Heart, Lung, and Blood [place]: www.nhlbi.nih.gov Summary ? Body mass index (BMI) is a number that is calculated from a person's weight and height. ? BMI may help estimate how much of a person's weight is composed of fat. BMI can help identify those who may be at higher risk for certain medical problems. ? BMI can be measured using British measurements or metric measurements. ? BMI charts are used to identify whether you are underweight, normal weight, overweight, or obese. This information is not intended to replace advice given to you by your health care provider. Make sure you discuss any questions you have with your health care provider. Document Revised: 11/13/2019 Document Reviewed: 09/20/2019 Domain Apps Patient Education ? 2022 [employer]Blu.[facility] 09-14-2023 NotePatient Education Mental and Behavioral Health [...] pray, or go to a place of jainism. ? Do some deep breathing. To do [...] or salt (sodium). General instructions ? Take ldaf-frc-ticmofr and prescription medicines only as told by [...] Mental Health [place]: www.me (more content not included)...[facility]12-05-2023 Evaluation note* Encounter Date Diagnosis Assessment Notes Treatment Notes Treatment Clinical Notes Feb, Fatty liver (ICD-10 - K76.0) Patient advised to make life style modifications-diet/exercise/weight loss. Repeat fibroscan in 1 yr Rto 1 yr [facility] Other 10-10-2023 Evaluation note* Encounter Date Diagnosis Assessment Notes Treatment Notes Treatment Clinical Notes Dec, RUQ pain (ICD-10 - R10.11) [facility] Other 02-17-2021 NoteMR#: [id number] I [facility] Pt. 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 SECONDARY DIAGNOSIS: None. HOSPITAL COURSE: The patient came to the [facility] for left reverse total shoulder arthroplasty [...] Schafer MD Date Trans: 04/22/2020 06:23 P/vicky [id number] cc: Amaury Monterroso M.D. [address] [place] [id number] Hospital DaytonEvaluation + Plan note Future Appointments Appointment Date:09/19/2022 10:40:00 AM Scheduled Provider:[facility]iv [facility]FM Open Appointment Date:09/14/2023 11:00:00 AM Scheduled Provider: [facility] Future Appointments Appointment Date:09/19/2023 10:00:00 AM Scheduled Provider:[facility]aniv [facility] Type:FM Open Appointment Date:09/09/2024 11:00:00 AM Scheduled [facility] Future Appointments Appointment Date:02/13/2024 10:45:00 AM Scheduled Provider:Yaniv Singh MD Location:[facility] Appointment Type:FM Open Appointment Date:09/09/2024 11:00:00 AM Scheduled Provider: Location:[facility] Appointment Type: Medicare Wellness Subsequent [facility] Evaluation + Plan note Future Appointments Appointment Date:09/09/2024 11:00:00 AM Scheduled Provider: Location:[facility] Appointment Type: Medicare Wellness Subsequent [facility] Evaluation note* Diagnosis 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 [...] Admit Date Fatty liver acuteFebruary 2024 11:29am [facility] Work Phone: Evaluation note* Diagnosis 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 Pain in right toe(s) [facility]* Diagnosis 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 documented in this encounter [facility] HealthcareHistory general Narrative - Reported* Type Description Date Medical History ASTHMA Medical HistoryVERTIGOMedical HistoryESOPHAGEAL STRICTURESurgical History SHOULDER REPLACEMENTSurgical HistoryCHOLECYSTECOMYHospitalization HistorySEE ABOVE [facility] Other Hospital course Narrative No data available for this section [facility] Dis[facility] instructions No data available for this section [facility] note No data available for this section [facility]FairhillReason for referral (narrative)No reason for referral information availableUc Health Work Phone: Summary Purpose Family History No [...] 2024 8:00am right hip oste[facility] 1:32[facility] Reason for Visit [...] 2024 8:00am [facility] Status post total replacement of [...] 2024 8:00am right hip osteoarthritis s/p W[facility] 2024 1:32pm Hip pain November 26, 2024 12:00am right hip osteoarthritis s/p [facility] 2024 12:00am Reason for Visit Admit Date Hypertension September 05, 2024 8:33a m Irregular heart beat September 05, 2024 8:33 am Left bundle branch block (LBBB) September 8:33am Primary osteoarthritis of right hip September 05, 2024 8:33am Primary osteoarthritis of right hip [facility]2024 1:56pm Hypertension November 19, 2024 8:00am Impaired mobility and activities of dangelo y living November 19, 2024 8:00am Personal history of poliomyelitis [facility] 2024 8:00am 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, 2024 8:00am Primary osteoarthritis of right hip [facility] 2024 8:00am Status post total replacement of right h ip November 19, 2024 8:00am Hypertension November 25, 2024 1:32pm Impaired mobility and activities of dangelo y living November 25, 2024 1:32pm 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 25, 2024 1:32pm Primary osteoarthritis of right hip [facility] 2024 1:32pm Right hip pain November [...] 2024 8:00am right hip osteoarthritis s/p WALLACE [facility] 2024 1:32pm Hip pain November 26, 2024 12:00am right hip osteoarthritis s/p [facility]ACE [facility] 2024 12:00am 3 month f/u December 04, 2024 10 :55am Reason for Visit Admit Date Hypertension September 05, 2024 8:33a m Irregular heart beat September 05, 2024 8:33 am Left bundle branch block (LBBB) September 8:33am Primary osteoarthritis of right hip September 05, 2024 8:33am Primary osteoarthritis of right hip [facility]2024 1:56pm Hypertension November 19, 2024 8:00am Personal history of poliomyelitis Sept 2024 8:00am Impaired mobility and activities of dangelo y living November 19, 2024 8:00am 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, 2024 8:00am Primary osteoarthritis of right hip [facility]2024 8:00am Status post total replacement of right h ip November 19, 2024 8:00am Hypertension November 25, 2024 1:32pm Impaired mobility and activities of dangelo y living November 25, 2024 1:32pm 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 25, 2024 1:32pm Primary osteoarthritis of right hip [facility]2024 1:32pm Right hip pain November 25, 2024 [...] 2024 8:00am right hip osteoarthritis s/p WALLACE [facility] 2024 1:32pm Hip pain November 26, 2024 12:00am right hip osteoarthritis s/p WALLACE [facility] 2024 12:00am 3 month f/u December 04, [...] and content) DATE CREATED AUTHOR 04/11/2021 [facility] DATE CREATED AUTHOR AUTHOR'S ORGANIZ ATION 07/07/2022 [facility] DATE CREATED AUTHOR AUTHOR'S ORGANIZ ATION 09/22/2023 [facility] DATE CREATED AUTHOR AUTHOR'S ORGANIZ ATION 02/15/2024 [facility] DATE CREATED AUTHOR AUTHOR'S ORGANIZ ATION 08/21/2024 [facility] DATE CREATED AUTHOR AUTHOR'S ORGANIZ ATION 08/23/2024 [facility] DATE CREATED AUTHOR AUTHOR'S ORGANIZ ATION 09/12/2024 [facility] DATE CREATED AUTHOR AUTHOR'S ORGANIZ ATION 11/01/2024 [facility] DATE CREATED AUTHOR AUTHOR'S ORGANIZ ATION 11/02/2024 [facility] DATE CREATED AUTHOR AUTHOR'S ORGANIZ ATION 01/10/2025 [facility] DATE CREATED AUTHOR AUTHOR'S ORGANIZ ATION 01/11/2025 [facility] DATE CREATED AUTHOR AUTHOR'S ORGANIZ ATION 01/17/2025 [facility] Patient Care team informatio n (unrecognized section and content) Team MemberRelationshipSpecialtyStart DateEnd Date Yaniv Singh MD [address] [place] [phone] PCP - GeneralFamily Medicine11/20/23Team MemberRelationshipSpecialtyStart DateEnd Date Yaniv Singh MD [address] [place] [address] PCP - GeneralFamily Medicine11/20/23Team MemberRelationshipSpecialtyStart DateEnd Date Yaniv Singh MD [address] [place] [address] PCP - GeneralFamily Medicine11/20/23Team MemberRelationshipSpecialtyStart DateEnd Date Yaniv Singh MD [address] [place] [phone] PCP - GeneralFamily Medicine11/20/23 Team Status: Active Member Role Status Dates Yaniv Singh MD Primary Care Provider Active Team Status: Inactive Member Role Status Dates Yaniv Singh MD Primary Care Provider Active Start: March 05, 2024 End: March 05, 2024Imad Tar Vega ProviderActiveStart: March 05, 2024 End: March [...] Yaniv Singh MD [address] [place] [address] [facility]11/20/23Team MemberRelationshipSpecialtyStart DateEnd Date Yaniv Singh MD [address] [place] [address] PCP - [facility] Medicine11/20/23 Team Status: Inactive Member Role Status [...] Active Member Role Status Dates Marlee Malcolm FLIGHT PURSER-C Primary Care Provider Active Team Status: Inactive Member Role Status Dates Rosa M Romano APRN Emergency Provider Active Start: September 05, 2024 End: September 05, 2024Marlee Malcolm , FLIGHT PURSER-CPrimary Care ProviderActiveStart: September 05, 2024 End: September 05, 2024 Team Status: Inactive Member Role Status Dates Marlee Malcolm , FLIGHT PURSER-C Primary Care Provider Active Start: November 01, 2024 End: November 01, 2024Fred Hernandez II, MDAttending ProviderActiveStart: November 01, 2024 End: November 01, 2024 Team Status: Active Member Role Status Dates Marlee Malcolm , FLIGHT PURSER-C Primary Care Provider Active Start: November 07, 2024 Fred Hernandez II, MDAttending ProviderActiveStart: November 07, 2024 Team Status: Inactive Member Role Status Dates Marlee Malcolm , FLIGHT PURSER-C Primary Care Provider Active Start: November 07, 2024 End: November 07, 2024Robfadumo Hernandez II, MDAttending ProviderActiveStart: November 07, 2024 End: November 07, 2024 Team Status: Inactive Member Role Status Dates Marlee Malcolm , FLIGHT PURSER-C Primary Care Provider Active Start: November 08, 2024 End: November 08, 2024Robfadumo Hernandez II, MDAttending ProviderActiveStart: November 08, 2024 End: November 08, 2024 Team Status: Inactive Member Role Status Dates Curtis Morales MD Attending Provider Activ e Start: November 12, 2024 End: November 12, 2024Marlee Malcolm , FLIGHT PURSER-CPrimary Care ProviderActiveStart: November 12, 2024 End: November 12, 2024 Team Status: Active Member Role Status Dates Marlee Malcolm , FLIGHT PURSER-C Primary Care Provider Active Start: November 19, [...] ProviderActiveStart: November 19, 2024 Kailee Peterson , FLIGHT PURSER-COther ProviderActiveStart: November 19, 2024 Merlin Swift , [...] Active Member Role Status Dates Marlee Malcolm FLIGHT PURSER-C Primary Care Provider Active Start: November 25, [...] ProviderActiveStart: November 25, 2024 Kailee Peterson , FLIGHT PURSER-COther ProviderActiveStart: November 25, 2024 Jacinto Billy MDOther [...] Active Member Role Status Dates Marlee Malcolm FLIGHT PURSER-C Primary Care Provider Active Start: November 25, [...] ProviderActiveStart: November 25, 2024 Kailee Peterson , FLIGHT PURSER-COther ProviderActiveStart: November 25, 2024 Merlin Swift , [...] Active Member Role Status Dates Marlee Malcolm FLIGHT PURSER-C Primary Care Provider Active Start: November 26, [...] ProviderActiveStart: November 26, 2024 Kailee Peterson , FLIGHT PURSER-COther ProviderActiveStart: November 26, 2024 Merlin Swift , [...] Active Member Role Status Dates Marlee Malcolm FLIGHT PURSER-C Primary Care Provider Active Start: December 02, [...] ProviderActiveStart: December 02, 2024 Kailee Peterson , FLIGHT PURSER-COther ProviderActiveStart: December 02, 2024 Merlin Swift , [...] 04, 2024 End: December 04, 2024Marlee Malcolm NP-CPrformerly [facility] hospitalry Care ProviderActiveStart: December 04, 2024 End: December 04, 2024 Team Status: Inactive Member Role Status Dates Marlee Malcolm FLIGHT PURSER-C Primary Care Provider Active Start: December 06, 2024 End: December 06, 2024Robfadumo Hernandez II MDAttending ProviderActiveStart: December 06, 2024 End: December 06, 2024 Team Status: Active Member Role/Relationship Status Dates Marlee Malcolm FLIGHT PURSER-C Primary Care Provider Active Team Status: Inactive Member Role/Relationship Status Dates Marlee Malcolm FLIGHT PURSER-C Primary Care Provider Active Start: November 01, 2024 End: November 01, 2024Fred Hernandez II MDAttending ProviderActiveStart: November 01, 2024 End: November 01, 2024 Team Status: Active Member Role/Relationship Status Dates Marlee Malcolm FLIGHT PURSER-C Primary Care Provider Active Start: November 07, 2024 Fred Hernandez II, MDAttending ProviderActiveStart: November 07, 2024 Team Status: Inactive Member Role/Relationship Status Dates Marlee Malcolm [employer] Primary Care Provider Active Start: November 07, 2024 End: November 07, 2024Fred Hernandez II, MDAttending ProviderActiveStart: November 07, 2024 End: November 07, 2024 Team Status: Inactive Member Role/Relationship Status Dates Marlee Malcolm [employer] Primary Care Provider Active Start: November 08, 2024 End: November 08, 2024Robfadumo Hernandez II, MDAttending ProviderActiveStart: November 08, 2024 End: November 08, 2024 Team Status: Inactive Member Role/Relationship Status Dates Curtis Morales MD Attending Provider Activ e Start: November 12, 2024 End: November 12, 2024Marlee Maloclm FLIGHT PURS[employer]-CPrimary Care ProviderActiveStart: November 12, 2024 End: November 12, 2024 Team Status: Active Member Role/Relationship Status Dates Marlee Malcolm [employer] Primary Care Provider Active Start: November 19, [...] ProviderActiveStart: November 19, 2024 Kailee Peterson , FLIGHT PURSER-COther ProviderActiveStart: November 19, 2024 Merlin Swift , [...] Active Member Role/Relationship Status Dates Marlee Malcolm [employer] Primary Care Provider Active Start: November 25, [...] ProviderActiveStart: November 25, 2024 Kailee Peterson , FLIGHT PURSER-COther ProviderActiveStart: November 25, 2024 Merlin Swift , [...] Member Role/Relationship Status Dates Marlee Malcolm , [employer] Primary Care Provider Active Start: November 26, [...] Grier MDOther ProviderActiveStart: November 26, 2024 Herminia sAhton MDOther ProviderActiveStart: November 26, 2024 Jovon Menolasino [...] ProviderActiveStart: November 26, 2024 Kailee Peterson , FLIGHT PURSER-COther ProviderActiveStart: November 26, 2024 Merlin Swift , APRNOther ProviderActiveStart: November 26, 2024 Jayson Deal MDOther ProviderActiveStart: November 26, 2024 Tej Rocha MDOther ProviderActiveStart: November 26, 2024 Coleen Torrse MDOther ProviderActiveStart: November 26, 2024 Kemar Brown [...] Member Role/Relationship Status Dates Marlee Malcolm , [employer] Primary Care Provider Active Start: December 02, [...] MDOther ProviderActiveStart: December 02, 2024 Kailee Peterson FL[employer]-COther ProviderActiveStart: December 02, 2024 Merlin Swift , [...] 2024 End: December 04, 2024Jovicenta Malcolm , FLIGHT PURSER-CPrimary Care ProviderActiveStart: December 04, 2024 End: December 04, 2024 Team Status: Inactive Member Role/Relationship Status Dates Marlee Malcolm [employer] Primary Care Provider Active Start: December 06, 2024 End: December 06, 2024Tra Fagan II ProviderActiveStart: December 06, 2024 End: December 06, 2024 Team Status: Active Member Role/Relationship Status Dates Fred Hernandez II, MD Attending Provider Active Start: January 03, 2025 Marlee Malcolm , FLIGHT PURSER-CPrimary Care ProviderActiveStart: January 03, 2025 Team Status: Inactive Member Role/Relationship Status Dates Marlee Malcolm [employer] Primary Care Provider Active Start: January 03, 2025 End: January 03, 2025Vanessa Fagan IIending ProviderActiveStart: January 03, 2025 End: January 03, 2025 Team Status: Inactive Member Role/Relationship Status Dates Fred Hernandez II, MD Attending Provider Active Start: January 03, 2025 End: January 03, 2025Marlee aMlcolm , FLIGHT PURSER-CPrimary Care ProviderActiveStart: January 03, 2025 End: January 03, 2025 REASON FOR VISIT (unrecogniz ed section and content) ReasonCommentsAnnual LhyhTdmwqk-gxEzpjriJoamjizyWwgqzc-eiSaieyfDknskhndMrzq CallousesRT 5th digit callusReasonCommentsMacular Degeneration Goals (unrecognized [...] BE BASED ON THE PRIMARY CLINICAL RECORDS. [facility] [employer] [facility]. provides no warranty or guarantee of the accuracy or completeness of information in this document.
--- NOTE | 2025-01-23 14:15 | PM.WCHP ---
Wound Care H&P: HPI History of Present Illness Narrative: The patient is a pleasant 84-year-old female with history of postpolio syndrome who presents for routine toenail care and callus management. The patient states she has a callus on the right fifth toe that is very painful and limits her ability to walk and carry out ADLs. Her postpolio syndrome has affected her right leg and foot and has resulted in numbness in her foot and weakness. [facility] Medical History (Updated 01/20/25 @ 19:49 by TIMOTHY Duggan) Osteoarthritis ?M19.90 - Unspecified osteoarthritis, unspecified site (ICD-10) Hypothyroid ?E03.9 - Hypothyroidism, unspecified (ICD-10) Asthma ?J45.909 - Unspecified asthma, uncomplicated (ICD-10) Irregular heart beat ?I49.9 - Cardiac arrhythmia, unspecified (ICD-10) Hypertension ?I10 - Essential (primary) hypertension (ICD-10) Surgical History (Updated 08/05/22 @ 13:31 by Dominique Castellanos) History of cholecystectomy ?Z90.49 - Acquired absence of other specified parts of digestive tract (ICD-10) History of arthroplasty of left shoulder ?Z96.612 - Presence of left artificial shoulder joint (ICD-10) History of arthroplasty of right shoulder ?Z96.611 - Presence of right artificial shoulder joint (ICD-10) Status post tonsillectomy and adenoidectomy ?Z90.89 - Acquired absence of other organs (ICD-10) Social History Little interest or pleasure in doing things: not at all Feeling down, depressed, or hopeless: not at all Meds Home Medications and Allergies Home Medications ?Medication ?Instructions ?Recorded ?Confirmed ?Type acetaminophen 500 mg tablet 500 mg PO BID PRN pain 08/05/22 08/05/22 History (Tylenol Extra Strength) aspirin 81 mg capsule 81 mg PO DAILY 08/05/22 08/05/22 History budesonide-formoterol HFA 80 2 inh inhalation BID 08/05/22 08/05/22 History mcg-4.5 mcg/actuation aerosol inhaler (Symbicort) calcium carbonate (Antacid 200 mg PO DAILY 08/05/22 08/05/22 History (calcium carbonate)) candesartan 4 mg tablet (Atacand) 4 mg PO DAILY 08/05/22 08/05/22 History celecoxib 200 mg capsule (Celebrex) 200 mg PO BID 08/05/22 08/05/22 History digoxin 125 mcg (0.125 mg) tablet 125 mcg PO DAILY 08/05/22 08/05/22 History (Digitek) levothyroxine 50 mcg tablet 50 mcg PO DAILY 08/05/22 08/05/22 History (Euthyrox) metoprolol tartrate 25 mg tablet 25 mg PO .hs 08/05/22 08/05/22 History montelukast 10 mg tablet 10 mg PO DAILY 08/05/22 08/05/22 History (Singulair) pro-air inhaler 08/05/22 History spironolactone 25 mg tablet 25 mg PO DAILY 08/05/22 08/05/22 History (Aldactone) vit C 250 mg-vit E 90 mg-zinc 40 1 tab PO BID 08/05/22 08/05/22 History mg-copper 1 tn-cytkyk-nqqqui capsule (PreserVision AREDS-2) Allergies Allergy/AdvReac Type Severity Reaction Status Date / Time Sulfa (Sulfonamide Allergy Mild Nausea Verified 08/05/22 13:18 Antibiotics) Exam Narrative: Exam Narrative: Derm: Toenails 1 through 10 are thickened, elongated, mycotic, and painful. Right hallux toenail is partially absent with just a spicule growing from the medial nail fold. No evidence of paronychia. Hyperkeratotic tissue build up noted on the right lateral fifth toe where it purchases the ground. No ulceration noted at base. No sign of infection. Skin is diffusely dry, thin, and atrophic. Vascular: DP and PT pulses are nonpalpable on the right. DP pulses 2/4 on the left and PT pulses 1/4 on the left. Neuro: Vibratory sensation is absent on the right, present on the left. Achilles deep tendon reflex is 1+ on the right and absent on the left. Protective sensation was tested with the monofilament and is present in 1/5 areas tested on the right and 3/5 areas tested on the left. Weakness noted in all planes, but especially with with dorsiflexion of the right foot. Musculoskeletal: Hammertoe and rotational deformity noted of the right fifth toe. Weakness noted on the right foot/ankle. No gross deformity or weakness noted on the left. Assessment and Plan Assessment and Plan (1) Tinea unguium: (2) Diminished pulses in lower extremity: (3) Callus of foot: (4) Abnormality of gait due to impairment of balance: (5) Post-polio limb muscle weakness: Plan Routine nail care performed. Callus on the right fifth toe was pared with soft tissue nippers without incident. Patient noted pain relief postprocedure. She was encouraged to use a moisturizer and foot file to keep the callus exfoliated. Follow-up in 3 months or as needed. Acute Procedures Podiatry Nail Debridement Class B Findings Absent posterior tibial pulse: right Advanced trophic changes as evidenced by any three of the following: decreased hair growth, nail changes (thickening) and skin texture (thin or shiny) Absent dorsalis pedis pulse: right Class C Findings Claudication: No Temperature changes: No Edema: No Nail debridement paresthesia (abnormal spontaneous sensations in the feet): No Burning: No Qualifies If: Qualifiers If:: A patient qualifies for nail debridement if they have: 1 class A finding (Q7) 2 class B findings (Q8) OR 1 class B & 2 class C findings in addition to a primary condition (Q9) Nail Procedure Nail Procedure Time out: Yes Nail procedure: other ((1) Toenail debridement toes 1 through 10, (2) callus paring right toe #5) Number of affected nails: 10 Location (toes): left and right Procedure successful: Yes Patient tolerated procedure: well and no complications Additional comments: Toenails 1 through 10 were sharply debrided with nail nippers without incident. Lidocaine 2% topical was applied to the right 5th toe. Callus on the right fifth toe was excised using soft tissue n ippers. She noted pain relief post procedure.
== END 2025-01-23 13:42 | disposition home or self-care (01) ==
LOC: WC 13:41
PROVIDERS: Visit Provider Physician Assistant
DX: B35.1 Tinea unguium (principal); R09.89 Other specified symptoms and signs involving the circulatory and respiratory systems; L84 Corns and callosities; R26.89 Other abnormalities of gait and mobility; G14 Postpolio syndrome
CPT/HCPCS: 11721

== ENCOUNTER 2025-01-31 11:16 | Outpatient (OUT) | payer MEDICARE, SELFPAY ==
--- OUTSIDE RECORDS SUMMARY | 2025-01-16 23:59 | XMS_ITS | Continuity of Care Document ---
Author Organization [facility] Address [address] [place] [phone] Care Team Providers Care Pet Feeder Name Role Phone Marlee Malcolm Primary Care Physician Encounter FT_AMBFIN [id number] Date(s): 01/16/25 - 01/16/25 [facility] [address] [place] [phone] Encounter Diagnosis BMI 26.0-26.9,adult(Discharge Diagnosis) - 01/16/25 Overweight (BMI 25.0-29.9)(Discharge Diagnosis) - 01/16/25 Shingles(Discharge Diagnosis) - 01/16/25 Discharge Disposition: Home (Routine DC) Attending Physician: Stew Cottrell DO Encounter Type: Clinic Allergies, Adverse Reactions, Alerts SubstanceCriticalitySeverityReactionReaction SeverityStatussulfa drugsUnknown ActiveAugmentinUnknownActiveDiflucanUnknownActivetraMADolUnknownActive Treatment Plan Future Appointments Appointment Date:01/22/2025 03:40:00 PM Scheduled Provider:Stew Cottrell DO Location:[facility] Appointment Type:FM Open Appointment Date:02/17/2025 01:40:00 PM Scheduled Provider:Stew Cottrell DO Location:[facility] Appointment Type:FM Open Appointment Date:09/09/2025 11:00:00 AM Scheduled Provider: Location:[facility] Appointment Type: Medicare Wellness Subsequent Future Scheduled Tests Radiology* BD Bone Density DEXA 09/09/24 Immunizations Given and Recorded VaccineDateStatusRefusal Reasoninfluenza virus vaccine, ixncshjevem55/19/24 Recordedinfluenza virus vaccine, sitqxtiwvfo01/11/23Recordedinfluenza virus vaccine, ujnkwhsrhbb25/24/22Recordedinfluenza virus vaccine, wznnuyqxbff44/8/21 Recordedinfluenza virus vaccine, pkzrpqmwaqc10/29/19Recordedinfluenza virus vaccine, oqphbiuniww82/27/18Recordedinfluenza virus vaccine, awambbbprcv27/30/16 Recordedinfluenza virus vaccine, inactivated03/18/1574PervpsdsMOEK-DhF-8 (COVID-19) mRNAMUL.ORD!h5418312/8/01ExlxplnfPSTN-JnW-5 (COVID-19) mRNA-1273 xtqkjoh53/12/22 PwreobsyXEXX-YmX-0 (COVID-19) mRNA-1273 vaccine05/05/2027AmofcwywMPUA-GvU-8 (COVID- 19) mRNA-1273 vaccine04/07/20Recordedpneumococcal 23-valent vaccine09/11/20Recorded pneumococcal 13-valent vaccine09/12/19Recordedinfluenza, whole01/17/05Recorded 1Result Comment: 2022-07-04: TPV80 Medications Albuterol (Eqv-ProAir HFA) 90 mcg/inh inhalation aerosol See Instructions, 8.5 EA, Refill(s) 0, TAKE 2 PUFFS EVERY 4 HOURS NEEDED, [id number], 148, cm, 07/19/23 10:14:00 EDT, Height/Length Dosing, 61.7, kg, 07/19/23 10:14:00 EDT, Weight Dosing Start Date: 08/15/23 Status: Ordered Medication Dispense Status: Completed Quantity: 8.5 Unit: EA Total Allowed Fills: 1 Fills Dispensed: 0 aspirin 81 mg, Oral, Daily, Refills(s) 0 Start Date: 09/08/22 Status: Ordered Medication Dispense Status: Completed Total Allowed Fills: 1 Fills Dispensed: 0 candesartan 4 mg Tab See Instructions, TAKE 1 TABLET BY MOUTH EVERY DAY, # 90 tab(s), Refills(s) 4, Pharmacy: [facility]/pharmacy #[id number], 147, cm, 08/29/24 14:41:00 EDT, Height/Length Dosing, 57.9, kg, 08/29/24 14:41:00 EDT, Weight Dosing Start Date: 09/02/24 Status: Ordered Medication Dispense Status: Completed Quantity: 90.0 Unit: tab(s) Total Allowed Fills: 5 Fills Dispensed: 0 digoxin 125 mcg (0.125 mg) Tab See Instructions, TAKE 1 TABLET BY MOUTH EVERY DAY, # 90 tab(s), Refills(s) 3, Pharmacy: [id number], 147, cm, 02/13/24 10:53:00 EST, Height/Length Dosing, 59.9, kg, 02/13/24 10:53:00 EST, WeightDosing Start Date: 04/01/24 Status: Ordered Medication Dispense Status: Completed Quantity: 90.0 Unit: tab(s) Total Allowed Fills: 1 Fills Dispensed: 0 levothyroxine 50 mcg (0.05 mg) Tab See Instructions, TAKE 1 TABLET BY MOUTH EVERY DAY, # 90 tab(s), Refills(s) 1, Pharmacy: [id number], 147, cm, 12/16/24 13:45:00 EDT, Height/Length Dosing, 57.3, kg, 12/16/24 13:45:00 EDT, WeightDosing Start Date: 12/17/24 Status: Ordered Medication Dispense Status: Completed Quantity: 90.0 Unit: tab(s) Total Allowed Fills: 1 Fills Dispensed: 0 meclizine 25 mg Tab 25 mg = 1 tab(s), Oral, q8hr, as needed for dizziness, # 30 tab(s), Refills(s) 0, [id number] 147.8, cm, 07/26/22 15:28:00 EDT, Height/Length Dosing, 63.6, kg, 07/26/22 15:28:00 EDT, Weight Dosing Start Date: 08/25/22 Status: Ordered Medication Dispense Status: Completed Quantity: 30.0 Unit: tab(s) Total Allowed Fills: 1 Fills Dispensed: 0 metoprolol succinate 25 mg ER Tab 25 mg = 1 tab(s), Oral, Bedtime, X 90 day(s), # 90 tab(s), Refills(s) 3, [id number] 147, cm, 02/13/24 10:53:00 EST, Height/Length Dosing, 59.9, kg, 02/13/24 10:53:00 EST, Weight Dosing Start Date: 04/03/24 Stop Date: 03/29/25 Status: Ordered Medication Dispense Status: Completed Quantity: 90.0 Unit: tab(s) Total Allowed Fills: 4 Fills Dispensed: 0 montelukast 10 mg Tab See Instructions, TAKE 1 TABLET BY MOUTH EVERY DAY, # 90 tab(s), Refills(s) 3, Pharmacy: [facility] [id number], 147, cm, 04/08/24 10:58:00 EST, Height/Length Dosing, 59.7, kg, 04/08/24 10:58:00 EST, WeightDosing Start Date: 04/15/24 Status: Ordered Medication Dispense Status: Completed Quantity: 90.0 Unit: tab(s) Total Allowed Fills: 1 Fills Dispensed: 0 predniSONE 10 mg Tab 10 mg = 1 tab(s), Oral, Daily, X 7 day(s), # 7 tab(s), Refills(s) 0, Pharmacy: [facility] #[id number], 147, cm, 01/10/25 14:43:00 EST, Height/Length Dosing, 56.6, kg, 01/10/25 14:43:00 EST, Weight Dosing Start Date: 01/10/25 Stop Date: 01/17/25 Status: Ordered Medication Dispense Status: Completed Quantity: 7.0 Unit: tab(s) Total Allowed Fills: 1 Fills Dispensed: 0 Indications: Body mass index [BMI] 26.0-26.9, adult; Overweight; spironolactone 25 mg Tab See Instructions, TAKE 1 TABLET BY MOUTH EVERY DAY, # 90 tab(s), Refills(s) 4, [id number] 147, cm, 08/20/24 11:30:00 EDT, Height/Length Dosing, 58.2, kg, 08/20/24 11:30:00 EDT, Weight Dosing Start Date: 08/28/24 Status: Ordered Medication Dispense Status: Completed Quantity: 90.0 Unit: tab(s) Total Allowed Fills: 5 Fills Dispensed: 0 Symbicort 80/4.5, Inhalation, BID, Refill(s) 0 Start Date: 09/08/22 Status: Ordered Medication Dispense Status: Completed Total Allowed Fills: 1 Fills Dispensed: 0 Tums mg, Chewed, Daily, Refills(s) 0 Start Date: 09/08/22 Status: Ordered Medication Dispense Status: Completed Total Allowed Fills: 1 Fills Dispensed: 0 Tylenol Extra Strength 500 mg, Oral, BID, PRN as needed for pain, Refills(s) 0 Start Date: 09/08/22 Status: Ordered Medication Dispense Status: Completed Total Allowed Fills: 1 Fills Dispensed: 0 valacyclovir 1 g Tab 1 gm = 1 tab(s), Oral, q8hr, Start on 01/18/2025. Day 8, 9, and 10 of shingles treatment., X 3 day(s), # 9 tab(s), Refills(s) 0, Pharmacy: [facility]/pharmacy #[id number], 147, cm, 01/16/25 15:00:00 EST, Height/Length Dosing, 56.6, kg, 01/16/25 15:27:00 EST, Weight Dosing Start Date: 01/16/25 Stop Date: 01/19/25 Status: Ordered Medication Dispense Status: Completed Quantity: 9.0 Unit: tab(s) Total Allowed Fills: 1 Fills Dispensed: 0 Indications: Zoster without complications; valacyclovir 1 g Tab 1 gm = 1 tab(s), Oral, TID, X 7 day(s), # 21 tab(s), Refills(s) 0, Pharmacy: [facility]/pharmacy #[id number], 147, cm, 01/10/25 14:43:00 EST, Height/Length Dosing, 56.6, kg, 01/10/25 14:43:00 EST, Weight Dosing Start Date: 01/10/25 Stop Date: 01/17/25 Status: Ordered Medication Dispense Status: Completed Quantity: 21.0 Unit: tab(s) Total Allowed Fills: 1 Fills Dispensed: 0 Indications: Zoster without complications; Zoster without complications; Vitamin D 50,000 intl units (1.25 mg) oral capsule 50,000 International_Unit = 1 cap(s), Oral, 2x/Wk, # 24 cap(s), Refills(s) 3, Pharmacy: [facility]/pharmacy #[id number], 147, cm, 08/29/24 14:41:00 EDT, Height/Length Dosing, 57.9, kg, 08/29/24 14:41:00 EDT, Weight Dosing Start Date: 08/29/24 Status: Ordered Medication Dispense Status: Completed Quantity: 24.0 Unit: cap(s) Total Allowed Fills: 4 Fills Dispensed: 0 Indications: Vitamin D deficiency, unspecified; Encounter for other preprocedural examination; Problem List ConditionConfirmationCourseEffective DatesStatusHealth StatusInformantNon- seasonal allergic rhinitis due to pollenConfirmedActiveAsthmaConfirmedResolved Overweight (BMI 25.0-29.9)ConfirmedActiveCervical spondylosisConfirmedActiveFoot deformityConfirmedActiveMacular degeneration, bilateralConfirmedActive Diverticular diseaseConfirmedActivePrimary hypertensionConfirmedActiveFoot drop RckmeapqxCwgibeHqqtbe7IamdbbrruAtlgozIckewjwgDrjkukyzrRlakbmXukkhbfmqwqzscjzribg ConfirmedActiveHypothyroidismConfirmedActiveLeft atrial enlargementConfirmed ActiveLeft bundle branch blockConfirmedActiveLumbar spondylosisConfirmedActive Moderate persistent asthmaConfirmedActiveOsteoarthritis of hipConfirmedActive OsteopeniaConfirmedActiveBMI 26.0-26.9,adultConfirmedActiveKnee pain, left ConfirmedActiveShoulder pain, rightConfirmedActivePost-poliomyelitis muscular atrophyConfirmedActiveRestless legs syndromeConfirmedActiveRight bundle branch blockConfirmedResolvedRight upper quadrant painConfirmedActiveLeft sciatic nerve painConfirmedActiveSquamous cell carcinoma in situConfirmed09/19/22Active Steatosis of liverConfirmedActiveThoracic spondylosisConfirmedActiveVitamin D deficiencyConfirmedActive 1bicuspid aortic valve Procedures ProcedureDateRelated DiagnosisBody SiteStatusHip replacement11/29/24Completed CataractsCompletedCholecystectomyCompletedShoulder anldjcyrzap5Guemrnhnb 1r2019 Social History Social History TypeResponseSmoking StatusNever (less than 100 in lifetime); Smoking Cessation Yes1 entered on: 01/10/25Birth SexFemaleSex RepresentationFemale (finding) 1denies use. Hospital Discharge Instructions Follow Up Care 01/10/2025 15:16:57 With:Stew Cottrell DO, ELANA, PED Address: When:Within 1 Week(s) Patient Care team information Care Team Personnel Name: Sean Ford Position: FT Cad Engineer - Self Assign Member Role: Whiting Can Worker Name: Marlee Martinez Position: FT Ambulatory - Primary Care - [place] Member Role: Primary Care Physician Address: [address] [place] [phone] Telecom: Care Team Related Persons Name: PENELOPE WALDRON Name: GABRIELLE HARDY Name: Gabrielle Hardy Insurance Providers Guarantor name: BOB Radha [facility] Information #: 1 Payer: [employer] Payer Identifier: [id number] Member Number: [id number] Group Number: [id number] Subscriber Identifier: [id number] Relationship to Subscriber: self Coverage Type: MEDICARE Coverage Verification Date: 25 Telecom: [id number] Address: [facility] [id number] [place] [id number] [place] [address]
--- OUTSIDE RECORDS SUMMARY | 2025-01-21 23:59 | XMS_ITS | Continuity of Care Document ---
Author Organization [facility] Address [address] [place] [id number] Care Team Providers Care Diet Aide Name Role Phone Marlee Malcolm Primary Care Physician [phone] Encounter FT_AMBFIN [id number] Date(s): 01/21/25 - 01/21/25 [facility] [address] [place] [id number]- Encounter Diagnosis Neuralgia, postherpetic(Discharge Diagnosis) - 01/21/25 Discharge Disposition: Home (Routine DC) Attending Physician: Stew Cottrell DO Encounter Type: Clinic Allergies, Adverse Reactions, Alerts SubstanceCriticalitySeverityReactionReaction SeverityStatussulfa drugsUnknown ActiveAugmentinUnknownActivetraMADolUnknownActiveDiflucanUnknownActive Treatment Plan Future Appointments Appointment Date:01/29/2025 10:40:00 AM Scheduled Provider:Stew Cottrell DO Location:[facility] Appointment Type: Open Appointment Date:02/18/2025 11:00:00 AM Scheduled Provider:Stew Cottrell DO Location:[facility] Appointment Type: Open Appointment Date:09/09/2025 11:00:00 AM Scheduled Provider: Location:[facility] Appointment Type: Medicare Wellness Subsequent Future Scheduled Tests Radiology* BD Bone Density DEXA 09/09/24 Immunizations Given and Recorded VaccineDateStatusRefusal Reasoninfluenza virus vaccine, yvmnsdvaxpo49/19/24 Recordedinfluenza virus vaccine, /11/23Recordedinfluenza virus vaccine, tgekhlgmpmh21/24/22Recordedinfluenza virus vaccine, /8/21 Recordedinfluenza virus vaccine, yxvneuushbs35/29/19Recordedinfluenza virus vaccine, qdlguaxpuvr85/27/18Recordedinfluenza virus vaccine, nrgoxmckbij74/30/16 Recordedinfluenza virus vaccine, inactivated03/18/1552AgqvemcvBYBR-VgY-9 (COVID-19) mRNAMUL.ORD!l8399500/8/91GxeboodhEOFR-GgX-6 (COVID-19) mRNA-1273 yvwifhr41/12/22 IcpiunwnCGPH-BlR-5 (COVID-19) mRNA-1273 vaccine05/05/2069CgoafuepMVLV-ViJ-4 (COVID- 19) mRNA-1273 vaccine04/07/20Recordedpneumococcal 23-valent vaccine09/11/20Recorded pneumococcal 13-valent vaccine09/12/19Recordedinfluenza, whole01/17/05Recorded 1Result Comment: 2022-07-04: TPV80 Medications Albuterol (Eqv-ProAir HFA) 90 mcg/inh inhalation aerosol See Instructions, 8.5 EA, Refill(s) 0, TAKE 2 PUFFS EVERY 4 HOURS NEEDED, [id number], 148, cm, 07/19/23 10:14:00 EDT, Height/Length Dosing, [...] DAY, # 90 tab(s), Refills(s) 4, Pharmacy: [facility]/pharmacy #[id number], 147, cm, 08/29/24 14:41:00 EDT, Height/Length Dosing, 57.9, kg, 08/29/24 14:41:00 EDT, Weight Dosing Start Date: 09/02/24 Status: Ordered Medication Dispense Status: Completed Quantity: 90.0 Unit: tab(s) Total Allowed Fills: 5 Fills Dispensed: 0 digoxin 125 mcg (0.125 mg) Tab See Instructions, TAKE 1 TABLET BY MOUTH EVERY DAY, # 90 tab(s), Refills(s) 3, Pharmacy: [id number], 147, cm, 02/13/24 10:53:00 EST, Height/Length Dosing, 59.9, kg, 02/13/24 10:53:00 EST, WeightDosing Start Date: 04/01/24 Status: Ordered Medication Dispense Status: Completed Quantity: 90.0 Unit: tab(s) Total Allowed Fills: 1 Fills Dispensed: 0 gabapentin 100 mg Cap See Instructions, 1 capsule before bed as needed for leg pain due to shingles, # 30 cap(s), Refills(s) 0, Pharmacy: [facility]/pharmacy #[id number], 147, cm, 01/21/25 14:45:00 EST, Height/Length Dosing, 55.9, kg,01/21/25 14:45:00 EST, Weight Dosing Start Date: 01/21/25 Status: Ordered Medication Dispense Status: Completed Quantity: 30.0 Unit: cap(s) Total Allowed Fills: 1 Fills Dispensed: 0 Indications: Other postherpetic nervous system involvement; levothyroxine 50 mcg (0.05 mg) Tab See Instructions, TAKE 1 TABLET BY MOUTH EVERY DAY, # 90 tab(s), Refills(s) 1, Pharmacy: [id number], 147, cm, 12/16/24 13:45:00 EDT, Height/Length Dosing, 57.3, kg, 12/16/24 13:45:00 EDT, WeightDosing Start Date: 12/17/24 Status: Ordered Medication Dispense Status: Completed Quantity: 90.0 Unit: tab(s) Total Allowed Fills: 1 Fills Dispensed: 0 meclizine 25 mg Tab 25 mg = 1 tab(s), Oral, q8hr, as needed for dizziness, # 30 tab(s), Refills(s) 0, [id number] 147.8, cm, 07/26/22 15:28:00 EDT, Height/Length Dosing, 63.6, kg, 07/26/22 15:28:00 EDT, Weight Dosing Start Date: 08/25/22 Status: Ordered Medication Dispense Status: Completed Quantity: 30.0 Unit: tab(s) Total Allowed Fills: 1 Fills Dispensed: 0 metoprolol succinate 25 mg ER Tab 25 mg = 1 tab(s), Oral, Bedtime, X 90 day(s), # 90 tab(s), Refills(s) 3, [id number] 147, cm, 02/13/24 10:53:00 EST, Height/Length Dosing, 59.9, kg, 02/13/24 10:53:00 EST, Weight Dosing Start Date: 04/03/24 Stop Date: 03/29/25 Status: Ordered Medication Dispense Status: Completed Quantity: 90.0 Unit: tab(s) Total Allowed Fills: 4 Fills Dispensed: 0 montelukast 10 mg Tab See Instructions, TAKE 1 TABLET BY MOUTH EVERY DAY, # 90 tab(s), Refills(s) 3, Pharmacy: [id number], 147, cm, 04/08/24 10:58:00 EST, Height/Length Dosing, 59.7, kg, 04/08/24 10:58:00 EST, WeightDosing Start Date: 04/15/24 Status: Ordered Medication Dispense Status: Completed Quantity: 90.0 Unit: tab(s) Total Allowed Fills: 1 Fills Dispensed: 0 spironolactone 25 mg Tab See Instructions, TAKE 1 TABLET BY MOUTH EVERY DAY, # 90 tab(s), Refills(s) 4, [id number], 147, cm, 08/20/24 11:30:00 EDT, [...] Total Allowed Fills: 1 Fills Dispensed: 0 Vitamin D 50,000 intl units (1.25 mg) oral capsule 50,000 International_Unit = 1 cap(s), Oral, 2x/Wk, # 24 cap(s), Refills(s) 3, Pharmacy: [facility]/pharmacy #[id number], 147, cm, 08/29/24 14:41:00 [...] deformityConfirmedActiveMacular degeneration, bilateralConfirmedActive Diverticular diseaseConfirmedActivePrimary hypertensionConfirmedActiveFoot drop QxqgqpuniXhavegHglsty2HjxevpfygHjmvruCtsdfuqkVsigpmspnFzoeaePxjrfjxgvojkjfhinntx ConfirmedActiveHypothyroidismConfirmedActiveLeft atrial enlargementConfirmed ActiveLeft bundle branch blockConfirmedActiveLumbar spondylosisConfirmedActive Moderate persistent asthmaConfirmedActiveOsteoarthritis of hipConfirmedActive OsteopeniaConfirmedActiveBMI 26.0-26.9,adultConfirmedActiveKnee pain, left ConfirmedActiveShoulder pain, rightConfirmedActivePost-poliomyelitis muscular atrophyConfirmedActiveRestless legs syndromeConfirmedActiveRight bundle branch blockConfirmedResolvedRight upper quadrant painConfirmedActiveLeft sciatic nerve painConfirmedActiveSquamous cell carcinoma in situConfirmed09/19/22Active Steatosis of liverConfirmedActiveThoracic spondylosisConfirmedActiveVitamin D deficiencyConfirmedActive 1bicuspid aortic valve Procedures ProcedureDateRelated DiagnosisBody SiteStatusHip replacement11/29/24Completed CataractsCompletedCholecystectomyCompletedShoulder vovpqzykoxv2Gfejcyifm 2019 Social History Social History TypeResponseSmoking StatusNever (less than 100 in lifetime); Smoking Cessation Yes1 entered on: 01/10/25Birth SexFemaleSex RepresentationFemale (finding) 1denies use. Hospital Discharge Instructions Follow Up Care 01/16/2025 15:39:11 With:Stew Cottrell DO, ELANA, PED Address: When:Within 1 Week(s) Patient Care team information Care Team Personnel Name: Sean Ford Position: FT Insurance Claim Representative - Self Assign Member Role: Facilities Director Name: Malree Martinez Position: FT Ambulatory - Primary Care - [place] Member Role: Primary Care Physician Address: [address] [place] [address]- Telecom: Care Team Related Persons Name: WALDRONPENELOPE Name: GABRIELLE HARDY Name: Gabrielle Hardy Insurance Providers Guarantor name: BOB S [facility] Information #: 1 Payer: [employer] Payer Identifier: [id number] Member Number: [id number] Group Number: [id number] Subscriber Identifier: [id number] Relationship to Subscriber: self Coverage Type: MEDICARE Coverage Verification Date: NA Telecom: [phone] Address: [facility] [id number] [place] [address]
--- OUTSIDE RECORDS SUMMARY | 2025-01-29 23:59 | XMS_ITS | Continuity of Care Document ---
Author Organization [facility] Address Unknown Care Team Providers Care Cannery Worker Name Role Phone Marlee Malcolm Primary Care Physician Encounter [facility] [id number] Date(s): 01/29/25 - 01/29/25 [place] [address] [place], [place] [address] Discharge Disposition: Home (Routine DC) Attending Physician: Stew Cottrell DO Admitting Physician: Stew Cottrell DO Encounter Type: Lab Drop off Allergies, Adverse Reactions, Alerts SubstanceCriticalitySeverityReactionReaction SeverityStatussulfa drugsUnknown ActiveAugmentinUnknownActiveDiflucanUnknownActivetraMADolUnknownActive Treatment Plan Future Appointments Appointment Date:02/18/2025 11:00:00 AM Scheduled Provider:Stew Cottrell DO Location:[facility] Appointment Type: Open Appointment Date:09/09/2025 11:00:00 AM Scheduled Provider: Location:[facility] Appointment Type:FM Medicare Wellness Subsequent Future Scheduled Tests Laboratory* TIBC Calculated 01/29/25 * Peripheral Smear Review 01/29/25 * Ferritin 01/29/25 * Folate Level 01/29/25 * Haptoglobin 01/29/25 * Iron Level 01/29/25 * Lactate Dehydrogenase 01/29/25 * Reticulocyte Count 01/29/25 * Transferrin 11/26/25 * Vitamin B12 Level 01/29/25 Radiology* BD Bone Density DEXA 09/09/24 Immunizations Given and Recorded VaccineDateStatusRefusal Reasoninfluenza virus vaccine, jabhgbpnbmh01/19/24 Recordedinfluenza virus vaccine, fasgwocluht77/11/23Recordedinfluenza virus vaccine, choiwgnmbqn54/24/22Recordedinfluenza virus vaccine, ibjsentzkha32/8/21 Recordedinfluenza virus vaccine, ygiuzglvfcb18/29/19Recordedinfluenza virus vaccine, lmqxavykork55/27/18Recordedinfluenza virus vaccine, rqdnjsdbmqy42/30/16 Recordedinfluenza virus vaccine, inactivated03/18/1512HbcobttnPMPD-AoQ-4 (COVID-19) mRNAMUL.ORD![id number]/8/19JdlvpkiyXFHG-PrS-9 (COVID-19) mRNA-1273 ydgczzj08/12/22 QyswydmsKOQR-PfZ-8 (COVID-19) mRNA-1273 vaccine05/05/2040GrroodbeMNGV-DnP-4 (COVID- 19) mRNA-1273 vaccine04/07/20Recordedpneumococcal 23-valent vaccine09/11/20Recorded pneumococcal 13-valent vaccine09/12/19Recordedinfluenza, whole01/17/05Recorded 1Result Comment: 2022-07-04: TPV80 Medications Albuterol (Eqv-ProAir HFA) 90 mcg/inh inhalation aerosol See Instructions, 8.5 EA, Refill(s) 0, TAKE 2 PUFFS EVERY 4 HOURS NEEDED, [id number], 148, cm, 07/19/23 10:14:00 EDT, Height/Length Dosing, [...] # 90 tab(s), Refills(s) 4, Pharmacy: [facility]/pharmacy #[id number], 147, cm, 08/29/24 14:41:00 EDT, Height/Length Dosing, 57.9, kg, 08/29/24 14:41:00 EDT, Weight Dosing Start Date: 09/02/24 Status: Ordered Medication Dispense Status: Completed Quantity: 90.0 Unit: tab(s) Total Allowed Fills: 5 Fills Dispensed: 0 digoxin 125 mcg (0.125 mg) Tab See Instructions, TAKE 1 TABLET BY MOUTH EVERY DAY, # 90 tab(s), Refills(s) 3, Pharmacy: [facility] STORE [id number], 147, cm, 02/13/24 10:53:00 EST, Height/Length Dosing, 59.9, kg, 02/13/24 10:53:00 EST, WeightDosing Start Date: 04/01/24 Status: Ordered Medication Dispense Status: Completed Quantity: 90.0 Unit: tab(s) Total Allowed Fills: 1 Fills Dispensed: 0 gabapentin 100 mg Cap See Instructions, 1 capsule before bed as needed for leg pain due to shingles, # 30 cap(s), Refills(s) 0, [id number] 147, cm, 01/21/25 14:45:00 EST, Height/Length Dosing, 55.9, kg,01/21/25 14:45:00 EST, Weight Dosing Start Date: 01/21/25 Status: Ordered Medication Dispense Status: Completed Quantity: 30.0 Unit: cap(s) Total Allowed Fills: 1 Fills Dispensed: 0 Indications: Other postherpetic nervous system involvement; levothyroxine 50 mcg (0.05 mg) Tab See Instructions, TAKE 1 TABLET BY MOUTH EVERY DAY, # 90 tab(s), Refills(s) 1, Pharmacy: [facility] STORE [id number], 147, cm, 12/16/24 13:45:00 EDT, Height/Length Dosing, 57.3, kg, 12/16/24 13:45:00 EDT, WeightDosing Start Date: 12/17/24 Status: Ordered Medication Dispense Status: Completed Quantity: 90.0 Unit: tab(s) Total Allowed Fills: 1 Fills Dispensed: 0 meclizine 25 mg Tab 25 mg = 1 tab(s), Oral, q8hr, as needed for dizziness, # 30 tab(s), Refills(s) 0, [id number] 147.8, cm, 07/26/22 15:28:00 EDT, Height/Length Dosing, 63.6, kg, 07/26/22 15:28:00 EDT, Weight Dosing Start Date: 08/25/22 Status: Ordered Medication Dispense Status: Completed Quantity: 30.0 Unit: tab(s) Total Allowed Fills: 1 Fills Dispensed: 0 metoprolol succinate 25 mg ER Tab 25 mg = 1 tab(s), Oral, Bedtime, X 90 day(s), # 90 tab(s), Refills(s) 3, [id number] 147, cm, 02/13/24 10:53:00 EST, Height/Length Dosing, 59.9, kg, 02/13/24 10:53:00 EST, Weight Dosing Start Date: 04/03/24 Stop Date: 03/29/25 Status: Ordered Medication Dispense Status: Completed Quantity: 90.0 Unit: tab(s) Total Allowed Fills: 4 Fills Dispensed: 0 montelukast 10 mg Tab See Instructions, TAKE 1 TABLET BY MOUTH EVERY DAY, # 90 tab(s), Refills(s) 3, Pharmacy: [facility] STORE [id number], 147, cm, 04/08/24 10:58:00 EST, Height/Length Dosing, 59.7, kg, 04/08/24 10:58:00 EST, WeightDosing Start Date: 04/15/24 Status: Ordered Medication Dispense Status: Completed Quantity: 90.0 Unit: tab(s) Total Allowed Fills: 1 Fills Dispensed: 0 spironolactone 25 mg Tab See Instructions, TAKE 1 TABLET BY MOUTH EVERY DAY, # 90 tab(s), Refills(s) 4, [id number] 147, cm, 08/20/24 11:30:00 EDT, [...] 2x/Wk, # 24 cap(s), Refills(s) 3, Pharmacy: [facility]/pharmacy #[id number], 147, cm, 08/29/24 14:41:00 [...] (BMI 25.0-29.9)ConfirmedActiveCervical spondylosisConfirmedActiveFoot deformityConfirmedActiveMacular degeneration, bilateralConfirmedActive Diverticular diseaseConfirmedActiveDyspnea on exertionConfirmedActivePrimary hypertensionConfirmedActiveFoot gssaDwlafnnrfWaswcbKaymzq2MgwbvzobjBmtlhd ShinglesConfirmedActiveHypercholesterolemiaConfirmedActiveHypothyroidism ConfirmedActiveLeft atrial enlargementConfirmedActiveLeft bundle branch block ConfirmedActiveLightheadedConfirmedActiveLumbar spondylosisConfirmedActive Moderate persistent asthmaConfirmedActiveOsteoarthritis of hipConfirmedActive OsteopeniaConfirmedActiveBMI 26.0-26.9,adultConfirmedActiveKnee pain, left ConfirmedActiveShoulder pain, 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 neuralgiaConfirmedActiveRestless legs syndromeConfirmedActiveRight bundle branch blockConfirmedResolvedRight upper quadrant painConfirmedActiveLeft sciatic nerve painConfirmedActiveSquamous cell carcinoma in situConfirmed09/19/22ActiveSteatosis of liverConfirmedActiveThoracic spondylosisConfirmedActiveVitamin D deficiencyConfirmedActive 1bicuspid aortic valve Procedures ProcedureDateRelated DiagnosisBody SiteStatusHip replacement11/29/24Completed CataractsCompletedCholecystectomyCompletedShoulder josfnzmqnqe4Vxdktfvkr 1r2019 Results Laboratory List NameDateCBC w/ Auto Diff01/29/25Comprehensive Metabolic Panel (CMP)01/29/25 Digoxin Level01/29/25TSH With T4fr Jpysna49/26/62bBSU95/26/57nFEW22/26/25 Most recent to oldest [Reference Range]:12A/G Ratio [1.1-2.2]1.6 (01/29/25 12:22 PM)BUN/Creat Ratio [10-20]20 (01/29/25 12:22 PM)AGAP [6-16 mEq/L]11 mEq/L (01/29/25 12:22 PM)Albumin Lvl [3.3-5.0 gm/dL]4.1 gm/dL (01/29/25 12:22 PM)Alk Phos [21-98 Int._Unit/L]76 Int._Unit/L (01/29/25 12:22 PM)ALT [6-46 Int._Unit/L]13 Int._Unit/L (01/29/25 12:22 PM)AST [5-43 Int._Unit/L]17 Int._Unit/L (01/29/25 12:22 PM)Basophil Auto [0.0-2.0 %]0.4 % (01/29/25 12:22 PM)Bili Total [0.0-1.1 mg/dL]0.6 mg/dL (01/29/25 PM)CO2 [21-31 mmol/L]25 mmol/L (01/29/25 PM)Digoxin Lvl [0.5-1.9 ng/mL]1.0 ng/mL (01/29/25 PM)Eos Auto [0.0-8.0 %]2.4 % (01/29/25 PM)Glucose Lvl [55-199 mg/dL]99 mg/dL (01/29/25 PM)Hct [34.0-46.0 %]27.3 % *LOW* (01/29/25)Hgb [12.0-16.0 gm/dL]9.3 gm/dL *LOW* (01/29/25)Lymph Auto [14.0-50.0 %]32.0 % (01/29/25 PM)RBC [4.3-5.9 E12/L]3.4 E12/L *LOW* (01/29/25)RDW [10.9-14.2 %]16.1 % *HI* (01/29/25 PM)Sodium Lvl [135-145 mmol/L]135 mmol/L (01/29/25 PM)Total Protein [6.0-7.8 gm/dL]6.6 gm/dL (01/29/25 PM)TSH [0.34-5.60 mcIU/mL]0.92 mcIU/mL (01/29/25 PM)MCH [27.0-34.0 pg]27.8 pg (01/29/25 PM)MCHC [31.4-36.0 gm/dL]34.1 gm/dL (01/29/25 PM)MCV [80.0-100.0 fL]81.6 fL (01/29/25 PM)[place] Auto [4.0-14.0 %]7.7 % (01/29/25 PM)MPV [6.4-10.8 fL]7.7 fL (01/29/25 PM)Neutro Auto [36.0-75.0 %]57.5 % (01/29/25: PM)BUN [5-21 mg/dL]12 mg/dL (01/29/25 PM)Calcium Lvl [8.9-11.1 mg/dL]9.5 mg/dL (01/29/25: PM)Platelet [150.0-500.0 E9/L]264.0 E9/L (01/29/25 PM)Potassium Lvl [3.5-5.3 mmol/L]4.1 mmol/L (01/29/25: PM)WBC [4.0-11.0 E9/L]6.1 E9/L (01/29/25 PM)Chloride [101-111 mmol/L]103 mmol/L (01/29/25 PM)[place] Absolute [0.2-1.0 E9/L]0.5 E9/L (01/29/25 PM)Eos Absolute [0.0-0.5 E9/L]0.1 E9/L (01/29/25: PM)Basophil Absolute [0.0-0.2 E9/L]0.0 E9/L (01/29/25 PM)Neutro Absolute [2.0-7.5 E9/L]3.5 E9/L (01/29/25: PM)Lymph Absolute [1.0-4.0 E9/L]2.0 E9/L (01/29/25 PM)eGFR [>=59 mL/min/1.73 m2]87 mL/min/1.73 m2 (01/29/25 PM)87 mL/min/1.73 m2 (01/29/25 PM)Globulin [1.4-4.0 gm/dL]2.5 gm/dL (01/29/25 PM)Creatinine [0.5-1.3 mg/dL]0.6 mg/dL (01/29/25 PM) Social History Social History TypeResponseSmoking StatusNever (less than 100 in lifetime); Smoking Cessation Yes1 entered on: 01/29/25Birth SexFemaleSex RepresentationFemale (finding) 1denies use. Patient Care team information Care Team Personnel Name: Sean Ford Position: [facility] [employer] - Self Assign Member Role: Coin Machine Supervisor Name: Marlee Martinez Position: [facility] - Primary Care - [place] Member Role: Primary Care Physician Address: [address] [place] [address]- Telecom: Care Team Related Persons Name: PENELOPE WALDRON Name: GABRIELLE HARDY Name: Gabrielle Hardy Insurance Providers Guarantor name: BOB Garcia [facility] Information #: 1 Payer: [employer] Payer Identifier: [id number] Member Number: [id number] Group Number: [id number] Subscriber Identifier: [id number] Relationship to Subscriber: self Coverage Type: MEDICARE Coverage Verification Date: Telecom: [phone] Address: [facility] [id number] [place] [id number] [place] [address]
--- OUTSIDE RECORDS SUMMARY | 2025-01-29 23:59 | XMS_ITS | Continuity of Care Document ---
Author Organization [facility] Address [address] [place] [address] Care Team Providers Care Rn Postpartum Name Role Phone Marlee Malcolm Primary Care Physician Encounter FT_AMBFIN [id number] Date(s): 01/29/25 - 01/29/25 [facility] [address] [place] [address]- Encounter Diagnosis Dyspnea on exertion(Discharge Diagnosis) - 01/29/25 Postherpetic neuralgia(Discharge Diagnosis) - 01/29/25 Lightheaded(Discharge Diagnosis) - 01/29/25 Discharge Disposition: Home (Routine DC) Attending Physician: Stew Cottrell DO Encounter Type: Clinic Allergies, Adverse Reactions, Alerts SubstanceCriticalitySeverityReactionReaction SeverityStatussulfa drugsUnknown ActiveAugmentinUnknownActivetraMADolUnknownActiveDiflucanUnknownActive Treatment Plan Future Appointments Appointment Date:02/18/2025 11:00:00 AM Scheduled Provider:Stew Cottrell DO Location:[facility] ([facility] Appointment Type: Open Appointment Date:09/09/2025 11:00:00 AM Scheduled Provider: Location:[facility] ([facility] Appointment Type: Medicare Wellness Subsequent Future Scheduled Tests Laboratory* TIBC Calculated 01/29/25 * Peripheral Smear Review 01/29/25 * Ferritin 01/29/25 * Folate Level 01/29/25 * Haptoglobin 01/29/25 * Iron Level 01/29/25 * Lactate Dehydrogenase 01/29/25 * Reticulocyte Count 01/29/25 * Transferrin 01/29/25 * Vitamin B12 Level 01/29/25 Radiology* BD Bone Density DEXA 09/09/24 Immunizations Given and Recorded VaccineDateStatusRefusal Reasoninfluenza virus vaccine, ruyxqjkzszs87/19/24 Recordedinfluenza virus vaccine, eqhigocjhev94/11/23Recordedinfluenza virus vaccine, yechjxveuvk44/24/22Recordedinfluenza virus vaccine, fviqojftvwv23/8/21 Recordedinfluenza virus vaccine, xsleaxmadxu90/29/19Recordedinfluenza virus vaccine, btadceoxbbc73/27/18Recordedinfluenza virus vaccine, hanmtydfixt28/30/16 Recordedinfluenza virus vaccine, inactivated03/18/1573ZxjmbwskHODW-ArR-5 (COVID-19) mRNAMUL.ORD![id number]/8/07RkutsshwHNFK-NwD-7 (COVID-19) mRNA-1273 /12/22 WtjnhnalKXUL-CeI-6 (COVID-19) mRNA-1273 vaccine05/05/2022KdfhjdgfOBEM-UeC-4 (COVID- 19) mRNA-1273 vaccine04/07/20Recordedpneumococcal 23-valent vaccine09/11/20Recorded pneumococcal 13-valent vaccine09/12/19Recordedinfluenza, whole01/17/05Recorded 1Result Comment: 2022-07-04: TPV80 Medications Albuterol (Eqv-ProAir HFA) 90 mcg/inh inhalation aerosol See Instructions, 8.5 EA, Refill(s) 0, TAKE 2 PUFFS EVERY 4 HOURS NEEDED, [id number], 148, cm, 07/19/23 10:14:00 EDT, Height/Length Dosing, [...] DAY, # 90 tab(s), Refills(s) 4, Pharmacy: [facility]/pharmacy #[id number], 147, cm, 08/29/24 14:41:00 EDT, Height/Length Dosing, 57.9, kg, 08/29/24 14:41:00 EDT, Weight Dosing Start Date: 09/02/24 Status: Ordered Medication Dispense Status: Completed Quantity: 90.0 Unit: tab(s) Total Allowed Fills: 5 Fills Dispensed: 0 digoxin 125 mcg (0.125 mg) Tab See Instructions, TAKE 1 TABLET BY MOUTH EVERY DAY, # 90 tab(s), Refills(s) 3, Pharmacy: [id number], 147, cm, 02/13/24 10:53:00 EST, Height/Length Dosing, 59.9, kg, 02/13/24 10:53:00 EST, WeightDosing Start Date: 04/01/24 Status: Ordered Medication Dispense Status: Completed Quantity: 90.0 Unit: tab(s) Total Allowed Fills: 1 Fills Dispensed: 0 gabapentin 100 mg Cap See Instructions, 1 capsule before bed as needed for leg pain due to shingles, # 30 cap(s), Refills(s) 0, [id number], cm, 01/21/25 14:45:00 EST, Height/Length Dosing, 55.9, kg,01/21/25 14:45:00 EST, Weight Dosing Start Date: 01/21/25 Status: Ordered Medication Dispense Status: Completed Quantity: 30.0 Unit: cap(s) Total Allowed Fills: 1 Fills Dispensed: 0 Indications: Other postherpetic nervous system involvement; levothyroxine 50 mcg (0.05 mg) Tab See Instructions, TAKE 1 TABLET BY MOUTH EVERY DAY, # 90 tab(s), Refills(s) 1, Pharmacy: [id number], 147, cm, 12/16/24 13:45:00 EDT, Height/Length Dosing, 57.3, kg, 12/16/24 13:45:00 EDT, WeightDosing Start Date: 12/17/24 Status: Ordered Medication Dispense Status: Completed Quantity: 90.0 Unit: tab(s) Total Allowed Fills: 1 Fills Dispensed: 0 meclizine 25 mg Tab 25 mg = 1 tab(s), Oral, q8hr, as needed for dizziness, # 30 tab(s), Refills(s) 0, [id number] 147.8, cm, 07/26/22 15:28:00 EDT, Height/Length Dosing, 63.6, kg, 07/26/22 15:28:00 EDT, Weight Dosing Start Date: 08/25/22 Status: Ordered Medication Dispense Status: Completed Quantity: 30.0 Unit: tab(s) Total Allowed Fills: 1 Fills Dispensed: 0 metoprolol succinate 25 mg ER Tab 25 mg = 1 tab(s), Oral, Bedtime, X 90 day(s), # 90 tab(s), Refills(s) 3, [id number] 147, cm, 02/13/24 10:53:00 EST, Height/Length Dosing, 59.9, kg, 02/13/24 10:53:00 EST, Weight Dosing Start Date: 04/03/24 Stop Date: 03/29/25 Status: Ordered Medication Dispense Status: Completed Quantity: 90.0 Unit: tab(s) Total Allowed Fills: 4 Fills Dispensed: 0 montelukast 10 mg Tab See Instructions, TAKE 1 TABLET BY MOUTH EVERY DAY, # 90 tab(s), Refills(s) 3, Pharmacy: [id number], 147, cm, 04/08/24 10:58:00 EST, Height/Length Dosing, 59.7, kg, 04/08/24 10:58:00 EST, WeightDosing Start Date: 04/15/24 Status: Ordered Medication Dispense Status: Completed Quantity: 90.0 Unit: tab(s) Total Allowed Fills: 1 Fills Dispensed: 0 spironolactone 25 mg Tab See Instructions, TAKE 1 TABLET BY MOUTH EVERY DAY, # 90 tab(s), Refills(s) 4, [id number] 147, cm, 08/20/24 11:30:00 EDT, Height/Length [...] 2x/Wk, # 24 cap(s), Refills(s) 3, Pharmacy: [facility]/pharmacy #[id number], 147, cm, 08/29/24 [...] degeneration, bilateralConfirmedActive Diverticular diseaseConfirmedActiveDyspnea on exertionConfirmedActivePrimary hypertensionConfirmedActiveFoot nhzcDmksvcxajEwopdpTwoxso6QhjswdajfFnuhjk ShinglesConfirmedActiveHypercholesterolemiaConfirmedActiveHypothyroidism ConfirmedActiveLeft atrial enlargementConfirmedActiveLeft bundle branch block ConfirmedActiveLightheadedConfirmedActiveLumbar spondylosisConfirmedActive Moderate persistent asthmaConfirmedActiveOsteoarthritis of hipConfirmedActive OsteopeniaConfirmedActiveBMI 26.0-26.9,adultConfirmedActiveKnee pain, left ConfirmedActiveShoulder pain, 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 neuralgiaConfirmedActiveRestless legs syndromeConfirmedActiveRight bundle branch blockConfirmedResolvedRight upper quadrant painConfirmedActiveLeft sciatic nerve painConfirmedActiveSquamous cell carcinoma in situConfirmed09/19/22ActiveSteatosis of liverConfirmedActiveThoracic spondylosisConfirmedActiveVitamin D deficiencyConfirmedActive 1bicuspid aortic valve Procedures ProcedureDateRelated DiagnosisBody SiteStatusHip replacement11/29/24Completed CataractsCompletedCholecystectomyCompletedShoulder wldkwwhaptv1Kmmxkkdgh 1r2019 Social History Social History TypeResponseSmoking StatusNever (less than 100 in lifetime); Smoking Cessation Yes1 entered on: 01/29/25Birth SexFemaleSex RepresentationFemale (finding) 1denies use. Patient Care team information Care Team Personnel Name: Sean Ford Position: FT Marketing Support Assistant - Self Assign Member Role: Glass Smoother Name: Marlee Martinez Position: FT Ambulatory - Primary Care - [place] Member Role: Primary Care Physician Address: [address] [place] [address]- Telecom: Care Team Related Persons Name: PENELOPE WALDRON Name: GABRIELLE HARDY Name: Gabrielle Hardy Insurance Providers Guarantor name: [facility] Plan Information #: 1 Payer: [employer] Payer Identifier: [id number] Member Number: [id number] Group Number: [id number] Subscriber Identifier: [id number] Relationship to Subscriber: self Coverage Type: MEDICARE Coverage Verification Date: 25 Telecom: [phone] Address: [facility] [id number] [place] [address]
--- OUTSIDE RECORDS SUMMARY | 2025-01-31 11:26 | XMS_ITS | CCD ---
Author Organization [facility] CliniSyfl Care Team Providers Care Cardiovascular Technician Name Role Phone AMAURY MONTERROSO Primary Care Unavailable AMAURY MONTERROSO Referring Unavailable AMANDAATTAR, OSAMA Admitting Unavailable SUSANA OSAOTTO Attending Unavailable [place] Procedure Practitioner Unavailab BERTHA Ahumada Surgeon Unavailable [...] Unavailable Yaniv Singh MD Primary Care Provider [phone] MD Yaniv Singh. Attending Unavailable MD Yaniv Singh. Admitting Unavailable MD Yaniv Singh. Attending Unavailable MD Yaniv Singh. Attending Unavailable MELISSA RODRIGEZ Admitting Unavailable MELISSA RODRIGEZ Attending Unavailable Yaniv Singh MD Primary Care Provider Marija Vega MD Attending Provider [phone] Yaniv Singh MD Primary Care Provider Marija Vega MD Attending Provider Fred Hernandez MD Attending Provider MELISSA RODRIGEZ Admitting Unavailable MELISSA RODRIGEZ Attending Unavailable Yaniv Singh ELynn Attending Unavailable Yun, BLOWING WEASAND Marlee L Attending Unavailable Yaniv Singh ELynn Attending Unavailable Francisco Yaniv ELynn Attending Unavailable Francisco Yaniv ELynn Attending Unavailable Abdelrahman Singhuel ELynn Attending Unavailable Ross Yaniv ELynn Attending Unavailable Yun, BLOWING WEASAND Marlee L Attending Unavailable Francisco Yaniv ELynn Admitting Unavailable Yaniv Singh Attending Unavailable Yaniv Singh MD Primary Care Provider Fred Hernandez MD Attending Provider Curtis Morales MD Attending Provider Rosa M Romano APRN Emergency Provider [phone] Yun INSURANCE PROCESSOR-CMarlee Primary Care Provider Yaniv Singh Attending Unavailable Yun, BLOWING WEASAND Marlee L Attending Unavailable Yaniv Singh ELynn Attending Unavailable Yun, BLOWING WEASAND Marlee L Attending Unavailable Francisco Yaniv ELynn [...] Attending Provider Fred Hernandez MD Other Provider [phone] Lorenza RN, Adalgisa Other Provider Unavailable Benjamin RN, Karine Other Provider Unavailable Arley RN, Love Other Provider Unavailable Vivienne RN, Gabrielle Other Provider Unavailable Francisco RN, Tonya Other Provider Unavailable Gopal RN, Tamia Other Provider Unavailable Nicholas Mckinley MD Other Provider Akhil NESS, Debby Other Provider [phone] Jacinto Billy MD Other Provider Joey Avelar DO Other Provider Marvel BELTRAN, Richard Other Provider Herminia Ashton MD Other Provider Jovon Mendez DO Other Provider [phone] Sanchez BELTRAN, Carlo Other Provider Unavailable Debbie Mendoza APRN Other Provider Garcia BELTRAN, Maximo Other Provider Doris Hallman MD Other Provider Unavailable Ksenia Rosario MD Other Provider Jovon Cramer DO Other Provider Abhishek Ngo MD Other Provider Alexis Dickson MD Other Provider Kristen INSURANCE PROCESSOR-C, Kailee Chavarria Other Provider Merlin Swift APRN Other Provider Unavailable Jayson Deal MD Other Provider Aj BELTRAN, Tej Other Provider Brian BELTRAN, Coleen Other Provider Unavailable Kemar Brown DO Other Provider Stephanie PERSAUD, Cindy Other Provider Acosta Potts DO Other Provider Rubén BELTRAN, John Mcneil Other Provider Areli Bear APRN Other Provider [phone] Stefania PERSAUD, Argelia Acuna Other Provider Elena BELTRAN, Beryl Other Provider Unavailable Sukhjinder BELTRAN, Orestes Chavarria Other Provider Anil Baires DO Other Provider Jero BELTRAN, Mayur Carr Other Provider Mark BELTRAN, Mikhail Sow Other Provider Froilan PERSAUD, Elissa Other Provider Unavailable Geovanny BELTRAN, Dejuan Other Provider Robert BELTRAN, Harlan Giraldo Other Provider Lena BELTRAN, Carlo Garcia Other Provider Bobo BELTRAN, aDt Other Provider Derick PERSAUD, Elina Izquierdo Other Provider Belinda PERSAUD, Kb Other Provider [phone] Becky WOOYD, Cinthia Other Provider Unavailable Harlan Herron MD Other Provider Antonio Roche MD Admit Provider Antonio Roche MD Attending Provider [phone] Sara Liriano MD Other Provider [phone] Jovon Mendez DO Other Provider Unavailab Antonio Vann MD Other Provider Lucie Yanes APRN Attending Provider [phone] Yun INSURANCE PROCESSOR-C, Marlee Lewis Primary Care Provider [phone] Curtis Morales MD Attending Provider Yun, BLOWING WEASAND Marlee L Attending Unavailable Yun, BLOWING WEASAND Marlee L Attending Unavailable Yun, BLOWING WEASAND Marlee L Attending Unavailable Yun, BLOWING WEASAND Marlee L Admitting Unavailable Yun, BLOWING WEASAND Marlee L Attending Unavailable Yaniv Singh Admitting Unavailable Yaniv Singh Attending Unavailable Yun, BLOWING WEASAND Marlee L Attending Unavailable Bobbs, Shauni L. [...] Chavarria Consulting Unavailable Herminia Ashton Consulting Unavailable Joovn Mendez Consulting Unavailable Carlo Bradford Consulting Unavailable [...] Consulting Unavailable Dejuan Small Consulting Unavailable Harlan Jnoes Consulting Unavailable Carlo Paredes Consulting Unavailable Dat [...] Joey Avelar Consulting UnavailRichard Chavarria Consulting Unavailable Hreminia Ashton Consulting Unavailable Jovon Mendez Consulting Unavailable [...] David JESUS, Fred Mcneil Attending Unavailabl e Morrison II, Fred Mcneil Admitting Unavailabl e Yun, [...] powder; Translations: [hicks powder]Propensity to adverse reactions (disorder)63-18-7961Moc [facility] Repository (1 source)eggplant extractDrug Obaacgt60-07-1100ZqbMer[facility] (16 sources)Sulfonamides (Antibiotic); Translations: [SULFA (SULFONAMIDE ANTIBIOTICS)]Propensity to adverse reactions (disorder)22-24-2993DvricyVoa [facility] Repository (1 source)HYDROcodoneDrug Szcjddu36-85-0105WgqA[facility] (1 source)Sulfonamides (Antibiotic)Drug allergy (disorder)20-41-9884Zgf [facility] Repository (9 sources)Amoxicillin / Clavulanate; Translations: [amoxicillin-clavulanate] Drug AllergyUnknown (qualifier value)[facility] (20 sources)Fluconazole; Translations: [fluconazole]Drug Xpvdwfz62-71-3997 Unknown (qualifier value)[facility] (9 sources)Sulfonamides (Antibiotic); Translations: [sulfa drugs]Drug allergy Unknown (qualifier value)[facility] (20 sources)traMADol; Translations: [tramadol]Drug Heeiluy53-33-1878Ppqsteh (qualifier value)[facility] (14 sources)FluconazoleAllergy to vqbobscwx99-05-4919[facility] (14 sources)Sulfonamides (Antibiotic)Drug Brtpvsh54-70-2862QxpoldqBHZN Healthcare (15 sources)Amoxicillin-Pot Clavulanate; Translations: [AMOXICILLIN-POT CLAVULANATE]Drug Yolxvib23-79-9381QglwyqlGGAG [facility] Work Phone: (14 sources)Amoxicillin; Translations: [amoxicillin]Drug Cyzupiy17-70-6856 Unknown ReactionChillicothe [facility] (14 sources)Clavulanate; Translations: [clavulanic acid]Drug Bunvufo54-67-8120 Unknown ReactionChillicothe Va Medical Center (11 sources)predniSONE; Translations: [prednisone]Drug Rbrswwh48-81-6615 constipationChillicothe [facility] Center (1 source)FluconazoleDrug Teukjkp17-79-5024GntlfwnjcChillicothe Va Medical Center Repository (1 source)traMADolDrug Nntvqzs72-43-5758MgjjzpxgqChillicothe Va [facility] Center Repository Medications Current Medications MedicationDrug Class(es)DatesSig (Normalized)Sig (Original)acetaminophen 500 mg oral tablet (20 sources)Start: 11-07-2024 End: 52-39-3156nqmk 2 tablets by mouth every eight hours as needed for pain Acetaminophen 500 mg Tablet Active 1000 MG PO Q8H as needed for Pain 0 0 December 02, 2024 12:00am Complies with drug therapyStart: 11-01-2024 End: 60-04-8793jddj 1 tablet by mouth twice dailyAcetaminophen (Acetaminophen Extra Strength) 500 mg tablet Discontinued 500 MG PO Twice daily November 01, 2024 12:00am December 02, 2024 10:51amStart: 07-10-2018 End: 63-84-6182ztnk 1 tablet by mouth twice daily as needed for pain Acetaminophen (Tylenol Extra Strength) 500 mg Tablet Discontinued 500 MG PO Twice daily as needed for Pain July 10, 2018 12:00am September 04, 2024 8:22am acetaminophen (Tylenol Extra Strength) 500 MG tablet every 6 (six) hours. Active [id number] 200 actuat albuterol 0.09 mg/actuat metered dose inhaler (20 sources)beta2-Adrenergic AgonistStart: 27-61-5946adkv 1 puff(s) by inhalation every four to six hours as needed for wheezingAlbuterol Sulfate 90 mcg/actuation HFA aerosol inhaler Active 2 PUFF INHALATION EVERY 4-6 HOURS as n eeded for shortness of breath or wheezing September 04, 2024 12:00am Complies with drug therapyStart: 00-15-7626NczAlj HFA Inhalation, q6hr Wheezing, Refill(s) 0 Start Date: 09/08/22 Status: OrderedStart: 11-92-7874iuzp 2 puff(s) by inhalation every four hours as neededalbuterol HFA (Proventil HFA) 90 mcg/act inhaler 2 puff(s), Inhalation, q4hr, Refill(s) 0, as needed 07/05/2022 ActiveAlbuterol (Eqv-ProAir HFA) 90 mcg/inh inhalation aerosol (3 sources)Start: 44-07-5341Xanebeutb (Eqv-ProAir HFA) 90 mcg/inh inhalation aerosol See Instructions, 8.5 EA, Refill(s) 0, TAKE 2 PUFFS EVERY 4 HOURS NEEDED, [id number], 148, cm, 07/19/23 10:14:00 EDT, Height/Length Dosing, 61.7, kg, 07/19/23 10:14:00 EDT, Weight Dosing Start Date: 08/15/23 Status: Ordered Quantity: 8.5 Unit: EA Repeat number: 1Start: 44-89-2167Fiderpujp (Eqv- ProAir HFA) 90 mcg/inh inhalation aerosol See Instructions, 8.5 EA, Refill(s) 0, TAKE 2 PUFFS EVERY 4 HOURS NEEDED, [id number], 148, cm, 07/19/23 10:14:00 EDT, Height/Length Dosing, 61.7, kg, 07/19/23 10:14:00 EDT, Weight Dosing Start Date: 08/15/23 Status: OrderedAspir-81 (2 sources)Aspir-81 Activeaspirin 81 mg delayed release oral tablet (20 sources)Platelet Aggregation Inhibitor, Nonsteroidal Anti-inflammatory Drug Start: 41-62-1396rmwv 1 tablet by mouth once dailyAspirin 81 mg tablet,delayed release (DR/EC) Active 81 MG PO daily December 04, 2024 11:00am Complies with drug therapyStart: 11-07-2024 End: 43-68-2803nogt 1 tablet by mouth twice dailyAspirin 81 mg tablet,delayed release (DR/EC) Discontinued 81 MG PO Twice daily 60 30 0 December 02, 2024 10:49am December 04, 2024 11:03am DO NOT RECONCILE UNTIL DOS:11/19/2024 MED TO BEDStart: 94-07-3589byxk 81 mg by mouth once dailyaspirin 81 mg, Oral, Daily, Refills(s) 0 Start Date: 09/08/22 Status: Ordered Repeat number: 1Start: 07-10-2018 End: 65-52-5711njwj 1 tablet by mouth once dailyAspirin 81 mg Tablet,Chewable Discontinued 81 MG PO Daily July 10, 2018 12:00am November 25, 2024 2:06pm On Hold: Resume on 12/25/24.aspirin 81 MG EC tablet 1 (one) time each day at the same time. ActiveSymbicort (20 sources)Corticosteroid, beta2-Adrenergic AgonistStart: 29-09-7464Sjnkpssuk 80/4.5, Inhalation, BID, Refill(s) 0 Start Date: 09/08/22 Status: Ordered Repeat number: 1Start: 52-03-1548Jelevyrwx 80/4.5, Inhalation, BID, Refill(s) 0 Start Date: 09/08/22 Status: OrderedStart: 43-68-5437Jifmqpqfh 80-4.5 MCG/ACT inhaler 06/13/2022 ActiveStart: 25-92-3871zpoa 1 puff(s) by inhalation twice daily Budesonide-Formoterol 80-4.5 mcg/actuation HFA aerosol inhaler Active 2 PUFF INHALATION Twice dailyJuly 10, 2018 12:00am Complies with drug therapyStart: 78-59-5433ejyt 1 puff(s) by inhalation twice dailyStart: 99-77-5299gcne 1 puff(s) by inhalation twice dailytake 2 puff(s) by inhalation twice daily Symbicort 80-4.5 MCG/ACT 2 puffs Inhalation Twice a day ActiveSymbicort Active bupivacaine hydrochloride 5 mg/ml injectable solution (14 sources)Amide Local Anestheticbupivacaine (Marcaine) 0.5 % injection bupivacaine HCl 0.5 % (5 mg/mL) injection solution via inject Activecalcium carbonate 500 mg chewable tablet (20 sources)Start: 35-23-5784czhi 1 tablet by mouth once daily in the morning Calcium Carbonate (Calcium Antacid) 200 mg calcium (500 mg) tablet,chewable Active 200 MG PO Every morning November 01, 2024 12:00am Complies with drug therapyStart: 17-39-3558Rtqp mg, Chewed, Daily, Refills(s) 0 Start Date: 09/08/22 Status: Ordered Repeat number: 1Start: 95-66-8561Rbuu mg, Chewed, Daily, Refills(s) 0 Start Date: 09/08/22 Status: OrderedStart: 07-10-2018 End: 66-18-5475dfxt 1 tablet by mouth twice dailyCalcium Carbonate (Tums) 200 mg calcium (500 mg) Tablet,Chewable Discontinued 200 MG PO Twice dailyMay 2018 12:00am September 04, 2024 8:22amcalcium carbonate (Os-Yung) 1250 (500 Ca) MG chewable tablet Chew 200 mg in the morning. ActiveTums Activecandesartan cilexetil 4 mg oral tablet (20 sources)Angiotensin 2 Receptor BlockerStart: 84-06-2553pdvf 1 tablet by mouth once daily at bedtimeCandesartan 4 mg tablet Active 4 MG PO Daily at bedtime July 10, 2018 12:00am Complies with drug therapyCandesartan Cilexetil-HCTZ (1 source)Candesartan Cilexetil-HCTZ Activecelecoxib 200 mg oral capsule (20 sources)Nonsteroidal Anti-inflammatory DrugStart: 95-54-9738vkxkgogba (CeleBREX) 200 MG capsule 1 (one) time each day at the same time. 07/05/2022 ActiveStart: 07-10-2018 End: 17-16-8052qlrd 1 capsule by mouth twice daily as needed for painCelecoxib 200 mg capsule Active 200 MG PO Twice daily as needed for pain 60 0 December 02, 2024 10:49am Complies with drug therapyCelecoxib Activecephalexin 500 mg oral capsule (14 sources)Cephalosporin AntibacterialStart: 57-15-1986szwz 1 capsule by mouth in the morningcephalexin (Keflex) 500 MG capsule Take 500 mg by mouth in the morning and 500 mg before bedtime. 04/07/2022 Activedesonide 0.5 mg/ml topical cream (14 sources)CorticosteroidStart: 52-45-3915vyqxrmya (DesOwen) 0.05 % cream APPLY SMALL AMOUNT 3 TIMES A DAY NEEDED 07/11/2022 Activedigoxin 0.125 mg oral tablet (20 sources)Cardiac GlycosideStart: 59-87-1581eioe 1 tablet by mouth once daily digoxin 125 mcg (0.125 mg) Tab See Instructions, TAKE 1 TABLET BY MOUTH EVERY DAY, # 90 tab(s), Refills(s) 3, Pharmacy: [id number], 147, cm, 02/13/24 10:53:00 EST, Height/Length Dosing, 59.9, kg, 02/13/24 10:53:00 EST, Weight Dosing Start Date: 04/01/24 Status: Ordered Quantity: 90.0 Unit: tab(s) Repeat number: 1Start: 03-21-2023 End: 33-12-8229fcsw 1 tablet by mouth once dailydigoxin 125 mcg (0.125 mg) Tab 125 mcg = 1 tab(s), Oral, Daily, X 90 day(s), # 90 tab(s), Refills(s) 3, Pharmacy: [facility]/pharmacy #[id number], 148, cm, 03/21/23 8:51:00 EST, Height/Length Dosing, 64, kg, 03/21/23 8:51:00 EST, Weight Dosing Start Date: 03/21/23 Stop Date: 03/15/24 Status: OrderedStart: 63-73-0567vrhf 1 tablet by mouth once daily digoxin 125 mcg (0.125 mg) Tab 125 mcg = 1 tab(s), Oral, Daily, Refills(s) 0 Start Date: 07/05/22 Status: OrderedStart: 30-97-6026nscx 1 tablet by mouth once daily in the morningDigoxin 125 mcg tablet Active 125 MCG PO Every morning July 10, 2018 12:00am Complies with drug therapyDigoxin Activefamotidine 40 mg oral tablet (14 sources)Histamine-2 Receptor AntagonistStart: 93-12-8999gyzmdayjhl (Pepcid) 40 MG tablet Take 40 mg by mouth. 07/05/2022 ActiveICaps AREDS 2 (3 sources)Start: 63-68-7995KKybe AREDS 2 See Instructions, Refill(s) 0, take 2 orally daily Start Date: 07/05/22 Status: Orderedlevothyroxine sodium 0.05 mg oral tablet (20 sources)l-ThyroxineStart: 85-69-3254pkum 1 tablet by mouth once daily levothyroxine 50 mcg (0.05 mg) Tab See Instructions, TAKE 1 TABLET BY MOUTH EVERY DAY, # 90 tab(s),Refills(s) 1, [id number], cm, 05/20/24 10:52:00 EDT, Height/Length Dosing, 58.5, kg, 05/20/24 10:52:00 EDT, Weight Dosing Start Date: 05/20/24 Status: Ordered Quantity: 90.0 Unit: tab(s) Repeat number: 2Start: 15-28-1155fygi 1 tablet by mouth once dailylevothyroxine 50 mcg (0.05 mg) Tab See Instructions, TAKE 1 TABLET BY MOUTH EVERY DAY, # 90 tab(s),Refills(s) 1, Pharmacy: [id number], 147, cm, 09/19/23 10:15:00 EDT, Height/Length Dosing, 61.8, kg, 09/19/23 10:15:00 EDT, Weight Dosing Start Date: 10/18/23 Status: OrderedStart: 97-35-7532krms 1 tablet by mouth once daily levothyroxine 50 mcg (0.05 mg) Tab 50 mcg = 1 tab(s), Oral, Daily, # 90 tab(s), Refills(s) 1, [id number] 148, cm, 03/21/23 8:51:00 EST, Height/Length Dosing, 64, kg, 03/21/23 8:51:00 EST, Weight Dosing Start Date: 03/21/23 Status: OrderedStart: 97-39-4674dyfo 1 tablet by mouth once daily levothyroxine 50 mcg (0.05 mg) Tab 50 mcg = 1 tab(s), Oral, Daily, Refills(s) 0 Start Date: 07/05/22 Status: OrderedStart: 14-80-6973sbww 1 tablet by mouth once daily in the morningLevothyroxine 50 mcg tablet Active 50 MCG PO Every morning July 10, 2018 12:00am Complies with drugtherapyLevothyroxine Sodium Active meclizine hydrochloride 25 mg oral tablet (17 sources)AntiemeticStart: 85-80-8320bycu 1 tablet by mouth three times daily as needed for dizzinessMeclizine 25 mg tablet Active 25 MG PO Three times daily as needed for dizziness September 04, 2024 12:00am Complies with drug therapyStart: 94-09-3473lwlb 1 tablet by mouth every eight hours as needed for dizziness meclizine 25 mg Tab 25 mg = 1 tab(s), Oral, q8hr, as needed for dizziness, # 30 tab(s), Refills(s) 0, Pharmacy: [facility]/pharmacy #[id number], 147.8, cm, 07/26/22 15:28:00 EDT, Height/Length Dosing, 63.6, kg, 07/26/22 15:28:00 EDT, Weight Dosing Start Date: 08/25/22 Status: Ordered Quantity: 30.0 Unit: tab(s) Repeat number: 1 methylPREDNISolone (14 sources)CorticosteroidStart: 55-69-7953qbfzrtYTCAPZYjgnpw (Medrol Dospak) 4 MG tablets TAKE 6 TABLETS ON DAY 1 DIRECTED ON PACKAGE AND DECREASE BY 1 TAB EACH DAY FOR A TOTAL OF 6 DAYS 09/16/2022 Ykseao75 hr metoprolol succinate 25 mg extended release oral tablet (20 sources)beta-Adrenergic BlockerStart: 36-45-9327wambmgtqye succinate XL (Toprol-XL) 25 MG 24 hr tablet metoprolol succinate ER 25 mg tablet,extended release 24 hr 07/05/2022 ActiveStart: 07-10-2018 End: 33-08-5922lptk 1 tablet by mouth once daily in the eveningMetoprolol Succinate 25 mg tablet extended release 24 hr Active 25 MG PO Every evening July 10, 2018 12:00am Complies with drug therapymetoprolol tartrate (Lopressor) 25 MG tablet 1 (one) time each day at the same time. ActiveMetoprolol Tartrate Not-Takingmontelukast 10 mg oral tablet (20 sources)Leukotriene Receptor AntagonistStart: 86-24-2239pnrq 1 tablet by mouth once daily in [...] 25 mg oral tablet (20 sources)Aldosterone AntagonistStart: 24-36-0783Rtmbxxscntqdff 25 mg tablet Active 12.5 MG PO Every morning 45 90 0 December 04, 2024 11:23am Complies with drug therapyStart: 45-08-3549mvwkyegbphrahx (Aldactone) 25 MG tablet every 12 (twelve) hours. 07/05/2022 ActiveStart: 07-10-2018 End: 15-76-0996sant 1 tablet by mouth once daily in the morningSpironolactone 25 mg tablet Discontinued 25 MG PO Every morning July 10, 2018 12:00am December 04, 2024 11:24amSpironolactone ActiveTylenol Extra Strength (4 sources)Start: 31-56-1618nxwu 500 mg by mouth twice daily as needed for pain Tylenol Extra Strength 500 mg, Oral, BID, PRN as needed for pain, Refills(s) 0 Start Date: 09/08/22 Status: Ordered Repeat number: 1Start: 23-22-4005eczt 500 mg by mouth twice daily as needed for painTylenol Extra Strength 500 mg, Oral, BID, PRN as needed for pain, Refills(s) 0 Start Date: 09/08/22 Status: OrderedVit C,B-Tw-Gsaui-Lutein-Zeaxan (Preservision Areds-2) 250-90-40-1 mg capsule (10 sources)Start: 56-85-0062Itk C,L-Db-Jmrha-Lutein-Zeaxan (Preservision Areds- 2) 250-90-40-1 mg capsule Active 1 TAB PO Twice daily November 01, 2024 12:00am Complies with drug therapyStart: 11-01-2024 Completed/Discontinued Medications MedicationDrug Class(es)DatesSig (Normalized)Sig (Original)acetaminophen 325 mg / HYDROcodone bitartrate 5 mg oral tablet (12 sources)Opioid AgonistStart: 09-05-2024 End: 00-42-1049rgub 1 tablet by mouth three times daily as needed for pain Hydrocodone-Acetaminophen 5-325 mg tablet Discontinued 1 TAB PO Three times daily as needed for pain 6 2 0 September 05, 2024 November 01, 2024 10:44am Radiculopathy Radiculopathy, site unspecifiedAreds 2 1 tab (16 sources)Start: 07-10-2018 End: 75-85-5618ehhe 2 tablets by mouth twice dailyAreds 2 1 tab Discontinued 2 TAB PO Twice daily July 10, 2018 12:00am July 13, 2018 10:17amStart: 07-10-2018 End: 08-34-5597odef 2 tablets by mouth twice dailyAreds 2 1 tab Discontinued 2 TAB PO Twice daily July 09, 2018 11:00pm July 13, 2018 9:17amcefadroxil 500 mg oral capsule (9 sources)Cephalosporin AntibacterialStart: 11-07-2024 End: 95-88-9932yvtq 1 capsule by mouth every twelve hoursCefadroxil 500 mg capsule Discontinued 500 MG PO Q12H 14 7 0 November 07, 2024 12:00am December 02, 2024 10:51am DO NOT RECONCILE UNTIL DOS:11/19/2024 MED TO BED cholecalciferol 1.25 mg oral capsule (13 sources)Vitamin DStart: 09-04-2024 End: 17-15-2017oocx 1 capsule by mouth two times weeklyCholecalciferol (Vitamin D3) 1,250 mcg (50,000 unit) capsule Discontinued 1250 MCG PO Twice a Week September 04, 2024 12:00am November 01, 2024 10:44amdocusate sodium 50 mg / sennosides, senior care 8.6 mg oral tablet (9 sources)Start: 11-07-2024 End: 17-56-7904amho 2 tablets by mouth once dailySennosides-Docusate Sodium (Senokot-S) 8.6-50 mg tablet Discontinued 2 TAB PO daily 60 30 0 November 07, 2024 12:00am December 02, 2024 10:51am DO NOT RECONCILE UNTIL DOS:11/19/2024 MED TO BEDergocalciferol 1.25 mg oral capsule (10 sources)Provitamin D2 CompoundStart: 09-13-2024 End: 67-24-9933ycqe 1 capsule by mouth every weekErgocalciferol (Vitamin D2) 1,250 mcg (50,000 unit) capsule Discontinued 1250 MCG PO Q7D 8 60 0 September 13, 2024 12:00am November 01, 2024 10:44amondansetron 4 mg oral tablet (9 sources)Serotonin-3 Receptor AntagonistStart: 11-07-2024 End: 35-58-7936zcbl 1 tablet by mouth every eight hours as needed for nausea Ondansetron Hcl 4 mg tablet Discontinued 4 MG PO Q8H as needed for Nausea 9 0 November 07, 2024 12:00am December 04, 2024 11:02am DO NOT RECONCILE UNTIL DOS:11/19/2024 MED TO BEDoxyCODONE hydrochloride 5 mg oral tablet (9 sources)Opioid AgonistStart: 11-07-2024 End: 86-33-4557xouk 1 tablet by mouth every four hours [...] tablet (14 sources)Proton Pump InhibitorStart: 11-07-2024 End: 17-29-9328ulod 1 tablet by mouth once dailyPantoprazole (Protonix) 20 mg tablet,delayed release (DR/EC) Discontinued 20 MG PO daily 35 35 0 December 02, 2024 10:49am December 04, 2024 11:03am DO NOT RECONCILE UNTIL DOS:11/19/2024 MED TO BEDpolyethylene glycol 3350 16317 mg powder for oral solution (9 sources)Osmotic LaxativeStart: 11-07-2024 End: 31-13-3605Mdhrpnounnyx Glycol 3350 (Miralax) 17 gram/dose powder Discontinued 17 GM PO daily 7 7 0 November 07, 2024 12:00am December 02, 2024 10:51am 1 packed mixed with 8 ounces of fluid. DO NOT RECONCILE UNTIL DOS:11/19/2024 MED TO BEDpredniSONE 10 mg oral tablet (20 sources)Start: 11-07-2024 End: 52-71-4785tnmw 1 tablet by mouth once dailyPrednisone 10 mg tablet Discontinued 10 MG PO daily 10 10 0 November 07, 2024 12:00am November 19, 2024 12:51pm DO NOT RECONCILE UNTIL DOS:11/19/2024 MED TO BEDStart: 09-05-2024 End: 17-12-3405zrju 1 tablet by mouth once dailyPrednisone 20 mg tablet Discontinued 20 MG PO Daily 5 5 0 September 05, 2024 12:00am November 01, 2024 1 0:44amtraMADol hydrochloride 50 mg oral tablet (9 sources)Opioid AgonistStart: 11-07-2024 End: 30-54-8095axxm 1 tablet by mouth every six hours as needed for painTramadol 50 mg tablet Discontinued 50 MG PO Q6H as needed for Pain 40 7 0 November 07, 2024 12:00am December 02, 2024 10:51am Primary osteoarthritis of right hip Unilateral primary osteoarthritis, right hip DO NOT RECONCILE UNTIL DOS:11/19/2024 MED TO BEDVit C,R-Xk-Trulb-Lutein-Zeaxan (Preservision Areds-2) 742-743-52-1 no-nhqk-ol-mg Capsule (16 sources)Start: 07-13-2018 End: 53-04-2200qfnd 1 capsule by mouth twice dailyVit C,Y-Si-Urtde-Lutein-Zeaxan (Preservision Areds-2) 696-414-01-1 zw-oexq-rz-mg Capsule Discontinued 2 TAB PO Twice daily July 13, 2018 12:00am September 04, 2024 8:22amStart: 83-75-1552cmwj 1 capsule by mouth twice dailyVit C,C-Js-Dinwf-Lutein-Zeaxan (Preservision Areds- 2) 988-865-09-1 qy-snsr-mw-mg Capsule Active 2 TAB PO Twice daily July 13, 2018 12:00amStart: 82-26-3050ktzi 1 capsule by mouth twice dailyVit C,Y-Ha-Mgiqz-Lutein-Zeaxan (Preservision Areds-2) 331-835-66-1 vr-pipg-cd-mg Capsule Active 2 TAB PO Twice daily July 12, 2018 11:00pm Problems Active Problems Problem ClassificationProblemDateDocumented DateEpisodic/ChronicAbdominal pain (6 sources)Right upper quadrant pain; Translations: [Right upper quadrant pain] EpisodicAcquired foot deformities (4 sources)Mkjy-shlf28-48mizk81-58-9523LfetuvysKqpujaioepfxth/social admission (19 sources)Bereavement; Translations: [Other reduced mobility]Onset: 11-19-2024 86-40-0313QazueovfAbndzx (4 sources)Cnyiab80-91-0733JauvhylOafhan; other and unspecified primary (3 sources)Squamous cell carcinoma in situOnset: hronic Cardiac dysrhythmias (20 sources)Irregular heart beat; Translations: [Cardiac arrhythmia, unspecified]83-96-5901XojtyigUmupynumkp associated with dizziness or vertigo (5 sources)Benign paroxysmal vertigo, unspecified ear; Translations: [Labyrinthitis]Onset: 03-79-8248QqqperalFgwwnswluw disorders (20 sources)Left bundle branch block; Translations: [Left bundle-branch block, unspecified]11-60-0056PwaiqojElewiqbui of lipid metabolism (4 sources)Racljvnwixrhotvkwqhu33-96-2873DnrafsdFgvygydlqfbufm and diverticulitis (4 sources)Diverticular pxgeaev12-51-1345IzbxztmYvjryeqvq hypertension (20 sources)Hypertensive disorder; Translations: [Essential hypertension]Onset: 365491-84-3483FascrkeXusrl valve disorders (6 sources)Nonrheumatic aortic (valve) stenosis; Translations: [Rheumatic disorders of both mitral and aortic valves]Onset: 97-73-4472KvbtzdbLgcll valve disorders (4 sources)Heart oyukhy30-44-0363BndrvzmqGvjimqb on above:bicuspid aortic valve Hypertension with complications and secondary hypertension (2 sources)Hypertensive heart disease without heart failure; Translations: [Hypertensive heart disease withoutheart failure]Onset: 83-50-0962Pzmairj Inflammation; infection of eye (except that caused by tuberculosis or sexually transmitteddisease) (18 sources)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; Translations: [Unspecified blepharitis right eye, upper and lower eyelids]Onset: 999399-19-7819WhyxbcdnRpfdqbjhx of unspecified nature or uncertain behavior (4 sources)Neoplasm of uncertain behavior of skin; Translations: [Neoplasm of uncertain behavior of skin]53-03-7464ZnbsqwrbWwnbpcqkytjckg (20 sources)Osteoarthritis of hip; Translations: [Osteoarthritis of right hip joint]Onset: 172435-64-3622EnefxscDhrhwtspksci (2 sources)Osteoporosis; Translations: [Age-related osteoporosis without current pathological fracture]Onset: 099616-93-1737ZvaorziXnuil acquired deformities (1 source)Deformity of bydi00-45-0335AdbjmydiWfcin aftercare (6 sources)Patient encounter status; Translations: [Aftercare following joint replacement surgery]75-35-4525OrxkhsaSdakw aftercare (1 source)Aftercare following joint replacement surgery; Translations: [Aftercare following joint replacementsurgery]Onset: 53-66-3915WsbiaeuDubhy bone disease and musculoskeletal deformities (3 sources)Aderyfiqxj17-58-3453WqkhdmezHdxja APPLIANCE TESTER infection and poliomyelitis (20 sources)Post poliomyelitis syndrome; 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] Onset: 307265-68-7248WkemtigHhdcm APPLIANCE TESTER infection and poliomyelitis (20 sources)H/O: poliomyelitis; Translations: [Personal history of poliomyelitis]Onset: 095337-64-9588LbdjgnozHukxv connective tissue disease (20 sources)History of total hip arthroplasty; Translations: [Presence of right artificial hip joint]51-59-9805RnrfwbfHnaey connective tissue disease (1 source)Presence of right artificial hip joint; Translations: [Presence of right artificial hip joint]Onset: 93-13-4357YepwzewUvrkg connective tissue disease (2 sources)Pain of toe of right foot; Translations: [Pain in right toe(s)] 51-20-8820ZixxykvcMvqee eye disorders (18 sources)Dry eyes; Translations: [Dry eye syndrome of bilateral lacrimal glands]Onset: 023646-65-9480IaldvqcdGvohy gastrointestinal disorders (18 sources)Dysphagia; Translations: [Dysphagia, unspecified]82-91-3634Nhrvuyxq Comment on above:Problem List clean-up per request of Phys. EHR CmteOther hereditary and degenerative nervous system conditions (4 sources)Restless iwtp95-09-3441HfyneexPdzxj liver diseases (20 sources)Steatosis of liver; Translations: [Fatty (change of) liver, not elsewhere classified]33-24-6993MqdtzojOcvgq liver diseases (5 sources)Fatty (change of) liver, not elsewhere classified; Translations: [Other chronic nonalcoholic liver disease]Onset: 14-22-1658YmbiocwJruix nervous system disorders (1 source)Disorder of the autonomic nervous system, unspecified; Translations: [DISORDER AUTONOMIC NERVOUS SYS UNS]Onset: 23-82-9289JkrkcnbNybmh nervous system disorders (1 source)Other disorders of autonomic nervous system; Translations: [OTH DISORDERS AUTONOMIC NERVOUS SYS]Onset: 12-02-4669KsrvifdPoshm nervous system disorders (2 sources)Other chronic pain; Translations: [Other chronic pain]Onset: 68-42-2445FufrvpdVsqcr non-traumatic joint disorders (20 sources)Hip pain; Translations: [Pain in right hip]63-43-9896JdpzgukiRiwhq non-traumatic joint disorders (2 sources)Pain in left shoulder; Translations: [Pain in left shoulder]Onset: 70-42-6075JmufnpsfGqarl non-traumatic joint disorders (3 sources)Pain in right hip; Translations: [Pain in right hip]Onset: 07-24-2024 EpisodicOther nutritional; endocrine; and metabolic disorders (3 sources)Gvofuujzlm86-01-4037YdljrppeGhymo screening for suspected conditions (not mental disorders or infectious disease) (1 source)Abnormal electrocardiogram [ECG] [EKG]; Translations: [Abnormal electrocardiogram [ECG] [EKG]]Onset: 87-58-7280DvsshzvqGsqby skin disorders (4 sources)Nail dystrophy; Translations: [NAIL DYSTROPHY]Onset: 06-08-2022 EpisodicOther upper respiratory disease (1 source)Allergic uuozhcnu71-74-0452WvpghnkVihti upper respiratory disease (3 sources)Allergic rhinitis due to pollen; Translations: [Allergic rhinitis due to pollen]31-93-8621ZrdluokUjnob upper respiratory disease (2 sources)Nasal oguuseezky96-45-8630OurxvixuIycfl upper respiratory infections (1 source)Acute upper respiratory irawtwifc41-19-5346JzupbcsnVcuy-; endo-; and myocarditis; cardiomyopathy (except that caused by tuberculosis or sexually transmitted disease) (1 source)Cardiomyopathy, unspecified; Translations: [Cardiomyopathy, unspecified]Onset: 33-97-9932CttdszhByywzwjtod and visceral atherosclerosis (1 source)Peripheral vascular disease, unspecified; Translations: [PERIPHERAL VASCULAR DISEASE UNS]Onset: 04-15-8939ZthpxkxCcmtncup codes; unclassified (1 source)Other specified health status; Translations: [Other specified health status]Onset: 97-91-9274FyfpkuyrCinhfhe detachments; defects; vascular occlusion; and retinopathy (18 sources)Nonexudative age-related macular degeneration; Translations: [Nonexudative age-related macular degeneration, bilateral, advanced atrophic with subfoveal involvement]Onset: 388135-98-0535DnwannjWeohxpvhzso; intervertebral disc disorders; other back problems (12 sources)Cervical spondylosis; Translations: [Lumbar spondylosis]07-05-2022 ChronicThyroid disorders (4 sources)Uqlxmwdxogpbwa63-97-7228EfultskKzkaovlvzvue (3 sources)COUGH, UNSPECIFIED; Translations: [COUGH, UNSPECIFIED]Onset: 74-47-2596Ookjsfawcydp (3 sources)Pain of knee gyvjrq37-35-9115Djhqypvncivl (3 sources)Pain of right shoulder sskcuk18-28-3865Yrbhrixtvvda (10 sources)Follow up with rehab physician as neededUnclassified (10 sources)Call to schedule follow up appointment with PCP after dischargeViral infection (4 sources)Verruca plantaris; Translations: [Plantar wart]87-60-6854Dmsqznmu Viral infection (1 source)COVID-19; Translations: [COVID-19]Onset: 09-10-2021 Past or Other Problems Problem ClassificationProblemDateDocumented DateEpisodic/ChronicMycoses (2 sources)Tinea unguium; Translations: [Dermatophytosis, unspecified]Onset: 78-48-1819NsympzwiYxnvp aftercare (2 sources)Encounter for therapeutic drug level monitoring; Translations: [Encounter for therapeutic drug level monitoring]Onset: 18-21-1529GsylicwrRpbyh aftercare (3 sources)Other retirement (current) drug therapy; Translations: [Other retirement (current) drug therapy]Onset: 38-64-9904TpjdpvcrTfnya circulatory disease (4 sources)Other specified symptoms and signs involving the circulatory and respiratory systems; Translations:[OTH SPEC SX SIGNS INVLV CIRC RS]Onset: 30-72-1512OovbaipcEvcpy non-traumatic joint disorders (3 sources)Pain in right shoulder; Translations: [Pain in right shoulder]Onset: 40-55-4163LewyakkaVtbik skin disorders (1 source)Onychogryphosis; 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]Onset: 09-02-2021 EpisodicSpondylosis; intervertebral disc disorders; other back problems (15 sources)Sciatica; Translations: [Nerve root disorder]Onset: 09-05-2024 53-27-3557GitujzusJwvnrtdzghoj (1 source)COUGH, UNSPECIFIED; Translations: [COUGH, UNSPECIFIED]Onset: 09-07-2021 Results Test NameValueInterpretationReference RangeFacilityAmbulatory Visit Summaryon 02-46-9035Tazxbdkvta Visit SummaryAmbulatory Visit Summary JASONUNA :1940 Visit [...] PM EST With: Stew Cottrell DO Where: [place] [address]- Monday 1:40 PM EST With: Stew Cottrell DO Where: [place] [id number]- Monday2025 11:00 AM EDT With: Where: [place] [id number]- You Need to Schedule the Following Appointments [...] If you are n (more content not included)...[facility] CenterAmbulatory Visit Summaryon 32-56-5613Sjpgohlatt Visit SummaryAmbulatory Visit Summary UNA GOMEZ :1940 [...] PM EST With: Stew Cottrell DO Where: [facility] [address] [place] [address]- Monday2025 11:00 AM EDT With: Where: [facility] [address] [address]- You Need to Schedule the Following Appointments [...] signed up for this yet, please contact Taodyne at [phone] to get signed up today. Language Information Language assistance services are available as needed. [facility] Medicine Office/Clinic Noteon 64-98-4660Zpiqyp Medicine Office/Clinic NoteFacape cod hospital Medicine Office/Clinic Note HPI Staff Pt [...] # 21 tab(s), Refills(s) 0, Pharmacy: [facility]/pharmacy #[id number], 147, cm, 01/10/25 14:43:00 EST, Height/Length Dosing, 56.6, kg, 01/10/25 14:43:00 EST, Weight Dosing Orders: predniSONE, 10 mg = 1 tab(s), Oral, Daily, X 7 day(s), # 7 tab(s), Refills(s) 0, Pharmacy: [facility]/pharmacy #[id number], 147, cm, 01/10/25 14:43:00 EST, [...] 50,000 intl units (1.25 mg) oral capsule, 81995 International_Unit= 1 cap(s), Oral, 2x/Wk, 3 refills [...] virus vaccine, inactivated 12/14/2022 Recorded SARS-CoV-2 (COVID-19) mRNAMUL.ORD![id number] 02/10/2022 Recorded influenza (more content not included)...[facility] CenterComment on above:Result Comment: Electronically Signed By: Stew Cottrell DO\.br\Date and Time Signed: 01/10/25 15:59 [facility] Medicine Office/Clinic Noteon 88-80-5000By[facility]uti Medicine Office/Cl[facility] NoteM[facility] HPI Staff Pt is presenting to establish care Establish Care: History: Any previous diagnosis: none 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 Hernandez in [place]. Has been getting tired more easily since [...] Patient follows with cardiology and GI at [facility]. She also follows with Dr. Louise for [...] Instructions, 4 refills d (more content not included)...[facility] CenterComment on above:Result Comment: Electronically Signed By: Stew Cottrell DO\.br\Date and Time Signed: 01/09/25 11:29 ESTAmbulatory Visit Summaryon 43-59-3732Gnbfxxnayr Visit SummaryAmbulatory Visit Summary UNA GOMEZ :1940 [...] PM EST With: Stew Cottrell DO Where: [address] [address]- Monday2025 11:00 AM EDT With: Where: [address] [address]- You Need to Schedule the Following Appointments [...] signed up for this yet, please contact Taodyne at [phone] to get signed up today. Language Information Language assistance services are available as needed. [facility] CenterX-ray reportOrdered By: Jamarcus Meneses on 34-22-2866Dvmsk [facility] [address] [place] [address] XRay Report Signed Patient: Una Gomez MR#: [id number] : 1940 Acct:[id number] Age/Sex: 84 / F ADM Date: 5 Loc: [facility] Room: Type: [facility] Attending Dr: Fred Hernandez II, MD [...] fracture identified. Severe degenerative changes left hip. Cesm-vo-boffgbkj degenerative changes sacroiliac joints. Degenerative changes lumbosacral junction. XR/XR hip RT min 2V(w/wo pelvis)* IMPRESSION: Satisfactory right total hip arthroplasty. Severe degenerative changes left hip . Impression dictated by: Jamarcus Meneses M.D. 01/03/2025 6:01 PM Dictation Location: [facility] Transcribed By: [facility] 01/03/251800 Dictated By: Jamarcus Meneses MD 01/03/251756 Signed By: 01/03/251800 [facility] Work Phone: XR hip RT min 2V(w/wo pelvis)*on 68-52-6516PX hip RT min 2V(w/wo pelvis)*[facility] [address] [place] [address] XRay Report Signed Patient: Una Gomez MR#: [id number] : 1940 Acct:[id number] Age/Sex: 84 / F ADM Date: 01/03/25 Loc: [facility] Room: Type: [facility] Attending Dr: Fred Hernandez II, MD [...] fracture identified. Severe degenerative changes left hip. Oobd-lk-eakddmmc degenerative changes sacroiliac joints. Degenerative changes lumbosacral junction. XR/XR hip RT min 2V(w/wo pelvis)* IMPRESSION: Satisfactory right total hip arthroplasty. Severe degenerative changes left hip . Impression dictated by: Jamarcus Meneses M.D. 01/03/2025 6:01 PM Dictation Location: [place] [address] Transcribed By: [facility] 01/03/251800 Dictated By: Jamarcus Meneses MD 01/03/251756 Signed By: 01/03/251800[facility] Physician GroupAmbulatory Visit Summaryon 52-55-2709Ufstavjtyu Visit SummaryAmbulatory Visit Summary UNA GOMEZ :1940 [...] 1:40 PM EST With: Marlee Martinez Where: [address] [address]- Monday2025 11:00 AM EDT With: Where: [address] [address]- Medications What How Much When Why Instructions [...] signed up for this yet, please contact Taodyne at [phone] to get signed up today. Language Information Language assistance services are available as needed. [facility] Medicine Office/Clinic Noteon 24-21-2195Gcbmtc Medicine Office/Clinic NoteFacape cod hospital Medicine Office/Clinic Note HPI Staff TCM: 14 day Hospital: [facility] Admission date: 11/25 Discharge date:12/02 Symptoms the [...] data available Patient Education Total Hip Replacement, Dyrf-ug-Ikls Problem List/Past Medical History Ongoing BMI 27.0-27.9,adult [...] 50,000 intl units (1.25 mg) oral capsule, 91656 International_Unit= 1 cap(s), Oral, 2x/Wk, 3 refills [...] virus vaccine, inactivated 12/14/2022 Recorded SARS-CoV-2 (COVID-19) mRNAMUL.ORD![id number] 02/10/2022 Recorded influenza virus vaccine, inactivated 12/27/2021 Recorded SARS-CoV-2 (COVID-19) mRNA-1273 vaccine 03/17/2021 Recorded 2022-07-04: TPV80 influenza virus vaccine, inactivated 02/10/2021 Recorded pneumococca (more content not included)...[facility] Comment on above:Result Comment: Electronically [...] feel free to contact me at extension [phone]. Thank you! Sapphire Goel LPN Clinical Email Marketing Assistant [place] [address] Extension: [phone] [email or web address] From: Marlee Martinez To: Sapphire Goel; Sent: 12/12/2024 08:35:38 EDT Subject: RE: Pre-Visit Planning Caller Name: UNA GOMEZ; Caller Number: Forrest , M moderate persistent [phone] Case Information Case Priority: None Programs: -- Referral Source: [employer] Programmer Referral Reason: Care coordination Case Type: Transition [...] 50,000 intl units (1.25 mg) oral capsule, 00681 International_Unit= 1 cap(s), Oral, 2x/Wk, 3 refills [...] Care Plan Progress Note Admit Date: 11/25/24 [facility] Date of Discharge: 12/02/24 Follow-up appointment scheduled? [...] will be doing out patient PT at [facility] Called patient for initial Transitional Care Management [...] time of call. Patient underwent surgery at [facility], she was admitted there 11/19-11/25, prior to transitioning to the rehab unit. Patient states she is feeling 'good.' Notes she is ambulating without difficulty, she only uses walker if needed. She will complete PT at [facility] out patient clinic. Notes her appetite is [...] Method: Phone c (more content not included)...Normal [facility] CenterComplete Blood Count Auto Diffon 97-75-0720Eubgauvdy (Bld) [#/Vol]0.0 10*3/uLNormal0.0-0.2The [facility] Physician GroupComment on above:Result Comment: PERFORMED BY: [facility] [address] [place] [id number] PATHOLOGIST MEDIA MONITOR BRENT LOPEZ M.D.Performed By: #### CBC, CMP, PAB ####[place] [address] USABasophils/100 WBC (Bld)0.3 % Normal.The [facility] Physician GroupComment on above:Performed By: #### CBC, CMP, PAB ####[place] [address] USAEosinophils (Bld) [#/Vol]0.3 10*3/uLNormal0.0-0.45The [facility] Physician GroupComment on above:Performed By: #### CBC, CMP, PAB ####[place] [address] USAEosinophils/100 WBC (Bld)5.2 % Normal.The [facility] Physician GroupComment on above:Performed By: #### CBC, CMP, PAB ####[place] [address] USAErythrocyte distribution width (RBC) [Ratio]15.6 %High11.9-15.3The [facility] Physician GroupComment on above:Performed By: #### CBC, CMP, PAB ####[place] [address] USAHematocrit (Bld) [Volume fraction]28.8 %Low34.0-46.4The [facility] Physician GroupComment on above:Performed By: #### CBC, CMP, PAB ####[place] [address] USAHemoglobin (Bld) [Mass/Vol]9.9 g/dLLow 11.8-15.4The [facility] Physician GroupComment on above:Performed By: #### CBC, CMP, PAB ####[place] [address] USALymphocytes (Bld) [#/Vol]1.7 10*3/uLNormal1.00-4.8The [facility] Physician GroupComment on above:Performed By: #### CBC, CMP, PAB ####[place] [address] USALymphocytes/100 WBC (Bld)30.4 %Normal.The [facility] Physician GroupComment on above:Performed By: #### CBC, CMP, PAB ####[address]H (RBC) [Entitic mass]29.3 tnMnhmud55.7-34.3The [facility] Comment on above:Performed By: #### CBC, CMP, PAB ####[address] StreetMCV (RBC) [Entitic vol]85.5 fLNormal 80-100The [facility] Physician GroupComment on above:Performed By: #### CBC, CMP, PAB ####[address] Mean Corpuscular HGB Conc34.2 g/zPYarhbq80.0-35.0The [facility] Comment on above:Performed By: #### CBC, CMP, PAB ####[place] [address] USAMonocytes (Bld) [#/Vol]0.6 10*3/uL Normal0.0-0.8The [facility] Physician GroupComment on above:Performed By: #### CBC, CMP, PAB ####[place] [address] USAMonocytes/100 WBC (Bld)11.0 %Normal.The [facility] Comment on above:Performed By: #### CBC, CMP, PAB ####[place] [address] USANeutrophils (Bld) [#/Vol]3.0 10*3/uL Normal1.8-7.7The [facility] Physician GroupComment on above:Performed By: #### CBC, CMP, PAB ####[place] [address] USANeutrophils/100 WBC (Bld)53.1 %Normal.The [facility] Comment on above:Performed By: #### CBC, CMP, PAB ####[place] [address] USANRBC%0.1 /100{WBC}Normal0-0.5The [facility] Physician GroupComment on above:Performed By: #### CBC, CMP, PAB ####[place] [address] [place] Platelet mean volume (Bld) [Entitic vol]7.3 fLNormal6.3-10.7The [facility] Physician GroupComment on above:Performed By: #### CBC, CMP, PAB ####[place] [address] USAPlatelets (Bld) [#/Vol]233 10*3/oMCcdtvd454-044Ceu [facility] Physician GroupComment on above: Performed By: #### CBC, CMP, PAB ####[place] [address] USARBC (Bld) [#/Vol]3.37 10*6/uLLow3.60-5.00The [facility] Physician GroupComment on above:Performed By: #### CBC, CMP, PAB ####[place] [address] USAWBC (Bld) [#/Vol]5.6 10*3/uLNormal3.8-11.6The [facility] Physician GroupComment on above:Performed By: #### CBC, CMP, PAB ####[address] [address] USAWhite Blood Count5.6 [CFU]/mLNormal3.8-11.6The [facility] Physician GroupComment on above:Performed By: #### CBC, CMP, PAB ####[address] [address] [facility] Comprehensive Metabolic Panelon 62-73-3048Qhwyzdx [Mass/Vol]3.4 g/dLLow3.5-5.7 The [facility] Physician GroupComment on above:Performed By: #### CBC, CMP, PAB ####[place] [address] [facility] Albumin/Globulin [Mass ratio]1.5 {ratio}NormalThe [facility] Comment on above:Performed By: #### CBC, CMP, PAB ####[address] [address] USAALP [Catalytic activity/Vol]58 U/L Ftxlbz93-586Yma [facility] Physician GroupComment on above:Performed By: #### CBC, CMP, PAB ####[address] [address] USAALT [Catalytic activity/Vol]20 U/LNormal7-52The [facility] Physician GroupComment on above:Performed By: #### CBC, CMP, PAB ####[address] [address] USAAnion gap [Moles/Vol]10.0 mmol/LNormal6.0-15.0The [facility] Physician GroupComment on above:Performed By: #### CBC, CMP, PAB ####[address] [address] USAAST [Catalytic activity/Vol]29 U/KVqsvvw26-45Znz [facility] Physician GroupComment on above:Performed By: #### CBC, CMP, PAB ####[address] [address] USABilirubin [Mass/Vol]0.7 mg/dL Normal0.3-1.0The [facility] Physician GroupComment on above:Performed By: #### CBC, CMP, PAB ####[place] [address] [place] [address] USACalcium [Mass/Vol]8.8 mg/dLNormal8.6-10.3The [facility] Comment on above:Performed By: #### CBC, CMP, PAB ####[address] [address] USAChloride [Moles/Vol]106 mmol/LNormal 98-107The [facility] Physician GroupComment on above:Performed By: #### CBC, CMP, PAB ####[address] [address] [place] CO2 [Moles/Vol]26.1 mmol/NJsyvfh86.0-31.0The [facility] Physician GroupComment on above:Performed By: #### CBC, CMP, PAB ####[place] [address] USACreatinine [Mass/Vol]0.65 mg/dLNormal0.60-1.20 The [facility] Physician GroupComment on above:Performed By: #### CBC, CMP, PAB ####[place] [address] [place] Creatinine Clr Calc Qmxuwyhz06.56NormUF Health Jacksonville Physician GroupComment on above:Performed By: #### CBC, CMP, PAB ####[place] [address] USAGFR/1.73 sq M.predicted MDRD (S/P/Bld) [Vol rate/Area]mL/min/{1.73_m2}NormalThe [facility] Physician GroupComment on above: Performed By: #### CBC, CMP, PAB ####[address] [address] USAGlobulin (S) [Mass/Vol]2.2 g/dLNoMaria Parham Health Physician GroupComment on above:Performed By: #### CBC, CMP, PAB ####[place] [address] USAGlucose [Mass/Vol]114 mg/lXGnoz60-090Mhz [facility] [facility] Care Physician GroupComment on above:Result Comment: Random Glucose Reference Range is dependent on time and content of last meal. Glucose of more than 200 mg/dL in a nonstressed, ambulatory subject supports the diagnosis of Diabetes Mellitus. ADA recommended reference rangePerformed By: #### CBC, CMP, PAB ####[address] [place] [address] USAPotassium [Moles/Vol] 4.1 mmol/LNormal3.5-5.1The [facility] Physician GroupComment on above:Performed By: #### CBC, CMP, PAB ####[address] [place] [address] USAProtein [Mass/Vol]5.6 g/dLLow6.4-8.9The [facility] Physician GroupComment on above:Performed By: #### CBC, CMP, PAB ####[address] [address] USASodium [Moles/Vol]138 mmol/YCbttcl314-805Dfv [facility] Physician GroupComment on above:Performed By: #### CBC, CMP, PAB ####[address] [address] USAUrea nitrogen [Mass/Vol]10 mg/dLNormal7-25The [facility] Physician GroupComment on above:Performed By: #### CBC, CMP, PAB ####[address] [address] USAPrealbuminon 11-26-2024 Prealbumin [Mass/Vol]14.1 mg/dLLow17.0-34.0The [facility] Physician GroupComment on above:Result Comment: PERFORMED BY: [facility] [address] [facility]ITALSTosh[facility] [place] [id number] PATHOLOGIST MEDIA MONITOR BRENT LOPEZ M.D.Performed By: #### CBC, CMP, PAB ####[address] [address] USABasic Metabolic Panelon 74-80-0584Nsmvy gap [Moles/Vol]7.2 mmol/LNormal6.0-15.0The [facility] Physician GroupComment on above:Performed By: #### BMP, CBC ####[address] [place] [address] USACalcium [Mass/Vol]8.1 mg/dLLow 8.6-10.3The [facility] Physician GroupComment on above:Performed By: #### BMP, CBC ####[address] [place] [address] [place] Chloride [Moles/Vol]104 mmol/LYkolra02-274Mbr [facility] Physician GroupComment on above:Performed By: #### BMP, CBC ####[address] [place] [address] USACO2 [Moles/Vol]26.9 mmol/SRpadww92.0-31.0The [facility] Care Physician GroupComment on above:Performed By: #### BMP, CBC ####[address] [address] [place] Creatinine [Mass/Vol]0.58 mg/dLLow0.60-1.20The [facility] Care Physician GroupComment on above:Performed By: #### BMP, CBC ####[address] [place] [address] USACreatinine Clr Calc Slqvjsbk94.08NormUF Health Jacksonville Physician [facility] Health CenterComment on above:Result Comment: PERFORMED BY: [facility] [address] [place] [place] [id number] PATHOLOGIST MEDIA MONITOR BRENT LOPEZ M.D.Performed By: #### BMP, CBC ####[address] [address] USAGFR/1.73 sq M.predicted MDRD (S/P/Bld) [Vol rate/Area]mL/min/{1.73_m2}NormalThe [facility] Physician GroupComment on above:Performed By: #### BMP, CBC ####[address] [address] USAGlucose [Mass/Vol]99 mg/jCIuyxgu93-688Opt [facility] Physician GroupComment on above:Result Comment: Random Glucose Reference Range is dependent on time and content of last meal. Glucose of more than 200 mg/dL in a nonstressed, ambulatory subject supports the diagnosis of Diabetes Mellitus. ADA recommended reference rangePerformed By: #### BMP, CBC ####[place] [address] USAPotassium [Moles/Vol] 4.1 mmol/LNormal3.5-5.1The [facility] Physician GroupComment on above:Performed By: #### BMP, CBC ####[place] [address] USASodium [Moles/Vol]134 mmol/EKul533-973Cpf [facility] Comment on above:Performed By: #### BMP, CBC ####[place] [address] USAUrea nitrogen [Mass/Vol]12 mg/dLNormal 7-25The [facility] Physician GroupComment on above:Performed By: #### BMP, CBC ####[address] Complete Blood Count Auto Diffon 45-75-5689Dzelebiok (Bld) [#/Vol]0.0 10*3/uL Normal0.0-0.2The [facility] Physician [facility] Health CenterComment on above:Result Comment: PERFORMED BY: [address] [place] [place] [address] PATHOLOGIST MEDIA MONITOR BRENT LOPEZ M.D.Performed By: #### BMP, CBC ####[place] [address] USABasophils/100 WBC (Bld)0.2 %Normal.The [facility] Physician GroupComment on above:Performed By: #### BMP, CBC ####[place] [address] [place] Eosinophils (Bld) [#/Vol]0.1 10*3/uLNormal0.0-0.45The [facility] Comment on above:Performed By: #### BMP, CBC ####[place] [address] USAEosinophils/100 WBC (Bld)1.0 %Normal. The [facility] Physician GroupComment on above:Performed By: #### BMP, CBC ####[place] [address] [place] Erythrocyte distribution width (RBC) [Ratio]15.7 %High11.9-15.3The [facility] Physician GroupComment on above:Performed By: #### BMP, CBC ####[place] [address] USAHematocrit (Bld) [Volume fraction]29.4 %Low34.0-46.4The [facility] Physician GroupComment on above:Performed By: #### BMP, CBC ####[place] [address] USAHemoglobin (Bld) [Mass/Vol]10.0 g/dLLow11.8-15.4The [facility] Physician GroupComment on above:Performed By: #### BMP, CBC ####[place] [address] [place] Lymphocytes (Bld) [#/Vol]2.3 10*3/uLNormal1.00-4.8The [facility] Comment on above:Performed By: #### BMP, CBC ####[place] [address] USALymphocytes/100 WBC (Bld)27.8 %Normal. The [facility] Physician GroupComment on above:Performed By: #### BMP, CBC ####[place] [address] USAMCH (RBC) [Entitic mass]29.4 mxHddwej70.7-34.3The [facility] Physician GroupComment on above:Performed By: #### BMP, CBC ####[place] [address] USAMCV (RBC) [Entitic vol]86.6 jNIzrgff89-743Dyi [facility] Physician GroupComment on above:Performed By: #### BMP, CBC ####[address] USAMean Corpuscular HGB Conc33.9 g/xWMrjcwr26.0-35.0The [facility] Physician GroupComment on above:Performed By: #### BMP, CBC ####[place] [address] USAMonocytes (Bld) [#/Vol]0.9 10*3/uLHigh0.0-0.8 The [facility] Physician GroupComment on above:Performed By: #### BMP, CBC ####[place] [address] [place] Monocytes/100 WBC (Bld)10.3 %Normal.The [facility] Physician GroupComment on above:Performed By: #### BMP, CBC ####[place] [address] USANeutrophils (Bld) [#/Vol]5.1 10*3/uLNormal1.8-7.7The [facility] Physician GroupComment on above:Performed By: #### BMP, CBC ####[place] [address] [place] Neutrophils/100 WBC (Bld)60.7 %Normal.The [facility] Physician GroupComment on above:Performed By: #### BMP, CBC ####[place] [address] USANRBC%0.0 /100{WBC}Normal0-0.5The [facility] Physician GroupComment on above:Performed By: #### BMP, CBC ####[place] [address] USAPlatelet mean volume (Bld) [Entitic vol]7.4 fLNormal6.3-10.7The [facility] Physician GroupComment on above: Performed By: #### BMP, CBC ####[place] [address] USAPlatelets (Bld) [#/Vol]174 10*3/sMFcabmf803-287Pkf [facility] Physician GroupComment on above:Performed By: #### BMP, CBC ####[facility] [id number] USARBC (Bld) [#/Vol]3.39 10*6/uLLow3.60-5.00The [facility] Physician GroupComment on above:Performed By: #### BMP, CBC ####[facility] [address] [place] [address] USAWBC (Bld) [#/Vol]8.4 10*3/uLNormal3.8-11.6The [facility] Physician GroupComment on above:Performed By: #### BMP, CBC ####[address] USAWhite Blood Count8.4 [CFU]/mLNormal3.8-11.6The [facility] Physician GroupComment on above:Performed By: #### BMP, CBC ####[place] [address] USABasic Metabolic Panelon 10-87-3401Bqebg gap [Moles/Vol]10.0 mmol/LNormal6.0-15.0The [facility] Physician GroupComment on above:Performed By: #### BMP, CBC #### [facility] [address] [place] [address] USACalcium [Mass/Vol]8.7 mg/dLNormal8.6-10.3The [facility] Physician GroupComment on above:Performed By: #### BMP, CBC #### [facility] [address] [place] [address] USAChloride [Moles/Vol]102 mmol/SIxtbae57-373Zqq [facility] Physician GroupComment on above:Performed By: #### BMP, CBC #### [facility] [address] [place] [address] USACO2 [Moles/Vol]27.0 mmol/QOahamm41.0-31.0The [facility] Physician GroupComment on above:Performed By: #### BMP, CBC #### [facility] [address] [place] [address] USACreatinine [Mass/Vol]0.61 mg/dLNormal0.60-1.20The [facility] Physician GroupComment on above:Performed By: #### BMP, CBC #### [place] [address] USACreatinine Clr Calc Ieghfryu83.08NormalThe [facility] Physician GroupComment on above:Result Comment: PERFORMED BY: [place] [address] PATHOLOGIST MEDIA MONITOR BRENT LOPEZ M.D.Performed By: #### BMP, CBC #### [place] [address] USAGFR/1.73 sq M.predicted MDRD (S/P/Bld) [Vol rate/Area] mL/min/{1.73_m2}NormalThe [facility] Physician GroupComment on above:Performed By: #### BMP, CBC #### [place] [address] USAGlucose [Mass/Vol]139 mg/aEMsvf69-733Ztm [facility] Physician GroupComment on above:Result Comment: Random Glucose Reference Range is dependent on time and content of last meal. Glucose of more than 200 mg/dL in a nonstressed, ambulatory subject supports the diagnosis of Diabetes Mellitus. ADA recommended reference rangePerformed By: #### BMP, CBC #### [place] [address] USAPotassium [Moles/Vol]4.0 mmol/LNormal3.5-5.1The [facility] Physician GroupComment on above:Performed By: #### BMP, CBC #### [place] [address] USASodium [Moles/Vol]135 mmol/HJgs365-226Mkr [facility] Physician GroupComment on above:Performed By: #### BMP, CBC #### [place] [address] USAUrea nitrogen [Mass/Vol]12 mg/dLNormal7-25The [facility] Physician GroupComment on above:Performed By: #### BMP, CBC #### [place] [address] USAComplete Blood Count Auto Diffon 04-13-8997Urttujcqz (Bld) [#/Vol]0.0 10*3/uLNormal0.0-0.2The [facility] Physician GroupComment on above: Result Comment: PERFORMED BY: [place] [address] PATHOLOGIST MEDIA MONITOR BRENT LOPEZ M.D.Performed By: #### BMP, CBC #### [place] [address] USABasophils/100 WBC (Bld)0.1 %Normal.The [facility] Physician GroupComment on above:Performed By: #### BMP, CBC #### [place] [address] USAEosinophils (Bld) [#/Vol]0.0 10*3/uLNormal0.0-0.45The [facility] Physician GroupComment on above:Performed By: #### BMP, CBC #### [place] [address] USAEosinophils/100 WBC (Bld)0.0 %Normal.The [facility] Physician GroupComment on above:Performed By: #### BMP, CBC #### [place] [address] USAErythrocyte distribution width (RBC) [Ratio]15.6 %High 11.9-15.3The [facility] Physician GroupComment on above:Performed By: #### BMP, CBC #### [place] [address] USAHematocrit (Bld) [Volume fraction]32.9 %Low34.0-46.4The [facility] Physician GroupComment on above:Performed By: #### BMP, CBC #### [place] [address] USAHemoglobin (Bld) [Mass/Vol]11.0 g/dLLow11.8-15.4The [facility] Physician GroupComment on above:Performed By: #### BMP, CBC #### [address] [place] [address] USALymphocytes (Bld) [#/Vol]1.2 10*3/uLNormal1.00-4.8The [facility] Physician GroupComment on above:Performed By: #### BMP, CBC #### [place] [address] USALymphocytes/100 WBC (Bld)9.8 %Normal.The [facility] Care Physician GroupComment on above:Performed By: #### BMP, CBC #### [place] [address] USAMCH (RBC) [Entitic mass]28.6 kmDldyjk64.7-34.3The [facility] Physician GroupComment on above:Performed By: #### BMP, CBC #### [place] [address] USAMCV (RBC) [Entitic vol]85.5 zPGnaakf74-388Vrk [facility] Physician GroupComment on above:Performed By: #### BMP, CBC #### [place] [address] USAMean Corpuscular HGB Conc33.4 g/iHUznfrg77.0-35.0The [facility] Care Physician GroupComment on above:Performed By: #### BMP, CBC #### [place] [address] USAMonocytes (Bld) [#/Vol]0.6 10*3/uLNormal0.0-0.8The [facility] Care Physician GroupComment on above:Performed By: #### BMP, CBC #### [place] [address] USAMonocytes/100 WBC (Bld)5.4 %Normal.The [facility] Care Physician GroupComment on above:Performed By: #### BMP, CBC #### [place] [address] USANeutrophils (Bld) [#/Vol]10.2 10*3/uLHigh1.8-7.7The [facility] Physician GroupComment on above:Performed By: #### BMP, CBC #### [facility] [address] [place] [address] USANeutrophils/100 WBC (Bld)84.7 %Normal.The [facility] Care Physician GroupComment on above:Performed By: #### BMP, CBC #### [facility] [address] [place] [address] USANRBC%0.0 /100{WBC}Normal0-0.5The [facility] Comment on above:Performed By: #### BMP, CBC #### [place] [address] USAPlatelet mean volume (Bld) [Entitic vol]7.6 fLNormal 6.3-10.7The [facility] Physician GroupComment on above:Performed By: #### BMP, CBC #### [place] [address] USAPlatelets (Bld) [#/Vol]204 10*3/tZFtxnuo568-781Vyk [facility] Physician GroupComment on above:Performed By: #### BMP, CBC #### [place] [address] USARBC (Bld) [#/Vol]3.85 10*6/uLNormal3.60-5.00The [facility] Physician GroupComment on above:Performed By: #### BMP, CBC #### [place] [address] USAWBC (Bld) [#/Vol]12.0 10*3/uLHigh3.8-11.6The [facility] Physician GroupComment on above:Performed By: #### BMP, CBC #### [place] [address] USAWhite Blood Count12.0 [CFU]/mLHigh3.8-11.6The [facility] Physician GroupComment on above:Performed By: #### BMP, CBC #### [place] [address] USALon 11-19-2024L Specimen: [id number] Received: 11/19/24 Status: SHERYL Paiz Num: [id number] Spec Type: Surgical Subm Dr: Fred Hernandez MD Tissues: A Gross Only (R HIP BONE AND TISSUE) Procedures: Level 1 Gross Age/ Patient Sex Location Account Attending Physician Una Gomez 84/F 4N [id number] Fred Hernandez MD SPEC NUM: [id number] RECD: 11/19/24 STATUS: SHERYL PAIZ NUM: [id number] FABIANA: 11/19/24-[address] [facility] DR: Fred Hernandez MD ENTERED: 11/19/24 [facility] DR: SPEC TYPE: Surgical DEPT: S ENTERED BY: [id number] RECV BY: [id number] ORDERED: Level 1 Gross ORDERED: Level 1 [...] ONLY- Microscopic Description Gross examination only. Specimen: [id number] Received: 11/19/24 Status: SHERYL Paiz Num: [id number] Spec Type: Surgical Subm Dr: Fred Hernandez MD Tissues: A Gross Only (R HIP BONE AND TISSUE) Procedures: Level 1 Gross Patient: Una Gomez [id number] (Continued) Specimen: [id number] Received: 11/19/24 (Continued) Signed (signature on file) Kwasi Colindres MD 11/20/24 1456 Specimen: [id number] Received: 11/19/24 Status: SHERYL Paiz Num: [id number] Spec Type: Surgical Subm Dr: Fred Hernandez MD Tissues: A Gross Only (R HIP BONE AND TISSUE) Procedures: Level 1 Gross Patient: Una Gomez [id number] (Continued) Specimen: [id number] Received: 11/19/24 (Continued) CPT Codes 79114 Specimen: [id number] Received: 11/19/24 Status: SHERYL Paiz Num: [id number] Spec Type: Surgical Subm Dr: Fred Hernandez MD Tissues: A Gross Only (R HIP BONE AND TISSUE) Procedures: Level 1 Gross Patient: Una Gomez [id number] (Continued) Signed (signature on file) Kwasi Colindres MD 11/20/24 1456NoWakeMed North Hospital Physician GroupXR hip RT 1Von 67-10-2832FR hip RT [facility] Main [address] [address] XRay Report Signed Patient: Una Gomez MR#: [id number] : 1940 Acct:[id number] Age/Sex: 84 / F ADM Date: 11/19/24 Loc: Room: [address] [place] [address] Type: [facility] Attending Dr: Fred Hernandez II, MD [...] Webster M.D. 11/19/2024 4:36 PM Dictation Location: [facility]--16 Transcribed By: [facility] 11/19/24 163 Dictated By: Rock Webster DO 11/19/24 1635 Signed By: 11/19/24 1636[facility] Physician GroupXR low pelvis w/RT x-table hipon 66-75-0315BK low pelvis w/RT x-table hipKNOX [facility] Main [address] [address] XRay Report Signed Patient: Una Gomez MR#: [id number] : 1940 Acct:[id number] Age/Sex: 84 / F ADM Date: 11/19/24 Loc: [place] Room: Type: [facility] Attending Dr: Fred Hernandez II, MD [...] Webster M.D. 11/19/2024 1:46 PM Dictation Location: [facility]-16 Transcribed By: [facility] 11/19/24 1346 Dictated By: Rock Webster DO 11/19/24 1345 Signed By: 11/19/24 1346[facility] Physician [facility] CenterECH echo transthoracicon 67-99-9146ANL echo transthoracicKNOX COMMUN[facility] Main [place] [address] [place] [address] Echocardiogram Signed Patient: Una Gomez MR#: [id number] : 1940 Acct:[id number] Age/Sex: 84 / F ADM Date: 11/12/24 Loc: Room: Type: [facility] Attending Dr: Curtis Morales MD Ordering Provider: Curtis Morales MD Date of Service: 11/12/2411/28/856 [facility] echo transthoracic: R94.31 - Abnormal electrocardiogram [ECG] [...] 0859 Signed By: Curtis Morales MD 11/12/24 1611NoMaria Parham Health Physician GroupAppearance of UrineOrdered By: Fred Hernandez on 11-01-2024 Appearance (U)ClearNormalClearChillicothe Va Medical CenterComment on above: Order Comment: Name Collection Type:: Clean-Voided MidstreamPerformed By: #### UA ####[facility] Wwk[address] Basic Metabolic Panelon 40-17-7812NWT/1.73 sq M.predicted MDRD (S/P/Bld) [Vol rate/Area]mL/min/{1.73_m2}NormalThe [facility] Physician GroupComment on above: Performed By: #### FRUC #### [facility] , #### BMP, CBC #### [facility] [address] [place] [address] USABasophils [#/volume] in Blood by Automated countOrdered By: Fred Hernandez on 41-36-5559Hqtwwgisx (Bld) [#/Vol]0.0 10*3/uLNormal0.0-0.2 [facility] CenterComment on above:Result Comment: PERFORMED BY: [facility] [address] [facility] [place] [address] PATHOLOGIST MEDIA MONITOR BRENT LOPEZ M.D.Performed By: #### FRUC #### [facility] , #### BMP, CBC #### [facility] [address] [place] [id number] USABasophils/100 leukocytes in Blood by Automated count Ordered By: Fred Hernandez on 82-54-5089Jfgxxlxvf/100 WBC (Bld)0.5 %Normal. [facility] Medical CenterComment on above:Performed By: #### FRUC #### [facility] , #### BMP, CBC #### [facility] [address] [place] [address] USABilirubin Test strip Ql (U)Ordered By: Fred Hernandez on 31-63-7689Mepwxqjco Ql (U)NegativeNegativeChillicothe Va Medical Center Calcium [Mass/volume] in Serum or PlasmaOrdered By: Fred Hernandez on 28-28-5061Kvobebh [Mass/Vol]9.7 mg/dLNormal8.6-10.3FUniversity Hospitals Lake West Medical CenterComment on above:Result Comment: PERFORMED BY: [place] [address] PATHOLOGIST MEDIA MONITOR BRENT LOPEZ M.D.Performed By: #### FRUC #### [facility] , #### BMP, CBC #### [place] [address] USACarbon dioxide, total [Moles/volume] in Serum or Plasma Ordered By: Fred Hernandez on 28-72-1930LI4 [Moles/Vol]30.2 mmol/LNormal 21.0-31.0[facility] Medical CenterComment on above:Performed By: #### FRUC #### [facility] , #### BMP, CBC #### [place] [address] USAChloride [Moles/volume] in Serum or PlasmaOrdered By: Fred Hernandez on 36-97-8494Zaubyczs [Moles/Vol]101 mmol/BGwuqgd04-348XsccwqjrmChillicothe Va Medical CenterComment on above:Performed By: #### FRUC #### [facility] , #### BMP, CBC #### [facility] [address] [place] [address] USAColor of Urine by AutoOrdered By: Fred Hernandez on 30-23-2128Ewdqq (U)Light-yellowNormalYellowChillicothe Va Medical Center Comment on above:Order Comment: Name Collection Type:: Clean-Voided Midstream Performed By: #### UA ####[facility] [address] [place] [address] USAComplete Blood Count Auto Diffon 20-08-6035Qtin Corpuscular HGB Conc33.7 g/xQUlyrfu99.0-35.0The [facility] Phys[facility] CenterComment on above:Performed By: #### FRUC #### [facility] , #### BMP, CBC #### [facility] [address] [place] [address] USANRBC%0.1 /100{WBC}Normal0-0.5The [facility] Comment on above:Performed By: #### FRUC #### [facility] , #### BMP, CBC #### [place] [address] USAWhite Blood Count6.1 [CFU]/mLNormal3.8-11.6The [facility] Medical CenterComment on above:Performed By: #### FRUC #### [facility] , #### BMP, CBC #### [facility] [address] [place] [address] USACreatinine [Mass/volume] in Serum or PlasmaOrdered By: Fred Hernandez on 00-49-2405Culoaiqzwk [Mass/Vol]0.63 mg/dLNormal0.60-1.20 [facility] Medical CenterComment on above:Performed By: #### FRUC #### [facility] , #### BMP, CBC #### [facility] [address] [place] [address] USAEosinophils [#/volume] in Blood by Automated countOrdered By: Fred Hernandez on 85-72-5814Scjtignyser (Bld) [#/Vol]0.2 10*3/uLNormal 0.0-0.45[facility] Medical CenterComment on above:Performed By: #### FRUC #### [facility] , #### BMP, CBC #### [place] [address] USAEosinophils/100 leukocytes in Blood by Automated count Ordered By: Fred Hernandez on 21-41-3873Wtxscrnjvjl/100 WBC (Bld)3.9 %Normal. [facility] Medical CenterComment on above:Performed By: #### FRUC #### [facility] , #### BMP, CBC #### [facility] [address] [place] [address] USAErythrocyte distribution width [Ratio] by Automated count Ordered By: Fred Hernandez on 79-82-9303Ehvksrbmzhn distribution width (RBC) [Ratio]16.7 %High11.9-15.3FUniversity Hospitals Lake West Medical CenterComment on above: Performed By: #### FRUC #### [facility] , #### BMP, CBC #### [place] [address] USAErythrocytes [#/volume] in Blood by Automated countOrdered By: Fred Hernandez on 83-99-0443YUG (Bld) [#/Vol]4.29 10*6/uLNormal3.60-5.00 [facility] CenterComment on above:Performed By: #### FRUC #### [facility] , #### BMP, CBC #### [place] [address] USAFructosamineon 53-57-8951Naeqywjzjcwx028 umol/LNormal0-285 [facility] Physician GroupComment on above:Result Comment: Published reference interval for apparently healthy subjects between age 20 and 60 is 205 - 285 umol/L and in a poorly controlled diabetic population is 228 - 563 umol/L with a mean of 396 umol/L. Performed at: [facility] [address] [id number] Light Armored Vehicle Officer: Fady Shoemaker PhD, Phone: [phone] PERFORMED BY: [place] [address] PATHOLOGIST MEDIA MONITOR BRENT LOPEZ M.D.Performed By: #### FRUC #### [facility] , #### BMP, CBC #### [facility] [address] [place] [place] [address] USAFructosamine [Moles/volume] in Serum or PlasmaOrdered By: Fred Hernandez on 79-77-5433Mwbpvsknpojp [Moles/Vol]222 umol/L0-285[facility] Va Medical CenterComment on above:Published reference interval for apparently healthysubjects between age 20 and 60 is 205 - 285 umol/L and in apoorly controlled diabetic population is 228 - 563 umol/Lwith a mean of 396 umol/L.Performed at: [address] [id number] Director: Fady Shoemaker PhD, Phone: [phone] filtration rate [Volume Rate/Area] in Serum, Plasma or Blood by Creatinine Ordered By: Fred Hernandez on 47-67-4300Iemeasljmj filtration rate [Volume Rate/Area] in Serum, Plasma or Blood by Creatinine> 60.0 mL/MinChillicothe Va Medical CenterGlucose [Mass/volume] in Serum or PlasmaOrdered By: Fred Hernandez on 00-82-8447Mxaxxeq [Mass/Vol]97 mg/pGXhpfoy11-697SyuxltaovChillicothe Va Medical CenterComment on above:ADA recommended reference rangeRandom Glucose Reference [...] #### [facility] , #### BMP, CBC #### [facility] [address] [place] [address] USAGlucose [Mass/volume] in Urine by Test stripOrdered By: Fred Hernandez on 24-51-8826Iamxcvp Test strip (U) [Mass/Vol]Normal mg/dLNormal [facility] Medical CenterHematocrit [Volume Fraction] of Blood by Automated countOrdered By: Fred Hernandez on 34-56-5435Dtgdgiaqec (Bld) [Volume fraction]36.8 %Oinavt80.0-46.4FUniversity Hospitals Lake West Medical CenterComment on above:Performed By: #### FRUC #### [facility] , #### BMP, CBC #### [facility] [address] [address] USAHemoglobin Test strip Ql (U)Ordered By: Fred Hernandez on 77-15-8315Lpwelyuoii Ql (U)[facility] Hemoglobin [Mass/volume] in BloodOrdered By: Fred Hernandez on 11-01-2024 Hemoglobin (Bld) [Mass/Vol]12.4 g/iIIxktnr58.8-15.4FUniversity Hospitals Lake West Medical CenterComment on above:Performed By: #### FRUC #### [facility] , #### BMP, CBC #### [facility] [address] [address] USAKetones [Presence] in Urine by Test stripOrdered By: Fred Hernandez on 94-05-0486Cqdczjh Ql (U)NegativeMercy Health Clermont HospitalComment on above:Order Comment: Name Collection Type:: Clean-Voided MidstreamPerformed By: #### UA ####[facility] [address] USALeukocyte esterase [Presence] in Urine by Test stripOrdered By: Fred Hernandez on 50-33-4018Wbypyixpx esterase Test strip Ql (U)NegativeMercy Health Clermont HospitalComment on above:Order Comment: Name Collection Type:: Clean-Voided MidstreamPerformed By: #### UA ####[place] [address] USALeukocytes [#/volume] corrected for nucleated erythrocytes in Blood by Automated counOrdered By: Fred Hernandez on 29-06-3771JGL corrected for nucl RBC Auto (Bld) [#/Vol]6.1 10*3/uL3.8-11.6FUniversity Hospitals Lake West Medical Center Leukocytes [#/volume] in Blood by Automated countOrdered By: Fred Hernandez on 32-19-1610BKP (Bld) [#/Vol]6.1 10*3/uLNormal3.8-11.6FUniversity Hospitals Lake West Medical CenterComment on above:Performed By: #### FRUC #### [facility] , #### BMP, CBC #### [facility] [address] [address] USALymphocytes [#/volume] in Blood by Automated countOrdered By: Fred Hernandez on 47-32-4832Obfquqtijfk (Bld) [#/Vol]1.9 10*3/uLNormal 1.00-4.8[facility] Medical CenterComment on above:Performed By: #### FRUC #### [facility] , #### BMP, CBC #### [facility] [address] [address] USALymphocytes/100 leukocytes in Blood by Automated count Ordered By: Fred Hernandez on 64-33-7993Vugsusdkzbu/100 WBC (Bld)30.4 %Normal. [facility] Medical CenterComment on above:Performed By: #### FRUC #### [facility] , #### BMP, CBC #### [facility] [address] [address] [facility] [Entitic mass] by Automated countOrdered By: Fred Hernandez on 90-59-5510GUS (RBC) [Entitic mass]29.0 wpKfeddf43.7-34.3FUniversity Hospitals Lake West Medical CenterComment on above:Performed By: #### FRUC #### [facility] , #### BMP, CBC #### [facility] [address] [address] USAMCHC Auto (RBC) [Mass/Vol]Ordered By: Fred Hernandez on 41-00-8256HFOM (RBC) [Mass/Vol]33.7 g/dL32.0-35.0[facility] Va Medical CenterMCV [Entitic volume] by Automated countOrdered By: Fred Hernandez on 06-54-0494RCC (RBC) [Entitic vol]85.8 qMIfygit64-009JfyosoftrChillicothe Va Medical CenterComment on above:Performed By: #### FRUC #### [facility] , #### BMP, CBC #### [facility] [address] [place] [address] USAMonocytes [#/volume] in Blood by Automated countOrdered By: Fred Hernandez on 58-08-0737Axvzkunca (Bld) [#/Vol]0.7 10*3/uLNormal0.0-0.8 [facility] Medical CenterComment on above:Performed By: #### FRUC #### [facility] , #### BMP, CBC #### [facility] [address] [place], [place] [address] USAMonocytes/100 leukocytes in Blood by Automated count Ordered By: Fred Hernandez on 65-82-0683Uccxhpzux/100 WBC (Bld)10.9 %Normal. [facility] Va Medical CenterComment on above:Performed By: #### FRUC #### [facility] , #### BMP, CBC #### [facility] [address] [place] [address] USANeutrophils [#/volume] in Blood by Automated countOrdered By: Fred Hernandez on 34-12-6512Ygakpyrjjey (Bld) [#/Vol]3.3 10*3/uLNormal 1.8-7.7FUniversity Hospitals Lake West Medical CenterComment on above:Performed By: #### FRUC #### [facility] , #### BMP, CBC #### [facility] [address] [address] USANeutrophils/100 leukocytes in Blood by Automated count Ordered By: Fred Hernandez on 67-42-7520Frcnjfkvtcq/100 WBC (Bld)54.3 %Normal. [facility] Medical CenterComment on above:Performed By: #### FRUC #### [facility] , #### BMP, CBC #### [facility] [address] [place] [address] USANitrite Test strip Ql (U)Ordered By: Fred Hernandez on 77-70-2070Fsxcztr Ql (U)NegativeNegativeChillicothe Va Medical CenterNo Panel InformationOrdered By: Fred Hernandez on 71-81-2328Mkedglvp Creatinine Clearance (ChemN/[facility] County HospitalNucleated erythrocytes [Presence] in Blood by Automated countOrdered By: Fred Hernandez on 11-01-2024 Nucleated RBC Auto Ql (Bld)0.1 /100{WBC}0-0.5FUniversity Hospitals Lake West Medical Center Platelet mean volume [Entitic volume] in Blood by Automated countOrdered By: Fred Hernandez on 07-30-5739Rtgctdgo mean volume (Bld) [Entitic vol]7.3 fL Normal6.3-10.7FUniversity Hospitals Lake West Medical CenterComment on above:Performed By: #### FRUC #### [facility] , #### BMP, CBC #### [facility] [address] [place] [address] USAPlatelets [#/volume] in Blood by Automated countOrdered By: Fred Hernandez on 59-85-1149Fkudajdre (Bld) [#/Vol]209 10*3/oCJzxihg116-564 [facility] CenterComment on above:Performed By: #### FRUC #### [facility] , #### BMP, CBC #### [facility] [address] [place] [address] USAPotassium [Moles/volume] in Serum or PlasmaOrdered By: Fred Hernandez on 09-95-8637Obikiuqpq [Moles/Vol]4.3 mmol/LNormal3.5-5.1 [facility] CenterComment on above:Performed By: #### FRUC #### [facility] , #### BMP, CBC #### [facility] [address] [place] [address] USAProtein Test strip (U) [Mass/Vol]Ordered By: Fred Hernandez on 20-57-6371Kkntviu (U) [Mass/Vol]NegativeNegativeTrinity Health System Twin City Medical Centererum or plasma anion gap determinationOrdered By: Fred Hernandez on 49-73-7912Stcro gap [Moles/Vol]10.1 mmol/LNormal6.0-15.0[facility] Medical CenterComment on above:Performed By: #### FRUC #### [facility] , #### BMP, CBC #### [place] [address] USASodium [Moles/volume] in Serum or PlasmaOrdered By: Fred Hernandez on 99-26-8962Waktgh [Moles/Vol]137 mmol/PAppepu267-342VunovhcpqChillicothe Va Medical CenterComment on above:Performed By: #### FRUC #### [facility] , #### BMP, CBC #### [facility] [address] [place] [address] USASpecific gravity Test strip (U) [Rel density]Ordered By: Fred Hernandez on 34-10-6201Fgkjfesr gravity (U) [Rel density]1.0181.001-1.030 [facility] Medical CenterUrea nitrogen [Mass/volume] in Serum or Plasma Ordered By: Fred Hernandez on 99-46-3481Ggrd nitrogen [Mass/Vol]17 mg/dLNormal 7-[facility] Medical CenterComment on above:Performed By: #### FRUC #### [facility] , #### BMP, CBC #### [place] [address] USAUrinalysison 03-18-1765Fmapbtgne,UrineNegativeNormal NegativeThe [facility] Care Physician GroupComment on above:Order Comment: Name Collection Type:: Clean-Voided MidstreamPerformed By: #### UA ####[address] [address] USAGlucose Ql (U)Normal NormalNormUF Health Jacksonville Physician GroupComment on above:Order Comment: Name Collection Type:: Clean-Voided MidstreamPerformed By: #### UA ####[address] [address] USANitrite,UrineNegative NormalNegativeThe [facility] Physician GroupComment on above:Order Comment: Name Collection Type:: Clean-Voided MidstreamPerformed By: #### UA ####[address] [address] USAOccult Blood,Urine NegativeNormalNegativeThe [facility] Physician GroupComment on above:Order Comment: Name Collection Type:: Clean-Voided MidstreamResult Comment: PERFORMED BY: [facility] [address] [place] [id number] PATHOLOGIST MEDIA MONITOR BRENT LOPEZ M.D.Performed By: #### UA ####[address] [address] USAProtein,UrineNegativeNormalNegativeHca Florida Northside Hospital Physician GroupComment on above:Order Comment: Name Collection Type:: Clean-Voided MidstreamPerformed By: #### UA ####[address] [address] USASpecificy Am[place],Urine1.018Normal 1.001-1.030The [facility] Physician GroupComment on above:Order Comment: Name Collection Type:: Clean-Voided MidstreamPerformed By: #### UA ####[address] [address] USAUrobilinogen,Urine NormalNormalNormUF Health Jacksonville Physician GroupComment on above:Order Comment: Name Collection Type:: Clean-Voided MidstreamPerformed By: #### UA ####[address] [address] USAUrobilinogen Test strip (U) [Mass/Vol]Ordered By: Fred Hernandez on 30-88-2058Yhzaynwiulyg (U) [Mass/Vol]Normal mg/dLNormalChillicothe Va Medical CenterpH of Urine by Test stripOrdered By: Fred Hernandez on 78-14-3888jZ (U)5.5 [pH]Normal5.0-9.0 [facility] Medical CenterComment on above:Order Comment: Name Collection Type:: Clean-Voided MidstreamPerformed By: #### UA ####[facility] [address] [place] [address] USAOptical coherence tomography study reporton 17-77-2211HNAQMercy Hospital St. Louis HealthcareRadiology Study observation (narrative)NOM HealthcareFollow-Upon 79-14-8354Bbqgwg-[id number] JasonUna Radha 1940 F Date Provider Department Center 10/21/2024 264-BERTHA MULTANI MP ORTHO MPORTHO No family history on file Level of Service:[address] [place] OFFICE/OUTPATIENT ESTABLISHED LOW [facility] 20 MIN Reason for Visit and Comments: Follow-up [047396] - Pt c/o right armpit pain. Pt has had for a few months. Happened when carrying groceries. Pt says oral steroids have helped in the past with this pain Pain [136] - Pt c/o right armpit pain. Pt has had for a few months. Happened when carrying groceries. Pt says oral steroids have helped in the past with this painNormalUniversC[facility] Medicine Office/Clinic Noteon 19-73-5448Xtbjie Medicine Office/Clinic NoteFacape cod hospital Medicine Office/Clinic Note Chief Complaint Acute [...] charity, Topical, TID, 60 gram, Refill(s) 0, [facility]/pharmacy #[id number], 147, cm, 10/02/24 8:57:00 EDT, [...] Contact Information Marlee Malcolm Within [address] [place] [address] [facility] (1) Additional Instructions: Rash of forearms Patient Education Rash, Adult, Jkbp-yb-Dtvb Problem List/Past Medical History Ongoing Asthma BMI [...] mg= 1 tab(s), Ora (more content not included)...[facility] County Medical CenterComment on above:Result Comment: Electronically Signed By: LEA WALLACE CNP\Date and Time Signed: 10/02/24 12:12 EDTLipid Panelon 99-60-8623Zdfrigbardf [Mass/Vol]112 mg/dLLow 120-200[facility] CenterComment on above:Performed By: #### [id number] ####[facility] Dtikx[address]ihvd496 [place] [address] Cholesterol in HDL [Mass/Vol]40 mg/dLInvalid Interpretation CodeSouthern Ohio Medical CenterComment on above:Result Comment: '>= 60 LOW RISK' '<= 40 HIGH RISK'Performed By: #### [id number] ####[facility] Zkkqpxmwia[address]Norwalk, [place] [address]Drljrjxbtvw in LDL [Mass/Vol]58 mg/dL Normal<=129[facility] Medical CenterComment on above:Performed By: #### [id number] ####[facility] Vjvgrrxpeu[address]Norwalk, [place] [address]Fzzkjfcginq in VLDL [Mass/Vol]33 mg/dLNormal7-40[facility] Comment on above:Performed By: #### [id number] ####[facility] F[address]ds[address]oez[address]Nor[place], [place] [address]Qmkqhjlziuno [Mass/Vol]163 mg/dLHigh <=149[facility] Medical CenterComment on above:Performed By: #### [id number] ####[facility] [address] [place] [address] Ambulatory Visit Summaryon 93-45-7435Gmphxzbvkr Visit SummaryAmbulatory Visit Summary UNA GOMEZ :1940 [...] Appointments Monday 8:40 AM EDT With: Where: [address] [address]- Monday 1:40 PM EST With: Marlee Martinez Where: [address] [address]- Monday2025 11:00 AM EDT With: Where: [address] [address]- You Need to Complete the Following Lipid Panel, Blood, Routine collect, 09/09/24, Order for future visit, Lab Collect, Hypercholesterolemia, Required & Missing, Print Label By Order Location BD Bone Density DEXA, 09/09/24, Routine, Order for Future Visit, Transport Mode: Ambulatory, Reason: Post menopausal, Ovarian failure due to menopause, No, 128, pp_set_radiology_subspecialty, Not Required, [facility] Medications What How Much When Why [...] content not included)... [facility] Medicine Office/Clinic Noteon 09-09-2024 Family Medicine Office/Clinic NoteM[facility] Medicine Office/Clinic Note Chief Complaint Subsequent [...] of clutter to prevent tripping and/or falling. [place] Advance Directives reviewed, present at home. Encouraged [...] patient request, she will have completed at [facility] prior to next PCP visit. Mammogram: Patient [...] and report to pro (more content not included)...[facility] County Medical CenterComment on above:Result Comment: Electronically Signed By: Marlee Martinez\.br\Date and Time Signed: 09/09/24 17:53 EDT\.br\Electronically Co-Signed By: Juliana Glez\.br\Date and Time Co- Signed: 09/09/24 13:48 EDTFPG ECG *CARDIOLOGY ONLY*on 02-23-3538ALB ECG *CARDIOLOGY ONLY*[facility] Main [place] [id number] Electrocardiograph Report Signed Patient: Una Gomez MR#: [id number] : 1940 Acct:[id number] Age/Sex: 84 / F ADM Date: 09/05/24 Loc: [facility] Room: Type: [facility] Attending Dr: Curtis Morales MD Ordering [...] previous ECGs available Confirmed by Curtis Morales ([id number]) on 09/09/2024 4:23:45 PM Referred By: Electronically Signed By: Curtis Morales Transcribed By: MUS Signed By Curtis Morales MD 09/09/[address] [place] [address] Physician GroupX-ray reportOrdered By: Rock Webster on 51-49-8750Vmlpk reportKNOX COMMUNITY [facility]ITAL Main [address] [address] XRay Report Signed Patient: Una Gomez MR#: [id number] : 1940 Acct:[id number] Age/Sex: 84 / F ADM Date: 5 Loc: ER Room: Type: [facility] ER Attending Dr: Copies to: Rosa [...] Rock Webster DO 09/05/242043 Signed By: 09/05/242043 [facility] CenterXR shoulder RT min 2V*on 49-75-2882ND shoulder RT min 2V*[facility] Main [place] [address] [place] [address] XRay Report Signed Patient: Una Gomez MR#: [id number] : 1940 Acct:[id number] Age/Sex: 84 / F ADM Date: 09/05/24 Loc: ER Room: Type: [facility] ER Attending Dr: Copies to: Rosa [...] By: Rock Webster DO 09/05/242043 Signed By: 09/05/242043[facility] Physician GroupAmbulatory Visit Summaryon 95-52-0013Hddsjmvtdp Visit SummaryAmbulatory Visit Summary UNA GOMEZ :1940 [...] Follow-Up Appointments Monday 11:00 AM EDT Where: [address] [address]- Medications What How Much When Why Instructions New ergocalciferol (Vitamin D 50,000 intl units (1.25 mg) oral capsule) 1 Capsules By Mouth 2 timesa week Pre-op exam Vitamin D deficiency Refills: 3 Pickup at [facility]/pharmacy #[id number] Unchanged acetaminophen (Tylenol Extra Strength) 500 Milligram [...] TABLET BY MOUTH EVERY DAY Pharmacy Information [facility]/pharmacy #[id number]: [address] [place], [place] [phone] Allergies Augmentin (Unknown) Diflucan (Unknown) sulfa drugs [...] signed up for this yet, please contact [employer] at [phone] to get signed up today. Language Information Language assistance services are available as needed. Nellie [facility] Medicine Office/Clinic Noteon 17-78-7393[place] Medicine Office/Clinic NoteM[facility] Hospital Medicine Office/Clinic Note Chief Complaint surgical clearance HPI Staff Patient is presenting for pre-surgical clearance Ortho - [facility] Pre-testing, labs done Concerns: Refills: unsure History [...] 2x/Wk, # 24 cap(s), Refills(s) 3, Pharmacy: [facility]/pharmacy #[id number], 147, cm, 08/29/24 14:41:00 EDT, Height/Length Dosing, 57.9, kg, 08/29/24 14:41:00 EDT, Weight Dosing ECG 12 Lead Adult [facility] External Ambulatory Referral 2. Vitamin D deficiency (E55.9: Vitamin D deficiency, unspecified) vitamin D sent in Ordered: ergocalciferol, 50,000 International_Unit = 1 cap(s), Oral, 2x/Wk, # 24 cap(s), Refills(s) 3, Pharmacy: [facility]/pharmacy #[id number], 147, cm, 08/29/24 14:41:00 EDT, Height/Length Dosing, 57.9, kg, 08/29/24 14:41:00 EDT, Weight Dosing [facility] External Ambulatory Referral 3. Left bundle branch block (I44.7: Left bundle-branch block, unspecified) PT WILL BE REFERRED TO [facility] FOR CARDIAC CLEARANCE FOR SURGERY Ordered: [facility] External Ambulatory Referral 4. Left atrial enlargement (I51.7: Cardiomegaly) ABNORMAL EKG IN OFFICE Ordered: [facility] External Ambulatory Referral 5. BMI 26.0-26.9,adult (Z68.26: [...] 50,000 intl units (1.25 mg) oral capsule, [address] International_Unit= 1 cap(s), Oral, 2x/Wk, 3 refills [...] virus vaccine, inactivated 12/14/2022 Recorded SARS-CoV-2 (COVID-19) mRNAMUL.ORD!m19638 02/10/2022 Recorded influenza virus vaccine, inactivated 12/27/2021 Recorded SARS-CoV-2 (COVID-19) mRNA-1273 vaccine 03/17/2021 Recorded 2022-07-04: TPV80 influenza virus vaccine, inactivated 02/10/2021 Recorded pneumococcal 23-valent vaccine 09/11/2020 Recorded SARS-CoV-2 (COVID-19) mRNA-1273 vaccine 05/05/2020 Recorded SARS-CoV-2 (COVID-19) mRNA-1273 (more content not included)...[facility] County Medical CenterComment on above:Result Comment: Electronically Signed By: Marlee Martinez\.br\Date and Time Signed: 08/29/24 15:48 EDTProvider Letteron 38-20-8202Azzjoszn LetterProvider Letter [address] [place] [address] August 29, 20[address] [place] [id number] : [address] eHrnandez, The above patient has been evaluated at your request for preoperative clearance. After assessment of available pertinent labs and diagnostic tests, I feel this patient is medicallyoptimized for surgery. Final discretion of whether the patient is cleared for surgery remains up tothe surgeon/anesthesiologist. Thank you, Marlee Malcolm, [facility] Vincent HospitalA1C with Estimated Average Gluon 68-20-8499Ixlkyaw [Mass/Vol]103 mg/dLNoMaria Parham Health Physician Group Comment on above:Result Comment: PERFORMED BY: [facility] [address] [place] [address] PATHOLOGIST MEDIA MONITOR BRENT LOPEZ M.D.Performed By: #### MRSA - MSSA PCR, HGB, [id number], ALB, A1C WT eA ####[facility] Gh[address]#### NICOTINE ####[facility] ,Albumin Levelon 34-53-7851Fybhtdu [Mass/Vol]4.3 g/dLNormal3.5-5.7The [facility] Physician GroupComment on above: Performed By: #### MRSA - MSSA PCR, HGB, [id number], ALB, A1C WT eA #### [facility] [address] #### NICOTINE #### [facility] ,Albumin [Mass/volume] in Serum or Plasma by Bromocresol green (BCG) dye binding methoOrdered By: Fred Hernandez on 91-17-1018Hcrqrnp BCG dye [Mass/Vol]4.3 g/dL3.5-5.7FUniversity Hospitals Lake West Medical CenterBlood estimated average glucose determination by estimation from glycated hemoglobinOrdered By: Fred Hernandez on 10-16-9167Czdrhsl glucose Estimated from glycated hemoglobin (Bld) [Mass/Vol] 103 mg/dLChillicothe Va Medical CenterCotinine [Mass/volume] in Serum or PlasmaOrdered By: Fred Hernandez on 58-32-6135Lcelukom [Mass/Vol]<1.0 ng/mL. [facility] Medical CenterComment on above:This test was developed and its performance characteristicsdetermined by [employer]. It has not been cleared orapproved by the Food and Drug Administration.Cotinine levels greater than 20.0 are consistent with theuse of tobacco or tobacco cessation products.Performed at: [facility], [place] [id number] Director: Kayleigh Lawrence MD, Phone: [phone] A1c/Hemoglobin.total in BloodOrdered By: Fred Hernandez on 08-68-1065IaU3y (Bld) [Mass fraction]5.2 %Normal4.3-5.6FUniversity Hospitals Lake West Medical CenterComment on above:Increased risk for diabetes: 5.7 - 6.4diabetes: >6.4glycemic control for adults with diabetes: <7.0Result Comment: Increased risk for diabetes: 5.7 - 6.4 diabetes: >6.4 glycemic control for adults with diabetes: <7.0Performed By: #### MRSA - MSSA PCR, HGB, [id number], ALB, A1C WTH eA ####[facility]#### NICOTINE ####[facility] ,Hemoglobin [Mass/volume] in BloodOrdered By: Fred Hernandez on 67-97-1117Hweuedbhrb (Bld) [Mass/Vol]13.1 g/pTPzxcff81.8-15.4FUniversity Hospitals Lake West Medical CenterComment on above:Result Comment: PERFORMED BY: [facility] [address] [place] [address] PATHOLOGIST MEDIA MONITOR BRENT LOPEZ M.D.Performed By: #### MRSA - MSSA PCR, HGB, [id number], ALB, A1C WTH eA #### [facility] [address] #### NICOTINE #### [facility] ,MRSA - MSSA Nasal PCRon 19-68-1470UZEO - MSSA Nasal PCRMRSA Result MRSA Negative MSSA Result MSSA Negative Real-time PCR Test performed by real-time PCR Reference Range Reference Range for all targets = Neg / Not Detected Reference Note 20 Reference Note 26 PERFORMED BY: [facility] [address] [place] [address] PATHOLOGIST MEDIA MONITOR BRENT LOPEZ M.D.NormalHca Florida Northside Hospital Physician GroupComment on above: Performed By: #### MRSA - MSSA PCR, HGB, [id number], ALB, A1C WTH eA ####[address] Street#### NICOTINE ####[facility] ,Nicotine [Mass/volume] in Serum or PlasmaOrdered By: Fred Hernandez on 62-78-4594Qfgnarzt [Mass/Vol]<1.0 ng/mL.[facility] CenterComment on above:This test was developed and its performance characteristicsdetermined by [facility]. It has not been cleared orapproved by the Food and Drug Administration.Nicotine levels greater than 2.0 are consistent with theuse of tobacco or tobacco cessation products.Nicotine/Cotinine Bloodon 82-35-9644Dbiekalb, Blood<1.0Normal.The [facility] Care Physician GroupComment on above:Result Comment: This test was developed and its performance characteristics determined by [facility]. It has not been cleared or approved by the Food and Drug Administration. Cotinine levels greater than 20.0 are consistent with the use of tobacco or tobacco cessation products. Performed at: [facility] Lab[address] [id number] Light Armored Vehicle Officer: Kayleigh Lawrence MD, Phone: [phone] PERFORMED BY: [facility] [address] [place] [id number] PATHOLOGIST MEDIA MONITOR BRENT LOPEZ M.D.Performed By: #### MRSA - MSSA PCR, HGB, [id number], ALB, A1C WTH eA ####[place] [address] [place]#### NICOTINE ####[facility] ,Nicotine, Blood<1.0Normal.The [facility] Care Physician GroupComment on above:Result Comment: This test was developed and its performance characteristics determined by [facility]. It has not been cleared or approved by the Food and Drug Administration. Nicotine levels greater than 2.0 are consistent with the use of tobacco or tobacco cessation products.Performed By: #### MRSA - MSSA PCR, HGB, [id number], ALB, A1C WTH eA ####[facility] [address]#### NICOTINE ####[facility] ,No Panel InformationOrdered By: Fred Hernandez on 09-92-0916Kiuzb Screen MRSA/MSSA [facility] Medical CenterVitamin D 25 Hydroxy Totalon 31-67-3576Zfljbqe D 25 Hydroxy Total20.1 ng/bAInj88-373Wdo [facility] Care Physician GroupComment on above:Result Comment: VITAMIN D STATUS 25(OH)VITAMIN D RANGE (ng/mL) Deficient <20 Insufficient 20 to <30 Sufficient 30 to 100 Reference: Wade IZQUIERDO,Divya MITCHELL, La Nena VIDES, et al. Evaluation,treatment, and prevention of vitamin D deficiency; an Endocrine Society clinical practice guideline. JCEM. 2010; 96(7):1911-30. PERFORMED BY: [facility] [address] [place] [address] PATHOLOGIST MEDIA MONITOR BRENT LOPEZ M.D.Performed By: #### MRSA - MSSA PCR, HGB, [id number], ALB, A1C WTH eA #### [facility] [address] #### NICOTINE #### [facility] ,Vitamin D+Metabolites [Mass/volume] in Serum or PlasmaOrdered By: Fred Hernandez on 84-05-3488Crgrdte D+Metabolites [Mass/Vol]20.1 ng/uHUpb20-808 [facility] Medical CenterComment on above:VITAMIN D STATUS 25(OH)VITAMIN D RANGE (ng/mL) Deficient <20 Insufficient 20 to <29Revspwnkor84 to 100Reference: Eduardo Grantkley [place], La Nena VIDES, et al. Evaluation,treatment, and prevention of vitamin D deficiency; an Endocrine Society clinical practice guideline. JCEM. 2010; 96(7):1911-30.Ambulatory Visit Summaryon 68-02-6876Sczcfoemat Visit SummaryAmbulatory Visit Summary UNA GOMEZ :1940 [...] Follow-Up Appointments Monday 11:00 AM EDT Where: [place] [id number]- Medications What How Much When Instructions Unchanged [...] Mouth At bedtime Duration: 90Days Pickup at [facility]177 Unchanged montelukast (montelukast 10 mg Tab) See instructions TAKE 1 TABLET BY MOUTH EVERY DAY Unchanged spironolactone (spironolactone 25 mg Tab) See instructions TAKE 1 TABLET BY MOUTH EVERY DAY Pharmacy Information [facility] #[id number]: [address], [place] [phone] Allergies Augmentin (Unknown) Diflucan (Unknown) sulfa drugs [...] you for choosing us for your care. [facility] Medical CenterCHEMISTRYOrdered By: SYSTEM SYSTEM on 79-53-8719Yseccva [Mass/Vol]4.2 g/dLNormal3.3 - 5.0 gm/dLRemisol Chem Albumin/Globulin [Mass ratio]1.8 {ratio}Normal1.1 - 2.2Remisol ChemALP [Catalytic activity/Vol]86 [iU]/fNirotd69 - 98 Int._Unit/LRemisol ChemALT No additional P-5'-P [Catalytic activity/Vol]17 [iU]/dNormal6 - 46 Int._Unit/L Remisol ChemAnion gap [Moles/Vol]10 mmol/LNormal6 - 16 mEq/LRemisol ChemAST [Catalytic activity/Vol]21 [iU]/dNormal5 - 43 Int._Unit/LRemisol ChemBilirubin [Mass/Vol]0.7 mg/dLNormal0.0 - 1.1 mg/dLRemisol ChemCalcium [Mass/Vol]9.5 mg/dL Normal8.9 - 11.1 mg/dLRemisol ChemChloride [Moles/Vol]104 mmol/WYcvanc828 - 111 mmol/LRemisol ChemCO2 [Moles/Vol]27 mmol/GLaatiw96 - 31 mmol/LRemisol Chem Creatinine [Mass/Vol]0.6 mg/dLNormal0.5 - 1.3 mg/dLRemisol ChemGFR/1.73 sq M.predicted MDRD (S/P/Bld) [Vol rate/Area]87 mL/min/1.73 k1Ilwrgl>=59mL/min/1.73 f4Iecndzf ChemGlobulin (S) [Mass/Vol]2.4 g/dLNormal1.4 - 4.0 gm/dLRemisol Chem Glucose [Mass/Vol]124 mg/fQJbvpoz37 - 199 mg/dLRemisol ChemPotassium [Moles/Vol] 4.2 mmol/LNormal3.5 - 5.3 mmol/LRemisol ChemProtein [Mass/Vol]6.6 g/dLNormal6.0 - 7.8 gm/dLRemisol ChemSodium [Moles/Vol]137 mmol/FGitopk257 - 145 mmol/LRemisol ChemTSH Qn1.36 m[IU]/LNormal0.34 - 5.60 mcIU/mLRemisol ChemUrea nitrogen [Mass/Vol]13 mg/dLNormal5 - 21 mg/dLRemisol ChemUrea nitrogen/Creatinine [Mass ratio]22 mg/blZcvn79 - 20Remisol ChemCMPon 75-66-5772Zhecwlz [Mass/Vol]4.2 g/dL Normal3.3-5.0[facility] CenterComment on above:Performed By: #### [id number] #### [facility] [address] [place], [place] [address]Pmboyza/Globulin [Mass ratio]1.8 {ratio}Normal1.1-2.2FGeorgetown Behavioral HospitalComment on above:Performed By: #### [id number] #### [facility] [address] [place], [place] [address]Xge Phos86 Int._Unit/ITdrtvz61-47OirkdhSouthern [facility] Medical Center Comment on above:Performed By: #### [id number] #### [facility] [address] [place], [place] [address]TXF98 Int._Unit/LNormal6-46[facility] CenterComment on above:Performed By: #### [id number] #### [facility] [address] [place], [place] [address]Adzgu gap [Moles/Vol]10 mmol/LNormal6-16[facility] CenterComment on above:Performed By: #### [id number] #### [facility] [address] [place], [place] [address]XJG58 Int._Unit/LNormal5-43[facility] CenterComment on above:Performed By: #### [id number] #### [facility] [address] [place], [place] [address]Jiot Total0.7 mg/dLNormal0.0-1.1FGeorgetown Behavioral Hospital Comment on above:Performed By: #### [id number] #### [facility] [address] [place], [place] [address]UYG/Creat Ratio22 No RtikwIazh72-47RqoujcSouthern Ohio Medical Center Comment on above:Performed By: #### [id number] #### [facility] [address] [place], [place] [address]Qnmqxuo [Mass/Vol]9.5 mg/dLNormal8.9-11.1FGeorgetown Behavioral HospitalComment on above:Performed By: #### [id number] #### [facility] [address] [place], [place] [address]Csowmkxy [Moles/Vol]104 mmol/JGgqycd666-629RqxvafSouthern Ohio Medical CenterComment on above:Performed By: #### [id number] #### [facility] [address] [place], [place] [address]FK6 [Moles/Vol]27 mmol/KYwrywu67-09OkkscaSouthern Ohio Medical Center Comment on above:Performed By: #### [id number] #### [facility] [address] [place], [place] [address]Cwmzyazeiu [Mass/Vol]0.6 mg/dLNormal0.5-1.3FGeorgetown Behavioral HospitalComment on above:Performed By: #### [id number] #### [facility] [address] [place], [place] [address]Uyrkxqep (S) [Mass/Vol]2.4 g/dLNormal1.4-4.0[facility] Medical CenterComment on above:Performed By: #### [id number] #### [facility] [address] [place], [place] [address]Mdmxeir [Mass/Vol]124 mg/rDLjmtjf42-285MgljuaSouthern Ohio Medical CenterComment on above:Performed By: #### [id number] #### [facility] [address] [place], [place] [address]Gfhpetcvm [Moles/Vol]4.2 mmol/LNormal3.5-5.3FGeorgetown Behavioral HospitalComment on above:Performed By: #### [id number] #### [facility] [address] [place], [place] [address]Lmzexfl [Mass/Vol]6.6 g/dLNormal6.0-7.8[facility] Medical CenterComment on above:Performed By: #### [id number] #### [facility] [address] [place], [place] [address]Vxtffd [Moles/Vol]137 mmol/NLlkzad758-227MquqlgSouthern Ohio Medical CenterComment on above:Performed By: #### [id number] #### [facility] [address] [place], [place] [address]Tbed nitrogen [Mass/Vol]13 mg/dLNormal5-21[facility] Medical CenterComment on above:Performed By: #### [id number] #### [facility] [address] [place], [place] [address]Xkouxt Medicine Office/Clinic Noteon 54-36-7497Dwqgrh Medicine Office/Clinic NoteMclean Hospital Medicine Office/Clinic Note Chief Complaint The patient presents with difficulty walking due to arthritis and hip pain. HPI Staff Una Eugenie) is an 84 year old female presenting for 6month med f/u, htn, thyroid As per [facility]- 02/13/24- lab recheck today Patient is [...] Cholecystectomy, Shoulder replace (more content not included)... NormalSouthern Ohio Medical CenterComment on above:Result Comment: Electronically Signed By: Francisco BELTRAN, Yaniv Sanabria.br\Date and Time Signed: 08/20/24 11:48 EDTTSH With T4fr Reflexon 08-85-2887ULP Qn1.36 m[IU]/LNormal0.34-5.60[facility] Medical CenterComment on above:Performed By: #### [id number] #### [facility] [address] [place], [place] [address]wPFWjq 39-81-2381lLUE05 mL/min/1.73 u3Aqmlub>=59[facility] Medical CenterComment on above:Performed By: #### [id number] #### [facility] [address] [place], [place] [address]Dotias Medicine Office/Clinic Noteon 82-94-2448Iddics Medicine Office/Clinic NoteFacape cod hospital Medicine Office/Clinic Note [facility] Staff [...] day(s), # 14 tab(s), Refills(s) 0, Pharmacy: [facility] #6177, 147, cm, 08/01/24 14:06:00 EDT, [...] virus vaccine, inactivated 12/14/2022 Recorded SARS-CoV-2 (COVID-19) mRNAMUL.ORD![id number] 02/10/2022 Recorded influenza virus vaccine, inactivated 12/27/2021 [...] vaccine, inactivated 03/18/2015 Recorded influenza, whole 01/17/2005 [facility] HospitalComment on above:Result Comment: Electronically Signed By: Francisco BELTRAN, Yaniv Sanabria.br\Date and Time Signed: 08/01/24 14:24 EDTOffice Visiton 04-41-0385Bvnjuj-up [id number] Una Gomez 1940 F Date Provider Department Center 07/24/2024 425-CRISSY SCHULER MP [facility] Medical Pavi No family history on file Level of Service:35324 [place] OFFICE/OUTPATIENT NEW LOW MDM 30 MINUTES (GC) Reason for Visit and Comments: Hip Pain [330333] - Right Leg Pain [078799] - RightNormalUniversity of The Hospital At Westlake Medical CenterOptical coherence tomography study reporton 86-42-2882CQSQHugh Ch[facility] Radiology Study observation (narrative)NOMS HealthcareAmbulatory Visit Summaryon 11-21-7522Gkpbsxxwpl Visit SummaryAmbulatory Visit Summary UNA GOMEZ :1940 [...] PM EDT With: Yaniv Singh MD Where: [address] [address]- Monday 11:00 AM EDT With: Where: [address] [address]- Medications What How Much When [...] you for choosing us for your care. [facility] Medicine Office/Clinic Noteon 57-94-4183Ohjdwm Medicine Office/Clinic NoteMclean Hospital Medicine Office/Clinic Note HPI Staff Una [...] day(s), # 6 tab(s), Refills(s) 0, Pharmacy: [facility]/pharmacy #6177, 147, cm, 05/20/24 10:52:00 EDT, [...] # 21 tab(s), Refills(s) 0, Pharmacy: [facility]/pharmacy #6177, 147, cm, 05/20/24 10:52:00 EDT, Height/Length Dosing, 58.5, kg, 05/20/24 10:52:00 EDT, Weight Dosing 2. Cough, (R05.9: Cough, unspecified)Cough covid and flu both negative Ordered: azithromycin, = 1 packet(s), Oral, As Directed, as directed on package labeling, X 5 day(s), # 6 tab(s), Refills(s) 0, Pharmacy: [facility]/pharmacy #6177, 147, cm, 05/20/24 10:52:00 EDT, Height/Length Dosing, 58.5, kg, 05/20/24 10:52:00 EDT, Weight Dosing brompheniramine/dextromethorphan/PSE, 5 mL, Oral, QID for cough and congestion, 200 mL, Refill(s) 0, [facility]/pharmacy #6177, 147, cm, 05/20/24 10:52:00 EDT, Height/Length Dosing, 58.5, kg, 05/20/24 10:52:00 EDT, Weight Dosing methylPREDNISolone, = 1 packet(s), Oral, As Directed, as directed on package labeling, X 6 day(s), # 21 tab(s), Refills(s) 0, Pharmacy: [facility]/pharmacy #6177, 147, cm, 05/20/24 10:52:00 EDT, Height/Length Dosing, 58.5, kg, 05/20/24 10:52:00 EDT, Weight Dosing Influenza Type A&B POC 08125 Rapid COVID POC 60490 3. BMI 27.0-27.9,adult (Z68.27: Body mass index [BMI] 27.0-27.9, adult) BMI education given Ordered: azithromycin, = 1 packet(s), Oral, As Directed, as directed on package labeling, X 5 day(s), # 6 tab(s), Refills(s) 0, Pharmacy: [facility]/pharmacy #6177, 147, cm, 05/20/24 10:52:00 EDT, Height/Length Dosing, 58.5, kg, 05/20/24 10:52:00 EDT, Weight Dosing brompheniramine/dextromethorphan/PSE, 5 mL, Oral, QID for cough and congestion, 200 mL, Refill(s) 0, [facility]/pharmacy #6177, 147, cm, 05/20/24 10:52:00 EDT, Height/Length Dosing, 58.5, kg, 05/20/24 10:52:00 EDT, Weight Dosing methylPREDNISolone, = 1 packet(s), Oral, As Directed, as directed on package labeling, X 6 day(s), # 21 tab(s), Refills(s) 0, Pharmacy: [facility]/pharmacy #6177, 147, cm, 05/20/24 10:52:00 EDT, Height/Length Dosing, 58.5, kg, 05/20/24 10:52:00 EDT, Weight Dosing 4. Non-smoker (Z78.9: Other specified health status) continue not smoking Ordered: azithromycin, = 1 packet(s), Oral, As Directed, as directed on package labeling, X 5 day(s), # 6 tab(s), Refills(s) 0, Pharmacy: [facility]/pharmacy #6177, 147, cm, 05/20/24 10:52:00 EDT, Height/Length Dosing, 58.5, kg, 05/20/24 10:52:00 EDT, Weight Dosing brompheniramine/dextromethorphan/PSE, 5 mL, Oral, QID for cough and congestion, 200 mL, Refill(s) 0, [facility]/pharmacy #6177, 147, cm, 05/20/24 10:52:00 EDT, Height/Length Dosing, 58.5, kg, 05/20/24 10:52:00 EDT, Weight Dosing methylPREDNISolone, = 1 packet(s), Oral, As Directed, as directed on package labeling, X 6 day(s), # 21 tab(s), Refills(s) 0, Pharmacy: [facility]/pharmacy #6177, 147, cm, 05/20/24 10:52:00 EDT, Height/Length Dosing, 58.5, kg, 05/20/24 10:52:00 EDT, Weight Dosing Orders: levothyroxine, See Instructions, TAKE 1 TABLET BY MOUTH EVERY DAY, # 90 tab(s), Refills(s) 1, Pharmacy: [facility]/pharmacy #6177, 147, cm, 05/20/24 10:52:00 EDT, Height/Length Dosing, 58.5, (more content not included)...[facility] Medical CenterComment on above:Result Comment: Electronically Signed By: Marlee Martinez\.br\Date and Time Signed: 05/20/24 11:06 EDTAmbulatory Visit Summary on 80-99-5143Cofpgtcqbv Visit SummaryAmbulatory Visit Summary UNA GOMEZ :1940 [...] EDT With: Francisco BELTRAN, Yaniv Pope Where: [address] [address]- Monday 11:00 AM EDT With: Where: [address] [address]- Medications What How Much When Instructions Unchanged [...] you for choosing us for your care. [facility] Medicine Office/Clinic Noteon 82-15-9211Jgdkmm Medicine Office/Clinic NoteMclean Hospital Medicine Office/Clinic Note Chief Complaint Foot [...] regarding fitting [facility] suitable [facility], [facility] [...] to her footwear needs, I advised contacting [facility] as soon as they resume operations, to [...] Tab, See Instructions, (more content not included)...Normal [facility] CenterComment on above:Result Comment: Electronically Signed By: Francisco BELTRAN, Yaniv Pope\.br\Date and Time Signed: 05/13/24 13:49 EDTX-ray reportOrdered By: Nory Jarrett on 52-01-8534Pnhqi reportKNOX COMM[facility] [address] [place] [address] XRay Report Signed Patient: Una Gomez MR#: [id number] : 1940 Acct:[id number] Age/Sex: 84 / F ADM Date: 5 Loc: [facility] [place]: Type: [facility] Attending Dr: Fred Hernandez II, MD [...] Nory Jarrett M.D.05/08/2024 4:04 PM Dictation Location: [place] [address] Transcribed By: NURYS 05/08/24 1604 Dictated By: Nory Jarrett MD 05/08/24 1602 Signed By: 05/08/24 1604 [facility] Work Phone: XR hip RT min 2V(w/wo pelvis)*on 07-87-8069EK hip RT min 2V(w/wo pelvis)*[facility] [address] [place] [address] XRay Report Signed Patient: Una Gomez MR#: [id number] : 1940 Acct:[id number] Age/Sex: 84 / F ADM Date: 05/08/24 [place]: [facility] [place]: Type: [facility] Attending Dr: Fred Hernandez II, MD [...] Nory Jarrett M.D.05/08/2024 4:04 PM Dictation Location: [place] [address] Transcribed By: [facility] 05/08/24 1604 Dictated By: Nory Jarrett MD 05/08/24 1602 Signed By: 05/08/24 1604[facility] Physician GroupFacape cod hospital Medicine Office/Clinic Noteon 21-21-6505Evawvx Medicine Office/Clinic NoteFami Medicine Office/Clinic Note Chief [...] home and fear of being dizzy. Ordered: [facility] [place]ulatory Referral 2. BMI 27.0-27.9,adult (Z68.27: Body mass index [BMI] 27.0-27.9, adult) Monitor weight and provide guidance on maintaining a healthy BMI through balanced diet and exercise, as discussed with the patient. Ordered: [facility] [place] Ref[place] 3. Overweight (BMI 25.0-29.9) (E66.3: Overweight) Reinforce healthy lifestyle modifications, including diet and physical activity, to maintain or reduce weight and improve overall health, considering the patient's age and mobility status. Ordered: [facility] [place] Referral 4. 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 Ordered: [facility] [place] Ambulatory Referral 5. 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 Continuation of current routine, with consideration for orthopedic assessment if functional concerns arise. Ordered: [facility] [place] Ambulatory Referral 6. Nonsmoker (Z78.9: Other [...] management options including Tylen (more content not included)...[facility] County Medical CenterComment on above:Result Comment: Electronically Signed By: Yaniv Singh MD\.br\Date and Time Signed: 04/08/24 11:14 ESTOptical coherence tomography study reporton 55-36-1058MDTJTenet St. Louis HealthcareRadiology Study observation (narrative)NOM[facility] HealthcareAmbulatory Visit Summaryon 01-13-5281Qakznumscz Visit SummaryAmbulatory Visit Summary UNA GOMEZ :1940 [...] EDT With: Francisco BELTRAN, Yaniv Pope Where: [address] [address]- Monday 11:00 AM EDT With: Where: [address] [address]- Medications What How Much When Why Instructions New methylPREDNISolone (Medrol Dosepack 4 mg Tab) 1 Packets By Mouth As Directed Primary hypertension Hypothyroidism BMI 27.0-27.9,adult Overweight Nonsmoker Osteoarthritis of hip Left sciatic nerve pain Post-poliomyelitis muscular atrophy Nasal congestion Duration: 6 Days as directed on package labeling Pickup at [facility] #0787 Unchanged acetaminophen (Tylenol Extra Strength) 500 Milligram [...] TABLET BY MOUTH EVERY DAY Pharmacy Information [facility] #6177: [address] [place], [place] [phone] Allergies Augmentin (Unknown) Diflucan (Unknown) sulfa drugs [...] you for choosing us for your care. [facility] Medicine Office/Clinic Noteon 35-09-7613Fqaolo Medicine Office/Clinic NoteMclean Hospital Medicine Office/Clinic Note HPI Staff Una [...] # 21 tab(s), Refills(s) 0, Pharmacy: [facility] #6177, 147, cm, 02/13/24 10:53:00 EST, [...] 21 tab(s), Refills(s) 0, [facility], cm, 02/13/24 10:53:00 EST, [...] 21 tab(s), Refills(s) 0, [facility] 147, cm, 02/13/24 10:53:00 EST, [...] 21 tab(s), Refills(s) 0, [facility] 147, cm, 02/13/24 10:53:00 EST, [...] mm Hg (Most Recent (more content not included)...[facility] County Medical CenterComment on above:Result Comment: Electronically Signed By: Yaniv Singh MD\.br\Date and Time Signed: 02/13/24 11:19 ESTAmbulatory Visit Summaryon 76-64-5126Miqciqmhai Visit SummaryAmbulatory Visit Summary UNA GOMEZ :1940 [...] EST With: Francisco BELTRAN, Yaniv Pope Where: [address] [address]- Monday 11:00 AM EDT With: Where: [address] [address]- Medications What How Much When Why Instructions New methylPREDNISolone (Medrol Dosepack 4 mg Tab) 1 Packets By Mouth As Directed Cellulitis Left sciatic nerve pain Duration: 6 Days as directed on package labeling Pickup at [facility]pharm[facility] #6294 Unchanged acetaminophen (Tylenol Extra Strength) 500 Milligram [...] Nonsmoker Pharmacy Information [facility]6177: [address], [place] [phone] Allergies Augmentin (Unknown) Diflucan (Unknown) sulfa drugs [...] person's weight is (more content not included)... [facility] Medicine Office/Clinic Noteon 01-16-2024 Family Medicine Office/Clinic [...] day(s), # 21 tab(s), Refills(s) 0, [facility] 147, cm, 01/16/24 11:11:00 EST, Height/Length [...] day(s), # 21 tab(s), Refills(s) 0, [facility] 147, cm, 01/16/24 11:11:00 EST, Height/Length [...] virus vaccine, inactivated 12/14/2022 Recorded SARS-CoV-2 (COVID-19) mRNAMUL.ORD![id number] 02/10/2022 Recorded influenza virus vaccine, inactivated 12/27/2021 Recorded SARS-CoV-2 (COVID-19) mRNA-1273 vaccine 03/17/2021 Recorded 2022-07-04: TPV80 influenza virus vaccine, inactivated 02/10/2021 Recorded pneumococcal 23-valent vaccine 09/11/2020 Recorded SARS-CoV-2 (COVID-19) mRNA-1273 vaccine 05/05/2020 Recorded SARS-CoV-2 (COVID-19) mRNA-1273 vaccine 04/07/2020 Recorded pne (more content not included)...[facility] Medical CenterComment on above:Result Comment: Electronically Signed [...] tobacco concerns: No. Ye (more content not included)...[facility] Medical CenterComment on above:Result Comment: Electronically Signed By: Francisco BELTRAN, Yaniv Sanabria.br\Date and Time Signed: 01/08/24 14:52 ESTAmbulatory Visit Summaryon 97-90-3500Howitzdldx Visit SummaryAmbulatory Visit Summary UNA GOMEZ :1940 [...] AM EST With: Yaniv Singh MD Where: [address] [address]- Monday 11:00 AM EDT With: Where: [address] [address]- Medications What How Much When [...] By Mouth Every 12 hours Pickup at [facility] #6132 Unchanged digoxin (digoxin 125 mcg (0.125 mg) [...] EVERY DAY Pharm[facility] Information [facility]: [address], [place] [phone] Allergies Augmentin (Unknown) Diflucan (Unknown) sulfa drugs [...] you for choosing us for your care. [facility] Medicine Office/Clinic Noteon 18-21-7206Wzgoxu Medicine Office/Clinic NoteMclean Hospital Medicine Office/Clinic Note Chief Complaint Possible Infection HPI Staff nUa is a 83 year old female presenting [...] q12hr, # 20 cap(s), Refills(s) 0, Pharmacy: [facility]acy #6177, 147, cm, 01/03/24 11:43:00 EDT, Height/Length [...] virus vaccine, inactivated 12/14/2022 Recorded SARS-CoV-2 (COVID-19) mRNAMUL.ORD![id number] (more content not included)... [facility] Medical CenterComment on above:Result Comment: Electronically Signed By: Marlee Martinez\.br\Date and Time Signed: 01/03/24 12:21 TTM88ei 08-72-903956Bbjxbxtja dig level from 12/11/2023: FRANSISCO Blake MA Please let her know her digoxin level looks good. Thanks Patient informed.Pomerene HospitalCHEMISTRYOrdered By: SYSTEM SYSTEM on 88-03-9108Ubauwob Lvl0.6 ng/mLNormal0.5 - 1.9 ng/mLRemisol Chem Digoxinon 53-94-5365Ybdzstv Lvl0.6 ng/mLNormal0.5-1.9[facility] Comment on above:Performed By: #### [id number] ####[facility] [facility] Feaelugqff[address] Druconnecticut children[facility] [place], [place] [address]Lkmrpu Visiton 21-27-8888Ldyfmc-up [id number] LangleyUna paniagua Radha 1940 F Date Provider Department Center 11/30/2023 MELISSA DELACRUZ CARD [facility] No family history on file Level of Service:[address] [place] OFFICE/OUTPATIENT ESTABLISHED LOW MDM 20 [facility]Opt[facility] coherence tomography study reporton 05-75-3615JSPFTenet St. [place] HealthcareRadiology Study observation (narrative) [facility]OM[facility] HealthcareAmbulatory Visit Summaryon 27-36-7333Mnuxzwyyhb Visit Summary Ambulatory Visit Summary UNA GOMEZ [...] EST With: Francisco BELTRAN, Yaniv Pope Where: [facility] [address] [place] [address]- \.br\ Medications\.br\ What How Much When Instructions\.br\ [...] if questions or concerns \.br\ Unchanged meclizine (dvofunhxl52 mg Tab) 1 Tablets By Mouth Every [...] for your care.\.br\ \.br\[facility] Medicine Office/Clinic Noteon 40-53-8924Owyswz Medicine Office/Clinic NoteFamily Medicine Office/Clinic Note HPI [...] to not smoke. Orders: Lab Specimen Collect [id number] Lipid Panel Follow-up No qualifying data available [...] virus vaccine, inactivated 12/14/2022 Recorded SARS-CoV-2 (COVID-19) mRNAMUL.ORD![id number] 02/10/2022 Recorded influenza virus vaccine, inactivated 12/27/2021 Recorded SARS-CoV-2 (COVID-19) mRNA-1273 vaccine 03/17/2021 Recorded 2022-07-04: TPV80 influenza virus vaccine, inactivated 02/10/2021 Recorded pneumoco (more content not included)...[facility] CenterComment on above:Result Comment: Electronically Signed By: Francisco BELTRAN, Yaniv Sanabria.br\Date and Time Signed: 09/19/23 10:30 EDTCHEMISTRYOrdered By: SYSTEM SYSTEM on 98-39-2779Fphpobc [Mass/Vol]4.5 g/dLNormal3.3 - 5.0 gm/dLRemisol Chem Albumin/Globulin [Mass ratio]1.6 {ratio}Normal1.1 - 2.2Remisol ChemALP [Catalytic activity/Vol]81 [iU]/lUveduv16 - 98 Int._Unit/LRemisol ChemALT No additional P-5'-P [Catalytic activity/Vol]23 [iU]/dNormal6 - 46 Int._Unit/L Remisol ChemAnion gap [Moles/Vol]11 mmol/LNormal6 - 16 mEq/LRemisol ChemAST [Catalytic activity/Vol]25 [iU]/dNormal5 - 43 Int._Unit/LRemisol ChemBilirubin [Mass/Vol]1.4 mg/dLHigh0.0 - 1.1 mg/dLRemisol ChemCalcium [Mass/Vol]9.4 mg/dL Normal8.9 - 11.1 mg/dLRemisol ChemChloride [Moles/Vol]105 mmol/ZEwxawi379 - 111 mmol/LRemisol ChemCholesterol [Mass/Vol]105 mg/nAGiq723 - 200 mg/dLRemisol Chem Cholesterol in HDL [Mass/Vol]32 mg/dLInvalid Interpretation CodeRemisol Chem Comment on above:Result Comment: '>= 60 LOW RISK' '<= 40 HIGH RISK'Cholesterol in LDL [Mass/Vol]60 mg/dLNormal<=129mg/dLRemisol ChemCholesterol in VLDL [Mass/Vol]28 mg/dLNormal7 - 40 mg/dLRemisol ChemCO2 [Moles/Vol]25 mmol/DTcbrjw77 - 31 mmol/LRemisol ChemCreatinine [Mass/Vol]0.7 mg/dLNormal0.5 - 1.3 mg/dLRemisol MfimrYBY09 mL/min/1.73 i0Lramgg>=59mL/min/1.73 k2Pepiutp ChemGlobulin (S) [Mass/Vol]2.8 g/dLNormal1.4 - 4.0 gm/dLRemisol Chem Glucose [Mass/Vol]96 mg/tPXygdoe56 - 199 mg/dLRemisol ChemPotassium [Moles/Vol] 4.1 mmol/LNormal3.5 - 5.3 mmol/LRemisol ChemProtein [Mass/Vol]7.3 g/dLNormal6.0 - 7.8 gm/dLRemisol ChemSodium [Moles/Vol]137 mmol/VGfejot901 - 145 mmol/LRemisol ChemTriglyceride [Mass/Vol]142 mg/dLNormal<=149mg/dLRemisol ChemTSH Qn1.34 m[IU]/LNormal0.34 - 5.60 mcIU/mLRemisol ChemUrea nitrogen [Mass/Vol]19 mg/dL Normal5 - 21 mg/dLRemisol ChemUrea nitrogen/Creatinine [Mass ratio]27 mg/mgHigh 10 - 20Remisol ChemCMPon 79-32-4437Ubhfnwk [Mass/Vol]4.5 g/dLNormal3.3-5.0JaradSaint Luke InstituteComment on above:Performed By: #### [id number] #### [place] [facility] [address] [place], [place] [address]Dbfkfqe/Globulin (S) [Mass conc ratio]1.2Lkczbx3.1-2.2FGeorgetown Behavioral HospitalComment on above:Performed By: #### [id number] #### [facility] [address], [place] [address]HFZ [Catalytic activity/Vol]81 Int._Unit/ILqlceh32-55PdvhbrSouthern Ohio Medical CenterComment on above:Performed By: #### [id number] #### [facility] [address], [place] [address]ODB No additional P-5'-P [Catalytic activity/Vol]23 Int._Unit/L Normal6-46[facility] Medical CenterComment on above:Performed By: #### [id number] #### [facility] [address] [place] [address]Yqdhh gap [Moles/Vol]11 mmol/LNormal6-16[facility] Medical CenterComment on above:Performed By: #### [id number] #### [facility] [address] [place] [address]VOO [Catalytic activity/Vol]25 Int._Unit/LNormal5-43[facility] Medical CenterComment on above:Performed By: #### [id number] #### [facility] [address] [place] [address]Svnlqxpyb [Mass/Vol]1.4 mg/dLHigh0.0-1.1FGeorgetown Behavioral HospitalComment on above:Performed By: #### [id number] #### [facility] [address], [place] [address]Vfzsmyk [Mass/Vol]9.4 mg/dLNormal8.9-11.1FGeorgetown Behavioral HospitalComment on above:Performed By: #### [id number] #### [facility] [address] [place] [address]Kaecpjpg [Moles/Vol]105 mmol/HEagvju680-434EkglktSouthern Ohio Medical CenterComment on above:Performed By: #### [id number] #### [facility] [address], [place] [address]CS1 [Moles/Vol]25 mmol/CVfnljr29-06NmndioSouthern Ohio Medical Center Comment on above:Performed By: #### [id number] #### [place] [facility] [address], [place] [address]Gpgfpxnuye [Mass/Vol]0.7 mg/dLNormal0.5-1.3FGeorgetown Behavioral HospitalComment on above:Performed By: #### [id number] #### [facility] [address], [place] [address]Fzjjqvcl (S) [Mass/Vol]2.8 g/dLNormal1.4-4.0[facility] Medical CenterComment on above:Performed By: #### [id number] #### [facility] [address] [place], [place] [address]Dfejhmx [Mass/Vol]96 mg/pTZjgvkn12-605NefvntSouthern Ohio Medical CenterComment on above:Performed By: #### [id number] #### [facility] [address], [place] [address]Bdheftrld [Moles/Vol]4.1 mmol/LNormal3.5-5.3FGeorgetown Behavioral HospitalComment on above:Performed By: #### [id number] #### [facility] [address], [place] [address]Omgzkqr [Mass/Vol]7.3 g/dLNormal6.0-7.8[facility] Medical CenterComment on above:Performed By: #### [id number] #### [facility] [address], [place] [address]Zypltd [Moles/Vol]137 mmol/NXhxwly128-898PwjbbnSouthern Ohio Medical CenterComment on above:Performed By: #### [id number] #### [facility] [address], [place] [address]Ukvu nitrogen [Mass/Vol]19 mg/dLNormal5-21[facility] Medical CenterComment on above:Performed By: #### [id number] #### [facility] [address], [place] [address]Jpty nitrogen/Creatinine [Mass ratio]27 No NukfcUxas22-85EvkorjSouthern Ohio Medical CenterComment on above:Performed By: #### [id number] #### [facility] [address], [place] [address]Vvdos Panelon 08-13-6710Ntahhjavxnu [Mass/Vol]105 mg/dLLow 120-200Southern [facility] Medical CenterComment on above:Performed By: #### [id number] #### [facility] [address], [place] [address]Mzvgdbhiqut in HDL [Mass/Vol]32 mg/dLInvalid Interpretation CodeSouthern Ohio Medical CenterComment on above:Result Comment: '>= 60 LOW RISK' '<= 40 HIGH RISK'Performed By: #### [id number] #### [facility] [address], [place] [address]Oiblwgqzxsy in LDL [Mass/Vol]60 mg/dLNormal<=129Southern [facility] Medical CenterComment on above:Performed By: #### [id number] #### [facility] [address] [place], [place] [address]Wjnjuybrfnx in VLDL [Mass/Vol]28 mg/dLNormal7-40[facility] Medical CenterComment on above:Performed By: #### [id number] #### [facility] [address] [place], [place] [address]Pwjbyhfvirct [Mass/Vol]142 mg/dLNormal<=149Southern [facility] Medical CenterComment on above:Performed By: #### [id number] #### [facility] [address] [place], [place] [address]ROQ With T4fr Reflexon 96-03-4345DYN Qn1.34 m[IU]/LNormal 0.34-5.60[facility] Medical CenterComment on above:Performed By: #### [id number] #### [facility] [address] [place], [place] [address]oGZFky 51-83-9389qBPN29 mL/min/1.73 a5Pkeley>=59Fisher [facility] HospitalComment on above:Order Comment: Order added by Discern Expert. Performed By: #### [id number] #### [facility] [address] [place], [place] [address]Oofnndvlrn Visit Summaryon 71-25-8189Fxcadovemc Visit Summary Ambulatory Visit Summary UNA GOMEZ [...] 9:20 AM EDT With: Where: [facility] Bellrochester regional healthInvalid Interpretation [address] [place] [address]- \.br\ Monday 11:00 AM EDT \.br\ With:\.br\ Where: [facility] Medicine Office/Clinic Noteon 87-90-5311Wbdmce Medicine Office[facility]Cl[facility] NoteM[facility]/Clinic Note Chief Complaint Medicare [...] of clutter to prevent tripping and/or falling. [place] Advance Directives reviewed. Documents remain at home [...] PCP visit. Labs to be completed with [facility] on a nurse visit. No concerns [...] is ready she has a really good flexible babysitter she cantalk to and she can talk [...] she plans to call to hire a chrome cleaner but has not done it yet. Follow up with PCP. 3. Primary hypertension (I10: Essential (primary) hypertension) Patient taking medications daily as directed, BP not monitored at home. Patient does voice understanding with signs and symptoms to monitor for. HTN stoplight handout reviewed with importance of keeping BP <140/90 to prevent increased cardiovascular risks. DASH dietary handout reviewed with impo(more content not included)...[facility] County Medical CenterComment on above:Result Comment: Electronically Signed By: LEA WALLACE CNP\.br\Date and Time Signed: 09/14/23 15:23 EDT\.br\Electronically Co-Signed By: Brittney Weber LPN\.br\Date and Time Co-Signed: 09/14/23 14:34 EDTCHEMISTRYOrdered By: SYSTEM SYSTEM on 17-00-6587Bawemsh [Mass/Vol]4.4 g/dLNormal3.3 - 5.0 gm/dLFTMC Remisol Albumin/Globulin [Mass ratio]1.6 {ratio}Normal1.1 - 2.2FTMC RemisolALP [Catalytic activity/Vol]77 [iU]/aOilncy72 - 98 Int._Unit/LFTMC RemisolALT No additional P-5'-P [Catalytic activity/Vol]20 [iU]/dNormal6 - 46 Int._Unit/LFTMC RemisolAnion gap [Moles/Vol]12 mmol/LNormal6 - 16 mEq/LFTMC RemisolAST [Catalytic activity/Vol]25 [iU]/dNormal5 - 43 Int._Unit/LFTMC RemisolBilirubin [Mass/Vol]1.1 mg/dLNormal0.0 - 1.1 mg/dLFTMC RemisolCalcium [Mass/Vol]9.4 mg/dL Normal8.9 - 11.1 mg/dLFTMC RemisolChloride [Moles/Vol]104 mmol/BEiozyl216 - 111 mmol/LFTMC RemisolCholesterol [Mass/Vol]107 mg/xYJgu629 - 200 mg/dLFTMC Remisol Cholesterol in HDL [Mass/Vol]30 mg/dLInvalid Interpretation CodeFTMC Remisol Cholesterol in LDL [Mass/Vol]60 mg/dLNormal<=129mg/dLFTMC RemisolCholesterol in VLDL [Mass/Vol]30 mg/dLNormal7 - 40 mg/dLFTMC RemisolCO2 [Moles/Vol]26 mmol/L Snvcmb84 - 31 mmol/LFTMC RemisolCreatinine [Mass/Vol]0.8 mg/dLNormal0.5 - 1.3 mg/dLFTMC RemisolGFR/1.73 sq M.predicted among non-blacks MDRD (S/P/Bld) [Vol rate/Area]73 mL/min/1.73 s7Ftmibc>=59mL/min/1.73 m2FTMC Chem SGlobulin (S) [Mass/Vol]2.8 g/dLNormal1.4 - 4.0 gm/dLFTMC RemisolGlucose [Mass/Vol]96 mg/dL Xtjhst27 - 199 mg/dLFTMC RemisolPotassium [Moles/Vol]4.1 mmol/LNormal3.5 - 5.3 mmol/LFTMC RemisolProtein [Mass/Vol]7.2 g/dLNormal6.0 - 7.8 gm/dLFTMC Remisol Sodium [Moles/Vol]138 mmol/FYtyqks688 - 145 mmol/LFTMC RemisolTriglyceride [Mass/Vol]151 mg/dLHigh<=149mg/dLFTMC RemisolTSH Qn1.42 m[IU]/LNormal0.34 - 5.60 mcIU/mLFTMC RemisolUrea nitrogen [Mass/Vol]13 mg/dLNormal5 - 21 mg/dLFTMC RemisolUrea nitrogen/Creatinine [Mass ratio]16 mg/kaHrjlce65 - 20FTMC Remisol Covid-19 PCR (CVDTBH)on 52-14-2098HKJO-CoV-2 (COVID-19) RNA JESSIE+probe Ql (Unsp spec)DetectedCritically abnormalNOT DETECTEDThe [facility]ayette Medical CenterComment on above:Result Comment: This test is not yet approved or cleared by the [place] FDA. When there are no FDA-approved or cleared tests available, and other criteria are met, FDA can make tests available under an emergency access mechanism called an Emergency Use Authorization (EUA). The EUA for this test is supported by the [employer] of Health and Human Service's declaration that [...] longer be used).Performed By: #### CVDTBH #### [facility] [address] [address] [address] Galindo ChangECHOCARDIO M/2D COMPLETEon 04-18-9304YCYKPRPRNZ M/2D COMPLETE Patient: UNA GOMEZ Exam Date: 07/19/2021 : 1940 Gender:F Ordering : DR AMAURY MONTERROSO . Admission #: [id number] Family : Order #: [id number] CLICK HERE TO VIEW EXAM ECHOCARDIOGRAM REPORT [...] Area(A2C): 14.80 cm2 Left Atrium Systolic Volume(A2C): 66788 mm3 Mitral Valve MV E to A [...] by: Curtis Naylor M.D. on 07/19/2021 at 18:28[facility] LEFT 3 [facility] 15-77-3448IYSW LEFT 3 [facility] Department of Radiology [address] [place] [phone] Patient Name: UNA GOMEZ : 1940 [...] findings. Electronically signed: Trell Enciso. Transcribed by: [email or web address], User Resident: TRELL ENCISO Electronically Signed by: TRELL ENCISO @ 07/17/2020 10:46 AM I personally read this/these film(s) with this [facility]-FairhillComment on above:Order Comment: , , , Ordering Provider - NICOLLE JAY MD , KNEE RIGHT 3 VWSon 22-62-3164RTXZ RIGHT 3 SUniACMC Healthcare System Department of Radiology [address] [place] [phone] Patient Name: UNA GOMEZ : 1940 Sex: F Age: Race: White Pt. Location: Patient Status: D Ordered Date: 07/16/2020 2:00:00 PM Completed Date: 07/16/2020 01:59 PM Requesting Provider: NICOLLE JAY Attending Provider: Report Copy To: Signs & Symptoms: M25.561 Pain in right knee I10 History: Mnoe Comments: , , , Ordering Provider - [...] remodeling. Electronically signed: Trell Enciso. Transcribed by: [email or web address], User Resident: TRELL ENCISO Electronically Signed by: TRELL ENCISO @ 07/17/2020 08:46 AM I personally read this/these film(s) with this [facility]-FairhillComment on above:Order Comment: , , , Ordering Provider - NICOLLE JAY MD , HIPS BILATERAL 2 VWS WITH PELVISon 81-30-2200YCOS BILATERAL 2 VWS WITH PELVISUnUniversity [facility] Department of Radiology [address] [place] [phone] Patient Name: UNA GOMEZ : 1940 Sex: F Age: Race: White Pt. Location: 84 Patient Status: O Ordered Date: 07/06/2020 1:25:00 PM Completed Date: 07/06/2020 01:28 PM Requesting Provider: BERTHA MULTANI Attending Provider: BERTHA MULTANI Report Copy To: AMAURY MONTERROSO Signs & Symptoms: M25.551 Pain in right hip I10 History: [place] Comments: evaluate Exam: HIPS BILATERAL 2 VWS [...] changes. Electronically signed: Lincoln Brooke. Transcribed by: [id number], User Resident: Electronically Signed by: LINCOLN BROOKE @ 07/06/2020 02:00 PMNormalThe [facility] Pike Medical CenterComment on above:Order Comment: evaluateOperative Report on 40-26-7086Eoqfaxkoy ReportMR#: [id number] I [facility] Pt. Name: Una Gomez Room #: [id number] Discharge 04/15/2020 Date: Birthdate: 1940 OPERATIVE REPORT DATE OF SURGERY: 04/14/2020 SURGEON: Bertha Multani MD PLUGGER WORKER: Bruno Schafer MD. ANESTHESIA: General with interscalene [...] osteoarthritis of the left shoulder joint with jsyg-fe-xxyq as well as severe massive retracted chronic [...] followed the cou (more content not included)...NormalThe [facility] HEMOGLOBINon 42-71-4966Oulchzhpzq (Bld) [Mass/Vol]12.7 g/mUIazvyn62.0-15.0The [facility]ike Medical CenterComment on above:Order Comment: No: Do not add to previous drawPerformed By: #### [id number] #### [address] [place] [address], [place] GLUCOSE LABon 36-22-8251Dwsnfin [Mass/Vol]97 mg/dL Oivklf08-788Ode [facility] Medical CenterComment on above:Performed By: #### [id number] #### [address] [place] [address], USAPORTABLE SHOULDER LEFT 2 VWSon 71-96-8264EWKLTSWO SHOULDER LEFT 2 SUniversSelect Medical Specialty [facility] Department of Radiology [address] [place] [phone] Patient Name: UNA GOMEZ : 1940 Sex: F Age: Race: White Pt. Location: [place] [address] Patient Status: I Ordered Date: 04/14/2020 5:10:00 [...] failure Electronically signed: Efrain Cuello. Transcribed by: [email or web address], User Resident: EFRAIN CUELLO Electronically Signed by: EFRAIN CUELLO @ 04/14/2020 06:12 PM I personally read this/these film(s) with this [facility]hillComment on above:Order Comment: Hardware Evaluation, in PACU Vital Signs Date TimeVital SignValuePerforming CacavcghdXvwfkhku03-96-8980 11:06-0400Body xjdfmi724.48 Rachel Singh MD Work Phone: [facility]10-01-2025 11:06-0400 Body mass index (BMI) [Ratio]22.6 kg/x4GvvrrbYaniv Singh MD Work Phone: 1(567)[address] [place], [place] 4586510-01-2025 11:06-0400 Body axdlje25.24 kgYaniv Singh MD Work Phone: 1(730)[address] [place], [place] 4586510-01-2025 11:06-0400 Diastolic blood gzogvjbx61 mm[Hg]Yaniv Singh MD Work Phone: 1(316)[address] [place], [place] 4586510-01-2025 11:06-0400 Heart rate78 /Padmini Singh MD Work Phone: 1(780)[address] [place], [place] 4586510-01-2025 11:06-0400 Respiratory rate18 /Padmini Singh MD Work Phone: 1(259)[address] [place], [place] 4586510-01-2025 11:06-0400 SaO2% (BldA) [Mass fraction]98 %Yaniv Singh MD Work Phone: 1(084)[address] [place], [place] 4586510-01-2025 11:06-0400 Systolic blood dfnoweed570 mm[Hg]Yaniv Singh MD Work Phone: 1(278)[address] [place], [place] 4586509-29-2025 08:33-0400 Heart rate67 /Padmini Singh MD Work Phone: 1(899)[address] [place], [place] 4586509-29-2025 07:30-0400 Body cghbicmqscc04.4 [degF]Yaniv Singh MD Work Phone: 1(010)[address] [place], [place] 4586509-29-2025 07:30-0400 Diastolic blood uhrkthat82 mm[Hg]Yaniv Singh MD Work Phone: 1(145)[address] [place], [place] 4586509-29-2025 07:30-0400 Respiratory rate17 /Padmini Singh MD Work Phone: 1(133)[address] [place], [place] 4586509-29-2025 07:30-0400 SaO2% (BldA) [Mass fraction]98 %Yaniv Singh MD Work Phone: 1(921)[address] [place], [place] 4586509-29-2025 07:30-0400 Systolic blood uupqroxo085 mm[Hg]Yaniv Singh MD Work Phone: 1(888)[address] [place], [place] 4586509-28-2025 06:22-0400 Body eexpax81.3 kgYaniv Singh MD Work Phone: 1(390)[address] [place], [place] 4586509-22-2025 13:39-0400 Body tduncl510.32 cmStanner Singh MD Work Phone: 1(071)[address] [place], [place] 4586509-22-2025 13:39-0400 Body falmdhnqjgq56.8 [degF]Yaniv Singh MD Work Phone: 1(167)[address] [place], [place] 4586509-22-2025 13:39-0400 Body kgYaniv Singh MD Work Phone: 1(878)[address] [place], [place] 4586509-22-2025 13:39-0400 Diastolic blood wfntranr24 mm[Hg]Yaniv Singh MD Work Phone: 1(864)[address] [place], [place] 4586509-22-2025 13:39-0400 Respiratory rate18 /Padmini Singh MD Work Phone: 1(071)[address] [place], [place] 4586509-22-2025 13:39-0400 SaO2% (BldA) [Mass fraction]97 %Yaniv Singh MD Work Phone: 1(315)[address] [place], [place] 4586509-22-2025 13:39-0400 Systolic blood gezbbvhb911 mm[Hg]Yaniv Singh MD Work Phone: 1(027)[address] [place], [place] 4586509-22-2025 11:45-0400 Body lavvwlsfmjh45.7 [degF]Yaniv Singh MD Work Phone: 1(212)[address] [place], [place] 4586509-22-2025 11:45-0400 Diastolic blood ocpjpejp25 mm[Hg]Yaniv Singh MD Work Phone: 1(092)[address] [place], [place] 4586509-22-2025 11:45-0400 Heart rate76 /Padmini Singh MD Work Phone: 1(966)[address] [place], [place] 4586509-22-2025 11:45-0400 Respiratory rate16 /Padmini Singh MD Work Phone: 1(643)[address] [place], [place] 4586509-22-2025 11:45-0400 SaO2% (BldA) [Mass fraction]96 %Yaniv Singh MD Work Phone: 1(025)[address] [place], [place] 4586509-22-2025 11:45-0400 Systolic blood qprcezuq751 mm[Hg]Yaniv Singh MD Work Phone: 1(284)[address] [place], [place] 4586509-22-2025 06:00-0400 Body neyrfh64.5 kgYaniv Singh MD Work Phone: 1(457)[address] [place], [place] 4586509-17-2025 16:12-0400 Inhaled oxygen flow rate0 L/minStanner Singh MD Work Phone: 1(897)[address] [place], [place] 4586509-16-2025 08:15-0400 Body jeqhdi726.32 cmStanner Singh MD Work Phone: 1(532)[address] [place], [place] 4586507-03-2025 20:05-0400 Body alcbyx412.16 cmStanner Singh MD Work Phone: 1(694)[address] [place], [place] 0214907-03-2025 20:05-0400 Body llqesplndmb70.1 [degF]Yaniv Singh MD Work Phone: 1(413)[address]07-03-2025 20:05-0400 Body rmhaio93 kgYaniv Singh MD Work Phone: 1(366)[address]07-03-2025 20:05-0400 Diastolic blood unkndaaj08 mm[Hg]Yaniv Singh MD Work Phone: 1(298)[address]07-03-2025 20:05-0400 Heart rate75 /Padmini Singh MD Work Phone: 1(846)275-[address] [place], [place] 4460807-03-2025 20:05-0400 Respiratory rate18 /Padmini Singh MD Work Phone: 1(319)[address]07-03-2025 20:05-0400 SaO2% (BldA) [Mass fraction]94 %Yaniv Singh MD Work Phone: 1(185)844-[address] [place], [place] 4460807-03-2025 20:05-0400 Systolic blood zhfzuvmc828 mm[Hg]Yaniv Singh MD Work Phone: 1(084)[address] [place], [place] 0214907-03-2025 08:48-0400 Body hfqmnu676.32 Rachel Singh MD Work Phone: 1(255)[address] [place], [place] 0214907-03-2025 08:48-0400 Body mass index (BMI) [Ratio]26.5 kg/a9NwlqmdYaniv Singh MD Work Phone: 1(117)[address] [place], [place] 0214907-03-2025 08:48-0400 Body jtpows46.6 kgYaniv Singh MD Work Phone: 1(749)[address] [place], [place] 0214907-03-2025 08:48-0400 Diastolic blood qjxexdlr06 mm[Hg]Yaniv Singh MD Work Phone: 1(337)[address] [place], [place] 0214907-03-2025 08:48-0400 Heart rate74 /Padmini Singh MD Work Phone: 1(821)[address] [place], [place] 0214907-03-2025 08:48-0400 Respiratory rate18 /Padmini Singh MD Work Phone: 1(460)[address] [place], [place] 0214907-03-2025 08:48-0400 SaO2% (BldA) [Mass fraction]97 %Yaniv Singh MD Work Phone: 1(057)[address] [place], [place] 0214907-03-2025 08:48-0400 Systolic blood jmvkmmwa292 mm[Hg]Yaniv Singh MD Work Phone: 1(449)[address] [place], [place] 0214906-19-2025 11:18-0400 Body sruhsm971.86 Rachel Singh MD Work Phone: 1(748)[address] [place], [place] 0214906-19-2025 11:18-0400 Body mass index (BMI) [Ratio]25.8 kg/o5FtopxlYaniv Singh MD Work Phone: 1(499)[address] [place], [place] 0214906-19-2025 11:18-0400 Body ajandr08 kgYaniv Singh MD Work Phone: 1(878)[address] [place], [place] 0214904-08-2025 14:19-0400 Body mivrob895.3 cmKareem Dolce DPM FACFAS Work Phone: 1(835)[address] [place], [place] 4972104-08-2025 14:19-0400Body mass index (BMI) [Ratio]26.33 kg/j5Lnbpqu Dolce DPM FACFAS Work Phone: 1419)[address] [place], [place] 4972104-08-2025 14:19-0400Body .15 kgKareem Dolce DPM FACFAS Work Phone: 1(419)[address] [place], [place] 4972104-08-2025 14:19-0400Diastolic blood ipfjhygs10 mm[Hg]Uli Dolce DPM FACFAS Work Phone: 1419)[address] [place], [place] 4972104-08-2025 14:19-0400Heart rate67 /min Uli Dolce DPM FACFAS Work Phone: 1419)[address] [place], [place] 4972104-08-2025 14:19-0400Systolic blood welsmzmf472 mm[Hg]Uli Dolce DPM FACFAS Work Phone: 1419)[address] [place], [place] 4972103-20-2025 14:14-0400Body ciduke305.3 cmKareem Dolce DPM FACFAS Work Phone: 1(493)[address] [place], [place] 4972103-20-2025 14:14-0400Body mass index (BMI) [Ratio]26.33 kg/o6Exvrkr Dolce DPM FACFAS Work Phone: 1(122)[address] [place], [place] 4972103-20-2025 14:14-0400Body tsxsze54.15 kgKareem Dolce DPM FACFAS Work Phone: 1419)[address] [place], [place] 4972103-20-2025 14:14-0400Diastolic blood nxhdrucf90 mm[Hg]Uli Dolce DPM FACFAS Work Phone: 1419)[address] [place], [place] [id number] 14:14-0400Systolic blood uibxyndy945 mm[Hg]Uli Dolce DPM FACFAS Work Phone: [phone] [place], [place] 4972103-05-2025 13:25-0500Body ayreqq275.86 cmSamuel Ross MD Work Phone: [phone] [place], [place] 4460803-05-2025 13:25-0500 Body mass index (BMI) [Ratio]25.8 kg/c6EmcpncYaniv Singh MD Work Phone: [phone] [place], [place] 4460803-05-2025 13:25-0500 Body ndmetr28.05 kgYaniv Singh MD Work Phone: [phone] [place], [place] 4460802-05-2025 11:34-0500 Body mxhxah105.86 Rachel Singh MD Work Phone: [phone]02-05-2025 11:34-0500 Body mass index (BMI) [Ratio]26 kg/a6HimmfeYaniv Singh MD Work Phone: [phone]02-05-2025 11:34-0500 Body sprjsu82.51 kgYaniv Singh MD Work Phone: [phone] [place], [place] 4460802-05-2025 11:34-0500 Diastolic blood rtidgnxu39 mm[Hg]Yaniv Singh MD Work Phone: [phone]02-05-2025 11:34-0500 Heart rate76 /minStanner Singh MD Work Phone: [phone] [place], [place] 4460802-05-2025 11:34-0500 Systolic blood tkkbcilc809 mm[Hg]Yaniv Singh MD Work Phone: [phone] [place], [place] 4460812-05-2023 15:15-0500 Body bglcza892.86 cmImad Asaad Other [employer] Other 12-05-2023 15:15-0500Body mass index (BMI) [Ratio] 27.87 kg/m2Imad Asaad Other [facility] [employer] Other 12-05-2023 15:15-0500Body upvkym83.6 kgImad Asaad Other 642.772.3021[employer] Other 12-05-2023 15:15-0500Diastolic blood oaipfusn58 mm[Hg] Imad Asaad Other [employer] Other 12-05-2023 15:15-0500Systolic blood jngrecvg848 mm[Hg] Imad Asaad Other [employer] Other 10-10-2023 14:15-0400Body tsewlm226.86 cmImad Asaad Other [employer] Other 10-10-2023 14:15-0400Body mass index (BMI) [Ratio] 29.28 kg/m2Imad Asaad Other [employer] Other 10-10-2023 14:15-0400Body xfoysx85.77 kgImad Asaad Other [employer] Other 10-10-2023 14:15-0400Diastolic blood gbfmqooz82 mm[Hg] Imad Asaad Other [employer] Other 10-10-2023 14:15-0400Systolic blood mm[Hg] Imad Asaad Other [employer] Other Encounters Encounter DateEncounter TypeCare ProviderFacilityStart: 25-82-5805fgrcumaahfHME Jodi L SchwabFacility:[facility] BellevueStart: 68-22-3387kveenravnyWeqtbq L. Bobbs [facility]Start: 91-34-7599yzapsawsjkHzthkc L. BobbsFacility:[facility] BellevueStart: 01-16-2025 End: 47-82-5023kfnnxqjnmdKslgpa L. BobbsFacility:[facility] BellevueStart: 01-10-2025 End: 77-59-6197mijbdrnxddZxydwb L. BobbsFacility:[facility] BellevueStart: 01-08-2025 End: 26-53-1667nexqbmeqoxAvjeth L. BobbsFacility:[facility] BellevueStart: 01-03-2025 End: 41-28-5529zkcrpwvqwhQzfn Lynn Schwab INSURANCE PROCESSOR-C Work Phone: [phone]-Xahsmqxnj Health OrthopedicsStart: 01-03-2025 End: 97-10-3955Lyfqyaz encounter procedureRobert David Mcneil MD-[facility] Orthopedics Work Phone: Start: 01-03-2025 End: 95-52-8879ljxyogvagyUjac Lynn Schwab INSURANCE PROCESSOR-C Work Phone: -Meli Gómez OrthoStart: 01-03-2025 End: 63-57-6506Sxcfrcs encounter procedureRobert David Gómez OrthoStart: 12-16-2024 End: 87-15-2556pjtggpbepcLAIXJV A LEHMANNFacility:[facility] BellevueStart: 12-12-2024 End: 73-61-2219uoxdifybenEjgj L SchwabFacility:[facility] BellevueStart: 12-06-2024 End: 57-71-4595qotzluicxfWhrm Lynn Schwab INSURANCE PROCESSOR-C Work Phone: [facility] Work Phone: Start: 12-06-2024 End: 60-77-2100Qnnsloh encounter procedureRobfadumo Mcneil MD-[facility] Orthopedics Work Phone: Start: 12-04-2024 End: 66-04-2301nadasnulwvDukyzy E Ross MD Work Phone: [facility] Work Phone: Start: 12-04-2024 End: 61-84-5318Poalzpl encounter procedureLucie Yanes APRN-[facility] Cardiology Work Phone: Start: 12-03-2024 End: 46-51-9919ntqtayiwdhHyqo L SchwabFacility:CD:[id number]: 12-02-2024 Non-patient / Non-visitChrislinda Boone MD-[facility] Work Phone: Start: 98-28-1034Hkq-patient / Non-visitRobert David Mcneil MD-[facility] Orthopedics Work Phone: Start: 11-25-2024 End: 80-14-8181Pndsyabusb and management of inpatientChristian Melchor Boone MD[address] Rehab Work Phone: Start: 11-19-2024 End: 11-41-0211dntchqcnquKnbjJonah Albertcility:[facility] Centertart: 72-65-6313Zpa-patient / Non-visitRobert David Mcneil MD-[facility] Orthopedics Work Phone: Start: 11-12-2024 End: 95-40-2095Akjpyuv encounter procedureCurtis Morales MD -Electrodiagnostics Work Phone: Start: 11-12-2024 End: 47-17-1622zswjzslqpzHjoait E Ross MD Work Phone: [facility] Work Phone: Start: 11-08-2024 End: 87-77-9544lzhfgmpfqtMvbixv E Ross MD Work Phone: [facility] Work Phone: Start: 11-08-2024 End: 61-74-2133Ybhbveu encounter procedureFred Mcneil MD-[facility] Orthopedics Work Phone: Start: 11-07-2024 End: 42-82-6179qwkrqvlliqDmypsk E Ross MD Work Phone: [facility] Work Phone: Start: 11-07-2024 End: 54-20-5787Xocvohi encounter procedureFred Mcneil MD-[facility] Orthopedics Work Phone: Start: 19-26-9750Ruihopkdpw RecurringFred Mcneil MD-Physical Therapy Bone CreekStart: 74-16-8374fsjmegjhrtFyykxb M David II Facility:[facility] Centertart: 61-17-5515Nrmegammx for other preprocedural examinationFred Hernandez IIThe [facility] Physician GroupStart: 11-01-2024 End: 08-75-1779Kmqnxpt encounter procedureFred Mcneil MD-Pre-Surgical Testing Work Phone: Start: 11-01-2024 End: 07-79-1039pfzzokahkhDdjzsc E Ross MD Work Phone: [facility] Work Phone: Start: 61-29-9702Mzxaflqdi for preprocedural laboratory examinationJuanert Tarun Hernandez IIThe [facility] Physician GroupStart: 10-30-2024 End: 37-17-4613Lpxaqokike Louise DO Work Phone: [facility] EyeStart: 10-30-2024 End: 97-10-0276Nvapynkike Louise DO Work Phone: [facility] EyeStart: 10-30-2024 End: 01-40-5808hajuvhbbfxYGNXTXMZ D ZAHLERNot AvailableStart: 10-21-2024 End: 31-61-1308qlevmxsoneYIEEA ELATTARUniKettering Health Daytontart: 10-02-2024 End: 68-39-8811uofxewklxtHGQCRM A LEHMANNFacility:[facility] BellevueStart: 10-01-2024 End: 54-39-7059llnovrfzxuAZJCEQ A LEHMANNFacility:[facility] BellevueStart: 09-26-2024 End: 61-11-4420sfmhbmsbafRVM Marlee L SchwabFacility:[facility] BellevueStart: 27-77-0012lyqbeztrnaAYG Marlee L SchwabFacility:[facility] BellevueStart: 09-09-2024 End: 56-27-9477cdkeacjiufOYO Marlee L SchwabFacility:[facility] BellevueStart: 09-05-2024 End: 44-34-8977Xscpyzsrj department patient visitStanner Singh MD Work Phone: [phone]-Jltrvicwg Room Work Phone: Start: 09-05-2024 End: 63-40-1506mwakoqkadoNqovap E Ross MD Work Phone: [facility] Work Phone: Start: 09-05-2024 End: 30-21-0773Epnxjae encounter procedureGeorcristobal Morales MD-[facility] Cardiology Work Phone: Start: 08-29-2024 End: 18-23-8828eegzhmhsvaSPM Marlee L SchwabFacility:FT FM evueStart: 08-22-2024 End: 61-75-6338Xmnksff encounter procedureRobfadumo Mcneil [facility] Hospitaltart: 08-22-2024 End: 77-29-3796mjrqbckuiuXfzwzf M Carlisle IIFacility:[facility] Centertart: 08-22-2024 End: 10-32-7246Gyehyrk encounter procedureFred Mcneil MD-[facility] Orthopedics Work Phone: Start: 08-20-2024 End: 06-49-9313Zxj Drop Chuck Singh [facility] Start: 08-20-2024 End: 04-11-8672dsdfrsbldgHnvklm E. RossFacility:[facility] BellevueStart: 08-01-2024 End: 20-81-9009qofpcnhncmJnpgcg E. RossFacility:[facility] BellevueStart: 07-24-2024 [facility]: 06-26-2024 End: 32-89-3153Sapokh flowsheetJonathan D Zahler DO Work Phone: noms NB OPHTStart: 06-26-2024 End: 27-25-1351Xdcjxw flowsheetJonathan D Zahler DO Work Phone: noms NB OPHTStart: 06-26-2024 End: 47-20-2005yddsmsacrpSZBBSINJ D ZAHLERNot AvailableStart: 06-11-2024 End: 66-03-5927Yjqosu flowsheetKareem R Dolce DPM FACFAS Work Phone: [facility] ASC PODStart: 06-11-2024 End: 73-35-8697Rfdhvx flowsheetKareem R Dolce DPM FACFAS Work Phone: NOMS ASC PODStart: 06-11-2024 End: 94-87-4208Wmhoiu outpatient visit 15 minutesKareem R Dolce DPM FACFAS Work Phone: noMS NMA PODComment on above:Neoplasm of uncertain behavior of skin (Primary Dx); Plantar verrucaStart: 06-11-2024 End: 78-87-8367faljptoynxJZLXFQ R DOLCENot AvailableStart: 05-23-2024 End: 85-52-9664wppnsopryrBLSMOA R DOLCENot AvailableStart: 05-23-2024 End: 90-18-0197Kziwsa outpatient new 30 minutesKareem R Dolce DPM FACFAS Work Phone: NOMS NMA PODComment on above:Neoplasm of uncertain behavior of skin (Primary Dx); Plantar verruca; Pain in right toe(s)Start: 05-20-2024 End: 94-56-7166msnnpijwzzHTK Jodi L SchwabFacility:[facility] BellevueStart: 05-13-2024 End: 18-18-2188vgxkedocaxUqsvkb E. RossFacility:[facility] FM BellevueStart: 05-08-2024 End: 17-01-6148kpgxndwoukZbjdky E Ross MD Work Phone: [facility] Work Phone: Start: 05-08-2024 End: 20-26-1240Dcldnff encounter procedureStanner Singh MD Work Phone: [facility] Physician [facility] Work Phone: Start: 04-10-2024 End: 62-22-3821jrdnhurnmlRurpsj E Ross MD Work Phone: [facility] Work Phone: Start: 04-10-2024 End: 88-85-8439Goesvtr encounter procedureStanner Singh MD Work Phone: [facility] Work Phone: Start: 04-08-2024 End: 79-93-4181aabmyfbevcLoxqpa E. RossFacility:FT BellevueStart: 03-05-2024 End: 92-07-3966Oipmccr encounter procedureStanner Singh MD Work Phone: [facility] Work Phone: Start: 03-05-2024 End: 92-41-7376usqdjvefwqCxlp AsaadFacility:[facility] Start: 02-21-2024 End: 68-66-1896Asdycc flowsIvonne Louise DO Work Phone: noms NB OPHTStart: 02-21-2024 End: 38-69-6293Kzmaul flowsIvonne Louise DO Work Phone: noms NB OPHTStart: 02-21-2024 End: 51-77-8349ujoqiefbgmVMHKJQVF D ZAHLERNot AvailableStart: 02-13-2024 End: 23-19-8192xqurpgafhbRV Samuel E. RossFacility:[facility] FM BellevueStart: 01-22-2024 End: 47-50-9302Hjouzorqe encounterKlaus Mckeon DO Work Phone: N[facility] SWS FM 230Start: 01-16-2024 End: 97-70-6004ghjifsmddsMyjmqm E. RossFacility:[facility] FM BellevueStart: 01-08-2024 End: 70-79-5240quzbzscpjzUuqrmq E. RossFacility:[facility] FM BellevueStart: 01-03-2024 End: 44-04-8300oxfvqffmedJCM Jodi L SchwabFacility:[facility] BellevueStart: 12-11-2023 End: 02-43-1808Cvp Drop offMELISSA BONECKER [facility] Start: 12-11-2023 End: 16-92-4959zybjrarpkfFC Samuel E. RossFacility:FT FM BellevueStart: 11-30-2023 End: 73-33-7289revnsvrgqtQOGLNYF [facility] Centertart: 11-20-2023 End: 53-49-6729Rdruxb Patricia Louise DO Work Phone: N[facility] NB OPHTStart: 11-20-2023 End: 86-95-1537Phfwle flowsheetOttoniel Louise DO Work Phone: [facility] NB OPHTStart: 11-20-2023 End: 58-11-2905djqsiqrohuDANHMMJC D ZAHLERNot AvailableStart: 09-19-2023 End: 18-02-6430xdaulyfafyKjiird E. RossFacility:[facility] FM BellevueStart: 09-18-2023 End: 11-93-1340Hlb Drop Chuck Singh [facility] Start: 09-18-2023 End: 50-69-4771atlgfjuwftCE Yaniv Pope RossFacility:FTMCStart: 09-14-2023 End: 38-39-2432usxdikioekKWF Marlee MalcolmFacility:FT FM BellevueStart: 02-07-2023 End: 32-02-4855zpwubhnbenRwae Asaad Other [facility] [employer] Other Start: 98-98-2229Orotxq outpatient new 45 minutesImad AsaadFPG GastroenterologyStart: 12-13-2022 End: 17-91-2066tuggpiyrayQmmj Asaad Other [place] [employer] Other Start: 71-29-5390Vqrilf outpatient new 45 minutesImad AsaadFPG GastroenterologyStart: 09-09-2022 End: 38-01-1929Jro Drop offMarlee Malcolm [facility] Start: 06-08-2022 End: 51-46-9122odgcwptwshQDOOL D HIGHLANDERFacility:U5Apfqh: 03-03-2022 End: 34-95-2116lnlupljavrHYCZT D HIGHLANDERFacility:L5Crmfy: 01-03-2022 End: 70-10-8204obdhucoikbJPLHBMRY CULLENFacility:K1Dkylg: 12-22-2021 End: 89-38-9068ojkjnvobgkTG KIM E KNIGHT .Facility:S0Rzrem: 11-29-2021 End: 77-56-7209yqnqoigdaxVWZWY D HIGHLANDERFacility:S8Ihdjn: 09-07-2021 End: 98-97-2208bbxexamjwoIS KIM E KNIGHT .Facility:Q5Ezrit: 08-27-2021 End: 09-68-2557djgfmqwoolKDYWF D HIGHLANDERFacility:S8Vobir: 07-19-2021 End: 83-33-1267jkfvnhdlqhTX KIM E KNIGHT .Facility:S3Lbpbi: 04-14-2020 End: 53-56-4675Ednerslgil and management of inpatientKIM KNIGHTFacility:[facility] Procedures DateProcedureProcedure DetailPerforming ClinicianStart: 86-02-5058Szndo X-ray of right hipJodi Yun INSURANCE PROCESSOR-C Work Phone: Start: 14-70-6114Leyvoydillfk ophthalmic imaging retinaAbbiejovannydalton Mely Dani DO Work Phone: Start: 10-30-2024 End: 71-69-8091Jbmqc medical xm&eval [facility] pt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Ottoniel Boone Dani DO Work Phone: comment on above: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 (Primary Dx); Dry eyes; Blepharitis of upper and lower eyelids of both eyes, unspecified typeStart: 24-27-0687Vnjgv X-ray of right shoulderYaniv Singh MD Work Phone: Start: 30-79-9017Fojej Screen MRSA/Juanjose Singh MD Work Phone: Start: 78-36-8551Dgznrsxknwcw ophthalmic imaging retinaOttoniel Sanchezagnesjordana DO Work Phone: Start: 06-26-2024 End: 31-08-4004DmofdHighlands [facility]&eval [facility] pt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Ottoniel Louise DO Work Phone: comment on above: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 (Primary Dx); Dry eyes; Blepharitis of upper and lower eyelids of both eyes, unspecified typeStart: 16-92-6236Gyrgb X-ray of right hipStanner Singh MD Work Phone: Start: 59-02-1648Maendhwaqy elastography of liver Yaniv Singh MD Work Phone: Start: 01-86-1316Ocpeapnaasyb ophthalmic imaging retinaOttoniel Louise DO Work Phone: Start: 02-21-2024 End: 09-35-9575Unvmy medical xm&eval comprhnsv estab pt 1/>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Ottoniel Louise DO Work Phone: comment on above: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 (Primary Dx); Dry eyes; Blepharitis of upper and lower eyelids of both eyes, unspecified typeStart: 86-18-8647Oyyrvkyezfai ophthalmic imaging retinaOttoniel Louise DO Work Phone: Start: 11-20-2023 End: 00-12-6020Jngpf medical xm&eval intermediate estab pt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Ottoniel Louise DO Work Phone: comment on above: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 (Primary Dx); Dry eyes; Blepharitis of upper and lower eyelids of both eyes, unspecified typeStart: 83-40-8779ZXLNSEHSXH WITH RESPIRATORY VENTILATION, <24 HRSOSAMA ELATTARStart: 68-08-5424PFBCRWXZCZX OF L SHOULDER JT WITH SYNTH SUB, OPEN APPROACHOSAMA ELATTARStart: 85-31-9506NQOJYORSPX LEFT UPPER ARM TENDON, OPEN APPROACHOSAMA ELATTARBilateral cataracts (disorder)Marlee Yun CholecystectomyJodi Yun Prosthetic arthroplasty of shoulderJodi Yun Comment on above:right 2019 Plan of Treatment DateCare ActivityDetailAuthorStart: 62-69-6019Xjpgx X-ray of right hipXR hip RT min 2V(w/wo pelvis)*[facility] Centertart: 87-02-6718BD Hip - right 2 ViewsTrinity [facility] System [facility] Medical Centertart: 87-68-8246EdoazdsqcTrinity Health System [facility] Medical Centertart: 31-10-1869Nfaxdxdsznvkq metabolic 2000 panel - Serum or PlasmaTrinity Health System [facility] Medical Centertart: 66-38-9518HxajfxqnnTrinity Health System [facility] Medical Centertart: 37-35-6291Geyviayf admissionTrinity Health System [facility] Medical Centertart: 79-17-7384Gzlbqme referral to dietitianTrinity Health System [facility] Medical Centertart: 12-14-5839Wvysqikx therapy procedureTrinity Health System [facility] Medical Centertart: 17-42-0380Edtvnvgv to clinical allergistTrinity [facility] System [facility] Medical Centertart: 00-59-0103Pyagpwsv to occupational therapistTrinity [facility] Medical Centertart: 66-94-6652Ompfhczcf procedureTrinity Health System [facility] Medical Centertart: 53-04-1649RswcpzfkhTrinity Health System [facility] Medical Centertart: 39-11-3478OinmwbxjaTrinity Health System [facility] Medical Centertart: 80-93-3252Ujurpkvs to rehabilitation physicianTrinity Health System [facility] Medical Centertart: 11-19-2024 Hospital admissionTrinity Health System [facility] Medical Centertart: 30-59-9930Giodgbho to clinical allergistTrinity [facility] System [facility] Medical Centertart: 70-53-5044Xzycpoauk vaccinationInfluenza Vaccine (#1)NOM HealthcareStart: 70-49-8379VgfzgdpyvTrinity Health System [facility] City Medical Centertart: 10-30-2024 End: 59-64-2427Sdujjcm encounter lzelyqxph56/27/2025 1:15 PM EDT Office Visit [facility] [address] [place] [address] Ottoniel Louise, DO [address] [place] [address] ArrivedNOMerit Health Natchez EyeComment on above:ArrivedStart: 92-04-9021PfqotwayuTrinity Health System [facility] City Medical Centertart: 06-26-2024 End: 54-74-4750Luqihhy encounter procedureNOMS NB OPHTComment on above:Arrived Start: 06-11-2024 End: 84-55-0446Oalitpi encounter procedureNOMS NMA PODComment on above:Arrived Start: 87-81-2748Lotxd X-ray of right hipXR hip RT min 2V(w/wo pelvis)*[facility] Centertart: 80-00-9943IS Hip - right 2 ViewsTrinity Health System [facility] Medical Centertart: 50-20-7456WpiavhklbTrinity Health System Twin City Medical Centertart: 02-21-2024 End: 44-14-4869Alyanfu encounter procedureNOMS NB OPHTComment on above:Arrived Start: 11-20-2023 End: 51-44-6519Mppuzey encounter /16/2024 1:30 PM EDT Office Visit NOMRadha DEL ANGEL OPHT [address] [place] [address] Ottoniel Louise DO [address] [place] [address] ArrivedNOMS NB OPHTComment on above:ArrivedStart: 80-06-6958Wgyirreuj vaccinationInfluenza Vaccine (#1)[facility] HealthcarePatient EducationMercy Health [facility] Work Phone: Patient referralMercy Health Lor[facility] Hospital [facility] Work Phone: [facility] TransthoracicHCA [facility] Immunizations Immunization DateImmunizationNotesCare RwsziqjfHpflcvti43-92-1352cobnswiwz virus vaccine, unspecified formulationOttoniel Louise DO Work Phone: [phone]-RrvndSelect Medical Specialty [facility], Inc 74-89-9571qhqmkalld virus vaccine, unspecified formulationStanner Singh 809-6785Mebiys-XisuxSelect Medical Specialty Hospital [facility], Inc 97-45-4057DIJD-CoV-2 (COVID-19) mRNAMUL.ORD!o63428Txme Yun 128-1749Mpidfe-ZnytpCleveland Clinic Ment[facility] Hospital10-24-2022 influenza virus vaccine, unspecified formulationJodi Yun 164-5484Lgwdeo-TuqchCleveland Clinic [facility] Hospital01-12-2022 SARS-CoV-2 (COVID-19) mRNA-1273 vaccineJodi Yun 306-5736Xelzap-SbgvpCleveland Clinic Mentor HospitalComment on above: Result Comment: 2022-07-04: FTC8450-12-7159jyogaakmk virus vaccine, unspecified formulationJodi Yun 562-3584Xkkivq-LxsasCleveland Clinic [facility] Hospital07-09-2021 pneumococcal polysaccharide vaccine, 23 valentJodi Yun 824-3170Gukemw-UgbrwCleveland Clinic [facility] Hospital03-02-2021 SARS-CoV-2 (COVID-19) mRNA-1273 vaccineJodi Yun 743-8341Oqqkvr-NgobjCleveland Clinic [facility] Hospital02-02-2021 SARS-CoV-2 (COVID-19) mRNA-1273 vaccineJodi Yun 017-8193Zidcbq-IljazCleveland Clinic [facility] Hospital07-09-2020 pneumococcal conjugate vaccine, 13 valentJodi Yun 848-0442Prksne-StsycCleveland Clinic [facility] Hospital11-29-2019 influenza virus vaccine, unspecified formulationJodi Yun 394-3677Meuixn-JweufC[facility] Clinic [facility] Hospital11-27-2018 influenza virus vaccine, unspecified formulationJodi Yun 120-9718Gwyocz-BusjcC[facility] Clinic [facility] Hospital12-30-2016 influenza virus vaccine, unspecified formulationJodi Yun 008-1004Xloqcf-SqxwcC[facility] Clinic [facility] Hospital01-13-2016 influenza virus vaccine, unspecified formulationJodi Yun 013-4820Exzaig-SxngjCleveland Clinic [facility] Hospital11-14-2005 influenza, wholeJodi Yun 571-2448Vxdckj-StlnnCleveland Clinic [facility] Payers DatePayer CategoryPayerPolicy [id number] 2024Self-pay [id number] [id number] [id number] [id number] 2.16.840.1.310811.3.57[id number] 2.16.840.1.479572.3.57[id number] 2.16.840.1.421180.3.579.[id number] 2.16.840.1.464952.3.579.2.29571-55-5162Xlvgvfe3985170 2.16.840.1.855099.3.579.2.10360-69-2432Ftujpje8010968 2.16.840.1.761495.3.579.2.22145-21-0636Cggigix3604124 2.16.840.1.135928.3.579.2.05773-34-4964Mddcwud2588595 2.16.840.1.321628.3.579.2.33267-55-2434Dfylqnn4701822 2.16.840.1.142490.3.579.2.22008-14-2898Ngwqeid15266964 2.16.840.1.837169.3.579.[id number] 2.16.840.1.038254.3.579.[id number] 2.16.840.1.437083.3.579.2.94770-18-0977Pvvnjqg82213370 2.16.840.1.972190.3.579.2.07512-90-5067Llrhxom79321368 2.16.840.1.941951.3.579.2.65173-10-8503Mbzsasp00435729 2.16.840.1.096954.3.579.2.18947-21-2893Sjibkev17024367 2.16.840.1.229086.3.579.2.41296-52-1483Upltddr33124072 2.16.840.1.070815.3.579.2.14750-24-7863Chysmzi25341398 2.16.840.1.764592.3.579.2.17746-24-5753Wtpbcyx77960761 2.16840.1.275674.3.579.2.23853-16-6308Qritpuo72173369 2.16.840.1.101315.3.579.2.36961-80-6140Torxmcc16941986 2.16.840.1.379723.3.579.2.22728-32-8877Bgggica36551358 2.16.840.1.911642.3.579.2.83787-96-8418Inrmpzt82594839 2.16.840.1.091175.3.579.2.02389-57-5851Cethrja19449774 2.16.840.1.267775.3.579.2.51065-67-1590Cjvrmwn84952857 2.16.840.1.809369.3.579.2.75364-58-0754Gfsyijw84792144 2.16.840.1.694191.3.579.2.08654-90-3270Orkzrld34571783 2.16.840.1.836507.3.579.2.104901-20-0016Iwszjfb3899976 2.16.840.1.884763.3.579.2.087667-29-4781Clnwgyd7041283 2.16.840.1.243276.3.579.2.607071-72-7533Ygrrimw0059971 2.16840.1.178372.3.579.2.183824-10-4506Hmzkasa8852420 2.16840.1.699496.3.579.2.764173-39-3745Jscydub4964574 2.16840.1.036385.3.579.2.944440-05-2413Xjhpfdn07202637 2.16840.1.810522.3.579.2.43665-26-0546Spzunei24340246 2.16840.1.452941.3.579.2.86118-59-8323Muotfbz76005813 2.16.840.1.511648.3.579.2.09436-12-5127Jhujvra24118290 2.16840.1.275326.3.579.2.83839-84-9587Kqihyli93895248 2.16840.1.898691.3.579.2.79545-35-9775Keqcakg98477781 2.16840.1.857968.3.579.2.82705-05-5987Cbhkgju12660368 2.16840.1.681120.3.579.2.85844-96-5429Qhqtxow00484583 2.16840.1.889426.3.579.2.35204-02-4897Jvikuie11205271 2.16840.1.871537.3.579.2.47954-37-4455Cqowfnd81468933 2.840.1.238692.3.579.2.66564-74-7636Gyydysb27016195 2.840.1.199092.3.579.2.48817-89-9647Yuzxrzg11249623 2.840.1.573809.3.579.2.25012-81-6260Bimdgyo90871257 2.0.1.581136.3.579.2.83022-65-2485Gogqjoi66098481 2..1.103861.3.579.2.52635-91-0055Krbxtlq34984005 2.0.1.238115.3.579.2.727[facility] IoeyhtcmxANRS3ZCLWojxoad76411798 2.840.1.746375.3.579.2.785Xppqstr56148794 2..1.394631.3.579.2.531 Krgxmfh10196176 2.84.1.229512.3.579.2.820Kxyevns18973523 2.0.1.232819.3.579.2.549Xyialwf45769619 2.0.1.851533.3.579.2.531 Nqxlofg27171650 2.840.1.318681.3.579.2.958Dvhioer90558295 2.0.1.247177.3.579.2.015Dskljsq64007949 2.840.1.551928.3.579.2.531 Nfigneh13667604 2.840.1.302112.3.579.2.320Bgvtztg90922229 2.16.840.1.837719.3.579.2.486Drsylei21808783 2.16.840.1.685086.3.579.2.531 Social History DateTypeDetailFacilityStart: 09-08-2022 End: 06-27-7768Obpjenh smoking statusNever smoked tobacco (finding)[facility] smoking statusNeverKettering Health [facility] BellevueStart: 08-02-2023 End: 71-30-2748Ffr [facility] Hospitaltart: 15-37-6271Wfqznxc use and exposureSmokeless tobacco non-userNOMS Healthcare Start: 08-02-2023 End: 16-45-3450Ifnniehao beverage intakeLifetime non-drinker (finding)[facility] HealthcareStart: 08-02-2023 End: 28-07-6924Nsnyhnu of Social functionNOMS HealthcareStart: 47-03-2656Cwksjbz Commentcaffeine: 1-2 cups per dayNOMS HealthcareStart: 87-16-1486Xuv assigned at [facility] HealthcareStart: 37-56-2558Owfprs identityIdentifies as female gender (finding)[facility] CenterTobamedical [facility] [place] [facility] smoking status NHISUnknown if ever smokedOhiohealth Grove City [facility] Hospital Work Phone: Start: 05-28-2018 End: 34-80-7796HubSclbxn (finding)[facility] Start: 11-25-2024 End: 04-73-4088OPDA Follow upSDOH Follow upMiami Valley Hospital Work Phone: NEGATED: Highlighted rowStart: NINFHistory of tobacco usePassive smokerNOID Healthcare Medical Equipment Procedure CodeEquipment CodeEquipment Original TextEquipment IdentifierDates Arthroplasty, hip, total, anterior approachAcetabular shell [id number] FDAStart: 71-68-1684Mwurhktvcsyo, hip, total, anterior approachCeramic femoral head prosthesis ()[id number] FDAStart: 92-34-0269Hhlhekqoiuhx, hip, total, anterior approachCoated hip femur prosthesis, modular ()[id number] FDAStart: 66-86-7830Hxyuixcrfptb, hip, total, anterior approachNon-constrained polyethylene acetabular liner ()[id number] FDAStart: 11-19-2024 Functional Status FaxbWsmjncvwrbOtzrdvFqxeietd68-41-0802Dqmoktjucx statusPatient Not at Baseline [facility] Work Phone: Mental Status VhcnDpsfmatadtEjwlezNbbhvvsv56-43-4393Yakhjywoh functionCognitive Status Patient is Progressing Toward BaselineMiami Valley Hospital Work Phone: Clinical Notes 04-22-2020 to 12-16-2024 Note Date & YgcgUaphYapmhiro29-17-5138 NotePatient Education Orthopedics Total Hip Replacement Total hip replacement is a surgery to replace your damaged hip joint. You may have this surgery to lessen your pain and to help your hip move better. Tell your doctor about: ??? Any allergies you have. ??? All medicines you are taking. This includes vitamins, herbs, eye drops, creams, and jmhk-ftg-wiolqks medicines. ??? Any problems you or family [...] medicines. ? Vitamins, herbs, and supplements. ? Cbpe-vyj-excycfy medicines. ??? Do not take aspirin or [...] You may need t (more content not included)...[facility] 11-07-2024 Evaluation note* Diagnosis Onset [...] 10:55amLeft bundle branch block (LBBB)acuteOctober 2024 10:55am [facility] Work Phone: 1(510) 462-814709-04-2025 Evaluation note* Diagnosis Onset Date Resolution Status [...] total replacement of right hipacuteOctober 2024 9:59am [facility] Work Phone: 1([phone]) 168-726008-27-2025 NoteRight Eye Quality was good. Scan locations included subfoveal. Progression has been stable. Findings include pigment epithelial detachment. Left Eye Quality was good. Scan locations included subfoveal. Progression has been stable. Findings include pigment epithelial detachment.[facility] CenterXgmxvevsyx63-98-8101 History of Present illness Narrative* Ottoniel Louise [...] lid scrubs were recommended. documented in this encounterOzarks Medical CenterGwutzhaizo00-09-8301 NoteOrthopedic Surgery Subjective Chief complaint: Chief Complaint [...] unspecified chronicity Bertha Multani MD Orthopedic Surgery, [facility] [employer] [facility] 10/21/24[facility]07-30-2025 NotePatient Education Infectious Disease Rash, Adult A rash is a breakout of spots or blotches on the skin. It can change the way your skin looks and feels. Many things can cause a rash. The goal of treatment is to stop the itching and keep the rash from spreading. Follow these instructions at home: Medicine Take or apply mzhh-iym-czfidpv and prescription medicines only as told by [...] provider. Document Revised: 12/09/2022 Document Reviewed: 12/09/2022 [employer]On Mobile Patient Education ? 2023 [employer].[facility] 09-26-2024 NoteNurse Consultation Note Reason [...] 50,000 intl units (1.25 mg) oral capsule, 99687 International_Unit= 1 cap(s), Oral, 2x/Wk, 3 refills Allergies Augmentin (Unknown) Diflucan (Unknown) sulfa drugs (Unknown) traMADol (Unknown) Immunizations Vaccine Date Status Comments influenza virus vaccine, inactivated 01/23/2024 Recorded influenza virus vaccine, inactivated 12/14/2022 Recorded SARS-CoV-2 (COVID-19) mRNAMUL.ORD![id number] 02/10/2022 Recorded influenza virus vaccine, inactivated 12/27/2021 [...] vaccine, inactivated 03/18/2015 Recorded influenza, whole 01/17/2005 Recorded[facility]07-07-2025 Note Patient Education Emergency Medicine Heart Attack A heart attack occurs when blood and oxygen supply to the heart is cut off. A heart attack can cause damage to the heart that cannot be fixed. A heart attack is also called a myocardial infarction, or AK. If you think you are having a [...] these instructions at home: Medicines ??? Take xdel-rwu-asqjyno and prescription medicines only as told by [...] vomit. ??? You fe (more content not included)...[facility]07-03-2025 Evaluation note* Diagnosis Onset Date [...] total replacement of right hipacuteSeptember 2024 8:00am [facility] Work Phone: 1(963) 476-202307-03-2025 Evaluation note* Diagnosis Onset Date Resolution Status [...] total replacement of right hipacuteSeptember 2024 1:32pm [facility] Work Phone: 1(459) 590-670207-03-2025 Evaluation note* Diagnosis Onset Date Resolution Status [...] 10:55amLeft bundle branch block (LBBB)acuteOctober 2024 10:55am [facility] Work Phone: 1(157) 971-675306-19-2025 Evaluation note* Diagnosis Onset Date Resolution Status Admit Date Personal history of poliomyelitis acuteJune 2024 11:02amPrimary osteoarthritis of right hipacuteJune 2024 11:02am [facility] Work Phone: 1(298) 258-686706-19-2025 Evaluation note* Diagnosis Onset Date Resolution Status Admit Date Personal history of poliomyelitis acuteJune 2024 11:02amPrimary osteoarthritis of right hipacuteJune 2024 11:02amHypertensionacuteJuly 2024 8:33amIrregular heart beatacuteJuly 2024 8:33amLeft bundle branch block (LBBB)acuteJuly 2024 8:33amPrimary osteoarthritis of right hipacuteJuly 2024 8:33am [facility] Work Phone: 1(684) 907-998706-19-2025 Evaluation note* Diagnosis Onset Date Resolution Status Admit Date Personal history of poliomyelitis acuteJune 2024 11:02amPrimary osteoarthritis of right hipacuteJune 2024 11:02amHypertensionacuteJuly 2024 8:33amIrregular heart beatacuteJuly 2024 8:33amLeft bundle branch block (LBBB)acuteJuly 2024 8:33amPrimary osteoarthritis of right hipacuteJuly 2024 8:33amPrimary osteoarthritis of right hipacuteSeptember 2024 1:56pm [facility] Work Phone: 1(967) 845-596005-21-2025 Note Attestation signed by Crissy Schuler MD [...] outside clinic near her home in the [facility] who she reports recommended right total hip [...] a 84 y.o. female who presents to [facility] today for hip [...] driving and uses a (more content not included)...[facility]04-23-2025 Note Right Eye Quality was good. Scan locations included subfoveal. Progression has been stable. Findings include abnormal foveal contour, pigment epithelial detachment. Left Eye Quality was good. Scan locations included subfoveal. Progression has been stable. Findings include abnormal foveal contour, pigment epithelial detachment.[facility] CenterNrjtvfkeiv77-41-1422 History of Present illness Narrative* Ottoniel Louise [...] lid scrubs were recommended. documented in this encounterOzarks Medical CenterPpfpvxmjge56-30-9313 History of Present illness Narrative* Uli Schulte [...] Uli Schulte DPM FACFAS documented in this encounterOzarks Medical CenterSsgmzkphvh12-05-6770 History of Present illness Narrative* JEANNINE Dolan [...] secondary to the pain. They have attempted yxuv-egh-wxefhno anti- inflammatory medications as well as edao-hvx-injmeos wart treatment to no avail. Patient haspolio [...] < 3 seconds Digits 1-5 bilateral NEURO: [place] Ru 5.07 monofilament was intact B/L. Vibratory [...] occlusive dressing. JEANNINE Dolan documented in this encounterOzarks Medical CenterKjmmgjjmcr01-01-4936 NotePatient Education Nutrition BMI for Adults Body [...] for Disease Control and Prevention: cdc.gov ??? [place] Heart Association: heart.org ??? National Heart, Lung, and Blood [place]: nhlbi.nih.gov This information is not intended to replace advice given to you by your health care provider. Make sure you discuss any questions you have with your health care provider. Document Revised: 11/10/2022 Document Reviewed: 11/03/2022 Elsevier Patient Education ? 2023 [employer].[facility] 04-10-2024 Evaluation note* Author Marija Vega [facility] 1:39pf74-xrqg-lbb female referred to the gastroenterology clinic for [...] and exercise. No need for medical therapy [facility] Work Phone: 1(410) 558-189102-03-2025 NotePatient Education Nutrition BMI for Adults Body [...] for Disease Control and Prevention: cdc.gov ??? [place] Heart Association: heart.org ??? National Heart, Lung, and Blood [place]: nhlbi.nih.gov This information is not intended to replace advice given to you by your health care provider. Make sure you discuss any questions you have with your health care provider. Document Revised: 11/10/2022 Document Reviewed: 11/03/2022 FaceOn Mobile Patient Education ? 2023 [employer].[facility] 02-21-2024 NoteRight Eye Quality was good. Scan locations included subfoveal. Progression has been stable. Findings include pigment epithelial detachment. Left Eye Quality was good. Scan locations included subfoveal. Progression has been stable. Findings include pigment epithelial detachment.[facility] CenterXpagjijpfj73-52-0168 History of Present illness Narrative* Ottoniel Louise, [...] lid scrubs were recommended. documented in this encounterOzarks Medical CenterVccdwthqac67-36-6910 Telephone encounter Note* Telephone Encounter - Julia Webber - 01/22/2024 2:55 PM EST Spoke with pt informing them that Dr. Bravo did not accept leora as a new patient. Pt voiced understanding [facility] CenterEkfusleici65-43-3728 Miscellaneous Notes* Telephone Encounter - Julia Webber - 01/22/2024 2:55 PM EST Spoke with pt informing them that Dr. Bravo did not accept leora as a new patient. Pt voiced understanding documented in this [facility]11-12-2024 NotePatient Education Nutrition BMI for Adults Body [...] for Disease Control and Prevention: cdc.gov ??? [place] Heart Association: heart.org ??? National Heart, Lung, and Blood [place]: nhlbi.nih.gov This information is not intended to replace advice given to you by your health care provider. Make sure you discuss any questions you have with your health care provider. Document Revised: 11/10/2022 Document Reviewed: 11/03/2022 FaceOn Mobile Patient Education ? 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 Assessment/Plan Anticoagulation management encounter (Z51.81: Encounter for therapeutic drug level monitoring) Current use of beta samm (Z79.899: Other buttermaker helper (current) drug therapy) nursing home (current) use of anticoagulants (Z79.01: nursing home (current) use of anticoagulants) Medications Albuterol (Eqv-ProAir [...] virus vaccine, inactivated 12/14/2022 Recorded SARS-CoV-2 (COVID-19) mRNAMUL.ORD![id number] 02/10/2022 Recorded influenza virus vaccine, inactivated 12/27/2021 [...] vaccine, inactivated 03/18/2015 Recorded influenza, whole 01/17/2005 RecordedSouthern [facility] Center09-26-2024 Note Cardiovascular Medicine [facility] SUBJECTIVE No chief complaint on file. [...] Echocardiogram: 10/05/2022 Mild left (more content not included)...[facility] 11-30-2023 NotePatient here for 1 year follow up aortic valve stenosis, LBBB, and hypertension. Had routine labs w/ lipid panel in September 2023. She denies chest pain, SOB, palpitations, and LE edema. Doing very well. Review of Systems All other systems reviewed and are negative.[facility] 11-20-2023 NoteRight Eye Quality was good. Scan locations included subfoveal. Progression has been stable. Findings include abnormal foveal contour, pigment epithelial detachment. Left Eye Quality was good. Scan locations included subfoveal. Progression has been stable. Findings include abnormal foveal contour, pigment epithelial detachment. Notes Vitelliform change central [facility] CenterTtytufbvsm54-22-6744 History of Present illness Narrative* Ottoniel Louise [...] lid scrubs were recommended. documented in this encounterOzarks Medical CenterAmwbrelpzm10-63-4705 NotePatient Education Nutrition BMI for Adults What [...] numbers. This can be done either in [place]ian ([place] or metric measurements. Note that charts and online BMI calculators are available to help you find your BMI quickly and easily without having to do these calculations yourself. To calculate your BMI in [place]ian ([place] measurements: 1. Measure your weight in [...] for Disease Control and Prevention: www.cdc.gov ? [place] Heart Association: www.heart.org ? National Heart, Lung, and Blood [place]: www.nhlbi.nih.gov Summary ? Body mass index (BMI) is a number that is calculated from a person's weight and height. ? BMI may help estimate how much of a person's weight is composed of fat. BMI can help identify those who may be at higher risk for certain medical problems. ? BMI can be measured using Algerian measurements or metric measurements. ? BMI charts are used to identify whether you are underweight, normal weight, overweight, or obese. This information is not intended to replace advice given to you by your health care provider. Make sure you discuss any questions you have with your health care provider. Document Revised: 11/13/2019 Document Reviewed: 09/20/2019 FaceOn Mobile Patient Education ? 2022 [employer].[facility] 09-14-2023 NotePatient Education Mental and [...] pray, or go to a place of pentecostalism. ? Do some deep breathing. To do [...] or salt (sodium). General instructions ? Take msfl-btd-pzagloi and prescription medicines only as told by [...] Mental Health [place]: www.me (more content not included)...[facility]12-05-2023 Evaluation note* Encounter Date Diagnosis Assessment Notes Treatment Notes Treatment Clinical Notes Feb, Fatty liver (ICD-10 - K76.0) Patient advised to make life style modifications-diet/exercise/weight loss. Repeat fibroscan in 1 yr Rto 1 yr [facility] Other 10-10-2023 Evaluation note* Encounter Date Diagnosis Assessment Notes Treatment Notes Treatment Clinical Notes Dec, RUQ pain (ICD-10 - R10.11) [facility] Other 02-17-2021 NoteMR#: [id number] I [facility] Pt. 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 SECONDARY DIAGNOSIS: None. HOSPITAL COURSE: The patient came to the [facility] for left reverse total shoulder arthroplasty [...] Schafer MD Date Trans: 04/22/2020 06:23 P/vicky [id number]_[id number] cc: Amaury Monterroso M.D. [address] [place] [id number] Health Tiffin HospitalEvaluation + Plan note Future Appointments Appointment Date:09/19/2022 10:40:00 AM Scheduled Provider:Yaniv Singh [facility]FM Open Appointment Date:09/14/2023 11:00:00 AM Scheduled Provider: [facility] Future Appointments Appointment Date:09/19/2023 10:00:00 AM Scheduled Provider:Yaniv Singh MD [facility] Type:FM Open Appointment Date:09/09/2024 11:00:00 AM Scheduled [facility] Future Appointments Appointment Date:02/13/2024 10:45:00 AM Scheduled Provider:Yaniv Singh MD Location:[facility] Appointment Type:FM Open Appointment Date:09/09/2024 11:00:00 AM Scheduled Provider: Location:[facility] Appointment Type: Medicare Wellness Subsequent [facility] Evaluation + Plan note Future Appointments Appointment Date:09/09/2024 11:00:00 AM Scheduled Provider: Location:[facility] Appointment Type: Medicare Wellness Subsequent [facility] Evaluation note* Diagnosis Advanced atrophic nonexudative [...] Admit Date Fatty liver acuteFebruary 2024 11:29am [facility] Work Phone: Evaluation note* Diagnosis 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 Pain in right toe(s) documented in this encounter NOMS HealthcareEvaluation note* Diagnosis 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 documented in this encounter NOMS HealthcareHistory general Narrative - Reported* Type Description Date Medical History ASTHMA Medical HistoryVERTIGOMedical HistoryESOPHAGEAL STRICTURESurgical History SHOULDER REPLACEMENTSurgical HistoryCHOLECYSTECOMYHospitalization HistorySEE ABOVE [facility] Other Hospital course Narrative No data available for this section [facility] No data available for this section [facility] HospitalProgress note No data available for this section [facility] HospitalReason for referral (narrative)No reason for referral information availableOhiohealth Grove City [facility] Hospital Work Phone: Summary Purpose Family History [...] 2024 8:00am right [facility] 1:32[facility] Reason for Visit [...] 2024 8:00am [facility]am Status post total replacement of [...] 2024 8:00am right hip osteoarthritis s/p WALLACE [facility] 2024 1:32pm Hip pain November 26, 2024 12:00am right hip osteoarthritis s/p WALLACE [facility] 2024 12:00am Reason for Visit Admit Date Hypertension September 05, 2024 8:33a m Irregular heart beat September 05, 2024 8:33 am Left bundle branch block (LBBB) September 8:33am Primary osteoarthritis of right hip September 05, 2024 8:33am Primary osteoarthritis of right hip [facility]2024 1:56pm Hypertension November 19, 2024 8:00am Impaired mobility and activities of dangelo y living November 19, 2024 8:00am Personal history of poliomyelitis [facility] [place] [place] 2024 8:00am 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, 2024 8:00am Primary osteoarthritis of right hip [facility] 2024 8:00am Status post total replacement of right h ip November 19, 2024 8:00am Hypertension November 25, 2024 1:32pm Impaired mobility and activities of dangelo y living November 25, 2024 1:32pm 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 25, 2024 1:32pm Primary osteoarthritis of right hip [facility] 2024 1:32pm Right hip pain November [...] 2024 8:00am right hip osteoarthritis s/p WALLACE [facility] 2024 1:32pm Hip pain November 26, 2024 12:00am right hip osteoarthritis s/p WALLACE [facility] 2024 12:00am 3 month f/u December 04, 2024 10 :55am Reason for Visit Admit Date Hypertension September 05, 2024 8:33a m Irregular heart beat September 05, 2024 8:33 am Left bundle branch block (LBBB) September 8:33am Primary osteoarthritis of right hip September 05, 2024 8:33am Primary osteoarthritis of right hip [facility]2024 1:56pm Hypertension November 19, 2024 8:00am Personal history of poliomyelitis Sept 2024 8:00am Impaired mobility and activities of dangelo y living November 19, 2024 8:00am 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, 2024 8:00am Primary osteoarthritis of right hip [facility]2024 8:00am Status post total replacement of right h ip November 19, 2024 8:00am Hypertension November 25, 2024 1:32pm Impaired mobility and activities of dangelo y living November 25, 2024 1:32pm 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 25, 2024 1:32pm Primary osteoarthritis of right hip [facility]2024 1:32pm Right hip pain November 25, 2024 [...] 2024 8:00am right hip osteoarthritis s/p WALLACE [facility] 2024 1:32pm Hip pain November 26, 2024 12:00am right hip osteoarthritis s/p WALLACE [facility] 2024 12:00am 3 month f/u December [...] content) DATE CREATED AUTHOR 04/11/2021 [facility] DATE CREATED AUTHOR AUTHOR'S ORGANIZ ATION 07/07/2022 [facility] DATE CREATED AUTHOR AUTHOR'S ORGANIZ ATION 09/22/2023 [facility] DATE CREATED AUTHOR AUTHOR'S ORGANIZ ATION 02/15/2024 [facility] DATE CREATED AUTHOR AUTHOR'S ORGANIZ ATION 08/21/2024 [facility] DATE CREATED AUTHOR AUTHOR'S ORGANIZ ATION 08/23/2024 [facility] DATE CREATED AUTHOR AUTHOR'S ORGANIZ ATION 09/12/2024 [facility] DATE CREATED AUTHOR AUTHOR'S ORGANIZ ATION 11/01/2024 [facility] DATE CREATED AUTHOR AUTHOR'S ORGANIZ ATION 11/02/2024 [facility] DATE CREATED AUTHOR AUTHOR'S ORGANIZ ATION 01/10/2025 [facility] DATE CREATED AUTHOR AUTHOR'S ORGANIZ ATION 01/11/2025 [facility] DATE CREATED AUTHOR AUTHOR'S ORGANIZ ATION 01/17/2025 [facility] Patient Care team informatio n (unrecognized section and content) Team MemberRelationshipSpecialtyStart DateEnd Date Yaniv Singh MD [address] [place] [phone] PCP - GeneralFamily Medicine11/20/23Team MemberRelationshipSpecialtyStart DateEnd Date Yaniv Singh MD [address] [place] [phone] PCP - GeneralFamily Medicine11/20/23Team MemberRelationshipSpecialtyStart DateEnd Date Yaniv Singh MD [address] [place] [phone] PCP - GeneralFamily Medicine11/20/23Team MemberRelationshipSpecialtyStart DateEnd Date Yaniv Singh MD [address] [place] [phone] PCP - GeneralFamily Medicine11/20/23 Team Status: Active [...] April 10, 2024 End: April 10, 2024Imad rTa Vega ProviderActiveStart: April 10, 2024 End: April [...] Yaniv Singh MD [address] [place] [phone] [facility]/20/23Team MemberRelationshipSpecialtyStart DateEnd Date Yaniv Singh MD [address] [place] [phone] PCP - [facility] Medicine11/20/23 Team Status: Inactive Member Role Status Dates Yaniv Singh MD Primary Care Provider Active Start: August 22, 2024 End: August 22, 2024Robfadumo Hernandez II, MDAttending ProviderActiveStart: August 22, 2024 End: August 22, 2024 Team Status: Inactive Member Role Status Dates Yaniv Signh MD Primary Care Provider Active Start: September 05, 2024 End: September 05, 2024Curtis Morales MDAttending ProviderActiveStart: September 05, 2024 End: September 05, 2024 Team Status: Active Member Role Status Dates Yaniv Singh MD Primary Care Provider Active Start: September 05, 2024 Curtis Morales MDAttending ProviderActiveStart: September 05, 2024 Team Status: Active Member Role Status Dates Marlee Malcolm INSURANCE PROCESSOR-C Primary Care Provider Active Team Status: Inactive Member Role Status Dates Rosa M Romano APRN Emergency Provider Active Start: September 05, 2024 End: September 05, 2024Marlee Malcolm , INSURANCE PROCESSOR-CPrimary Care ProviderActiveStart: September 05, 2024 End: September 05, 2024 Team Status: Inactive Member Role Status Dates Marlee Malcolm , INSURANCE PROCESSOR-C Primary Care Provider Active Start: November 01, 2024 End: November 01, 2024Fred Hernandez II, MDAttending ProviderActiveStart: November 01, 2024 End: November 01, 2024 Team Status: Active Member Role Status Dates Marlee Malcolm , INSURANCE PROCESSOR-C Primary Care Provider Active Start: November 07, 2024 Fred Hernandez II, MDAttending ProviderActiveStart: November 07, 2024 Team Status: Inactive Member Role Status Dates Marlee Malcolm , INSURANCE PROCESSOR-C Primary Care Provider Active Start: November 07, 2024 End: November 07, 2024Robfadumo Hernandez II, MDAttending ProviderActiveStart: November 07, 2024 End: November 07, 2024 Team Status: Inactive Member Role Status Dates Marlee Malcolm , INSURANCE PROCESSOR-C Primary Care Provider Active Start: November 08, 2024 End: November 08, 2024Robfadumo Hernandez II, MDAttending ProviderActiveStart: November 08, 2024 End: November 08, 2024 Team Status: Inactive Member Role Status Dates Curtis Morales MD Attending Provider Activ e Start: November 12, 2024 End: November 12, 2024Marlee Malcolm , INSURANCE PROCESSOR-CPrimary Care ProviderActiveStart: November 12, 2024 End: November 12, 2024 Team Status: Active Member Role Status Dates Marlee Malcolm , INSURANCE PROCESSOR-C Primary Care Provider Active Start: November [...] Singh RNOther ProviderActiveStart: November 19, 2024 Tamia Herrno RNOther ProviderActiveStart: November 19, 2024 Nicholas Mckinley [...] ProviderActiveStart: November 19, 2024 Kailee Peterson , INSURANCE PROCESSOR-COther ProviderActiveStart: November 19, 2024 Merlin Swift [...] Active Member Role Status Dates Marlee Malcolm INSURANCE PROCESSOR-C Primary Care Provider Active Start: November [...] ProviderActiveStart: November 25, 2024 Kailee Peterson , INSURANCE PROCESSOR-COther ProviderActiveStart: November 25, 2024 Jacinto Billy [...] Active Member Role Status Dates Marlee Malcolm INSURANCE PROCESSOR-C Primary Care Provider Active Start: November [...] ProviderActiveStart: November 25, 2024 Kailee Peterson , INSURANCE PROCESSOR-COther ProviderActiveStart: November 25, 2024 Merlin Swift [...] Active Member Role Status Dates Marlee Malcolm INSURANCE PROCESSOR-C Primary Care Provider Active Start: November [...] ProviderActiveStart: November 26, 2024 Kailee Peterson , INSURANCE PROCESSOR-COther ProviderActiveStart: November 26, 2024 Merlin Swift [...] Active Member Role Status Dates Marlee Malcolm INSURANCE PROCESSOR-C Primary Care Provider Active Start: December [...] ProviderActiveStart: December 02, 2024 Kailee Peterson , INSURANCE PROCESSOR-COther ProviderActiveStart: December 02, 2024 Merlin Swift , APRNOther ProviderActiveStart: December 02, 2024 Jayson Deal MDOther ProviderActiveStart: December 02, 2024 Tej Rohca MDOther ProviderActiveStart: December 02, 2024 Coleen Torres [...] 04, 2024 End: December 04, 2024Marlee Malcolm NP-CPrvidant [facility] hospitalry Care ProviderActiveStart: December 04, 2024 End: December 04, 2024 Team Status: Inactive Member Role Status Dates Marlee Malcolm INSURANCE PROCESSOR-C Primary Care Provider Active Start: December 06, 2024 End: December 06, 2024Robfadumo Hernandez II MDAttending ProviderActiveStart: December 06, 2024 End: December 06, 2024 Team Status: Active Member Role/Relationship Status Dates Marlee Malcolm INSURANCE PROCESSOR-C Primary Care Provider Active Team Status: Inactive Member Role/Relationship Status Dates Marlee Malcolm INSURANCE PROCESSOR-C Primary Care Provider Active Start: November 01, 2024 End: November 01, 2024Fred Hernandez II MDAttending ProviderActiveStart: November 01, 2024 End: November 01, 2024 Team Status: Active Member Role/Relationship Status Dates Marlee Malcolm INSURANCE PROCESSOR-C Primary Care Provider Active Start: November 07, 2024 Fred Hernandez II, MDAttending ProviderActiveStart: November 07, 2024 Team Status: Inactive Member Role/Relationship Status Dates Marlee Malcolm INSURANCE PROCESSOR-C Primary Care Provider Active Start: November 07, 2024 End: November 07, 2024Fred Hernandez II, MDAttending ProviderActiveStart: November 07, 2024 End: November 07, 2024 Team Status: Inactive Member Role/Relationship Status Dates Marlee Malcolm INSURANCE PROCESSOR-C Primary Care Provider Active Start: November 08, 2024 End: November 08, 2024Robfadumo Hernandez II, MDAttending ProviderActiveStart: November 08, 2024 End: November 08, 2024 Team Status: Inactive Member Role/Relationship Status Dates Curtis Morales MD Attending Provider Activ e Start: November 12, 2024 End: November 12, 2024Marlee Malcolm INSURANCE PROCESSOR-CPrimary Care ProviderActiveStart: November 12, 2024 End: November 12, 2024 Team Status: Active Member Role/Relationship Status Dates Marlee Malcolm INSURANCE PROCESSOR-C Primary Care Provider Active Start: November [...] ProviderActiveStart: November 19, 2024 Kailee Peterson , INSURANCE PROCESSOR-COther ProviderActiveStart: November 19, 2024 Merlin Swift [...] Active Member Role/Relationship Status Dates Marlee Malcolm INSURANCE PROCESSOR-C Primary Care Provider Active Start: November [...] Ksenia Rosario MDOther ProviderActiveStart: November 25, 2024 Jovno Cramer , DOOther ProviderActiveStart: November 25, 2024 Abhishek Ngo MDOther ProviderActiveStart: November 25, 2024 Alexis Dickson MDOther ProviderActiveStart: November 25, 2024 Kailee Peterson , INSURANCE PROCESSOR-COther ProviderActiveStart: November 25, 2024 Merlin Swift [...] Paredes MDOther ProviderActiveStart: November 25, 2024 Dat Borussard MDOther ProviderActiveStart: November 25, 2024 Elina Sepulveda , APRNOther ProviderActiveStart: November 25, 2024 Kb Trevino , APRNOther ProviderActiveStart: November 25, 2024 Sara Liriano MDOther ProviderActiveStart: November 25, 2024 Cinthia Pena , ANNALISEOther ProviderActiveStart: November 25, 2024 Team Status: Active Member Role/Relationship Status Dates Marlee Malcolm , INSURANCE PROCESSOR-C Primary Care Provider Active Start: November [...] ProviderActiveStart: November 26, 2024 Kailee Peterson , INSURANCE PROCESSOR-COther ProviderActiveStart: November 26, 2024 Merlin Swift [...] Member Role/Relationship Status Dates Marlee Malcolm , INSURANCE PROCESSOR-C Primary Care Provider Active Start: December [...] MDOther ProviderActiveStart: December 02, 2024 Kailee Peterson INSURANCE PROCESSOR-COther ProviderActiveStart: December 02, 2024 Merlin Swift [...] 2024 End: December 04, 2024Jovicenta Malcolm , INSURANCE PROCESSOR-CPrimary Care ProviderActiveStart: December 04, 2024 End: December 04, 2024 Team Status: Inactive Member Role/Relationship Status Dates Marlee Malcolm INSURANCE PROCESSOR-C Primary Care Provider Active Start: December 06, 2024 End: December 06, 2024Tra Fagan II ProviderActiveStart: December 06, 2024 End: December 06, 2024 Team Status: Active Member Role/Relationship Status Dates Fred Hernandez II, MD Attending Provider Active Start: January 03, 2025 Marlee Malcolm , INSURANCE PROCESSOR-CPrimary Care ProviderActiveStart: January 03, 2025 Team Status: Inactive Member Role/Relationship Status Dates Marlee Malcolm INSURANCE PROCESSOR-C Primary Care Provider Active Start: January 03, 2025 End: January 03, 2025Vanessa Fagan IIending ProviderActiveStart: January 03, 2025 End: January 03, 2025 Team Status: Inactive Member Role/Relationship Status Dates Fred Hernandez II, MD Attending Provider Active Start: January 03, 2025 End: January 03, 2025Marlee Malcolm , INSURANCE PROCESSOR-CPrimary Care ProviderActiveStart: January 03, 2025 End: January 03, 2025 REASON FOR VISIT (unrecogniz ed section and content) ReasonCommentsAnnual RdybRpling-ybLsbkepSrgkjyfoPmbhay-ddVofqarSxxdujksWpek CallousesRT 5th digit callusReasonCommentsMacular Degeneration Goals (unrecognized [...] BE BASED ON THE PRIMARY CLINICAL RECORDS. [facility]. provides no warranty or guarantee of the accuracy or completeness of information in this document.
--- OUTSIDE RECORDS SUMMARY | 2025-01-31 11:27 | XMS_ITS | Clinical Summary ---
Author Organization [facility] Address [address] [place] [address] Care Team Providers Care Kennel Manager Dog Track Name Role Phone Yaniv Singh MD Primary Care Provider [phone] Allergies Active AllergyReactionsCriticalityNoted DateCommentsAmoxicillin-Pot Clavulanate Hnufunj6508/02/20228039Xqyosahobpc20/30/2023 Other Reaction(s): Unknown Sulfa JcrkhooalyzWndjdnb11/30/7870Mhnkjqfz35/30/2023 Other Reaction(s): Unknown Medications MedicationSigDispense QuantityRefillsLast FilledStart DateEnd DateStatus acetaminophen (Tylenol Extra Strength) 500 MG tablet every 6 (six) hours.Active albuterol HFA (Proventil HFA) 90 mcg/act inhaler 2 puff(s), Inhalation, q4hr, Refill(s) 0, as nvhmzx4007/05/2022ctive aspirin 81 MG chewable tablet Daily.Active aspirin [...] APPLY SMALL AMOUNT 3 TIMES A DAY VGAVMD3107/11/2022ctive digoxin (Lanoxin) 125 MCG tablet digoxin 125 mcg (0.125 mg) lkiblh5407/05/2022ctive famotidine (Pepcid) 40 MG tablet Take 40 mg by mouth.07/05/2022ctive Synthroid 50 MCG tablet Synthroid 50 mcg agxlao7007/05/2022ctive metoprolol succinate XL (Toprol-XL) 25 MG 24 hr tablet metoprolol succinate ER 25 mg tablet,extended release 24 hr07/05/2022ctive metoprolol tartrate (Lopressor) 25 MG tablet 1 (one) time each day at the same time.Active montelukast (Singulair) 10 MG tablet montelukast 10 mg kdmvpl6407/05/2022ctive Multiple Vitamins-Minerals (PreserVision AREDS) tablet OrallyActive prednisoLONE [...] macular degeneration of both eyes with subfoveal xzencuirduw13/17/2023ry eyes 09/19/2022lepharitis of upper and lower eyelids of both eyes09/19/2022 Family History Medical HistoryRelationNameCommentsNo Known ProblemsBrotherNo Known Problems FatherCancerMotherHypertensionMotherNo Known ProblemsSisterRelationNameStatus CommentsBrotherFatherDeceasedMotherDeceasedSister Social History Tobacco UseTypesPacks/DayYears UsedDateSmoking Tobacco: NeverPassive Smoke Exposure: NeverSmokeless Tobacco: Never Tobacco Cessation:Counseling Given: Yes Alcohol UseStandard Drinks/WeekCommentsNever0 (1 standard drink = 0.6 oz pure alcohol)caffeine: 1-2 cups per dayCommentsUnknownSex and Gender InformationValueDate RecordedSex Assigned at XzdplKnakmu89/13/2023 8:12 PM EDT Legal EzmNmzene96/01/2023 8:34 PM EDTGender DentzbgvVhevcu53/13/2023 8:12 PM EDT Sexual OrientationNot on file Last Filed Vital Signs Vital SignReadingTime TakenCommentsBlood Cqrlvbjq222/7204 2:19 PM EDT Xjbxb7004 2:19 PM EDTTemperature--Respiratory Rate--Oxygen Saturation-- Inhaled Oxygen Concentration--Btmmxr95.2 kg (126 lb)06/11/2024 2:19 PM EDTHeight 147.3 cm (4' 10 )06/11/2024 2:19 PM EDTBody Mass Index26.3304 2:19 PM EDT Plan of Treatment DateTypeDepartmentCare Team (Latest Contact Info)Haerdfjdbch23/23/2025 2:45 PM ESTOffice Visit [facility] [address] [place] [address] Shabbir Wills DO [address] [place] [address] Insurance Care Teams Team MemberRelationshipSpecialtyStart DateEnd Date Yaniv Singh MD [address] [place] [address] [facility] [address] [facility]11/20/23
--- OUTSIDE RECORDS SUMMARY | 2025-01-31 11:27 | XMS_ITS | Clinical Summary ---
Author Organization [employer] [facility] tem Address [id number] [address] [place] [address] Care Team Providers Care Academic Associate Name Role Phone Shruthi Monterroso MD Primary Care Provider [phone] Allergies Active AllergyReactionsCriticalityNoted DateCommentsSulfa (Sulfonamide Antibiotics)01/06/2021 Medications [...] Recorded Sex Assigned at BirthNot on fileLegal DgoGhdsrh36/27/2021 1:09 PM EDTGender IdentityNot on fileSexual OrientationNot on file Last Filed Vital Signs Vital SignReadingTime TakenCommentsBlood Sbtkwzmt292/8012 10:05 AM EST Pulse--Qitvycqmrsi07.6 ??C (96 ??F)02/12/2021 10:05 AM ESTRespiratory Rate-- Oxygen Saturation--Inhaled Oxygen Concentration--Lcwkeq18.3 kg (144 lb) 02/12/2021 10:05 AM CRSVqfrvc386.9 cm (4' 11 )02/12/2021 10:05 AM ESTBody Mass Index29.0802/12/2021 10:05 AM EST Plan of Treatment Health MaintenanceDue DateLast DoneCommentsDepression Ljdvxatkh06/19/1951Tobacco Thcmkfxgu80/19/1951DTaP,Tdap and Td Vaccines (1 - Tdap)1957Zoster (Shingles) Vaccine (1 of 2)1988Fall Risk Qmnhffcvh76/19/2004RSV ( or age 60+ yrs) (1 - 1-dose 75+ series)2013COVID-19 Vaccine ( - season)503/04/2020, 04/07/2020Influenza Homhavx69/01/634508/10/2020, 02/01/2019, 01/30/2018, Additional history exists Medical Devices Not on file Insurance Care Teams Team MemberRelationshipSpecialtyStart DateEnd Date Shruthi Monterroso MD PCP - GeneralFamily Twysrbcf48/27/21
--- OUTSIDE RECORDS SUMMARY | 2025-01-31 11:27 | XMS_ITS | Clinical Summary ---
Author Organization [facility] Address [address] [place], [place] [id number] Care Team Providers Care Senior Interaction Designer Name Role Phone Shruthi Monterroso MD Primary Care Provider [phone] Social History Tobacco UseTypesPacks/DayYears UsedDateSmoking Tobacco: Never Assessed CommentsUnknownSex and Gender InformationValueDate RecordedSex Assigned at Not on fileLegal QrvFuwiqf24/02/2012 8:46 AM ESTGender IdentityNot on fileSexual OrientationNot on file Plan of Treatment Not on file Insurance Care Teams Team MemberRelationshipSpecialtyStart DateEnd Shruthi Monterroso MD [address] [facility] [place] [address] PCP - GeneralFamily Smlalbjk04/27/15
--- OUTSIDE RECORDS SUMMARY | 2025-01-31 11:27 | XMS_ITS | Clinical Summary ---
Author Organization [facility] Address [address] [place] [address] Care Team Providers Care Body Liner Name Role Phone Maricruz Alvarado [facility] BAILIFF Primary Care Provider [phone] Allergies Active AllergyReactionsCriticalityNoted DateCommentsAmoxicillin-Pot Clavulanate Czvyhvt0608/02/20221562PcsrpekykabKbzkcuu04/30/2023 Other Reaction(s): Unknown Sulfa (Sulfonamide Antibiotics)Oqxdynf2301/06/20216818PdcqkpyrGkimfwv01/30/2023 Other Reaction(s): Unknown Medications MedicationSigDispense QuantityRefillsLast FilledStart [...] as directed.07/10/2018Active Active Problems ProblemNoted DateDiagnosed DateAcute URI11/30/20236443Oriqhsibwtv48/26/2024erumen soazkcobk15/26/1638Tinhx62/26/4425Zjhxmklcf87/26/2024Knee pain, left11/30/2023 Left sciatic nerve pain11/30/2023Nasal iedwdhkqcl39/26/2024ge-related osteoporosis without current pathological lkeunxfq07llergic wiljtdob10iverticular yfgvhdb72yspnea Heart pxktiv29 Overview (10/20/2022): bicuspid aortic valve Vasqqlnlgbothcrbhsin43/17/202308/17/6842Qdauoymgzvtf80 Axaztehvxtxurn40LabyrinthitisLeft bundle branch blockNon-seasonal allergic rhinitis due to pollen Osteoarthritis of hipOsteoporosis Over mdyodr97Restless legs syndrome Right upper quadrant painSteatosis of liverLumbar vndkvvffihq02dvanced atrophic nonexudative age-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 adwqcfpulhe58lepharitis of upper and lower eyelids of both [...] heating?Not hard at all04/10/2023HQ-2AnswerDate RecordedPatient Health Questionnaire-2 Zjbsy615UT Safety & EnvironmentAnswerDate RecordedWithin the last year, [...] 04/10/2023CommentsUnknownSex and Gender InformationValueDate RecordedSex Assigned at QiunnJnmpes83/12/2025 2:54 PM EDTLegal LmsCwrjqz79/29/2022 11:37 PM EDTGender JzceyrtoCqmjsu56/12/2025 2:54 PM EDTSexual OrientationHeterosexual or Xirkjygl34/12/2025 2:54 PM EDT Last Filed Vital Signs Vital SignReadingTime TakenCommentsBlood Htuwybsn276/7805 9:45 AM EDT Jpsqn527907/24/2024 9:45 AM EDTTemperature--Respiratory Zjxo2500 1:05 PM EDTOxygen Rpntaqrcmw27%11/30/2023 2:56 PM EDTInhaled Oxygen Concentration-- Dzyavx93.7 kg (125 lb)07/24/2024 9:45 AM AWPCvhhiy962.9 cm (4' 11 )07/24/2024 9:45 AM EDTBody Mass Index25.25007/24/2024 9:45 AM EDT Plan of Treatment Health MaintenanceDue DateLast DoneCommentsMedicare Annual Wellness (AWV) 9Adult Ilzujws9503/24/1960Zoster Vaccines (1 of 2)1988COVID-19 Vaccine ( season), 03/17/2021, 05/05/2020, Additional history existsInfluenza Vaccine (#1)5103/24/2023, 12/14/2022, 12/27/2021, Additional history existsDepression Bzfpmsvww39/ Fall Risk Xuwmioomf08Pneumococcal Vaccine: 50+ YearsCompleted 09/11/2020, 09/12/2019HIB VaccinesAged OutNo [...] MemberRelationshipSpecialtyStart DateEnd Date Maricruz Alvarado FNP [address] [place] [id number] PCP - GeneralNurse Practitioner11/01/24
[2025-01-31 12:24] LABS: Hematocrit 30.2 % (36.0-48.0); Hemoglobin 9.5 g/dL (12.0-16.0); Immature Granulocytes Abs Auto 0.02 10^3/uL (0.00-0.03); Immature Granulocytes Pct Auto 0.3 % (0.0-0.5); Lymphocytes Absolute Auto 1.9 10^3/uL (1.2-3.8); Mean Corpuscular HGB Conc 31.5 g/dL (29.9-35.2); Mean Corpuscular Hemoglobin 27.2 pg (26.7-34.0); Mean Corpuscular Volume 86.5 fL (81.0-99.0); Platelet Count 248 10^3/uL (150-450); Red Blood Count 3.49 10^6/uL (4.20-5.40); Reticulocyte Pct Auto 2.65 % (0.60-3.10)
[2025-01-31 12:25] LABS: White Blood Count 5.9 10^3/uL (4.0-11.0)
[2025-01-31 12:42] LABS: Iron 40.0 ug/dL (50.0-170.0); Percent Iron Saturation 9.9 %; Total Iron Binding Capacity 405.0 ug/dL (250.0-450.0)
[2025-01-31 12:58] LABS: Ferritin 15.0 ng/mL (8.0-252.0); Folate 20.70 ng/mL (8.60-58.90)
[2025-02-01 05:14] LABS: Vitamin B12 530 pg/mL (232-1245)
[2025-02-01 07:07] LABS: Transferrin 322 mg/dL (149-313)
== END 2025-01-31 11:17 | disposition home or self-care (01) ==
LOC: LAB 11:22
PROVIDERS: Visit Provider Student in an Organized Health Care Education/Training Program
DX: R06.09 Other forms of dyspnea (principal); R42 Dizziness and giddiness; D64.9 Anemia, unspecified
CPT/HCPCS: 36415; 82607; 82728; 82746; 83010; 83540; 83550; 83615; 84466; 85025; 85045

== ENCOUNTER 2025-02-26 10:18 | Outpatient (OUT) | payer MEDICARE, SELFPAY ==
--- OUTSIDE RECORDS SUMMARY | 2025-02-25 14:45 | XMS_ITS | Encounter Summary ---
Author Organization [facility] Address [address] [place] [address] Care Team Providers Care Unemployment Examiner Name Role Phone Stew Cottrell DO Primary Care Provider [phone] Reason for Visit * ReasonCommentsMacular Degeneration Encounter Details DateTypeDepartmentCare Team (Latest Contact Info)Kdpxbpjnkbc37/23/2025 2:45 PM ESTOffice Visit 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 (Primary Dx); Dry eyes; Blepharitis of upper and lower eyelids of both eyes, unspecified type Social History Tobacco UseTypesPacks/DayYears UsedDateSmoking Tobacco: NeverPassive Smoke Exposure: NeverSmokeless Tobacco: NeverAlcohol UseStandard Drinks/WeekComments Never0 (1 standard drink = 0.6 oz pure alcohol)caffeine: 1-2 cups per day CommentsUnknownSex and Gender InformationValueDate RecordedSex Assigned at KqtteHlhagd05/13/2023 8:12 PM EDTLegal ZgaGeszaj08/01/2023 8:34 PM EDTGender LvmltmrrBqvdoj38/13/2023 8:12 PM EDTSexual OrientationNot on filedocumented as of this encounter Progress Notes * Shabbir Wills DO - 02/25/2025 2:45 PM EST Images from the original note [...] scrubs were recommended. documented in this encounter Plan of Treatment DateTypeDepartmentCare Team (Latest Contact Info)Nygtyykkkab19/22/2026 11:15 AM EDTOffice Visit 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 Scan locations included subfoveal. Progression has been stable. Findings include abnormal foveal contour, pigment epithelial detachment. Left Eye Quality was good. Scan locations included subfoveal. Progression has been stable. Findings include abnormal foveal contour, pigment epithelial detachment. 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
--- OUTSIDE RECORDS SUMMARY | 2025-02-26 10:21 | XMS_ITS | Clinical Summary ---
Author Organization [facility] Address [address] [place] [address] Care Team Providers Care Airplane Tester Name Role Phone Stew Cottrell DO Primary Care Provider [phone] Allergies Active AllergyReactionsCriticalityNoted DateCommentsAmoxicillin-Pot Clavulanate Ohapnzu0208/02/20221510Mkppcyqcqhx54/30/2023 Other Reaction(s): Unknown Sulfa PnwwwgdqffmJbgwvwn42/30/2740Etskgkum18/30/2023 Other Reaction(s): Unknown Medications MedicationSigDispense QuantityRefillsLast FilledStart DateEnd DateStatus acetaminophen (Tylenol Extra Strength) 500 MG tablet every 6 (six) hours.Active albuterol HFA (Proventil HFA) 90 mcg/act inhaler 2 puff(s), Inhalation, q4hr, Refill(s) 0, as iboymi5607/05/2022ctive aspirin 81 MG chewable tablet Daily.Active aspirin [...] APPLY SMALL AMOUNT 3 TIMES A DAY MVOLEQ9907/11/2022ctive digoxin (Lanoxin) 125 MCG tablet digoxin 125 mcg (0.125 mg) ewwvvt7507/05/2022ctive famotidine (Pepcid) 40 MG tablet Take 40 mg by mouth.07/05/2022ctive Synthroid 50 MCG tablet Synthroid 50 mcg bqsgtt6307/05/2022ctive metoprolol succinate XL (Toprol-XL) 25 MG 24 hr tablet metoprolol succinate ER 25 mg tablet,extended release 24 hr07/05/2022ctive metoprolol tartrate (Lopressor) 25 MG tablet 1 (one) time each day at the same time.Active montelukast (Singulair) 10 MG tablet montelukast 10 mg tbknjo6207/05/2022ctive Multiple Vitamins-Minerals (PreserVision AREDS) tablet OrallyActive prednisoLONE [...] macular degeneration of both eyes with subfoveal yrtcanwrxrl13/17/2023ry eyes 09/19/2022lepharitis of upper and lower eyelids of both eyes09/19/2022 Encounters DateTypeDepartmentCare GacyLlhfmoeunqz42/23/2025 2:45 PM ESTOffice Visit [facility] [address] [place] [address] Shabbir Wills DO 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 (Primary Dx); Dry eyes; Blepharitis of upper and lower eyelids of both eyes, unspecified type02/25/2025 Bamboo flowsheet [facility] [address] [place] [address] Shabbir Wills, 02/25/2025Travelfrom Last 3 Months Family History Medical HistoryRelationNameCommentsNo Known ProblemsBrotherNo Known Problems FatherCancerMotherHypertensionMotherNo Known ProblemsSisterRelationNameStatus CommentsBrotherFatherDeceasedMotherDeceasedSister Social History Tobacco UseTypesPacks/DayYears UsedDateSmoking Tobacco: NeverPassive Smoke Exposure: NeverSmokeless Tobacco: Never Tobacco Cessation:Counseling Given: Yes Alcohol UseStandard Drinks/WeekCommentsNever0 (1 standard drink = 0.6 oz pure alcohol)caffeine: 1-2 cups per dayCommentsUnknownSex and Gender InformationValueDate RecordedSex Assigned at MtqvdDyciii73/13/2023 8:12 PM EDT Legal VyeUhbvki29/01/2023 8:34 PM EDTGender ItcmpgdnGemvxr36/13/2023 8:12 PM EDT Sexual OrientationNot on file Last Filed Vital Signs Vital SignReadingTime TakenCommentsBlood Fumnoeyn648/7204 2:19 PM EDT Irvmu562406/11/2024 2:19 PM EDTTemperature--Respiratory Rate--Oxygen Saturation-- Inhaled Oxygen Concentration--Delzgu73.2 kg (126 lb)06/11/2024 2:19 PM EDTHeight 147.3 cm (4' 10 )06/11/2024 2:19 PM EDTBody Mass Index26.3304 2:19 PM EDT Plan of Treatment DateTypeDepartmentCare Team (Latest Contact Info)Uluhhzawguw22/22/2026 11:15 AM EDTOffice Visit [facility] [address] [place] [address] Shabbir Wills, DO [address] [place] [address] Procedures Procedure NamePriorityDate/TimeAssociated DiagnosisCommentsOCT, RETINA - OU - BOTH XZLKZwmkcfb69/23/2025 3:47 PM EST 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 [...] contour, pigment epithelial detachment. Authorizing ProviderResult TypeResult StatusJonatdalton Wills DOOPHTH TOMOGRAPHY Final Result from Last 3 Months Insurance Care Teams Team MemberRelationshipSpecialtyStart DateEnd Date Stew Cottrell DO [address] [place] [address] [address] [place] [address] PCP - GeneralInternal Ckdejeol16/23/25
--- OUTSIDE RECORDS SUMMARY | 2025-02-26 10:21 | XMS_ITS | Encounter Summary ---
Author Organization [facility] Address [address] [place] [address] Care Team Providers Care Homemaker Companion Name Role Phone Stew Cottrell DO Primary Care Provider [phone] Encounter Details DateTypeDepartmentCare Team (Latest Contact Info)Yybctrateai00/23/2025amboo flowsheet [facility] [address] [place] [address] Shabbir Wills DO [address] [place] [address] Social History Tobacco UseTypesPacks/DayYears UsedDateSmoking Tobacco: NeverPassive Smoke Exposure: NeverSmokeless Tobacco: NeverAlcohol UseStandard Drinks/WeekComments Never0 (1 standard drink = 0.6 oz pure alcohol)caffeine: 1-2 cups per day CommentsUnknownSex and Gender InformationValueDate RecordedSex Assigned at MenpdBktvyd13/13/2023 8:12 PM EDTLegal QwwVecvos49/01/2023 8:34 PM EDTGender WdypfzwjGuzwxe90/13/2023 8:12 PM EDTSexual OrientationNot on filedocumented as of this encounter Plan of Treatment DateTypeDepartmentCare Team (Latest Contact Info)Miiwesrxuyx28/22/2026 11:15 AM EDTOffice Visit [facility] [address] [place] [address] Shabbir Wills DO [address] [place] [address] documented as of this encounter Visit Diagnoses Not on filedocumented in this encounter Care Teams Team MemberRelationshipSpecialtyStart DateEnd Date Stew Cottrell DO [facility] [address] [place] [address] PCP - GeneralInternal Pgxfcmic89/23/25documented as of this encounter
--- OUTSIDE RECORDS SUMMARY | 2025-02-26 10:21 | XMS_ITS | Encounter Summary ---
Author Organization [facility] Address [address] [place] [address] Care Team Providers Care Concrete Mixer Operator Name Role Phone Stew Cottrell DO Primary Care Provider [phone] Encounter Details DateTypeDepartmentCare Team (Latest Contact Info)Ykpxdunvalh96/23/2025Travel Social History Tobacco UseTypesPacks/DayYears UsedDateSmoking Tobacco: NeverPassive Smoke Exposure: NeverSmokeless Tobacco: NeverAlcohol UseStandard Drinks/WeekComments Never0 (1 standard drink = 0.6 oz pure alcohol)caffeine: 1-2 cups per day CommentsUnknownSex and Gender InformationValueDate RecordedSex Assigned at YtjwuHngucj18/13/2023 8:12 PM EDTLegal VleDdfeey04/01/2023 8:34 PM EDTGender MkpzymngWevxuu91/13/2023 8:12 PM EDTSexual OrientationNot on filedocumented as of this encounter Plan of Treatment DateTypeDepartmentCare Team (Latest Contact Info)Kmstoxiljjt15/22/2026 11:15 AM EDTOffice Visit [facility] [address] [place] [address] Shabbir Wills DO [address] [place] [address] documented as of this encounter Visit Diagnoses Not on filedocumented in this encounter Care Teams Team MemberRelationshipSpecialtyStart DateEnd Date Stew Cottrell DO [address] [place] [address] [address] [place] [id number] PCP - GeneralInternal Nmfgwysu75/23/25documented as of this encounter
--- OUTSIDE RECORDS SUMMARY | 2025-02-26 10:21 | XMS_ITS | Clinical Summary ---
Author Organization [facility] Address [address] [place] [address] Care Team Providers Care Industrial Roof Plumber Name Role Phone Maricruz Alvarado MACHINIST [employer] Primary Care Provider [phone] Allergies Active AllergyReactionsCriticalityNoted DateCommentsAmoxicillin-Pot Clavulanate Udedazf5608/02/20225464KpvwwrhbnjdEchznjf80/30/2023 Other Reaction(s): Unknown Sulfa (Sulfonamide Antibiotics)Wugszcl2801/06/20217954KmjnugdvMpxhoss52/30/2023 Other Reaction(s): Unknown Medications MedicationSigDispense QuantityRefillsLast FilledStart [...] as directed.07/10/2018Active Active Problems ProblemNoted DateDiagnosed DateAcute URI11/30/20235456Kgiurkdnddg38/26/2024erumen jyxvuxvke07/26/4075Kvlhd45/26/9809Wbwapjwjr99/26/2024Knee pain, left11/30/2023 Left sciatic nerve pain11/30/2023Nasal qtfnyhqqth87/26/2024ge-related osteoporosis without current pathological qxuzmxyg70llergic qosbxsfd23iverticular ialkspl63yspnea Heart gpnlit04 Overview (10/20/2022): bicuspid aortic valve Hqxdorwjvjwgdjcviwpd02/17/202308/17/7121Yeohglqqrbej72 Orluicgqkefvfx96LabyrinthitisLeft bundle branch blockNon-seasonal allergic rhinitis due to pollen Osteoarthritis of hipOsteoporosis Over ipnhdl94Restless legs syndrome Right upper quadrant painSteatosis of liverLumbar dlgkizqxxlo23dvanced atrophic nonexudative age-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 glkmarqbhpz33lepharitis of upper and lower eyelids of both [...] heating?Not hard at all04/10/2023HQ-2AnswerDate RecordedPatient Health Questionnaire-2 Nfvby754UT Safety & EnvironmentAnswerDate RecordedWithin the last year, [...] 04/10/2023CommentsUnknownSex and Gender InformationValueDate RecordedSex Assigned at FydzkEallqr75/12/2025 2:54 PM EDTLegal FxwDmkejo40/29/2022 11:37 PM EDTGender RijontrsBwzwkc32/12/2025 2:54 PM EDTSexual OrientationHeterosexual or Aqapadgn97/12/2025 2:54 PM EDT Last Filed Vital Signs Vital SignReadingTime TakenCommentsBlood Exfzhefy907/7805 9:45 AM EDT Ctcpo406907/24/2024 9:45 AM EDTTemperature--Respiratory Hohr5876 1:05 PM EDTOxygen Sbwgerejkb57%11/30/2023 2:56 PM EDTInhaled Oxygen Concentration-- Diisoo05.7 kg (125 lb)07/24/2024 9:45 AM WGLPktuts102.9 cm (4' 11 )07/24/2024 9:45 AM EDTBody Mass Index25.25007/24/2024 9:45 AM EDT Plan of Treatment Health MaintenanceDue DateLast DoneCommentsMedicare Annual Wellness (AWV) 9Adult Smxdssb0103/24/1960Zoster Vaccines (1 of 2)1988COVID-19 Vaccine ( season), 03/17/2021, 05/05/2020, Additional history existsInfluenza Vaccine (#1)5103/24/2023, 12/14/2022, 12/27/2021, Additional history existsDepression Simopxiqc98/ Fall Risk Jxirxmgvv97Pneumococcal Vaccine: 50+ YearsCompleted 09/11/2020, 09/12/2019HIB VaccinesAged OutNo [...] MemberRelationshipSpecialtyStart DateEnd Date Maricruz Alvarado FNP [address] [place] [id number] PCP - GeneralNurse Practitioner11/01/24
--- OUTSIDE RECORDS SUMMARY | 2025-02-26 10:21 | XMS_ITS | Clinical Summary ---
Author Organization [facility] Address [address] [place], [place] [address] Care Team Providers Care Box Maker Paperboard Name Role Phone Shruthi Monterroso MD Primary Care Provider [phone] Social History Tobacco UseTypesPacks/DayYears UsedDateSmoking Tobacco: Never Assessed CommentsUnknownSex and Gender InformationValueDate RecordedSex Assigned at Not on fileLegal VvpQiuonl18/02/2012 8:46 AM ESTGender IdentityNot on fileSexual OrientationNot on file Plan of Treatment Not on file Insurance Care Teams Team MemberRelationshipSpecialtyStart DateEnd Shruthi Monterroso MD [address] [place] [address] PCP - GeneralFamily Erjdorps77/27/15
--- OUTSIDE RECORDS SUMMARY | 2025-02-26 10:21 | XMS_ITS | Clinical Summary ---
Author Organization [facility] Address [id number] [address] [place] [address] Care Team Providers Care Cut Off Operator Scorer Name Role Phone Shruthi Monterroso MD Primary Care Provider [phone] Allergies Active AllergyReactionsCriticalityNoted DateCommentsSulfa (Sulfonamide Antibiotics)01/06/2021 Medications [...] Recorded Sex Assigned at BirthNot on fileLegal LpfGxxmiv68/27/2021 1:09 PM EDTGender IdentityNot on fileSexual OrientationNot on file Last Filed Vital Signs Vital SignReadingTime TakenCommentsBlood Hunxpmpt732/8012 10:05 AM EST Pulse--Hifprxgxgci71.6 ??C (96 ??F)02/12/2021 10:05 AM ESTRespiratory Rate-- Oxygen Saturation--Inhaled Oxygen Concentration--Iebjdo15.3 kg (144 lb) 02/12/2021 10:05 AM UECUquowb692.9 cm (4' 11 )02/12/2021 10:05 AM ESTBody Mass Index29.0802/12/2021 10:05 AM EST Plan of Treatment Health MaintenanceDue DateLast DoneCommentsDepression Wbdsdyamz31/19/1951Tobacco Bzvaqwtbg68/19/1951DTaP,Tdap and Td Vaccines (1 - Tdap)1957Zoster (Shingles) Vaccine (1 of 2)1988Fall Risk Ssohquoqa53/19/2004RSV ( or age 60+ yrs) (1 - 1-dose 75+ series)2013COVID-19 Vaccine ( - season)503/04/2020, 04/07/2020Influenza Zlxthhb42/01/141592/10/2020, 02/01/2019, 01/30/2018, Additional history exists Medical Devices Not on file Insurance Care Teams Team MemberRelationshipSpecialtyStart DateEnd Date Shruthi Monterroso MD PCP - GeneralFamily Bncvyetx77/27/21
== END 2025-02-26 10:19 | disposition home or self-care (01) ==
LOC: WC 10:19
PROVIDERS: Visit Provider Physician Assistant
DX: L84 Corns and callosities (principal); I73.89 Other specified peripheral vascular diseases
CPT/HCPCS: G0463